=== PATIENT | female | born 1955 | race Caucasian/White ===

== ENCOUNTER 2020-06-08 19:24 | Observation (INO) | payer SELFPAY ==
--- OUTSIDE RECORDS SUMMARY | 2020-06-08 19:26 | XMS REPORT | Continuity of Care Document ---
:1955 Author Organization [facility] t Address [address] [place] [address] Care Team Providers Name Role Phone Doctor Unassigned, Name Attending Clinician Unavailable Filippo Attending Clinician Clifford Mike MD Attending Clinician Meghan Ochoa MD Attending Clinician [phone] Emily Hong DO Attending Clinician Artie Echeverria Admitting Clinician Problems This patient has no known problems. Allergies, Adverse Reactions, Alerts This patient has no known allergies or adverse reactions. Medications This patient has no known medications. Procedures This patient has no known procedures. Encounters Start End Encounter Admission Attending Care Care Encounter Source Date/Time Date/Time Type Type Clinicians Facility Department ID 2020-01-17 2020-01-17 Orders Doctor NICHOLE [id number] 00:00:00 00:00:00 Only Unassigned, ASHLEY [id number] [place] [facility] [id number] 2020-01-01 2020-01-01 Transition Ree Barkley [id number] 00:00:00 00:00:00 of Care Sarah Carvalho [id number] [place] [id number] 2019-12-27 2019-12-30 [facility] Tangela Mike [id number] 18:54:00 14:13:00 Encounter Lexy Ochoa [id number] [facility] [id number] 2019-07-27 2019-07-27 Emergency [facility] [id number] 16:26:45 18:20:00 Soila Espinosa [id number] [place] [id number] [place] [id number] Results This patient has no known results.
[2020-06-08] MEDS ORDERED: ALBUTEROL 2.5 MG/3 ML NEB SOL ONE (20:13)
[2020-06-08] MEDS ORDERED: IPRATROPIUM BROM 0.5MG/2.5ML ONE (20:13)
[2020-06-08] MEDS ORDERED: METHYLPREDNISOLONE 125 MG INJ ONE (20:14)
[2020-06-08 20:17] LABS: Arterial Blood Carboxyhemoglob 6.1 % (0-1.5); Blood Gas Oxyhemoglobin 84.1 % (94-97); Blood O2 Saturation 90.5 % (92-98.5)
--- NOTE | 2020-06-08 20:18 | RAD REPORT ---
EXAM DESCRIPTION: RAD - Chest Single View - 06/08/2020 8:05 pm CLINICAL HISTORY: SOB COMPARISON: Portable January 2017 TECHNIQUE: AP portable chest image was obtained 06/08/2020 8:05 pm . FINDINGS: Fibrotic lung changes are present similar to comparison. No dense mass or consolidations s een. Severity chronic disease could mask a mild edema or infiltrate. No failure or volume overload. Heart and vasculature are normal. No pneumothorax present. Costophrenic angle blunting is present si milar to comparison. Minimal pleural effusion could be masked by the chronic pleural disease. No acut e bony abnormality seen. No acute aortic findings suspected. IMPRESSION: COPD changes are present not substantially different from 2017. Severity of chronic disease could mask early interstitial edema or infiltrate. Minimal pleural effusi ons could also be masked.
[2020-06-08 20:28] LABS: Basophils % 0.4 % (0-1.3); Hematocrit 44.2 % (36.0-45.0); Lymphocytes % 26.3 % (15.3-44.8); MPV 8.1 fL (7.6-11.3); RBC Red Blood Cell Count 4.77 M/uL (3.86-4.86)
[2020-06-08 20:43] LABS: ALT/SGPT 44 U/L (12-78); AST/SGOT 35 U/L (15-37); Albumin 3.6 g/dL (3.4-5.0); Alkaline Phosphatase 74 U/L (45-117); BUN Blood Urea Nitrogen 16 mg/dL (7-18); Bicarbonate 31 mmol/L (21-32); Bilirubin Direct < 0.1 mg/dL (0-0.2); Bilirubin Total 0.3 mg/dL (0.2-1.0); Glucose Level 102 mg/dL (74-106); Magnesium 2.2 mg/dL (1.8-2.4); NT PRO-BNP 750 pg/mL (<125); Potassium 4.1 mmol/L (3.5-5.1); Protein, Total 7.1 g/dL (6.4-8.2); Sodium Level 143 mmol/L (136-145); Troponin (Emerg Dept Use Only) < 0.02 ng/mL (0.0-0.045)
[2020-06-08 21:00] LABS: Protime INR 0.99
--- NOTE | 2020-06-08 21:04 | ER ---
Nurse's Notes [facility] Name: Dalia Reyes Age: 64 yrs Sex: Female : 1955 Arrival Date: 06/08/2020 Time: 19:28 Bed 6 Private MD: Diagnosis: COPD Exacerbation;Hypoxemia Presentation: 06/08 19:28 Chief complaint: EMS states: Called for shortness of breath for the past few days, no lp1 relief with breathing treatments at home, per family pulse ox of 66% prior to EMS arrival; EMS administered albuterol/atrovent tx x3, Solu-Medrol 125mg IV with relief. Coronavirus screen: Client denies travel out of the [place] in the last 14 days. At this time, the client does not indicate any symptoms associated with coronavirus-19. Ebola Screen: No symptoms or risks identified at this time. Initial Sepsis Screen: Does the patient meet any 2 criteria? No. Patient's initial sepsis screen is negative. Does the patient have a suspected source of infection? No. Patient's initial sepsis screen is negative. Risk Assessment: Do you want to hurt yourself or someone else? Patient reports no desire to harm self or others. Note Patient is O2 dependent. Onset of symptoms was June 08, 2020. Care prior to arrival: IV initiated. 22 GA, in the right wrist, Med neb given. Oxygen administered. via a nebulizer mask. 19:28 Method Of Arrival: EMS: [facility] 19:28 Acuity: CONSTANTINO 3 lp1 Triage Assessment: 19:52 General: Appears uncomfortable. Respiratory: Reports shortness of breath the patient ea has mild shortness of breath. 21:18 Respiratory: Onset: The symptoms/episode began/occurred. ca1 Historical: - Allergies: 19:32 No Known Allergies; lp1 - Home Meds: 19:32 Albuterol Inhl [Active]; lp1 - PMHx: 19:32 COPD; Hypertension; lp1 - PSHx: 19:32 Heart stents; lp1 - Immunization history:: Adult Immunizations up to date. - Social history:: Smoking status: Patient reports the use of cigarette tobacco products, smokes two packs cigarettes per day. Screenin:50 Abuse screen: Denies threats or abuse. Nutritional screening: No deficits noted. ea Tuberculosis screening: No symptoms or risk factors identified. Fall Risk IV access (20 points). Assessment: 19:51 General: Appears in no apparent distress. Behavior is calm, cooperative, appropriate ea for age. Pain: Denies pain. Neuro: Level of Consciousness is awake, alert, obeys commands, Oriented to person, place, time. Cardiovascular: Patient's skin is warm and dry. Respiratory: Airway is patent Respiratory effort is even, labored, Respiratory pattern is regular, symmetrical. Derm: Skin is pink, warm \T\ dry. 21:14 Reassessment: Patient appears in no apparent distress at this time. Patient and/or ca1 family updated on plan of care and expected duration. Pain level reassessed. Patient is alert, oriented x 3, equal unlabored respirations, skin warm/dry/pink. Cardiovascular: Rhythm is sinus rhythm. Respiratory: Breath sounds with wheezes bilaterally. 22:44 Reassessment: Patient and/or family updated on plan of care and expected duration. Pain ea level reassessed. Patient is alert, oriented x 3, equal unlabored respirations, skin warm/dry/pink. Pt admitted to fourth floor, pt left ED via stretcher per tech with O2 per nasal cannula , pt tolerating well. Vital Signs: 19:28 BP 141 / 77; Pulse 95; Resp 20; Temp 97.7(O); Pulse Ox 95% on 2 lpm NC; Weight 63.5 kg lp1 (R); 21:00 BP 134 / 88; Pulse 73; Resp 15 S; Pulse Ox 96% on 2 lpm NC; ca1 22:30 BP 107 / 61; Pulse 68; Resp 20; Temp 97.8; Pulse Ox 92% on 2 lpm NC; ea ED Course: 19:28 Patient arrived in ED. lp1 19:30 Wilfred Navarrete MD is Attending Physician. mh7 19:31 Triage completed. lp1 19:32 Arm band placed on. lp1 19:35 Maintain EMS IV. Dressing intact. Good blood return noted. Site clean \T\ dry. Gauge \T\ ca 1 site: 22G RFA. 19:50 Caitlyn Long RN is Primary Nurse. ea 19:51 Patient has correct armband on for positive identification. Placed in gown. Bed in low ea position. Call light in reach. Side rails up X2. 20:00 Initial lab(s) drawn, by me, sent to lab. ca1 20:03 XRAY Chest (1 view) In Process Unspecified. EDMS 21:03 Nate Sterling DO is Hospitalizing Provider. [facility] 21:59 No provider procedures requiring assistance completed. Patient admitted, IV remains in ea place. Administered Medications: 20:01 Drug: SOLU-Medrol (methylPrednisoLONE) 125 mg Route: IVP; Site: right forearm; ea 21:52 Follow up: Response: No adverse reaction; Marked relief of symptoms ca1 20:09 Drug: Albuterol - atroVENT (ipratropium) (3:1) (2.5 mg - 0.5 mg) 3 ml Route: Nebulizer; ea 21:52 Follow up: Response: No adverse reaction; Marked relief of symptoms ca1 20:58 Drug: Nicoderm CQ 21 mg/24 hr 1 patches Route: Transdermal; Site: affected area; ea 21:52 Follow up: Response: No adverse reaction ca1 21:06 Drug: Magnesium Sulfate 1 grams Route: IVPB; Infused Over: 1 hrs; Site: right forearm; rr5 Outcome: 21:04 Decision to Hospitalize by Provider. [facility] 21:59 Instructed on the need for admit. ea 22:43 Admitted to Med/surg accompanied by tech, room 423, with oxygen, with chart, Report rr5 called to Receiving nurse on fourth floor 22:43 Condition: stable 22:45 Patient left the ED. ea Signatures: Dispatcher [employer] EDMS Alma Delia Birch RN RN lp1 Caitlyn Long RN RN ea Roque, Raymond, RN RN rr5 Dinah Portillo RN RN ca1 Holmes, Maurice, MD MD 7
--- NOTE | 2020-06-08 21:04 | EDPHYS ---
Physician Documentation [facility] Name: Dalia Reyes Age: 64 yrs Sex: Female : 1955 Arrival Date: 06/08/2020 Time: 19:28 Bed 6 Private MD: ED Physician Wilfred Navarrete HPI: 06/08 19:52 This 64 yrs old Female presents to ER via EMS with complaints of Shortness Of mh7 Breath. 19:52 The patient has shortness of breath at rest, with light activity. Onset: The mh7 symptoms/episode began/occurred 3 day(s) ago. Duration: The symptoms are continuous, and are steadily getting worse. The patient's shortness of breath is aggravated by coughing, light activity, is alleviated by nebulizer treatment, application of supplemental oxygen. Associated signs and symptoms: Pertinent positives: chest pain, productive cough, Pertinent negatives: non-productive cough, diaphoresis, dizziness, fever, hemoptysis, loss of consciousness, nausea, numbness in extremities, visual changes, vomiting. Severity of symptoms: At their worst the symptoms were moderate last night, in the emergency department the symptoms are unchanged. Historical: - Allergies: 19:32 No Known Allergies; lp1 - Home Meds: 19:32 Albuterol Inhl [Active]; lp1 - PMHx: 19:32 COPD; Hypertension; lp1 - PSHx: 19:32 Heart stents; lp1 - Immunization history:: Adult Immunizations up to date. - Social history:: Smoking status: Patient reports the use of cigarette tobacco products, smokes two packs cigarettes per day. ROS: 19:52 Constitutional: Negative for fever, chills, and weight loss, Eyes: Negative for injury, mh7 pain, redness, and discharge, ENT: Negative for injury, pain, and discharge, Neck: Negative for injury, pain, and swelling, Abdomen/GI: Negative for abdominal pain, nausea, vomiting, diarrhea, and constipation, Back: Negative for injury and pain, : Negative for injury, bleeding, discharge, and swelling, MS/Extremity: Negative for injury and deformity, Skin: Negative for injury, rash, and discoloration, Neuro: Negative for headache, weakness, numbness, tingling, and seizure, Psych: Negative for depression, anxiety, suicide ideation, homicidal ideation, and hallucinations, Allergy/Immunology: Negative for hives, rash, and allergies, Endocrine: Negative for neck swelling, polydipsia, polyuria, polyphagia, and marked weight changes, Hematologic/Lymphatic: Negative for swollen nodes, abnormal bleeding, and unusual bruising. Exam: 19:52 Constitutional: This is a well developed, well nourished patient who is awake, alert, mh7 and in no acute distress. Head/Face: Normocephalic, atraumatic. Eyes: Pupils equal round and reactive to light, extra-ocular motions intact. Lids and lashes normal. Conjunctiva and sclera are non-icteric and not injected. Cornea within normal limits. Periorbital areas with no swelling, redness, or edema. Neck: Trachea midline, no thyromegaly or masses palpated, and no cervical lymphadenopathy. Supple, full range of motion without nuchal rigidity, or vertebral point tenderness. No Meningismus. Chest/axilla: Normal chest wall appearance and motion. Nontender with no deformity. No lesions are appreciated. Cardiovascular: Regular rate and rhythm with a normal S1 and S2. No gallops, murmurs, or rubs. Normal PMI, no JVD. No pulse deficits. 19:52 Abdomen/GI: Soft, non-tender, with normal bowel sounds. No distension or tympany. No guarding or rebound. No evidence of tenderness throughout. Back: No spinal tenderness. No costovertebral tenderness. Full range of motion. Skin: Warm, dry with normal turgor. Normal color with no rashes, no lesions, and no evidence of cellulitis. MS/ Extremity: Pulses equal, no cyanosis. Neurovascular intact. Full, normal range of motion. Neuro: Awake and alert, GCS 15, oriented to person, place, time, and situation. Cranial nerves II-XII grossly intact. Motor strength 5/5 in all extremities. Sensory grossly intact. Cerebellar exam normal. Normal gait. Psych: Awake, alert, with orientation to person, place and time. Behavior, mood, and affect are within normal limits. 19:52 Respiratory: the patient does not display signs of respiratory distress, Respirations: prolonged exhalation, that is mild, Breath sounds: rhonchi, that are mild, are scattered, wheezing: expiratory that is moderate, is heard diffusely, Respiratory rate: 20 Vital Signs: 19:28 BP 141 / 77; Pulse 95; Resp 20; Temp 97.7(O); Pulse Ox 95% on 2 lpm NC; Weight 63.5 kg lp1 (R); 21:00 BP 134 / 88; Pulse 73; Resp 15 S; Pulse Ox 96% on 2 lpm NC; ca1 22:30 BP 107 / 61; Pulse 68; Resp 20; Temp 97.8; Pulse Ox 92% on 2 lpm NC; ea MDM: 21:02 Differential diagnosis: Anemia Anxiety Reaction asthma, Bronchitis CHF exacerbation, 7 Chronic Obstructive Pulmonary Disease Myocardial Infarction pneumonia, Pneumothorax Psychogenic pulmonary edema. Data reviewed: vital signs, nurses notes, old medical records, lab test result(s), cardiac enzymes, CBC, electrolytes, EKG, radiologic studies, plain films. Data interpreted: Pulse oximetry: on 3L(s) per nasal canula, is 95 %. Interpretation: acceptable. Counseling: I had a detailed discussion with the patient and/or guardian regarding: the historical points, exam findings, and any diagnostic results supporting the discharge/admit diagnosis, the presence of at least one elevated blood pressure reading (>120/80) during this emergency department visit, lab results, radiology results, the need for further work-up and treatment in the hospital. 21:04 Patient medically screened. [facility] 21:04 Response to treatment: the patient's symptoms have mildly improved after treatment. [facility] 06/08 19:41 Order name: Basic Metabolic Panel; Complete Time: 21:02 [facility] 06/08 19:41 Order name: CBC with Diff; Complete Time: 20:33 [facility] 06/08 19:41 Order name: LFT's; Complete Time: 21:02 [facility] 06/08 19:41 Order name: Magnesium; Complete Time: 21:02 [facility] 06/08 19:41 Order name: NT PRO-BNP; Complete Time: 21:02 [facility] 06/08 19:41 Order name: PT-INR; Complete Time: 21:02 [facility] 06/08 19:41 Order name: Troponin (emerg Dept Use Only); Complete Time: 21:02 [facility] 06/08 19:41 Order name: XRAY Chest (1 view); Complete Time: 20:27 [facility] 06/08 19:55 Order name: Arterial Blood Gas [facility] 06/08 19:55 Order name: ABG Arterial Blood Gas; Complete Time: 20:27 [facility] 06/08 21:28 Order name: COVID-19/FLU A+B EDND 06/08 19:41 Order name: EKG; Complete Time: 19:42 7 06/08 19:41 Order name: Cardiac monitoring; Complete Time: 19:54 7 06/08 19:41 Order name: EKG - Nurse/Tech; Complete Time: 19:54 7 06/08 19:41 Order name: IV Saline Lock; Complete Time: 19:54 7 06/08 19:41 Order name: Labs collected and sent; Complete Time: 19:54 7 06/08 19:41 Order name: O2 Per Protocol; Complete Time: 19:54 7 06/08 19:41 Order name: O2 Sat Monitoring; Complete Time: 19:54 mh7 Administered Medications: 20:01 Drug: SOLU-Medrol (methylPrednisoLONE) 125 mg Route: IVP; Site: right forearm; ea 21:52 Follow up: Response: No adverse reaction; Marked relief of symptoms ca1 20:09 Drug: Albuterol - atroVENT (ipratropium) (3:1) (2.5 mg - 0.5 mg) 3 ml Route: Nebulizer; ea 21:52 Follow up: Response: No adverse reaction; Marked relief of symptoms ca1 20:58 Drug: Nicoderm CQ 21 mg/24 hr 1 patches Route: Transdermal; Site: affected area; ea 21:52 Follow up: Response: No adverse reaction ca1 21:06 Drug: Magnesium Sulfate 1 grams Route: IVPB; Infused Over: 1 hrs; Site: right forearm; rr5 Disposition: 06/08/20 21:04 Hospitalization ordered by Nate Sterling for Inpatient Admission. Preliminary diagnosis are COPD Exacerbation, Hypoxemia. - Bed requested for Telemetry/MedSurg (Inpatient). - Status is Inpatient Admission. ea - Condition is Stable. - Problem is an acute exacerbation. - Symptoms have improved. Signatures: Dispatcher [employer] EDMS Alma Delia Birch, RN RN lp1 Dev Salcido, INSTRUMENT MAN-C INSTRUMENT MAN-Cla1 Louise Hinojosa RN SIDDHARTH Caitlyn Long RN RN ea Roque, Raymond RN RN rr5 Wilfred Navarrete MD MD 7 Dinah Portillo RN ca1 Corrections: (The following items were deleted from the chart) 20:37 19:42 Influenza Screen (A \T\ B)+BA.LAB.BRZ ordered. EDND EDMS 20:38 19:42 CORONAVIRUS+MR.LAB.BRZ ordered. EDND EDMS 21:42 21:04 Hospitalization Ordered by Nate Sterling DO for Inpatient Admission. Preliminary cg diagnosis is COPD Exacerbation; Hypoxemia. Bed requested for Telemetry/MedSurg (Inpatient). Status is Inpatient Admission. Condition is Stable. Problem is an acute exacerbation. Symptoms have improved. [facility] 22:45 21:42 06/08/2020 21:04 Hospitalization Ordered by Nate Sterling DO for Inpatient ea Admission. Preliminary diagnosis is COPD Exacerbation; Hypoxemia. Bed requested for Telemetry/MedSurg (Inpatient). Status is Inpatient Admission. Condition is Stable. Problem is an acute exacerbation. Symptoms have improved. cg
[2020-06-08] MEDS ORDERED: NICOTINE 21 MG/PAT TD ONE (21:13)
[2020-06-08] MEDS ORDERED: MAGNESIUM SULFATE 1 gm IVPB 1 GM/100 ML BAG IV ONE (21:19)
[2020-06-08 21:28] LABS: SARS-COV-2 RT PCR NEGATIVE (NEGATIVE)
--- NOTE | 2020-06-08 21:34 | P.HP ---
Certification for Inpatient Patient admitted to: Observation With expected LOS: <2 Midnights Patient will require the following post-hospital care: None Practitioner: I am a practitioner with admitting privileges, knowledge of patient current condition, hospital course, and medical plan of care. Services: Services provided to patient in accordance with Admission requirements found in Title 42 Section 412.3 of the Code of Federal Regulations Patient History Date of Service: 06/08/20 Reason for admission: COPD exacerbation History of Present Illness: 64-year-old female history of COPD on home oxygen, hypertension, hyperlipidemia, diabetes mellitus type 2, depression who presents emergency department for shortness of breath. Patient reports that she has had increasing shortness of breath over the course of last few days, noted to have expiratory wheezing on exam, given albuterol plus Atrovent nebs by EMS in the ER as well as IV steroids, patient still dyspneic with expiratory wheezing, ED provider wishes to admit for further evaluation and management of COPD exacerbation. Allergies No Known Allergies Allergy (Unverified 01/20/17 20:18) Home Medications: Albuterol Sulfate 2.5 mg IH BID PRN 01/21/17 Albuterol Sulfate [Proair Hfa] 8.5 gm IH TID PRN #1 hfa.aer.ad 01/22/17 Fluticasone/Salmeterol [Airduo Respiclick 113-14 Mcg] 1 each IH BID #1 aer.pow.ba 01/22/17 Metoprolol Succinate [Toprol Xl*] 25 mg PO BID 6AM 6PM #60 tab 01/22/17 Nicotine [Nicoderm*] 21 mg TD DAILY PRN #30 patch.td24 01/22/17 Tiotropium [Spiriva Handihaler*] 1 sprays IH DAILY #1 inh 01/22/17 buPROPion HCL [Bupropion HCl] 75 mg PO DAILY #30 tablet 01/22/17 predniSONE [Deltasone*] 10 mg PO SEECOM #15 tab 01/22/17 - Past Medical/Surgical History Diabetic: No -: COPD -: HTN -: Diabetes mellitus type 2 -: CAD -: Depression -: Psychosocial/ Personal History: Patient is retired, lives with her daughter - Family History Father History Unknown: Yes Notes: Patient is adopted - Social History Smoking Status: Heavy Tobacco smoker (>10 cigarettes/day) Counseled patient to stop smoking for: less than 10 minutes Alcohol use: Yes CD- Drugs: No Caffeine use: Yes Place of Residence: Home Review of Systems 10-point ROS is otherwise unremarkable Respiratory: Cough, Shortness of Breath, SOB with Excertion, Wheezing, As per HPI Physical Examination - Physical Exam General: Alert, In no apparent distress, Oriented x3 HEENT: Atraumatic, PERRLA, Mucous membr. moist/pink Neck: Supple, 2+ carotid pulse no bruit, No LAD Respiratory: Clear to auscultation bilaterally, Normal air movement, Expiratory wheezes (Bilaterally) Cardiovascular: Regular rate/rhythm, Normal S1 S2 Gastrointestinal: Normal bowel sounds, No tenderness Musculoskeletal: No tenderness Integumentary: No rashes Neurological: Normal speech, Normal strength at 5/5 x4 extr, Normal tone, Normal affect - Studies Laboratory Data (last 24 hrs) 06/08/20 19:55: PT 11.4, INR 0.99 06/08/20 19:55: WBC 7.50, Hgb 15.2 H, Hct 44.2, Plt Count 242 06/08/20 19:55: Sodium 143, Potassium 4.1, BUN 16, Creatinine 0.65, Glucose 102, Magnesium 2.2, Total Bilirubin 0.3, AST 35, ALT 44, Alkaline Phosphatase 74 Assessment and Plan - Plan Assessment Acute on chronic hypoxic respiratory failure secondary to COPD with exacerbation-on home oxygen Diabetes mellitus type 2 Hypertension Hyperlipidemia History of CAD Plan Acute on chronic hypoxic respiratory failure secondary to COPD with exacerbation-on home oxygen: Continue scheduled nebs, IV steroids, inhalers, given IV magnesium. Patient is stable at this time, requiring 2-3 L per nasal cannula which she does have the whole although she is still significantly short of breath. History clinical improvement in the next 24 hr. DVT prophylaxis is Lovenox 40 mg subcutaneous once daily. Diabetes mellitus type 2: A.c. hs Accu-Chek, sliding scale insulin. A1c with morning lab Hypertension: Continue home meds Hyperlipidemia: Continue home meds History of CAD: Stable continue home meds Discharge Plan: Home Plan to discharge in: 24 Hours - Advance Directives Does patient have a Living Will: No Does patient have a Durable POA for Healthcare: No - Code Status/Comfort Care Code Status Assessed: Yes (Full code) Critical Care: No Time Spent Managing Pts Care (In Minutes): 55
[2020-06-08] MEDS ORDERED: ONDANSETRON 4 MG/2 ML VIAL IV PRN (23:09)
[2020-06-08 23:37] VITALS: BMI 22.6
[2020-06-09] MEDS: METHYLPREDNISOLONE 125 MG INJ IV SCH ×2 (01:07→09:00)
[2020-06-09] MEDS: IPRATROPIUM BROM 0.5MG/2.5ML NEB SCH ×2 (01:57→07:35)
[2020-06-09] MEDS: ALBUTEROL 2.5 MG/3 ML NEB SOL NEB PRN ×2 (01:57→07:35)
[2020-06-09 02:29] VITALS: O2SAT 94
[2020-06-09] MEDS ORDERED: ALBUTEROL INHALER 60 PUFF/8 GM IH PRN (04:46)
[2020-06-09] MEDS ORDERED: NICOTINE 21 MG/PAT TD PRN (04:46)
[2020-06-09 05:03] LABS: Urine Appearance CLEAR (Clear); Urine Bilirubin NEGATIVE (Negataive); Urine Blood NEGATIVE (Negative); Urine Color YELLOW (Yellow); Urine Glucose TRACE (Negative); Urine Protein 1+ (Negative); Urine Specific Gravity 1.015 (1.005-1.030); Urine Urobilinogen 0.2 mg/dL (0.2-1.0)
[2020-06-09 05:04] LABS: Urine Microscopic Reflex ORDER UMIC
[2020-06-09 06:19] LABS: Urine Bacteria <20 /HPF (<20); Urine Mucus 1+ /HPF (NONE SEEN); Urine RBC <5 /HPF (NONE SEEN)
--- NOTE | 2020-06-09 07:13 | P.DS ---
Admission Date: 06/08/20 Discharge Date: 06/09/20 Primary Care Provider: SU Parker([place], [place]) Disposition: ROUTINE DISCHARGE Discharge Condition: GOOD Reason for Admission: COPD exacerbation Consultations: none Procedures: COVID: Negative CXR: Medical Problem List: Acute on chronic hypoxic respiratory failure secondary to COPD with exacerbation-on home oxygen Diabetes mellitus type 2 Hypertension Hyperlipidemia History of CAD Brief History of Present Illness: 64-year-old female history of COPD on home oxygen, hypertension, hyperlipidemia, diabetes mellitus type 2, depression who presents emergency department for shortness of breath. Patient reports that she has had increasing shortness of breath over the course of last few days, noted to have expiratory wheezing on exam, given albuterol plus Atrovent nebs by EMS in the ER as well as IV steroids, patient still dyspneic with expiratory wheezing. Patient admitted for further evaluation and treatment. Hospital Course: Patient presented with dyspnea secondary to acute on chronic hypoxic respiratory failure related to COPD exacerbation. Patient uses home oxygen. Patient was admitted for IV steroids. Patient improved. Patient reports previously taking Advair and Spiriva. This was switched to Anoro. She has to use prednisone from time to time for flareups. She was not able to get a Dosepak prior to this admission. She does not have a pipe threader at this time. At discharge patient without significant shortness of breath. Patient appropriate for discharge. At discharge patient will continue with home oxygen to maintain sats above 93%. Currently on 2 L per nasal cannula. At discharge she will continue with Anoro 1 puff daily and albuterol 2 puffs 4 times a day as needed. Patient will also continue with prednisone 20 mg 1 pill twice daily for 7 days then 1 pill once daily for 7 days. Recommend to establish care with pulmonology to further monitor and adjust her medication. COPD education provided. Tobacco cessation also provided. Recommend follow-up with PCP within 1 week to follow- up his hospitalization. Patient may require prednisone for additional flareups in the future. This can be further addressed by her PCP or pulmonology. Patient with diabetes mellitus type 2. Overall stable. At discharge she will continue with her medication of Metformin 500 mg 1 pill twice daily. Recommend to monitor blood sugars at least once daily. Recommend to maintain blood sugar less than 140 fasting and less than 200 and after meals. Further adjustment can be done by her PCP. Recommend recheck hemoglobin A1c every 3 months to monitor her progress. Follow-up with PCP to monitor her progress. Patient with history of hypertension. At discharge she will continue with her medication metoprolol 25 mg 1 pill twice daily. Recommend to monitor blood pressure daily. Recommend to maintain blood pressure less than 130/80. Hold medication if blood pressure systolic less than 110 or heart rate less than 60. Follow-up with PCP to further monitor and adjust medication. Patient with hyperlipidemia. At discharge patient will continue with Lipitor 80 mg daily Patient with history of CAD. At discharge she will continue with Plavix 75 mg daily. Patient with history of depression with anxiety. At discharge she will continue with her medications including buspirone 7.5 mg 1 pill twice daily, Lamictal 100 mg 1 pill twice daily, trazodone 100 mg at bedtime and fluoxetine 20 mg daily. Recommend follow-up with psychiatry or her PCP to further monitor and adjust medication. Patient with seasonal allergies. At discharge she will continue with Claritin 10 mg daily. Patient may also benefit with Flonase 1 spray per nostril twice daily. Patient with tobacco abuse. Tobacco cessation addressed in detail. Recommend to continue nicotine patch daily. This can be further monitored and adjusted by her PCP. Vital Signs/Physical Exam: Temp Pulse Resp BP Pulse Ox 97.6 F 89 16 99/53 L 95 06/09/20 04:00 06/09/20 04:00 06/09/20 04:00 06/09/20 04:00 06/09/20 04:00 General: Alert, In no apparent distress, Oriented x3, Cooperative HEENT: Atraumatic Neck: Supple Respiratory: Clear to auscultation bilaterally, Normal air movement Cardiovascular: Normal pulses, Regular rate/rhythm Gastrointestinal: Normal bowel sounds, No ascites Integumentary: No tenderness/swelling Neurological: Normal speech, Normal strength at 5/5 x4 extr, Normal tone Laboratory Data at Discharge: WBC 7.50 K/uL (4.3-10.9) 06/08/20 19:55 Hgb 15.2 g/dL (12.0-15.0) H 06/08/20 19:55 Hct 44.2 % (36.0-45.0) 06/08/20 19:55 Plt Count 242 K/uL (152-406) 06/08/20 19:55 PT 11.4 SECONDS (9.5-12.5) 06/08/20 19:55 INR 0.99 06/08/20 19:55 Sodium 143 mmol/L (136-145) 06/08/20 19:55 Potassium 4.1 mmol/L (3.5-5.1) 06/08/20 19:55 BUN 16 mg/dL (7-18) 06/08/20 19:55 Creatinine 0.65 mg/dL (0.55-1.3) 06/08/20 19:55 Glucose 102 mg/dL (74-106) 06/08/20 19:55 Magnesium 2.2 mg/dL (1.8-2.4) 06/08/20 19:55 Total Bilirubin 0.3 mg/dL (0.2-1.0) 06/08/20 19:55 AST 35 U/L (15-37) 06/08/20 19:55 ALT 44 U/L (12-78) 06/08/20 19:55 Alkaline Phosphatase 74 U/L (45-117) 06/08/20 19:55 Home Medications: Albuterol Sulfate 2.5 mg IH BID PRN 01/21/17 Albuterol Sulfate [Proair Hfa] 2 puff IH TID PRN #1 hfa.aer.ad 06/09/20 Atorvastatin Calcium [Lipitor] 80 mg PO BEDTIME 06/09/20 Buspirone HCl 7.5 mg PO BID 06/09/20 Clopidogrel Bisulfate [Plavix*] 75 mg PO DAILY 06/09/20 Fluoxetine HCl 20 mg PO 06/09/20 Lamotrigine [Lamictal] 100 mg PO BID 06/09/20 Loratadine 10 mg PO PRN 06/09/20 Metformin HCl 500 mg PO BID 06/09/20 Metoprolol Tartrate 25 mg PO Q12HR 06/09/20 Nicotine [Nicoderm*] 21 mg TD DAILY #30 patch.td24 06/09/20 Trazodone HCl 100 mg PO BEDTIME 06/09/20 Umeclidinium Brm/Vilanterol Tr [Anoro Ellipta 62.5-25 Mcg INH] 1 each IH DAILY #1 blst.w.dev 06/09/20 predniSONE [Prednisone] 20 mg PO SEECOM #21 tablet 06/09/20 New Medications: Umeclidinium Brm/Vilanterol Tr [Anoro Ellipta 62.5-25 Mcg INH] 1 each IH DAILY #1 blst.w.dev Nicotine [Nicoderm*] 21 mg TD DAILY #30 patch.td24 predniSONE [Prednisone] 20 mg PO SEECOM #21 tablet Albuterol Sulfate [Proair Hfa] 2 puff IH TID PRN #1 hfa.aer.ad PRN Reason: Shortness Of Breath Physician Discharge Instructions: Patient presented with dyspnea secondary to acute on chronic hypoxic respiratory failure related to COPD exacerbation. Patient uses home oxygen. Patient was admitted for IV steroids. Patient improved. Patient reports previously taking Advair and Spiriva. This was switched to Anoro. She has to use prednisone from time to time for flareups. She was not able to get a Dosepak prior to this admission. She does not have a pipe threader at this time. At discharge patient without significant shortness of breath. Patient appropriate for discharge. At discharge patient will continue with home oxygen to maintain sats above 93%. Currently on 2 L per nasal cannula. At discharge she will continue with Anoro 1 puff daily and albuterol 2 puffs 4 times a day as needed. Patient will also continue with prednisone 20 mg 1 pill twice daily for 7 days then 1 pill once daily for 7 days. Recommend to establish care with pulmonology to further monitor and adjust her medication. COPD education provided. Tobacco cessation also provided. Recommend follow-up with PCP within 1 week to follow- up his hospitalization. Patient may require prednisone for additional flareups in the future. This can be further addressed by her PCP or pulmonology. Patient with diabetes mellitus type 2. Overall stable. At discharge she will continue with her medication of Metformin 500 mg 1 pill twice daily. Recommend to monitor blood sugars at least once daily. Recommend to maintain blood sugar less than 140 fasting and less than 200 and after meals. Further adjustment can be done by her PCP. Recommend recheck hemoglobin A1c every 3 months to monitor her progress. Follow-up with PCP to monitor her progress. Patient with history of hypertension. At discharge she will continue with her medication metoprolol 25 mg 1 pill twice daily. Recommend to monitor blood pressure daily. Recommend to maintain blood pressure less than 130/80. Hold medication if blood pressure systolic less than 110 or heart rate less than 60. Follow-up with PCP to further monitor and adjust medication. Patient with hyperlipidemia. At discharge patient will continue with Lipitor 80 mg daily Patient with history of CAD. At discharge she will continue with Plavix 75 mg daily. Patient with history of depression with anxiety. At discharge she will continue with her medications including buspirone 7.5 mg 1 pill twice daily, Lamictal 100 mg 1 pill twice daily, trazodone 100 mg at bedtime and fluoxetine 20 mg daily. Recommend follow-up with psychiatry or her PCP to further monitor and adjust medication. Patient with seasonal allergies. At discharge she will continue with Claritin 10 mg daily. Patient may also benefit with Flonase 1 spray per nostril twice daily. Patient with tobacco abuse. Tobacco cessation addressed in detail. Recommend to continue nicotine patch daily. This can be further monitored and adjusted by her PCP. Diet: ADA Activity: Ad darby Followup: Unknown,U [Primary Care Provider] - Time spent managing pt's care (in minutes): 55
[2020-06-09 07:28] LABS: Absolute Lymphocytes (CBC) 0.7 K/uL (0.7-4.9); Basophils % 0.2 % (0-1.3); Hematocrit 41.5 % (36.0-45.0); Lymphocytes % 7.9 % (15.3-44.8); MPV 8.4 fL (7.6-11.3); RBC Red Blood Cell Count 4.46 M/uL (3.86-4.86)
[2020-06-09] MEDS ORDERED: INSULIN -REGULAR HUMAN 50 UNIT/0.5 ML ML SQ SCH (07:30)
[2020-06-09 07:47] LABS: Albumin 3.3 g/dL (3.4-5.0); Bilirubin Total 0.4 mg/dL (0.2-1.0); Magnesium 2.2 mg/dL (1.8-2.4); Potassium 4.3 mmol/L (3.5-5.1); Protein, Total 6.7 g/dL (6.4-8.2); Thyroid Stimulating Hormone 0.317 uIU/mL (0.360-3.740)
[2020-06-09] MEDS ORDERED: METFORMIN HCL 500 MG TAB PO SCH (08:00)
[2020-06-09 08:48] LABS: Blood Morphology Comment NOT SEEN (NOT SEEN); Platelet Estimate ADEQ; White Blood Cell Scan OK (OK)
[2020-06-09] MEDS ORDERED: ENOXAPARIN 40 MG/0.4 ML SQ SCH (09:00)
[2020-06-09] MEDS ORDERED: TIOTROPIUM 5 SPRAYS/INHALER IH SCH (09:00)
[2020-06-09] MEDS ORDERED: lamoTRIgine 100 MG TAB PO SCH (09:00)
[2020-06-09] MEDS ORDERED: ALBUTEROL 2.5 MG/3 ML NEB SOL NEB PRN (09:00)
[2020-06-09] MEDS ORDERED: CLOPIDOGREL 75 MG TABLET PO SCH (09:00)
[2020-06-09] MEDS ORDERED: BUSPIRONE HCL 15 MG TABLET PO SCH (09:00)
[2020-06-09] MEDS ORDERED: FLUTICASONE IH SCH (09:00)
[2020-06-09] MEDS ORDERED: SALMETEROL IH SCH (09:00)
[2020-06-09] MEDS ORDERED: METOPROLOL TAR 25 MG TAB PO SCH (09:00)
[2020-06-09] MEDS ORDERED: LORATADINE 10 MG TAB PO SCH (09:00)
[2020-06-09 09:08] VITALS: BP 112/57; TEMP 98
[2020-06-09] MEDS ORDERED: TRAZODONE 50 MG TABLET PO SCH (21:00)
[2020-06-09] MEDS ORDERED: ATORVASTATIN 80 MG TAB PO SCH (21:00)
--- NOTE | 2020-06-10 09:21 | EKG ---
Test Date: 2020-06-08 Test Time: 19:33:26 [employer] Novelty: KERRY MEASUREMENT RESULTS: Intervals: Rate: 87 MI: 146 QRSD: 76 QT: 376 QTc: 452 [place]: P: 84 MI: 146 QRS: 76 T: 83 INTERPRETIVE STATEMENTS: Normal sinus rhythm Normal ECG Compared to ECG 01/20/2017 18:47:07 No significant changes Electronically Signed On 06-10-20 09:17:31 CDT by Ramses Palmer
== END 2020-06-09 09:25 | disposition home or self-care (01) ==
LOC: ER 19:24 → ERHOLD 21:41 → 4TH 21:54
PROVIDERS: ADMIT Family Medicine; ATTEND Family Medicine
DX: J44.1 Chronic obstructive pulmonary disease with (acute) exacerbation (principal); J96.21 Acute and chronic respiratory failure with hypoxia; Z99.81 Dependence on supplemental oxygen; E11.9 Type 2 diabetes mellitus without complications; I10 Essential (primary) hypertension; E78.5 Hyperlipidemia, unspecified; Z20.822 Contact with and (suspected) exposure to COVID-19; I25.10 Atherosclerotic heart disease of native coronary artery without angina pectoris; F41.8 Other specified anxiety disorders; J30.2 Other seasonal allergic rhinitis; Z79.02 Long term (current) use of antithrombotics/antiplatelets; Z79.84 Long term (current) use of oral hypoglycemic drugs; F17.210 Nicotine dependence, cigarettes, uncomplicated
CPT/HCPCS: 0240U; 36415; 71045; 80048; 80053; 80076; 81003; 81015; 82805; 82947; 83036; 83735; 83880; 84439; 84443; 84484; 85025; 85610; 93005; 94640; 96374; 96375; 99285; G0378; J1650; J2930; J3475

== ENCOUNTER 2020-08-30 20:45 | Emergency (ER) | payer SELFPAY ==
--- OUTSIDE RECORDS SUMMARY | 2020-08-30 20:48 | XMS REPORT | Continuity of Care Document ---
:1955 Author Organization [facility] t Address [address] [place] [address] Care Team Providers Name Role Phone Doctor Unassigned, Name Attending Clinician Unavailable Filippo Attending Clinician Clifford Mike MD Attending Clinician Meghan Ochoa MD Attending Clinician [phone] Emily Hong DO Attending Clinician Artie Echeverria [...] ID 2020-01-17 2020-01-17 Orders Doctor NICHOLE [id number] 00:00:00 00:00:00 Only Unassigned, ASHLEY [id number] [place] [facility] [id number] 2020-01-01 2020-01-01 Transition Ree Barkley [id number] 00:00:00 00:00:00 of Care Sarah Carvalho [id number] [place] [id number] 2019-12-27 2019-12-30 [facility] Tangela Mike [id number]. [id number] 18:54:00 14:13:00 Encounter Lexy Ochoa [id number] [facility] [id number] 2019-07-27 2019-07-27 Emergency [facility] [id number] 16:26:45 18:20:00 Soila Espinosa [id number] [place] [id number] [place] [id number] Results This patient has no known results.
[2020-08-30 21:41] LABS: Absolute Lymphocytes (CBC) 1.3 K/uL (0.7-4.9); Basophils % 0.6 % (0-1.3); Hematocrit 41.1 % (36.0-45.0); Lymphocytes % 18.1 % (15.3-44.8); MPV 8.6 fL (7.6-11.3); RBC Red Blood Cell Count 4.44 M/uL (3.86-4.86)
[2020-08-30 21:50] LABS: Protime INR 0.99
--- NOTE | 2020-08-30 21:58 | RAD REPORT ---
EXAM DESCRIPTION: RAD - Chest Single View - 08/30/2020 9:45 pm CLINICAL HISTORY: DYSPNEA COMPARISON: Chest Single View dated 06/08/2020; Chest Single View dated 01/20/2017 FINDINGS: No evidence of edema or pneumonia. The heart size is within normal limits.No acute osseous abnormality. No significant pleural effusions or pneumothorax. Emphysematous changes with flattened hemidiaphragms. IMPRESSION: Emphysema without superimposed acute process.
[2020-08-30 22:04] LABS: ALT/SGPT 49 U/L (12-78); AST/SGOT 24 U/L (15-37); Albumin 3.6 g/dL (3.4-5.0); Alkaline Phosphatase 72 U/L (45-117); BUN Blood Urea Nitrogen 14 mg/dL (7-18); Bicarbonate 30 mmol/L (21-32); Bilirubin Direct 0.1 mg/dL (0-0.2); Bilirubin Total 0.4 mg/dL (0.2-1.0); Glucose Level 206 mg/dL (74-106); NT PRO-BNP 894 pg/mL (<125); Potassium 3.7 mmol/L (3.5-5.1); Protein, Total 6.8 g/dL (6.4-8.2); Sodium Level 138 mmol/L (136-145); Troponin (Emerg Dept Use Only) < 0.02 ng/mL (0.0-0.045)
--- NOTE | 2020-08-30 22:31 | ER ---
Nurse's Notes [facility] Name: Dalia Reyes Age: 64 yrs Sex: Female : 1955 Arrival Date: 08/30/2020 Time: 21:12 Bed 5 Private MD: Diagnosis: COPD/ Chronic obstructive pulmonary disease with (acute) exacerbation Presentation: 08/30 21:14 Chief complaint: EMS states: they were toned out for report of pt in respiratory bb distress pt O2 was 85% on 3 Lpm, tripoding. Coronavirus screen: difficulty breathing, Client presents with at least one sign or symptom that may indicate coronavirus-19. Standard/surgical mask placed on the client. Ebola Screen: No symptoms or risks identified at this time. Initial Sepsis Screen: Does the patient meet any 2 criteria? RR > 20 per min. No. Patient's initial sepsis screen is negative. Does the patient have a suspected source of infection? No. Patient's initial sepsis screen is negative. Risk Assessment: Do you want to hurt yourself or someone else? Patient reports no desire to harm self or others. Onset of symptoms was August 30, 2020. 21:14 Method Of Arrival: EMS: [facility] bb 21:14 Acuity: CONSTANTINO 3 bb 21:14 Care prior to arrival: Medication(s) given: Albuterol Neb x 1, Atrovent Neb x 1, Normal bb saline infusion, 250 mg solu-medrol 125 mg IV initiated. 20 GA, in the left wrist. Historical: - Allergies: 21:18 Benadryl; bb - Home Meds: 21:18 Albuterol Inhl [Active]; O2 [Active]; bb - PMHx: 21:18 COPD; Hypertension; bb - Immunization history:: Adult Immunizations Adult Immunizations up to date, Client reports having NOT received the Covid vaccine. - Social history:: Smoking status: Patient reports the use of cigarette tobacco products, smokes one-half pack cigarettes per day. Screenin:14 Abuse screen: Denies threats or abuse. Nutritional screening: No deficits noted. em Tuberculosis screening: No symptoms or risk factors identified. Fall Risk None identified. Assessment: 21:15 General: Appears in no apparent distress. comfortable, Behavior is calm, cooperative, em appropriate for age, Denies fever. Pain: Denies pain. Neuro: Level of Consciousness is awake, alert, obeys commands, Oriented to person, place, time, situation, Appropriate for age. Cardiovascular: Capillary refill < 3 seconds Patient's skin is warm and dry. Rhythm is sinus rhythm Chest pain is denied. Respiratory: Reports shortness of breath on exertion Airway is patent Respiratory effort is even, unlabored, Respiratory pattern is regular, symmetrical. GI: Abdomen is flat. Derm: Skin is intact, is healthy with good turgor, Skin is pink, warm \T\ dry. Musculoskeletal: Capillary refill < 3 seconds, Range of motion: intact in all extremities. 22:40 Reassessment: Patient appears in no apparent distress at this time. Patient and/or em family updated on plan of care and expected duration. Pain level reassessed. Patient is alert, oriented x 3, equal unlabored respirations, skin warm/dry/pink. 22:45 Reassessment: pt states she would not like to be admitted, pt is adamant on leaving. em 23:00 Reassessment: waiting for daughter to return with pt own O2 supply before being em discharged. Vital Signs: 21:14 BP 142 / 87; Pulse 90; Resp 22 S; Temp 98.1(TE); Pulse Ox 89% on R/A; Weight 63.5 kg bb (R); Height 5 ft. 6 in. (167.64 cm) (R); Pain 0/10; 22:45 BP 130 / 72; Pulse 74; Resp 22; Pulse Ox 96% 2 lpm ; em 21:14 Body Mass Index 22.60 (63.50 kg, 167.64 cm) bb ED Course: 21:12 Patient arrived in ED. em 21:14 Patient has correct armband on for positive identification. Placed in gown. Bed in low em position. Call light in reach. Side rails up X2. Adult w/ patient. monitoring engineer on. Pulse ox on. NIBP on. 21:14 Maintain EMS IV. Dressing intact. Good blood return noted. Site clean \T\ dry. Gauge \T\ em site: 20 L FA. 21:16 Triage completed. bb 21:18 Arm band placed on Patient placed in an exam room, on a stretcher, on oxygen. bb 21:36 Radu Sanz RN is Primary Nurse. em 21:42 Haily Esquivel FNP-C is [facility]. kb 21:42 Wilfred Navarrete MD is Attending Physician. kb 21:45 XRAY Chest (1 view) In Process Unspecified. EDMS 23:27 No provider procedures requiring assistance completed. IV discontinued, intact, em bleeding controlled, No redness/swelling at site. Pressure dressing applied. Administered Medications: 22:47 Discontinued: Magnesium Sulfate 1 grams IVPB once over 30 mins em 22:22 Drug: Magnesium Sulfate 1 grams Route: IVPB; Infused Over: 30 mins; Site: left forearm; em 23:08 Follow up: IV Status: Order to discontinue infusion; IV Intake: 10ml em Intake: 23:08 IV: 10ml; Total: 10ml. em Outcome: 22:30 Discharge ordered by . kb 23:27 Discharged to home via wheelchair, with family. em 23:27 Condition: improved 23:27 Discharge instructions given to patient, family, Instructed on discharge instructions, follow up and referral plans. medication usage, Demonstrated understanding of instructions, follow-up care, medications, Prescriptions given X 1. 23:29 Patient left the ED. em Signatures: Dispatcher [employer] EDMS Haily Esquivel FNP-C FNP-Ckb Munoz, Edgar, RN RN em Nikkie More, RN RN bb
--- NOTE | 2020-08-30 22:31 | EDPHYS ---
Physician Documentation [facility] Name: Dalia Reyes Age: 64 yrs Sex: Female : 1955 Arrival Date: 08/30/2020 Time: 21:12 Bed 5 Private MD: ED Physician Wilfred Navarrete HPI: 08/30 22:23 This 64 yrs old Female presents to ER via EMS with complaints of shortness of kb breath. 22:23 The patient has shortness of breath at rest, with light activity. Onset: The kb symptoms/episode began/occurred and became worse 3 day(s) ago. Duration: The symptoms are continuous. The patient's shortness of breath is aggravated by exertion, is alleviated by rest. Associated signs and symptoms: The patient has no apparent associated signs or symptoms. Severity of symptoms: At their worst the symptoms were moderate in the emergency department the symptoms are unchanged. The patient has not experienced similar symptoms in the past. The patient has not recently seen a physician. Patient reports increased shortness of breath over the last few days. Called EMS yesterday for symptoms but refused transport. States she decided to come today but is feeling better after EMS treatment.. Historical: - Allergies: 21:18 Benadryl; bb - Home Meds: 21:18 Albuterol Inhl [Active]; O2 [Active]; bb - PMHx: 21:18 COPD; Hypertension; bb - Immunization history:: Adult Immunizations Adult Immunizations up to date, Client reports having NOT received the Covid vaccine. - Social history:: Smoking status: Patient reports the use of cigarette tobacco products, smokes one-half pack cigarettes per day. ROS: 22:22 Constitutional: Negative for fever, chills, and weight loss. kb 22:22 Respiratory: Positive for dyspnea on exertion, shortness of breath, Negative for cough, hemoptysis, orthopnea, pleurisy, sputum production, wheezing. 22:22 All other systems are negative. Exam: 22:22 Constitutional: This is a well developed, well nourished patient who is awake, alert, kb and in no acute distress. Head/Face: Normocephalic, atraumatic. ENT: Moist Mucous membranes Cardiovascular: Regular rate and rhythm with a normal S1 and S2. No gallops, murmurs, or rubs. No pulse deficits. Abdomen/GI: Soft, non-tender. No distention Skin: Warm, dry with normal turgor. Normal color. MS/ Extremity: Pulses equal, no cyanosis. Neurovascular intact. Full, normal range of motion. Neuro: Awake and alert, GCS 15, oriented to person, place, time, and situation. Moves all extremities. Normal gait. Psych: Awake, alert, with orientation to person, place and time. Behavior, mood, and affect are within normal limits. 22:22 Respiratory: mild respiratory distress is noted, Respirations: labored breathing, that is mild, Breath sounds: wheezing: expiratory that is moderate, is heard in the left lower lobe and right lower lobe. Vital Signs: 21:14 BP 142 / 87; Pulse 90; Resp 22 S; Temp 98.1(TE); Pulse Ox 89% on R/A; Weight 63.5 kg bb (R); Height 5 ft. 6 in. (167.64 cm) (R); Pain 0/10; 22:45 BP 130 / 72; Pulse 74; Resp 22; Pulse Ox 96% 2 lpm ; em 21:14 Body Mass Index 22.60 (63.50 kg, 167.64 cm) bb MDM: 21:42 Patient medically screened. kb 22:20 Data reviewed: vital signs, nurses notes. Data interpreted: Pulse oximetry: on 4L(s) kb per nasal canula, is 96 %. Interpretation: normal. ED course: Discussed admission with patient. Patient does not want to be admitted at this time. States she feels comfortable now and is ready to get some rest. Patient has home oxygen and neb treatments at home to use. Patient has follow-up appointment with PCP on Wednesday. Patient states as long as her labs and x-ray are fine she does not want to stay in the hospital. Patient asked what the indication for admission would be. I informed patient that her O2 sats at home were 85% when EMS arrived. Patient daughter stated that is normal for patient intermittently. Daughter in agreement with patient to go home.. 22:30 Counseling: I had a detailed discussion with the patient and/or guardian regarding: the kb historical points, exam findings, and any diagnostic results supporting the discharge/admit diagnosis, lab results, radiology results, the need for outpatient follow up, a family practitioner, to return to the emergency department if symptoms worsen or persist or if there are any questions or concerns that arise at home. 08/30 21:15 Order name: Basic Metabolic Panel; Complete Time: 22:06 em 08/30 21:15 Order name: CBC with Diff; Complete Time: 22:01 em 08/30 21:15 Order name: LFT's; Complete Time: 22:06 em 08/30 21:15 Order name: Magnesium; Complete Time: 22:06 em 08/30 21:15 Order name: NT PRO-BNP; Complete Time: 22:06 em 08/30 21:15 Order name: PT-INR; Complete Time: 22:01 em 08/30 21:15 Order name: Troponin (emerg Dept Use Only); Complete Time: 22:06 em 08/30 21:15 Order name: XRAY Chest (1 view); Complete Time: 22:01 em 08/30 21:15 Order name: EKG; Complete Time: 21:16 em 08/30 21:15 Order name: Cardiac monitoring; Complete Time: 21:15 em 08/30 21:15 Order name: EKG - Nurse/Tech; Complete Time: 21:38 em 08/30 23:27 Order name: SARS-COV-2 RT PCR; Complete Time: 23:34 EDMS 08/30 21:15 Order name: IV Saline Lock; Complete Time: 21:15 em 08/30 21:15 Order name: Labs collected and sent; Complete Time: 21:38 em 08/30 21:15 Order name: O2 Per Protocol; Complete Time: 21:15 em 08/30 21:15 Order name: O2 Sat Monitoring; Complete Time: 21:15 em Administered Medications: 22:47 Discontinued: Magnesium Sulfate 1 grams IVPB once over 30 mins em 22:22 Drug: Magnesium Sulfate 1 grams Route: IVPB; Infused Over: 30 mins; Site: left forearm; em 23:08 Follow up: IV Status: Order to discontinue infusion; IV Intake: 10ml em Disposition Summary: 08/30/20 22:30 Discharge Ordered Location: Home kb Condition: Stable kb Diagnosis - COPD/ Chronic obstructive pulmonary disease with (acute) exacerbation kb Followup: kb - With: Emergency Department - When: As needed - Reason: Worsening of condition Followup: kb - With: Private Physician - When: 2 - 3 days - Reason: Recheck today's complaints, Continuance of care, Re-evaluation by your physician Discharge Instructions: - Discharge Summary Sheet kb - Chronic Obstructive Pulmonary Disease Exacerbation kb Forms: - Medication Reconciliation Form kb - Thank You Letter kb - Antibiotic Education kb - Prescription Opioid Use kb Prescriptions: - Prednisone 20 mg Oral Tablet - take 1 tablet by ORAL route once daily for 5 days; 5 tablet; Refills: 0, kb Product Selection Permitted Addendum: 09/01/2020 05:55 Co-signature as Attending Physician, Wilfred Navarrete MD. [facility] Signatures: Dispatcher [employer] Haily Chavez, COMMERCIAL MANAGEMENT ACCOUNTANT-C COMMERCIAL MANAGEMENT ACCOUNTANT-Radu Flores, RN RN Nikkie Balderas RN RN Wilfred Brooks MD MD [email or web address] Corrections: (The following items were deleted from the chart) 08/30 22:23 22:20 ED course: Discussed admission with patient. Patient does not want to be admitted kb at this time. States she feels comfortable now and is ready to get some rest. Patient has home oxygen and neb treatments at home to use. Patient has follow-up appointment with PCP on Wednesday. Patient states as long as her labs and x-ray are fine she does not want to stay in the hospital.. kb 22:25 22:21 CORONAVIRUS+MR.LAB.BRZ ordered. [facility]
[2020-08-30] MEDS ORDERED: Magnesium Sulfate 2gm IVPB 2 G/50 ML BAG IV ONE (22:34)
[2020-08-30 23:42] VITALS: TEMP 98.1
[2020-08-30 23:44] VITALS: BP 130/72; O2SAT 96
== END 2020-08-30 23:29 | disposition home or self-care (01) ==
LOC: ER 20:45
DX: J44.1 Chronic obstructive pulmonary disease with (acute) exacerbation (principal); I10 Essential (primary) hypertension; F17.210 Nicotine dependence, cigarettes, uncomplicated; Z91.048 Other nonmedicinal substance allergy status; Z20.822 Contact with and (suspected) exposure to COVID-19
CPT/HCPCS: 36415; 71045; 80048; 80076; 83735; 83880; 84484; 85025; 85610; 93005; 96365; 99285; J3475; U0003

== ENCOUNTER 2020-10-22 08:01 | Emergency (ER) | payer SELFPAY ==
--- OUTSIDE RECORDS SUMMARY | 2020-10-22 08:03 | XMS REPORT | Continuity of Care Document ---
:1955 Author Organization [facility] t Address [address] [place] [address] Care Team Providers Name Role Phone Doctor Unassigned, Name Attending Clinician Unavailable Filippo Attending Clinician Clifford Mike MD Attending Clinician Meghan Ochoa MD Attending Clinician [phone] Emily Hong DO Attending Clinician Artie Echeverria [...] ID 2020-01-17 2020-01-17 Orders Doctor NICHOLE [id number] 00:00:00 00:00:00 Only Unassigned, ASHLEY [id number] [place] [facility] [id number] 2020-01-01 2020-01-01 Transition Ree Barkley [id number] 00:00:00 00:00:00 of Care Sarah Carvalho [id number] [place] [id number] 2019-12-27 2019-12-30 [facility] Tangela Mike [id number] 18:54:00 14:13:00 Encounter Lexy Ochoa [id number] [facility] [id number] 2019-07-27 2019-07-27 Emergency [facility] [id number] 16:26:45 18:20:00 Soila Espinosa [id number] [place] [id number] [place] [id number] Results This patient has no known results.
[2020-10-22 09:11] LABS: Absolute Lymphocytes (CBC) 1.9 K/uL (0.7-4.9); Basophils % 0.6 % (0-1.3); Hematocrit 42.7 % (36.0-45.0); Lymphocytes % 26.1 % (15.3-44.8); MPV 8.1 fL (7.6-11.3); RBC Red Blood Cell Count 4.57 M/uL (3.86-4.86)
[2020-10-22 09:14] LABS: Protime INR 0.97
[2020-10-22 09:34] LABS: ALT/SGPT 29 U/L (12-78); AST/SGOT 16 U/L (15-37); Albumin 3.9 g/dL (3.4-5.0); Alkaline Phosphatase 67 U/L (45-117); BUN Blood Urea Nitrogen 14 mg/dL (7-18); Bicarbonate 32 mmol/L (21-32); Bilirubin Direct 0.1 mg/dL (0-0.2); Bilirubin Total 0.5 mg/dL (0.2-1.0); Glucose Level 311 mg/dL (74-106); Magnesium 1.9 mg/dL (1.8-2.4); NT PRO-BNP 598 pg/mL (<125); Potassium 3.5 mmol/L (3.5-5.1); Sodium Level 136 mmol/L (136-145); Troponin (Emerg Dept Use Only) < 0.02 ng/mL (0.0-0.045)
--- NOTE | 2020-10-22 10:04 | RAD REPORT ---
EXAM DESCRIPTION: RAD - Chest Single View - 10/22/2020 9:43 am CLINICAL HISTORY: COUGH Chest pain. COMPARISON: Chest Single View dated 08/30/2020; Chest Single View dated 06/08/2020; Chest Single View d ated 01/20/2017 FINDINGS: Portable technique limits examination quality. Mild interstitial lung opacities are present bilaterally likely representing viral infection. The hea rt is normal in size. No displaced fractures.
--- NOTE | 2020-10-22 10:52 | ER ---
Nurse's Notes [facility] Name: Dalia Reyes Age: 64 yrs Sex: Female : 1955 Arrival Date: 10/22/2020 Time: 08:02 Bed 8 Private MD: Diagnosis: COPD/ Chronic obstructive pulmonary disease, unspecified;Type 2 diabetes mellitus with hyperglycemia Presentation: 10/22 08:11 Chief complaint: Patient states: no electricity at her house for her oxygen aa5 concentrator, oxygen dependant at 3L NC. Pt also states "my blood sugar was 500 yesterday but I ran out of test strips to check it today". Pt reports she takes metformin. 08:11 Coronavirus screen: At this time, the client does not indicate any symptoms associated aa5 with coronavirus-19. Ebola Screen: Patient negative for fever greater than or equal to 101.5 degrees Fahrenheit, and additional compatible Ebola Virus Disease symptoms. Initial Sepsis Screen: Does the patient meet any 2 criteria? No. Patient's initial sepsis screen is negative. Does the patient have a suspected source of infection? No. Patient's initial sepsis screen is negative. Risk Assessment: Do you want to hurt yourself or someone else? Patient reports no desire to harm self or others. Onset of symptoms was October 2020. 08:11 Method Of Arrival: Wheelchair aa5 08:11 Acuity: CONSTANTINO 3 aa5 Historical: - Allergies: 08:11 NKDA; aa5 - PMHx: 08:11 COPD; Hypertension; Diabetes (non-insulin dependant); aa5 - PSHx: 08:11 heart stent; aa5 - Immunization history:: Adult Immunizations unknown. - Social history:: Smoking status: Patient reports the use of cigarette tobacco products, denies chronic smoking, but will smoke occasionally. Screenin:54 Abuse screen: Denies threats or abuse. Nutritional screening: No deficits noted. jd3 Tuberculosis screening: No symptoms or risk factors identified. Fall Risk Ambulatory Aid- None/Bed Rest/Nurse Assist (0 pts). Gait- Normal/Bed Rest/Wheelchair (0 pts) Mental Status- Oriented to own ability (0 pts). Total Coronel Fall Scale indicates No Risk (0-24 pts). Assessment: 08:52 General: Appears in no apparent distress. comfortable, Behavior is calm, cooperative, jd3 appropriate for age. Pain: Denies pain. Neuro: Level of Consciousness is awake, alert, obeys commands, Oriented to person, place, time, situation. Cardiovascular: Denies chest pain, Capillary refill < 3 seconds Patient's skin is warm and dry. Respiratory: Reports shortness of breath at rest shortness of breath related to no oxygen at home due to power outages Airway is patent Respiratory effort is even, unlabored, Respiratory pattern is regular, symmetrical. GI: No signs and/or symptoms were reported involving the gastrointestinal system. : No signs and/or symptoms were reported regarding the genitourinary system. EENT: No signs and/or symptoms were reported regarding the EENT system. Derm: Skin is intact, Skin is dry, Skin is normal, Skin temperature is warm. Musculoskeletal: No signs and/or symptoms reported regarding the musculoskeletal system. 09:55 Reassessment: Patient appears in no apparent distress at this time. No changes from jd3 previously documented assessment. Patient and/or family updated on plan of care and expected duration. Pain level reassessed. Patient is alert, oriented x 3, equal unlabored respirations, skin warm/dry/pink. 11:05 Reassessment: Patient appears in no apparent distress at this time. Patient and/or jd3 family updated on plan of care and expected duration. Pain level reassessed. Patient is alert, oriented x 3, equal unlabored respirations, skin warm/dry/pink. report understanding of discharge instructions, even and steady gait to old ER waiting area to charge oxygen regulator and wait for ride. denies pain or discomfort at this time. Vital Signs: 08:11 BP 149 / 80; Pulse 88; Resp 16 S; Temp 98.7(O); Pulse Ox 97% on 3 lpm NC; Weight 63.5 aa5 kg (R); Height 5 ft. 6 in. (167.64 cm) (R); 09:55 BP 141 / 78; Pulse 76; Resp 18 S; Pulse Ox 100% on R/A; jd3 11:07 BP 158 / 83; Pulse 75; Resp 19 S; Pulse Ox 97% on 2 lpm NC; jd3 08:11 Body Mass Index 22.60 (63.50 kg, 167.64 cm) aa5 ED Course: 08:02 Patient arrived in ED. am2 08:11 Arm band placed on Patient placed in an exam room, on a stretcher. aa5 08:13 David Harrell, RN is Primary Nurse. jd3 08:15 Iván Mendez MD is Attending Physician. [facility] 08:23 Triage completed. aa5 08:53 Inserted saline lock: 20 gauge in right antecubital area, using aseptic technique. jd3 Blood collected. 08:54 Patient has correct armband on for positive identification. Bed in low position. Call jd3 light in reach. Side rails up X 1. Pulse ox on. NIBP on. 09:43 XRAY Chest (1 view) In Process Unspecified. EDMS 10:51 Alonso Licona MD is Referral Physician. [facility] 11:06 No provider procedures requiring assistance completed. IV discontinued, intact, jd3 bleeding controlled, No redness/swelling at site. Pressure dressing applied. Administered Medications: 09:52 Drug: Xopenex (levalbuterol) 2.5 mg Route: Inhalation; ch5 10:50 Follow up: Response: No adverse reaction jd3 09:52 Drug: AtroVENT (ipratropium) Aerosol 0.5 mg Route: Inhalation; ch5 10:50 Follow up: Response: No adverse reaction jd3 09:55 Drug: LanTUS (insulin glargine) 30 units Route: Sub-Q; Site: abdomen; jd3 10:50 Follow up: Response: No adverse reaction jd3 Point of Care Testing: Blood Glucose: 08:20 Blood Glucose: 311 mg/dL; aa5 Ranges: Outcome: 10:51 Discharge ordered by . [facility] 11:07 Discharged to home ambulatory, with family. jd3 11:07 Condition: stable 11:07 Discharge instructions given to patient, Instructed on discharge instructions, follow up and referral plans. medication usage, Demonstrated understanding of instructions, follow-up care, medications, Prescriptions given X 1. 11:08 Patient left the ED. jd3 Signatures: Dispatcher [employer] EDMO Iván Mendez MD MD cha Calderon, Audri, RN RN aa5 Gracy Garcia am2 David Harrell RN SIDDHARTH jd3 Bear Vega RN RN ch5
--- NOTE | 2020-10-22 10:52 | EDPHYS ---
Physician Documentation [facility] Name: Dalia Reyes Age: 64 yrs Sex: Female : 1955 Arrival Date: 10/22/2020 Time: 08:02 Bed 8 Private MD: ED Physician Iván Mendez HPI: 10/22 09:24 This 64 yrs old Female presents to ER via Wheelchair with complaints of High italo Blood Sugar, oxygen dependant. 09:24 The patient or guardian reports hyperglycemia. Onset: The symptoms/episode italo began/occurred just prior to arrival, today, yesterday. Associated signs and symptoms: Pertinent positives: None. Pertinent negatives: None. Current symptoms: In the emergency department the patient's symptoms are unchanged from the initial presentation, despite home interventions. Historical: - Allergies: 08:11 NKDA; aa5 - PMHx: 08:11 COPD; Hypertension; Diabetes (non-insulin dependant); aa5 - PSHx: 08:11 heart stent; aa5 - Immunization history:: Adult Immunizations unknown. - Social history:: Smoking status: Patient reports the use of cigarette tobacco products, denies chronic smoking, but will smoke occasionally. ROS: 09:25 Constitutional: Negative for fever, chills, and weight loss, Eyes: Negative for injury, italo pain, redness, and discharge, ENT: Negative for injury, pain, and discharge, Neck: Negative for injury, pain, and swelling, Cardiovascular: Negative for chest pain, palpitations, and edema, Abdomen/GI: Negative for abdominal pain, nausea, vomiting, diarrhea, and constipation, Back: Negative for injury and pain, : Negative for injury, bleeding, discharge, and swelling, MS/Extremity: Negative for injury and deformity, Skin: Negative for injury, rash, and discoloration, Neuro: Negative for headache, weakness, numbness, tingling, and seizure, Psych: Negative for depression, anxiety, suicide ideation, homicidal ideation, and hallucinations, Allergy/Immunology: Negative for hives, rash, and allergies, Hematologic/Lymphatic: Negative for swollen nodes, abnormal bleeding, and unusual bruising. 09:25 Respiratory: Positive for cough, shortness of breath, at rest. 09:25 Endocrine: Positive for polydipsia, polyuria. Exam: 09:25 Constitutional: This is a well developed, well nourished patient who is awake, alert, italo and in no acute distress. Head/Face: Normocephalic, atraumatic. Eyes: Pupils equal round and reactive to light, extra-ocular motions intact. Lids and lashes normal. Conjunctiva and sclera are non-icteric and not injected. Cornea within normal limits. Periorbital areas with no swelling, redness, or edema. ENT: Nares patent. No nasal discharge, no septal abnormalities noted. Tympanic membranes are normal and external auditory canals are clear. Oropharynx with no redness, swelling, or masses, exudates, or evidence of obstruction, uvula midline. Mucous membranes moist. Neck: Trachea midline, no thyromegaly or masses palpated, and no cervical lymphadenopathy. Supple, full range of motion without nuchal rigidity, or vertebral point tenderness. No Meningismus. Chest/axilla: Normal chest wall appearance and motion. Nontender with no deformity. No lesions are appreciated. Cardiovascular: Regular rate and rhythm with a normal S1 and S2. No gallops, murmurs, or rubs. Normal PMI, no JVD. No pulse deficits. Respiratory: Lungs have equal breath sounds bilaterally, clear to auscultation and percussion. No rales, rhonchi or wheezes noted. No increased work of breathing, no retractions or nasal flaring. Abdomen/GI: Soft, non-tender, with normal bowel sounds. No distension or tympany. No guarding or rebound. No evidence of tenderness throughout. Back: No spinal tenderness. No costovertebral tenderness. Full range of motion. Skin: Warm, dry with normal turgor. Normal color with no rashes, no lesions, and no evidence of cellulitis. MS/ Extremity: Pulses equal, no cyanosis. Neurovascular intact. Full, normal range of motion. Neuro: Awake and alert, GCS 15, oriented to person, place, time, and situation. Cranial nerves II-XII grossly intact. Motor strength 5/5 in all extremities. Sensory grossly intact. Cerebellar exam normal. Normal gait. Psych: Awake, alert, with orientation to person, place and time. Behavior, mood, and affect are within normal limits. 09:25 Musculoskeletal/extremity: DVT Exam: No signs of deep vein thrombosis. no pain, no swelling, no tenderness, negative Homans' sign noted on exam, no appreciated bluish discoloration, no erythema, no increased warmth. 09:35 ECG was reviewed by the Attending Physician. [facility] Vital Signs: 08:11 BP 149 / 80; Pulse 88; Resp 16 S; Temp 98.7(O); Pulse Ox 97% on 3 lpm NC; Weight 63.5 aa5 kg (R); Height 5 ft. 6 in. (167.64 cm) (R); 09:55 BP 141 / 78; Pulse 76; Resp 18 S; Pulse Ox 100% on R/A; jd3 11:07 BP 158 / 83; Pulse 75; Resp 19 S; Pulse Ox 97% on 2 lpm NC; jd3 08:11 Body Mass Index 22.60 (63.50 kg, 167.64 cm) aa5 MDM: 08:16 Patient medically screened. [facility] 09:26 Data reviewed: vital signs, nurses notes, lab test result(s), EKG, radiologic studies, [facility] CT scan, plain films. Counseling: I had a detailed discussion with the patient and/or guardian regarding: the historical points, exam findings, and any diagnostic results supporting the discharge/admit diagnosis, the presence of at least one elevated blood pressure reading (>120/80) during this emergency department visit, lab results, radiology results, the need for outpatient follow up, for definitive care, an anesthesiologist attending. 10/22 08:24 Order name: Glucose, Ancillary Testing; Complete Time: 10:33 EDDE 10/22 08:35 Order name: Basic Metabolic Panel; Complete Time: 10:33 [facility] 10/22 08:35 Order name: CBC with Diff; Complete Time: 10:33 [facility] 10/22 08:35 Order name: LFT's; Complete Time: 10:33 [facility] 10/22 08:35 Order name: Magnesium; Complete Time: 10:33 [facility] 10/22 08:35 Order name: NT PRO-BNP; Complete Time: 10:33 [facility] 10/22 08:35 Order name: PT-INR; Complete Time: 10:33 [facility] 10/22 08:35 Order name: Troponin (emerg Dept Use Only); Complete Time: 10:33 [facility] 10/22 08:35 Order name: XRAY Chest (1 view); Complete Time: 10:33 [facility] 10/22 08:35 Order name: EKG; Complete Time: 08:36 [facility] 10/22 08:35 Order name: Cardiac monitoring; Complete Time: [facility] 10/22 08:35 Order name: EKG - Nurse/Tech; Complete Time: [facility] 10/22 08:35 Order name: IV Saline Lock; Complete Time: [facility] 10/22 08:35 Order name: Labs collected and sent; Complete Time: [facility] 10/22 08:35 Order name: O2 Per Protocol; Complete Time: [facility] 10/22 08:35 Order name: O2 Sat Monitoring; Complete Time: :52 [facility] EC:35 Rate is 72 beats/min. QRS Minetto is Normal. DC interval is normal. QRS interval is italo normal. QT interval is normal. No Q waves. T waves are Normal. No ST changes noted. Clinical impression: NSR w/ Non-specific ST/T Changes and No evidence of ischemia. Interpreted by me. Reviewed by me. Administered Medications: Drug: Xopenex (levalbuterol) 2.5 mg Route: Inhalation; ch5 10:50 Follow up: Response: No adverse reaction jd3 09:52 Drug: AtroVENT (ipratropium) Aerosol 0.5 mg Route: Inhalation; ch5 10:50 Follow up: Response: No adverse reaction jd3 09:55 Drug: LanTUS (insulin glargine) 30 units Route: Sub-Q; Site: abdomen; jd3 10:50 Follow up: Response: No adverse reaction jd3 Point of Care Testing: Blood Glucose: 08:20 Blood Glucose: 311 mg/dL; aa5 Ranges: Critical Glucose Levels:Adult <50 mg/dl or >400 mg/dl <40 mg/dl or >180 mg/dl Disposition Summary: 10/22/20 10:51 Discharge Ordered Location: Home italo Problem: new italo Symptoms: have improved italo Condition: Stable italo Diagnosis - COPD/ Chronic obstructive pulmonary disease, unspecified italo - Type 2 diabetes mellitus with hyperglycemia italo Followup: italo - With: Private Physician - When: 2 - 3 days - Reason: Recheck today's complaints, Continuance of care, Re-evaluation by your physician Followup: italo - With: - When: 2 - 3 days - Reason: Recheck today's complaints, Continuance of care, Re-evaluation by your physician Discharge Instructions: - Discharge Summary Sheet italo - Chronic Obstructive Pulmonary Disease italo - Type 2 Diabetes Mellitus, Diagnosis, Adult italo - Hyperglycemia italo Forms: - Medication Reconciliation Form italo - Thank You Letter italo - Antibiotic Education italo - Prescription Opioid Use italo Prescriptions: - Lantus Solostar U-100 Insulin 100 unit/mL (3 mL) Subcutaneous insulin pen - inject 24 unit by SUBCUTANEOUS route once daily; 1 Applicator; Refills: 0, italo Product Selection Permitted Signatures: Dispatcher [employer] Iván Morales MD MD cha Calderon, Audri RN RN aa5 David Harrell RN RN jd3 Bear Vega RN RN ch5
[2020-10-22 11:15] VITALS: TEMP 98.7
[2020-10-22 11:18] VITALS: BP 158/83; O2SAT 97
--- NOTE | 2020-10-23 08:17 | EKG ---
Test Date: 2020-10-22 Test Time: 08:47:30 Food Expeditor: KIMBERLEY MEASUREMENT RESULTS: Intervals: Rate: 72 [place]: 142 QRSD: 76 QT: 388 QTc: 424 [place]: P: 85 [place]: 142 QRS: 73 T: 77 INTERPRETIVE STATEMENTS: Normal sinus rhythm Possible Left atrial enlargement Borderline ECG Compared to ECG 08/30/2020 21:26:16 Right-axis deviation no longer present Electronically Signed On 10-23-20 08:14:25 CDT by Ramses Palmer
== END 2020-10-22 11:08 | disposition home or self-care (01) ==
LOC: ER 08:01
DX: E11.65 Type 2 diabetes mellitus with hyperglycemia (principal); I10 Essential (primary) hypertension; F17.210 Nicotine dependence, cigarettes, uncomplicated; Z95.818 Presence of other cardiac implants and grafts
CPT/HCPCS: 36415; 71045; 80048; 80076; 82947; 83735; 83880; 84484; 85025; 85610; 93005; 96372; 99284

== ENCOUNTER 2020-12-06 19:47 | Emergency (ER) | payer SELFPAY ==
[2020-12-06 20:41] LABS: Absolute Lymphocytes (CBC) 1.6 K/uL (0.7-4.9); Basophils % 0.7 % (0-1.3); Hematocrit 42.4 % (36.0-45.0); Lymphocytes % 16.6 % (15.3-44.8); MPV 7.9 fL (7.6-11.3); RBC Red Blood Cell Count 4.57 M/uL (3.86-4.86)
[2020-12-06 20:44] LABS: Protime INR 0.95
--- NOTE | 2020-12-06 20:47 | RAD REPORT ---
EXAM DESCRIPTION: RAD - Chest Single View - 12/06/2020 8:20 pm CLINICAL HISTORY: SOB COMPARISON: Portable October 22 TECHNIQUE: AP portable chest image was obtained 12/06/2020 8:20 pm . FINDINGS: Extensive fibrotic lung changes are present without peripheral mass or consolidation. Amisha r regions are similar to comparison. Heart and vasculature are normal. No measurable pleural effusion and no pneumothorax. No acute bony abnormality seen. No acute aortic findings suspected. IMPRESSION: Chronic interstitial lung pattern with no acute cardiopulmonary finding. No significant change from comparison study.
--- NOTE | 2020-12-06 20:48 | RAD REPORT ---
EXAM DESCRIPTION: RAD - Ankle Right 3 View - 12/06/2020 8:20 pm CLINICAL HISTORY: Right ankle pain, twisting injury COMPARISON: None. FINDINGS: No gross fracture, dislocation or periosteal reaction. Punctate bone densities along the m argins of the medial malleolus are doubtful as being acute. No joint effusion seen. No joint space na rrowing. Small plantar spur. Significant anterior and lateral soft tissue swelling is present. IMPRESSION: Soft tissue swelling with no right ankle fracture confirmed.
[2020-12-06 20:58] LABS: ALT/SGPT 32 U/L (12-78); AST/SGOT 19 U/L (15-37); Albumin 3.6 g/dL (3.4-5.0); Alkaline Phosphatase 61 U/L (45-117); BUN Blood Urea Nitrogen 15 mg/dL (7-18); Bicarbonate 28 mmol/L (21-32); Bilirubin Direct < 0.1 mg/dL (0-0.2); Bilirubin Total 0.4 mg/dL (0.2-1.0); CKMB Creatine Kinase MB 2.6 ng/mL (1.0-3.6); Creatine Phosphokinase 130 U/L (26-192); Glucose Level 170 mg/dL (74-106); Lipase 135 U/L (73-393); Magnesium 1.9 mg/dL (1.8-2.4); NT PRO-BNP 876 pg/mL (<125); Potassium 4.4 mmol/L (3.5-5.1); Protein, Total 7.1 g/dL (6.4-8.2); Sodium Level 136 mmol/L (136-145); Troponin (Emerg Dept Use Only) < 0.02 ng/mL (0.0-0.045)
[2020-12-06] MEDS ORDERED: METHYLPREDNISOLONE 125 MG INJ ONE (21:02)
--- NOTE | 2020-12-06 22:05 | RAD REPORT ---
EXAM DESCRIPTION: CT - Chest For Pe Angio - 12/06/2020 9:55 pm CLINICAL HISTORY: SOB COMPARISON: No comparisons TECHNIQUE: Dynamically enhanced 2 mm thick images of the chest were obtained during administration o f approximately 150mL Isovue 370 IV contrast. Coronal and oblique MIP reconstruction images were gene rated and reviewed. Exam utilizes a protocol to evaluate the pulmonary arterial tree. All CT scans are performed using dose optimization technique as appropriate and may include automated exposure control or mA/KV adjustment according to patient size. FINDINGS: No pulmonary emboli are identified. The aorta as imaged shows no acute or suspicious finding. No pericardial thickening or effusion. No infiltrate or mass in the lung parenchyma. Minimal stranding in the posterior gutter on the right is more likely scarring. No pleural effusion or pleural thickening. No mediastinal or hilar suspicious masses. No chest wall masses or abnormal axillary lymphadenopathy. Left vertebral artery arises from the aortic arch is a normal anatomic variant. Aortic atherosclero tic calcifications are present along with coronary artery calcifications. IMPRESSION: No pulmonary emboli identified. No other significant or suspicious findings.
--- NOTE | 2020-12-07 00:02 | EDPHYS ---
Physician Documentation [facility] Name: Dalia Reyes Age: 64 yrs Sex: Female : 1955 Arrival Date: 12/06/2020 Time: 19:48 Bed 5 Private MD: ED Physician Wilfred Navarrete HPI: 12/06 19:45 This 64 yrs old Female presents to ER via EMS with complaints of Shortness of mh7 breath. 19:45 The patient has shortness of breath at rest, with light activity. Onset: The mh7 symptoms/episode began/occurred today. Duration: The symptoms are continuous, but are steadily getting better. The patient's shortness of breath is aggravated by coughing, light activity, is alleviated by nebulizer treatment. Associated signs and symptoms: Pertinent positives: productive cough, Pertinent negatives: chest pain, non-productive cough, diaphoresis, dizziness, fever, hemoptysis, loss of consciousness, nausea, numbness in extremities, visual changes, vomiting. Severity of symptoms: At their worst the symptoms were moderate today, in the emergency department the symptoms have improved moderately. The patient has experienced similar episodes in the past, multiple times. Patient reports having shortness of breath and wheezing today. She has a history of COPD with some frequent exacerbations. She is on home O2 at 3 L/min nasal cannula and uses nebulizers. She has had a productive cough which is no different than usual. She denies any fever, chest pain, abdominal pain, nausea, vomiting, dizziness, numbness/tingling, or weakness. She also reports that she tripped and fell today on an uneven surface and injured her right ankle. She denies any head trauma or LOC or other complaints.. Historical: - Allergies: 19:50 Benadryl; dc2 - Home Meds: 19:50 Albuterol Inhl [Active]; O2 [Active]; dc2 21:50 prednisone 10 mg Oral tab once daily [Active]; lamotrigine 100 mg oral tab 1 tab 2 dc2 times per day [Active]; fluoxetine 20 mg Oral tab 1 tab once daily [Active]; buspirone 15 mg Oral tab 1 tab 2 times per day [Active]; 21:53 trazodone 100 mg Oral tab 1 tab once daily [Active]; clopidogrel 75 mg oral tab 1 tab dc2 once daily [Active]; metoprolol tartrate 25 mg Oral tab 1 tab 2 times per day [Active]; metformin 1,000 mg Oral tr24 1 tab 2 times per day [Active]; atorvastatin 80 mg oral tab 1 tab once daily [Active]; 21:55 Flovent 110 mcg/actuation Inhl aero 1 puff 2 times per day [Active]; dc2 21:58 aspirin 81 mg Oral chew 1 tab once daily [Active]; dc2 21:59 Proventil 90 mcg as needed 90 mcg as needed [Active]; Trelegy 100 mcg/ 62.5mcg/25mcg 1 dc2 tablet PO daily [Active]; Ipratopium 0.5mg/ albuterol / 3 mg Nebulizer PRN Sob [Active]; - PMHx: 19:50 COPD; Diabetes (non-insulin dependant); Hypertension; dc2 - PSHx: 19:50 heart stent; dc2 - Immunization history:: Adult Immunizations up to date, Client reports having NOT received the Covid vaccine. Last tetanus immunization: unknown, Flu vaccine is not up to date. - Social history:: Smoking status: Patient reports the use of cigarette tobacco products, smokes one-half pack cigarettes per day. ROS: 19:45 Constitutional: Negative for fever, chills, and weight loss, Eyes: Negative for injury, mh7 pain, redness, and discharge, ENT: Negative for injury, pain, and discharge, Neck: Negative for injury, pain, and swelling, Cardiovascular: Negative for chest pain, palpitations, and edema, Abdomen/GI: Negative for abdominal pain, nausea, vomiting, diarrhea, and constipation, Back: Negative for injury and pain, : Negative for injury, bleeding, discharge, and swelling. 19:45 Skin: Negative for injury, rash, and discoloration, Neuro: Negative for headache, weakness, numbness, tingling, and seizure, Psych: Negative for depression, anxiety, suicide ideation, homicidal ideation, and hallucinations, Allergy/Immunology: Negative for hives, rash, and allergies, Endocrine: Negative for neck swelling, polydipsia, polyuria, polyphagia, and marked weight changes, Hematologic/Lymphatic: Negative for swollen nodes, abnormal bleeding, and unusual bruising. 19:45 MS/extremity: Positive for injury or acute deformity, ecchymosis, swelling, of the Right ankle , Negative for laceration, paresthesias. Exam: 19:45 Constitutional: This is a well developed, well nourished patient who is awake, alert, mh7 and in no acute distress. Head/Face: Normocephalic, atraumatic. Eyes: Pupils equal round and reactive to light, extra-ocular motions intact. Lids and lashes normal. Conjunctiva and sclera are non-icteric and not injected. Cornea within normal limits. Periorbital areas with no swelling, redness, or edema. Neck: Trachea midline, no thyromegaly or masses palpated, and no cervical lymphadenopathy. Supple, full range of motion without nuchal rigidity, or vertebral point tenderness. No Meningismus. Chest/axilla: Normal chest wall appearance and motion. Nontender with no deformity. No lesions are appreciated. Cardiovascular: Regular rate and rhythm with a normal S1 and S2. No gallops, murmurs, or rubs. Normal PMI, no JVD. No pulse deficits. 19:45 Abdomen/GI: Soft, non-tender, with normal bowel sounds. No distension or tympany. No guarding or rebound. No evidence of tenderness throughout. Back: No spinal tenderness. No costovertebral tenderness. Full range of motion. Skin: Warm, dry with normal turgor. Normal color with no rashes, no lesions, and no evidence of cellulitis. 19:45 Neuro: Awake and alert, GCS 15, oriented to person, place, time, and situation. Cranial nerves II-XII grossly intact. Motor strength 5/5 in all extremities. Sensory grossly intact. Cerebellar exam normal. Normal gait. Psych: Awake, alert, with orientation to person, place and time. Behavior, mood, and affect are within normal limits. 19:45 Respiratory: mild respiratory distress is noted, Respirations: prolonged exhalation, that is mild, Breath sounds: wheezing: expiratory that is mild, is heard diffusely, Respiratory rate: 22 19:45 Musculoskeletal/extremity: Extremities: noted in the Right ankle: ecchymosis, swelling, ROM: limited active range of motion due to pain, in the Right ankle, limited passive range of motion due to pain, in the Right ankle, Circulation is intact in all extremities. Sensation intact. Compartment Syndrome exam of affected extremity: is normal. no numbness, no tingling, no sensation deficit, no palor, no weak pulses, Joints: the right ankle displays painful range of motion, swelling, Tendon exam: specific tendon testing normal through active and passive range of motion Vital Signs: 19:50 BP 134 / 76; Pulse 83; Resp 22; Temp 97.8; Pulse Ox 99% on Nebulizer Mask; Weight 62.14 dc2 kg; Height 5 ft. 6 in. (167.64 cm); Pain 6/10; 19:50 BP 134 / 76; Pulse 83; Resp 22; Temp 97.8; Pulse Ox 99% on Nebulizer Mask; Pain 5/10; dc2 21:23 BP 134 / 78; Pulse 85; Resp 18; Pulse Ox 94% on 2 lpm NC; df1 22:30 BP 146 / 83; Pulse 92; Resp 20; Temp 98.0; Pulse Ox 93% ; Pain 0/10; dc2 23:30 BP 128 / 73; Pulse 93; Resp 20; Pulse Ox 93% on 2 lpm NC; Pain 2/10; dc2 19:50 Body Mass Index 22.11 (62.14 kg, 167.64 cm) dc2 MDM: 23:57 Differential diagnosis: Anemia Anxiety Reaction asthma, Bronchitis CHF exacerbation, mh7 Chronic Obstructive Pulmonary Disease Myocardial Infarction pneumonia, Pneumothorax Psychogenic pulmonary edema, Pulmonary Embolism reactive airway disease. Data reviewed: vital signs, nurses notes, EMS record, old medical records, lab test result(s), cardiac enzymes, CBC, electrolytes, EKG, radiologic studies, CT scan, plain films. Data interpreted: Pulse oximetry: on 2L(s) per nasal canula, is 94 %. Interpretation: acceptable. Counseling: I had a detailed discussion with the patient and/or guardian regarding: the historical points, exam findings, and any diagnostic results supporting the discharge/admit diagnosis, lab results, radiology results. Response to treatment: the patient's symptoms have resolved after treatment, the patient's blood pressure is in an acceptable range, mental status has returned to baseline, the patient no longer shows bradycardia, the patient is not short of breath, the patient is not tachycardic, the patient's pain is gone, the patient's temperature has normalized. Refusal of service: The patient/guardian displays adequate decision making capability and despite a detailed discussion of alternatives, benefits, risks, and consequences refuses: Admission to the hospital for further work-up and treatment. ED course: Feels better, no acute distress, vital signs stable, no focal neurological deficits. No shortness of breath, chest pain, nausea, vomiting, or other complaints. No wheezing, rhonchi, retractions. Good air movement bilateral lungs. Discussed all test results findings with the patient. She adamantly requests to be discharged in the ED at this time.. 12/07 00:01 Patient medically screened. health system 00:05 Refusal of service: The patient/guardian displays adequate decision making capability health system and despite a detailed discussion of alternatives, benefits, risks, and consequences refuses: Splint. 12/06 19:56 Order name: BMP health system 12/06 19:56 Order name: Blood Culture Adult (2) health system 12/06 19:56 Order name: CBC with Diff health system 12/06 19:56 Order name: CPK health system 12/06 19:56 Order name: Ckmb health system 12/06 19:56 Order name: D-Dimer; Complete Time: 20:56 health system 12/06 19:56 Order name: Hepatic Function; Complete Time: 21:36 health system 12/06 19:56 Order name: Lipase; Complete Time: 21:36 health system 12/06 19:56 Order name: Magnesium; Complete Time: 21:36 health system 12/06 19:56 Order name: NT PRO-BNP; Complete Time: 21:36 health system 12/06 19:56 Order name: PT-INR; Complete Time: 20:56 health system 12/06 19:56 Order name: Ptt, Activated; Complete Time: 20:56 health system 12/06 19:56 Order name: Troponin (emerg Dept Use Only); Complete Time: 21:36 health system 12/06 19:57 Order name: Basic Metabolic Panel; Complete Time: 21:36 [facility] 12/06 19:56 Order name: XRAY CXR (1 view); Complete Time: 20:56 health system 12/06 19:56 Order name: EKG; Complete Time: 19:57 health system 12/06 19:56 Order name: Cardiac monitoring; Complete Time: 20:30 health system 12/06 19:56 Order name: EKG - Nurse/Tech; Complete Time: 20:30 health system 12/06 19:56 Order name: IV Saline Lock; Complete Time: 20:30 health system 12/06 19:56 Order name: Labs collected and sent; Complete Time: 20:30 health system 12/06 19:56 Order name: O2 Per Protocol; Complete Time: 20:30 health system 12/06 19:56 Order name: O2 Sat Monitoring; Complete Time: 20:30 health system 12/06 19:56 Order name: Ankle Right 3 View XRAY; Complete Time: 20:56 health system 12/06 19:57 Order name: Blood Culture [facility] 12/06 19:57 Order name: CBC with Automated Diff; Complete Time: 20:56 [facility] 12/06 19:57 Order name: Creatine Phosphokinase; Complete Time: 21:36 [facility] 12/06 19:57 Order name: CKMB Creatine Kinase MB; Complete Time: 21:36 [facility] 12/06 21:36 Order name: CT Chest For PE Angio; Complete Time: 22:34 health system 12/06 22:56 Order name: Troponin (emerg Dept Use Only); Complete Time: 23:46 health system 12/06 23:52 Order name: Walking boot; Complete Time: 00:38 health system 12/06 23:55 Order name: Chu Wrap; Complete Time: 00:38 health system Administered Medications: 12/06 20:40 Drug: SOLU-Medrol (methylPrednisoLONE) 125 mg Route: IVP; Site: right antecubital; df1 22:30 Follow up: Response: No adverse reaction dc2 Disposition Summary: 12/07/20 00:01 Discharge Ordered Location: Home health system Problem: an acute exacerbation health system Symptoms: have improved health system Condition: Stable health system Diagnosis - COPD/ Chronic obstructive pulmonary disease with (acute) exacerbation 7 - Sprain, right ankle 7 - Fall, mechanical 7 Followup: health system - With: Private Physician - When: 1 - 2 days - Reason: Worsening of condition, Recheck today's complaints, Continuance of care, Re-evaluation by your physician Followup: health system - With: Alonso Licona MD - When: 1 - 2 days - Reason: Worsening of condition, Recheck today's complaints, Continuance of care, Re-evaluation by your physician Discharge Instructions: - Discharge Summary Sheet 7 - Ankle Sprain, [id number] 7 - Chronic Obstructive Pulmonary Disease, [id number] health system - Fall Prevention in the Home, Adult, [id number] health system Forms: - Medication Reconciliation Form health system - Thank You Letter health system - Antibiotic Education health system - Prescription Opioid Use health system Prescriptions: - ipratropium-albuterol 0.5 mg-3 mg(2.5 mg base)/3 mL Inhalation solution for nebulization - inhale 3 milliliter by NEBULIZATION route 4 times per day As needed; 20 mh7 milliliter; Refills: 0, Product Selection Permitted - Prednisone 20 mg Oral Tablet - take 2 tablets by ORAL route once daily for 5 days; 10 tablet; Refills: 0, mh7 Product Selection Permitted Signatures: Dispatcher [employer] Wilfred Cox MD MD health system Iva Villarreal df1 Maria D Bansal RN RN dc2
--- NOTE | 2020-12-07 00:02 | ER ---
Nurse's Notes [facility] Name: Dalia Reyes Age: 64 yrs Sex: Female : 1955 Arrival Date: 12/06/2020 Time: 19:48 Bed 5 Private MD: Diagnosis: COPD/ Chronic obstructive pulmonary disease with (acute) exacerbation;Sprain, right ankle;Fall, mechanical Presentation: 12/06 19:50 Chief complaint: Patient states: " Got short of breath when I got back inside after my dc2 fall" Pt arrive to ed with neb treatment in progress. Coronavirus screen: Vaccine status: Patient reports being unvaccinated. Client denies travel out of the [place] in the last 14 days. At this time, the client does not indicate any symptoms associated with coronavirus-19. Ebola Screen: Patient negative for fever greater than or equal to 101.5 degrees Fahrenheit, and additional compatible Ebola Virus Disease symptoms Patient denies exposure to infectious person. Patient denies travel to an Ebola-affected area in the 21 days before illness onset. No symptoms or risks identified at this time. 19:50 Method Of Arrival: EMS: [facility] dc2 19:50 Initial Sepsis Screen: Does the patient meet any 2 criteria? No. Patient's initial dc2 sepsis screen is negative. Does the patient have a suspected source of infection? No. Patient's initial sepsis screen is negative. Risk Assessment: Do you want to hurt yourself or someone else? Patient reports no desire to harm self or others. Note Pt reports getting short of breath after getting up from fall but reports has been doing respiratory treatments all day with no relief of SOB. Onset of symptoms was December 06, 2020 at 18:15. Care prior to arrival: Respiratory treatments at home throughout day. Activity prior to arrival: had just slipped off porch leonarda 1 foot, hurting right ankle. Mechanism of Injury: Fall. Transition of care: patient was not received from another setting of care. 19:50 Acuity: CONSTANTINO 3 dc2 Triage Assessment: 20:00 General: Appears uncomfortable, slender, unkempt, Behavior is cooperative. Pain: dc2 Complains of pain in right outer ankle. 20:00 Neuro: No deficits noted. Level of Consciousness is awake, alert, obeys commands, dc2 confused, Oriented to person, place, time, situation. Respiratory: Breath sounds with wheezes bilaterally. GI: No deficits noted. No signs and/or symptoms were reported involving the gastrointestinal system. : No signs and/or symptoms were reported regarding the genitourinary system. Derm: No deficits noted. No signs and/or symptoms reported regarding the dermatologic system. Musculoskeletal: Swelling present in right outer ankle with large amount of swelling and Bruising. Injury Description: Fell of [place] leonarda 1 foot twisting right ankle. Historical: - Allergies: 19:50 Benadryl; dc2 - Home Meds: 19:50 Albuterol Inhl [Active]; O2 [Active]; dc2 21:50 prednisone 10 mg Oral tab once daily [Active]; lamotrigine 100 mg oral tab 1 tab 2 dc2 times per day [Active]; fluoxetine 20 mg Oral tab 1 tab once daily [Active]; buspirone 15 mg Oral tab 1 tab 2 times per day [Active]; 21:53 trazodone 100 mg Oral tab 1 tab once daily [Active]; clopidogrel 75 mg oral tab 1 tab dc2 once daily [Active]; metoprolol tartrate 25 mg Oral tab 1 tab 2 times per day [Active]; metformin 1,000 mg Oral tr24 1 tab 2 times per day [Active]; atorvastatin 80 mg oral tab 1 tab once daily [Active]; 21:55 Flovent 110 mcg/actuation Inhl aero 1 puff 2 times per day [Active]; dc2 21:58 aspirin 81 mg Oral chew 1 tab once daily [Active]; dc2 21:59 Proventil 90 mcg as needed 90 mcg as needed [Active]; Trelegy 100 mcg/ 62.5mcg/25mcg 1 dc2 tablet PO daily [Active]; Ipratopium 0.5mg/ albuterol / 3 mg Nebulizer PRN Sob [Active]; - PMHx: 19:50 COPD; Diabetes (non-insulin dependant); Hypertension; dc2 - PSHx: 19:50 heart stent; dc2 - Immunization history:: Adult Immunizations up to date, Client reports having NOT received the Covid vaccine. Last tetanus immunization: unknown, Flu vaccine is not up to date. - Social history:: Smoking status: Patient reports the use of cigarette tobacco products, smokes one-half pack cigarettes per day. Screenin:00 Abuse screen: Denies threats or abuse. Denies injuries from another. dc2 20:00 Nutritional screening: No deficits noted. Tuberculosis screening: No symptoms or risk dc2 factors identified. Never had TB. Fall Risk None identified. No fall in past 12 months (0 pts). Secondary diagnosis (15 points) No IV (0 pts). Ambulatory Aid- None/Bed Rest/Nurse Assist (0 pts). Gait- Normal/Bed Rest/Wheelchair (0 pts) Mental Status- Oriented to own ability (0 pts). Total Coronel Fall Scale indicates No Risk (0-24 pts). Assessment: 20:00 General: Appears uncomfortable, unkempt, Behavior is cooperative. dc2 20:00 Neuro: No deficits noted. Respiratory: Breath sounds with wheezes bilaterally. Derm: dc2 Bruising that is dark purple, to right swollen ankle. Musculoskeletal: Swelling present in Right ankle. 21:24 Respiratory: Breath sounds with wheezes bilaterally. df1 22:39 Reassessment: Assist pt to BSC, Oxygen desat to 87-88 % on 4L. dc2 12/07 00:18 Reassessment: Pt rolled out in wheelchair with own oxygen to wait for daughter. Pt dc2 insist on waiting outside. Vital Signs: 12/06 19:50 BP 134 / 76; Pulse 83; Resp 22; Temp 97.8; Pulse Ox 99% on Nebulizer Mask; Weight 62.14 dc2 kg; Height 5 ft. 6 in. (167.64 cm); Pain 6/10; 19:50 BP 134 / 76; Pulse 83; Resp 22; Temp 97.8; Pulse Ox 99% on Nebulizer Mask; Pain 5/10; dc2 21:23 BP 134 / 78; Pulse 85; Resp 18; Pulse Ox 94% on 2 lpm NC; df1 22:30 BP 146 / 83; Pulse 92; Resp 20; Temp 98.0; Pulse Ox 93% ; Pain 0/10; dc2 23:30 BP 128 / 73; Pulse 93; Resp 20; Pulse Ox 93% on 2 lpm NC; Pain 2/10; dc2 19:50 Body Mass Index 22.11 (62.14 kg, 167.64 cm) dc2 ED Course: 19:48 Patient arrived in ED. bp1 19:50 Arm band placed on left wrist. dc2 19:50 Patient has correct armband on for positive identification. Bed in low position. Call dc2 light in reach. Side rails up X 1. site monitor on. Pulse ox on. NIBP on. 19:50 Door closed. Lights dimmed. Warm blanket given. dc2 19:54 Wilfred Navarrete MD is Attending Physician. 7 19:58 Maria D Bansal RN is Primary Nurse. dc2 20:02 X-ray(s) taken. dc2 20:03 Triage completed. dc2 20:20 XRAY CXR (1 view) In Process Unspecified. EDMS 20:20 Ankle Right 3 View XRAY In Process Unspecified. EDMS 20:30 Inserted saline lock: 20 gauge in right antecubital area, using aseptic technique. dh4 Blood collected. 20:32 BMP Sent. la1 20:32 Blood Culture Adult (2) Sent. la1 20:32 CBC with Diff Sent. la1 20:32 CPK Sent. la1 20:32 Ckmb Sent. la1 21:45 Side rails up X 1. Door closed. Lights dimmed. dc2 21:[address] via stretcher. dc2 21:54 CT Chest For PE Angio In Process Unspecified. EDMS 22:11 Assist provider with bone marrow aspiration. dc2 23:45 ED physician to see patient. dc2 23:50 IV discontinued, intact, bleeding controlled, No redness/swelling at site. Pressure dc2 dressing applied. 12/07 00:00 Alonso Licona MD is Referral Physician. 7 Administered Medications: 12/06 20:40 Drug: SOLU-Medrol (methylPrednisoLONE) 125 mg Route: IVP; Site: right antecubital; df1 22:30 Follow up: Response: No adverse reaction dc2 Outcome: 12/07 00:01 Discharge ordered by . 7 00:05 Discharged to home via wheelchair. dc2 00:05 Condition: stable 00:05 Discharge instructions given to patient, Instructed on discharge instructions, Demonstrated understanding of instructions, follow-up care, medications, Prescriptions given X 2. 00:43 Patient left the ED. dc2 Signatures: Dispatcher [employer] EDMS Dev Salcido, RHEOSTAT ASSEMBLER-C RHEOSTAT ASSEMBLER-Mónica1 Kleber Donnelly 4 Palak Torres Maurice, MD MD 7 Iva Villarreal df1 Maria D Bansal RN RN dc2 Corrections: (The following items were deleted from the chart) 12/06 20:08 19:50 Chief complaint: Patient states: " Got short of breath when I got back inside dc2 after my fall" dc2
[2020-12-07 01:09] VITALS: TEMP 98; O2SAT 93
[2020-12-07 01:11] VITALS: BP 128/73
--- NOTE | 2020-12-07 14:22 | EKG ---
Test Date: 2020-12-06 Test Time: 20:07:56 Diamond Grader: COMPA MEASUREMENT RESULTS: Intervals: Rate: 85 WA: 142 QRSD: 72 QT: 366 QTc: 435 Conway: P: 78 WA: 142 QRS: 75 T: 80 INTERPRETIVE STATEMENTS: Normal sinus rhythm Right atrial enlargement Borderline ECG Compared to ECG 10/22/2020 08:47:30 No significant changes Electronically Signed On 12-07-20 14:21:28 CDT by Ramses Palmer
== END 2020-12-07 00:43 | disposition home or self-care (01) ==
LOC: ER 19:47
DX: J44.1 Chronic obstructive pulmonary disease with (acute) exacerbation (principal); S93.401A Sprain of unspecified ligament of right ankle, initial encounter; W01.0XXA Fall on same level from slipping, tripping and stumbling without subsequent striking against object, initial encounter; I10 Essential (primary) hypertension; E11.9 Type 2 diabetes mellitus without complications; F17.210 Nicotine dependence, cigarettes, uncomplicated; Z79.82 Long term (current) use of aspirin; Z88.8 Allergy status to other drugs, medicaments and biological substances; Z95.818 Presence of other cardiac implants and grafts
CPT/HCPCS: 36415; 71045; 71275; 80048; 80076; 82550; 82553; 83690; 83735; 83880; 84484; 85025; 85379; 85610; 85730; 87040; 93005; 96374; 99285; J2930; Q9967

== ENCOUNTER 2020-12-09 20:06 | Inpatient (IN) | payer OTHER, SELFPAY ==
[2020-12-09 20:42] LABS: Arterial Blood Carboxyhemoglob 8.7 % (0-1.5); Blood Gas Oxyhemoglobin 86.2 % (94-97); Blood O2 Saturation 95.7 % (92-98.5)
--- NOTE | 2020-12-09 20:45 | RAD REPORT ---
EXAM DESCRIPTION: RAD - Chest Single View - 12/09/2020 8:39 pm CLINICAL HISTORY: SOB COMPARISON: Chest Single View dated 12/06/2020; Chest Single View dated 10/22/2020; Chest Single View dated 08/30/2020; Chest Single View dated 06/08/2020; Chest For Pe Angio dated 12/06/2020 FINDINGS: Lines: None. Lungs: No evidence of edema or pneumonia. Emphysematous changes. Pleural: Blunting of the hemidiaphragms bilaterally. Cardiac: The heart size is within normal limits. Bones: No acute fractures. Other: IMPRESSION: No acute cardiopulmonary disease. Emphysema. The patient may be a candidate for annual l ow dose lung cancer screening CT.
[2020-12-09 20:56] LABS: Absolute Lymphocytes (CBC) 2.4 K/uL (0.7-4.9); Basophils % 0.6 % (0-1.3); Hematocrit 42.6 % (36.0-45.0); Lymphocytes % 25.3 % (15.3-44.8); MPV 7.9 fL (7.6-11.3); RBC Red Blood Cell Count 4.57 M/uL (3.86-4.86)
[2020-12-09 20:57] LABS: Protime INR 0.98
[2020-12-09 21:30] LABS: ALT/SGPT 36 U/L (12-78); Albumin 3.6 g/dL (3.4-5.0); Alkaline Phosphatase 65 U/L (45-117); BUN Blood Urea Nitrogen 13 mg/dL (7-18); Bicarbonate 30 mmol/L (21-32); Bilirubin Direct < 0.1 mg/dL (0-0.2); Bilirubin Total 0.2 mg/dL (0.2-1.0); Glucose Level 256 mg/dL (74-106); NT PRO-BNP 433 pg/mL (<125); Sodium Level 139 mmol/L (136-145); Troponin (Emerg Dept Use Only) < 0.02 ng/mL (0.0-0.045)
[2020-12-09] MEDS ORDERED: ALBUTEROL 2.5 MG/3 ML NEB SOL ONE (21:44)
[2020-12-09] MEDS ORDERED: IPRATROPIUM BROM 0.5MG/2.5ML ONE (21:44)
[2020-12-09 21:47] LABS: AST/SGOT 26 U/L (15-37); Magnesium 2.4 mg/dL (1.8-2.4); Potassium 4.1 mmol/L (3.5-5.1)
[2020-12-09] MEDS ORDERED: IBUPROFEN 400 MG TAB ONE (22:47)
--- NOTE | 2020-12-09 23:22 | ER ---
Nurse's Notes [facility] Name: Dalia Reyes Age: 64 yrs Sex: Female : 1955 Arrival Date: 12/09/2020 Time: 20:08 Bed 15 Private MD: Diagnosis: COPD/ Chronic obstructive pulmonary disease with (acute) exacerbation Presentation: 12/09 20:08 Chief complaint: EMS states: called out for difficulty breathing for the past few days, em was given A\T\A treatment and 125 mg solu-medrol [employer], reports improvement. Coronavirus screen: Vaccine status: Patient reports being unvaccinated. Ebola Screen: Patient negative for fever greater than or equal to 101.5 degrees Fahrenheit, and additional compatible Ebola Virus Disease symptoms Patient denies exposure to infectious person. Patient denies travel to an Ebola-affected area in the 21 days before illness onset. No symptoms or risks identified at this time. Initial Sepsis Screen: Does the patient meet any 2 criteria? HR > 90 bpm. No. Patient's initial sepsis screen is negative. Does the patient have a suspected source of infection? No. Patient's initial sepsis screen is negative. Risk Assessment: Do you want to hurt yourself or someone else? Patient reports no desire to harm self or others. Onset of symptoms was December 09, 2020. 20:08 Method Of Arrival: EMS: [facility] em 20:08 Acuity: CONSTANTINO 3 em Triage Assessment: 20:15 Respiratory: the patient has moderate shortness of breath. dc2 20:15 General: Appears in no apparent distress. uncomfortable. Respiratory: Breath sounds dc2 with wheezes bilaterally. Historical: - Allergies: 20:10 Benadryl; em - Home Meds: 21:00 Albuterol Inhl [Active]; aspirin 81 mg Oral chew 1 tab once daily [Active]; dc2 atorvastatin 80 mg Oral tab 1 tab once daily [Active]; buspirone 15 mg Oral tab 1 tab 2 times per day [Active]; clopidogrel 75 mg Oral tab 1 tab once daily [Active]; Flovent 110 mcg/actuation Inhl aero 1 puff 2 times per day [Active]; fluoxetine 20 mg Oral tab 1 tab once daily [Active]; metformin 1,000 mg Oral tr24 1 tab 2 times per day [Active]; Ipratopium 0.5mg/ albuterol / 3 mg Nebulizer PRN Sob [Active]; metoprolol tartrate 25 mg Oral tab 1 tab 2 times per day [Active]; lamotrigine 100 mg Oral tab 1 tab 2 times per day [Active]; prednisone 10 mg Oral tab once daily [Active]; Proventil 90 mcg as needed 90 mcg as needed [Active]; trazodone 100 mg Oral tab 1 tab once daily [Active]; Trelegy 100 mcg/ 62.5mcg/25mcg 1 tablet PO daily [Active]; O2 [Active]; - PMHx: 20:15 COPD; Hypertension; Diabetes (non-insulin dependant); dc2 - PSHx: 20:10 heart stent; em - Immunization history:: Client reports having NOT received the Covid vaccine. - Social history:: Smoking status: Patient reports the use of cigarette tobacco products, denies chronic smoking, but will smoke occasionally. Screenin:15 Abuse screen: Denies threats or abuse. Denies injuries from another. Nutritional dc2 screening: No deficits noted. Tuberculosis screening: No symptoms or risk factors identified. Never had TB. Fall Risk None identified. Fall in past 12 months (25 points). Secondary diagnosis (15 points) No IV (0 pts). Ambulatory Aid- Crutches/Cane/Walker (15 pts). Gait- Weak (10 pts.). Mental Status- Oriented to own ability (0 pts). Total Coronel Fall Scale indicates High Risk Score (45 or more points). Assessment: 20:15 General: Appears in no apparent distress. uncomfortable, slender, unkempt, Behavior is dc2 calm, cooperative. Pain: Complains of pain in NECK AND HEAD. 20:15 Neuro: No deficits noted. Cardiovascular: No deficits noted. Reports shortness of dc2 breath, since always, Reports that she has had this neck/ head pain ongoing for a long time with shortness of breath. States this morning had difficulty thinking and headache worsened after taking neb treatments. Respiratory: Reports shortness of breath air hunger Airway is patent Breath sounds with wheezes bilaterally. Onset: The symptoms/episode began/occurred always, reports always wheezes and reports continue to smoke.. GI: No deficits noted. No signs and/or symptoms were reported involving the gastrointestinal system. Bowel sounds present X 4 quads. : No signs and/or symptoms were reported regarding the genitourinary system. Derm: Skin is fragile, is thin, with poor turgor. Musculoskeletal: Swelling present in Right ankle. 20:15 Respiratory: Respiratory effort is even, shallow. dc2 21:00 Cardiovascular: Rhythm is sinus rhythm. dc2 12/10 00:30 Reassessment: Pt up to use bsc, states trouble breathing and needs treatment. dc2 Vital Signs: 11 20:08 BP 137 / 84; Pulse 92; Resp 28; Temp 98.0; Pulse Ox 98% on 5 lpm NC; Weight 58.97 kg; em Height 5 ft. 6 in. (167.64 cm); Pain 0/10; 20:30 BP 142 / 72; Pulse 93; Resp 17; Pulse Ox 97% 4 lpm ; Pain 6/10; dc2 21:30 BP 153 / 70; Pulse 101; Resp 20; Pulse Ox 90% on 3 lpm NC; Pain 5/10; dc2 22:15 BP 137 / 60; Pulse 65; Resp 17; Temp 97; Pulse Ox 97% on 4 lpm NC; Pain 4/10; dc2 23:00 BP 145 / 68; Pulse 104; Resp 21; Pulse Ox 93% on 4 lpm NC; Pain 3/10; dc2 11 00:00 BP 152 / 60; Pulse 108; Resp 24; Pulse Ox 92% on 4 lpm NC; Pain 3/10; dc2 12/09 20:08 Body Mass Index 20.98 (58.97 kg, 167.64 cm) em ED Course: 12/09 20:08 Patient arrived in ED. em 20:08 Brian Kirk MD is Attending Physician. ma2 20:10 Triage completed. em 20:10 vIán Stuart PA is PHCP. cp 20:10 Arm band placed on. em 20:15 Placed in gown. Bed in low position. Call light in reach. Side rails up X 1. dc2 20:28 Maria D Bansal, SIDDHARTH is Primary Nurse. dc2 20:32 X-ray(s) taken. dc2 20:37 XRAY Chest (1 view) Sent. dc2 20:38 XRAY Chest (1 view) In Process Unspecified. EDMS 22:16 Influenza Screen (a \T\ B) Sent. dc2 22:18 No provider procedures requiring assistance completed. dc2 23:20 Ananda Tijerina PA is Hospitalizing Provider. cp 23:31 Nurse Practitioner and/or Physician Laundry Route Driver to see patient. dc2 12/10 00:00 Report given to SIDDHARTH Galloway .Pt will be a hold in the ER. dc2 Administered Medications: 12/09 20:46 Drug: Albuterol - atroVENT (ipratropium) (3:1) (2.5 mg - 0.5 mg) 3 ml Route: Nebulizer; dc2 22:00 Drug: Motrin (ibuprofen) 400 mg Route: PO; dc2 23:00 Follow up: Response: Pain is decreased dc2 12/10 00:36 Drug: DuoNeb (albuterol 2.5 mg, ipratropium 0.5 mg) (3:1) (2.5 mg - 0.5 mg) 3 ml Route: dc2 Nebulizer; Outcome: 12/09 23:21 Decision to Hospitalize by Provider. cp 12/10 15:09 Patient left the ED. iw Signatures: Dispatcher [employer] EDMS Radu Sanz RN RN Phoebe Dave RN RN iw Iván Stuart PA PA cp Brian Kirk MD MD dc2 RolfMaria D RN RN dc2 Corrections: (The following items were deleted from the chart) 12/09 20:52 20:10 PMHx: COPD; dc2 20:52 20:10 PMHx: Hypertension; dc2 20:52 20:10 PMHx: Diabetes (non-insulin dependant); dc2 22:16 22:16 CORONAVIRUS+MR.LAB.BRZ drawn and sent. ga2 EDNE
--- NOTE | 2020-12-09 23:23 | EDPHYS ---
Physician Documentation [facility] Name: Dalia Reyes Age: 64 yrs Sex: Female : 1955 Arrival Date: 12/09/2020 Time: 20:08 Bed 15 Private MD: ED Physician Brian Kirk HPI: 12/09 20:15 This 64 yrs old Female presents to ER via EMS with complaints of Breathing cp Difficulty. 20:15 The patient has shortness of breath at rest. cp 20:15 Onset: The symptoms/episode began/occurred gradually, and became worse today. cp 20:15 Duration: The symptoms are continuous, and are steadily getting worse. Associated signs cp and symptoms: Pertinent negatives: chest pain, productive cough, diaphoresis, fever. Severity of symptoms: in the emergency department the symptoms have improved mildly. The patient has experienced similar episodes in the past, chronically. Historical: - Allergies: 20:10 Benadryl; em - Home Meds: 21:00 Albuterol Inhl [Active]; aspirin 81 mg Oral chew 1 tab once daily [Active]; dc2 atorvastatin 80 mg Oral tab 1 tab once daily [Active]; buspirone 15 mg Oral tab 1 tab 2 times per day [Active]; clopidogrel 75 mg Oral tab 1 tab once daily [Active]; Flovent 110 mcg/actuation Inhl aero 1 puff 2 times per day [Active]; fluoxetine 20 mg Oral tab 1 tab once daily [Active]; metformin 1,000 mg Oral tr24 1 tab 2 times per day [Active]; Ipratopium 0.5mg/ albuterol / 3 mg Nebulizer PRN Sob [Active]; metoprolol tartrate 25 mg Oral tab 1 tab 2 times per day [Active]; lamotrigine 100 mg Oral tab 1 tab 2 times per day [Active]; prednisone 10 mg Oral tab once daily [Active]; Proventil 90 mcg as needed 90 mcg as needed [Active]; trazodone 100 mg Oral tab 1 tab once daily [Active]; Trelegy 100 mcg/ 62.5mcg/25mcg 1 tablet PO daily [Active]; O2 [Active]; - PMHx: 20:15 COPD; Hypertension; Diabetes (non-insulin dependant); dc2 - PSHx: 20:10 heart stent; em - Immunization history:: Client reports having NOT received the Covid vaccine. - Social history:: Smoking status: Patient reports the use of cigarette tobacco products, denies chronic smoking, but will smoke occasionally. ROS: 20:20 Constitutional: Negative for body aches, chills, fever, poor PO intake. cp 20:20 Eyes: Negative for injury, pain, redness, and discharge. cp 20:20 ENT: Negative for ear pain, sore throat, difficulty swallowing, difficulty handling secretions. 20:20 Cardiovascular: Negative for chest pain, edema, palpitations. 20:20 Respiratory: Positive for shortness of breath, at rest. 20:20 Abdomen/GI: Negative for abdominal pain, nausea, vomiting, and diarrhea. 20:20 Back: Negative for pain at rest, pain with movement. 20:20 Skin: Negative for cellulitis, rash. 20:20 Neuro: Negative for altered mental status, dizziness, headache, syncope, weakness. 20:20 All other systems are negative. Exam: 20:25 Constitutional: The patient appears in no acute distress, alert, awake, cp non-diaphoretic, non-toxic, well developed, well nourished. 20:25 Head/Face: Normocephalic, atraumatic. cp 20:25 Eyes: Periorbital structures: appear normal, Conjunctiva: normal, no exudate, no injection, Sclera: no appreciated abnormality, Lids and lashes: appear normal, bilaterally. 20:25 ENT: External ear(s): are unremarkable, Nose: is normal, Mouth: Lips: moist, Oral mucosa: moist, Posterior pharynx: Airway: no evidence of obstruction, patent. 20:25 Neck: ROM/movement: is normal, is supple, without pain, no range of motions limitations, no meningismus. 20:25 Chest/axilla: Inspection: normal, Palpation: is normal, no crepitus, no tenderness. 20:25 Cardiovascular: Rate: normal, Rhythm: regular, Edema: is not appreciated, JVD: is not appreciated. 20:25 Respiratory: the patient does not display signs of respiratory distress, Respirations: labored breathing, that is mild, intercostal retractions, are absent, Breath sounds: decreased breath sounds, that are moderate, throughout, wheezing: that is mild, is heard diffusely. 20:25 Abdomen/GI: Inspection: abdomen appears normal, Palpation: abdomen is soft and non-tender, in all quadrants. 20:25 Back: pain, is absent, ROM is normal. 20:25 Neuro: Orientation: to person, place \T\ time. Mentation: is normal, Motor: moves all fours, strength is normal, Sensation: is normal. 21:33 ECG was reviewed by the Attending Physician. cp Vital Signs: 20:08 BP 137 / 84; Pulse 92; Resp 28; Temp 98.0; Pulse Ox 98% on 5 lpm NC; Weight 58.97 kg; em Height 5 ft. 6 in. (167.64 cm); Pain 0/10; 20:30 BP 142 / 72; Pulse 93; Resp 17; Pulse Ox 97% 4 lpm ; Pain 6/10; dc2 21:30 BP 153 / 70; Pulse 101; Resp 20; Pulse Ox 90% on 3 lpm NC; Pain 5/10; dc2 22:15 BP 137 / 60; Pulse 65; Resp 17; Temp 97; Pulse Ox 97% on 4 lpm NC; Pain 4/10; dc2 23:00 BP 145 / 68; Pulse 104; Resp 21; Pulse Ox 93% on 4 lpm NC; Pain 3/10; dc2 12/10 00:00 BP 152 / 60; Pulse 108; Resp 24; Pulse Ox 92% on 4 lpm NC; Pain 3/10; dc2 12/09 20:08 Body Mass Index 20.98 (58.97 kg, 167.64 cm) em MDM: 12/09 20:08 Patient medically screened. ma2 21:00 Differential diagnosis: CHF exacerbation, Chronic Obstructive Pulmonary Disease cp Myocardial Infarction Pneumothorax pulmonary edema, Pulmonary Embolism Sepsis Unstable Angina. 23:15 Data reviewed: vital signs, nurses notes, lab test result(s), EKG, radiologic studies. cp 23:15 Antibiotic administration: Not indicated, the patient does not have an appreciated cp infiltrate. Test interpretation: by ED physician or midlevel provider: ECG, plain radiologic studies. Physician consultation: Ananda NERI was contacted at 23:15, regarding admission, to the telemetry unit. patient's condition, and will see patient in ED, shortly. 12/09 20:11 Order name: Basic Metabolic Panel; Complete Time: 21:58 cp 12/09 21:59 Interpretation: Normal except: GLUC 256. cp 12/09 20:11 Order name: CBC with Diff; Complete Time: 21:40 cp 12/09 21:40 Interpretation: Reviewed. cp 12/09 20:11 Order name: LFT's; Complete Time: 21:58 cp 12/09 20:11 Order name: Magnesium; Complete Time: 21:58 cp 12/09 21:59 Interpretation: MG 2.4; Reviewed. cp 12/09 20:11 Order name: NT PRO-BNP; Complete Time: 21:58 cp 12/09 21:59 Interpretation: Abnormal: NT PRO-BNP 433. cp 12/09 20:11 Order name: PT-INR; Complete Time: 21:40 cp 12/09 20:11 Order name: Troponin (emerg Dept Use Only); Complete Time: 21:58 12/09 20:11 Order name: ABG; Complete Time: 21:40 12/09 20:48 Order name: Influenza Screen (a \T\ B) 12/09 22:16 Order name: SARS-COV-2 RT PCR EDCT 12/10 04:28 Order name: CBC with Automated Diff EDMS 12/10 05:11 Order name: Manual Differential EDMS 12/10 05:13 Order name: Comprehensive Metabolic Panel EDMS 12/09 20:11 Order name: XRAY Chest (1 view); Complete Time: 21:40 cp 12/09 20:11 Order name: EKG; Complete Time: 20:11 cp 12/09 20:11 Order name: Cardiac monitoring; Complete Time: 20:37 12/09 20:11 Order name: EKG - Nurse/Tech; Complete Time: 22:16 cp 12/09 20:11 Order name: IV Saline Lock; Complete Time: 20:37 cp 12/10 05:13 Order name: Phosphorus EDMS 12/10 05:13 Order name: Lipid Profile EDMS 12/10 05:13 Order name: T4 Free EDMS 12/10 05:13 Order name: Magnesium EDMS 12/10 05:13 Order name: Thyroid Stimulating Hormone EDMS 12/10 05:25 Order name: Hemoglobin A1c EDMS 12/10 08:03 Order name: Glucose, Ancillary Testing EDMS 12/10 11:44 Order name: Glucose, Ancillary Testing EDMS 12/09 20:11 Order name: Labs collected and sent; Complete Time: 20:49 cp 12/09 20:11 Order name: O2 Per Protocol; Complete Time: 20:37 cp 12/09 20:11 Order name: O2 Sat Monitoring; Complete Time: 20:37 cp EC:33 Rate is 98 beats/min. Rhythm is regular. AK interval is normal. QRS interval is normal. cp QT interval is normal. T waves are Inverted in leads aVL, aVR. Interpreted by me. Reviewed by me. Administered Medications: 20:46 Drug: Albuterol - atroVENT (ipratropium) (3:1) (2.5 mg - 0.5 mg) 3 ml Route: Nebulizer; dc2 22:00 Drug: Motrin (ibuprofen) 400 mg Route: PO; dc2 23:00 Follow up: Response: Pain is decreased dc2 12/10 00:36 Drug: DuoNeb (albuterol 2.5 mg, ipratropium 0.5 mg) (3:1) (2.5 mg - 0.5 mg) 3 ml Route: dc2 Nebulizer; Disposition Summary: 12/09/20 23:21 Hospitalization Ordered Hospitalization Status: Inpatient Admission cp Provider: Ananda Tijerina cp Condition: Stable cp Problem: an acute exacerbation cp Symptoms: have improved cp Bed/Room Type: Standard cp Location: Telemetry/MedSurg (Inpatient)(12/10/20 13:08) ja1 Room Assignment: 220(12/10/20 13:08) ja1 Diagnosis - COPD/ Chronic obstructive pulmonary disease with (acute) exacerbation cp Forms: - Medication Reconciliation Form cp - SBAR form cp Signatures: Dispatcher [employer] Radu Edmond RN RN em Iván Stuart PA PA cp Louise Hinojosa RN RN Selvin Chavez RN RN ja1 Brian Kirk MD MD la2 Rolf, SIDDHARTH Killian RN minnie2 Corrections: (The following items were deleted from the chart) 12/09 20:52 20:10 PMHx: COPD; em dc2 20:52 20:10 PMHx: Hypertension; em dc2 20:52 20:10 PMHx: Diabetes (non-insulin dependant); em dc2 22:16 20:48 CORONAVIRUS+MR.LAB.BRZ ordered. EDCT EDMS 23:41 23:21 Telemetry/MedSurg (Inpatient) cp cg : 23:21 cp cg 12/10 13:08 12/09 23:41 [facility] [place] [facility] cg ja1 12/10 13:08 12[facility]09 [facility]
--- NOTE | 2020-12-10 00:49 | P.HP ---
Certification for Inpatient Patient admitted to: Inpatient With expected LOS: <2 Midnights Patient will require the following post-hospital care: None Practitioner: I am a practitioner with admitting privileges, knowledge of patient current condition, hospital course, and medical plan of care. Services: Services provided to patient in accordance with Admission requirements found in Title 42 Section 412.3 of the Code of Federal Regulations Patient History Date of Service: 12/10/20 Reason for admission: copd exacerbation History of Present Illness: Ms. Reyes is a 64 yo F with COPD on home oxygen, CAD s/p 2 cardiac stents, HTN, HLD, T2DM who presents with two weeks of increased SOB, TORO, and productive cough. She has had to increase her home oxygen from 3L up to 6L. She is no longer having relief of symptoms with albuterol. She has also had to increase her breathing treatments at home. She feels like she is having palpitations and dry mouth with her steroid and inhaler use. She reports feeling 'foggy' and confused over the past few weeks. She also reports increasing weakness with ambulation. She has had increased hospitalizations for her COPD exacerbations over the past few months. She is scheduled to see her disability hearing officer tomorrow. Patient has had two MIs over the past year and a half. She has been unable to consistently follow with cardiology and other specialists due to lack of insurance, but she turns 65 tomorrow and will have access to Medicare. Allergies No Known Allergies Allergy (Unverified 01/20/17 20:18) Home Medications: Albuterol Sulfate 2.5 mg IH BID PRN 01/21/17 Albuterol Sulfate [Proair Hfa] 2 puff IH TID PRN #1 [email or web address] 06/09/20 Atorvastatin Calcium [Lipitor] 80 mg PO BEDTIME 06/09/20 Clopidogrel Bisulfate [Plavix*] 75 mg PO DAILY 06/09/20 Fluoxetine HCl 20 mg PO 06/09/20 Lamotrigine [Lamictal] 100 mg PO BID 06/09/20 Metformin HCl 500 mg PO BID 06/09/20 Metoprolol Tartrate 25 mg PO Q12HR 06/09/20 Nicotine [Nicoderm*] 21 mg TD DAILY #30 patch.td24 06/09/20 Trazodone HCl 100 mg PO BEDTIME 06/09/20 predniSONE [Prednisone] 20 mg PO SEECOM #21 tablet 06/09/20 Aspirin [Aspirin EC 81 MG] 81 mg PO DAILY 12/10/20 Buspirone HCl 15 mg PO BID 12/10/20 Fluticasone/Umeclidin/Vilanter [Trelegy Ellipta 100-62.5-25] 1 puff PO DAILY 12/10/20 Guaifenesin/Dextromethorphan [Mucus Dm Max ER 1,200-60 mg Tb] 1 tab PO BID 12/10/20 Linagliptin [Tradjenta] 5 mg PO DAILY 12/10/20 - Past Medical/Surgical History Diabetic: No -: COPD -: HTN -: Diabetes mellitus type 2 -: CAD -: Depression -: Psychosocial/ Personal History: Patient is retired, lives with her daughter - Family History Father Notes: Patient is adopted - Social History Smoking Status: Current every day smoker Alcohol use: No CD- Drugs: No Caffeine use: Yes Place of Residence: Home Review of Systems 10-point ROS is otherwise unremarkable General: Weakness, Malaise Eyes: Unremarkable ENT: Unremarkable Respiratory: Cough, Shortness of Breath, SOB with Excertion, Sputum, Wheezing Cardiovascular: Unremarkable Gastrointestinal: Unremarkable Genitourinary: Unremarkable Musculoskeletal: Unremarkable Integumentary: Unremarkable Neurological: Weakness Lymphatics: Unremarkable Physical Examination - Physical Exam General: Alert, In no apparent distress, Cooperative, Cachectic HEENT: Atraumatic, PERRLA, Mucous membr. moist/pink, EOMI, Sclerae nonicteric Neck: Supple, 2+ carotid pulse no bruit, No LAD, Without JVD or thyroid abnormality Respiratory: Diminished, Expiratory wheezes Cardiovascular: No edema, Regular rate/rhythm, Normal S1 S2 Gastrointestinal: Normal bowel sounds, No tenderness Musculoskeletal: No tenderness Integumentary: No rashes Neurological: Normal speech, Normal strength at 5/5 x4 extr, Normal tone, Normal affect Lymphatics: No axilla or inguinal lymphadenopathy - Studies Laboratory Data (last 24 hrs) 12/09/20 20:15: PT 11.3, INR 0.98 12/09/20 20:15: WBC 9.30, Hgb 14.1, Hct 42.6, Plt Count 273 12/09/20 20:15: Sodium 139, Potassium 4.1, BUN 13, Creatinine 0.66, Glucose 256 H, Magnesium 2.4 D, Total Bilirubin 0.2, AST 26, ALT 36, Alkaline Phosphatase 65 Microbiology Data (last 24 hrs): 12/09/20 20:48 Nasopharnyx Influenza Type A Antigen Screen - Final 12/09/20 20:48 Nasopharnyx Influenza Type B Antigen Screen - Final Assessment and Plan - Problems (Diagnosis) (1) T2DM (type 2 diabetes mellitus) Current Visit: Yes Status: Chronic 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: without longshore equipment operator use Diabetes mellitus complication status: without complication Qualified Code(s): E11.9 - Type 2 diabetes mellitus without complications (2) COPD exacerbation Onset Date: 01/21/17 Current Visit: No Status: Acute (3) HTN (hypertension) Onset Date: 01/21/17 Current Visit: No Status: Chronic Qualifiers: Hypertension type: primary hypertension Qualified Code(s): I10 - Essential (primary) hypertension (4) Anxiety Current Visit: No Status: Chronic (5) Tobacco abuse Onset Date: 01/21/17 Current Visit: No Status: Chronic - Plan pulm consulted continue breathing treatments, IV steroids, O2 antitussives PRN ECHO pending, will consider carotid US sliding scale insulin and Accuchecks, A1c pending nicotine patch daily IV hydralazine PRN for BP spikes reconcile and continue home medications PT consulted for increased weakness social work consulted, daughter and patient have been discussing palliative care options DVT ppx Discharge Plan: Home Plan to discharge in: 48 Hours - Advance Directives Does patient have a Living Will: No Does patient have a Durable POA for Healthcare: No - Code Status/Comfort Care Code Status Assessed: Yes (full code ) Critical Care: No Time Spent Managing Pts Care (In Minutes): 70
[2020-12-10 01:13] VITALS: BMI 22.1
[2020-12-10] MEDS ORDERED: ACETAMINOPHEN 500 MG TAB PO PRN (01:13)
[2020-12-10] MEDS ORDERED: HYDRALAZINE HCL 20 MG/ML VIAL IV PRN (01:13)
[2020-12-10] MEDS ORDERED: TRAZODONE 50 MG TABLET PO PRN (01:13)
[2020-12-10] MEDS ORDERED: ONDANSETRON 4 MG/2 ML VIAL IV PRN (01:13)
[2020-12-10] MEDS ORDERED: BENZONATATE 100 MG CAP PO PRN (01:13)
[2020-12-10] MEDS ORDERED: ALBUTEROL 2.5 MG/3 ML NEB SOL ONE (01:32)
[2020-12-10] MEDS ORDERED: IPRATROPIUM BROM 0.5MG/2.5ML ONE ×4 (01:32→14:24)
[2020-12-10] MEDS: LEVALBUTEROL 1.25 MG/3 ML NEB NEB SCH ×4 (02:00→18:55)
[2020-12-10] MEDS: IPRATROPIUM BROM 0.5MG/2.5ML NEB SCH ×4 (02:00→18:55)
[2020-12-10] MEDS: METHYLPREDNISOLONE 40 MG INJ IV SCH ×2 (02:15→08:27)
[2020-12-10] MEDS ORDERED: METHYLPREDNISOLONE 40 MG INJ ONE ×2 (02:59→09:15)
[2020-12-10 04:12] LABS: Absolute Lymphocytes (CBC) 0.4 K/uL (0.7-4.9); Basophils % 0.1 % (0-1.3); Hematocrit 44.6 % (36.0-45.0); MPV 7.9 fL (7.6-11.3); RBC Red Blood Cell Count 4.66 M/uL (3.86-4.86)
[2020-12-10 05:07] LABS: Albumin 3.8 g/dL (3.4-5.0); Bilirubin Total 0.3 mg/dL (0.2-1.0); Magnesium 2.3 mg/dL (1.8-2.4); Phosphorus 4.1 mg/dL (2.5-4.9); Potassium 4.5 mmol/L (3.5-5.1); Protein, Total 7.4 g/dL (6.4-8.2); Thyroid Stimulating Hormone 0.582 uIU/mL (0.360-3.740)
[2020-12-10 05:10] LABS: Blood Morphology Comment NOT SEEN (NOT SEEN); Platelet Estimate ADEQ
[2020-12-10] MEDS: METOPROLOL TAR 25 MG TAB PO SCH ×2 (05:28→17:57)
[2020-12-10] MEDS: INSULIN -REGULAR HUMAN 50 UNIT/0.5 ML ML SQ SCH ×5 (05:28→19:52)
[2020-12-10] MEDS ORDERED: INSULIN -REGULAR HUMAN 50 UNIT/0.5 ML ML ONE ×3 (06:21→12:36)
[2020-12-10] MEDS ORDERED: METOPROLOL TAR 25 MG TAB ONE (06:22)
[2020-12-10] MEDS ORDERED: INSULIN -REGULAR HUMAN 50 UNIT/0.5 ML ML SQ SCH (07:30)
[2020-12-10] MEDS: ENOXAPARIN 40 MG/0.4 ML SQ SCH (08:26)
[2020-12-10] MEDS: ASPIRIN 81 MG CHEWABLE TABLET PO SCH (08:26)
[2020-12-10] MEDS: NICOTINE 14 MG/PAT TD SCH (08:27)
[2020-12-10] MEDS: CLOPIDOGREL 75 MG TABLET PO SCH (08:27)
--- NOTE | 2020-12-10 08:33 | P.CNS ---
Date of Consult: 12/10/20 Chief Complaint: copd exacerbation History of Present Illness: Age 64 metabolic synd and CAD AW inc SOB/ has home O2, recureent exacerbations of COPD/ complaint with meds HAs Treelgy at home/ Doign better Still smoking Allergies No Known Allergies Allergy (Unverified 01/20/17 20:18) Home Medications: Albuterol Sulfate 2.5 mg IH BID PRN 01/21/17 Albuterol Sulfate [Proair Hfa] 2 puff IH TID PRN #1 hfa.aer.ad 06/09/20 Atorvastatin Calcium [Lipitor] 80 mg PO BEDTIME 06/09/20 Clopidogrel Bisulfate [Plavix*] 75 mg PO DAILY 06/09/20 Fluoxetine HCl 20 mg PO DAILY 06/09/20 Lamotrigine [Lamictal] 100 mg PO BID 06/09/20 Metformin HCl 1,000 mg PO BID 06/09/20 Metoprolol Tartrate 25 mg PO BID 06/09/20 Nicotine [Nicoderm*] 21 mg TD DAILY #30 patch.td24 06/09/20 Trazodone HCl 100 mg PO BEDTIME 06/09/20 predniSONE [Prednisone] 20 mg PO SEECOM #21 tablet 06/09/20 Aspirin [Aspirin EC 81 MG] 81 mg PO DAILY 12/10/20 Buspirone HCl 15 mg PO BID 12/10/20 Fluticasone/Umeclidin/Vilanter [Trelegy Ellipta 100-62.5-25] 1 puff PO DAILY 12/10/20 Guaifenesin/Dextromethorphan [Mucus Dm Max ER 1,200-60 mg Tb] 1 tab PO BID 12/10/20 Linagliptin [Tradjenta] 5 mg PO DAILY 12/10/20 - Past Medical/Surgical History Diabetic: No -: COPD -: HTN -: Diabetes mellitus type 2 -: CAD -: Depression -: Psychosocial/ Personal History: Patient is retired, lives with her daughter - Family History Father Notes: Patient is adopted - Social History Smoking Status: Current every day smoker Alcohol use: No CD- Drugs: No Caffeine use: Yes Place of Residence: Home Review of Systems General: Weakness Respiratory: Cough, Shortness of Breath Physical Examination Temp Pulse Resp BP Pulse Ox 111 H 20 139/98 H 91 12/10/20 05:28 12/10/20 04:00 12/10/20 05:28 12/10/20 04:00 General: Alert, In no apparent distress, Oriented x3 Respiratory: Expiratory wheezes Cardiovascular: No edema, Regular rate/rhythm, Normal S1 S2 Gastrointestinal: Normal bowel sounds, Soft and benign Musculoskeletal: No clubbing, No swelling, No warmth Integumentary: No breakdown Laboratory Data (last 24 hrs) 12/09/20 20:15: PT 11.3, INR 0.98 12/09/20 20:15: WBC 9.30, Hgb 14.1, Hct 42.6, Plt Count 273 12/09/20 20:15: Sodium 139, Potassium 4.1, BUN 13, Creatinine 0.66, Glucose 256 H, Magnesium 2.4 D, Total Bilirubin 0.2, AST 26, ALT 36, Alkaline Phosphatase 65 - Problems (1) COPD exacerbation Onset Date: 01/21/17 Current Visit: No Status: Acute Plan: AW COPD exacerbation complaint/ CW Trelegy resume pred a t home . labs reviewed sat's normal onRA/ Resume Metformin was DC due to Ct scan had an ankle injury
[2020-12-10] MEDS ORDERED: LEVALBUTEROL 1.25 MG/3 ML NEB ONE ×2 (08:49→14:24)
[2020-12-10] MEDS: predniSONE 20 MG TAB PO SCH ×2 (09:00→19:52)
[2020-12-10] MEDS ORDERED: NICOTINE 21 MG/PAT TD ONE (09:14)
[2020-12-10] MEDS ORDERED: CLOPIDOGREL 75 MG TABLET ONE (09:14)
[2020-12-10] MEDS ORDERED: ASPIRIN 81 MG CHEWABLE TABLET ONE (09:14)
[2020-12-10] MEDS ORDERED: ENOXAPARIN 40 MG/0.4 ML SQ ONE (09:15)
[2020-12-10] MEDS ORDERED: ASPIRIN EC 81 MG TAB PO SCH (09:16)
[2020-12-10] MEDS: lamoTRIgine 100 MG TAB PO SCH ×2 (09:17→19:53)
[2020-12-10] MEDS ORDERED: [UNRECOGNIZED DRUG - OTHER] PO SCH (09:17)
[2020-12-10] MEDS: Fluticasone/Umeclidin/Vilanter [Trelegy Ellipta 100-62.5-25] Blst.W.Dev PO SCH (09:17)
[2020-12-10] MEDS ORDERED: DEXTROMETHORPHAN PO SCH (09:17)
[2020-12-10] MEDS: FLUOXETINE 20 MG CAP PO SCH (09:17)
[2020-12-10] MEDS ORDERED: GUAIFENESIN PO SCH (09:17)
[2020-12-10] MEDS ORDERED: CLOPIDOGREL 75 MG TABLET PO SCH (09:17)
[2020-12-10] MEDS: BUSPIRONE HCL 15 MG TABLET PO SCH ×2 (09:17→19:55)
[2020-12-10] MEDS ORDERED: METOPROLOL TAR 25 MG TAB PO SCH (09:18)
[2020-12-10] MEDS ORDERED: NICOTINE 21 MG/PAT TD SCH (09:18)
--- NOTE | 2020-12-10 11:47 | EKG ---
Test Date: 2020-12-09 Test Time: 21:25:10 Street Photographer: LOW MEASUREMENT RESULTS: Intervals: Rate: 98 RI: 122 QRSD: 92 QT: 368 QTc: 469 [place]: P: 82 RI: 122 QRS: 71 T: 70 INTERPRETIVE STATEMENTS: Normal sinus rhythm Right atrial enlargement Borderline ECG Compared to ECG 12/06/2020 20:07:56 No significant changes Electronically Signed On 12-10-20 11:46:03 CDT by Ramses Palmer
--- NOTE | 2020-12-10 12:23 | ECHO ---
HEIGHT: 5 ft 6 in WEIGHT: 137 lb 0 oz DATE OF STUDY: 12/10/[address]: Ananda Tijerina 2-DIMENSIONAL: YES M.MODE: YES DOPPLER: YES COLOR FLOW: YES TDS: YES PORTABLE: DEFINITY: BUBBLE STUDY: DIAGNOSIS: DYSPNEA CARDIAC HISTORY: CATHERIZATION: NO SURGERY: NO PROSTHETIC VALVE: NO PACEMAKER: NO MEASUREMENTS (cm) DIASTOLIC (NORMALS) SYSTOLIC (NORMALS) IVSd 1.0 (0.6-1.2) LA Diam 2.1 (1.9-4.0) LVEF 58% LVIDd 2.7 (3.5-5.7) LVIDs 1.9 (2.0-3.5) %FS 29% LVPWd 1.0 (0.6-1.2) Ao Diam 1.7 (2.0-3.7) 2 DIMENSIONAL ASSESSMENT: RIGHT ATRIUM: NORMAL LEFT ATRIUM: NORMAL RIGHT VENTRICLE: NORMAL LEFT VENTRICLE: NORMAL TRICUSPID VALVE: NORMAL MITRAL VALVE: NORMAL PULMONIC VALVE: NORMAL AORTIC VALVE: NORMAL PERICARDIAL EFFUSION: NONE AORTIC ROOT: NORMAL LEFT VENTRICULAR WALL MOTION: DECREASED LEFT VENTRICULAR COMPLIANCE DOPPLER/COLOR FLOW: DECREASED LEFT VENTRICULAR COMPLIANCE. COMMENTS: DECREASED LEFT VENTRICULAR COMPLIANCE. GRADE I DIASTOLIC DYSFUNCTION. NORMAL LEFT VENTRICULAR SIZE. NORMAL EJECTION FRACTION. TECHNOLOGIST: JAYDA LAL
--- NOTE | 2020-12-10 17:14 | P.PN ---
Subjective Date of Service: 12/10/20 Chief Complaint: copd exacerbation Patient reports improvement in her shortness of breath. She was to coughing and wheezing when I saw her in the ED. Her oxygen saturation dropped to 89% on room air. Physical Examination - Vital Signs Temperature: 96.6 F Blood Pressure: 189/79 Pulse: 86 Respirations: 18 Pulse Ox (%): 94 - Physical Exam General: Alert, Oriented x3, Mild distress HEENT: Mucous membr. moist/pink Neck: Supple, JVD not distended Respiratory: Diminished, Other (Mild expiratory wheezes.) Cardiovascular: No edema, Regular rate/rhythm, Normal S1 S2 Gastrointestinal: Soft and benign, Non-distended, No tenderness Musculoskeletal: No swelling Integumentary: No cyanosis Neurological: Normal strength at 5/5 x4 extr - Studies Laboratory Data (last 24 hrs) 12/09/20 20:15: PT 11.3, INR 0.98 12/09/20 20:15: WBC 9.30, Hgb 14.1, Hct 42.6, Plt Count 273 12/09/20 20:15: Sodium 139, Potassium 4.1, BUN 13, Creatinine 0.66, Glucose 256 H, Magnesium 2.4 D, Total Bilirubin 0.2, AST 26, ALT 36, Alkaline Phosphatase 65 Microbiology Data (last 24 hrs): 12/09/20 20:48 Nasopharnyx Influenza Type A Antigen Screen - Final 12/09/20 20:48 Nasopharnyx Influenza Type B Antigen Screen - Final Assessment And Plan - Current Problems (Diagnosis) (1) T2DM (type 2 diabetes mellitus) Current Visit: Yes Status: Chronic Qualifiers: Diabetes mellitus fdc insulin use: without fdc use Diabetes mellitus complication status: without complication Qualified Code(s): E11.9 - Type 2 diabetes mellitus without complications (2) COPD exacerbation Onset Date: 01/21/17 Current Visit: No Status: Acute (3) Anxiety Current Visit: No Status: Chronic (4) HTN (hypertension) Onset Date: 01/21/17 Current Visit: No Status: Chronic Qualifiers: Hypertension type: primary hypertension Qualified Code(s): I10 - Essential (primary) hypertension (5) Diabetes mellitus type 2 in nonobese Current Visit: Yes Status: Acute - Plan Patient slowly improving with nebs and steroids. Patient with a history of chronic respiratory failure on 2-3 L of oxygen by nasal cannula at baseline. Continue steroid. Scheduled bronchodilators. Pulmonary input appreciated. Smoking cessation advised. Hemoglobin A1c noted to be 9.0. Patient diagnoses DM type 2. Echocardiogram shows mild diastolic dysfunction, normal EF. Metformin is on hold. Steroid contributing to hyperglycemia. Manage blood sugar with insulin sliding scale and Lantus insulin.
[2020-12-10] MEDS ORDERED: GLUCAGON 1 MG/VIAL IM PRN (17:17)
[2020-12-10] MEDS ORDERED: D50W 25 GM/50 ML SYRINGE IV PRN (17:17)
[2020-12-10] MEDS: MUCINEX DM 12HR.SR TAB PO SCH (19:54)
[2020-12-10] MEDS ORDERED: HOME MED 1 EA UNK (Trazodone Hcl [Trazodone Hcl] 100 MG Tablet) PO SCH (21:00)
[2020-12-10] MEDS ORDERED: INSULIN GLARGINE 100 UNITS/ML SQ SCH (21:00)
[2020-12-10] MEDS ORDERED: ATORVASTATIN 80 MG TAB PO SCH ×2 (21:00)
[2020-12-11] MEDS: IPRATROPIUM BROM 0.5MG/2.5ML NEB SCH ×2 (01:25→07:36)
[2020-12-11] MEDS: LEVALBUTEROL 1.25 MG/3 ML NEB NEB SCH ×2 (01:25→07:36)
[2020-12-11 04:57] LABS: Absolute Lymphocytes (CBC) 0.8 K/uL (0.7-4.9); Basophils % 0.2 % (0-1.3); Hematocrit 40.8 % (36.0-45.0); Lymphocytes % 6.6 % (15.3-44.8); MPV 7.9 fL (7.6-11.3); RBC Red Blood Cell Count 4.35 M/uL (3.86-4.86)
[2020-12-11 05:08] LABS: Potassium 4.8 mmol/L (3.5-5.1)
[2020-12-11] MEDS: METOPROLOL TAR 25 MG TAB PO SCH (06:27)
[2020-12-11] MEDS: INSULIN -REGULAR HUMAN 50 UNIT/0.5 ML ML SQ SCH (08:11)
[2020-12-11] MEDS: BUSPIRONE HCL 15 MG TABLET PO SCH (08:13)
[2020-12-11] MEDS: predniSONE 20 MG TAB PO SCH (08:13)
[2020-12-11] MEDS: lamoTRIgine 100 MG TAB PO SCH (08:13)
[2020-12-11] MEDS: FLUOXETINE 20 MG CAP PO SCH (08:13)
[2020-12-11] MEDS: ASPIRIN 81 MG CHEWABLE TABLET PO SCH (08:13)
[2020-12-11] MEDS: CLOPIDOGREL 75 MG TABLET PO SCH (08:13)
[2020-12-11] MEDS: ENOXAPARIN 40 MG/0.4 ML SQ SCH (08:14)
[2020-12-11] MEDS: NICOTINE 14 MG/PAT TD SCH (08:14)
[2020-12-11] MEDS: MUCINEX DM 12HR.SR TAB PO SCH (08:15)
[2020-12-11] MEDS: Fluticasone/Umeclidin/Vilanter [Trelegy Ellipta 100-62.5-25] Blst.W.Dev PO SCH (08:16)
[2020-12-11 08:27] VITALS: BP 153/79; TEMP 97.3
[2020-12-11 09:00] VITALS: O2SAT 95
[2020-12-11] MEDS ORDERED: Linagliptin [Tradjenta] 5 MG Tablet PO SCH (09:00)
--- NOTE | 2020-12-11 09:59 | P.DS ---
Admission Date: 12/09/20 Discharge Date: 12/11/20 Disposition: DC HOME/HOME HEALTH CARE Discharge Condition: FAIR Reason for Admission: copd exacerbation - Problems (1) T2DM (type 2 diabetes mellitus) Status: Chronic Qualifiers: Diabetes mellitus buttermaker continuous churn insulin use: without assisted use Diabetes mellitus complication status: without complication Qualified Code(s): E11.9 - Type 2 diabetes mellitus without complications (2) COPD exacerbation Onset Date: 01/21/17 Status: Acute (3) Anxiety Status: Chronic (4) HTN (hypertension) Onset Date: 01/21/17 Status: Chronic Qualifiers: Hypertension type: primary hypertension Qualified Code(s): I10 - Essential (primary) hypertension (5) Diabetes mellitus type 2 in nonobese Status: Acute Brief History of Present Illness: 64 y/o wpman with COPD on home oxygen, CAD s/p 2 cardiac stents, HTN, HLD, T2DM presented with two weeks of increased SOB, TORO, and productive cough. She has had to increase her home oxygen from 3L up to 6L. She stated her shortness of breath and wheezing did not respond to her home nebulizers. She has had frequent hospitalizations for her COPD exacerbations over the past few months. She has been unable to consistently follow with her specialists due to lack of insurance. Chest x-ray emphysema. Blood work significant for severe hyperglycemia. Patient hospitalized for further management. Hospital Course: Patient admitted to the medical floor and treated for COPD exacerbation with IV steroids, scheduled bronchodilators, and nebs. Patient was maintained on 3 L of oxygen by nasal cannula which is her baseline. Her respiratory status improved with treatment. Patient seen in consultation by pulmonary and deemed stable for discharge. She is discharged with oral prednisone therapy to continue treatment for COPD exacerbation. Vital Signs/Physical Exam: Temp Pulse Resp BP Pulse Ox 97.3 F 86 18 153/79 H 91 12/11/20 08:00 12/11/20 08:00 12/11/20 08:00 12/11/20 08:00 12/11/20 08:00 General: Alert, In no apparent distress, Oriented x3 HEENT: Mucous membr. moist/pink, Sclerae nonicteric Neck: Supple, JVD not distended Respiratory: Diminished, Other (Mild scattered expiratory wheezes.) Gastrointestinal: Normal bowel sounds, Soft and benign, Non-distended, No tenderness Musculoskeletal: No swelling Integumentary: No rashes, No tenderness/swelling Neurological: Normal speech, Normal strength at 5/5 x4 extr Laboratory Data at Discharge: WBC 12.90 K/uL (4.3-10.9) H D 12/11/20 04:46 Hgb 13.4 g/dL (12.0-15.0) 12/11/20 04:46 Hct 40.8 % (36.0-45.0) 12/11/20 04:46 Plt Count 271 K/uL (152-406) 12/11/20 04:46 PT 11.3 SECONDS (9.5-12.5) 12/09/20 20:15 INR 0.98 12/09/20 20:15 Sodium 138 mmol/L (136-145) 12/11/20 04:46 Potassium 4.8 mmol/L (3.5-5.1) 12/11/20 04:46 BUN 15 mg/dL (7-18) 12/11/20 04:46 Creatinine 0.70 mg/dL (0.55-1.3) 12/11/20 04:46 Glucose 311 mg/dL (74-106) H 12/11/20 04:46 Phosphorus 4.1 mg/dL (2.5-4.9) 12/10/20 04:02 Magnesium 2.3 mg/dL (1.8-2.4) 12/10/20 04:02 Total Bilirubin 0.3 mg/dL (0.2-1.0) 12/10/20 04:02 AST 22 U/L (15-37) 12/10/20 04:02 ALT 40 U/L (12-78) 12/10/20 04:02 Alkaline Phosphatase 85 U/L (45-117) 12/10/20 04:02 Triglycerides 87 mg/dL (<150) 12/10/20 04:02 Cholesterol 148 mg/dL (<200) 12/10/20 04:02 HDL Cholesterol 63 mg/dL (40-60) H 12/10/20 04:02 Cholesterol/HDL Ratio 2.35 12/10/20 04:02 Home Medications: Albuterol Sulfate 2.5 mg IH BID PRN 01/21/17 Albuterol Sulfate [Proair Hfa] 2 puff IH TID PRN #1 hfa.aer.ad 06/09/20 Atorvastatin Calcium [Lipitor] 80 mg PO BEDTIME 06/09/20 Clopidogrel Bisulfate [Plavix*] 75 mg PO DAILY 06/09/20 Fluoxetine HCl 20 mg PO DAILY 06/09/20 Lamotrigine [Lamictal] 100 mg PO BID 06/09/20 Metformin HCl 1,000 mg PO BID 06/09/20 Metoprolol Tartrate 25 mg PO BID 06/09/20 Nicotine [Nicoderm*] 21 mg TD DAILY #30 patch.td24 06/09/20 Trazodone HCl 100 mg PO BEDTIME 06/09/20 Aspirin [Aspirin EC 81 MG] 81 mg PO DAILY 12/10/20 Buspirone HCl 15 mg PO BID 12/10/20 Fluticasone/Umeclidin/Vilanter [Trelegy Ellipta 100-62.5-25] 1 puff PO DAILY 12/10/20 Linagliptin [Tradjenta] 5 mg PO DAILY 12/10/20 Benzonatate [Tessalon Perle*] 100 mg PO TID PRN #30 cap 12/11/20 Guaifenesin/Dextromethorphan [Mucus Dm Max ER 1,200-60 mg Tb] 1 tab PO BID #30 12/11/20 Ipratropium Neb [Atrovent*] 0.5 mg NEB [id number] #120 amp 12/11/20 levoFLOXacin [Levaquin] 750 mg PO DAILY #5 tab 12/11/20 predniSONE [Prednisone*] 20 mg PO BID #14 tab 12/11/20 New Medications: Ipratropium Neb [Atrovent*] 0.5 mg NEB [id number] #120 amp levoFLOXacin [Levaquin] 750 mg PO DAILY #5 tab Guaifenesin/Dextromethorphan [Mucus Dm Max ER 1,200-60 mg Tb] 1 tab PO BID #30 predniSONE [Prednisone*] 20 mg PO BID #14 tab Benzonatate [Tessalon Perle*] 100 mg PO TID PRN #30 cap PRN Reason: Cough Diet: ADA Activity: Ad darby Followup: Alonso Licona MD [ACTIVE - CAN ADMIT] - 1-2 Weeks (Call to schedule appointment.) NONE,NONE [Primary Care Provider] - 1-2 Weeks (Call to schedule appointment.) Time spent managing pt's care (in minutes): 36
== END 2020-12-11 10:39 | disposition home or self-care (01) | DRG 191 ==
LOC: ER 20:06 → ERHOLD 23:18 → 2ND 12-10 14:48
PROVIDERS: ADMIT Internal Medicine; ATTEND Internal Medicine
DX: J44.1 Chronic obstructive pulmonary disease with (acute) exacerbation (principal); R64 Cachexia; J96.10 Chronic respiratory failure, unspecified whether with hypoxia or hypercapnia; F17.210 Nicotine dependence, cigarettes, uncomplicated; I25.10 Atherosclerotic heart disease of native coronary artery without angina pectoris; F41.9 Anxiety disorder, unspecified; E88.81 Metabolic syndrome and other insulin resistance; E09.65 Drug or chemical induced diabetes mellitus with hyperglycemia; E78.5 Hyperlipidemia, unspecified; I10 Essential (primary) hypertension; T38.0X5A Adverse effect of glucocorticoids and synthetic analogues, initial encounter; Z79.82 Long term (current) use of aspirin; Z79.02 Long term (current) use of antithrombotics/antiplatelets; Z79.84 Long term (current) use of oral hypoglycemic drugs; Z99.81 Dependence on supplemental oxygen; Z68.22 Body mass index [BMI] 22.0-22.9, adult; Z95.5 Presence of coronary angioplasty implant and graft; Z79.52 Long term (current) use of systemic steroids; Z79.899 Other long term (current) drug therapy; Z20.822 Contact with and (suspected) exposure to COVID-19
CPT/HCPCS: 36415; 71045; 80048; 80053; 80061; 80076; 82805; 82947; 83036; 83735; 83880; 84100; 84439; 84443; 84484; 85025; 85610; 87804; 93005; 93306; 94640; 94760; 97161; 99285; J1650; J1815; J2920; J7512; U0003

== ENCOUNTER 2021-02-18 22:41 | Emergency (ER) | payer OTHER ==
--- OUTSIDE RECORDS SUMMARY | 2021-02-18 22:45 | XMS REPORT | Continuity of Care Document ---
:1955 Author Organization [facility] t Address [address] [place] [address] Care Team Providers Name Role Phone ROSITA Lyon [facility] Primary Care Physic porsha Unavailable Doctor Unassigned, Name Attending Clinician Unavailable Filippo Attending Clinician Luiz FUNEZ JR Attending Clinician Unavailable Clifford Mike MD Attending Clinician Meghan Monae MD Attending Clinician [phone] Artie Echeverria Attending Clinician Clifford MIKE Attending Clinician Unavailable Emily Villar DO Attending Clinician Emily VILLAR Attending Clinician Unavailable Artie Echeverria Admitting Clinician Emily VILLAR Admitting Clinician Unavailable Problems Condition Condition Condition Status Onset Resolution Last Treating Co mments Source Name Details Category Date Date Treatment Clinician Date ACS (acute ACS (acute Disease Active 2019-02 U nivers coronary coronary 1-20 [place] of syndrome) [place] [address] [place] [address] SOB SOB Disease Active 2019-02 Univers (shortness (shortness 1-19 it y of of breath) [place] breath[place] [address] [place] [address] No known No known Disease Unive rs active active ity of problems problems [facility] Allergies, Adverse Reactions, Alerts Allergy Allergy Status Severity Reaction(s) Onset Inactive Treating Comm ents Source Name Type Date Date Clinician DIPHENHY DRUG Active Anxiety 2019-0 Univers DRAMINE INGREDI 6-18 ity of 00:00: [address] Diphenhy Propensi Active Anxiety 2020-0 Unive rs dramine ty to 618 ity of adverse 00:00: [place] reaction 00 Medical s Branch NO KNOWN Drug Active Univers ALLERGIE Class ity of S [place] [facility] [place] Social History Social Habit Start Date Stop Date Quantity Comments Source History of tobacco Cigarette Smoker University of use [facility] Exposure to Not sure [facility] SARS-CoV-2 (event) [facility] Cigarettes smoked 2019-12-28 2019-12-28 Univers ity of current (pack per 00:00:00 00:00:00 [facility] edical day) - Reported Branch Cigarette 2019-12-28 2019-12-28 University of pack-years 00:00:00 00:00:00 [facility] Tobacco use and 2019-12-28 2019-12-28 Never used Universit y of exposure 00:00:00 00:00:00 [facility] [place] [facility] Branch Alcohol intake 2019-12-28 2019-12-28 Lifetime University of 00:00:00 00:00:00 non-drinker [place] [facility] (finding) Branch History SDOH 2019-12-28 2019-12-28 1 University o f Alcohol Frequency 00:00:00 00:00:00 [facility] Branch History SDOH 2019-12-28 2019-12-28 99 University o f Alcohol Std Drinks 00:00:00 00:00:00 [facility] [place] [facility] Branch History SDOH 2019-12-28 2019-12-28 1 University o f Alcohol Binge 00:00:00 00:00:00 [facility] al Branch Smoking Status Start Date Stop Date Source Current every day smoker 2019-12-28 00:00:[address] [facility] Unknown if ever smoked [facility] Medications Ordered Filled Start Stop Current Ordering Indication Dosage Frequency Signature Comments Components Source Medication Medication Date Date Medication? Clinician (SIG) Name Name metFORMIN 2019-02 Yes 500mg Take 500 Uni vers 500 mg 1-21 mg by ity of tablet 20:14: mouth 2 [place] (two) Medical times Branch daily with meals. traZODone 2019-02 Yes 150mg Take 150 Uni vers 100 mg 1-21 mg by ity of tablet 20:14: mouth at [place] bedtime. Medical Branch busPIRone 2019-02 Yes 7.5mg Take 7.5 Uni vers 7.5 mg 1-21 mg by ity of tablet 20:14: mouth 2 (two) Medical times Branch daily. FLUoxetine 2019-02 Yes 20mg Take 20 mg U nivers 20 mg 1-21 by mouth ity of capsule 20:14: daily. Medical Branch lamoTRIgine 2019-02 Yes 100mg Take 100 U nivers 100 mg 1-21 mg by ity of tablet 20:14: mouth 2 (two) Medical times Branch daily. fluticasone 2019-02 Yes 1{puff} Inhale 1 Univers propionate 1-21 Puff 2 ity of 44 20:14: (two) [facility]/actuati 09 times Medical on inhaler daily. Branch albuterol 2019-02 Yes 2{puff} Inhale 2 U nivers (PROVENTIL 1-21 Puffs ity of HFA) 90 20:14: every 6 [place] mcg/actuati (six) Medical on inhaler hours as Branc h needed for Wheezing or Shortness of Breath. atorvastati 2019-02 Yes 80mg Take 80 mg Univers n (LIPITOR) 1-21 by mouth ity of 80 mg 20:14: at [place] [address] bedtime. Medical Branch mupirocin 2 2019-02 Yes Apply to U nivers % ointment 1-21 area(s) 2 ity of 20:14: (two) [place] [address] times Medical daily. Branch metoprolol 2019-02 Yes 12.5mg Take 12.5 Univers tartrate 25 1-21 mg by ity of mg tablet 20:14: mouth 2 (two) Medical times Branch daily. metFORMIN 2019-02 Yes 500mg Take 500 Uni vers 500 mg 1-21 mg by ity of tablet 20:14: mouth 2 (two) Medical times Branch daily with meals. traZODone 2019-02 Yes 150mg Take 150 Uni vers 100 mg 1-21 mg by ity of tablet 20:14: mouth at [place] [address] bedtime. Medical Branch busPIRone 2019-02 Yes 7.5mg Take 7.5 Uni vers 7.5 mg 1-21 mg by ity of tablet 20:14: mouth 2 [place] (two) Medical times Branch daily. FLUoxetine 2019-02 Yes 20mg Take 20 mg U nivers 20 mg 1-21 by mouth ity of capsule 20:14: daily. Medical Branch lamoTRIgine 2019-02 Yes 100mg Take 100 U nivers 100 mg 1-21 mg by ity of tablet 20:14: mouth 2 (two) Medical times Branch daily. fluticasone 2019-02 Yes 1{puff} Inhale 1 Univers propionate 1-21 Puff 2 ity of 44 20:14: (two) [place] mcg/actuati 09 times Medical on inhaler daily. Branch albuterol 2019-02 Yes 2{puff} Inhale 2 U nivers (PROVENTIL 1-21 Puffs ity of HFA) 90 20:14: every 6 [place] mcg/actuati (six) Medical on inhaler hours as Branc h needed for Wheezing or Shortness of Breath. atorvastati 2019-02 Yes 80mg Take 80 mg Univers n (LIPITOR) 1-21 by mouth ity of 80 mg 20:14: at [place] [address] bedtime. Medical Branch mupirocin 2 2019-02 Yes Apply to U nivers % ointment 1-21 area(s) 2 ity of 20:14: (two) [place] [address] times Medical daily. Branch metoprolol 2019-02 Yes 12.5mg Take 12.5 Univers tartrate 25 1-21 mg by ity of mg tablet 20:14: mouth 2 (two) Medical times Branch daily. metFORMIN 2019-02 Yes 500mg Take 500 Uni vers 500 mg 1-21 mg by ity of tablet 20:14: mouth 2 (two) Medical times Branch daily with meals. traZODone 2019-02 Yes 150mg Take 150 Uni vers 100 mg 1-21 mg by ity of tablet 20:14: mouth at [place] [address] bedtime. Medical Branch busPIRone 2019-02 Yes 7.5mg Take 7.5 Uni vers 7.5 mg 1-21 mg by ity of tablet 20:14: mouth 2 (two) Medical times Branch daily. FLUoxetine 2019-02 Yes 20mg Take 20 mg U nivers 20 mg 1-21 by mouth ity of capsule 20:14: daily. Medical Branch lamoTRIgine 2019-02 Yes 100mg Take 100 U nivers 100 mg 1-21 mg by ity of tablet 20:14: mouth 2 (two) Medical times Branch daily. fluticasone 2019-02 Yes 1{puff} Inhale 1 Univers propionate 1-21 Puff 2 ity of 44 20:14: (two) [place] mcg/actuati 09 times Medical on inhaler daily. Branch albuterol 2019-02 Yes 2{puff} Inhale 2 U nivers (PROVENTIL 1-21 Puffs ity of HFA) 90 20:14: every 6 [place] mcg/actuati 09 (six) Medical on inhaler hours as Branc h needed for Wheezing or Shortness of Breath. atorvastati 2019-02 Yes 80mg Take 80 mg Univers n (LIPITOR) 1-21 by mouth ity of 80 mg 20:14: at [place] tablet 09 bedtime. Medical Branch mupirocin 2 2019-02 Yes Apply to U nivers % ointment 1-21 area(s) 2 ity of 20:14: (two) [place] 09 times Medical daily. Branch metoprolol 2019-02 Yes 12.5mg Take 12.5 Univers tartrate 25 1-21 mg by ity of mg tablet 20:14: mouth 2 [place] 09 (two) Medical times Branch daily. atorvastati 2019-02 Yes 80mg 80 mg, Univ ers n (LIPITOR) 1-21 Oral, QHS, it y of tablet 80 03:00: First dose [place] mg 00 (after Medical last Branch modificati on) on Wed12/29/19 at 2100, Until Discontinu ed, Routine clopidogreL 2019-02 Yes [id number] 75mg Take 1 Univers 75 mg 1-21 tablet by ity of tablet 00:00: mouth [place] 00 daily. Medical Branch aspirin 81 2019-02 Yes [id number] 81mg Take 1 Univers mg chewable 1-21 tablet by ity of tablet 00:00: mouth [place] 00 daily. Medical Branch predniSONE 2019-02 Yes [id number] 40mg Take 2 U nivers 20 mg 1-21 tablets by ity of tablet 00:00: mouth [place] 00 daily. Medical Branch clopidogreL 2019-02 Yes [id number] 75mg Take 1 Univers 75 mg 1-21 tablet by ity of tablet 00:00: mouth [place] 00 daily. Medical Branch aspirin 81 2019-02 Yes [id number] 81mg Take 1 Univers mg chewable 1-21 tablet by ity of tablet 00:00: mouth [place] 00 daily. Medical Branch predniSONE 2019-02 Yes [id number] 40mg Take 2 U nivers 20 mg 1-21 tablets by ity of tablet 00:00: mouth 00 daily. Medical Branch aspirin 81 2019- Yes [id number] 81mg Take 1 Univers mg chewable 1-21 tablet by ity of tablet 00:00: mouth 00 daily. Medical Branch clopidogreL 2019-02- No 75mg Take 75 mg Univers 75 mg 02-27 by mouth ity of tablet 22:51: 00:00 daily. [place] 35 :00 Medical Branch clopidogreL 2019-02- No Oral, Univ ers (PLAVIX) 02-27 TITRATE - ity o f tablet 21:25: 21:25 FOR [place] 13 :13 PROCEDURE Medical USE, 1 Branch dose, Starting Wed12/29/19 at 1525, Until Wed12/29/19 at 1525, Routine ticagrelor 2019-02- No Oral, Unive rs (BRILINTA) 02-27 TITRATE - ity of tablet 20:57: 20:57 FOR [place] 39 :39 PROCEDURE Medical USE, 1 Branch dose, Starting Wed12/29/19 at 1457, Until Wed12/29/19 at 1457, Routine heparin 2019-02- No Slow IV Univer s 1,000 02-27 Push, ity of unit/mL 20:57: 20:57 TITRATE - [place] injection 02 :02 FOR Medical PROCEDURE Branch USE, 1 dose, Starting Wed12/29/19 at 1457, Until Wed12/29/19 at 1457, Routine nitroglycer 2019-02- No Intravenou Univers in (TRIDIL) 02-27 s, TITRATE i ty of 2 mg in 10 20:49: 20:49 - FOR [place] mL D5W for 28 :28 PROCEDURE Medi piedad Cardiac USE, 1 Branch Cath dose, Starting Wed12/29/19 at 1449, Until Wed12/29/19 at 1449, Routine lidocaine 2019-02- No Infiltrati U nivers 1% (PF) 02-27 on, ity of (XYLOCAINE) 20:37: 20:37 TITRATE - [place] injection 00 :00 FOR Medical PROCEDURE Branch USE, 1 dose, Starting Wed12/29/19 at 1437, Until Wed12/29/19 at 1437, Routine FENTanyl PF 2020-1 2020- No Slow IV Un destiny (SUBLIMAZE -20 -20 Push, ity of (PF)) 20:33: 20:33 TITRATE - [place] injection 00 :00 FOR Medical PROCEDURE Branch USE, 1 dose, Starting Wed12/29/19 at 1433, Until Wed12/29/19 at 1433, Routine midazolam 2019-02 2020- No IV Push, Uni vers (VERSED) -20 12-28 TITRATE - ity o f injection 20:33: 20:33 FOR [place] 00 :00 PROCEDURE Medical USE, 1 Branch dose, Starting Wed12/29/19 at 1433, Until Wed12/29/19 at 1433, Routine FLUoxetine 2019-02 Yes 20mg 20 mg, Unive rs (PROZAC) 1-20 Oral, ity of capsule 20 15:00: DAILY, [place] mg 00 First dose Medical on Wed Branch 12/29/19 at 0900, Until Discontinu ed, Routine mupirocin 2019-02 Yes Univers (BACTROBAN 1-20 ity of OINT) 2 % 14:30: [place] skin 00 Medical ointment Branch Sliding 2019-02 Yes Subcutaneo Univ ers Scale 1-20 us, TID ity of Insulin - 03:00: MEALS+HS, Nabil as Aspart 00 First dose Medical (NOVOLOG) + on [place] Branch Fsbg 12/28/19 Testing at 2100, Until Discontinu ed, Routine lamoTRIgine 2019-02 Yes 100mg 100 mg, Un destiny (LAMICTAL) 1-20 Oral, BID, ity of tablet 100 02:00: First dose [place] mg 00 on [facility] Medical 12/28/19 Branch at 2000, Until Discontinu ed, Routine predniSONE 2019-02 Yes [id number] 40mg Take 2 U nivers 20 mg 1-20 tablets by ity of tablet 00:00: mouth [place] 00 daily. Medical Branch clopidogreL 2019-02 Yes [id number] 75mg Take 1 Univers 75 mg 1-20 tablet by ity of tablet 00:00: mouth [place] 00 daily. Medical Branch predniSONE 2019-02 2020- No [id number] 40mg Take 2 Univers 20 mg 1-20 11-20 tablets by ity of tablet 00:00: 00:00 mouth [place] 00 :00 daily. Medical Branch predniSONE 2019-02 2020- No [id number] 40mg Take 2 Univers 20 mg 02-27 tablets by ity of tablet 00:00: 00:00 mouth [place] 00 :00 daily for Medical 4 days. Branch atorvastati 2019-02- No 40mg 40 mg, Uni vers n (LIPITOR) 02-26 Oral, QPM, i ty of tablet 40 23:00: 02:01 First dose [place] mg 00 :46 on [facility] Medical 12/28/19 Branch at 1700, Until Discontinu ed, Routine metoprolol 2019-02- No 25mg Take 25 mg Univers tartrate 25 02-26 by mouth 2 i ty of mg tablet 21:56: 00:00 (two) [place] 56 :00 times Medical daily. Branch sulfur 2019-02- No 5mL 5 mL, Univers hexafluorid 02-26 Intravenou i ty of e microsphr 18:45: 17:20 s, ONCE, 1 [place] (LUMASON) 00 :00 dose, [place] Medic al injection 5 12/28/19 Bran ch mL at 1245, Routine
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 medication : DEJAN GONSALEZ Saline 2019-02- No 6mL 6 mL, Univers Bubble 02-26 Injection, ity of Study 17:33: 22:27 SEE-INSTRU [place] 16 :16 CTIONS, 2 Medical doses, Branch Starting [facility] 12/28/19 at 1133, Until Wed12/29/19 at 1627, Routine Saline 2019-02 Yes 6mL 6 mL, Univers Bubble 02-26 Injection, ity of Study 17:33: SEE-INSTRU [place] 14 CTIONS, 2 Medical doses, Branch Starting [facility] 12/28/19 at 1133, Until Discontinu ed, Routine clopidogreL 2019-02 Yes 75mg 75 mg, Univ ers (PLAVIX) 02-26 Oral, ity of tablet 75 15:00: DAILY, [place] mg 00 First dose Medical on [facility] Branch 12/28/19 at 0900, Until Discontinu ed, Routine
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 medication : LEXY MONAE aspirin 2019-02 Yes 81mg 81 mg, Univers chewable 02-26 Oral, ity of tablet 81 15:00: DAILY, [place] mg 00 First dose Medical on [place] Branch 12/28/19 at 0900, Until Discontinu ed, Routine predniSONE 2019-02 No 40mg 40 mg, Univ ers (DELTASONE) 02-26 Oral, ity of tablet 40 15:00: 14:59 DAILY, 5 [place] as mg 00 :00 doses, Medical First dose Branch on [place] 12/28/19 at 0900, Last dose on 01/01/20 at 0900, Routine aspirin 2019-02 No 324mg 324 mg, Unive rs chewable 02-26 Oral, ity of tablet 324 15:00: 08:41 DAILY, [place] mg 00 :12 First dose Medical on [place] Branch 12/28/19 at 0900, Until Discontinu ed, Routine metoprolol 2019-02 Yes 12.5mg 12.5 mg, U nivers tartrate 02-26 Oral, BID, ity o f (LOPRESSOR) 14:00: First dose [place] half tablet 00 on [facility] Medica l 12.5 mg 12/28/19 Branch at 0800, Until Discontinu ed, Routine heparin 2019-02 No 12U/kg/ 12 Univer s 25,000 02-26 h Units/kg/h ity of Units/250 12:55: 22:27 r ?58.9 kg [place] mL 58 :16 (7.068 Medical (Premixed mL/hr, Branch Bag) in rounded to 0.45 % NS 7.07 mL/hr), IV Infusion, TITRATE, Parameters in Admin. Instr., Starting [facility] 12/28/19 at 0655
CA UTION - If LMWH given in ER, AVOID bolus and start next dose/drip 12 hrs after ER dosage.&nb sp; M ust program rate using programmab le infusion pump.&nbsp ; Maryana ck with the ordering provider first prior to any administra tion should the patient be on existing/a dditional anticoagul ant therapy. Rang e, Dosing and Testing: &nbs p;FOR [facility], AND [facility] ONLY &nbs p; - aPTT < 35: & nbsp;Bolus 5000 units, increase rate 300 units/hr&n bsp; - aPTT 35-44:&nbs p; Efren nam 3000 units, increase rate 200 units/hr&n bsp; - aPTT 45-54:&nbs p; In crease rate 100 units/hr&n bsp; - aPTT 55-85:&nbs p; NO CHANGE&nbs p; - aPTT 86-95:&nbs p; De crease rate 100 units/hr&n bsp; - aPTT 96-120:&nb sp; H old 30 minutes, decrease rate 150 units/hr&n bsp; - aPTT > 120: Hold 60 minutes, decrease rate 200 units/hr&a mp;nbsp;&n bsp;Check aPTT 6 hours after initiation , then Q6H after every change, aPTT Q12H once therapeuti c levels are reached.&n bsp; &nbs p; __ &n bsp;FOR [facility] ONLY - aPTT < 40: & nbsp;Bolus 5000 units, increase rate 300 units/hr&n bsp; - aPTT 40-49:&nbs p; Efren nam 3000 units, increase rate 200 units/hr&n bsp; - aPTT 50-59:&nbs p; In crease rate 100 units/hr&n bsp; - aPTT 60-85:&nbs p; NO CHANGE&nbs p; - aPTT 86-95:&nbs p; De crease rate 100 units/hr&n bsp; - aPTT 96-120:&nb sp; H old 30 minutes, decrease rate 150 units/hr&n bsp; - aPTT > 120: Hold 60 minutes, decrease rate 200 units/hr&n bsp; Check aPTT 6 hours after initiation , then Q6H after every change, aPTT Q12H once therapeuti c levels are reached.&n bsp; DO NOT ADJUST INITIAL BOLUS OR INITIAL INFUSION RATE.
heparin 2019-02 2020- No 60U/kg 3,534 Univer s 1000 02-26 Units (60 ity of unit/mL 12:00: 12:33 Units/kg [place] injection 00 :00 ?58.9 kg), Medi piedad Soln 3,534 IV Push, Branc h Units ONCE, 1 dose, [facility] 12/28/19 at 0600, Routine albuterol 2019-02 Yes 2.5mg 2.5 mg, Univ ers (PROVENTIL) 02-26 Inhalation it y of 2.5 mg /3 10:00: , Q4H, [place] mL (0.083 00 First dose Medi piedad %) on [facility] Branch nebulizer 12/28/19 solution at 0400, 2.5 mg Until Discontinu ed, Routine ipratropium 2019-02 Yes .5mg 0.5 mg, Uni vers (ATROVENT) 02-26 Inhalation ity of 0.02 % 10:00: , Q4H, [place] nebulizer 00 First dose Medi piedad solution on [facility] Branch 0.5 mg 12/28/19 at 0400, Until Discontinu ed, Routine nitroglycer 2019-02 Yes .4mg 0.4 mg, Uni vers in 02-26 Sublingual ity of (NITROSTAT) 08:37: , Q5MIN [place] as sublingual 56 PRN, Medical tablet 0.4 Starting Branc h mg [place] 12/28/19 at 0237, Until Discontinu ed, Routine, Chest pain glucagon 2019-02 Yes 1mg 1 mg, Univers (GLUCAGEN 02-26 Intramuscu ity of DIAGNOSTIC 08:37: [place], PRN, [place] KIT) 06 Starting Medical injection 1 [place] Branch mg 12/28/19 at 0237, Until Discontinu ed, ELOY, Blood Glucose < or = 70 mg/dL and patient is unable to swallow or has mental changes. dextrose 50 2019-02 Yes 25mL 25 mL, Univ ers % in water 02-26 Slow IV ity of (D50W) 08:37: Push, PRN, [place] injection 06 Starting Medica l 25 mL [place] Branch 12/28/19 at 0237, Until Discontinu ed, ELOY, Blood Glucose < or = 70 mg/dL and patient is unable to swallow or has mental status changes. acetaminoph 2019-02 Yes 650mg 650 mg, Un destiny en 02-26 Oral, ity of (TYLENOL) 08:36: Q6HPRN, [place] tablet 650 38 Starting Medic al mg [facility] Branch 12/28/19 at 0236, Until Discontinu ed, Routine, Pain (scale 1-3) nicotine 2019-02 Yes 1{patch 1 Patch, Un destiny (NICODERM) 02-26 } Topical, ity o f 21 mg/24 hr 06:15: Administer [place] patch 1 00 over 24 Medical Patch Hours, Branch Q24H, First dose on [place] 12/28/19 at 0015, Until Discontinu ed, Routine iohexol 2019-02 2020- No 100mL 100 mL, Unive rs (OMNIPAQUE 02-26 Intravenou it y of 350 05:00: 05:00 s, ONCE, 1 [place] BULK-100 00 :00 dose, Wed Medica l mL) 12/27/19 Branch injection at 2300, 100 mL Routine methylPREDN 2019-02 2020- No 40mg 40 mg, IV Univers ISolone sod 02-26 Piggyback, i ty of succ 02:45: 01:47 ONCE, 1 [place] (SOLU-MEDRO 00 :00 dose, Wed Med ical L (PF)) 12/27/19 Branch injection at 2045, 40 mg STAT metoprolol 2019-02 2020- No [id number] 12.5mg Take 0.5 Univers tartrate 25 02-26 tablets by i ty of mg tablet 00:00: 00:00 mouth 2 [place] 00 :00 (two) Medical times Branch daily. albuterol-i 2019-02 2020- No [id number] 1{puff} Inhale 1 Univers pratropium 02-26-19 Puff 4 ity of 20-100 00:00: 00:00 (four) [place] mcg/actuati 00 :00 times Medical on inhaler daily. [place] metoprolol 2019-02- No [id number] 12.5mg Take 0.5 Univers tartrate 25 02-26-19 tablets by i ty of mg tablet 00:00: 00:00 mouth 2 [place] 00 :00 (two) Medical times [place] daily. metoprolol 2019-02- No [id number] 12.5mg Take 0.5 Univers tartrate 25 02-26- tablets by i ty of mg tablet 00:00: 00:00 mouth 2 [place] 00 :00 (two) Medical times [place] daily. aspirin 2019- No 324mg 324 mg, Unive rs chewable 07-26 Oral, ity of tablet 324 22:30: 21:42 ONCE, 1 [place] as mg 00 :00 dose, [facility] 07/27/19 at [place] 1730, Routine No known No Univers medications ity of [facility] Vital Signs Vital Name Observation Time Observation Value Comments Source Systolic blood 2019-12-30 135 mm[Hg] University of pressure 17:24:00 [facility] Diastolic blood 2019-12-30 72 mm[Hg] University o f pressure 17:24:00 [facility] Heart rate 2019-12-30 78 /min [facility] 17:24:00 [facility] Body temperature 2019-12-30 35.61 Annemarie University 17:24:00 [facility] Respiratory rate 2019-12-30 18 /min University of 17:24:00 [facility] Oxygen saturation 2019-12-30 91 /min [facility] in Arterial blood 17:24:00 [facility] by Pulse oximetry [place] Body weight 2019-12-30 57.924 kg pt's actual wt University of 10:03:00 on regular [facility] [place] [facility] scale [place] BMI 2019-12-30 20.61 kg/m2 University 10:03:00 [facility] Body height 2019-12-29 167.6 cm [facility] 20:18:00 [facility] Systolic blood 2019-12-30 135 mm[Hg] University of pressure 17:24:00 [facility] Diastolic blood 2019-12-30 72 mm[Hg] University o f pressure 17:24:00 [place] [facility] Heart rate 2019-12-30 78 /min University of 17:24:00 [place] [facility] Body temperature 2019-12-30 35.61 Annemarie University of 17:24:00 [place] [facility] Respiratory rate 2019-12-30 18 /min University of 17:24:00 [facility] [place] [facility] Oxygen saturation 2019-12-30 91 /min University of in Arterial blood 17:24:00 [place] Medi piedad by Pulse oximetry Branch Body weight 2019-12-30 57.924 kg pt's actual wt University of 10:03:00 on regular [place] Medical scale Branch BMI 2019-12-30 20.61 kg/m2 University of 10:03:00 [facility] [place] [facility] Body height 2019-12-29 167.6 cm University of 20:18:00 [place] [facility] Systolic blood 2019-07-27 120 mm[Hg] University of pressure 21:35:00 [facility] [place] [facility] Diastolic blood 2019-07-27 79 mm[Hg] University o f pressure 21:35:00 [place] [facility] Heart rate 2019-07-27 93 /min University of :35:00 [place] [facility] Respiratory rate 2019-07-27 12 /min University of :35:00 [facility] [place] [facility] Oxygen saturation 2019-07-27 95 /min University of in Arterial blood 21:35:00 [place] Medi piedad by Pulse oximetry Branch Body temperature 2019-07-27 37.5 Annemarie University of 21:15:00 [place] [facility] Body height 2019-07-27 167.6 cm University of 21:15:00 [facility] [place] [facility] Body weight 2019-07-27 55.792 kg University of 21:15:00 [facility] [place] [facility] Branch BMI 2019-07-27 19.85 kg/m2 University of 21:15:00 [facility] [place] [facility] Systolic blood 2019-07-27 120 mm[Hg] University of pressure 21:35:00 [place] [facility] Diastolic blood 2019-07-27 79 mm[Hg] University o f pressure 21:35:00 [facility] [place] [facility] Heart rate 2019-07-27 93 /min University of 21:35:00 [place] [facility] Respiratory rate 2019-07-27 12 /min University of 21:35:00 [facility] [place] [facility] Oxygen saturation 2019-07-27 95 /min University of in Arterial blood 21:35:00 [place] Medi piedad by Pulse oximetry Branch Body temperature 2019-07-27 37.5 Annemarie University of 21:15:00 [facility] Body height 2019-07-27 167.6 cm [facility] :15:00 [facility] Body weight 2019-07-27 55.792 kg [facility] :15:00 [facility] BMI 2019-07-27 19.85 kg/m2 [facility] 21:15:00 [facility] Procedures Procedure Date / Time Performing Clinician Source Performed EXTERNAL PROVIDER 2020-01-17 06:01:00 Doctor Unassigned, No [facility] RECORDS Name Medical Branch POCT GLUCOSE 2019-12-30 15:25:00 [facility] (AUTOMATED) Meghan Epperson [facility] MAGNESIUM 2019-12-30 10:10:00 [facility] BASIC METABOLIC PANEL 2019-12-30 10:10:00 [facility] (NA, K, CL, CO2, Medical Branch GLUCOSE, BUN, CREATININE, CA) CBC WITH DIFF 2019-12-30 10:10:00 [facility] POCT GLUCOSE 2019-12-30 01:50:00 [facility] (AUTOMATED) Meghan taniya [facility] POCT GLUCOSE 2019-12-29 23:32:00 [facility] (AUTOMATED) Meghan Epperson [facility] HB ECG ROUTINE & RHYTHM 2019-12-29 14:11:36 [facility] STRIP [facility] POCT GLUCOSE 2019-12-29 14:00:00 [facility] (AUTOMATED) Meghan Epperson [facility] MAGNESIUM 2019-12-29 10:58:00 [facility] BASIC METABOLIC PANEL 2019-12-29 10:58:00 [facility] (NA, K, CL, CO2, Medical Branch GLUCOSE, BUN, CREATININE, CA) ACTIVATED PARTIAL 2019-12-29 10:58:00 [facility] THRMPL[facility] CATHY [facility] EXTERNAL PROVIDER 2019-12-29 06:01:00 Doctor Unassigned, No [facility] RECORDS Name Medical Branch POCT GLUCOSE 2019-12-29 04:16:00 Lexy Monae [facility] (AUTOMATED) Meghan Thibodeaux [facility] ch ACTIVATED PARTIAL 2019-12-29 00:06:00 Mariya [facility] TROPONIN I 2019-12-28 19:46:00 [facility] LIPID PANEL 2019-12-28 19:46:00 Mariya [facility] ([id number])(TOTAL Medical Branch CHOLESTEROL, TRIGLYCERIDES, HDL) ECHO ROUTINE W/DOPPLER 2019-12-28 16:44:30 Mariya [facility] COLOR [facility] HB ECG ROUTINE & RHYTHM 2019-12-28 13:42:07 Mariya [facility] PROTHROMBIN TIME / INR 2019-12-28 12:24:00 Mariya [facility] ACTIVATED PARTIAL 2019-12-28 12:24:00 Mariya [facility] TROPONIN I 2019-12-28 10:08:00 Mariya [facility] CT CHEST PULMONARY 2019-12-28 04:44:55 Minna [facility] ANGIOGRAM Medical Branch XR CHEST 1 VW 2019-12-28 02:07:34 Minna Mike [facility] COVID-19 (ID NOW RAPID 2019-12-28 01:50:00 Minna Mike [facility] TESTING) Medical Branch HB ECG ROUTINE & RHYTHM 2019-12-28 01:49:31 [facility] 2019-12-28 01:49:00 Minna Mike [facility] THYROID STIMULATING 2019-12-28 01:49:00 Mariya [facility] HORMONE Medical Branch BASIC METABOLIC PANEL 2019-12-28 01:49:00 Minna Mike [facility] (NA, K, CL, CO2, Medical Branch GLUCOSE, BUN, CREATININE, CA) COMP. METABOLIC PANEL 2019-12-28 01:49:00 Minna Mike [facility] ([id number]) Medical Branch CBC WITH DIFF 2019-12-28 01:49:00 Minna Mike [facility] GLYCOSYLATED HEMOGLOBIN 2019-12-28 01:49:00 Willian Meraz [facility] (A1C) [facility] N-TERMINAL PRO-BNP 2019-12-28 01:49:00 Willian Meraz [facility] XR CHEST 1 VW 2019-07-27 22:14:30 Soila Villar [facility] COVID-19 (ID NOW RAPID 2019-07-27 21:43:00 Soila Villar [facility] TESTING) [facility] TROPONIN I 2019-07-27 21:38:00 Soila Villar [facility] HEPATIC FUNCTION PANEL 2019-07-27 21:38:00 Soila Villar [facility] ([id number]) (ALB,T.PRO,BILI [facility] T,BU/BC,ALT,AST,ALK PHOS) BASIC METABOLIC PANEL 2019-07-27 21:38:00 Soila Villar [facility] (NA, K, CL, CO2, Medical Branch GLUCOSE, BUN, CREATININE, CA) CBC WITH DIFFERENTIAL 2019-07-27 21:38:00 Soila Villar [facility] PROTHROMBIN TIME / INR 2019-07-27 21:38:00 Soila Villar [facility] N-TERMINAL PRO-BNP 2019-07-27 21:38:00 Soila [facility] E[facility]-12 LEAD 2019-07-27 21:21:22 Soila Villar [facility] NOTICE OF PRIVACY 2019-07-27 20:58:21 Doctor Unassigned, No [facility] PRACTICES Name [facility] Encounters Start End Encounter Admission Attending Care Care Encounter Source Date/Time Date/Time Type Type Clinicians Facility Department ID 2020-01-17 2020-01-17 Orders Doctor NICHOLE [id number] 00:00:00 00:00:00 Only UnassASHLEY baker [id number] [facility] 4.2.7.2.686 [id number] 009 2020-01-17 2020-01-17 Orders Doctor NICHOLE [id number] Univers 00:00:00 00:00:00 Only Unassigned, ASHLEY [id number] ity of [facility] 4.2.7.2.686 Nabil as [id number] [facility] 009 Branch 2020-01-01 2020-01-01 Transition Earnest Barkleyoscar 1.2.840.114 [id number] 00:00:00 00:00:00 of Care Sarah Rossy [id number] [facility] 4.2.7.2.686 [id number] [facility] 2020-01-01 2020-01-01 Transition Filippo Ree 1.2.840.114 [id number] Univers 00:00:00 00:00:00 of Care Sarah Rossy [id number] ity of [facility] 4[place]7.2.[place] [id number] [facility] 403 Branch 2019-12-31 2019-12-31 Outpatient Piedad FUNEZ JR, [facility] [id number] 5Q-[id number] Univers 16:00:00 16:00:00 WILLIAN [id number] ity of [facility] 2019-12-27 2019-12-30 [place] Clifford Olivas 1.2.840. 114 [id number] 18:54:00 14:13:00 Encounter Lexy Monae [id number] [facility] 4.2.7.2.686 [id number] [facility] 2019-12-27 2019-12-30 [facility] Pathomeroracquel Clifford Olivas 1.2.840. 114 [id number] Univers 18:54:00 14:13:00 Encounter Lexy Monae [id number] ity of David Florian Artie [facility] 4.2.7.2.68 6 [place] [id number] [facility] 090 Branch 2019-12-27 2019-12-27 Emergency X [facility] ERT [id number] Univers 18:54:00 18:54:00 MINNA ity [facility] 2019-07-27 2019-07-27 Emergency [facility] 1.2.840.114 [id number] [facility] 16:26:45 18:20:00 Soila Espinosa 350.1.13.10 [facility] 4.2.7.2.686 [facility] [id number] [facility] 084 [place] 2019-07-27 2019-07-27 Emergency [facility] [id number] Univers 16:26:45 18:20:00 [facility] 2019-07-27 2019-07-27 Emergency [facility] 1.2.840.114 [id number] 16:26:45 18:20:00 Soila Espinosa [id number] [place] 4.2.7.2.686 [place] [id number] Results Test Description Test Time Test Comments Results Result Comments Source POCT GLUCOSE (AUTOMATED) 2019-12-30 15:33:00 Test Item Value Reference Range Interpretation Comme nts POCT GLU (test code = 3474086750) 204 mg/dL 70-110 H Notified Provider Lab Interpretation (test code = 97256-4) Abnormal [facility] METABOLIC PANEL (NA, K, CL, CO2, GLUCOSE, BUN, CREATININE, CA)2019-12-30 10:50:00 Test Item Value Reference Range Interpretation Comments NA (test code = 137 mmol/L 135-145 4188900906) K (test code = 4.1 mmol/L 3.5-5 6439652413) CL (test code = 103 mmol/L 98-108 1364819826) CO2 TOTAL (test code = 29 mmol/L 23-31 0145084729) AGAP (test code = 2-16 2585702469) BUN (test code = 21 mg/dL 7-23 7614699510) GLUCOSE (test code = 97 mg/dL 70-110 6077449353) CREATININE (test code 0.67 mg/dL 0.5-1.04 = 0254918804) CALCIUM (test code = 9.0 mg/dL 8.6-10.6 1902061391) eGFR Calculation mL/min/1.73m2 (Non-) (test code = 6969650687) eGFR Calculation mL/min/1.73m2 () (test code = 3556488534) JOSHUA (test code = JOSHUA) Association of Glomerular Filtration Rate (GFR) and Staging of Kidney Disease* + -+ + ---+| GFR (mL/min/1.73 m2) ?| With Kidney Damage ?| ?Without Kidney Damage+ -------+ ------+ ---------+| ?>90 ?| ?Stage one ?| ? Normal ?+ --+ -+ ----+| ?60-89 ?| ?Stage two ?| ? Decreased GFR ? + -+ + ---+| ?30-59 ?| ?Stage three ?| ? Stage three ? + -+ + ---+| ?15-29 ?| ?Stage four ? | ? Stage four ?+ --+ -+ ----+| ?<15 (or dialysis) ? ?| ?Stage five ? | ? Stage five ?+ --+ -+ ----+ *Each stage assumes the associated GFR level has been in effect for at least three months. ?Stages 1 to 5, with or without kidney disease, indicate chronic kidney disease. Notes: Determination of stages one and two (with eGFR >59mL/min/1.73 m2) requires estimation of kidney damage for at least three months as defined by structural or functional abnormalities of the kidney, manifested by either:Pathological abnormalities or Markers of kidney damage (including abnormalities in the composition of the blood or urine or abnormalities in imaging tests). [facility]2020-11-21 10:50:00 Test Item Value Reference Range Interpretation Comments MAGNESIUM (test code = 4131807622) 2.2 mg/dL 1.7-2.4 Lab Interpretation (test code = Normal 81303-8) [facility] WITH [id number] 10:26:00 Test Item Value Reference Range Interpretation Comments WBC (test code = See_Comment [Automated 1990-2) message] The sy stem which generated this result transmitted reference range : 4.30 - 11.10 10*3/?L. The reference range was not used to interpret this result as normal/abnormal . RBC (test code = See_Comment [Automated 489-8) message] The sy stem which generated this result transmitted reference range : 3.93 - 5.25 10*6/?L. The reference range was not used to interpret this result as normal/abnormal . HGB (test code = 15.1 g/dL 11.6-15 H 718-7) HCT (test code = 44.2 % 35.7-45.2 4544-3) MCV (test code = 94.0 fL 80.6-95.5 787-2) MCH (test code = 32.1 pg 25.9-32.8 785-6) MCHC (test code = 34.2 g/dL 31.6-35.1 786-4) RDW-SD (test code = 44.0 fL 39-49.9 24723-2) RDW-CV (test code = 12.6 % 12-15.5 788-0) PLT (test code = See_Comment [Automated 777-3) message] The sy stem which generated this result transmitted reference range : 166 - 358 10*3/ ?L. The reference r ramona was not used to interpret this result as normal/abnormal . MPV (test code = 9.7 fL 9.5-12.9 17356-4) NRBC/100 WBC (test See_Comment [Automat ed code = 5889514766) message] The system which generated this result transmitted reference range : 0.0 - 10.0 /100 WBCs. The refer ence range was not u sed to interpret th is result as normal/abnormal . NRBC x10^3 (test code <0.01 See_Comment [Auto mated = 5776535639) message] The s ystem which generated this result transmitted reference range : 10*3/?L. The reference range was not used to interpret this result as normal/abnormal . GRAN MAT (NEUT) % 57.7 % (test code = 770-8) IMM GRAN % (test code 0.20 % = 6112686751) LYMPH % (test code = 31.8 % 736-9) MONO % (test code = 8.1 % 5905-5) EOS % (test code = 1.9 % 713-8) BASO % (test code = 0.3 % 706-2) GRAN MAT x10^3(ANC) 5.12 10*3/uL 1.88-7.09 (test code = 6568505229) IMM GRAN x10^3 (test <0.03 0-0.06 code = 1177228250) LYMPH x10^3 (test code 2.82 10*3/uL 1.32-3.29 = 731-0) MONO x10^3 (test code 0.72 10*3/uL 0.33-0.92 = 742-7) EOS x10^3 (test code = 0.17 10*3/uL 0.03-0.39 711-2) BASO x10^3 (test code 0.03 10*3/uL 0.01-0.07 = 704-7) Lab Interpretation Abnormal (test code = 65674-3) [facility] GLUCOSE (AUTOMATED)2019-12-30 01:52:00 Test Item Value Reference Range Interpretation Comments POCT GLU (test code = 1027838352) 199 mg/dL 70-110 H Lab Interpretation (test code = Abnormal 65592-5) [facility] GLUCOSE (AUTOMATED)2019-12-29 23:34:00 Test Item Value Reference Range Interpretation Comments POCT GLU (test code = 9163564706) 120 mg/dL 70-110 H Lab Interpretation (test code = Abnormal 30317-7) [facility] GLUCOSE (AUTOMATED)2019-12-29 14:02:00 Test Item Value Reference Range Interpretation Comments POCT GLU (test code = 9796849097) 99 mg/dL 70-110 Lab Interpretation (test code = Normal 53670-8) [facility] Metabolic Panel (NA, K, CL, CO2, GLUCOSE, BUN, CREATININE, CA)2019-12-29 11:40:00 Test Item Value Reference Range Interpretation Comments NA (test code = 139 mmol/L 135-145 8420222307) K (test code = 4.2 mmol/L 3.5-5 Slight 1991150943) hemolysis CL (test code = 104 mmol/L 98-108 0747917261) CO2 TOTAL (test code 30 mmol/L 23-31 = 4026812047) AGAP (test code = 2-16 7570994825) BUN (test code = 18 mg/dL 7-23 Slight 4493261242) hemolysis GLUCOSE (test code = 116 mg/dL 70-110 H 7588271604) CREATININE (test code 0.61 mg/dL 0.5-1.04 = 7667798801) CALCIUM (test code = 8.9 mg/dL 8.6-10.6 8951019456) eGFR Calculation mL/min/1.73m2 (Non-) (test code = 3863093653) eGFR Calculation mL/min/1.73m2 () (test code = 5244776183) JOSHUA (test code = JOSHUA) Association of Glomerular Filtration Rate (GFR) and Staging of Kidney Disease* + -----+ --------+ +| GFR (mL/min/1.73 m2) ?| With Kidney Damage ?| ?Without Kidney Damage+ +------- +---- --+| ?>90 ?| ?Stage one ?| ? Normal ?+ ------+ ---------+--------- +| ?60-89 ?| ?Stage two ?| ? Decreased GFR ? + -----+ --------+ +| ?30-59 ?| ?Stage three ?| ? Stage three ? + -----+ --------+ +| ?15-29 ?| ?Stage four ? | ? Stage four ?+ ------+ ---------+--------- +| ?<15 (or dialysis) ? ?| ?Stage five ? | ? Stage five ?+ ------+ ---------+--------- + *Each stage assumes the associated GFR level has been in effect for at least three months. ?Stages 1 to 5, with or without kidney disease, indicate chronic kidney disease. Notes: Determination of stages one and two (with eGFR >59mL/min/1.73 m2) requires estimation of kidney damage for at least three months as defined by structural or functional abnormalities of the kidney, manifested by either:Pathological abnormalities or Markers of kidney damage (including abnormalities in the composition of the blood or urine or abnormalities in imaging tests). Lab Interpretation Abnormal (test code = 75348-3) [facility] CampusMagnesium [id number] 11:40:00 Test Item Value Reference Range Interpretation Comments MAGNESIUM (test code = 5196277232) 2.2 mg/dL 1.7-2.4 Lab Interpretation (test code = Normal 10324-6) [facility] CampusaPTT (for use with Heparin Drip)2019-12-29 11:21:00 Test Item Value Reference Range Interpretation Comments APTT Patient (test code See_Comment HH [Au tomated message] = 3173-2) The system [employer] generated this result transmitted ref erence range: 26 - 36 Seconds. The reference range was not used to int erpret this result as normal/abnormal . Lab Interpretation (test Abnormal code = 52822-1) [facility] CampusPO[facility] GLUCOSE (AUTOMATED)2019-12-29 04:19:00 Test Item Value Reference Range Interpretation Comments POCT GLU (test code = 8432870319) 115 mg/dL 70-110 H Lab Interpretation (test code = Abnormal 05627-5) [facility] CampusLipid Panel (Total Cholesterol, Triglycerides, HDL) - [id number] 03:03:00 Test Item Value Reference Range Interpretation Comments CHOL (test code = 164 mg/dL 120-200 4343448544) HDL (test code = 61 mg/dL >50 4409604384) HDLC RATIO (test code = See_Comment [Au tomated message] 4739504493) The system [employer] generated this result transmit shikha reference range : <=4.5. The refe rence range was not u sed to interpret th is result as normal/abnormal . TRIG (test code = 63 mg/dL 30-170 6491472358) LDL CHOL (test code = 90 mg/dL See_Comment [Auto mated message] 64835-3) The system [employer] generated this result transmit shikha reference range : <=160. The refe rence range was not u sed to interpret th is result as normal/abnormal . VLDL (test code = 13 mg/dL 5-60 8704033807) Lab Interpretation (test Normal code = 96426-9) [facility] CampusaPTT (for use with Heparin Drip)2019-12-29 00:36:00 Test Item Value Reference Range Interpretation Comments APTT Patient (test code See_Comment H [Au tomated message] = 3173-2) The system [employer] generated this result transmitted ref erence range: 26 - 36 Seconds. The reference range was not used to int erpret this result as normal/abnormal . Lab Interpretation (test Abnormal code = 23251-4) [facility] CampusTROPONIN [id number] 21:42:00 Test Item Value Reference Range Interpretation Comments TROPONIN I (test 0.081 ng/mL See_Comment H [Automated code = 0643810257) message] The system which generated this result transmitted reference range : <=0.034. The reference range was not used to interpret this result as normal/abnormal . JOSHUA (test code = Equal or Less than JOSHUA) 0.034 ng/ml---Normal ?Note: Cardiac troponin begins to rise 3-4 hours after the onset of ischemia. Repeat in 4-6 hours if the sample was drawn within 3-4 hours of the onset of the symptom and found normal. Between 0.035 and 0.120 ng/mL--- Borderline. Questionable myocardial injury or necrosis ? ?Note: Serial measurement may be necessary to confirm or exclude the diagnosis of myocardial injury or necrosis; Clinical correlation (symptoms, EKGs, imaging studies, and others) required; Repeat in 4-6 hours if clinically indicated. ? Equal or Higher than 0.121 ng/mL---Abnormal. Myocardial Injury or Necrosis Likely ? Biotin has been reported to cause a negative bias, interpret results relative to patient's use of biotin. ? Lab Interpretation Abnormal (test code = 93857-4) [facility] CampusProthrombin Time (PT) / [id number] 12:39:00 Test Item Value Reference Range Interpretation Comments PROTIME PATIENT (test See_Comment [Auto mated message] code = 5964-2) The system Asterisk ich generated this result transmitted ref erence range: 10.1 - 1 2.6 Seconds. The re ference range was not u sed to interpret this result as normal/abnor mal. INR (test code = 6301-6) Nor mal INR <1.1; Warfarin Therap eutic range 2.0 to 3. 0 or 2.5 to 3.5, dep ending upon the indica tions. Lab Interpretation (test Normal code = 42495-7) [facility] CampusaPTT2020-11-19 12:39:00 Test Item Value Reference Range Interpretation Comments APTT Patient (test code = See_Comment [ Automated message] 3173-2) The system [employer] generated this result transmitted ref erence range: 26 - 36 Seconds. The re ference range was not u sed to interpret this result as normal/abnor mal. Lab Interpretation (test Normal code = 67884-9) [facility] CampusTroponin [id number] 11:11:00 Test Item Value Reference Range Interpretation Comments TROPONIN I (test 0.148 ng/mL See_Comment H [Automated code = 1573250817) message] The system which generated this result transmitted reference range : <=0.034. The reference range was not used to interpret this result as normal/abnormal . JOSHUA (test code = Equal or Less than JOSHUA) 0.034 ng/ml---Normal ?Note: Cardiac troponin begins to rise 3-4 hours after the onset of ischemia. Repeat in 4-6 hours if the sample was drawn within 3-4 hours of the onset of the symptom and found normal. Between 0.035 and 0.120 ng/mL--- Borderline. Questionable myocardial injury or necrosis ? ?Note: Serial measurement may be necessary to confirm or exclude the diagnosis of myocardial injury or necrosis; Clinical correlation (symptoms, EKGs, imaging studies, and others) required; Repeat in 4-6 hours if clinically indicated. ? Equal or Higher than 0.121 ng/mL---Abnormal. Myocardial Injury or Necrosis Likely ? Biotin has been reported to cause a negative bias, interpret results relative to patient's use of biotin. ? Lab Interpretation Abnormal (test code = 80789-0) [facility] CampusGlycosylated Hemoglobin (A1C)2019-12-28 10:57:00 Test Item Value Reference Range Interpretation Comments HGB A1C (test code = 5.8 % - 4548-4) JOSHUA (test code = JOSHUA) %A1C (NGSP) Interpretation (ADA)4.8-5.6 ? ? Normal or (Non-Diabetic Range)5.7-6.4 ? ? Increased Risk (Pre-Diabetic)>6.5 ?Diabetes Indicated Lab Interpretation Normal (test code = 17425-4) [facility] CampusThyroid Stimulating Hormone (TSH)2019-12-28 10:22:00 Test Item Value Reference Range Interpretation Comments TSH (test code = See_Comment Biotin has been 2056162742) reported to cau se a negative bias, interpret resul ts relative to pat ient's use of biotin. [Automated mess age] The system [employer] generated this result transmitted ref erence range: 0.45 - 4 .70 mIU/L. The refe rence range was not u sed to interpret this result as normal/abnor mal. Lab Interpretation (test Normal code = 60162-0) [facility] CampusN-Terminal [id number] 10:22:00 Test Item Value Reference Range Interpretation Comments NT-proBNP (test code 636 pg/mL See_Comment H [Autom ated = 5754414965) message] The system which generated this result transmitted reference range : <=125. The reference range was not used to interpret this result as normal/abnormal . JOSHUA (test code = JOSHUA) Biotin has been reported to cause a negative bias, interpret results relative to patient's use of biotin. Lab Interpretation Abnormal (test code = 82849-4) [facility] CampusCT CHEST PULMONARY [id number] 05:35:31 No acute pulmonary embolism through the segmental level. Moderate emphysematous changes. Technically indeterminate 1.5 cm left adrenal nodule. Recommend multiphasicCT or MRI adrenal protocol to further characterize. Preliminary Report Dictated by Resident: Dillon Saunders MD., have reviewed this study and agree with theabove report.CT CHEST PULMONARY ANGIOGRAM HISTORY: 64 years-old; Female; PE suspected, intermediate prob, neg D- dimer COMPARISON: None. TECHNIQUE: ?Helical CT was performed ?after the administration of 100 mLOmnipaque-350 intravenous contrast and reconstructed at 1.0 mm slicethickness from lung base to apices, without complication. ?Display field ofview: 33 cm. FINDINGS: PULMONARY ARTERIES: Contrast bolus timing is excellent for evaluation of pulmonary arterialvasculature. No filling defects are seen to the subsegmental level. Normal caliber of the main pulmonary artery. CHEST: Lower neck/thyroid: Unremarkable. Lungs: Moderate bilateral upper lobe predominant centrilobularemphysematous changes. There are no solid nodules. Mild bibasilaratelectasis. Central airway: Central airways are patent. Pleura: No pleural effusion, thickening or pneumothorax. Thoracic aorta and great vessels: As a normal variant, the left vertebralartery originates directly from the aortic arch. The aorta is normal indiameter. Mild atherosclerotic calcifications at the aortic arch andproximal left subclavian artery. Heart and pericardium: Mild to moderate coronary arterial calcificationsare most prominent in LAD and circumflex distribution. Unremarkable cardiacmorphology and pericardium. Mediastinum and lymph nodes: No enlarged thoracic lymph nodes. Thoracic spine and chest wall: Unremarkable, with normal thoracic vertebralbody heights. Visualized upper abdomen: Right upper renal pole 2.6 cm hypoattenuatinglesion with attenuation slightly higher than expected for simple fluid (22Hounsfield units). Accessory right renal artery. Somewhat diminutive appearance of the SMA without significantatherosclerotic calcifications. Mild poststenotic dilatation of the moredistal SMA. [facility], Radiant Results Inft User - 12/27/2019 11:36 PM CSTCT CHEST PULMONARY ANGIOGRAMHISTORY: 64 years-old; Female; PE suspected, intermediate prob, neg D-dimerCOMPARISON: None.TECHNIQUE: Helical CT was p erformed after the administration of 100 mLOmnipaque-350 intravenous contrast and reconstructed at 1.0 mm slicethickness from lung base to apices, without complication. Display field ofview: 33 cm.FINDINGS:PULMONARY ARTERIES:Contrast bolus timing is excellent for evaluation of pulmonary arterialvasculature. No filling defects are seen to the subsegmental level.Normal caliber of the main pulmonary artery.CHEST:Lower neck/thyroid: Unremarkable.Lungs: Moderate bilateral upper lobe predominant centrilobularemphysematous changes. There are no solid nodules. Mild bibasilaratelectasis. Central airway: Central airways are patent.Pleura: No pleural effusion, thickening or pneumothorax.Thoracic aorta and great vessels: As a normal variant, the left vertebralartery originates directly from the aortic arch. The aorta is normal indiameter. Mild atherosclerotic calcifications at the aortic arch andproximal left subclavian artery.Heart and pericardium: Mild to moderate coronary arterial calcificationsare most prominent in LAD and circumflex distribution. Unremarkable cardiacmorphology and pericardium.Mediastinum and lymph nodes: No enlarged thoracic lymph nodes.Thoracic spine and chest wall: Unremarkable,with normal thoracic vertebralbody heights.Visualized upper abdomen: Right upper renal pole 2.6 cm hypoattenuatinglesion with attenuation slightly higher than expected for simple fluid (22Hounsfield units). Accessory right renal artery.Somewhat diminutive appearance of the SMA without significantathero sclerotic calcifications. Mild poststenotic dilatation of the moredistal SMA.IMPRESSIONNo acute pulmonary embolism through the segmental level.Moderate emphysematous changes.Technically indeterminate 1.5 cm left adrenal nodule. Recommend multiphasicCT or MRI adrenal protocol to further characterize.Pre liminary Report Dictated by Resident: Dillon Rosales MD., have reviewed this study and agree with theabove report.[facility] [id number] 03:07:42 No acute cardiopulmonary abnormality. Preliminary Report Dictated by Resident: Dillon Saunders MD., have reviewed this study and agree with theabove report.XR CHEST 1 VW HISTORY: 64 years-old; Female; SOB, Wheezing COMPARISON: 07/27/2019 TECHNIQUE: Single AP view of the chest. FINDINGS: The lungs are well-expanded and clear with no focal consolidation.Suspected emphysematous changes. There is no pleural effusion orpneumothorax. The cardiac silhouette is within normal limits. Aortic arch calcificationis seen. There is no acute osseous abnormality. [facility], Radiant Results Inft User - 12/27/2019 9:08 PM CSTXR CHEST 1 VWHISTORY: 64 years-old; Female; SOB, Wheezing COMPARISON: 07/27/2019TECHNIQUE: Single AP view of the chest.FINDINGS:The lungs are well-expanded and clear with no focal consolidation.Suspected emphysematous changes. There is no pleural effusion orpneumothorax.The cardiac silhouette is within normal limits. Aortic arch calcificationis seen.There is no acute osseous abnormality.IMPRESSIONNo acute cardiopulmonary abnormality.Preliminary Report Dictated by Resident: Dillon Rosales MD., have reviewed this study and agree with theabove report.[facility] CampusTROPONIN [id number] 02:26:00 Test Item Value Reference Range Interpretation Comments TROPONIN I (test 0.048 ng/mL See_Comment H [Automated code = 1538738950) message] The system which generated this result transmitted reference range : <=0.034. The reference range was not used to interpret this result as normal/abnormal . JOSHUA (test code = Equal or Less than JOSHUA) 0.034 ng/ml---Normal ?Note: Cardiac troponin begins to rise 3-4 hours after the onset of ischemia. Repeat in 4-6 hours if the sample was drawn within 3-4 hours of the onset of the symptom and found normal. Between 0.035 and 0.120 ng/mL--- Borderline. Questionable myocardial injury or necrosis ? ?Note: Serial measurement may be necessary to confirm or exclude the diagnosis of myocardial injury or necrosis; Clinical correlation (symptoms, EKGs, imaging studies, and others) required; Repeat in 4-6 hours if clinically indicated. ? Equal or Higher than 0.121 ng/mL---Abnormal. Myocardial Injury or Necrosis Likely ? Biotin has been reported to cause a negative bias, interpret results relative to patient's use of biotin. ? Lab Interpretation Abnormal (test code = 82103-2) [facility] CampusCOVID-[facility] (ID NOW RAPID TESTING)2019-12-28 02:22:00 Test Item Value Reference Range Interpretation Comments SARS-CoV-2 Rapid ID NOW Not Detected Not Detected (test code = 53213-8) JOSHUA (test code = JOSHUA) ID NOW COVID-19 Assay is an isothermal nucleic acid amplification test intended for the qualitative detection of nucleic acid from SARS-CoV-2 viral RNA in nasopharyngeal (COVER OPERATOR) specimens. It is used under Emergency Use Authorization (EUA) by FDA. The limit of detection (LOD) of the assay is 125 Genome Equivalents/mL. A positive result is indicative of the presence of SARS-CoV-2 RNA. ?Clinical correlation with patient history and other diagnostic information is necessary to determine patient infection status. A negative (Not Detected) result does not preclude SARS-CoV-2 infection. In patients with clinical symptoms and other tests that are consistent with SARS-CoV-2 infection, negative results should be treated as presumptive negative and a new specimen should be tested with alternative PCR molecular test. Invalid: Please collect a new specimen for repeat patient testing if clinically indicated. Lab Interpretation Normal (test code = 93261-8) [facility]. METABOLIC PANEL (68436)2019-12-28 02:16:00 Test Item Value Reference Range Interpretation Comments NA (test code = 137 mmol/L 135-145 7891461731) K (test code = 3.8 mmol/L 3.5-5 5190360724) CL (test code = 101 mmol/L 98-108 3500561931) CO2 TOTAL (test code = 31 mmol/L 23-31 0667752372) AGAP (test code = 2-16 3696368709) BUN (test code = 18 mg/dL 7-23 5911819878) GLUCOSE (test code = 145 mg/dL 70-110 H 0829484172) CREATININE (test code = 0.55 mg/dL 0.5-1.04 8482898107) TOTAL BILI (test code = 0.4 mg/dL 0.1-1.2 8533153002) CALCIUM (test code = 8.8 mg/dL 8.6-10.6 2932032354) T PROTEIN (test code = 6.7 g/dL 6.3-8.2 4204187300) ALBUMIN (test code = 4.1 g/dL 3.5-5 2922554027) ALK PHOS (test code = 72 U/L 34-122 7233780209) ALTv (test code = 40 U/L 5-35 H 1742-6) AST(SGOT) (test code = 46 U/L 13-40 H 7822870058) eGFR Calculation mL/min/1.73m2 (Non-) (test code = 0419339163) eGFR Calculation mL/min/1.73m2 () (test code = 6484884823) JOSHUA (test code = JOSHUA) Association of Glomerular Filtration Rate (GFR) and Staging of Kidney Disease* + --+ --+ ------+| GFR (mL/min/1.73 m2) ?| With Kidney Damage ?| ?Without Kidney Damage+ --------+ --------+ +| ?>90 ?| ?Stage one ?| ? Normal ?+ ---+ ---+ -------+| ?60-89 ?| ?Stage two ?| ? Decreased GFR ? + --+ --+ ------+| ?30-59 ?| ?Stage three ?| ? Stage three ? + --+ --+ ------+| ?15-29 ?| ?Stage four ? | ? Stage four ?+ ---+ ---+ -------+| ?<15 (or dialysis) ? ?| ?Stage five ? | ? Stage five ?+ ---+ ---+ -------+ *Each stage assumes the associated GFR level has been in effect for at least three months. ?Stages 1 to 5, with or without kidney disease, indicate chronic kidney disease. Notes: Determination of stages one and two (with eGFR >59mL/min/1.73 m2) requires estimation of kidney damage for at least three months as defined by structural or functional abnormalities of the kidney, manifested by either:Pathological abnormalities or Markers of kidney damage (including abnormalities in the composition of the blood or urine or abnormalities in imaging tests). Lab Interpretation Abnormal (test code = 57310-8) [facility] (NA, K, CL, CO2, GLUCOSE, BUN, CREATININE, CA)2019-12-28 02:16:00 Test Item Value Reference Range Interpretation Comments NA (test code = 137 mmol/L 135-145 8088690251) K (test code = 3.8 mmol/L 3.5-5 7457197704) CL (test code = 101 mmol/L 98-108 5595794865) CO2 TOTAL (test code = 31 mmol/L 23-31 0474522793) AGAP (test code = 2-16 6397414138) BUN (test code = 18 mg/dL 7-23 3435711115) GLUCOSE (test code = 145 mg/dL 70-110 H 4144908729) CREATININE (test code = 0.55 mg/dL 0.5-1.04 2969885626) CALCIUM (test code = 8.8 mg/dL 8.6-10.6 3776143261) eGFR Calculation mL/min/1.73m2 (Non-) (test code = 6354485121) eGFR Calculation mL/min/1.73m2 () (test code = 7444341370) JOSHUA (test code = JOSHUA) Association of Glomerular Filtration Rate (GFR) and Staging of Kidney Disease* + --+ --+ ------+| GFR (mL/min/1.73 m2) ?| With Kidney Damage ?| ?Without Kidney Damage+ --------+ --------+ +| ?>90 ?| ?Stage one ?| ? Normal ?+ ---+ ---+ -------+| ?60-89 ?| ?Stage two ?| ? Decreased GFR ? + --+ --+ ------+| ?30-59 ?| ?Stage three ?| ? Stage three ? + --+ --+ ------+| ?15-29 ?| ?Stage four ? | ? Stage four ?+ ---+ ---+ -------+| ?<15 (or dialysis) ? ?| ?Stage five ? | ? Stage five ?+ ---+ ---+ -------+ *Each stage assumes the associated GFR level has been in effect for at least three months. ?Stages 1 to 5, with or without kidney disease, indicate chronic kidney disease. Notes: Determination of stages one and two (with eGFR >59mL/min/1.73 m2) requires estimation of kidney damage for at least three months as defined by structural or functional abnormalities of the kidney, manifested by either:Pathological abnormalities or Markers of kidney damage (including abnormalities in the composition of the blood or urine or abnormalities in imaging tests). Lab Interpretation Abnormal (test code = 96104-7) [facility] WITH [id number] 02:01:00 Test Item Value Reference Range Interpretation Comments WBC (test code = See_Comment [Automated 5421-2) message] The sy stem which generated this result transmitted reference range : 4.30 - 11.10 10*3/?L. The reference range was not used to interpret this result as normal/abnormal . RBC (test code = See_Comment [Automated 118-9) message] The sy stem which generated this result transmitted reference range : 3.93 - 5.25 10*6/?L. The reference range was not used to interpret this result as normal/abnormal . HGB (test code = 15.1 g/dL 11.6-15 H 718-7) HCT (test code = 45.9 % 35.7-45.2 H 4544-3) MCV (test code = 95.2 fL 80.6-95.5 787-2) MCH (test code = 31.3 pg 25.9-32.8 785-6) MCHC (test code = 32.9 g/dL 31.6-35.1 786-4) RDW-SD (test code = 42.5 fL 39-49.9 22599-4) RDW-CV (test code = 12.2 % 12-15.5 788-0) PLT (test code = See_Comment [Automated 777-3) message] The sy stem which generated this result transmitted reference range : 166 - 358 10*3/ ?L. The reference r ramona was not used to interpret this result as normal/abnormal . MPV (test code = 9.7 fL 9.5-12.9 45292-0) NRBC/100 WBC (test See_Comment [Automat ed code = 9381954494) message] The system which generated this result transmitted reference range : 0.0 - 10.0 /100 WBCs. The refer ence range was not u sed to interpret th is result as normal/abnormal . NRBC x10^3 (test code <0.01 See_Comment [Auto mated = 4213366979) message] The s ystem which generated this result transmitted reference range : 10*3/?L. The reference range was not used to interpret this result as normal/abnormal . GRAN MAT (NEUT) % 52.2 % (test code = 770-8) IMM GRAN % (test code 0.30 % = 4025203476) LYMPH % (test code = 36.0 % 736-9) MONO % (test code = 7.3 % 5905-5) EOS % (test code = 3.7 % 713-8) BASO % (test code = 0.5 % 706-2) GRAN MAT x10^3(ANC) 3.36 10*3/uL 1.88-7.09 (test code = 5534623081) IMM GRAN x10^3 (test <0.03 0-0.06 code = 7038230171) LYMPH x10^3 (test code 2.32 10*3/uL 1.32-3.29 = 731-0) MONO x10^3 (test code 0.47 10*3/uL 0.33-0.92 = 742-7) EOS x10^3 (test code = 0.24 10*3/uL 0.03-0.39 711-2) BASO x10^3 (test code 0.03 10*3/uL 0.01-0.07 = 704-7) Lab Interpretation Abnormal (test code = 24201-0) [facility] 1 [id number] 22:39:59 No acute cardiopulmonary abnormality. Emphysematous changes. Preliminary Report Dictated by Resident: Chaitanya Reyes MD., have reviewed this study and agree with the abovereport.EXAM: XR CHEST 1 VW CLINICAL INDICATION: chest pain COMPARISON: None FINDINGS: The lungs are hyperexpandedand clear without focal consolidation, pleuraleffusion, or pneumothorax. The cardiac silhouette is n ormal in size. No acute osseous abnormality. [facility], Radiant Results Inft User - 07/27/2019 5:41 PMCDTEXAM: XR CHEST 1 VWCLINICAL INDICATION: chest pain COMPARISON: NoneFINDINGS:The lungs are hyperexpanded and clear without focal consolidation, pleuraleffusion, or pneumothorax. The cardiac silhouette is normal in size. No acute osseous abnormality. IMPRESSIONNo acute cardiopulmonary abnormality.Emphysematous changes.Preliminary Report Dictated by Resident: Chaitanya Lainez MD., have reviewed this study and agree with the abovereport.[facility] [id number] 22:28:00 Test Item Value Reference Range Interpretation Comments TROPONIN I (test <0.012 See_Comment [Automated code = 7594159514) message] The system which generated this result transmitted reference range : <=0.034 ng/mL. The reference range was not used to interpr et this result as normal/abnormal . JOSHUA (test code = Equal or Less than JOSHUA) 0.034 ng/ml---Normal ?Note: Cardiac troponin begins to rise 3-4 hours after the onset of ischemia. Repeat in 4-6 hours if the sample was drawn within 3-4 hours of the onset of the symptom and found normal. Between 0.035 and 0.120 ng/mL--- Borderline. Questionable myocardial injury or necrosis ? ?Note: Serial measurement may be necessary to confirm or exclude the diagnosis of myocardial injury or necrosis; Clinical correlation (symptoms, EKGs, imaging studies, and others) required; Repeat in 4-6 hours if clinically indicated. ? Equal or Higher than 0.121 ng/mL---Abnormal. Myocardial Injury or Necrosis Likely ? Biotin has been reported to cause a negative bias, interpret results relative to patient's use of biotin. ? Lab Interpretation Normal (test code = 60906-7) [facility] [id number] 22:24:00 Test Item Value Reference Range Interpretation Comments NT-proBNP (test code 675 pg/mL See_Comment H [Autom ated = 1803153171) message] The system which generated this result transmitted reference range : <=125. The reference range was not used to interpret this result as normal/abnormal . JOSHUA (test code = JOSHUA) Biotin has been reported to cause a negative bias, interpret results relative to patient's use of biotin. Lab Interpretation Abnormal (test code = 32373-2) [facility] CampusProthrombin Time (PT) / [id number] 22:20:00 Test Item Value Reference Range Interpretation Comments PROTIME PATIENT (test See_Comment [Auto mated message] code = 5964-2) The system wh ich generated this result transmitted ref erence range: 12.0 - 1 4.7 Seconds. The re ference range was not u sed to interpret this result as normal/abnor mal. INR (test code = 6301-6) Nor mal INR <1.1; Warfarin Therap eutic range 2.0 to 3. 0 or 2.5 to 3.5, dep ending upon the indica tions. Lab Interpretation (test Normal code = 49116-0) [facility] CampusBasi Metabolic Panel (NA, K, CL, CO2, GLUCOSE, BUN, CREATININE, CA)2019-07-27 22:17:00 Test Item Value Reference Range Interpretation Comments NA (test code = 138 mmol/L 135-145 1894289889) K (test code = 4.4 mmol/L 3.5-5 7967435685) CL (test code = 101 mmol/L 98-108 6031753353) CO2 TOTAL (test code = 28 mmol/L 23-31 7353770108) AGAP (test code = 2-16 5956468788) BUN (test code = 16 mg/dL 7-23 1119014147) GLUCOSE (test code = 88 mg/dL 70-110 5412344259) CREATININE (test code 0.55 mg/dL 0.5-1.04 = 7049622514) CALCIUM (test code = 10.1 mg/dL 8.6-10.6 0580810422) eGFR Calculation mL/min/1.73m2 (Non-) (test code = 1028030168) eGFR Calculation mL/min/1.73m2 () (test code = 2464834340) JOSHUA (test code = JOSHUA) Association of Glomerular Filtration Rate (GFR) and Staging of Kidney Disease* + -+ + ---+| GFR (mL/min/1.73 m2) ?| With Kidney Damage ?| ?Without Kidney Damage+ -------+ ------+ ---------+| ?>90 ?| ?Stage one ?| ? Normal ?+ --+ -+ ----+| ?60-89 ?| ?Stage two ?| ? Decreased GFR ? + -+ + ---+| ?30-59 ?| ?Stage three ?| ? Stage three ? + -+ + ---+| ?15-29 ?| ?Stage four ? | ? Stage four ?+ --+ -+ ----+| ?<15 (or dialysis) ? ?| ?Stage five ? | ? Stage five ?+ --+ -+ ----+ *Each stage assumes the associated GFR level has been in effect for at least three months. ?Stages 1 to 5, with or without kidney disease, indicate chronic kidney disease. Notes: Determination of stages one and two (with eGFR >59mL/min/1.73 m2) requires estimation of kidney damage for at least three months as defined by structural or functional abnormalities of the kidney, manifested by either:Pathological abnormalities or Markers of kidney damage (including abnormalities in the composition of the blood or urine or abnormalities in imaging tests). [facility] CampusHepatic Function Panel (ALB, T.PRO, BILI T, BU/BC, ALT, AST, ALK PHOS)2019-07-27 22:17:00 Test Item Value Reference Range Interpretation Comments TOTAL BILI (test code = 0450858189) 0.7 mg/dL 0.1-1.1 BILI UNCON (test code = 0708176764) 0.8 mg/dL 0.1-1.1 BILI CONJ (test code = 1835175232) 0.0 mg/dL 0-0.3 T PROTEIN (test code = 8088654176) 7.7 g/dL 6.3-8.2 ALBUMIN (test code = 2189923517) 4.8 g/dL 3.5-5 ALK PHOS (test code = 1694097650) 49 U/L 34-122 ALTv (test code = 1742-6) 35 U/L 5-35 AST(SGOT) (test code = 9010788561) 42 U/L 13-40 H Lab Interpretation (test code = Abnormal 84845-4) [facility] CampusCOVID-[facility] (ID NOW RAPID TESTING)2019-07-27 22:16:00 Test Item Value Reference Range Interpretation Comments SARS-CoV-2 Rapid ID NOW Not Detected Not Detected (test code = 33254-5) JOSHUA (test code = JOSHUA) ID NOW COVID-19 Assay is an isothermal nucleic acid amplification test intended for the qualitative detection of nucleic acid from SARS-CoV-2 viral RNA in nasopharyngeal (COVER OPERATOR) specimens. It is used under Emergency Use Authorization (EUA) by FDA. The limit of detection (LOD) of the assay is 125 Genome Equivalents/mL. A positive result is indicative of the presence of SARS-CoV-2 RNA. ?Clinical correlation with patient history and other diagnostic information is necessary to determine patient infection status. A negative (Not Detected) result does not preclude SARS-CoV-2 infection. In patients with clinical symptoms and other tests that are consistent with SARS-CoV-2 infection, negative results should be treated as presumptive negative and a new specimen should be tested with alternative PCR molecular test. Invalid: Please collect a new specimen for repeat patient testing if clinically indicated. Lab Interpretation Normal (test code = 34881-9) [facility] WITH [id number] 21:58:00 Test Item Value Reference Range Interpretation Comments WBC (test code = See_Comment [Automated 6690-2) message] The sy stem which generated this result transmitted reference range : 4.30 - 11.10 10*3/?L. The reference range was not used to interpret this result as normal/abnormal . RBC (test code = See_Comment [Automated 789-8) message] The sy stem which generated this result transmitted reference range : 3.93 - 5.25 10*6/?L. The reference range was not used to interpret this result as normal/abnormal . HGB (test code = 16.7 g/dL 11.6-15 H 718-7) HCT (test code = 47.2 % 35.7-45.2 H 4544-3) MCV (test code = 92.0 fL 80.6-95.5 787-2) MCH (test code = 32.6 pg 25.9-32.8 785-6) MCHC (test code = 35.4 g/dL 31.6-35.1 H 786-4) RDW-SD (test code = 41.4 fL 39-49.9 04682-3) RDW-CV (test code = 12.2 % 12-15.5 788-0) PLT (test code = See_Comment [Automated 777-3) message] The sy stem which generated this result transmitted reference range : 166 - 358 10*3/ ?L. The reference r ramona was not used to interpret this result as normal/abnormal . MPV (test code = 9.7 fL 9.5-12.9 79463-9) NRBC/100 WBC (test See_Comment [Automat ed code = 0807764327) message] The system which generated this result transmitted reference range : 0.0 - 10.0 /100 WBCs. The refer ence range was not u sed to interpret th is result as normal/abnormal . NRBC x10^3 (test code <0.01 See_Comment [Auto mated = 9336112867) message] The s ystem which generated this result transmitted reference range : 10*3/?L. The reference range was not used to interpret this result as normal/abnormal . GRAN MAT (NEUT) % 72.2 % (test code = 770-8) IMM GRAN % (test code 0.40 % = 6610860116) LYMPH % (test code = 19.5 % 736-9) MONO % (test code = 5.2 % 5905-5) EOS % (test code = 2.1 % 713-8) BASO % (test code = 0.6 % 706-2) GRAN MAT x10^3(ANC) 7.15 10*3/uL 1.88-7.09 H (test code = 2604902308) IMM GRAN x10^3 (test 0.04 10*3/uL 0-0.06 code = 7304655084) LYMPH x10^3 (test code 1.93 10*3/uL 1.32-3.29 = 731-0) MONO x10^3 (test code 0.52 10*3/uL 0.33-0.92 = 742-7) EOS x10^3 (test code = 0.21 10*3/uL 0.03-0.39 711-2) BASO x10^3 (test code 0.06 10*3/uL 0.01-0.07 = 704-7) Lab Interpretation Abnormal (test code = 03633-0) [facility]"
[2021-02-19 00:02] LABS: Hematocrit 37.1 % (36.0-45.0); Lymphocytes % 9.5 % (15.3-44.8); MPV 7.4 fL (7.6-11.3); RBC Red Blood Cell Count 4.08 M/uL (3.86-4.86)
[2021-02-19 00:03] LABS: Protime INR 1.13
[2021-02-19 00:17] LABS: ALT/SGPT 25 U/L (12-78); AST/SGOT 12 U/L (15-37); Albumin 2.9 g/dL (3.4-5.0); Alkaline Phosphatase 65 U/L (45-117); BUN Blood Urea Nitrogen 11 mg/dL (7-18); Bicarbonate 32 mmol/L (21-32); Bilirubin Direct 0.1 mg/dL (0-0.2); Bilirubin Total 0.4 mg/dL (0.2-1.0); Glucose Level 224 mg/dL (74-106); Magnesium 1.7 mg/dL (1.8-2.4); NT PRO-BNP 451 pg/mL (<125); Potassium 3.8 mmol/L (3.5-5.1); Sodium Level 131 mmol/L (136-145)
--- NOTE | 2021-02-19 01:13 | ER ---
Nurse's Notes [facility] Name: Dalia Reyes Age: 65 yrs Sex: Female : 1955 Arrival Date: 02/18/2021 Time: 22:45 Bed 5 Private MD: Diagnosis: COPD/ Chronic obstructive pulmonary disease with (acute) exacerbation;Headache Presentation: 02/18 22:47 Chief complaint: EMS states: Headache x 3 days and confusion. Risk Assessment: Do you st1 want to hurt yourself or someone else? Patient reports no desire to harm self or others. 22:47 Method Of Arrival: EMS: [facility] st1 22:48 Acuity: CONSTANTINO 3 st1 23:54 Coronavirus screen: Vaccine status: Patient reports being unvaccinated. Patient refuses st1 vaccination. Ebola Screen: Patient negative for fever greater than or equal to 101.5 degrees Fahrenheit, and additional compatible Ebola Virus Disease symptoms. Initial Sepsis Screen: Does the patient meet any 2 criteria? No. Patient's initial sepsis screen is negative. 23:55 Initial Sepsis Screen: Does the patient have a suspected source of infection? No. st1 Patient's initial sepsis screen is negative. Onset of symptoms. Triage Assessment: 22:48 General: Appears distressed, uncomfortable, slender, well groomed, well nourished. st1 General: Behavior is calm, cooperative, quiet. Pain: Complains of pain in face Pain does not radiate. Pain currently is 9 out of 10 on a pain scale. Quality of pain is described as aching, Pain began 3 days ago Is continuous. Historical: - Allergies: 02/19 00:23 Benadryl; st1 - Home Meds: 02/18 23:18 Albuterol Inhl [Active]; aspirin 81 mg Oral chew 1 tab once daily [Active]; st1 atorvastatin 80 mg Oral tab 1 tab once daily [Active]; - PMHx: 02/19 00:23 Chronic obstructive lung disease; st1 00:24 Hypertensive disorder; Hypercholesterolemia; st1 - Immunization history:: Adult Immunizations not immunized. - Social history:: Smoking status: Patient reports the use of cigarette tobacco products, smokes one pack cigarettes per day. Screenin/11 23:22 Abuse screen: Denies threats or abuse. Nutritional screening: No deficits noted. st1 Tuberculosis screening: No symptoms or risk factors identified. Fall Risk None identified. No fall in past 12 months (0 pts). No secondary diagnosis (0 pts). IV access (20 points). Ambulatory Aid- None/Bed Rest/Nurse Assist (0 pts). Gait- Normal/Bed Rest/Wheelchair (0 pts) Mental Status- Overestimates/Forgets Limitations (15 pts.). Total Coronel Fall Scale indicates Low Risk Score (25-44 pts). Fall prevention measures have been instituted. Side Rails Up X 2 Frequent Obs/Assesments occuring As available Patient and Family Educated on Fall Prevention Program and strategies. Assessment: 22:50 General: Appears distressed, uncomfortable, slender, well groomed, well developed, st1 Behavior is calm, cooperative, appropriate for age, Smells of. Pain: Complains of pain in face Pain does not radiate. Pain currently is 9 out of 10 on a pain scale. Quality of pain is described as aching, Pain began 3 days ago Is continuous, Alleviated by nothing. Neuro: Reports confusion started today . Cardiovascular: No deficits noted. Respiratory: Reports shortness of breath air hunger labored breathing Ventilator assessment: Breath sounds are coarse bilaterally. Musculoskeletal: No deficits noted. Vital Signs: 22:52 BP 147 / 80; Pulse 111; Resp 22; Temp 98.3; Pulse Ox 97% ; st1 23:42 BP 126 / 74; Pulse 109; Resp 20; Pulse Ox 94% 3 lpm ; st1 12 00:55 BP 83 / 55; Pulse 110; Resp 22; Pulse Ox 97% 3 lpm ; st1 01:55 BP 140 / 65; Pulse 60; Resp 20; Pulse Ox 100% ; st1 Vitals: 02/18 22:52 Cardiac Rhythm Assessment Sinus tach. st1 ED Course: 22:45 Patient arrived in ED. iw 22:45 Isaac Herman MD is Attending Physician. sp3 22:47 Marija Miller, SIDDHARTH is Primary Nurse. st1 22:47 Arm band placed on right wrist. Patient placed in an exam room, on a stretcher, on st1 oxygen, on afloat cryptologic manager, on pulse oximetry. EKG completed in triage. Results shown to MD. EKG completed in triage. Results shown to MD. 22:48 Triage completed. st1 23:07 CBC with Diff Sent. st1 23:07 NT PRO-BNP Sent. st1 23:07 PT-INR Sent. st1 23:07 Troponin HS Sent. st1 23:07 Basic Metabolic Panel Sent. st1 23:07 Magnesium Sent. st1 23:07 Liver (Hepatic) Function Sent. st1 23:17 Basic Metabolic Panel Sent. st1 23:17 LFT's Sent. st1 23:17 Magnesium Sent. st1 23:23 XRAY Chest (1 view) In Process Unspecified. EDMS 23:23 Patient has correct armband on for positive identification. Fall risk band placed. Bed st1 in low position. Call light in reach. Side rails up X2. 23:40 Magnesium Sent. st1 23:40 Liver (Hepatic) Function Sent. st1 23:40 Basic Metabolic Panel Sent. st1 23:40 CBC with Diff Sent. st1 23:40 NT PRO-BNP Sent. st1 23:40 PT-INR Sent. st1 23:40 Troponin HS Sent. st1 23:54 CT Head Brain wo Cont In Process Unspecified. EDMS 02/19 00:22 Magnesium Sent. st1 00:22 Liver (Hepatic) Function Sent. st1 00:22 Basic Metabolic Panel Sent. st1 00:22 NT PRO-BNP Sent. st1 00:22 Troponin HS Sent. st1 01:56 No provider procedures requiring assistance completed. st1 Administered Medications: No medications were administered Outcome: 01:12 Discharge ordered by . sp3 02:44 Patient left the ED. mw2 Signatures: Dispatcher [employer] EDNM Phoebe Hong RN RN iw [place], MyKena mw2 Isaac Herman MD MD sp3 Marija Miller RN RN st1 Corrections: (The following items were deleted from the chart) 02/18 23:21 23:18 PMHx: COPD; st1 st1 23:21 23:18 PMHx: Hypertension; st1 st1 23:21 23:18 PMHx: Diabetes (non-insulin dependant); st1 st1 23:21 23:18 PSHx: heart stent; st1 st1 02/19 00:25 02/18 23:18 Allergies: Benadryl; st1 st1 02/19 00:25 01/11 23:18 Allergies: NKDA; st1 st1
--- NOTE | 2021-02-19 01:13 | EDPHYS ---
Physician Documentation [facility] Name: Dalia Reyes Age: 65 yrs Sex: Female : 1955 Arrival Date: 02/18/2021 Time: 22:45 Bed 5 Private MD: ED Physician Isaac Herman HPI: 02/18 22:49 This 65 yrs old Female presents to ER via EMS with complaints of shortness of breath. sp3 22:49 85-year-old female with a history of poorly controlled COPD, hypertension, diabetes, sp3 prior cardiac stent presents via EMS again today for dyspnea and COPD exacerbation. Patient was found at home with a pulse ox of 87% on 3 L nasal cannula the patient was attempting to start another neb treatment. EMS states that they noticed patient well and today she was slightly confused which is different than her baseline. Patient denies any headache, trauma, neck pain, chest pain, back pain, abdominal pain, nausea, vomiting, diarrhea, rash, any other symptoms. EMS gave Solu-Medrol and a nebulizer treatment in route.. Historical: - Allergies: 02/19 00:23 Benadryl; st1 - Home Meds: 02/18 23:18 Albuterol Inhl [Active]; aspirin 81 mg Oral chew 1 tab once daily [Active]; st1 atorvastatin 80 mg Oral tab 1 tab once daily [Active]; - PMHx: 02/19 00:23 Chronic obstructive lung disease; st1 00:24 Hypertensive disorder; Hypercholesterolemia; st1 - Immunization history:: Adult Immunizations not immunized. - Social history:: Smoking status: Patient reports the use of cigarette tobacco products, smokes one pack cigarettes per day. ROS: 02/18 22:51 Constitutional: Negative for fever, chills, and weight loss. sp3 Eyes: Negative for injury, pain, redness, and discharge, ENT: Negative for injury, pain, and discharge, Neck: Negative for injury, pain, and swelling, Abdomen/GI: Negative for abdominal pain, nausea, vomiting, diarrhea, and constipation, Back: Negative for injury and pain, MS/Extremity: Negative for injury and deformity, Skin: Negative for injury, rash, and discoloration, Psych: Negative for depression, anxiety, suicide ideation, homicidal ideation, and hallucinations, Allergy/Immunology: Negative for hives, rash, and allergies, Endocrine: Negative for neck swelling, polydipsia, polyuria, polyphagia, and marked weight changes. All other systems are negative. Exam: 22:52 Constitutional: This is a well developed, well nourished patient who is awake, alert, sp3 and in no acute distress. Head/Face: Normocephalic, atraumatic. Eyes: Pupils equal round and reactive to light, extra-ocular motions intact. Lids and lashes normal. Conjunctiva and sclera are non-icteric and not injected. Cornea within normal limits. Periorbital areas with no swelling, redness, or edema. ENT: Nares patent. No nasal discharge, no septal abnormalities noted. External auditory canals are clear. Oropharynx with no redness, swelling, or masses, exudates, or evidence of obstruction, uvula midline. Mucous membranes moist. Neck: Trachea midline, no thyromegaly or masses palpated, and no cervical lymphadenopathy. Supple, full range of motion without nuchal rigidity, or vertebral point tenderness. No Meningismus. Chest/axilla: Normal chest wall appearance and motion. Nontender with no deformity. No lesions are appreciated. Abdomen/GI: Soft, non-tender, with normal bowel sounds. No distension or tympany. No guarding or rebound. No evidence of tenderness throughout. Back: No spinal tenderness. No costovertebral tenderness. Full range of motion. MS/ Extremity: Pulses equal, no cyanosis. Neurovascular intact. Full, normal range of motion. Neuro: Awake and alert, GCS 15, oriented to person, place, time, and situation. Cranial nerves II-XII grossly intact. Motor strength 5/5 in all extremities. Sensory grossly intact. Cerebellar exam normal. Normal gait. Psych: Awake, alert, with orientation to person, place and time. Behavior, mood, and affect are within normal limits. 22:52 Cardiovascular: Patient has mild tachycardia in the 106 range and a sinus tach rhythm. Respiratory exam reveals scattered wheezes without severe rhonchi with moderate air exchange noted.. 22:52 Neuro: Patient has normal mental status and neurological exam at this time. There are no focal deficits.. 23:37 ECG was reviewed by the Attending Physician. With sinus tachycardia at 104 bpm with sp3 normal intervals, normal QRS, normal axis, nonspecific ST/T changes without evidence of ischemia. Vital Signs: 22:52 BP 147 / 80; Pulse 111; Resp 22; Temp 98.3; Pulse Ox 97% ; st1 23:42 BP 126 / 74; Pulse 109; Resp 20; Pulse Ox 94% 3 lpm ; st1 02/19 00:55 BP 83 / 55; Pulse 110; Resp 22; Pulse Ox 97% 3 lpm ; st1 01:55 BP 140 / 65; Pulse 60; Resp 20; Pulse Ox 100% ; st1 MDM: 02/18 22:47 Patient medically screened. sp3 22:53 Data reviewed: vital signs, nurses notes. ED course: Standard cardiac work-up for COPD sp3 will be obtained along with a CT scan of the head given the history of confusion. Continue nebulizers as needed although patient does not have bad wheezing at this time. Solu-Medrol IV has already been given. Disposition will be made at the end of data acquisition in conjunction with patient reassessment. At this time I am not highly suspicious for respiratory failure, CVA, acute coronary syndrome, vascular compromise, sepsis, shock, any other critical findings. Patient seems to have an acute exacerbation of her chronic COPD which she has had many times in the past. Majority of her past visits have ended and discharged with a few admissions.. 02/19 01:05 ED course: Laboratory results are normal and chest x-ray demonstrates fibrosis pattern sp3 consistent with COPD without evidence of any acute infiltrate. CT scan of the head is normal. Patient vital signs are improved as is her work of breathing. Will discharge patient home on oral antibiotic with continued use of her home medications.. 01:11 ED course: Patient states she still has a mild headache and heart rate is between 95 sp3 and 100. Offered ketorolac but patient states that she would rather just take her ibuprofen at home. I also offered her 23-hour observation for her COPD if she felt like she needed it, but she states that she would rather just go home at this time.. 02/18 22:45 Order name: Basic Metabolic Panel sp3 02/18 22:45 Order name: CBC with Diff; Complete Time: 01:02 sp3 02/18 22:45 Order name: LFT's sp3 02/18 22:45 Order name: Magnesium sp3 02/18 22:45 Order name: NT PRO-BNP; Complete Time: : sp3 02/18 22:45 Order name: PT-INR; Complete Time: 01:02 sp3 02/18 22:45 Order name: Troponin HS; Complete Time: 01:02 sp3 02/18 22:45 Order name: XRAY Chest (1 view) sp3 02/18 22:45 Order name: EKG; Complete Time: 22:46 sp3 02/18 22:45 Order name: Cardiac monitoring; Complete Time: 22:55 sp3 02/18 22:45 Order name: CT Head Brain wo Cont sp3 02/18 22:46 Order name: Basic Metabolic Panel; Complete Time: 01:02 EDMS 02/18 22:46 Order name: Liver (Hepatic) Function; Complete Time: 01:02 EDMS 02/18 22:46 Order name: Magnesium; Complete Time: 01:02 EDMS 02/18 22:45 Order name: EKG - Nurse/Tech; Complete Time: 23:07 sp3 02/18 22:45 Order name: IV Saline Lock; Complete Time: 22:55 sp3 02/18 22:45 Order name: Labs collected and sent; Complete Time: 23:07 sp3 02/18 22:45 Order name: O2 Per Protocol; Complete Time: 22:53 sp3 02/18 22:45 Order name: O2 Sat Monitoring; Complete Time: 22:53 sp3 02/18 23:20 Order name: Labs - recollect needed: all labs; Complete Time: 23:40 mw2 Administered Medications: No medications were administered Disposition Summary: 02/19/21 01:12 Discharge Ordered Location: Home sp3 Condition: Stable sp3 Diagnosis - COPD/ Chronic obstructive pulmonary disease with (acute) exacerbation sp3 - Headache sp3 Followup: sp3 - With: Private Physician - When: Upon discharge from the Emergency Department - Reason: Continuance of care Discharge Instructions: - Discharge Summary Sheet sp3 - Chronic Obstructive Pulmonary Disease sp3 - General Headache Without Cause sp3 Forms: - Medication Reconciliation Form sp3 - Thank You Letter sp3 - Antibiotic Education sp3 - Prescription Opioid Use sp3 Prescriptions: - Zithromax Z-Jhoan 250 mg Oral Tablet - take 1 tablet by ORAL route as directed for 5 days Day 1 - take two (2) tablets sp3 one time. Day 2, 3, 4 , 5 take one (1) tablet once daily.; 6 tablet; Refills: 0, Product Selection Permitted Signatures: Dispatcher [employer] Sylvain Kim mw2 Isaac Herman MD MD sp3 Marija Miller RN RN st1 Corrections: (The following items were deleted from the chart) 02/18 22: 23:18 PMHx: COPD; st1 st1 23:18 PMHx: Hypertension; st1 st1 23:18 PMHx: Diabetes (non-insulin dependant); st1 st1 23:18 PSHx: heart stent; st1 st1 02/19 00:25 02/18 23:18 Allergies: Benadryl; st1 st1 02/19 00:02/18 23:18 Allergies: NKDA; st1 st1
[2021-02-19 02:49] VITALS: TEMP 98.3
[2021-02-19 02:55] VITALS: BP 140/65; O2SAT 100
--- NOTE | 2021-02-19 07:01 | RAD REPORT ---
EXAM DESCRIPTION: RAD - Chest Single View - 02/18/2021 11:22 pm CLINICAL HISTORY: COPD, shortness of breath COMPARISON: Portable 12/09/2020 TECHNIQUE: AP portable chest image was obtained 02/18/2021 11:22 pm . FINDINGS: Lungs are fibrotic. No focal consolidation or mass. Interstitial pattern is slightly more pronounced than seen previously suspicious for superimposed interstitial edema or infiltrate. Pulmona ry arteries are prominent but not clearly different. Heart size and upper lobe vasculature similar to comparison. No pneumothorax present. Costophrenic angle blunting could be pleural scarring, small pl eural effusions or a combination. No acute bony abnormality seen. No acute aortic findings suspected. IMPRESSION: Mild interstitial edema or interstitial infiltrate superimposed on chronic fibrosis.
--- NOTE | 2021-02-19 07:46 | EKG ---
Test Date: 2021-02-18 Test Time: 23:01:02 Accounts Payables Clerk: MEASUREMENT RESULTS: Intervals: Rate: 104 AK: 124 QRSD: 74 QT: 330 QTc: 433 [place]: P: 81 AK: 124 QRS: 71 T: 72 INTERPRETIVE STATEMENTS: Sinus tachycardia Right atrial enlargement Borderline ECG Compared to ECG 12/09/2020 21:25:10 Sinus rhythm no longer present Electronically Signed On 02-19-21 07:45:34 CANCER RESEARCHER by Ramses Palmer
--- NOTE | 2021-02-19 11:48 | RAD REPORT ---
EXAM DESCRIPTION: CT - Head Brain Wo Cont - 02/19/2021 6:02 am CLINICAL HISTORY: The patient is 65 years old and is Female; CONFUSED TECHNIQUE: Axial computed tomography images of the head/brain without intravenous contrast. Sagitt al and coronal reformatted images were created and reviewed. This CT exam was performed using one o r more of the following dose reduction techniques: automated exposure control, adjustment of the mA and/or kV according to patient size, and/or use of iterative reconstruction technique. COMPARISON: No relevant prior studies available. FINDINGS: BRAIN: Unremarkable. The navarro-white matter differentiation is preserved . No hemorrhag e. No significant white matter disease. No edema. No extra-axial fluid collections. VENTRICLES: Unremarkable. No ventriculomegaly. BONES/JOINTS: No acute fracture. SOFT TISSUES: Unremarkable. SINUSES: Unremarkable as visualized. No acute sinusitis. MASTOID AIR CELLS: Unremarkable as visualized. No mastoid effusion. ORBITS: Unremarkable as visualized. IMPRESSION: No acute intracranial findings. Electronically signed by: Radha Watts MD 02/19/2021 12:07 AM EDITOR SOUND Due to temporary technical issues with the PACS/Fluency reporting system, reports are being signed by the in house radiologist without review as a courtesy to ensure prompt reporting. The interpreting r adiologist is fully responsible for the content of the report.
== END 2021-02-19 02:44 | disposition home or self-care (01) ==
LOC: ER 22:41
DX: J44.1 Chronic obstructive pulmonary disease with (acute) exacerbation (principal); R51.9 Headache, unspecified; I10 Essential (primary) hypertension; F17.210 Nicotine dependence, cigarettes, uncomplicated; Z79.82 Long term (current) use of aspirin; Z88.8 Allergy status to other drugs, medicaments and biological substances
CPT/HCPCS: 36415; 70450; 71045; 80048; 80076; 83735; 83880; 84484; 85025; 85610; 93005; 99284

== ENCOUNTER 2021-04-16 22:29 | Emergency (ER) | payer OTHER ==
--- OUTSIDE RECORDS SUMMARY | 2021-04-16 22:33 | XMS REPORT | Continuity of Care Document ---
:1955 Author Organization [facility] t Address [address] [id number] Care Team Providers Name Role Phone ROSITA Lyon [facility] Primary Care Physic porsha Unavailable Doctor Unassigned, Name Attending Clinician Unavailable Filippo Attending Clinician Luiz FUNEZ JR Attending Clinician Unavailable Clifford Mike MD Attending Clinician Meghan Monae MD Attending Clinician [phone] Artie Echeverria Attending Clinician Clifford MIKE Attending [...] ity of syndrome) syndrome[place] [address] [place] [address] SOB SOB Disease Active 2019-02 Univers (shortness (shortness 1-19 it y of of breath) [place] breath[place] [address] [place] [address] No known No known Disease Unive rs active active ity of problems problems [facility] Allergies, Adverse Reactions, Alerts Allergy Allergy Status Severity Reaction(s) Onset Inactive Treating Comm ents Source Name Type Date Date Clinician DIPHENHY DRUG Active Anxiety 2019-0 Univers DRAMINE INGREDI 6-18 ity of 00:00: [address] Diphenhy Propensi Active Anxiety 2020-0 Unive rs dramine ty to 618 ity of adverse 00:00: [place] reaction 00 Medical s Branch NO KNOWN Drug Active Univers ALLERGIE Class ity of S [place] [facility] [place] Social History Social Habit Start Date Stop Date Quantity Comments Source History of tobacco Cigarette Smoker University of use [facility] Exposure to Not sure [facility] SARS-CoV-2 (event) [facility] Cigarettes smoked 2019-12-28 2019-12-28 Univers ity of current (pack per 00:00:00 00:00:00 [facility] edical day) - Reported Branch Cigarette 2019-12-28 2019-12-28 University of pack-years 00:00:00 00:00:[address] [facility] Tobacco use and 2019-12-28 2019-12-28 Never used Universit y of exposure 00:00:00 00:00:00 [facility] Branch Alcohol intake 2019-12-28 2019-12-28 Lifetime University of 00:00:00 00:00:00 non-drinker [place] [facility] (finding) Branch History SDOH 2019-12-28 2019-12-28 1 University o f Alcohol Frequency 00:00:00 00:00:00 [facility] Branch History SDOH 2019-12-28 2019-12-28 99 University o f Alcohol Std Drinks 00:00:00 00:00:00 [facility] Branch History SDOH 2019-12-28 2019-12-28 1 University o f Alcohol Binge 00:00:00 00:00:00 [facility] al Branch Smoking Status Start Date Stop Date Source Current every day smoker 2019-12-28 00:00:00 Uni vers[address] of [facility] Unknown if ever smoked [facility] Medications Ordered Filled Start Stop Current Ordering Indication Dosage Frequency Signature Comments Components Source Medication Medication Date Date Medication? Clinician (SIG) Name Name metFORMIN 2019-02 Yes 500mg Take 500 Uni vers 500 mg 1-21 mg by ity of tablet 20:14: mouth 2 [place] (two) Medical times Branch daily with meals. traZODone 2019-02 Yes 150mg Take 150 Uni vers 100 mg 1-21 mg by ity of tablet 20:14: mouth at [place] bedtime. Medical Branch busPIRone 2019-02 Yes 7.5mg [...] Puff 2 ity of 44 20:14: (two) [facility]/actuati 09 times Medical on inhaler daily. Branch albuterol 2019-02 Yes 2{puff} Inhale 2 U nivers (PROVENTIL 1-21 Puffs ity of HFA) 90 20:14: every 6 [place] mcg/actuati (six) Medical on inhaler hours as Branc h needed for Wheezing or Shortness of Breath. atorvastati 2019-02 Yes 80mg Take 80 mg Univers n (LIPITOR) 1-21 by mouth ity of 80 mg 20:14: at [place] [address] bedtime. Medical Branch mupirocin 2 2019-02 Yes Apply to U nivers % ointment 1-21 area(s) 2 ity of 20:14: (two) [place] [address] times Medical daily. Branch metoprolol 2019-02 Yes [...] by ity of tablet 20:14: mouth at [place] [address] bedtime. Medical Branch busPIRone 2019-02 Yes 7.5mg Take 7.5 Uni vers 7.5 mg 1-21 mg by ity of tablet 20:14: mouth 2 [place] (two) Medical times Branch daily. FLUoxetine 2019-02 [...] Puff 2 ity of 44 20:14: (two) [place] mcg/actuati 09 times Medical on inhaler daily. Branch albuterol 2019-02 Yes 2{puff} Inhale 2 U nivers (PROVENTIL 1-21 Puffs ity of HFA) 90 20:14: every 6 [place] mcg/actuati (six) Medical on inhaler hours as Branc h needed for Wheezing or Shortness of Breath. atorvastati 2019-02 Yes 80mg Take 80 mg Univers n (LIPITOR) 1-21 by mouth ity of 80 mg 20:14: at [place] [address] bedtime. Medical Branch mupirocin 2 2019-02 Yes Apply to U nivers % ointment 1-21 area(s) 2 ity of 20:14: (two) [place] [address] times Medical daily. Branch metoprolol 2019-02 Yes [...] by ity of tablet 20:14: mouth at [place] [address] bedtime. Medical Branch busPIRone 2019-02 Yes 7.5mg [...] Until Discontinu ed, Routine clopidogreL 2019-02 Yes [id number] 75mg Take 1 Univers 75 mg 1-21 tablet by ity of tablet 00:00: mouth [place] 00 daily. Medical Branch aspirin 81 2019-02 Yes [id number] 81mg Take 1 Univers mg chewable 1-21 tablet by ity of tablet 00:00: mouth [place] 00 daily. Medical Branch predniSONE 2019-02 Yes [id number] 40mg Take 2 U nivers 20 mg 1-21 tablets by ity of tablet 00:00: mouth [place] 00 daily. Medical Branch clopidogreL 2019-02 Yes [id number] 75mg Take 1 Univers 75 mg 1-21 tablet by ity of tablet 00:00: mouth [place] 00 daily. Medical Branch aspirin 81 2019-02 Yes [id number] 81mg Take 1 Univers mg chewable 1-21 tablet by ity of tablet 00:00: mouth [place] 00 daily. Medical Branch predniSONE 2019-02 Yes [id number] 40mg Take 2 U nivers 20 mg 1-21 tablets by ity of tablet 00:00: mouth 00 daily. Medical Branch aspirin 81 2019- Yes [id number] 81mg Take 1 Univers mg chewable 1-21 tablet by ity of tablet 00:00: mouth 00 daily. Medical Branch clopidogreL 2019-02- No 75mg Take 75 mg Univers 75 mg 02-27 by mouth ity of tablet 22:51: 00:00 daily. [place] 35 :00 Medical Branch clopidogreL 2019-02- No Oral, Univ ers (PLAVIX) 02-27 TITRATE - ity o f tablet 21:25: 21:25 FOR [place] 13 :13 PROCEDURE Medical USE, 1 Branch dose, Starting Wed12/29/19 at 1525, Until Wed12/29/19 at 1525, Routine ticagrelor 2019-02- No Oral, Unive rs (BRILINTA) 02-27 TITRATE - ity of tablet 20:57: 20:57 FOR [place] 39 :39 PROCEDURE Medical USE, 1 Branch [...] First dose [place] mg 00 on [facility] Medical 12/28/19 Branch at 2000, Until Discontinu ed, Routine predniSONE 2019-02 Yes [id number] 40mg Take 2 U nivers 20 mg 1-20 tablets by ity of tablet 00:00: mouth [place] 00 daily. Medical Branch clopidogreL 2019-02 Yes [id number] 75mg Take 1 Univers 75 mg 1-20 tablet by ity of tablet 00:00: mouth [place] 00 daily. Medical Branch predniSONE 2019-02 2020- No [id number] 40mg Take 2 Univers 20 mg 1-20 11-20 tablets by ity of tablet 00:00: 00:00 mouth [place] 00 :00 daily. Medical Branch predniSONE 2019-02 2020- No [id number] 40mg Take 2 Univers 20 mg 02-27 tablets by ity of tablet 00:00: 00:00 mouth [place] 00 :00 daily for Medical 4 days. Branch atorvastati 2019-02- No 40mg 40 mg, Uni vers n (LIPITOR) 02-26 Oral, QPM, i ty of tablet 40 23:00: 02:01 First dose [place] mg 00 :46 on [facility] Medical 12/28/19 Branch at 1700, Until Discontinu [...] 12/28/19 Bran ch mL at 1245, Routine
manager membership approving Restricted medication : DEJAN GONSALEZ Saline 2019-02- No 6mL 6 mL, Univers Bubble 02-26 Injection, ity of Study 17:33: 22:27 SEE-INSTRU [place] 16 :16 CTIONS, 2 Medical doses, Branch Starting [facility] 12/28/19 at 1133, Until Wed12/29/19 at 1627, Routine Saline 2019-02 Yes 6mL 6 mL, Univers Bubble 02-26 Injection, ity of Study 17:33: SEE-INSTRU [place] 14 CTIONS, 2 Medical doses, Branch Starting [facility] 12/28/19 at 1133, Until Discontinu ed, Routine clopidogreL 2019-02 Yes 75mg 75 mg, Univ ers (PLAVIX) 02-26 Oral, ity of tablet 75 15:00: DAILY, [place] mg 00 First dose Medical on [facility] Branch 12/28/19 at 0900, Until Discontinu ed, Routine
manager membership approving Restricted medication : LEXY MONAE aspirin [...] First dose [place] half tablet 00 on [facility] Medica l 12.5 mg 12/28/19 Branch at 0800, Until Discontinu ed, Routine heparin 2019-02 No 12U/kg/ 12 Univer s 25,000 02-26 h Units/kg/h ity of Units/250 12:55: 22:27 r ?58.9 kg [place] mL 58 :16 (7.068 Medical (Premixed mL/hr, Branch Bag) in rounded to 0.45 % NS 7.07 mL/hr), IV Infusion, TITRATE, Parameters in Admin. Instr., Starting [facility] 12/28/19 at 0655
CA UTION - If LMWH given in ER, AVOID bolus and start next dose/drip 12 hrs after ER dosage.&nb sp; M ust program rate using programmab le infusion pump.&nbsp ; Marayna ck with the ordering provider first prior to any administra tion should the patient be on existing/a dditional anticoagul ant therapy. Rang e, Dosing and Testing: &nbs p;FOR [facility] AND [facility] ONLY &nbs p; - [...] Push, Branc h Units ONCE, 1 dose, [facility] 12/28/19 at 0600, Routine albuterol 2019-02 Yes 2.5mg 2.5 mg, Univ ers (PROVENTIL) 02-26 Inhalation it y of 2.5 mg /3 10:00: , Q4H, [place] mL (0.083 00 First dose Medi piedad %) on [facility] Branch nebulizer 12/28/19 solution at 0400, 2.5 mg Until Discontinu ed, Routine ipratropium 2019-02 Yes .5mg 0.5 mg, Uni vers (ATROVENT) 02-26 Inhalation ity of 0.02 % 10:00: , Q4H, [place] nebulizer 00 First dose Medi piedad solution on [facility] Branch 0.5 mg 12/28/19 at 0400, Until [...] 02-26 Oral, ity of (TYLENOL) 08:36: Q6HPRN, [place] tablet 650 38 Starting Medic al mg [facility] Branch 12/28/19 at 0236, Until Discontinu ed, Routine, Pain (scale 1-3) nicotine 2019-02 Yes 1{patch 1 Patch, Un destiny (NICODERM) 02-26 } Topical, ity o f 21 mg/24 hr 06:15: Administer [place] patch 1 00 over 24 Medical Patch [...] ty of succ 02:45: 01:47 ONCE, 1 [place] (SOLU-MEDRO 00 :00 dose, Wed Med ical L (PF)) 12/27/19 Branch injection at 2045, 40 mg STAT metoprolol 2019-02 2020- No [id number] 12.5mg Take 0.5 Univers tartrate 25 02-26 tablets by i ty of mg tablet 00:00: 00:00 mouth 2 [place] 00 :[place] (two) Medical times Branch daily. albuterol-i 2019-02 2020- No [id number] 1{puff} Inhale 1 Univers pratropium 02-26-19 Puff 4 ity of 20-100 00:00: 00:00 (four) [place] mcg/actuati 00 :00 times Medical on inhaler daily. [place] metoprolol 2019-02- No [id number] 12.5mg Take 0.5 Univers tartrate 25 02-26-19 tablets by i ty of mg tablet 00:00: 00:00 mouth 2 [place] 00 :[place] (two) Medical times [place] daily. metoprolol 2019-02- No [id number] 12.5mg Take 0.5 Univers tartrate 25 02-26- tablets by i ty of mg tablet 00:00: 00:00 mouth 2 [place] 00 :00 (two) Medical times [place] daily. aspirin 2019- No 324mg 324 mg, Unive rs chewable 07-26 Oral, ity of tablet 324 22:30: 21:42 ONCE, 1 [place] as mg 00 :00 dose, [facility] 07/27/19 at [place] 1730, Routine No known No Univers medications ity of [facility] Vital Signs Vital Name Observation Time Observation Value Comments Source Systolic blood 2019-12-30 135 mm[Hg] University of pressure 17:24:[address] [facility] Diastolic blood 2019-12-30 72 mm[Hg] University o f pressure 17:24:[address] [facility] Heart rate 2019-12-30 78 /min [facility] 17:24:[address] [facility] Body temperature 2019-12-30 35.61 Annemarie University 17:24:[address] [facility] Respiratory rate 2019-12-30 18 /min University of 17:24:[address] [facility] Oxygen saturation 2019-12-30 91 /min [facility] in Arterial blood 17:24:00 [facility] by Pulse oximetry [place] Body weight 2019-12-30 57.924 kg pt's actual wt University of 10:03:00 on regular [facility] [place] [facility] scale [place] BMI 2019-12-30 20.61 kg/m2 University 10:03:[address] [facility] Body height 2019-12-29 167.6 cm [facility] 20:18:[address] [facility] Systolic blood 2019-12-30 135 mm[Hg] University of pressure 17:24:[address] [facility] Diastolic blood 2019-12-30 72 mm[Hg] University o f pressure 17:24:00 [place] [facility] Heart rate 2019-12-30 78 /min University of 17:24:00 [place] [facility] Body temperature 2019-12-30 35.61 Annemarie University of 17:24:00 [place] [facility] Respiratory rate 2019-12-30 18 /min University of 17:24:00 [facility] Branch Oxygen saturation 2019-12-30 91 /min University of in Arterial blood 17:24:00 [place] Medi piedad by Pulse oximetry Branch Body weight 2019-12-30 57.924 kg pt's actual wt University of 10:03:00 on regular [place] Medical scale Branch BMI 2019-12-30 20.61 kg/m2 University of 10:03:00 [facility] Branch Body height 2019-12-29 167.6 cm University of 20:18:00 [place] [facility] Systolic blood 2019-07-27 120 mm[Hg] University of pressure 21:35:00 [facility] Branch Diastolic blood 2019-07-27 79 mm[Hg] University o f pressure 21:35:00 [place] [facility] Heart rate 2019-07-27 93 /min University of :35:00 [place] [facility] Respiratory rate 2019-07-27 12 /min University of :35:00 [facility] Branch Oxygen saturation 2019-07-27 95 /min University of in Arterial blood 21:35:00 [place] Medi piedad by Pulse oximetry Branch Body temperature 2019-07-27 37.5 Annemarie University of 21:15:00 [place] [facility] Body height 2019-07-27 167.6 cm University of 21:15:00 [facility] Branch Body weight 2019-07-27 55.792 kg University of 21:15:00 [facility] Branch BMI 2019-07-27 19.85 kg/m2 University of 21:15:00 [facility] Branch Systolic blood 2019-07-27 120 mm[Hg] University of pressure 21:35:00 [place] [facility] Diastolic blood 2019-07-27 79 mm[Hg] University o f pressure 21:35:00 [facility] Branch Heart rate 2019-07-27 93 /min University of 21:35:00 [place] [facility] Respiratory rate 2019-07-27 12 /min University of 21:35:00 [facility] Branch Oxygen saturation 2019-07-27 95 /min University of in Arterial blood 21:35:00 [place] Medi piedad by Pulse oximetry Branch Body temperature 2019-07-27 37.5 Annemarie University of 21:15:[address] [facility] Body height 2019-07-27 167.6 cm [facility] :15:[address] [facility] Body weight 2019-07-27 55.792 kg [facility] :15:[address] [facility] BMI 2019-07-27 19.85 kg/m2 [facility] 21:15:[address] [facility] Procedures Procedure Date / Time Performing Clinician Source Performed EXTERNAL PROVIDER 2020-01-17 06:01:00 Doctor Unassigned, No [facility] RECORDS Name Medical Branch POCT GLUCOSE 2019-12-30 15:25:00 [facility] (AUTOMATED) Meghan Epperson [facility] MAGNESIUM 2019-12-30 10:10:00 [facility] BASIC METABOLIC PANEL 2019-12-30 10:10:00 [facility] (NA, K, CL, CO2, Medical Branch GLUCOSE, BUN, CREATININE, CA) CBC WITH DIFF 2019-12-30 10:10:00 [facility] [place] [facility] POCT GLUCOSE 2019-12-30 01:50:00 [facility] (AUTOMATED) Meghan taniya [facility] POCT GLUCOSE 2019-12-29 23:32:00 [facility] (AUTOMATED) Meghan Epperson [facility] HB ECG ROUTINE & RHYTHM 2019-12-29 14:11:36 [facility] STRIP [facility] POCT GLUCOSE 2019-12-29 14:00:00 [facility] (AUTOMATED) Meghan Epperson [facility] MAGNESIUM 2019-12-29 10:58:00 [facility] BASIC METABOLIC PANEL 2019-12-29 10:58:00 [facility] (NA, K, CL, CO2, Medical Branch GLUCOSE, BUN, CREATININE, CA) ACTIVATED PARTIAL 2019-12-29 10:58:00 [facility] CATHY [facility] EXTERNAL PROVIDER 2019-12-29 06:01:00 Doctor Unassigned, No [facility] RECORDS Name Medical Branch POCT GLUCOSE 2019-12-29 04:16:00 Lexy Monae [facility] (AUTOMATED) Meghan Thibodeaux [facility] Bran ch ACTIVATED PARTIAL 2019-12-29 00:06:00 Mariya [facility] TROPONIN I 2019-12-28 19:46:00 Jesus Paz [facility] LIPID PANEL 2019-12-28 19:46:00 Mariya [facility] ([id number])(TOTAL Medical Branch CHOLESTEROL, TRIGLYCERIDES, HDL) ECHO ROUTINE W/DOPPLER 2019-12-28 16:44:30 Mariya [facility] COLOR [facility] HB ECG ROUTINE & RHYTHM 2019-12-28 13:42:07 Mariya [facility] PROTHROMBIN TIME / INR 2019-12-28 12:24:00 Mariya [facility] ACTIVATED PARTIAL 2019-12-28 12:24:00 Mariya [facility] TROPONIN I 2019-12-28 10:08:00 Mariya [facility] CT CHEST PULMONARY 2019-12-28 04:44:55 Minna Mike [facility] ANGIOGRAM Medical Branch XR CHEST 1 VW 2019-12-28 02:07:34 Minna Mike [facility] COVID-19 (ID NOW RAPID 2019-12-28 01:50:00 Minna Mike [facility] TESTING) Medical Branch HB ECG ROUTINE & RHYTHM 2019-12-28 01:49:31 [facility] 2019-12-28 01:49:00 Minna Mike [facility] THYROID STIMULATING 2019-12-28 01:49:00 Mariya [facility] HORMONE Medical Branch BASIC METABOLIC PANEL 2019-12-28 01:49:00 Minna Mike [facility] (NA, K, CL, CO2, Medical Branch GLUCOSE, BUN, CREATININE, CA) COMP. METABOLIC PANEL 2019-12-28 01:49:00 Minna Mike [facility] ([id number]) Medical Branch CBC WITH DIFF 2019-12-28 01:49:00 Minna Mike [facility] GLYCOSYLATED HEMOGLOBIN 2019-12-28 01:49:00 Willian Meraz [facility] (A1C) [facility] N-TERMINAL PRO-BNP 2019-12-28 01:49:00 Willian Meraz [facility] XR CHEST 1 VW 2019-07-27 22:14:30 Soila Villar [facility] COVID-19 (ID NOW RAPID 2019-07-27 21:43:00 Soila Villar [facility] TESTING) [facility] TROPONIN I 2019-07-27 21:38:00 Soila Villar [facility] HEPATIC FUNCTION PANEL 2019-07-27 21:38:00 Soila Villar [facility] ([id number]) (ALB,T.PRO,BILI [facility] T,BU/BC,ALT,AST,ALK PHOS) BASIC METABOLIC PANEL 2019-07-27 21:38:00 Soila Villar [facility] (NA, K, CL, CO2, Medical Branch GLUCOSE, BUN, CREATININE, CA) CBC WITH DIFFERENTIAL 2019-07-27 21:38:00 Soila Villar [facility] PROTHROMBIN TIME / INR 2019-07-27 21:38:[address] [facility] N-TERMINAL PRO-BNP 2019-07-27 21:38:00 Soila Villar [facility] EKG-12 LEAD 2019-07-27 21:21:22 Soila Villar [facility] NOTICE OF PRIVACY 2019-07-27 20:58:21 Doctor Unassigned, No [facility] PRACTICES Name [facility] Encounters Start End Encounter Admission Attending Care Care Encounter Source Date/Time Date/Time Type Type Clinicians Facility Department ID 2020-01-17 2020-01-17 Orders Doctor NICHOLE [id number] 00:00:00 00:00:00 Only UnassASHLEY baker [id number] [facility] [id number] [id number] 2020-01-17 2020-01-17 Orders Doctor NICHOLE [id number] Univers 00:00:00 00:00:00 Only Unassigned, ASHLEY [id number] ity of [facility] [id number] [place] [id number] [facility] 009 Branch 2020-01-01 2020-01-01 Transition Earnest Barkleyoscar [id number] 00:00:00 00:00:00 of Care Sarah Rossy [id number] [place] [id number] [id number] [facility] 2020-01-01 2020-01-01 Transition Filippo Ree [id number] Univers 00:00:00 00:00:00 of Care Sarah Rossy [id number] ity of [place] 4.2.7.2.686 [place] [id number] [facility] 403 Branch 2019-12-31 2019-12-31 Outpatient Piedad FUNEZ JR, [facility] [id number] Univers 16:00:00 16:00:00 WILLIAN [id number] ity of [facility] 2019-12-27 2019-12-30 [place], [place] Clifford Olivas 1.2.840. [id number] 18:54:00 14:13:00 Encounter Lexy Monae [id number] [facility] [id number] [id number] [facility] 2019-12-27 2019-12-30 [facility] Pathomeroracquel Clifford Olivas 1.2.840. [id number] Univers 18:54:00 14:13:00 Encounter Lexy Monae [id number] ity of David Florian Artie [facility] 4.2.7.2.68 6 [place] [id number] [facility] 090 Branch 2019-12-27 2019-12-27 Emergency [facility] [id number] Univers 18:54:00 18:54:00 MINNA ity [facility] 2019-07-27 2019-07-27 Emergency [facility] [id number] [facility] 16:26:45 18:20:00 Soila Espinosa [id number] [facility] [id number] [facility] [id number] [facility] 084 [place] 2019-07-27 2019-07-27 Emergency X [facility] ERT [id number] Univers 16:26:45 18:20:00 [facility] 2019-07-27 2019-07-27 Emergency [facility] [id number] 16:26:45 18:20:00 Soila Espinosa [id number] [place] 4.2.7.2.686 [place] [id number] Results Test Description Test Time Test Comments Results Result Comments Source POCT GLUCOSE (AUTOMATED) 2019-12-30 15:33:00 Test Item Value Reference Range Interpretation Comme nts POCT GLU (test code = 7292784460) 204 mg/dL 70-110 H Notified Provider Lab Interpretation (test code = 94740-8) Abnormal [facility] METABOLIC PANEL (NA, K, CL, CO2, GLUCOSE, BUN, CREATININE, CA)2019-12-30 10:50:00 Test Item Value Reference Range Interpretation Comments NA (test code = 137 mmol/L 135-145 7938174467) K (test code = 4.1 mmol/L 3.5-5 4597369024) CL (test code = 103 mmol/L 98-108 6764203273) CO2 TOTAL (test code = 29 mmol/L 23-31 1573905117) AGAP (test code = 2-16 3346992506) BUN (test code = 21 mg/dL 7-23 8620054589) GLUCOSE (test code = 97 mg/dL 70-110 2561262527) CREATININE (test code 0.67 mg/dL 0.5-1.04 = 2176440852) CALCIUM (test code = 9.0 mg/dL 8.6-10.6 7587335456) eGFR Calculation mL/min/1.73m2 (Non-) (test code = 1064550255) eGFR Calculation mL/min/1.73m2 () (test code = 3428225888) JOSHUA (test code = JOSHUA) Association of [...] or urine or abnormalities in imaging tests). [facility]:50[facility]00 Test Item Value Reference Range Interpretation Comments MAGNESIUM (test code = 0247602211) 2.2 mg/dL 1.7-2.4 Lab Interpretation (test code = Normal 15161-1) [facility] WITH [id number] 10:26:00 Test Item Value Reference Range Interpretation Comments WBC (test code = See_Comment [Automated 5590-2) message] The sy stem which generated this result transmitted reference range : 4.30 - 11.10 10*3/?L. The reference range was not used to interpret this result as normal/abnormal . RBC (test code = See_Comment [Automated 709-8) message] The sy stem which generated this [...] RDW-SD (test code = 44.0 fL 39-49.9 16789-3) RDW-CV (test code = 12.6 % 12-15.5 788-0) PLT (test code = See_Comment [Automated 777-3) message] The sy stem which generated this result transmitted reference range : 166 - 358 10*3/ ?L. The reference r ramona was not used to interpret this result as normal/abnormal . MPV (test code = 9.7 fL 9.5-12.9 22396-3) NRBC/100 WBC (test See_Comment [Automat ed code = 9189634234) message] The system which generated this result transmitted reference range : 0.0 - 10.0 /100 WBCs. The refer ence range was not u sed to interpret th is result as normal/abnormal . NRBC x10^3 (test code <0.01 See_Comment [Auto mated = 0945090018) message] The s ystem which generated this result transmitted reference range : 10*3/?L. The reference range was not used to interpret this result as normal/abnormal . GRAN MAT (NEUT) % 57.7 % (test code = 770-8) IMM GRAN % (test code 0.20 % = 6290260472) LYMPH % (test code = 31.8 % 736-9) MONO % (test code = 8.1 % 5905-5) EOS % (test code = 1.9 % 713-8) BASO % (test code = 0.3 % 706-2) GRAN MAT x10^3(ANC) 5.12 10*3/uL 1.88-7.09 (test code = 2813841585) IMM GRAN x10^3 (test <0.03 0-0.06 code = 5436895475) LYMPH x10^3 (test code 2.82 10*3/uL 1.32-3.29 = 731-0) MONO x10^3 (test code 0.72 10*3/uL 0.33-0.92 = 742-7) EOS x10^3 (test code = 0.17 10*3/uL 0.03-0.39 711-2) BASO x10^3 (test code 0.03 10*3/uL 0.01-0.07 = 704-7) Lab Interpretation Abnormal (test code = 55742-1) [facility] GLUCOSE (AUTOMATED)2019-12-30 01:52:00 Test Item Value Reference Range Interpretation Comments POCT GLU (test code = 6397981284) 199 mg/dL 70-110 H Lab Interpretation (test code = Abnormal 54557-3) [facility] GLUCOSE (AUTOMATED)2019-12-29 23:34:00 Test Item Value Reference Range Interpretation Comments POCT GLU (test code = 9306144728) 120 mg/dL 70-110 H Lab Interpretation (test code = Abnormal 85834-9) [facility] GLUCOSE (AUTOMATED)2019-12-29 14:02:00 Test Item Value Reference Range Interpretation Comments POCT GLU (test code = 4441305340) 99 mg/dL 70-110 Lab Interpretation (test code = Normal 69686-8) [facility] Metabolic Panel (NA, K, CL, CO2, GLUCOSE, BUN, CREATININE, CA)2019-12-29 11:40:00 Test Item Value Reference Range Interpretation Comments NA (test code = 139 mmol/L 135-145 6181008206) K (test code = 4.2 mmol/L 3.5-5 Slight 8258762161) hemolysis CL (test code = 104 mmol/L 98-108 2085205586) CO2 TOTAL (test code 30 mmol/L 23-31 = 9488273695) AGAP (test code = 2-16 6814994332) BUN (test code = 18 mg/dL 7-23 Slight 2217906558) hemolysis GLUCOSE (test code = 116 mg/dL 70-110 H 1752477016) CREATININE (test code 0.61 mg/dL 0.5-1.04 = 0464417891) CALCIUM (test code = 8.9 mg/dL 8.6-10.6 0872304749) eGFR Calculation mL/min/1.73m2 (Non-) (test code = 0879021009) eGFR Calculation mL/min/1.73m2 () (test code = 2081484716) JOSHUA (test code = JOSHUA) Association of [...] tests). Lab Interpretation Abnormal (test code = 98391-9) [facility] [id number] 11:40:00 Test Item Value Reference Range Interpretation Comments MAGNESIUM (test code = 8412161009) 2.2 mg/dL 1.7-2.4 Lab Interpretation (test code = Normal 01699-0) [facility] with Hep[facility] Drip[facility]2019-12-29 11:21:00 Test Item Value Reference Range Interpretation Comments APTT Patient (test code See_Comment HH [Au tomated message] = 3173-2) The system [employer] generated this result transmitted ref erence range: 26 - 36 Seconds. The reference range was not used to int erpret this result as normal/abnormal . Lab Interpretation (test Abnormal code = 57164-7) [facility]2019-12-29 04:19:00 Test Item Value Reference Range Interpretation Comments POCT GLU (test code = 9779793613) 115 mg/dL 70-110 H Lab Interpretation (test code = Abnormal 79269-1) [facility] Hospital[facility]id [facility] (Total Cholesterol, Triglycerides, HDL) - [id number] 03:03:00 Test Item Value Reference Range Interpretation Comments CHOL (test code = 164 mg/dL 120-200 3707104976) HDL (test code = 61 mg/dL >50 6431265723) HDLC RATIO (test code = See_Comment [Au tomated message] 4937588886) The system [employer] generated this result transmit shikha reference range : <=4.5. The refe rence range was not u sed to interpret th is result as normal/abnormal . TRIG (test code = 63 mg/dL 30-170 3778110877) LDL CHOL (test code = 90 mg/dL See_Comment [Auto mated message] 28556-2) The system [employer] generated this result transmit shikha reference range : <=160. The refe rence range was not u sed to interpret th is result as normal/abnormal . VLDL (test code = 13 mg/dL 5-60 3366164251) Lab Interpretation (test Normal code = 02343-4) [facility] Heparin Drip[facility]2019-12-29 00:36:00 Test Item Value Reference Range Interpretation Comments APTT Patient (test code See_Comment H [Au tomated message] = 3173-2) The system [employer] generated this result transmitted ref erence range: 26 - 36 Seconds. The reference range was not used to int erpret this result as normal/abnormal . Lab Interpretation (test Abnormal code = 32916-7) [facility]TR[facility] [id number] 21:42:00 Test Item Value Reference Range Interpretation Comments TROPONIN I (test 0.081 ng/mL See_Comment H [Automated code = 3326560367) message] The system which generated this result [...] ? Lab Interpretation Abnormal (test code = 34456-1) [facility] HospitalProthrombin Time (PT) / [id number] 12:39:00 Test Item Value Reference Range Interpretation Comments PROTIME PATIENT (test See_Comment [Auto mated message] code = 5964-2) The system [employer] generated this result transmitted ref erence range: 10.1 - 1 2.6 Seconds. The re ference range was not u sed to interpret this result as normal/abnor mal. INR (test code = 6301-6) Nor mal INR <1.1; Warfarin Therap eutic range 2.0 to 3. 0 or 2.5 to 3.5, dep ending upon the indica tions. Lab Interpretation (test Normal code = 15940-5) [facility]TT2020-[facility] 12:39:00 Test Item Value Reference Range Interpretation Comments APTT Patient (test code = See_Comment [ Automated message] 3173-2) The system [employer] generated this result transmitted ref erence range: 26 - 36 Seconds. The re ference range was not u sed to interpret this result as normal/abnor mal. Lab Interpretation (test Normal code = 48556-0) [facility] HospitalTroponin [id number] 11:11:00 Test Item Value Reference Range Interpretation Comments TROPONIN I (test 0.148 ng/mL See_Comment H [Automated code = 6352083978) message] The system which generated this result [...] ? Lab Interpretation Abnormal (test code = 79742-2) [facility] HospitalGlycosylated Hemoglobin (A1C)2019-12-28 10:57:00 Test Item Value Reference Range Interpretation Comments HGB A1C (test code = 5.8 % - 4548-4) JOSHUA (test code = JOSHUA) %A1C (NGSP) Interpretation (ADA)4.8-5.6 ? ? Normal or (Non-Diabetic Range)5.7-6.4 ? ? Increased Risk (Pre-Diabetic)>6.5 ?Diabetes Indicated Lab Interpretation Normal (test code = 98705-0) [facility] HospitalThyroid Stimulating Hormone (TSH)2019-12-28 10:22:00 Test Item Value Reference Range Interpretation Comments TSH (test code = See_Comment Biotin has been 8320236137) reported to cau se a negative bias, interpret resul ts relative to pat ient's use of biotin. [Automated mess age] The system [employer] generated this result transmitted ref erence range: 0.45 - 4 .70 mIU/L. The refe rence range was not u sed to interpret this result as normal/abnor mal. Lab Interpretation (test Normal code = 96037-0) [facility] HospitalN-Terminal [id number] 10:22:00 Test Item Value Reference Range Interpretation Comments NT-proBNP (test code 636 pg/mL See_Comment H [Autom ated = 1554332753) message] The system which generated this result transmitted reference range : <=125. The reference range was not used to interpret this result as normal/abnormal . JOSHUA (test code = JOSHUA) Biotin has been reported to cause a negative bias, interpret results relative to patient's use of biotin. Lab Interpretation Abnormal (test code = 04722-8) [facility] HospitalCT [facility]ST PULMONARY [id number] 05:35:31 No acute pulmonary embolism through the [...] reviewed this study and agree with theabove report.[facility] 1 [id number] 03:07:42 No acute cardiopulmonary abnormality. Preliminary Report [...] reviewed this study and agree with theabove report.[facility] HospitalTROP[facility]IN [id number] 02:26:00 Test Item Value Reference Range Interpretation Comments TROPONIN I (test 0.048 ng/mL See_Comment H [Automated code = 6221722668) message] The system which generated this result [...] ? Lab Interpretation Abnormal (test code = 56612-6) [facility] HospitalCOVID[facility] (ID NOW RAPID TESTING)2019-12-28 02:22:00 Test Item Value Reference Range Interpretation Comments SARS-CoV-2 Rapid ID NOW Not Detected Not Detected (test code = 52156-9) JOSHUA (test code = JOSHUA) ID NOW COVID-19 Assay is an isothermal nucleic acid amplification test intended for the qualitative detection of nucleic acid from SARS-CoV-2 viral RNA in nasopharyngeal (WE[employer]) specimens. It is used under Emergency Use [...] indicated. Lab Interpretation Normal (test code = 67296-4) [facility]. METABOLIC PANEL (36643)2019-12-28 02:16:00 Test Item Value Reference Range Interpretation Comments NA (test code = 137 mmol/L 135-145 0903881553) K (test code = 3.8 mmol/L 3.5-5 4280236061) CL (test code = 101 mmol/L 98-108 2342854516) CO2 TOTAL (test code = 31 mmol/L 23-31 7196384052) AGAP (test code = 2-16 5198944103) BUN (test code = 18 mg/dL 7-23 4122902816) GLUCOSE (test code = 145 mg/dL 70-110 H 1390388800) CREATININE (test code = 0.55 mg/dL 0.5-1.04 3755462922) TOTAL BILI (test code = 0.4 mg/dL 0.1-1.4 8623746083) CALCIUM (test code = 8.8 mg/dL 8.6-10.6 8235483450) T PROTEIN (test code = 6.7 g/dL 6.3-8.2 8326526891) ALBUMIN (test code = 4.1 g/dL 3.5-5 6700050568) ALK PHOS (test code = 72 U/L 34-122 9678326328) ALTv (test code = 40 U/L 5-35 H 1742-6) AST(SGOT) (test code = 46 U/L 13-40 H 4919815824) eGFR Calculation mL/min/1.73m2 (Non-) (test code = 4437127557) eGFR Calculation mL/min/1.73m2 () (test code = 9699618844) JOSHUA (test code = JOSHUA) Association of [...] tests). Lab Interpretation Abnormal (test code = 69244-2) [facility] (NA, K, CL, CO2, GLUCOSE, BUN, CREATININE, CA)2019-12-28 02:16:00 Test Item Value Reference Range Interpretation Comments NA (test code = 137 mmol/L 135-145 0894253541) K (test code = 3.8 mmol/L 3.5-5 9510381400) CL (test code = 101 mmol/L 98-108 2503838009) CO2 TOTAL (test code = 31 mmol/L 23-31 7658398427) AGAP (test code = 2-16 9230326361) BUN (test code = 18 mg/dL 7-23 7533775446) GLUCOSE (test code = 145 mg/dL 70-110 H 1663906344) CREATININE (test code = 0.55 mg/dL 0.5-1.04 4586969485) CALCIUM (test code = 8.8 mg/dL 8.6-10.6 3197093120) eGFR Calculation mL/min/1.73m2 (Non-) (test code = 5371127272) eGFR Calculation mL/min/1.73m2 () (test code = 2806712663) JOSHUA (test code = JOSHUA) Association of [...] tests). Lab Interpretation Abnormal (test code = 77413-4) [facility] WITH [id number] 02:01:00 Test Item Value Reference Range Interpretation Comments WBC (test code = See_Comment [Automated 0810-2) message] The sy stem which generated this result transmitted reference range : 4.30 - 11.10 10*3/?L. The reference range was not used to interpret this result as normal/abnormal . RBC (test code = See_Comment [Automated 559-9) message] The sy stem which generated this [...] RDW-SD (test code = 42.5 fL 39-49.9 35772-1) RDW-CV (test code = 12.2 % 12-15.5 788-0) PLT (test code = See_Comment [Automated 777-3) message] The sy stem which generated this result transmitted reference range : 166 - 358 10*3/ ?L. The reference r ramona was not used to interpret this result as normal/abnormal . MPV (test code = 9.7 fL 9.5-12.9 99411-6) NRBC/100 WBC (test See_Comment [Automat ed code = 6722346778) message] The system which generated this result transmitted reference range : 0.0 - 10.0 /100 WBCs. The refer ence range was not u sed to interpret th is result as normal/abnormal . NRBC x10^3 (test code <0.01 See_Comment [Auto mated = 9067297291) message] The s ystem which generated this result transmitted reference range : 10*3/?L. The reference range was not used to interpret this result as normal/abnormal . GRAN MAT (NEUT) % 52.2 % (test code = 770-8) IMM GRAN % (test code 0.30 % = 3323199004) LYMPH % (test code = 36.0 % 736-9) MONO % (test code = 7.3 % 5905-5) EOS % (test code = 3.7 % 713-8) BASO % (test code = 0.5 % 706-2) GRAN MAT x10^3(ANC) 3.36 10*3/uL 1.88-7.09 (test code = 0691669627) IMM GRAN x10^3 (test <0.03 0-0.06 code = 6311401675) LYMPH x10^3 (test code 2.32 10*3/uL 1.32-3.29 = 731-0) MONO x10^3 (test code 0.47 10*3/uL 0.33-0.92 = 742-7) EOS x10^3 (test code = 0.24 10*3/uL 0.03-0.39 711-2) BASO x10^3 (test code 0.03 10*3/uL 0.01-0.07 = 704-7) Lab Interpretation Abnormal (test code = 64516-8) [facility] 1 [id number] 22:39:59 No acute cardiopulmonary abnormality. Emphysematous changes. [...] reviewed this study and agree with the abovereport.[facility] [id number] 22:28:00 Test Item Value Reference Range Interpretation Comments TROPONIN I (test <0.012 See_Comment [Automated code = 2189833833) message] The system which generated this result [...] ? Lab Interpretation Normal (test code = 80703-0) [facility]N-[facility]MINAL [id number] 22:24:00 Test Item Value Reference Range Interpretation Comments NT-proBNP (test code 675 pg/mL See_Comment H [Autom ated = 5070733071) message] The system which generated this result transmitted reference range : <=125. The reference range was not used to interpret this result as normal/abnormal . JOSHUA (test code = JOSHUA) Biotin has been reported to cause a negative bias, interpret results relative to patient's use of biotin. Lab Interpretation Abnormal (test code = 71505-0) [facility] HospitalProthrombin Time (PT) / [id number] 22:20:00 Test Item Value Reference Range Interpretation [...] tions. Lab Interpretation (test Normal code = 20840-8) [facility] HospitalB[facility] Met[facility] (NA, K, CL, CO2, GLUCOSE, BUN, CREATININE, CA)2019-07-27 22:17:00 Test Item Value Reference Range Interpretation Comments NA (test code = 138 mmol/L 135-145 7672025289) K (test code = 4.4 mmol/L 3.5-5 9647553186) CL (test code = 101 mmol/L 98-108 3589071141) CO2 TOTAL (test code = 28 mmol/L 23-31 1209926169) AGAP (test code = 2-16 2281522682) BUN (test code = 16 mg/dL 7-23 0964256842) GLUCOSE (test code = 88 mg/dL 70-110 0119617697) CREATININE (test code 0.55 mg/dL 0.5-1.04 = 4669821741) CALCIUM (test code = 10.1 mg/dL 8.6-10.6 1247761785) eGFR Calculation mL/min/1.73m2 (Non-) (test code = 0525539349) eGFR Calculation mL/min/1.73m2 () (test code = 7048534614) JOSHUA (test code = JOSHUA) Association of [...] or urine or abnormalities in imaging tests). [facility] HospitalHep[facility] (ALB, T.PRO, BILI T, BU/BC, ALT, AST, ALK PHOS)2019-07-27 22:17:00 Test Item Value Reference Range Interpretation Comments TOTAL BILI (test code = 1532049706) 0.7 mg/dL 0.1-1.1 BILI UNCON (test code = 7134446098) 0.8 mg/dL 0.1-1.1 BILI CONJ (test code = 1362279219) 0.0 mg/dL 0-0.3 T PROTEIN (test code = 6529075780) 7.7 g/dL 6.3-8.2 ALBUMIN (test code = 9864525881) 4.8 g/dL 3.5-5 ALK PHOS (test code = 9022352479) 49 U/L 34-122 ALTv (test code = 1742-6) 35 U/L 5-35 AST(SGOT) (test code = 0883894415) 42 U/L 13-40 H Lab Interpretation (test code = Abnormal 29002-9) [facility] (ID NOW RAPID TESTING)2019-07-27 22:16:00 Test Item Value Reference Range Interpretation Comments SARS-CoV-2 Rapid ID NOW Not Detected Not Detected (test code = 36734-2) JOSHUA (test code = JOSHUA) ID NOW COVID-19 Assay is an isothermal nucleic acid amplification test intended for the qualitative detection of nucleic acid from SARS-CoV-2 viral RNA in nasopharyngeal ([employer]) specimens. It is used under Emergency Use [...] indicated. Lab Interpretation Normal (test code = 21990-2) [facility] WITH [id number] 21:58:00 Test Item Value Reference Range Interpretation [...] RDW-SD (test code = 41.4 fL 39-49.9 04228-0) RDW-CV (test code = 12.2 % 12-15.5 788-0) PLT (test code = See_Comment [Automated 777-3) message] The sy stem which generated this result transmitted reference range : 166 - 358 10*3/ ?L. The reference r ramona was not used to interpret this result as normal/abnormal . MPV (test code = 9.7 fL 9.5-12.9 63255-3) NRBC/100 WBC (test See_Comment [Automat ed code = 0179440192) message] The system which generated this result transmitted reference range : 0.0 - 10.0 /100 WBCs. The refer ence range was not u sed to interpret th is result as normal/abnormal . NRBC x10^3 (test code <0.01 See_Comment [Auto mated = 6632626783) message] The s ystem which generated this result transmitted reference range : 10*3/?L. The reference range was not used to interpret this result as normal/abnormal . GRAN MAT (NEUT) % 72.2 % (test code = 770-8) IMM GRAN % (test code 0.40 % = 0048631046) LYMPH % (test code = 19.5 % 736-9) MONO % (test code = 5.2 % 5905-5) EOS % (test code = 2.1 % 713-8) BASO % (test code = 0.6 % 706-2) GRAN MAT x10^3(ANC) 7.15 10*3/uL 1.88-7.09 H (test code = 6592153993) IMM GRAN x10^3 (test 0.04 10*3/uL 0-0.06 code = 1932554571) LYMPH x10^3 (test code 1.93 10*3/uL 1.32-3.29 = 731-0) MONO x10^3 (test code 0.52 10*3/uL 0.33-0.92 = 742-7) EOS x10^3 (test code = 0.21 10*3/uL 0.03-0.39 711-2) BASO x10^3 (test code 0.06 10*3/uL 0.01-0.07 = 704-7) Lab Interpretation Abnormal (test code = 59723-2) [facility]"
[2021-04-16] MEDS ORDERED: levoFLOXacin 750 MG TAB ONE (22:59)
[2021-04-16] MEDS ORDERED: MAGNESIUM SULFATE 1 gm IVPB 1 GM/100 ML BAG IV ONE (22:59)
[2021-04-16 23:10] LABS: Absolute Lymphocytes (CBC) 2.6 K/uL (0.7-4.9); Hematocrit 41.2 % (36.0-45.0); MPV 7.8 fL (7.6-11.3); Protime INR 1.03; RBC Red Blood Cell Count 4.57 M/uL (3.86-4.86)
[2021-04-16 23:26] LABS: ALT/SGPT 49 U/L (12-78); AST/SGOT 53 U/L (15-37); Albumin 3.9 g/dL (3.4-5.0); Alkaline Phosphatase 77 U/L (45-117); BUN Blood Urea Nitrogen 18 mg/dL (7-18); Bicarbonate 28 mmol/L (21-32); Bilirubin Total 0.3 mg/dL (0.2-1.0); Glucose Level 170 mg/dL (74-106); Magnesium 2.2 mg/dL (1.8-2.4); NT PRO-BNP 844 pg/mL (<125); Potassium 3.2 mmol/L (3.5-5.1); Protein, Total 7.4 g/dL (6.4-8.2); Sodium Level 138 mmol/L (136-145)
[2021-04-16 23:41] LABS: Bilirubin Direct < 0.1 mg/dL (0-0.2)
[2021-04-16 23:43] LABS: SARS-COV-2 RT PCR NEGATIVE (NEGATIVE)
[2021-04-16] MEDS ORDERED: NA CHLORIDE 0.9% 2,000 ML ONE (23:59)
[2021-04-17] MEDS ORDERED: POTASSIUM 25 MEQ EFFERV TAB ONE (00:22)
--- NOTE | 2021-04-17 00:33 | EDPHYS ---
Physician Documentation [facility] Name: Dalia Reyes Age: 65 yrs Sex: Female : 1955 Arrival Date: 04/16/2021 Time: 22:31 Bed 3 Private MD: ED Physician Wilfred Navarrete HPI: 04/16 22:45 This 65 yrs old Female presents to ER via EMS with complaints of Shortness Of Breath. cp 22:45 The patient has shortness of breath at rest. cp 22:45 Onset: The symptoms/episode began/occurred suddenly, today. cp 22:45 Duration: The symptoms are continuous, and are steadily getting worse. Associated signs cp and symptoms: Pertinent negatives: chest pain, productive cough, diaphoresis, dizziness, fever. Severity of symptoms: in the emergency department the symptoms have improved mildly. Historical: - Allergies: 22:45 Benadryl; ll3 22:45 Valium; ll3 22:45 Lorazepam; ll3 - PMHx: 22:45 Chronic obstructive lung disease; Hypercholesterolemia; Hypertensive disorder; ll3 Emphysema; Diabetes mellitus; - PSHx: 22:45 section; Heart stents; ll3 - Immunization history:: Client reports having NOT received the Covid vaccine. - Social history:: Smoking status: Patient reports the use of cigarette tobacco products, smokes one pack cigarettes per day. ROS: 22:50 Constitutional: Negative for body aches, chills, fever, poor PO intake. cp 22:50 Eyes: Negative for injury, pain, redness, and discharge. cp 22:50 ENT: Negative for drainage from ear(s), ear pain, sore throat, difficulty swallowing, difficulty handling secretions. 22:50 Cardiovascular: Negative for chest pain, edema, palpitations. 22:50 Respiratory: Positive for shortness of breath, at rest. 22:50 Abdomen/GI: Negative for abdominal pain, nausea, vomiting, and diarrhea. 22:50 Neuro: Negative for altered mental status, headache, syncope, weakness. 22:50 All other systems are negative. Exam: 22:55 Constitutional: The patient appears in no acute distress, alert, awake, cp non-diaphoretic, non-toxic, well developed, well nourished, in obvious distress, moderately distressed. 22:55 Head/Face: Normocephalic, atraumatic. cp 22:55 Eyes: Periorbital structures: appear normal, Pupils: equal, round, and reactive to light and accomodation, Extraocular movements: intact throughout, Conjunctiva: normal, no exudate, no injection, Sclera: no appreciated abnormality, Lids and lashes: appear normal, bilaterally. 22:55 ENT: External ear(s): are unremarkable, Nose: is normal, Mouth: Lips: moist, Oral mucosa: pink and intact, moist, Posterior pharynx: Airway: no evidence of obstruction, patent, Tonsils: are normal in appearance, swelling, is not appreciated, erythema, is not appreciated, exudate, is not appreciated. 22:55 Neck: ROM/movement: is normal, is supple, without pain, no range of motions limitations, no meningismus. 22:55 Chest/axilla: Inspection: normal. 22:55 Cardiovascular: Rate: normal, Rhythm: regular, Edema: is not appreciated, JVD: is not appreciated. 22:55 Respiratory: moderate respiratory distress is noted, Respirations: labored breathing, that is moderate, shallow respirations, that is moderate, Breath sounds: bronchial sounds, that are mild, are heard diffusely, decreased breath sounds, that are moderate, stridor, is not appreciated. 22:55 Abdomen/GI: Inspection: abdomen appears normal, Palpation: abdomen is soft and non-tender, in all quadrants. 22:55 Neuro: Orientation: to person, place \\T\\ time. Mentation: is normal, Cerebellar function: is grossly normal, Motor: moves all fours, strength is normal, Sensation: is normal. 04/17 00:05 ECG was reviewed by the Attending Physician. cp Vital Signs: 04/16 22:37 BP 109 / 72; Pulse 98; Resp 19; Temp 97.2(TE); Pulse Ox 95% on Nebulizer Mask; Weight ll3 57.61 kg (R); Height 5 ft. 6 in. (167.64 cm) (R); Pain 0/10; 04/17 00:00 BP 99 / 59; Pulse 107; Resp 20; Pulse Ox 94% on 3 lpm NC; vc1 01:15 BP 107 / 67; Pulse 96; Resp 20; Pulse Ox 98% ; vc1 04/16 22:37 Body Mass Index 20.50 (57.61 kg, 167.64 cm) ll3 MDM: 04/16 22:58 Patient medically screened. cp 23:00 Differential diagnosis: Bronchitis CHF exacerbation, Chronic Obstructive Pulmonary cp Disease Myocardial Infarction pneumonia, pulmonary edema, Pulmonary Embolism Sepsis Unstable Angina. 04/17 00:31 Data reviewed: vital signs, nurses notes, lab test result(s), EKG, radiologic studies, cp plain films. 00:31 Test interpretation: by ED physician or midlevel provider: ECG, plain radiologic cp studies. Counseling: I had a detailed discussion with the patient and/or guardian regarding: the historical points, exam findings, and any diagnostic results supporting the discharge/admit diagnosis, to return to the emergency department if symptoms worsen or persist or if there are any questions or concerns that arise at home. Response to treatment: the patient's symptoms have markedly improved after treatment, VSS. Patient reports she is currently on hospice for COPD and refuses admission at this time. Patient requests discharge home into care of hospice. 04/16 22:36 Order name: Basic Metabolic Panel cp 04/16 22:36 Order name: CBC with Diff; Complete Time: 23:54 cp 04/17 00:19 Interpretation: Reviewed. 04/16 22:36 Order name: LFT's; Complete Time: 23:54 cp 04/17 00:18 Interpretation: Normal except: AST 53. cp 04/16 22:36 Order name: Magnesium; Complete Time: 23:54 cp 04/16 22:36 Order name: NT PRO-BNP; Complete Time: 23:54 cp 04/17 00:18 Interpretation: Abnormal: NT PRO-BNP 844. cp 04/16 22:36 Order name: PT-INR; Complete Time: 23:54 cp 04/16 22:36 Order name: Troponin HS; Complete Time: 23:54 cp 04/16 22:36 Order name: Lactate; Complete Time: 23:54 cp 04/17 00:18 Interpretation: Abnormal: LAC 4.9. cp 04/16 22:36 Order name: Procalcitonin cp 04/16 22:36 Order name: Blood Culture Adult (2) cp 04/16 22:37 Order name: Basic Metabolic Panel; Complete Time: 23:54 EDMS 04/17 00:18 Interpretation: Normal except: K 3.2; GLUC 170; GFR 62. cp 04/16 22:39 Order name: COVID-19/FLU A+B (Document "Date of Onset" if Symptomatic); Complete Time: cp 23:54 04/16 22:39 Order name: Urine Microscopic Only cp 04/17 01:04 Order name: Urine Culture EDMS 04/16 22:36 Order name: XRAY Chest (1 view) 04/16 22:36 Order name: EKG; Complete Time: 22:37 cp 04/16 22:36 Order name: Cardiac monitoring; Complete Time: 22:44 cp 04/16 22:36 Order name: EKG - Nurse/Tech; Complete Time: 22:40 cp 04/16 22:36 Order name: IV Saline Lock; Complete Time: 22:44 cp 04/16 22:36 Order name: Labs collected and sent; Complete Time: 22:44 cp 04/16 22:36 Order name: O2 Per Protocol; Complete Time: 22:44 cp 04/16 22:36 Order name: O2 Sat Monitoring; Complete Time: 22:44 cp 04/16 22:39 Order name: Urine Dipstick-Ancillary (obtain specimen); Complete Time: 00:50 cp EC:05 Rate is 104 beats/min. Rhythm is regular. [place] interval is normal. QRS interval is cp normal. QT interval is normal. T waves are Inverted in leads aVL, aVR. Interpreted by me. Reviewed by me. Administered Medications: 04/16 23:06 Not Given (Patient Refused): Xopenex (levalbuterol) (3) 1.25 mg Inhalation once ll3 23:06 Not Given (Patient Refused): AtroVENT (ipratropium) Aerosol 0.5 mg Inhalation once ll3 23:20 Drug: Magnesium Sulfate 1 grams Route: IVPB; Infused Over: 1 hrs; Site: right forearm; ss7 03 00:20 Follow up: IV Status: Completed infusion; IV Intake: 100ml vc1 04/16 23:20 Drug: LevaQUIN (levofloxacin) 750 mg Route: PO; vc1 03 00:00 Follow up: Response: No adverse reaction vc1 00:04 Drug: NS 0.9% (30 ml/kg) 30 ml/kg Route: IV; Rate: bolus; Site: right hand; ll3 01:31 Follow up: IV Status: Completed infusion; IV Intake: 700ml vc1 00:42 Drug: Potassium Effervescent Tablet 50 mEq Route: PO; vc1 00:49 Follow up: Response: No adverse reaction vc1 Disposition: 02:39 Co-signature as Attending Physician, Wiflred Navarrete MD. [email or web address] Disposition Summary: 04/17/21 00:32 Discharge Ordered Location: Home w/ Home Health cp Problem: new cp Symptoms: have improved cp Condition: Stable cp Diagnosis - COPD/ Chronic obstructive pulmonary disease with (acute) exacerbation cp - Acute and chronic respiratory failure cp Followup: cp - With: Private Physician - When: Today - Reason: Recheck today's complaints Discharge Instructions: - Discharge Summary Sheet cp - Chronic Obstructive Pulmonary Disease Exacerbation cp Forms: - Medication Reconciliation Form cp - Thank You Letter cp - Antibiotic Education cp - Prescription Opioid Use cp Prescriptions: - levofloxacin 750 mg Oral Tablet - take 1 tablet by ORAL route once daily for 6 days; 6 tablet; Refills: 0, cp Product Selection Permitted Signatures: Dispatcher [employer] EDMS Iván Stuart PA PA cp Wilfred Navarrete MD MD 7 Minesh Sanchez RN RN ll3 Rama Tesfaye RN RN vc1 Lorraine Arciniega RN RN ss7 Corrections: (The following items were deleted from the chart) 04/16 22:49 22:45 PSHx: Stented artery; ll3 ll3
--- NOTE | 2021-04-17 00:33 | ER ---
Nurse's Notes [facility] Name: Dalia Reyes Age: 65 yrs Sex: Female : 1955 Arrival Date: 04/16/2021 Time: 22:31 Bed 3 Private MD: Diagnosis: COPD/ Chronic obstructive pulmonary disease with (acute) exacerbation;Acute and chronic respiratory failure Presentation: 04/16 22:37 Chief complaint: EMS states: Toned out for severe respiratory distress, PT states she ll3 was watching T.V. and all of a sudden she couldn't breath, states tried home nebulizer treatment and it didn't work, c/o cough and sore throat, denies any pain at this time. Coronavirus screen: Vaccine status: Patient reports being unvaccinated. cough unrelated to allergies, shortness of breath, sore throat. Ebola Screen: No symptoms or risks identified at this time. Initial Sepsis Screen: Does the patient meet any 2 criteria? Systolic BP < 90 mmHg. HR > 90 bpm. Yes Does the patient have a suspected source of infection? No. Patient's initial sepsis screen is negative. Risk Assessment: Do you want to hurt yourself or someone else? Patient reports no desire to harm self or others. Onset of symptoms was April 16, 2021. Care prior to arrival: Medication(s) given: Albuterol Neb x 3, Atrovent Neb x 1, Solu-medrol 125 mg. 22:37 Method Of Arrival: EMS: [facility] 22:37 Acuity: CONSTANTINO 3 ll3 Triage Assessment: 22:45 General: Appears in no apparent distress. uncomfortable, Behavior is calm, cooperative. ll3 Pain: Denies pain. EENT: Reports Sore throat. Neuro: Level of Consciousness is awake, alert, obeys commands, Oriented to person, place, time, situation. Cardiovascular: Patient's skin is warm and dry. Respiratory: Reports shortness of breath cough that is air hunger Respiratory effort is labored, Respiratory pattern is tachypnea Onset: The symptoms/episode began/occurred Suddenly tonight. Respiratory: the patient has moderate shortness of breath. Derm: Skin is pink, warm \\T\\ dry. Historical: - Allergies: 22:45 Benadryl; ll3 22:45 Valium; ll3 22:45 Lorazepam; ll3 - PMHx: 22:45 Chronic obstructive lung disease; Hypercholesterolemia; Hypertensive disorder; ll3 Emphysema; Diabetes mellitus; - PSHx: 22:45 section; Heart stents; ll3 - Immunization history:: Client reports having NOT received the Covid vaccine. - Social history:: Smoking status: Patient reports the use of cigarette tobacco products, smokes one pack cigarettes per day. Screenin:00 Abuse screen: Denies threats or abuse. Nutritional screening: No deficits noted. vc1 Tuberculosis screening: No symptoms or risk factors identified. Fall Risk None identified. Assessment: 22:51 General: See triage assessment.. Cardiovascular: Rhythm is sinus tachycardia. ll3 Respiratory: Airway is patent Respiratory effort is labored, Respiratory pattern is tachypnea Breath sounds with crackles bilaterally. Breath sounds with wheezes bilaterally. 23:51 General: Alfa in lab called with a lactate value of 4.9. ll3 04/17 01:30 Reassessment: Patient and/or family updated on plan of care and expected duration. Pain vc1 level reassessed. Patient is alert, oriented x 3, equal unlabored respirations, skin warm/dry/pink. Patient denies pain at this time. Patient states feeling better. Patient states symptoms have improved. Respiratory: Airway is patent Respiratory effort is even, unlabored, Respiratory pattern is regular, symmetrical. Vital Signs: 04/16 22:37 BP 109 / 72; Pulse 98; Resp 19; Temp 97.2(TE); Pulse Ox 95% on Nebulizer Mask; Weight ll3 57.61 kg (R); Height 5 ft. 6 in. (167.64 cm) (R); Pain 0/10; 04/17 00:00 BP 99 / 59; Pulse 107; Resp 20; Pulse Ox 94% on 3 lpm NC; vc1 01:15 BP 107 / 67; Pulse 96; Resp 20; Pulse Ox 98% ; vc1 04/16 22:37 Body Mass Index 20.50 (57.61 kg, 167.64 cm) ll3 ED Course: 04/16 22:31 Patient arrived in ED. [id number] 22:35 Iván Stuart PA is PHCP. cp 22:35 Wilfred Navarrete MD is Attending Physician. cp 22:45 Triage completed. ll3 22:45 Arm band placed on right wrist. EKG completed in triage. Results shown to MD. ll3 22:50 Inserted saline lock: 20 gauge in right forearm, using aseptic technique. ss7 23:00 Patient has correct armband on for positive identification. Placed in gown. Bed in low vc1 position. Call light in reach. desk monitor on. Pulse ox on. NIBP on. 23:10 Accessed Blood collected. BUTTERFLY TO RIGHT AC FOR 2ND SET OF BLOOD CULTURES; PT ss7 TOLERATED WELL. 23:13 Blood Culture Adult (2) Sent. ss7 23:13 Procalcitonin Sent. ss7 23:13 Lactate Sent. ss7 23:13 Basic Metabolic Panel Sent. ss7 23:14 COVID-19/FLU A+B (Document "Date of Onset" if Symptomatic) Sent. ss7 23:14 Basic Metabolic Panel Sent. ss7 23:14 LFT's Sent. ss7 23:14 Magnesium Sent. ss7 23:14 NT PRO-BNP Sent. ss7 23:14 Troponin HS Sent. ss7 23:21 XRAY Chest (1 view) In Process Unspecified. EDMS 23:26 Noise minimized. Lights dimmed. request for ice chips approved and given to patient;. ss7 23:32 Rama Tesfaye, RN is Primary Nurse. vc1 04/17 01:30 No provider procedures requiring assistance completed. IV discontinued, intact, vc1 bleeding controlled, No redness/swelling at site. Pressure dressing applied. Administered Medications: 04/16 23:06 Not Given (Patient Refused): Xopenex (levalbuterol) (3) 1.25 mg Inhalation once ll3 23:06 Not Given (Patient Refused): AtroVENT (ipratropium) Aerosol 0.5 mg Inhalation once ll3 23:20 Drug: Magnesium Sulfate 1 grams Route: IVPB; Infused Over: 1 hrs; Site: right forearm; 7 04/17 00:20 Follow up: IV Status: Completed infusion; IV Intake: 100ml vc1 04/16 23:20 Drug: LevaQUIN (levofloxacin) 750 mg Route: PO; vc1 04/17 00:00 Follow up: Response: No adverse reaction vc1 00:04 Drug: NS 0.9% (30 ml/kg) 30 ml/kg Route: IV; Rate: bolus; Site: right hand; ll3 01:31 Follow up: IV Status: Completed infusion; IV Intake: 700ml vc1 00:42 Drug: Potassium Effervescent Tablet 50 mEq Route: PO; vc1 00:49 Follow up: Response: No adverse reaction vc1 Intake: 00:20 IV: 100ml; Total: 100ml. vc1 01:31 IV: 700ml; Total: 800ml. vc1 Outcome: 00:32 Discharge ordered by MD. cp 01:32 Discharged to home via wheelchair, with family. vc1 01:32 Condition: good 01:32 Discharge instructions given to patient, family, Instructed on discharge instructions, follow up and referral plans. medication usage, Demonstrated understanding of instructions, follow-up care, medications, Prescriptions given X 1. 01:35 Patient left the ED. vc1 Signatures: Dispatcher [employer] EDMS Iván Stuart PA PA cp Jeffries, Jennifer jj6 Minesh Sanchez RN RN ll3 Rama Tesfaye RN RN vc1 Lorraine Arciniega RN RN ss7 Corrections: (The following items were deleted from the chart) 04/16 22:49 22:45 PSHx: Stented artery; ll3 ll3 22:56 22:51 Cardiovascular: Rhythm is sinus rhythm ll3 ll3
[2021-04-17 01:03] LABS: Urine Bacteria 20-50 /HPF (<20)
[2021-04-17 01:42] VITALS: TEMP 97.2
[2021-04-17 01:44] VITALS: BP 107/67; O2SAT 98
--- NOTE | 2021-04-17 08:41 | RAD REPORT ---
EXAM DESCRIPTION: RAD - Chest Single View - 04/16/2021 11:21 pm CLINICAL HISTORY: SOB Chest pain. COMPARISON: Chest Single View dated 02/18/2021; Chest Single View dated 12/09/2020; Chest Single View dated 12/06/2020; Chest Single View dated 10/22/2020 FINDINGS: Portable technique limits examination quality. The lungs are moderately emphysematous but clear. The heart is normal in size. No displaced fractures . IMPRESSION: Moderate COPD.
== END 2021-04-17 01:35 | disposition home health service (06) ==
LOC: ER 22:29
DX: J44.1 Chronic obstructive pulmonary disease with (acute) exacerbation (principal); J96.20 Acute and chronic respiratory failure, unspecified whether with hypoxia or hypercapnia; F17.210 Nicotine dependence, cigarettes, uncomplicated; I10 Essential (primary) hypertension; Z95.818 Presence of other cardiac implants and grafts; Z88.5 Allergy status to narcotic agent; Z88.8 Allergy status to other drugs, medicaments and biological substances
CPT/HCPCS: 0240U; 36415; 71045; 80048; 80076; 81015; 83605; 83735; 83880; 84145; 84484; 85025; 85610; 87040; 87077; 87086; 87088; 87186; 87205; 93005; 99285; J3475; J7030

== ENCOUNTER 2021-04-19 14:22 | Inpatient (IN) | payer OTHER ==
--- OUTSIDE RECORDS SUMMARY | 2021-04-19 14:28 | XMS REPORT | Continuity of Care Document ---
:1955 Author Organization [facility] t Address [address] [place] [address] Care Team Providers Name Role Phone ROSITA Lyon [facility] Primary Care Physic porsha Unavailable Doctor Unassigned, Name Attending Clinician Unavailable Filippo Attending Clinician Luiz FUNEZ JR Attending Clinician Unavailable Clifford Mike MD Attending Clinician Meghan Monae MD Attending Clinician [phone] Artie Echeverria Attending Clinician Clifford MIKE Attending [...] ity of syndrome) syndrome[place] [address] [place] [address] SOB SOB Disease Active 2019-02 Univers (shortness (shortness 1-19 it y of of breath) [place] breath[place] [address] [place] [address] No known No known Disease Unive rs active active ity of problems problems [facility] Allergies, Adverse Reactions, Alerts Allergy Allergy Status Severity Reaction(s) Onset Inactive Treating Comm ents Source Name Type Date Date Clinician DIPHENHY DRUG Active Anxiety 2019-0 Univers DRAMINE INGREDI 6-18 ity of 00:00: [address] Diphenhy Propensi Active Anxiety 2020-0 Unive rs dramine ty to 618 ity of adverse 00:00: [place] reaction 00 Medical s Branch NO KNOWN Drug Active Univers ALLERGIE Class ity of S [place] Medical [place] Social History Social Habit Start Date Stop Date Quantity Comments Source History of tobacco Cigarette Smoker University of use [facility] [place] [facility] Exposure to Not sure [facility] SARS-CoV-2 (event) [facility] Cigarettes smoked 2019-12-28 2019-12-28 Univers ity of current (pack per 00:00:00 00:00:00 [facility] [place] edical day) - Reported Branch Cigarette 2019-12-28 2019-12-28 University of pack-years 00:00:00 00:00:00 [facility] Tobacco use and 2019-12-28 2019-12-28 Never used Universit y of exposure 00:00:00 00:00:00 [facility] Branch Alcohol intake 2019-12-28 2019-12-28 Lifetime University of 00:00:00 00:00:00 non-drinker [place] [facility] (finding) Branch History SDOH 2019-12-28 2019-12-28 1 University o f Alcohol Frequency 00:00:00 00:00:00 [facility] Branch History SDOH 2019-12-28 2019-12-28 99 University o f Alcohol Std Drinks 00:00:00 00:00:00 [facility] Branch History SDOH 2019-12-28 2019-12-28 1 University o f Alcohol Binge 00:00:00 00:00:00 [facility] al Branch Smoking Status Start Date Stop Date Source Current every day smoker 2019-12-28 00:00:00 Uni versity of [facility] Unknown if ever smoked [facility] y [facility] Medications Ordered Filled Start Stop Current Ordering Indication Dosage Frequency Signature Comments Components Source Medication Medication Date Date Medication? Clinician (SIG) Name Name metFORMIN 2019-02 Yes 500mg Take 500 Uni vers 500 mg 1-21 mg by ity of tablet 20:14: mouth 2 [place] (two) Medical times Branch daily with meals. traZODone 2019-02 Yes 150mg Take 150 Uni vers 100 mg 1-21 mg by ity of tablet 20:14: mouth at [place] bedtime. Medical Branch busPIRone 2019-02 Yes 7.5mg [...] Puff 2 ity of 44 20:14: (two) [facility]/actuati 09 times Medical on inhaler daily. Branch albuterol 2019-02 Yes 2{puff} Inhale 2 U nivers (PROVENTIL 1-21 Puffs ity of HFA) 90 20:14: every 6 [place] mcg/actuati (six) Medical on inhaler hours as Branc h needed for Wheezing or Shortness of Breath. atorvastati 2019-02 Yes 80mg Take 80 mg Univers n (LIPITOR) 1-21 by mouth ity of 80 mg 20:14: at [place] [address] bedtime. Medical Branch mupirocin 2 2019-02 Yes Apply to U nivers % ointment 1-21 area(s) 2 ity of 20:14: (two) [place] [address] times Medical daily. Branch metoprolol 2019-02 Yes [...] by ity of tablet 20:14: mouth at [place] [address] bedtime. Medical Branch busPIRone 2019-02 Yes 7.5mg Take 7.5 Uni vers 7.5 mg 1-21 mg by ity of tablet 20:14: mouth 2 [place] (two) Medical times Branch daily. FLUoxetine 2019-02 [...] Puff 2 ity of 44 20:14: (two) [place] mcg/actuati 09 times Medical on inhaler daily. Branch albuterol 2019-02 Yes 2{puff} Inhale 2 U nivers (PROVENTIL 1-21 Puffs ity of HFA) 90 20:14: every 6 [place] mcg/actuati (six) Medical on inhaler hours as Branc h needed for Wheezing or Shortness of Breath. atorvastati 2019-02 Yes 80mg Take 80 mg Univers n (LIPITOR) 1-21 by mouth ity of 80 mg 20:14: at [place] [address] bedtime. Medical Branch mupirocin 2 2019-02 Yes Apply to U nivers % ointment 1-21 area(s) 2 ity of 20:14: (two) [place] [address] times Medical daily. Branch metoprolol 2019-02 Yes [...] by ity of tablet 20:14: mouth at [place] [address] bedtime. Medical Branch busPIRone 2019-02 Yes 7.5mg [...] Until Discontinu ed, Routine clopidogreL 2019-02 Yes [id number] 75mg Take 1 Univers 75 mg 1-21 tablet by ity of tablet 00:00: mouth [place] 00 daily. Medical Branch aspirin 81 2019-02 Yes [id number] 81mg Take 1 Univers mg chewable 1-21 tablet by ity of tablet 00:00: mouth [place] 00 daily. Medical Branch predniSONE 2019-02 Yes [id number] 40mg Take 2 U nivers 20 mg 1-21 tablets by ity of tablet 00:00: mouth [place] 00 daily. Medical Branch clopidogreL 2019-02 Yes [id number] 75mg Take 1 Univers 75 mg 1-21 tablet by ity of tablet 00:00: mouth [place] 00 daily. Medical Branch aspirin 81 2019-02 Yes [id number] 81mg Take 1 Univers mg chewable 1-21 tablet by ity of tablet 00:00: mouth [place] 00 daily. Medical Branch predniSONE 2019-02 Yes [id number] 40mg Take 2 U nivers 20 mg 1-21 tablets by ity of tablet 00:00: mouth 00 daily. Medical Branch aspirin 81 2019- Yes [id number] 81mg Take 1 Univers mg chewable 1-21 tablet by ity of tablet 00:00: mouth 00 daily. Medical Branch clopidogreL 2019-02- No 75mg Take 75 mg Univers 75 mg 02-27 by mouth ity of tablet 22:51: 00:00 daily. [place] 35 :00 Medical Branch clopidogreL 2019-02- No Oral, Univ ers (PLAVIX) 02-27 TITRATE - ity o f tablet 21:25: 21:25 FOR [place] 13 :13 PROCEDURE Medical USE, 1 Branch dose, Starting Wed12/29/19 at 1525, Until Wed12/29/19 at 1525, Routine ticagrelor 2019-02- No Oral, Unive rs (BRILINTA) 02-27 TITRATE - ity of tablet 20:57: 20:57 FOR [place] 39 :39 PROCEDURE Medical USE, 1 Branch [...] First dose [place] mg 00 on [facility] Medical 12/28/19 Branch at 2000, Until Discontinu ed, Routine predniSONE 2019-02 Yes [id number] 40mg Take 2 U nivers 20 mg 1-20 tablets by ity of tablet 00:00: mouth [place] 00 daily. Medical Branch clopidogreL 2019-02 Yes [id number] 75mg Take 1 Univers 75 mg 1-20 tablet by ity of tablet 00:00: mouth [place] 00 daily. Medical Branch predniSONE 2019-02 2020- No [id number] 40mg Take 2 Univers 20 mg 1-20 11-20 tablets by ity of tablet 00:00: 00:00 mouth [place] 00 :00 daily. Medical Branch predniSONE 2019-02 2020- No [id number] 40mg Take 2 Univers 20 mg 02-27 tablets by ity of tablet 00:00: 00:00 mouth [place] 00 :00 daily for Medical 4 days. Branch atorvastati 2019-02- No 40mg 40 mg, Uni vers n (LIPITOR) 02-26 Oral, QPM, i ty of tablet 40 23:00: 02:01 First dose [place] mg 00 :46 on [facility] Medical 12/28/19 Branch at 1700, Until Discontinu [...] 12/28/19 Bran ch mL at 1245, Routine
member of congress approving Restricted medication : DEJAN GONSALEZ Saline 2019-02- No 6mL 6 mL, Univers Bubble 02-26 Injection, ity of Study 17:33: 22:27 SEE-INSTRU [place] 16 :16 CTIONS, 2 Medical doses, Branch Starting [facility] 12/28/19 at 1133, Until Wed12/29/19 at 1627, Routine Saline 2019-02 Yes 6mL 6 mL, Univers Bubble 02-26 Injection, ity of Study 17:33: SEE-INSTRU [place] 14 CTIONS, 2 Medical doses, Branch Starting [facility] 12/28/19 at 1133, Until Discontinu ed, Routine clopidogreL 2019-02 Yes 75mg 75 mg, Univ ers (PLAVIX) 02-26 Oral, ity of tablet 75 15:00: DAILY, [place] mg 00 First dose Medical on [facility] Branch 12/28/19 at 0900, Until Discontinu ed, Routine
member of congress approving Restricted medication : LEXY MONAE aspirin [...] First dose [place] half tablet 00 on [facility] Medica l 12.5 mg 12/28/19 Branch at 0800, Until Discontinu ed, Routine heparin 2019-02 No 12U/kg/ 12 Univer s 25,000 02-26 h Units/kg/h ity of Units/250 12:55: 22:27 r ?58.9 kg [place] mL 58 :16 (7.068 Medical (Premixed mL/hr, Branch Bag) in rounded to 0.45 % NS 7.07 mL/hr), IV Infusion, TITRATE, Parameters in Admin. Instr., Starting [facility] 12/28/19 at 0655
CA UTION - If LMWH given in ER, AVOID bolus and start next dose/drip 12 hrs after ER dosage.&nb sp; M ust program rate using programmab le infusion pump.&nbsp ; Maryana ck with the ordering provider first prior to any administra tion should the patient be on existing/a dditional anticoagul ant therapy. Rang e, Dosing and Testing: &nbs p;FOR [place], [facility], AND [facility] ONLY &nbs p; - [...] Push, Branc h Units ONCE, 1 dose, [facility] 12/28/19 at 0600, Routine albuterol 2019-02 Yes 2.5mg 2.5 mg, Univ ers (PROVENTIL) 02-26 Inhalation it y of 2.5 mg /3 10:00: , Q4H, [place] mL (0.083 00 First dose Medi piedad %) on [facility] Branch nebulizer 12/28/19 solution at 0400, 2.5 mg Until Discontinu ed, Routine ipratropium 2019-02 Yes .5mg 0.5 mg, Uni vers (ATROVENT) 02-26 Inhalation ity of 0.02 % 10:00: , Q4H, [place] nebulizer 00 First dose Medi piedad solution on [facility] Branch 0.5 mg 12/28/19 at 0400, Until [...] 02-26 Oral, ity of (TYLENOL) 08:36: Q6HPRN, [place] tablet 650 38 Starting Medic al mg [facility] Branch 12/28/19 at 0236, Until Discontinu ed, Routine, Pain (scale 1-3) nicotine 2019-02 Yes 1{patch 1 Patch, Un destiny (NICODERM) 02-26 } Topical, ity o f 21 mg/24 hr 06:15: Administer [place] patch 1 00 over 24 Medical Patch [...] ty of succ 02:45: 01:47 ONCE, 1 [place] (SOLU-MEDRO 00 :00 dose, Wed Med ical L (PF)) 12/27/19 Branch injection at 2045, 40 mg STAT metoprolol 2019-02 2020- No [id number] 12.5mg Take 0.5 Univers tartrate 25 02-26 tablets by i ty of mg tablet 00:00: 00:00 [place] 2 [place] :[place] (two) Medical times Branch daily. albuterol-i 2019-02 2020- No [id number] 1{puff} Inhale 1 Univers pratropium 02-26-19 Puff 4 ity of 20-100 00:00: 00:00 (four) [place] mcg/actuati 00 :00 times Medical on inhaler daily. [place] metoprolol 2019-02- No [id number] 12.5mg Take 0.5 Univers tartrate 25 02-26-19 tablets by i ty of mg tablet 00:00: 00:00 mouth 2 [place] :[place] (two) Medical times [place] daily. metoprolol 2019-02- No [id number] 12.5mg Take 0.5 Univers tartrate 25 02-26- tablets by i ty of mg tablet 00:00: 00:00 mouth [place] :[place] (two) Medical times [place] daily. aspirin 2019- No 324mg 324 mg, Unive rs chewable 07-26 Oral, ity of tablet 324 22:30: 21:42 ONCE, 1 [place] mg 00 :00 dose, [facility] 07/27/19 at [place] 1730, Routine No known No Univers medications ity of [facility] Vital Signs Vital Name Observation Time Observation Value Comments Source Systolic blood 2019-12-30 135 mm[Hg] University of pressure 17:24:00 [facility] Diastolic blood 2019-12-30 72 mm[Hg] University o f pressure 17:24:00 [facility] Heart rate 2019-12-30 78 /min [facility] 17:24:00 [facility] Body temperature 2019-12-30 35.61 Annemarie University 17:24:00 [facility] Respiratory rate 2019-12-30 18 /min University of 17:24:00 [facility] Oxygen saturation 2019-12-30 91 /min [facility] in Arterial blood 17:24:00 [facility] by Pulse oximetry [place] Body weight 2019-12-30 57.924 kg pt's actual wt University of 10:03:00 on regular [facility] scale [place] BMI 2019-12-30 20.61 kg/m2 University 10:03:00 [facility] Body height 2019-12-29 167.6 cm [facility] 20:18:00 [facility] Systolic blood 2019-12-30 135 mm[Hg] University of pressure 17:24:00 [facility] Diastolic blood 2019-12-30 72 mm[Hg] University o f pressure 17:24:00 [place] [facility] Heart rate 2019-12-30 78 /min University of 17:24:00 [place] [facility] Body temperature 2019-12-30 35.61 Annemarie University of 17:24:00 [place] [facility] Respiratory rate 2019-12-30 18 /min University of 17:24:00 [facility] Branch Oxygen saturation 2019-12-30 91 /min University of in Arterial blood 17:24:00 [place] Medi piedad by Pulse oximetry Branch Body weight 2019-12-30 57.924 kg pt's actual wt University of 10:03:00 on regular [place] Medical scale Branch BMI 2019-12-30 20.61 kg/m2 University of 10:03:00 [facility] Branch Body height 2019-12-29 167.6 cm University of 20:18:00 [place] [facility] Systolic blood 2019-07-27 120 mm[Hg] University of pressure 21:35:00 [facility] Branch Diastolic blood 2019-07-27 79 mm[Hg] University o f pressure 21:35:00 [place] [facility] Heart rate 2019-07-27 93 /min University of :35:00 [place] [facility] Respiratory rate 2019-07-27 12 /min University of :35:00 [facility] Branch Oxygen saturation 2019-07-27 95 /min University of in Arterial blood 21:35:00 [place] Medi piedad by Pulse oximetry Branch Body temperature 2019-07-27 37.5 Annemarie University of 21:15:00 [place] [facility] Body height 2019-07-27 167.6 cm University of 21:15:00 [facility] Branch Body weight 2019-07-27 55.792 kg University of 21:15:00 [facility] Branch BMI 2019-07-27 19.85 kg/m2 University of 21:15:00 [facility] Branch Systolic blood 2019-07-27 120 mm[Hg] University of pressure 21:35:00 [place] [facility] Diastolic blood 2019-07-27 79 mm[Hg] University o f pressure 21:35:00 [facility] Branch Heart rate 2019-07-27 93 /min University of 21:35:00 [place] [facility] Respiratory rate 2019-07-27 12 /min University of 21:35:00 [facility] Branch Oxygen saturation 2019-07-27 95 /min University of in Arterial blood 21:35:00 [place] Medi piedad by Pulse oximetry Branch Body temperature 2019-07-27 37.5 Annemarie University of 21:15:00 [facility] Body height 2019-07-27 167.6 cm [facility] :15:00 [facility] Body weight 2019-07-27 55.792 kg [facility] :15:00 [facility] BMI 2019-07-27 19.85 kg/m2 [facility] 21:15:00 [facility] Procedures Procedure Date / Time Performing Clinician Source Performed EXTERNAL PROVIDER 2020-01-17 06:01:00 Doctor Unassigned, No [facility] RECORDS Name Medical Branch POCT GLUCOSE 2019-12-30 15:25:00 [facility] (AUTOMATED) Meghan Epperson [facility] [place] [facility] MAGNESIUM 2019-12-30 10:10:00 [facility] BASIC METABOLIC PANEL 2019-12-30 10:10:00 [facility] (NA, K, CL, CO2, Medical Branch GLUCOSE, BUN, CREATININE, CA) CBC WITH DIFF 2019-12-30 10:10:00 [facility] POCT GLUCOSE 2019-12-30 01:50:00 [facility] (AUTOMATED) Meghan taniya [facility] [place] [facility] POCT GLUCOSE 2019-12-29 23:32:00 [facility] (AUTOMATED) Meghan Epperson [facility] [place] [facility] HB ECG ROUTINE & RHYTHM 2019-12-29 14:11:36 [facility] STRIP [facility] Branch POCT GLUCOSE 2019-12-29 14:00:00 [facility] (AUTOMATED) Meghan Epperson [facility] [place] [facility] MAGNESIUM 2019-12-29 10:58:00 [facility] BASIC METABOLIC PANEL 2019-12-29 10:58:00 [facility] (NA, K, CL, CO2, Medical Branch GLUCOSE, BUN, CREATININE, CA) ACTIVATED PARTIAL 2019-12-29 10:58:00 [facility] CATHY [facility] EXTERNAL PROVIDER 2019-12-29 06:01:00 Doctor Unassigned, No [facility] RECORDS Name Medical Branch POCT GLUCOSE 2019-12-29 04:16:00 Lexy Monae [facility] (AUTOMATED) Meghan Thibodeaux [facility] Bran ch ACTIVATED PARTIAL 2019-12-29 00:06:00 Mariya [facility] TROPONIN I 2019-12-28 19:46:00 Jesus Paz [facility] LIPID PANEL 2019-12-28 19:46:00 Mariya [facility] ([id number])(TOTAL Medical Branch CHOLESTEROL, TRIGLYCERIDES, HDL) ECHO ROUTINE W/DOPPLER 2019-12-28 16:44:30 Mariya [facility] COLOR [facility] HB ECG ROUTINE & RHYTHM 2019-12-28 13:42:07 Mariya [facility] PROTHROMBIN TIME / INR 2019-12-28 12:24:00 Mariya [facility] ACTIVATED PARTIAL 2019-12-28 12:24:00 Mariya [facility] TROPONIN I 2019-12-28 10:08:00 Mariya [facility] CT CHEST PULMONARY 2019-12-28 04:44:55 Minna Mike [facility] ANGIOGRAM Medical Branch XR CHEST 1 VW 2019-12-28 02:07:34 Minna Mike [facility] COVID-19 (ID NOW RAPID 2019-12-28 01:50:00 Minna Mike [facility] TESTING) Medical Branch HB ECG ROUTINE & RHYTHM 2019-12-28 01:49:31 [facility] 2019-12-28 01:49:00 Minna Mike [facility] THYROID STIMULATING 2019-12-28 01:49:00 Mariya [facility] HORMONE Medical Branch BASIC METABOLIC PANEL 2019-12-28 01:49:00 Minna Mike [facility] (NA, K, CL, CO2, Medical Branch GLUCOSE, BUN, CREATININE, CA) COMP. METABOLIC PANEL 2019-12-28 01:49:00 Minna Mike [facility] ([id number]) Medical Branch CBC WITH DIFF 2019-12-28 01:49:00 Minna Mike [facility] GLYCOSYLATED HEMOGLOBIN 2019-12-28 01:49:00 Willian Meraz [facility] (A1C) [facility] N-TERMINAL PRO-BNP 2019-12-28 01:49:00 Willian Meraz [facility] XR CHEST 1 VW 2019-07-27 22:14:30 Soila Villar [facility] COVID-19 (ID NOW RAPID 2019-07-27 21:43:00 Soila Villar [facility] TESTING) [facility] Branch TROPONIN I 2019-07-27 21:38:00 Soila Villar [facility] HEPATIC FUNCTION PANEL 2019-07-27 21:38:00 Soila Villar [facility] ([id number]) (ALB,T.PRO,BILI [facility] Branch T,BU/BC,ALT,AST,ALK PHOS) BASIC METABOLIC PANEL 2019-07-27 21:38:00 Soila Villar [facility] (NA, K, CL, CO2, Medical Branch GLUCOSE, BUN, CREATININE, CA) CBC WITH DIFFERENTIAL 2019-07-27 21:38:00 Soila Villar [facility] PROTHROMBIN TIME / INR 2019-07-27 21:38:00 Soila Villar [facility] N-TERMINAL PRO-BNP 2019-07-27 21:38:00 Soila Villar [facility] EKG-12 LEAD 2019-07-27 21:21:22 Soila Villar [facility] NOTICE OF PRIVACY 2019-07-27 20:58:21 Doctor Unassigned, No [facility] PRACTICES Name [facility] Encounters Start End Encounter Admission Attending Care Care Encounter Source Date/Time Date/Time Type Type Clinicians Facility Department ID 2020-01-17 2020-01-17 Orders Doctor NICHOLE [id number] 00:00:00 00:00:00 Only UnassASHLEY baker [id number] [place] [facility] [id number] [id number] 2020-01-17 2020-01-17 Orders Doctor NICHOLE [id number] Univers 00:00:00 00:00:00 Only Unassigned, ASHLEY [id number] ity of [place] [facility] 4.2.7.2.686 Nabil as [id number] [facility] 009 Branch 2020-01-01 2020-01-01 Transition Earnest Barkleyoscar 1.2.840.114 [id number] 00:00:00 00:00:00 of Care Sarah Rossy [id number] [place] 4.2.7.2.686 [id number] [facility] 2020-01-01 2020-01-01 Transition Filippo Ree [id number] Univers 00:00:00 00:00:00 of Care Sarah Rossy [id number] ity of [place] 4.2.7.2.686 [place] [id number] [facility] 403 Branch 2019-12-31 2019-12-31 Outpatient Piedad FUNEZ JR, [facility] [id number] Univers 16:00:00 16:00:00 WILLIAN [id number] ity of [facility] 2019-12-27 2019-12-30 [place], [place] Clifford Olivas 1.2.840. 114 [id number] 18:54:00 14:13:00 Encounter Lexy Monae [id number] [facility] [id number] [facility] 2019-12-27 2019-12-30 [facility] Pathomeroracquel Clifford Olivas 1.2.840. 114 [id number] Univers 18:54:00 14:13:00 Encounter Lexy Monae [id number] ity of David Florian Artie [facility] 4.2.7.2.68 6 [place] [id number] [facility] 090 Branch 2019-12-27 2019-12-27 Emergency [facility] [id number] Univers 18:54:00 18:54:00 MINNA ity [facility] 2019-07-27 2019-07-27 Emergency [facility] [id number] [facility] 16:26:45 18:20:00 Soila Espinosa [id number] [facility] 4.2.7.2.686 [facility] [id number] [facility] 084 [place] 2019-07-27 2019-07-27 Emergency [facility] [id number] Univers 16:26:45 18:20:00 [facility] 2019-07-27 2019-07-27 Emergency [facility] [id number] 16:26:45 18:20:00 Soila Espinosa [id number] [place] 4.2.7.2.686 [place] [id number] [id number] Results Test Description Test Time Test Comments Results Result Comments Source POCT GLUCOSE (AUTOMATED) 2019-12-30 15:33:00 Test Item Value Reference Range Interpretation Comme nts POCT GLU (test code = 1760411802) 204 mg/dL 70-110 H Notified Provider Lab Interpretation (test code = 82335-3) Abnormal [facility] METABOLIC PANEL (NA, K, CL, CO2, GLUCOSE, BUN, CREATININE, CA)2019-12-30 10:50:00 Test Item Value Reference Range Interpretation Comments NA (test code = 137 mmol/L 135-145 2927088875) K (test code = 4.1 mmol/L 3.5-5 8757821368) CL (test code = 103 mmol/L 98-108 7330686054) CO2 TOTAL (test code = 29 mmol/L 23-31 4958331885) AGAP (test code = 2-16 3490169669) BUN (test code = 21 mg/dL 7-23 5607313443) GLUCOSE (test code = 97 mg/dL 70-110 3038557985) CREATININE (test code 0.67 mg/dL 0.5-1.04 = 9278010745) CALCIUM (test code = 9.0 mg/dL 8.6-10.6 1005639274) eGFR Calculation mL/min/1.73m2 (Non-) (test code = 2379606766) eGFR Calculation mL/min/1.73m2 () (test code = 8488889843) JOSHUA (test code = JOSHUA) Association of [...] or urine or abnormalities in imaging tests). [facility] 10:50:00 Test Item Value Reference Range Interpretation Comments MAGNESIUM (test code = 1659412251) 2.2 mg/dL 1.7-2.4 Lab Interpretation (test code = Normal 10126-0) [facility] WITH [id number] 10:26:00 Test Item Value Reference Range Interpretation Comments WBC (test code = See_Comment [Automated 1290-2) message] The sy stem which generated this result transmitted reference range : 4.30 - 11.10 10*3/?L. The reference range was not used to interpret this result as normal/abnormal . RBC (test code = See_Comment [Automated 169-8) message] The sy stem which generated this [...] RDW-SD (test code = 44.0 fL 39-49.9 05725-2) RDW-CV (test code = 12.6 % 12-15.5 788-0) PLT (test code = See_Comment [Automated 777-3) message] The sy stem which generated this result transmitted reference range : 166 - 358 10*3/ ?L. The reference r ramona was not used to interpret this result as normal/abnormal . MPV (test code = 9.7 fL 9.5-12.9 16687-7) NRBC/100 WBC (test See_Comment [Automat ed code = 3804526218) message] The system which generated this result transmitted reference range : 0.0 - 10.0 /100 WBCs. The refer ence range was not u sed to interpret th is result as normal/abnormal . NRBC x10^3 (test code <0.01 See_Comment [Auto mated = 2410647571) message] The s ystem which generated this result transmitted reference range : 10*3/?L. The reference range was not used to interpret this result as normal/abnormal . GRAN MAT (NEUT) % 57.7 % (test code = 770-8) IMM GRAN % (test code 0.20 % = 9515563231) LYMPH % (test code = 31.8 % 736-9) MONO % (test code = 8.1 % 5905-5) EOS % (test code = 1.9 % 713-8) BASO % (test code = 0.3 % 706-2) GRAN MAT x10^3(ANC) 5.12 10*3/uL 1.88-7.09 (test code = 1280268816) IMM GRAN x10^3 (test <0.03 0-0.06 code = 1330546640) LYMPH x10^3 (test code 2.82 10*3/uL 1.32-3.29 = 731-0) MONO x10^3 (test code 0.72 10*3/uL 0.33-0.92 = 742-7) EOS x10^3 (test code = 0.17 10*3/uL 0.03-0.39 711-2) BASO x10^3 (test code 0.03 10*3/uL 0.01-0.07 = 704-7) Lab Interpretation Abnormal (test code = 90023-7) [facility] GLUCOSE (AUTOMATED)2019-12-30 01:52:00 Test Item Value Reference Range Interpretation Comments POCT GLU (test code = 9758577928) 199 mg/dL 70-110 H Lab Interpretation (test code = Abnormal 72074-4) [facility] GLUCOSE (AUTOMATED)2019-12-29 23:34:00 Test Item Value Reference Range Interpretation Comments POCT GLU (test code = 9001756262) 120 mg/dL 70-110 H Lab Interpretation (test code = Abnormal 74214-6) [facility] GLUCOSE (AUTOMATED)2019-12-29 14:02:00 Test Item Value Reference Range Interpretation Comments POCT GLU (test code = 8038129040) 99 mg/dL 70-110 Lab Interpretation (test code = Normal 57623-9) [facility] Metabolic Panel (NA, K, CL, CO2, GLUCOSE, BUN, CREATININE, CA)2019-12-29 11:40:00 Test Item Value Reference Range Interpretation Comments NA (test code = 139 mmol/L 135-145 1601228326) K (test code = 4.2 mmol/L 3.5-5 Slight 0300514390) hemolysis CL (test code = 104 mmol/L 98-108 0003316136) CO2 TOTAL (test code 30 mmol/L 23-31 = 3327110402) AGAP (test code = 2-16 6073003279) BUN (test code = 18 mg/dL 7-23 Slight 7678591719) hemolysis GLUCOSE (test code = 116 mg/dL 70-110 H 3695935879) CREATININE (test code 0.61 mg/dL 0.5-1.04 = 3170733064) CALCIUM (test code = 8.9 mg/dL 8.6-10.6 1993499076) eGFR Calculation mL/min/1.73m2 (Non-) (test code = 8962408109) eGFR Calculation mL/min/1.73m2 () (test code = 4756556982) JOSHUA (test code = JOSHUA) Association of [...] tests). Lab Interpretation Abnormal (test code = 68525-7) [facility] Center[facility] [id number] 11:40:00 Test Item Value Reference Range Interpretation Comments MAGNESIUM (test code = 8612134025) 2.2 mg/dL 1.7-2.4 Lab Interpretation (test code = Normal 60912-8) [facility]era[facility] (for use with Heparin Drip)2019-12-29 11:21:00 Test Item Value Reference Range Interpretation Comments APTT Patient (test code See_Comment HH [Au tomated message] = 3173-2) The system Andela generated this result transmitted ref erence range: 26 - 36 Seconds. The reference range was not used to int erpret this result as normal/abnormal . Lab Interpretation (test Abnormal code = 30773-0) [facility]2019-12-29 04:19:00 Test Item Value Reference Range Interpretation Comments POCT GLU (test code = 7571204947) 115 mg/dL 70-110 H Lab Interpretation (test code = Abnormal 62749-5) [facility] CenterLipid Panel (Total Cholesterol, Triglycerides, HDL) - [id number] 03:03:00 Test Item Value Reference Range Interpretation Comments CHOL (test code = 164 mg/dL 120-200 5981407308) HDL (test code = 61 mg/dL >50 1025534221) HDLC RATIO (test code = See_Comment [Au tomated message] 4288015190) The system Andela generated this result transmit shikha reference range : <=4.5. The refe rence range was not u sed to interpret th is result as normal/abnormal . TRIG (test code = 63 mg/dL 30-170 0319329344) LDL CHOL (test code = 90 mg/dL See_Comment [Auto mated message] 31498-0) The system Andela generated this result transmit shikha reference range : <=160. The refe rence range was not u sed to interpret th is result as normal/abnormal . VLDL (test code = 13 mg/dL 5-60 1992911707) Lab Interpretation (test Normal code = 09353-6) [facility] use with Heparin Drip)2019-12-29 00:36:00 Test Item Value Reference Range Interpretation Comments APTT Patient (test code See_Comment H [Au tomated message] = 3173-2) The system Andela generated this result transmitted ref erence range: 26 - 36 Seconds. The reference range was not used to int erpret this result as normal/abnormal . Lab Interpretation (test Abnormal code = 42584-3) [facility] CenterTROPONIN [id number] 21:42:00 Test Item Value Reference Range Interpretation Comments TROPONIN I (test 0.081 ng/mL See_Comment H [Automated code = 1837506470) message] The system which generated this result [...] ? Lab Interpretation Abnormal (test code = 25892-8) [facility] CenterProthrombin Time (PT) / [id number] 12:39:00 Test Item Value Reference Range Interpretation Comments PROTIME PATIENT (test See_Comment [Auto mated message] code = 5964-2) The system [employer] generated this result transmitted ref erence range: 10.1 - 1 2.6 Seconds. The re ference range was not u sed to interpret this result as normal/abnor mal. INR (test code = 6301-6) Nor mal INR <1.1; Warfarin Therap eutic range 2.0 to 3. 0 or 2.5 to 3.5, dep ending upon the indica tions. Lab Interpretation (test Normal code = 55575-9) [facility] CenteraPTT2020-11-19 12:39:00 Test Item Value Reference Range Interpretation Comments APTT Patient (test code = See_Comment [ Automated message] 3173-2) The system Andela generated this result transmitted ref erence range: 26 - 36 Seconds. The re ference range was not u sed to interpret this result as normal/abnor mal. Lab Interpretation (test Normal code = 54673-9) [facility] CenterTroponin [id number] 11:11:00 Test Item Value Reference Range Interpretation Comments TROPONIN I (test 0.148 ng/mL See_Comment H [Automated code = 5705499815) message] The system which generated this result [...] ? Lab Interpretation Abnormal (test code = 92318-7) [facility] CenterGlycosylated Hemoglobin (A1C)2019-12-28 10:57:00 Test Item Value Reference Range Interpretation Comments HGB A1C (test code = 5.8 % - 4548-4) JOSHUA (test code = JOSHUA) %A1C (NGSP) Interpretation (ADA)4.8-5.6 ? ? Normal or (Non-Diabetic Range)5.7-6.4 ? ? Increased Risk (Pre-Diabetic)>6.5 ?Diabetes Indicated Lab Interpretation Normal (test code = 70868-2) [facility] CenterThyroid Stimulating Hormone (TSH)2019-12-28 10:22:00 Test Item Value Reference Range Interpretation Comments TSH (test code = See_Comment Biotin has been 0456011612) reported to cau se a negative bias, interpret resul ts relative to pat ient's use of biotin. [Automated mess age] The system Andela generated this result transmitted ref erence range: 0.45 - 4 .70 mIU/L. The refe rence range was not u sed to interpret this result as normal/abnor mal. Lab Interpretation (test Normal code = 03965-4) [facility] CenterN-Terminal [id number] 10:22:00 Test Item Value Reference Range Interpretation Comments NT-proBNP (test code 636 pg/mL See_Comment H [Autom ated = 4781127555) message] The system which generated this result transmitted reference range : <=125. The reference range was not used to interpret this result as normal/abnormal . JOSHUA (test code = JOSHUA) Biotin has been reported to cause a negative bias, interpret results relative to patient's use of biotin. Lab Interpretation Abnormal (test code = 79347-8) [facility] CenterCT CHEST PULMONARY [id number] 05:35:31 No acute pulmonary embolism through the [...] reviewed this study and agree with theabove report.[facility] CenterXR CHEST 1 [id number] 03:07:42 No acute cardiopulmonary abnormality. Preliminary Report [...] reviewed this study and agree with theabove report.[facility] CenterTROPONIN [id number] 02:26:00 Test Item Value Reference Range Interpretation Comments TROPONIN I (test 0.048 ng/mL See_Comment H [Automated code = 5124361862) message] The system which generated this result [...] ? Lab Interpretation Abnormal (test code = 12253-3) [facility] CenterCOVID-19 (ID NOW RAPID TESTING)2019-12-28 02:22:00 Test Item Value Reference Range Interpretation Comments SARS-CoV-2 Rapid ID NOW Not Detected Not Detected (test code = 49219-2) JOSHUA (test code = JOSHUA) ID NOW COVID-19 Assay is an isothermal nucleic acid amplification test intended for the qualitative detection of nucleic acid from SARS-CoV-2 viral RNA in nasopharyngeal (WOOL PRESSER) specimens. It is used under Emergency Use [...] indicated. Lab Interpretation Normal (test code = 72192-1) [facility]. METABOLIC PANEL (15428)2019-12-28 02:16:00 Test Item Value Reference Range Interpretation Comments NA (test code = 137 mmol/L 135-145 0026593762) K (test code = 3.8 mmol/L 3.5-5 8292335786) CL (test code = 101 mmol/L 98-108 4768916557) CO2 TOTAL (test code = 31 mmol/L 23-31 3263914960) AGAP (test code = 2-16 6479518371) BUN (test code = 18 mg/dL 7-23 8746950589) GLUCOSE (test code = 145 mg/dL 70-110 H 9760109416) CREATININE (test code = 0.55 mg/dL 0.5-1.04 4587699951) TOTAL BILI (test code = 0.4 mg/dL 0.1-1.8 2628859430) CALCIUM (test code = 8.8 mg/dL 8.6-10.6 0008130532) T PROTEIN (test code = 6.7 g/dL 6.3-8.2 1411447895) ALBUMIN (test code = 4.1 g/dL 3.5-5 1697547171) ALK PHOS (test code = 72 U/L 34-122 1015824679) ALTv (test code = 40 U/L 5-35 H 1742-6) AST(SGOT) (test code = 46 U/L 13-40 H 3147906957) eGFR Calculation mL/min/1.73m2 (Non-) (test code = 1253880150) eGFR Calculation mL/min/1.73m2 () (test code = 8830376283) JOSHUA (test code = JOSHUA) Association of [...] tests). Lab Interpretation Abnormal (test code = 21701-8) [facility] CenterBAT[facility] (NA, K, CL, CO2, GLUCOSE, BUN, CREATININE, CA)2019-12-28 02:16:00 Test Item Value Reference Range Interpretation Comments NA (test code = 137 mmol/L 135-145 6540075394) K (test code = 3.8 mmol/L 3.5-5 5212211677) CL (test code = 101 mmol/L 98-108 9867930198) CO2 TOTAL (test code = 31 mmol/L 23-31 8287770480) AGAP (test code = 2-16 2577913548) BUN (test code = 18 mg/dL 7-23 1051673769) GLUCOSE (test code = 145 mg/dL 70-110 H 3906272797) CREATININE (test code = 0.55 mg/dL 0.5-1.04 3698753022) CALCIUM (test code = 8.8 mg/dL 8.6-10.6 5174798716) eGFR Calculation mL/min/1.73m2 (Non-) (test code = 1448873246) eGFR Calculation mL/min/1.73m2 () (test code = 5786747008) JOSHUA (test code = JOSHUA) Association of [...] tests). Lab Interpretation Abnormal (test code = 81786-0) [facility] WITH [id number] 02:01:00 Test Item Value Reference Range Interpretation Comments WBC (test code = See_Comment [Automated 9034-2) message] The sy stem which generated this result transmitted reference range : 4.30 - 11.10 10*3/?L. The reference range was not used to interpret this result as normal/abnormal . RBC (test code = See_Comment [Automated 904-7) message] The sy stem which generated this [...] RDW-SD (test code = 42.5 fL 39-49.9 94474-5) RDW-CV (test code = 12.2 % 12-15.5 788-0) PLT (test code = See_Comment [Automated 777-3) message] The sy stem which generated this result transmitted reference range : 166 - 358 10*3/ ?L. The reference r ramona was not used to interpret this result as normal/abnormal . MPV (test code = 9.7 fL 9.5-12.9 99267-2) NRBC/100 WBC (test See_Comment [Automat ed code = 6301068506) message] The system which generated this result transmitted reference range : 0.0 - 10.0 /100 WBCs. The refer ence range was not u sed to interpret th is result as normal/abnormal . NRBC x10^3 (test code <0.01 See_Comment [Auto mated = 7107337549) message] The s ystem which generated this result transmitted reference range : 10*3/?L. The reference range was not used to interpret this result as normal/abnormal . GRAN MAT (NEUT) % 52.2 % (test code = 770-8) IMM GRAN % (test code 0.30 % = 4988082977) LYMPH % (test code = 36.0 % 736-9) MONO % (test code = 7.3 % 5905-5) EOS % (test code = 3.7 % 713-8) BASO % (test code = 0.5 % 706-2) GRAN MAT x10^3(ANC) 3.36 10*3/uL 1.88-7.09 (test code = 1251521594) IMM GRAN x10^3 (test <0.03 0-0.06 code = 7314405895) LYMPH x10^3 (test code 2.32 10*3/uL 1.32-3.29 = 731-0) MONO x10^3 (test code 0.47 10*3/uL 0.33-0.92 = 742-7) EOS x10^3 (test code = 0.24 10*3/uL 0.03-0.39 711-2) BASO x10^3 (test code 0.03 10*3/uL 0.01-0.07 = 704-7) Lab Interpretation Abnormal (test code = 75566-7) [facility] 1 [id number] 22:39:59 No acute cardiopulmonary abnormality. Emphysematous changes. [...] reviewed this study and agree with the abovereport.[facility] [id number] 22:28:00 Test Item Value Reference Range Interpretation Comments TROPONIN I (test <0.012 See_Comment [Automated code = 6760103619) message] The system which generated this result [...] ? Lab Interpretation Normal (test code = 46770-0) [facility] CenterN-TERMINAL [id number] 22:24:00 Test Item Value Reference Range Interpretation Comments NT-proBNP (test code 675 pg/mL See_Comment H [Autom ated = 1833405729) message] The system which generated this result transmitted reference range : <=125. The reference range was not used to interpret this result as normal/abnormal . JOSHUA (test code = JOSHUA) Biotin has been reported to cause a negative bias, interpret results relative to patient's use of biotin. Lab Interpretation Abnormal (test code = 11960-6) [facility] CenterProthrombin Time (PT) / [id number] 22:20:00 Test Item Value Reference Range Interpretation [...] tions. Lab Interpretation (test Normal code = 69893-9) [facility] CenterBasi Metabolic Panel (NA, K, CL, CO2, GLUCOSE, BUN, CREATININE, CA)2019-07-27 22:17:00 Test Item Value Reference Range Interpretation Comments NA (test code = 138 mmol/L 135-145 5735411461) K (test code = 4.4 mmol/L 3.5-5 6852764778) CL (test code = 101 mmol/L 98-108 4617773570) CO2 TOTAL (test code = 28 mmol/L 23-31 0466305669) AGAP (test code = 2-16 7218980892) BUN (test code = 16 mg/dL 7-23 7840872582) GLUCOSE (test code = 88 mg/dL 70-110 5377040106) CREATININE (test code 0.55 mg/dL 0.5-1.04 = 6408879188) CALCIUM (test code = 10.1 mg/dL 8.6-10.6 6392354081) eGFR Calculation mL/min/1.73m2 (Non-) (test code = 9625702740) eGFR Calculation mL/min/1.73m2 () (test code = 2534956750) JOSHUA (test code = JOSHUA) Association of [...] or urine or abnormalities in imaging tests). [facility] CenterHepatic Function Panel (ALB, T.PRO, BILI T, BU/BC, ALT, AST, ALK PHOS)2019-07-27 22:17:00 Test Item Value Reference Range Interpretation Comments TOTAL BILI (test code = 4564339326) 0.7 mg/dL 0.1-1.1 BILI UNCON (test code = 0890966755) 0.8 mg/dL 0.1-1.1 BILI CONJ (test code = 3114278865) 0.0 mg/dL 0-0.3 T PROTEIN (test code = 1339624871) 7.7 g/dL 6.3-8.2 ALBUMIN (test code = 3463132066) 4.8 g/dL 3.5-5 ALK PHOS (test code = 4752541515) 49 U/L 34-122 ALTv (test code = 1742-6) 35 U/L 5-35 AST(SGOT) (test code = 8783612294) 42 U/L 13-40 H Lab Interpretation (test code = Abnormal 12214-8) [facility] CenterCOVID-19 (ID NOW RAPID TESTING)2019-07-27 22:16:00 Test Item Value Reference Range Interpretation Comments SARS-CoV-2 Rapid ID NOW Not Detected Not Detected (test code = 56589-8) JOSHUA (test code = JOSHUA) ID NOW COVID-19 Assay is an isothermal nucleic acid amplification test intended for the qualitative detection of nucleic acid from SARS-CoV-2 viral RNA in nasopharyngeal (WOOL PRESSER) specimens. It is used under Emergency Use [...] indicated. Lab Interpretation Normal (test code = 95541-1) [facility] WITH [id number] 21:58:00 Test Item Value Reference Range Interpretation [...] RDW-SD (test code = 41.4 fL 39-49.9 01689-3) RDW-CV (test code = 12.2 % 12-15.5 788-0) PLT (test code = See_Comment [Automated 777-3) message] The sy stem which generated this result transmitted reference range : 166 - 358 10*3/ ?L. The reference r ramona was not used to interpret this result as normal/abnormal . MPV (test code = 9.7 fL 9.5-12.9 39368-3) NRBC/100 WBC (test See_Comment [Automat ed code = 3440023178) message] The system which generated this result transmitted reference range : 0.0 - 10.0 /100 WBCs. The refer ence range was not u sed to interpret th is result as normal/abnormal . NRBC x10^3 (test code <0.01 See_Comment [Auto mated = 4748490492) message] The s ystem which generated this result transmitted reference range : 10*3/?L. The reference range was not used to interpret this result as normal/abnormal . GRAN MAT (NEUT) % 72.2 % (test code = 770-8) IMM GRAN % (test code 0.40 % = 6003103246) LYMPH % (test code = 19.5 % 736-9) MONO % (test code = 5.2 % 5905-5) EOS % (test code = 2.1 % 713-8) BASO % (test code = 0.6 % 706-2) GRAN MAT x10^3(ANC) 7.15 10*3/uL 1.88-7.09 H (test code = 3806562252) IMM GRAN x10^3 (test 0.04 10*3/uL 0-0.06 code = 7280463013) LYMPH x10^3 (test code 1.93 10*3/uL 1.32-3.29 = 731-0) MONO x10^3 (test code 0.52 10*3/uL 0.33-0.92 = 742-7) EOS x10^3 (test code = 0.21 10*3/uL 0.03-0.39 711-2) BASO x10^3 (test code 0.06 10*3/uL 0.01-0.07 = 704-7) Lab Interpretation Abnormal (test code = 28276-8) [facility]"
[2021-04-19 15:48] LABS: Absolute Lymphocytes (CBC) 0.5 K/uL (0.7-4.9); Hematocrit 37.2 % (36.0-45.0); Lymphocytes % 5.9 % (15.3-44.8); MPV 8.1 fL (7.6-11.3); RBC Red Blood Cell Count 4.22 M/uL (3.86-4.86)
[2021-04-19 15:51] LABS: Protime INR 1.11
[2021-04-19] MEDS ORDERED: NA CHLORIDE 0.9% 100 ML IV ONE (15:55)
[2021-04-19] MEDS ORDERED: IPRATROPIUM BROM 0.5MG/2.5ML ONE ×2 (15:55→19:41)
[2021-04-19] MEDS ORDERED: LEVALBUTEROL 1.25 MG/3 ML NEB ONE (15:55)
[2021-04-19] MEDS ORDERED: METHYLPREDNISOLONE 125 MG INJ ONE (15:55)
[2021-04-19] MEDS ORDERED: PIPERACIL/TAZO 3.375 GM VIAL IV ONE (15:56)
[2021-04-19] MEDS ORDERED: NA CHLORIDE 0.9% 1,000 ML ONE (15:56)
--- NOTE | 2021-04-19 16:02 | RAD REPORT ---
EXAM DESCRIPTION: RAD - Chest Single View - 04/19/2021 3:37 pm CLINICAL HISTORY: COUGH Chest pain. COMPARISON: Chest Single View dated 04/16/2021; Chest Single View dated 02/18/2021; Chest Single View d ated 12/09/2020; Chest Single View dated 12/06/2020 FINDINGS: Portable technique limits examination quality. The lungs are mildly emphysematous but grossly clear. The heart is normal in size. No displaced fract ures. IMPRESSION: Mild COPD.
[2021-04-19 16:11] LABS: ALT/SGPT 43 U/L (12-78); Albumin 3.4 g/dL (3.4-5.0); Alkaline Phosphatase 61 U/L (45-117); BUN Blood Urea Nitrogen 12 mg/dL (7-18); Bicarbonate 31 mmol/L (21-32); Bilirubin Total 0.3 mg/dL (0.2-1.0); Glucose Level 206 mg/dL (74-106); NT PRO-BNP 786 pg/mL (<125); Protein, Total 6.9 g/dL (6.4-8.2); Sodium Level 135 mmol/L (136-145)
[2021-04-19 16:13] LABS: AST/SGOT 29 U/L (15-37); Bilirubin Direct < 0.1 mg/dL (0-0.2); Potassium 4.3 mmol/L (3.5-5.1)
[2021-04-19] MEDS ORDERED: NICOTINE 21 MG/PAT TD ONE (16:20)
--- NOTE | 2021-04-19 16:42 | EDPHYS ---
Physician Documentation [facility] Name: Dalia Reyes Age: 65 yrs Sex: Female : 1955 Arrival Date: 04/19/2021 Time: 14:24 Bed 5 Private MD: Selam Platt ED Physician Iván Mendez HPI: 04/19 15:47 This 65 yrs old Female presents to ER via Wheelchair with complaints of sepsis, italo Shortness Of Breath, Irregular Pulse. 15:47 The patient has shortness of breath at rest, with light activity. Onset: The italo symptoms/episode began/occurred 3 day(s) ago. Duration: The symptoms are continuous, and are steadily getting worse. The patient's shortness of breath is aggravated by light activity, supine position, talking, walking, is alleviated by nebulizer treatment, pursed lip breathing, rest, sitting up, application of supplemental oxygen. Associated signs and symptoms: Pertinent positives: non-productive cough. Severity of symptoms: At their worst the symptoms were moderate in the emergency department the symptoms are unchanged. The patient has experienced similar episodes in the past, multiple times, chronically. Historical: - Allergies: 14:43 Benadryl; ph 14:43 Lorazepam; ph 14:43 Valium; ph - Home Meds: 14:43 Albuterol Inhl [Active]; aspirin 81 mg Oral chew 1 tab once daily [Active]; ph atorvastatin 80 mg Oral tab 1 tab once daily [Active]; - PMHx: 14:43 Chronic obstructive lung disease; diabetes mellitus; Emphysema; Hypercholesterolemia; ph Hypertensive disorder; - PSHx: 14:43 section; Heart Stents; ph - Immunization history:: Adult Immunizations not up to date. - Social history:: Smoking status: Patient reports the use of cigarette tobacco products, smokes one pack cigarettes per day. - Family history:: not pertinent. ROS: 15:47 Constitutional: Negative for fever, chills, and weight loss, Eyes: Negative for injury, italo pain, redness, and discharge, ENT: Negative for injury, pain, and discharge, Neck: Negative for injury, pain, and swelling, Cardiovascular: Negative for chest pain, palpitations, and edema, Abdomen/GI: Negative for abdominal pain, nausea, vomiting, diarrhea, and constipation, Back: Negative for injury and pain, : Negative for injury, bleeding, discharge, and swelling, MS/Extremity: Negative for injury and deformity, Skin: Negative for injury, rash, and discoloration, Neuro: Negative for headache, weakness, numbness, tingling, and seizure, Psych: Negative for depression, anxiety, suicide ideation, homicidal ideation, and hallucinations, Allergy/Immunology: Negative for hives, rash, and allergies, Endocrine: Negative for neck swelling, polydipsia, polyuria, polyphagia, and marked weight changes, Hematologic/Lymphatic: Negative for swollen nodes, abnormal bleeding, and unusual bruising. 15:47 Respiratory: Positive for cough, shortness of breath, at rest. Exam: 15:47 Constitutional: This is a well developed, well nourished patient who is awake, alert, italo and in no acute distress. Head/Face: Normocephalic, atraumatic. Eyes: Pupils equal round and reactive to light, extra-ocular motions intact. Lids and lashes normal. Conjunctiva and sclera are non-icteric and not injected. Cornea within normal limits. Periorbital areas with no swelling, redness, or edema. ENT: Nares patent. No nasal discharge, no septal abnormalities noted. Tympanic membranes are normal and external auditory canals are clear. Oropharynx with no redness, swelling, or masses, exudates, or evidence of obstruction, uvula midline. Mucous membranes moist. Neck: Trachea midline, no thyromegaly or masses palpated, and no cervical lymphadenopathy. Supple, full range of motion without nuchal rigidity, or vertebral point tenderness. No Meningismus. Chest/axilla: Normal chest wall appearance and motion. Nontender with no deformity. No lesions are appreciated. Cardiovascular: Regular rate and rhythm with a normal S1 and S2. No gallops, murmurs, or rubs. Normal PMI, no JVD. No pulse deficits. Abdomen/GI: Soft, non-tender, with normal bowel sounds. No distension or tympany. No guarding or rebound. No evidence of tenderness throughout. Back: No spinal tenderness. No costovertebral tenderness. Full range of motion. Female : Normal external genitalia. Skin: Warm, dry with normal turgor. Normal color with no rashes, no lesions, and no evidence of cellulitis. MS/ Extremity: Pulses equal, no cyanosis. Neurovascular intact. Full, normal range of motion. Neuro: Awake and alert, GCS 15, oriented to person, place, time, and situation. Cranial nerves II-XII grossly intact. Motor strength 5/5 in all extremities. Sensory grossly intact. Cerebellar exam normal. Normal gait. Psych: Awake, alert, with orientation to person, place and time. Behavior, mood, and affect are within normal limits. 15:47 Respiratory: mild respiratory distress is noted, Respirations: labored breathing, that is mild, Breath sounds: bronchial sounds, that are moderate, decreased breath sounds, that are mild, rhonchi, that are moderate, are scattered, stridor, is not appreciated, + upper airway congestion. wheezing: inspiratory expiratory is heard diffusely. 16:41 ECG was reviewed by the Attending Physician. [facility] Vital Signs: 14:44 BP 135 / 68; Pulse 87; Resp 18; Pulse Ox 94% on R/A; ph 14:51 Temp 97.6; Weight 61.23 kg; Height 5 ft. 6 in. (167.64 cm); ww 15:45 BP 120 / 88; Pulse 85; Resp 20; Pulse Ox 98% on 3 lpm NC; ph 16:42 BP 117 / 79; Pulse 76; Resp 18; Pulse Ox 100% on Nebulizer Mask; ph 17:34 BP 115 / 64; Pulse 84; Resp 20; Pulse Ox 94% on 3 lpm NC; ph 19:09 BP 105 / 52; Pulse 83; Resp 20; Pulse Ox 94% on 3 lpm NC; ph 14:51 Body Mass Index 21.79 (61.23 kg, 167.64 cm) ww MDM: 14:57 Patient medically screened. italo 15:50 Differential diagnosis: Anemia Anxiety Reaction asthma, Bronchitis CHF exacerbation, italo Chronic Obstructive Pulmonary Disease pulmonary edema, reactive airway disease, Sepsis Unstable Angina. Antibiotic administration: Zithromax is given. The patient's Wells Deep Vein Thrombosis Score was calculated as follows: Heart Rate >100 BPM (1.5 Pts) Total Score: 0-2 Pts- Low Risk. The patient's pulmonary embolism risk score was calculated as follows: the patients heart rate is greater than 100 beats per minute (1.5 Pts) Total Score: 0-2 points. This patient was found to be at low risk for a pulmonary embolism by using the Well's assessment criteria. Immunization status: Pneumococcal vaccine: Influenza vaccine: Data reviewed: vital signs, nurses notes, lab test result(s), EKG, radiologic studies, plain films. Data interpreted: traffic monitor specialist: rate is 85 beats/min, rhythm is regular, Pulse oximetry: on room air is 98 %. Test interpretation: by ED physician or midlevel provider: ECG, plain radiologic studies. Counseling: I had a detailed discussion with the patient and/or guardian regarding: the historical points, exam findings, and any diagnostic results supporting the discharge/admit diagnosis, lab results, radiology results, the need for further work-up and treatment in the hospital. 04/19 15:05 Order name: Basic Metabolic Panel; Complete Time: 16:19 [facility] 04/19 15:05 Order name: CBC with Diff; Complete Time: 20:38 [facility] 04/19 15:05 Order name: LFT's; Complete Time: 16:19 [facility] 04/19 15:05 Order name: Magnesium; Complete Time: 16:19 [facility] 04/19 15:05 Order name: NT PRO-BNP; Complete Time: 16:19 [facility] 04/19 15:05 Order name: PT-INR; Complete Time: 15:58 [facility] 04/19 15:05 Order name: Troponin HS; Complete Time: 16:19 [facility] 04/19 15:05 Order name: COVID-19/FLU A+B (Document "Date of Onset" if Symptomatic); Complete Time: italo 20:38 04/19 15:05 Order name: Blood Culture Adult (2) [facility] 04/19 15:05 Order name: Lactate; Complete Time: 16:19 [facility] 04/19 15:05 Order name: Procalcitonin; Complete Time: 20:38 [facility] 04/19 15:05 Order name: Urine Culture [facility] 04/19 15:49 Order name: CBC Smear Scan; Complete Time: 20:38 [facility] 04/19 15:58 Order name: TSH; Complete Time: 20:38 [facility] 04/19 17:09 Order name: Comprehensive Metabolic Panel [facility] 04/19 17:09 Order name: Comprehensive Metabolic Panel [facility] 04/19 17:09 Order name: Lactate [facility] 04/19 17:09 Order name: CBC with Automated Diff [facility] 04/19 17:09 Order name: CBC with Automated Diff [facility] 04/19 17:09 Order name: Lactate [facility] 04/19 17:09 Order name: Lipid Profile [facility] 04/19 17:09 Order name: Lipid Profile [facility] 04/19 17:09 Order name: Magnesium [facility] 04/19 17:09 Order name: Magnesium [facility] 04/19 17:09 Order name: NT PRO-BNP [facility] 04/19 17:09 Order name: NT PRO-BNP [facility] 04/19 17:09 Order name: Phosphorus [facility] 04/19 17:09 Order name: Phosphorus [facility] 04/19 17:20 Order name: Urine Dipstick-Ancillary; Complete Time: 20:38 [facility] 04/19 19:37 Order name: Lactate Sepsis 2 HR Follow-up; Complete Time: 20:38 [facility] 04/19 15:05 Order name: XRAY Chest (1 view); Complete Time: 16:19 [facility] 04/19 15:05 Order name: EKG; Complete Time: 15:06 [facility] 04/19 15:05 Order name: Cardiac monitoring; Complete Time: 15:41 [facility] 04/19 15:05 Order name: EKG - Nurse/Tech; Complete Time: 16:29 [facility] 04/19 15:05 Order name: IV Saline Lock; Complete Time: 15:41 [facility] 04/19 15:05 Order name: Labs collected and sent; Complete Time: 15:41 [facility] 04/19 15:05 Order name: O2 Per Protocol; Complete Time: 15:41 [facility] 04/19 15:05 Order name: O2 Sat Monitoring; Complete Time: 15:41 [facility] 04/19 15:05 Order name: Urine Dipstick-Ancillary (obtain specimen); Complete Time: 17:34 [facility] 04/19 17:09 Order name: CONS Physician Consult [facility] 04/19 17:09 Order name: Heart Healthy [facility] EC:41 Rate is 72 beats/min. Rhythm is regular. QRS [place] is Normal. IN interval is normal. QRS italo interval is normal. QT interval is normal. No Q waves. T waves are Normal. No ST changes noted. Clinical impression: Normal ECG and No evidence of ischemia. Interpreted by me. Reviewed by me. Administered Medications: 16:15 Drug: NS 0.9% 1000 ml Route: IV; Rate: 1 bolus; Site: right forearm; ph 17:30 Follow up: Response: No adverse reaction; IV Status: Completed infusion; IV Intake: ph 1000ml 16:15 Drug: SOLU-Medrol (methylPrednisoLONE) 125 mg Route: IVP; Site: right forearm; ph 19:21 Follow up: Response: No adverse reaction ph 16:26 Drug: Xopenex (levalbuterol) 3.75 mg Route: Inhalation; ph 19:22 Follow up: Response: No adverse reaction ph 16:26 Drug: AtroVENT (ipratropium) Aerosol 0.5 mg Route: Inhalation; ph 19:22 Follow up: Response: No adverse reaction ph 16:27 Drug: Nicotine Patch 21 mg/24 hr 1 patches {Note: applied to R upper arm.} Route: ph Transdermal; Site: affected area; 19:23 Follow up: Response: No adverse reaction ph 16:42 Drug: Zosyn (piperacillin-tazobactam) 3.375 grams Route: IVPB; Infused Over: 60 mins; ph Site: right forearm; 17:45 Follow up: Response: No adverse reaction; IV Status: Completed infusion ph Disposition Summary: 04/19/21 16:41 Hospitalization Ordered Hospitalization Status: Inpatient Admission italo Provider: Brian Riley cha Location: Telemetry/MedSurg (Inpatient) italo Condition: Fair italo Problem: new italo Symptoms: have improved italo Bed/Room Type: Standard italo Room Assignment: 407(04/19/21 19:11) mw Diagnosis - COPD/ Chronic obstructive pulmonary disease with (acute) exacerbation italo - Weakness italo Forms: - Medication Reconciliation Form italo - SBAR form italo Signatures: Dispatcher [employer] EDMS Ratna Obando RN RN mw Anderson, Corey, MD MD cha Nieto, Roman, MD MD rn Hall, Patricia, RN RN Nia Patel RN RN ww Corrections: (The following items were deleted from the chart) 19:11 16:41 italo mw
--- NOTE | 2021-04-19 16:42 | ER ---
Nurse's Notes [facility] Name: Dalia Reyes Age: 65 yrs Sex: Female : 1955 Arrival Date: 04/19/2021 Time: 14:24 Bed 5 Private MD: Selam Platt Diagnosis: COPD/ Chronic obstructive pulmonary disease with (acute) exacerbation;Weakness Presentation: 04/19 14:51 Chief complaint: Patient states: Shortness of breath that has been going on for awhile. ww Wears home O2. Was in ER a few days ago and was unable to be admitted. Patient states it isn't due to her lungs its due to her heart. Coronavirus screen: Vaccine status: Patient reports being unvaccinated. Client denies travel out of the [place] in the last 14 days. Ebola Screen: Patient denies travel to an Ebola-affected area in the 21 days before illness onset. Initial Sepsis Screen: Does the patient meet any 2 criteria? No. Patient's initial sepsis screen is negative. Does the patient have a suspected source of infection? No. Patient's initial sepsis screen is negative. Risk Assessment: Do you want to hurt yourself or someone else? Patient reports no desire to harm self or others. Onset of symptoms is unknown. 14:51 Method Of Arrival: Wheelchair ww 14:51 Acuity: CONSTANTINO 3 ww Triage Assessment: 14:51 General: Appears in no apparent distress. Behavior is calm, cooperative. Neuro: Level ww of Consciousness is awake, alert, obeys commands, Oriented to person, place, time, situation, Speech is normal. Cardiovascular: Patient's skin is warm and dry. Rhythm is regular. Respiratory: Reports shortness of breath Airway is patent Respiratory effort is even, unlabored, Respiratory pattern is regular, symmetrical. GI: No signs and/or symptoms were reported involving the gastrointestinal system. : No signs and/or symptoms were reported regarding the genitourinary system. 19:23 Respiratory: Onset: The symptoms/episode began/occurred gradually, the patient has mild ph shortness of breath. Historical: - Allergies: 14:43 Benadryl; ph 14:43 Lorazepam; ph 14:43 Valium; ph - Home Meds: 14:43 Albuterol Inhl [Active]; aspirin 81 mg Oral chew 1 tab once daily [Active]; ph atorvastatin 80 mg Oral tab 1 tab once daily [Active]; - PMHx: 14:43 Chronic obstructive lung disease; diabetes mellitus; Emphysema; Hypercholesterolemia; ph Hypertensive disorder; - PSHx: 14:43 section; Heart Stents; ph - Immunization history:: Adult Immunizations not up to date. - Social history:: Smoking status: Patient reports the use of cigarette tobacco products, smokes one pack cigarettes per day. - Family history:: not pertinent. Screenin:53 Abuse screen: Denies threats or abuse. Denies injuries from another. Nutritional ww screening: No deficits noted. Tuberculosis screening: No symptoms or risk factors identified. 15:45 Fall Risk None identified. ph Assessment: 15:42 General: Appears in no apparent distress. comfortable, Behavior is calm, cooperative, ph appropriate for age, Denies fever, chills. Pain: Complains of pain in chest Pain does not radiate. Quality of pain is described as heavy. Neuro: Level of Consciousness is awake, alert, obeys commands, Oriented to person, place, time, situation. Cardiovascular: Reports chest pain, shortness of breath, Capillary refill < 3 seconds in bilateral fingers Patient's skin is warm and dry. Rhythm is atrial fibrillation Chest pain quality is heaviness. Respiratory: Reports shortness of breath at rest Airway is patent Respiratory effort is even, unlabored, Respiratory pattern is regular, symmetrical. GI: No signs and/or symptoms were reported involving the gastrointestinal system. Derm: Skin is intact, is healthy with good turgor, Skin is pink, warm \T\ dry. Musculoskeletal: Circulation, motion, and sensation intact. Range of motion: intact in all extremities. 16:43 Reassessment: Patient appears in no apparent distress at this time. Patient and/or ph family updated on plan of care and expected duration. Pain level reassessed. Patient is alert, oriented x 3, equal unlabored respirations, skin warm/dry/pink. 18:00 Reassessment: Patient appears in no apparent distress at this time. Patient and/or ph family updated on plan of care and expected duration. Pain level reassessed. Patient is alert, oriented x 3, equal unlabored respirations, skin warm/dry/pink. 21:13 Respiratory: Breath sounds are diminished bilaterally. kd3 Vital Signs: 14:44 BP 135 / 68; Pulse 87; Resp 18; Pulse Ox 94% on R/A; ph 14:51 Temp 97.6; Weight 61.23 kg; Height 5 ft. 6 in. (167.64 cm); ww 15:45 BP 120 / 88; Pulse 85; Resp 20; Pulse Ox 98% on 3 lpm NC; ph 16:42 BP 117 / 79; Pulse 76; Resp 18; Pulse Ox 100% on Nebulizer Mask; ph 17:34 BP 115 / 64; Pulse 84; Resp 20; Pulse Ox 94% on 3 lpm NC; ph 19:09 BP 105 / 52; Pulse 83; Resp 20; Pulse Ox 94% on 3 lpm NC; ph 14:51 Body Mass Index 21.79 (61.23 kg, 167.64 cm) ww Vitals: 15:45 Cardiac Rhythm Assessment Irregular. ph 19:09 Cardiac Rhythm Assessment Regular. ph ED Course: 14:24 Patient arrived in ED. as 14:28 Selam Platt is Private Physician. as 14:51 Arm band placed on right wrist. ww 14:52 Triage completed. ww 14:53 Patient has correct armband on for positive identification. Placed in gown. Bed in low ww position. Call light in reach. Side rails up X 1. Adult w/ patient. bus monitor on. Pulse ox on. NIBP on. 14:57 Iván Mendez MD is Attending Physician. italo 15:30 Initial lab(s) drawn, by wi, sent to lab. First set of blood cultures drawn. Oxygen ph administration via nasal cannula \T\ 3L/min Response to oxygen therapy: uses at home. 15:37 XRAY Chest (1 view) In Process Unspecified. EDMS 15:39 Inserted saline lock: 22 gauge in right forearm, using aseptic technique. Blood ph collected. 15:47 Lea Choi, SIDDHARTH is Primary Nurse. ph 16:40 Brian Riley MD is Hospitalizing Provider. italo 19:23 No provider procedures requiring assistance completed. Patient admitted, IV remains in ph place. Administered Medications: 16:15 Drug: NS 0.9% 1000 ml Route: IV; Rate: 1 bolus; Site: right forearm; ph 17:30 Follow up: Response: No adverse reaction; IV Status: Completed infusion; IV Intake: ph 1000ml 16:15 Drug: SOLU-Medrol (methylPrednisoLONE) 125 mg Route: IVP; Site: right forearm; ph 19:21 Follow up: Response: No adverse reaction ph 16:26 Drug: Xopenex (levalbuterol) 3.75 mg Route: Inhalation; ph 19:22 Follow up: Response: No adverse reaction ph 16:26 Drug: AtroVENT (ipratropium) Aerosol 0.5 mg Route: Inhalation; ph 19:22 Follow up: Response: No adverse reaction ph 16:27 Drug: Nicotine Patch 21 mg/24 hr 1 patches {Note: applied to R upper arm.} Route: ph Transdermal; Site: affected area; 19:23 Follow up: Response: No adverse reaction ph 16:42 Drug: Zosyn (piperacillin-tazobactam) 3.375 grams Route: IVPB; Infused Over: 60 mins; ph Site: right forearm; 17:45 Follow up: Response: No adverse reaction; IV Status: Completed infusion ph Intake: 17:30 IV: 1000ml; Total: 1000ml. ph Outcome: 16:41 Decision to Hospitalize by Provider. italo 19:29 Admitted to Med/surg room 407, Report called to 4th floor rn kd3 21:13 Patient left the ED. kd3 21:13 Condition: stable kd3 Signatures: Dispatcher [employer] EDMS Iván Mendez ph D, MD MD cha Martinez, Amelia as Hall, Patricia, RN RNoucette, Kyli, RN RN kdNia Brown RN RN ww
[2021-04-19 16:45] LABS: SARS-COV-2 RT PCR NEGATIVE (NEGATIVE)
[2021-04-19] MEDS ORDERED: ACETAMINOPHEN 500 MG TAB PO PRN (17:05)
[2021-04-19] MEDS ORDERED: ONDANSETRON 4 MG/2 ML VIAL IV PRN (17:05)
[2021-04-19 17:07] LABS: Platelet Estimate ADEQ; White Blood Cell Scan OK (OK)
[2021-04-19 17:08] LABS: Blood Morphology Comment NOT SEEN (NOT SEEN)
[2021-04-19 17:20] LABS: Urine Blood Negative (Negative); Urine Glucose 1+ (Negative); Urine Protein Negative (Negative); Urine Specific Gravity 1.025 (1.005-1.030); Urine pH 6.5 (5.0-7.0)
[2021-04-19] MEDS: IPRATROPIUM BROM 0.5MG/2.5ML NEB SCH (19:30)
[2021-04-19] MEDS: ALBUTEROL 2.5 MG/3 ML NEB SOL NEB SCH (19:30)
[2021-04-19] MEDS ORDERED: ALBUTEROL 2.5 MG/3 ML NEB SOL ONE (19:41)
[2021-04-19] MEDS: CEFTRIAXONE 1,000 MG in NA CHLORIDE 0.9% 50 ML IVPB SCH (21:15)
[2021-04-19] MEDS: NA CHLORIDE 0.9% 1,000 ML IV SCH (23:56)
[2021-04-20] MEDS: ALBUTEROL 2.5 MG/3 ML NEB SOL NEB SCH ×4 (00:40→19:25)
[2021-04-20] MEDS: IPRATROPIUM BROM 0.5MG/2.5ML NEB SCH ×4 (00:40→19:25)
[2021-04-20] MEDS ORDERED: ALBUTEROL 2.5 MG/3 ML NEB SOL NEB ONE (03:29)
[2021-04-20] MEDS ORDERED: METHYLPREDNISOLONE 125 MG INJ IV ONE (03:29)
[2021-04-20] MEDS ORDERED: IPRATROPIUM BROM 0.5MG/2.5ML NEB ONE (03:29)
[2021-04-20 04:09] LABS: Absolute Lymphocytes (CBC) 0.4 K/uL (0.7-4.9); Hematocrit 35.6 % (36.0-45.0); Lymphocytes % 4.7 % (15.3-44.8); MPV 7.9 fL (7.6-11.3); RBC Red Blood Cell Count 3.97 M/uL (3.86-4.86)
[2021-04-20 04:28] LABS: Albumin 3.4 g/dL (3.4-5.0); Bilirubin Total 0.2 mg/dL (0.2-1.0); Magnesium 1.9 mg/dL (1.8-2.4); Phosphorus 2.9 mg/dL (2.5-4.9); Protein, Total 6.7 g/dL (6.4-8.2)
[2021-04-20] MEDS ORDERED: NA CHLORIDE 0.9% 500 ML IV ONE (05:01)
[2021-04-20 06:36] VITALS: BMI 21.7
[2021-04-20] MEDS: AZITHROMYCIN IV 500 MG in NA CHLORIDE 0.9% 250 ML IVPB SCH (07:55)
[2021-04-20] MEDS: ENOXAPARIN 40 MG/0.4 ML SQ SCH (07:56)
[2021-04-20] MEDS: CEFTRIAXONE 1,000 MG in NA CHLORIDE 0.9% 50 ML IVPB SCH ×2 (07:56→21:13)
--- NOTE | 2021-04-20 10:03 | P.HP ---
Certification for Inpatient Patient admitted to: Inpatient With expected LOS: >2 Midnights Patient will require the following post-hospital care: None Practitioner: I am a practitioner with admitting privileges, knowledge of patient current condition, hospital course, and medical plan of care. Services: Services provided to patient in accordance with Admission requirements found in Title 42 Section 412.3 of the Code of Federal Regulations Patient History Date of Service: 04/19/21 Reason for admission: Acute COPD exacerbation History of Present Illness: Pt is a 65yo who presented to the hospital with shortness of breath. Patient has a history of tobacco abuse. Patient with a history of COPD exacerbation. Patient is on 2 to 3 L of oxygen. She follows up routinely but she has also has some issues with some chest pain and she stated that they thought she had a stroke in December. She was not able to follow-up because she did not have insurance. She came to the emergency room at this point because of her respiratory status. She is feeling better. She will be admitted to the hospital for COPD exacerbation. Her lactic acid was also severely elevated most likely related to hypoxemia. We will monitor her closely. Allergies No Known Allergies Allergy (Verified 04/20/21 07:15) Home Medications: Albuterol Sulfate [Proventil Hfa] 1 puff IH BID PRN 04/20/21 Aspirin [Aspirin EC] 81 mg PO DAILY 04/20/21 Atorvastatin Calcium [Lipitor] 80 mg PO DAILY 04/20/21 Buspirone HCl 15 mg PO BID 04/20/21 Clopidogrel Bisulfate [Plavix] 75 mg PO DAILY 04/20/21 Fluticasone [Flovent Hfa 110] 1 spray IH BID 04/20/21 Fluticasone/Umeclidin/Vilanter [Trelegy Ellipta 100-62.5-25] 1 each IH DAILY 04/20/21 Guaifenesin/Dextromethorphan [Mucus Relief Dm Cough Tablet] 1 each PO BID 04/20/21 Ipratropium/Albuterol Sulfate [Iprat-Albut 0.5-3(2.5) mg/3 ml] 3 ml IH Q6HP PRN 04/20/21 Lamotrigine [Lamictal] 100 mg PO BID 04/20/21 Linagliptin [Tradjenta] 5 mg PO DAILY 04/20/21 Metformin HCl 1,000 mg PO BID 04/20/21 Metoprolol Tartrate 25 mg PO BID 04/20/21 Prednisone [Sterapred Ds] 10 mg PO DAILY 04/20/21 Roflumilast [Daliresp] 500 mcg PO DAILY 04/20/21 Tiotropium [Spiriva Handihaler] 1 puff IH DAILY 04/20/21 Trazodone HCl 100 mg PO DAILY 04/20/21 - Past Medical/Surgical History Has patient received pneumonia vaccine in the past: No Diabetic: No -: COPD -: HTN -: Diabetes mellitus type 2 -: CAD -: Depression -: Psychosocial/ Personal History: Patient is retired, lives with her daughter - Family History Father Notes: Patient is adopted - Social History Smoking Status: Current every day smoker Alcohol use: No CD- Drugs: No Caffeine use: Yes Place of Residence: Home Review of Systems 10-point ROS is otherwise unremarkable Physical Examination - Vital Signs Temperature: 96.9 F Blood Pressure: 111/52 Pulse: 103 Respirations: 19 Pulse Ox (%): 97 - Physical Exam General: Alert, In no apparent distress, Oriented x3 HEENT: Atraumatic, PERRLA, Mucous membr. moist/pink, EOMI, Sclerae nonicteric Neck: Supple, 2+ carotid pulse no bruit, No LAD, Without JVD or thyroid abnormality Respiratory: Clear to auscultation bilaterally, Normal air movement Cardiovascular: Regular rate/rhythm, Normal S1 S2 Gastrointestinal: Normal bowel sounds, No tenderness Musculoskeletal: No tenderness Integumentary: No rashes Neurological: Normal gait, Normal speech, Normal strength at 5/5 x4 extr, Normal tone, Normal affect Lymphatics: No axilla or inguinal lymphadenopathy - Studies Laboratory Data (last 24 hrs) 04/19/21 15:30: PT 12.2, INR 1.11 04/19/21 15:30: WBC 9.30, Hgb 12.3, Hct 37.2, Plt Count 270 04/19/21 15:30: Sodium 135 L, Potassium 4.3, BUN 12, Creatinine 0.78, Glucose 206 H, Magnesium 2.0, Total Bilirubin 0.3, AST 29, ALT 43, Alkaline Phosphatase 61 Assessment & Plan - Problems (Diagnosis) (1) Lactic acidosis Current Visit: Yes Status: Acute (2) COPD exacerbation Onset Date: 01/21/17 Current Visit: No Status: Acute (3) Diabetes mellitus type 2 in nonobese Current Visit: No Status: Acute (4) HTN (hypertension) Onset Date: 01/21/17 Current Visit: No Status: Chronic Qualifiers: Hypertension type: primary hypertension Qualified Code(s): I10 - Essential (primary) hypertension (5) T2DM (type 2 diabetes mellitus) Current Visit: No Status: Chronic Qualifiers: Diabetes mellitus halfway insulin use: without halfway use Diabetes mellitus complication status: without complication Qualified Code(s): E11.9 - Type 2 diabetes mellitus without complications - Plan Plan: 1. Continue with albuterol and Atrovent nebs 2. Continue with IV steroids 3. Outpatient pulmonary function testing 4. Pulmonary consultation if they are available 5. Continue oxygenation to keep sats greater than 90% 6. Repeat chest x-ray in the morning 7. Monitor cardiac status closely on telemetry 8. GI and DVT prophylaxis Discharge Plan: Home Plan to discharge in: Greater than 2 days - Advance Directives Does patient have a Living Will: Yes Does patient have a Durable POA for Healthcare: Yes - Code Status/Comfort Care Code Status Assessed: Yes Code Status: Full Code Critical Care: No Time Spent Managing PTS Care (In Minutes): 45
--- NOTE | 2021-04-20 10:08 | P.PN ---
Subjective Date of Service: 04/20/21 Patient states she is having some chest discomfort. Pain mainly in the sternal region. She says she was supposed to have a cardiac work-up in the past but she was not able to follow-up. Review of Systems 10-point ROS is otherwise unremarkable Physical Examination - Vital Signs Temperature: 96.9 F Blood Pressure: 111/52 Pulse: 103 Respirations: 19 Pulse Ox (%): 97 - Physical Exam General: Alert, In no apparent distress, Oriented x3 HEENT: Atraumatic, PERRLA, EOMI Neck: Supple, JVD not distended Respiratory: Diminished, Expiratory wheezes Cardiovascular: Regular rate/rhythm, Normal S1 S2, Systolic murmur Gastrointestinal: Normal bowel sounds, Soft and benign, Non-distended, No tenderness Musculoskeletal: No clubbing, No swelling, No tenderness Neurological: Sensation intact, Cranial nerves 3-12 intact - Studies Laboratory Data (last 24 hrs) 04/19/21 15:30: PT 12.2, INR 1.11 04/19/21 15:30: WBC 9.30, Hgb 12.3, Hct 37.2, Plt Count 270 04/19/21 15:30: Sodium 135 L, Potassium 4.3, BUN 12, Creatinine 0.78, Glucose 206 H, Magnesium 2.0, Total Bilirubin 0.3, AST 29, ALT 43, Alkaline Phosphatase 61 Medications List Reviewed: Yes Assessment & Plan - Problems (Diagnosis) (1) Lactic acidosis Current Visit: Yes Status: Acute (2) COPD exacerbation Onset Date: 01/21/17 Current Visit: No Status: Acute (3) Diabetes mellitus type 2 in nonobese Current Visit: No Status: Acute (4) HTN (hypertension) Onset Date: 01/21/17 Current Visit: No Status: Chronic Qualifiers: Hypertension type: primary hypertension Qualified Code(s): I10 - Essential (primary) hypertension (5) T2DM (type 2 diabetes mellitus) Current Visit: No Status: Chronic Qualifiers: Diabetes mellitus alf insulin use: without terminal clerk use Diabetes mellitus complication status: without complication Qualified Code(s): E11.9 - Type 2 diabetes mellitus without complications (6) Chest pain, rule out acute myocardial infarction Current Visit: Yes Status: Acute - Plan Plan: 1. Continue with albuterol and Atrovent nebs 2. Continue with IV steroids 3. Outpatient pulmonary function testing 4. Pulmonary consultation if they are available 5. Continue oxygenation to keep sats greater than 90% 6. Repeat chest x-ray in the morning 7. Monitor cardiac status closely on telemetry 8. GI and DVT prophylaxis Discharge Plan: Home Plan to discharge in: Greater than 2 days - Advance Directives Does patient have a Living Will: Yes Does patient have a Durable POA for Healthcare: Yes - Code Status/Comfort Care Code Status: Full Code Critical Care: No Time Spent Managing PTS Care (In Minutes): 45
--- NOTE | 2021-04-20 10:11 | EKG ---
Test Date: 2021-04-19 Test Time: 16:12:19 Manager Revenue: PH MEASUREMENT RESULTS: Intervals: Rate: 72 SD: 122 QRSD: 90 QT: 424 QTc: 464 Gobles: P: 88 SD: 122 QRS: 80 T: 85 INTERPRETIVE STATEMENTS: Normal sinus rhythm Possible Left atrial enlargement Borderline ECG Compared to ECG 04/16/2021 23:57:41 Sinus tachycardia no longer present Electronically Signed On 04-20-21 10:10:49 CDT by Ramses Palmer
[2021-04-20] MEDS ORDERED: INFLUENZA VACCINE (for 6+ mo) 0.5 ML DOSE IMVAC ONE (11:00)
[2021-04-20] MEDS ORDERED: PNEUMOCOCCAL VACCINE 0.5 ML IMVAC ONE (11:00)
--- NOTE | 2021-04-20 11:20 | P.CNS ---
Date of Consult: 04/20/21 Reason for Consult: COPD exacerbation Chief Complaint: Acute COPD exacerbation History of Present Illness: Patient is 65 years of age admitted with shortness of breath history of COPD is on home oxygen apparently she is on hospice care is currently stable compliant on medication Patient's lactic acid was elevated oxygenation satisfactory Allergies No Known Allergies Allergy (Verified 04/20/21 07:15) Home Medications: Albuterol Sulfate [Proventil Hfa] 1 puff IH BID PRN 04/20/21 Aspirin [Aspirin EC] 81 mg PO DAILY 04/20/21 Atorvastatin Calcium [Lipitor] 80 mg PO DAILY 04/20/21 Buspirone HCl 15 mg PO BID 04/20/21 Clopidogrel Bisulfate [Plavix] 75 mg PO DAILY 04/20/21 Fluticasone [Flovent Hfa 110] 1 spray IH BID 04/20/21 Fluticasone/Umeclidin/Vilanter [Trelegy Ellipta 100-62.5-25] 1 each IH DAILY 04/20/21 Guaifenesin/Dextromethorphan [Mucus Relief Dm Cough Tablet] 1 each PO BID 04/20/21 Ipratropium/Albuterol Sulfate [Iprat-Albut 0.5-3(2.5) mg/3 ml] 3 ml IH Q6HP PRN 04/20/21 Lamotrigine [Lamictal] 100 mg PO BID 04/20/21 Linagliptin [Tradjenta] 5 mg PO DAILY 04/20/21 Metformin HCl 1,000 mg PO BID 04/20/21 Metoprolol Tartrate 25 mg PO BID 04/20/21 Prednisone [Sterapred Ds] 10 mg PO DAILY 04/20/21 Roflumilast [Daliresp] 500 mcg PO DAILY 04/20/21 Tiotropium [Spiriva Handihaler] 1 puff IH DAILY 04/20/21 Trazodone HCl 100 mg PO DAILY 04/20/21 - Past Medical/Surgical History Diabetic: No -: COPD -: HTN -: Diabetes mellitus type 2 -: CAD -: Depression -: Psychosocial/ Personal History: Patient is retired, lives with her daughter - Family History Father Notes: Patient is adopted - Social History Smoking Status: Current every day smoker Alcohol use: No CD- Drugs: No Caffeine use: Yes Place of Residence: Home Review of Systems General: Weakness Respiratory: Shortness of Breath Physical Examination Temp Pulse Resp BP Pulse Ox 96.9 F 103 H 19 111/52 L 97 04/20/21 10:08 04/20/21 10:08 04/20/21 10:08 04/20/21 10:08 04/20/21 10:08 General: Alert, Oriented x3 Respiratory: Clear to auscultation bilaterally, Diminished Cardiovascular: No edema, Normal S1 S2 Laboratory Data (last 24 hrs) 04/19/21 15:30: PT 12.2, INR 1.11 04/19/21 15:30: WBC 9.30, Hgb 12.3, Hct 37.2, Plt Count 270 04/19/21 15:30: Sodium 135 L, Potassium 4.3, BUN 12, Creatinine 0.78, Glucose 206 H, Magnesium 2.0, Total Bilirubin 0.3, AST 29, ALT 43, Alkaline Phosphatase 61 - Problems (1) COPD exacerbation Onset Date: 01/21/17 Current Visit: No Status: Acute Plan: Patient is 65 years of age admitted with COPD exacerbation was under hospice care currently stable lactic acid is mildly elevated doubt sepsis probably more likely from the high doses of Metformin that the patient is on hold for now patient is to stop hospice care and follow-up with me not sure what inhaler she is on stable for discharge oxygenation satisfactory plan to follow-up as an outpatient
--- NOTE | 2021-04-20 13:51 | RAD REPORT ---
EXAM DESCRIPTION: - CP - 04/20/2021 1:45 pm CLINICAL HISTORY: Bruit/TIA history COMPARISON: No comparisons TECHNIQUE: Real-time sonographic evaluation of both carotid systems was performed. Doppler interroga tion was performed with waveform tracing bilaterally. FINDINGS: Normal high resistance waveforms are noted in both external carotid arteries. The common c arotid arteries and internal carotid arteries show normal low resistance waveforms. Hard plaque present in the right mid CCA and double. Peak systolic and end diastolic velocity values and the ICA/CCA ratios are in the non-hemodynamically significant range. Antegrade flow seen in both vertebral arteries. IMPRESSION: Mild hard plaque in the right common carotid artery and ICA. No evidence of a hemodynamically significant stenosis.
[2021-04-20] MEDS: NA CHLORIDE 0.9% 1,000 ML IV SCH ×2 (18:00→21:13)
[2021-04-21] MEDS: IPRATROPIUM BROM 0.5MG/2.5ML NEB SCH (01:46)
[2021-04-21] MEDS: ALBUTEROL 2.5 MG/3 ML NEB SOL NEB SCH (01:46)
[2021-04-21 02:24] VITALS: O2SAT 100
[2021-04-21 05:52] LABS: Absolute Lymphocytes (CBC) 2.6 K/uL (0.7-4.9); Hematocrit 35.7 % (36.0-45.0); Lymphocytes % 30.1 % (15.3-44.8); MPV 8.2 fL (7.6-11.3)
[2021-04-21 06:16] LABS: ALT/SGPT 139 U/L (12-78); AST/SGOT 110 U/L (15-37); Albumin 3.3 g/dL (3.4-5.0); Alkaline Phosphatase 72 U/L (45-117); BUN Blood Urea Nitrogen 9 mg/dL (7-18); Bicarbonate 28 mmol/L (21-32); Bilirubin Total 0.3 mg/dL (0.2-1.0); Glucose Level 126 mg/dL (74-106); Magnesium 2.1 mg/dL (1.8-2.4); Potassium 3.4 mmol/L (3.5-5.1); Protein, Total 6.4 g/dL (6.4-8.2); Sodium Level 140 mmol/L (136-145)
--- NOTE | 2021-04-21 08:23 | RAD REPORT ---
EXAM DESCRIPTION: RAD - Chest Single View - 04/21/2021 6:18 am CLINICAL HISTORY: pneumonia Chest pain. COMPARISON: Chest Single View dated 04/19/2021; Chest Single View dated 04/16/2021; Chest Single View d ated 02/18/2021; Chest Single View dated 12/09/2020 FINDINGS: Portable technique limits examination quality. Emphysematous changes are present throughout the lungs. Chronic prominence of the pulmonary interstit ial markings are seen. The heart is normal in size. No displaced fractures.
[2021-04-21] MEDS: ENOXAPARIN 40 MG/0.4 ML SQ SCH (08:42)
[2021-04-21] MEDS: CEFTRIAXONE 1,000 MG in NA CHLORIDE 0.9% 50 ML IVPB SCH (08:43)
[2021-04-21] MEDS ORDERED: POTASSIUM CL SA 10 MEQ TAB PO ONE (09:00)
[2021-04-21] MEDS: AZITHROMYCIN IV 500 MG in NA CHLORIDE 0.9% 250 ML IVPB SCH (09:53)
[2021-04-21 12:05] VITALS: BP 150/80; TEMP 96.9
--- NOTE | 2021-04-21 13:53 | P.DS ---
Admission Date: 04/19/21 Discharge Date: 04/21/21 Disposition: ROUTINE DISCHARGE Discharge Condition: GOOD Reason for Admission: Acute COPD exacerbation Consultations: Pulmonology - Dr. Licona Procedures: Problem List acute on chronic COPD exacerbation DM2, non-insulin dependent chest pain, anxiety lactic acidosis Brief History of Present Illness: 65yo who presented to the hospital with shortness of breath. Patient has a history of tobacco abuse. Patient with a history of COPD exacerbation. Patient is on 2 to 3 L of oxygen. She follows up routinely but she has also has some issues with some chest pain and she stated that they thought she had a stroke in December. She was not able to follow-up because she did not have insurance. She came to the emergency room at this point because of her respiratory status. She is feeling better. She will be admitted to the hospital for COPD exacerbation. Her lactic acid was also severely elevated most likely related to hypoxemia. We will monitor her closely. Hospital Course: Patient was found to have an acute on chronic COPD exacerbation. She was empirically treated with IV antibiotics for possible mild pneumonia as well. Pulmonology, Dr. Licona was consulted. Patient improved and was deemed stable for discharge home. To continue 4 more days of prednisone 10mg twice daily, then back down to 10mg daily 7 more days of antibiotics. Follow up with Dr. Licona in ~1 week. Vital Signs/Physical Exam: Temp Pulse Resp BP Pulse Ox 96.9 F 75 20 150/80 H 96 04/21/21 12:00 04/21/21 12:00 04/21/21 12:00 04/21/21 12:00 04/21/21 12:00 General: Alert, In no apparent distress, Oriented x3 HEENT: Sclerae nonicteric Respiratory: Expiratory wheezes (mild, bilaterally), Other (nonlabored respirations on 3L NC) Cardiovascular: No edema, Regular rate/rhythm Gastrointestinal: Soft and benign, Non-distended, No tenderness Musculoskeletal: No erythema, No tenderness Integumentary: No rashes Neurological: Normal speech, Normal strength at 5/5 x4 extr, Normal affect Laboratory Data at Discharge: WBC 8.60 K/uL (4.3-10.9) 04/21/21 05:39 Hgb 11.6 g/dL (12.0-15.0) L 04/21/21 05:39 Hct 35.7 % (36.0-45.0) L 04/21/21 05:39 Plt Count 281 K/uL (152-406) 04/21/21 05:39 PT 12.2 SECONDS (9.5-12.5) 04/19/21 15:30 INR 1.11 04/19/21 15:30 Sodium 140 mmol/L (136-145) 04/21/21 05:39 Potassium 3.4 mmol/L (3.5-5.1) L 04/21/21 05:39 BUN 9 mg/dL (7-18) 04/21/21 05:39 Creatinine 0.62 mg/dL (0.55-1.3) 04/21/21 05:39 Glucose 126 mg/dL (74-106) H 04/21/21 05:39 Phosphorus 2.9 mg/dL (2.5-4.9) 04/20/21 03:59 Magnesium 2.1 mg/dL (1.8-2.4) 04/21/21 05:39 Total Bilirubin 0.3 mg/dL (0.2-1.0) 04/21/21 05:39 AST 110 U/L (15-37) H 04/21/21 05:39 ALT 139 U/L (12-78) H D 04/21/21 05:39 Alkaline Phosphatase 72 U/L (45-117) 04/21/21 05:39 Triglycerides 70 mg/dL (<150) 04/20/21 03:59 Cholesterol 122 mg/dL (<200) 04/20/21 03:59 HDL Cholesterol 59 mg/dL (40-60) 04/20/21 03:59 Cholesterol/HDL Ratio 2.07 04/20/21 03:59 Home Medications: Albuterol Sulfate [Proventil Hfa] 1 puff IH BID PRN 04/20/21 Aspirin [Aspirin EC] 81 mg PO DAILY 04/20/21 Atorvastatin Calcium [Lipitor] 80 mg PO DAILY 04/20/21 Buspirone HCl 15 mg PO BID 04/20/21 Clopidogrel Bisulfate [Plavix*] 75 mg PO DAILY 04/20/21 Fluticasone [Flovent Hfa 110*] 1 spray IH BID 04/20/21 Fluticasone/Umeclidin/Vilanter [Trelegy Ellipta 100-62.5-25] 1 each IH DAILY 04/20/21 Guaifenesin/Dextromethorphan [Mucus Relief Dm Cough Tablet] 1 each PO BID 04/20/21 Ipratropium/Albuterol Sulfate [Iprat-Albut 0.5-3(2.5) mg/3 ml] 3 ml IH Q6HP PRN 04/20/21 Lamotrigine [Lamictal] 100 mg PO BID 04/20/21 Linagliptin [Tradjenta] 5 mg PO DAILY 04/20/21 Metformin HCl 1,000 mg PO BID 04/20/21 Metoprolol Tartrate 25 mg PO BID 04/20/21 Prednisone [Sterapred Ds] 10 mg PO DAILY 04/20/21 Roflumilast [Daliresp] 500 mcg PO DAILY 04/20/21 Tiotropium [Spiriva Handihaler*] 1 puff IH DAILY 04/20/21 Trazodone HCl 100 mg PO DAILY 04/20/21 Cefdinir [Omnicef] 300 mg PO BID 7 Days #14 capsule 04/21/21 predniSONE [Deltasone*] 10 mg PO BID 4 Days #8 tab 04/21/21 New Medications: predniSONE [Deltasone*] 10 mg PO BID 4 Days #8 tab Cefdinir [Omnicef] 300 mg PO BID 7 Days #14 capsule Physician Discharge Instructions: Patient was found to have COPD exacerbation. She was empirically treated with IV antibiotics for possible mild pneumonia as well. Pulmonology, Dr. Licona was consulted. Patient improved and was deemed stable for discharge home. To continue 4 more days of prednisone 10mg twice daily, then back down to 10mg daily 7 more days of antibiotics. Follow up with Dr. Licona in ~1 week. Diet: ADA Activity: Ad darby Followup: Alonso Licona MD [ACTIVE - CAN ADMIT] - Selam Platt RN [Primary Care Provider] - Time spent managing pt's care (in minutes): 45
[2021-04-21] MEDS: NA CHLORIDE 0.9% 1,000 ML IV SCH (14:00)
--- NOTE | 2021-04-21 14:48 | CON ---
Date of Consultation: 04/21/2021 Reason For Consultation: Atypical chest pain. History Of Present Illness: Ms. Reyes is 65, used to be on hospice, although recently had severe CO PD and emphysema, diabetes, hypertension, dyslipidemia, depression, and coronary artery disease. She is status post PCI in the past. She is here for COPD exacerbation. Sepsis was ruled out. She does have some chest pain that is mid epigastric, nonradiating and nonexertional. Usually gets worse whe n she takes a deep breath. Denied PND, orthopnea, pedal edema, palpitations, syncope, fever or chill s. Her MT has been ruled out. Her BNP is 1509. She had an echocardiogram in December 2020. She alston s diastolic congestive heart failure grade 1 with an ejection fraction of 58%. Past Medical History: Negative. Allergies: NONE. Review of Systems: Negative. Social History: Unremarkable. Family History: Negative. Medications: At home include aspirin, Lipitor, inhalers, Plavix, Tradjenta, metformin, metoprolol, a nd prednisone. Physical Examination: General: She is much older than stated age. As far as her appearance, she was in no acute distress. Alert and oriented x3. Vital Signs: Stable, afebrile, sinus rhythm. Blood pressure 164/83. HEENT: Negative. Neck: Supple with no bruit. Chest: Revealed expiratory wheezing. Cardiac: Revealed a regular rhythm and rate. No murmurs, gallops, or rubs. Abdomen: Benign. Extremities: Revealed no clubbing, cyanosis, or edema. Diagnostic Data: As stated earlier. Impression And Plan: 1.[id number] COPD exacerbation. 2.Palpitations. We have not seen any significant arrhythmias here. We will just observe. Continue metoprolol. 3.Diabetes. 4.Hypertension. 5.Dyslipidemia. 6.Depression. 7.Coronary artery disease, status post intervention at one point, had an atypical chest pain. Ms. Reyes' COPD makes it very difficult for us to do any chemical stress test because of risk of res piratory arrest from Lexiscan or adenosine or dobutamine. The only workup she will need is a heart c atheterization only if her symptoms become worse. At this point, I would prefer medical therapy. No further cardiac workup. She just had a normal echo in December 2020. I will discuss the case with Dr. Riley. She can go home whenever it is okay with Dr. Riley and Dr. Licona. ERNIE/ALEKS Voice ID: [id number] Report ID: [id number]
== END 2021-04-21 14:30 | disposition home or self-care (01) | DRG 190 ==
LOC: ER 14:22 → ERHOLD 17:49 → 4TH 19:36
PROVIDERS: ADMIT Hospitalist; ATTEND Hospitalist
DX: J43.9 Emphysema, unspecified (principal); J18.9 Pneumonia, unspecified organism; E87.2 Acidosis; I50.32 Chronic diastolic (congestive) heart failure; I11.0 Hypertensive heart disease with heart failure; E11.9 Type 2 diabetes mellitus without complications; E78.5 Hyperlipidemia, unspecified; I25.10 Atherosclerotic heart disease of native coronary artery without angina pectoris; F32.A Depression, unspecified; F41.9 Anxiety disorder, unspecified; F17.210 Nicotine dependence, cigarettes, uncomplicated; R00.2 Palpitations; R09.02 Hypoxemia; Z95.5 Presence of coronary angioplasty implant and graft; Z88.8 Allergy status to other drugs, medicaments and biological substances; Z99.81 Dependence on supplemental oxygen; Z79.82 Long term (current) use of aspirin; Z79.84 Long term (current) use of oral hypoglycemic drugs; Z79.899 Other long term (current) drug therapy; Z79.02 Long term (current) use of antithrombotics/antiplatelets; Z79.52 Long term (current) use of systemic steroids; Z86.73 Personal history of transient ischemic attack (TIA), and cerebral infarction without residual deficits; Z20.822 Contact with and (suspected) exposure to COVID-19
CPT/HCPCS: 0240U; 36415; 71045; 80048; 80053; 80061; 80076; 81003; 81015; 83605; 83735; 83880; 84100; 84145; 84443; 84484; 85025; 85610; 87040; 87077; 87086; 87088; 87186; 87205; 93005; 93880; 94760; 96365; 96375; 99285; J0456; J1650; J2543; J2930; J3475; J7030; J7040; J7050

== ENCOUNTER 2021-07-14 19:40 | Emergency (ER) | payer OTHER ==
--- OUTSIDE RECORDS SUMMARY | 2021-07-14 19:44 | XMS REPORT | Continuity of Care Document ---
:1955 Author Organization [facility] t Address [address] [place] [address] Care Team Providers Name Role Phone ROSITA Sonali [facility] Primary Care Physic porsha Unavailable Doctor Unassigned, Name Attending Clinician Unavailable Filippo Attending Clinician Luiz FUNEZ JR Attending Clinician Unavailable Clifford Mike MD Attending Clinician Meghan Monae MD Attending Clinician Artie Echeverria Attending Clinician Clifford MIKE Attending [...] ity of syndrome) syndrome[place] [address] [place] [address] SOB SOB Disease Active 2019-02 Univers (shortness (shortness 1-19 it y of of breath) [place] breath[place] [address] [place] [address] No known No known Disease Unive rs active active ity of problems problems [facility] Allergies, Adverse Reactions, Alerts Allergy Allergy Status Severity Reaction(s) Onset Inactive Treating Comm ents Source Name Type Date Date Clinician DIPHENHY DRUG Active Anxiety Univers DRAMINE INGREDI 6-18 ity of 00:00: [place] 00 Medical Branch Diphenhy Propensi Active Anxiety Unive rs dramine ty to 618 ity of adverse 00:00: [place] reaction 00 Medical s Branch NO KNOWN Drug Active Univers ALLERGIE Class ity of S [place] [facility] [place] Social History Social Habit Start Date Stop Date Quantity Comments Source History of tobacco Cigarette Smoker University of use [facility] Sex Assigned At Universit y of [facility] Branch Exposure to Not sure [facility] SARS-CoV-2 (event) [facility] Branch Cigarettes smoked 2019-12-28 2019-12-28 Univers ity of current (pack per 00:00:00 00:00:00 [facility] edical ) - Reported Branch Cigarette 2019-12-28 2019-12-28 University of pack-years 00:00:00 00:00:00 [facility] Tobacco use and 2019-12-28 2019-12-28 Never used Universit y of exposure 00:00:00 00:00:00 [facility] Branch Alcohol intake 2019-12-28 2019-12-28 Lifetime University of 00:00:00 00:00:00 non-drinker [place] [facility] (finding) Branch History SDOH 2019-12-28 2019-12-28 1 University o f Alcohol Frequency 00:00:00 [facility]00:[facility] SDOH 2019-12-28 2019-12-28 99 University o f Alcohol Std Drinks 00:00:00 00:00:00 [facility] Branch History SDOH 2019-12-28 2019-12-28 1 University o f Alcohol Binge 00:00:00 00:00:00 [place] [facility] Smoking Status Start Date Stop Date Source Current every day smoker 2019-12-28 00:00:00 Uni versity of [facility] Medications Ordered Filled Start Stop Current Ordering Indication Dosage Frequency Signature Comments Components Source Medication Medication Date Date Medication? Clinician (SIG) Name Name metFORMIN 2019-02 Yes 500mg Take 500 Uni vers 500 mg 1-21 mg by ity of tablet 20:14: mouth 2 [place] (two) Medical times Branch daily with meals. traZODone 2019-02 Yes 150mg Take 150 Uni vers 100 mg 1-21 mg by ity of tablet 20:14: mouth at [place] 09 bedtime. Medical Branch busPIRone 2019-02 Yes 7.5mg [...] Puff 2 ity of 44 20:14: (two) [place] mcg/actuati 09 times Medical on inhaler daily. Branch albuterol 2019-02 Yes 2{puff} Inhale 2 U nivers (PROVENTIL 1-21 Puffs ity of HFA) 90 20:14: every 6 [place] mcg/actuati (six) Medical on inhaler hours as Branc h needed for Wheezing or Shortness of Breath. atorvastati 2019-02 Yes 80mg Take 80 mg Univers n (LIPITOR) 1-21 by mouth ity of 80 mg 20:14: at [place] [address] bedtime. Medical Branch mupirocin 2 2019-02 Yes Apply to U nivers % ointment 1-21 area(s) 2 ity of 20:14: (two) [place] times Medical daily. Branch metoprolol 2019-02 Yes [...] by ity of tablet 20:14: mouth at [place] [address] bedtime. Medical Branch busPIRone 2019-02 Yes 7.5mg [...] Puff 2 ity of 44 20:14: (two) [place] mcg/actuati 09 times Medical on inhaler daily. Branch albuterol 2019-02 Yes 2{puff} Inhale 2 U nivers (PROVENTIL 1-21 Puffs ity of HFA) 90 20:14: every 6 [place] mcg/actuati (six) Medical on inhaler hours as Branc h needed for Wheezing or Shortness of Breath. atorvastati 2019-02 Yes 80mg Take 80 mg Univers n (LIPITOR) 1-21 by mouth ity of 80 mg 20:14: at [facility] 09 bedtime. Medical Branch mupirocin 2 2019-02 Yes Apply to U nivers % ointment 1-21 area(s) 2 ity of 20:14: (two) [place] [address] times Medical daily. Branch metoprolol 2019-02 Yes [...] by ity of tablet 20:14: mouth at [place] bedtime. Medical Branch busPIRone 2019-02 Yes 7.5mg [...] Until Discontinu ed, Routine clopidogreL 2019-02 Yes [id number] 75mg Take 1 Univers 75 mg 1-21 tablet by ity of tablet 00:00: mouth [place] 00 daily. Medical Branch aspirin 81 2019-02 Yes [id number] 81mg Take 1 Univers mg chewable 1-21 tablet by ity of tablet 00:00: mouth [place] 00 daily. Medical Branch predniSONE 2019-02 Yes [id number] 40mg Take 2 U nivers 20 mg 1-21 tablets by ity of tablet 00:00: mouth [place] 00 daily. Medical Branch clopidogreL 2019-02 Yes [id number] 75mg Take 1 Univers 75 mg 1-21 tablet by ity of tablet 00:00: mouth [place] 00 daily. Medical Branch aspirin 81 2019-02 Yes [id number] 81mg Take 1 Univers mg chewable 1-21 tablet by ity of tablet 00:00: mouth [place] 00 daily. Medical Branch predniSONE 2019-02 Yes [id number] 40mg Take 2 U nivers 20 mg 1-21 tablets by ity of tablet 00:00: mouth 00 daily. Medical Branch aspirin 81 2019-02 Yes [id number] 81mg Take 1 Univers mg chewable 1-21 tablet by ity of tablet 00:00: mouth 00 daily. Medical Branch clopidogreL 2019-02- No 75mg Take 75 mg Univers 75 mg 02-27 by mouth ity of tablet 22:51: 00:00 daily. [place] 35 :00 Medical Branch clopidogreL 2019-02- No Oral, Univ ers (PLAVIX) 02-27 TITRATE - ity o f tablet 21:25: 21:25 FOR [place] 13 :13 PROCEDURE Medical USE, 1 Branch dose, Starting Wed12/29/19 at 1525, Until Wed12/29/19 at 1525, Routine ticagrelor 2019-02- No Oral, Unive rs (BRILINTA) 02-27 TITRATE - ity of tablet 20:57: 20:57 FOR [place] 39 :39 PROCEDURE Medical USE, 1 Branch [...] Until Wed12/29/19 at 1437, Routine FENTanyl PF 2019-02 2020- No Slow IV Un destiny (SUBLIMAZE -20 - Push, ity of (PF)) 20:33: 20:33 TITRATE - [place] injection 00 :00 FOR Medical PROCEDURE Branch USE, 1 dose, Starting Wed12/29/19 at 1433, Until Wed12/29/19 at 1433, Routine midazolam 2019-02 2020- No IV Push, Uni vers (VERSED) -28 12- TITRATE - ity o f injection 20:33: [...] First dose [place] mg 00 on [facility] 12/28/19 Branch at 2000, Until Discontinu ed, Routine predniSONE 2019-02 Yes [id number] 40mg Take 2 U nivers 20 mg 1-20 tablets by ity of tablet 00:00: mouth [place] 00 daily. Medical Branch clopidogreL 2019- Yes [id number] 75mg Take 1 Univers 75 mg 1-20 tablet by ity of tablet 00:00: mouth [place] 00 daily. Medical Branch predniSONE 2019-02 2020- No [id number] 40mg Take 2 Univers 20 mg 1-20 11-20 tablets by ity of tablet 00:00: 00:00 mouth [place] 00 :00 daily. Medical Branch predniSONE 2019-02 2020- No [id number] 40mg Take 2 Univers 20 mg 02-27 tablets by ity of tablet 00:00: 00:00 mouth [place] 00 :00 daily for Medical 4 days. Branch atorvastati 2019-02- No 40mg 40 mg, Uni vers n (LIPITOR) 02-26 Oral, QPM, i ty of tablet 40 23:00: 02:01 First dose [place] mg 00 :46 on [facility] Medical 12/28/19 Branch at 1700, Until [...] 12/28/19 Bran ch mL at 1245, Routine
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 Restricted medication : DEJAN GONSALEZ Saline 2019-02- No 6mL 6 mL, Univers Bubble 02-26 Injection, ity of Study 17:33: 22:27 SEE-INSTRU [place] 16 :16 CTIONS, 2 Medical doses, Branch Starting [facility] 12/28/19 at 1133, Until Wed12/29/19 at 1627, Routine Saline 2019-02 Yes 6mL 6 mL, Univers Bubble 02-26 Injection, ity of Study 17:33: SEE-INSTRU [place] 14 CTIONS, 2 Medical doses, Branch Starting [facility] 12/28/19 at 1133, Until Discontinu ed, Routine clopidogreL 2019-02 Yes 75mg 75 mg, Univ ers (PLAVIX) 02-26 Oral, ity of tablet 75 15:00: DAILY, [place] mg 00 First dose Medical on [facility] Branch 12/28/19 at 0900, Until Discontinu ed, Routine
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 Restricted medication : LEXY MONAE aspirin 2019-02 Yes 81mg 81 mg, Univers chewable 02-26 Oral, ity of tablet 81 15:00: DAILY, [place] mg 00 First dose Medical on [place] Branch 12/28/19 at 0900, Until Discontinu ed, Routine predniSONE 2019-02- No 40mg 40 mg, Univ ers (DELTASONE) 02-26 Oral, ity of tablet 40 15:00: 14:59 DAILY, 5 [place] as mg 00 :00 doses, Medical First dose Branch on [facility] 12/28/19 at 0900, Last dose on 01/01/20 at 0900, Routine aspirin 2019-02- No 324mg 324 mg, Unive rs chewable 02-26 Oral, ity of tablet 324 15:00: 08:41 DAILY, [place] mg 00 :12 First dose Medical on [place] Branch 12/28/19 at 0900, Until Discontinu ed, Routine metoprolol 2019-02 Yes 12.5mg 12.5 mg, U nivers tartrate 02-26 Oral, BID, ity o f (LOPRESSOR) 14:00: First dose [place] half tablet 00 on [facility] Medica l 12.5 mg 12/28/19 Branch at 0800, Until Discontinu ed, Routine heparin 2019-02 No 12U/kg/ 12 Univer s 25,000 02-26 h Units/kg/h ity of Units/250 12:55: 22:27 r ?58.9 kg [place] mL 58 :16 (7.068 Medical (Premixed mL/hr, Branch Bag) in rounded to 0.45 % NS 7.07 mL/hr), IV Infusion, TITRATE, Parameters in Admin. Instr., Starting [facility] 12/28/19 at 0655
CA UTION - [...] e, Dosing and Testing: &nbs p;FOR [facility], [facility], AND [facility] C[facility]USES ONLY &nbs p; - [...] Push, Branc h Units ONCE, 1 dose, [place] 12/28/19 at 0600, Routine albuterol 2019-02 Yes 2.5mg 2.5 mg, Univ ers (PROVENTIL) 02-26 Inhalation it y of 2.5 mg /3 10:00: , Q4H, [place] mL (0.083 00 First dose Medi piedad %) on [facility] Branch nebulizer 12/28/19 solution at 0400, 2.5 mg Until Discontinu ed, Routine ipratropium 2019-02 Yes .5mg 0.5 mg, Uni vers (ATROVENT) 02-26 Inhalation ity of 0.02 % 10:00: , Q4H, [place] nebulizer 00 First dose Medi piedad solution on [facility] Branch 0.5 mg 12/28/19 at 0400, [...] 02-26 Oral, ity of (TYLENOL) 08:36: Q6HPRN, [place] tablet 650 38 Starting Medic al mg [facility] Branch 12/28/19 at 0236, Until Discontinu ed, Routine, Pain (scale 1-3) nicotine 2019-02 Yes 1{patch 1 Patch, Un destiny (NICODERM) 02-26 } Topical, ity o f 21 mg/24 hr 06:15: Administer [place] patch 1 00 over 24 Medical Patch Hours, Branch Q24H, First dose on [place] 12/28/19 at 0015, Until Discontinu ed, Routine iohexol 2019-02 2020- No 100mL 100 mL, Unive rs (OMNIPAQUE 02-26 Intravenou it y of 350 05:00: 05:00 s, ONCE, 1 [place] BULK-100 00 :00 dose, Wed Medica l mL) 12/27/19 Branch injection at 2300, 100 mL Routine methylPREDN 2019-02- No 40mg 40 mg, IV Univers ISolone sod 02-26 Piggyback, i ty of succ 02:45: 01:47 ONCE, 1 [place] (SOLU-MEDRO 00 :00 dose, Wed Med ical L (PF)) 12/27/19 Branch injection at 2045, 40 mg STAT metoprolol 2019-02 2020- No [id number] 12.5mg Take 0.5 Univers tartrate 25 02-26 tablets by i ty of mg tablet 00:00: 00:00 mouth 2 [place] 00 :[place] (two) Medical times Branch daily. albuterol-i 2019-02 2020- No [id number] 1{puff} Inhale 1 Univers pratropium -19 11-19 Puff 4 ity of 20-100 00:00: 00:00 (four) [place] mcg/actuati 00 :00 times Medical on inhaler daily. [place] metoprolol 2019-02- No [id number] 12.5mg Take 0.5 Univers tartrate 25 02-26-19 tablets by i ty of mg tablet 00:00: 00:00 mouth 2 [place] 00 :[place] (two) Medical times [place] daily. metoprolol 2019-02- No [id number] 12.5mg Take 0.5 Univers tartrate 25 02-26-19 tablets by i ty of mg tablet 00:00: 00:00 mouth 2 [place] 00 :00 (two) Medical times [place] daily. aspirin 2019- No 324mg 324 mg, Unive rs chewable 07-2618 Oral, ity of tablet 324 22:30: 21:42 ONCE, 1 [place] mg 00 :00 dose, [facility] 07/27/19 at Branch 1730, Routine No known No Univers medications ity of [facility] Vital Signs Vital Name Observation Time Observation Value Comments Source Systolic blood 2019-12-30 135 mm[Hg] University of pressure 17:24:00 [facility] Diastolic blood 2019-12-30 72 mm[Hg] University o f pressure 17:24:00 [facility] Heart rate 2019-12-30 78 /min University 17:24:00 [facility] Body temperature 2019-12-30 35.61 [place] University 17:24:00 [facility] Respiratory rate 2019-12-30 18 /min University of 17:24:00 [facility] Oxygen saturation 2019-12-30 91 /min [facility] in Arterial blood 17:24:00 [facility] by Pulse oximetry [place] Body weight 2019-12-30 57.924 kg pt's actual wt Street of 10:03:00 on regular [facility] scale [place] BMI 2019-12-30 20.61 kg/m2 [facility] 10:03:00 [facility] Body height 2019-12-29 167.6 cm [facility] 20:18:00 [facility] Systolic blood 2019-12-30 135 mm[Hg] University of pressure 17:24:00 [place] [facility] Diastolic blood 2019-12-30 72 mm[Hg] University o f pressure 17:24:00 [place] [facility] Heart rate 2019-12-30 78 /min University of 17:24:00 [facility] Branch Body temperature 2019-12-30 35.61 [place] University of 17:24:00 [place] [facility] Respiratory rate 2019-12-30 18 /min University of 17:24:00 [facility] Oxygen saturation 2019-12-30 91 /min University of in Arterial blood 17:24:00 [place] Medi piedad by Pulse oximetry Branch Body weight 2019-12-30 57.924 kg pt's actual wt University of 10:03:00 on regular [place] Medical scale Branch BMI 2019-12-30 20.61 kg/m2 University of 10:03:00 [facility] Branch Body height 2019-12-29 167.6 cm University of 20:18:00 [facility] Branch Systolic blood 2019-07-27 120 mm[Hg] University of pressure 21:35:00 [facility] Branch Diastolic blood 2019-07-27 79 mm[Hg] University o f pressure 21:35:00 [place] [facility] Heart rate 2019-07-27 93 /min University of 21:35:00 [facility] Respiratory rate 2019-07-27 12 /min University of 21:35:00 [facility] Oxygen saturation 2019-07-27 95 /min University of in Arterial blood 21:35:00 [place] Medi piedad by Pulse oximetry Branch Body temperature 2019-07-27 37.5 [place] University of 21:15:00 [place] [facility] Body height 2019-07-27 167.6 cm University of 21:15:00 [place] [facility] Body weight 2019-07-27 55.792 kg University of 21:15:00 [facility] Branch BMI 2019-07-27 19.85 kg/m2 University of 21:15:00 [facility] Systolic blood 2019-07-27 120 mm[Hg] University of pressure 21:35:00 [facility] Diastolic blood 2019-07-27 79 mm[Hg] University o f pressure 21:35:00 [place] [facility] Heart rate 2019-07-27 93 /min University of 21:35:00 [facility] Respiratory rate 2019-07-27 12 /min University of 21:35:00 [facility] Oxygen saturation 2019-07-27 95 /min University of in Arterial blood 21:35:00 [place] Medi piedad by Pulse oximetry Branch Body temperature 2019-07-27 37.5 [place] :15:00 [facility] Body height 2019-07-27 167.6 cm [facility] :15:00 [facility] Body weight 2019-07-27 55.792 kg [facility] :15:00 [facility] BMI 2019-07-27 19.85 kg/m2 [facility] 21:15:00 [facility] Procedures Procedure Date / Time Performing Clinician Source Performed EXTERNAL PROVIDER 2020-01-17 06:01:00 Doctor Unassigned, [facility] RECORDS Name Medical [place] POCT GLUCOSE 2019-12-30 15:25:00 [facility] (AUTOMATED) Meghan Epperson [facility] MAGNESIUM 2019-12-30 10:10:00 [facility] BASIC METABOLIC PANEL 2019-12-30 10:10:00 [facility] (NA, K, CL, CO2, Medical Branch GLUCOSE, BUN, CREATININE, CA) CBC WITH DIFF 2019-12-30 10:10:00 [facility] POCT GLUCOSE 2019-12-30 01:50:00 [facility] (AUTOMATED) Meghan taniya [facility] POCT GLUCOSE 2019-12-29 23:32:00 [facility] (AUTOMATED) Meghan Epperson [facility] HB ECG ROUTINE & RHYTHM 2019-12-29 14:11:36 Mariya [facility] POCT GLUCOSE 2019-12-29 14:00:00 [facility] (AUTOMATED) Meghan Epperson [facility] MAGNESIUM 2019-12-29 10:58:00 [facility] BASIC METABOLIC PANEL 2019-12-29 10:58:00 [facility] (NA, K, CL, CO2, Medical Branch GLUCOSE, BUN, CREATININE, CA) ACTIVATED PARTIAL 2019-12-29 10:58:00 Mariya [facility] THRMPLAS CATHY [facility] EXTERNAL PROVIDER 2019-12-29 06:01:00 Doctor Unassigned, No [facility] RECORDS Name Medical [place] POCT GLUCOSE 2019-12-29 04:16:00 Lexy Monae [facility] (AUTOMATED) Meghan Mora Bran ch ACTIVATED PARTIAL 2019-12-29 00:06:00 Mariya [facility] TROPONIN I 2019-12-28 19:46:00 Jesus Paz [facility] LIPID PANEL 2019-12-28 19:46:00 Mariya [facility] ([id number])(TOTAL Medical Branch CHOLESTEROL, TRIGLYCERIDES, HDL) ECHO ROUTINE W/DOPPLER 2019-12-28 16:44:30 Willian Meraz [facility] COLOR [facility] HB ECG ROUTINE & RHYTHM 2019-12-28 13:42:07 Mariya [facility] PROTHROMBIN TIME / INR 2019-12-28 12:24:00 Mariya [facility] ACTIVATED PARTIAL 2019-12-28 12:24:00 Mariya [facility] TROPONIN I 2019-12-28 10:08:00 Mariya [facility] f [facility] CT CHEST PULMONARY 2019-12-28 04:44:55 Minna Mike [facility] ANGIOGRAM Medical Branch XR CHEST 1 VW 2019-12-28 02:07:34 Minna Mike [facility] [place] COVID-19 (ID NOW RAPID 2019-12-28 01:50:00 Minna Mike [facility] TESTING) Medical Branch HB ECG ROUTINE & RHYTHM 2019-12-28 01:49:31 [facility]na [facility]OP[facility] 2019-12-28 01:49:00 Minna Mike [facility] [place] THYROID STIMULATING 2019-12-28 01:49:00 Willian Meraz [facility] HORMONE [facility] Branch BASIC METABOLIC PANEL 2019-12-28 01:49:00 Minna Mike [facility] (NA, K, CL, CO2, Medical Branch GLUCOSE, BUN, CREATININE, CA) COMP. METABOLIC PANEL 2019-12-28 01:49:00 Minna Mike [facility] ([id number]) Medical Branch CBC WITH DIFF 2019-12-28 01:49:00 Minna Mike [facility] [place] GLYCOSYLATED HEMOGLOBIN 2019-12-28 01:49:00 Willian Meraz [facility] (A1C) Medical Branch N-TERMINAL PRO-BNP 2019-12-28 01:49:00 Willian Meraz [facility] XR CHEST 1 VW 2019-07-27 22:14:30 Soila Villar [facility] COVID-19 (ID NOW RAPID 2019-07-27 21:43:00 [facility] Branch TROPONIN I 2019-07-27 21:38:00 Soila Villar [facility] HEPATIC FUNCTION PANEL 2019-07-27 21:38:00 Soila Villar [facility] ([id number]) (ALB,T.PRO,BILI Medical Branch T,BU/BC,ALT,AST,ALK PHOS) BASIC METABOLIC PANEL 2019-07-27 21:38:00 Soila Villar [facility] (NA, K, CL, CO2, Medical Branch GLUCOSE, BUN, CREATININE, CA) CBC WITH DIFFERENTIAL 2019-07-27 21:38:[address] [facility] PROTHROMBIN TIME / INR 2019-07-27 21:38:00 Soila Villar [facility] N-TERMINAL PRO-BNP 2019-07-27 21:38:00 Soila Villar [facility] EKG-12 LEAD 2019-07-27 21:21:22 Soila Villar [facility] NOTICE OF PRIVACY 2019-07-27 20:58:21 Doctor Unassigned, No [facility] PRACTICES Name Medical Branch Encounters Start End Encounter Admission Attending Care Care Encounter Source Date/Time Date/Time Type Type Clinicians Facility Department ID 2020-01-17 2020-01-17 Orders Doctor NICHOLE [id number] 00:00:00 00:00:00 Only UnassignedASHLEY [id number] [place] [facility] [id number] 2020-01-17 2020-01-17 Orders Doctor NICHOLE [id number] Univers 00:00:00 00:00:00 Only Unassigned, ASHLEY [id number] ity of [place] [facility] [id number] Nabil as [id number] [facility] 009 Branch 2020-01-01 2020-01-01 Transition BarkleyEarnestoscar [id number] 00:00:00 00:00:00 of Care Sarah Rossy [id number] [place] 4.2.7.2.686 [id number] [facility] 2020-01-01 2020-01-01 Transition Barkley Ree [id number] Univers 00:00:00 00:00:00 of Care Sarah Carvalho [id number] ity of [place] 4[place]2.7.2.686 [place] [id number] [facility] 403 Branch 2019-12-31 2019-12-31 Outpatient Piedad FUNEZ [facility] [id number] Univers 16:00:00 16:00:00 WILLIAN [id number] ity of [facility] 2019-12-27 2019-12-30 [place], [place] Ol[place] 1.2.840. [id number] 18:54:00 14:13:00 Encounter Lexy Monae [id number] [facility] [id number] [facility] 2019-12-27 2019-12-30 [facility] 1.2.840. [id number] Univers 18:54:00 14:13:00 Encounter Lexy Monae [id number] ity of David Florian Artie [facility] 4.2.7.2.68 6 [place] [id number] [facility] 090 Branch 2019-12-27 2019-12-27 Emergency X [facility] ERT [id number] Univers 18:54:00 18:54:00 MINNA ity [facility] 2019-07-27 2019-07-27 Emergency [facility] [id number] 16:26:45 18:20:00 Soila Espinosa [id number] [place] 4.2.7.2.686 [place] [id number] [facility] 2019-07-27 2019-07-27 Emergency [facility] [id number] [facility] 16:26:45 18:20:00 Soila Espinosa [id number] ity [facility] 4.2.7.2.686 [facility] [id number] [place] [address] Branch 2019-07-27 2019-07-27 Emergency X [facility] [id number] Univers 16:26:45 18:20:00 [facility] Results Test Description Test Time Test Comments Results Result Comments Source LACTIC ACID, PLASMA 2021-07-09 10:45:50 Test Item Value Reference Range Interpretation Comme nts LACTIC ACID, PLASMA (test 27.1 MG/DL 4.5-19.8 H UNLESS OTHERWISE INDICATED, code = 2056) ALL TESTING PER FORMED ATCLINICAL PATHOLOGY LABOR [employer]. [address] [place] [id number] LABORATORY DIRE CTOR: TITA PARIKH M.D. CLIA NUMBER [id number] [facility] [place]. [id number] HEMOGLOBIN [id number] 05:02:08 Test Item Value Reference Range Interpretation Comments HEMOGLOBIN A1c (test 8.3 % 4.2-5.6 H [place] DIABETES code = 24218) ASSOCIATION [employer] FOR HGB A1C: PREDIABETES/INC REASED RISK . . . . . . . 5.7 -6.4% DIAGNOSIS OF D IABETES . . . . . . . . . > =6.5% WITH CONFIRM ATION OR APPROPRIATE SYM PTOMS NOTE: ASSAY MAY BE AFFECTED BY HEMOGLOBINOP ATHIES (SICKLE BARRERA L ANEMIA, S-C DISEASE, OTHERS ) OR ARTIFICIALLY LO WERED BY DECREASED RED C ELL SURVIVAL (HEMOLYTIC ANEM IAS, BLOOD LOSS, ETC.) . CONSIDER ALTERNATE TESTI NG OR LABORATORY CONS ULTATION. COMPREHENSIVE METABOLIC [id number] 03:45:06 Test Item Value Reference Range Interpretation Comments GLUCOSE (test code = 397 MG/DL 70-99 H 2216) BUN (test code = 21 MG/DL 8-2207) CREATININE (test 0.75 MG/DL 0.60-1.30 code = 221) eGFR (2020 CKD-EPI) 88 ML/MIN/1.73 >60 (test code = 95820) CALC BUN/CREAT (test 28 RATIO 6-28 code = 2235) SODIUM (test code = 140 MEQ/L [phone]) POTASSIUM (test code 4.2 MEQ/L 3.5-5.4 = 2227) CHLORIDE (test code 95 MEQ/L 95-107 = 2214) CARBON DIOXIDE (test 32 MEQ/L 19-31 H code = 220) CALCIUM (test code = 10.0 MG/DL 8.5-10.5 2208) PROTEIN, TOTAL (test 6.7 G/DL 6.1-8.3 code = 2228) ALBUMIN (test code = 4.4 G/DL 3.5-5.2 2200) CALC GLOBULIN (test 2.3 G/DL 1.9-3.7 code = 2239) CALC A/G RATIO (test 1.9 RATIO 1.0-2.6 code = 2233) BILIRUBIN, TOTAL 0.3 MG/DL See_Comment [Automated message] (test code = 2206) The syste m which generated this result transmit shikha reference range : <=1.2. The refe rence range was not u sed to interpret th is result as normal/abnormal . ALKALINE PHOSPHATASE 73 U/L 40-140 (test code = 2203) AST (test code = 19 U/L 9-40 2217) ALT (test code = 25 U/L 5-40 2218) LIPID [id number] 03:45:06 Test Item Value Reference Range Interpretation Comments CHOLESTEROL (test 134 MG/DL <200 code = 2210) TRIGLYCERIDES (test 81 MG/DL <150 code = 2232) HDL CHOLESTEROL (test 61 MG/DL >39 code = 2220) CALC LDL CHOL (test 57 MG/DL <100 NOTE: C ALCULATED LDL code = 2237) IS BASED ON LAZARO-CHARLTON METHOD WHICHINCLUDES ADJUSTABLE TRIGLYCERIDE:VL DL CHOLESTEROL RAT IO.THIS FACTOR VARIES B Y MEASURED TRIGLY CERIDE AND NON-HDLCHOL ESTEROL CONCENTRATIONS WITH INCREASED CALCU LATED LDL SEENIN HIGH ER TRIGLYCERIDE OR LOWER NON-HDL SPECIME NS. FOR MOREINFORMATION , SEE CLIENT ANNOUNCE MENT AT [email or web address] [email or web address] LDL/HDL 0.93 RATIO <3.22 (test code = 223) LACTIC ACID, [id number] 15:11:52 Test Item Value Reference Range Interpretation Comments LACTIC ACID, 11.7 MG/DL 4.5-19.8 UNLESS O THERWISE PLASMA (test code INDICATED, ALL TESTING = 2056) [facility] [employer]. [address] [place] [address] 78 4 LABORATORY DIRE CTOR: TITA YOST M.D. CLIA NUMBER [id number] [place]. [id number] HEMOGLOBIN [id number] 03:44:50 Test Item Value Reference Range Interpretation Comments HEMOGLOBIN A1c (test 7.5 % 4.2-5.6 H [facility] code = 91328) ASSOCIATION IDELINES FOR HGB A1C: PREDIABETES/INC REASED RISK . . . . . . . 5.7 -6.4% DIAGNOSIS OF D IABETES . . . . . . . . . > =6.5% WITH CONFIRM ATION OR APPROPRIATE SYM PTOMS NOTE: ASSAY MAY BE AFFECTED BY HEMOGLOBINOP ATHIES (SICKLE BARRERA L ANEMIA, S-C DISEASE, OTHERS ) OR ARTIFICIALLY LO WERED BY DECREASED RED C ELL SURVIVAL (HEMOLYTIC ANEM IAS, BLOOD LOSS, ETC.) . CONSIDER ALTERNATE TESTI NG OR LABORATORY CONS ULTATION. COMPREHENSIVE METABOLIC [id number] 03:25:55 Test Item Value Reference Range Interpretation Comments GLUCOSE (test code = 159 MG/DL 70-99 H 2216) BUN (test code = 17 MG/DL 8-2207) CREATININE (test 0.56 MG/DL 0.60-1.30 L code = 2214) eGFR (2020 CKD-EPI) 101 >60 (test code = 31888) ML/MIN/1.73 CALC BUN/CREAT (test 30 RATIO 6-28 H code = 2235) SODIUM (test code = 141 MEQ/L 063-056 7198) POTASSIUM (test code 4.4 MEQ/L 3.5-5.4 = 2227) CHLORIDE (test code 101 MEQ/L 95-107 = 2214) CARBON DIOXIDE (test 25 MEQ/L 19-31 code = 2206) CALCIUM (test code = 9.7 MG/DL 8.5-10.5 2208) PROTEIN, TOTAL (test 6.7 G/DL 6.1-8.3 code = 2229) ALBUMIN (test code = 4.6 G/DL 3.5-5.2 2200) CALC GLOBULIN (test 2.1 G/DL 1.9-3.7 code = 2240) CALC A/G RATIO (test 2.2 RATIO 1.0-2.6 code = 2234) BILIRUBIN, TOTAL <0.2 MG/DL See_Comment [Automated message] (test code = 2207) The syste m which generated this result transmit shikha reference range : <=1.2. The refe rence range was not u sed to interpret th is result as normal/abnormal . ALKALINE PHOSPHATASE 60 U/L 40-140 (test code = 2203) AST (test code = 20 U/L 9-40 2217) ALT (test code = 21 U/L 5-40 2218) LACTIC ACID, [id number] 15:10:19 Test Item Value Reference Range Interpretation Comments LACTIC ACID, 34.5 MG/DL 4.5-19.8 H UNLESS O THERWISE PLASMA (test code INDICATED, ALL TESTING = 2056) PERFORMED [facility] [employer]. [address] [place] [address] 4 LABORATORY DIRE CTOR: TITA YOST M.D. CLIA NUMBER [id number] [place]. [id number] LACTIC ACID, [id number] 13:30:20 Test Item Value Reference Range Interpretation Comments LACTIC ACID, 18.5 MG/DL 4.5-19.8 UNLESS O THERWISE PLASMA (test code INDICATED, ALL TESTING = 2056) PERFORMED [facility] [employer]. [address] [place] [address] 4 LABORATORY DIRE CTOR: TITA YOST M.D. CLIA NUMBER [id number] [place]. [id number] TSH, THIRD [id number] 06:41:17 Test Item Value Reference Range Interpretation Comments TSH, THIRD GENERATION (test code 1.300 UIU/ML 0.400-4.100 = 2821) LIPID [id number] 04:18:20 Test Item Value Reference Range Interpretation Comments CHOLESTEROL (test 125 MG/DL <200 code = 2210) TRIGLYCERIDES (test 167 MG/DL <150 H code = 2232) HDL CHOLESTEROL (test 54 MG/DL >39 code = 2220) CALC LDL CHOL (test 46 MG/DL <100 NOTE: C ALCULATED LDL code = 2237) IS BASED ON LAZARO-CHARLTON METHOD WHICHINCLUDES ADJUSTABLE TRIGLYCERIDE:VL DL CHOLESTEROL RAT IO.THIS FACTOR VARIES B Y MEASURED TRIGLY CERIDE AND NON-HDLCHOL ESTEROL CONCENTRATIONS WITH INCREASED CALCU LATED LDL SEENIN HIGH ER TRIGLYCERIDE OR LOWER NON-HDL SPECIME NS. FOR MOREINFORMATION , SEE CLIENT ANNOUNCE MENT AT [email or web address] [email or web address] RATIO LDL/HDL 0.85 RATIO <3.22 (test code = 2238) COMPREHENSIVE METABOLIC [id number] 04:18:20 Test Item Value Reference Range Interpretation Comments GLUCOSE (test code = 93 MG/DL 70-99 2216) BUN (test code = 15 MG/DL 8-23 2207) CREATININE (test 0.72 MG/DL 0.60-1.30 code = 2214) eGFR (2020 CKD-EPI) 93 ML/MIN/1.73 >60 (test code = 27517) CALC BUN/CREAT (test 21 RATIO 6-28 code = 2235) SODIUM (test code = 143 MEQ/L 844-915 6053) POTASSIUM (test code 3.8 MEQ/L 3.5-5.4 = 2227) CHLORIDE (test code 98 MEQ/L 95-107 = 221) CARBON DIOXIDE (test 29 MEQ/L 19-31 code = 2206) CALCIUM (test code = 9.8 MG/DL 8.5-10.5 2208) PROTEIN, TOTAL (test 6.6 G/DL 6.1-8.3 code = 2229) ALBUMIN (test code = 4.2 G/DL 3.5-5.2 2200) CALC GLOBULIN (test 2.4 G/DL 1.9-3.7 code = 2240) CALC A/G RATIO (test 1.8 RATIO 1.0-2.6 code = 2234) BILIRUBIN, TOTAL 0.3 MG/DL See_Comment [Automated message] (test code = 2207) The syste m which generated this result transmit shikha reference range : <=1.2. The refe rence range was not u sed to interpret th is result as normal/abnormal . ALKALINE PHOSPHATASE 61 U/L 40-140 (test code = 4) AST (test code = 20 U/L 9-40 2217) ALT (test code = 36 U/L 5-40 2218) HEMOGLOBIN [id number] 03:31:34 Test Item Value Reference Range Interpretation Comments HEMOGLOBIN A1c (test 7.8 % 4.2-5.6 H [facility] code = 97442) ASSOCIATION IDELINES FOR HGB A1C: PREDIABETES/INC REASED RISK . . . . . . . 5.7 -6.4% DIAGNOSIS OF D IABETES . . . . . . . . . > =6.5% WITH CONFIRM ATION OR APPROPRIATE SYM PTOMS NOTE: ASSAY MAY BE AFFECTED BY HEMOGLOBINOP ATHIES (SICKLE BARRERA L ANEMIA, S-C DISEASE, OTHERS ) OR ARTIFICIALLY LO WERED BY DECREASED RED C ELL SURVIVAL (HEMOLYTIC ANEM IAS, BLOOD LOSS, ETC.) . CONSIDER ALTERNATE TESTI NG OR LABORATORY CONS ULTATION. POCT GLUCOSE (AUTOMATED)2019-12-30 15:33:00 Test Item Value Reference Range Interpretation Comments POCT GLU (test code = 204 mg/dL 70-110 H Notifi ed Provider [id number]) Lab Interpretation (test Abnormal code = 12684-6) [facility] (NA, K, CL, CO2, GLUCOSE, BUN, CREATININE, CA)2019-12-30 10:50:00 Test Item Value Reference Range Interpretation Comments NA (test code = 137 mmol/L 135-145 7138868047) K (test code = 4.1 mmol/L 3.5-5 7469236951) CL (test code = 103 mmol/L 98-108 6465253550) CO2 TOTAL (test code = 29 mmol/L 23-31 1863591874) AGAP (test code = 2-16 3871260398) BUN (test code = 21 mg/dL 7-23 7534865464) GLUCOSE (test code = 97 mg/dL 70-110 9464355276) CREATININE (test code 0.67 mg/dL 0.5-1.04 = 3589963521) CALCIUM (test code = 9.0 mg/dL 8.6-10.6 8989009276) eGFR Calculation mL/min/1.73m2 (Non-) (test code = 8096506388) eGFR Calculation mL/min/1.73m2 () (test code = 4625125018) JOSHUA (test code = JOSHUA) Association of [...] or urine or abnormalities in imaging tests). [facility] 10:50:00 Test Item Value Reference Range Interpretation Comments MAGNESIUM (test code = 6187416187) 2.2 mg/dL 1.7-2.4 Lab Interpretation (test code = Normal 64332-1) [facility] WITH [id number] 10:26:00 Test Item Value Reference Range Interpretation Comments WBC (test code = See_Comment [Automated 8190-2) message] The sy stem which generated this [...] RDW-SD (test code = 44.0 fL 39-49.9 83773-9) RDW-CV (test code = 12.6 % 12-15.5 788-0) PLT (test code = See_Comment [Automated 777-3) message] The sy stem which generated this result transmitted reference range : 166 - 358 10*3/ ?L. The reference r ramona was not used to interpret this result as normal/abnormal . MPV (test code = 9.7 fL 9.5-12.9 33756-6) NRBC/100 WBC (test See_Comment [Automat ed code = 4396230254) message] The system which generated this result transmitted reference range : 0.0 - 10.0 /100 WBCs. The refer ence range was not u sed to interpret th is result as normal/abnormal . NRBC x10^3 (test code <0.01 See_Comment [Auto mated = 7726162773) message] The s ystem which generated this result transmitted reference range : 10*3/?L. The reference range was not used to interpret this result as normal/abnormal . GRAN MAT (NEUT) % 57.7 % (test code = 770-8) IMM GRAN % (test code 0.20 % = 2042239211) LYMPH % (test code = 31.8 % 736-9) MONO % (test code = 8.1 % 5905-5) EOS % (test code = 1.9 % 713-8) BASO % (test code = 0.3 % 706-2) GRAN MAT x10^3(ANC) 5.12 10*3/uL 1.88-7.09 (test code = 0891289096) IMM GRAN x10^3 (test <0.03 0-0.06 code = 5702409931) LYMPH x10^3 (test code 2.82 10*3/uL 1.32-3.29 = 731-0) MONO x10^3 (test code 0.72 10*3/uL 0.33-0.92 = 742-7) EOS x10^3 (test code = 0.17 10*3/uL 0.03-0.39 711-2) BASO x10^3 (test code 0.03 10*3/uL 0.01-0.07 = 704-7) Lab Interpretation Abnormal (test code = 14461-5) [facility] GLUCOSE (AUTOMATED)2019-12-30 01:52:00 Test Item Value Reference Range Interpretation Comments POCT GLU (test code = 1431251111) 199 mg/dL 70-110 H Lab Interpretation (test code = Abnormal 48155-0) [facility] GLUCOSE (AUTOMATED)2019-12-29 23:34:00 Test Item Value Reference Range Interpretation Comments POCT GLU (test code = 5644019368) 120 mg/dL 70-110 H Lab Interpretation (test code = Abnormal 45164-3) [facility] GLUCOSE (AUTOMATED)2019-12-29 14:02:00 Test Item Value Reference Range Interpretation Comments POCT GLU (test code = 9124225784) 99 mg/dL 70-110 Lab Interpretation (test code = Normal 66312-1) [facility] Metabolic Panel (NA, K, CL, CO2, GLUCOSE, BUN, CREATININE, CA)2019-12-29 11:40:00 Test Item Value Reference Range Interpretation Comments NA (test code = 139 mmol/L 135-145 1682511226) K (test code = 4.2 mmol/L 3.5-5 Slight 4441901401) hemolysis CL (test code = 104 mmol/L 98-108 3911398732) CO2 TOTAL (test code 30 mmol/L 23-31 = 1390862899) AGAP (test code = 2-16 1912931859) BUN (test code = 18 mg/dL 7-23 Slight 5152191458) hemolysis GLUCOSE (test code = 116 mg/dL 70-110 H 0896342096) CREATININE (test code 0.61 mg/dL 0.5-1.04 = 9615701502) CALCIUM (test code = 8.9 mg/dL 8.6-10.6 7358059842) eGFR Calculation mL/min/1.73m2 (Non-) (test code = 4017205663) eGFR Calculation mL/min/1.73m2 () (test code = 7020079101) JOSHUA (test code = JOSHUA) Association of [...] tests). Lab Interpretation Abnormal (test code = 06076-9) [facility] [id number] 11:40:00 Test Item Value Reference Range Interpretation Comments MAGNESIUM (test code = 5884806506) 2.2 mg/dL 1.7-2.4 Lab Interpretation (test code = Normal 16837-7) [facility] (for use with Heparin Drip)2019-12-29 11:21:00 Test Item Value Reference Range Interpretation Comments APTT Patient (test code See_Comment HH [Au tomated message] = 3173-2) The system [employer] generated this result transmitted ref erence range: 26 - 36 Seconds. The reference range was not used to int erpret this result as normal/abnormal . Lab Interpretation (test Abnormal code = 51218-0) [facility] GLUCOSE (AUTOMATED)2019-12-29 04:19:00 Test Item Value Reference Range Interpretation Comments POCT GLU (test code = 8121306412) 115 mg/dL 70-110 H Lab Interpretation (test code = Abnormal 51846-3) [facility] (Total Cholesterol, Triglycerides, HDL) - [id number] 03:03:00 Test Item Value Reference Range Interpretation Comments CHOL (test code = 164 mg/dL 120-200 3111263504) HDL (test code = 61 mg/dL >50 3120879442) HDLC RATIO (test code = See_Comment [Au tomated message] 9766288854) The system [employer] generated this result transmit shikha reference range : <=4.5. The refe rence range was not u sed to interpret th is result as normal/abnormal . TRIG (test code = 63 mg/dL 30-170 8438693511) LDL CHOL (test code = 90 mg/dL See_Comment [Auto mated message] 06627-3) The system [employer] generated this result transmit shikha reference range : <=160. The refe rence range was not u sed to interpret th is result as normal/abnormal . VLDL (test code = 13 mg/dL 5-60 6819523970) Lab Interpretation (test Normal code = 12602-0) [facility] (for use with Heparin Drip)2019-12-29 00:36:00 Test Item Value Reference Range Interpretation Comments APTT Patient (test code See_Comment H [Au tomated message] = 3173-2) The system [employer] generated this result transmitted ref erence range: 26 - 36 Seconds. The reference range was not used to int erpret this result as normal/abnormal . Lab Interpretation (test Abnormal code = 41894-4) [facility] [id number] 21:42:00 Test Item Value Reference Range Interpretation Comments TROPONIN I (test 0.081 ng/mL See_Comment H [Automated code = 9329907974) message] The system which generated this result [...] ? Lab Interpretation Abnormal (test code = 32415-3) [facility]thrombin Time (PT) / [id number] 12:39:00 Test Item Value Reference Range Interpretation Comments PROTIME PATIENT (test See_Comment [Auto mated message] code = 5964-2) The system [employer] [facility] generated this result transmitted ref erence range: 10.1 - 1 2.6 Seconds. The re ference range was not u sed to interpret this result as normal/abnor mal. INR (test code = 6301-6) Nor mal INR <1.1; Warfarin Therap eutic range 2.0 to 3. 0 or 2.5 to 3.5, dep ending upon the indica tions. Lab Interpretation (test Normal code = 63048-7) [facility] TexasaPTT2020-11-19 12:39:00 Test Item Value Reference Range Interpretation Comments APTT Patient (test code = See_Comment [ Automated message] 3173-2) The system [employer] generated this result transmitted ref erence range: 26 - 36 Seconds. The re ference range was not u sed to interpret this result as normal/abnor mal. Lab Interpretation (test Normal code = 54632-0) [facility] TexasTroponin [id number] 11:11:00 Test Item Value Reference Range Interpretation Comments TROPONIN I (test 0.148 ng/mL See_Comment H [Automated code = 4835677624) message] The system which generated this result [...] ? Lab Interpretation Abnormal (test code = 13694-1) [facility] TexasGlycosylated Hemoglobin (A1C)2019-12-28 10:57:00 Test Item Value Reference Range Interpretation Comments HGB A1C (test code = 5.8 % - 4548-4) JOSHUA (test code = JOSHUA) %A1C (NGSP) Interpretation (ADA)4.8-5.6 ? ? Normal or (Non-Diabetic Range)5.7-6.4 ? ? Increased Risk (Pre-Diabetic)>6.5 ?Diabetes Indicated Lab Interpretation Normal (test code = 06089-0) [facility] TexasThyroid Stimulating Hormone (TSH)2019-12-28 10:22:00 Test Item Value Reference Range Interpretation Comments TSH (test code = See_Comment Biotin has been 4880304964) reported to cau se a negative bias, interpret resul ts relative to pat ient's use of biotin. [Automated mess age] The system [employer] generated this result transmitted ref erence range: 0.45 - 4 .70 mIU/L. The refe rence range was not u sed to interpret this result as normal/abnor mal. Lab Interpretation (test Normal code = 16441-5) [facility] TexasN-Terminal [id number] 10:22:00 Test Item Value Reference Range Interpretation Comments NT-proBNP (test code 636 pg/mL See_Comment H [Autom ated = 4078549089) message] The system which generated this result transmitted reference range : <=125. The reference range was not used to interpret this result as normal/abnormal . JOSHUA (test code = JOSHUA) Biotin has been reported to cause a negative bias, interpret results relative to patient's use of biotin. Lab Interpretation Abnormal (test code = 75557-1) [facility] TexasCT CHEST PULMONARY [id number] 05:35:31 No acute pulmonary embolism through the [...] reviewed this study and agree with theabove report.[facility] TexasXR CHEST 1 [id number] 03:07:42 No acute cardiopulmonary abnormality. Preliminary Report [...] reviewed this study and agree with theabove report.[facility] TexasTRPACOOscar [id number] 02:26:00 Test Item Value Reference Range Interpretation Comments TROPONIN I (test 0.048 ng/mL See_Comment H [Automated code = 0269147506) message] The system which generated this result [...] ? Lab Interpretation Abnormal (test code = 89538-2) [facility] TexasCOVID-19 (ID NOW RAPID TESTING)2019-12-28 02:22:00 Test Item Value Reference Range Interpretation Comments SARS-CoV-2 Rapid ID NOW Not Detected Not Detected (test code = 20932-1) JOSHUA (test code = JOSHUA) ID NOW COVID-19 Assay is an isothermal nucleic acid amplification test intended for the qualitative detection of nucleic acid from SARS-CoV-2 viral RNA in nasopharyngeal (SOUND TESTER) specimens. It is used under Emergency Use [...] indicated. Lab Interpretation Normal (test code = 77115-9) [facility]. METABOLIC PANEL (59298)2019-12-28 02:16:00 Test Item Value Reference Range Interpretation Comments NA (test code = 137 mmol/L 135-145 8318882696) K (test code = 3.8 mmol/L 3.5-5 4182064049) CL (test code = 101 mmol/L 98-108 2959625915) CO2 TOTAL (test code = 31 mmol/L 23-31 8090601871) AGAP (test code = 2-16 8943316467) BUN (test code = 18 mg/dL 7-23 0296751398) GLUCOSE (test code = 145 mg/dL 70-110 H 1443249639) CREATININE (test code = 0.55 mg/dL 0.5-1.04 8765044369) TOTAL BILI (test code = 0.4 mg/dL 0.1-1.3 4220497020) CALCIUM (test code = 8.8 mg/dL 8.6-10.6 6835896703) T PROTEIN (test code = 6.7 g/dL 6.3-8.2 8738224648) ALBUMIN (test code = 4.1 g/dL 3.5-5 9379933978) ALK PHOS (test code = 72 U/L 34-122 7505313982) ALTv (test code = 40 U/L 5-35 H 1742-6) AST(SGOT) (test code = 46 U/L 13-40 H 9176681312) eGFR Calculation mL/min/1.73m2 (Non-) (test code = 0026066960) eGFR Calculation mL/min/1.73m2 () (test code = 1855045649) JOSHUA (test code = JOSHUA) Association of [...] tests). Lab Interpretation Abnormal (test code = 97569-6) [facility] METABOLIC PANEL (NA, K, CL, CO2, GLUCOSE, BUN, CREATININE, CA)2019-12-28 02:16:00 Test Item Value Reference Range Interpretation Comments NA (test code = 137 mmol/L 135-145 1848799308) K (test code = 3.8 mmol/L 3.5-5 0640227037) CL (test code = 101 mmol/L 98-108 9538744256) CO2 TOTAL (test code = 31 mmol/L 23-31 6024242078) AGAP (test code = 2-16 3543748285) BUN (test code = 18 mg/dL 7-23 9709067020) GLUCOSE (test code = 145 mg/dL 70-110 H 3575358423) CREATININE (test code = 0.55 mg/dL 0.5-1.04 3668635033) CALCIUM (test code = 8.8 mg/dL 8.6-10.6 0909801693) eGFR Calculation mL/min/1.73m2 (Non-) (test code = 6279528117) eGFR Calculation mL/min/1.73m2 () (test code = 7968201642) JOSHUA (test code = JOSHUA) Association of [...] tests). Lab Interpretation Abnormal (test code = 63946-0) [facility] WITH [id number] 02:01:00 Test Item Value Reference Range Interpretation Comments WBC (test code = See_Comment [Automated 4687-2) message] The sy stem which generated this [...] RDW-SD (test code = 42.5 fL 39-49.9 47841-7) RDW-CV (test code = 12.2 % 12-15.5 788-0) PLT (test code = See_Comment [Automated 777-3) message] The sy stem which generated this result transmitted reference range : 166 - 358 10*3/ ?L. The reference r ramona was not used to interpret this result as normal/abnormal . MPV (test code = 9.7 fL 9.5-12.9 21976-7) NRBC/100 WBC (test See_Comment [Automat ed code = 7448904976) message] The system which generated this result transmitted reference range : 0.0 - 10.0 /100 WBCs. The refer ence range was not u sed to interpret th is result as normal/abnormal . NRBC x10^3 (test code <0.01 See_Comment [Auto mated = 5549477792) message] The s ystem which generated this result transmitted reference range : 10*3/?L. The reference range was not used to interpret this result as normal/abnormal . GRAN MAT (NEUT) % 52.2 % (test code = 770-8) IMM GRAN % (test code 0.30 % = 6464058515) LYMPH % (test code = 36.0 % 736-9) MONO % (test code = 7.3 % 5905-5) EOS % (test code = 3.7 % 713-8) BASO % (test code = 0.5 % 706-2) GRAN MAT x10^3(ANC) 3.36 10*3/uL 1.88-7.09 (test code = 6344002669) IMM GRAN x10^3 (test <0.03 0-0.06 code = 7598000837) LYMPH x10^3 (test code 2.32 10*3/uL 1.32-3.29 = 731-0) MONO x10^3 (test code 0.47 10*3/uL 0.33-0.92 = 742-7) EOS x10^3 (test code = 0.24 10*3/uL 0.03-0.39 711-2) BASO x10^3 (test code 0.03 10*3/uL 0.01-0.07 = 704-7) Lab Interpretation Abnormal (test code = 06245-9) [facility] [id number] 22:39:59 No acute cardiopulmonary abnormality. Emphysematous changes. [...] reviewed this study and agree with the abovereport.[facility] [id number] 22:28:00 Test Item Value Reference Range Interpretation Comments TROPONIN I (test <0.012 See_Comment [Automated code = 5104563319) message] The system which generated this result [...] ? Lab Interpretation Normal (test code = 29763-2) [facility] TexasN-TERMINAL [id number] 22:24:00 Test Item Value Reference Range Interpretation Comments NT-proBNP (test code 675 pg/mL See_Comment H [Autom ated = 4986816732) message] The system which generated this result transmitted reference range : <=125. The reference range was not used to interpret this result as normal/abnormal . JOSHUA (test code = JOSHUA) Biotin has been reported to cause a negative bias, interpret results relative to patient's use of biotin. Lab Interpretation Abnormal (test code = 71676-3) [facility] TexasProthrombin Time (PT) / [id number] 22:20:00 Test Item Value Reference Range Interpretation [...] tions. Lab Interpretation (test Normal code = 19157-1) [facility] Metabolic Panel (NA, K, CL, CO2, GLUCOSE, BUN, CREATININE, CA)2019-07-27 22:17:00 Test Item Value Reference Range Interpretation Comments NA (test code = 138 mmol/L 135-145 5328706159) K (test code = 4.4 mmol/L 3.5-5 5515611842) CL (test code = 101 mmol/L 98-108 9568978325) CO2 TOTAL (test code = 28 mmol/L 23-31 1494726212) AGAP (test code = 2-16 7667364709) BUN (test code = 16 mg/dL 7-23 0946829163) GLUCOSE (test code = 88 mg/dL 70-110 5275493527) CREATININE (test code 0.55 mg/dL 0.5-1.04 = 9206538666) CALCIUM (test code = 10.1 mg/dL 8.6-10.6 7573452422) eGFR Calculation mL/min/1.73m2 (Non-) (test code = 8828312644) eGFR Calculation mL/min/1.73m2 () (test code = 0146765919) JOSHUA (test code = JOSHUA) Association of [...] or urine or abnormalities in imaging tests). [facility]ALB, T.PRO, BILI T, BU/BC, ALT, AST, ALK PHOS)2019-07-27 22:17:00 Test Item Value Reference Range Interpretation Comments TOTAL BILI (test code = 7834423351) 0.7 mg/dL 0.1-1.1 BILI UNCON (test code = 6678994999) 0.8 mg/dL 0.1-1.1 BILI CONJ (test code = 0851541473) 0.0 mg/dL 0-0.3 T PROTEIN (test code = 8034589736) 7.7 g/dL 6.3-8.2 ALBUMIN (test code = 7756599122) 4.8 g/dL 3.5-5 ALK PHOS (test code = 2709167791) 49 U/L 34-122 ALTv (test code = 1742-6) 35 U/L 5-35 AST(SGOT) (test code = 3254990316) 42 U/L 13-40 H Lab Interpretation (test code = Abnormal 75246-5) [facility]2019-07-27 22:16:00 Test Item Value Reference Range Interpretation Comments SARS-CoV-2 Rapid ID NOW Not Detected Not Detected (test code = 77616-5) JOSHUA (test code = JOSHUA) ID NOW COVID-19 Assay is an isothermal nucleic acid amplification test intended for the qualitative detection of nucleic acid from SARS-CoV-2 viral RNA in nasopharyngeal (SOUND TESTER) specimens. It is used under Emergency Use [...] indicated. Lab Interpretation Normal (test code = 47134-2) [facility] WITH [id number] 21:58:00 Test Item Value Reference Range Interpretation Comments WBC (test code = See_Comment [Automated 9290-2) message] The sy stem which generated this [...] RDW-SD (test code = 41.4 fL 39-49.9 45907-7) RDW-CV (test code = 12.2 % 12-15.5 788-0) PLT (test code = See_Comment [Automated 777-3) message] The sy stem which generated this result transmitted reference range : 166 - 358 10*3/ ?L. The reference r ramona was not used to interpret this result as normal/abnormal . MPV (test code = 9.7 fL 9.5-12.9 60910-3) NRBC/100 WBC (test See_Comment [Automat ed code = 1768801576) message] The system which generated this result transmitted reference range : 0.0 - 10.0 /100 WBCs. The refer ence range was not u sed to interpret th is result as normal/abnormal . NRBC x10^3 (test code <0.01 See_Comment [Auto mated = [id number]) message] The s ystem which generated this result transmitted reference range : 10*3/?L. The reference range was not used to interpret this result as normal/abnormal . GRAN MAT (NEUT) % 72.2 % (test code = 770-8) IMM GRAN % (test code 0.40 % = 1513650762) LYMPH % (test code = 19.5 % 736-9) MONO % (test code = 5.2 % 5905-5) EOS % (test code = 2.1 % 713-8) BASO % (test code = 0.6 % 706-2) GRAN MAT x10^3(ANC) 7.15 10*3/uL 1.88-7.09 H (test code = 1683408846) IMM GRAN x10^3 (test 0.04 10*3/uL 0-0.06 code = 3009420085) LYMPH x10^3 (test code 1.93 10*3/uL 1.32-3.29 = 731-0) MONO x10^3 (test code 0.52 10*3/uL 0.33-0.92 = 742-7) EOS x10^3 (test code = 0.21 10*3/uL 0.03-0.39 711-2) BASO x10^3 (test code 0.06 10*3/uL 0.01-0.07 = 704-7) Lab Interpretation Abnormal (test code = 21484-8) [facility]"
--- NOTE | 2021-07-14 20:19 | ER ---
Nurse's Notes [facility] Name: Dalia Reyes Age: 65 yrs Sex: Female : 1955 Arrival Date: 07/14/2021 Time: 19:40 Bed Waiting Private MD: Diagnosis: ED Course: 07/14 19:40 Patient arrived in ED. ag3 Administered Medications: No medications were administered Outcome: 20:18 Patient left the ED. ld1 Signatures: Gladys Aguilar ag3 Elizabeth Montez, RN RN ld1
== END 2021-07-14 20:18 | disposition left against medical advice (07) ==
LOC: ER 19:40
DX: Z02.9 Encounter for administrative examinations, unspecified (principal)

== ENCOUNTER 2021-09-03 20:23 | Emergency (ER) | payer OTHER ==
--- NOTE | 2021-09-03 22:01 | RAD REPORT ---
EXAM DESCRIPTION: RAD - Chest Single View - 09/03/2021 9:55 pm CLINICAL HISTORY: SOB Chest pain. COMPARISON: Chest Single View dated 04/21/2021; Chest Single View dated 04/19/2021; Chest Single View dated 04/16/2021; Chest Single View dated 02/18/2021 FINDINGS: Portable technique limits examination quality. The lungs are emphysematous but grossly clear. The heart is normal in size. No displaced fractures. IMPRESSION: COPD.
[2021-09-03 22:04] LABS: Absolute Lymphocytes (CBC) 1.2 K/uL (0.7-4.9); Hematocrit 35.6 % (36.0-45.0); Lymphocytes % 12.7 % (15.3-44.8); MCV 82.8 fL (80-100); MPV 7.8 fL (7.6-11.3)
[2021-09-03 22:15] LABS: ALT/SGPT 41 U/L (12-78); AST/SGOT 33 U/L (15-37); Albumin 3.5 g/dL (3.4-5.0); Alkaline Phosphatase 61 U/L (45-117); BUN Blood Urea Nitrogen 16 mg/dL (7-18); Bicarbonate 29 mmol/L (21-32); Bilirubin Direct < 0.1 mg/dL (0-0.2); Bilirubin Total 0.2 mg/dL (0.2-1.0); Glomerular Filtration Rate 88 ml/min (=/>90); Glucose Level 134 mg/dL (74-106); Magnesium 2.1 mg/dL (1.8-2.4); NT PRO-BNP 680 pg/mL (<125); Potassium 3.5 mmol/L (3.5-5.1); Protein, Total 6.7 g/dL (6.4-8.2); Sodium Level 140 mmol/L (136-145); Troponin High Sensitivity 16.7 pg/mL (<58.9)
[2021-09-03 22:41] LABS: Protime INR 1.04
--- NOTE | 2021-09-03 23:25 | EDPHYS ---
Physician Documentation [facility] Name: Dalia Reyes Age: 65 yrs Sex: Female : 1955 Arrival Date: 09/03/2021 Time: 20:31 Bed 7 Private MD: ED Physician Vaughn Ndiaye HPI: 09/03 20:40 This 65 yrs old Female presents to ER via EMS with complaints of Shortness Of Breath. cp 20:40 The patient has shortness of breath at rest. Onset: The symptoms/episode began/occurred cp suddenly, today. Duration: The symptoms are continuous, but are steadily getting better. 20:40 Associated signs and symptoms: Pertinent positives: non-productive cough, Pertinent cp negatives: chest pain, diaphoresis, fever, hemoptysis, vomiting. Severity of symptoms: in the emergency department the symptoms have improved patient given 125 mg Solu-medrol and Neb treatments times 2 while being transported to ED. Historical: - Allergies: 20:34 Benadryl; kd3 20:34 Lorazepam; kd3 20:34 Valium; kd3 - Home Meds: 20:34 Albuterol Inhl [Active]; aspirin 81 mg Oral chew 1 tab once daily [Active]; kd3 atorvastatin 80 mg Oral tab 1 tab once daily [Active]; - PMHx: 20:34 Chronic obstructive lung disease; Emphysema; Hypercholesterolemia; Hypertensive kd3 disorder; diabetes mellitus; - PSHx: 20:34 Heart Stents; section; kd3 - Immunization history:: Adult Immunizations up to date. - Social history:: Smoking status: Patient denies any tobacco usage or history of. ROS: 20:45 Constitutional: Negative for body aches, chills, fever, poor PO intake. cp 20:45 Eyes: Negative for injury, pain, redness, and discharge. cp 20:45 ENT: Negative for drainage from ear(s), ear pain, sore throat, difficulty swallowing, difficulty handling secretions, hoarseness. 20:45 Cardiovascular: Negative for chest pain, edema, palpitations. 20:45 Respiratory: Positive for cough, with no reported sputum, shortness of breath, at rest. wheezing. 20:45 Abdomen/GI: Negative for abdominal pain, nausea, vomiting, and diarrhea, constipation. 20:45 Back: Negative for pain at rest, pain with movement. 20:45 : Negative for urinary symptoms. 20:45 Neuro: Negative for altered mental status, dizziness, headache, numbness, weakness. 20:45 All other systems are negative. Exam: 20:50 ECG was reviewed by the Attending Physician. cp 20:52 Constitutional: The patient appears in no acute distress, alert, awake, cp non-diaphoretic, non-toxic, well developed, well nourished. 20:52 Head/Face: Normocephalic, atraumatic. cp 20:52 Eyes: Periorbital structures: appear normal, Conjunctiva: normal, no exudate, no injection, Sclera: no appreciated abnormality, Lids and lashes: appear normal, bilaterally. 20:52 ENT: External ear(s): are unremarkable, Nose: is normal, Mouth: Lips: moist, Oral mucosa: pink and intact, moist, Posterior pharynx: Airway: no evidence of obstruction, patent, Tonsils: are normal in appearance, Uvula: normal, erythema, is not appreciated, exudate, is not appreciated. 20:52 Neck: ROM/movement: is normal, is supple, without pain, no range of motions limitations, no meningismus. 20:52 Chest/axilla: Inspection: normal. 20:52 Cardiovascular: Rate: tachycardic, Rhythm: regular, Edema: is not appreciated, JVD: is not appreciated. 20:52 Respiratory: the patient does not display signs of respiratory distress, Respirations: labored breathing, that is mild, shallow respirations, that is mild, Breath sounds: decreased breath sounds, that are moderate, diffuse, stridor, is not appreciated, wheezing: that is mild, is heard diffusely. 20:52 Abdomen/GI: Inspection: abdomen appears normal, Bowel sounds: active, all quadrants, Palpation: abdomen is soft and non-tender, in all quadrants. Vital Signs: 20:49 BP 114 / 69; Pulse 101; Resp 19; Temp 97.9; Pulse Ox 97% on 3 lpm NC; Weight 56.7 kg; kd3 Height 5 ft. 6 in. (167.64 cm); Pain 0/10; 23:36 BP 118 / 62; Pulse 99; Resp 19; Pulse Ox 95% on 3 lpm NC; kd3 20:49 Body Mass Index 20.18 (56.70 kg, 167.64 cm) kd3 MDM: 20:44 Patient medically screened. cp 23:24 Data reviewed: vital signs, nurses notes, lab test result(s), EKG, radiologic studies, cp plain films. 23:24 Differential diagnosis: CHF exacerbation, Chronic Obstructive Pulmonary Disease cp Myocardial Infarction pneumonia, Pneumothorax pulmonary edema, Pulmonary Embolism Sepsis Unstable Angina. Test interpretation: by ED physician or midlevel provider: ECG, plain radiologic studies. Counseling: I had a detailed discussion with the patient and/or guardian regarding: the historical points, exam findings, and any diagnostic results supporting the discharge/admit diagnosis, lab results, radiology results, to return to the emergency department if symptoms worsen or persist or if there are any questions or concerns that arise at home. 09/03 20:44 Order name: Basic Metabolic Panel; Complete Time: 23:20 cp 09/03 20:44 Order name: CBC with Diff; Complete Time: 23:20 cp 09/03 20:44 Order name: LFT's; Complete Time: 23:20 cp 09/03 20:44 Order name: Magnesium; Complete Time: 23:20 cp 09/03 20:44 Order name: NT PRO-BNP; Complete Time: 23:20 cp 09/03 20:44 Order name: PT-INR; Complete Time: 23:20 cp 09/03 20:44 Order name: Troponin HS; Complete Time: 23:20 cp 09/03 20:44 Order name: XRAY Chest (1 view); Complete Time: 23:20 cp 09/03 20:44 Order name: EKG; Complete Time: 20:49 cp 09/03 20:44 Order name: Cardiac monitoring; Complete Time: 20:50 cp 09/03 20:44 Order name: EKG - Nurse/Tech; Complete Time: 20:50 cp 09/03 20:44 Order name: IV Saline Lock; Complete Time: 20:50 cp 09/03 20:44 Order name: Labs collected and sent; Complete Time: 21:15 cp 09/03 20:44 Order name: O2 Per Protocol; Complete Time: 20:50 cp 09/03 20:44 Order name: O2 Sat Monitoring; Complete Time: 20:50 cp EC:50 Rate is 97 beats/min. Rhythm is regular. ME interval is normal. QRS interval is normal. cp QT interval is normal. T waves are Inverted in leads aVL, aVR. Interpreted by me. Reviewed by me. Administered Medications: No medications were administered Disposition Summary: 09/03/21 23:24 Discharge Ordered Location: Home cp Problem: an acute exacerbation cp Symptoms: have improved cp Condition: Stable cp Diagnosis - COPD/ Chronic obstructive pulmonary disease with (acute) exacerbation cp Followup: cp - With: Private Physician - When: 1 - 2 days - Reason: Recheck today's complaints Discharge Instructions: - Discharge Summary Sheet cp - Chronic Obstructive Pulmonary Disease Exacerbation cp Forms: - Medication Reconciliation Form cp - Thank You Letter cp - Antibiotic Education cp - Prescription Opioid Use cp Prescriptions: - ipratropium-albuterol 0.5 mg-3 mg(2.5 mg base)/3 mL Inhalation solution for nebulization - inhale 3 milliliter by NEBULIZATION route 4 times per day; 1 box; Refills: 0, cp Product Selection Permitted - Prednisone 20 mg Oral Tablet - take 2 tablets by ORAL route once daily for 5 days; 10 tablet; Refills: 0, cp Product Selection Permitted Signatures: Dispatcher [employer] EDMS Iván Stuart PA PA cp Doucette, Kyli RN RN kd3 Corrections: (The following items were deleted from the chart) 09/04 14:08 14:05 Associated signs and symptoms: Pertinent positives: non-productive cough, cp Pertinent negatives: chest pain, diaphoresis, fever, hemoptysis, vomiting, cp 14:08 14:05 Severity of symptoms: in the emergency department the symptoms have improved cp cp
--- NOTE | 2021-09-03 23:25 | ER ---
Nurse's Notes [facility] Name: Dalia Reyes Age: 65 yrs Sex: Female : 1955 Arrival Date: 09/03/2021 Time: 20:31 Bed 7 Private MD: Diagnosis: COPD/ Chronic obstructive pulmonary disease with (acute) exacerbation Presentation: 09/03 20:31 Chief complaint: EMS states: She called us out for difficulty breathing. she took two kd3 albuterol treatments at home before we arrived. She had significant wheezing and was in the tripod position. We got a 20 G in the right forearm and gave 125 of Solu Medrol and we gave two albuterol treatments and an Atrovent treatment en route. She has significantly improved and is 98 on 3 L N/C. Pt is usually on 3 L N/C at home. Coronavirus screen: Vaccine status: Patient reports being unvaccinated. Ebola Screen: No symptoms or risks identified at this time. Initial Sepsis Screen: Does the patient meet any 2 criteria? No. Patient's initial sepsis screen is negative. Does the patient have a suspected source of infection? No. Patient's initial sepsis screen is negative. Risk Assessment: Do you want to hurt yourself or someone else? Patient reports no desire to harm self or others. Onset of symptoms was September 03, 2021. 20:31 Method Of Arrival: EMS: [facility] kd3 20:31 Acuity: CONSTANTINO 3 kd3 Triage Assessment: 20:34 General: Appears in no apparent distress. Behavior is calm, cooperative. Pain: Denies kd3 pain. Respiratory: Reports shortness of breath at rest Onset: The symptoms/episode began/occurred today, the patient reports symptoms have resolved. Historical: - Allergies: 20:34 Benadryl; kd3 20:34 Lorazepam; kd3 20:34 Valium; kd3 - Home Meds: 20:34 Albuterol Inhl [Active]; aspirin 81 mg Oral chew 1 tab once daily [Active]; kd3 atorvastatin 80 mg Oral tab 1 tab once daily [Active]; - PMHx: 20:34 Chronic obstructive lung disease; Emphysema; Hypercholesterolemia; Hypertensive kd3 disorder; diabetes mellitus; - PSHx: 20:34 Heart Stents; section; kd3 - Immunization history:: Adult Immunizations up to date. - Social history:: Smoking status: Patient denies any tobacco usage or history of. Screenin:35 Abuse screen: Denies threats or abuse. Denies injuries from another. Nutritional kd3 screening: No deficits noted. Tuberculosis screening: No symptoms or risk factors identified. Fall Risk IV access (20 points). Assessment: 20:35 Cardiovascular: Rhythm is regular. Respiratory: Airway is patent Respiratory effort is kd3 even, unlabored, Breath sounds with wheezes bilaterally. Vital Signs: 20:49 BP 114 / 69; Pulse 101; Resp 19; Temp 97.9; Pulse Ox 97% on 3 lpm NC; Weight 56.7 kg; kd3 Height 5 ft. 6 in. (167.64 cm); Pain 0/10; 23:36 BP 118 / 62; Pulse 99; Resp 19; Pulse Ox 95% on 3 lpm NC; kd3 20:49 Body Mass Index 20.18 (56.70 kg, 167.64 cm) kd3 ED Course: 20:31 Patient arrived in ED. kd3 20:34 Triage completed. kd3 20:34 Arm band placed on right wrist. kd3 20:35 Patient has correct armband on for positive identification. kd3 20:36 Elva Ferrer RN is Primary Nurse. kd3 20:38 Iván Stuart PA is PHCP. cp 20:38 Vaughn Nidaye MD is Attending Physician. cp 21:56 XRAY Chest (1 view) In Process Unspecified. EDMS 23:36 No provider procedures requiring assistance completed. IV discontinued, intact, kd3 bleeding controlled, No redness/swelling at site. Pressure dressing applied. Oxygen administration via nasal cannula \T\ 3L/min. Administered Medications: No medications were administered Medication: 20:35 VIS not applicable for this client. kd3 Outcome: 23:24 Discharge ordered by . cp 23:36 Discharged to home ambulatory. kd3 23:36 Condition: stable 23:36 Discharge instructions given to patient, Instructed on discharge instructions, follow up and referral plans. medication usage, Demonstrated understanding of instructions, follow-up care, medications, Prescriptions given X 2. 23:44 Patient left the ED. kd3 Signatures: Dispatcher [employer] EDMS Iván Stuart PA PA cp Doucette, Kyli, RN RN kd3
[2021-09-04 01:43] VITALS: TEMP 97.9
[2021-09-04 01:50] VITALS: BP 118/62; O2SAT 95
--- NOTE | 2021-09-04 13:04 | EKG ---
Test Date: 2021-09-03 Test Time: 20:46:29 Tape Duplicator: KRANTHI MEASUREMENT RESULTS: Intervals: Rate: 97 NV: 144 QRSD: 80 QT: 362 QTc: 459 [place]: P: 83 NV: 144 QRS: 79 T: 83 INTERPRETIVE STATEMENTS: Normal sinus rhythm Right atrial enlargement Borderline ECG Compared to ECG 04/19/2021 16:12:19 No significant changes Electronically Signed On 09-04-21 13:03:39 CDT by Ghanshyam Knox
== END 2021-09-03 23:44 | disposition home or self-care (01) ==
LOC: ER 20:23
DX: J44.9 Chronic obstructive pulmonary disease, unspecified (principal); R06.02 Shortness of breath; Z88.8 Allergy status to other drugs, medicaments and biological substances
CPT/HCPCS: 36415; 71045; 80048; 80076; 83735; 83880; 84484; 85025; 85610; 93005; 99284

== ENCOUNTER 2021-09-18 15:19 | Emergency (ER) | payer OTHER ==
--- OUTSIDE RECORDS SUMMARY | 2021-09-18 15:24 | XMS REPORT | Continuity of Care Document ---
:[address] [facility] t Address [facility] [place] [address] Care Team Providers Name Role Phone ROSITA Lyon [facility] Primary Care P hysician Unavailable HYUN FLYNN Attending Clinician Unavailable Doctor Unassigned, [place] Attending Clinician Unavailable Sarah Barkley Attending Clinician WILLIAN FUNEZ JR Attending Clinician Unavailable Minna Mike MD Attending Clinician Lexy Ochoa MD Attending Clinician David Echeverria Attending Clinician [phone] MINNA MIKE Attending Clinician Unavailable Soila Villar DO Attending Clinician SOILA VILLAR Attending Clinician Unavailable HYUN FLYNN Admitting Clinician Unavailable David Echeverria Admitting Clinician [phone] SOILA VILLAR Admitting Clinician Unavailable Problems Condition Condition Condition Status Onset Resolution Last Treating Co mments Source Name Details Category Date Date Treatment Clinician Date ACS (acute ACS (acute Disease Active 2019-02 U nivers coronary coronary 1-20 ity of syndrome) syndrome[place] [facility] [place] SOB SOB Disease Active 2019-02 Univers (shortness (shortness 1-19 it y of of breath) [place] breath[place] [facility] [place] No known No known Disease Unive rs active active ity of problems problems [facility] Allergies, Adverse Reactions, Alerts Allergy Allergy Status Severity Reaction(s) Onset Inactive Treating Comm ents Source Name Type Date Date Clinician DIPHENHY DRUG Active Anxiety 2019-0 Univers DRAMINE INGREDI 6-18 ity of 00:00: [place] 00 Medical Branch Diphenhy Propensi Active Anxiety 2019-0 Unive rs dramine ty to 618 ity of adverse 00:00: [place] reaction 00 Medical s Branch NO KNOWN Drug Active Univers ALLERGIE Class ity of S [facility] Social History Social Habit Start Date Stop Date Quantity Comments Source History of tobacco Cigarette Smoker University of use [facility] Sex Assigned At Universit y of [facility] Exposure to Not sure [facility] SARS-CoV-2 (event) [facility] Cigarettes smoked 2019-12-28 2019-12-28 Univers ity of current (pack per 00:00:00 00:00:00 [facility] ) - Reported Branch Cigarette 2019-12-28 2019-12-28 University of pack-years 00:00:00 00:00:00 [facility] Tobacco use and 2019-12-28 2019-12-28 Never used Universit y of exposure 00:00:00 00:00:00 [facility] Branch Alcohol intake 2019-12-28 2019-12-28 Lifetime University of 00:00:00 00:00:00 non-drinker [place] [facility] (finding) Branch History SDOH 2019-12-28 2019-12-28 1 University o f Alcohol Frequency 00:00:00 00:00:00 [facility] Branch History SDAZ 2019-12-28 2019-12-28 99 University o f Alcohol Std Drinks 00:00:00 00:00:00 [facility] Branch History SDOH 2019-12-28 2019-12-28 1 University o f Alcohol Binge 00:00:00 00:00:00 [place] [facility] Smoking Status Start Date Stop Date Source Current every day smoker 2019-12-28 00:00:00 Uni versity of [facility] Unknown if ever smoked [facility] Medications Ordered Filled Start Stop Current Ordering Indication Dosage Frequency Signature Comments Components Source Medication Medication Date Date Medication? Clinician (SIG) Name Name metFORMIN 2019- Yes 500mg Take 500 Uni vers 500 mg 1-21 mg by ity of tablet 20:14: mouth 2 [place] (two) Medical times Branch daily with meals. traZODone 2019-02 Yes 150mg Take 150 Uni vers 100 mg 1-21 mg by ity of tablet 20:14: mouth at [place] [address] bedtime. Medical Branch busPIRone 2019-02 Yes 7.5mg Take 7.5 Uni vers 7.5 mg 1-21 mg by ity of tablet 20:14: mouth 2 [place] (two) Medical times Branch daily. FLUoxetine 2019-02 Yes 20mg Take 20 mg U nivers 20 mg 1-21 by mouth ity of capsule 20:14: daily. Medical Branch lamoTRIgine 2019-02 Yes 100mg Take 100 U nivers 100 mg 1-21 mg by ity of tablet 20:14: mouth 2 [place] (two) Medical times Branch daily. fluticasone 2019-02 Yes 1{puff} Inhale 1 Univers propionate 1-21 Puff 2 ity of 44 20:14: (two) [place] mcg/actuati 09 times Medical on inhaler daily. Branch albuterol 2019-02 Yes 2{puff} Inhale 2 U nivers (PROVENTIL 1-21 Puffs ity of HFA) 90 20:14: every 6 [place] mcg/actuati (six) Medical on inhaler hours as Branc h needed for Wheezing or Shortness of Breath. atorvastati 2019-02 Yes 80mg Take 80 mg Univers n (LIPITOR) 1-21 by mouth ity of 80 mg 20:14: at [place] [address] bedtime. Medical Branch mupirocin 2 2019-02 Yes Apply to Un destiny % ointment 1-21 area(s) 2 ity of 20:14: (two) [place] [address] times Medical daily. Branch metoprolol 2019-02 Yes 12.5mg Take 12.5 Univers tartrate 25 1-21 mg by ity of mg tablet 20:14: mouth 2 [place] (two) Medical times Branch daily. metFORMIN 2019-02 Yes 500mg Take 500 Uni vers 500 mg 1-21 mg by ity of tablet 20:14: mouth 2 [place] (two) Medical times Branch daily with meals. traZODone 2019-02 Yes 150mg Take 150 Uni vers 100 mg 1-21 mg by ity of tablet 20:14: mouth at [place] [address] bedtime. Medical Branch busPIRone 2019-02 Yes 7.5mg [...] mouth ity of 80 mg 20:14: at [facility] 09 bedtime. Medical Branch mupirocin 2 2019-02 Yes Apply to Un destiny % ointment 1-21 area(s) 2 ity of 20:14: (two) [place] [address] times Medical daily. Branch metoprolol 2019-02 Yes [...] by ity of tablet 20:14: mouth at [place] 09 bedtime. Medical Branch busPIRone 2019-02 Yes [...] Puff 2 ity of 44 20:14: (two) [place] mcg/actuati times Medical on inhaler daily. Branch albuterol 2019-02 Yes 2{puff} Inhale 2 U nivers (PROVENTIL 1-21 Puffs ity of HFA) 90 20:14: every 6 [place] mcg/actuati (six) Medical on inhaler hours as Branc h needed for Wheezing or Shortness of Breath. atorvastati 2019-02 Yes 80mg Take 80 mg Univers n (LIPITOR) 1-21 by mouth ity of 80 mg 20:14: at [facility] bedtime. Medical Branch mupirocin 2 2019-02 Yes Apply to Un destiny % ointment 1-21 area(s) 2 ity of 20:14: (two) [place] times Medical daily. Branch metoprolol 2019-02 Yes 12.5mg Take 12.5 Univers tartrate 25 1-21 mg by ity of mg tablet 20:14: mouth 2 (two) Medical times Branch daily. atorvastati 2019-02 Yes 80mg 80 mg, Univ ers n (LIPITOR) 1-21 Oral, QHS, it y of tablet 80 03:00: [place] mg 00 (after Medical last Branch modificati on) on Wed12/29/19 at 2100, Until Discontinu ed, Routine clopidogreL 2019-02 Yes [id number] 75mg Take 1 Univers 75 mg 1-21 tablet by ity of tablet 00:00: mouth [place] 00 daily. Medical Branch aspirin 81 2019-02 Yes [id number] 81mg Take 1 Univers mg chewable 1-21 tablet by ity of tablet 00:00: mouth [place] 00 daily. Medical Branch predniSONE 2019-02 Yes [id number] 40mg Take 2 U nivers 20 mg 1-21 tablets by ity of tablet 00:00: mouth [place] 00 daily. Medical Branch clopidogreL 2019-02 Yes [id number] 75mg Take 1 Univers 75 mg 1-21 tablet by ity of tablet 00:00: mouth [place] 00 daily. Medical Branch aspirin 81 2019-02 Yes [id number] 81mg Take 1 Univers mg chewable 1-21 tablet by ity of tablet 00:00: mouth [place] 00 daily. Medical Branch predniSONE 2019-02 Yes [id number] 40mg Take 2 U nivers 20 mg 1-21 tablets by ity of tablet 00:00: mouth [place] 00 daily. Medical Branch aspirin 81 2019-02 Yes [id number] 81mg Take 1 Univers mg chewable 1-21 tablet by ity of tablet 00:00: mouth [place] 00 daily. Medical Branch clopidogreL 2019-02- No 75mg Take 75 mg Univers 75 mg -12-28 by mouth ity of tablet 22:51: 00:00 daily. [place] 35 :00 Medical Branch clopidogreL 2019-02- No Oral, Univ ers (PLAVIX) 02-27 TITRATE - ity o f tablet 21:25: 21:25 FOR [place] 13 :13 PROCEDURE Medical USE, 1 Branch dose, Starting Wed12/29/19 at 1525, Until Wed12/29/19 at 1525, Routine ticagrelor 2019-02- No Oral, Unive rs (BRILINTA) 02-27 TITRATE - ity of tablet 20:57: 20:57 FOR [place] 39 :39 PROCEDURE Medical USE, 1 Branch dose, Starting Wed12/29/19 at 1457, Until Wed12/29/19 at 1457, Routine heparin 2019-02- No Slow IV Univer s 1,000 02-27 Push, ity of unit/mL 20:57: 20:57 TITRATE - [place] injection 02 :02 FOR Medical PROCEDURE Branch USE, 1 dose, Starting Wed12/29/19 at 1457, Until 12/29/19 at 1457, Routine nitroglycer 2019-02- No Intravenou Univers in (TRIDIL) 02-27 s, TITRATE i ty of 2 mg in 10 20:49: 20:49 - FOR [place] mL D5W for 28 :28 PROCEDURE Medi piedad Cardiac USE, 1 Branch Cath dose, Starting Wed12/29/19 at 1449, Until Wed12/29/19 at 1449, Routine lidocaine 2019-02- No Infiltrati U nivers 1% (PF) 02-27- on, ity of (XYLOCAINE) 20:37: 20:37 TITRATE - [place] injection 00 :00 FOR Medical PROCEDURE Branch USE, 1 dose, Starting Wed12/29/19 at 1437, Until Wed12/29/19 at 1437, Routine FENTanyl PF 2019-02- No Slow IV Un destiny (SUBLIMAZE 02-27 Push, ity of (PF)) 20:33: 20:33 TITRATE - [place] injection 00 :00 FOR Medical PROCEDURE Branch USE, 1 dose, Starting Wed12/29/19 at 1433, Until Wed12/29/19 at 1433, Routine midazolam 2019-02- No IV Push, Uni vers (VERSED) 02-27 TITRATE - ity o f injection 20:33: [...] at 2000, Until Discontinu ed, Routine predniSONE 2019- Yes [id number] 40mg Take 2 U nivers 20 mg 1-20 tablets by ity of tablet 00:00: mouth [place] 00 daily. Medical Branch clopidogreL 2019-02 Yes [id number] 75mg Take 1 Univers 75 mg 1-20 tablet by ity of tablet 00:00: mouth [place] 00 daily. Medical Branch predniSONE 2019-02 2020- No [id number] 40mg Take 2 Univers 20 mg -28 12- tablets by ity of tablet 00:00: 00:00 mouth [place] 00 :00 daily. Medical Branch predniSONE 2019-02- No [id number] 40mg Take 2 Univers 20 mg -28 12- tablets by ity of tablet 00:00: 00:00 mouth [place] 00 :00 daily for Medical 4 days. Branch atorvastati 2019-02- No 40mg 40 mg, Uni vers n (LIPITOR) 02-26 Oral, QPM, i ty of tablet 40 23:00: 02:01 [place] mg 00 :46 on [facility] Medical 12/28/19 Branch at 1700, Until [...] 12/28/19 Bran ch mL at 1245, Routine
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 design faculty member approving Restricted medication : DEJAN GONSALEZ Saline 2019-02- No 6mL 6 mL, Univers Bubble 02-26 Injection, ity of Study 17:33: 22:27 SEE-INSTRU [place] 16 :16 CTIONS, 2 Medical doses, Branch Starting [facility] 12/28/19 at 1133, Until Wed12/29/19 at 1627, Routine Saline 2019-02 Yes 6mL 6 mL, Univers Bubble 02-26 Injection, ity of Study 17:33: SEE-INSTRU [place] 14 CTIONS, 2 Medical doses, Branch Starting [facility] 12/28/19 at 1133, Until Discontinu ed, Routine clopidogreL 2019-02 Yes 75mg 75 mg, Univ ers (PLAVIX) 02-26 Oral, ity of tablet 75 15:00: DAILY, [place] mg 00 First dose Medical on [facility] Branch 12/28/19 at 0900, Until Discontinu ed, Routine
interior design faculty member approving Restricted medication : DOV LEXY THIBODEAUX aspirin 2019-02 Yes 81mg 81 mg, Univers [...] at 0800, Until Discontinu ed, Routine heparin 2019-02- No 12U/kg/ 12 Univer s 25,000 02-26 h Units/kg/h ity of Units/250 12:55: 22:27 r ?58.9 kg [place] mL 58 :16 (7.068 Medical (Premixed mL/hr, Branch Bag) in rounded to 0.45 % NS 7.07 mL/hr), IV Infusion, TITRATE, Parameters in Admin. Instr., Starting [place] 12/28/19 at 0655
CA UTION - If LMWH given in ER, AVOID bolus and start next dose/drip 12 hrs after ER dosage.&nb sp; M ust program rate using programmab le infusion pump.&nbsp ; Maryana ck with the ordering provider first prior to any administra tion should the patient be on existing/a dditional anticoagul ant therapy. Rang e, Dosing and Testing: &nbs p;[facility] ONLY &nbs p; [...] increase rate 300 units/hr&n bsp; - aPTT 40-49:&amp ;nbsp;&nbs p;Bolus 3000 units, increase rate 200 units/hr&n bsp; [...] Push, Branc h Units ONCE, 1 dose, [facility] 12/28/19 at 0600, Routine albuterol 2019-02 Yes 2.5mg 2.5 mg, Univ ers (PROVENTIL) 02-26 Inhalation it y of 2.5 mg /3 10:00: , Q4H, [place] mL (0.083 00 First dose Medi piedad %) on [facility] Branch nebulizer 12/28/19 solution at 0400, 2.5 mg Until Discontinu ed, Routine ipratropium 2019-02 Yes .5mg 0.5 mg, Uni vers (ATROVENT) 02-26 Inhalation ity of 0.02 % 10:00: , Q4H, [place] nebulizer 00 First dose Medi piedad solution on [facility] Branch 0.5 mg 12/28/19 at 0400, [...] 02-26 Oral, ity of (TYLENOL) 08:36: Q6HPRN, [place] tablet 650 38 Starting Medic al mg [place] Branch 12/28/19 at 0236, Until Discontinu ed, Routine, Pain (scale 1-3) nicotine 2019-02 Yes 1{patch 1 Patch, Un destiny (NICODERM) 02-26 } Topical, ity o f 21 mg/24 hr 06:15: Administer [place] patch 1 00 over 24 Medical Patch Hours, Branch Q24H, First dose on [place] 12/28/19 at 0015, Until Discontinu ed, Routine iohexol 2019-02- No 100mL 100 mL, Unive rs (OMNIPAQUE 02-26 Intravenou it y of 350 05:00: 05:00 s, ONCE, 1 [place] BULK-100 00 :00 dose, Wed Medica l mL) 12/27/19 Branch injection at 2300, 100 mL Routine methylPREDN 2019-02- No 40mg 40 mg, IV Univers ISolone sod 02-26 Piggyback, i ty of succ 02:45: 01:47 ONCE, 1 [place] (SOLU-MEDRO 00 :00 dose, Wed Med ical L (PF)) 12/27/19 Branch injection at 2045, 40 mg STAT metoprolol 2019-02- No [id number] 12.5mg Take 0.5 Univers tartrate 25 02-26-19 tablets by i ty of mg tablet 00:00: 00:00 mouth 2 [place] 00 :[place] (two) Medical times [place] daily. albuterol-i 2019-02- No [id number] 1{puff} Inhale 1 Univers pratropium -27 12-19 Puff 4 ity of 20-100 00:00: 00:00 (four) [place] mcg/actuati 00 :00 times Medical on inhaler daily. [place] metoprolol 2019-02- No [id number] 12.5mg Take 0.5 Univers tartrate 25 02-26-19 tablets by i ty of mg tablet 00:00: 00:00 mouth 2 [place] 00 :[place] (two) Medical times [place] daily. metoprolol 2019-02- No [id number] 12.5mg Take 0.5 Univers tartrate 25 02-26- tablets by i ty of mg tablet 00:00: 00:00 mouth 2 [place] 00 :[place] (two) Medical times [place] daily. aspirin 2019- No 324mg 324 mg, Unive rs chewable 07-26 Oral, ity of tablet 324 22:30: 21:42 ONCE, 1 [place] as mg 00 :00 dose, [facility] 07/27/19 at Branch 1730, Routine No known No Univers medications ity of [facility] Vital Signs Vital Name Observation Time Observation Value Comments Source Systolic blood 2019-12-30 135 mm[Hg] [facility] pressure 17:24:00 [facility] Diastolic blood 2019-12-30 72 mm[Hg] [place] o f pressure 17:24:00 [facility] Heart rate 2019-12-30 78 /min [facility] :24:00 [facility] Body temperature 2019-12-30 35.61 Annemarie [facility] 17:24:00 [facility] Respiratory rate 2019-12-30 18 /min [facility] :24:00 [facility] Oxygen saturation 2019-12-30 91 /min [facility] in Arterial blood 17:24:00 [facility] by Pulse oximetry [place] Body weight 2019-12-30 57.924 kg pt's actual wt [facility] 10:03:00 on regular [facility] scale [place] BMI 2019-12-30 20.61 kg/m2 University of 10:03:00 [place] [facility] [place] Body height 2019-12-29 167.6 cm University of 20:18:00 [facility] Branch Systolic blood 2019-12-30 135 mm[Hg] University of pressure 17:24:00 [facility] Branch Diastolic blood 2019-12-30 72 mm[Hg] University o f pressure 17:24:00 [facility] Branch Heart rate 2019-12-30 78 /min University of 17:24:00 [facility] Body temperature 2019-12-30 35.61 Annemarie University of 17:24:00 [facility] Branch Respiratory rate 2019-12-30 18 /min University of 17:24:00 [facility] Branch Oxygen saturation 2019-12-30 91 /min University of in Arterial blood 17:24:00 [facility] piedad by Pulse oximetry Branch Body weight 2019-12-30 57.924 kg pt's actual wt University of 10:03:00 on regular [place] Medical scale Branch BMI 2019-12-30 20.61 kg/m2 University of 10:03:00 [facility] Body height 2019-12-29 167.6 cm University of 20:18:00 [facility] Systolic blood 2019-07-27 120 mm[Hg] University of pressure 21:35:00 [facility] Branch Diastolic blood 2019-07-27 79 mm[Hg] University o f pressure 21:35:00 [facility] Heart rate 2019-07-27 93 /min University of 21:35:00 [facility] Respiratory rate 2019-07-27 12 /min University of 21:35:00 [facility] Oxygen saturation 2019-07-27 95 /min University of in Arterial blood 21:35:00 [facility] piedad by Pulse oximetry Branch Body temperature 2019-07-27 37.5 Annemarie University of 21:15:00 [facility] Branch Body height 2019-07-27 167.6 cm University of 21:15:00 [facility] Body weight 2019-07-27 55.792 kg University of 21:15:00 [facility] BMI 2019-07-27 19.85 kg/m2 University of 21:15:00 [facility] Systolic blood 2019-07-27 120 mm[Hg] University of pressure 21:35:00 [facility] Branch Diastolic blood 2019-07-27 79 mm[Hg] University o f pressure 21:35:00 [facility] Heart rate 2019-07-27 93 /min University of 21:35:00 [facility] Respiratory rate 2019-07-27 12 /min [facility] 21:35:00 [facility] Oxygen saturation 2019-07-27 95 /min [facility] Arterial blood 21:35:00 [facility] by Pulse oximetry [place] Body temperature 2019-07-27 37.5 Annemarie :15:00 [facility] Body height 2019-07-27 167.6 cm [facility] :15:00 [facility] Body weight 2019-07-27 55.792 kg [facility] 21:15:00 [facility] BMI 2019-07-27 19.85 kg/m2 [facility] 21:15:00 [facility] Procedures Procedure Date / Time Performing Clinician Source Performed EXTERNAL PROVIDER 2020-01-17 06:01:00 Doctor Unassigned, [facility] RECORDS Name [facility] Branch POCT GLUCOSE 2019-12-30 15:25:00 [facility] (AUTOMATED) Meghan taniya [facility] MAGNESIUM 2019-12-30 10:10:00 [facility] BASIC METABOLIC PANEL 2019-12-30 10:10:00 [facility] (NA, K, CL, CO2, Medical Branch GLUCOSE, BUN, CREATININE, CA) CBC WITH DIFF 2019-12-30 10:10:00 [facility] POCT GLUCOSE 2019-12-30 01:50:00 [facility] (AUTOMATED) [facility] POCT GLUCOSE 2019-12-29 23:32:00 [facility] (AUTOMATED) [facility] HB ECG ROUTINE & RHYTHM 2019-12-29 14:11:36 [facility] POCT GLUCOSE 2019-12-29 14:00:00 [facility] (AUTOMATED) Meghan taniya [facility] MAGNESIUM 2019-12-29 10:58:00 [facility] BASIC METABOLIC PANEL 2019-12-29 10:58:00 [facility] [place] [facility] (NA, K, CL, CO2, Medical Branch GLUCOSE, BUN, CREATININE, CA) ACTIVATED PARTIAL 2019-12-29 10:58:00 Mariya [facility] [place] [facility] EXTERNAL PROVIDER 2019-12-29 06:01:00 Doctor Unassigned, No [facility] RECORDS Name Medical Branch POCT GLUCOSE 2019-12-29 04:16:00 Lexy Ochoa [facility] (AUTOMATED) Meghan Thibodeaux Medical Bran ch ACTIVATED PARTIAL 2019-12-29 00:06:00 Mariya [facility] [place] [facility] TROPONIN I 2019-12-28 19:46:00 Jesus Paz [facility] LIPID PANEL 2019-12-28 19:46:00 Mariya [facility] ([id number])(TOTAL Medical Branch CHOLESTEROL, TRIGLYCERIDES, HDL) ECHO ROUTINE W/DOPPLER 2019-12-28 16:44:[address] [facility] HB ECG ROUTINE & RHYTHM 2019-12-28 13:42:07 Mariya [facility] PROTHROMBIN TIME / INR 2019-12-28 12:24:00 Mariya [facility] ACTIVATED PARTIAL 2019-12-28 12:24:00 Mariya [facility] [place] [facility] TROPONIN I 2019-12-28 10:08:[address] [facility] CT CHEST PULMONARY 2019-12-28 04:44:55 Minna Mike [facility] ANGIOGRAM Medical Branch XR CHEST 1 VW 2019-12-28 02:07:34 Minna Mike [facility] COVID-19 (ID NOW RAPID 2019-12-28 01:50:00 Minna Mike [facility] TESTING) Medical Branch HB ECG ROUTINE & RHYTHM 2019-12-28 01:49:31 Minna Mike [facility] TROPONIN I 2019-12-28 01:49:00 Minna Mike [facility] THYROID STIMULATING 2019-12-28 01:49:00 Mariya [facility] HORMONE [facility] Branch BASIC METABOLIC PANEL 2019-12-28 01:49:00 Minna Mike [facility] (NA, K, CL, CO2, Medical Branch GLUCOSE, BUN, CREATININE, CA) COMP. METABOLIC PANEL 2019-12-28 01:49:00 Minna Mike [facility] ([id number]) Medical Branch CBC WITH DIFF 2019-12-28 01:49:00 Minna Mike [facility] GLYCOSYLATED HEMOGLOBIN 2019-12-28 01:49:00 [facility] (A1C) Medical Branch N-TERMINAL PRO-BNP 2019-12-28 01:49:00 Mariya [facility] XR CHEST 1 VW 2019-07-27 22:14:30 Soila Villar [facility] COVID-19 (ID NOW RAPID 2019-07-27 21:43:00 [facility] Medical Branch TROPONIN I 2019-07-27 21:38:00 Soila Villar [facility] HEPATIC FUNCTION PANEL 2019-07-27 21:38:00 Soila Villar [facility] ([id number]) (ALB,T.PRO,BILI Medical Branch T,BU/BC,ALT,AST,ALK PHOS) BASIC METABOLIC PANEL 2019-07-27 21:38:00 oSila Villar [facility] (NA, K, CL, CO2, Medical Branch GLUCOSE, BUN, CREATININE, CA) CBC WITH DIFFERENTIAL 2019-07-27 21:38:00 Soila Villar [facility] PROTHROMBIN TIME / INR 2019-07-27 21:38:00 [facility]MINAL PRO-BNP 2019-07-27 21:38:00 Soila Villar [facility] 2019-07-27 21:21:22 Soila Villar [facility] NOTICE OF PRIVACY 2019-07-27 20:58:21 Doctor Unassigned, No [facility] PRACTICES Name Medical Branch Encounters Start End Encounter Admission Attending Care Care Encounter Source Date/Time Date/Time Type Type Clinicians Facility Department ID 2021-07-15 2021-07-16 [facility] [id number] [address] [place] [address] 00:00:00 00:00:00 HYUN Justin [facility] 2020-01-17 2020-01-17 Orders Doctor DIONISIO [id number] 00:00:00 00:00:00 Only Unassigned, ASHLEY [id number] [facility] [id number] 2020-01-17 2020-01-17 Orders Doctor DIONISIO [id number] [facility] 00:00:00 00:00:00 Only Unassigned, ASHLEY [id number] ity of [facility] [id number] Nabil as [id number] [facility] 009 Branch 2020-01-01 2020-01-01 Transition Ree Barkley [id number] 00:00:00 00:00:00 of Care Sarah Carvalho [id number] [place] [id number] 2020-01-01 2020-01-01 Transition Ree Barkley [id number] Univers 00:00:00 00:00:00 of Care Sarah Carvalho [id number] ity of [place] [id number] [place] [id number] [facility] 403 Branch 2019-12-31 2019-12-31 Outpatient R DEE DEE URIBE, [facility] [id number] Univers 16:00:00 16:00:00 WILLIAN [id number] ity of [facility] 2019-12-27 2019-12-30 [facility] [id number]. [id number] Univers 18:54:00 14:13:00 Encounter Lexy [place] [id number] [facility]y [facility] [id number] 6 [place] [id number] [facility] 090 Branch 2019-12-27 2019-12-30 [facility] 1.2.840. [id number] 18:54:00 14:13:00 Encounter Dov Kassieramona Meghan Torres 350.1.13.10 [facility] 4.2.7.2.686 [id number] 2019-12-27 2019-12-27 Emergency X [facility] ERT [id number] Univers 18:54:00 18:54:00 MINNA cole [facility] 2019-07-27 2019-07-27 Emergency [facility] [id number] [facility] 16:26:45 18:20:00 Soila Espinosa 350.1.13.10 [facility] 4.2.7.2.686 [facility] [id number] [address] 2019-07-27 2019-07-27 Emergency [facility] E[facility] [id number] Univers 16:26:45 18:20:00 SOILA galvan [facility] 2019-07-27 2019-07-27 [facility] 1.2.840.114 [id number] 16:26:45 18:20:00 Soila Espinosa 350.1.13.10 [place] 4.2.7.2.686 [place] [id number] 084 Results Test Description Test Time Test Comments Results Result Comments Source LACTIC ACID, PLASMA 2021-09-16 11:30:59 Test Item Value Reference Range Interpretation Comme nts LACTIC ACID, PLASMA (test code = 2056) 12.0 MG/DL 4.5-19.8 [id number] 03:42:38 Test Item Value Reference Range Interpretation Comments MAGNESIUM (test code = 2226) 1.9 MG/DL 1.6-2.6 COMPREHENSIVE METABOLIC [id number] 03:42:00 Test Item Value Reference Range Interpretation Comments GLUCOSE (test code = 193 MG/DL 70-99 H 2216) BUN (test code = 14 MG/DL 09-30) CREATININE (test 0.68 MG/DL 0.60-1.30 code = 2214) eGFR (2020 CKD-EPI) 97 ML/MIN/1.73 >60 (test code = 03849) CALC BUN/CREAT (test 21 RATIO 6-28 code = 2235) SODIUM (test code = 140 MEQ/L 164-067 1349) POTASSIUM (test code 4.4 MEQ/L 3.5-5.4 = 2227) CHLORIDE (test code 102 MEQ/L 95-107 = 2215) CARBON DIOXIDE (test 27 MEQ/L 19-31 code = 2206) CALCIUM (test code = 9.0 MG/DL 8.5-10.5 2208) PROTEIN, TOTAL (test 5.9 G/DL 6.1-8.3 L code = 222) ALBUMIN (test code = 3.8 G/DL 3.5-5.2 2200) CALC GLOBULIN (test 2.1 G/DL 1.9-3.7 code = 2240) CALC A/G RATIO (test 1.8 RATIO 1.0-2.6 code = 223) BILIRUBIN, TOTAL <0.2 MG/DL See_Comment [Automated message] (test code = 220) The syste m which generated this result transmit shikha reference range : <=1.2. The refe rence range was not u sed to interpret th is result as normal/abnormal . ALKALINE PHOSPHATASE 61 U/L 40-140 (test code = 220) AST (test code = 24 U/L 9-40 2217) ALT (test code = 25 U/L 5-40 2218) IRON, [id number] 03:42:00 Test Item Value Reference Range Interpretation Comments IRON, SERUM (test 21 UG/DL 37-145 L UNLESS OT HERWISE code = 2222) INDICATED, ALL TESTING PERFORMED [facility] [address] [place] [id number] [place] [address] DIRECTOR: TITA PARIKH M.D. CLIA NUMBER [id number] CAP ACCREDITATION N O. [id number] HEMOGLOBIN [id number] 03:08:42 Test Item Value Reference Range Interpretation Comments HEMOGLOBIN A1c (test 8.0 % 4.2-5.6 H AMERIC AN DIABETES code = 59905) ASSOCIATION IDELINES FOR HGB A1C: PREDIABETES/INC REASED RISK . . . . . . . 5.7 -6.4% DIAGNOSIS OF DI ABETES . . . . . . . . . >=6 .5% WITH CONFIRMATION OR APPROPRIATE SYMPTOMS NOTE: ASSAY MAY BE AFFECTED BY HEMOGLOBINOPATH IES (SICKLE CELL ANEMIA, S- C DISEASE, OTHERS) OR BAKARI FICIALLY LOWERED BY DECR EASED RED CELL SURVIVAL ( HEMOLYTIC ANEMIAS, BLOOD LOSS, ETC.). CONSIDER ALTERN ATE TESTING OR LABORATORY C ONSULTATION. CBC W/AUTO DIFF WITH [id number] 01:59:57 Test Item Value Reference Range Interpretation Comments WBC (test code = 9.7 K/UL 3.5-11.0 1001) RBC (test code = 4.33 M/UL 3.80-5.40 1002) HEMOGLOBIN (test code 11.4 G/DL 11.5-15.5 L = 1003) HEMATOCRIT (test code 35.4 % 34.0-45.0 = 1004) MCV (test code = 81.8 fL 80.0-99.0 1005) MCH (test code = 26.3 PG 25.0-33.0 1006) MCHC (test code = 32.2 G/DL 31.0-36.0 1007) RDW (test code = 13.8 % 11.5-15.0 1038) NEUTROPHILS (test 84.5 % code = 1008) LYMPHOCYTES (test 10.1 % code = 1010) MONOCYTES (test code 3.5 % = 1011) EOSINOPHILS (test 1.1 % code = 1012) BASOPHILS (test code 0.4 % = 1013) IMMATURE GRANULOCYTES 0.4 % (test code = 1036) NUCLEATED RBCS (test 0.0 /100 WBC'S See_Comment [Aut omated code = 1065) message] The sy stem which generated this result transmitted reference range : 0.0. The refere nce range was not u sed to interpret th is result as normal/abnormal . PLATELET COUNT (test 274 K/UL 130-400 code = 1015) ABSOLUTE NEUTROPHILS 8.22 K/UL 1.50-7.50 H (test code = 1066) ABSOLUTE LYMPHOCYTES 0.98 K/UL 1.00-4.00 L (test code = 1067) ABSOLUTE MONOCYTES 0.34 K/UL 0.20-1.00 (test code = 1068) ABSOLUTE EOSINOPHILS 0.11 K/UL 0.00-0.50 (test code = 1040) ABSOLUTE BASOPHILS 0.04 K/UL 0.00-0.20 (test code = 1069) ABS IMMATURE 0.04 K/UL 0.00-0.10 GRANULOCYTES (test code = 1020) ABS NUCLEATED RBCS 0.00 K/UL 0.00-0.11 (test code = 56203) LACTIC ACID, [id number] 14:02:14 Test Item Value Reference Range Interpretation Comments LACTIC ACID, PLASMA (test code = 15.2 MG/DL 4.5-19.8 2056) COMPREHENSIVE METABOLIC [id number] 04:08:01 Test Item Value Reference Range Interpretation Comments GLUCOSE (test code = 104 MG/DL 70-99 H 2216) BUN (test code = 17 MG/DL 8-23 2207) CREATININE (test 0.73 MG/DL 0.60-1.30 code = 2213) eGFR (2020 CKD-EPI) 91 >60 (test code = 19655) ML/MIN/1.73 CALC BUN/CREAT (test 23 RATIO 6-28 code = 2235) SODIUM (test code = 141 MEQ/L 550-394 8815) POTASSIUM (test code 4.7 MEQ/L 3.5-5.4 = 2227) CHLORIDE (test code 100 MEQ/L 95-107 = 2214) CARBON DIOXIDE (test 29 MEQ/L 19-31 code = 220) CALCIUM (test code = 9.9 MG/DL 8.5-10.5 2208) PROTEIN, TOTAL (test 6.5 G/DL 6.1-8.3 code = 222) ALBUMIN (test code = 4.4 G/DL 3.5-5.2 2200) CALC GLOBULIN (test 2.1 G/DL 1.9-3.7 code = 2240) CALC A/G RATIO (test 2.1 RATIO 1.0-2.6 code = 2234) BILIRUBIN, TOTAL 0.2 MG/DL See_Comment [Automated message] (test code = 220) The syste m which generated this result transmitted ref erence range: <=1.2. T he reference range was not used to int erpret this result as normal/abnormal . ALKALINE PHOSPHATASE 65 U/L 40-140 (test code = 2204) AST (test code = 26 U/L 9-40 2217) ALT (test code = 25 U/L 5-40 UNLESS OTH ERWISE 2218) INDICATED, ALL TESTING PERFORM ED ATCLINICAL PATH OLOGY LABORATORIES, [facility]. [address] [place] [address] [employer] DIRECTOR: TITA PARIKH M.D. CLIA NUMBER [id number] CAP ACCREDITATION N O. [id number] LACTIC ACID, [id number] 14:02:59 Test Item Value Reference Range Interpretation Comments LACTIC ACID, 26.7 MG/DL 4.5-19.8 H UNLESS OTHERWI SE PLASMA (test code INDICATED, ALL TESTING = 2056) PERFORMED [facility]. [address] [place] [address] [employer] DIRECTOR: TITA PARIKH M.D. CLIA NUMBER [id number] CAP ACCREDITATION N O. [id number] LACTIC ACID, [id number] 10:45:50 Test Item Value Reference Range Interpretation Comments LACTIC ACID, 27.1 MG/DL 4.5-19.8 H UNLESS OTHERWI SE PLASMA (test code INDICATED, ALL TESTING = 2056) PERFORMED [facility]. [address] [place] [address] [employer] DIRECTOR: TITA PARIKH M.D. CLIA NUMBER [id number] CAP ACCREDITATION N O. [id number] HEMOGLOBIN [id number] 05:02:08 Test Item Value Reference Range Interpretation Comments HEMOGLOBIN A1c (test 8.3 % 4.2-5.6 H AMERIC AN DIABETES code = 52351) ASSOCIATION IDELINES FOR HGB A1C: PREDIABETES/INC REASED RISK . . . . . . . 5.7 -6.4% DIAGNOSIS OF DI ABETES . . . . . . . . . >=6 .5% WITH CONFIRMATION OR APPROPRIATE SYMPTOMS NOTE: ASSAY MAY BE AFFECTED BY HEMOGLOBINOPATH IES (SICKLE CELL ANEMIA, S- C DISEASE, OTHERS) OR BAKARI FICIALLY LOWERED BY DECR EASED RED CELL SURVIVAL ( HEMOLYTIC ANEMIAS, BLOOD LOSS, ETC.). CONSIDER ALTERN ATE TESTING OR LABORATORY C ONSULTATION. COMPREHENSIVE METABOLIC [id number] 03:45:06 Test Item Value Reference Range Interpretation Comments GLUCOSE (test code = 397 MG/DL 70-99 H 2216) BUN (test code = 21 MG/DL -2207) CREATININE (test 0.75 MG/DL 0.60-1.30 code = 221) eGFR (2020 CKD-EPI) 88 ML/MIN/1.73 >60 (test code = 58409) CALC BUN/CREAT (test 28 RATIO 6-28 code = 2235) SODIUM (test code = 140 MEQ/L 651-125 9832) POTASSIUM (test code 4.2 MEQ/L 3.5-5.4 = 2227) CHLORIDE (test code 95 MEQ/L 95-107 = 2214) CARBON DIOXIDE (test 32 MEQ/L 19-31 H code = 220) CALCIUM (test code = 10.0 MG/DL 8.5-10.5 2208) PROTEIN, TOTAL (test 6.7 G/DL 6.1-8.3 code = 2228) ALBUMIN (test code = 4.4 G/DL 3.5-5.2 2200) CALC GLOBULIN (test 2.3 G/DL 1.9-3.7 code = 224) CALC A/G RATIO (test 1.9 RATIO 1.0-2.6 code = 2233) BILIRUBIN, TOTAL 0.3 MG/DL See_Comment [Automated message] (test code = 220) The syste m which generated this result transmit shikha reference range : <=1.2. The refe rence range was not u sed to interpret th is result as normal/abnormal . ALKALINE PHOSPHATASE 73 U/L 40-140 (test code = 220) AST (test code = 19 U/L 9-40 2217) ALT (test code = 25 U/L 5-40 2218) LIPID [id number] 03:45:06 Test Item Value Reference Range Interpretation [...] MOREINFORMATION , SEE CLIENT ANNOUNCE MENT AT [email or web address] [email or web address] RATIO LDL/HDL 0.93 RATIO <3.22 (test code = 2238) LACTIC ACID, [id number] 15:11:52 Test Item Value Reference Range Interpretation Comments LACTIC ACID, 11.7 MG/DL 4.5-19.8 UNLESS OTHERWI SE PLASMA (test code INDICATED, ALL TESTING = 2056) PERFORMED [facility]. [address] [place] [phone] [place] [address] DIRECTOR: TITA PARIKH M.D. CLIA NUMBER [id number] CAP ACCREDITATION N O. [id number] HEMOGLOBIN [id number] 03:44:50 Test Item Value Reference Range Interpretation Comments HEMOGLOBIN A1c (test 7.5 % 4.2-5.6 H AMERIC AN DIABETES code = 35855) ASSOCIATION IDELINES FOR HGB A1C: PREDIABETES/INC REASED RISK . . . . . . . 5.7 -6.4% DIAGNOSIS OF DI ABETES . . . . . . . . . >=6 .5% WITH CONFIRMATION OR APPROPRIATE SYMPTOMS NOTE: ASSAY MAY BE AFFECTED BY HEMOGLOBINOPATH IES (SICKLE CELL ANEMIA, S- C DISEASE, OTHERS) OR BAKARI FICIALLY LOWERED BY DECR EASED RED CELL SURVIVAL ( HEMOLYTIC ANEMIAS, BLOOD LOSS, ETC.). CONSIDER ALTERN ATE TESTING OR LABORATORY C ONSULTATION. COMPREHENSIVE METABOLIC [id number] 03:25:55 Test Item Value Reference Range Interpretation Comments GLUCOSE (test code = 159 MG/DL 70-99 H 2216) BUN (test code = 17 MG/DL 8-23 2207) CREATININE (test 0.56 MG/DL 0.60-1.30 L code = 2214) eGFR (2020 CKD-EPI) 101 >60 (test code = 42246) ML/MIN/1.73 CALC BUN/CREAT (test 30 RATIO 6-28 H code = 2235) SODIUM (test code = 141 MEQ/L 802-911 4382) POTASSIUM (test code 4.4 MEQ/L 3.5-5.4 = 8) CHLORIDE (test code 101 MEQ/L 95-107 = [...] MG/DL See_Comment [Automated message] (test code = 220) The syste m which generated this result transmit shikha reference range : <=1.2. The refe rence range was not u sed to interpret th is result as normal/abnormal . ALKALINE PHOSPHATASE 60 U/L 40-140 (test code = 2203) AST (test code = 20 U/L 9-40 2217) ALT (test code = 21 U/L 5-40 2218) LACTIC ACID, [id number] 15:10:19 Test Item Value Reference Range Interpretation Comments LACTIC ACID, 34.5 MG/DL 4.5-19.8 H UNLESS OTHERWI SE PLASMA (test code INDICATED, ALL TESTING = 2056) PERFORMED [facility] [employer]. [address] [place] [address] [employer] DIRECTOR: TITA PARIKH M.D. CLIA NUMBER [id number] CAP ACCREDITATION N O. [id number] LACTIC ACID, [id number] 13:30:20 Test Item Value Reference Range Interpretation Comments LACTIC ACID, 18.5 MG/DL 4.5-19.8 UNLESS OTHERWI SE PLASMA (test code INDICATED, ALL TESTING = 2056) PERFORMED [facility] [employer]. [address] [place] [address] [employer] DIRECTOR: TITA PARIKH M.D. CLIA NUMBER [id number] CAP ACCREDITATION N O. [id number] TSH, THIRD [id number] 06:41:17 Test Item Value Reference Range Interpretation Comments TSH, THIRD GENERATION (test code 1.300 UIU/ML 0.400-4.100 = 2821) LIPID [id number] 04:18:20 Test Item Value Reference Range Interpretation [...] MOREINFORMATION , SEE CLIENT ANNOUNCE MENT AT [email or web address] [email or web address] RATIO LDL/HDL 0.85 RATIO <3.22 (test code = 2238) COMPREHENSIVE METABOLIC [id number] 04:18:20 Test Item Value Reference Range Interpretation Comments GLUCOSE (test code = 93 MG/DL 70-99 2216) BUN (test code = 15 MG/DL 8-23 2207) CREATININE (test 0.72 MG/DL 0.60-1.30 code = 2214) eGFR (2020 CKD-EPI) 93 ML/MIN/1.73 >60 (test code = 73112) CALC BUN/CREAT (test 21 RATIO 6-28 code = 2235) SODIUM (test code = 143 MEQ/L 050-876 3508) POTASSIUM (test code 3.8 MEQ/L 3.5-5.4 = 2227) CHLORIDE (test code 98 MEQ/L 95-107 = 2214) CARBON DIOXIDE (test 29 MEQ/L 19-31 code [...] [Automated message] (test code = 2207) [employer] which generated this result transmit shikha reference range : <=1.2. The refe rence range was not u sed to interpret th is result as normal/abnormal . ALKALINE PHOSPHATASE 61 U/L 40-140 (test code = 2204) AST (test code = 20 U/L 9-40 2217) ALT (test code = 36 U/L 5-40 2218) HEMOGLOBIN [id number] 03:31:34 Test Item Value Reference Range Interpretation Comments HEMOGLOBIN A1c (test 7.8 % 4.2-5.6 H AMERIC AN DIABETES code = 80433) ASSOCIATION IDELINES FOR HGB A1C: PREDIABETES/INC REASED RISK . . . . . . . 5.7 -6.4% DIAGNOSIS OF DI ABETES . . . . . . . . . >=6 .5% WITH CONFIRMATION OR APPROPRIATE SYMPTOMS NOTE: ASSAY MAY BE AFFECTED BY HEMOGLOBINOPATH IES (SICKLE CELL ANEMIA, S- C DISEASE, OTHERS) OR BAKARI FICIALLY LOWERED BY DECR EASED RED CELL SURVIVAL ( HEMOLYTIC ANEMIAS, BLOOD LOSS, ETC.). CONSIDER ALTERN ATE TESTING OR LABORATORY C ONSULTATION. POCT GLUCOSE (AUTOMATED)2019-12-30 15:33:00 Test Item Value Reference Range Interpretation Comments POCT GLU (test code = 204 mg/dL 70-110 H Notifi ed Provider [id number]) Lab Interpretation (test Abnormal code = 23373-6) [facility] (NA, K, CL, CO2, GLUCOSE, BUN, CREATININE, CA)2019-12-30 10:50:00 Test Item Value Reference Range Interpretation Comments NA (test code = 137 mmol/L 135-145 4235831894) K (test code = 4.1 mmol/L 3.5-5 9211215865) CL (test code = 103 mmol/L 98-108 3717852951) CO2 TOTAL (test code = 29 mmol/L 23-31 3980196151) AGAP (test code = 2-16 9246730594) BUN (test code = 21 mg/dL 7-23 1135060350) GLUCOSE (test code = 97 mg/dL 70-110 8475549112) CREATININE (test code 0.67 mg/dL 0.5-1.04 = 2242351725) CALCIUM (test code = 9.0 mg/dL 8.6-10.6 2518721965) eGFR Calculation mL/min/1.73m2 (Non-) (test code = 5171585209) eGFR Calculation mL/min/1.73m2 () (test code = 1160946035) JOSHUA (test code = JOSHUA) Association of [...] or urine or abnormalities in imaging tests). [facility]2020-[facility]-21 10:50:00 Test Item Value Reference Range Interpretation Comments MAGNESIUM (test code = 5328212204) 2.2 mg/dL 1.7-2.4 Lab Interpretation (test code = Normal 61677-7) [facility] WITH [id number] 10:26:00 Test Item Value Reference Range Interpretation Comments WBC (test code = See_Comment [Automated 1790-2) message] The sy stem which generated this [...] RDW-SD (test code = 44.0 fL 39-49.9 92276-5) RDW-CV (test code = 12.6 % 12-15.5 788-0) PLT (test code = See_Comment [Automated 777-3) message] The sy stem which generated this result transmitted reference range : 166 - 358 10*3/ ?L. The reference r ramona was not used to interpret this result as normal/abnormal . MPV (test code = 9.7 fL 9.5-12.9 81358-5) NRBC/100 WBC (test See_Comment [Automat ed code = 2284958923) message] The system which generated this result transmitted reference range : 0.0 - 10.0 /100 WBCs. The refer ence range was not u sed to interpret th is result as normal/abnormal . NRBC x10^3 (test code <0.01 See_Comment [Auto mated = 9161846201) message] The s ystem which generated this result transmitted reference range : 10*3/?L. The reference range was not used to interpret this result as normal/abnormal . GRAN MAT (NEUT) % 57.7 % (test code = 770-8) IMM GRAN % (test code 0.20 % = 8382765496) LYMPH % (test code = 31.8 % 736-9) MONO % (test code = 8.1 % 5905-5) EOS % (test code = 1.9 % 713-8) BASO % (test code = 0.3 % 706-2) GRAN MAT x10^3(ANC) 5.12 10*3/uL 1.88-7.09 (test code = 2669772165) IMM GRAN x10^3 (test <0.03 0-0.06 code = 2886569683) LYMPH x10^3 (test code 2.82 10*3/uL 1.32-3.29 = 731-0) MONO x10^3 (test code 0.72 10*3/uL 0.33-0.92 = 742-7) EOS x10^3 (test code = 0.17 10*3/uL 0.03-0.39 711-2) BASO x10^3 (test code 0.03 10*3/uL 0.01-0.07 = 704-7) Lab Interpretation Abnormal (test code = 17869-0) [facility] GLUCOSE (AUTOMATED)2019-12-30 01:52:00 Test Item Value Reference Range Interpretation Comments POCT GLU (test code = 1044893753) 199 mg/dL 70-110 H Lab Interpretation (test code = Abnormal 23492-6) [facility] GLUCOSE (AUTOMATED)2019-12-29 23:34:00 Test Item Value Reference Range Interpretation Comments POCT GLU (test code = 4642451640) 120 mg/dL 70-110 H Lab Interpretation (test code = Abnormal 28209-6) [facility] GLUCOSE (AUTOMATED)2019-12-29 14:02:00 Test Item Value Reference Range Interpretation Comments POCT GLU (test code = 3189391344) 99 mg/dL 70-110 Lab Interpretation (test code = Normal 42498-2) [facility] Metabolic Panel (NA, K, CL, CO2, GLUCOSE, BUN, CREATININE, CA)2019-12-29 11:40:00 Test Item Value Reference Range Interpretation Comments NA (test code = 139 mmol/L 135-145 7223824597) K (test code = 4.2 mmol/L 3.5-5 Slight 1015174610) hemolysis CL (test code = 104 mmol/L 98-108 8812766164) CO2 TOTAL (test code 30 mmol/L 23-31 = 9363587785) AGAP (test code = 2-16 6299986405) BUN (test code = 18 mg/dL 7-23 Slight 4283320141) hemolysis GLUCOSE (test code = 116 mg/dL 70-110 H 9644113649) CREATININE (test code 0.61 mg/dL 0.5-1.04 = 7165564179) CALCIUM (test code = 8.9 mg/dL 8.6-10.6 5684276141) eGFR Calculation mL/min/1.73m2 (Non-) (test code = 9634131254) eGFR Calculation mL/min/1.73m2 () (test code = 2580229589) JOSHUA (test code = JOSHUA) Association of [...] tests). Lab Interpretation Abnormal (test code = 29567-9) [facility] Center[facility] [id number] 11:40:00 Test Item Value Reference Range Interpretation Comments MAGNESIUM (test code = 0949021919) 2.2 mg/dL 1.7-2.4 Lab Interpretation (test code = Normal 31000-5) [facility] CenteraP[facility] (for use with Heparin Drip)2019-12-29 11:21:00 Test Item Value Reference Range Interpretation Comments APTT Patient (test code See_Comment HH [Au tomated message] = 3173-2) The system [employer] generated this result transmitted ref erence range: 26 - 36 Seconds. The reference range was not used to int erpret this result as normal/abnormal . Lab Interpretation (test Abnormal code = 91064-2) [facility] GLUCOSE (AUTOMATED)2019-12-29 04:19:00 Test Item Value Reference Range Interpretation Comments POCT GLU (test code = 0310774855) 115 mg/dL 70-110 H Lab Interpretation (test code = Abnormal 31809-5) [facility] CenterLipid Panel (Total Cholesterol, Triglycerides, HDL) - [id number] 03:03:00 Test Item Value Reference Range Interpretation Comments CHOL (test code = 164 mg/dL 120-200 0515762827) HDL (test code = 61 mg/dL >50 0650741510) HDLC RATIO (test code = See_Comment [Au tomated message] 5153775036) The system [employer] generated this result transmit shikha reference range : <=4.5. The refe rence range was not u sed to interpret th is result as normal/abnormal . TRIG (test code = 63 mg/dL 30-170 8399087035) LDL CHOL (test code = 90 mg/dL See_Comment [Auto mated message] 29793-1) The system [employer] generated this result transmit shikha reference range : <=160. The refe rence range was not u sed to interpret th is result as normal/abnormal . VLDL (test code = 13 mg/dL 5-60 3703276184) Lab Interpretation (test Normal code = 09109-1) [facility] (for use with Heparin Drip)2019-12-29 00:36:00 Test Item Value Reference Range Interpretation Comments APTT Patient (test code See_Comment H [Au tomated message] = 3173-2) The system [employer] generated this result transmitted ref erence range: 26 - 36 Seconds. The reference range was not used to int erpret this result as normal/abnormal . Lab Interpretation (test Abnormal code = 45601-9) [facility] CenterTROPONIN [id number] 21:42:00 Test Item Value Reference Range Interpretation Comments TROPONIN I (test 0.081 ng/mL See_Comment H [Automated code = 8997241377) message] The system which generated this result [...] ? Lab Interpretation Abnormal (test code = 53318-1) [facility] CenterProthrombin Time (PT) / [id number] 12:39:00 Test Item Value Reference Range Interpretation Comments PROTIME PATIENT (test See_Comment [Auto mated message] code = 5964-2) The system [employer] generated this result transmitted ref erence range: 10.1 - 1 2.6 Seconds. The re ference range was not u sed to interpret this result as normal/abnor mal. INR (test code = 6301-6) Nor mal INR <1.1; Warfarin Therap eutic range 2.0 to 3. 0 or 2.5 to 3.5, dep ending upon the indica tions. Lab Interpretation (test Normal code = 03450-4) [facility] CenteraPTT2020-11-19 12:39:00 Test Item Value Reference Range Interpretation Comments APTT Patient (test code = See_Comment [ Automated message] 3173-2) The system [employer] generated this result transmitted ref erence range: 26 - 36 Seconds. The re ference range was not u sed to interpret this result as normal/abnor mal. Lab Interpretation (test Normal code = 17502-3) [facility] CenterTroponin [id number] 11:11:00 Test Item Value Reference Range Interpretation Comments TROPONIN I (test 0.148 ng/mL See_Comment H [Automated code = 6372840328) message] The system which generated this result [...] ? Lab Interpretation Abnormal (test code = 61360-5) [facility] CenterGlycosylated Hemoglobin (A1C)2019-12-28 10:57:00 Test Item Value Reference Range Interpretation Comments HGB A1C (test code = 5.8 % 4-6 4548-4) JOSHUA (test code = JOSHUA) %A1C (NGSP) Interpretation (ADA)4.8-5.6 ? ? Normal or (Non-Diabetic Range)5.7-6.4 ? ? Increased Risk (Pre-Diabetic)>6.5 ?Diabetes Indicated Lab Interpretation Normal (test code = 68164-4) [facility] CenterThyroid Stimulating Hormone (TSH)2019-12-28 10:22:00 Test Item Value Reference Range Interpretation Comments TSH (test code = See_Comment Biotin has been [id number]) reported to cau se a negative bias, interpret resul ts relative to pat ient's use of biotin. [Automated mess age] The system [employer] generated this result transmitted ref erence range: 0.45 - 4 .70 mIU/L. The refe rence range was not u sed to interpret this result as normal/abnor mal. Lab Interpretation (test Normal code = 20394-9) [facility] CenterN-Terminal Bxw-[id number] 10:22:00 Test Item Value Reference Range Interpretation Comments NT-proBNP (test code 636 pg/mL See_Comment H [Autom ated = [id number]) message] The system which generated this result transmitted reference range : <=125. The reference range was not used to interpret this result as normal/abnormal . JOSHUA (test code = JOSHUA) Biotin has been reported to cause a negative bias, interpret results relative to patient's use of biotin. Lab Interpretation Abnormal (test code = 53352-2) [facility] CenterCT CHEST PULMONARY [id number] 05:35:31 No acute pulmonary embolism through the [...] apices, without complication. ?Display field ofview: 33 cm.FINDINGS: PULMONARY ARTERIES: Contrast bolus timing is excellent for evaluation of pulmonary arterialvasculature. No filling defects are seen to the subsegmental level. Normal caliber of the main pulmonary artery. CHEST: Lower neck/thyroid: Unremarkable. Lungs: Moderate bilateral upper lobe predominant centrilobularemphysematous changes. There are no solid nodules. Mild bibasilaratelectasis. Central airway: Central airways are patent. Pleura: No pleural effusion, thickening or pneumothorax. Thoracicaorta and great vessels: As a normal variant, the left vertebralartery originates directly from the a ortic arch. The aorta is normal indiameter. Mild atherosclerotic calcifications at the aortic arch andproximal left subclavian artery. Heart and pericardium: Mild to moderate coronary arterial calcificationsare most prominent in LAD and circumflex distribution. Unremarkable cardiacmorphology and pericardium. Mediastinum and lymph nodes: No enlarged thoracic lymph nodes. Thoracic spine and chest wall:Unremarkable, with normal thoracic vertebralbody heights. Visualized upper abdomen: Right upper renal pole 2.6 cm hypoattenuatinglesion with attenuation slightly higher than expected for simple fluid (22Hounsfield units). Accessory right renal artery. Somewhat diminutive appearance of the SMA without significantatherosclerotic calcifications. Mild poststenotic dilatation of the moredistal SMA. [facility], Radiant Results Inft User - 12/27/2019 11:36 PM CSTCT CHEST PULMONARY ANGIOGRAMHISTORY: 64 years-old;Female; PE suspected, intermediate prob, neg D-dimerCOMPARISON: None.TECHNIQUE: Helical CT was perfor med after the administration of 100 mLOmnipaque-350 intravenous contrast and reconstructed at 1.0 mmslicethickness from lung base to apices, without complication. [...] thoracic lymph nodes.Thoracic spine and chest wall: Unremarkable, with normal thoracic vertebralbody heights.Visualized upper abdomen: Right upper renal pole 2.6 cm hypoattenuatinglesion with attenuation slightly higher than expected for simple fluid (22Hounsfield units). Accessory right renal artery.Somewhat diminutive appearance of the SMA without significantatherosclerotic calcifications. Mild poststenotic dilatation of the moredistal SMA.IMPRESSIONNo acute pulmonary embolism through the segmental level.Moderate emphysematous changes.Technically indeterminate 1.5 cm left adrenal nodule. Recommend multiphasicCT or MRI adrenal protocol to further characterize.Preliminary Report Dictated by Resident: Dillon Rosales MD., have reviewed this study and agree with theabove report. [facility] 1 [id number] 03:07:42 No acute cardiopulmonary abnormality. Preliminary Report [...] acute osseous abnormality. [facility], Radiant Results Inft User- 12/27/2019 9:08 PM CSTXR CHEST 1 VWHISTORY: 64 years-old; Female; SOB, Wheezing COMPARISON: 07/27/2019TECHNIQUE: Single AP view of the chest.FINDINGS:The lungs are well- expanded and clear with no focal consolidation.Suspected emphysematous changes. There is no pleural effusion orpneumothorax.The cardiac silhouette is within normal limits. Aortic arch calcificationis seen.There is no acute osseous abn ormality.IMPRESSIONNo acute cardiopulmonary abnormality.Preliminary Report Dictated by Resident: Dillon Rosaleski, MD., have reviewed this study and agree with theabove report.[facility] CenterTONIE [id number] 02:26:00 Test Item Value Reference Range Interpretation Comments TROPONIN I (test 0.048 ng/mL See_Comment H [Automated code = 0260319622) message] The system which generated this result [...] ? Lab Interpretation Abnormal (test code = 31209-4) [facility] CenterCOVID-19 (ID NOW RAPID TESTING)2019-12-28 02:22:00 Test Item Value Reference Range Interpretation Comments SARS-CoV-2 Rapid ID NOW Not Detected Not Detected (test code = 80745-8) JOSHUA (test code = JOSHUA) ID NOW COVID-19 Assay is an isothermal nucleic acid amplification test intended for the qualitative detection of nucleic acid from SARS-CoV-2 viral RNA in nasopharyngeal ([employer]ISE [employer]ADER) specimens. It is used under Emergency Use [...] indicated. Lab Interpretation Normal (test code = 37998-4) [facility] METABOLIC PANEL ([id number])2019-12-28 02:16:00 Test Item Value Reference Range Interpretation Comments NA (test code = 137 mmol/L 135-145 8260074376) K (test code = 3.8 mmol/L 3.5-5 0538282972) CL (test code = 101 mmol/L 98-108 4610134949) CO2 TOTAL (test code = 31 mmol/L 23-31 5776733480) AGAP (test code = 2-16 3024564345) BUN (test code = 18 mg/dL 7-23 9256183783) GLUCOSE (test code = 145 mg/dL 70-110 H 3369241718) CREATININE (test code = 0.55 mg/dL 0.5-1.04 8876121048) TOTAL BILI (test code = 0.4 mg/dL 0.1-1.4 1635949184) CALCIUM (test code = 8.8 mg/dL 8.6-10.6 9302586084) T PROTEIN (test code = 6.7 g/dL 6.3-8.2 7089249857) ALBUMIN (test code = 4.1 g/dL 3.5-5 7740381280) ALK PHOS (test code = 72 U/L 34-122 3053493850) ALTv (test code = 40 U/L 5-35 H 1742-6) AST(SGOT) (test code = 46 U/L 13-40 H 8235342838) eGFR Calculation mL/min/1.73m2 (Non-) (test code = 3836553583) eGFR Calculation mL/min/1.73m2 () (test code = 5924671658) JOSHUA (test code = JOSHUA) Association of [...] tests). Lab Interpretation Abnormal (test code = 65400-2) [facility] (NA, K, CL, CO2, GLUCOSE, BUN, CREATININE, CA)2019-12-28 02:16:00 Test Item Value Reference Range Interpretation Comments NA (test code = 137 mmol/L 135-145 8086372092) K (test code = 3.8 mmol/L 3.5-5 8427550661) CL (test code = 101 mmol/L 98-108 3898441287) CO2 TOTAL (test code = 31 mmol/L 23-31 1979463407) AGAP (test code = 2-16 9059971843) BUN (test code = 18 mg/dL 7-23 4705731344) GLUCOSE (test code = 145 mg/dL 70-110 H 5949665622) CREATININE (test code = 0.55 mg/dL 0.5-1.04 6202013021) CALCIUM (test code = 8.8 mg/dL 8.6-10.6 2101059880) eGFR Calculation mL/min/1.73m2 (Non-) (test code = 2317666435) eGFR Calculation mL/min/1.73m2 () (test code = 4153499605) JOSHUA (test code = JOSHUA) Association of [...] tests). Lab Interpretation Abnormal (test code = 76482-9) [facility] WITH [id number] 02:01:00 Test Item Value Reference Range Interpretation Comments WBC (test code = See_Comment [Automated 3347-2) message] The sy stem which generated this result transmitted reference range : 4.30 - 11.10 10*3/?L. The reference range was not used to interpret this result as normal/abnormal . RBC (test code = See_Comment [Automated 500-8) message] The sy stem which generated this [...] RDW-SD (test code = 42.5 fL 39-49.9 93738-3) RDW-CV (test code = 12.2 % 12-15.5 788-0) PLT (test code = See_Comment [Automated 777-3) message] The sy stem which generated this result transmitted reference range : 166 - 358 10*3/ ?L. The reference r ramona was not used to interpret this result as normal/abnormal . MPV (test code = 9.7 fL 9.5-12.9 50083-8) NRBC/100 WBC (test See_Comment [Automat ed code = 1115791620) message] The system which generated this result transmitted reference range : 0.0 - 10.0 /100 WBCs. The refer ence range was not u sed to interpret th is result as normal/abnormal . NRBC x10^3 (test code <0.01 See_Comment [Auto mated = 0830276734) message] The s ystem which generated this result transmitted reference range : 10*3/?L. The reference range was not used to interpret this result as normal/abnormal . GRAN MAT (NEUT) % 52.2 % (test code = 770-8) IMM GRAN % (test code 0.30 % = 7491701543) LYMPH % (test code = 36.0 % 736-9) MONO % (test code = 7.3 % 5905-5) EOS % (test code = 3.7 % 713-8) BASO % (test code = 0.5 % 706-2) GRAN MAT x10^3(ANC) 3.36 10*3/uL 1.88-7.09 (test code = 1754405357) IMM GRAN x10^3 (test <0.03 0-0.06 code = 3332424520) LYMPH x10^3 (test code 2.32 10*3/uL 1.32-3.29 = 731-0) MONO x10^3 (test code 0.47 10*3/uL 0.33-0.92 = 742-7) EOS x10^3 (test code = 0.24 10*3/uL 0.03-0.39 711-2) BASO x10^3 (test code 0.03 10*3/uL 0.01-0.07 = 704-7) Lab Interpretation Abnormal (test code = 01520-7) [facility] 1 [id number] 22:39:59 No acute cardiopulmonary abnormality. Emphysematous changes. Preliminary Report Dictated by Resident: Chaitanya Reyes MD., have reviewed this study and agree with the abovereport.EXAM: XR CHEST 1 VW CLINICAL INDICATION: chest pain COMPARISON: None FINDINGS: The lungs are hyperexpanded and clear without focal consolidation, pleuraleffusion, or pneumothorax. The cardiac silhouette is norm al in size. No acute osseous abnormality. [facility], Radiant Results Inft User - 07/27/2019 5:41 PM CDTEXAM: XR CHEST 1 VWCLINICAL INDICATION: chest pain COMPARISON: NoneFINDINGS:The lungs are hyperexpandedand clear without focal consolidation, pleuraleffusion, or pneumothorax. The cardiac silhouette is no rmal in size. No acute osseous abnormality. IMPRESSIONNo acute cardiopulmonary abnormality.Emphysematous changes.Preliminary Report Dictated by Resident: Chaitanya Lainez MD., have reviewed this study and agree with the abovereport.[facility] CenterTrcumberland medical centernin [id number] 22:28:00 Test Item Value Reference Range Interpretation Comments TROPONIN I (test <0.012 See_Comment [Automated code = 6292015424) message] The system which generated this result [...] ? Lab Interpretation Normal (test code = 80141-6) [facility] CenterN-TERMINAL [id number] 22:24:00 Test Item Value Reference Range Interpretation Comments NT-proBNP (test code 675 pg/mL See_Comment H [Autom ated = 4396911082) message] The system which generated this result transmitted reference range : <=125. The reference range was not used to interpret this result as normal/abnormal . JOSHUA (test code = JOSHUA) Biotin has been reported to cause a negative bias, interpret results relative to patient's use of biotin. Lab Interpretation Abnormal (test code = 11635-2) [facility] CenterProthrombin Time (PT) / [id number] 22:20:00 Test Item Value Reference Range Interpretation [...] tions. Lab Interpretation (test Normal code = 50468-2) [facility] Metabolic Panel (NA, K, CL, CO2, GLUCOSE, BUN, CREATININE, CA)2019-07-27 22:17:00 Test Item Value Reference Range Interpretation Comments NA (test code = 138 mmol/L 135-145 3632468961) K (test code = 4.4 mmol/L 3.5-5 6787541952) CL (test code = 101 mmol/L 98-108 7194820117) CO2 TOTAL (test code = 28 mmol/L 23-31 7120085348) AGAP (test code = 2-16 3956159320) BUN (test code = 16 mg/dL 7-23 8908539958) GLUCOSE (test code = 88 mg/dL 70-110 4014017589) CREATININE (test code 0.55 mg/dL 0.5-1.04 = 2129717735) CALCIUM (test code = 10.1 mg/dL 8.6-10.6 8752601416) eGFR Calculation mL/min/1.73m2 (Non-) (test code = 9144768507) eGFR Calculation mL/min/1.73m2 () (test code = 1794572115) JOSHUA (test code = JOSHUA) Association of [...] or urine or abnormalities in imaging tests). [facility] CenterHepatic Function Panel (ALB, T.PRO, BILI T, BU/BC, ALT, AST, ALK PHOS)2019-07-27 22:17:00 Test Item Value Reference Range Interpretation Comments TOTAL BILI (test code = 4145773074) 0.7 mg/dL 0.1-1.1 BILI UNCON (test code = 0425468379) 0.8 mg/dL 0.1-1.1 BILI CONJ (test code = 8434014599) 0.0 mg/dL 0-0.3 T PROTEIN (test code = 2399045520) 7.7 g/dL 6.3-8.2 ALBUMIN (test code = 3216358284) 4.8 g/dL 3.5-5 ALK PHOS (test code = 2817888124) 49 U/L 34-122 ALTv (test code = 1742-6) 35 U/L 5-35 AST(SGOT) (test code = 6241085657) 42 U/L 13-40 H Lab Interpretation (test code = Abnormal 07252-3) [facility] CenterCOVID-19 (ID NOW RAPID TESTING)2019-07-27 22:16:00 Test Item Value Reference Range Interpretation Comments SARS-CoV-2 Rapid ID NOW Not Detected Not Detected (test code = 21149-7) JOSHUA (test code = JOSHUA) ID NOW COVID-19 Assay is an isothermal nucleic acid amplification test intended for the qualitative detection of nucleic acid from SARS-CoV-2 viral RNA in nasopharyngeal ([employer]ISE [employer]ADER) specimens. It is used under Emergency Use [...] indicated. Lab Interpretation Normal (test code = 59018-6) [facility] WITH [id number] 21:58:00 Test Item Value Reference Range Interpretation Comments WBC (test code = See_Comment [Automated 1592-2) message] The sy stem which generated this result transmitted reference range : 4.30 - 11.10 10*3/?L. The reference range was not used to interpret this result as normal/abnormal . RBC (test code = See_Comment [Automated 439-8) message] The sy stem which generated this [...] RDW-SD (test code = 41.4 fL 39-49.9 28420-4) RDW-CV (test code = 12.2 % 12-15.5 788-0) PLT (test code = See_Comment [Automated 777-3) message] The sy stem which generated this result transmitted reference range : 166 - 358 10*3/ ?L. The reference r ramona was not used to interpret this result as normal/abnormal . MPV (test code = 9.7 fL 9.5-12.9 47232-7) NRBC/100 WBC (test See_Comment [Automat ed code = 6753377960) message] The system which generated this result transmitted reference range : 0.0 - 10.0 /100 WBCs. The refer ence range was not u sed to interpret th is result as normal/abnormal . NRBC x10^3 (test code <0.01 See_Comment [Auto mated = 6228747195) message] The s ystem which generated this result transmitted reference range : 10*3/?L. The reference range was not used to interpret this result as normal/abnormal . GRAN MAT (NEUT) % 72.2 % (test code = 770-8) IMM GRAN % (test code 0.40 % = 7915014684) LYMPH % (test code = 19.5 % 736-9) MONO % (test code = 5.2 % 5905-5) EOS % (test code = 2.1 % 713-8) BASO % (test code = 0.6 % 706-2) GRAN MAT x10^3(ANC) 7.15 10*3/uL 1.88-7.09 H (test code = 3570934363) IMM GRAN x10^3 (test 0.04 10*3/uL 0-0.06 code = 2133676408) LYMPH x10^3 (test code 1.93 10*3/uL 1.32-3.29 = 731-0) MONO x10^3 (test code 0.52 10*3/uL 0.33-0.92 = 742-7) EOS x10^3 (test code = 0.21 10*3/uL 0.03-0.39 711-2) BASO x10^3 (test code 0.06 10*3/uL 0.01-0.07 = 704-7) Lab Interpretation Abnormal (test code = 82939-3) [facility]"
--- NOTE | 2021-09-18 16:20 | RAD REPORT ---
EXAM DESCRIPTION: RAD - Elbow Right 3 View - 09/18/2021 4:10 pm CLINICAL HISTORY: PAIN COMPARISON: No comparisons FINDINGS: No fracture or dislocation seen. Tiny olecranon spur.
--- NOTE | 2021-09-18 16:20 | RAD REPORT ---
EXAM DESCRIPTION: RAD - Wrist Right 3 View - 09/18/2021 4:10 pm CLINICAL HISTORY: PAIN Pain COMPARISON: No comparisons FINDINGS: No fracture or dislocation seen. No foreign body or other soft tissue abnormality. IMPRESSION: Negative examination.
[2021-09-18] MEDS ORDERED: HYDROCODONE/APAP 5/325 MG TAB ONE ×2 (16:32→17:56)
--- NOTE | 2021-09-18 17:27 | ER ---
Nurse's Notes [facility] Name: Dalia Reyes Age: 65 yrs Sex: Female : 1955 Arrival Date: 09/18/2021 Time: 15:22 Bed 11 Private MD: Diagnosis: Pain in right wrist-possible carpal tunnel syndrome Presentation: 09/18 15:33 Chief complaint: Patient states: right wrist pain X one month. Coronavirus screen: At iw this time, the client does not indicate any symptoms associated with coronavirus-19. Ebola Screen: Patient negative for fever greater than or equal to 101.5 degrees Fahrenheit, and additional compatible Ebola Virus Disease symptoms Patient denies exposure to infectious person. Patient denies travel to an Ebola-affected area in the 21 days before illness onset. No symptoms or risks identified at this time. Initial Sepsis Screen: Does the patient meet any 2 criteria? No. Patient's initial sepsis screen is negative. Does the patient have a suspected source of infection? No. Patient's initial sepsis screen is negative. Risk Assessment: Do you want to hurt yourself or someone else? Patient reports no desire to harm self or others. Onset of symptoms was August 2021. 15:33 Method Of Arrival: Wheelchair iw 15:33 Acuity: CONSTANTINO 4 iw Triage Assessment: 16:29 General: Appears in no apparent distress. uncomfortable, well groomed, unkempt, bm7 Behavior is calm, cooperative, appropriate for age. Pain: Complains of pain in right wrist Pain does not radiate. Pain currently is 8 out of 10 on a pain scale. Historical: - Allergies: 15:33 Benadryl; iw 15:33 Lorazepam; iw 15:33 Valium; iw - PMHx: 15:33 Chronic obstructive lung disease; diabetes mellitus; Emphysema; Hypercholesterolemia; iw Hypertensive disorder; - PSHx: 15:33 section; Heart Stents; iw - Immunization history:: Adult Immunizations up to date. - Social history:: Smoking status: Patient/guardian denies using tobacco products. Vital Signs: 16:27 BP 128 / 69; Pulse 70; Resp 18; Temp 97.0(TE); Pulse Ox 97% on 2 lpm NC; Weight 57.15 bm7 kg; Height 5 ft. 6 in. (167.64 cm); Pain 8/10; 16:27 Body Mass Index 20.34 (57.15 kg, 167.64 cm) bm7 ED Course: 15:22 Patient arrived in ED. mr 15:23 Tyron Quach NP is PHCP. pm1 15:23 Jeronimo Jacobs DO is Attending Physician. pm1 15:33 Triage completed. iw 15:34 Arm band placed on. iw 16:12 Elbow Right 3 View XRAY In Process Unspecified. EDMS 16:12 Wrist Right 3 View XRAY In Process Unspecified. EDMS 17:36 Sunil Sanchez MD is Referral Physician. pm1 17:37 Phoebe Hong, RN is Primary Nurse. iw Administered Medications: 16:31 Drug: HYDROcodone-acetaminophen 5 mg-325 mg 1 tabs Route: PO; iw 17:45 Drug: HYDROcodone-acetaminophen (5 mg-500 mg) 1 tabs Route: PO; iw Outcome: 17:27 Discharge ordered by MD. pm1 18:02 Patient left the ED. iw Signatures: Dispatcher [employer] EDNJ Fiordaliza Edgar mr Phoebe Hong, RN RN iw Tyron Quach NP APPOINTMENT CLERK pm1 Palak Vences RN RN bm7
--- NOTE | 2021-09-18 17:27 | EDPHYS ---
Physician Documentation [facility] Name: Dalia Reyes Age: 65 yrs Sex: Female : 1955 Arrival Date: 09/18/2021 Time: 15:22 Bed 11 Private MD: ED Physician Jeronimo Jacobs HPI: 09/18 15:54 This 65 yrs old Female presents to ER via Wheelchair with complaints of Wrist Pain. pm1 15:54 The patient or guardian reports pain. The complaints affect the right wrist diffusely. pm1 Context: The problem was sustained at home, resulted from after bumping her right elbow on the screen door knob. Onset: The symptoms/episode began/occurred 1 month(s) ago. Modifying factors: The symptoms are alleviated by nothing, the symptoms are aggravated by nothing. Associated signs and symptoms: Pertinent positives: Pain with movement of all right fingers, Pertinent negatives: cyanosis distally, decreased sensation distally, numbness distally, tingling distally. The patient has not experienced similar symptoms in the past. The patient has not recently seen a physician. Historical: - Allergies: 15:33 Benadryl; iw 15:33 Lorazepam; iw 15:33 Valium; iw - PMHx: 15:33 Chronic obstructive lung disease; diabetes mellitus; Emphysema; Hypercholesterolemia; iw Hypertensive disorder; - PSHx: 15:33 section; Heart Stents; iw - Immunization history:: Adult Immunizations up to date. - Social history:: Smoking status: Patient/guardian denies using tobacco products. ROS: 15:54 Constitutional: Negative for fever, chills, and weight loss, Cardiovascular: Negative pm1 for chest pain, palpitations, and edema, Respiratory: Negative for shortness of breath, cough, wheezing, and pleuritic chest pain. 15:54 Skin: Negative for injury, rash, and discoloration, Neuro: Negative for headache, weakness, numbness, tingling, and seizure. 15:54 MS/extremity: Positive for pain, of the right wrist and right elbow. Right wrist greater than right elbow, Negative for deformity, swelling. 15:54 All other systems are negative. Exam: 15:54 Constitutional: This is a well developed, well nourished patient who is awake, alert, pm1 and in no acute distress. Head/Face: Normocephalic, atraumatic. 15:54 Cardiovascular: Exam negative for acute changes, Rate: normal, Rhythm: regular, Pulses: no pulse deficits are appreciated. 15:54 Respiratory: Exam negative for acute changes, respiratory distress, shortness of breath. 15:54 Musculoskeletal/extremity: Extremities: grossly normal except: noted in the : Positive for Phalen and Tinel's sign to right wrist, There is no evidence of decreased ROM, deformity, tenderness, noted in the Right elbow: no evidence of decreased ROM, pain, swelling. 15:54 Neuro: Exam negative for acute changes, Orientation: is normal, Mentation: is normal, Motor: is normal, moves all fours. Vital Signs: 16:27 BP 128 / 69; Pulse 70; Resp 18; Temp 97.0(TE); Pulse Ox 97% on 2 lpm NC; Weight 57.15 bm7 kg; Height 5 ft. 6 in. (167.64 cm); Pain 8/10; 16:27 Body Mass Index 20.34 (57.15 kg, 167.64 cm) bm7 MDM: 15:54 Patient medically screened. pm1 17:12 Data reviewed: vital signs. Data interpreted: Pulse oximetry: on room air is 97 %. pm1 Interpretation: normal. 17:13 Counseling: I had a detailed discussion with the patient and/or guardian regarding: pm1 radiology results, the need for outpatient follow up, to return to the emergency department if symptoms worsen or persist or if there are any questions or concerns that arise at home. 17:34 ED course: Patient with spur present on right elbow. No tenderness or decrease in range pm1 of motion to right elbow. Patient with tenderness to right wrist. Positive for Tinel's and Phalen. Suspect carpal tunnel syndrome to right wrist. Differential diagnosis is arthritis to right wrist. Will send patient home with splint to right wrist and follow-up with hand surgeon. 09/18 15:34 Order name: Wrist Right 3 View XRAY; Complete Time: 16:27 pm1 09/18 15:38 Order name: Elbow Right 3 View XRAY; Complete Time: 16:27 pm1 09/18 17:24 Order name: Wrist Splint; Complete Time: 18:02 pm1 Administered Medications: 16:31 Drug: HYDROcodone-acetaminophen 5 mg-325 mg 1 tabs Route: PO; iw 17:45 Drug: HYDROcodone-acetaminophen (5 mg-500 mg) 1 tabs Route: PO; iw Disposition: 21:15 Co-signature as Attending Physician, Jeronimo Jacobs DO I was immediately available on-site ms3 in the Emergency Department for consultation in the care of the patient. . Chart complete. Chart complete. Disposition Summary: 09/18/21 17:27 Discharge Ordered Location: Home pm1 Problem: new pm1 Symptoms: have improved pm1 Condition: Stable pm1 Diagnosis - Pain in right wrist - possible carpal tunnel syndrome pm1 Followup: pm1 - With: Emergency Department - When: As needed - Reason: Worsening of condition Followup: pm1 - With: Private Physician - When: 2 - 3 days - Reason: Recheck today's complaints, Continuance of care, Re-evaluation by your physician Followup: pm1 - With: Sunil Sanchez MD - When: 2 - 3 days - Reason: Recheck today's complaints, Continuance of care, Re-evaluation by your physician Discharge Instructions: - Discharge Summary Sheet pm1 - Carpal Tunnel Syndrome pm1 - Wrist Splint, Adult pm1 Forms: - Medication Reconciliation Form pm1 - Thank You Letter pm1 - Antibiotic Education pm1 - Prescription Opioid Use pm1 Signatures: Dispatcher [employer] Phoebe Ivory, SIDDHARTH MESSINA iw Tyron Quach NP VIDEO MACH[employer]ES MECHANIC pm1 Jeronimo Jacobs DO DO ms3 Palak Vences, RN RN bm7
[2021-09-18 19:38] VITALS: BP 128/69; TEMP 97; O2SAT 97
== END 2021-09-18 18:02 | disposition home or self-care (01) ==
LOC: ER 15:19
DX: M25.531 Pain in right wrist (principal); I10 Essential (primary) hypertension; E11.9 Type 2 diabetes mellitus without complications; Z88.5 Allergy status to narcotic agent; Z88.8 Allergy status to other drugs, medicaments and biological substances
CPT/HCPCS: 99283

== ENCOUNTER 2021-10-24 19:25 | Emergency (ER) | payer OTHER ==
--- OUTSIDE RECORDS SUMMARY | 2021-10-24 19:32 | XMS REPORT | Continuity of Care Document ---
:1955 Author Organization [facility] t Address [address] [place] [address] Care Team Providers Name Role Phone ROSITA [facility] Primary Care P hysician Unavailable Zina DALY, Colette De León Attending Clinician Hyun Flynn MD Attending Clinician Doctor Unassigned, [place] Attending Clinician Unavailable Sarah Barkley Attending Clinician WILLIAN FUNEZ JR Attending Clinician Unavailable Minna Mike MD Attending Clinician Lexy Monae MD Attending Clinician David Echeverria Attending Clinician [phone] MINNA MIKE Attending Clinician Unavailable Soila Villar DO Attending Clinician SOILA VILLAR Attending Clinician Unavailable HYUN FLYNN Admitting Clinician Unavailable David Echeverria Admitting Clinician [phone] SOILA VILLAR Admitting Clinician Unavailable Payers Payer Name Policy Type Policy Number Effective Date Expiration Date S ource Problems Condition Condition Condition Status Onset Resolution Last Treating Co mments Source Name Details Category Date Date Treatment Clinician Date COPD COPD Disease Active Methodi exacerbati exacerbati 07-15 on on 00:00: Hospita 00 l Diabetes Diabetes Disease Active Metho di 07-15 00:00: Hospita 00 l Hypertensi Hypertensi Disease Active M ethodi on on 07-15 00:00: Hospita 00 l Shortness Shortness Disease Active Met hodi of breath of breath 07-15 00:00: Hospita 00 l ACS (acute ACS (acute Disease Active 2019-02 U nivers coronary coronary 1-20 it[place] of syndrome[place] syndrome[place] SOB SOB Disease Active 2019-02 Univers (shortness (shortness 1-19 it y of of breath) [place] breath[place] [facility] [place] No known No known Disease Unive rs active active ity of problems problems [facility] [place] [facility] Allergies, Adverse Reactions, Alerts Allergy Allergy Status Severity Reaction(s) Onset Inactive Treating Comm ents Source Name Type Date Date Clinician Diphenhy Propensi Active Other (See As Me thodi dramine ty to Comments) 07-[address] Hcl adverse 00:00: stated Hospita reaction 00 "its l s to making my drug nerves go Crazy" And painful./ confusion . DIPHENHY DRUG Active Anxiety Univers DRAMINE INGREDI 6-18 ity of 00:00: [place] 00 Medical Branch Diphenhy Propensi Active Anxiety Unive rs dramine ty to 6-18 ity of adverse 00:00: [place] reaction 00 Medical s Branch NO KNOWN Drug Active Univers ALLERGIE Class ity of S [facility] Social History Social Habit Start Date Stop Date Quantity Comments Source Exposure to Not sure University of SARS-CoV-2 (event) [facility] History of tobacco Smokes tobacco Me thodist use daily Hospital Alcohol intake 2021-07-15 2021-07-15 Ex-drinker [facility] 00:00:00 00:00:00 (finding) Hospital Cigarettes smoked 2021-07-15 2021-07-[address] current (pack per 00:00:00 00:00:00 Hospita l day) - Reported Tobacco use and 2021-07-15 2021-07-15 Smokeless [facility] exposure 00:00:00 00:00:00 tobacco non-user Hospital Cigarette 2019-12-28 2019-12-28 University of pack-years 00:00:00 00:00:00 [place] [facility] [place] History SDOH 2019-12-28 2019-12-28 1 University o f Alcohol Frequency 00:00:00 00:00:00 [place] [facility] History SDOH 2019-12-28 2019-12-28 99 University o f Alcohol Std Drinks 00:00:00 00:00:00 [facility] [place] History SDNV 2019-12-28 2019-12-28 1 University o f Alcohol Binge 00:00:00 00:00:00 [facility] [place] Sex Assigned At [birth year] [facility] 00:00:00 00:00:00 Hospital Smoking Status Start Date Stop Date Source Smokes tobacco daily 2021-07-15 00:00:00 [facility] Unknown if ever smoked [facility] Medications Ordered Filled Start Stop Current Ordering Indication Dosage Frequency Signature Comments Components Source Medication Medication Date Date Medication? Clinician (SIG) Name Name predniSONE Yes 10mg QD Take 10 mg M ethodi (DELTASONE) 6-[address] 10 mg 13:57: daily. Hospita tablet 05 l lamoTRIgine 0 Yes 100mg Q.5D Take 100 M ethodi (LaMICtal) 6-[address] 100 MG 13:57: mouth 2 Hospita tablet 05 (two) l times a day. busPIRone 0 Yes 15mg Q.5D Take 15 mg Me thodi (BUSPAR) 10 6-[address] MG tablet 13:57: (two) Hospita 05 times a l day. traZODone 0 Yes 100mg Take 100 Met hodi (DESYREL) 6-[address] 100 MG 13:57: mouth. Hospita tablet 05 l clopidogreL 2021-0 Yes 75mg Take 75 mg Methodi (PLAVIX) 75 6-[address] mg tablet 13:57: Hospita 05 l metoprolol 0 Yes 25mg Q.5D Take 25 mg M ethodi succinate 6-[address] XL 13:57: (two) Hospita (TOPROL-XL) 05 times a l 25 mg 24 hr day. tablet linaGLIPtin Yes 5mg QD Take 5 mg M ethodi (TRADJENTA) [address] 5 mg tablet 13:57: daily with Hospita 05 breakfast. l atorvastati Yes 80mg QD Take 80 mg Methodi n (LIPITOR) 6-[address] 80 MG 13:57: nightly. Hospita tablet 05 l fluticasone 0 Yes Inhale 1 Me thodi -umeclidin- 6-[address] vilanter 13:57: s. Hospita (Trelegy 05 l Ellipta) 100-62.5-25 mcg blister with device powder for inhalation albuterol Yes 2{puff} Q6H Inhale 2 M ethodi (PROAIR 6-[address] HFA) 90 13:57: every 6 Hospita mcg/actuati 05 (six) l on inhaler hours as needed for wheezing. ipratropium Yes 3mL Q.25D Take 3 mL Methodi -albuteroL 6-[address] (DUO-NEB) 13:57: nebulizati Ho spita 0.5-2.5 05 on 4 l mg/3 mL (four) nebulizer times a day as needed for wheezing. fluticasone Yes 1{puff} Q.5D Inhale 1 Methodi propionate 6-[address] (FLOVENT 13:57: (two) Hospita HFA) 110 05 times a l mcg/actuati day. on inhaler aspirin Yes 81mg QD Take 81 mg Meth daniel (ECOTRIN) 6-[address] 81 MG 13:57: daily. Hospita enteric 05 l coated tablet roflumilast Yes 500ug QD Take 500 M ethodi (Daliresp) 6-[address] 500 mcg 13:57: mouth Hospita tablet 05 daily. l sertraline 0 Yes 50mg QD Take 50 mg M ethodi (ZOLOFT) 50 6-[address] MG tablet 13:57: daily. Hospit a 05 l metFORMIN 2019-02 Yes 500mg Take 500 Uni vers 500 mg 1-21 mg by ity of tablet 20:14: mouth 2 (two) Medical times Branch daily with meals. traZODone 2019-02 Yes 150mg Take 150 Uni vers 100 mg 1-21 mg by ity of tablet 20:14: mouth at [place] bedtime. Medical Branch busPIRone 2019-02 Yes 7.5mg [...] Puff 2 ity of 44 20:14: (two) [place] mcg/actuati times Medical on inhaler daily. Branch albuterol 2019-02 Yes 2{puff} Inhale 2 U nivers (PROVENTIL 1-21 Puffs ity of HFA) 90 20:14: every 6 [place] mcg/actuati (six) Medical on inhaler hours as Branc h needed for Wheezing or Shortness of Breath. atorvastati 2019-02 Yes 80mg Take 80 mg Univers n (LIPITOR) 1-21 by mouth ity of 80 mg 20:14: at [facility] bedtime. Medical Branch mupirocin 2 2019-02 Yes Apply to Un destiny % ointment 1-21 area(s) 2 ity of 20:14: (two) [place] times Medical daily. Branch metoprolol 2019-02 Yes [...] by ity of tablet 20:14: mouth at bedtime. Medical Branch busPIRone 2019-02 Yes 7.5mg [...] Puff 2 ity of 44 20:14: (two) [place] mcg/actuati 09 times Medical on inhaler daily. Branch albuterol 2019-02 Yes 2{puff} Inhale 2 U nivers (PROVENTIL 1-21 Puffs ity of HFA) 90 20:14: every 6 [place] mcg/actuati (six) Medical on inhaler hours as Branc h needed for Wheezing or Shortness of Breath. atorvastati 2019-02 Yes 80mg Take 80 mg Univers n (LIPITOR) 1-21 by mouth ity of 80 mg 20:14: at [facility] bedtime. Medical Branch mupirocin 2 2019-02 Yes Apply to Un destiny % ointment 1-21 area(s) 2 ity of 20:14: (two) [place] times Medical daily. Branch metoprolol 2019-02 Yes [...] by ity of tablet 20:14: mouth at [place] bedtime. Medical Branch busPIRone 2019-02 Yes 7.5mg [...] ity of HFA) 90 20:14: every 6 [place] mcg/actuati (six) Medical on inhaler hours as Branc h needed for Wheezing or Shortness of Breath. atorvastati 2019-02 Yes 80mg Take 80 mg Univers n (LIPITOR) 1-21 by mouth ity of 80 mg 20:14: at [facility] 09 bedtime. Medical Branch mupirocin 2 2019-02 Yes Apply to Un destiny % ointment 1-21 area(s) 2 ity of 20:14: (two) [place] times Medical daily. Branch metoprolol 2019-02 Yes [...] Until Discontinu ed, Routine clopidogreL 2019-02 Yes [id number] 75mg Take 1 Univers 75 mg 1-21 tablet by ity of tablet 00:00: mouth [place] 00 daily. Medical Branch aspirin 81 2019-02 Yes [id number] 81mg Take 1 Univers mg chewable 1-21 tablet by ity of tablet 00:00: mouth [place] 00 daily. Medical Branch predniSONE 2019- Yes [id number] 40mg Take 2 U nivers 20 mg 1-21 tablets by ity of tablet 00:00: mouth [place] 00 daily. Medical Branch clopidogreL 2019-02 Yes [id number] 75mg Take 1 Univers 75 mg 1-21 tablet by ity of tablet 00:00: mouth [place] 00 daily. Medical Branch aspirin 81 2019-02 Yes [id number] 81mg Take 1 Univers mg chewable 1-21 tablet by ity of tablet 00:00: mouth [place] 00 daily. Medical Branch predniSONE 2019-02 Yes [id number] 40mg Take 2 U nivers 20 mg 1-21 tablets by ity of tablet 00:00: mouth [place] 00 daily. Medical Branch aspirin 81 2019-02 Yes [id number] 81mg Take 1 Univers mg chewable 1-21 tablet by ity of tablet 00:00: mouth [place] 00 daily. Medical Branch clopidogreL 2019-02- No 75mg Take 75 mg Univers 75 mg -20 -20 by mouth ity of tablet 22:51: 00:00 daily. [place] 35 :00 Medical Branch clopidogreL 2019-02- No Oral, Univ ers (PLAVIX) 02-27 TITRATE - ity o f tablet 21:25: 21:25 FOR [place] 13 :13 PROCEDURE Medical USE, 1 Branch dose, Starting 12/29/19 at 1525, Until 12/29/19 at 1525, Routine ticagrelor 2019-02- No Oral, Unive rs (BRILINTA) 02-27 TITRATE - ity of tablet 20:57: 20:57 FOR [place] 39 :39 PROCEDURE Medical USE, 1 Branch dose, Starting 12/29/19 at 1457, Until Wed12/29/19 at 1457, Routine heparin 2019-02- No Slow IV Univer s 1,000 02-27 Push, ity of unit/mL 20:57: 20:57 TITRATE - [place] injection 02 :02 FOR Medical PROCEDURE Branch USE, 1 dose, Starting 12/29/19 at 1457, Until 12/29/19 at 1457, Routine nitroglycer 2019-02- No Intravenou Univers in (TRIDIL) 02-27 s, TITRATE i ty of 2 mg in 10 20:49: 20:49 - FOR [place] mL D5W for 28 :28 PROCEDURE Medi piedad Cardiac USE, 1 Branch Cath dose, Starting 12/29/19 at 1449, Until 12/29/19 at 1449, Routine lidocaine 2019-02- No Infiltrati [...] 00 First dose Medical (NOVOLOG) + on Wed Branch Fsbg 12/28/19 Testing at 2100, Until Discontinu ed, Routine lamoTRIgine 2019-02 Yes 100mg 100 mg, Un destiny (LAMICTAL) 1-20 Oral, BID, ity of tablet 100 02:00: First dose [place] mg 00 on [place] [facility] 12/28/19 Branch at 2000, Until Discontinu ed, Routine predniSONE 2019-02 Yes [id number] 40mg Take 2 U nivers 20 mg 1-20 tablets by ity of tablet 00:00: mouth [place] 00 daily. Medical Branch clopidogreL 2019-02 Yes [id number] 75mg Take 1 Univers 75 mg 1-20 tablet by ity of tablet 00:00: mouth [place] 00 daily. Medical Branch predniSONE 2019-02- No [id number] 40mg Take 2 Univers 20 mg 1-20 11-20 tablets by ity of tablet 00:00: 00:00 mouth [place] 00 :00 daily. Medical Branch predniSONE 2019-02- No [id number] 40mg Take 2 Univers 20 mg 1-20 -19 tablets by ity of tablet 00:00: 00:00 mouth [place] 00 :00 daily for Medical 4 days. Branch atorvastati 2019-02- No 40mg 40 mg, Uni vers n (LIPITOR) 02-26 Oral, QPM, i ty of tablet 40 23:00: 02:01 First dose [place] mg 00 :46 on [facility] Medical 12/28/19 Branch at 1700, Until [...] ONCE, 1 [place] (LUMASON) 00 :00 dose, [facility] Medic al injection 5 12/28/19 Bran ch mL at 1245, Routine
geology faculty member approving Restricted medication : DEJAN GONSALEZ Saline 2019-02- No 6mL 6 mL, Univers Bubble 02-26 Injection, ity of Study 17:33: 22:27 SEE-INSTRU [place] 16 :16 CTIONS, 2 Medical doses, Branch Starting [facility] 12/28/19 at 1133, Until 12/29/19 at 1627, Routine Saline 2019-02 Yes 6mL 6 mL, Univers Bubble 02-26 Injection, ity of Study 17:33: SEE-INSTRU [place] 14 CTIONS, 2 Medical doses, Branch Starting [facility] 12/28/19 at 1133, Until Discontinu ed, Routine clopidogreL 2019-02 Yes 75mg 75 mg, Univ ers (PLAVIX) 02-26 Oral, ity of tablet 75 15:00: DAILY, [place] mg 00 First dose Medical on [place] Branch 12/28/19 at 0900, Until Discontinu ed, Routine
geology faculty member approving Restricted medication : LEXY MONAEJULIAN aspirin 2019-02 Yes 81mg 81 mg, Univers [...] Rang e, Dosing and Testing: &nbs p;FOR [facility], [facility], AND [facility] ONLY &nbs p; - aPTT < [...] Push, Branc h Units ONCE, 1 dose, [facility] 12/28/19 at 0600, Routine albuterol 2019-02 Yes 2.5mg 2.5 mg, Univ ers (PROVENTIL) 02-26 Inhalation it y of 2.5 mg /3 10:00: , Q4H, [place] mL (0.083 00 First dose Medi piedad %) on [facility] Branch nebulizer 12/28/19 solution at 0400, 2.5 mg Until Discontinu ed, Routine ipratropium 2019-02 Yes .5mg 0.5 mg, Uni vers (ATROVENT) 02-26 Inhalation ity of 0.02 % 10:00: , Q4H, [place] nebulizer 00 First dose Medi piedad solution on [facility] Branch 0.5 mg 12/28/19 at 0400, [...] 02-26 Oral, ity of (TYLENOL) 08:36: Q6HPRN, [place] tablet 650 38 Starting Medic al mg [place] Branch 12/28/19 at 0236, Until Discontinu ed, Routine, Pain (scale 1-3) nicotine 2019-02 Yes 1{patch 1 Patch, Un destiny (NICODERM) 02-26 } Topical, ity o f 21 mg/24 hr 06:15: Administer [place] patch 1 00 over 24 Medical Patch [...] 40 mg STAT metoprolol 2019-02 2020- No [id number] 12.5mg Take 0.5 Univers tartrate 25 02-26- tablets by i ty of mg tablet 00:00: 00:00 mouth 2 [place] 00 :00 (two) Medical times [place] daily. albuterol-i 2019-02 2020- No [id number] 1{puff} Inhale 1 Univers pratropium 02-26 Puff 4 ity of 20-100 00:00: 00:00 (four) [place] mcg/actuati 00 :00 times Medical on inhaler daily. [place] metoprolol 2019-02- No [id number] 12.5mg Take 0.5 Univers tartrate 25 02-26 tablets by i ty of mg tablet 00:00: 00:00 mouth 2 [place] 00 :00 (two) Medical times [place] daily. metoprolol 2019-02- No [id number] 12.5mg Take 0.5 Univers tartrate 25 02-26 tablets by i ty of mg tablet 00:00: 00:00 mouth 2 [place] 00 :00 (two) Medical times [place] daily. aspirin 2019- No 324mg 324 mg, Unive rs chewable 07-26 Oral, ity of tablet 324 22:30: 21:42 ONCE, 1 [place] as mg 00 :00 dose, [facility] 07/27/19 at Branch 1730, Routine No known No Univers medications ity of [facility] Vital Signs Vital Name Observation Time Observation Value Comments Source Systolic blood 2019-12-30 135 mm[Hg] [facility] pressure 17:24:00 [facility] Diastolic blood 2019-12-30 72 mm[Hg] [place] o f pressure 17:24:00 [facility] Heart rate 2019-12-30 78 /min [facility] 17:24:00 [facility] Body temperature 2019-12-30 35.61 Annemarie [facility] 17:24:00 [facility] Respiratory rate 2019-12-30 18 /min [facility] 17:24:00 [facility] [place] [facility] Oxygen saturation 2019-12-30 91 /min [facility] in Arterial blood 17:24:00 [facility] by Pulse oximetry [place] Body weight 2019-12-30 57.924 kg pt's actual wt University of 10:03:00 on regular [place] [facility] scale Branch BMI 2019-12-30 20.61 kg/m2 University of 10:03:00 [place] [facility] Body height 2019-12-29 167.6 cm University of 20:18:00 [facility] Branch Systolic blood 2019-12-30 135 mm[Hg] University of pressure 17:24:00 [facility] [place] [facility] Diastolic blood 2019-12-30 72 mm[Hg] University o f pressure 17:24:00 [facility] Branch Heart rate 2019-12-30 78 /min University of 17:24:00 [facility] Body temperature 2019-12-30 35.61 Annemarie University of 17:24:00 [facility] Branch Respiratory rate 2019-12-30 18 /min University of 17:24:00 [facility] [place] [facility] Oxygen saturation 2019-12-30 91 /min University of in Arterial blood 17:24:00 [facility] piedad by Pulse oximetry Branch Body weight 2019-12-30 57.924 kg pt's actual wt University of 10:03:00 on regular [place] Medical scale Branch BMI 2019-12-30 20.61 kg/m2 University of 10:03:00 [facility] Body height 2019-12-29 167.6 cm University of 20:18:00 [facility] [place] [facility] Systolic blood 2019-07-27 120 mm[Hg] University of pressure 21:35:00 [facility] Branch Diastolic blood 2019-07-27 79 mm[Hg] University o f pressure 21:35:00 [facility] Heart rate 2019-07-27 93 /min University of 21:35:00 [facility] Respiratory rate 2019-07-27 12 /min University of 21:35:00 [facility] [place] [facility] Oxygen saturation 2019-07-27 95 /min University of in Arterial blood 21:35:00 [facility] piedad by Pulse oximetry Branch Body temperature 2019-07-27 37.5 Annemarie University of 21:15:00 [place] [facility] Body height 2019-07-27 167.6 cm University of 21:15:00 [facility] Body weight 2019-07-27 55.792 kg University of 21:15:00 [facility] BMI 2019-07-27 19.85 kg/m2 University of 21:15:00 [facility] [place] [facility] Systolic blood 2019-07-27 120 mm[Hg] University of pressure 21:35:00 [facility] Branch Diastolic blood 2019-07-27 79 mm[Hg] University o f pressure 21:35:00 [facility] Heart rate 2019-07-27 93 /min University 21:35:00 [facility] Respiratory rate 2019-07-27 12 /min University 21:35:00 [facility] Oxygen saturation 2019-07-27 95 /min [facility] in Arterial blood 21:35:00 [facility] by Pulse oximetry [place] Body temperature 2019-07-27 37.5 Annemarie University 21:15:00 [facility] Body height 2019-07-27 167.6 cm [facility] 21:15:00 [facility] Body weight 2019-07-27 55.792 kg University 21:15:00 [facility] BMI 2019-07-27 19.85 kg/m2 [facility] 21:15:00 [facility] Heart rate 2021-07-16 93 /min [facility] 17:12:00 [facility] Systolic blood 2021-07-16 156 mm[Hg] [facility] pressure 16:50:46 Hospital Diastolic blood 2021-07-16 83 mm[Hg] [facility] pressure 16:50:46 [facility] Body temperature 2021-07-16 36.72 Annemarie [facility] 16:50:46 Hospital Respiratory rate 2021-07-16 20 /min [facility] 16:50:46 Hospital Oxygen saturation 2021-07-16 100 /min [facility] in Arterial blood 16:50:46 Hospital by Pulse oximetry Procedures Procedure Date / Time Performing Clinician Source Performed POC GLUCOSE 2021-07-16 16:04:00 Hyun Flynn Ho spital POC GLUCOSE 2021-07-16 13:06:00 Hyun Flynn Ho spital HEMOGLOBIN A1C 2021-07-16 10:38:00 Hyun Flynn Ho spital POC GLUCOSE 2021-07-16 02:40:00 Hyun Flynn Ho spital POC GLUCOSE 2021-07-15 21:28:00 Hyun Fylnn Ho spital POC GLUCOSE 2021-07-15 18:04:00 Hyun Flynn Ho spital LACTIC ACID LEVEL, 2021-07-15 14:19:00 Colette Izaguirre [facility] SEPSIS - NOW AND REPEAT 2X EVERY 3 HOURS POC GLUCOSE 2021-07-15 14:05:00 Hyun Flynn spital LACTIC ACID LEVEL, 2021-07-15 11:47:00 Zina, [facility] SEPSIS - NOW AND REPEAT 2X EVERY 3 HOURS ECG 12-LEAD 2021-07-15 09:34:19 Zina, [facility] XR CHEST 1 VW PORTABLE 2021-07-15 08:37:27 Soabran, [facility] COVID-19 ANTI-SPIKE IGG 2021-07-15 08:35:00 So, [facility] ANTIBODY TITER COVID-19 SEROLOGY 2021-07-15 08:35:00 [facility], [facility] PATIENT SURVEILLANCE LACTIC ACID LEVEL, 2021-07-15 08:35:00 [facility], [facility] SEPSIS - NOW AND REPEAT 2X EVERY 3 HOURS HC COMPLETE BLD COUNT 2021-07-15 08:35:00 Zina [facility] W/AUTO DIFF COMPREHENSIVE METABOLIC 2021-07-15 08:35:00 [facility] PANEL TROPONIN T 2021-07-15 08:35:00 [facility] ESTIMATED GFR 2021-07-15 08:35:00 [facility] EXTERNAL PROVIDER 2020-01-17 06:01:00 Doctor Unassigned, No [facility] RECORDS Name Medical Branch POCT GLUCOSE (AUTOMATED) 2019-12-30 15:25:00 Lexy Monae [facility] MAGNESIUM 2019-12-30 10:10:00 [facility] [place] BASIC METABOLIC PANEL 2019-12-30 10:10:00 [facility] (NA, K, CL, CO2, Medical Branch GLUCOSE, BUN, CREATININE, CA) CBC WITH DIFF 2019-12-30 10:10:00 [facility] o f [place] [facility] [place] POCT GLUCOSE (AUTOMATED) 2019-12-30 01:50:00 [facility] ([facility]OMATED) 2019-12-29 23:32:[address] [facility]OUT[facility] & RHYTHM 2019-12-29 14:11:36 Mariya [facility] POCT GLUCOSE (AUTOMATED) 2019-12-29 14:00:00 Lexy Monae [facility] MAGNESIUM 2019-12-29 10:58:00 Mariya [facility] BASIC METABOLIC PANEL 2019-12-29 10:58:00 Mariya [facility] (NA, K, CL, CO2, Medical Branch GLUCOSE, BUN, CREATININE, CA) ACTIVATED PARTIAL 2019-12-29 10:58:[address] [facility] EXTERNAL PROVIDER 2019-12-29 06:01:00 Doctor Unassigned, [facility] RECORDS Name [facility] POCT GLUCOSE (AUTOMATED) 2019-12-29 04:16:00 [facility] ACTIVATED PARTIAL 2019-12-29 00:06:[address] [facility] TROPONIN I 2019-12-28 19:46:00 Jesus Paz [facility] LIPID PANEL 2019-12-28 19:46:00 Mariya [facility] ([id number])(TOTAL [facility] Branch CHOLESTEROL, TRIGLYCERIDES, HDL) ECHO ROUTINE W/DOPPLER 2019-12-28 16:44:30 Willian Meraz [facility] HB ECG ROUTINE & RHYTHM 2019-12-28 13:42:07 Mariya [facility] PROTHROMBIN TIME / INR 2019-12-28 12:24:00 Mariya [facility] ACTIVATED PARTIAL 2019-12-28 12:24:[address] [facility] TROPONIN I 2019-12-28 10:08:00 Mariya [facility] CT CHEST PULMONARY 2019-12-28 04:44:55 Minna Mike [facility] ANGIOGRAM Medical Branch XR CHEST 1 VW 2019-12-28 02:07:[address] [facility] COVID-19 (ID NOW RAPID 2019-12-28 01:50:00 Minna Mike [facility] TESTING) Medical Branch HB ECG ROUTINE & RHYTHM 2019-12-28 01:49:[address] [facility] STRIP [facility] TROPONIN I 2019-12-28 01:49:[address] [facility] THYROID STIMULATING 2019-12-28 01:49:00 Mariya [facility] HORMONE Medical Branch BASIC METABOLIC PANEL 2019-12-28 01:49:[address] [facility] (NA, K, CL, CO2, Medical Branch GLUCOSE, BUN, CREATININE, CA) COMP. METABOLIC PANEL 2019-12-28 01:49:[address] [facility] ([id number]) Medical Branch CBC WITH DIFF 2019-12-28 01:49:[address] [facility] GLYCOSYLATED HEMOGLOBIN 2019-12-28 01:49:00 Mariya [facility] (A1C) Medical Branch N-TERMINAL PRO-BNP 2019-12-28 01:49:00 Mariya [facility] XR CHEST 1 VW 2019-07-27 22:14:30 Soila Vill[facility] COVID-19 (ID NOW RAPID 2019-07-27 21:43:00 Soila Villar [facility] TESTING) Medical Branch TROPONIN I 2019-07-27 21:38:00 Soila Vill[facility] HEPATIC FUNCTION PANEL 2019-07-27 21:38:00 Soila Villar [facility] ([id number]) (ALB,T.PRO,BILI Medical Branch T,BU/BC,ALT,AST,ALK PHOS) BASIC METABOLIC PANEL 2019-07-27 21:38:[address] [facility] (NA, K, CL, CO2, Medical Branch GLUCOSE, BUN, CREATININE, CA) CBC WITH DIFFERENTIAL 2019-07-27 21:38:00 Soila Villar [facility] PROTHROMBIN TIME / INR 2019-07-27 21:38:00 [facility]ila [facility] N-TERMINAL PRO-BNP 2019-07-27 21:38:00 Soila Villar [facility] sity [facility] Hospital EKG-12 LEAD 2019-07-27 21:21:22 [facility] NOTICE OF PRIVACY 2019-07-27 20:58:21 Doctor Unassigned, No [facility] PRACTICES Name [facility] Plan of Care Planned Activity Planned Date Details Comments Source Future Scheduled 2021-10-11 HEPATITIS B VACCINES [facility] Test 10:23:54 (1 of 3 - 3-dose series) [code = HEPATITIS B VACCINES (1 of 3 - 3-dose series)] Future Scheduled 2021-10-11 COVID-19 VACCINE (#1) [facility] Test 10:23:54 [code = COVID-19 VACCINE (#1)] Future Scheduled 2021-10-11 65+ [facility] Test 10:23:54 VACCINE (1 - PCV) [code = 65+ PNEUMOCOCCAL VACCINE (1 - PCV)] Future Scheduled 2021-10-11 Hepatitis C screening [facility] Test 10:23:54 (procedure) [code = 449466766] Future Scheduled 2021-10-11 Screening for [facility] Test 10:23:54 malignant neoplasm of cervix (procedure) [code = 660718034] Future Scheduled 2021-10-11 BREAST CANCER [facility] Test 10:23:54 SCREENING [code = BREAST CANCER SCREENING] Future Scheduled 2021-10-11 COLONOSCOPY SCREENING [facility] Test 10:23:54 [code = COLONOSCOPY SCREENING] Future Scheduled 2021-10-11 SHINGLES VACCINES (1 [facility] Test 10:23:54 of 2) [code = SHINGLES VACCINES (1 of 2)] Future Scheduled 2021-10-11 INFLUENZA VACCINE [facility] Test 10:23:54 [code = INFLUENZA VACCINE] Encounters Start End Encounter Admission Attending Care Care Encounter Source Date/Time Date/Time Type Type Clinicians Facility Department ID 2021-12-02 2021-12-02 Outpatient [facility] [id number] [address] 08:15:00 08:15:00 00 natasha Day 2021-07-15 2021-07-16 [facility] Colette Izaguirre 1.2.840.1 [id number] Methodi 01:59:00 13:57:00 Encounter Hyun Flynn 24296.1.[address] 3.430.2.7 Hospit a .3.037427 l .8 2021-07-15 2021-07-16 [facility] [id number] [address] [place] [address] 00:00:00 00:00:[address] HY[address] 2021-07-15 2021-07-15 Travel 1.2.840.1 1.2.199.647 [id number] Methodi 00:00:00 00:00:[address] 3.430.2.7 0.2.7.3.698 Ho spita .3.851718 084.8 l .8 2020-01-17 2020-01-17 Orders Doctor NICHOLE 1.2.840.114 [id number] 00:00:00 00:00:00 Only Unassigned, ASHLEY 350.1.13.10 [facility] 4.2.7.2.686 [id number] 009 2020-01-17 2020-01-17 Orders Doctor NICHOLE 1.2.840.114 [id number] [facility] 00:00:00 00:00:00 Only Unassigned, ASHLEY 350.1.13.10 ity of [facility] 4.2.7.2.686 Nabil as [id number] [place] [address] [place] 2020-01-01 2020-01-01 Transition Ree Barkley 1.2.840.114 [id number] [id number] 00:00:00 00:00:00 of Care Sarah Carvalho 350.1.13.10 [place] 4.2.7.2.686 [id number] 403 2020-01-01 2020-01-01 Transition Ree Barkley 1.2.840.114 [id number] [id number] Univers 00:00:00 00:00:00 of Care Sarah Carvalho 350.1.13.10 [place] [id number] [facility] [address] [place] 2019-12-31 2019-12-31 Outpatient R DEE DEE URIBE, [facility] [address] 5Q-20 Univers 16:00:00 16:00:00 WILLIAN [id number] [facility] 2019-12-27 2019-12-30 [facility] Minna Mike 1.2.840. 114 [id number] Univers 18:54:00 14:13:00 Encounter Lexy Monae 350.1.13.10 ity [facility] 4.2.7.2.68 6 [place] [id number] [facility] [address] [place] 2019-12-27 2019-12-30 [facility] GinnawyMinna cruz 1.2.840. 114 [id number] 18:54:00 14:13:00 Encounter Lexy Monae 350.1.13.10 [place] [address].2.7.2.68 [id number] [facility] 2019-12-27 2019-12-27 Emergency [facility] E[facility] [id number] Univers 18:54:00 18:54:00 MINNA [facility] 2019-07-27 2019-07-27 Emergency [facility] 1.2.840.114 [id number] Univers 16:26:45 18:20:00 Soila Espinosa 350.1.13.10 ity of [place] 4.2.7.2.686 [facility] [id number] [facility] [address] [place] 2019-07-27 2019-07-27 Emergency X [facility] ERT [id number] Univers 16:26:45 18:20:00 SOILA galvan [facility] 2019-07-27 2019-07-27 Emergency [facility] 1.2.840.114 [id number] 16:26:45 18:20:00 Soila Espinosa 350.1.13.10 [place] 4.2.7.2.686 [place] [id number] 084 Results Test Description Test Time Test Comments Results Result Comments Source LACTIC ACID, PLASMA 2021-09-16 11:30:59 Test Item Value Reference Range Interpretation Comme nts LACTIC ACID, PLASMA (test code = 2056) 12.0 MG/DL 4.5-19.8 [id number] 03:42:38 Test Item Value Reference Range Interpretation Comments MAGNESIUM (test code = 222) 1.9 MG/DL 1.6-2.6 COMPREHENSIVE METABOLIC [id number] 03:42:00 Test Item Value Reference Range Interpretation Comments GLUCOSE (test code = 193 MG/DL 70-99 H 2216) BUN (test code = 14 MG/DL 8-23 2207) CREATININE (test 0.68 MG/DL 0.60-1.30 code = 221) eGFR (2020 CKD-EPI) 97 ML/MIN/1.73 >60 (test code = 41174) CALC BUN/CREAT (test 21 RATIO 6-28 code = 2235) SODIUM (test code = 140 MEQ/L 768-621 3261) POTASSIUM (test code 4.4 MEQ/L 3.5-5.4 = 2227) CHLORIDE (test code 102 MEQ/L 95-107 = 2214) CARBON DIOXIDE (test 27 MEQ/L 19-31 code = 220) CALCIUM (test code = 9.0 MG/DL 8.5-10.5 [...] code = 2204) AST (test code = 24 U/L 9-40 2217) ALT (test code = 25 U/L 5-40 2218) IRON, [id number] 03:42:00 Test Item Value Reference Range Interpretation Comments IRON, SERUM (test 21 UG/DL 37-145 L UNLESS OT HERWISE code = 2222) INDICATED, ALL TESTING PERFORMED ATCLI NICAL PATHOLOGY [facility] [address] [place] [address] CHRISTAL GONSALVES DIRECTOR: TITA PARIKH M.D. CLIA NUMBER [id number] CAP ACCREDITATION N O. [id number] HEMOGLOBIN [id number] 03:08:42 Test Item Value Reference Range Interpretation Comments HEMOGLOBIN A1c (test 8.0 % 4.2-5.6 H AMERIC AN DIABETES code = 54474) ASSOCIATION IDELINES FOR HGB A1C: PREDIABETES/INC REASED [...] LABORATORY C ONSULTATION. CBC W/AUTO DIFF WITH [id number] 01:59:57 Test Item Value Reference Range Interpretation [...] RBCS 0.00 K/UL 0.00-0.11 (test code = 80481) LACTIC ACID, [id number] 14:02:14 Test Item Value Reference Range Interpretation Comments LACTIC ACID, PLASMA (test code = 15.2 MG/DL 4.5-19.8 2056) COMPREHENSIVE METABOLIC [id number] 04:08:01 Test Item Value Reference Range Interpretation Comments GLUCOSE (test code = 104 MG/DL 70-99 H 2216) BUN (test code = 17 MG/DL 8-23 2207) CREATININE (test 0.73 MG/DL 0.60-1.30 code = 2214) eGFR (2020 CKD-EPI) 91 >60 (test code = 12410) ML/MIN/1.73 CALC BUN/CREAT (test 23 RATIO 6-28 code = 2235) SODIUM (test code = 141 MEQ/L 949-649 7951) POTASSIUM (test code 4.7 MEQ/L 3.5-5.4 = 2227) CHLORIDE (test code 100 MEQ/L 95-107 = 2214) CARBON DIOXIDE (test 29 MEQ/L 19-31 code = 2206) CALCIUM (test code = 9.9 MG/DL 8.5-10.5 2208) PROTEIN, TOTAL (test 6.5 G/DL 6.1-8.3 code = 2229) ALBUMIN (test code = 4.4 G/DL 3.5-5.2 [...] PHOSPHATASE 65 U/L 40-140 (test code = 220) AST (test code = 26 U/L 9-40 2217) ALT (test code = 25 U/L 5-40 UNLESS OTH ERWISE 2218) INDICATED, ALL TESTING PERFORM ED ATCLINICAL PATH OLOGY LABORATORIES, [facility]. [address] [place], [place] [address] [place], [place] [address]Corwin SOLOMON DIRECTOR: TITA PARIKH M.D. CLIA NUMBER [id number] CAP ACCREDITATION N O. [id number] POC [id number] 16:05:00 Test Item Value Reference Range Interpretation Comments POC glucose (test code 354 mg/dL 65-99 [facility]: Celeste = 20608-0) NwachukwuDevice ID: [id number] Lab Interpretation Abnormal (test code = 47196-4) [facility] [id number] 01:04:59 Test Item Value Reference Range Interpretation Comments Ventricular rate (test code = 253) Atrial rate (test code = 255) NC interval (test code = 266) QRSD interval (test code = 260) QT interval (test code = 264) QTC interval (test code = 265) P axis 1 (test code = 267) QRS axis 1 (test code = 268) T wave axis (test code = 270) EKG impression (test Normal sinus code = 273) rhythm-Normal ECG-No previous ECGs available-Electronica lly Signed By Andrey Sosa MD ([id number]) on 07/15/2021 8:04:56 PM [facility], [id number] 14:02:59 Test Item Value Reference Range Interpretation Comments LACTIC ACID, 26.7 MG/DL 4.5-19.8 H UNLESS OTHERWI SE PLASMA (test code INDICATED, ALL TESTING = 2056) PERFORMED [facility] PATHOLOGY [employer]. [address] [place] [address] CHRISTAL GONSALVES DIRECTOR: TITA PARIKH M.D. CLIA NUMBER [id number] CAP ACCREDITATION N O. [id number] LACTIC ACID, [id number] 10:45:50 Test Item Value Reference Range Interpretation Comments LACTIC ACID, 27.1 MG/DL 4.5-19.8 H UNLESS OTHERWI SE PLASMA (test code INDICATED, ALL TESTING = 2056) PERFORMED [facility] PATHOLOGY [employer]. [address] [place] [address] CHRISTAL GONSALVES DIRECTOR: TITA PARIKH M.D. CLIA NUMBER [id number] CAP ACCREDITATION N O. [id number] HEMOGLOBIN [id number] 05:02:08 Test Item Value Reference Range Interpretation Comments HEMOGLOBIN A1c (test 8.3 % 4.2-5.6 H AMERIC AN DIABETES code = 79910) ASSOCIATION IDELINES FOR HGB A1C: PREDIABETES/INC REASED [...] TESTING OR LABORATORY C ONSULTATION. COMPREHENSIVE METABOLIC [id number] 03:45:06 Test Item Value Reference Range Interpretation Comments GLUCOSE (test code = 397 MG/DL 70-99 H 2216) BUN (test code = 21 MG/DL 8-2207) CREATININE (test 0.75 MG/DL 0.60-1.30 code = 2214) eGFR (2020 CKD-EPI) 88 ML/MIN/1.73 >60 (test code = 92152) CALC BUN/CREAT (test 28 RATIO 6-28 code = 2235) SODIUM (test code = 140 MEQ/L 563-273 0561) POTASSIUM (test code 4.2 MEQ/L 3.5-5.4 = 222) CHLORIDE (test code 95 MEQ/L 95-107 = 2215) CARBON DIOXIDE (test 32 MEQ/L 19-31 H code = 2206) CALCIUM (test code = 10.0 MG/DL 8.5-10.5 2208) PROTEIN, TOTAL (test 6.7 G/DL 6.1-8.3 code = 2229) ALBUMIN (test code = 4.4 G/DL 3.5-5.2 2200) CALC GLOBULIN (test 2.3 G/DL 1.9-3.7 code = 2240) CALC A/G RATIO (test 1.9 RATIO 1.0-2.6 code = 2234) BILIRUBIN, TOTAL [...] code = 25 U/L 5-40 2218) LIPID [id number] 03:45:06 Test Item Value Reference Range Interpretation [...] , SEE CLIENT ANNOUNCE MENT AT [email or web address] LDL/HDL 0.93 RATIO <3.22 (test code = 2238) LACTIC ACID, [id number] 15:11:52 Test Item Value Reference Range Interpretation Comments LACTIC ACID, 11.7 MG/DL 4.5-19.8 UNLESS OTHERWI SE PLASMA (test code INDICATED, ALL TESTING = 2056) PERFORMED ATCLI NICAL PATHOLOGY [facility] [employer] [address] [place] [address] CHRISTAL GONSALVES DIRECTOR: TITA PARIKH M.D. DAKOTAIA NUMBER [id number] CAP ACCREDITATION N O. [id number] HEMOGLOBIN [id number] 03:44:50 Test Item Value Reference Range Interpretation Comments HEMOGLOBIN A1c (test 7.5 % 4.2-5.6 H AMERIC AN DIABETES code = 46533) ASSOCIATION IDELINES FOR HGB A1C: PREDIABETES/INC REASED [...] TESTING OR LABORATORY C ONSULTATION. COMPREHENSIVE METABOLIC [id number] 03:25:55 Test Item Value Reference Range Interpretation Comments GLUCOSE (test code = 159 MG/DL 70-99 H 2216) BUN (test code = 17 MG/DL 8-23 2207) CREATININE (test 0.56 MG/DL 0.60-1.30 L code = 2214) eGFR (2020 CKD-EPI) 101 >60 (test code = 08087) ML/MIN/1.73 CALC BUN/CREAT (test 30 RATIO 6-28 H code = 2235) SODIUM (test code = 141 MEQ/L 397-900 9629) POTASSIUM (test code 4.4 MEQ/L 3.5-5.4 = 2228) CHLORIDE (test code 101 MEQ/L 95-107 = 2215) CARBON DIOXIDE (test 25 MEQ/L 19-31 code [...] = 21 U/L 5-40 2218) LACTIC ACID, [id number] 15:10:19 Test Item Value Reference Range Interpretation Comments LACTIC ACID, 34.5 MG/DL 4.5-19.8 H UNLESS OTHERWI SE PLASMA (test code INDICATED, ALL TESTING = 2056) PERFORMED [facility] PATHOLOGY [email or web address]. [address] [place] [address] CHRISTAL GONSALVES DIRECTOR: TITA PARIKH M.D. CLIA NUMBER [id number] CAP ACCREDITATION N O. [id number] LACTIC ACID, [id number] 13:30:20 Test Item Value Reference Range Interpretation Comments LACTIC ACID, 18.5 MG/DL 4.5-19.8 UNLESS OTHERWI SE PLASMA (test code INDICATED, ALL TESTING = 2056) PERFORMED [facility] [employer] [address] [place] [address] [facility]ENTER[facility] GONSALVES DIRECTOR: TITA PARIKH M.D. CLIA NUMBER [id number] CAP ACCREDITATION N O. [id number] TSH, THIRD [id number] 06:41:17 Test Item Value Reference Range Interpretation Comments TSH, THIRD GENERATION (test code 1.300 UIU/ML 0.400-4.100 = 2821) LIPID [id number] 04:18:20 Test Item Value Reference Range Interpretation [...] MOREINFORMATION , SEE CLIENT ANNOUNCE MENT AT [email or web address] [email or web address] RATIO LDL/HDL 0.85 RATIO <3.22 (test code = 2238) COMPREHENSIVE METABOLIC [id number] 04:18:20 Test Item Value Reference Range Interpretation Comments GLUCOSE (test code = 93 MG/DL 70-99 2216) BUN (test code = 15 MG/DL 8-23 2207) CREATININE (test 0.72 MG/DL 0.60-1.30 code = 221) eGFR (2020 CKD-EPI) 93 ML/MIN/1.73 >60 (test code = 88251) CALC BUN/CREAT (test 21 RATIO 6-28 code = 2235) SODIUM (test code = 143 MEQ/L 843-947 0638) POTASSIUM (test code 3.8 MEQ/L 3.5-5.4 = [...] code = 220) AST (test code = 20 U/L 9-40 2217) ALT (test code = 36 U/L 5-40 2218) HEMOGLOBIN [id number] 03:31:34 Test Item Value Reference Range Interpretation Comments HEMOGLOBIN A1c (test 7.8 % 4.2-5.6 H AMERIC AN DIABETES code = 29089) ASSOCIATION IDELINES FOR HGB A1C: PREDIABETES/INC REASED [...] 204 mg/dL 70-110 H Notifi ed Provider [id number]) Lab Interpretation (test Abnormal code = 60733-4) [facility] METABOLIC PANEL (NA, K, CL, CO2, GLUCOSE, BUN, CREATININE, CA)2019-12-30 10:50:00 Test Item Value Reference Range Interpretation Comments NA (test code = 137 mmol/L 135-145 3788764015) K (test code = 4.1 mmol/L 3.5-5 8430494502) CL (test code = 103 mmol/L 98-108 5138626720) CO2 TOTAL (test code = 29 mmol/L 23-31 6003682296) AGAP (test code = 2-16 6747302412) BUN (test code = 21 mg/dL 7-23 6844510110) GLUCOSE (test code = 97 mg/dL 70-110 3927836591) CREATININE (test code 0.67 mg/dL 0.5-1.04 = 0861113695) CALCIUM (test code = 9.0 mg/dL 8.6-10.6 0937274667) eGFR Calculation mL/min/1.73m2 (Non-) (test code = 5821214418) eGFR Calculation mL/min/1.73m2 () (test code = 9038099721) JOSHUA (test code = JOSHUA) Association of [...] or urine or abnormalities in imaging tests). [facility] 10:50:00 Test Item Value Reference Range Interpretation Comments MAGNESIUM (test code = 9698232189) 2.2 mg/dL 1.7-2.4 Lab Interpretation (test code = Normal 85657-1) [facility] WITH [id number] 10:26:00 Test Item Value Reference Range Interpretation Comments WBC (test code = See_Comment [Automated 1847-2) message] The sy stem which generated this result transmitted reference range : 4.30 - 11.10 10*3/?L. The reference range was not used to interpret this result as normal/abnormal . RBC (test code = See_Comment [Automated 385-7) message] The sy stem which generated this [...] RDW-SD (test code = 44.0 fL 39-49.9 83975-5) RDW-CV (test code = 12.6 % 12-15.5 788-0) PLT (test code = See_Comment [Automated 777-3) message] The sy stem which generated this result transmitted reference range : 166 - 358 10*3/ ?L. The reference r ramona was not used to interpret this result as normal/abnormal . MPV (test code = 9.7 fL 9.5-12.9 54099-9) NRBC/100 WBC (test See_Comment [Automat ed code = 0916969684) message] The system which generated this result transmitted reference range : 0.0 - 10.0 /100 WBCs. The refer ence range was not u sed to interpret th is result as normal/abnormal . NRBC x10^3 (test code <0.01 See_Comment [Auto mated = 1884257361) message] The s ystem which generated this result transmitted reference range : 10*3/?L. The reference range was not used to interpret this result as normal/abnormal . GRAN MAT (NEUT) % 57.7 % (test code = 770-8) IMM GRAN % (test code 0.20 % = 8796054364) LYMPH % (test code = 31.8 % 736-9) MONO % (test code = 8.1 % 5905-5) EOS % (test code = 1.9 % 713-8) BASO % (test code = 0.3 % 706-2) GRAN MAT x10^3(ANC) 5.12 10*3/uL 1.88-7.09 (test code = 2352764168) IMM GRAN x10^3 (test <0.03 0-0.06 code = 8312757648) LYMPH x10^3 (test code 2.82 10*3/uL 1.32-3.29 = 731-0) MONO x10^3 (test code 0.72 10*3/uL 0.33-0.92 = 742-7) EOS x10^3 (test code = 0.17 10*3/uL 0.03-0.39 711-2) BASO x10^3 (test code 0.03 10*3/uL 0.01-0.07 = 704-7) Lab Interpretation Abnormal (test code = 77854-4) [facility] GLUCOSE (AUTOMATED)2019-12-30 01:52:00 Test Item Value Reference Range Interpretation Comments POCT GLU (test code = 5254204175) 199 mg/dL 70-110 H Lab Interpretation (test code = Abnormal 27708-6) [facility] GLUCOSE (AUTOMATED)2019-12-29 23:34:00 Test Item Value Reference Range Interpretation Comments POCT GLU (test code = 4750145794) 120 mg/dL 70-110 H Lab Interpretation (test code = Abnormal 17073-8) [facility] GLUCOSE (AUTOMATED)2019-12-29 14:02:00 Test Item Value Reference Range Interpretation Comments POCT GLU (test code = 5068648265) 99 mg/dL 70-110 Lab Interpretation (test code = Normal 09555-8) [facility] Metabolic Panel (NA, K, CL, CO2, GLUCOSE, BUN, CREATININE, CA)2019-12-29 11:40:00 Test Item Value Reference Range Interpretation Comments NA (test code = 139 mmol/L 135-145 9502054037) K (test code = 4.2 mmol/L 3.5-5 Slight 5322141525) hemolysis CL (test code = 104 mmol/L 98-108 1879952110) CO2 TOTAL (test code 30 mmol/L 23-31 = 9186057859) AGAP (test code = 2-16 5278236793) BUN (test code = 18 mg/dL 7-23 Slight 0468082686) hemolysis GLUCOSE (test code = 116 mg/dL 70-110 H 2273364257) CREATININE (test code 0.61 mg/dL 0.5-1.04 = 1792570260) CALCIUM (test code = 8.9 mg/dL 8.6-10.6 9149891086) eGFR Calculation mL/min/1.73m2 (Non-) (test code = 6841892774) eGFR Calculation mL/min/1.73m2 () (test code = 8741744070) JOSHUA (test code = JOSHUA) Association of [...] tests). Lab Interpretation Abnormal (test code = 51053-0) [facility] [id number] 11:40:00 Test Item Value Reference Range Interpretation Comments MAGNESIUM (test code = 2676997019) 2.2 mg/dL 1.7-2.4 Lab Interpretation (test code = Normal 43652-1) [facility] (for use with Heparin Drip)2019-12-29 11:21:00 Test Item Value Reference Range Interpretation Comments APTT Patient (test code See_Comment HH [Au tomated message] = 0943-2) The system [employer] generated this result transmitted ref erence range: 26 - 36 Seconds. The reference range was not used to int erpret this result as normal/abnormal . Lab Interpretation (test Abnormal code = 35006-8) [facility])2019-12-29 04:19:00 Test Item Value Reference Range Interpretation Comments POCT GLU (test code = 2043750835) 115 mg/dL 70-110 H Lab Interpretation (test code = Abnormal 52658-5) [facility] Hospital[facility] Panel (Total Cholesterol, Triglycerides, HDL) - [id number] 03:03:00 Test Item Value Reference Range Interpretation Comments CHOL (test code = 164 mg/dL 120-200 3023828422) HDL (test code = 61 mg/dL >50 7650469767) HDLC RATIO (test code = See_Comment [Au tomated message] 8975911795) The system [employer] generated this result transmit shikha reference range : <=4.5. The refe rence range was not u sed to interpret th is result as normal/abnormal . TRIG (test code = 63 mg/dL 30-170 3408355202) LDL CHOL (test code = 90 mg/dL See_Comment [Auto mated message] 00900-4) The system [employer] generated this result transmit shikha reference range : <=160. The refe rence range was not u sed to interpret th is result as normal/abnormal . VLDL (test code = 13 mg/dL 5-60 9383511970) Lab Interpretation (test Normal code = 13090-6) [facility]for use with Heparin Drip)2019-12-29 00:36:00 Test Item Value Reference Range Interpretation Comments APTT Patient (test code See_Comment H [Au tomated message] = 3173-2) The system [employer] generated this result transmitted ref erence range: 26 - 36 Seconds. The reference range was not used to int erpret this result as normal/abnormal . Lab Interpretation (test Abnormal code = 25785-3) [facility]TROP[facility] [id number] 21:42:00 Test Item Value Reference Range Interpretation Comments TROPONIN I (test 0.081 ng/mL See_Comment H [Automated code = 2679979987) message] The system which generated this result [...] ? Lab Interpretation Abnormal (test code = 58026-5) [facility] HospitalProthrombin Time (PT) / [id number] 12:39:00 Test Item Value Reference Range Interpretation Comments PROTIME PATIENT (test See_Comment [Auto mated message] code = 5964-2) The system [facility] generated this result transmitted ref erence range: 10.1 - 1 2.6 Seconds. The re ference range was not u sed to interpret this result as normal/abnor mal. INR (test code = 6301-6) Nor mal INR <1.1; Warfarin Therap eutic range 2.0 to 3. 0 or 2.5 to 3.5, dep ending upon the indica tions. Lab Interpretation (test Normal code = 50855-7) [facility]2020-11-19 12:39:00 Test Item Value Reference Range Interpretation Comments APTT Patient (test code = See_Comment [ Automated message] 3173-2) The system [employer] generated this result transmitted ref erence range: 26 - 36 Seconds. The re ference range was not u sed to interpret this result as normal/abnor mal. Lab Interpretation (test Normal code = 82441-6) [facility] HospitalTroponin [id number] 11:11:00 Test Item Value Reference Range Interpretation Comments TROPONIN I (test 0.148 ng/mL See_Comment H [Automated code = 2600993078) message] The system which generated this result [...] ? Lab Interpretation Abnormal (test code = 87903-0) [facility] HospitalGlycosylated Hemoglobin (A1C)2019-12-28 10:57:00 Test Item Value Reference Range Interpretation Comments HGB A1C (test code = 5.8 % 4-6 4548-4) JOSHUA (test code = JOSHUA) %A1C (NGSP) Interpretation (ADA)4.8-5.6 ? ? Normal or (Non-Diabetic Range)5.7-6.4 ? ? Increased Risk (Pre-Diabetic)>6.5 ?Diabetes Indicated Lab Interpretation Normal (test code = 31875-2) [facility] HospitalThyroid Stimulating Hormone (TSH)2019-12-28 10:22:00 Test Item Value Reference Range Interpretation Comments TSH (test code = See_Comment Biotin has been 2419931282) reported to cau se a negative bias, interpret resul ts relative to pat ient's use of biotin. [Automated mess age] The system [employer] generated this result transmitted ref erence range: 0.45 - 4 .70 mIU/L. The refe rence range was not u sed to interpret this result as normal/abnor mal. Lab Interpretation (test Normal code = 94602-2) [facility] [id number] 10:22:00 Test Item Value Reference Range Interpretation Comments NT-proBNP (test code 636 pg/mL See_Comment H [Autom ated = [id number]) message] The system which generated this result transmitted reference range : <=125. The reference range was not used to interpret this result as normal/abnormal . JOSHUA (test code = JOSHUA) Biotin has been reported to cause a negative bias, interpret results relative to patient's use of biotin. Lab Interpretation Abnormal (test code = 87642-0) [facility] [id number] 05:35:31 No acute pulmonary embolism through the [...] this study and agree with theabove report. [facility] 1 [id number] 03:07:42 No acute cardiopulmonary abnormality. Preliminary Report [...] reviewed this study and agree with theabove report.[facility]TR[facility] [id number] 02:26:00 Test Item Value Reference Range Interpretation Comments TROPONIN I (test 0.048 ng/mL See_Comment H [Automated code = 8074314331) message] The system which generated this result [...] ? Lab Interpretation Abnormal (test code = 44303-3) [facility]ID [facility])2019-12-28 02:22:00 Test Item Value Reference Range Interpretation Comments SARS-CoV-2 Rapid ID NOW Not Detected Not Detected (test code = 33127-3) JOSHUA (test code = JOSHUA) ID NOW COVID-19 Assay is an isothermal nucleic acid amplification test intended for the qualitative detection of nucleic acid from SARS-CoV-2 viral RNA in nasopharyngeal (DOOR REPAIRMAN) specimens. It is used under Emergency Use [...] indicated. Lab Interpretation Normal (test code = 48609-2) [facility]. METABOLIC PANEL (70262)2019-12-28 02:16:00 Test Item Value Reference Range Interpretation Comments NA (test code = 137 mmol/L 135-145 4336016670) K (test code = 3.8 mmol/L 3.5-5 1247431325) CL (test code = 101 mmol/L 98-108 3946575824) CO2 TOTAL (test code = 31 mmol/L 23-31 6112743184) AGAP (test code = 2-16 0012999369) BUN (test code = 18 mg/dL 7-23 8617895259) GLUCOSE (test code = 145 mg/dL 70-110 H 7173928952) CREATININE (test code = 0.55 mg/dL 0.5-1.04 2023568851) TOTAL BILI (test code = 0.4 mg/dL 0.1-1.8 1438701614) CALCIUM (test code = 8.8 mg/dL 8.6-10.6 1779060242) T PROTEIN (test code = 6.7 g/dL 6.3-8.2 2046553941) ALBUMIN (test code = 4.1 g/dL 3.5-5 6449944507) ALK PHOS (test code = 72 U/L 34-122 7799413016) ALTv (test code = 40 U/L 5-35 H 1742-6) AST(SGOT) (test code = 46 U/L 13-40 H 8017026412) eGFR Calculation mL/min/1.73m2 (Non-) (test code = 0809099267) eGFR Calculation mL/min/1.73m2 () (test code = 0169883702) JOSHUA (test code = JOSHUA) Association of [...] tests). Lab Interpretation Abnormal (test code = 93189-4) [facility] (NA, K, CL, CO2, GLUCOSE, BUN, CREATININE, CA)2019-12-28 02:16:00 Test Item Value Reference Range Interpretation Comments NA (test code = 137 mmol/L 135-145 6471517822) K (test code = 3.8 mmol/L 3.5-5 5148343484) CL (test code = 101 mmol/L 98-108 3126374587) CO2 TOTAL (test code = 31 mmol/L 23-31 8048589954) AGAP (test code = 2-16 0865565082) BUN (test code = 18 mg/dL 7-23 6902802290) GLUCOSE (test code = 145 mg/dL 70-110 H 4057580765) CREATININE (test code = 0.55 mg/dL 0.5-1.04 9455561503) CALCIUM (test code = 8.8 mg/dL 8.6-10.6 6387048784) eGFR Calculation mL/min/1.73m2 (Non-) (test code = 0741367539) eGFR Calculation mL/min/1.73m2 () (test code = 4550266273) JOSHUA (test code = JOSHUA) Association of [...] tests). Lab Interpretation Abnormal (test code = 61378-4) [facility] [id number] 02:01:00 Test Item Value Reference Range Interpretation Comments WBC (test code = See_Comment [Automated 6079-2) message] The sy stem which generated this result transmitted reference range : 4.30 - 11.10 10*3/?L. The reference range was not used to interpret this result as normal/abnormal . RBC (test code = See_Comment [Automated 422-8) message] The sy stem which generated this [...] RDW-SD (test code = 42.5 fL 39-49.9 00943-1) RDW-CV (test code = 12.2 % 12-15.5 788-0) PLT (test code = See_Comment [Automated 777-3) message] The sy stem which generated this result transmitted reference range : 166 - 358 10*3/ ?L. The reference r ramona was not used to interpret this result as normal/abnormal . MPV (test code = 9.7 fL 9.5-12.9 48756-7) NRBC/100 WBC (test See_Comment [Automat ed code = 8219938364) message] The system which generated this result transmitted reference range : 0.0 - 10.0 /100 WBCs. The refer ence range was not u sed to interpret th is result as normal/abnormal . NRBC x10^3 (test code <0.01 See_Comment [Auto mated = 6737032649) message] The s ystem which generated this result transmitted reference range : 10*3/?L. The reference range was not used to interpret this result as normal/abnormal . GRAN MAT (NEUT) % 52.2 % (test code = 770-8) IMM GRAN % (test code 0.30 % = 0616842428) LYMPH % (test code = 36.0 % 736-9) MONO % (test code = 7.3 % 5905-5) EOS % (test code = 3.7 % 713-8) BASO % (test code = 0.5 % 706-2) GRAN MAT x10^3(ANC) 3.36 10*3/uL 1.88-7.09 (test code = 3187833966) IMM GRAN x10^3 (test <0.03 0-0.06 code = 7722273540) LYMPH x10^3 (test code 2.32 10*3/uL 1.32-3.29 = 731-0) MONO x10^3 (test code 0.47 10*3/uL 0.33-0.92 = 742-7) EOS x10^3 (test code = 0.24 10*3/uL 0.03-0.39 711-2) BASO x10^3 (test code 0.03 10*3/uL 0.01-0.07 = 704-7) Lab Interpretation Abnormal (test code = 97228-6) [facility] 1 [id number] 22:39:59 No acute cardiopulmonary abnormality. Emphysematous changes. Preliminary Report Dictated by Resident: Chaitanya Reyes MD., have reviewed this study and agree with the abovereport.EXAM: XR CHEST 1 VW CLINICAL INDICATION: chest pain COMPARISON: None FINDINGS: The lungs are hyperexpanded and clear without focal consolidation, pleuraleffusion, or pneumothorax. The cardiac silhouette is norm al in size. No acute osseous abnormality. [facility], [...] reviewed this study and agree with the abovereport.[facility] [id number] 22:28:00 Test Item Value Reference Range Interpretation Comments TROPONIN I (test <0.012 See_Comment [Automated code = 4093027280) message] The system which generated this result [...] ? Lab Interpretation Normal (test code = 79163-4) [facility] [id number] 22:24:00 Test Item Value Reference Range Interpretation Comments NT-proBNP (test code 675 pg/mL See_Comment H [Autom ated = 7664821254) message] The system which generated this result transmitted reference range : <=125. The reference range was not used to interpret this result as normal/abnormal . JOSHUA (test code = JOSHUA) Biotin has been reported to cause a negative bias, interpret results relative to patient's use of biotin. Lab Interpretation Abnormal (test code = 89164-8) [facility] (PT[facility] / [id number] 22:20:00 Test Item Value Reference Range Interpretation [...] tions. Lab Interpretation (test Normal code = 09584-3) [facility] (NA, K, CL, CO2, GLUCOSE, BUN, CREATININE, CA)2019-07-27 22:17:00 Test Item Value Reference Range Interpretation Comments NA (test code = 138 mmol/L 135-145 5988552528) K (test code = 4.4 mmol/L 3.5-5 4224199804) CL (test code = 101 mmol/L 98-108 7128151506) CO2 TOTAL (test code = 28 mmol/L 23-31 2364302012) AGAP (test code = 2-16 1825684637) BUN (test code = 16 mg/dL 7-23 8708139453) GLUCOSE (test code = 88 mg/dL 70-110 0845046819) CREATININE (test code 0.55 mg/dL 0.5-1.04 = 3895805574) CALCIUM (test code = 10.1 mg/dL 8.6-10.6 0074357071) eGFR Calculation mL/min/1.73m2 (Non-) (test code = 0413183639) eGFR Calculation mL/min/1.73m2 () (test code = 9082912577) JOSHUA (test code = JOSHUA) Association of [...] or urine or abnormalities in imaging tests). [facility] (ALB, T.PRO, BILI T, BU/BC, ALT, AST, ALK PHOS)2019-07-27 22:17:00 Test Item Value Reference Range Interpretation Comments TOTAL BILI (test code = 2243615639) 0.7 mg/dL 0.1-1.1 BILI UNCON (test code = 8582854438) 0.8 mg/dL 0.1-1.1 BILI CONJ (test code = 4247065910) 0.0 mg/dL 0-0.3 T PROTEIN (test code = 3841806536) 7.7 g/dL 6.3-8.2 ALBUMIN (test code = 7324010527) 4.8 g/dL 3.5-5 ALK PHOS (test code = 6275669268) 49 U/L 34-122 ALTv (test code = 1742-6) 35 U/L 5-35 AST(SGOT) (test code = 5384422557) 42 U/L 13-40 H Lab Interpretation (test code = Abnormal 83415-7) [facility] ([facility] NOW RAPID TESTING)2019-07-27 22:16:00 Test Item Value Reference Range Interpretation Comments SARS-CoV-2 Rapid ID NOW Not Detected Not Detected (test code = 11046-1) JOSHUA (test code = JOSHUA) ID NOW COVID-19 Assay is an isothermal nucleic acid amplification test intended for the qualitative detection of nucleic acid from SARS-CoV-2 viral RNA in nasopharyngeal (DOOR REPAIRMAN) specimens. It is used under Emergency Use [...] indicated. Lab Interpretation Normal (test code = 76467-2) [facility] WITH [id number] 21:58:00 Test Item Value Reference Range Interpretation [...] RDW-SD (test code = 41.4 fL 39-49.9 39811-4) RDW-CV (test code = 12.2 % 12-15.5 788-0) PLT (test code = See_Comment [Automated 777-3) message] The sy stem which generated this result transmitted reference range : 166 - 358 10*3/ ?L. The reference r ramona was not used to interpret this result as normal/abnormal . MPV (test code = 9.7 fL 9.5-12.9 69742-8) NRBC/100 WBC (test See_Comment [Automat ed code = 5619285660) message] The system which generated this result transmitted reference range : 0.0 - 10.0 /100 WBCs. The refer ence range was not u sed to interpret th is result as normal/abnormal . NRBC x10^3 (test code <0.01 See_Comment [Auto mated = 3037441054) message] The s ystem which generated this result transmitted reference range : 10*3/?L. The reference range was not used to interpret this result as normal/abnormal . GRAN MAT (NEUT) % 72.2 % (test code = 770-8) IMM GRAN % (test code 0.40 % = 1257533785) LYMPH % (test code = 19.5 % 736-9) MONO % (test code = 5.2 % 5905-5) EOS % (test code = 2.1 % 713-8) BASO % (test code = 0.6 % 706-2) GRAN MAT x10^3(ANC) 7.15 10*3/uL 1.88-7.09 H (test code = 4077363536) IMM GRAN x10^3 (test 0.04 10*3/uL 0-0.06 code = 7136199180) LYMPH x10^3 (test code 1.93 10*3/uL 1.32-3.29 = 731-0) MONO x10^3 (test code 0.52 10*3/uL 0.33-0.92 = 742-7) EOS x10^3 (test code = 0.21 10*3/uL 0.03-0.39 711-2) BASO x10^3 (test code 0.06 10*3/uL 0.01-0.07 = 704-7) Lab Interpretation Abnormal (test code = 05174-9) [facility]
[2021-10-24] MEDS ORDERED: CEFTRIAXONE 1000 MG/VIAL ONE (20:57)
[2021-10-24] MEDS ORDERED: METHYLPREDNISOLONE 125 MG INJ ONE (20:57)
[2021-10-24] MEDS ORDERED: predniSONE 20 MG TAB ONE ×2 (20:57→21:49)
[2021-10-24] MEDS ORDERED: ALBUTEROL 2.5 MG/3 ML NEB SOL ONE (20:57)
[2021-10-24] MEDS ORDERED: NA CHLORIDE 0.9% 1,000 ML ONE (20:58)
[2021-10-24] MEDS ORDERED: IPRATROPIUM BROM 0.5MG/2.5ML ONE (20:58)
--- NOTE | 2021-10-24 21:20 | RAD REPORT ---
EXAM DESCRIPTION: RAD - Chest Single View - 10/24/2021 8:58 pm CLINICAL HISTORY: Cough COMPARISON: Chest Single View dated 09/03/2021; Chest Single View dated 04/21/2021; Chest Single View dated 04/19/2021; Chest Single View dated 04/16/2021 FINDINGS: Lines: None. Lungs: No evidence of edema or pneumonia. Emphysema. Pleural: No significant pleural effusions or pneumothorax. Cardiac: The heart size is within normal limits. Mediastinum: Within normal limits. Bones: No acute fractures. Other: None IMPRESSION: Emphysema without superimposed acute process identified. The USPTF recommends annual scr eening for lung cancer with low-dose CT (LDCT) in adults aged 50 to 80 years who have a 20 pack-year smoking history and currently smoke or have quit within the past 15 years.
[2021-10-24 21:33] LABS: Protime INR 0.96
[2021-10-24 21:34] LABS: Absolute Lymphocytes (CBC) 1.6 K/uL (0.7-4.9); Hematocrit 39.3 % (36.0-45.0); Lymphocytes % 16.7 % (15.3-44.8); MCV 83.3 fL (80-100); MPV 7.5 fL (7.6-11.3); RBC Red Blood Cell Count 4.72 M/uL (3.86-4.86)
[2021-10-24] MEDS ORDERED: NA CHLORIDE 0.9% 50 ML ONE (21:49)
[2021-10-24 21:51] LABS: ALT/SGPT 158 U/L (12-78); AST/SGOT 152 U/L (15-37); Alkaline Phosphatase 87 U/L (45-117); BUN Blood Urea Nitrogen 14 mg/dL (7-18); Bicarbonate 30 mmol/L (21-32); Bilirubin Direct < 0.1 mg/dL (0-0.2); Bilirubin Total 0.1 mg/dL (0.2-1.0); Glomerular Filtration Rate 81 ml/min (=/>90); Glucose Level 173 mg/dL (74-106); NT PRO-BNP 926 pg/mL (<125); Potassium 3.8 mmol/L (3.5-5.1); Protein, Total 7.9 g/dL (6.4-8.2); Sodium Level 139 mmol/L (136-145); Troponin High Sensitivity 17.1 pg/mL (<58.9)
[2021-10-24] MEDS ORDERED: LEVALBUTEROL 1.25 MG/3 ML NEB ONE (22:05)
[2021-10-24 22:14] LABS: SARS-CoV-2 Antigen Rapid Res Negative (Negative)
--- NOTE | 2021-10-24 22:24 | EDPHYS ---
Physician Documentation [facility] Name: Dalia Reyes Age: 65 yrs Sex: Female : 1955 Arrival Date: 10/24/2021 Time: 19:34 Bed 3 Private MD: FERNANDEZ Physician Iván Mendez HPI: 10/24 20:50 This 65 yrs old Female presents to ER via EMS with complaints of sob, copd italo tipped off by perfume. 20:50 The patient has shortness of breath at rest, with light activity. Onset: The italo symptoms/episode began/occurred 1 day(s) ago. Duration: The symptoms are continuous, but are steadily getting better. The patient's shortness of breath is aggravated by coughing, prone position, is alleviated by nebulizer treatment, sitting up, application of supplemental oxygen. The patient or guardian reports cough, difficulty breathing. Modifying factors: The symptoms are alleviated by remaining still, the symptoms are aggravated by lying flat. Associated signs and symptoms: Pertinent positives: non-productive cough. Severity of symptoms: At their worst the symptoms were mild today, in the emergency department the symptoms are worse. Historical: - Allergies: 19:37 Benadryl; ke1 19:37 Lorazepam; ke1 19:37 Valium; ke1 - PMHx: 19:37 Chronic obstructive lung disease; diabetes mellitus; Emphysema; Hypercholesterolemia; ke1 Hypertensive disorder; - PSHx: 19:37 section; Heart Stents; ke1 - Immunization history:: Adult Immunizations Client reports having NOT received the Covid vaccine. - Social history:: Smoking status: Patient reports the use of cigarette tobacco products, smokes one pack cigarettes per day. - Family history:: not pertinent. ROS: 20:50 Constitutional: Negative for fever, chills, and weight loss, Eyes: Negative for injury, italo pain, redness, and discharge, ENT: Negative for injury, pain, and discharge, Neck: Negative for injury, pain, and swelling, Cardiovascular: Negative for chest pain, palpitations, and edema, Abdomen/GI: Negative for abdominal pain, nausea, vomiting, diarrhea, and constipation, Back: Negative for injury and pain, : Negative for injury, bleeding, discharge, and swelling, MS/Extremity: Negative for injury and deformity, Skin: Negative for injury, rash, and discoloration, Neuro: Negative for headache, weakness, numbness, tingling, and seizure, Psych: Negative for depression, anxiety, suicide ideation, homicidal ideation, and hallucinations, Allergy/Immunology: Negative for hives, rash, and allergies, Endocrine: Negative for neck swelling, polydipsia, polyuria, polyphagia, and marked weight changes, Hematologic/Lymphatic: Negative for swollen nodes, abnormal bleeding, and unusual bruising. 20:50 Respiratory: Positive for cough, "sounds productive", shortness of breath, on exertion. wheezing, expiratory. Exam: 20:50 Constitutional: This is a well developed, well nourished patient who is awake, alert, italo and in no acute distress. Head/Face: Normocephalic, atraumatic. Eyes: Pupils equal round and reactive to light, extra-ocular motions intact. Lids and lashes normal. Conjunctiva and sclera are non-icteric and not injected. Cornea within normal limits. Periorbital areas with no swelling, redness, or edema. ENT: Nares patent. No nasal discharge, no septal abnormalities noted. Tympanic membranes are normal and external auditory canals are clear. Oropharynx with no redness, swelling, or masses, exudates, or evidence of obstruction, uvula midline. Mucous membranes moist. Neck: Trachea midline, no thyromegaly or masses palpated, and no cervical lymphadenopathy. Supple, full range of motion without nuchal rigidity, or vertebral point tenderness. No Meningismus. Chest/axilla: Normal chest wall appearance and motion. Nontender with no deformity. No lesions are appreciated. Cardiovascular: Regular rate and rhythm with a normal S1 and S2. No gallops, murmurs, or rubs. Normal PMI, no JVD. No pulse deficits. Abdomen/GI: Soft, non-tender, with normal bowel sounds. No distension or tympany. No guarding or rebound. No evidence of tenderness throughout. Back: No spinal tenderness. No costovertebral tenderness. Full range of motion. Female : Normal external genitalia. Skin: Warm, dry with normal turgor. Normal color with no rashes, no lesions, and no evidence of cellulitis. MS/ Extremity: Pulses equal, no cyanosis. Neurovascular intact. Full, normal range of motion. Neuro: Awake and alert, GCS 15, oriented to person, place, time, and situation. Cranial nerves II-XII grossly intact. Motor strength 5/5 in all extremities. Sensory grossly intact. Cerebellar exam normal. Normal gait. Psych: Awake, alert, with orientation to person, place and time. Behavior, mood, and affect are within normal limits. 20:50 Respiratory: the patient does not display signs of respiratory distress, Respirations: normal, no acute changes, Breath sounds: bronchial sounds, that are mild, are scattered, rhonchi, that are mild, are scattered, + upper airway congestion. wheezing: expiratory is scattered. Vital Signs: 19:34 BP 137 / 97; Pulse 93; Resp 18; Temp 98.4(O); Pulse Ox 100% ; Weight 57.15 kg; Height 5 ke1 ft. 6 in. (167.64 cm); Pain 0/10; 21:00 BP 144 / 69; Pulse 76; Resp 19; Pulse Ox 98% on 3 lpm NC; Pain 0/10; ke1 22:57 BP 159 / 79; Pulse 86; Resp 17; Temp 98.2; Pulse Ox 94% on 3 lpm NC; Pain 0/10; ke1 19:34 Body Mass Index 20.34 (57.15 kg, 167.64 cm) ke1 MDM: 19:52 Patient medically screened. italo 20:50 Differential diagnosis: asthma, CHF exacerbation, Chronic Obstructive Pulmonary Disease italo bronchitis, flu, URI, pneumonia, Pneumothorax pulmonary edema. Antibiotic administration: The patient is discharged and will get outpatient antibiotics, Zithromax. The patient's Wells Deep Vein Thrombosis Score was calculated as follows: Total Score: 0-2 Pts- Low Risk. The patient's pulmonary embolism risk score was calculated as follows: Total Score: 0-2 points. This patient was found to be at low risk for a pulmonary embolism by using the Well's assessment criteria. Immunization status: Pneumococcal vaccine: Influenza vaccine: Data reviewed: vital signs, nurses notes, EMS record, lab test result(s), CBC, electrolytes, Flu: negative hepatic panel, radiologic studies, plain films. 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 Test interpretation: by ED physician or midlevel provider: ECG, plain radiologic studies. 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 10/24 19:51 Order name: Basic Metabolic Panel; Complete Time: 22:22 [facility] 10/24 19:51 Order name: CBC with Diff; Complete Time: 22:22 [facility] 10/24 19:51 Order name: LFT's; Complete Time: 22:22 [facility] 10/24 19:51 Order name: Magnesium; Complete Time: 22:22 [facility] 10/24 19:51 Order name: NT PRO-BNP; Complete Time: 22:22 [facility] 10/24 19:51 Order name: PT-INR; Complete Time: 22:22 [facility] 10/24 19:51 Order name: Troponin HS; Complete Time: 22:22 [facility] 10/24 19:51 Order name: XRAY Chest (1 view); Complete Time: 22:22 [facility] 10/24 19:51 Order name: SARS RAPID; Complete Time: 22:22 [facility] 10/24 19:51 Order name: Blood Culture Adult (2) 10/24 19:51 Order name: Lactate; Complete Time: 22:22 [facility] 10/24 19:51 Order name: EKG; Complete Time: 19:52 [facility] 10/24 19:51 Order name: Cardiac monitoring; Complete Time: 20:35 [facility] 10/24 19:51 Order name: EKG - Nurse/Tech; Complete Time: 21:30 [facility] 10/24 19:51 Order name: IV Saline Lock; Complete Time: 21:30 [facility] 10/24 19:51 Order name: Labs collected and sent; Complete Time: 21:30 [facility] 10/24 19:51 Order name: O2 Per Protocol; Complete Time: 20:35 [facility] 10/24 19:51 Order name: O2 Sat Monitoring; Complete Time: 20:35 [facility] Administered Medications: 21:30 Drug: NS 0.9% 1000 ml Route: IV; Rate: 125 ml/hr; Site: right antecubital; jb4 22:45 Follow up: IV Status: Completed infusion ke1 21:30 Drug: SOLU-Medrol (methylPrednisoLONE) 125 mg Route: IVP; Site: right antecubital; jb4 22:00 Follow up: Response: No adverse reaction; Wheezing diminished ke1 21:30 Drug: Albuterol - atroVENT (ipratropium) (3:1) (2.5 mg - 0.5 mg) 3 ml Route: Nebulizer; jb4 21:45 Follow up: Response: No adverse reaction ke1 21:30 Drug: predniSONE 40 mg Route: PO; jb4 22:44 Follow up: Response: No adverse reaction ke1 21:47 Drug: Rocephin (cefTRIAXone) 1 grams Route: IV; Rate: per protocol; Site: left wrist; ke1 22:00 Follow up: Response: No adverse reaction; IV Status: Completed infusion ke1 21:47 Drug: predniSONE 20 mg Route: PO; ke1 22:44 Follow up: Response: No adverse reaction ke1 22:33 Drug: Xopenex (levalbuterol) 2.5 mg Route: Inhalation; ke1 22:41 Drug: Zithromax (azithromycin) 500 mg Route: PO; ke1 22:43 Follow up: Response: Medication administered at discharge. ke1 Disposition Summary: 10/24/21 22:23 Discharge Ordered Location: Home italo Problem: new italo Symptoms: have improved italo Condition: Stable italo Diagnosis - COPD/ Chronic obstructive pulmonary disease with (acute) exacerbation italo - COPD/ Chronic obstructive pulmonary disease, unspecified italo Followup: italo - With: Private Physician - When: 2 - 3 days - Reason: Recheck today's complaints, Continuance of care, Re-evaluation by your physician Followup: italo - With: - When: 2 - 3 days - Reason: Recheck today's complaints, Continuance of care, Re-evaluation by your physician Discharge Instructions: - Discharge Summary Sheet italo - Chronic Bronchitis, Adult italo - Chronic Obstructive Pulmonary Disease italo - Chronic Obstructive Pulmonary Disease Exacerbation italo - Cough, Adult, [id number] italo - Cough, Adult italo Forms: - Medication Reconciliation Form italo - Thank You Letter italo - Antibiotic Education italo - Prescription Opioid Use [facility] Prescriptions: - Albuterol Sulfate 2.5 mg /3 mL (0.083 %) Inhalation Solution for Nebulization - inhale 1 unit by NEBULIZATION route every 8 hours As needed; 1 box; Refills: 0, italo Product Selection Permitted - Zithromax Z-Jhoan 250 mg Oral Tablet - take 1 tablet by ORAL route as directed for 5 days Day 1 - take two (2) tablets italo one time. Day 2, 3, 4 , 5 take one (1) tablet once daily.; 6 tablet; Refills: 0, Product Selection Permitted - Prednisone 20 mg Oral Tablet - take 2 tablets by ORAL route once daily for 5 days; 10 tablet; Refills: 0, italo Product Selection Permitted Signatures: Dispatcher [employer] Iván Morales MD MD cha Bryson, James RN RN jb4 Sierra Leong RN RN ke1
--- NOTE | 2021-10-24 22:24 | ER ---
Nurse's Notes [facility] Name: Dalia Reyes Age: 65 yrs Sex: Female : 1955 Arrival Date: 10/24/2021 Time: 19:34 Bed 3 Private MD: Diagnosis: COPD/ Chronic obstructive pulmonary disease with (acute) exacerbation;COPD/ Chronic obstructive pulmonary disease, unspecified Presentation: 10/24 19:34 Chief complaint: EMS states: SOB of breath probably triggered by daughter perfume. ke1 Coronavirus screen: Vaccine status: Patient reports being unvaccinated. Ebola Screen: No symptoms or risks identified at this time. Initial Sepsis Screen: Does the patient meet any 2 criteria? No. Patient's initial sepsis screen is negative. Does the patient have a suspected source of infection? No. Patient's initial sepsis screen is negative. Risk Assessment: Do you want to hurt yourself or someone else? Patient reports no desire to harm self or others. Onset of symptoms was October 24, 2021 at 18:45. Care prior to arrival: Medication(s) given: Albuterol Neb x 1, Atrovent Neb x 1. 19:34 Method Of Arrival: EMS: [facility] 19:34 Acuity: CONSTANTINO 3 ke1 19:36 Care prior to arrival: Medication(s) given: Normal saline infusion, 100 ml. ke1 Triage Assessment: 19:38 General: Appears in no apparent distress. Behavior is appropriate for age. Pain: Denies ke1 pain. Respiratory: Breath sounds with wheezes in mediastinum, right upper lobe and left upper lobe. Historical: - Allergies: 19:37 Benadryl; ke1 19:37 Lorazepam; ke1 19:37 Valium; ke1 - PMHx: 19:37 Chronic obstructive lung disease; diabetes mellitus; Emphysema; Hypercholesterolemia; ke1 Hypertensive disorder; - PSHx: 19:37 section; Heart Stents; ke1 - Immunization history:: Adult Immunizations Client reports having NOT received the Covid vaccine. - Social history:: Smoking status: Patient reports the use of cigarette tobacco products, smokes one pack cigarettes per day. - Family history:: not pertinent. Screenin:40 Abuse screen: Denies threats or abuse. Nutritional screening: No deficits noted. ke1 Tuberculosis screening: No symptoms or risk factors identified. Fall Risk No fall in past 12 months (0 pts). No secondary diagnosis (0 pts). IV access (20 points). Ambulatory Aid- None/Bed Rest/Nurse Assist (0 pts). Gait- Normal/Bed Rest/Wheelchair (0 pts) Mental Status- Oriented to own ability (0 pts). Total Coronel Fall Scale indicates No Risk (0-24 pts). Vital Signs: 19:34 BP 137 / 97; Pulse 93; Resp 18; Temp 98.4(O); Pulse Ox 100% ; Weight 57.15 kg; Height 5 ke1 ft. 6 in. (167.64 cm); Pain 0/10; 21:00 BP 144 / 69; Pulse 76; Resp 19; Pulse Ox 98% on 3 lpm NC; Pain 0/10; ke1 22:57 BP 159 / 79; Pulse 86; Resp 17; Temp 98.2; Pulse Ox 94% on 3 lpm NC; Pain 0/10; ke1 19:34 Body Mass Index 20.34 (57.15 kg, 167.64 cm) ke1 ED Course: 19:34 Patient arrived in ED. ke1 19:34 Sierra Leong, RN is Primary Nurse. ke1 19:36 Triage completed. ke1 19:39 Maintain EMS IV. Gauge \T\ site: L wrist 20 G. ke1 19:40 Arm band placed on right wrist. ke1 19:40 Bed in low position. Call light in reach. Side rails up X 1. Side rails up X2. ke1 19:52 Iván Mendez MD is Attending Physician. italo 20:59 XRAY Chest (1 view) In Process Unspecified. EDMS 21:26 Patient has correct armband on for positive identification. Warm blanket given. Cardiac mh5 monitor on. Pulse ox on. NIBP on. 22:23 Alonso Licona MD is Referral Physician. itlao 22:43 No provider procedures requiring assistance completed. ke1 23:00 IV discontinued. ke1 Administered Medications: 21:30 Drug: NS 0.9% 1000 ml Route: IV; Rate: 125 ml/hr; Site: right antecubital; jb4 22:45 Follow up: IV Status: Completed infusion ke1 21:30 Drug: SOLU-Medrol (methylPrednisoLONE) 125 mg Route: IVP; Site: right antecubital; jb4 22:00 Follow up: Response: No adverse reaction; Wheezing diminished ke1 21:30 Drug: Albuterol - atroVENT (ipratropium) (3:1) (2.5 mg - 0.5 mg) 3 ml Route: Nebulizer; jb4 21:45 Follow up: Response: No adverse reaction ke1 21:30 Drug: predniSONE 40 mg Route: PO; jb4 22:44 Follow up: Response: No adverse reaction ke1 21:47 Drug: Rocephin (cefTRIAXone) 1 grams Route: IV; Rate: per protocol; Site: left wrist; ke1 22:00 Follow up: Response: No adverse reaction; IV Status: Completed infusion ke1 21:47 Drug: predniSONE 20 mg Route: PO; ke1 22:44 Follow up: Response: No adverse reaction ke1 22:33 Drug: Xopenex (levalbuterol) 2.5 mg Route: Inhalation; ke1 22:41 Drug: Zithromax (azithromycin) 500 mg Route: PO; ke1 22:43 Follow up: Response: Medication administered at discharge. ke1 Medication: 22:43 VIS not applicable for this client. ke1 Outcome: 22:23 Discharge ordered by MD. puckett 22:43 Discharged to home ke1 22:43 Condition: good 22:43 Discharge instructions given to 23:01 Patient left the ED. ke1 Signatures: Dispatcher [employer] Iván Morales MD MD cha Bryson, James, RN RN Amara Gao [facility] Sierra Leong RN RN ke1
[2021-10-24] MEDS ORDERED: AZITHROMYCIN 250 MG TAB ONE (22:45)
[2021-10-26 06:50] VITALS: BP 159/79; TEMP 98.2; O2SAT 94
--- NOTE | 2021-10-26 15:58 | EKG ---
Test Date: 2021-10-24 Test Time: 21:03:09 Utility Operator Yarn: JAMIL MEASUREMENT RESULTS: Intervals: Rate: 74 MO: 142 QRSD: 80 QT: 398 QTc: 441 [place]: P: 86 MO: 142 QRS: 78 T: 82 INTERPRETIVE STATEMENTS: Normal sinus rhythm Possible Left atrial enlargement Borderline ECG Compared to ECG 09/03/2021 20:46:29 No significant changes Electronically Signed On 10-26-21 15:54:43 CDT by Ramses Palmer
== END 2021-10-24 23:01 | disposition home or self-care (01) ==
LOC: ER 19:25
DX: J44.1 Chronic obstructive pulmonary disease with (acute) exacerbation (principal); I10 Essential (primary) hypertension; F17.210 Nicotine dependence, cigarettes, uncomplicated; Z20.822 Contact with and (suspected) exposure to COVID-19
CPT/HCPCS: 93005; 87040 ×2; 85025; 80048; 36415; 83735; 85610; 80076; 83605; 84484; 83880; 71045; 94640; 99285; 87811; J7614; J7512 ×2; J7030; J2930

== ENCOUNTER 2021-11-09 04:04 | Observation (INO) | payer OTHER ==
--- OUTSIDE RECORDS SUMMARY | 2021-11-09 04:11 | XMS REPORT | Continuity of Care Document ---
:1955 Author Organization [facility] t Address [address] [place] [address] Care Team Providers Name Role Phone Asked, No Pcp Primary Care Physician Unavailable Zina DALY, Colette De León Attending Clinician Hyun Flynn MD Attending Clinician Doctor Unassigned, [place] Attending Clinician Unavailable Sarah Barkley Attending Clinician WILLIAN FUNEZ JR Attending Clinician Unavailable Minna Mike MD Attending Clinician Don DALY, Lexy Thibodeaux Attending Clinician David Echeverria Attending Clinician [phone] MINNA MIKE Attending Clinician Unavailable Soila Villar DO Attending Clinician SOILA VILLAR Attending Clinician Unavailable HYUN FLYNN Admitting Clinician Unavailable Chiqui BOB, David Alva Admitting Clinician [phone] SOILA VILLAR Admitting Clinician Unavailable Payers Payer Name Policy Type Policy Number Effective Date Expiration Date S ource Problems Condition Condition Condition Status Onset Resolution Last Treating Co mments Source Name Details Category Date Date Treatment Clinician Date COPD COPD Disease Active [facility] exacerbati exacerbati 07-15 [facility] on on 00:00: Hospita 00 l Diabetes [...] [place] [facility] No known No known Disease Unive rs active active ity of problems problems [facility] Allergies, Adverse Reactions, Alerts Allergy Allergy Status [...] Active Univers ALLERGIE Class ity of S [facility] Social History Social Habit Start Date Stop Date Quantity Comments Source History of tobacco Cigarette Smoker [facility] use Hospital Exposure to Not sure University of SARS-CoV-2 (event) [facility] Tobacco use and 2021-07-15 2021-07-15 Smokeless [facility] exposure 00:00:00 00:00:00 tobacco non-user Hospital Alcohol intake 2021-07-15 2021-07-15 Ex-drinker [facility] 00:00:00 00:00:00 (finding) Hospital Cigarettes smoked 2021-07-15 2021-07-[address] current (pack per 00:00:00 00:00:00 Hospita l day) - Reported Cigarette 2019-12-28 2019-12-28 University of pack-years 00:00:00 00:00:00 [place] [facility] History SDOH 2019-12-28 2019-12-28 1 University o f Alcohol Frequency 00:00:00 00:00:00 [place] [facility] History SDOH 2019-12-28 2019-12-28 99 University o f Alcohol Std Drinks 00:00:00 00:00:00 [place] [facility] History SDOH 2019-12-28 2019-12-28 1 University o f Alcohol Binge 00:00:00 00:00:00 [place] [facility] Sex Ass[birth year] At [birth year] [facility] 00:00:00 00:00:00 Hospital Smoking Status Start Date Stop Date Source Smokes tobacco daily 2021-07-15 00:00:00 [facility] Unknown if ever smoked [facility] Medications Ordered Filled Start Stop Current Ordering Indication Dosage Frequency Signature Comments Components Source Medication Medication Date Date Medication? Clinician (SIG) Name Name predniSONE Yes 10mg QD Take 10 mg M ethodi (DELTASONE) 6-[address] 10 mg 13:57: daily. Hospita tablet 05 l lamoTRIgine 2021-0 Yes 100mg Q.5D Take 100 M ethodi (LaMICtal) 6-[address] 100 MG 13:57: mouth 2 Hospita tablet 05 (two) l times a day. busPIRone 2021-0 Yes 15mg Q.5D Take 15 mg Me [facility]odi (BUSPAR) 10 6-[address] MG tablet 13:57: (two) Hospita 05 times a l day. traZODone 2021-0 Yes 100mg Take 100 Met hodi (DESYREL) 6-[address] 100 MG 13:57: mouth. Hospita tablet 05 l clopidogreL 2021-0 Yes 75mg Take 75 mg Methodi (PLAVIX) 75 6-[address] mg tablet 13:57: Hospita 05 l metoprolol 2021-0 Yes 25mg Q.5D Take 25 mg M ethodi succinate 6-[address] XL 13:57: (two) Hospita (TOPROL-XL) 05 times a l 25 mg 24 hr day. tablet linaGLIPtin 2022-0 Yes 5mg QD Take 5 mg M ethodi (TRADJENTA) 6-[address] 5 mg tablet 13:57: daily with Hospita 05 breakfast. l atorvastati 0 Yes 80mg QD Take 80 mg Methodi [...] inhaler hours as needed for wheezing. ipratropium 0 Yes 3mL Q.25D Take 3 mL Methodi -albuteroL 6- by st (DUO-NEB) 13:57: nebulizati Ho spita 0.5-2.5 05 on 4 l mg/3 mL (four) nebulizer times a day as needed for wheezing. fluticasone Yes 1{puff} Q.5D Inhale 1 Methodi propionate 6-[address] (FLOVENT 13:57: (two) Hospita HFA) 110 05 times a l mcg/actuati day. on inhaler aspirin 0 Yes 81mg QD Take 81 mg Meth daniel (ECOTRIN) 6-[address] 81 MG 13:57: daily. Hospita enteric 05 l coated tablet roflumilast 0 Yes 500ug QD Take 500 M ethodi (Daliresp) 6-[address] 500 mcg 13:57: mouth Hospita tablet 05 daily. l sertraline 0 Yes 50mg QD Take 50 mg M ethodi (ZOLOFT) 50 6-[address] MG tablet 13:57: daily. Hospit a 05 l predniSONE 0 Yes 10mg QD Take 10 mg M ethodi (DELTASONE) 6-[address] 10 mg 13:57: daily. Hospita tablet 05 l lamoTRIgine 2022-0 Yes 100mg Q.5D Take 100 M ethodi (LaMICtal) 6-[address] 100 MG 13:57: mouth 2 Hospita tablet 05 (two) l times a day. busPIRone 2022-0 Yes 15mg Q.5D Take 15 mg Me thodi (BUSPAR) 10 6-[address] MG tablet 13:57: (two) Hospita 05 times a l day. traZODone 2022-0 Yes 100mg Take 100 Met hodi (DESYREL) 6-[address] 100 MG 13:57: mouth. Hospita tablet 05 l clopidogreL 2-0 Yes 75mg Take 75 mg Methodi (PLAVIX) 75 6-[address] mg tablet 13:57: Hospita 05 l metoprolol 2-0 Yes 25mg Q.5D Take 25 mg M ethodi succinate 6-[address] XL 13:57: (two) Hospita (TOPROL-XL) 05 times a l 25 mg 24 hr day. tablet linaGLIPtin 2021-0 Yes 5mg QD Take 5 mg M ethodi (TRADJENTA) 6-[address] 5 mg tablet 13:57: daily with Hospita 05 breakfast. l atorvastati 2021-0 Yes 80mg QD Take 80 mg Methodi n (LIPITOR) 6-[address] 80 MG 13:57: nightly. Hospita tablet 05 l fluticasone 2021-0 Yes Inhale 1 Me thodi -umeclidin- 6-[address] vilanter 13:57: s. Hospita (Trelegy 05 l Ellipta) 100-62.5-25 mcg blister with device powder for inhalation albuterol 2021-0 Yes 2{puff} Q6H Inhale 2 M ethodi (PROAIR 6-[address] HFA) 90 13:57: every 6 Hospita mcg/actuati 05 (six) l on inhaler hours as needed for wheezing. ipratropium 2021-0 Yes 3mL Q.25D Take 3 mL Methodi [...] mouth Hospita tablet 05 daily. l sertraline Yes 50mg QD Take 50 mg M [...] of 80 mg 20:14: at [place] tablet bedtime. Medical Branch mupirocin 2 2019-02 Yes Apply to Un destiny % ointment 1-21 area(s) 2 ity of 20:14: (two) times Medical daily. Branch metoprolol 2019-02 Yes [...] by ity of tablet 20:14: mouth at [place] bedtime. Medical Branch busPIRone 2019-02 Yes 7.5mg [...] ity of 44 20:14: (two) [place] mcg/actuati times Medical on inhaler daily. Branch [...] 1-21 area(s) 2 ity of 20:14: (two) [place] times Medical daily. Branch metoprolol 2019-02 Yes [...] by ity of tablet 20:14: mouth at [place] bedtime. Medical Branch busPIRone 2019-02 Yes 7.5mg [...] tablet 20:14: mouth 2 (two) Medical times [place] daily. fluticasone 2019-02 Yes 1{puff} Inhale 1 Univers propionate 1-21 Puff 2 ity of 44 20:14: (two) [place] mcg/actuati times Medical on inhaler daily. Branch albuterol 2019-02 Yes 2{puff} Inhale 2 U nivers (PROVENTIL 1-21 Puffs ity of HFA) 90 20:14: every 6 [place] mcg/actuati (six) Medical on inhaler hours as Branc h needed for Wheezing or Shortness of Breath. atorvastati 2019-02 Yes 80mg Take 80 mg Univers n (LIPITOR) 1-21 by mouth ity of 80 mg 20:14: at [facility] 09 bedtime. Medical Branch mupirocin 2 2019-02 Yes Apply to Un destiny % ointment 1-21 area(s) 2 ity of 20:14: (two) [place] times Medical daily. Branch metoprolol 2019-02 Yes [...] Until Discontinu ed, Routine clopidogreL 2019-02 Yes [id number] 75mg Take 1 Univers 75 mg 1-21 tablet by ity of tablet 00:00: mouth [place] 00 daily. Medical Branch aspirin 81 2019-02 Yes [id number] 81mg Take 1 Univers mg chewable 1-21 tablet by ity of tablet 00:00: mouth [place] 00 daily. Medical Branch predniSONE 2019-02 Yes [id number] 40mg Take 2 U nivers 20 mg 1-21 tablets by ity of tablet 00:00: mouth [place] 00 daily. Medical Branch clopidogreL 2019-02 Yes [id number] 75mg Take 1 Univers 75 mg 1-21 tablet by ity of tablet 00:00: mouth [place] 00 daily. Medical Branch aspirin 81 2019-02 Yes [id number] 81mg Take 1 Univers mg chewable 1-21 tablet by ity of tablet 00:00: mouth [place] 00 daily. Medical Branch predniSONE 2019-02 Yes [id number] 40mg Take 2 U nivers 20 mg 1-21 tablets by ity of tablet 00:00: mouth [place] 00 daily. Medical Branch aspirin 81 2019-02 Yes [id number] 81mg Take 1 Univers mg chewable 1-21 tablet by ity of tablet 00:00: mouth [place] 00 daily. Medical Branch clopidogreL 2019-02 2020- No 75mg Take 75 mg Univers 75 mg 1-20 11-20 by mouth ity of tablet 22:51: 00:00 daily. [place] 35 :00 Medical Branch clopidogreL 2019-02- No Oral, Univ ers (PLAVIX) -28 12- TITRATE - ity o f tablet 21:25: 21:25 FOR [place] 13 :13 PROCEDURE Medical USE, 1 Branch dose, Starting Wed12/29/19 at 1525, Until Wed12/29/19 at 1525, Routine ticagrelor 2019-02- No Oral, Unive rs (BRILINTA) 02-27 TITRATE - ity of tablet 20:57: 20:57 FOR [place] 39 :39 PROCEDURE Medical USE, 1 Branch [...] Yes 20mg 20 mg, Unive rs (PROZAC) 02-27 Oral, ity of capsule 20 15:00: DAILY, [place] mg 00 First dose Medical on Wed Branch 11/20/20 at 0900, Until Discontinu ed, Routine mupirocin 2019-02 Yes Univers (BACTROBAN 1-20 ity of OINT) 2 % 14:30: [place] skin 00 Medical ointment Branch Sliding 2019-02 Yes Subcutaneo Univ ers Scale 1-20 us, TID ity of Insulin - 03:00: MEALS+HS, Nabil as Aspart 00 First dose Medical (NOVOLOG) + on [facility] Branch Fsbg 12/28/19 Testing at 2100, Until Discontinu ed, Routine lamoTRIgine 2019-02 Yes 100mg 100 mg, Un destiny (LAMICTAL) 1-20 Oral, BID, ity of tablet 100 02:00: First dose [place] mg 00 on [facility] 12/28/19 Branch at 2000, Until Discontinu ed, Routine predniSONE 2019-02 Yes [id number] 40mg Take 2 U nivers 20 mg 1-20 tablets by ity of tablet 00:00: mouth [place] 00 daily. Medical Branch clopidogreL 2019-02 Yes [id number] 75mg Take 1 Univers 75 mg 1-20 tablet by ity of tablet 00:00: mouth [place] 00 daily. Medical Branch predniSONE 2019-02 2020- No [id number] 40mg Take 2 Univers 20 mg 1-20 -20 tablets by ity of tablet 00:00: 00:00 mouth [place] 00 :00 daily. Medical Branch predniSONE 2019-02 2020- No [id number] 40mg Take 2 Univers 20 mg 1-20 -19 tablets by ity of tablet 00:00: 00:00 mouth [place] 00 :00 daily for Medical 4 days. Branch atorvastati 2019-02- No 40mg 40 mg, Uni vers n (LIPITOR) 02-26 Oral, QPM, i ty of tablet 40 23:00: 02:01 First dose [place] mg 00 :46 on [facility] 12/28/19 Branch at 1700, Until Discontinu ed, Routine metoprolol 2019-02 2020- No 25mg Take 25 mg Univers tartrate 25 02-26 by mouth 2 i ty of mg tablet 21:56: 00:00 (two) [place] 56 :00 times Medical daily. Branch sulfur 2019-02 2020- No 5mL 5 mL, Univers hexafluorid 02-26 Intravenou i ty of e microsphr 18:45: 17:20 s, ONCE, 1 [place] (LUMASON) 00 :00 dose, [place] Medic al injection 5 12/28/19 Bran ch mL at 1245, Routine
tribunal member approving Restricted medication : DEJAN GONSALEZ Saline 2019-02 2020- No 6mL 6 mL, Univers Bubble 02-26 Injection, ity of Study 17:33: 22:27 SEE-INSTRU [place] 16 :16 CTIONS, 2 Medical doses, Branch Starting [facility] 12/28/19 at 1133, Until Wed12/29/19 at 1627, Routine Saline 2019-02 Yes 6mL 6 mL, Univers Bubble 02-26 Injection, ity of Study 17:33: SEE-INSTRU [place] 14 CTIONS, 2 Medical doses, Branch Starting [facility] 12/28/19 at 1133, Until Discontinu ed, Routine clopidogreL 2019-02 Yes 75mg 75 mg, Univ ers (PLAVIX) 02-26 Oral, ity of tablet 75 15:00: DAILY, [place] mg 00 First dose Medical on [facility] Branch 12/28/19 at 0900, Until Discontinu ed, Routine
tribunal member approving Restricted medication : LEXY MONAE aspirin 2019-02 Yes 81mg 81 mg, Univers chewable 02-26 Oral, ity of tablet 81 15:00: DAILY, [place] mg 00 First dose Medical on [facility] Branch 12/28/19 at 0900, Until Discontinu ed, Routine predniSONE 2019-02- No 40mg 40 mg, Univ ers (DELTASONE) 02-26 Oral, ity of tablet 40 15:00: 14:59 DAILY, 5 [place] mg 00 :00 doses, Medical First dose Branch on [facility] 12/28/19 at 0900, Last dose on 01/01/20 at 0900, Routine aspirin 2019-02 2020- No 324mg 324 mg, Unive rs chewable 02-26 Oral, ity of tablet 324 15:00: 08:41 DAILY, [place] mg 00 :12 First dose Medical on [facility] Branch 12/28/19 at 0900, Until Discontinu ed, Routine metoprolol 2019-02 Yes 12.5mg 12.5 mg, U nivers tartrate 02-26 Oral, BID, ity o f (LOPRESSOR) 14:00: First dose [place] half tablet 00 on [facility] Medica l 12.5 mg 12/28/19 Branch at 0800, Until Discontinu ed, Routine heparin 2019-02- No 12U/kg/ 12 Univer s 25,000 02-26 11-20 h Units/kg/h ity of Units/250 12:55: 22:27 [...] Rang e, Dosing and Testing: &nbs p;FOR [place], [facility], AND [facility] ONLY &nbs p; - aPTT < 35: [...] INITIAL BOLUS OR INITIAL INFUSION RATE.
heparin 2019-02- No 60U/kg 3,534 Univer s 1000 -19 11-19 Units (60 ity of unit/mL 12:00: 12:33 Units/kg [place] injection 00 :00 ?58.9 kg), Medi piedad Soln 3,534 IV Push, Branc h Units ONCE, 1 dose, [place] 12/28/19 at 0600, Routine albuterol 2019-02 Yes 2.5mg 2.5 mg, Univ ers (PROVENTIL) 02-26 Inhalation it y of 2.5 mg /3 10:00: , Q4H, [place] mL (0.083 00 First dose Medi piedad %) on [place] Branch nebulizer 12/28/19 solution at 0400, 2.5 mg Until Discontinu ed, Routine ipratropium 2019-02 Yes .5mg 0.5 mg, Uni vers (ATROVENT) 02-26 Inhalation ity of 0.02 % 10:00: , Q4H, [place] nebulizer 00 First dose Medi piedad solution on [place] Branch 0.5 mg 12/28/19 at 0400, Until [...] IV ity of (D50W) 08:37: Push, PRN, [place] injection 06 Starting Medica l 25 mL [place] Branch 12/28/19 at 0237, Until Discontinu ed, ELOY, Blood Glucose < or = 70 mg/dL and patient is unable to swallow or has mental status changes. acetaminoph 2019-02 Yes 650mg 650 mg, Un destiny en 02-26 Oral, ity of (TYLENOL) 08:36: Q6HPRN, [place] tablet 650 38 Starting Medic al mg [...] of 350 05:00: 05:00 s, ONCE, 1 [place] BULK-100 00 :00 dose, Wed Medica l mL) 12/27/19 Branch injection at 2300, 100 mL Routine methylPREDN 2019-02- No 40mg 40 mg, IV Univers ISolone sod 02-26 Piggyback, i ty of succ 02:45: 01:47 ONCE, 1 [place] (SOLU-MEDRO 00 :00 dose, Wed Med ical L (PF)) 12/27/19 Branch injection at 2045, 40 mg STAT metoprolol 2019-02- No [id number] 12.5mg Take 0.5 Univers tartrate 25 02-26 tablets by i ty of mg tablet 00:00: 00:00 mouth 2 [place] 00 :00 (two) Medical times Branch daily. albuterol-i 2019-02 2020- No [id number] 1{puff} Inhale 1 Univers pratropium 02-26 Puff 4 ity of 20-100 00:00: 00:00 (four) [place] mcg/actuati 00 :00 times Medical on inhaler daily. Branch metoprolol 2019-02 2020- No [id number] 12.5mg Take 0.5 Univers tartrate 25 02-26 tablets by i ty of mg tablet 00:00: 00:00 mouth 2 [place] 00 :00 (two) Medical times Branch daily. metoprolol 2019-02 2020- No [id number] 12.5mg Take 0.5 Univers tartrate 25 02-26 tablets by i ty of mg tablet 00:00: 00:00 mouth 2 [place] 00 :00 (two) Medical times Branch daily. aspirin 2019- No 324mg 324 mg, Unive rs chewable 07-26 Oral, ity of tablet 324 22:30: 21:42 ONCE, 1 [place] as mg 00 :00 dose, [facility] Medical 07/27/19 at Branch 1730, Routine No known No Univers medications ity of [facility] Vital Signs Vital Name Observation Time Observation Value Comments Source Systolic blood 2019-12-30 135 mm[Hg] University of pressure 17:24:00 [facility] Diastolic blood 2019-12-30 72 mm[Hg] University o f pressure 17:24:00 [facility] Heart rate 2019-12-30 78 /min University of 17:24:00 [facility] Body temperature 2019-12-30 35.61 Annemarie University of 17:24:00 [facility] Respiratory rate 2019-12-30 18 /min University of 17:24:00 [facility] Oxygen saturation 2019-12-30 91 /min University of in Arterial blood 17:24:00 [facility] by Pulse oximetry [place] Body weight 2019-12-30 57.924 kg pt's actual wt University of 10:03:00 on regular [facility] scale [place] BMI 2019-12-30 20.61 kg/m2 University of 10:03:00 [facility] Body height 2019-12-29 167.6 cm University of 20:18:00 [facility] Systolic blood 2019-12-30 135 mm[Hg] University of pressure 17:24:00 [facility] Diastolic blood 2019-12-30 72 mm[Hg] University o f pressure 17:24:00 [facility] Heart rate 2019-12-30 78 /min University of 17:24:00 [facility] Body temperature 2019-12-30 35.61 Annemarie University of 17:24:00 [facility] Respiratory rate 2019-12-30 18 /min University of 17:24:00 [facility] Oxygen saturation 2019-12-30 91 /min University of in Arterial blood 17:24:00 [place] Medi piedad by Pulse oximetry [place] Body weight 2019-12-30 57.924 kg pt's actual wt University of 10:03:00 on regular [facility] scale [place] BMI 2019-12-30 20.61 kg/m2 University of 10:03:00 [facility] Body height 2019-12-29 167.6 cm University of 20:18:00 [facility] Systolic blood 2019-07-27 120 mm[Hg] University of pressure 21:35:00 [facility] Diastolic blood 2019-07-27 79 mm[Hg] University o f pressure 21:35:00 [facility] Heart rate 2019-07-27 93 /min University of 21:35:00 [facility] Respiratory rate 2019-07-27 12 /min University of 21:35:00 [facility] Oxygen saturation 2019-07-27 95 /min University of in Arterial blood 21:35:00 [place] Medi piedad by Pulse oximetry Branch Body temperature 2019-07-27 37.5 Annemarie University of 21:15:00 [facility] Body height 2019-07-27 167.6 cm University of 21:15:00 [facility] Body weight 2019-07-27 55.792 kg University of 21:15:00 [facility] BMI 2019-07-27 19.85 kg/m2 University of 21:15:00 [facility] Systolic blood 2019-07-27 120 mm[Hg] University of pressure 21:35:00 [facility] Diastolic blood 2019-07-27 79 mm[Hg] University o f pressure 21:35:00 [facility] Heart rate 2019-07-27 93 /min University of 21:35:00 [facility] Respiratory rate 2019-07-27 12 /min University of 21:35:00 [facility] Oxygen saturation 2019-07-27 95 /min University of in Arterial blood 21:35:00 [facility] by Pulse oximetry [place] Body temperature 2019-07-27 37.5 Annemarie University of 21:15:00 [facility] Body height 2019-07-27 167.6 cm University of 21:15:00 [facility] Body weight 2019-07-27 55.792 kg University of 21:15:00 [facility] BMI 2019-07-27 19.85 kg/m2 University of 21:15:00 [facility] Heart rate 2021-07-16 93 /min [facility] 17:12:00 Hospital Systolic blood 2021-07-16 156 mm[Hg] [facility] pressure 16:50:46 Hospital Diastolic blood 2021-07-16 83 mm[Hg] [facility] pressure 16:50:46 Hospital Body temperature 2021-07-16 36.72 Annemarie [facility] 16:50:46 Hospital Respiratory rate 2021-07-16 20 /min [facility] 16:50:46 Hospital Oxygen saturation 2021-07-16 100 /min [facility] in Arterial blood 16:50:46 Hospital by Pulse oximetry Procedures Procedure Date / Time Performing Clinician Source Performed POC GLUCOSE 2021-07-16 16:04:00 Hyun Flynn Ho spital POC GLUCOSE 2021-07-16 13:06:00 Hyun Flynn [facility]ital HEMOGLOBIN A1C 2021-07-16 10:38:00 Hyun Flynn Ho spital POC GLUCOSE 2021-07-16 02:40:00 Hyun Flynn Ho spital POC GLUCOSE 2021-07-15 21:28:00 Hyun Flynn Ho spital POC GLUCOSE 2021-07-15 18:04:00 Hyun Flynn spital LACTIC ACID LEVEL, 2021-07-15 14:19:00 Zina [facility] SEPSIS - NOW AND REPEAT 2X EVERY 3 HOURS POC GLUCOSE 2021-07-15 14:05:00 Hyun Flynn spital LACTIC ACID LEVEL, 2021-07-15 11:47:00 Zina [facility] SEPSIS - NOW AND REPEAT 2X EVERY 3 HOURS ECG 12-LEAD 2021-07-15 09:34:19 Zina [facility] XR CHEST 1 VW PORTABLE 2021-07-15 08:37:27 Zina [facility] COVID-19 ANTI-SPIKE IGG 2021-07-15 08:35:00 Zina [facility] ANTIBODY TITER COVID-19 SEROLOGY 2021-07-15 08:35:00 Zina [facility] PATIENT SURVEILLANCE LACTIC ACID LEVEL, 2021-07-15 08:35:00 Zina [facility] SEPSIS - NOW AND REPEAT 2X EVERY 3 HOURS HC COMPLETE BLD COUNT 2021-07-15 08:35:00 Zina [facility] W/AUTO DIFF COMPREHENSIVE METABOLIC 2021-07-15 08:35:00 Zina [facility] PANEL TROPONIN T 2021-07-15 08:35:00 Zina [facility] ESTIMATED GFR 2021-07-15 08:35:[address] [facility] EXTERNAL PROVIDER 2020-01-17 06:01:00 Doctor Unassigned, No [facility] RECORDS Name Medical Branch POCT GLUCOSE (AUTOMATED) 2019-12-30 15:25:00 Lexy Monae [facility] MAGNESIUM 2019-12-30 10:10:00 Harriet [facility] BASIC METABOLIC PANEL 2019-12-30 10:10:00 Harriet [facility] (NA, K, CL, CO2, Medical Branch GLUCOSE, BUN, CREATININE, CA) CBC WITH DIFF 2019-12-30 10:10[facility]00 [facility] POCT GLUCOSE (AUTOMATED) 2019-12-30 01:50:00 Lexy Monae [facility] POCT GLUCOSE (AUTOMATED) 2019-12-29 23:32:00 Lexy Monae [facility] HB ECG ROUTINE & RHYTHM 2019-12-29 14:11:36 Mariya [facility] POCT GLUCOSE (AUTOMATED) 2019-12-29 14:00:00 Lexy Monae [facility] MAGNESIUM 2019-12-29 10:58:00 Mariya [facility] BASIC METABOLIC PANEL 2019-12-29 10:58:00 Willian Meraz [facility] (NA, K, CL, CO2, Medical Branch GLUCOSE, BUN, CREATININE, CA) ACTIVATED PARTIAL 2019-12-29 10:58:00 Mariya [facility] EXTERNAL PROVIDER 2019-12-29 06:01:00 Doctor Unassigned, No [facility] RECORDS Name Medical Branch POCT GLUCOSE (AUTOMATED) 2019-12-29 04:16:00 Lexy Monae [facility] ACTIVATED PARTIAL 2019-12-29 00:06:00 Mariya [facility] TROPONIN I 2019-12-28 19:46:00 Jesus Paz [facility] LIPID PANEL 2019-12-28 19:46:00 Mariya [facility] ([id number])(TOTAL Medical Branch CHOLESTEROL, TRIGLYCERIDES, HDL) ECHO ROUTINE W/DOPPLER 2019-12-28 16:44:30 Willian Meraz [facility] COLOR [facility] HB ECG ROUTINE & RHYTHM 2019-12-28 13:42:07 Mariya [facility] [place] [facility] PROTHROMBIN TIME / INR 2019-12-28 12:24:00 Mariya [facility] ACTIVATED PARTIAL 2019-12-28 12:24:00 Mariya [facility] THRMPLAS CATHY [facility] TROPONIN I 2019-12-28 10:08:00 Mariya [facility] CT CHEST PULMONARY 2019-12-28 04:44:55 Minna Mike [facility] ANGIOGRAM Medical Branch XR CHEST 1 VW 2019-12-28 02:07:34 Minna Mike [facility] COVID-19 (ID NOW RAPID 2019-12-28 01:50:00 Minna Mike [facility] TESTING) Medical Branch HB ECG ROUTINE & RHYTHM 2019-12-28 01:49:31 Minna Mike [facility] TROPONIN I 2019-12-28 01:49:00 Minna Mike [facility] THYROID STIMULATING 2019-12-28 01:49:00 Willian Meraz [facility] HORMONE [facility] Branch BASIC METABOLIC PANEL 2019-12-28 01:49:00 Minna Mike [facility] (NA, K, CL, CO2, Medical Branch GLUCOSE, BUN, CREATININE, CA) COMP. METABOLIC PANEL 2019-12-28 01:49:00 [facility] ([id number]) [facility] CBC WITH DIFF 2019-12-28 01:49:00 Minna [facility] GLYCOSYLATED HEMOGLOBIN 2019-12-28 01:49:00 [facility] N-TERMINAL PRO-BNP 2019-12-28 01:49:00 Willian Meraz [facility] XR CHEST 1 VW 2019-07-27 22:14:30 Soila Villar [facility] COVID-19 (ID NOW RAPID 2019-07-27 21:43:00 Soila Villar [facility] TESTING) [facility] TROPONIN I 2019-07-27 21:38:00 Soila Villar [facility] HEPATIC FUNCTION PANEL 2019-07-27 21:38:00 Soila Villar [facility] ([id number]) (ALB,T.PRO,BILI [facility] T,BU/BC,ALT,AST,ALK PHOS) BASIC METABOLIC PANEL 2019-07-27 21:38:00 [facility] (NA, K, CL, CO2, Medical Branch GLUCOSE, BUN, CREATININE, CA) CBC WITH DIFFERENTIAL 2019-07-27 21:38:00 Soila Villar [facility] PROTHROMBIN TIME / INR 2019-07-27 21:38:00 Soila Villar [facility] N-TERMINAL PRO-BNP 2019-07-27 21:38:00 Soila Villar [facility] EKG-12 LEAD 2019-07-27 21:21:22 Soila Villar [facility] NOTICE OF PRIVACY 2019-07-27 20:58:21 Doctor Unassigned, No [facility] PRACTICES Name [facility] [place] Plan of Care Planned Activity Planned Date Details Comments Source Future Scheduled 2021-10-11 HEPATITIS B VACCINES [facility] Test 10:23:54 (1 of 3 - 3-dose series) [code = HEPATITIS B VACCINES (1 of 3 - 3-dose series)] Future Scheduled 2021-10-11 COVID-19 VACCINE (#1) [facility] Test 10:23:54 [code = COVID-19 VACCINE (#1)] Future Scheduled 2021-10-11 65+ [facility]OCOCCAL [facility] 10:23:54 VACCINE (1 - PCV) [code = 65+ PNEUMOCOCCAL VACCINE (1 - PCV)] Future Scheduled 2021-10-11 Hepatitis C screening [facility] Test 10:23:54 (procedure) [code = 952999237] Future Scheduled 2021-10-11 Screening for [facility] Test 10:23:54 malignant neoplasm of cervix (procedure) [code = 454737629] Future Scheduled 2021-10-11 BREAST CANCER [facility] Test 10:23:54 SCREENING [code = BREAST CANCER SCREENING] Future Scheduled 2021-10-11 COLONOSCOPY SCREENING [facility] Test 10:23:54 [code = COLONOSCOPY SCREENING] Future Scheduled 2021-10-11 SHINGLES VACCINES (1 [facility] Test 10:23:54 of 2) [code = SHINGLES VACCINES (1 of 2)] Future Scheduled 2021-10-11 INFLUENZA VACCINE [facility] Test 10:23:54 [code = INFLUENZA VACCINE] Future Scheduled 2021-10-11 HEPATITIS B VACCINES [facility] Test 10:23:54 (1 of 3 - 3-dose series) [code = HEPATITIS B VACCINES (1 of 3 - 3-dose series)] Future Scheduled 2021-10-11 COVID-19 VACCINE (#1) [facility] Test 10:23:54 [code = COVID-19 VACCINE (#1)] Future Scheduled 2021-10-11 65+ [facility]OCOCCAL [facility] Test 10:23:54 VACCINE (1 - PCV) [code = 65+ PNEUMOCOCCAL VACCINE (1 - PCV)] Future Scheduled 2021-10-11 Hepatitis C screening [facility] Test 10:23:54 (procedure) [code = 292314973] Future Scheduled 2021-10-11 Screening for [facility] Test 10:23:54 malignant neoplasm of cervix (procedure) [code = 350982900] Future Scheduled 2021-10-11 BREAST CANCER [facility] Test 10:23:54 SCREENING [code = BREAST CANCER SCREENING] Future Scheduled 2021-10-11 COLONOSCOPY SCREENING [facility] Test 10:23:54 [code = COLONOSCOPY SCREENING] Future Scheduled 2021-10-11 SHINGLES VACCINES (1 [facility] Test 10:23:54 of 2) [code = SHINGLES VACCINES (1 of 2)] Future Scheduled 2021-10-11 INFLUENZA VACCINE Method [facility] Test 10:23:54 [code = INFLUENZA VACCINE] Encounters Start End Encounter Admission Attending Care Care Encounter Source Date/Time Date/Time Type Type Clinicians Facility Department ID 2021-12-02 2021-12-02 Outpatient MHIE MHIE [id number] [facility] 08:15:00 08:15:00 00 natasha Day 2021-12-02 2021-12-02 Outpatient [facility] [id number] Memoria 08:15:00 08:15:00 00 natasha [place] 2021-07-15 2021-07-16 [facility] Colette Izaguirre 1.2.840.1 [id number] Methodi 01:59:00 13:57:00 Encounter Hyun Flynn 65623.1.[address] 3.430.2.7 Hospit a .3.065110 l .8 2021-07-15 2021-07-16 [facility] AnastasiiaColette 1.2.840.1 [id number] Methodi 01:59:00 13:57:00 Encounter Hyun Flynn 07451.1.[address] 3.430.2.7 Hospit a .3.680584 l .8 2021-07-15 2021-07-15 Travel 1.2.840.1 1.2.049.687 [id number] Methodi 00:00:00 00:00:[address] 3.430.2.7 0.2.7.3.698 Ho spita .3.750489 084.8 l .8 2021-07-15 2021-07-15 Travel 1.2.840.1 1.2.174.866 [id number] Methodi 00:00:00 00:00:[address] 3.430.2.7 0.2.7.3.698 Ho spita .3.871949 084.8 l .8 2020-01-17 2020-01-17 Orders Doctor DIONISIO 1.2.840.114 [id number] Univers 00:00:00 00:00:00 Only Unassigned, ASHLEY 350.1.13.10 ity of [place] [facility] 4.2.7.2.686 Nabil as [id number] [place] [address] [place] 2020-01-17 2020-01-17 Orders Doctor DIONISIO 1.2.840.114 [id number] 00:00:00 00:00:00 Only Unassigned, ASHLEY 350.1.13.10 [place] [facility] 4.2.7.2.686 [id number] [facility] 2020-01-01 2020-01-01 Transition Ree Barkley 1.2.840.114 [id number] Univers 00:00:00 00:00:00 of Care Sarah Carvalho 350.1.13.10 ity of [place] 4.2.7.2.686 Hira s [id number] [facility] 403 [place] 2020-01-01 2020-01-01 Transition Ree Barkley 1.2.840.114 [id number] 00:00:00 00:00:00 of Care Sarah Carvalho 350.1.13.10 [place] 4.2.7.2.686 [id number] 403 2019-12-31 2019-12-31 [facility] [address] 5Q-20 Univers 16:00:00 16:00:[id number] [facility] 2019-12-27 2019-12-30 [facility] Minna Olivas 1.2.840. 114 [id number] Univers 18:54:00 14:13:00 Encounter Lexy Monae 350.1.13.10 ity of [facility] 4.2.7.2.[address] [place] [address] [id number] [facility] 090 [place] 2019-12-27 2019-12-30 [facility] 1.2.840. 114 [id number] 18:54:00 14:13:00 Encounter Lexy Monae 350.1.13.10 [facility] 4.2.7.2.686 [id number] [facility] 2019-12-27 2019-12-27 Emergency X [facility] ERT [id number] Univers 18:54:00 18:54:[address] [facility] 2019-07-27 2019-07-27 Emergency Aurea, [facility] 1.2.840.114 [id number] [facility] 16:26:45 18:20:00 Soila Espin[facility].13.10 [facility] 4.2.7.2.686 [facility] [id number] [address] 2019-07-27 2019-07-27 Emergency X [facility] ERT [id number] Univers 16:26:45 18:20:00 SOILA [facility] 2019-07-27 2019-07-27 Emergency [facility] 1.2.840.114 [id number] 16:26:45 18:20:00 Soila Espinosa 350.1.13.10 [place] 4.2.7.2.686 [place] [id number] 084 Results Test Description Test Time Test Comments Results Result Comments Source LACTIC ACID, PLASMA 2021-09-16 11:30:59 Test Item Value Reference Range Interpretation Comme nts LACTIC ACID, PLASMA (test code = 2056) 12.0 MG/DL 4.5-19.8 [id number] 03:42:38 Test Item Value Reference Range Interpretation Comments MAGNESIUM (test code = 2226) 1.9 MG/DL 1.6-2.6 IRON, [id number] 03:42:00 Test Item Value Reference Range Interpretation Comments IRON, SERUM (test 21 UG/DL 37-145 L UNLESS OT HERWISE code = 2222) INDICATED, ALL TESTING PER[facility]MED [facility]. [address] [place] [address] DIRECTOR: TITA PARIKH M.D. CLIA NUMBER [id number] CAP ACCREDITATION N O. [id number] COMPREHENSIVE METABOLIC [id number] 03:42:00 Test Item Value Reference Range Interpretation Comments GLUCOSE (test code = 193 MG/DL 70-99 H 2216) BUN (test code = 14 MG/DL -2207) CREATININE (test 0.68 MG/DL 0.60-1.30 code = 2214) eGFR (2020 CKD-EPI) 97 ML/MIN/1.73 >60 (test code = 11017) CALC BUN/CREAT (test 21 RATIO 6-28 code = 2235) SODIUM (test code = 140 MEQ/L 382-640 4457) POTASSIUM (test code 4.4 MEQ/L 3.5-5.4 = 2227) CHLORIDE (test code 102 MEQ/L 95-107 = 2214) CARBON DIOXIDE (test 27 MEQ/L 19-31 code = 2205) CALCIUM (test code = 9.0 MG/DL 8.5-10.5 2208) PROTEIN, TOTAL (test 5.9 G/DL 6.1-8.3 L code = 2228) ALBUMIN (test code = 3.8 G/DL 3.5-5.2 2200) CALC GLOBULIN (test 2.1 G/DL 1.9-3.7 code = 2239) CALC A/G RATIO (test 1.8 RATIO 1.0-2.6 code = 2233) BILIRUBIN, TOTAL <0.2 MG/DL See_Comment [Automated message] (test code = 2206) The [employer] which generated this result transmit shikha reference range : <=1.2. The refe rence range was not u sed to interpret th is result as normal/abnormal . ALKALINE PHOSPHATASE 61 U/L 40-140 (test code = 2203) AST (test code = 24 U/L 9-40 2217) ALT (test code = 25 U/L 5-40 2218) HEMOGLOBIN [id number] 03:08:42 Test Item Value Reference Range Interpretation Comments HEMOGLOBIN A1c (test 8.0 % 4.2-5.6 H AMERIC AN DIABETES code = 42209) ASSOCIATION IDELINES FOR HGB A1C: PREDIABETES/INC REASED [...] LABORATORY C ONSULTATION. CBC W/AUTO DIFF WITH [id number] 01:59:57 Test Item Value Reference Range Interpretation [...] RBCS 0.00 K/UL 0.00-0.11 (test code = 73059) LACTIC ACID, [id number] 14:02:14 Test Item Value Reference Range Interpretation Comments LACTIC ACID, PLASMA (test code = 15.2 MG/DL 4.5-19.8 2056) COMPREHENSIVE METABOLIC [id number] 04:08:01 Test Item Value Reference Range Interpretation Comments GLUCOSE (test code = 104 MG/DL 70-99 H 2216) BUN (test code = 17 MG/DL 8-23 2207) CREATININE (test 0.73 MG/DL 0.60-1.30 code = 221) eGFR (2020 CKD-EPI) 91 >60 (test code = 73333) ML/MIN/1.73 CALC BUN/CREAT (test 23 RATIO 6-28 code = 223) SODIUM (test code = 141 MEQ/L 161-554 9574) POTASSIUM (test code 4.7 MEQ/L 3.5-5.4 = 2227) CHLORIDE (test code 100 MEQ/L 95-107 = 2214) CARBON DIOXIDE (test 29 MEQ/L 19-31 code = 2205) CALCIUM (test code = 9.9 MG/DL 8.5-10.5 2208) PROTEIN, TOTAL (test 6.5 G/DL 6.1-8.3 code = 2228) ALBUMIN (test code = 4.4 G/DL 3.5-5.2 2200) CALC GLOBULIN (test 2.1 G/DL 1.9-3.7 code = 2240) CALC A/G RATIO (test 2.1 RATIO 1.0-2.6 code = 223) BILIRUBIN, TOTAL 0.2 MG/DL See_Comment [Automated message] (test code = 220) The syste m which generated this result transmitted ref erence range: <=1.2. T he reference range was not used to int erpret this result as normal/abnormal . ALKALINE PHOSPHATASE 65 U/L 40-140 (test code = 2203) AST (test code = 26 U/L 9-40 2217) ALT (test code = 25 U/L 5-40 UNLESS OTH ERWISE 2218) INDICATED, ALL TESTING PERFORM ED ATCLINICAL PATH OLOGY LABORATOR[facility]. [address] [facility] [place] [address] CHRISTAL GONSALVES DIRECTOR: Noelle VALLADARESIA NUMBER [id number] CAP ACCREDITATION N O. [id number] POC [id number] 16:05:00 Test Item Value Reference Range Interpretation Comments POC glucose (test code 354 mg/dL 65-99 HH Opera tor Name: Celeste = [id number]) NwachukwuDevice ID: [id number] Lab Interpretation Abnormal (test code = 42650-8) [facility] [id number] 16:05:00 Test Item Value Reference Range Interpretation Comments POC glucose (test code 354 mg/dL 65-99 HH Operramona mojica Name: Celeste = 87567-3) NwachukwuDevice ID: [id number] Lab Interpretation Abnormal (test code = 23190-6) [place] [address] [id number] 01:04:59 Test Item Value Reference Range Interpretation Comments Ventricular rate (test code = 253) Atrial rate (test code = 255) NM interval (test code = 266) QRSD interval (test code = 260) QT interval (test code = 264) QTC interval (test code = 265) P axis 1 (test code = 267) QRS axis 1 (test code = 268) T wave axis (test code = 270) EKG impression (test Normal sinus code = 273) rhythm-Normal ECG-No previous ECGs available-Electronica lly Signed By Andrey Sosa MD ([id number]) on 07/15/2021 8:04:56 PM [place] [address] [id number] 01:04:59 Test Item Value Reference Range Interpretation Comments Ventricular rate (test code = 253) Atrial rate (test code = 255) NM interval (test code = 266) QRSD interval (test code = 260) QT interval (test code = 264) QTC interval (test code = 265) P axis 1 (test code = 267) QRS axis 1 (test code = 268) T wave axis (test code = 270) EKG impression (test Normal sinus code = 273) rhythm-Normal ECG-No previous ECGs available-Electronica lly Signed By Andrey Sosa MD ([id number]) on 07/15/2021 8:04:56 PM [facility], [id number] 14:02:59 Test Item Value Reference Range Interpretation Comments LACTIC ACID, 26.7 MG/DL 4.5-19.8 H UNLESS OTHERWI SE PLASMA (test code INDICATED, ALL TESTING = 2056) PERFORMED ATCLI NICAL PATHOLOGY [facility] [address] [place] [address] CH[employer]STAL GONSAL[employer] DIRECTOR: TITA PARIKH M.D. CLIA NUMBER [id number] CAP ACCREDITATION N O. [id number] LACTIC ACID, [id number] 10:45:50 Test Item Value Reference Range Interpretation Comments LACTIC ACID, 27.1 MG/DL 4.5-19.8 H UNLESS OTHERWI SE PLASMA (test code INDICATED, ALL TESTING = 2056) PERFORMED ATCLI NICAL PATHOLOGY [facility] [employer], [facility]. [address] [place] [address] CHRISTAL GONSALVES DIRECTOR: TITA PARIKH M.D. CLIA NUMBER [id number] CAP ACCREDITATION N O. [id number] HEMOGLOBIN [id number] 05:02:08 Test Item Value Reference Range Interpretation Comments HEMOGLOBIN A1c (test 8.3 % 4.2-5.6 H AMERIC AN DIABETES code = 97495) ASSOCIATION IDELINES FOR HGB A1C: PREDIABETES/INC REASED [...] TESTING OR LABORATORY C ONSULTATION. COMPREHENSIVE METABOLIC [id number] 03:45:06 Test Item Value Reference Range Interpretation Comments GLUCOSE (test code = 397 MG/DL 70-99 H 2216) BUN (test code = 21 MG/DL 8-23 2207) CREATININE (test 0.75 MG/DL 0.60-1.30 code = 2214) eGFR (2020 CKD-EPI) 88 ML/MIN/1.73 >60 (test code = 57972) CALC BUN/CREAT (test 28 RATIO 6-28 code = 2235) SODIUM (test code = 140 MEQ/L 487-040 6592) POTASSIUM (test code 4.2 MEQ/L 3.5-5.4 = 8) CHLORIDE (test code 95 MEQ/L 95-107 = 5) CARBON DIOXIDE (test 32 MEQ/L 19-31 H code = 2206) CALCIUM (test code = 10.0 MG/DL 8.5-10.5 2208) PROTEIN, TOTAL (test 6.7 G/DL 6.1-8.3 code = 222) ALBUMIN (test [...] code = 25 U/L 5-40 2218) LIPID [id number] 03:45:06 Test Item Value Reference Range Interpretation [...] LDL/HDL 0.93 RATIO <3.22 (test code = 2237) LACTIC ACID, [id number] 15:11:52 Test Item Value Reference Range Interpretation Comments LACTIC ACID, 11.7 MG/DL 4.5-19.8 UNLESS OTHERWI SE PLASMA (test code INDICATED, ALL TESTING = 2056) PERFORMED ATCLI NICAL PATHOLOGY [facility] [facility] [address] [facility] [place] [address] [facility] DIRECTOR: TITA PARIKH M.D. CLIA NUMBER [id number] CAP ACCREDITATION N O. [id number] HEMOGLOBIN [id number] 03:44:50 Test Item Value Reference Range Interpretation Comments HEMOGLOBIN A1c (test 7.5 % 4.2-5.6 H AMERIC AN DIABETES code = 26907) ASSOCIATION IDELINES FOR HGB A1C: PREDIABETES/INC REASED [...] TESTING OR LABORATORY C ONSULTATION. COMPREHENSIVE METABOLIC [id number] 03:25:55 Test Item Value Reference Range Interpretation Comments GLUCOSE (test code = 159 MG/DL 70-99 H 2216) BUN (test code = 17 MG/DL 8-23 2207) CREATININE (test 0.56 MG/DL 0.60-1.30 L code = 2214) eGFR (2020 CKD-EPI) 101 >60 (test code = 37696) ML/MIN/1.73 CALC BUN/CREAT (test 30 RATIO 6-28 H code = 2235) SODIUM (test code = 141 MEQ/L 364-037 1439) POTASSIUM (test code 4.4 MEQ/L 3.5-5.4 = [...] [Automated message] (test code = 2207) The [employer] which generated this result transmit shikha reference range : <=1.2. The refe rence range was not u sed to interpret th is result as normal/abnormal . ALKALINE PHOSPHATASE 60 U/L 40-140 (test code = 2203) AST (test code = 20 U/L 9-40 2217) ALT (test code = 21 U/L 5-40 2218) LACTIC ACID, [id number] 15:10:19 Test Item Value Reference Range Interpretation Comments LACTIC ACID, 34.5 MG/DL 4.5-19.8 H UNLESS OTHERWI SE PLASMA (test code INDICATED, ALL TESTING = 2056) PERFORMED [facility] [employer]. [address] [place] [address] CHRISTAL GONSALVES DIRECTOR: TITA PARIKH M.D. CLIA NUMBER [id number] [place]EDITATION [place] O. [id number] LACTIC ACID, [id number] 13:30:20 Test Item Value Reference Range Interpretation Comments LACTIC ACID, 18.5 MG/DL 4.5-19.8 UNLESS OTHERWI SE PLASMA (test code INDICATED, ALL TESTING = 2056) PERFORMED [facility] [employer]. [address] [place] [address] CHRISTAL GONSALVES DIRECTOR: TITA PARIKH M.D. CLIA NUMBER [id number] CAP ACCREDITATION N O. [id number] TSH, THIRD [id number] 06:41:17 Test Item Value Reference Range Interpretation Comments TSH, THIRD GENERATION (test code 1.300 UIU/ML 0.400-4.100 = 2821) LIPID [id number] 04:18:20 Test Item Value Reference Range Interpretation [...] MOREINFORMATION , SEE CLIENT ANNOUNCE MENT AT [email or web address] LDL/HDL 0.85 RATIO <3.22 (test code = 2238) COMPREHENSIVE METABOLIC [id number] 04:18:20 Test Item Value Reference Range Interpretation Comments GLUCOSE (test code = 93 MG/DL 70-99 2216) BUN (test code = 15 MG/DL 8-23 2207) CREATININE (test 0.72 MG/DL 0.60-1.30 code = 221) eGFR (2020 CKD-EPI) 93 ML/MIN/1.73 >60 (test code = 99301) CALC BUN/CREAT (test 21 RATIO 6-28 code = 2235) SODIUM (test code = 143 MEQ/L 718-362 7403) POTASSIUM (test code 3.8 MEQ/L 3.5-5.4 = 2227) CHLORIDE (test code 98 MEQ/L 95-107 = 2214) CARBON DIOXIDE (test 29 MEQ/L 19-31 code = 220) CALCIUM (test code = 9.8 MG/DL 8.5-10.5 2208) PROTEIN, TOTAL (test 6.6 G/DL 6.1-8.3 code = 222) ALBUMIN (test code = 4.2 G/DL 3.5-5.2 [...] PHOSPHATASE 61 U/L 40-140 (test code = 2203) AST (test code = 20 U/L 9-40 2217) ALT (test code = 36 U/L 5-40 2218) HEMOGLOBIN [id number] 03:31:34 Test Item Value Reference Range Interpretation Comments HEMOGLOBIN A1c (test 7.8 % 4.2-5.6 H AMERIC AN DIABETES code = 83018) ASSOCIATION IDELINES FOR HGB A1C: PREDIABETES/INC REASED [...] 204 mg/dL 70-110 H Notifi ed Provider [id number]) Lab Interpretation (test Abnormal code = 89007-0) [facility] METABOLIC PANEL (NA, K, CL, CO2, GLUCOSE, BUN, CREATININE, CA)2019-12-30 10:50:00 Test Item Value Reference Range Interpretation Comments NA (test code = 137 mmol/L 135-145 1726134860) K (test code = 4.1 mmol/L 3.5-5 2161959999) CL (test code = 103 mmol/L 98-108 8864738429) CO2 TOTAL (test code = 29 mmol/L 23-31 1564536123) AGAP (test code = 2-16 5785685597) BUN (test code = 21 mg/dL 7-23 4929600581) GLUCOSE (test code = 97 mg/dL 70-110 1820057616) CREATININE (test code 0.67 mg/dL 0.5-1.04 = 7666653762) CALCIUM (test code = 9.0 mg/dL 8.6-10.6 5426221800) eGFR Calculation mL/min/1.73m2 (Non-) (test code = 6451473472) eGFR Calculation mL/min/1.73m2 () (test code = 4689546736) JOSHUA (test code = JOSHUA) Association of [...] or urine or abnormalities in imaging tests). [id number] Test Item Value Reference Range Interpretation Comments MAGNESIUM (test code = 5439689378) 2.2 mg/dL 1.7-2.4 Lab Interpretation (test code = Normal 11865-9) [facility] WITH [id number] 10:26:00 Test Item Value Reference Range Interpretation Comments WBC (test code = See_Comment [Automated 1303-2) message] The sy stem which generated this result transmitted reference range : 4.30 - 11.10 10*3/?L. The reference range was not used to interpret this result as normal/abnormal . RBC (test code = See_Comment [Automated 383-4) message] The sy stem which generated this [...] RDW-SD (test code = 44.0 fL 39-49.9 75491-8) RDW-CV (test code = 12.6 % 12-15.5 788-0) PLT (test code = See_Comment [Automated 777-3) message] The sy stem which generated this result transmitted reference range : 166 - 358 10*3/ ?L. The reference r ramona was not used to interpret this result as normal/abnormal . MPV (test code = 9.7 fL 9.5-12.9 43502-7) NRBC/100 WBC (test See_Comment [Automat ed code = 1960377114) message] The system which generated this result transmitted reference range : 0.0 - 10.0 /100 WBCs. The refer ence range was not u sed to interpret th is result as normal/abnormal . NRBC x10^3 (test code <0.01 See_Comment [Auto mated = 7522317038) message] The s ystem which generated this result transmitted reference range : 10*3/?L. The reference range was not used to interpret this result as normal/abnormal . GRAN MAT (NEUT) % 57.7 % (test code = 770-8) IMM GRAN % (test code 0.20 % = 0921136852) LYMPH % (test code = 31.8 % 736-9) MONO % (test code = 8.1 % 5905-5) EOS % (test code = 1.9 % 713-8) BASO % (test code = 0.3 % 706-2) GRAN MAT x10^3(ANC) 5.12 10*3/uL 1.88-7.09 (test code = 5516121650) IMM GRAN x10^3 (test <0.03 0-0.06 code = 5867066499) LYMPH x10^3 (test code 2.82 10*3/uL 1.32-3.29 = 731-0) MONO x10^3 (test code 0.72 10*3/uL 0.33-0.92 = 742-7) EOS x10^3 (test code = 0.17 10*3/uL 0.03-0.39 711-2) BASO x10^3 (test code 0.03 10*3/uL 0.01-0.07 = 704-7) Lab Interpretation Abnormal (test code = 91114-4) [facility] GLUCOSE (AUTOMATED)2019-12-30 01:52:00 Test Item Value Reference Range Interpretation Comments POCT GLU (test code = 7941149914) 199 mg/dL 70-110 H Lab Interpretation (test code = Abnormal 06074-7) [facility] GLUCOSE (AUTOMATED)2019-12-29 23:34:00 Test Item Value Reference Range Interpretation Comments POCT GLU (test code = 9612999083) 120 mg/dL 70-110 H Lab Interpretation (test code = Abnormal 18960-9) [facility] GLUCOSE (AUTOMATED)2019-12-29 14:02:00 Test Item Value Reference Range Interpretation Comments POCT GLU (test code = 1444491738) 99 mg/dL 70-110 Lab Interpretation (test code = Normal 37850-5) [facility] Metabolic Panel (NA, K, CL, CO2, GLUCOSE, BUN, CREATININE, CA)2019-12-29 11:40:00 Test Item Value Reference Range Interpretation Comments NA (test code = 139 mmol/L 135-145 0324375677) K (test code = 4.2 mmol/L 3.5-5 Slight [id number]) hemolysis CL (test code = 104 mmol/L 98-108 5314542519) CO2 TOTAL (test code 30 mmol/L 23-31 = 6726611184) AGAP (test code = 2-16 3025296292) BUN (test code = 18 mg/dL 7-23 Slight 7042575555) hemolysis GLUCOSE (test code = 116 mg/dL 70-110 H 3853042423) CREATININE (test code 0.61 mg/dL 0.5-1.04 = 8052105516) CALCIUM (test code = 8.9 mg/dL 8.6-10.6 3291957692) eGFR Calculation mL/min/1.73m2 (Non-) (test code = 3596432218) eGFR Calculation mL/min/1.73m2 () (test code = 1149993310) JOSHUA (test code = JOSHUA) Association of [...] tests). Lab Interpretation Abnormal (test code = 41139-2) [id number] Test Item Value Reference Range Interpretation Comments MAGNESIUM (test code = 7136455384) 2.2 mg/dL 1.7-2.4 Lab Interpretation (test code = Normal 18207-1) [facility]2019-12-29 11:21:00 Test Item Value Reference Range Interpretation Comments APTT Patient (test code See_Comment HH [Au tomated message] = 3173-2) The system [employer] generated this result transmitted ref erence range: 26 - 36 Seconds. The reference range was not used to int erpret this result as normal/abnormal . Lab Interpretation (test Abnormal code = 87090-3) [facility] 04:19:00 Test Item Value Reference Range Interpretation Comments POCT GLU (test code = 5813681555) 115 mg/dL 70-110 H Lab Interpretation (test code = Abnormal 95289-9) [facility] (Total Cholesterol, Triglycerides, HDL) - [id number] 03:03:00 Test Item Value Reference Range Interpretation Comments CHOL (test code = 164 mg/dL 120-200 1344458756) HDL (test code = 61 mg/dL >50 5181929104) HDLC RATIO (test code = See_Comment [Au tomated message] 8363268537) The system [employer] generated this result transmit shikha reference range : <=4.5. The refe rence range was not u sed to interpret th is result as normal/abnormal . TRIG (test code = 63 mg/dL 30-170 1519005938) LDL CHOL (test code = 90 mg/dL See_Comment [Auto mated message] 23950-9) The system [employer] generated this result transmit shikha reference range : <=160. The refe rence range was not u sed to interpret th is result as normal/abnormal . VLDL (test code = 13 mg/dL 5-60 2362739151) Lab Interpretation (test Normal code = 80497-2) [facility]2019[facility]12[facility]29 00:36:00 Test Item Value Reference Range Interpretation Comments APTT Patient (test code See_Comment H [Au tomated message] = 3173-2) The system [employer] generated this result transmitted ref erence range: 26 - 36 Seconds. The reference range was not used to int erpret this result as normal/abnormal . Lab Interpretation (test Abnormal code = 06633-7) [facility] [id number] 21:42:00 Test Item Value Reference Range Interpretation Comments TROPONIN I (test 0.081 ng/mL See_Comment H [Automated code = 0746259039) message] The system which generated this result [...] ? Lab Interpretation Abnormal (test code = 79955-4) [facility]PT[facility] / [id number] 12:39:00 Test Item Value Reference Range Interpretation Comments PROTIME PATIENT (test See_Comment [Auto mated message] code = 5964-2) The system [employer] generated this result transmitted ref erence range: 10.1 - 1 2.6 Seconds. The re ference range was not u sed to interpret this result as normal/abnor mal. INR (test code = 6301-6) Nor mal INR <1.1; Warfarin Therap eutic range 2.0 to 3. 0 or 2.5 to 3.5, dep ending upon the indica tions. Lab Interpretation (test Normal code = 38221-6) [facility] 12:39:00 Test Item Value Reference Range Interpretation Comments APTT Patient (test code = See_Comment [ Automated message] 3173-2) The system [employer] generated this result transmitted ref erence range: 26 - 36 Seconds. The re ference range was not u sed to interpret this result as normal/abnor mal. Lab Interpretation (test Normal code = 02865-7) [facility] [id number] 11:11:00 Test Item Value Reference Range Interpretation Comments TROPONIN I (test 0.148 ng/mL See_Comment H [Automated code = 8912689869) message] The system which generated this result [...] ? Lab Interpretation Abnormal (test code = 60158-5) [facility]1C)2019-12-28 10:57:00 Test Item Value Reference Range Interpretation Comments HGB A1C (test code = 5.8 % 4-6 4548-4) JOSHUA (test code = JOSHUA) %A1C (NGSP) Interpretation (ADA)4.8-5.6 ? ? Normal or (Non-Diabetic Range)5.7-6.4 ? ? Increased Risk (Pre-Diabetic)>6.5 ?Diabetes Indicated Lab Interpretation Normal (test code = 28270-6) [facility]ormone (TSH)2019-12-28 10:22:00 Test Item Value Reference Range Interpretation Comments TSH (test code = See_Comment Biotin has been 6257219156) reported to cau se a negative bias, interpret resul ts relative to pat ient's use of biotin. [Automated mess age] The system [employer] generated this result transmitted ref erence range: 0.45 - 4 .70 mIU/L. The refe rence range was not u sed to interpret this result as normal/abnor mal. Lab Interpretation (test Normal code = 77609-9) [facility] [id number] 10:22:00 Test Item Value Reference Range Interpretation Comments NT-proBNP (test code 636 pg/mL See_Comment H [Autom ated = 7167254792) message] The system which generated this result transmitted reference range : <=125. The reference range was not used to interpret this result as normal/abnormal . JOSHUA (test code = JOSHUA) Biotin has been reported to cause a negative bias, interpret results relative to patient's use of biotin. Lab Interpretation Abnormal (test code = 45688-3) [facility] [id number] 05:35:31 No acute pulmonary embolism through the [...] this study and agree with theabove report. [facility] 1 [id number] 03:07:42 No acute cardiopulmonary abnormality. Preliminary Report [...] reviewed this study and agree with theabove report.[facility] [id number] 02:26:00 Test Item Value Reference Range Interpretation Comments TROPONIN I (test 0.048 ng/mL See_Comment H [Automated code = 2491474969) message] The system which generated this result [...] ? Lab Interpretation Abnormal (test code = 08255-1) [facility] (ID NOW RAPID TESTING)2019-12-28 02:22:00 Test Item Value Reference Range Interpretation Comments SARS-CoV-2 Rapid ID NOW Not Detected Not Detected (test code = 63250-8) JOSHUA (test code = JOSHUA) ID NOW COVID-19 Assay is an isothermal nucleic acid amplification test intended for the qualitative detection of nucleic acid from SARS-CoV-2 viral RNA in nasopharyngeal (MINE SURVEYOR) specimens. It is used under Emergency Use [...] indicated. Lab Interpretation Normal (test code = 12494-9) [facility]. METABOLIC PANEL (86335)2019-12-28 02:16:00 Test Item Value Reference Range Interpretation Comments NA (test code = 137 mmol/L 135-145 7136059160) K (test code = 3.8 mmol/L 3.5-5 0849458868) CL (test code = 101 mmol/L 98-108 0752819211) CO2 TOTAL (test code = 31 mmol/L 23-31 8924110669) AGAP (test code = 2-16 3339023261) BUN (test code = 18 mg/dL 7-23 4508678500) GLUCOSE (test code = 145 mg/dL 70-110 H 7548080448) CREATININE (test code = 0.55 mg/dL 0.5-1.04 3262865745) TOTAL BILI (test code = 0.4 mg/dL 0.1-1.4 8351042430) CALCIUM (test code = 8.8 mg/dL 8.6-10.6 7517372217) T PROTEIN (test code = 6.7 g/dL 6.3-8.2 2886784237) ALBUMIN (test code = 4.1 g/dL 3.5-5 4079357383) ALK PHOS (test code = 72 U/L 34-122 7606061951) ALTv (test code = 40 U/L 5-35 H 1742-6) AST(SGOT) (test code = 46 U/L 13-40 H 5320148126) eGFR Calculation mL/min/1.73m2 (Non-) (test code = 3176978092) eGFR Calculation mL/min/1.73m2 () (test code = 3241952691) JOSHUA (test code = JOSHUA) Association of [...] tests). Lab Interpretation Abnormal (test code = 74076-9) [facility] METABOLIC PANEL (NA, K, CL, CO2, GLUCOSE, BUN, CREATININE, CA)2019-12-28 02:16:00 Test Item Value Reference Range Interpretation Comments NA (test code = 137 mmol/L 135-145 2820455430) K (test code = 3.8 mmol/L 3.5-5 2377787805) CL (test code = 101 mmol/L 98-108 5004450958) CO2 TOTAL (test code = 31 mmol/L 23-31 5459615793) AGAP (test code = 2-16 1353408362) BUN (test code = 18 mg/dL 7-23 1770653019) GLUCOSE (test code = 145 mg/dL 70-110 H 5420497173) CREATININE (test code = 0.55 mg/dL 0.5-1.04 6933296668) CALCIUM (test code = 8.8 mg/dL 8.6-10.6 7151832209) eGFR Calculation mL/min/1.73m2 (Non-) (test code = 8222511214) eGFR Calculation mL/min/1.73m2 () (test code = 3016399481) JOSHUA (test code = JOSHUA) Association of [...] tests). Lab Interpretation Abnormal (test code = 09051-5) [facility] WITH [id number] 02:01:00 Test Item Value Reference Range Interpretation Comments WBC (test code = See_Comment [Automated 7226-2) message] The sy stem which generated this result transmitted reference range : 4.30 - 11.10 10*3/?L. The reference range was not used to interpret this result as normal/abnormal . RBC (test code = See_Comment [Automated 279-8) message] The sy stem which generated this [...] RDW-SD (test code = 42.5 fL 39-49.9 04532-9) RDW-CV (test code = 12.2 % 12-15.5 788-0) PLT (test code = See_Comment [Automated 777-3) message] The sy stem which generated this result transmitted reference range : 166 - 358 10*3/ ?L. The reference r ramona was not used to interpret this result as normal/abnormal . MPV (test code = 9.7 fL 9.5-12.9 91616-5) NRBC/100 WBC (test See_Comment [Automat ed code = 2173262143) message] The system which generated this result transmitted reference range : 0.0 - 10.0 /100 WBCs. The refer ence range was not u sed to interpret th is result as normal/abnormal . NRBC x10^3 (test code <0.01 See_Comment [Auto mated = 0945830073) message] The s ystem which generated this result transmitted reference range : 10*3/?L. The reference range was not used to interpret this result as normal/abnormal . GRAN MAT (NEUT) % 52.2 % (test code = 770-8) IMM GRAN % (test code 0.30 % = 2247072948) LYMPH % (test code = 36.0 % 736-9) MONO % (test code = 7.3 % 5905-5) EOS % (test code = 3.7 % 713-8) BASO % (test code = 0.5 % 706-2) GRAN MAT x10^3(ANC) 3.36 10*3/uL 1.88-7.09 (test code = 5875578321) IMM GRAN x10^3 (test <0.03 0-0.06 code = 0107367312) LYMPH x10^3 (test code 2.32 10*3/uL 1.32-3.29 = 731-0) MONO x10^3 (test code 0.47 10*3/uL 0.33-0.92 = 742-7) EOS x10^3 (test code = 0.24 10*3/uL 0.03-0.39 711-2) BASO x10^3 (test code 0.03 10*3/uL 0.01-0.07 = 704-7) Lab Interpretation Abnormal (test code = 35623-4) [facility] 1 [id number] 22:39:59 No acute cardiopulmonary abnormality. Emphysematous changes. [...] reviewed this study and agree with the abovereport.[facility] HospitalTroponin [id number] 22:28:00 Test Item Value Reference Range Interpretation Comments TROPONIN I (test <0.012 See_Comment [Automated code = 7864318871) message] The system which generated this result [...] ? Lab Interpretation Normal (test code = 34824-5) [facility]N-TERMINAL [id number] 22:24:00 Test Item Value Reference Range Interpretation Comments NT-proBNP (test code 675 pg/mL See_Comment H [Autom ated = 7743596804) message] The system which generated this result transmitted reference range : <=125. The reference range was not used to interpret this result as normal/abnormal . JOSHUA (test code = JOSHUA) Biotin has been reported to cause a negative bias, interpret results relative to patient's use of biotin. Lab Interpretation Abnormal (test code = 56015-1) [facility] (PT) / [id number] 22:20:00 Test Item Value Reference Range Interpretation [...] tions. Lab Interpretation (test Normal code = 79157-5) [facility] HospitalBasi Metabolic Panel (NA, K, CL, CO2, GLUCOSE, BUN, CREATININE, CA)2019-07-27 22:17:00 Test Item Value Reference Range Interpretation Comments NA (test code = 138 mmol/L 135-145 1754516861) K (test code = 4.4 mmol/L 3.5-5 3274972977) CL (test code = 101 mmol/L 98-108 0914124329) CO2 TOTAL (test code = 28 mmol/L 23-31 0986690759) AGAP (test code = 2-16 3770368025) BUN (test code = 16 mg/dL 7-23 1703503104) GLUCOSE (test code = 88 mg/dL 70-110 1442771999) CREATININE (test code 0.55 mg/dL 0.5-1.04 = 0662014488) CALCIUM (test code = 10.1 mg/dL 8.6-10.6 6585240248) eGFR Calculation mL/min/1.73m2 (Non-) (test code = 0851613031) eGFR Calculation mL/min/1.73m2 () (test code = 0408931886) JOSHUA (test code = JOSHUA) Association of [...] or urine or abnormalities in imaging tests). [facility] Function [facility] (ALB, T.PRO, BILI T, BU/BC, ALT, AST, ALK PHOS)2019-07-27 22:17:00 Test Item Value Reference Range Interpretation Comments TOTAL BILI (test code = 4983588934) 0.7 mg/dL 0.1-1.1 BILI UNCON (test code = 7550108789) 0.8 mg/dL 0.1-1.1 BILI CONJ (test code = 5813650143) 0.0 mg/dL 0-0.3 T PROTEIN (test code = 5506425595) 7.7 g/dL 6.3-8.2 ALBUMIN (test code = 0248293048) 4.8 g/dL 3.5-5 ALK PHOS (test code = 3190543485) 49 U/L 34-122 ALTv (test code = 1742-6) 35 U/L 5-35 AST(SGOT) (test code = 3558258340) 42 U/L 13-40 H Lab Interpretation (test code = Abnormal 21113-1) [facility] (ID NOW RAPID TESTING)2019-07-27 22:16:00 Test Item Value Reference Range Interpretation Comments SARS-CoV-2 Rapid ID NOW Not Detected Not Detected (test code = 68111-5) JOSHUA (test code = JOSHUA) ID NOW COVID-19 Assay is an isothermal nucleic acid amplification test intended for the qualitative detection of nucleic acid from SARS-CoV-2 viral RNA in nasopharyngeal (MINE SURVEYOR) specimens. It is used under Emergency Use [...] indicated. Lab Interpretation Normal (test code = 46503-1) [facility] WITH [id number] 21:58:00 Test Item Value Reference Range Interpretation [...] RDW-SD (test code = 41.4 fL 39-49.9 05897-4) RDW-CV (test code = 12.2 % 12-15.5 788-0) PLT (test code = See_Comment [Automated 777-3) message] The sy stem which generated this result transmitted reference range : 166 - 358 10*3/ ?L. The reference r ramona was not used to interpret this result as normal/abnormal . MPV (test code = 9.7 fL 9.5-12.9 37355-5) NRBC/100 WBC (test See_Comment [Automat ed code = 6185759628) message] The system which generated this result transmitted reference range : 0.0 - 10.0 /100 WBCs. The refer ence range was not u sed to interpret th is result as normal/abnormal . NRBC x10^3 (test code <0.01 See_Comment [Auto mated = 3026584791) message] The s ystem which generated this result transmitted reference range : 10*3/?L. The reference range was not used to interpret this result as normal/abnormal . GRAN MAT (NEUT) % 72.2 % (test code = 770-8) IMM GRAN % (test code 0.40 % = 5607373637) LYMPH % (test code = 19.5 % 736-9) MONO % (test code = 5.2 % 5905-5) EOS % (test code = 2.1 % 713-8) BASO % (test code = 0.6 % 706-2) GRAN MAT x10^3(ANC) 7.15 10*3/uL 1.88-7.09 H (test code = 7632949420) IMM GRAN x10^3 (test 0.04 10*3/uL 0-0.06 code = 6764518490) LYMPH x10^3 (test code 1.93 10*3/uL 1.32-3.29 = 731-0) MONO x10^3 (test code 0.52 10*3/uL 0.33-0.92 = 742-7) EOS x10^3 (test code = 0.21 10*3/uL 0.03-0.39 711-2) BASO x10^3 (test code 0.06 10*3/uL 0.01-0.07 = 704-7) Lab Interpretation Abnormal (test code = 57208-5) [facility]
[2021-11-09 04:29] LABS: Arterial Blood Carboxyhemoglob 3.4 % (0-1.5); Blood Gas Oxyhemoglobin 92.3 % (94-97); Blood O2 Saturation 96.8 % (92-98.5)
[2021-11-09] MEDS ORDERED: Magnesium Sulfate 2gm IVPB 2 G/50 ML BAG IV ONE (05:24)
[2021-11-09] MEDS ORDERED: METHYLPREDNISOLONE 125 MG INJ ONE (05:24)
[2021-11-09 05:27] LABS: Absolute Lymphocytes (CBC) 1.7 K/uL (0.7-4.9); Hematocrit 41.8 % (36.0-45.0); Lymphocytes % 17.4 % (15.3-44.8); MCV 85.7 fL (80-100); MPV 7.8 fL (7.6-11.3); RBC Red Blood Cell Count 4.88 M/uL (3.86-4.86)
[2021-11-09 06:31] LABS: Albumin 3.2 g/dL (3.4-5.0); Bilirubin Total 0.4 mg/dL (0.2-1.0); Magnesium 2.6 mg/dL (1.8-2.4); Potassium 3.6 mmol/L (3.5-5.1); Protein, Total 6.5 g/dL (6.4-8.2); Troponin High Sensitivity 12.7 pg/mL (<58.9)
--- NOTE | 2021-11-09 07:44 | EKG ---
Test Date: 2021-11-09 Test Time: 04:23:21 [employer] Supervisor: JOSÉ MEASUREMENT RESULTS: Intervals: Rate: 76 NH: 140 QRSD: 84 QT: 396 QTc: 445 [place]: P: 83 NH: 140 QRS: 82 T: 84 INTERPRETIVE STATEMENTS: Normal sinus rhythm Right atrial enlargement Borderline ECG Compared to ECG 10/24/2021 21:03:09 No significant changes Electronically Signed On 11-09-21 07:43:20 CDT by Ramses Palmer
[2021-11-09] MEDS ORDERED: LEVALBUTEROL 1.25 MG/3 ML NEB ONE (08:39)
--- NOTE | 2021-11-09 08:41 | EDPHYS ---
Physician Documentation [facility] [place], [place] Name: Dalia Reyes Age: 65 yrs Sex: Female : 1955 Arrival Date: 11/09/2021 Time: 04:05 Bed 18 Private MD: ED Physician Vaughn Ndiaye Historical: - Allergies: 11/09 04:26 Benadryl; jb4 04:26 Lorazepam; jb4 04:26 Valium; jb4 - Home Meds: 04:26 Albuterol Inhl [Active]; aspirin 81 mg Oral chew 1 tab once daily [Active]; jb4 atorvastatin 80 mg Oral tab 1 tab once daily [Active]; Prednisone Oral [Active]; Atrovent Inhl [Active]; lamotrigine oral [Active]; Morphine Oral [Active]; setraline [Active]; Trazodone Oral [Active]; - PMHx: 04:26 Chronic obstructive lung disease; diabetes mellitus; Emphysema; Hypercholesterolemia; jb4 Hypertensive disorder; - PSHx: 04:26 section; Heart Stents; jb4 - Immunization history:: Adult Immunizations up to date. - Social history:: Smoking status: unknown. Vital Signs: 04:16 BP 164 / 72; Pulse 81; Resp 23; Temp 97.3(O); Pulse Ox 100% on 2.5 lpm NC; Weight 57.15 jb4 kg (R); Height 5 ft. 6 in. (167.64 cm) (R); Pain 0/10; 05:00 BP 145 / 69; Pulse 77; Resp 21; Pulse Ox 97% on 2.5 lpm NC; jb4 05:45 BP 130 / 69; Pulse 79; Resp 25; Pulse Ox 94% on 2.5 lpm NC; jb4 07:00 BP 126 / 59; Pulse 83; Resp 21; Pulse Ox 94% on 2.5 lpm NC; tp1 08:00 BP 138 / 64; Pulse 79; Resp 20; Pulse Ox 98% on 2.5 lpm NC; tp1 09:00 BP 134 / 61; Pulse 94; Resp 20; Pulse Ox 94% on 2.5 lpm NC; tp1 10:00 BP 130 / 61; Pulse 94; Resp 20; Pulse Ox 94% on 2.5 lpm NC; tp1 11:16 BP 122 / 56; Pulse 95; Resp 22; Pulse Ox 95% on 2.5 lpm NC; tp1 04:16 Body Mass Index 20.34 (57.15 kg, 167.64 cm) jb4 MDM: 08:40 Patient medically screened. kdr 11/09 04:09 Order name: Blood Culture Adult (2) la11/09 04:09 Order name: CBC with Diff 11/09 04:09 Order name: Magnesium 11/09 04:09 Order name: NT PRO-BNP 11/09 04:09 Order name: Troponin HS 11/09 04:09 Order name: ABG 11/09 04:09 Order name: CMP 11/09 04:09 Order name: Lactate 11/09 04:32 Order name: ABG Arterial Blood Gas; Complete Time: 07:30 EDMS 11/09 05:28 Order name: CBC with Automated Diff; Complete Time: 07:30 EDMS 11/09 05:52 Order name: Lactate; Complete Time: 07:30 EDMS 11/09 06:31 Order name: Comprehensive Metabolic Panel; Complete Time: 07:30 EDMS 11/09 06:31 Order name: Troponin High Sensitivity; Complete Time: 07:30 EDMS 11/09 06:31 Order name: NT PRO-BNP; Complete Time: 07:30 EDMS 11/09 04:09 Order name: XRAY CXR (1 view) 11/09 04:09 Order name: EKG; Complete Time: 04:11 11/09 04:09 Order name: Cardiac monitoring; Complete Time: 05:22 11/09 04:09 Order name: EKG - Nurse/Tech; Complete Time: 05:22 11/09 04:09 Order name: IV Saline Lock; Complete Time: 05:22 11/09 04:09 Order name: Labs collected and sent; Complete Time: 05:22 11/09 04:09 Order name: O2 Per Protocol; Complete Time: 05:22 11/09 04:09 Order name: O2 Sat Monitoring; Complete Time: 05:22 11/09 06:31 Order name: Magnesium; Complete Time: 07:30 EDMS 11/09 09:21 Order name: SARS RAPID dh3 11/09 10:32 Order name: SARS-COV-2 Antigen Rapid EDMS Administered Medications: 05:32 Drug: SOLU-Medrol (methylPrednisoLONE) 125 mg Route: IVP; Site: right antecubital; jb4 05:32 Drug: Magnesium Sulfate 2 grams Route: IVPB; Infused Over: 2 hrs; Site: right jb4 antecubital; 07:22 Follow up: IV Status: Completed infusion; IV Intake: 50ml tp1 08:43 Drug: Xopenex (levalbuterol) (3) 1.25 mg Route: Inhalation; tp1 09:13 Follow up: Response: Wheezing diminished tp1 Disposition Summary: 11/09/21 08:40 Hospitalization Ordered Hospitalization Status: Observation kdr Provider: Ger Diehl kdr Location: Telemetry/MedSurg (observation) kdr Condition: Fair kdr Problem: an acute exacerbation kdr Symptoms: have improved kdr Bed/Room Type: Standard kdr Room Assignment: 425(11/09/21 11:21) eb Diagnosis - COPD/ Chronic obstructive pulmonary disease with (acute) exacerbation kdr Forms: - Medication Reconciliation Form kdr - SBAR form kdr Signatures: Dispatcher [employer] EDMS Vaughn Ndiaye MD MD kdr Dev Salcido, REIMBURSEMENT COUNSELOR-C REIMBURSEMENT COUNSELOR-Cla1 Nasir Peres, RN RN jb4 Maribell Winters Tiffany, SIDDHARTH RN tp1 Corrections: (The following items were deleted from the chart) 11:08 08:40 kdr eb 11:20 11:08 409 eb eb 11:21 11:20 416 eb eb
--- NOTE | 2021-11-09 08:41 | ER ---
Nurse's Notes [facility] Name: Dalia Reyes Age: 65 yrs Sex: Female : 1955 Arrival Date: 11/09/2021 Time: 04:05 Bed 18 Private MD: Diagnosis: COPD/ Chronic obstructive pulmonary disease with (acute) exacerbation Presentation: 11/09 04:16 Chief complaint: EMS states: Pt awoke with SOB, upon EMS arrival pt was in the tripod jb4 position and unable to speak more than one word at a time. Was satting 60% on RA, placed on Cpap, unable to tolerate, give duo neb 3 albuterol and 1 of atrovent. Given 350ml of NS via 20g to left AC. Coronavirus screen: Client presents with at least one sign or symptom that may indicate coronavirus-19. Standard/surgical mask placed on the client. Provider contacted for isolation considerations. Ebola Screen: No symptoms or risks identified at this time. Initial Sepsis Screen: Does the patient meet any 2 criteria? RR > 20 per min. Yes Does the patient have a suspected source of infection? No. Patient's initial sepsis screen is negative. Risk Assessment: Do you want to hurt yourself or someone else? Patient reports no desire to harm self or others. Onset of symptoms was November 09, 2021. Transition of care: patient was not received from another setting of care. 04:16 Method Of Arrival: EMS: [facility] jb4 04:16 Acuity: CONSTANTINO 3 jb4 Historical: - Allergies: 04:26 Benadryl; jb4 04:26 Lorazepam; jb4 04:26 Valium; jb4 - Home Meds: 04:26 Albuterol Inhl [Active]; aspirin 81 mg Oral chew 1 tab once daily [Active]; jb4 atorvastatin 80 mg Oral tab 1 tab once daily [Active]; Prednisone Oral [Active]; Atrovent Inhl [Active]; lamotrigine oral [Active]; Morphine Oral [Active]; setraline [Active]; Trazodone Oral [Active]; - PMHx: 04:26 Chronic obstructive lung disease; diabetes mellitus; Emphysema; Hypercholesterolemia; jb4 Hypertensive disorder; - PSHx: 04:26 section; Heart Stents; jb4 - Immunization history:: Adult Immunizations up to date. - Social history:: Smoking status: unknown. Screenin:12 Abuse screen: Denies threats or abuse. Denies injuries from another. Nutritional tp1 screening: No deficits noted. Tuberculosis screening: No symptoms or risk factors identified. Fall Risk No fall in past 12 months (0 pts). No secondary diagnosis (0 pts). IV access (20 points). Ambulatory Aid- None/Bed Rest/Nurse Assist (0 pts). Gait- Normal/Bed Rest/Wheelchair (0 pts) Mental Status- Oriented to own ability (0 pts). Assessment: 04:00 General: Appears in no apparent distress. comfortable, Behavior is calm, cooperative, jb4 appropriate for age. Pain: Denies pain. Neuro: Level of Consciousness is awake, alert, obeys commands, Oriented to person, place, time, situation. Cardiovascular: Patient's skin is warm and dry. Respiratory: Airway is patent Respiratory effort is even, unlabored, Respiratory pattern is regular, symmetrical. GI: No signs and/or symptoms were reported involving the gastrointestinal system. : No signs and/or symptoms were reported regarding the genitourinary system. EENT: No signs and/or symptoms were reported regarding the EENT system. Derm: Skin is intact, Skin is pink, warm \\T\\ dry. Musculoskeletal: Circulation, motion, and sensation intact. Range of motion: intact in all extremities. 05:00 Reassessment: Patient appears in no apparent distress at this time. Patient and/or jb4 family updated on plan of care and expected duration. Pain level reassessed. Patient is alert, oriented x 3, equal unlabored respirations, skin warm/dry/pink. 05:50 General: paged lab for second set of blood cultures. tw5 06:00 Reassessment: Patient appears in no apparent distress at this time. Patient and/or jb4 family updated on plan of care and expected duration. Pain level reassessed. Patient is alert, oriented x 3, equal unlabored respirations, skin warm/dry/pink. 07:02 Reassessment: daughter- Janice reyes [phone]. tp1 07:25 General: Appears in no apparent distress. comfortable, Behavior is calm, sleeping . tp1 General: daughter is at bedside . Cardiovascular: Patient's skin is warm and dry. Respiratory: Airway is compromised Respiratory effort is even, unlabored, Respiratory pattern is regular. 08:30 Reassessment: pt at foot of bed CO SOB, stated she ambulated to bedside commode without tp1 assistance. PT has audible wheezing and 2-3 word dyspnea, and a productive wet cough. PT stated " I just need my inhaler". Provider notified and at bedside. Received VO from Dr. Ndiaye to administer PT home medication of Mucinex DM 1 Tab and Trulicity 100 mcg/62.5 mcg, 25 mcg 1 puff. Home medications administered at this time. 08:35 Reassessment: received VO from Dr. Ndiaye for Xopenex X3. tp1 09:30 Reassessment: Patient appears in no apparent distress at this time. Patient and/or tp1 family updated on plan of care and expected duration. Pain level reassessed. Patient is alert, oriented x 3, equal unlabored respirations, skin warm/dry/pink. resting in bed with eyes closed Patient denies pain at this time. 10:30 Reassessment: Dr. Diehl at bedside. tp1 11:00 Reassessment: Patient appears in no apparent distress at this time. Patient is alert, tp1 oriented x 3, equal unlabored respirations, skin warm/dry/pink. resting in bed with eyes closed Patient denies pain at this time. 11:12 Reassessment: attempted to give report, was told room is dirty and to call back. tp1 11:26 Reassessment: attempted to give report, placed on hold. tp1 11:51 Reassessment: report given to Lidia Hernandez. tp1 Vital Signs: 04:16 BP 164 / 72; Pulse 81; Resp 23; Temp 97.3(O); Pulse Ox 100% on 2.5 lpm NC; Weight 57.15 jb4 kg (R); Height 5 ft. 6 in. (167.64 cm) (R); Pain 0/10; 05:00 BP 145 / 69; Pulse 77; Resp 21; Pulse Ox 97% on 2.5 lpm NC; jb4 05:45 BP 130 / 69; Pulse 79; Resp 25; Pulse Ox 94% on 2.5 lpm NC; jb4 07:00 BP 126 / 59; Pulse 83; Resp 21; Pulse Ox 94% on 2.5 lpm NC; tp1 08:00 BP 138 / 64; Pulse 79; Resp 20; Pulse Ox 98% on 2.5 lpm NC; tp1 09:00 BP 134 / 61; Pulse 94; Resp 20; Pulse Ox 94% on 2.5 lpm NC; tp1 10:00 BP 130 / 61; Pulse 94; Resp 20; Pulse Ox 94% on 2.5 lpm NC; tp1 11:16 BP 122 / 56; Pulse 95; Resp 22; Pulse Ox 95% on 2.5 lpm NC; tp1 04:16 Body Mass Index 20.34 (57.15 kg, 167.64 cm) jb4 ED Course: 04:05 Patient arrived in ED. tw5 04:05 Vaughn Ndiaye MD is Attending Physician. kdr 04:15 Nasir Peres, RN is Primary Nurse. jb4 04:26 Triage completed. jb4 04:26 Arm band placed on right wrist. jb4 05:22 ABG Sent. jb4 05:22 CMP Sent. jb4 05:22 Lactate Sent. jb4 05:22 CBC with Diff Sent. jb4 05:22 Magnesium Sent. jb4 05:22 NT PRO-BNP Sent. jb4 05:22 Troponin HS Sent. jb4 07:00 Patient has correct armband on for positive identification. Placed in gown. Bed in low tp1 position. Call light in reach. Side rails up X2. Adult w/ patient. 07:22 Primary Nurse role handed off by Nasir Peres, RN tp1 07:22 Ondina Holley, RN is Primary Nurse. tp1 08:19 Second set of blood cultures drawn. tp1 08:38 Ger Diehl MD is Hospitalizing Provider. kdr 08:50 intact, bleeding controlled, No redness/swelling at site. Pressure dressing applied, 20 tp1 G IV to the left AC. Administered Medications: 05:32 Drug: SOLU-Medrol (methylPrednisoLONE) 125 mg Route: IVP; Site: right antecubital; jb4 05:32 Drug: Magnesium Sulfate 2 grams Route: IVPB; Infused Over: 2 hrs; Site: right jb4 antecubital; 07:22 Follow up: IV Status: Completed infusion; IV Intake: 50ml tp1 08:43 Drug: Xopenex (levalbuterol) (3) 1.25 mg Route: Inhalation; tp1 09:13 Follow up: Response: Wheezing diminished tp1 Intake: 07:22 IV: 50ml; Total: 50ml. tp1 Outcome: 08:40 Decision to Hospitalize by Provider. kdr 12:25 Patient left the ED. eb Signatures: Vaughn Ndiaye MD MD kdr Nasir Peres, RN RN jb4 Maribell Winters Tiffany tw5 Ondina Holley, SIDDHARTH RN tp1 Corrections: (The following items were deleted from the chart) 09:11 08:30 Reassessment: pt at foot of bed CO SOB, stated she ambulated to bedside commode tp1 without assistance. PT has audible wheezing and 2-3 word dyspnea, and a productive wet cough. PT stated " I just need my inhaler". Provider notified and at bedside. Received VO from Dr. Ndiaye to administer PT home medication of Mucinex DM 1 Tab and Trulicity 100 mcg/62.5 mcg, 25 mcg 1 puff. tp1
[2021-11-09 10:32] LABS: SARS-CoV-2 Antigen Rapid Res Negative (Negative)
[2021-11-09] MEDS ORDERED: ONDANSETRON 4 MG/2 ML VIAL IV PRN (10:50)
[2021-11-09] MEDS ORDERED: ACETAMINOPHEN 500 MG TAB PO PRN (10:50)
[2021-11-09] MEDS ORDERED: ALBUTEROL 2.5 MG/3 ML NEB SOL NEB PRN ×2 (10:50→12:30)
--- NOTE | 2021-11-09 11:01 | P.HP ---
Certification for Inpatient Patient admitted to: Observation With expected LOS: <2 Midnights Practitioner: I am a practitioner with admitting privileges, knowledge of patient current condition, hospital course, and medical plan of care. Services: Services provided to patient in accordance with Admission requirements found in Title 42 Section 412.3 of the Code of Federal Regulations Patient History Date of Service: 11/09/21 Reason for admission: COPD exacerbation History of Present Illness: 65yo F, PMH: COPD on home O2 (3LNC), IDDM2, HTN, HLD Presents to the ED via EMS due to significant shortness of breath and hypoxia. Patient states she woke up this morning and felt short of breath just after walking to her bathroom. She also reports some increase in wheezing. She denies any fever/chills, no nausea/vomiting, no diarrhea. She has been taking her medications as prescribed. She does feel like she has been having slight increase in sputum production in the last 2 days. Upon EMS arrival, patient's oxygen saturation was reportedly in the 60s. Patient's daughter says her pulse ox at home was reading in the low 80s prior to EMS arrival and patient has poor circulation. In the ED, patient was noted to be tachypneic and wheezing, consistent with a COPD exacerbation. Chest x-ray was clear of any acute infiltrates. She had moderate improvement with breathing treatments, but still remained tachypneic and short of breath. Allergies No Known Allergies Allergy (Verified 04/20/21 07:15) Home Medications: Albuterol Sulfate [Proventil Hfa] 1 puff IH BID PRN 04/20/21 Aspirin [Aspirin EC] 81 mg PO DAILY 04/20/21 Atorvastatin Calcium [Lipitor] 80 mg PO DAILY 04/20/21 Buspirone HCl 15 mg PO DAILY 04/20/21 Clopidogrel Bisulfate [Plavix*] 75 mg PO DAILY 04/20/21 Fluticasone [Flovent Hfa 110*] 1 spray IH BID 04/20/21 Fluticasone/Umeclidin/Vilanter [Trelegy Ellipta 100-62.5-25] 1 each IH DAILY Guaifenesin/Dextromethorphan [Mucus Relief Dm Cough Tablet] 1 each PO BID 04/20/21 Ipratropium/Albuterol Sulfate [Iprat-Albut 0.5-3(2.5) mg/3 ml] 3 ml IH Q6HP PRN 04/20/21 Lamotrigine [Lamictal] 100 mg PO BID 04/20/21 Linagliptin [Tradjenta] 5 mg PO DAILY 04/20/21 Metoprolol Tartrate 25 mg PO BID 04/20/21 Prednisone [Sterapred Ds] 10 mg PO DAILY 04/20/21 Roflumilast [Daliresp] 500 mcg PO DAILY 04/20/21 Trazodone HCl 100 mg PO DAILY 04/20/21 Budesonide [Pulmicort Flexhaler] 90 mcg IH DAILYPRN PRN 11/09/21 Buspirone HCl [Buspar] 30 mg PO BEDTIME 11/09/21 Fluoxetine HCl [Prozac] 20 mg PO DAILY 11/09/21 - Past Medical/Surgical History Diabetic: No -: COPD -: HTN -: Diabetes mellitus type 2 -: CAD -: Depression -: Psychosocial/ Personal History: Patient is retired, lives with her daughter - Family History Father Notes: Patient is adopted - Social History Smoking Status: Current every day smoker Alcohol use: No CD- Drugs: No Caffeine use: Yes Place of Residence: Home Review of Systems 10-point ROS is otherwise unremarkable Physical Examination - Physical Exam General: Alert, Oriented x3, Mild distress HEENT: EOMI, Sclerae nonicteric Neck: No LAD Respiratory: Diminished, Expiratory wheezes Cardiovascular: No edema, Regular rate/rhythm Gastrointestinal: Soft and benign, Non-distended, No tenderness Musculoskeletal: No contractures, No tenderness Integumentary: No significant lesion, No tenderness/swelling Neurological: Normal speech, Normal strength at 5/5 x4 extr, Normal affect - Studies Laboratory Data (last 24 hrs) 11/09/21 05:10: WBC 10.00, Hgb 13.4, Hct 41.8, Plt Count 248 11/09/21 04:55: Sodium 141, Potassium 3.6, BUN 10, Creatinine 0.73, Glucose 187 H, Magnesium 2.6 H, Total Bilirubin 0.4, AST 45 H, ALT 64, Alkaline Phosphatase 74 Assessment and Plan - Advance Directives Does patient have a Living Will: Yes Does patient have a Durable POA for Healthcare: Yes Physician Review Additional Text: Problem list Acute on chronic hypoxemic respiratory failure secondary to acute on chronic COPD exacerbation IDDM 2 Hypertension Hyperlipidemia Depression Nicotine dependence Acute COPD exacerbation Prednisone, nebs ordered Wean oxygen as tolerated Patient is on chronic 3 L nasal cannula at home Gets short of breath easily at baseline with ambulation Continue home Trelegy, patient brought it with her Pulmonology consult Patient reportedly had a short run of tachyarrhythmia in the ED, no evidence of pneumonia, QTC: 445; will hold off on azithromycin at this time IDDM 2 Sliding scale insulin, aggressive Reports she takes 10 units twice daily of insulin, will start with 15 units Semglee twice daily, adjust accordingly Confirm home medications and continue antihypertensives and antidepressants Nicotine patch ordered, patient counseled on smoking cessation VTE: Lovenox Code: Full Dispo: Anticipate DC home tomorrow Time Spent Managing Pts Care (In Minutes): 70
[2021-11-09] MEDS ORDERED: INSULIN -REGULAR HUMAN 50 UNIT/0.5 ML ML SQ SCH (12:15)
[2021-11-09] MEDS: Fluticasone/Umeclidin/Vilanter [Trelegy Ellipta 100-62.5-25] Blst.W.Dev IH SCH (12:45)
[2021-11-09] MEDS ORDERED: NICOTINE 21 MG/PAT TD SCH (13:01)
[2021-11-09 13:09] VITALS: BMI 20.3
[2021-11-09] MEDS: IPRATROPIUM BROM 0.5MG/2.5ML NEB SCH ×2 (15:50→20:15)
[2021-11-09] MEDS: INSULIN -REGULAR HUMAN 50 UNIT/0.5 ML ML SQ SCH ×2 (16:09→21:10)
[2021-11-09] MEDS: predniSONE 20 MG TAB PO SCH (16:09)
[2021-11-09] MEDS ORDERED: BUDESONIDE IH PRN (16:30)
[2021-11-09] MEDS ORDERED: TRAZODONE 50 MG TABLET PO PRN (16:32)
[2021-11-09] MEDS ORDERED: BUSPIRONE HCL 15 MG TABLET PO SCH ×2 (21:00)
[2021-11-09] MEDS ORDERED: ATORVASTATIN 80 MG TAB PO SCH (21:00)
[2021-11-09] MEDS: FLUTICASONE 110 MCG/PUFF 12 GM INH IH SCH (21:00)
[2021-11-09] MEDS: lamoTRIgine 100 MG TAB PO SCH (21:09)
[2021-11-09] MEDS: METOPROLOL TAR 25 MG TAB PO SCH (21:09)
[2021-11-09] MEDS: INSULIN GLARGINE 100 UNIT/ML SQ SCH (21:10)
[2021-11-10] MEDS: IPRATROPIUM BROM 0.5MG/2.5ML NEB SCH (01:22)
[2021-11-10 04:41] VITALS: O2SAT 93
[2021-11-10 06:12] LABS: Absolute Lymphocytes (CBC) 1.9 K/uL (0.7-4.9); Hematocrit 38.2 % (36.0-45.0); Lymphocytes % 15.3 % (15.3-44.8); MCV 84.9 fL (80-100); MPV 7.7 fL (7.6-11.3); RBC Red Blood Cell Count 4.49 M/uL (3.86-4.86)
[2021-11-10 06:33] LABS: Magnesium 2.4; Potassium 3.5 mmol/L (3.5-5.1)
[2021-11-10] MEDS: INSULIN -REGULAR HUMAN 50 UNIT/0.5 ML ML SQ SCH (07:30)
[2021-11-10] MEDS: lamoTRIgine 100 MG TAB PO SCH (08:16)
[2021-11-10] MEDS: METOPROLOL TAR 25 MG TAB PO SCH (08:17)
[2021-11-10] MEDS: predniSONE 20 MG TAB PO SCH (08:20)
[2021-11-10] MEDS: FLUTICASONE 110 MCG/PUFF 12 GM INH IH SCH (08:21)
[2021-11-10] MEDS: Fluticasone/Umeclidin/Vilanter [Trelegy Ellipta 100-62.5-25] Blst.W.Dev IH SCH (08:21)
[2021-11-10] MEDS: INSULIN GLARGINE 100 UNIT/ML SQ SCH (08:23)
[2021-11-10] MEDS ORDERED: POTASSIUM 25 MEQ EFFERV TAB PO ONE (09:00)
[2021-11-10] MEDS ORDERED: BUSPIRONE HCL 15 MG TABLET PO SCH (09:00)
[2021-11-10] MEDS ORDERED: ATORVASTATIN 80 MG TAB PO SCH (09:00)
[2021-11-10] MEDS ORDERED: ENOXAPARIN 40 MG/0.4 ML SQ SCH (09:00)
[2021-11-10] MEDS ORDERED: ROFLUMILAST 500 MCG TABLET PO SCH (09:00)
[2021-11-10] MEDS ORDERED: CLOPIDOGREL 75 MG TABLET PO SCH (09:00)
[2021-11-10] MEDS ORDERED: ASPIRIN EC 81 MG TAB PO SCH (09:00)
[2021-11-10] MEDS ORDERED: FLUOXETINE 20 MG CAP PO SCH (09:00)
[2021-11-10 09:25] VITALS: BP 171/86; TEMP 97.7
--- NOTE | 2021-11-10 12:14 | RAD REPORT ---
EXAM DESCRIPTION: X-ray single view chest. CLINICAL HISTORY: 65 years Female, COPD COMPARISON: Chest x-ray report from 10/24/2021. The image was unavailable for review TECHNIQUE: Single portable x-ray view of the chest performed on 11/09/2021 at 4:29 AM FINDINGS: Lungs are hyperinflated and are grossly clear. There is very mild nonspecific coarsening o f the interstitial lung markings. No airspace consolidation is identified. There is no evidence of a pneumothorax. The cardiac silhouette is normal in size and configuration. The mediastinal contours are normal. No acute osseous abnormality is identified. No acute soft tissue abnormalities are seen. Lines and tubes: None. Free air: None IMPRESSION: 1. Hyperinflation of the lungs. 2. Mild nonspecific coarsening of the interstitial lung markings. Electronically signed by: Janice Rviero DO 11/09/2021 5:23 AM CDT Due to temporary technical issues with the PACS/Fluency reporting system, reports are being signed by the in house radiologists without review as a courtesy to insure prompt reporting. The interpreting radiologist is fully responsible for the content of the report.
== END 2021-11-10 10:50 | disposition home or self-care (01) ==
LOC: ER 04:04 → ERHOLD 10:50 → 4TH 11:54
PROVIDERS: ADMIT Hospitalist; ATTEND Hospitalist
DX: J96.21 Acute and chronic respiratory failure with hypoxia (principal); J44.1 Chronic obstructive pulmonary disease with (acute) exacerbation; E11.9 Type 2 diabetes mellitus without complications; I25.10 Atherosclerotic heart disease of native coronary artery without angina pectoris; I10 Essential (primary) hypertension; E78.5 Hyperlipidemia, unspecified; F17.210 Nicotine dependence, cigarettes, uncomplicated; F32.A Depression, unspecified; Z71.6 Tobacco abuse counseling; Z79.4 Long term (current) use of insulin; Z20.822 Contact with and (suspected) exposure to COVID-19; Z99.81 Dependence on supplemental oxygen
CPT/HCPCS: 96365; 93005; 87040 ×2; 85025 ×2; 80048; 36415 ×2; 83735 ×2; 82947 ×4; 83605; 84484; 80053; 83880; 71045; 94640; 82805; 94760 ×3; 96375; 99284; 96366; 87811; J7614; J1815 ×3; J7512 ×2; J1650; J3475; J2930; G0378 ×3

== ENCOUNTER 2022-04-18 01:49 | Emergency (ER) | payer OTHER ==
--- OUTSIDE RECORDS SUMMARY | 2022-04-18 02:08 | XMS REPORT | Continuity of Care Document ---
:1955 Author Organization [facility] t Address [address] [facility]. [address] [place] [address] Care Team Providers Name Role Phone Asked, No Pcp Primary Care Physician Unavailable Rogelio Oconnor Attending Clinician Zina DALY, Colette De León Attending Clinician Hyun Flynn MD Attending Clinician Doctor Unassigned, [place] Attending Clinician Unavailable Sarah Barkley Attending Clinician Minna Mike MD Attending Clinician Don DALY, Lexy Thibodeaux Attending Clinician David Echeverria Attending Clinician [phone] MINNA MIKE Attending Clinician Unavailable Soila Villar DO Attending Clinician SOILA VILLAR Attending Clinician Unavailable HYUN FLYNN Admitting Clinician Unavailable Chiqui BOB, David Alva Admitting Clinician [phone] SOILA VILLAR Admitting Clinician Unavailable Payers [...] rs active active ity of problems problems [facility] Peripheral Periphera Problem Active 2021-12-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 n Propensi Active ty to 5-19 adverse 00:00: reaction 00 to drug LORazepa Propensi Active m - Oral ty to 3-16 adverse 00:00: reaction 00 to drug Benadryl Propensi Active ty to 3-12 adverse 00:00: reaction 00 to drug DIPHENHY DRUG Active Anxiety [facility] DRAMINE INGREDI 6-18 ity of 00:00: [place] [id number] [facility] Diphenhy Propensi Active Anxiety 2020-0 Unive rs dramine ty to 6-18 ity of adverse 00:00: [place] reaction 00 Medical s Branch NO KNOWN Drug Active Univers ALLERGIE Class [facility] of [facility] [place] Social History Social Habit Start Date Stop Date Quantity Comments Source History of tobacco Cigarette Smoker [facility] use Hospital Exposure to Not sure University of SARS-CoV-2 (event) [facility] Cigarettes smoked 2021-07-15 2021-07-15 [facility] current (pack per 00:00:00 00:00:00 Hospita l day) - Reported Tobacco use and 2021-07-15 2021-07-15 Smokeless [facility] exposure 00:00:00 00:00:00 tobacco non-user Hospital Alcohol intake 2021-07-15 2021-07-15 Ex-drinker [facility] 00:00:00 00:00:00 (finding) Hospital Cigarette 2019-12-28 2019-12-28 University of pack-years 00:00:00 00:00:00 [facility] History SDOH 2019-12-28 2019-12-28 1 University o f Alcohol Frequency 00:00:00 00:00:00 [facility] History SDOH 2019-12-28 2019-12-28 99 University o f Alcohol Std Drinks 00:00:00 00:00:00 [facility] History SDOH 2019-12-28 2019-12-28 1 University o f Alcohol Binge 00:00:00 00:00:00 [facility] Sex Ass[birth year] [facility] 00:00:00 00:00:00 Hospital Smoking Status Start Date Stop Date Source Smokes tobacco daily 2021-07-15 00:00:00 [facility] Unknown if ever smoked [facility] Medications Ordered Filled Start Stop Current Ordering Indication Dosage Frequency Signature Comments Components Source Medication Medication Date Date Medication? Clinician (SIG) Name Name TAKE 2021-02 No 100 TABLET 0-30 TWICE 00:00: DAILY. 00 prednisone 2021-02 No 10 mg 0-29 tablet 00:00: 00 TAKE 2021-02 No 10 TABLET BY 0-29 MOUTH TWICE 00:00: DAILY 00 Dose 2021-02 No Unknown 0-11 00:00: 00 Dose 2021-02 No Unknown 0-11 00:00: 00 Dose 2021-02 No Unknown 0-11 00:00: 00 ipratropium 2022-0 No 0.5 9-29 mg-albutero 00:00: l 3 mg (2.5 00 mg base)/3 mL nebulizatio n soln ipratropium 2-0 No 0.5 9-29 mg-albutero 00:00: l 3 mg (2.5 00 mg base)/3 mL nebulizatio n soln ipratropium 2-0 No 0.5 9-29 mg-albutero 00:00: l 3 mg (2.5 00 mg base)/3 mL nebulizatio n soln ipratropium 2-0 No 0.5 9-29 mg-albutero 00:00: l 3 mg (2.5 00 mg base)/3 mL nebulizatio n soln fluoxetine 2-0 No 20 mg 9-28 capsule 00:00: 00 fluoxetine 2022-0 No 20 mg 9-28 capsule 00:00: 00 fluoxetine 2022-0 No 20 mg 9-28 capsule 00:00: 00 fluoxetine 2022-0 No 20 mg 9-28 capsule 00:00: 00 TAKE 1 2022-0 No TABLET AT 9-26 BEDTIME. 00:00: 00 TAKE 1 2022-0 No TABLET AT 9-26 BEDTIME. 00:00: 00 TAKE 1 2-0 No 100 TABLET AT 9-26 BEDTIME. 00:00: 00 TAKE 1 2022-0 No TABLET AT 9-26 BEDTIME. 00:00: 00 Dose 2022-0 No Unknown 9-14 00:00: 00 Dose 2022-0 No Unknown 9-14 00:00: 00 Dose 2022-0 No Unknown 9-14 00:00: 00 Dose 2022-0 No Unknown 9-14 00:00: 00 Dose 2022-0 No Unknown 9-13 00:00: 00 quetiapine 2022-0 No 25 mg 9-13 tablet 00:00: 00 prednisone 2022-0 No 20 mg 9-13 tablet 00:00: 00 Dose 2022-0 No Unknown 9-13 00:00: 00 Dose 2022-0 No Unknown 9-13 00:00: 00 quetiapine 2022-0 No 25 mg 9-13 tablet 00:00: 00 prednisone 2022-0 No 20 mg 9-13 tablet 00:00: 00 Dose 2022-0 No Unknown 9-13 00:00: 00 Dose 2022-0 No Unknown 9-13 00:00: 00 quetiapine 2022-0 No 25 mg 9-13 tablet 00:00: 00 prednisone 2022-0 No 20 mg 9-13 tablet 00:00: 00 Dose 2022-0 No Unknown 9-13 00:00: 00 Dose 2022-0 No Unknown 9-13 00:00: 00 quetiapine 2022-0 No 25 mg 9-13 tablet 00:00: 00 prednisone 2022-0 No 20 mg 9-13 tablet 00:00: 00 Dose 2022-0 No Unknown 9-13 00:00: 00 azithromyci 2022-0 No n 250 mg 9-09 tablet 00:00: 00 azithromyci 2022-0 No n 250 mg 9-09 tablet 00:00: 00 azithromyci 2022-0 No n 250 mg 9-09 tablet 00:00: 00 azithromyci 2022-0 No n 250 mg 9-09 tablet 00:00: 00 TAKE 1 2022-0 No 5 TABLET BY 8-18 MOUTH AT 00:00: BEDTIME 00 TAKE 1 TO 2 2022-0 No TABLETS BY 8-18 MOUTH EVERY 00:00: 2 HOURS 00 NEEDED TAKE 1 2022-0 No 5 TABLET BY 8-18 MOUTH AT 00:00: BEDTIME 00 TAKE 1 TO 2 2022-0 No TABLETS BY 8-18 MOUTH EVERY 00:00: 2 HOURS 00 NEEDED TAKE 1 2022-0 No 5 TABLET BY 8-18 MOUTH AT 00:00: BEDTIME 00 TAKE 1 TO 2 2022-0 No TABLETS BY 8-18 MOUTH EVERY 00:00: 2 HOURS 00 NEEDED TAKE 1 2022-0 No 5 TABLET BY 8-18 MOUTH AT 00:00: BEDTIME 00 TAKE 1 TO 2 2022-0 No TABLETS BY 8-18 MOUTH EVERY 00:00: 2 HOURS 00 NEEDED Dose 2022-0 No Unknown 09-23 00:00: 00 Lantus 2022-0 No Solostar - U-100 00:00: Insulin 100 00 unit/mL (3 mL) subcutaneou s pen Dose 2-0 No Unknown 09-23 00:00: 00 Lantus 2022-0 No Solostar 8-16 U-100 00:00: Insulin 100 00 unit/mL (3 mL) subcutaneou s pen Dose 2022-0 No Unknown 8-16 00:00: 00 Lantus 2022-0 No Solostar 8-16 U-100 00:00: Insulin 100 00 unit/mL (3 mL) subcutaneou s pen Dose 2022-0 No Unknown 8-16 00:00: 00 Lantus 2022-0 No Solostar 8-16 U-100 00:00: Insulin 100 00 unit/mL (3 mL) subcutaneou s pen &lt 2022-0 No 8-12 00:00: 00 &lt 2022-0 No 8-12 00:00: 00 &lt 2022-0 No 8-12 00:00: 00 &lt 2022-0 No 8-12 00:00: 00 &lt 2022-0 No 8-12 00:00: 00 &lt 2022-0 No 8-12 00:00: 00 &lt 2022-0 No 8-12 00:00: 00 &lt 2022-0 No 8-12 00:00: 00 Dose 2022-0 No Unknown 8-08 00:00: 00 Dose 2022-0 No Unknown 8-08 00:00: 00 Dose 2022-0 No Unknown 8-08 00:00: 00 Dose 2022-0 No Unknown 8-08 00:00: 00 Dose 2022-0 No Unknown 8-05 00:00: 00 Dose 2022-0 No Unknown 8-05 00:00: 00 Dose 2022-0 No Unknown 8-05 00:00: 00 Dose 2022-0 No Unknown 8-05 00:00: 00 Dose 2022-0 No Unknown 8-05 00:00: 00 Dose 2022-0 No Unknown 8-05 00:00: 00 Dose 2022-0 No Unknown 8-05 00:00: 00 Dose 2022-0 No Unknown 8-05 00:00: 00 Dose 2022-0 No Unknown 8-03 00:00: 00 Dose 2022-0 No Unknown 8-03 00:00: 00 Dose 2022-0 No Unknown 8-03 00:00: 00 Dose 2022-0 No Unknown 8-03 00:00: 00 Dose 2022-0 No Unknown 8- 00:00: 00 &lt 2022-0 No 8-02 00:00: 00 &lt 2022-0 No 8-02 00:00: 00 &lt 2022-0 No 8-02 00:00: 00 &lt 2022-0 No 8- 00:00: 00 Dose 2022-0 No Unknown 8- 00:00: 00 Dose 2022-0 No Unknown 8- 00:00: 00 &lt 2022-0 No 8- 00:00: 00 &lt 2022-0 No 8- 00:00: 00 &lt 2022-0 No 8- 00:00: 00 &lt 2022-0 No 8- 00:00: 00 Dose 2022-0 No Unknown 8- 00:00: 00 Dose 2022-0 No Unknown 8- 00:00: 00 &lt 2022-0 No 8- 00:00: 00 &lt 2022-0 No 8- 00:00: 00 &lt 2022-0 No 8- 00:00: 00 &lt 2022-0 No 8- 00:00: 00 Dose 2022-0 No Unknown 8- 00:00: 00 Dose 2022-0 No Unknown 8- 00:00: 00 &lt 2022-0 No 8- 00:00: 00 &lt 2022-0 No 8- 00:00: 00 &lt 2022-0 No 8- 00:00: 00 &lt 2022-0 No 8- 00:00: 00 Dose 2022-0 No Unknown 8- 00:00: 00 Dose 2022-0 No Unknown 8- 00:00: 00 Dose 2022-0 No Unknown 8- 00:00: 00 Dose 2022-0 No Unknown 8- 00:00: 00 Dose 2022-0 No Unknown 8- 00:00: 00 &lt 2022-0 No 7- 00:00: 00 &lt 2022-0 No 7- 00:00: 00 &lt 2022-0 No 7- 00:00: 00 &lt 2022-0 No 7- 00:00: 00 Dose 2022-0 No Unknown 7- 00:00: 00 Dose 2022-0 No Unknown 7-20 00:00: 00 Dose 2022-0 No Unknown 7-20 00:00: 00 Dose 2022-0 No Unknown 7-20 00:00: 00 Dose 2022-0 No Unknown 7- 00:00: 00 buspirone 2022-0 No mg 15 mg 7-19 tablet 00:00: 00 Dose 2022-0 No Unknown 7- 00:00: 00 trazodone 2022-0 No 1mg 100 mg 7-19 tablet 00:00: 00 Dose 2022-0 No Unknown 7-19 00:00: 00 Dose 2022-0 No Unknown 7- 00:00: 00 &lt 2022-0 No 7-19 00:00: 00 &lt 2022-0 No 7-19 00:00: 00 &lt 2022-0 No 7-19 00:00: 00 &lt 2022-0 No 7-19 00:00: 00 Dose 2022-0 No Unknown 7- 00:00: 00 &lt 2022-0 No 7-19 00:00: 00 Dose 2022-0 No Unknown 7- 00:00: 00 buspirone 2022-0 No mg 15 mg 7-19 tablet 00:00: 00 Dose 2022-0 No Unknown 7- 00:00: 00 trazodone 2022-0 No 1mg 100 mg 7-19 tablet 00:00: 00 Dose 2022-0 No Unknown 7-19 00:00: 00 Dose 2022-0 No Unknown 7-19 00:00: 00 &lt 2022-0 No 7-19 00:00: 00 &lt 2022-0 No 7-19 00:00: 00 &lt 2022-0 No 7-19 00:00: 00 &lt 2022-0 No 7-19 00:00: 00 Dose 2022-0 No Unknown 7-19 00:00: 00 &lt 2022-0 No 7-19 00:00: 00 Zoloft 50 2022-0 No 1mg mg tablet 7- 00:00: 00 buspirone 2022-0 No mg 15 mg 7-19 tablet 00:00: 00 Lamictal 2022-0 No 1mg 100 mg 7-19 tablet 00:00: 00 trazodone 2022-0 No 1mg 100 mg 7-19 tablet 00:00: 00 Dose 2022-0 No Unknown 7-19 00:00: 00 Dose 2022-0 No Unknown 7-19 00:00: 00 &lt 2022-0 No 7-19 00:00: 00 &lt 2022-0 No 7-19 00:00: 00 &lt 2022-0 No 7-19 00:00: 00 &lt 2022-0 No 7-19 00:00: 00 Dose 2022-0 No Unknown 7-19 00:00: 00 &lt 2022-0 No 7-19 00:00: 00 Dose 2022-0 No Unknown 7-19 00:00: 00 buspirone 2022-0 No mg 15 mg 7-19 tablet 00:00: 00 Dose 2022-0 No Unknown 7-19 00:00: 00 trazodone 2022-0 No 1mg 100 mg 7-19 tablet 00:00: 00 Dose 2022-0 No Unknown 7-19 00:00: 00 Dose 2022-0 No Unknown 7-19 00:00: 00 &lt 2022-0 No 7-19 00:00: 00 &lt 2022-0 No 7-19 00:00: 00 &lt 2022-0 No 7-19 00:00: 00 &lt 2022-0 No 7-19 00:00: 00 Dose 2022-0 No Unknown 7-19 00:00: 00 &lt 2022-0 No 7-19 00:00: 00 &lt 2022-0 No 7-15 00:00: 00 &lt 2022-0 No 7-15 00:00: 00 &lt 2022-0 No 7-15 00:00: 00 &lt 2022-0 No 7-15 00:00: 00 &lt 2022-0 No 7-15 00:00: 00 &lt 2022-0 No 7-15 00:00: 00 &lt 2022-0 No 7-15 00:00: 00 &lt 2022-0 No 7-15 00:00: 00 &lt 2022-0 No 7-15 00:00: 00 &lt 2022-0 No 7-15 00:00: 00 &lt 2022-0 No 7-15 00:00: 00 &lt 2022-0 No 7-15 00:00: 00 &lt 2022-0 No 7-15 00:00: 00 &lt 2022-0 No 7-15 00:00: 00 &lt 2022-0 No 7-15 00:00: 00 &lt 2022-0 No 7-15 00:00: 00 Dose 2022-0 No Unknown 7-14 00:00: 00 Dose 2022-0 No Unknown 7-14 00:00: 00 Dose 2022-0 No Unknown 7-14 00:00: 00 Dose 2022-0 No Unknown 7-14 00:00: 00 Dose 2022-0 No Unknown 7-11 00:00: 00 &lt 2022-0 No 7-11 00:00: 00 &lt 2022-0 No 7-11 00:00: 00 Dose 2022-0 No Unknown 7-11 00:00: 00 &lt 2022-0 No 7-11 00:00: 00 &lt 2022-0 No 7-11 00:00: 00 Dose 2022-0 No Unknown 7-11 00:00: 00 &lt 2022-0 No 7-11 00:00: 00 &lt 2022-0 No 7-11 00:00: 00 Dose 2022-0 No Unknown 7-11 00:00: 00 &lt 2022-0 No 7-11 00:00: 00 &lt 2022-0 No 7-11 00:00: 00 &lt 2022-0 No 7-08 00:00: 00 Dose 2022-0 No Unknown 7-08 00:00: 00 Dose 2022-0 No Unknown 7-08 00:00: 00 &lt 2022-0 No 7-08 00:00: 00 &lt 2022-0 No 7-08 00:00: 00 &lt 2022-0 No 7-08 00:00: 00 Dose 2022-0 No Unknown 7-08 00:00: 00 &lt 2022-0 No 7-08 00:00: 00 &lt 2022-0 No 7-08 00:00: 00 Dose 2022-0 No Unknown 7-08 00:00: 00 Dose 2022-0 No Unknown 7-08 00:00: 00 &lt 2022-0 No 7-08 00:00: 00 &lt 2022-0 No 7-08 00:00: 00 &lt 2022-0 No 7-08 00:00: 00 Dose 2022-0 No Unknown 7-08 00:00: 00 &lt 2022-0 No 7-08 00:00: 00 &lt 2022-0 No 7-08 00:00: 00 Dose 2022-0 No Unknown 7-08 00:00: 00 Dose 2022-0 No Unknown 7-08 00:00: 00 &lt 2022-0 No 7-08 00:00: 00 &lt 2022-0 No 7-08 00:00: 00 &lt 2022-0 No 7-08 00:00: 00 Dose 2022-0 No Unknown 7-08 00:00: 00 &lt 2022-0 No 7-08 00:00: 00 &lt 2022-0 No 7-08 00:00: 00 Dose 2022-0 No Unknown 7-08 00:00: 00 Dose 2022-0 No Unknown 7-08 00:00: 00 &lt 2022-0 No 7-08 00:00: 00 &lt 2022-0 No 7-08 00:00: 00 &lt 2022-0 No 7-08 00:00: 00 Dose 2022-0 No Unknown 7-08 00:00: 00 &lt 2022-0 No 7-08 00:00: 00 &lt 2022-0 No 7-06 00:00: 00 &lt 2022-0 No 7-06 00:00: 00 Dose 2022-0 No Unknown 7-06 00:00: 00 &lt 2022-0 No 7-06 00:00: 00 &lt 2022-0 No 7-06 00:00: 00 Dose 2022-0 No Unknown 7-06 00:00: 00 &lt 2022-0 No 7-06 00:00: 00 &lt 2022-0 No 7-06 00:00: 00 Dose 2022-0 No Unknown 7-06 00:00: 00 &lt 2022-0 No 7-06 00:00: 00 &lt 2022-0 No 7-06 00:00: 00 Dose 2022-0 No Unknown 7- 00:00: 00 &lt 2022-0 No 6-29 00:00: 00 Dose 2022-0 No Unknown 6- 00:00: 00 &lt 2022-0 No 6-29 00:00: 00 Dose 2022-0 No Unknown 08-06 00:00: 00 &lt 2022-0 No 08-06 00:00: 00 Dose 2022-0 No Unknown 08-06 00:00: 00 &lt 2022-0 No 08-06 00:00: 00 Dose 2022-0 No Unknown 08-06 00:00: 00 &lt 2022-0 No 6 00:00: 00 &lt 2022-0 No 6 00:00: 00 &lt 2022-0 No 6 00:00: 00 &lt 2022-0 No 6 00:00: 00 Zoloft 50 2022-0 No 1mg mg tablet 07-29 00:00: 00 buspirone 2022-0 No mg 15 mg 6-21 tablet 00:00: 00 Lamictal 2022-0 No 1mg 100 mg 6-21 tablet 00:00: 00 quetiapine 2022-0 No 51mg 25 mg 6-21 tablet 00:00: 00 &lt 2022-0 No 6- 00:00: 00 &lt 2022-0 No 6- 00:00: 00 &lt 2022-0 No 6- 00:00: 00 &lt 2022-0 No 6- 00:00: 00 Zoloft 50 2022-0 No 1mg mg tablet 07-29 00:00: 00 buspirone 2022-0 No mg 15 mg 6-21 tablet 00:00: 00 Lamictal 2022-0 No 1mg 100 mg 6-21 tablet 00:00: 00 quetiapine 2022-0 No 51mg 25 mg 6-21 tablet 00:00: 00 &lt 2022-0 No 6-21 00:00: 00 &lt 2022-0 No 6-21 00:00: 00 &lt 2022-0 No 6-21 00:00: 00 &lt 2022-0 No 6-21 00:00: 00 Zoloft 50 2022-0 No 1mg mg tablet 6 00:00: 00 buspirone 2022-0 No mg 15 mg 6-21 tablet 00:00: 00 Lamictal 2022-0 No 1mg 100 mg 6-21 tablet 00:00: 00 quetiapine 2022-0 No 51mg 25 mg 6-21 tablet 00:00: 00 &lt 2022-0 No 6-21 00:00: 00 &lt 2022-0 No 6-21 00:00: 00 &lt 2022-0 No 6-21 00:00: 00 &lt 2022-0 No 6-21 00:00: 00 Zoloft 50 2-0 No 1mg mg tablet 6-21 00:00: 00 buspirone 2022-0 No mg 15 mg 6-21 tablet 00:00: 00 Lamictal 2022-0 No 1mg 100 mg 6-21 tablet 00:00: 00 quetiapine 2022-0 No 51mg 25 mg 6-21 tablet 00:00: 00 &lt 2022-0 No 6-21 00:00: 00 &lt 2022-0 No 6-21 00:00: 00 &lt 2022-0 No 6-21 00:00: 00 &lt 2022-0 No 6-21 00:00: 00 &lt 2022-0 No 6-18 00:00: 00 &lt 2022-0 No 6-18 00:00: 00 &lt 2022-0 No 6-18 00:00: 00 &lt 2022-0 No 6-18 00:00: 00 &lt 2022-0 No 6-18 00:00: 00 &lt 2022-0 No 6-18 00:00: 00 &lt 2022-0 No 6-18 00:00: 00 &lt 2022-0 No 6-18 00:00: 00 metoprolol 2022-0 No 1mg tartrate 25 6-14 mg tablet 00:00: 00 &lt 2022-0 No 6-14 00:00: 00 metoprolol 2022-0 No 1mg tartrate 25 6-14 mg tablet 00:00: 00 &lt 2022-0 No 6-14 00:00: 00 metoprolol 2022-0 No 1mg tartrate 25 6-14 mg tablet 00:00: 00 &lt 2022-0 No 6-14 00:00: 00 metoprolol 2022-0 No 1mg tartrate 25 6-14 mg tablet 00:00: 00 &lt 2022-0 No 6-14 00:00: 00 predniSONE 2022-0 Yes 10mg QD Take 10 mg M [facility] (DELTASONE) 6-[address] 10 mg 13:57: daily. [facility]ospita tablet 05 l lamoTRIgine 2-0 Yes 100mg Q.5D Take 100 M [facility]i (LaMICtal) 6-[address] 100 MG 13:57: mouth 2 Hospita tablet 05 (two) l times a day. busPIRone 2022-0 Yes 15mg Q.5D Take 15 mg Me [facility]odi (BUSPAR) 10 6-[address] MG tablet 13:57: (two) Hospita 05 times a l day. traZODone 2-0 Yes 100mg Take 100 [facility] (DESYREL) [...] a day as needed for wheezing. fluticasone 2021-0 Yes 1{puff} Q.5D Inhale 1 [facility] propionate 6-[address] (FLOVENT 13:57: (two) Hospita HFA) 110 05 times a l mcg/actuati day. on inhaler aspirin 2021-0 Yes 81mg QD Take 81 mg Meth daniel (ECOTRIN) 6-[address] 81 MG 13:57: daily. Hospita enteric 05 l coated tablet roflumilast 2021-0 Yes 500ug QD Take 500 M [facility]i (Daliresp) 6-[address] 500 mcg 13:57: mouth Hospita tablet 05 daily. l sertraline 2021-0 Yes 50mg QD Take 50 mg M [facility]i (ZOLOFT) 50 6-[address] MG tablet 13:57: daily. Hospit a 05 l predniSONE 2021-0 Yes 10mg QD Take 10 mg M ethodi (DELTASONE) 6-[address] 10 mg 13:57: daily. Hospita tablet 05 l lamoTRIgine 2-0 Yes 100mg Q.5D Take 100 M [facility]i (LaMICtal) 6-[address] 100 MG 13:57: mouth 2 Hospita tablet 05 (two) l times a day. busPIRone 2-0 Yes 15mg Q.5D Take 15 mg Me thodi (BUSPAR) 10 6-[address] MG tablet 13:57: (two) Hospita 05 times a l day. traZODone 2-0 Yes 100mg Take 100 [facility] (DESYREL) [...] 25 mg 24 hr day. tablet linaGLIPtin 2-0 Yes 5mg QD Take 5 mg M [...] 25 mg 24 hr day. tablet linaGLIPtin 0 Yes 5mg QD Take 5 mg M [...] Yes 1{puff} Q.5D Inhale 1 [facility] propionate -[address] (FLOVENT 13:57: (two) Hospita HFA) 110 05 times a l mcg/actuati day. on inhaler aspirin 0 Yes 81mg QD Take 81 mg Meth daniel (ECOTRIN) 6-[address] 81 MG 13:57: daily. Hospita enteric 05 l coated tablet roflumilast Yes 500ug QD Take 500 M [facility] (Daliresp) 07-[address] 500 mcg 13:57: mouth Hospita tablet 05 daily. l sertraline Yes 50mg QD Take 50 mg M ethodi (ZOLOFT) 50 07-[address] MG tablet 13:57: daily. Hospit a 05 l Lantus 0 No 10(3 Solostar 6-09 mL) U-100 00:00: Insulin 100 00 unit/mL (3 mL) subcutaneou s pen &lt 2021-0 No 6- 00:00: 00 &lt 2-0 No 6- 00:00: 00 Lantus 2021-0 No 10(3 Solostar 6-09 mL) U-100 00:00: Insulin 100 00 unit/mL (3 mL) subcutaneou s pen &lt 2021-0 No 6- 00:00: 00 &lt 2-0 No 6- 00:00: 00 Lantus 2021-0 No 10(3 Solostar 6-09 mL) U-100 00:00: Insulin 100 00 unit/mL (3 mL) subcutaneou s pen &lt 2021-0 No - 00:00: 00 &lt 2-0 No 6- 00:00: 00 Lantus 2021-0 No 10(3 Solostar 6-09 mL) U-100 00:00: Insulin 100 00 unit/mL (3 mL) subcutaneou s pen &lt 2021-0 No 6- 00:00: 00 &lt 2-0 No 6- 00:00: 00 &lt 2-0 No 6- 00:00: 00 &lt 2-0 No 6- 00:00: 00 &lt 2022-0 No 6-06 00:00: 00 &lt 2022-0 No 6-06 00:00: 00 &lt 2022-0 No 6-06 00:00: 00 &lt 2022-0 No 6-06 00:00: 00 &lt 2022-0 No 6-06 00:00: 00 &lt 2022-0 No 6-06 00:00: 00 &lt 2022-0 No 6-03 00:00: 00 &lt 2022-0 No 6-03 00:00: 00 Dose 2022-0 No Unknown 6-03 00:00: 00 &lt 2022-0 No 6-03 00:00: 00 &lt 2022-0 No 6-03 00:00: 00 &lt 2022-0 No 6-03 00:00: 00 &lt 2022-0 No 6-03 00:00: 00 &lt 2022-0 No 6-03 00:00: 00 &lt 2022-0 No 6-03 00:00: 00 Dose 2022-0 No Unknown 6-03 00:00: 00 &lt 2022-0 No 6-03 00:00: 00 &lt 2022-0 No 6-03 00:00: 00 &lt 2022-0 No 6-03 00:00: 00 &lt 2022-0 No 6-03 00:00: 00 &lt 2022-0 No 6-03 00:00: 00 &lt 2022-0 No 6-03 00:00: 00 Dose 2022-0 No Unknown 6-03 00:00: 00 &lt 2022-0 No 6-03 00:00: 00 &lt 2022-0 No 6-03 00:00: 00 &lt 2022-0 No 6-03 00:00: 00 &lt 2022-0 No 6-03 00:00: 00 &lt 2022-0 No 6-03 00:00: 00 &lt 2022-0 No 6-03 00:00: 00 Dose 2022-0 No Unknown 6-03 00:00: 00 &lt 2022-0 No 6-03 00:00: 00 &lt 2022-0 No 6-03 00:00: 00 &lt 2022-0 No 6-03 00:00: 00 &lt 2022-0 No 6-03 00:00: 00 ProAir HFA 2021-0 No 2mcg/ac 90 5-31 tuation mcg/actuati 00:00: on aerosol 00 inhaler Trelegy 2021-0 No 1mcg Ellipta 100 5-31 mcg-62.5 00:00: mcg-25 mcg 00 powder for inhalation clopidogrel 2021-0 No 1mg 75 mg 5-31 tablet 00:00: 00 Dose 2021-0 No Unknown 5-31 00:00: 00 albuterol 2-0 No 3/3 mL sulfate 2.5 5-31 (0.083 mg/3 mL 00:00: %) (0.083 %) 00 solution for nebulizatio n ipratropium 2021-0 No 3mg 0.5 5-31 base)/3 mg-albutero 00:00: mL l 3 mg (2.5 00 mg base)/3 mL nebulizatio n soln ProAir HFA 2021-0 No 2mcg/ac 90 5-31 tuation mcg/actuati 00:00: on aerosol 00 inhaler Trelegy 2021-0 No 1mcg Ellipta 100 5-31 mcg-62.5 00:00: mcg-25 mcg 00 powder for inhalation clopidogrel 2021-0 No 1mg 75 mg 5-31 tablet 00:00: 00 Dose 2021-0 No Unknown 5-31 00:00: 00 albuterol 2021-0 No 3/3 mL sulfate 2.5 5-31 (0.083 mg/3 mL 00:00: %) (0.083 %) 00 solution for nebulizatio n ipratropium 2021-0 No 3mg 0.5 5-31 base)/3 mg-albutero 00:00: mL l 3 mg (2.5 00 mg base)/3 mL nebulizatio n soln ProAir HFA 2021-0 No 2mcg/ac 90 5-31 tuation mcg/actuati 00:00: on aerosol 00 inhaler Trelegy 2021-0 No 1mcg Ellipta 100 5-31 mcg-62.5 00:00: mcg-25 mcg 00 powder for inhalation clopidogrel 2021-0 No 1mg 75 mg 5-31 tablet 00:00: 00 Mucinex DM 2021-0 No 1mg 60 mg-1,200 5-31 mg 00:00: tablet,exte 00 nded release 12 hr albuterol 2-0 No 3/3 mL sulfate 2.5 5-31 (0.083 mg/3 mL 00:00: %) (0.083 %) 00 solution for nebulizatio n ipratropium 2-0 No 3mg 0.5 5-31 base)/3 mg-albutero 00:00: mL l 3 mg (2.5 00 mg base)/3 mL nebulizatio n soln ProAir HFA 2021-0 No 2mcg/ac 90 5-31 tuation mcg/actuati 00:00: on aerosol 00 inhaler Trelegy 2021-0 No 1mcg Ellipta 100 5-31 mcg-62.5 00:00: mcg-25 mcg 00 powder for inhalation clopidogrel 2021-0 No 1mg 75 mg 5-31 tablet 00:00: 00 Dose 2021-0 No Unknown 5-31 00:00: 00 albuterol 2-0 No 3/3 mL sulfate 2.5 5-31 (0.083 mg/3 mL 00:00: %) (0.083 %) 00 solution for nebulizatio n ipratropium 2021-0 No 3mg 0.5 5-31 base)/3 mg-albutero 00:00: mL l 3 mg (2.5 00 mg base)/3 mL nebulizatio n soln buspirone 2-0 No mg 15 mg 5-26 tablet 00:00: 00 buspirone 2-0 No mg 15 mg 5-26 tablet 00:00: 00 buspirone 2-0 No mg 15 mg 5-26 tablet 00:00: 00 buspirone 2022-0 No mg 15 mg 5-26 tablet 00:00: 00 Zoloft 50 2-0 No 1mg mg tablet 5-24 00:00: 00 Lamictal 2022-0 No 1mg 100 mg 5-24 tablet 00:00: 00 buspirone 2022-0 No 1mg 15 mg 5-24 tablet 00:00: 00 Zoloft 50 2-0 No 1mg mg tablet 5-24 00:00: 00 Lamictal 2022-0 No 1mg 100 mg 5-24 tablet 00:00: 00 buspirone 2022-0 No 1mg 15 mg 5-24 tablet 00:00: 00 Zoloft 50 2022-0 No 1mg mg tablet 5-24 00:00: 00 Lamictal 2022-0 No 1mg 100 mg 5-24 tablet 00:00: 00 buspirone 2022-0 No 1mg 15 mg 5-24 tablet 00:00: 00 Zoloft 50 2022-0 No 1mg mg tablet 5-24 00:00: 00 Lamictal 2022-0 No 1mg 100 mg 5-24 tablet 00:00: 00 buspirone 2022-0 No 1mg 15 mg 5-24 tablet 00:00: 00 metoprolol 2022-0 No 1mg tartrate 25 5-07 mg tablet 00:00: 00 metoprolol 2022-0 No 1mg tartrate 25 5-07 mg tablet 00:00: 00 metoprolol 2022-0 No 1mg tartrate 25 5-07 mg tablet 00:00: 00 metoprolol 2022-0 No 1mg tartrate 25 5-07 mg tablet 00:00: 00 ProAir HFA 2-0 No 2mcg/ac 90 5-02 tuation mcg/actuati 00:00: on aerosol 00 inhaler Trelegy 2-0 No 1mcg Ellipta 100 5-02 mcg-62.5 00:00: mcg-25 mcg 00 powder for inhalation Dose 2-0 No Unknown 5-02 00:00: 00 Dose 2022-0 No Unknown 5-02 00:00: 00 Dose 2022-0 No Unknown 5-02 00:00: 00 Dose 2022-0 No Unknown 5-02 00:00: 00 Dose 2022-0 No Unknown 5-02 00:00: 00 ProAir HFA 2022-0 No 2mcg/ac 90 5-02 tuation mcg/actuati 00:00: on aerosol 00 inhaler Trelegy 2-0 No 1mcg Ellipta 100 5-02 mcg-62.5 00:00: mcg-25 mcg 00 powder for inhalation Dose 2-0 No Unknown 5-02 00:00: 00 Dose 2022-0 No Unknown 5-02 00:00: 00 Dose 2022-0 No Unknown 5-02 00:00: 00 Dose 2022-0 No Unknown 5-02 00:00: 00 Dose 2022-0 No Unknown 5-02 00:00: 00 ProAir HFA 2022-0 No 2mcg/ac 90 5-02 tuation mcg/actuati 00:00: on aerosol 00 inhaler Trelegy 2-0 No 1mcg Ellipta 100 5-02 mcg-62.5 00:00: mcg-25 mcg 00 powder for inhalation Dose 2022-0 No Unknown 5-02 00:00: 00 Dose 2022-0 No Unknown 5-02 00:00: 00 Dose 2022-0 No Unknown 5-02 00:00: 00 Dose 2022-0 No Unknown 5-02 00:00: 00 Dose 2022-0 No Unknown 5-02 00:00: 00 ProAir HFA 2-0 No 2mcg/ac 90 5-02 tuation mcg/actuati 00:00: on aerosol 00 inhaler Trelegy 2-0 No 1mcg Ellipta 100 5-02 mcg-62.5 00:00: mcg-25 mcg 00 powder for inhalation Dose 2-0 No Unknown 5-02 00:00: 00 Dose 2022-0 No Unknown 5-02 00:00: 00 Dose 2022-0 No Unknown 5-02 00:00: 00 Dose 2022-0 No Unknown 5-02 00:00: 00 Dose 2022-0 No Unknown 5-02 00:00: 00 Zoloft 50 2-0 No 1mg mg tablet 4-28 00:00: 00 Lamictal 2022-0 No 1mg 100 mg 4-28 tablet 00:00: 00 buspirone 2022-0 No 1mg 15 mg 4-28 tablet 00:00: 00 Zoloft 50 2022-0 No 1mg mg tablet 4-28 00:00: 00 Lamictal 2022-0 No 1mg 100 mg 4-28 tablet 00:00: 00 buspirone 2022-0 No 1mg 15 mg 4-28 tablet 00:00: 00 Zoloft 50 2022-0 No 1mg mg tablet 4-28 00:00: 00 Lamictal 2022-0 No 1mg 100 mg 4-28 tablet 00:00: 00 buspirone 2022-0 No 1mg 15 mg 4-28 tablet 00:00: 00 Zoloft 50 2022-0 No 1mg mg tablet 4-28 00:00: 00 Lamictal 2022-0 No 1mg 100 mg 4-28 tablet 00:00: 00 buspirone 2022-0 No 1mg 15 mg 4-28 tablet 00:00: 00 Dose 2022-0 No Unknown 4-19 00:00: 00 Dose 2022-0 No Unknown 4-19 00:00: 00 Dose 2022-0 No Unknown 4-19 00:00: 00 Dose 2022-0 No Unknown 4-19 00:00: 00 Zoloft 50 2022-0 No 1mg mg tablet 3-29 00:00: 00 Lamictal 2022-0 No 1mg 100 mg 3-29 tablet 00:00: 00 buspirone 2022-0 No 1mg 15 mg 3-29 tablet 00:00: 00 Zoloft 50 2022-0 No 1mg mg tablet 3-29 00:00: 00 Lamictal 2022-0 No 1mg 100 mg 3-29 tablet 00:00: 00 buspirone 2022-0 No 1mg 15 mg 3-29 tablet 00:00: 00 Zoloft 50 2-0 No 1mg mg tablet 3-29 00:00: 00 Lamictal 2022-0 No 1mg 100 mg 3-29 tablet 00:00: 00 buspirone 2022-0 No 1mg 15 mg 3-29 tablet 00:00: 00 Zoloft 50 2-0 No 1mg mg tablet 3-29 00:00: 00 Lamictal 2022-0 No 1mg 100 mg 3-29 tablet 00:00: 00 buspirone 2022-0 No 1mg 15 mg 3-29 tablet 00:00: 00 Daliresp 2022-0 No mcg 500 mcg 3-27 tablet 00:00: 00 Daliresp 2022-0 No mcg 500 mcg 3-27 tablet 00:00: 00 Daliresp 2022-0 No mcg 500 mcg 3-27 tablet 00:00: 00 Daliresp 2022-0 No mcg 500 mcg 3-27 tablet 00:00: 00 Dose 2022-0 No Unknown 3-24 00:00: 00 Dose 2022-0 No Unknown 3-24 00:00: 00 Dose 2022-0 No Unknown 3-24 00:00: 00 Dose 2022-0 No Unknown 3-24 00:00: 00 Dose 2022-0 No Unknown 3-24 00:00: 00 Dose 2022-0 No Unknown 3-24 00:00: 00 Dose 2022-0 No Unknown 3-24 00:00: 00 Dose 2022-0 No Unknown 3-24 00:00: 00 Dose 2022-0 No Unknown 3-24 00:00: 00 Dose 2022-0 No Unknown 3-24 00:00: 00 Dose 2022-0 No Unknown 3-24 00:00: 00 Dose 2022-0 No Unknown 3-24 00:00: 00 Dose 2022-0 No Unknown 3-24 00:00: 00 Dose 2022-0 No Unknown 3-24 00:00: 00 Dose 2022-0 No Unknown 3-24 00:00: 00 Dose 2022-0 No Unknown 3-24 00:00: 00 Dose 2022-0 No Unknown 3-24 00:00: 00 Dose 2022-0 No Unknown 3-24 00:00: 00 Dose 2022-0 No Unknown 3-24 00:00: 00 Dose 2022-0 No Unknown 3-24 00:00: 00 Dose 2022-0 No Unknown 3-24 00:00: 00 Dose 2022-0 No Unknown 3-24 00:00: 00 Dose 2022-0 No Unknown 3-24 00:00: 00 Dose 2022-0 No Unknown 3-24 00:00: 00 Dose 2022-0 No Unknown 3-24 00:00: 00 Dose 2022-0 No Unknown 3-24 00:00: 00 Dose 2022-0 No Unknown 3-24 00:00: 00 Dose 2022-0 No Unknown 3-24 00:00: 00 Dose 2022-0 No Unknown 3-24 00:00: 00 Dose 2022-0 No Unknown 3-24 00:00: 00 Dose 2022-0 No Unknown 3-24 00:00: 00 Dose 2022-0 No Unknown 3-24 00:00: 00 Dose 2022-0 No Unknown 3-24 00:00: 00 Dose 2022-0 No Unknown 3-24 00:00: 00 Dose 2022-0 No Unknown 3-24 00:00: 00 Dose 2022-0 No Unknown 3-24 00:00: 00 Dose 2022-0 No Unknown 3-24 00:00: 00 Dose 2022-0 No Unknown 3-24 00:00: 00 Dose 2022-0 No Unknown 3-24 00:00: 00 Dose 2022-0 No Unknown 3-24 00:00: 00 Dose 2022-0 No Unknown 3-24 00:00: 00 Dose 2022-0 No Unknown 3-24 00:00: 00 Dose 2022-0 No Unknown 3-24 00:00: 00 Dose 2022-0 No Unknown 3-24 00:00: 00 Dose 2022-0 No Unknown 3-24 00:00: 00 Dose 2022-0 No Unknown 3-24 00:00: 00 Dose 2022-0 No Unknown 3-24 00:00: 00 Dose 2022-0 No Unknown 3-24 00:00: 00 Dose 2022-0 No Unknown 3-24 00:00: 00 Dose 2022-0 No Unknown 3-24 00:00: 00 Dose 2022-0 No Unknown 3-24 00:00: 00 Dose 2022-0 No Unknown 3-24 00:00: 00 Dose 2022-0 No Unknown 3-24 00:00: 00 Dose 2022-0 No Unknown 3-24 00:00: 00 Dose 2022-0 No Unknown 3-24 00:00: 00 Dose 2022-0 No Unknown 3-24 00:00: 00 Dose 2022-0 No Unknown 3-24 00:00: 00 Dose 2022-0 No Unknown 3-24 00:00: 00 Dose 2022-0 No Unknown 3-24 00:00: 00 Dose 2022-0 No Unknown 3-24 00:00: 00 Dose 2022-0 No Unknown 3-24 00:00: 00 Dose 2022-0 No Unknown 3-24 00:00: 00 Dose 2022-0 No Unknown 3-24 00:00: 00 Dose 2022-0 No Unknown 3-24 00:00: 00 Dose 2022-0 No Unknown 3-24 00:00: 00 Dose 2022-0 No Unknown 3-24 00:00: 00 Dose 2022-0 No Unknown 3-24 00:00: 00 Dose 2022-0 No Unknown 3-24 00:00: 00 Dose 2022-0 No Unknown 3-24 00:00: 00 Dose 2022-0 No Unknown 3-24 00:00: 00 Dose 2022-0 No Unknown 3-24 00:00: 00 Dose 2022-0 No Unknown 3-24 00:00: 00 Dose 2022-0 No Unknown 3-24 00:00: 00 Dose 2022-0 No Unknown 3-24 00:00: 00 Dose 2022-0 No Unknown 3-24 00:00: 00 Dose 2022-0 No Unknown 3-24 00:00: 00 Dose 2022-0 No Unknown 3-24 00:00: 00 Dose 2022-0 No Unknown 3-24 00:00: 00 Dose 2022-0 No Unknown 3-24 00:00: 00 Dose 2022-0 No Unknown 3-24 00:00: 00 Dose 2022-0 No Unknown 3-23 00:00: 00 Dose 2022-0 No Unknown 3-23 00:00: 00 Dose 2022-0 No Unknown 3-23 00:00: 00 Dose 2022-0 No Unknown 3-23 00:00: 00 Dose 2022-0 No Unknown 3-23 00:00: 00 Dose 2022-0 No Unknown 3-23 00:00: 00 Dose 2022-0 No Unknown 3-23 00:00: 00 Dose 2022-0 No Unknown 3-23 00:00: 00 Dose 2022-0 No Unknown 3-23 00:00: 00 Dose 2022-0 No Unknown 3-23 00:00: 00 Dose 2022-0 No Unknown 3-23 00:00: 00 Dose 2022-0 No Unknown 3-23 00:00: 00 Dose 2022-0 No Unknown 3-23 00:00: 00 Dose 2022-0 No Unknown 3-23 00:00: 00 Dose 2022-0 No Unknown 3-23 00:00: 00 Dose 2022-0 No Unknown 3-23 00:00: 00 Dose 2022-0 No Unknown 3-23 00:00: 00 Dose 2022-0 No Unknown 3-23 00:00: 00 Dose 2022-0 No Unknown 3-23 00:00: 00 Dose 2022-0 No Unknown 3-23 00:00: 00 Dose 2022-0 No Unknown 3-23 00:00: 00 Dose 2022-0 No Unknown 3-23 00:00: 00 Dose 2022-0 No Unknown 3-23 00:00: 00 Dose 2022-0 No Unknown 3-23 00:00: 00 Dose 2022-0 No Unknown 3-23 00:00: 00 Dose 2022-0 No Unknown 3-23 00:00: 00 Dose 2022-0 No Unknown 3-23 00:00: 00 Dose 2022-0 No Unknown 3-23 00:00: 00 Dose 2022-0 No Unknown 3-23 00:00: 00 Dose 2022-0 No Unknown 3-23 00:00: 00 Dose 2022-0 No Unknown 3-23 00:00: 00 Dose 2022-0 No Unknown 3-23 00:00: 00 Dose 2022-0 No Unknown 3-23 00:00: 00 Dose 2022-0 No Unknown 3-23 00:00: 00 Dose 2022-0 No Unknown 3-23 00:00: 00 Dose 2022-0 No Unknown 3-23 00:00: 00 Dose 2022-0 No Unknown 3-23 00:00: 00 Dose 2022-0 No Unknown 3-23 00:00: 00 Dose 2022-0 No Unknown 3-23 00:00: 00 Dose 2022-0 No Unknown 3-23 00:00: 00 Dose 2022-0 No Unknown 3-23 00:00: 00 Dose 2022-0 No Unknown 3-23 00:00: 00 Dose 2022-0 No Unknown 3-23 00:00: 00 Dose 2022-0 No Unknown 3-23 00:00: 00 Dose 2022-0 No Unknown 3-23 00:00: 00 Dose 2022-0 No Unknown 3-23 00:00: 00 Dose 2022-0 No Unknown 3-23 00:00: 00 Dose 2022-0 No Unknown 3-23 00:00: 00 Dose 2022-0 No Unknown 3-23 00:00: 00 Dose 2022-0 No Unknown 3-23 00:00: 00 Dose 2022-0 No Unknown 3-23 00:00: 00 Dose 2022-0 No Unknown 3-23 00:00: 00 Dose 2022-0 No Unknown 3-23 00:00: 00 Dose 2022-0 No Unknown 3-23 00:00: 00 Dose 2022-0 No Unknown 3-23 00:00: 00 Dose 2022-0 No Unknown 3-23 00:00: 00 Dose 2022-0 No Unknown 3-23 00:00: 00 Dose 2022-0 No Unknown 3-23 00:00: 00 Dose 2022-0 No Unknown 3-23 00:00: 00 Dose 2022-0 No Unknown 3-23 00:00: 00 Dose 2022-0 No Unknown 3-23 00:00: 00 Dose 2022-0 No Unknown 3-23 00:00: 00 Dose 2022-0 No Unknown 3-23 00:00: 00 Dose 2022-0 No Unknown 3-23 00:00: 00 Dose 2022-0 No Unknown 3-23 00:00: 00 Dose 2022-0 No Unknown 3-23 00:00: 00 Dose 2022-0 No Unknown 3-23 00:00: 00 Dose 2022-0 No Unknown 3-23 00:00: 00 Dose 2022-0 No Unknown 3-23 00:00: 00 Dose 2022-0 No Unknown 3-23 00:00: 00 Dose 2022-0 No Unknown 3-23 00:00: 00 Dose 2022-0 No Unknown 3-23 00:00: 00 Dose 2022-0 No Unknown 3-23 00:00: 00 Dose 2022-0 No Unknown 3-23 00:00: 00 Dose 2022-0 No Unknown 3-23 00:00: 00 Dose 2022-0 No Unknown 3-23 00:00: 00 Dose 2022-0 No Unknown 3-23 00:00: 00 Dose 2022-0 No Unknown 3-23 00:00: 00 Dose 2022-0 No Unknown 3-23 00:00: 00 Dose 2022-0 No Unknown 3-23 00:00: 00 Dose 2022-0 No Unknown 3-23 00:00: 00 Dose 2022-0 No Unknown 3-23 00:00: 00 Dose 2022-0 No Unknown 3-23 00:00: 00 Dose 2022-0 No Unknown 3-23 00:00: 00 Dose 2022-0 No Unknown 3-23 00:00: 00 Dose 2022-0 No Unknown 3-23 00:00: 00 Dose 2022-0 No Unknown 3-23 00:00: 00 Dose 2022-0 No Unknown 3-23 00:00: 00 Dose 2022-0 No Unknown 3-23 00:00: 00 Dose 2022-0 No Unknown 3-23 00:00: 00 Dose 2022-0 No Unknown 3-23 00:00: 00 Dose 2-0 No Unknown 3-23 00:00: 00 Dose 2022-0 No Unknown 3-23 00:00: 00 Dose 2022-0 No Unknown 3-23 00:00: 00 Dose 2022-0 No Unknown 3-23 00:00: 00 Dose 2-0 No Unknown 3-23 00:00: 00 Dose 2-0 No Unknown 3-23 00:00: 00 Dose 2-0 No Unknown 3-23 00:00: 00 Dose 2-0 No Unknown 3-23 00:00: 00 Dose 2-0 No Unknown 3-23 00:00: 00 Dose 2-0 No Unknown 3-23 00:00: 00 Dose 2-0 No Unknown 3-23 00:00: 00 Dose 2-0 No Unknown 3-23 00:00: 00 Dose 2-0 No Unknown 3-23 00:00: 00 Dose 2-0 No Unknown 3-21 00:00: 00 Dose 2-0 No Unknown 3-21 00:00: 00 Dose 2-0 No Unknown 3-21 00:00: 00 Dose 2-0 No Unknown 3-21 00:00: 00 Dose 2-0 No Unknown 3-19 00:00: 00 Dose 2022-0 No Unknown 3-19 00:00: 00 Dose 2-0 No Unknown 3-19 00:00: 00 Dose 2-0 No Unknown 3-19 00:00: 00 clopidogrel 2-0 No 1mg 75 mg 3-17 tablet 00:00: 00 Dose 2-0 No Unknown 3-17 00:00: 00 metoprolol 2-0 No 1mg tartrate 25 3-17 mg tablet 00:00: 00 atorvastati 2-0 No 1mg n 80 mg 3-17 tablet 00:00: 00 esomeprazol 2-0 No 1mg e magnesium 3-17 40 mg 00:00: capsule,del 00 ayed release ipratropium 2-0 No 3mg 0.5 3-17 base)/3 mg-albutero 00:00: mL l 3 mg (2.5 00 mg base)/3 mL nebulizatio n soln clopidogrel 2-0 No 1mg 75 mg 3-17 tablet 00:00: 00 Dose 2022-0 No Unknown 3-17 00:00: 00 metoprolol 2022-0 No 1mg tartrate 25 3-17 mg tablet 00:00: 00 atorvastati 2022-0 No 1mg n 80 mg 3-17 tablet 00:00: 00 esomeprazol 2022-0 No 1mg e magnesium 3-17 40 mg 00:00: capsule,del 00 ayed release ipratropium 2-0 No 3mg 0.5 3-17 base)/3 mg-albutero 00:00: mL l 3 mg (2.5 00 mg base)/3 mL nebulizatio n soln clopidogrel 2-0 No 1mg 75 mg 3-17 tablet 00:00: 00 Dose 2-0 No Unknown 3-17 00:00: 00 metoprolol 2022-0 No 1mg tartrate 25 3-17 mg tablet 00:00: 00 atorvastati 2-0 No 1mg n 80 mg 3-17 tablet 00:00: 00 esomeprazol 2-0 No 1mg e magnesium 3-17 40 mg 00:00: capsule,del 00 ayed release ipratropium 2-0 No 3mg 0.5 3-17 base)/3 mg-albutero 00:00: mL l 3 mg (2.5 00 mg base)/3 mL nebulizatio n soln clopidogrel 2-0 No 1mg 75 mg 3-17 tablet 00:00: 00 Dose 2022-0 No Unknown 3-17 00:00: 00 metoprolol 2022-0 No 1mg tartrate 25 3-17 mg tablet 00:00: 00 atorvastati 2022-0 No 1mg n 80 mg 3-17 tablet 00:00: 00 esomeprazol 2022-0 No 1mg e magnesium 3-17 40 mg 00:00: capsule,del 00 ayed release ipratropium 2022-0 No 3mg 0.5 3-17 base)/3 mg-albutero 00:00: mL l 3 mg (2.5 00 mg base)/3 mL nebulizatio n soln Dose 2-0 No Unknown 3-14 00:00: 00 cefdinir 2022-0 No mg 300 mg 3-14 capsule 00:00: 00 Dose 2-0 No Unknown 3-14 00:00: 00 cefdinir 2022-0 No mg 300 mg 3-14 capsule 00:00: 00 Dose 2-0 No Unknown 3-14 00:00: 00 cefdinir 2022-0 No mg 300 mg 3-14 capsule 00:00: 00 Dose 2022-0 No Unknown 3-14 00:00: 00 cefdinir 2022-0 No mg 300 mg 3-14 capsule 00:00: 00 metformin 2-0 No 1mg 1,000 mg 3-12 tablet 00:00: 00 metformin 2022-0 No 1mg 1,000 mg 3-12 tablet 00:00: 00 metformin 2022-0 No 1mg 1,000 mg 3-12 tablet 00:00: 00 metformin 2022-0 No 1mg 1,000 mg 3-12 tablet 00:00: 00 metformin 2022-0 No 1mg 1,000 mg 3-11 tablet 00:00: 00 Dose 2022-0 No Unknown 3-11 00:00: 00 Dose 2-0 No Unknown 3-11 00:00: 00 Dose 2-0 No Unknown 3-11 00:00: 00 Dose 2-0 No Unknown 3-11 00:00: 00 Dose 2022-0 No Unknown 3-11 00:00: 00 Dose 2-0 No Unknown 3-11 00:00: 00 Dose 2022-0 No Unknown 3-11 00:00: 00 Dose 2022-0 No Unknown 3-11 00:00: 00 Dose 2-0 No Unknown 3-11 00:00: 00 Dose 2-0 No Unknown 3-11 00:00: 00 Dose 2-0 No Unknown 3-11 00:00: 00 Dose 2-0 No Unknown 3-11 00:00: 00 Dose 2-0 No Unknown 3-11 00:00: 00 metformin 2022-0 No 1mg 1,000 mg 3-11 tablet 00:00: 00 Dose 2022-0 No Unknown 3-11 00:00: 00 Dose 2022-0 No Unknown 3-11 00:00: 00 Dose 2022-0 No Unknown 3-11 00:00: 00 Dose 2022-0 No Unknown 3-11 00:00: 00 Dose 2022-0 No Unknown 3-11 00:00: 00 Dose 2022-0 No Unknown 3-11 00:00: 00 Dose 2022-0 No Unknown 3-11 00:00: 00 Dose 2022-0 No Unknown 3-11 00:00: 00 Dose 2022-0 No Unknown 3-11 00:00: 00 Dose 2-0 No Unknown 3-11 00:00: 00 Dose 2022-0 No Unknown 3-11 00:00: 00 Dose 2-0 No Unknown 3-11 00:00: 00 Dose 2-0 No Unknown 3-11 00:00: 00 metformin 2-0 No 1mg 1,000 mg 3-11 tablet 00:00: 00 Dose 2-0 No Unknown 3-11 00:00: 00 Dose 2022-0 No Unknown 3-11 00:00: 00 Dose 2022-0 No Unknown 3-11 00:00: 00 Dose 2022-0 No Unknown 3-11 00:00: 00 Dose 2-0 No Unknown 3-11 00:00: 00 Dose 2022-0 No Unknown 3-11 00:00: 00 Dose 2-0 No Unknown 3-11 00:00: 00 Dose 2-0 No Unknown 3-11 00:00: 00 Dose 2022-0 No Unknown 3-11 00:00: 00 Dose 2022-0 No Unknown 3-11 00:00: 00 Dose 2022-0 No Unknown 3-11 00:00: 00 Dose 2-0 No Unknown 3-11 00:00: 00 Dose 2022-0 No Unknown 3-11 00:00: 00 metformin 2022-0 No 1mg 1,000 mg 3-11 tablet 00:00: 00 Dose 2-0 No Unknown 3-11 00:00: 00 Dose 2-0 No Unknown 3-11 00:00: 00 Dose 2022-0 No Unknown 3-11 00:00: 00 Dose 2022-0 No Unknown 3-11 00:00: 00 Dose 2022-0 No Unknown 3-11 00:00: 00 Dose 2022-0 No Unknown 3-11 00:00: 00 Dose 2022-0 No Unknown 3-11 00:00: 00 Dose 2022-0 No Unknown 3-11 00:00: 00 Dose 2022-0 No Unknown 3-11 00:00: 00 Dose 2022-0 No Unknown 3-11 00:00: 00 Dose 2022-0 No Unknown 3-11 00:00: 00 Dose 2022-0 No Unknown 3-11 00:00: 00 Dose 2022-0 No Unknown 3-11 00:00: 00 levofloxaci 2022-0 No mg n 750 mg 3-10 tablet 00:00: 00 levofloxaci 2022-0 No mg n 750 mg 3-10 tablet 00:00: 00 levofloxaci 2022-0 No mg n 750 mg 3-10 tablet 00:00: 00 levofloxaci 2022-0 No mg n 750 mg 3-10 tablet 00:00: 00 levalbutero 2022-0 No 3mg/3 l 1.25 mg/3 2-07 mL mL solution 00:00: for 00 nebulizatio n levalbutero 2022-0 No 3mg/3 l 1.25 mg/3 2-07 mL mL solution 00:00: for 00 nebulizatio n levalbutero 2022-0 No 3mg/3 l 1.25 mg/3 2-07 mL mL solution 00:00: for 00 nebulizatio n levalbutero 2022-0 No 3mg/3 l 1.25 mg/3 2-07 mL mL solution 00:00: for 00 nebulizatio n Xopenex 2022-0 No 3mg/3 1.25 mg/3 2-04 mL mL solution 00:00: for 00 nebulizatio n Dose 2022-0 No Unknown 2-04 00:00: 00 Dose 2022-0 No Unknown 2-04 00:00: 00 Dose 2022-0 No Unknown 2-04 00:00: 00 Xopenex 2022-0 No 3mg/3 1.25 mg/3 2-04 mL mL solution 00:00: for 00 nebulizatio n Dose 2022-0 No Unknown 2-04 00:00: 00 Dose 2022-0 No Unknown 2-04 00:00: 00 Dose 2022-0 No Unknown 2-04 00:00: 00 Xopenex 2022-0 No 3mg/3 1.25 mg/3 2-04 mL mL solution 00:00: for 00 nebulizatio n Dose 2022-0 No Unknown 2-04 00:00: 00 Dose 2022-0 No Unknown 2-04 00:00: 00 Dose 2022-0 No Unknown 2-04 00:00: 00 Xopenex 2022-0 No 3mg/3 1.25 mg/3 2-04 mL mL solution 00:00: for 00 nebulizatio n Dose 2022-0 No Unknown 2-04 00:00: 00 Dose 2022-0 No Unknown 2-04 00:00: 00 Dose 2022-0 No Unknown 2-04 00:00: 00 Dose 2022-0 No Unknown 1-13 00:00: 00 Lamictal 2022-0 No 1mg 100 mg 1-13 tablet 00:00: 00 buspirone 2022-0 No 1mg 15 mg 1-13 tablet 00:00: 00 Dose 2022-0 No Unknown 1-13 00:00: 00 Lamictal 2022-0 No 1mg 100 mg 1-13 tablet 00:00: 00 buspirone 2022-0 No 1mg 15 mg 1-13 tablet 00:00: 00 Dose 2022-0 No Unknown 1-13 00:00: 00 Lamictal 2022-0 No 1mg 100 mg 1-13 tablet 00:00: 00 buspirone 2022-0 No 1mg 15 mg 1-13 tablet 00:00: 00 Dose 2022-0 No Unknown 1-13 00:00: 00 Lamictal 2022-0 No 1mg 100 mg 1-13 tablet 00:00: 00 buspirone 2022-0 No 1mg 15 mg 1-13 tablet 00:00: 00 Daliresp 2022-0 No 1mcg 500 mcg 1-07 tablet 00:00: 00 Daliresp 2022-0 No 1mcg 500 mcg 1-07 tablet 00:00: 00 Daliresp 2022-0 No 1mcg 500 mcg 1-07 tablet 00:00: 00 Daliresp 2022-0 No 1mcg 500 mcg 1-07 tablet 00:00: 00 clopidogrel 2022-0 No 1mg 75 mg 1-05 tablet 00:00: 00 clopidogrel 2022-0 No 1mg 75 mg 1-05 tablet 00:00: 00 clopidogrel 2-0 No 1mg 75 mg 1-05 tablet 00:00: 00 clopidogrel 2-0 No 1mg 75 mg 1-05 tablet 00:00: 00 Dose 2020-1 No Unknown 1-24 00:00: 00 Dose 2020-1 No Unknown 1-24 00:00: 00 Dose 2020-1 No Unknown 1-24 00:00: 00 Dose 2020-1 No Unknown 1-24 00:00: 00 Dose 2020-1 No Unknown 1-17 00:00: 00 Dose 2020-1 No Unknown 1-17 00:00: 00 Dose 2020-1 No Unknown 1-17 00:00: 00 Dose 2020-1 No Unknown 1-17 00:00: 00 Lamictal 2020-1 No 1mg 100 mg 1-11 tablet 00:00: 00 Dose 2020-1 No Unknown 1-11 00:00: 00 trazodone 2020-1 No 15mg 100 mg 1-11 tablet 00:00: 00 buspirone 2020-1 No 1mg 15 mg 1-11 tablet 00:00: 00 Dose 2020-1 No Unknown 1-11 00:00: 00 Lamictal 2020-1 No 1mg 100 mg 1-11 tablet 00:00: 00 Dose 2020-1 No Unknown 1-11 00:00: 00 trazodone 2020-1 No 15mg 100 mg 1-11 tablet 00:00: 00 buspirone 2020-1 No 1mg 15 mg 1-11 tablet 00:00: 00 Dose 2020-1 No Unknown 1-11 00:00: 00 Lamictal 2020-1 No 1mg 100 mg 1-11 tablet 00:00: 00 Dose 2020-1 No Unknown 1-11 00:00: 00 trazodone 2020-1 No 15mg 100 mg 1-11 tablet 00:00: 00 buspirone 2020-1 No 1mg 15 mg 1-11 tablet 00:00: 00 Dose 2020-1 No Unknown 1-11 00:00: 00 Lamictal 2020-1 No 1mg 100 mg 1-11 tablet 00:00: 00 Dose 2020-1 No Unknown 1-11 00:00: 00 trazodone 2021-1 No 15mg 100 mg 1-11 tablet 00:00: 00 buspirone 2020-02 No 1mg 15 mg 1-11 tablet 00:00: 00 Dose 2020- No Unknown 1-11 00:00: 00 Tradjenta 5 2020-02 No 1mg mg tablet 0-21 00:00: 00 metoprolol 2020-02 No 1mg tartrate 25 0-21 mg tablet 00:00: 00 atorvastati 2020-02 No 1mg n 80 mg 0-21 tablet 00:00: 00 Tradjenta 5 2020-02 No 1mg mg tablet 0-21 00:00: 00 Tradjenta 5 2020-02 No 1mg mg tablet 0-21 00:00: 00 metoprolol 2020-02 No 1mg tartrate 25 0-21 mg tablet 00:00: 00 atorvastati 2020-02 No 1mg n 80 mg 0-21 tablet 00:00: 00 metoprolol 2020-02 No 1mg tartrate 25 0-21 mg tablet 00:00: 00 atorvastati 2020-02 No 1mg n 80 mg 0-21 tablet 00:00: 00 Tradjenta 5 2020-02 No 1mg mg tablet 0-21 00:00: 00 metoprolol 2020-02 No 1mg tartrate 25 0-21 mg tablet 00:00: 00 atorvastati 2020-02 No 1mg n 80 mg 0-21 tablet 00:00: 00 ipratropium 2020-02 No 3mg 0.5 0-12 base)/3 mg-albutero 00:00: mL l 3 mg (2.5 00 mg base)/3 mL nebulizatio n soln ipratropium 2020-02 No 3mg 0.5 0-12 base)/3 mg-albutero 00:00: mL l 3 mg (2.5 00 mg base)/3 mL nebulizatio n soln ipratropium 2020-02 No 3mg 0.5 0-12 base)/3 mg-albutero 00:00: mL l 3 mg (2.5 00 mg base)/3 mL nebulizatio n soln ipratropium 2020-02 No 3mg 0.5 0-12 base)/3 mg-albutero 00:00: mL l 3 mg (2.5 00 mg base)/3 mL nebulizatio n soln Lamictal 2020-02 No 1mg 100 mg 0-08 tablet 00:00: 00 trazodone 1 No 15mg 100 mg 0-08 tablet 00:00: 00 buspirone 2020-02 No 1mg 15 mg 0-08 tablet 00:00: 00 Prozac 20 2020-02 No 1mg mg capsule 0-08 00:00: 00 Lamictal 2020-02 No 1mg 100 mg 0-08 tablet 00:00: 00 trazodone 1 No 15mg 100 mg 0-08 tablet 00:00: 00 buspirone 1 No 1mg 15 mg 0-08 tablet 00:00: 00 Prozac 20 2020-02 No 1mg mg capsule 0-08 00:00: 00 Lamictal 2020-02 No 1mg 100 mg 0-08 tablet 00:00: 00 trazodone 2020-02 No 15mg 100 mg 0-08 tablet 00:00: 00 buspirone 1 No 1mg 15 mg 0-08 tablet 00:00: 00 Prozac 20 1 No 1mg mg capsule 0-08 00:00: 00 Lamictal 1 No 1mg 100 mg 0-08 tablet 00:00: 00 trazodone 1 No 15mg 100 mg 0-08 tablet 00:00: 00 buspirone 2020-1 No 1mg 15 mg 0-08 tablet 00:00: 00 Prozac 20 1 No 1mg mg capsule 0-08 00:00: 00 Dose 2020-0 No Unknown 9- 00:00: 00 Dose 2020-0 No Unknown - 00:00: 00 Dose 2020-0 No Unknown - 00:00: 00 Dose 2020-0 No Unknown - 00:00: 00 Dose 2020-0 No Unknown - 00:00: 00 Dose 2020-0 No Unknown - 00:00: 00 Dose 2020-0 No Unknown - 00:00: 00 Dose 2020-0 No Unknown - 00:00: 00 Lamictal 2021-0 No 1mg 100 mg 9-13 tablet 00:00: 00 trazodone 2021-0 No 15mg 100 mg 9-13 tablet 00:00: 00 buspirone 2021-0 No 1mg 15 mg 9-13 tablet 00:00: 00 Prozac 20 1-0 No 1mg mg capsule 9-13 00:00: 00 Lamictal 2021-0 No 1mg 100 mg 9-13 tablet 00:00: 00 trazodone 2021-0 No 15mg 100 mg 9-13 tablet 00:00: 00 buspirone 2021-0 No 1mg 15 mg 9-13 tablet 00:00: 00 Prozac 20 1-0 No 1mg mg capsule 9-13 00:00: 00 Lamictal 2021-0 No 1mg 100 mg 9-13 tablet 00:00: 00 trazodone 2021-0 No 15mg 100 mg 9-13 tablet 00:00: 00 buspirone 2021-0 No 1mg 15 mg 9-13 tablet 00:00: 00 Prozac 20 1-0 No 1mg mg capsule 9-13 00:00: 00 Lamictal 1-0 No 1mg 100 mg 9-13 tablet 00:00: 00 trazodone 1-0 No 15mg 100 mg 9-13 tablet 00:00: 00 buspirone 2021-0 No 1mg 15 mg 9-13 tablet 00:00: 00 Prozac 20 1-0 No 1mg mg capsule 9-13 00:00: 00 Lamictal 1-0 No 1mg 100 mg 8-30 tablet 00:00: 00 trazodone 2021-0 No 15mg 100 mg 8-30 tablet 00:00: 00 buspirone 2021-0 No 1mg 15 mg 8-30 tablet 00:00: 00 Prozac 20 1-0 No 1mg mg capsule 8-30 00:00: 00 Lamictal 2021-0 No 1mg 100 mg 8-30 tablet 00:00: 00 trazodone 2021-0 No 15mg 100 mg 8-30 tablet 00:00: 00 buspirone 2021-0 No 1mg 15 mg 8-30 tablet 00:00: 00 Prozac 20 2021-0 No 1mg mg capsule 10-07 00:00: 00 Lamictal 2021-0 No 1mg 100 mg 8-30 tablet 00:00: 00 trazodone 2021-0 No 15mg 100 mg 8-30 tablet 00:00: 00 buspirone 2021-0 No 1mg 15 mg 8-30 tablet 00:00: 00 Prozac 20 1-0 No 1mg mg capsule 10-07 00:00: 00 Lamictal 1-0 No 1mg 100 mg 8-30 tablet 00:00: 00 trazodone 2021-0 No 15mg 100 mg 8-30 tablet 00:00: 00 buspirone 2021-0 No 1mg 15 mg 8-30 tablet 00:00: 00 Prozac 20 1-0 No 1mg mg capsule 10-07 00:00: 00 Lamictal 1-0 No 1mg 100 mg 8-02 tablet 00:00: 00 trazodone 1-0 No 15mg 100 mg 8-02 tablet 00:00: 00 buspirone 1-0 No 1mg 15 mg 8-02 tablet 00:00: 00 Prozac 20 1-0 No 1mg mg capsule 09-09 00:00: 00 Lamictal 1-0 No 1mg 100 mg 8-02 tablet 00:00: 00 trazodone 1-0 No 15mg 100 mg 8-02 tablet 00:00: 00 buspirone 2021-0 No 1mg 15 mg 8-02 tablet 00:00: 00 Prozac 20 1-0 No 1mg mg capsule 09-09 00:00: 00 Lamictal 1-0 No 1mg 100 mg 8-02 tablet 00:00: 00 trazodone 2021-0 No 15mg 100 mg 8-02 tablet 00:00: 00 buspirone 2021-0 No 1mg 15 mg 8-02 tablet 00:00: 00 Prozac 20 1-0 No 1mg mg capsule 09-09 00:00: 00 Lamictal 2021-0 No 1mg 100 mg 8-02 tablet 00:00: 00 trazodone 2021-0 No 15mg 100 mg 8-02 tablet 00:00: 00 buspirone 2021-0 No 1mg 15 mg 8-02 tablet 00:00: 00 Prozac 20 1-0 No 1mg mg capsule 09-09 00:00: 00 Dose 1-0 No Unknown 7 00:00: 00 Dose 1-0 No Unknown 09-03 00:00: 00 Dose 1-0 No Unknown 09-03 00:00: 00 Dose 1-0 No Unknown 7 00:00: 00 Flovent HFA 2020-0 No 1mcg/ac 110 7-08 tuation mcg/actuati 00:00: on aerosol 00 inhaler Dose 1-0 No Unknown 7- 00:00: 00 Dose 1-0 No Unknown 7- 00:00: 00 metoprolol 1-0 No 1mg tartrate 25 7-08 mg tablet 00:00: 00 atorvastati 1-0 No 1mg n 80 mg 7-08 tablet 00:00: 00 Dose 1-0 No Unknown 7- 00:00: 00 Flovent HFA 2020-0 No 1mcg/ac 110 7-08 tuation mcg/actuati 00:00: on aerosol 00 inhaler Dose 1-0 No Unknown 7- 00:00: 00 Dose 1-0 No Unknown 7- 00:00: 00 metoprolol 1-0 No 1mg tartrate 25 7-08 mg tablet 00:00: 00 atorvastati 1-0 No 1mg n 80 mg 7-08 tablet 00:00: 00 Dose 1-0 No Unknown 7- 00:00: 00 Flovent HFA 1-0 No 1mcg/ac 110 7-08 tuation mcg/actuati 00:00: on aerosol 00 inhaler Dose 1-0 No Unknown 7- 00:00: 00 Dose 1-0 No Unknown 7- 00:00: 00 metoprolol 1-0 No 1mg tartrate 25 7-08 mg tablet 00:00: 00 atorvastati 1-0 No 1mg n 80 mg 7-08 tablet 00:00: 00 Dose 1-0 No Unknown 7-08 00:00: 00 Flovent HFA 1-0 No 1mcg/ac 110 7-08 tuation mcg/actuati 00:00: on aerosol 00 inhaler Dose 1-0 No Unknown 7-08 00:00: 00 Dose 2021-0 No Unknown 7-08 00:00: 00 metoprolol 2021-0 No 1mg tartrate 25 7-08 mg tablet 00:00: 00 atorvastati 1-0 No 1mg n 80 mg 7-08 tablet 00:00: 00 Dose 2021-0 No Unknown 7-08 00:00: 00 Lamictal 2021-0 No 1mg 100 mg 7-05 tablet 00:00: 00 trazodone 2021-0 No 15mg 100 mg 7-05 tablet 00:00: 00 buspirone 2021-0 No 1mg 15 mg 7-05 tablet 00:00: 00 Prozac 20 1-0 No 1mg mg capsule 7-05 00:00: 00 Lamictal 2021-0 No 1mg 100 mg 7-05 tablet 00:00: 00 trazodone 2021-0 No 15mg 100 mg 7-05 tablet 00:00: 00 buspirone 2021-0 No 1mg 15 mg 7-05 tablet 00:00: 00 Prozac 20 1-0 No 1mg mg capsule 7-05 00:00: 00 Lamictal 2021-0 No 1mg 100 mg 7-05 tablet 00:00: 00 trazodone 2021-0 No 15mg 100 mg 7-05 tablet 00:00: 00 buspirone 2021-0 No 1mg 15 mg 7-05 tablet 00:00: 00 Prozac 20 1-0 No 1mg mg capsule 7-05 00:00: 00 Lamictal 1-0 No 1mg 100 mg 7-05 tablet 00:00: 00 trazodone 2021-0 No 15mg 100 mg 7-05 tablet 00:00: 00 buspirone 2021-0 No 1mg 15 mg 7-05 tablet 00:00: 00 Prozac 20 1-0 No 1mg mg capsule 7-05 00:00: 00 Trelegy 1-0 No 1mcg Ellipta 100 7-02 mcg-62.5 00:00: mcg-25 mcg 00 powder for inhalation Trelegy 1-0 No 1mcg Ellipta 100 7-02 mcg-62.5 00:00: mcg-25 mcg 00 powder for inhalation Trelegy 1-0 No 1mcg Ellipta 100 7-02 mcg-62.5 00:00: mcg-25 mcg 00 powder for inhalation Trelegy 1-0 No 1mcg Ellipta 100 7-02 mcg-62.5 00:00: mcg-25 mcg 00 powder for inhalation Lamictal 2021-0 No 1mg 100 mg 5-25 tablet 00:00: 00 trazodone 2021-0 No 15mg 100 mg 5-25 tablet 00:00: 00 buspirone 2021-0 No 1mg 15 mg 5-25 tablet 00:00: 00 Prozac 20 1-0 No 1mg mg capsule 5-25 00:00: 00 Lamictal 2021-0 No 1mg 100 mg 5-25 tablet 00:00: 00 trazodone 2021-0 No 15mg 100 mg 5-25 tablet 00:00: 00 buspirone 2021-0 No 1mg 15 mg 5-25 tablet 00:00: 00 Prozac 20 1-0 No 1mg mg capsule 5-25 00:00: 00 Lamictal 2021-0 No 1mg 100 mg 5-25 tablet 00:00: 00 trazodone 2021-0 No 15mg 100 mg 5-25 tablet 00:00: 00 buspirone 2021-0 No 1mg 15 mg 5-25 tablet 00:00: 00 Prozac 20 1-0 No 1mg mg capsule 5-25 00:00: 00 Lamictal 2021-0 No 1mg 100 mg 5-25 tablet 00:00: 00 trazodone 2021-0 No 15mg 100 mg 5-25 tablet 00:00: 00 buspirone 2021-0 No 1mg 15 mg 5-25 tablet 00:00: 00 Prozac 20 1-0 No 1mg mg capsule 5-25 00:00: 00 Lamictal 2021-0 No 1mg 100 mg 4-23 tablet 00:00: 00 Dose 2021-0 No Unknown 4-23 00:00: 00 trazodone 2021-0 No 15mg 100 mg 4-23 tablet 00:00: 00 Prozac 20 2021-0 No 1mg mg capsule 4-23 00:00: 00 Lamictal 2021-0 No 1mg 100 mg 4-23 tablet 00:00: 00 Dose 1-0 No Unknown 4-23 00:00: 00 trazodone 1-0 No 15mg 100 mg 4-23 tablet 00:00: 00 Prozac 20 1-0 No 1mg mg capsule 4-23 00:00: 00 Lamictal 2021-0 No 1mg 100 mg 4-23 tablet 00:00: 00 Dose 1-0 No Unknown 4-23 00:00: 00 trazodone 1-0 No 15mg 100 mg 4-23 tablet 00:00: 00 Prozac 20 1-0 No 1mg mg capsule 4-23 00:00: 00 Lamictal 1-0 No 1mg 100 mg 4-23 tablet 00:00: 00 Dose 1-0 No Unknown 4-23 00:00: 00 trazodone 1-0 No 15mg 100 mg 4-23 tablet 00:00: 00 Prozac 20 1-0 No 1mg mg capsule 4-23 00:00: 00 Dose 1-0 No Unknown 4-07 00:00: 00 Dose 1-0 No Unknown 4-07 00:00: 00 Anoro 1-0 No 1mcg/ac Ellipta 4-07 tuation 62.5 mcg-25 00:00: mcg/actuati 00 on powder for inhalation Dose 2020-0 No Unknown 4-07 00:00: 00 Dose 1-0 No Unknown 4-07 00:00: 00 Dose 1-0 No Unknown 4-07 00:00: 00 Dose 1-0 No Unknown 4-07 00:00: 00 Dose 1-0 No Unknown 4-07 00:00: 00 Dose 1-0 No Unknown 4-07 00:00: 00 Dose 1-0 No Unknown 4-07 00:00: 00 Anoro 1-0 No 1mcg/ac Ellipta 4-07 tuation 62.5 mcg-25 00:00: mcg/actuati 00 on powder for inhalation Dose 1-0 No Unknown 4-07 00:00: 00 Dose 1-0 No Unknown 4-07 00:00: 00 Dose 1-0 No Unknown 4-07 00:00: 00 Dose 1-0 No Unknown 4-07 00:00: 00 Dose 2021-0 No Unknown 4-07 00:00: 00 Dose 2021-0 No Unknown 4-07 00:00: 00 Dose 2021-0 No Unknown 4-07 00:00: 00 Anoro 2021-0 No 1mcg/ac Ellipta 4-07 tuation 62.5 mcg-25 00:00: mcg/actuati 00 on powder for inhalation Dose 2021-0 No Unknown 4-07 00:00: 00 Dose 2021-0 No Unknown 4-07 00:00: 00 Dose 2021-0 No Unknown 4-07 00:00: 00 Dose 2021-0 No Unknown 4-07 00:00: 00 Dose 2021-0 No Unknown 4-07 00:00: 00 Dose 2021-0 No Unknown 4-07 00:00: 00 Dose 2021-0 No Unknown 4-07 00:00: 00 Anoro 2021-0 No 1mcg/ac Ellipta 4-07 tuation 62.5 mcg-25 00:00: mcg/actuati 00 on powder for inhalation Dose 2021-0 No Unknown 4-07 00:00: 00 Dose 2021-0 No Unknown 4-07 00:00: 00 Dose 2021-0 No Unknown 4-07 00:00: 00 Dose 2021-0 No Unknown 4-07 00:00: 00 Dose 2021-0 No Unknown 4-07 00:00: 00 buspirone 2021-0 No 1mg 15 mg 3-30 tablet 00:00: 00 buspirone 2021-0 No 1mg 15 mg 3-30 tablet 00:00: 00 buspirone 2021-0 No 1mg 15 mg 3-30 tablet 00:00: 00 buspirone 2021-0 No 1mg 15 mg 3-30 tablet 00:00: 00 Lamictal 2021-0 No 1mg 100 mg 2-11 tablet 00:00: 00 buspirone 2021-0 No 1mg 7.5 mg 2-11 tablet 00:00: 00 trazodone 2021-0 No 15mg 100 mg 2-11 tablet 00:00: 00 Abilify 2 1-0 No 1mg mg tablet 2-11 00:00: 00 Prozac 20 1-0 No 1mg mg capsule 2-11 00:00: 00 Lamictal 2021-0 No 1mg 100 mg 2-11 tablet 00:00: 00 buspirone 2021-0 No 1mg 7.5 mg 2-11 tablet 00:00: 00 trazodone 2021-0 No 15mg 100 mg 2-11 tablet 00:00: 00 Abilify 2 2021-0 No 1mg mg tablet 2-11 00:00: 00 Prozac 20 2021-0 No 1mg mg capsule 2-11 00:00: 00 Lamictal 2021-0 No 1mg 100 mg 2-11 tablet 00:00: 00 buspirone 2021-0 No 1mg 7.5 mg 2-11 tablet 00:00: 00 trazodone 2021-0 No 15mg 100 mg 2-11 tablet 00:00: 00 Abilify 2 2021-0 No 1mg mg tablet 2-11 00:00: 00 Prozac 20 2021-0 No 1mg mg capsule 2-11 00:00: 00 Lamictal 2021-0 No 1mg 100 mg 2-11 tablet 00:00: 00 buspirone 2021-0 No 1mg 7.5 mg 2-11 tablet 00:00: 00 trazodone 2021-0 No 15mg 100 mg 2-11 tablet 00:00: 00 Abilify 2 2021-0 No 1mg mg tablet 2-11 00:00: 00 Prozac 20 2021-0 No 1mg mg capsule 2-11 00:00: 00 clopidogrel 2021-0 No 1mg 75 mg 1-20 tablet 00:00: 00 loratadine 2021-0 No 1mg 10 mg 1-20 tablet 00:00: 00 metformin 2021-0 No 1mg 500 mg 1-20 tablet 00:00: 00 atorvastati 2021-0 No 1mg n 80 mg 1-20 tablet 00:00: 00 clopidogrel 2021-0 No 1mg 75 mg 1-20 tablet 00:00: 00 loratadine 2021-0 No 1mg 10 mg 1-20 tablet 00:00: 00 metformin 2021-0 No 1mg 500 mg 1-20 tablet 00:00: 00 atorvastati 2021-0 No 1mg n 80 mg 1-20 tablet 00:00: 00 clopidogrel 2021-0 No 1mg 75 mg 1-20 tablet 00:00: 00 loratadine 2021-0 No 1mg 10 mg 1-20 tablet 00:00: 00 metformin 2021-0 No 1mg 500 mg 1-20 tablet 00:00: 00 atorvastati 2021-0 No 1mg n 80 mg 1-20 tablet 00:00: 00 clopidogrel 2021-0 No 1mg 75 mg 1-20 tablet 00:00: 00 loratadine 2021-0 No 1mg 10 mg 1-20 tablet 00:00: 00 metformin 2021-0 No 1mg 500 mg 1-20 tablet 00:00: 00 atorvastati 2021-0 No 1mg n 80 mg 1-20 tablet 00:00: 00 metoprolol 2021-0 No 1mg tartrate 25 1-06 mg tablet 00:00: 00 metoprolol 2021-0 No 1mg tartrate 25 1-06 mg tablet 00:00: 00 metoprolol 2021-0 No 1mg tartrate 25 1-06 mg tablet 00:00: 00 metoprolol 1-0 No 1mg tartrate 25 1-06 mg tablet 00:00: 00 Anoro 2020-1 No 1mcg/ac Ellipta 1-24 tuation 62.5 mcg-25 00:00: mcg/actuati 00 on powder for inhalation prednisone 2020-1 No mg 5 mg tablet 1-24 00:00: 00 Anoro 2020-1 No 1mcg/ac Ellipta 1-24 tuation 62.5 mcg-25 00:00: mcg/actuati 00 on powder for inhalation prednisone 2020-1 No mg 5 mg tablet 1-24 00:00: 00 prednisone 2020-1 No 1mg 20 mg 1-24 tablet 00:00: 00 prednisone 2020-1 No 1mg 20 mg 1-24 tablet 00:00: 00 Anoro 2020-1 No 1mcg/ac Ellipta 1-24 tuation 62.5 mcg-25 00:00: mcg/actuati 00 on powder for inhalation prednisone 2020-1 No mg 5 mg tablet 1-24 00:00: 00 prednisone 2020-1 No 1mg 20 mg 1-24 tablet 00:00: 00 Anoro 2020-1 No 1mcg/ac Ellipta 1-24 tuation 62.5 mcg-25 00:00: mcg/actuati 00 on powder for inhalation prednisone 2020-1 No mg 5 mg tablet 24 00:00: 00 prednisone 2019-02 No 1mg 20 mg 1-24 tablet 00:00: 00 metFORMIN 2019-02 Yes 500mg Take 500 Uni vers 500 mg 1-21 mg by ity of tablet 20:14: mouth 2 (two) Medical times Branch daily with meals. traZODone 2019-02 Yes 150mg Take 150 Uni vers 100 mg 1-21 mg by ity of tablet 20:14: mouth at [place] bedtime. Medical Branch busPIRone 2019-02 Yes 7.5mg [...] mouth ity of 80 mg 20:14: at [facility] 09 bedtime. Medical Branch mupirocin 2 2019-02 Yes Apply to Un destiny % ointment 1-21 area(s) 2 ity of 20:14: (two) [place] times Medical daily. Branch metoprolol 2019-02 Yes [...] by ity of tablet 20:14: mouth at [place] bedtime. Medical Branch busPIRone 2019-02 Yes 7.5mg [...] Puff 2 ity of 44 20:14: (two) [place] mcg/actuati times Medical on inhaler daily. Branch albuterol 2019-02 Yes 2{puff} Inhale 2 U nivers (PROVENTIL 1-21 Puffs ity of HFA) 90 20:14: every 6 [place] mcg/actuati (six) Medical on inhaler hours as Branc h needed for Wheezing or Shortness of Breath. atorvastati 2019-02 Yes 80mg Take 80 mg Univers n (LIPITOR) 1-21 by mouth ity of 80 mg 20:14: at [facility] bedtime. Medical Branch mupirocin 2 2019-02 Yes Apply to Un destiny % ointment 1-21 area(s) 2 ity of 20:14: (two) [place] times Medical daily. Branch metoprolol 2019-02 Yes [...] by ity of tablet 20:14: mouth at [place] 09 bedtime. Medical Branch busPIRone 2019-02 Yes 7.5mg Take 7.5 Uni vers 7.5 mg 1-21 mg by ity of tablet 20:14: mouth 2 [place] (two) Medical times Branch daily. FLUoxetine 2019-02 Yes 20mg Take 20 mg U nivers 20 mg 1-21 by mouth ity of capsule 20:14: daily. Medical Branch lamoTRIgine 2019-02 Yes 100mg Take 100 U nivers 100 mg 1-21 mg by ity of tablet 20:14: mouth 2 [place] (two) Medical times Branch daily. fluticasone 2019-02 Yes 1{puff} Inhale 1 Univers propionate 1-21 Puff 2 ity of 44 20:14: (two) [place] mcg/actuati 09 times Medical on inhaler daily. Branch albuterol 2019-02 Yes 2{puff} Inhale 2 U nivers (PROVENTIL 1-21 Puffs ity of HFA) 90 20:14: every 6 [place] mcg/actuati (six) Medical on inhaler hours as Branc h needed for Wheezing or Shortness of Breath. atorvastati 2019-02 Yes 80mg Take 80 mg Univers n (LIPITOR) 1-21 by mouth ity of 80 mg 20:14: at [facility] 09 bedtime. Medical Branch mupirocin 2 2019-02 Yes Apply to Un destiny % ointment 1-21 area(s) 2 ity of 20:14: (two) [place] [id number] times Medical daily. Branch metoprolol 2019-02 Yes 12.5mg Take 12.5 Univers tartrate 25 1-21 mg by ity of mg tablet 20:14: mouth 2 [place] (two) Medical times [place] daily. atorvastati 2019-02 Yes 80mg 80 mg, Univ ers n (LIPITOR) 1-21 Oral, QHS, it y of tablet 80 03:00: First dose [place] mg 00 (after Medical last Branch modificati on) on Wed12/29/19 at 2100, Until Discontinu ed, Routine clopidogreL 2019-02 Yes [id number] 75mg Take 1 Univers 75 mg 1-21 tablet by ity of tablet 00:00: mouth [place] 00 daily. Medical Branch aspirin 81 2019-02 Yes [id number] 81mg Take 1 Univers mg chewable 1-21 tablet by ity of tablet 00:00: mouth [place] 00 daily. Medical Branch predniSONE 2019- Yes [id number] 40mg Take 2 U nivers 20 mg 1-21 tablets by ity of tablet 00:00: mouth [place] 00 daily. Medical Branch clopidogreL 2019-02 Yes [id number] 75mg Take 1 Univers 75 mg 1-21 tablet by ity of tablet 00:00: mouth [place] 00 daily. Medical Branch aspirin 81 2019-02 Yes [id number] 81mg Take 1 Univers mg chewable 1-21 tablet by ity of tablet 00:00: mouth [place] 00 daily. Medical Branch predniSONE 2019-02 Yes [id number] 40mg Take 2 U nivers 20 mg 1-21 tablets by ity of tablet 00:00: mouth [place] 00 daily. Medical Branch aspirin 81 2019-02 Yes [id number] 81mg Take 1 Univers mg chewable 1-21 tablet by ity of tablet 00:00: mouth [place] 00 daily. Medical Branch clopidogreL 2019-02- No 75mg Take 75 mg Univers 75 mg -20 12-28 by mouth ity of tablet 22:51: 00:00 daily. [place] 35 :00 Medical Branch clopidogreL 2019-02- No Oral, Univ ers (PLAVIX) 02-27 TITRATE - ity o f tablet 21:25: 21:25 FOR [place] 13 :13 PROCEDURE Medical USE, 1 Branch dose, Starting 12/29/19 at 1525, Until 12/29/19 at 1525, Routine ticagrelor 2019-02- No Oral, Unive rs (BRILINTA) 02-27 TITRATE - ity of tablet 20:57: 20:57 FOR [place] 39 :39 PROCEDURE Medical USE, 1 Branch dose, Starting Wed12/29/19 at 1457, Until 12/29/19 at 1457, Routine heparin 2019-02- No Slow IV Univer s 1,000 02-27 Push, ity of unit/mL 20:57: 20:57 TITRATE - [place] injection 02 :02 FOR Medical PROCEDURE Branch USE, 1 dose, Starting 12/29/19 at 1457, Until 12/29/19 at 1457, Routine nitroglycer 2019-02- No Intravenou Univers in (TRIDIL) 02-27 s, TITRATE i ty of 2 mg in 10 20:49: 20:49 - FOR [place] mL D5W for 28 :28 PROCEDURE Medi [...] ity of (PF)) 20:33: 20:33 TITRATE - [place] injection 00 :00 FOR Medical PROCEDURE Branch [...] Until Discontinu ed, Routine predniSONE 2019-02 Yes [id number] 40mg Take 2 U nivers 20 mg 1-20 tablets by ity of tablet 00:00: mouth [place] 00 daily. Medical Branch clopidogreL 2019-02 Yes [id number] 75mg Take 1 Univers 75 mg 1-20 tablet by ity of tablet 00:00: mouth [place] 00 daily. Medical Branch predniSONE 2019-02 2020- No [id number] 40mg Take 2 Univers 20 mg 1-20 11-20 tablets by ity of tablet 00:00: 00:00 mouth [place] 00 :00 daily. Medical Branch predniSONE 2019-02 2020- No [id number] 40mg Take 2 Univers 20 mg 1-20 -19 tablets by ity of tablet 00:00: 00:00 mouth [place] 00 :00 daily for Medical 4 days. Branch atorvastati 2019-02- No 40mg 40 mg, Uni vers n (LIPITOR) 02-26 Oral, QPM, i ty of tablet 40 23:00: 02:01 First dose [place] mg 00 :46 on [facility] Medical 12/28/19 Branch at 1700, Until [...] ONCE, 1 [place] (LUMASON) 00 :00 dose, [facility] Medic al injection 5 12/28/19 Bran ch mL at 1245, Routine
bakery team member approving Restricted medication : DEJAN GONSALEZ Saline 2019-02 2020- No 6mL 6 mL, Univers Bubble 02-26 Injection, ity of Study 17:33: 22:27 SEE-INSTRU [place] 16 :16 CTIONS, 2 Medical doses, Branch Starting [facility] 12/28/19 at 1133, Until Wed12/29/19 at 1627, Routine Saline 2019-02 Yes 6mL 6 mL, Univers Bubble 02-26 Injection, ity of Study 17:33: SEE-INSTRU [place] 14 CTIONS, 2 Medical doses, Branch Starting [facility] 12/28/19 at 1133, Until Discontinu ed, Routine clopidogreL 2019-02 Yes 75mg 75 mg, Univ ers (PLAVIX) 02-26 Oral, ity of tablet 75 15:00: DAILY, [place] mg 00 First dose Medical on [facility] Branch 12/28/19 at 0900, Until Discontinu ed, Routine
bakery team member approving Restricted medication : LEXY MONAE [...] :00 doses, Medical First dose Branch on [facility] 12/28/19 at 0900, Last dose on 01/01/20 at 0900, Routine aspirin 2019-02- No 324mg 324 mg, Unive rs chewable 02-26 Oral, ity of tablet 324 15:00: 08:41 DAILY, [place] mg 00 :12 First dose Medical on [facility] Branch 12/28/19 at 0900, Until Discontinu ed, Routine metoprolol 2019-02 Yes 12.5mg 12.5 mg, U nivers tartrate 02-26 Oral, BID, ity o f (LOPRESSOR) 14:00: First dose [place] half tablet 00 on [facility] Medica l 12.5 mg 12/28/19 Branch at 0800, Until Discontinu ed, Routine heparin 2019-02- No 12U/kg/ 12 Univer s 25,000 02-26 h Units/kg/h ity of Units/250 12:55: 22:27 r ?58.9 kg [place] mL 58 :16 (7.068 Medical (Premixed mL/hr, Branch Bag) in rounded to 0.45 % NS 7.07 mL/hr), IV Infusion, TITRATE, Parameters in Admin. Instr., Starting [facility] 12/28/19 at 0655
CA UTION - If LMWH given in ER, AVOID bolus and start next dose/drip 12 hrs after ER dosage.&nb sp; M ust program rate using programmab le infusion pump.&nbsp ; Maryana ck with the ordering provider first prior to any administra tion should the patient be on existing/a dditional anticoagul ant therapy. Rang e, Dosing and Testing: &nbs p;FOR [facility], AND [facility] ONLY &nbs p; - [...] reached.&n bsp; &nbs p; __ &n bsp;FOR [facility] ONLY - aPTT < 40: & [...] of 2.5 mg /3 10:00: , Q4H, [place] mL (0.083 00 First dose Medi piedad %) on [facility] Branch nebulizer 12/28/19 solution at 0400, 2.5 mg Until Discontinu ed, Routine ipratropium 2019-02 Yes .5mg 0.5 mg, Uni vers (ATROVENT) 02-26 Inhalation ity of 0.02 % 10:00: , Q4H, [place] nebulizer 00 First dose Medi piedad solution on [facility] Branch 0.5 mg 12/28/19 at 0400, [...] 02-26 Oral, ity of (TYLENOL) 08:36: Q6HPRN, [place] tablet 650 38 Starting Medic al mg [...] 2045, 40 mg STAT metoprolol 2019-02- No [id number] 12.5mg Take 0.5 Univers tartrate 25 02-26 tablets by i ty of mg tablet 00:00: 00:00 mouth 2 [place] 00 :00 (two) Medical times Branch daily. albuterol-i 2019-02- No [id number] 1{puff} Inhale 1 Univers pratropium 02-26 Puff 4 ity of 20-100 00:00: 00:00 (four) [place] mcg/actuati 00 :00 times Medical on inhaler daily. Branch metoprolol 2019-02- No [id number] 12.5mg Take 0.5 Univers tartrate 25 02-26 tablets by i ty of mg tablet 00:00: 00:00 mouth 2 [place] 00 :00 (two) Medical times Branch daily. metoprolol 2019-02- No [id number] 12.5mg Take 0.5 Univers tartrate 25 02-26 tablets by i ty of mg tablet 00:00: 00:00 mouth 2 [place] 00 :00 (two) Medical times Branch daily. Flovent HFA 2019-02 No 2mcg/ac 44 1-18 tuation mcg/actuati 00:00: on aerosol 00 inhaler mupirocin 2 2019-02 No 1% % topical 1-18 ointment 00:00: 00 clopidogrel 2019- No 1mg 75 mg 1-18 tablet 00:00: 00 metformin 2019- No 1mg 500 mg 1-18 tablet 00:00: 00 metoprolol 2019-02 No 1mg tartrate 25 1-18 mg tablet 00:00: 00 metoprolol 2019-02 No 1mg tartrate 25 1-18 mg tablet 00:00: 00 atorvastati 2019-02 No 1mg n 80 mg 1-18 tablet 00:00: 00 Flovent HFA 2019-02 No 2mcg/ac 44 1-18 tuation mcg/actuati 00:00: on aerosol 00 inhaler mupirocin 2 2019-1 No 1% % topical 1-18 ointment 00:00: 00 clopidogrel 2020-1 No 1mg 75 mg 1-18 tablet 00:00: 00 metformin 2020-1 No 1mg 500 mg 1-18 tablet 00:00: 00 metoprolol 2019-1 No 1mg tartrate 25 1-18 mg tablet 00:00: 00 metoprolol 2020-1 No 1mg tartrate 25 1-18 mg tablet 00:00: 00 atorvastati 2019-1 No 1mg n 80 mg 1-18 tablet 00:00: 00 Flovent HFA 2019-1 No 2mcg/ac 44 1-18 tuation mcg/actuati 00:00: on aerosol 00 inhaler mupirocin 2 2019-1 No 1% % topical 1-18 ointment 00:00: 00 clopidogrel 2019-1 No 1mg 75 mg 1-18 tablet 00:00: 00 metformin 2019-1 No 1mg 500 mg 1-18 tablet 00:00: 00 metoprolol 2019-1 No 1mg tartrate 25 1-18 mg tablet 00:00: 00 metoprolol 2019-1 No 1mg tartrate 25 1-18 mg tablet 00:00: 00 atorvastati 2019-1 No 1mg n 80 mg 1-18 tablet 00:00: 00 Flovent HFA 2019-1 No 2mcg/ac 44 1-18 tuation mcg/actuati 00:00: on aerosol 00 inhaler mupirocin 2 2019-1 No 1% % topical 1-18 ointment 00:00: 00 clopidogrel 2020-1 No 1mg 75 mg 1-18 tablet 00:00: 00 metformin 2020-1 No 1mg 500 mg 1-18 tablet 00:00: 00 metoprolol 2019-1 No 1mg tartrate 25 1-18 mg tablet 00:00: 00 metoprolol 2020-1 No 1mg tartrate 25 1-18 mg tablet 00:00: 00 atorvastati 2019-1 No 1mg n 80 mg 1-18 tablet 00:00: 00 Lamictal 2019-1 No 1mg 100 mg 1-16 tablet 00:00: 00 buspirone 2020-1 No 1mg 7.5 mg 1-16 tablet 00:00: 00 trazodone 2019-1 No 15mg 100 mg 1-16 tablet 00:00: 00 Prozac 20 2019- No 1mg mg capsule 1-16 00:00: 00 Lamictal 2019- No 1mg 100 mg 1-16 tablet 00:00: 00 buspirone 2019- No 1mg 7.5 mg 1-16 tablet 00:00: 00 trazodone 2019- No 15mg 100 mg 1-16 tablet 00:00: 00 Prozac 20 2019- No 1mg mg capsule 1-16 00:00: 00 Lamictal 2019- No 1mg 100 mg 1-16 tablet 00:00: 00 buspirone 2019- No 1mg 7.5 mg 1-16 tablet 00:00: 00 trazodone 2019- No 15mg 100 mg 1-16 tablet 00:00: 00 Prozac 2019-02 No 1mg mg capsule 1-16 00:00: 00 Lamictal 2019- No 1mg 100 mg 1-16 tablet 00:00: 00 buspirone 2019- No 1mg 7.5 mg 1-16 tablet 00:00: 00 trazodone 2019- No 15mg 100 mg 1-16 tablet 00:00: 00 Prozac 20 2019-02 No 1mg mg capsule 1-16 00:00: 00 metoprolol 2019- No 1mg tartrate 25 0-28 mg tablet 00:00: 00 metoprolol 2019- No 1mg tartrate 25 0-28 mg tablet 00:00: 00 metoprolol 2019- No 1mg tartrate 25 0-28 mg tablet 00:00: 00 metoprolol 2019- No 1mg tartrate 25 0-28 mg tablet 00:00: 00 azithromyci 2019- No mg n 250 mg 0-20 tablet 00:00: 00 prednisone 2019- No mg 20 mg 0-20 tablet 00:00: 00 prednisone 2019- No mg 5 mg tablet 0-20 00:00: 00 azithromyci 2019- No mg n 250 mg 0-20 tablet 00:00: 00 prednisone 2019- No mg 20 mg 0-20 tablet 00:00: 00 prednisone 2019- No mg 5 mg tablet 0-20 00:00: 00 azithromyci 2019- No mg n 250 mg 0-20 tablet 00:00: 00 prednisone 2020-1 No mg 20 mg 0-20 tablet 00:00: 00 prednisone 2019-1 No mg 5 mg tablet 0-20 00:00: 00 azithromyci 2020-1 No mg n 250 mg 0-20 tablet 00:00: 00 prednisone 2020-1 No mg 20 mg 0-20 tablet 00:00: 00 prednisone 2019-1 No mg 5 mg tablet 0-20 00:00: 00 ipratropium 2020-0 No 3mg 0.5 8-19 base)/3 mg-albutero 00:00: mL l 3 mg (2.5 00 mg base)/3 mL nebulizatio n soln ipratropium 2020-0 No 3mg 0.5 8-19 base)/3 mg-albutero 00:00: mL l 3 mg (2.5 00 mg base)/3 mL nebulizatio n soln ipratropium 2020-0 No 3mg 0.5 8-19 base)/3 mg-albutero 00:00: mL l 3 mg (2.5 00 mg base)/3 mL nebulizatio n soln ipratropium 2020-0 No 3mg 0.5 8-19 base)/3 mg-albutero 00:00: mL l 3 mg (2.5 00 mg base)/3 mL nebulizatio n soln buspirone 2020-0 No 1mg 7.5 mg 8-17 tablet 00:00: 00 Lamictal 2020-0 No 1mg 100 mg 8-17 tablet 00:00: 00 trazodone 2020-0 No 15mg 100 mg 8-17 tablet 00:00: 00 Prozac 20 2020-0 No 1mg mg capsule 8-17 00:00: 00 buspirone 2020-0 No 1mg 7.5 mg 8-17 tablet 00:00: 00 Lamictal 2020-0 No 1mg 100 mg 8-17 tablet 00:00: 00 trazodone 2020-0 No 15mg 100 mg 8-17 tablet 00:00: 00 Prozac 20 2020-0 No 1mg mg capsule 8-17 00:00: 00 buspirone 2020-0 No 1mg 7.5 mg 8-17 tablet 00:00: 00 Lamictal 2020-0 No 1mg 100 mg 8-17 tablet 00:00: 00 trazodone 2020-0 No 15mg 100 mg 8-17 tablet 00:00: 00 Prozac 20 2020-0 No 1mg mg capsule 8-17 00:00: 00 buspirone 2020-0 No 1mg 7.5 mg 8-17 tablet 00:00: 00 Lamictal 2020-0 No 1mg 100 mg 8-17 tablet 00:00: 00 trazodone 2020-0 No 15mg 100 mg 8-17 tablet 00:00: 00 Prozac 20 2020-0 No 1mg mg capsule 8-17 00:00: 00 atorvastati 2020-0 No 1mg n 80 mg 8-13 tablet 00:00: 00 atorvastati 2020-0 No 1mg n 80 mg 8-13 tablet 00:00: 00 atorvastati 2020-0 No 1mg n 80 mg 8-13 tablet 00:00: 00 atorvastati 2020-0 No 1mg n 80 mg 8-13 tablet 00:00: 00 metformin 2020-0 No 1mg ER 500 mg 7-24 tablet,exte 00:00: nded 00 release 24 hr metoprolol 2020-0 No 1mg tartrate 25 7-24 mg tablet 00:00: 00 atorvastati 2020-0 No 1mg n 80 mg 7-24 tablet 00:00: 00 clopidogrel 2020-0 No 1mg 75 mg 7-24 tablet 00:00: 00 metformin 2020-0 No 1mg ER 500 mg 7-24 tablet,exte 00:00: nded 00 release 24 hr metoprolol 2020-0 No 1mg tartrate 25 7-24 mg tablet 00:00: 00 atorvastati 2020-0 No 1mg n 80 mg 7-24 tablet 00:00: 00 clopidogrel 2020-0 No 1mg 75 mg 7-24 tablet 00:00: 00 metformin 2020-0 No 1mg ER 500 mg 7-24 tablet,exte 00:00: nded 00 release 24 hr metoprolol 2020-0 No 1mg tartrate 25 7-24 mg tablet 00:00: 00 atorvastati 2020-0 No 1mg n 80 mg 7-24 tablet 00:00: 00 clopidogrel 2020-0 No 1mg 75 mg 7-24 tablet 00:00: 00 metformin 2020-0 No 1mg ER 500 mg 7-24 tablet,exte 00:00: nded 00 release 24 hr metoprolol 2020-0 No 1mg tartrate 25 7-24 mg tablet 00:00: 00 atorvastati 2020-0 No 1mg n 80 mg 7-24 tablet 00:00: 00 clopidogrel 2020-0 No 1mg 75 mg 7-24 tablet 00:00: 00 aspirin 2020-0 2020- No 324mg 324 mg, Unive rs chewable 07-26 06-18 Oral, ity of tablet 324 22:30: 21:42 ONCE, 1 [place] mg 00 :00 dose, [facility] 07/27/19 at Branch 1730, Routine buspirone 2020-0 No 1mg 7.5 mg 5-19 tablet 00:00: 00 Lamictal 2020-0 No 1mg 100 mg 5-19 tablet 00:00: 00 buspirone 2020-0 No 1mg 7.5 mg 5-19 tablet 00:00: 00 Lamictal 2020-0 No 1mg 100 mg 5-19 tablet 00:00: 00 trazodone 2020-0 No 15mg 100 mg 5-19 tablet 00:00: 00 trazodone 2020-0 No 15mg 100 mg 5-19 tablet 00:00: 00 Prozac 10 2020-0 No 1mg mg capsule 5-19 00:00: 00 Prozac 20 2020-0 No 1mg mg capsule 5-19 00:00: 00 buspirone 2020-0 No 1mg 7.5 mg 5-19 tablet 00:00: 00 Lamictal 2020-0 No 1mg 100 mg 5-19 tablet 00:00: 00 buspirone 2020-0 No 1mg 7.5 mg 5-19 tablet 00:00: 00 Lamictal 2020-0 No 1mg 100 mg 5-19 tablet 00:00: 00 trazodone 2020-0 No 15mg 100 mg 5-19 tablet 00:00: 00 trazodone 2020-0 No 15mg 100 mg 5-19 tablet 00:00: 00 Prozac 10 2020-0 No 1mg mg capsule 5-19 00:00: 00 Prozac 20 2020-0 No 1mg mg capsule 5-19 00:00: 00 buspirone 2020-0 No 1mg 7.5 mg 5-19 tablet 00:00: 00 Lamictal 2020-0 No 1mg 100 mg 5-19 tablet 00:00: 00 buspirone 2020-0 No 1mg 7.5 mg 5-19 tablet 00:00: 00 Lamictal 2020-0 No 1mg 100 mg 5-19 tablet 00:00: 00 trazodone 2020-0 No 15mg 100 mg 5-19 tablet 00:00: 00 trazodone 2020-0 No 15mg 100 mg 5-19 tablet 00:00: 00 Prozac 10 2020-0 No 1mg mg capsule 5-19 00:00: 00 Prozac 20 2020-0 No 1mg mg capsule 5-19 00:00: 00 buspirone 2020-0 No 1mg 7.5 mg 5-19 tablet 00:00: 00 Lamictal 2020-0 No 1mg 100 mg 5-19 tablet 00:00: 00 buspirone 2020-0 No 1mg 7.5 mg 5-19 tablet 00:00: 00 Lamictal 2020-0 No 1mg 100 mg 5-19 tablet 00:00: 00 trazodone 2020-0 No 15mg 100 mg 5-19 tablet 00:00: 00 trazodone 2020-0 No 15mg 100 mg 5-19 tablet 00:00: 00 Prozac 10 2020-0 No 1mg mg capsule 5-19 00:00: 00 Prozac 20 2020-0 No 1mg mg capsule 5-19 00:00: 00 prednisone 2020-0 No 1mg 20 mg 4-30 tablet 00:00: 00 prednisone 2020-0 No 1mg 20 mg 4-30 tablet 00:00: 00 prednisone 2020-0 No 1mg 20 mg 4-30 tablet 00:00: 00 prednisone 2020-0 No 1mg 20 mg 4-30 tablet 00:00: 00 buspirone 2020-0 No 1mg 7.5 mg 3-24 tablet 00:00: 00 Lamictal 2020-0 No 1mg 100 mg 3-24 tablet 00:00: 00 trazodone 2020-0 No 15mg 100 mg 3-24 tablet 00:00: 00 Prozac 10 2020-0 No 1mg mg capsule 3-24 00:00: 00 buspirone 2020-0 No 1mg 7.5 mg 3-24 tablet 00:00: 00 Lamictal 2020-0 No 1mg 100 mg 3-24 tablet 00:00: 00 trazodone 2020-0 No 15mg 100 mg 3-24 tablet 00:00: 00 Prozac 10 2020-0 No 1mg mg capsule 3-24 00:00: 00 buspirone 2020-0 No 1mg 7.5 mg 3-24 tablet 00:00: 00 Lamictal 2020-0 No 1mg 100 mg 3-24 tablet 00:00: 00 trazodone 2020-0 No 15mg 100 mg 3-24 tablet 00:00: 00 Prozac 10 2020-0 No 1mg mg capsule 3-24 00:00: 00 buspirone 2020-0 No 1mg 7.5 mg 3-24 tablet 00:00: 00 Lamictal 2020-0 No 1mg 100 mg 3-24 tablet 00:00: 00 trazodone 2020-0 No 15mg 100 mg 3-24 tablet 00:00: 00 Prozac 10 2020-0 No 1mg mg capsule 3-24 00:00: 00 albuterol 2020-0 No 3/3 mL sulfate 2.5 3-19 (0.083 mg/3 mL 00:00: %) (0.083 %) 00 solution for nebulizatio n albuterol 2020-0 No 3/3 mL sulfate 2.5 3-19 (0.083 mg/3 mL 00:00: %) (0.083 %) 00 solution for nebulizatio n albuterol 2020-0 No 3/3 mL sulfate 2.5 3-19 (0.083 mg/3 mL 00:00: %) (0.083 %) 00 solution for nebulizatio n albuterol 2020-0 No 3/3 mL sulfate 2.5 3-19 (0.083 mg/3 mL 00:00: %) (0.083 %) 00 solution for nebulizatio n ipratropium 2020-0 No 3mg 0.5 2-06 base)/3 mg-albutero 00:00: mL l 3 mg (2.5 00 mg base)/3 mL nebulizatio n soln ipratropium 2020-0 No 3mg 0.5 2-06 base)/3 mg-albutero 00:00: mL l 3 mg (2.5 00 mg base)/3 mL nebulizatio n soln ipratropium 2020-0 No 3mg 0.5 2-06 base)/3 mg-albutero 00:00: mL l 3 mg (2.5 00 mg base)/3 mL nebulizatio n soln ipratropium 2020-0 No 3mg 0.5 2-06 base)/3 mg-albutero 00:00: mL l 3 mg (2.5 00 mg base)/3 mL nebulizatio n soln prednisone 2020-0 No 1mg 5 mg tablet 16 00:00: 00 ipratropium 2020-0 No 3mg 0.5 1-16 base)/3 mg-albutero 00:00: mL l 3 mg (2.5 00 mg base)/3 mL nebulizatio n soln prednisone 2020-0 No 1mg 5 mg tablet 16 00:00: 00 ipratropium 2020-0 No 3mg 0.5 1-16 base)/3 mg-albutero 00:00: mL l 3 mg (2.5 00 mg base)/3 mL nebulizatio n soln prednisone 2020-0 No 1mg 5 mg tablet 16 00:00: 00 ipratropium 2020-0 No 3mg 0.5 1-16 base)/3 mg-albutero 00:00: mL l 3 mg (2.5 00 mg base)/3 mL nebulizatio n soln prednisone 2020-0 No 1mg 5 mg tablet 16 00:00: 00 ipratropium 2020-0 No 3mg 0.5 1-16 base)/3 mg-albutero 00:00: mL l 3 mg (2.5 00 mg base)/3 mL nebulizatio n soln buspirone 2020-0 No 1mg 7.5 mg 1-06 tablet 00:00: 00 Lamictal 2020-0 No 1mg 100 mg 1-06 tablet 00:00: 00 trazodone 2020-0 No 15mg 100 mg 1-06 tablet 00:00: 00 Prozac 10 2020-0 No 1mg mg capsule 1-06 00:00: 00 buspirone 2020-0 No 1mg 7.5 mg 1-06 tablet 00:00: 00 Lamictal 2020-0 No 1mg 100 mg 1-06 tablet 00:00: 00 trazodone 2020-0 No 15mg 100 mg 1-06 tablet 00:00: 00 Prozac 10 2020-0 No 1mg mg capsule 1-06 00:00: 00 buspirone 2020-0 No 1mg 7.5 mg 1-06 tablet 00:00: 00 Lamictal 2020-0 No 1mg 100 mg 1-06 tablet 00:00: 00 trazodone 2020-0 No 15mg 100 mg 1-06 tablet 00:00: 00 Prozac 10 2019-0 No 1mg mg capsule 1-06 00:00: 00 buspirone 2020-0 No 1mg 7.5 mg 1-06 tablet 00:00: 00 Lamictal 2020-0 No 1mg 100 mg 1-06 tablet 00:00: 00 trazodone 2020-0 No 15mg 100 mg 1-06 tablet 00:00: 00 Prozac 10 2019-0 No 1mg mg capsule 1-06 00:00: 00 clopidogrel 2019-1 No 1mg 75 mg 2-19 tablet 00:00: 00 metoprolol 2019-1 No 1mg tartrate 25 2-19 mg tablet 00:00: 00 clopidogrel 2019-1 No 1mg 75 mg 2-19 tablet 00:00: 00 metoprolol 2019-1 No 1mg tartrate 25 2-19 mg tablet 00:00: 00 clopidogrel 2019-1 No 1mg 75 mg 2-19 tablet 00:00: 00 metoprolol 2019-1 No 1mg tartrate 25 2-19 mg tablet 00:00: 00 clopidogrel 2019-1 No 1mg 75 mg 2-19 tablet 00:00: 00 metoprolol 2019-1 No 1mg tartrate 25 2-19 mg tablet 00:00: 00 buspirone 2019-1 No 1mg 7.5 mg 2-17 tablet 00:00: 00 Lamictal 2019-1 No 1mg 100 mg 2-17 tablet 00:00: 00 trazodone 2019-1 No 15mg 100 mg 2-17 tablet 00:00: 00 Prozac 10 2018-1 No 1mg mg capsule 2-17 00:00: 00 buspirone 2019-1 No 1mg 7.5 mg 2-17 tablet 00:00: 00 Lamictal 2019-1 No 1mg 100 mg 2-17 tablet 00:00: 00 trazodone 2019- No 15mg 100 mg 2-17 tablet 00:00: 00 Prozac 10 2018-02 No 1mg mg capsule 2-17 00:00: 00 buspirone 2018- No 1mg 7.5 mg 2-17 tablet 00:00: 00 Lamictal 2018- No 1mg 100 mg 2-17 tablet 00:00: 00 trazodone 2018- No 15mg 100 mg 2-17 tablet 00:00: 00 Prozac 2018-02 No 1mg mg capsule 2-17 00:00: 00 buspirone 2018- No 1mg 7.5 mg 2-17 tablet 00:00: 00 Lamictal 2018- No 1mg 100 mg 2-17 tablet 00:00: 00 trazodone 2018-02 No 15mg 100 mg 2-17 tablet 00:00: 00 Prozac 2018-02 No 1mg mg capsule 2-17 00:00: 00 azithromyci 2018- No mg n 250 mg 2-05 tablet 00:00: 00 azithromyci 2018- No mg n 250 mg 2-05 tablet 00:00: 00 azithromyci 2018- No mg n 250 mg 2-05 tablet 00:00: 00 azithromyci 2018- No mg n 250 mg 2-05 tablet 00:00: 00 Lamictal 2018- No 1mg 100 mg 0-01 tablet 00:00: 00 buspirone 2018- No 1mg 7.5 mg 0-01 tablet 00:00: 00 trazodone 2018- No 1mg 100 mg 0-01 tablet 00:00: 00 trazodone 2018- No 15mg 100 mg 0-01 tablet 00:00: 00 Prozac 10 2018-02 No 1mg mg capsule 0-01 00:00: 00 Lamictal 2018- No 1mg 100 mg 0-01 tablet 00:00: 00 buspirone 2018- No 1mg 7.5 mg 0-01 tablet 00:00: 00 trazodone 2018- No 1mg 100 mg 0-01 tablet 00:00: 00 trazodone 2018- No 15mg 100 mg 0-01 tablet 00:00: 00 Prozac 10 2019-1 No 1mg mg capsule 0-01 00:00: 00 Lamictal 2019-1 No 1mg 100 mg 0-01 tablet 00:00: 00 Lamictal 2019-1 No 1mg 100 mg 0-01 tablet 00:00: 00 buspirone 2019-1 No 1mg 7.5 mg 0-01 tablet 00:00: 00 trazodone 2019-1 No 1mg 100 mg 0-01 tablet 00:00: 00 buspirone 2019-1 No 1mg 7.5 mg 0-01 tablet 00:00: 00 trazodone 2019-1 No 15mg 100 mg 0-01 tablet 00:00: 00 Prozac 10 2019-1 No 1mg mg capsule 0-01 00:00: 00 trazodone 2019-1 No 1mg 100 mg 0-01 tablet 00:00: 00 trazodone 2019-1 No 15mg 100 mg 0-01 tablet 00:00: 00 Prozac 10 2018-1 No 1mg mg capsule 0-01 00:00: 00 aspirin 81 2019-0 No 1mg mg 8-13 tablet,gena 00:00: yed release 00 metformin 2019-0 No 1mg ER 500 mg 8-13 tablet,exte 00:00: nded 00 release 24 hr metoprolol 2019-0 No 1mg tartrate 25 8-13 mg tablet 00:00: 00 atorvastati 2019-0 No 1mg n 80 mg 8-13 tablet 00:00: 00 aspirin 81 2019-0 No 1mg mg 8-13 tablet,gena 00:00: yed release 00 metformin 2019-0 No 1mg ER 500 mg 8-13 tablet,exte 00:00: nded 00 release 24 hr metoprolol 2019-0 No 1mg tartrate 25 8-13 mg tablet 00:00: 00 atorvastati 2019-0 No 1mg n 80 mg 8-13 tablet 00:00: 00 aspirin 81 2019-0 No 1mg mg 8-13 tablet,gena 00:00: yed release 00 metformin 2019-0 No 1mg ER 500 mg 8-13 tablet,exte 00:00: nded 00 release 24 hr metoprolol 2019-0 No 1mg tartrate 25 8-13 mg tablet 00:00: 00 atorvastati 2019-0 No 1mg n 80 mg 8-13 tablet 00:00: 00 aspirin 81 2019-0 No 1mg mg 8-13 tablet,gnea 00:00: yed release 00 metformin 2019-0 No 1mg ER 500 mg 8-13 tablet,exte 00:00: nded 00 release 24 hr metoprolol 2019-0 No 1mg tartrate 25 8-13 mg tablet 00:00: 00 atorvastati 2019-0 No 1mg n 80 mg 8-13 tablet 00:00: 00 buspirone 2019-0 No 1mg 7.5 mg 8-06 tablet 00:00: 00 Lamictal 2019-0 No 1mg 100 mg 8-06 tablet 00:00: 00 trazodone 2019-0 No 1mg 100 mg 8-06 tablet 00:00: 00 Prozac 10 2019-0 No 1mg mg capsule 8-06 00:00: 00 buspirone 2019-0 No 1mg 7.5 mg 8-06 tablet 00:00: 00 Lamictal 2019-0 No 1mg 100 mg 8-06 tablet 00:00: 00 trazodone 2019-0 No 1mg 100 mg 8-06 tablet 00:00: 00 Prozac 10 2019-0 No 1mg mg capsule 8-06 00:00: 00 buspirone 2019-0 No 1mg 7.5 mg 8-06 tablet 00:00: 00 Lamictal 2019-0 No 1mg 100 mg 8-06 tablet 00:00: 00 trazodone 2019-0 No 1mg 100 mg 8-06 tablet 00:00: 00 Prozac 10 2019-0 No 1mg mg capsule 8-06 00:00: 00 buspirone 2019-0 No 1mg 7.5 mg 8-06 tablet 00:00: 00 Lamictal 2019-0 No 1mg 100 mg 8-06 tablet 00:00: 00 trazodone 2019-0 No 1mg 100 mg 8-06 tablet 00:00: 00 Prozac 10 2019-0 No 1mg mg capsule 8-06 00:00: 00 Lamictal 2019-0 No 1mg 100 mg 7-09 tablet 00:00: 00 buspirone 2019-0 No 1mg 7.5 mg 7-09 tablet 00:00: 00 trazodone 2019-0 No 1mg 100 mg 7-09 tablet 00:00: 00 Prozac 10 2019-0 No 1mg mg capsule 7-09 00:00: 00 Lamictal 2019-0 No 1mg 100 mg 7-09 tablet 00:00: 00 buspirone 2019-0 No 1mg 7.5 mg 7-09 tablet 00:00: 00 trazodone 2019-0 No 1mg 100 mg 7-09 tablet 00:00: 00 Prozac 10 2019-0 No 1mg mg capsule 7-09 00:00: 00 Lamictal 2019-0 No 1mg 100 mg 7-09 tablet 00:00: 00 buspirone 2019-0 No 1mg 7.5 mg 7-09 tablet 00:00: 00 trazodone 2019-0 No 1mg 100 mg 7-09 tablet 00:00: 00 Prozac 10 2019-0 No 1mg mg capsule 7-09 00:00: 00 Lamictal 2019-0 No 1mg 100 mg 7-09 tablet 00:00: 00 buspirone 2019-0 No 1mg 7.5 mg 7-09 tablet 00:00: 00 trazodone 2019-0 No 1mg 100 mg 7-09 tablet 00:00: 00 Prozac 10 2019-0 No 1mg mg capsule 7-09 00:00: 00 buspirone 5 2019-0 No 1mg mg tablet 6-11 00:00: 00 Lamictal 2019-0 No 1mg 100 mg 6-11 tablet 00:00: 00 trazodone 2019-0 No 1mg 100 mg 6-11 tablet 00:00: 00 Prozac 10 2019-0 No 1mg mg capsule 6-11 00:00: 00 buspirone 5 2019-0 No 1mg mg tablet 6-11 00:00: 00 Lamictal 2019-0 No 1mg 100 mg 6-11 tablet 00:00: 00 trazodone 2019-0 No 1mg 100 mg 6-11 tablet 00:00: 00 Prozac 10 2019-0 No 1mg mg capsule 6-11 00:00: 00 buspirone 5 2019-0 No 1mg mg tablet 6-11 00:00: 00 Lamictal 2019-0 No 1mg 100 mg 6-11 tablet 00:00: 00 trazodone 2019-0 No 1mg 100 mg 6-11 tablet 00:00: 00 Prozac 10 2019-0 No 1mg mg capsule 6-11 00:00: 00 buspirone 5 2019-0 No 1mg mg tablet 6- 00:00: 00 Lamictal 2019-0 No 1mg 100 mg 6-11 tablet 00:00: 00 trazodone 2019-0 No 1mg 100 mg 6-11 tablet 00:00: 00 Prozac 10 2019-0 No 1mg mg capsule 6 00:00: 00 triamcinolo 2019-0 No 1% ne 5-17 acetonide 00:00: 0.1 % 00 topical cream albuterol 2019-0 No 3/3 mL sulfate 2.5 5-17 (0.083 mg/3 mL 00:00: %) (0.083 %) 00 solution for nebulizatio n triamcinolo 2019-0 No 1% ne 5-17 acetonide 00:00: 0.1 % 00 topical cream albuterol 2019-0 No 3/3 mL sulfate 2.5 5-17 (0.083 mg/3 mL 00:00: %) (0.083 %) 00 solution for nebulizatio n triamcinolo 2019-0 No 1% ne 5-17 acetonide 00:00: 0.1 % 00 topical cream albuterol 2019-0 No 3/3 mL sulfate 2.5 5-17 (0.083 mg/3 mL 00:00: %) (0.083 %) 00 solution for nebulizatio n triamcinolo 2019-0 No 1% ne 5-17 acetonide 00:00: 0.1 % 00 topical cream albuterol 2019-0 No 3/3 mL sulfate 2.5 5-17 (0.083 mg/3 mL 00:00: %) (0.083 %) 00 solution for nebulizatio n aspirin 81 2019-0 No 1mg mg 5-16 tablet,gena 00:00: yed release 00 metformin 2019-0 No 1mg ER 500 mg 5-16 tablet,exte 00:00: nded 00 release 24 hr Lamictal 2019-0 No 1mg 100 mg 5-16 tablet 00:00: 00 buspirone 5 2019-0 No 1mg mg tablet 5-16 00:00: 00 metoprolol 2019-0 No 1mg tartrate 25 5-16 mg tablet 00:00: 00 trazodone 2019-0 No 1mg 100 mg 5-16 tablet 00:00: 00 Prozac 10 2019-0 No 1mg mg capsule 5-16 00:00: 00 aspirin 81 2019-0 No 1mg mg 5-16 tablet,gena 00:00: yed release 00 metformin 2019-0 No 1mg ER 500 mg 5-16 tablet,exte 00:00: nded 00 release 24 hr Lamictal 2019-0 No 1mg 100 mg 5-16 tablet 00:00: 00 buspirone 5 2019-0 No 1mg mg tablet 5-16 00:00: 00 metoprolol 2019-0 No 1mg tartrate 25 5-16 mg tablet 00:00: 00 trazodone 2019-0 No 1mg 100 mg 5-16 tablet 00:00: 00 Prozac 10 2019-0 No 1mg mg capsule 5-16 00:00: 00 aspirin 81 2019-0 No 1mg mg 5-16 tablet,gena 00:00: yed release 00 metformin 2019-0 No 1mg ER 500 mg 5-16 tablet,exte 00:00: nded 00 release 24 hr Lamictal 2019-0 No 1mg 100 mg 5-16 tablet 00:00: 00 buspirone 5 2019-0 No 1mg mg tablet 5-16 00:00: 00 metoprolol 2019-0 No 1mg tartrate 25 5-16 mg tablet 00:00: 00 trazodone 2019-0 No 1mg 100 mg 5-16 tablet 00:00: 00 Prozac 10 2019-0 No 1mg mg capsule 5-16 00:00: 00 aspirin 81 2019-0 No 1mg mg 5-16 tablet,gena 00:00: yed release 00 metformin 2019-0 No 1mg ER 500 mg 5-16 tablet,exte 00:00: nded 00 release 24 hr Lamictal 2019-0 No 1mg 100 mg 5-16 tablet 00:00: 00 buspirone 5 2019-0 No 1mg mg tablet 5-16 00:00: 00 metoprolol 2019-0 No 1mg tartrate 25 5-16 mg tablet 00:00: 00 trazodone 2019-0 No 1mg 100 mg 5-16 tablet 00:00: 00 Prozac 10 2019-0 No 1mg mg capsule 5-16 00:00: 00 Lamictal 2019-0 No 1mg 100 mg 4-09 tablet 00:00: 00 buspirone 5 2019-0 No 1mg mg tablet 4-09 00:00: 00 trazodone 2019-0 No 1mg 100 mg 4-09 tablet 00:00: 00 Prozac 10 2019-0 No 1mg mg capsule 4-09 00:00: 00 Lamictal 2019-0 No 1mg 100 mg 4-09 tablet 00:00: 00 buspirone 5 2019-0 No 1mg mg tablet 4-09 00:00: 00 trazodone 2019-0 No 1mg 100 mg 4-09 tablet 00:00: 00 Prozac 10 2019-0 No 1mg mg capsule 4-09 00:00: 00 Lamictal 2019-0 No 1mg 100 mg 4-09 tablet 00:00: 00 buspirone 5 2019-0 No 1mg mg tablet 4-09 00:00: 00 trazodone 2019-0 No 1mg 100 mg 4-09 tablet 00:00: 00 Prozac 10 2019-0 No 1mg mg capsule 4-09 00:00: 00 Lamictal 2019-0 No 1mg 100 mg 4-09 tablet 00:00: 00 buspirone 5 2019-0 No 1mg mg tablet 4-09 00:00: 00 trazodone 2019-0 No 1mg 100 mg 4-09 tablet 00:00: 00 Prozac 10 2019-0 No 1mg mg capsule 4-09 00:00: 00 Lamictal 2019-0 No 1mg 100 mg 3-12 tablet 00:00: 00 Prozac 10 2019-0 No 1mg mg capsule 3-12 00:00: 00 Lamictal 2019-0 No 1mg 100 mg 3-12 tablet 00:00: 00 Prozac 10 2019-0 No 1mg mg capsule 3-12 00:00: 00 Lamictal 2019-0 No 1mg 100 mg 3-12 tablet 00:00: 00 Prozac 10 2019-0 No 1mg mg capsule 3-12 00:00: 00 Lamictal 2019-0 No 1mg 100 mg 3-12 tablet 00:00: 00 Prozac 10 2019-0 No 1mg mg capsule 3-12 00:00: 00 Celexa 20 2019-0 No 1mg mg tablet 2-26 00:00: 00 aspirin 81 2019-0 No 1mg mg 2-26 tablet,gena 00:00: yed release 00 Lamictal 2019-0 No 5mg 100 mg 2-26 tablet 00:00: 00 Lamictal 2019-0 No 1mg 100 mg 2-26 tablet 00:00: 00 metformin 2019-0 No 1mg ER 500 mg 2-26 tablet,exte 00:00: nded 00 release 24 hr metoprolol 2019-0 No 1mg tartrate 25 2-26 mg tablet 00:00: 00 trazodone 2019-0 No 1mg 100 mg 2-26 tablet 00:00: 00 Celexa 20 2019-0 No 1mg mg tablet 2-26 00:00: 00 aspirin 81 2019-0 No 1mg mg 2-26 tablet,gena 00:00: yed release 00 Lamictal 2019-0 No 5mg 100 mg 2-26 tablet 00:00: 00 Lamictal 2019-0 No 1mg 100 mg 2-26 tablet 00:00: 00 metformin 2019-0 No 1mg ER 500 mg 2-26 tablet,exte 00:00: nded 00 release 24 hr metoprolol 2019-0 No 1mg tartrate 25 2-26 mg tablet 00:00: 00 trazodone 2019-0 No 1mg 100 mg 2-26 tablet 00:00: 00 Celexa 20 2019-0 No 1mg mg tablet 2-26 00:00: 00 aspirin 81 2019-0 No 1mg mg 2-26 tablet,gena 00:00: yed release 00 Lamictal 2019-0 No 5mg 100 mg 2-26 tablet 00:00: 00 Lamictal 2019-0 No 1mg 100 mg 2-26 tablet 00:00: 00 metformin 2019-0 No 1mg ER 500 mg 2-26 tablet,exte 00:00: nded 00 release 24 hr metoprolol 2019-0 No 1mg tartrate 25 2-26 mg tablet 00:00: 00 trazodone 2019-0 No 1mg 100 mg 2-26 tablet 00:00: 00 Celexa 20 2019-0 No 1mg mg tablet 2-26 00:00: 00 aspirin 81 2019-0 No 1mg mg 2-26 tablet,gena 00:00: yed release 00 Lamictal 2019-0 No 5mg 100 mg 2-26 tablet 00:00: 00 Lamictal 2019-0 No 1mg 100 mg 2-26 tablet 00:00: 00 metformin 2019-0 No 1mg ER 500 mg 2-26 tablet,exte 00:00: nded 00 release 24 hr metoprolol 2019-0 No 1mg tartrate 25 2-26 mg tablet 00:00: 00 trazodone 2019-0 No 1mg 100 mg 2-26 tablet 00:00: 00 Celexa 20 2019-0 No 1mg mg tablet 2-05 00:00: 00 Lamictal 25 2019-0 No 2mg mg tablet 2-05 00:00: 00 Celexa 20 2019-0 No 1mg mg tablet 2-05 00:00: 00 Lamictal 25 2019-0 No 2mg mg tablet 2-05 00:00: 00 Celexa 20 2019-0 No 1mg mg tablet 2-05 00:00: 00 Lamictal 25 2019-0 No 2mg mg tablet 2-05 00:00: 00 Celexa 20 2019-0 No 1mg mg tablet 2-05 00:00: 00 Lamictal 25 2019-0 No 2mg mg tablet 2-05 00:00: 00 Lamictal 25 2019-0 No 1mg mg tablet 1-22 00:00: 00 trazodone 2019-0 No 1mg 100 mg 1-22 tablet 00:00: 00 Lamictal 25 2019-0 No 1mg mg tablet 1-22 00:00: 00 trazodone 2019-0 No 1mg 100 mg 1-22 tablet 00:00: 00 Lamictal 25 2019-0 No 1mg mg tablet 1-22 00:00: 00 trazodone 2019-0 No 1mg 100 mg 1-22 tablet 00:00: 00 Lamictal 25 2019-0 No 1mg mg tablet 1-22 00:00: 00 trazodone 2019-0 No 1mg 100 mg 1-22 tablet 00:00: 00 metformin 2018-1 No 1mg ER 500 mg 1-30 tablet,exte 00:00: nded 00 release 24 hr metformin 2018-1 No 1mg ER 500 mg 1-30 tablet,exte 00:00: nded 00 release 24 hr metformin 2018- No 1mg ER 500 mg 1-30 tablet,exte 00:00: nded 00 release 24 hr metformin 2018-1 No 1mg ER 500 mg 1-30 tablet,exte 00:00: nded 00 release 24 hr fluticasone 2017- No 2mcg/ac 50 1-27 tuation mcg/actuati 00:00: on nasal 00 spray,suspe nsion loratadine 2017- No 1mg 10 mg 1-27 tablet 00:00: 00 aspirin 81 2017- No 1mg mg 1-27 tablet,gena 00:00: yed release 00 metoprolol 2017- No 1mg tartrate 25 1-27 mg tablet 00:00: 00 fluticasone 2017- No 2mcg/ac 50 1-27 tuation mcg/actuati 00:00: on nasal 00 spray,suspe nsion loratadine 2017- No 1mg 10 mg 1-27 tablet 00:00: 00 aspirin 81 2017- No 1mg mg 1-27 tablet,gena 00:00: yed release 00 metoprolol 2017- No 1mg tartrate 25 1-27 mg tablet 00:00: 00 fluticasone 2017- No 2mcg/ac 50 1-27 tuation mcg/actuati 00:00: on nasal 00 spray,suspe nsion loratadine 2017- No 1mg 10 mg 1-27 tablet 00:00: 00 aspirin 81 2017- No 1mg mg 1-27 tablet,gena 00:00: yed release 00 metoprolol 2017- No 1mg tartrate 25 1-27 mg tablet 00:00: 00 fluticasone 2017- No 2mcg/ac 50 1-27 tuation mcg/actuati 00:00: on nasal 00 spray,suspe nsion loratadine 2017- No 1mg 10 mg 1-27 tablet 00:00: 00 aspirin 81 2017- No 1mg mg 1-27 tablet,gena 00:00: yed release 00 metoprolol 2017- No 1mg tartrate 25 1-27 mg tablet 00:00: 00 Spiriva 2018-1 No 1mcg/ac Respimat 1-05 tuation 2.5 00:00: mcg/actuati 00 on solution for inhalation Advair 2017- No 1mcg/do Diskus 250 1-05 se mcg-50 00:00: mcg/dose 00 powder for inhalation Spiriva 2017- No 1mcg/ac Respimat 1-05 tuation 2.5 00:00: mcg/actuati 00 on solution for inhalation Advair 2017-02 No 1mcg/do Diskus 250 1-05 se mcg-50 00:00: mcg/dose 00 powder for inhalation Spiriva 2017-02 No 1mcg/ac Respimat 1-05 tuation 2.5 00:00: mcg/actuati 00 on solution for inhalation Advair 2017-02 No 1mcg/do Diskus 250 1-05 se mcg-50 00:00: mcg/dose 00 powder for inhalation Spiriva 2017-02 No 1mcg/ac Respimat 1-05 tuation 2.5 00:00: mcg/actuati 00 on solution for inhalation Advair 2017-02 No 1mcg/do Diskus 250 1-05 se mcg-50 00:00: mcg/dose 00 powder for inhalation Proventil 2018-0 No 1mcg/ac HFA 90 8-21 tuation mcg/actuati 00:00: on aerosol 00 inhaler Proventil 2018-0 No 1mcg/ac HFA 90 8-21 tuation mcg/actuati 00:00: on aerosol 00 inhaler trazodone 2018-0 No 1mg 100 mg 8-21 tablet 00:00: 00 aspirin 81 2018-0 No 1mg mg 8-21 tablet,gena 00:00: yed release 00 metoprolol 2018-0 No 1mg tartrate 25 8-21 mg tablet 00:00: 00 albuterol 2018-0 No 23/3 mL sulfate 2.5 8-21 (0.083 mg/3 mL 00:00: %) (0.083 %) 00 solution for nebulizatio n albuterol 2018-0 No 23/3 mL sulfate 2.5 8-21 (0.083 mg/3 mL 00:00: %) (0.083 %) 00 solution for nebulizatio n trazodone 2018-0 No 1mg 100 mg 8-21 tablet 00:00: 00 aspirin 81 2018-0 No 1mg mg 8-21 tablet,gena 00:00: yed release 00 metoprolol 2018-0 No 1mg tartrate 25 8-21 mg tablet 00:00: 00 albuterol 2018-0 No 23/3 mL sulfate 2.5 8-21 (0.083 mg/3 mL 00:00: %) (0.083 %) 00 solution for nebulizatio n albuterol 2018-0 No 23/3 mL sulfate 2.5 8-21 (0.083 mg/3 mL 00:00: %) (0.083 %) 00 solution for nebulizatio n Proventil 2018-0 No 1mcg/ac HFA 90 8-21 tuation mcg/actuati 00:00: on aerosol 00 inhaler trazodone 2018-0 No 1mg 100 mg 8-21 tablet 00:00: 00 aspirin 81 2018-0 No 1mg mg 8-21 tablet,gena 00:00: yed release 00 metoprolol 2018-0 No 1mg tartrate 25 8-21 mg tablet 00:00: 00 albuterol 2018-0 No 23/3 mL sulfate 2.5 8-21 (0.083 mg/3 mL 00:00: %) (0.083 %) 00 solution for nebulizatio n albuterol 2018-0 No 23/3 mL sulfate 2.5 8-21 (0.083 mg/3 mL 00:00: %) (0.083 %) 00 solution for nebulizatio n Proventil 2018-0 No 1mcg/ac HFA 90 8-21 tuation mcg/actuati 00:00: on aerosol 00 inhaler trazodone 2018-0 No 1mg 100 mg 8-21 tablet 00:00: 00 aspirin 81 2018-0 No 1mg mg 8-21 tablet,gena 00:00: yed release 00 metoprolol 2018-0 No 1mg tartrate 25 8-21 mg tablet 00:00: 00 albuterol 2018-0 No 23/3 mL sulfate 2.5 8-21 (0.083 mg/3 mL 00:00: %) (0.083 %) 00 solution for nebulizatio n albuterol 2018-0 No 23/3 mL sulfate 2.5 8-21 (0.083 mg/3 mL 00:00: %) (0.083 %) 00 solution for nebulizatio n Nitrostat 2018-0 No 1mg 0.4 mg 8-15 sublingual 00:00: tablet 00 aspirin 81 2018-0 No 1mg mg 8-15 tablet,gena 00:00: yed release 00 aspirin 81 2018-0 No 1mg mg 8-15 tablet,gena 00:00: yed release 00 isosorbide 2018-0 No 1mg mononitrate 8-15 ER 30 mg 00:00: tablet,exte 00 nded release 24 hr metoprolol 2018-0 No 1mg tartrate 25 8-15 mg tablet 00:00: 00 Nitrostat 2018-0 No 1mg 0.4 mg 8-15 sublingual 00:00: tablet 00 aspirin 81 2018-0 No 1mg mg 8-15 tablet,gena 00:00: yed release 00 aspirin 81 2018-0 No 1mg mg 8-15 tablet,gena 00:00: yed release 00 isosorbide 2018-0 No 1mg mononitrate 8-15 ER 30 mg 00:00: tablet,exte 00 nded release 24 hr metoprolol 2018-0 No 1mg tartrate 25 8-15 mg tablet 00:00: 00 Nitrostat 2018-0 No 1mg 0.4 mg 8-15 sublingual 00:00: tablet 00 aspirin 81 2018-0 No 1mg mg 8-15 tablet,gena 00:00: yed release 00 aspirin 81 2018-0 No 1mg mg 8-15 tablet,gena 00:00: yed release 00 aspirin 81 2018-0 No 1mg mg 8-15 tablet,gena 00:00: yed release 00 isosorbide 2018-0 No 1mg mononitrate 8-15 ER 30 mg 00:00: tablet,exte 00 nded release 24 hr metoprolol 2018-0 No 1mg tartrate 25 8-15 mg tablet 00:00: 00 Nitrostat 2018-0 No 1mg 0.4 mg 8-15 sublingual 00:00: tablet 00 aspirin 81 2018-0 No 1mg mg 8-15 tablet,gena 00:00: yed release 00 isosorbide 2018-0 No 1mg mononitrate 8-15 ER 30 mg 00:00: tablet,exte 00 nded release 24 hr metoprolol 2018-0 No 1mg tartrate 25 8-15 mg tablet 00:00: 00 No known No [facility] Vital Signs Vital Name Observation Time Observation Value Comments Source Systolic blood 2019-12-30 135 mm[Hg] [facility] of pressure 17:24:00 [facility] Diastolic blood 2019-12-30 72 mm[Hg] [facility] o f pressure 17:24:00 [facility] Heart rate 2019-12-30 78 /min [facility] of 17:24:00 [facility] Body temperature 2019-12-30 35.61 Annemarie [facility] of 17:24:00 [facility] Respiratory rate 2019-12-30 18 /min [facility] of 17:24:00 [facility] Oxygen saturation 2019-12-30 91 /min University of in Arterial blood 17:24:00 [facility] by Pulse oximetry [place] Body weight 2019-12-30 57.924 kg pt's actual wt University of 10:03:00 on regular [facility] scale [place] BMI 2019-12-30 20.61 kg/m2 University of 10:03:00 [facility] Body height 2019-12-29 167.6 cm [facility] of 20:18:00 [facility] Systolic blood 2019-12-30 135 mm[Hg] [facility] of pressure 17:24:00 [facility] Diastolic blood 2019-12-30 72 mm[Hg] University o f pressure 17:24:00 [facility] Heart rate 2019-12-30 78 /min [facility] of 17:24: [facility] Body temperature 2019-12-30 35.61 Annemarie [facility] 17:24:00 [facility] Respiratory rate 2019-12-30 18 /min [facility] of 17:24:00 [facility] Oxygen saturation 2019-12-30 91 /min [facility] of in Arterial blood 17:24:00 [facility] by Pulse oximetry [place] Body weight 2019-12-30 57.924 kg pt's actual wt [facility] of 10:03:00 on regular [facility] scale [place] BMI 2019-12-30 20.61 kg/m2 University of 10:03:00 [facility] Body height 2019-12-29 167.6 cm [facility] of 20:18:00 [facility] Systolic blood 2019-07-27 120 mm[Hg] [facility] pressure 21:35:00 [facility] Diastolic blood 2019-07-27 79 mm[Hg] [facility] f pressure 21:35:00 [facility] Heart rate 2019-07-27 93 /min [facility] 21:35:00 [facility] Respiratory rate 2019-07-27 12 /min [facility] 21:35:00 [facility] Oxygen saturation 2019-07-27 95 /min [facility] in Arterial blood 21:35:00 [facility] Pulse oxim[facility] Body temperature 2019-07-27 37.5 [place] [facility] 21:15:00 [facility] Body height 2019-07-27 167.6 cm [facility] 21:15:00 [facility] Body weight 2019-07-27 55.792 kg [facility] 21:15:00 [facility] BMI 2019-07-27 19.85 kg/m2 [facility] 21:15:00 [facility] Systolic blood 2019-07-27 120 mm[Hg] [facility] pressure 21:35:00 [facility] Diastolic blood 2019-07-27 79 mm[Hg] [facility] f pressure 21:35:00 [facility] Heart rate 2019-07-27 93 /min [facility] 21:35:00 [facility] Respiratory rate 2019-07-27 12 /min [facility] 21:35:00 [facility] Oxygen saturation 2019-07-27 95 /min [facility] in Arterial blood 21:35:00 [facility] piedad by Pulse oximetry Branch Body temperature 2019-07-27 37.5 [place] [facility] 21:15:00 [facility] Body height 2019-07-27 167.6 cm [facility] 21:15:00 [facility] Body weight 2019-07-27 55.792 kg [facility] 21:15:00 [facility] BMI 2019-07-27 19.85 kg/m2 [facility] 21:15:00 [facility] BP Systolic 2021-12-05 137 mm[Hg] 13:31:00 BP Diastolic 2021-12-05 79 mm[Hg] 13:31:00 Weight Measured 2021-12-05 128.80 pounds 13:31:00 Height Measured 2021-12-05 65.80 inches 13:31:00 Body Temperature 2021-12-05 97.70 degrees 13:31:00 Heart Rate 2021-12-05 76.00 /min 13:31:00 Respiratory Rate 2021-12-05 13:31:00 BP Systolic 2021-11-06 130 mm[Hg] 09:09:00 BP Diastolic 2021-11-06 78 mm[Hg] 09:09:00 Weight Measured 2021-11-06 128.60 pounds 09:09:00 Height Measured 2021-11-06 65.88 inches 09:09:00 Body Temperature 2021-11-06 97.20 degrees 09:09:00 Heart Rate 2021-11-06 72.00 /min 09:09:00 Respiratory Rate 2021-11-06 09:09:00 BP Systolic 2021-09-09 124 mm[Hg] 08:32:00 BP Diastolic 2021-09-09 73 mm[Hg] 08:32:00 Weight Measured 2021-09-09 126.40 pounds 08:32:00 Height Measured 2021-09-09 65.88 inches 08:32:00 Body Temperature 2021-09-09 97.50 degrees 08:32:00 Heart Rate 2021-09-09 73.00 /min 08:32:00 Respiratory Rate 2021-09-09 08:32:00 BP Systolic 2021-08-15 123 mm[Hg] 09:21:00 BP Diastolic 2021-08-15 79 mm[Hg] 09:21:00 Weight Measured 2021-08-15 125.30 pounds 09:21:00 Height Measured 2021-08-15 65.88 inches 09:21:00 Body Temperature 2021-08-15 97.30 degrees 09:21:00 Heart Rate 2021-08-15 67.00 /min 09:21:00 Respiratory Rate 2021-08-15 09:21:00 BP Systolic 2021-07-17 149 mm[Hg] 15:08:00 BP Diastolic 2021-07-17 75 mm[Hg] 15:08:00 Weight Measured 2021-07-17 126.00 pounds 15:08:00 Height Measured 2021-07-17 65.88 inches 15:08:00 Body Temperature 2021-07-17 98.00 degrees 15:08:00 Heart Rate 2021-07-17 96.00 /min 15:08:00 Respiratory Rate 2021-07-17 15:08:00 Heart rate 2021-07-16 93 /min [facility] 17:12:00 [facility] Systolic blood 2021-07-16 156 mm[Hg] [facility] pressure 16:50:46 Hospital Diastolic blood 2021-07-16 83 mm[Hg] [facility] pressure 16:50:46 Hospital Body temperature 2021-07-16 36.72 Annemarie [facility] 16:50:46 [facility] Respiratory rate 2021-07-16 20 /min [facility] 16:50:46 [facility] Oxygen saturation 2021-07-16 100 /min [facility] in Arterial blood 16:50:46 Hospital by Pulse oximetry BP Systolic 2021-07-08 117 mm[Hg] 10:20:00 BP Diastolic 2021-07-08 63 mm[Hg] 10:20:00 Weight Measured 2021-07-08 122.40 pounds 10:20:00 Height Measured 2021-07-08 65.88 inches 10:20:00 Body Temperature 2021-07-08 97.30 degrees 10:20:00 Heart Rate 2021-07-08 71.00 /min 10:20:00 Respiratory Rate 2021-07-08 10:20:00 BP Systolic 2021-05-14 100 mm[Hg] 08:40:00 BP Diastolic 2021-05-14 70 mm[Hg] 08:40:00 Weight Measured 2021-05-14 123.10 pounds 08:40:00 Height Measured 2021-05-14 65.88 inches 08:40:00 Body Temperature 2021-05-14 08:40:00 Heart Rate 2021-05-14 90.00 /min 08:40:00 Respiratory Rate 2021-05-14 08:40:00 BP Systolic 2021-04-23 115 mm[Hg] 11:54:00 BP Diastolic 2021-04-23 71 mm[Hg] 11:54:00 Weight Measured 2021-04-23 128.80 pounds 11:54:00 Height Measured 2021-04-23 65.88 inches 11:54:00 Body Temperature 2021-04-23 97.30 degrees 11:54:00 Heart Rate 2021-04-23 81.00 /min 11:54:00 Respiratory Rate 2021-04-23 11:54:00 BP Systolic 2021-01-01 135 mm[Hg] 09:56:00 BP Diastolic 2021-01-01 64 mm[Hg] 09:56:00 Weight Measured 2021-01-01 135.80 pounds 09:56:00 Height Measured 2021-01-01 65.88 inches 09:56:00 Body Temperature 2021-01-01 97.30 degrees 09:56:00 Heart Rate 2021-01-01 87.00 /min 09:56:00 Respiratory Rate 2021-01-01 09:56:00 BP Systolic 2020-12-25 141 mm[Hg] 09:25:00 BP Diastolic 2020-12-25 79 mm[Hg] 09:25:00 Weight Measured 2020-12-25 136.80 pounds 09:25:00 Height Measured 2020-12-25 65.88 inches 09:25:00 Body Temperature 2020-12-25 97.40 degrees 09:25:00 Heart Rate 2020-12-25 98.00 /min 09:25:00 Respiratory Rate 2020-12-25 09:25:00 BP Systolic 2020-11-28 152 mm[Hg] 11:02:00 BP Diastolic 2020-11-28 74 mm[Hg] 11:02:00 Weight Measured 2020-11-28 139.40 pounds 11:02:00 Height Measured 2020-11-28 65.88 inches 11:02:00 Body Temperature 2020-11-28 97.70 degrees 11:02:00 Heart Rate 2020-11-28 109.00 /min 11:02:00 Respiratory Rate 2020-11-28 17.00 /min 11:02:00 Procedures Procedure Date / Time Performing Clinician Source Performed POC GLUCOSE 2021-07-16 16:04:00 Hyun Flynn [facility] POC GLUCOSE 2021-07-16 13:06:00 Hyun Flynn spital HEMOGLOBIN A1C 2021-07-16 10:38:00 Hyun Flynn spital POC GLUCOSE 2021-07-16 02:40:00 Hyun Flynn spital POC GLUCOSE 2021-07-15 21:28:00 Hyun Flynn spital POC GLUCOSE 2021-07-15 18:04:00 Hyun Flynn spital LACTIC ACID LEVEL, 2021-07-15 14:19:00 Zina [facility] SEPSIS - NOW AND REPEAT 2X EVERY 3 HOURS POC GLUCOSE 2021-07-15 14:05:00 Hyun Flynn LACTIC ACID LEVEL, 2021-07-15 11:47:00 Zina [facility] SEPSIS - NOW AND REPEAT 2X EVERY 3 HOURS ECG 12-LEAD 2021-07-15 09:34:19 Zina [facility] XR CHEST 1 VW PORTABLE 2021-07-15 08:37:27 Zina [facility] COVID-19 ANTI-SPIKE IGG 2021-07-15 08:35:00 Soabran [facility] ANTIBODY TITER COVID-19 SEROLOGY 2021-07-15 08:35:00 Zina [facility] PATIENT SURVEILLANCE LACTIC ACID LEVEL, 2021-07-15 08:35:00 Zina [facility] SEPSIS - NOW AND REPEAT 2X EVERY 3 HOURS HC COMPLETE BLD COUNT 2021-07-15 08:35:00 Zina [facility] W/AUTO DIFF COMPREHENSIVE METABOLIC 2021-07-15 08:35:00 [facility] PANEL TROPONIN T 2021-07-15 08:35:00 [facility] ESTIMATED GFR 2021-07-15 08:35:00 [facility] EXTERNAL PROVIDER 2020-01-17 06:01:00 Doctor Unassigned, No [facility] RECORDS Name Medical Branch POCT GLUCOSE (AUTOMATED) 2019-12-30 15:25:00 [facility] Thibode[facility] Medical [facility] ch MAGNESIUM 2019-12-30 10:10:00 [facility] BASIC METABOLIC PANEL 2019-12-30 10:10:00 Octavio Larios [facility] (NA, K, CL, CO2, Medical Branch GLUCOSE, BUN, CREATININE, CA) CBC WITH DIFF 2019-12-30 10:10:00 Harriet [facility] POCT GLUCOSE (AUTOMATED) 2019-12-30 01:50:00 [facility] [place] [facility] POCT GLUCOSE (AUTOMATED) 2019-12-29 23:32:00 Lexy [facility] [place] [facility] HB ECG ROUTINE & RHYTHM 2019-12-29 14:11:36 Mariya [facility] POCT GLUCOSE (AUTOMATED) 2019-12-29 14:00:00 Lexy [facility] [place] [facility] MAGNESIUM 2019-12-29 10:58:00 Mariya [facility] BASIC METABOLIC PANEL 2019-12-29 10:58:00 Efrain Meraz [facility] (NA, K, CL, CO2, Medical Branch GLUCOSE, BUN, CREATININE, CA) ACTIVATED PARTIAL 2019-12-29 10:58:00 Mariya [facility] EXTERNAL PROVIDER 2019-12-29 06:01:00 Doctor Unassigned, Isela [facility] POCT GLUCOSE (AUTOMATED) 2019-12-29 04:16:00 Lexy [facility] [place] [facility] ACTIVATED PARTIAL 2019-12-29 00:06:00 Mariya [facility] TROPONIN I 2019-12-28 19:46:00 Jesus Paz [facility] LIPID PANEL 2019-12-28 19:46:00 Mariya [facility] ([id number])(TOTAL [facility] CHOLESTEROL, TRIGLYCERIDES, HDL) ECHO ROUTINE W/DOPPLER 2019-12-28 16:44:30 Mariya [facility] HB ECG ROUTINE & RHYTHM 2019-12-28 13:42:07 Mariya [facility] PROTHROMBIN TIME / INR 2019-12-28 12:24:00 Mariya [facility] ACTIVATED PARTIAL 2019-12-28 12:24:00 Mariya [facility] TROPONIN I 2019-12-28 10:08:00 Sydor, [facility] CHEST PULMONARY 2019-12-28 04:44:55 Minna Mike [facility] ANGIOGRAM Medical Branch XR CHEST 1 VW 2019-12-28 02:07:34 Minna Mike [facility] COVID-19 (ID NOW RAPID 2019-12-28 01:50:00 Minna Mike [facility] TESTING) Medical Branch HB ECG ROUTINE & RHYTHM 2019-12-28 01:49:31 [facility] STRIP [facility] TROPONIN I 2019-12-28 01:49:00 Minna Mike [facility] THYROID STIMULATING 2019-12-28 01:49:00 Mariya [facility] HORMONE [facility] Branch BASIC METABOLIC PANEL 2019-12-28 01:49:00 Minna Mike [facility] (NA, K, CL, CO2, Medical Branch GLUCOSE, BUN, CREATININE, CA) COMP. METABOLIC PANEL 2019-12-28 01:49:00 Minna Mike [facility] ([id number]) Medical Branch CBC WITH DIFF 2019-12-28 01:49:00 Minna Mike [facility] GLYCOSYLATED HEMOGLOBIN 2019-12-28 01:49:00 Mariya [facility] (A1C) Medical Branch N-TERMINAL PRO-BNP 2019-12-28 01:49:00 Mariya [facility] XR CHEST 1 VW 2019-07-27 22:14:30 Soila Villar [facility] COVID-19 (ID NOW RAPID 2019-07-27 21:43:00 Soila Villar [facility] TESTING) Medical Branch TROPONIN I 2019-07-27 21:38:00 Soila Villar [facility] HEPATIC FUNCTION PANEL 2019-07-27 21:38:00 Soila Villar [facility] ([id number]) (ALB,T.PRO,BILI Medical Branch T,BU/BC,ALT,AST,ALK PHOS) BASIC METABOLIC PANEL 2019-07-27 21:38:00 Soila [facility] (NA, K, CL, CO2, Medical Branch GLUCOSE, BUN, CREATININE, CA) CBC WITH DIFFERENTIAL 2019-07-27 21:38:00 Soila Villar Uni versity [facility] PROTHROMBIN TIME / INR 2019-07-27 21:38:00 [facility]MIN[facility] PRO-BNP 2019-07-27 21:38:00 Soila Villar Univer sity [facility] EKG-12 LEAD 2019-07-27 21:21:22 Soila Villar Universit [facility] [place] [facility] NOTICE OF PRIVACY 2019-07-27 20:58:21 Doctor Unassigned, No [facility] PRACTICES Name [facility] Plan of Care Planned Activity Planned Date Details Comments Source Future Scheduled 2021-12-09 HEPATITIS B VACCINES Met [facility] Test 11:50:42 (1 of 3 - 3-dose series) [code = HEPATITIS B VACCINES (1 of 3 - 3-dose series)] Future Scheduled 2021-12-09 COVID-19 VACCINE (#1) Me [facility] Test 11:50:42 [code = COVID-19 VACCINE (#1)] Future Scheduled 2021-12-09 65+ [facility] [facility] Test 11:50:42 VACCINE (1 - PCV) [code = 65+ PNEUMOCOCCAL VACCINE (1 - PCV)] Future Scheduled 2021-12-09 Hepatitis C screening [facility] Test 11:50:42 (procedure) [code = 157099167] Future Scheduled 2021-12-09 Screening for [facility] Test 11:50:42 malignant neoplasm of cervix (procedure) [code = 024234459] Future Scheduled 2021-12-09 BRE[facility] Test 11:50:42 SCREENING [code = BREAST CANCER SCREENING] Future Scheduled 2021-12-09 COLONOSCOPY SCREENING [facility] Test 11:50:42 [code = COLONOSCOPY SCREENING] Future Scheduled 2021-12-09 SHINGLES VACCINES (1 Met [facility] Test 11:50:42 of 2) [code = SHINGLES VACCINES (1 of 2)] Future Scheduled 2021-12-09 INFLUENZA VACCINE Method [facility] Test 11:50:42 [code = INFLUENZA VACCINE] Future Scheduled 2021-10-11 HEPATITIS B VACCINES [facility] Test 10:23:54 (1 of 3 - 3-dose series) [code = HEPATITIS B VACCINES (1 of 3 - 3-dose series)] Future Scheduled 2021-10-11 COVID-19 VACCINE (#1) [facility] Hospital Test 10:23:54 [code = COVID-19 VACCINE (#1)] Future Scheduled 2021-10-11 65+ PNEUMOCOCCAL [facility] Test 10:23:54 VACCINE (1 - PCV) [code = 65+ PNEUMOCOCCAL VACCINE (1 - PCV)] Future Scheduled 2021-10-11 Hepatitis C screening [facility] Test 10:23:54 (procedure) [code = 503258780] Future Scheduled 2021-10-11 Screening for [facility] Test 10:23:54 malignant neoplasm of cervix (procedure) [code = 871767356] Future Scheduled 2021-10-11 BREAST CANCER [facility] Test 10:23:54 SCREENING [code = BREAST CANCER SCREENING] Future Scheduled 2021-10-11 COLONOSCOPY SCREENING [facility] Test 10:23:54 [code = COLONOSCOPY SCREENING] Future Scheduled 2021-10-11 SHINGLES VACCINES (1 Met [facility] Test 10:23:54 of 2) [code = SHINGLES VACCINES (1 of 2)] Future Scheduled 2021-10-11 INFLUENZA VACCINE Method [facility] Test 10:23:54 [code = INFLUENZA VACCINE] Future Scheduled 2021-10-11 HEPATITIS B VACCINES [facility] Test 10:23:54 (1 of 3 - 3-dose series) [code = HEPATITIS B VACCINES (1 of 3 - 3-dose series)] Future Scheduled 2021-10-11 COVID-19 VACCINE (#1) [facility] Test 10:23:54 [code = COVID-19 VACCINE (#1)] Future Scheduled 2021-10-11 65+ PNEUMOCOCCAL [facility] Test 10:23:54 VACCINE (1 - PCV) [code = 65+ PNEUMOCOCCAL VACCINE (1 - PCV)] Future Scheduled 2021-10-11 Hepatitis C screening [facility] Test 10:23:54 (procedure) [code = 280749561] Future Scheduled 2021-10-11 Screening for [facility] Test 10:23:54 malignant neoplasm of cervix (procedure) [code = 128326610] Future Scheduled 2021-10-11 BREAST CANCER [facility] Test 10:23:54 SCREENING [code = BREAST CANCER SCREENING] Future Scheduled 2021-10-11 COLONOSCOPY SCREENING [facility] Test 10:23:54 [code = COLONOSCOPY SCREENING] Future Scheduled 2021-10-11 SHINGLES VACCINES (1 Met [facility] Test 10:23:54 of 2) [code = SHINGLES VACCINES (1 of 2)] Future Scheduled 2021-10-11 INFLUENZA VACCINE Method [facility] Test 10:23:54 [code = INFLUENZA VACCINE] Goal Plan of Care Note [code = 68745-1] Goal Plan of Care Note [code = 05041-1] Goal Plan of Care Note [code = 16158-7] Goal Plan of Care Note [code = 56289-9] Goal Plan of Care Note [code = 14467-3] Goal Plan of Care Note [code = 13040-7] Goal Plan of Care Note [code = 07534-0] Goal Plan of Care Note [code = 45467-7] Goal Plan of Care Note [code = 42270-9] Goal Plan of Care Note [code = 56729-4] Goal Plan of Care Note [code = 32823-4] Goal Plan of Care Note [code = 92296-4] Goal Plan of Care Note [code = 66102-0] Goal Plan of Care Note [code = 75199-2] Goal Plan of Care Note [code = 61456-9] Goal Plan of Care Note [code = 78894-8] Goal Plan of Care Note [code = 46737-9] Goal Plan of Care Note [code = 94921-5] Goal Plan of Care Note [code = 84026-6] Goal Plan of Care Note [code = 98080-7] Goal Plan of Care Note [code = 49547-7] Goal Plan of Care Note [code = 95745-5] Goal Plan of Care Note [code = 16692-5] Goal Plan of Care Note [code = 86410-9] Goal Plan of Care Note [code = 85290-7] Goal Plan of Care Note [code = 00318-0] Goal Plan of Care Note [code = 34955-8] Goal Plan of Care Note [code = 66324-8] Goal Plan of Care Note [code = 72215-4] Goal Plan of Care Note [code = 89674-4] Goal Plan of Care Note [code = 97943-9] Goal Plan of Care Note [code = 11524-2] Goal Plan of Care Note [code = 53398-3] Goal Plan of Care Note [code = 33206-5] Goal Plan of Care Note [code = 56270-8] Goal Plan of Care Note [code = 75681-7] Goal Plan of Care Note [code = 12042-2] Goal Plan of Care Note [code = 89083-9] Goal Plan of Care Note [code = 91605-5] Goal Plan of Care Note [code = 46255-9] Goal Plan of Care Note [code = 68133-3] Goal Plan of Care Note [code = 44461-9] Goal Plan of Care Note [code = 46011-3] Goal Plan of Care Note [code = 79119-5] Goal Plan of Care Note [code = 51692-4] Goal Plan of Care Note [code = 96909-2] Goal Plan of Care Note [code = 60543-6] Goal Plan of Care Note [code = 65325-0] Goal Plan of Care Note [code = 27077-4] Goal Plan of Care Note [code = 60569-8] Goal Plan of Care Note [code = 98063-3] Goal Plan of Care Note [code = 20637-9] Goal Plan of Care Note [code = 05193-4] Goal Plan of Care Note [code = 80792-4] Goal Plan of Care Note [code = 43491-7] Goal Plan of Care Note [code = 14431-0] Goal Plan of Care Note [code = 33336-8] Goal Plan of Care Note [code = 51320-3] Goal Plan of Care Note [code = 47205-0] Goal Plan of Care Note [code = 48627-3] Goal Plan of Care Note [code = 87408-7] Goal Plan of Care Note [code = 00127-1] Goal Plan of Care Note [code = 24321-1] Goal Plan of Care Note [code = 47877-3] Goal Plan of Care Note [code = 38293-5] Goal Plan of Care Note [code = 01743-3] Goal Plan of Care Note [code = 00940-1] Goal Plan of Care Note [code = 24981-0] Goal Plan of Care Note [code = 30082-1] Goal Plan of Care Note [code = 12053-6] Goal Plan of Care Note [code = 76416-4] Goal Plan of Care Note [code = 31663-1] Goal Plan of Care Note [code = 48993-5] Goal Plan of Care Note [code = 35903-4] Goal Plan of Care Note [code = 66157-2] Goal Plan of Care Note [code = 42932-2] Goal Plan of Care Note [code = 83848-2] Goal Plan of Care Note [code = 45998-1] Goal Plan of Care Note [code = 50847-2] Goal Plan of Care Note [code = 22896-5] Goal Plan of Care Note [code = 56883-7] Goal Plan of Care Note [code = 84891-9] Goal Plan of Care Note [code = 90696-1] Goal Plan of Care Note [code = 12248-8] Goal Plan of Care Note [code = 68208-9] Goal Plan of Care Note [code = 05109-9] Goal Plan of Care Note [code = 37682-4] Goal Plan of Care Note [code = 19180-7] Goal Plan of Care Note [code = 29393-2] Goal Plan of Care Note [code = 95956-4] Goal Plan of Care Note [code = 85456-4] Goal Plan of Care Note [code = 01118-4] Goal Plan of Care Note [code = 95048-9] Goal Plan of Care Note [code = 04323-4] Goal Plan of Care Note [code = 51040-4] Goal Plan of Care Note [code = 72966-6] Goal Plan of Care Note [code = 79808-9] Goal Plan of Care Note [code = 75077-5] Goal Plan of Care Note [code = 02636-8] Goal Plan of Care Note [code = 91405-7] Goal Plan of Care Note [code = 65868-3] Goal Plan of Care Note [code = 42489-8] Goal Plan of Care Note [code = 90024-4] Goal Plan of Care Note [code = 83559-1] Goal Plan of Care Note [code = 92752-8] Goal Plan of Care Note [code = 94012-3] Goal Plan of Care Note [code = 09828-6] Goal Plan of Care Note [code = 62529-2] Goal Plan of Care Note [code = 08008-8] Goal Plan of Care Note [code = 43180-4] Goal Plan of Care Note [code = 68268-2] Goal Plan of Care Note [code = 41132-1] Goal Plan of Care Note [code = 30577-9] Goal Plan of Care Note [code = 31305-3] Goal Plan of Care Note [code = 22327-0] Goal Plan of Care Note [code = 39722-9] Goal Plan of Care Note [code = 31597-5] Goal Plan of Care Note [code = 32952-4] Goal Plan of Care Note [code = 14158-7] Goal Plan of Care Note [code = 94713-2] Goal Plan of Care Note [code = 17762-7] Goal Plan of Care Note [code = 05049-2] Goal Plan of Care Note [code = 34765-9] Goal Plan of Care Note [code = 82158-1] Goal Plan of Care Note [code = 56000-2] Goal Plan of Care Note [code = 40122-1] Goal Plan of Care Note [code = 15319-9] Goal Plan of Care Note [code = 09905-0] Goal Plan of Care Note [code = 96198-1] Goal Plan of Care Note [code = 18533-3] Goal Plan of Care Note [code = 12933-9] Goal Plan of Care Note [code = 39648-2] Goal Plan of Care Note [code = 01557-1] Goal Plan of Care Note [code = 20053-1] Goal Plan of Care Note [code = 85722-0] Goal Plan of Care Note [code = 75642-9] Goal Plan of Care Note [code = 97082-6] Goal Plan of Care Note [code = 41100-2] Goal Plan of Care Note [code = 86404-7] Goal Plan of Care Note [code = 53988-4] Goal Plan of Care Note [code = 89741-2] Goal Plan of Care Note [code = 88764-7] Goal Plan of Care Note [code = 40764-4] Goal Plan of Care Note [code = 94426-4] Goal Plan of Care Note [code = 28963-2] Goal Plan of Care Note [code = 74909-2] Goal Plan of Care Note [code = 85966-6] Goal Plan of Care Note [code = 37471-1] Goal Plan of Care Note [code = 98918-2] Goal Plan of Care Note [code = 07583-2] Goal Plan of Care Note [code = 92160-9] Goal Plan of Care Note [code = 78701-3] Goal Plan of Care Note [code = 05937-8] Goal Plan of Care Note [code = 12445-5] Goal Plan of Care Note [code = 39068-5] Goal Plan of Care Note [code = 87704-3] Encounters Start End Encounter Admission Attending Care Care Encounter Source Date/Time Date/Time Type Type Clinicians Facility Department ID 2021-12-11 2021-12-[address] [facility] [id number] Yasir 09:25:26 09:25:26 1103 F Yusef 2021-12-05 2021-12-06 Outpatient nullFlavo MNA [id number] Memoria 13:15:00 04:59:59 r Neurology 01 natasha LondonLarimer Shay 2021-12-05 2021-12-06 Outpatient nullFlavo MNA [id number] Memoria 13:15:00 04:59:59 r Neurology 01 naatsha Day 2021-12-05 2021-12-05 Outpatient SAMSON OconnorMISCHMARIA ESTHER MHMISCHER [id number] 08:15:00 23:59:59 Rogelio Varghese Rodríguez 2021-12-05 2021-12-05 Outpatient MHIE MHIE [id number] Memoria 08:15:00 08:15:00 01 natasha Day 2021-12-05 2021-12-05 Outpatient [id number]- [id number] ed 5qpq04-8 00:00:00 00:00:00 Visit 0767-4399 059-4058-8 -5b50-5o7 i59-3w97h3 [id number] 0229-10-25 2021-12-02 Ambulatory nullFlavo MNA 76207 [id number] Memoria 13:15:00 13:15:00 Pre-Reg r Neurology 00 l Larimerrussel Quachann 2021-12-02 2021-12-02 Ambulatory nullFlavo MNA 75129 [id number] Memoria 13:15:00 13:15:00 Pre-Reg r Neurology 00 l Larimerrussel Day 2021-12-02 2021-12-02 Outpatient SAMSONIE ASHER [id number] Memoria 08:15:00 08:15:00 00 l Shay 2021-12-02 2021-12-02 [id number] 08:15:00 08:15:00 Rogelio Dayan Arreguin 2021-11-06 2021-11-06 Outpatient [id number] 96afbf-7 00:00:00 00:00:00 Visit 78ef-41c6 8ef-41c6-8 -8750-b17 750-b175d4 9a66q82c1 9c05e3 2021-09-09 2021-09-09 Outpatient 5c3z2xuf- [id number] 2c 8o0hag-n 00:00:00 00:00:00 Visit vl64-63t7 f39-88h7-2 -8625-285 [id number] 1515g9n9b 2e6a5e 2021-08-15 2021-08-15 Outpatient [id number]- [id number] l7w604-0 00:00:00 00:00:00 Visit 1578-4e21 578-4e21-b -l47f-5i7 11c-2w4547 7174dedcc 4dedcc 2021-07-15 2021-07-16 [facility] Colette Izaguirre 1.2.840.1 [id number] Methodi 01:59:00 13:57:00 Encounter Hyun Flynn 31647.1.[address] 3.430.2.7 Hospit a .3.398043 l .8 2021-07-15 2021-07-15 Travel 1.2.840.1 1.2.792.244 [id number] Methodi 00:00:00 00:00:[address] 3.430.2.7 0.2.7.3.698 Ho spita .3.131039 084.8 l .8 2020-01-17 2020-01-17 Orders Doctor DIONISIO 1.2.840.114 [id number] Univers 00:00:00 00:00:00 Only Unassigned, ASHLEY 350.1.13.10 ity of [facility] 4.2.7.2.686 Nabil as [id number] [facility] 009 Branch 2020-01-17 2020-01-17 Orders Doctor DIONISIO 1.2.840.114 [id number] 00:00:00 00:00:00 Only Unassigned, ASHLEY 350.1.13.10 [facility] 4.2.7.2.686 [id number] 009 2020-01-01 2020-01-01 Transition Ree Barkley 1.2.840.114 [id number] Univers 00:00:00 00:00:00 of Care Sarah Carvalho 350.1.13.10 ity of [place] [id number] [facility] 403 Branch 2020-01-01 2020-01-01 Transition Ree Barkley 1.2.840.114 [id number] 00:00:00 00:00:00 of Care Sarah Carvalho 350.1.13.10 [place] 4.2.7.2.686 [id number] 403 2019-12-27 2019-12-30 [facility] 1.2.840. 114 [id number] [facility] 18:54:00 14:13:00 Encounter Lexy Monaey 350.1.13.10 ity of [facility] 4.2.7.2.68 6 [place] [id number] [facility] 090 Branch 2019-12-27 2019-12-30 [facility] 1.2.840. 114 [id number] 18:54:00 14:13:00 Encounter Lexy Monaey 350.1.13.10 Hospital 4.2.7.2.686 [id number] 090 2019-12-27 2019-12-27 Emergency X [facility] [id number] Univers 18:54:00 18:54:00 MINNA galvan [facility] 2019-07-27 2019-07-27 [facility] [id number] Univers 16:26:45 18:20:00 Soila Espinosa [id number] [facility] [id number] [facility] [id number] [facility] [address] [place] 2019-07-27 2019-07-27 [facility] [id number] Univers 16:26:45 18:20:00 SOILA galvan [facility] 2019-07-27 2019-07-27 [facility] 1.2.840.114 [id number] 16:26:45 18:20:00 Soila Espinosa [id number] [place] 4.2.7.2.686 [place] [id number] [id number] Results Test Description Test Time Test Comments Results Result Comments Source LACTIC ACID, PLASMA 2021-09-16 11:30:59 Test Item Value Reference Range Interpretation Comme nts LACTIC ACID, PLASMA (test code = 2057) 12.0 MG/DL 4.5-19.8 [id number] 03:42:38 Test Item Value Reference Range Interpretation Comments MAGNESIUM (test code = 2226) 1.9 MG/DL 1.6-2.6 IRON, [id number] 03:42:00 Test Item Value Reference Range Interpretation Comments IRON, SERUM (test 21 UG/DL 37-145 L UNLESS O THERWISE code = 2222) INDICATED, ALL TESTING PERFORMED [facility] [address] [place] [id number] [place] [address] DIRECTOR: TITA PARIKH M.D. CLIA NUMBER [id number] CAP ACCREDITATION N O. [id number] COMPREHENSIVE METABOLIC [id number] 03:42:00 Test Item Value Reference Range Interpretation Comments GLUCOSE (test code = 193 MG/DL 70-99 H 2216) BUN (test code = 14 MG/DL 8-2207) CREATININE (test 0.68 MG/DL 0.60-1.30 code = 2214) eGFR (2020 CKD-EPI) 97 ML/MIN/1.73 >60 (test code = 03983) CALC BUN/CREAT (test 21 RATIO 6-28 code = 223) SODIUM (test code = 140 MEQ/L 018-685 2749) POTASSIUM (test code 4.4 MEQ/L 3.5-5.4 = [...] [Automated message] (test code = 2206) The leemail which generated this result transmit shikha reference range : <=1.2. The refe rence range was not u sed to interpret th is result as normal/abnormal . ALKALINE PHOSPHATASE 61 U/L 40-140 (test code = 2203) AST (test code = 24 U/L 9-40 2217) ALT (test code = 25 U/L 5-40 2218) HEMOGLOBIN [id number] 03:08:42 Test Item Value Reference Range Interpretation Comments HEMOGLOBIN A1c (test 8.0 % 4.2-5.6 H [employer]IC AN DIABETES code = 36799) ASSOCIATION [employer] FOR HGB A1C: PREDIABETES/INC REASED [...] LABORATORY C ONSULTATION. CBC W/AUTO DIFF WITH [id number] 01:59:57 Test Item Value Reference Range Interpretation [...] RBCS 0.00 K/UL 0.00-0.11 (test code = 37031) MAGNESIUM [ADDED]2021-09-16 00:00:00 Test Item Value Reference Range Interpretation Comments MAGNESIUM (test code = 2226) 1.9 MG/DL MAGNESIUM [ADDED]2021-09-16 00:00:00 Test Item Value Reference Range Interpretation Comments MAGNESIUM (test code = 2226) 1.9 MG/DL HEMOGLOBIN A1c [ADDED]2021-09-16 00:00:00 Test Item Value Reference Range Interpretation Comments HEMOGLOBIN A1c (test code = 56429) 8.0 % HEMOGLOBIN A1c [ADDED]2021-09-16 00:00:00 Test Item Value Reference Range Interpretation Comments HEMOGLOBIN A1c (test code = 64436) 8.0 % HEMOGLOBIN A1c [ADDED]2021-09-16 00:00:00 Test Item Value Reference Range Interpretation Comments HEMOGLOBIN A1c (test code = 62459) 8.0 % CBC W/AUTO DIFF WITH PLATELETS [ADDED]2021-09-16 00:00:00 Test Item Value Reference Range Interpretation Comments WBC (test code = 1001) 9.7 K/UL RBC (test code = 1002) 4.33 M/UL HEMOGLOBIN (test code = 1003) 11.4 G/DL HEMATOCRIT (test code = 1004) 35.4 % MCV (test code = 1005) 81.8 fL MCH (test code = 1006) 26.3 PG MCHC (test code = 1007) 32.2 G/DL RDW (test code = 1038) 13.8 % NEUTROPHILS (test code = 1008) 84.5 % LYMPHOCYTES (test code = 1010) 10.1 % MONOCYTES (test code = 1011) 3.5 % EOSINOPHILS (test code = 1012) 1.1 % BASOPHILS (test code = 1013) 0.4 % IMMATURE GRANULOCYTES (test 0.4 % code = 1036) NUCLEATED RBCS (test code = 0.0 /100WBC'S 1065) PLATELET COUNT (test code = 274 K/UL 1015) ABSOLUTE NEUTROPHILS (test code 8.22 K/UL = 1066) ABSOLUTE LYMPHOCYTES (test code 0.98 K/UL = 1067) ABSOLUTE MONOCYTES (test code = 0.34 K/UL 1068) ABSOLUTE EOSINOPHILS (test code 0.11 K/UL = 1040) ABSOLUTE BASOPHILS (test code = 0.04 K/UL 1069) ABS IMMATURE GRANULOCYTES (test 0.04 K/UL code = 1020) ABS NUCLEATED RBCS (test code = 0.00 K/UL 87619) CBC W/AUTO DIFF WITH PLATELETS [ADDED]2021-09-16 00:00:00 Test Item Value Reference Range Interpretation Comments WBC (test code = 1001) 9.7 K/UL RBC (test code = 1002) 4.33 M/UL HEMOGLOBIN (test code = 1003) 11.4 G/DL HEMATOCRIT (test code = 1004) 35.4 % MCV (test code = 1005) 81.8 fL MCH (test code = 1006) 26.3 PG MCHC (test code = 1007) 32.2 G/DL RDW (test code = 1038) 13.8 % NEUTROPHILS (test code = 1008) 84.5 % LYMPHOCYTES (test code = 1010) 10.1 % MONOCYTES (test code = 1011) 3.5 % EOSINOPHILS (test code = 1012) 1.1 % BASOPHILS (test code = 1013) 0.4 % IMMATURE GRANULOCYTES (test 0.4 % code = 1036) NUCLEATED RBCS (test code = 0.0 /100WBC'S 1065) PLATELET COUNT (test code = 274 K/UL 1015) ABSOLUTE NEUTROPHILS (test code 8.22 K/UL = 1066) ABSOLUTE LYMPHOCYTES (test code 0.98 K/UL = 1067) ABSOLUTE MONOCYTES (test code = 0.34 K/UL 1068) ABSOLUTE EOSINOPHILS (test code 0.11 K/UL = 1040) ABSOLUTE BASOPHILS (test code = 0.04 K/UL 1069) ABS IMMATURE GRANULOCYTES (test 0.04 K/UL code = 1020) ABS NUCLEATED RBCS (test code = 0.00 K/UL 27802) CBC W/AUTO DIFF WITH PLATELETS [ADDED]2021-09-16 00:00:00 Test Item Value Reference Range Interpretation Comments WBC (test code = 1001) 9.7 K/UL RBC (test code = 1002) 4.33 M/UL HEMOGLOBIN (test code = 1003) 11.4 G/DL HEMATOCRIT (test code = 1004) 35.4 % MCV (test code = 1005) 81.8 fL MCH (test code = 1006) 26.3 PG MCHC (test code = 1007) 32.2 G/DL RDW (test code = 1038) 13.8 % NEUTROPHILS (test code = 1008) 84.5 % LYMPHOCYTES (test code = 1010) 10.1 % MONOCYTES (test code = 1011) 3.5 % EOSINOPHILS (test code = 1012) 1.1 % BASOPHILS (test code = 1013) 0.4 % IMMATURE GRANULOCYTES (test 0.4 % code = 1036) NUCLEATED RBCS (test code = 0.0 /100WBC'S 1065) PLATELET COUNT (test code = 274 K/UL 1015) ABSOLUTE NEUTROPHILS (test code 8.22 K/UL = 1066) ABSOLUTE LYMPHOCYTES (test code 0.98 K/UL = 1067) ABSOLUTE MONOCYTES (test code = 0.34 K/UL 1068) ABSOLUTE EOSINOPHILS (test code 0.11 K/UL = 1040) ABSOLUTE BASOPHILS (test code = 0.04 K/UL 1069) ABS IMMATURE GRANULOCYTES (test 0.04 K/UL code = 1020) ABS NUCLEATED RBCS (test code = 0.00 K/UL 44087) IRON, SERUM [ADDED]2021-09-16 00:00:00 Test Item Value Reference Range Interpretation Comments IRON, SERUM (test code = 2222) 21 UG/DL IRON, SERUM [ADDED]2021-09-16 00:00:00 Test Item Value Reference Range Interpretation Comments IRON, SERUM (test code = 2222) 21 UG/DL LACTIC ACID, PLASMA [ADDED]2021-09-16 00:00:00 Test Item Value Reference Range Interpretation Comments LACTIC ACID, PLASMA (test code = 12.0 MG/DL 2056) LACTIC ACID, PLASMA [ADDED]2021-09-16 00:00:00 Test Item Value Reference Range Interpretation Comments LACTIC ACID, PLASMA (test code = 12.0 MG/DL 2056) COMPREHENSIVE METABOLIC PANEL [ADDED]2021-09-16 00:00:00 Test Item Value Reference Range Interpretation Comments GLUCOSE (test code = 2217) 193 MG/DL BUN (test code = 2208) 14 MG/DL CREATININE (test code = 2214) 0.68 MG/DL eGFR (2020 CKD-EPI) (test code 97 ML/MIN/1.73 = 07271) CALC BUN/CREAT (test code = 21 RATIO 2235) SODIUM (test code = 2231) 140 MEQ/L POTASSIUM (test code = 2228) 4.4 MEQ/L CHLORIDE (test code = 2215) 102 MEQ/L CARBON DIOXIDE (test code = 27 MEQ/L 2205) CALCIUM (test code = 2209) 9.0 MG/DL PROTEIN, TOTAL (test code = 5.9 G/DL 2228) ALBUMIN (test code = 2201) 3.8 G/DL CALC GLOBULIN (test code = 2.1 G/DL 2240) CALC A/G RATIO (test code = 1.8 RATIO 2234) BILIRUBIN, TOTAL (test code = <0.2 MG/DL 2206) ALKALINE PHOSPHATASE (test 61 U/L code = 2204) AST (test code = 2218) 24 U/L ALT (test code = 2219) 25 U/L COMPREHENSIVE METABOLIC PANEL [ADDED]2021-09-16 00:00:00 Test Item Value Reference Range Interpretation Comments GLUCOSE (test code = 2217) 193 MG/DL BUN (test code = 2208) 14 MG/DL CREATININE (test code = 2214) 0.68 MG/DL eGFR (2020 CKD-EPI) (test code 97 ML/MIN/1.73 = 33315) CALC BUN/CREAT (test code = 21 RATIO 2235) SODIUM (test code = 2231) 140 MEQ/L POTASSIUM (test code = 2228) 4.4 MEQ/L CHLORIDE (test code = 2215) 102 MEQ/L CARBON DIOXIDE (test code = 27 MEQ/L 2205) CALCIUM (test code = 2209) 9.0 MG/DL PROTEIN, TOTAL (test code = 5.9 G/DL 2228) ALBUMIN (test code = 2201) 3.8 G/DL CALC GLOBULIN (test code = 2.1 G/DL 2240) CALC A/G RATIO (test code = 1.8 RATIO 2234) BILIRUBIN, TOTAL (test code = <0.2 MG/DL 2206) ALKALINE PHOSPHATASE (test 61 U/L code = 2204) AST (test code = 2218) 24 U/L ALT (test code = 2219) 25 U/L MAGNESIUM [ADDED]2021-09-16 00:00:00 Test Item Value Reference Range Interpretation Comments MAGNESIUM (test code = 2226) 1.9 MG/DL MAGNESIUM [ADDED]2021-09-16 00:00:00 Test Item Value Reference Range Interpretation Comments MAGNESIUM (test code = 2226) 1.9 MG/DL MAGNESIUM [ADDED]2021-09-16 00:00:00 Test Item Value Reference Range Interpretation Comments MAGNESIUM (test code = 2226) 1.9 MG/DL HEMOGLOBIN A1c [ADDED]2021-09-16 00:00:00 Test Item Value Reference Range Interpretation Comments HEMOGLOBIN A1c (test code = 25428) 8.0 % HEMOGLOBIN A1c [ADDED]2021-09-16 00:00:00 Test Item Value Reference Range Interpretation Comments HEMOGLOBIN A1c (test code = 85134) 8.0 % HEMOGLOBIN A1c [ADDED]2021-09-16 00:00:00 Test Item Value Reference Range Interpretation Comments HEMOGLOBIN A1c (test code = 78262) 8.0 % CBC W/AUTO DIFF WITH PLATELETS [ADDED]2021-09-16 00:00:00 Test Item Value Reference Range Interpretation Comments WBC (test code = 1001) 9.7 K/UL RBC (test code = 1002) 4.33 M/UL HEMOGLOBIN (test code = 1003) 11.4 G/DL HEMATOCRIT (test code = 1004) 35.4 % MCV (test code = 1005) 81.8 fL MCH (test code = 1006) 26.3 PG MCHC (test code = 1007) 32.2 G/DL RDW (test code = 1038) 13.8 % NEUTROPHILS (test code = 1008) 84.5 % LYMPHOCYTES (test code = 1010) 10.1 % MONOCYTES (test code = 1011) 3.5 % EOSINOPHILS (test code = 1012) 1.1 % BASOPHILS (test code = 1013) 0.4 % IMMATURE GRANULOCYTES (test 0.4 % code = 1036) NUCLEATED RBCS (test code = 0.0 /100WBC'S 1065) PLATELET COUNT (test code = 274 K/UL 1015) ABSOLUTE NEUTROPHILS (test code 8.22 K/UL = 1066) ABSOLUTE LYMPHOCYTES (test code 0.98 K/UL = 1067) ABSOLUTE MONOCYTES (test code = 0.34 K/UL 1068) ABSOLUTE EOSINOPHILS (test code 0.11 K/UL = 1040) ABSOLUTE BASOPHILS (test code = 0.04 K/UL 1069) ABS IMMATURE GRANULOCYTES (test 0.04 K/UL code = 1020) ABS NUCLEATED RBCS (test code = 0.00 K/UL 33396) CBC W/AUTO DIFF WITH PLATELETS [ADDED]2021-09-16 00:00:00 Test Item Value Reference Range Interpretation Comments WBC (test code = 1001) 9.7 K/UL RBC (test code = 1002) 4.33 M/UL HEMOGLOBIN (test code = 1003) 11.4 G/DL HEMATOCRIT (test code = 1004) 35.4 % MCV (test code = 1005) 81.8 fL MCH (test code = 1006) 26.3 PG MCHC (test code = 1007) 32.2 G/DL RDW (test code = 1038) 13.8 % NEUTROPHILS (test code = 1008) 84.5 % LYMPHOCYTES (test code = 1010) 10.1 % MONOCYTES (test code = 1011) 3.5 % EOSINOPHILS (test code = 1012) 1.1 % BASOPHILS (test code = 1013) 0.4 % IMMATURE GRANULOCYTES (test 0.4 % code = 1036) NUCLEATED RBCS (test code = 0.0 /100WBC'S 1065) PLATELET COUNT (test code = 274 K/UL 1015) ABSOLUTE NEUTROPHILS (test code 8.22 K/UL = 1066) ABSOLUTE LYMPHOCYTES (test code 0.98 K/UL = 1067) ABSOLUTE MONOCYTES (test code = 0.34 K/UL 1068) ABSOLUTE EOSINOPHILS (test code 0.11 K/UL = 1040) ABSOLUTE BASOPHILS (test code = 0.04 K/UL 1069) ABS IMMATURE GRANULOCYTES (test 0.04 K/UL code = 1020) ABS NUCLEATED RBCS (test code = 0.00 K/UL 02676) CBC W/AUTO DIFF WITH PLATELETS [ADDED]2021-09-16 00:00:00 Test Item Value Reference Range Interpretation Comments WBC (test code = 1001) 9.7 K/UL RBC (test code = 1002) 4.33 M/UL HEMOGLOBIN (test code = 1003) 11.4 G/DL HEMATOCRIT (test code = 1004) 35.4 % MCV (test code = 1005) 81.8 fL MCH (test code = 1006) 26.3 PG MCHC (test code = 1007) 32.2 G/DL RDW (test code = 1038) 13.8 % NEUTROPHILS (test code = 1008) 84.5 % LYMPHOCYTES (test code = 1010) 10.1 % MONOCYTES (test code = 1011) 3.5 % EOSINOPHILS (test code = 1012) 1.1 % BASOPHILS (test code = 1013) 0.4 % IMMATURE GRANULOCYTES (test 0.4 % code = 1036) NUCLEATED RBCS (test code = 0.0 /100WBC'S 1065) PLATELET COUNT (test code = 274 K/UL 1015) ABSOLUTE NEUTROPHILS (test code 8.22 K/UL = 1066) ABSOLUTE LYMPHOCYTES (test code 0.98 K/UL = 1067) ABSOLUTE MONOCYTES (test code = 0.34 K/UL 1068) ABSOLUTE EOSINOPHILS (test code 0.11 K/UL = 1040) ABSOLUTE BASOPHILS (test code = 0.04 K/UL 1069) ABS IMMATURE GRANULOCYTES (test 0.04 K/UL code = 1020) ABS NUCLEATED RBCS (test code = 0.00 K/UL 77142) IRON, SERUM [ADDED]2021-09-16 00:00:00 Test Item Value Reference Range Interpretation Comments IRON, SERUM (test code = 2222) 21 UG/DL IRON, SERUM [ADDED]2021-09-16 00:00:00 Test Item Value Reference Range Interpretation Comments IRON, SERUM (test code = 2222) 21 UG/DL LACTIC ACID, PLASMA [ADDED]2021-09-16 00:00:00 Test Item Value Reference Range Interpretation Comments LACTIC ACID, PLASMA (test code = 12.0 MG/DL 2056) LACTIC ACID, PLASMA [ADDED]2021-09-16 00:00:00 Test Item Value Reference Range Interpretation Comments LACTIC ACID, PLASMA (test code = 12.0 MG/DL 2056) COMPREHENSIVE METABOLIC PANEL [ADDED]2021-09-16 00:00:00 Test Item Value Reference Range Interpretation Comments GLUCOSE (test code = 2217) 193 MG/DL BUN (test code = 2208) 14 MG/DL CREATININE (test code = 2214) 0.68 MG/DL eGFR (2020 CKD-EPI) (test code 97 ML/MIN/1.73 = 54586) CALC BUN/CREAT (test code = 21 RATIO 2235) SODIUM (test code = 2231) 140 MEQ/L POTASSIUM (test code = 2228) 4.4 MEQ/L CHLORIDE (test code = 2215) 102 MEQ/L CARBON DIOXIDE (test code = 27 MEQ/L 2205) CALCIUM (test code = 2209) 9.0 MG/DL PROTEIN, TOTAL (test code = 5.9 G/DL 2228) ALBUMIN (test code = 2201) 3.8 G/DL CALC GLOBULIN (test code = 2.1 G/DL 2240) CALC A/G RATIO (test code = 1.8 RATIO 2234) BILIRUBIN, TOTAL (test code = <0.2 MG/DL 2206) ALKALINE PHOSPHATASE (test 61 U/L code = 2204) AST (test code = 2218) 24 U/L ALT (test code = 2219) 25 U/L COMPREHENSIVE METABOLIC PANEL [ADDED]2021-09-16 00:00:00 Test Item Value Reference Range Interpretation Comments GLUCOSE (test code = 2217) 193 MG/DL BUN (test code = 2208) 14 MG/DL CREATININE (test code = 2214) 0.68 MG/DL eGFR (2020 CKD-EPI) (test code 97 ML/MIN/1.73 = 21935) CALC BUN/CREAT (test code = 21 RATIO 2235) SODIUM (test code = 2231) 140 MEQ/L POTASSIUM (test code = 2228) 4.4 MEQ/L CHLORIDE (test code = 2215) 102 MEQ/L CARBON DIOXIDE (test code = 27 MEQ/L 2205) CALCIUM (test code = 2209) 9.0 MG/DL PROTEIN, TOTAL (test code = 5.9 G/DL 2228) ALBUMIN (test code = 2201) 3.8 G/DL CALC GLOBULIN (test code = 2.1 G/DL 2240) CALC A/G RATIO (test code = 1.8 RATIO 2234) BILIRUBIN, TOTAL (test code = <0.2 MG/DL 2206) ALKALINE PHOSPHATASE (test 61 U/L code = 2204) AST (test code = 2218) 24 U/L ALT (test code = 2219) 25 U/L MAGNESIUM [ADDED]2021-09-16 00:00:00 Test Item Value Reference Range Interpretation Comments MAGNESIUM (test code = 2226) 1.9 MG/DL MAGNESIUM [ADDED]2021-09-16 00:00:00 Test Item Value Reference Range Interpretation Comments MAGNESIUM (test code = 2226) 1.9 MG/DL MAGNESIUM [ADDED]2021-09-16 00:00:00 Test Item Value Reference Range Interpretation Comments MAGNESIUM (test code = 2226) 1.9 MG/DL HEMOGLOBIN A1c [ADDED]2021-09-16 00:00:00 Test Item Value Reference Range Interpretation Comments HEMOGLOBIN A1c (test code = 26232) 8.0 % HEMOGLOBIN A1c [ADDED]2021-09-16 00:00:00 Test Item Value Reference Range Interpretation Comments HEMOGLOBIN A1c (test code = 42385) 8.0 % HEMOGLOBIN A1c [ADDED]2021-09-16 00:00:00 Test Item Value Reference Range Interpretation Comments HEMOGLOBIN A1c (test code = 26198) 8.0 % CBC W/AUTO DIFF WITH PLATELETS [ADDED]2021-09-16 00:00:00 Test Item Value Reference Range Interpretation Comments WBC (test code = 1001) 9.7 K/UL RBC (test code = 1002) 4.33 M/UL HEMOGLOBIN (test code = 1003) 11.4 G/DL HEMATOCRIT (test code = 1004) 35.4 % MCV (test code = 1005) 81.8 fL MCH (test code = 1006) 26.3 PG MCHC (test code = 1007) 32.2 G/DL RDW (test code = 1038) 13.8 % NEUTROPHILS (test code = 1008) 84.5 % LYMPHOCYTES (test code = 1010) 10.1 % MONOCYTES (test code = 1011) 3.5 % EOSINOPHILS (test code = 1012) 1.1 % BASOPHILS (test code = 1013) 0.4 % IMMATURE GRANULOCYTES (test 0.4 % code = 1036) NUCLEATED RBCS (test code = 0.0 /100WBC'S 1065) PLATELET COUNT (test code = 274 K/UL 1015) ABSOLUTE NEUTROPHILS (test code 8.22 K/UL = 1066) ABSOLUTE LYMPHOCYTES (test code 0.98 K/UL = 1067) ABSOLUTE MONOCYTES (test code = 0.34 K/UL 1068) ABSOLUTE EOSINOPHILS (test code 0.11 K/UL = 1040) ABSOLUTE BASOPHILS (test code = 0.04 K/UL 1069) ABS IMMATURE GRANULOCYTES (test 0.04 K/UL code = 1020) ABS NUCLEATED RBCS (test code = 0.00 K/UL 85333) CBC W/AUTO DIFF WITH PLATELETS [ADDED]2021-09-16 00:00:00 Test Item Value Reference Range Interpretation Comments WBC (test code = 1001) 9.7 K/UL RBC (test code = 1002) 4.33 M/UL HEMOGLOBIN (test code = 1003) 11.4 G/DL HEMATOCRIT (test code = 1004) 35.4 % MCV (test code = 1005) 81.8 fL MCH (test code = 1006) 26.3 PG MCHC (test code = 1007) 32.2 G/DL RDW (test code = 1038) 13.8 % NEUTROPHILS (test code = 1008) 84.5 % LYMPHOCYTES (test code = 1010) 10.1 % MONOCYTES (test code = 1011) 3.5 % EOSINOPHILS (test code = 1012) 1.1 % BASOPHILS (test code = 1013) 0.4 % IMMATURE GRANULOCYTES (test 0.4 % code = 1036) NUCLEATED RBCS (test code = 0.0 /100WBC'S 1065) PLATELET COUNT (test code = 274 K/UL 1015) ABSOLUTE NEUTROPHILS (test code 8.22 K/UL = 1066) ABSOLUTE LYMPHOCYTES (test code 0.98 K/UL = 1067) ABSOLUTE MONOCYTES (test code = 0.34 K/UL 1068) ABSOLUTE EOSINOPHILS (test code 0.11 K/UL = 1040) ABSOLUTE BASOPHILS (test code = 0.04 K/UL 1069) ABS IMMATURE GRANULOCYTES (test 0.04 K/UL code = 1020) ABS NUCLEATED RBCS (test code = 0.00 K/UL 05016) CBC W/AUTO DIFF WITH PLATELETS [ADDED]2021-09-16 00:00:00 Test Item Value Reference Range Interpretation Comments WBC (test code = 1001) 9.7 K/UL RBC (test code = 1002) 4.33 M/UL HEMOGLOBIN (test code = 1003) 11.4 G/DL HEMATOCRIT (test code = 1004) 35.4 % MCV (test code = 1005) 81.8 fL MCH (test code = 1006) 26.3 PG MCHC (test code = 1007) 32.2 G/DL RDW (test code = 1038) 13.8 % NEUTROPHILS (test code = 1008) 84.5 % LYMPHOCYTES (test code = 1010) 10.1 % MONOCYTES (test code = 1011) 3.5 % EOSINOPHILS (test code = 1012) 1.1 % BASOPHILS (test code = 1013) 0.4 % IMMATURE GRANULOCYTES (test 0.4 % code = 1036) NUCLEATED RBCS (test code = 0.0 /100WBC'S 1065) PLATELET COUNT (test code = 274 K/UL 1015) ABSOLUTE NEUTROPHILS (test code 8.22 K/UL = 1066) ABSOLUTE LYMPHOCYTES (test code 0.98 K/UL = 1067) ABSOLUTE MONOCYTES (test code = 0.34 K/UL 1068) ABSOLUTE EOSINOPHILS (test code 0.11 K/UL = 1040) ABSOLUTE BASOPHILS (test code = 0.04 K/UL 1069) ABS IMMATURE GRANULOCYTES (test 0.04 K/UL code = 1020) ABS NUCLEATED RBCS (test code = 0.00 K/UL 63936) IRON, SERUM [ADDED]2021-09-16 00:00:00 Test Item Value Reference Range Interpretation Comments IRON, SERUM (test code = 2222) 21 UG/DL IRON, SERUM [ADDED]2021-09-16 00:00:00 Test Item Value Reference Range Interpretation Comments IRON, SERUM (test code = 2222) 21 UG/DL LACTIC ACID, PLASMA [ADDED]2021-09-16 00:00:00 Test Item Value Reference Range Interpretation Comments LACTIC ACID, PLASMA (test code = 12.0 MG/DL 2056) LACTIC ACID, PLASMA [ADDED]2021-09-16 00:00:00 Test Item Value Reference Range Interpretation Comments LACTIC ACID, PLASMA (test code = 12.0 MG/DL 2056) COMPREHENSIVE METABOLIC PANEL [ADDED]2021-09-16 00:00:00 Test Item Value Reference Range Interpretation Comments GLUCOSE (test code = 2217) 193 MG/DL BUN (test code = 2208) 14 MG/DL CREATININE (test code = 2214) 0.68 MG/DL eGFR (2020 CKD-EPI) (test code 97 ML/MIN/1.73 = 19953) CALC BUN/CREAT (test code = 21 RATIO 2235) SODIUM (test code = 2231) 140 MEQ/L POTASSIUM (test code = 2228) 4.4 MEQ/L CHLORIDE (test code = 2215) 102 MEQ/L CARBON DIOXIDE (test code = 27 MEQ/L 2205) CALCIUM (test code = 2209) 9.0 MG/DL PROTEIN, TOTAL (test code = 5.9 G/DL 2228) ALBUMIN (test code = 2201) 3.8 G/DL CALC GLOBULIN (test code = 2.1 G/DL 2239) CALC A/G RATIO (test code = 1.8 RATIO 2233) BILIRUBIN, TOTAL (test code = <0.2 MG/DL 2206) ALKALINE PHOSPHATASE (test 61 U/L code = 2204) AST (test code = 2218) 24 U/L ALT (test code = 2219) 25 U/L COMPREHENSIVE METABOLIC PANEL [ADDED]2021-09-16 00:00:00 Test Item Value Reference Range Interpretation Comments GLUCOSE (test code = 2217) 193 MG/DL BUN (test code = 2208) 14 MG/DL CREATININE (test code = 2214) 0.68 MG/DL eGFR (2020 CKD-EPI) (test code 97 ML/MIN/1.73 = 27418) CALC BUN/CREAT (test code = 21 RATIO 2235) SODIUM (test code = 2231) 140 MEQ/L POTASSIUM (test code = 2228) 4.4 MEQ/L CHLORIDE (test code = 2215) 102 MEQ/L CARBON DIOXIDE (test code = 27 MEQ/L 2205) CALCIUM (test code = 2209) 9.0 MG/DL PROTEIN, TOTAL (test code = 5.9 G/DL 2228) ALBUMIN (test code = 2201) 3.8 G/DL CALC GLOBULIN (test code = 2.1 G/DL 2239) CALC A/G RATIO (test code = 1.8 RATIO 4) BILIRUBIN, TOTAL (test code = <0.2 MG/DL 2206) ALKALINE PHOSPHATASE (test 61 U/L code = 2204) AST (test code = 2218) 24 U/L ALT (test code = 2219) 25 U/L MAGNESIUM [ADDED]2021-09-16 00:00:00 Test Item Value Reference Range Interpretation Comments MAGNESIUM (test code = 2226) 1.9 MG/DL MAGNESIUM [ADDED]2021-09-16 00:00:00 Test Item Value Reference Range Interpretation Comments MAGNESIUM (test code = 2226) 1.9 MG/DL MAGNESIUM [ADDED]2021-09-16 00:00:00 Test Item Value Reference Range Interpretation Comments MAGNESIUM (test code = 2226) 1.9 MG/DL HEMOGLOBIN A1c [ADDED]2021-09-16 00:00:00 Test Item Value Reference Range Interpretation Comments HEMOGLOBIN A1c (test code = 70650) 8.0 % HEMOGLOBIN A1c [ADDED]2021-09-16 00:00:00 Test Item Value Reference Range Interpretation Comments HEMOGLOBIN A1c (test code = 20264) 8.0 % HEMOGLOBIN A1c [ADDED]2021-09-16 00:00:00 Test Item Value Reference Range Interpretation Comments HEMOGLOBIN A1c (test code = 73373) 8.0 % CBC W/AUTO DIFF WITH PLATELETS [ADDED]2021-09-16 00:00:00 Test Item Value Reference Range Interpretation Comments WBC (test code = 1001) 9.7 K/UL RBC (test code = 1002) 4.33 M/UL HEMOGLOBIN (test code = 1003) 11.4 G/DL HEMATOCRIT (test code = 1004) 35.4 % MCV (test code = 1005) 81.8 fL MCH (test code = 1006) 26.3 PG MCHC (test code = 1007) 32.2 G/DL RDW (test code = 1038) 13.8 % NEUTROPHILS (test code = 1008) 84.5 % LYMPHOCYTES (test code = 1010) 10.1 % MONOCYTES (test code = 1011) 3.5 % EOSINOPHILS (test code = 1012) 1.1 % BASOPHILS (test code = 1013) 0.4 % IMMATURE GRANULOCYTES (test 0.4 % code = 1036) NUCLEATED RBCS (test code = 0.0 /100WBC'S 1065) PLATELET COUNT (test code = 274 K/UL 1015) ABSOLUTE NEUTROPHILS (test code 8.22 K/UL = 1066) ABSOLUTE LYMPHOCYTES (test code 0.98 K/UL = 1067) ABSOLUTE MONOCYTES (test code = 0.34 K/UL 1068) ABSOLUTE EOSINOPHILS (test code 0.11 K/UL = 1040) ABSOLUTE BASOPHILS (test code = 0.04 K/UL 1069) ABS IMMATURE GRANULOCYTES (test 0.04 K/UL code = 1020) ABS NUCLEATED RBCS (test code = 0.00 K/UL 47356) CBC W/AUTO DIFF WITH PLATELETS [ADDED]2021-09-16 00:00:00 Test Item Value Reference Range Interpretation Comments WBC (test code = 1001) 9.7 K/UL RBC (test code = 1002) 4.33 M/UL HEMOGLOBIN (test code = 1003) 11.4 G/DL HEMATOCRIT (test code = 1004) 35.4 % MCV (test code = 1005) 81.8 fL MCH (test code = 1006) 26.3 PG MCHC (test code = 1007) 32.2 G/DL RDW (test code = 1038) 13.8 % NEUTROPHILS (test code = 1008) 84.5 % LYMPHOCYTES (test code = 1010) 10.1 % MONOCYTES (test code = 1011) 3.5 % EOSINOPHILS (test code = 1012) 1.1 % BASOPHILS (test code = 1013) 0.4 % IMMATURE GRANULOCYTES (test 0.4 % code = 1036) NUCLEATED RBCS (test code = 0.0 /100WBC'S 1065) PLATELET COUNT (test code = 274 K/UL 1015) ABSOLUTE NEUTROPHILS (test code 8.22 K/UL = 1066) ABSOLUTE LYMPHOCYTES (test code 0.98 K/UL = 1067) ABSOLUTE MONOCYTES (test code = 0.34 K/UL 1068) ABSOLUTE EOSINOPHILS (test code 0.11 K/UL = 1040) ABSOLUTE BASOPHILS (test code = 0.04 K/UL 1069) ABS IMMATURE GRANULOCYTES (test 0.04 K/UL code = 1020) ABS NUCLEATED RBCS (test code = 0.00 K/UL 69803) CBC W/AUTO DIFF WITH PLATELETS [ADDED]2021-09-16 00:00:00 Test Item Value Reference Range Interpretation Comments WBC (test code = 1001) 9.7 K/UL RBC (test code = 1002) 4.33 M/UL HEMOGLOBIN (test code = 1003) 11.4 G/DL HEMATOCRIT (test code = 1004) 35.4 % MCV (test code = 1005) 81.8 fL MCH (test code = 1006) 26.3 PG MCHC (test code = 1007) 32.2 G/DL RDW (test code = 1038) 13.8 % NEUTROPHILS (test code = 1008) 84.5 % LYMPHOCYTES (test code = 1010) 10.1 % MONOCYTES (test code = 1011) 3.5 % EOSINOPHILS (test code = 1012) 1.1 % BASOPHILS (test code = 1013) 0.4 % IMMATURE GRANULOCYTES (test 0.4 % code = 1036) NUCLEATED RBCS (test code = 0.0 /100WBC'S 1065) PLATELET COUNT (test code = 274 K/UL 1015) ABSOLUTE NEUTROPHILS (test code 8.22 K/UL = 1066) ABSOLUTE LYMPHOCYTES (test code 0.98 K/UL = 1067) ABSOLUTE MONOCYTES (test code = 0.34 K/UL 1068) ABSOLUTE EOSINOPHILS (test code 0.11 K/UL = 1040) ABSOLUTE BASOPHILS (test code = 0.04 K/UL 1069) ABS IMMATURE GRANULOCYTES (test 0.04 K/UL code = 1020) ABS NUCLEATED RBCS (test code = 0.00 K/UL 28704) IRON, SERUM [ADDED]2021-09-16 00:00:00 Test Item Value Reference Range Interpretation Comments IRON, SERUM (test code = 2222) 21 UG/DL IRON, SERUM [ADDED]2021-09-16 00:00:00 Test Item Value Reference Range Interpretation Comments IRON, SERUM (test code = 2222) 21 UG/DL LACTIC ACID, PLASMA [ADDED]2021-09-16 00:00:00 Test Item Value Reference Range Interpretation Comments LACTIC ACID, PLASMA (test code = 12.0 MG/DL 2056) LACTIC ACID, PLASMA [ADDED]2021-09-16 00:00:00 Test Item Value Reference Range Interpretation Comments LACTIC ACID, PLASMA (test code = 12.0 MG/DL 2056) COMPREHENSIVE METABOLIC PANEL [ADDED]2021-09-16 00:00:00 Test Item Value Reference Range Interpretation Comments GLUCOSE (test code = 2217) 193 MG/DL BUN (test code = 2208) 14 MG/DL CREATININE (test code = 2214) 0.68 MG/DL eGFR (2020 CKD-EPI) (test code 97 ML/MIN/1.73 = 70534) CALC BUN/CREAT (test code = 21 RATIO 2235) SODIUM (test code = 2231) 140 MEQ/L POTASSIUM (test code = 2228) 4.4 MEQ/L CHLORIDE (test code = 2215) 102 MEQ/L CARBON DIOXIDE (test code = 27 MEQ/L 2205) CALCIUM (test code = 2209) 9.0 MG/DL PROTEIN, TOTAL (test code = 5.9 G/DL 2228) ALBUMIN (test code = 2201) 3.8 G/DL CALC GLOBULIN (test code = 2.1 G/DL 2239) CALC A/G RATIO (test code = 1.8 RATIO 223) BILIRUBIN, TOTAL (test code = <0.2 MG/DL 2206) ALKALINE PHOSPHATASE (test 61 U/L code = 2204) AST (test code = 2218) 24 U/L ALT (test code = 2219) 25 U/L COMPREHENSIVE METABOLIC PANEL [ADDED]2021-09-16 00:00:00 Test Item Value Reference Range Interpretation Comments GLUCOSE (test code = 2217) 193 MG/DL BUN (test code = 2208) 14 MG/DL CREATININE (test code = 2214) 0.68 MG/DL eGFR (2020 CKD-EPI) (test code 97 ML/MIN/1.73 = 07411) CALC BUN/CREAT (test code = 21 RATIO 2235) SODIUM (test code = 2231) 140 MEQ/L POTASSIUM (test code = 2228) 4.4 MEQ/L CHLORIDE (test code = 2215) 102 MEQ/L CARBON DIOXIDE (test code = 27 MEQ/L 2205) CALCIUM (test code = 2209) 9.0 MG/DL PROTEIN, TOTAL (test code = 5.9 G/DL 2228) ALBUMIN (test code = 2201) 3.8 G/DL CALC GLOBULIN (test code = 2.1 G/DL 2239) CALC A/G RATIO (test code = 1.8 RATIO 2233) BILIRUBIN, TOTAL (test code = <0.2 MG/DL 2206) ALKALINE PHOSPHATASE (test 61 U/L code = 2204) AST (test code = 2218) 24 U/L ALT (test code = 2219) 25 U/L MAGNESIUM [ADDED]2021-09-16 00:00:00 Test Item Value Reference Range Interpretation Comments MAGNESIUM (test code = 2226) 1.9 MG/DL LACTIC ACID, [id number] 14:02:14 Test Item Value Reference Range Interpretation Comments LACTIC ACID, PLASMA (test code = 15.2 MG/DL 4.5-19.8 2056) LACTIC ACID, PLASMA [ADDED]2021-08-20 00:00:00 Test Item Value Reference Range Interpretation Comments LACTIC ACID, PLASMA (test code = 15.2 MG/DL 2056) LACTIC ACID, PLASMA [ADDED]2021-08-20 00:00:00 Test Item Value Reference Range Interpretation Comments LACTIC ACID, PLASMA (test code = 15.2 MG/DL 2056) LACTIC ACID, PLASMA [ADDED]2021-08-20 00:00:00 Test Item Value Reference Range Interpretation Comments LACTIC ACID, PLASMA (test code = 15.2 MG/DL 2056) LACTIC ACID, PLASMA [ADDED]2021-08-20 00:00:00 Test Item Value Reference Range Interpretation Comments LACTIC ACID, PLASMA (test code = 15.2 MG/DL 2056) LACTIC ACID, PLASMA [ADDED]2021-08-20 00:00:00 Test Item Value Reference Range Interpretation Comments LACTIC ACID, PLASMA (test code = 15.2 MG/DL 2056) LACTIC ACID, PLASMA [ADDED]2021-08-20 00:00:00 Test Item Value Reference Range Interpretation Comments LACTIC ACID, PLASMA (test code = 15.2 MG/DL 2056) LACTIC ACID, PLASMA [ADDED]2021-08-20 00:00:00 Test Item Value Reference Range Interpretation Comments LACTIC ACID, PLASMA (test code = 15.2 MG/DL 2056) LACTIC ACID, PLASMA [ADDED]2021-08-20 00:00:00 Test Item Value Reference Range Interpretation Comments LACTIC ACID, PLASMA (test code = 15.2 MG/DL 2056) COMPREHENSIVE METABOLIC [id number] 04:08:01 Test Item Value Reference Range Interpretation Comments GLUCOSE (test code = 104 MG/DL 70-99 H 2216) BUN (test code = 17 MG/DL 8-2207) CREATININE (test 0.73 MG/DL 0.60-1.30 code = 2214) eGFR (2020 CKD-EPI) 91 >60 (test code = 09522) ML/MIN/1.73 CALC BUN/CREAT (test 23 RATIO 6-28 code = 2235) SODIUM (test code = 141 MEQ/L 492-942 3805) POTASSIUM (test code 4.7 MEQ/L 3.5-5.4 = 2227) CHLORIDE (test code 100 MEQ/L 95-107 = 2215) CARBON DIOXIDE (test 29 MEQ/L 19-31 code [...] [facility] [address] [place] [address] [facility] DIRECTOR: TITA PARIKH M.D. CLIA NUMBER [id number] CAP ACCREDITATION N O. [id number] COMPREHENSIVE METABOLIC PANEL [ADDED]2021-08-19 00:00:00 Test Item Value Reference Range Interpretation Comments GLUCOSE (test code = 2217) 104 MG/DL BUN (test code = 2208) 17 MG/DL CREATININE (test code = 2214) 0.73 MG/DL eGFR (2020 CKD-EPI) (test code 91 ML/MIN/1.73 = 10444) CALC BUN/CREAT (test code = 23 RATIO 2235) SODIUM (test code = 2231) 141 MEQ/L POTASSIUM (test code = 2228) 4.7 MEQ/L CHLORIDE (test code = 2215) 100 MEQ/L CARBON DIOXIDE (test code = 29 MEQ/L 2205) CALCIUM (test code = 2209) 9.9 MG/DL PROTEIN, TOTAL (test code = 6.5 G/DL 2228) ALBUMIN (test code = 2201) 4.4 G/DL CALC GLOBULIN (test code = 2.1 G/DL 2239) CALC A/G RATIO (test code = 2.1 RATIO 2234) BILIRUBIN, TOTAL (test code = 0.2 MG/DL 2206) ALKALINE PHOSPHATASE (test 65 U/L code = 2204) AST (test code = 2218) 26 U/L ALT (test code = 2219) 25 U/L COMPREHENSIVE METABOLIC PANEL [ADDED]2021-08-19 00:00:00 Test Item Value Reference Range Interpretation Comments GLUCOSE (test code = 2217) 104 MG/DL BUN (test code = 2208) 17 MG/DL CREATININE (test code = 2214) 0.73 MG/DL eGFR (2020 CKD-EPI) (test code 91 ML/MIN/1.73 = 00977) CALC BUN/CREAT (test code = 23 RATIO 2235) SODIUM (test code = 2231) 141 MEQ/L POTASSIUM (test code = 2228) 4.7 MEQ/L CHLORIDE (test code = 2215) 100 MEQ/L CARBON DIOXIDE (test code = 29 MEQ/L 220) CALCIUM (test code = 2209) 9.9 MG/DL PROTEIN, TOTAL (test code = 6.5 G/DL 2228) ALBUMIN (test code = 2201) 4.4 G/DL CALC GLOBULIN (test code = 2.1 G/DL 2240) CALC A/G RATIO (test code = 2.1 RATIO 2234) BILIRUBIN, TOTAL (test code = 0.2 MG/DL 2206) ALKALINE PHOSPHATASE (test 65 U/L code = 2204) AST (test code = 2218) 26 U/L ALT (test code = 2219) 25 U/L COMPREHENSIVE METABOLIC PANEL [ADDED]2021-08-19 00:00:00 Test Item Value Reference Range Interpretation Comments GLUCOSE (test code = 2217) 104 MG/DL BUN (test code = 2208) 17 MG/DL CREATININE (test code = 2214) 0.73 MG/DL eGFR (2020 CKD-EPI) (test code 91 ML/MIN/1.73 = 69845) CALC BUN/CREAT (test code = 23 RATIO 2235) SODIUM (test code = 2231) 141 MEQ/L POTASSIUM (test code = 2228) 4.7 MEQ/L CHLORIDE (test code = 2215) 100 MEQ/L CARBON DIOXIDE (test code = 29 MEQ/L 2205) CALCIUM (test code = 2209) 9.9 MG/DL PROTEIN, TOTAL (test code = 6.5 G/DL 2228) ALBUMIN (test code = 2201) 4.4 G/DL CALC GLOBULIN (test code = 2.1 G/DL 2240) CALC A/G RATIO (test code = 2.1 RATIO 2234) BILIRUBIN, TOTAL (test code = 0.2 MG/DL 2206) ALKALINE PHOSPHATASE (test 65 U/L code = 2204) AST (test code = 2218) 26 U/L ALT (test code = 2219) 25 U/L COMPREHENSIVE METABOLIC PANEL [ADDED]2021-08-19 00:00:00 Test Item Value Reference Range Interpretation Comments GLUCOSE (test code = 2217) 104 MG/DL BUN (test code = 2208) 17 MG/DL CREATININE (test code = 2214) 0.73 MG/DL eGFR (2020 CKD-EPI) (test code 91 ML/MIN/1.73 = 78629) CALC BUN/CREAT (test code = 23 RATIO 2235) SODIUM (test code = 2231) 141 MEQ/L POTASSIUM (test code = 2228) 4.7 MEQ/L CHLORIDE (test code = 2215) 100 MEQ/L CARBON DIOXIDE (test code = 29 MEQ/L 220) CALCIUM (test code = 2209) 9.9 MG/DL PROTEIN, TOTAL (test code = 6.5 G/DL 2228) ALBUMIN (test code = 2201) 4.4 G/DL CALC GLOBULIN (test code = 2.1 G/DL 2240) CALC A/G RATIO (test code = 2.1 RATIO 2234) BILIRUBIN, TOTAL (test code = 0.2 MG/DL 2206) ALKALINE PHOSPHATASE (test 65 U/L code = 2204) AST (test code = 2218) 26 U/L ALT (test code = 2219) 25 U/L COMPREHENSIVE METABOLIC PANEL [ADDED]2021-08-19 00:00:00 Test Item Value Reference Range Interpretation Comments GLUCOSE (test code = 2217) 104 MG/DL BUN (test code = 2208) 17 MG/DL CREATININE (test code = 2214) 0.73 MG/DL eGFR (2020 CKD-EPI) (test code 91 ML/MIN/1.73 = 07434) CALC BUN/CREAT (test code = 23 RATIO 2235) SODIUM (test code = 2231) 141 MEQ/L POTASSIUM (test code = 2228) 4.7 MEQ/L CHLORIDE (test code = 2215) 100 MEQ/L CARBON DIOXIDE (test code = 29 MEQ/L 2206) CALCIUM (test code = 2209) 9.9 MG/DL PROTEIN, TOTAL (test code = 6.5 G/DL 2228) ALBUMIN (test code = 2201) 4.4 G/DL CALC GLOBULIN (test code = 2.1 G/DL 2240) CALC A/G RATIO (test code = 2.1 RATIO 2234) BILIRUBIN, TOTAL (test code = 0.2 MG/DL 2206) ALKALINE PHOSPHATASE (test 65 U/L code = 2204) AST (test code = 2218) 26 U/L ALT (test code = 2219) 25 U/L COMPREHENSIVE METABOLIC PANEL [ADDED]2021-08-19 00:00:00 Test Item Value Reference Range Interpretation Comments GLUCOSE (test code = 2217) 104 MG/DL BUN (test code = 2208) 17 MG/DL CREATININE (test code = 2214) 0.73 MG/DL eGFR (2020 CKD-EPI) (test code 91 ML/MIN/1.73 = 56236) CALC BUN/CREAT (test code = 23 RATIO 2235) SODIUM (test code = 2231) 141 MEQ/L POTASSIUM (test code = 2228) 4.7 MEQ/L CHLORIDE (test code = 2215) 100 MEQ/L CARBON DIOXIDE (test code = 29 MEQ/L 2205) CALCIUM (test code = 2209) 9.9 MG/DL PROTEIN, TOTAL (test code = 6.5 G/DL 2228) ALBUMIN (test code = 2201) 4.4 G/DL CALC GLOBULIN (test code = 2.1 G/DL 2240) CALC A/G RATIO (test code = 2.1 RATIO 2234) BILIRUBIN, TOTAL (test code = 0.2 MG/DL 2206) ALKALINE PHOSPHATASE (test 65 U/L code = 2204) AST (test code = 2218) 26 U/L ALT (test code = 2219) 25 U/L COMPREHENSIVE METABOLIC PANEL [ADDED]2021-08-19 00:00:00 Test Item Value Reference Range Interpretation Comments GLUCOSE (test code = 2217) 104 MG/DL BUN (test code = 2208) 17 MG/DL CREATININE (test code = 2214) 0.73 MG/DL eGFR (2020 CKD-EPI) (test code 91 ML/MIN/1.73 = 03603) CALC BUN/CREAT (test code = 23 RATIO 2235) SODIUM (test code = 2231) 141 MEQ/L POTASSIUM (test code = 2228) 4.7 MEQ/L CHLORIDE (test code = 2215) 100 MEQ/L CARBON DIOXIDE (test code = 29 MEQ/L 220) CALCIUM (test code = 2209) 9.9 MG/DL PROTEIN, TOTAL (test code = 6.5 G/DL 222) ALBUMIN (test code = 2201) 4.4 G/DL CALC GLOBULIN (test code = 2.1 G/DL 2240) CALC A/G RATIO (test code = 2.1 RATIO 2234) BILIRUBIN, TOTAL (test code = 0.2 MG/DL 220) ALKALINE PHOSPHATASE (test 65 U/L code = 2204) AST (test code = 2218) 26 U/L ALT (test code = 2219) 25 U/L COMPREHENSIVE METABOLIC PANEL [ADDED]2021-08-19 00:00:00 Test Item Value Reference Range Interpretation Comments GLUCOSE (test code = 2217) 104 MG/DL BUN (test code = 2208) 17 MG/DL CREATININE (test code = 2214) 0.73 MG/DL eGFR (2020 CKD-EPI) (test code 91 ML/MIN/1.73 = 30008) CALC BUN/CREAT (test code = 23 RATIO 2235) SODIUM (test code = 2231) 141 MEQ/L POTASSIUM (test code = 2228) 4.7 MEQ/L CHLORIDE (test code = 2215) 100 MEQ/L CARBON DIOXIDE (test code = 29 MEQ/L 2205) CALCIUM (test code = 2209) 9.9 MG/DL PROTEIN, TOTAL (test code = 6.5 G/DL 2228) ALBUMIN (test code = 2201) 4.4 G/DL CALC GLOBULIN (test code = 2.1 G/DL 2240) CALC A/G RATIO (test code = 2.1 RATIO 2234) BILIRUBIN, TOTAL (test code = 0.2 MG/DL 2206) ALKALINE PHOSPHATASE (test 65 U/L code = 2204) AST (test code = 2218) 26 U/L ALT (test code = 2219) 25 U/L POC [id number] 16:05:00 Test Item Value Reference Range Interpretation Comments POC glucose (test code 354 mg/dL 65-99 Opera tor Name: Celeste = [id number]) BillyukhemaluDe ID: [id number] Lab Interpretation Abnormal (test code = 54038-1) [facility] [id number] 16:05:00 Test Item Value Reference Range Interpretation Comments POC glucose (test code 354 mg/dL 65-99 HH tor Name: Celeste = [id number]) NwachukwuDevice ID: [id number] Lab Interpretation Abnormal (test code = 31537-9) [facility] [id number] 16:05:00 Test Item Value Reference Range Interpretation Comments POC glucose (test code 354 mg/dL 65-99 HH tor Name: Celeste = [id number]) NwachukwuDevice ID: [id number] Lab Interpretation Abnormal (test code = 36449-7) [place] [address] [id number] 01:04:59 Test Item Value Reference Range Interpretation Comments Ventricular rate (test code = 253) Atrial rate (test code = 255) MI interval (test code = 266) QRSD interval [...] Sosa MD ([id number]) on 07/15/2021 8:04:56 PM [address]2022-06-08 01:04:59 Test Item Value Reference Range Interpretation Comments Ventricular rate (test code = 253) Atrial rate (test code = 255) MI interval (test code = 266) QRSD interval [...] Sosa MD ([id number]) on 07/15/2021 8:04:56 PM [place] [address] [id number] 01:04:59 Test Item Value Reference Range Interpretation Comments Ventricular rate (test code = 253) Atrial rate (test code = 255) MI interval (test code = 266) QRSD interval (test code = 260) QT interval (test code = 264) QTC interval (test code = 265) P axis 1 (test code = 267) QRS axis 1 (test code = 268) T wave axis (test code = 270) EKG impression (test Normal sinus code = 273) rhythm-Normal ECG-No previous ECGs available-Electronica lly Signed By Andrey Sosa MD ([id number]) on 07/15/2021 8:04:56 PM [facility], [id number] 14:02:59 Test Item Value Reference Range Interpretation Comments LACTIC ACID, 26.7 MG/DL 4.5-19.8 H UNLESS OTHERWI SE PLASMA (test code INDICATED, ALL TESTING = 2056) PERFORMED [facility] NICMN PATHOLOGY [employer] [address] [place], [place] [id number] [place] [address] DIRECTOR: TITA PARIKH M.D. CLIA NUMBER [id number] CAP ACCREDITATION N O. [id number] LACTIC ACID, [id number] 00:00:00 Test Item Value Reference Range Interpretation Comments LACTIC ACID, PLASMA (test code = 26.7 MG/DL 2056) LACTIC ACID, [id number] 00:00:00 Test Item Value Reference Range Interpretation Comments LACTIC ACID, PLASMA (test code = 26.7 MG/DL 2056) LACTIC ACID, [id number] 00:00:00 Test Item Value Reference Range Interpretation Comments LACTIC ACID, PLASMA (test code = 26.7 MG/DL 2056) LACTIC ACID, [id number] 00:00:00 Test Item Value Reference Range Interpretation Comments LACTIC ACID, PLASMA (test code = 26.7 MG/DL 2056) LACTIC ACID, [id number] 00:00:00 Test Item Value Reference Range Interpretation Comments LACTIC ACID, PLASMA (test code = 26.7 MG/DL 2056) LACTIC ACID, [id number] 00:00:00 Test Item Value Reference Range Interpretation Comments LACTIC ACID, PLASMA (test code = 26.7 MG/DL 2056) LACTIC ACID, [id number] 00:00:00 Test Item Value Reference Range Interpretation Comments LACTIC ACID, PLASMA (test code = 26.7 MG/DL 2056) LACTIC ACID, [id number] 00:00:00 Test Item Value Reference Range Interpretation Comments LACTIC ACID, PLASMA (test code = 26.7 MG/DL 2056) LACTIC ACID, [id number] 10:45:50 Test Item Value Reference Range Interpretation Comments LACTIC ACID, 27.1 MG/DL 4.5-19.8 H UNLESS OTHERWI SE PLASMA (test code INDICATED, ALL TESTING = 2056) PERFORMED [facility] [employer] [address] [place], [place] [address] [place] [address] DIRECTOR: TITA PARIKH M.D. IA NUMBER [id number] CAP ACCREDITATION N O. [id number] HEMOGLOBIN [id number] 05:02:08 Test Item Value Reference Range Interpretation Comments HEMOGLOBIN A1c (test 8.3 % 4.2-5.6 H [employer]IC AN DIABETES code = 10858) ASSOCIATION IDELINES FOR HGB A1C: PREDIABETES/INC REASED RISK . . . . . . . 5.7 -6.4% DIAGNOSIS OF DI ABETES . . . . . . . . . >=6 .5% WITH CONFIRMATION OR APPROPRIATE SYMPTOMS NOTE: ASSAY MAY BE AFFECTED BY HEMOGLOBINOPATH IES (SICKLE CELL ANEMIA, S- C DISEASE, OTHERS) OR BAKARI FICIALLY LOWERED BY DEC REASED RED CELL SURVIVAL ( HEMOLYTIC ANEMIAS, BLOOD LOSS, ETC.). CONSIDER ALTERN ATE TESTING OR LABORATORY C ONSULTATION. COMPREHENSIVE METABOLIC [id number] 03:45:06 Test Item Value Reference Range Interpretation Comments GLUCOSE (test code = 397 MG/DL 70-99 H 2216) BUN (test code = 21 MG/DL 8-23 2207) CREATININE (test 0.75 MG/DL 0.60-1.30 code = 2214) eGFR (2020 CKD-EPI) 88 ML/MIN/1.73 >60 (test code = 53010) CALC BUN/CREAT (test 28 RATIO 6-28 code = 2235) SODIUM (test code = 140 MEQ/L 442-277 5127) POTASSIUM (test code 4.2 MEQ/L 3.5-5.4 = [...] PHOSPHATASE 73 U/L 40-140 (test code = 2204) AST (test code = 19 U/L 9-40 2217) ALT (test code = 25 U/L 5-40 2218) LIPID [id number] 03:45:06 Test Item Value Reference Range Interpretation [...] MOREINFORMATION , SEE CLIENT ANNOUNCE MENT AT [email or web address] RISK RATIO LDL/HDL 0.93 RATIO <3.22 (test code = 2238) HEMOGLOBIN [id number] 00:00:00 Test Item Value Reference Range Interpretation Comments HEMOGLOBIN A1c (test code = 74013) 8.3 % HEMOGLOBIN [id number] 00:00:00 Test Item Value Reference Range Interpretation Comments HEMOGLOBIN A1c (test code = 82924) 8.3 % LACTIC ACID, PLASMA [ADDED]2021-07-09 00:00:00 Test Item Value Reference Range Interpretation Comments LACTIC ACID, PLASMA (test code = 27.1 MG/DL 2056) LACTIC ACID, PLASMA [ADDED]2021-07-09 00:00:00 Test Item Value Reference Range Interpretation Comments LACTIC ACID, PLASMA (test code = 27.1 MG/DL 2056) COMPREHENSIVE METABOLIC [id number] 00:00:00 Test Item Value Reference Range Interpretation Comments GLUCOSE (test code = 2217) 397 MG/DL BUN (test code = 2208) 21 MG/DL CREATININE (test code = 2214) 0.75 MG/DL eGFR (2020 CKD-EPI) (test code 88 ML/MIN/1.73 = 22047) CALC BUN/CREAT (test code = 28 RATIO 2235) SODIUM (test code = 2231) 140 MEQ/L POTASSIUM (test code = 2228) 4.2 MEQ/L CHLORIDE (test code = 2215) 95 MEQ/L CARBON DIOXIDE (test code = 32 MEQ/L 2205) CALCIUM (test code = 2209) 10.0 MG/DL PROTEIN, TOTAL (test code = 6.7 G/DL 2228) ALBUMIN (test code = 2201) 4.4 G/DL CALC GLOBULIN (test code = 2.3 G/DL 2239) CALC A/G RATIO (test code = 1.9 RATIO 2233) BILIRUBIN, TOTAL (test code = 0.3 MG/DL 2206) ALKALINE PHOSPHATASE (test 73 U/L code = 2204) AST (test code = 2218) 19 U/L ALT (test code = 2219) 25 U/L COMPREHENSIVE METABOLIC [id number] 00:00:00 Test Item Value Reference Range Interpretation Comments GLUCOSE (test code = 2217) 397 MG/DL BUN (test code = 2208) 21 MG/DL CREATININE (test code = 2214) 0.75 MG/DL eGFR (2020 CKD-EPI) (test code 88 ML/MIN/1.73 = 48868) CALC BUN/CREAT (test code = 28 RATIO 2235) SODIUM (test code = 2231) 140 MEQ/L POTASSIUM (test code = 2228) 4.2 MEQ/L CHLORIDE (test code = 2215) 95 MEQ/L CARBON DIOXIDE (test code = 32 MEQ/L 220) CALCIUM (test code = 2209) 10.0 MG/DL PROTEIN, TOTAL (test code = 6.7 G/DL 222) ALBUMIN (test code = 2201) 4.4 G/DL CALC GLOBULIN (test code = 2.3 G/DL 2240) CALC A/G RATIO (test code = 1.9 RATIO 2234) BILIRUBIN, TOTAL (test code = 0.3 MG/DL 2206) ALKALINE PHOSPHATASE (test 73 U/L code = 2204) AST (test code = 2218) 19 U/L ALT (test code = 2219) 25 U/L LIPID [id number] 00:00:00 Test Item Value Reference Range Interpretation Comments CHOLESTEROL (test code = 2210) 134 MG/DL TRIGLYCERIDES (test code = 2232) 81 MG/DL HDL CHOLESTEROL (test code = 2220) 61 MG/DL CALC LDL CHOL (test code = 2237) 57 MG/DL RISK RATIO LDL/HDL (test code = 0.93 RATIO 2238) LIPID [id number] 00:00:00 Test Item Value Reference Range Interpretation Comments CHOLESTEROL (test code = 2210) 134 MG/DL TRIGLYCERIDES (test code = 2232) 81 MG/DL HDL CHOLESTEROL (test code = 2220) 61 MG/DL CALC LDL CHOL (test code = 2237) 57 MG/DL RISK RATIO LDL/HDL (test code = 0.93 RATIO 2238) HEMOGLOBIN [id number] 00:00:00 Test Item Value Reference Range Interpretation Comments HEMOGLOBIN A1c (test code = 28186) 8.3 % HEMOGLOBIN [id number] 00:00:00 Test Item Value Reference Range Interpretation Comments HEMOGLOBIN A1c (test code = 25777) 8.3 % HEMOGLOBIN [id number] 00:00:00 Test Item Value Reference Range Interpretation Comments HEMOGLOBIN A1c (test code = 34499) 8.3 % LACTIC ACID, PLASMA [ADDED]2021-07-09 00:00:00 Test Item Value Reference Range Interpretation Comments LACTIC ACID, PLASMA (test code = 27.1 MG/DL 2056) LACTIC ACID, PLASMA [ADDED]2021-07-09 00:00:00 Test Item Value Reference Range Interpretation Comments LACTIC ACID, PLASMA (test code = 27.1 MG/DL 2056) COMPREHENSIVE METABOLIC [id number] 00:00:00 Test Item Value Reference Range Interpretation Comments GLUCOSE (test code = 2217) 397 MG/DL BUN (test code = 2208) 21 MG/DL CREATININE (test code = 2214) 0.75 MG/DL eGFR (2020 CKD-EPI) (test code 88 ML/MIN/1.73 = 93671) CALC BUN/CREAT (test code = 28 RATIO 2235) SODIUM (test code = 2231) 140 MEQ/L POTASSIUM (test code = 2228) 4.2 MEQ/L CHLORIDE (test code = 2215) 95 MEQ/L CARBON DIOXIDE (test code = 32 MEQ/L 2206) CALCIUM (test code = 2209) 10.0 MG/DL PROTEIN, TOTAL (test code = 6.7 G/DL 2229) ALBUMIN (test code = 2201) 4.4 G/DL CALC GLOBULIN (test code = 2.3 G/DL 2240) CALC A/G RATIO (test code = 1.9 RATIO 2234) BILIRUBIN, TOTAL (test code = 0.3 MG/DL 2206) ALKALINE PHOSPHATASE (test 73 U/L code = 2204) AST (test code = 2218) 19 U/L ALT (test code = 2219) 25 U/L COMPREHENSIVE METABOLIC [id number] 00:00:00 Test Item Value Reference Range Interpretation Comments GLUCOSE (test code = 2217) 397 MG/DL BUN (test code = 2208) 21 MG/DL CREATININE (test code = 2214) 0.75 MG/DL eGFR (2020 CKD-EPI) (test code 88 ML/MIN/1.73 = 98231) CALC BUN/CREAT (test code = 28 RATIO 2235) SODIUM (test code = 2231) 140 MEQ/L POTASSIUM (test code = 2228) 4.2 MEQ/L CHLORIDE (test code = 2215) 95 MEQ/L CARBON DIOXIDE (test code = 32 MEQ/L 2206) CALCIUM (test code = 2209) 10.0 MG/DL PROTEIN, TOTAL (test code = 6.7 G/DL 2229) ALBUMIN (test code = 2201) 4.4 G/DL CALC GLOBULIN (test code = 2.3 G/DL 2240) CALC A/G RATIO (test code = 1.9 RATIO 2234) BILIRUBIN, TOTAL (test code = 0.3 MG/DL 7) ALKALINE PHOSPHATASE (test 73 U/L code = 2204) AST (test code = 2218) 19 U/L ALT (test code = 2219) 25 U/L LIPID [id number] 00:00:00 Test Item Value Reference Range Interpretation Comments CHOLESTEROL (test code = 2210) 134 MG/DL TRIGLYCERIDES (test code = 2232) 81 MG/DL HDL CHOLESTEROL (test code = 2220) 61 MG/DL CALC LDL CHOL (test code = 2237) 57 MG/DL RISK RATIO LDL/HDL (test code = 0.93 RATIO 2238) LIPID [id number] 00:00:00 Test Item Value Reference Range Interpretation Comments CHOLESTEROL (test code = 2210) 134 MG/DL TRIGLYCERIDES (test code = 2232) 81 MG/DL HDL CHOLESTEROL (test code = 2220) 61 MG/DL CALC LDL CHOL (test code = 2237) 57 MG/DL RISK RATIO LDL/HDL (test code = 0.93 RATIO 2238) HEMOGLOBIN [id number] 00:00:00 Test Item Value Reference Range Interpretation Comments HEMOGLOBIN A1c (test code = 29543) 8.3 % HEMOGLOBIN [id number] 00:00:00 Test Item Value Reference Range Interpretation Comments HEMOGLOBIN A1c (test code = 17017) 8.3 % HEMOGLOBIN [id number] 00:00:00 Test Item Value Reference Range Interpretation Comments HEMOGLOBIN A1c (test code = 88900) 8.3 % LACTIC ACID, PLASMA [ADDED]2021-07-09 00:00:00 Test Item Value Reference Range Interpretation Comments LACTIC ACID, PLASMA (test code = 27.1 MG/DL 2056) LACTIC ACID, PLASMA [ADDED]2021-07-09 00:00:00 Test Item Value Reference Range Interpretation Comments LACTIC ACID, PLASMA (test code = 27.1 MG/DL 2056) COMPREHENSIVE METABOLIC [id number] 00:00:00 Test Item Value Reference Range Interpretation Comments GLUCOSE (test code = 2217) 397 MG/DL BUN (test code = 2208) 21 MG/DL CREATININE (test code = 2214) 0.75 MG/DL eGFR (2020 CKD-EPI) (test code 88 ML/MIN/1.73 = 73138) CALC BUN/CREAT (test code = 28 RATIO 2235) SODIUM (test code = 2231) 140 MEQ/L POTASSIUM (test code = 2228) 4.2 MEQ/L CHLORIDE (test code = 2215) 95 MEQ/L CARBON DIOXIDE (test code = 32 MEQ/L 2205) CALCIUM (test code = 2209) 10.0 MG/DL PROTEIN, TOTAL (test code = 6.7 G/DL 2229) ALBUMIN (test code = 2201) 4.4 G/DL CALC GLOBULIN (test code = 2.3 G/DL 2240) CALC A/G RATIO (test code = 1.9 RATIO 2234) BILIRUBIN, TOTAL (test code = 0.3 MG/DL 2207) ALKALINE PHOSPHATASE (test 73 U/L code = 2204) AST (test code = 2218) 19 U/L ALT (test code = 2219) 25 U/L COMPREHENSIVE METABOLIC [id number] 00:00:00 Test Item Value Reference Range Interpretation Comments GLUCOSE (test code = 2217) 397 MG/DL BUN (test code = 2208) 21 MG/DL CREATININE (test code = 2214) 0.75 MG/DL eGFR (2020 CKD-EPI) (test code 88 ML/MIN/1.73 = 60594) CALC BUN/CREAT (test code = 28 RATIO 2235) SODIUM (test code = 2231) 140 MEQ/L POTASSIUM (test code = 2228) 4.2 MEQ/L CHLORIDE (test code = 2215) 95 MEQ/L CARBON DIOXIDE (test code = 32 MEQ/L 2206) CALCIUM (test code = 2209) 10.0 MG/DL PROTEIN, TOTAL (test code = 6.7 G/DL 2228) ALBUMIN (test code = 2201) 4.4 G/DL CALC GLOBULIN (test code = 2.3 G/DL 2240) CALC A/G RATIO (test code = 1.9 RATIO 2234) BILIRUBIN, TOTAL (test code = 0.3 MG/DL 7) ALKALINE PHOSPHATASE (test 73 U/L code = 2204) AST (test code = 2218) 19 U/L ALT (test code = 2219) 25 U/L LIPID [id number] 00:00:00 Test Item Value Reference Range Interpretation Comments CHOLESTEROL (test code = 2210) 134 MG/DL TRIGLYCERIDES (test code = 2232) 81 MG/DL HDL CHOLESTEROL (test code = 2220) 61 MG/DL CALC LDL CHOL (test code = 2237) 57 MG/DL RISK RATIO LDL/HDL (test code = 0.93 RATIO 2238) LIPID [id number] 00:00:00 Test Item Value Reference Range Interpretation Comments CHOLESTEROL (test code = 2210) 134 MG/DL TRIGLYCERIDES (test code = 2232) 81 MG/DL HDL CHOLESTEROL (test code = 2220) 61 MG/DL CALC LDL CHOL (test code = 2237) 57 MG/DL RISK RATIO LDL/HDL (test code = 0.93 RATIO 2237) HEMOGLOBIN [id number] 00:00:00 Test Item Value Reference Range Interpretation Comments HEMOGLOBIN A1c (test code = 50096) 8.3 % HEMOGLOBIN [id number] 00:00:00 Test Item Value Reference Range Interpretation Comments HEMOGLOBIN A1c (test code = 83525) 8.3 % HEMOGLOBIN [id number] 00:00:00 Test Item Value Reference Range Interpretation Comments HEMOGLOBIN A1c (test code = 23196) 8.3 % LACTIC ACID, PLASMA [ADDED]2021-07-09 00:00:00 Test Item Value Reference Range Interpretation Comments LACTIC ACID, PLASMA (test code = 27.1 MG/DL 2056) LACTIC ACID, PLASMA [ADDED]2021-07-09 00:00:00 Test Item Value Reference Range Interpretation Comments LACTIC ACID, PLASMA (test code = 27.1 MG/DL 2056) COMPREHENSIVE METABOLIC [id number] 00:00:00 Test Item Value Reference Range Interpretation Comments GLUCOSE (test code = 2217) 397 MG/DL BUN (test code = 2208) 21 MG/DL CREATININE (test code = 2214) 0.75 MG/DL eGFR (2020 CKD-EPI) (test code 88 ML/MIN/1.73 = 31582) CALC BUN/CREAT (test code = 28 RATIO 2234) SODIUM (test code = 223) 140 MEQ/L POTASSIUM (test code = 2228) 4.2 MEQ/L CHLORIDE (test code = 2215) 95 MEQ/L CARBON DIOXIDE (test code = 32 MEQ/L 2205) CALCIUM (test code = 2209) 10.0 MG/DL PROTEIN, TOTAL (test code = 6.7 G/DL 2228) ALBUMIN (test code = 2200) 4.4 G/DL CALC GLOBULIN (test code = 2.3 G/DL 2239) CALC A/G RATIO (test code = 1.9 RATIO 2233) BILIRUBIN, TOTAL (test code = 0.3 MG/DL 2206) ALKALINE PHOSPHATASE (test 73 U/L code = 2204) AST (test code = 2218) 19 U/L ALT (test code = 2219) 25 U/L COMPREHENSIVE METABOLIC [id number] 00:00:00 Test Item Value Reference Range Interpretation Comments GLUCOSE (test code = 2217) 397 MG/DL BUN (test code = 2208) 21 MG/DL CREATININE (test code = 2214) 0.75 MG/DL eGFR (2020 CKD-EPI) (test code 88 ML/MIN/1.73 = 58407) CALC BUN/CREAT (test code = 28 RATIO 2235) SODIUM (test code = 2231) 140 MEQ/L POTASSIUM (test code = 2228) 4.2 MEQ/L CHLORIDE (test code = 2215) 95 MEQ/L CARBON DIOXIDE (test code = 32 MEQ/L 2205) CALCIUM (test code = 2209) 10.0 MG/DL PROTEIN, TOTAL (test code = 6.7 G/DL 2228) ALBUMIN (test code = 2201) 4.4 G/DL CALC GLOBULIN (test code = 2.3 G/DL 2239) CALC A/G RATIO (test code = 1.9 RATIO 4) BILIRUBIN, TOTAL (test code = 0.3 MG/DL 2206) ALKALINE PHOSPHATASE (test 73 U/L code = 2204) AST (test code = 2218) 19 U/L ALT (test code = 2219) 25 U/L LIPID [id number] 00:00:00 Test Item Value Reference Range Interpretation Comments CHOLESTEROL (test code = 2210) 134 MG/DL TRIGLYCERIDES (test code = 2232) 81 MG/DL HDL CHOLESTEROL (test code = 2220) 61 MG/DL CALC LDL CHOL (test code = 2237) 57 MG/DL RISK RATIO LDL/HDL (test code = 0.93 RATIO 2238) LIPID [id number] 00:00:00 Test Item Value Reference Range Interpretation Comments CHOLESTEROL (test code = 2210) 134 MG/DL TRIGLYCERIDES (test code = 2232) 81 MG/DL HDL CHOLESTEROL (test code = 2220) 61 MG/DL CALC LDL CHOL (test code = 2237) 57 MG/DL RISK RATIO LDL/HDL (test code = 0.93 RATIO 2238) HEMOGLOBIN [id number] 00:00:00 Test Item Value Reference Range Interpretation Comments HEMOGLOBIN A1c (test code = 88020) 8.3 % LACTIC ACID, [id number] 15:11:52 Test Item Value Reference Range Interpretation Comments LACTIC ACID, 11.7 MG/DL 4.5-19.8 UNLESS OTHERW ISE PLASMA (test code INDICATED, ALL TESTING = 2056) PERFORMED ATCLI NICAL PATHOLOGY LABOR [employer]. [address] [place] [address] [facility] DIRECTOR: TITA PARIKH M.D. CLIA NUMBER [id number] CAP ACCREDITATION N O. [id number] LACTIC ACID, PLASMA [ADDED]2021-05-29 00:00:00 Test Item Value Reference Range Interpretation Comments LACTIC ACID, PLASMA (test code = 11.7 MG/DL 2056) LACTIC ACID, PLASMA [ADDED]2021-05-29 00:00:00 Test Item Value Reference Range Interpretation Comments LACTIC ACID, PLASMA (test code = 11.7 MG/DL 2056) LACTIC ACID, PLASMA [ADDED]2021-05-29 00:00:00 Test Item Value Reference Range Interpretation Comments LACTIC ACID, PLASMA (test code = 11.7 MG/DL 2056) LACTIC ACID, PLASMA [ADDED]2021-05-29 00:00:00 Test Item Value Reference Range Interpretation Comments LACTIC ACID, PLASMA (test code = 11.7 MG/DL 2056) LACTIC ACID, PLASMA [ADDED]2021-05-29 00:00:00 Test Item Value Reference Range Interpretation Comments LACTIC ACID, PLASMA (test code = 11.7 MG/DL 2056) LACTIC ACID, PLASMA [ADDED]2021-05-29 00:00:00 Test Item Value Reference Range Interpretation Comments LACTIC ACID, PLASMA (test code = 11.7 MG/DL 2056) LACTIC ACID, PLASMA [ADDED]2021-05-29 00:00:00 Test Item Value Reference Range Interpretation Comments LACTIC ACID, PLASMA (test code = 11.7 MG/DL 2056) LACTIC ACID, PLASMA [ADDED]2021-05-29 00:00:00 Test Item Value Reference Range Interpretation Comments LACTIC ACID, PLASMA (test code = 11.7 MG/DL 2056) HEMOGLOBIN [id number] 03:44:50 Test Item Value Reference Range Interpretation Comments HEMOGLOBIN A1c (test 7.5 % 4.2-5.6 H [employer] AN DIABETES code = 97244) ASSOCIATION IDELINES FOR HGB A1C: PREDIABETES/INC REASED [...] TESTING OR LABORATORY C ONSULTATION. COMPREHENSIVE METABOLIC [id number] 03:25:55 Test Item Value Reference Range Interpretation Comments GLUCOSE (test code = 159 MG/DL 70-99 H 2216) BUN (test code = 17 MG/DL 8-23 2207) CREATININE (test 0.56 MG/DL 0.60-1.30 L code = 2213) eGFR (2020 CKD-EPI) 101 >60 (test code = 80606) ML/MIN/1.73 CALC BUN/CREAT (test 30 RATIO 6-28 H code = 2235) SODIUM (test code = 141 MEQ/L 150-986 6590) POTASSIUM (test code 4.4 MEQ/L 3.5-5.4 = [...] PHOSPHATASE 60 U/L 40-140 (test code = 220) AST (test code = 20 U/L 9-40 2217) ALT (test code = 21 U/L 40 2218) COMPREHENSIVE METABOLIC PANEL [ADDED]2021-05-28 00:00:00 Test Item Value Reference Range Interpretation Comments GLUCOSE (test code = 2217) 159 MG/DL BUN (test code = 2208) 17 MG/DL CREATININE (test code = 2214) 0.56 MG/DL eGFR (2020 CKD-EPI) (test 101 ML/MIN/1.73 code = 42323) CALC BUN/CREAT (test code = 30 RATIO 2235) SODIUM (test code = 2231) 141 MEQ/L POTASSIUM (test code = 2228) 4.4 MEQ/L CHLORIDE (test code = 2215) 101 MEQ/L CARBON DIOXIDE (test code = 25 MEQ/L 2205) CALCIUM (test code = 2209) 9.7 MG/DL PROTEIN, TOTAL (test code = 6.7 G/DL 2228) ALBUMIN (test code = 2201) 4.6 G/DL CALC GLOBULIN (test code = 2.1 G/DL 224) CALC A/G RATIO (test code = 2.2 RATIO 2234) BILIRUBIN, TOTAL (test code = <0.2 MG/DL 2206) ALKALINE PHOSPHATASE (test 60 U/L code = 2204) AST (test code = 2218) 20 U/L ALT (test code = 2219) 21 U/L COMPREHENSIVE METABOLIC PANEL [ADDED]2021-05-28 00:00:00 Test Item Value Reference Range Interpretation Comments GLUCOSE (test code = 2217) 159 MG/DL BUN (test code = 2208) 17 MG/DL CREATININE (test code = 2214) 0.56 MG/DL eGFR (2020 CKD-EPI) (test 101 ML/MIN/1.73 code = 87796) CALC BUN/CREAT (test code = 30 RATIO 2235) SODIUM (test code = 2231) 141 MEQ/L POTASSIUM (test code = 2228) 4.4 MEQ/L CHLORIDE (test code = 2215) 101 MEQ/L CARBON DIOXIDE (test code = 25 MEQ/L 220) CALCIUM (test code = 2209) 9.7 MG/DL PROTEIN, TOTAL (test code = 6.7 G/DL 2228) ALBUMIN (test code = 2201) 4.6 G/DL CALC GLOBULIN (test code = 2.1 G/DL 2240) CALC A/G RATIO (test code = 2.2 RATIO 2234) BILIRUBIN, TOTAL (test code = <0.2 MG/DL 2206) ALKALINE PHOSPHATASE (test 60 U/L code = 2204) AST (test code = 2218) 20 U/L ALT (test code = 2219) 21 U/L HEMOGLOBIN A1c [ADDED]2021-05-28 00:00:00 Test Item Value Reference Range Interpretation Comments HEMOGLOBIN A1c (test code = 15963) 7.5 % HEMOGLOBIN A1c [ADDED]2021-05-28 00:00:00 Test Item Value Reference Range Interpretation Comments HEMOGLOBIN A1c (test code = 47107) 7.5 % HEMOGLOBIN A1c [ADDED]2021-05-28 00:00:00 Test Item Value Reference Range Interpretation Comments HEMOGLOBIN A1c (test code = 63753) 7.5 % COMPREHENSIVE METABOLIC PANEL [ADDED]2021-05-28 00:00:00 Test Item Value Reference Range Interpretation Comments GLUCOSE (test code = 2217) 159 MG/DL BUN (test code = 2208) 17 MG/DL CREATININE (test code = 2214) 0.56 MG/DL eGFR (2020 CKD-EPI) (test 101 ML/MIN/1.73 code = 46384) CALC BUN/CREAT (test code = 30 RATIO 2235) SODIUM (test code = 2231) 141 MEQ/L POTASSIUM (test code = 2228) 4.4 MEQ/L CHLORIDE (test code = 2215) 101 MEQ/L CARBON DIOXIDE (test code = 25 MEQ/L 2205) CALCIUM (test code = 2209) 9.7 MG/DL PROTEIN, TOTAL (test code = 6.7 G/DL 2228) ALBUMIN (test code = 2201) 4.6 G/DL CALC GLOBULIN (test code = 2.1 G/DL 2240) CALC A/G RATIO (test code = 2.2 RATIO 2234) BILIRUBIN, TOTAL (test code = <0.2 MG/DL 2206) ALKALINE PHOSPHATASE (test 60 U/L code = 2204) AST (test code = 2218) 20 U/L ALT (test code = 2219) 21 U/L COMPREHENSIVE METABOLIC PANEL [ADDED]2021-05-28 00:00:00 Test Item Value Reference Range Interpretation Comments GLUCOSE (test code = 2217) 159 MG/DL BUN (test code = 2208) 17 MG/DL CREATININE (test code = 2214) 0.56 MG/DL eGFR (2020 CKD-EPI) (test 101 ML/MIN/1.73 code = 87274) CALC BUN/CREAT (test code = 30 RATIO 223) SODIUM (test code = 2231) 141 MEQ/L POTASSIUM (test code = 2228) 4.4 MEQ/L CHLORIDE (test code = 2215) 101 MEQ/L CARBON DIOXIDE (test code = 25 MEQ/L 2205) CALCIUM (test code = 2209) 9.7 MG/DL PROTEIN, TOTAL (test code = 6.7 G/DL 2228) ALBUMIN (test code = 220) 4.6 G/DL CALC GLOBULIN (test code = 2.1 G/DL 2239) CALC A/G RATIO (test code = 2.2 RATIO 2233) BILIRUBIN, TOTAL (test code = <0.2 MG/DL 2206) ALKALINE PHOSPHATASE (test 60 U/L code = 220) AST (test code = 2218) 20 U/L ALT (test code = 2219) 21 U/L HEMOGLOBIN A1c [ADDED]2021-05-28 00:00:00 Test Item Value Reference Range Interpretation Comments HEMOGLOBIN A1c (test code = 93445) 7.5 % HEMOGLOBIN A1c [ADDED]2021-05-28 00:00:00 Test Item Value Reference Range Interpretation Comments HEMOGLOBIN A1c (test code = 28911) 7.5 % HEMOGLOBIN A1c [ADDED]2021-05-28 00:00:00 Test Item Value Reference Range Interpretation Comments HEMOGLOBIN A1c (test code = 83095) 7.5 % COMPREHENSIVE METABOLIC PANEL [ADDED]2021-05-28 00:00:00 Test Item Value Reference Range Interpretation Comments GLUCOSE (test code = 2217) 159 MG/DL BUN (test code = 2208) 17 MG/DL CREATININE (test code = 2214) 0.56 MG/DL eGFR (2020 CKD-EPI) (test 101 ML/MIN/1.73 code = 60447) CALC BUN/CREAT (test code = 30 RATIO 2234) SODIUM (test code = 2231) 141 MEQ/L POTASSIUM (test code = 2228) 4.4 MEQ/L CHLORIDE (test code = 2215) 101 MEQ/L CARBON DIOXIDE (test code = 25 MEQ/L 2206) CALCIUM (test code = 2209) 9.7 MG/DL PROTEIN, TOTAL (test code = 6.7 G/DL 222) ALBUMIN (test code = 2201) 4.6 G/DL CALC GLOBULIN (test code = 2.1 G/DL 2240) CALC A/G RATIO (test code = 2.2 RATIO 2234) BILIRUBIN, TOTAL (test code = <0.2 MG/DL 2206) ALKALINE PHOSPHATASE (test 60 U/L code = 2204) AST (test code = 2218) 20 U/L ALT (test code = 2219) 21 U/L COMPREHENSIVE METABOLIC PANEL [ADDED]2021-05-28 00:00:00 Test Item Value Reference Range Interpretation Comments GLUCOSE (test code = 2217) 159 MG/DL BUN (test code = 2208) 17 MG/DL CREATININE (test code = 2214) 0.56 MG/DL eGFR (2020 CKD-EPI) (test 101 ML/MIN/1.73 code = 50000) CALC BUN/CREAT (test code = 30 RATIO 2235) SODIUM (test code = 2231) 141 MEQ/L POTASSIUM (test code = 2228) 4.4 MEQ/L CHLORIDE (test code = 2215) 101 MEQ/L CARBON DIOXIDE (test code = 25 MEQ/L 2205) CALCIUM (test code = 2209) 9.7 MG/DL PROTEIN, TOTAL (test code = 6.7 G/DL 2228) ALBUMIN (test code = 2201) 4.6 G/DL CALC GLOBULIN (test code = 2.1 G/DL 2240) CALC A/G RATIO (test code = 2.2 RATIO 2234) BILIRUBIN, TOTAL (test code = <0.2 MG/DL 2206) ALKALINE PHOSPHATASE (test 60 U/L code = 2204) AST (test code = 2218) 20 U/L ALT (test code = 2219) 21 U/L HEMOGLOBIN A1c [ADDED]2021-05-28 00:00:00 Test Item Value Reference Range Interpretation Comments HEMOGLOBIN A1c (test code = 60205) 7.5 % HEMOGLOBIN A1c [ADDED]2021-05-28 00:00:00 Test Item Value Reference Range Interpretation Comments HEMOGLOBIN A1c (test code = 26913) 7.5 % HEMOGLOBIN A1c [ADDED]2021-05-28 00:00:00 Test Item Value Reference Range Interpretation Comments HEMOGLOBIN A1c (test code = 35282) 7.5 % COMPREHENSIVE METABOLIC PANEL [ADDED]2021-05-28 00:00:00 Test Item Value Reference Range Interpretation Comments GLUCOSE (test code = 2217) 159 MG/DL BUN (test code = 2208) 17 MG/DL CREATININE (test code = 2214) 0.56 MG/DL eGFR (2020 CKD-EPI) (test 101 ML/MIN/1.73 code = 00382) CALC BUN/CREAT (test code = 30 RATIO 2235) SODIUM (test code = 2231) 141 MEQ/L POTASSIUM (test code = 2228) 4.4 MEQ/L CHLORIDE (test code = 2215) 101 MEQ/L CARBON DIOXIDE (test code = 25 MEQ/L 2205) CALCIUM (test code = 2209) 9.7 MG/DL PROTEIN, TOTAL (test code = 6.7 G/DL 2228) ALBUMIN (test code = 2201) 4.6 G/DL CALC GLOBULIN (test code = 2.1 G/DL 2239) CALC A/G RATIO (test code = 2.2 RATIO 223) BILIRUBIN, TOTAL (test code = <0.2 MG/DL 2206) ALKALINE PHOSPHATASE (test 60 U/L code = 2204) AST (test code = 2218) 20 U/L ALT (test code = 2219) 21 U/L COMPREHENSIVE METABOLIC PANEL [ADDED]2021-05-28 00:00:00 Test Item Value Reference Range Interpretation Comments GLUCOSE (test code = 2217) 159 MG/DL BUN (test code = 2208) 17 MG/DL CREATININE (test code = 2214) 0.56 MG/DL eGFR (2020 CKD-EPI) (test 101 ML/MIN/1.73 code = 22883) CALC BUN/CREAT (test code = 30 RATIO 2235) SODIUM (test code = 2231) 141 MEQ/L POTASSIUM (test code = 2228) 4.4 MEQ/L CHLORIDE (test code = 2215) 101 MEQ/L CARBON DIOXIDE (test code = 25 MEQ/L 220) CALCIUM (test code = 2209) 9.7 MG/DL PROTEIN, TOTAL (test code = 6.7 G/DL 2228) ALBUMIN (test code = 2201) 4.6 G/DL CALC GLOBULIN (test code = 2.1 G/DL 2240) CALC A/G RATIO (test code = 2.2 RATIO 2234) BILIRUBIN, TOTAL (test code = <0.2 MG/DL 2206) ALKALINE PHOSPHATASE (test 60 U/L code = 2204) AST (test code = 2218) 20 U/L ALT (test code = 2219) 21 U/L HEMOGLOBIN A1c [ADDED]2021-05-28 00:00:00 Test Item Value Reference Range Interpretation Comments HEMOGLOBIN A1c (test code = 59731) 7.5 % HEMOGLOBIN A1c [ADDED]2021-05-28 00:00:00 Test Item Value Reference Range Interpretation Comments HEMOGLOBIN A1c (test code = 21684) 7.5 % HEMOGLOBIN A1c [ADDED]2021-05-28 00:00:00 Test Item Value Reference Range Interpretation Comments HEMOGLOBIN A1c (test code = 62882) 7.5 % LACTIC ACID, [id number] 15:10:19 Test Item Value Reference Range Interpretation Comments LACTIC ACID, 34.5 MG/DL 4.5-19.8 H UNLESS OTHERWI SE PLASMA (test code INDICATED, ALL TESTING = 2056) PERFORMED [facility] [address] [place] [address] DIRECTOR: TITA PARIKH M.D. CLIA NUMBER [id number] [facility] ACCREDITATION N O. [id number] LACTIC ACID, PLASMA [ADDED]2021-05-16 00:00:00 Test Item Value Reference Range Interpretation Comments LACTIC ACID, PLASMA (test code = 34.5 MG/DL 2056) LACTIC ACID, PLASMA [ADDED]2021-05-16 00:00:00 Test Item Value Reference Range Interpretation Comments LACTIC ACID, PLASMA (test code = 34.5 MG/DL 2056) LACTIC ACID, PLASMA [ADDED]2021-05-16 00:00:00 Test Item Value Reference Range Interpretation Comments LACTIC ACID, PLASMA (test code = 34.5 MG/DL 2056) LACTIC ACID, PLASMA [ADDED]2021-05-16 00:00:00 Test Item Value Reference Range Interpretation Comments LACTIC ACID, PLASMA (test code = 34.5 MG/DL 2056) LACTIC ACID, PLASMA [ADDED]2021-05-16 00:00:00 Test Item Value Reference Range Interpretation Comments LACTIC ACID, PLASMA (test code = 34.5 MG/DL 2056) LACTIC ACID, PLASMA [ADDED]2021-05-16 00:00:00 Test Item Value Reference Range Interpretation Comments LACTIC ACID, PLASMA (test code = 34.5 MG/DL 2056) LACTIC ACID, PLASMA [ADDED]2021-05-16 00:00:00 Test Item Value Reference Range Interpretation Comments LACTIC ACID, PLASMA (test code = 34.5 MG/DL 2056) LACTIC ACID, PLASMA [ADDED]2021-05-16 00:00:00 Test Item Value Reference Range Interpretation Comments LACTIC ACID, PLASMA (test code = 34.5 MG/DL 2056) LACTIC ACID, [id number] 13:30:20 Test Item Value Reference Range Interpretation Comments LACTIC ACID, 18.5 MG/DL 4.5-19.8 UNLESS OTHERWI SE PLASMA (test code INDICATED, ALL TESTING = 2056) PERFORMED [facility] [employer] [address] [place] [id number] [place] [address] DIRECTOR: TITA PARIKH M.D. IA NUMBER [id number] [facility] ACCREDITATION N O. [id number] LACTIC ACID, [id number] 00:00:00 Test Item Value Reference Range Interpretation Comments LACTIC ACID, PLASMA (test code = 18.5 MG/DL 2056) LACTIC ACID, [id number] 00:00:00 Test Item Value Reference Range Interpretation Comments LACTIC ACID, PLASMA (test code = 18.5 MG/DL 2056) LACTIC ACID, [id number] 00:00:00 Test Item Value Reference Range Interpretation Comments LACTIC ACID, PLASMA (test code = 18.5 MG/DL 2056) LACTIC ACID, [id number] 00:00:00 Test Item Value Reference Range Interpretation Comments LACTIC ACID, PLASMA (test code = 18.5 MG/DL 2056) LACTIC ACID, [id number] 00:00:00 Test Item Value Reference Range Interpretation Comments LACTIC ACID, PLASMA (test code = 18.5 MG/DL 2056) LACTIC ACID, [id number] 00:00:00 Test Item Value Reference Range Interpretation Comments LACTIC ACID, PLASMA (test code = 18.5 MG/DL 2056) LACTIC ACID, [id number] 00:00:00 Test Item Value Reference Range Interpretation Comments LACTIC ACID, PLASMA (test code = 18.5 MG/DL 2056) LACTIC ACID, [id number] 00:00:00 Test Item Value Reference Range Interpretation Comments LACTIC ACID, PLASMA (test code = 18.5 MG/DL 2056) TSH, THIRD [id number] 06:41:17 Test Item Value Reference Range Interpretation Comments TSH, THIRD GENERATION (test code 1.300 UIU/ML 0.400-4.100 = 282) LIPID [id number] 04:18:20 Test Item Value Reference Range Interpretation [...] MOREINFORMATION , SEE CLIENT ANNOUNCE MENT AT [email or web address] RISK RATIO LDL/HDL 0.85 RATIO <3.22 (test code = 2238) COMPREHENSIVE METABOLIC [id number] 04:18:20 Test Item Value Reference Range Interpretation Comments GLUCOSE (test code = 93 MG/DL 70-99 2216) BUN (test code = 15 MG/DL 8-23 2207) CREATININE (test 0.72 MG/DL 0.60-1.30 code = 2214) eGFR (2020 CKD-EPI) 93 ML/MIN/1.73 >60 (test code = 14378) CALC BUN/CREAT (test 21 RATIO 6-28 code = 2235) SODIUM (test code = 143 MEQ/L 058-147 5869) POTASSIUM (test code 3.8 MEQ/L 3.5-5.4 = [...] code = 36 U/L 5-40 2218) HEMOGLOBIN [id number] 03:31:34 Test Item Value Reference Range Interpretation Comments HEMOGLOBIN A1c (test 7.8 % 4.2-5.6 H AMERI CAN DIABETES code = 93137) ASSOCIATION IDELINES FOR HGB A1C: PREDIABETES/INC REASED [...] TESTING OR LABORATORY C ONSULTATION. COMPREHENSIVE METABOLIC [id number] 00:00:00 Test Item Value Reference Range Interpretation Comments GLUCOSE (test code = 2217) 93 MG/DL BUN (test code = 2208) 15 MG/DL CREATININE (test code = 2214) 0.72 MG/DL eGFR (2020 CKD-EPI) (test code 93 ML/MIN/1.73 = 69120) CALC BUN/CREAT (test code = 21 RATIO 2235) SODIUM (test code = 2231) 143 MEQ/L POTASSIUM (test code = 2228) 3.8 MEQ/L CHLORIDE (test code = 2215) 98 MEQ/L CARBON DIOXIDE (test code = 29 MEQ/L 2206) CALCIUM (test code = 2209) 9.8 MG/DL PROTEIN, TOTAL (test code = 6.6 G/DL 2228) ALBUMIN (test code = 2201) 4.2 G/DL CALC GLOBULIN (test code = 2.4 G/DL 2240) CALC A/G RATIO (test code = 1.8 RATIO 2234) BILIRUBIN, TOTAL (test code = 0.3 MG/DL 2206) ALKALINE PHOSPHATASE (test 61 U/L code = 2204) AST (test code = 2218) 20 U/L ALT (test code = 2219) 36 U/L [id number] 00:00:00 Test Item Value Reference Range Interpretation Comments TSH, THIRD GENERATION (test code 1.300 UIU/ML = 2821) [id number] 00:00:00 Test Item Value Reference Range Interpretation Comments TSH, THIRD GENERATION (test code 1.300 UIU/ML = 2821) [id number] 00:00:00 Test Item Value Reference Range Interpretation Comments TSH, THIRD GENERATION (test code 1.300 UIU/ML = 2821) LIPID [id number] 00:00:00 Test Item Value Reference Range Interpretation Comments CHOLESTEROL (test code = 2210) 125 MG/DL TRIGLYCERIDES (test code = 2232) 167 MG/DL HDL CHOLESTEROL (test code = 2220) 54 MG/DL CALC LDL CHOL (test code = 2237) 46 MG/DL RISK RATIO LDL/HDL (test code = 0.85 RATIO 2238) LIPID [id number] 00:00:00 Test Item Value Reference Range Interpretation Comments CHOLESTEROL (test code = 2210) 125 MG/DL TRIGLYCERIDES (test code = 2232) 167 MG/DL HDL CHOLESTEROL (test code = 2220) 54 MG/DL CALC LDL CHOL (test code = 2237) 46 MG/DL RISK RATIO LDL/HDL (test code = 0.85 RATIO 2238) HEMOGLOBIN [id number] 00:00:00 Test Item Value Reference Range Interpretation Comments HEMOGLOBIN A1c (test code = 97036) 7.8 % HEMOGLOBIN [id number] 00:00:00 Test Item Value Reference Range Interpretation Comments HEMOGLOBIN A1c (test code = 55430) 7.8 % HEMOGLOBIN [id number] 00:00:00 Test Item Value Reference Range Interpretation Comments HEMOGLOBIN A1c (test code = 52554) 7.8 % COMPREHENSIVE METABOLIC [id number] 00:00:00 Test Item Value Reference Range Interpretation Comments GLUCOSE (test code = 2217) 93 MG/DL BUN (test code = 2208) 15 MG/DL CREATININE (test code = 2214) 0.72 MG/DL eGFR (2020 CKD-EPI) (test code 93 ML/MIN/1.73 = 43495) CALC BUN/CREAT (test code = 21 RATIO 2235) SODIUM (test code = 2231) 143 MEQ/L POTASSIUM (test code = 2228) 3.8 MEQ/L CHLORIDE (test code = 2215) 98 MEQ/L CARBON DIOXIDE (test code = 29 MEQ/L 220) CALCIUM (test code = 2209) 9.8 MG/DL PROTEIN, TOTAL (test code = 6.6 G/DL 2228) ALBUMIN (test code = 2201) 4.2 G/DL CALC GLOBULIN (test code = 2.4 G/DL 2240) CALC A/G RATIO (test code = 1.8 RATIO 223) BILIRUBIN, TOTAL (test code = 0.3 MG/DL 2206) ALKALINE PHOSPHATASE (test 61 U/L code = 2204) AST (test code = 2218) 20 U/L ALT (test code = 2219) 36 U/L COMPREHENSIVE METABOLIC [id number] 00:00:00 Test Item Value Reference Range Interpretation Comments GLUCOSE (test code = 2217) 93 MG/DL BUN (test code = 2208) 15 MG/DL CREATININE (test code = 2214) 0.72 MG/DL eGFR (2020 CKD-EPI) (test code 93 ML/MIN/1.73 = 90044) CALC BUN/CREAT (test code = 21 RATIO 2235) SODIUM (test code = 2231) 143 MEQ/L POTASSIUM (test code = 2228) 3.8 MEQ/L CHLORIDE (test code = 2215) 98 MEQ/L CARBON DIOXIDE (test code = 29 MEQ/L 2206) CALCIUM (test code = 2209) 9.8 MG/DL PROTEIN, TOTAL (test code = 6.6 G/DL 2228) ALBUMIN (test code = 2201) 4.2 G/DL CALC GLOBULIN (test code = 2.4 G/DL 2240) CALC A/G RATIO (test code = 1.8 RATIO 2234) BILIRUBIN, TOTAL (test code = 0.3 MG/DL 2206) ALKALINE PHOSPHATASE (test 61 U/L code = 2204) AST (test code = 2218) 20 U/L ALT (test code = 2219) 36 U/L [id number] 00:00:00 Test Item Value Reference Range Interpretation Comments TSH, THIRD GENERATION (test code 1.300 UIU/ML = 2821) [id number] 00:00:00 Test Item Value Reference Range Interpretation Comments TSH, THIRD GENERATION (test code 1.300 UIU/ML = 2821) [id number] 00:00:00 Test Item Value Reference Range Interpretation Comments TSH, THIRD GENERATION (test code 1.300 UIU/ML = 2821) LIPID [id number] 00:00:00 Test Item Value Reference Range Interpretation Comments CHOLESTEROL (test code = 2210) 125 MG/DL TRIGLYCERIDES (test code = 2232) 167 MG/DL HDL CHOLESTEROL (test code = 2220) 54 MG/DL CALC LDL CHOL (test code = 2237) 46 MG/DL RISK RATIO LDL/HDL (test code = 0.85 RATIO 2238) LIPID [id number] 00:00:00 Test Item Value Reference Range Interpretation Comments CHOLESTEROL (test code = 2210) 125 MG/DL TRIGLYCERIDES (test code = 2232) 167 MG/DL HDL CHOLESTEROL (test code = 2220) 54 MG/DL CALC LDL CHOL (test code = 2237) 46 MG/DL RISK RATIO LDL/HDL (test code = 0.85 RATIO 2238) HEMOGLOBIN [id number] 00:00:00 Test Item Value Reference Range Interpretation Comments HEMOGLOBIN A1c (test code = 57661) 7.8 % HEMOGLOBIN [id number] 00:00:00 Test Item Value Reference Range Interpretation Comments HEMOGLOBIN A1c (test code = 10399) 7.8 % HEMOGLOBIN [id number] 00:00:00 Test Item Value Reference Range Interpretation Comments HEMOGLOBIN A1c (test code = 26584) 7.8 % COMPREHENSIVE METABOLIC [id number] 00:00:00 Test Item Value Reference Range Interpretation Comments GLUCOSE (test code = 2217) 93 MG/DL BUN (test code = 2208) 15 MG/DL CREATININE (test code = 2214) 0.72 MG/DL eGFR (2020 CKD-EPI) (test code 93 ML/MIN/1.73 = 44408) CALC BUN/CREAT (test code = 21 RATIO 2235) SODIUM (test code = 2231) 143 MEQ/L POTASSIUM (test code = 2228) 3.8 MEQ/L CHLORIDE (test code = 2215) 98 MEQ/L CARBON DIOXIDE (test code = 29 MEQ/L 2206) CALCIUM (test code = 2209) 9.8 MG/DL PROTEIN, TOTAL (test code = 6.6 G/DL 222) ALBUMIN (test code = 2201) 4.2 G/DL CALC GLOBULIN (test code = 2.4 G/DL 2240) CALC A/G RATIO (test code = 1.8 RATIO 2234) BILIRUBIN, TOTAL (test code = 0.3 MG/DL 2206) ALKALINE PHOSPHATASE (test 61 U/L code = 2204) AST (test code = 2218) 20 U/L ALT (test code = 2219) 36 U/L COMPREHENSIVE METABOLIC [id number] 00:00:00 Test Item Value Reference Range Interpretation Comments GLUCOSE (test code = 2217) 93 MG/DL BUN (test code = 2208) 15 MG/DL CREATININE (test code = 2214) 0.72 MG/DL eGFR (2020 CKD-EPI) (test code 93 ML/MIN/1.73 = 30599) CALC BUN/CREAT (test code = 21 RATIO 2235) SODIUM (test code = 2231) 143 MEQ/L POTASSIUM (test code = 2228) 3.8 MEQ/L CHLORIDE (test code = 2215) 98 MEQ/L CARBON DIOXIDE (test code = 29 MEQ/L 2206) CALCIUM (test code = 2209) 9.8 MG/DL PROTEIN, TOTAL (test code = 6.6 G/DL 2229) ALBUMIN (test code = 2201) 4.2 G/DL CALC GLOBULIN (test code = 2.4 G/DL 2240) CALC A/G RATIO (test code = 1.8 RATIO 2234) BILIRUBIN, TOTAL (test code = 0.3 MG/DL 2206) ALKALINE PHOSPHATASE (test 61 U/L code = 2204) AST (test code = 2218) 20 U/L ALT (test code = 2219) 36 U/L [id number] 00:00:00 Test Item Value Reference Range Interpretation Comments TSH, THIRD GENERATION (test code 1.300 UIU/ML = 2821) [id number] 00:00:00 Test Item Value Reference Range Interpretation Comments TSH, THIRD GENERATION (test code 1.300 UIU/ML = 2821) [id number] 00:00:00 Test Item Value Reference Range Interpretation Comments TSH, THIRD GENERATION (test code 1.300 UIU/ML = 2821) LIPID [id number] 00:00:00 Test Item Value Reference Range Interpretation Comments CHOLESTEROL (test code = 2210) 125 MG/DL TRIGLYCERIDES (test code = 2232) 167 MG/DL HDL CHOLESTEROL (test code = 2220) 54 MG/DL CALC LDL CHOL (test code = 2237) 46 MG/DL RISK RATIO LDL/HDL (test code = 0.85 RATIO 2238) LIPID [id number] 00:00:00 Test Item Value Reference Range Interpretation Comments CHOLESTEROL (test code = 2210) 125 MG/DL TRIGLYCERIDES (test code = 2232) 167 MG/DL HDL CHOLESTEROL (test code = 2220) 54 MG/DL CALC LDL CHOL (test code = 2237) 46 MG/DL RISK RATIO LDL/HDL (test code = 0.85 RATIO 2238) HEMOGLOBIN [id number] 00:00:00 Test Item Value Reference Range Interpretation Comments HEMOGLOBIN A1c (test code = 11194) 7.8 % HEMOGLOBIN [id number] 00:00:00 Test Item Value Reference Range Interpretation Comments HEMOGLOBIN A1c (test code = 42376) 7.8 % HEMOGLOBIN [id number] 00:00:00 Test Item Value Reference Range Interpretation Comments HEMOGLOBIN A1c (test code = 84804) 7.8 % COMPREHENSIVE METABOLIC [id number] 00:00:00 Test Item Value Reference Range Interpretation Comments GLUCOSE (test code = 2217) 93 MG/DL BUN (test code = 2208) 15 MG/DL CREATININE (test code = 2214) 0.72 MG/DL eGFR (2020 CKD-EPI) (test code 93 ML/MIN/1.73 = 55036) CALC BUN/CREAT (test code = 21 RATIO 2235) SODIUM (test code = 2231) 143 MEQ/L POTASSIUM (test code = 2228) 3.8 MEQ/L CHLORIDE (test code = 2215) 98 MEQ/L CARBON DIOXIDE (test code = 29 MEQ/L 2206) CALCIUM (test code = 2209) 9.8 MG/DL PROTEIN, TOTAL (test code = 6.6 G/DL 222) ALBUMIN (test code = 2201) 4.2 G/DL CALC GLOBULIN (test code = 2.4 G/DL 2240) CALC A/G RATIO (test code = 1.8 RATIO 2234) BILIRUBIN, TOTAL (test code = 0.3 MG/DL 2206) ALKALINE PHOSPHATASE (test 61 U/L code = 2204) AST (test code = 2218) 20 U/L ALT (test code = 2219) 36 U/L COMPREHENSIVE METABOLIC [id number] 00:00:00 Test Item Value Reference Range Interpretation Comments GLUCOSE (test code = 2217) 93 MG/DL BUN (test code = 2208) 15 MG/DL CREATININE (test code = 2214) 0.72 MG/DL eGFR (2020 CKD-EPI) (test code 93 ML/MIN/1.73 = 18827) CALC BUN/CREAT (test code = 21 RATIO 2235) SODIUM (test code = 2231) 143 MEQ/L POTASSIUM (test code = 2228) 3.8 MEQ/L CHLORIDE (test code = 2215) 98 MEQ/L CARBON DIOXIDE (test code = 29 MEQ/L 2205) CALCIUM (test code = 2209) 9.8 MG/DL PROTEIN, TOTAL (test code = 6.6 G/DL 2228) ALBUMIN (test code = 2201) 4.2 G/DL CALC GLOBULIN (test code = 2.4 G/DL 2240) CALC A/G RATIO (test code = 1.8 RATIO 2234) BILIRUBIN, TOTAL (test code = 0.3 MG/DL 2206) ALKALINE PHOSPHATASE (test 61 U/L code = 2204) AST (test code = 2218) 20 U/L ALT (test code = 2219) 36 U/L [id number] 00:00:00 Test Item Value Reference Range Interpretation Comments TSH, THIRD GENERATION (test code 1.300 UIU/ML = 2821) [id number] 00:00:00 Test Item Value Reference Range Interpretation Comments TSH, THIRD GENERATION (test code 1.300 UIU/ML = 2821) [id number] 00:00:00 Test Item Value Reference Range Interpretation Comments TSH, THIRD GENERATION (test code 1.300 UIU/ML = 2821) LIPID [id number] 00:00:00 Test Item Value Reference Range Interpretation Comments CHOLESTEROL (test code = 2210) 125 MG/DL TRIGLYCERIDES (test code = 2232) 167 MG/DL HDL CHOLESTEROL (test code = 2220) 54 MG/DL CALC LDL CHOL (test code = 2237) 46 MG/DL RISK RATIO LDL/HDL (test code = 0.85 RATIO 2238) LIPID [id number] 00:00:00 Test Item Value Reference Range Interpretation Comments CHOLESTEROL (test code = 2210) 125 MG/DL TRIGLYCERIDES (test code = 2232) 167 MG/DL HDL CHOLESTEROL (test code = 2220) 54 MG/DL CALC LDL CHOL (test code = 2237) 46 MG/DL RISK RATIO LDL/HDL (test code = 0.85 RATIO 2238) HEMOGLOBIN [id number] 00:00:00 Test Item Value Reference Range Interpretation Comments HEMOGLOBIN A1c (test code = 48077) 7.8 % HEMOGLOBIN [id number] 00:00:00 Test Item Value Reference Range Interpretation Comments HEMOGLOBIN A1c (test code = 71998) 7.8 % HEMOGLOBIN [id number] 00:00:00 Test Item Value Reference Range Interpretation Comments HEMOGLOBIN A1c (test code = 32934) 7.8 % COMPREHENSIVE METABOLIC [id number] 00:00:00 Test Item Value Reference Range Interpretation Comments GLUCOSE (test code = 2217) 93 MG/DL BUN (test code = 2208) 15 MG/DL CREATININE (test code = 2214) 0.72 MG/DL eGFR (2020 CKD-EPI) (test code 93 ML/MIN/1.73 = 48353) CALC BUN/CREAT (test code = 21 RATIO 2235) SODIUM (test code = 2231) 143 MEQ/L POTASSIUM (test code = 2228) 3.8 MEQ/L CHLORIDE (test code = 2215) 98 MEQ/L CARBON DIOXIDE (test code = 29 MEQ/L 2205) CALCIUM (test code = 2209) 9.8 MG/DL PROTEIN, TOTAL (test code = 6.6 G/DL 2228) ALBUMIN (test code = 2201) 4.2 G/DL CALC GLOBULIN (test code = 2.4 G/DL 2240) CALC A/G RATIO (test code = 1.8 RATIO 2234) BILIRUBIN, TOTAL (test code = 0.3 MG/DL 2206) ALKALINE PHOSPHATASE (test 61 U/L code = 2204) AST (test code = 2218) 20 U/L ALT (test code = 2219) 36 U/L MICROALBUMIN/CREATININE, RANDOM AND [id number] 00:00:00 Test Item Value Reference Range Interpretation Comments CREATININE, URINE, CONC. (test 128.0 MG/DL code = 2072) ALBUMIN, URINE, RANDOM (test code 2.2 MG/DL = 28423) CALC ALBUMIN/CREAT, RND (test 17 MG/G code = 73272) MICROALBUMIN/CREATININE, RANDOM AND [id number] 00:00:00 Test Item Value Reference Range Interpretation Comments CREATININE, URINE, CONC. (test 128.0 MG/DL code = 2072) ALBUMIN, URINE, RANDOM (test code 2.2 MG/DL = 57462) CALC ALBUMIN/CREAT, RND (test 17 MG/G code = 83808) HEMOGLOBIN [id number] 00:00:00 Test Item Value Reference Range Interpretation Comments HEMOGLOBIN A1c (test code = 25564) 10.9 % HEMOGLOBIN [id number] 00:00:00 Test Item Value Reference Range Interpretation Comments HEMOGLOBIN A1c (test code = 67591) 10.9 % HEMOGLOBIN [id number] 00:00:00 Test Item Value Reference Range Interpretation Comments HEMOGLOBIN A1c (test code = 87757) 10.9 % MICROALBUMIN/CREATININE, RANDOM AND [id number] 00:00:00 Test Item Value Reference Range Interpretation Comments CREATININE, URINE, CONC. (test 128.0 MG/DL code = 2072) ALBUMIN, URINE, RANDOM (test code 2.2 MG/DL = 73604) CALC ALBUMIN/CREAT, RND (test 17 MG/G code = 27279) MICROALBUMIN/CREATININE, RANDOM AND [id number] 00:00:00 Test Item Value Reference Range Interpretation Comments CREATININE, URINE, CONC. (test 128.0 MG/DL code = 2072) ALBUMIN, URINE, RANDOM (test code 2.2 MG/DL = 52458) CALC ALBUMIN/CREAT, RND (test 17 MG/G code = 85281) HEMOGLOBIN [id number] 00:00:00 Test Item Value Reference Range Interpretation Comments HEMOGLOBIN A1c (test code = 35442) 10.9 % HEMOGLOBIN [id number] 00:00:00 Test Item Value Reference Range Interpretation Comments HEMOGLOBIN A1c (test code = 85009) 10.9 % HEMOGLOBIN [id number] 00:00:00 Test Item Value Reference Range Interpretation Comments HEMOGLOBIN A1c (test code = 83307) 10.9 % MICROALBUMIN/CREATININE, RANDOM AND [id number] 00:00:00 Test Item Value Reference Range Interpretation Comments CREATININE, URINE, CONC. (test 128.0 MG/DL code = 2072) ALBUMIN, URINE, RANDOM (test code 2.2 MG/DL = 46444) CALC ALBUMIN/CREAT, RND (test 17 MG/G code = 35886) MICROALBUMIN/CREATININE, RANDOM AND [id number] 00:00:00 Test Item Value Reference Range Interpretation Comments CREATININE, URINE, CONC. (test 128.0 MG/DL code = 2072) ALBUMIN, URINE, RANDOM (test code 2.2 MG/DL = 40906) CALC ALBUMIN/CREAT, RND (test 17 MG/G code = 96248) HEMOGLOBIN [id number] 00:00:00 Test Item Value Reference Range Interpretation Comments HEMOGLOBIN A1c (test code = 48945) 10.9 % HEMOGLOBIN [id number] 00:00:00 Test Item Value Reference Range Interpretation Comments HEMOGLOBIN A1c (test code = 56974) 10.9 % HEMOGLOBIN [id number] 00:00:00 Test Item Value Reference Range Interpretation Comments HEMOGLOBIN A1c (test code = 14789) 10.9 % MICROALBUMIN/CREATININE, RANDOM AND [id number] 00:00:00 Test Item Value Reference Range Interpretation Comments CREATININE, URINE, CONC. (test 128.0 MG/DL code = 2072) ALBUMIN, URINE, RANDOM (test code 2.2 MG/DL = 83627) CALC ALBUMIN/CREAT, RND (test 17 MG/G code = 94199) MICROALBUMIN/CREATININE, RANDOM AND [id number] 00:00:00 Test Item Value Reference Range Interpretation Comments CREATININE, URINE, CONC. (test 128.0 MG/DL code = 2072) ALBUMIN, URINE, RANDOM (test code 2.2 MG/DL = 35895) CALC ALBUMIN/CREAT, RND (test 17 MG/G code = 33640) HEMOGLOBIN [id number] 00:00:00 Test Item Value Reference Range Interpretation Comments HEMOGLOBIN A1c (test code = 13762) 10.9 % HEMOGLOBIN [id number] 00:00:00 Test Item Value Reference Range Interpretation Comments HEMOGLOBIN A1c (test code = 61370) 10.9 % HEMOGLOBIN [id number] 00:00:00 Test Item Value Reference Range Interpretation Comments HEMOGLOBIN A1c (test code = 71473) 10.9 % HEMOGLOBIN [id number] 00:00:00 Test Item Value Reference Range Interpretation Comments HEMOGLOBIN A1c (test code = 19432) 10.9 % HEMOGLOBIN [id number] 00:00:00 Test Item Value Reference Range Interpretation Comments HEMOGLOBIN A1c (test code = 37329) 10.9 % HEMOGLOBIN [id number] 00:00:00 Test Item Value Reference Range Interpretation Comments HEMOGLOBIN A1c (test code = 37702) 10.9 % HEMOGLOBIN [id number] 00:00:00 Test Item Value Reference Range Interpretation Comments HEMOGLOBIN A1c (test code = 40897) 10.9 % HEMOGLOBIN [id number] 00:00:00 Test Item Value Reference Range Interpretation Comments HEMOGLOBIN A1c (test code = 24667) 10.9 % HEMOGLOBIN [id number] 00:00:00 Test Item Value Reference Range Interpretation Comments HEMOGLOBIN A1c (test code = 58940) 10.9 % HEMOGLOBIN [id number] 00:00:00 Test Item Value Reference Range Interpretation Comments HEMOGLOBIN A1c (test code = 28083) 10.9 % HEMOGLOBIN [id number] 00:00:00 Test Item Value Reference Range Interpretation Comments HEMOGLOBIN A1c (test code = 20516) 10.9 % HEMOGLOBIN [id number] 00:00:00 Test Item Value Reference Range Interpretation Comments HEMOGLOBIN A1c (test code = 69383) 10.9 % HEMOGLOBIN [id number] 00:00:00 Test Item Value Reference Range Interpretation Comments HEMOGLOBIN A1c (test code = 29006) 10.9 % HEMOGLOBIN [id number] 00:00:00 Test Item Value Reference Range Interpretation Comments HEMOGLOBIN A1c (test code = 16604) 10.9 % HEMOGLOBIN [id number] 00:00:00 Test Item Value Reference Range Interpretation Comments HEMOGLOBIN A1c (test code = 01199) 10.9 % LIPID [id number] 00:00:00 Test Item Value Reference Range Interpretation Comments CHOLESTEROL (test code = 2210) 131 MG/DL TRIGLYCERIDES (test code = 2232) 190 MG/DL HDL CHOLESTEROL (test code = 2220) 42 MG/DL CALC LDL CHOL (test code = 2237) 63 MG/DL RISK RATIO LDL/HDL (test code = 1.50 RATIO 2238) LIPID [id number] 00:00:00 Test Item Value Reference Range Interpretation Comments CHOLESTEROL (test code = 2210) 131 MG/DL TRIGLYCERIDES (test code = 2232) 190 MG/DL HDL CHOLESTEROL (test code = 2220) 42 MG/DL CALC LDL CHOL (test code = 2237) 63 MG/DL RISK RATIO LDL/HDL (test code = 1.50 RATIO 2238) COMPREHENSIVE METABOLIC [id number] 00:00:00 Test Item Value Reference Range Interpretation Comments GLUCOSE (test code = 2217) 105 MG/DL BUN (test code = 2208) 17 MG/DL CREATININE (test code = 2214) 0.68 MG/DL eGFR AMER. (test code 107 ML/MIN/1.73 = 95482) eGFR NON- AMER. (test 92 ML/MIN/1.73 code = 68891) CALC BUN/CREAT (test code = 25 RATIO 2235) SODIUM (test code = 2231) 140 MEQ/L POTASSIUM (test code = 2228) 4.5 MEQ/L CHLORIDE (test code = 2215) 103 MEQ/L CARBON DIOXIDE (test code = 28 MEQ/L 2205) CALCIUM (test code = 2209) 9.3 MG/DL PROTEIN, TOTAL (test code = 6.6 G/DL 2228) ALBUMIN (test code = 2201) 4.6 G/DL CALC GLOBULIN (test code = 2.0 G/DL 2239) CALC A/G RATIO (test code = 2.3 RATIO 2234) BILIRUBIN, TOTAL (test code = 0.3 MG/DL 2206) ALKALINE PHOSPHATASE (test 62 U/L code = 2204) AST (test code = 2218) 23 U/L ALT (test code = 2219) 20 U/L COMPREHENSIVE METABOLIC [id number] 00:00:00 Test Item Value Reference Range Interpretation Comments GLUCOSE (test code = 2217) 105 MG/DL BUN (test code = 2208) 17 MG/DL CREATININE (test code = 2214) 0.68 MG/DL eGFR AMER. (test code 107 ML/MIN/1.73 = 44315) eGFR NON- AMER. (test 92 ML/MIN/1.73 code = 98053) CALC BUN/CREAT (test code = 25 RATIO 2235) SODIUM (test code = 2231) 140 MEQ/L POTASSIUM (test code = 2228) 4.5 MEQ/L CHLORIDE (test code = 2215) 103 MEQ/L CARBON DIOXIDE (test code = 28 MEQ/L 220) CALCIUM (test code = 2209) 9.3 MG/DL PROTEIN, TOTAL (test code = 6.6 G/DL 222) ALBUMIN (test code = 2201) 4.6 G/DL CALC GLOBULIN (test code = 2.0 G/DL 2240) CALC A/G RATIO (test code = 2.3 RATIO 2234) BILIRUBIN, TOTAL (test code = 0.3 MG/DL 220) ALKALINE PHOSPHATASE (test 62 U/L code = 2204) AST (test code = 2218) 23 U/L ALT (test code = 2219) 20 U/L [id number] 00:00:00 Test Item Value Reference Range Interpretation Comments TSH, THIRD GENERATION (test code 2.260 UIU/ML = 2821) [id number] 00:00:00 Test Item Value Reference Range Interpretation Comments TSH, THIRD GENERATION (test code 2.260 UIU/ML = 2821) [id number] 00:00:00 Test Item Value Reference Range Interpretation Comments TSH, THIRD GENERATION (test code 2.260 UIU/ML = 2821) CBC W/AUTO [id number] 00:00:00 Test Item Value Reference Range Interpretation Comments WBC (test code = 1001) 6.3 K/UL RBC (test code = 1002) 4.68 M/UL HEMOGLOBIN (test code = 1003) 14.8 G/DL HEMATOCRIT (test code = 1004) 43.1 % MCV (test code = 1005) 92.1 fL MCH (test code = 1006) 31.6 PG MCHC (test code = 1007) 34.3 G/DL RDW (test code = 1038) 12.5 % NEUTROPHILS (test code = 1008) 59.6 % LYMPHOCYTES (test code = 1010) 27.9 % MONOCYTES (test code = 1011) 7.0 % EOSINOPHILS (test code = 1012) 4.9 % BASOPHILS (test code = 1013) 0.6 % PLATELET COUNT (test code = 1015) 218 K/UL CBC W/AUTO [id number] 00:00:00 Test Item Value Reference Range Interpretation Comments WBC (test code = 1001) 6.3 K/UL RBC (test code = 1002) 4.68 M/UL HEMOGLOBIN (test code = 1003) 14.8 G/DL HEMATOCRIT (test code = 1004) 43.1 % MCV (test code = 1005) 92.1 fL MCH (test code = 1006) 31.6 PG MCHC (test code = 1007) 34.3 G/DL RDW (test code = 1038) 12.5 % NEUTROPHILS (test code = 1008) 59.6 % LYMPHOCYTES (test code = 1010) 27.9 % MONOCYTES (test code = 1011) 7.0 % EOSINOPHILS (test code = 1012) 4.9 % BASOPHILS (test code = 1013) 0.6 % PLATELET COUNT (test code = 1015) 218 K/UL CBC W/AUTO [id number] 00:00:00 Test Item Value Reference Range Interpretation Comments WBC (test code = 1001) 6.3 K/UL RBC (test code = 1002) 4.68 M/UL HEMOGLOBIN (test code = 1003) 14.8 G/DL HEMATOCRIT (test code = 1004) 43.1 % MCV (test code = 1005) 92.1 fL MCH (test code = 1006) 31.6 PG MCHC (test code = 1007) 34.3 G/DL RDW (test code = 1038) 12.5 % NEUTROPHILS (test code = 1008) 59.6 % LYMPHOCYTES (test code = 1010) 27.9 % MONOCYTES (test code = 1011) 7.0 % EOSINOPHILS (test code = 1012) 4.9 % BASOPHILS (test code = 1013) 0.6 % PLATELET COUNT (test code = 1015) 218 K/UL HEMOGLOBIN [id number] 00:00:00 Test Item Value Reference Range Interpretation Comments HEMOGLOBIN A1c (test code = 06775) 5.9 % HEMOGLOBIN [id number] 00:00:00 Test Item Value Reference Range Interpretation Comments HEMOGLOBIN A1c (test code = 46805) 5.9 % HEMOGLOBIN [id number] 00:00:00 Test Item Value Reference Range Interpretation Comments HEMOGLOBIN A1c (test code = 33472) 5.9 % LIPID [id number] 00:00:00 Test Item Value Reference Range Interpretation Comments CHOLESTEROL (test code = 2210) 131 MG/DL TRIGLYCERIDES (test code = 2232) 190 MG/DL HDL CHOLESTEROL (test code = 2220) 42 MG/DL CALC LDL CHOL (test code = 2237) 63 MG/DL RISK RATIO LDL/HDL (test code = 1.50 RATIO 2238) LIPID [id number] 00:00:00 Test Item Value Reference Range Interpretation Comments CHOLESTEROL (test code = 2210) 131 MG/DL TRIGLYCERIDES (test code = 2232) 190 MG/DL HDL CHOLESTEROL (test code = 2220) 42 MG/DL CALC LDL CHOL (test code = 2237) 63 MG/DL RISK RATIO LDL/HDL (test code = 1.50 RATIO 2238) COMPREHENSIVE METABOLIC [id number] 00:00:00 Test Item Value Reference Range Interpretation Comments GLUCOSE (test code = 2217) 105 MG/DL BUN (test code = 2208) 17 MG/DL CREATININE (test code = 2214) 0.68 MG/DL eGFR AMER. (test code 107 ML/MIN/1.73 = 38031) eGFR NON- AMER. (test 92 ML/MIN/1.73 code = 48793) CALC BUN/CREAT (test code = 25 RATIO 2235) SODIUM (test code = 2231) 140 MEQ/L POTASSIUM (test code = 2228) 4.5 MEQ/L CHLORIDE (test code = 2215) 103 MEQ/L CARBON DIOXIDE (test code = 28 MEQ/L 2205) CALCIUM (test code = 2209) 9.3 MG/DL PROTEIN, TOTAL (test code = 6.6 G/DL 2228) ALBUMIN (test code = 2201) 4.6 G/DL CALC GLOBULIN (test code = 2.0 G/DL 2240) CALC A/G RATIO (test code = 2.3 RATIO 2234) BILIRUBIN, TOTAL (test code = 0.3 MG/DL 2206) ALKALINE PHOSPHATASE (test 62 U/L code = 2204) AST (test code = 2218) 23 U/L ALT (test code = 2219) 20 U/L COMPREHENSIVE METABOLIC [id number] 00:00:00 Test Item Value Reference Range Interpretation Comments GLUCOSE (test code = 2217) 105 MG/DL BUN (test code = 2208) 17 MG/DL CREATININE (test code = 2214) 0.68 MG/DL eGFR AMER. (test code 107 ML/MIN/1.73 = 64500) eGFR NON- AMER. (test 92 ML/MIN/1.73 code = 78521) CALC BUN/CREAT (test code = 25 RATIO 2235) SODIUM (test code = 2231) 140 MEQ/L POTASSIUM (test code = 2228) 4.5 MEQ/L CHLORIDE (test code = 2215) 103 MEQ/L CARBON DIOXIDE (test code = 28 MEQ/L 2206) CALCIUM (test code = 2209) 9.3 MG/DL PROTEIN, TOTAL (test code = 6.6 G/DL 2228) ALBUMIN (test code = 2201) 4.6 G/DL CALC GLOBULIN (test code = 2.0 G/DL 2240) CALC A/G RATIO (test code = 2.3 RATIO 2234) BILIRUBIN, TOTAL (test code = 0.3 MG/DL 2206) ALKALINE PHOSPHATASE (test 62 U/L code = 2204) AST (test code = 2218) 23 U/L ALT (test code = 2219) 20 U/L [id number] 00:00:00 Test Item Value Reference Range Interpretation Comments TSH, THIRD GENERATION (test code 2.260 UIU/ML = 2821) [id number] 00:00:00 Test Item Value Reference Range Interpretation Comments TSH, THIRD GENERATION (test code 2.260 UIU/ML = 2821) [id number] 00:00:00 Test Item Value Reference Range Interpretation Comments TSH, THIRD GENERATION (test code 2.260 UIU/ML = 2821) CBC W/AUTO [id number] 00:00:00 Test Item Value Reference Range Interpretation Comments WBC (test code = 1001) 6.3 K/UL RBC (test code = 1002) 4.68 M/UL HEMOGLOBIN (test code = 1003) 14.8 G/DL HEMATOCRIT (test code = 1004) 43.1 % MCV (test code = 1005) 92.1 fL MCH (test code = 1006) 31.6 PG MCHC (test code = 1007) 34.3 G/DL RDW (test code = 1038) 12.5 % NEUTROPHILS (test code = 1008) 59.6 % LYMPHOCYTES (test code = 1010) 27.9 % MONOCYTES (test code = 1011) 7.0 % EOSINOPHILS (test code = 1012) 4.9 % BASOPHILS (test code = 1013) 0.6 % PLATELET COUNT (test code = 1015) 218 K/UL CBC W/AUTO [id number] 00:00:00 Test Item Value Reference Range Interpretation Comments WBC (test code = 1001) 6.3 K/UL RBC (test code = 1002) 4.68 M/UL HEMOGLOBIN (test code = 1003) 14.8 G/DL HEMATOCRIT (test code = 1004) 43.1 % MCV (test code = 1005) 92.1 fL MCH (test code = 1006) 31.6 PG MCHC (test code = 1007) 34.3 G/DL RDW (test code = 1038) 12.5 % NEUTROPHILS (test code = 1008) 59.6 % LYMPHOCYTES (test code = 1010) 27.9 % MONOCYTES (test code = 1011) 7.0 % EOSINOPHILS (test code = 1012) 4.9 % BASOPHILS (test code = 1013) 0.6 % PLATELET COUNT (test code = 1015) 218 K/UL CBC W/AUTO [id number] 00:00:00 Test Item Value Reference Range Interpretation Comments WBC (test code = 1001) 6.3 K/UL RBC (test code = 1002) 4.68 M/UL HEMOGLOBIN (test code = 1003) 14.8 G/DL HEMATOCRIT (test code = 1004) 43.1 % MCV (test code = 1005) 92.1 fL MCH (test code = 1006) 31.6 PG MCHC (test code = 1007) 34.3 G/DL RDW (test code = 1038) 12.5 % NEUTROPHILS (test code = 1008) 59.6 % LYMPHOCYTES (test code = 1010) 27.9 % MONOCYTES (test code = 1011) 7.0 % EOSINOPHILS (test code = 1012) 4.9 % BASOPHILS (test code = 1013) 0.6 % PLATELET COUNT (test code = 1015) 218 K/UL HEMOGLOBIN [id number] 00:00:00 Test Item Value Reference Range Interpretation Comments HEMOGLOBIN A1c (test code = 06403) 5.9 % HEMOGLOBIN [id number] 00:00:00 Test Item Value Reference Range Interpretation Comments HEMOGLOBIN A1c (test code = 75160) 5.9 % HEMOGLOBIN [id number] 00:00:00 Test Item Value Reference Range Interpretation Comments HEMOGLOBIN A1c (test code = 20847) 5.9 % LIPID [id number] 00:00:00 Test Item Value Reference Range Interpretation Comments CHOLESTEROL (test code = 2210) 131 MG/DL TRIGLYCERIDES (test code = 2232) 190 MG/DL HDL CHOLESTEROL (test code = 2220) 42 MG/DL CALC LDL CHOL (test code = 2237) 63 MG/DL RISK RATIO LDL/HDL (test code = 1.50 RATIO 2238) LIPID [id number] 00:00:00 Test Item Value Reference Range Interpretation Comments CHOLESTEROL (test code = 2210) 131 MG/DL TRIGLYCERIDES (test code = 2232) 190 MG/DL HDL CHOLESTEROL (test code = 2220) 42 MG/DL CALC LDL CHOL (test code = 2237) 63 MG/DL RISK RATIO LDL/HDL (test code = 1.50 RATIO 2238) COMPREHENSIVE METABOLIC [id number] 00:00:00 Test Item Value Reference Range Interpretation Comments GLUCOSE (test code = 2217) 105 MG/DL BUN (test code = 2208) 17 MG/DL CREATININE (test code = 2214) 0.68 MG/DL eGFR AMER. (test code 107 ML/MIN/1.73 = 82591) eGFR NON- AMER. (test 92 ML/MIN/1.73 code = 24557) CALC BUN/CREAT (test code = 25 RATIO 2235) SODIUM (test code = 2231) 140 MEQ/L POTASSIUM (test code = 2228) 4.5 MEQ/L CHLORIDE (test code = 2215) 103 MEQ/L CARBON DIOXIDE (test code = 28 MEQ/L 2206) CALCIUM (test code = 2209) 9.3 MG/DL PROTEIN, TOTAL (test code = 6.6 G/DL 222) ALBUMIN (test code = 2201) 4.6 G/DL CALC GLOBULIN (test code = 2.0 G/DL 2240) CALC A/G RATIO (test code = 2.3 RATIO 2234) BILIRUBIN, TOTAL (test code = 0.3 MG/DL 2206) ALKALINE PHOSPHATASE (test 62 U/L code = 2204) AST (test code = 2218) 23 U/L ALT (test code = 2219) 20 U/L COMPREHENSIVE METABOLIC [id number] 00:00:00 Test Item Value Reference Range Interpretation Comments GLUCOSE (test code = 2217) 105 MG/DL BUN (test code = 2208) 17 MG/DL CREATININE (test code = 2214) 0.68 MG/DL eGFR AMER. (test code 107 ML/MIN/1.73 = 36510) eGFR NON- AMER. (test 92 ML/MIN/1.73 code = 96016) CALC BUN/CREAT (test code = 25 RATIO 2235) SODIUM (test code = 2231) 140 MEQ/L POTASSIUM (test code = 2228) 4.5 MEQ/L CHLORIDE (test code = 2215) 103 MEQ/L CARBON DIOXIDE (test code = 28 MEQ/L 2206) CALCIUM (test code = 2209) 9.3 MG/DL PROTEIN, TOTAL (test code = 6.6 G/DL 2228) ALBUMIN (test code = 2201) 4.6 G/DL CALC GLOBULIN (test code = 2.0 G/DL 2240) CALC A/G RATIO (test code = 2.3 RATIO 2234) BILIRUBIN, TOTAL (test code = 0.3 MG/DL 7) ALKALINE PHOSPHATASE (test 62 U/L code = 2204) AST (test code = 2218) 23 U/L ALT (test code = 2219) 20 U/L [id number] 00:00:00 Test Item Value Reference Range Interpretation Comments TSH, THIRD GENERATION (test code 2.260 UIU/ML = 2821) [id number] 00:00:00 Test Item Value Reference Range Interpretation Comments TSH, THIRD GENERATION (test code 2.260 UIU/ML = 2821) [id number] 00:00:00 Test Item Value Reference Range Interpretation Comments TSH, THIRD GENERATION (test code 2.260 UIU/ML = 2821) CBC W/AUTO [id number] 00:00:00 Test Item Value Reference Range Interpretation Comments WBC (test code = 1001) 6.3 K/UL RBC (test code = 1002) 4.68 M/UL HEMOGLOBIN (test code = 1003) 14.8 G/DL HEMATOCRIT (test code = 1004) 43.1 % MCV (test code = 1005) 92.1 fL MCH (test code = 1006) 31.6 PG MCHC (test code = 1007) 34.3 G/DL RDW (test code = 1038) 12.5 % NEUTROPHILS (test code = 1008) 59.6 % LYMPHOCYTES (test code = 1010) 27.9 % MONOCYTES (test code = 1011) 7.0 % EOSINOPHILS (test code = 1012) 4.9 % BASOPHILS (test code = 1013) 0.6 % PLATELET COUNT (test code = 1015) 218 K/UL CBC W/AUTO [id number] 00:00:00 Test Item Value Reference Range Interpretation Comments WBC (test code = 1001) 6.3 K/UL RBC (test code = 1002) 4.68 M/UL HEMOGLOBIN (test code = 1003) 14.8 G/DL HEMATOCRIT (test code = 1004) 43.1 % MCV (test code = 1005) 92.1 fL MCH (test code = 1006) 31.6 PG MCHC (test code = 1007) 34.3 G/DL RDW (test code = 1038) 12.5 % NEUTROPHILS (test code = 1008) 59.6 % LYMPHOCYTES (test code = 1010) 27.9 % MONOCYTES (test code = 1011) 7.0 % EOSINOPHILS (test code = 1012) 4.9 % BASOPHILS (test code = 1013) 0.6 % PLATELET COUNT (test code = 1015) 218 K/UL CBC W/AUTO [id number] 00:00:00 Test Item Value Reference Range Interpretation Comments WBC (test code = 1001) 6.3 K/UL RBC (test code = 1002) 4.68 M/UL HEMOGLOBIN (test code = 1003) 14.8 G/DL HEMATOCRIT (test code = 1004) 43.1 % MCV (test code = 1005) 92.1 fL MCH (test code = 1006) 31.6 PG MCHC (test code = 1007) 34.3 G/DL RDW (test code = 1038) 12.5 % NEUTROPHILS (test code = 1008) 59.6 % LYMPHOCYTES (test code = 1010) 27.9 % MONOCYTES (test code = 1011) 7.0 % EOSINOPHILS (test code = 1012) 4.9 % BASOPHILS (test code = 1013) 0.6 % PLATELET COUNT (test code = 1015) 218 K/UL HEMOGLOBIN [id number] 00:00:00 Test Item Value Reference Range Interpretation Comments HEMOGLOBIN A1c (test code = 40497) 5.9 % HEMOGLOBIN [id number] 00:00:00 Test Item Value Reference Range Interpretation Comments HEMOGLOBIN A1c (test code = 45903) 5.9 % HEMOGLOBIN [id number] 00:00:00 Test Item Value Reference Range Interpretation Comments HEMOGLOBIN A1c (test code = 98896) 5.9 % LIPID [id number] 00:00:00 Test Item Value Reference Range Interpretation Comments CHOLESTEROL (test code = 2210) 131 MG/DL TRIGLYCERIDES (test code = 2232) 190 MG/DL HDL CHOLESTEROL (test code = 2220) 42 MG/DL CALC LDL CHOL (test code = 2237) 63 MG/DL RISK RATIO LDL/HDL (test code = 1.50 RATIO 2238) LIPID [id number] 00:00:00 Test Item Value Reference Range Interpretation Comments CHOLESTEROL (test code = 2210) 131 MG/DL TRIGLYCERIDES (test code = 2232) 190 MG/DL HDL CHOLESTEROL (test code = 2220) 42 MG/DL CALC LDL CHOL (test code = 2237) 63 MG/DL RISK RATIO LDL/HDL (test code = 1.50 RATIO 2238) COMPREHENSIVE METABOLIC [id number] 00:00:00 Test Item Value Reference Range Interpretation Comments GLUCOSE (test code = 2217) 105 MG/DL BUN (test code = 2208) 17 MG/DL CREATININE (test code = 2214) 0.68 MG/DL eGFR AMER. (test code 107 ML/MIN/1.73 = 77208) eGFR NON- AMER. (test 92 ML/MIN/1.73 code = 37217) CALC BUN/CREAT (test code = 25 RATIO 2235) SODIUM (test code = 2231) 140 MEQ/L POTASSIUM (test code = 2228) 4.5 MEQ/L CHLORIDE (test code = 2215) 103 MEQ/L CARBON DIOXIDE (test code = 28 MEQ/L 2206) CALCIUM (test code = 2209) 9.3 MG/DL PROTEIN, TOTAL (test code = 6.6 G/DL 2228) ALBUMIN (test code = 2201) 4.6 G/DL CALC GLOBULIN (test code = 2.0 G/DL 2240) CALC A/G RATIO (test code = 2.3 RATIO 2234) BILIRUBIN, TOTAL (test code = 0.3 MG/DL 2206) ALKALINE PHOSPHATASE (test 62 U/L code = 2204) AST (test code = 2218) 23 U/L ALT (test code = 2219) 20 U/L COMPREHENSIVE METABOLIC [id number] 00:00:00 Test Item Value Reference Range Interpretation Comments GLUCOSE (test code = 2217) 105 MG/DL BUN (test code = 2208) 17 MG/DL CREATININE (test code = 2214) 0.68 MG/DL eGFR AMER. (test code 107 ML/MIN/1.73 = 58505) eGFR NON- AMER. (test 92 ML/MIN/1.73 code = 76280) CALC BUN/CREAT (test code = 25 RATIO 2235) SODIUM (test code = 2231) 140 MEQ/L POTASSIUM (test code = 2228) 4.5 MEQ/L CHLORIDE (test code = 2215) 103 MEQ/L CARBON DIOXIDE (test code = 28 MEQ/L 2206) CALCIUM (test code = 2209) 9.3 MG/DL PROTEIN, TOTAL (test code = 6.6 G/DL 2228) ALBUMIN (test code = 2201) 4.6 G/DL CALC GLOBULIN (test code = 2.0 G/DL 2240) CALC A/G RATIO (test code = 2.3 RATIO 2234) BILIRUBIN, TOTAL (test code = 0.3 MG/DL 2206) ALKALINE PHOSPHATASE (test 62 U/L code = 2204) AST (test code = 2218) 23 U/L ALT (test code = 2219) 20 U/L [id number] 00:00:00 Test Item Value Reference Range Interpretation Comments TSH, THIRD GENERATION (test code 2.260 UIU/ML = 2821) [id number] 00:00:00 Test Item Value Reference Range Interpretation Comments TSH, THIRD GENERATION (test code 2.260 UIU/ML = 2821) [id number] 00:00:00 Test Item Value Reference Range Interpretation Comments TSH, THIRD GENERATION (test code 2.260 UIU/ML = 2821) CBC W/AUTO [id number] 00:00:00 Test Item Value Reference Range Interpretation Comments WBC (test code = 1001) 6.3 K/UL RBC (test code = 1002) 4.68 M/UL HEMOGLOBIN (test code = 1003) 14.8 G/DL HEMATOCRIT (test code = 1004) 43.1 % MCV (test code = 1005) 92.1 fL MCH (test code = 1006) 31.6 PG MCHC (test code = 1007) 34.3 G/DL RDW (test code = 1038) 12.5 % NEUTROPHILS (test code = 1008) 59.6 % LYMPHOCYTES (test code = 1010) 27.9 % MONOCYTES (test code = 1011) 7.0 % EOSINOPHILS (test code = 1012) 4.9 % BASOPHILS (test code = 1013) 0.6 % PLATELET COUNT (test code = 1015) 218 K/UL CBC W/AUTO [id number] 00:00:00 Test Item Value Reference Range Interpretation Comments WBC (test code = 1001) 6.3 K/UL RBC (test code = 1002) 4.68 M/UL HEMOGLOBIN (test code = 1003) 14.8 G/DL HEMATOCRIT (test code = 1004) 43.1 % MCV (test code = 1005) 92.1 fL MCH (test code = 1006) 31.6 PG MCHC (test code = 1007) 34.3 G/DL RDW (test code = 1038) 12.5 % NEUTROPHILS (test code = 1008) 59.6 % LYMPHOCYTES (test code = 1010) 27.9 % MONOCYTES (test code = 1011) 7.0 % EOSINOPHILS (test code = 1012) 4.9 % BASOPHILS (test code = 1013) 0.6 % PLATELET COUNT (test code = 1015) 218 K/UL CBC W/AUTO [id number] 00:00:00 Test Item Value Reference Range Interpretation Comments WBC (test code = 1001) 6.3 K/UL RBC (test code = 1002) 4.68 M/UL HEMOGLOBIN (test code = 1003) 14.8 G/DL HEMATOCRIT (test code = 1004) 43.1 % MCV (test code = 1005) 92.1 fL MCH (test code = 1006) 31.6 PG MCHC (test code = 1007) 34.3 G/DL RDW (test code = 1038) 12.5 % NEUTROPHILS (test code = 1008) 59.6 % LYMPHOCYTES (test code = 1010) 27.9 % MONOCYTES (test code = 1011) 7.0 % EOSINOPHILS (test code = 1012) 4.9 % BASOPHILS (test code = 1013) 0.6 % PLATELET COUNT (test code = 1015) 218 K/UL HEMOGLOBIN [id number] 00:00:00 Test Item Value Reference Range Interpretation Comments HEMOGLOBIN A1c (test code = 13304) 5.9 % HEMOGLOBIN [id number] 00:00:00 Test Item Value Reference Range Interpretation Comments HEMOGLOBIN A1c (test code = 85525) 5.9 % HEMOGLOBIN [id number] 00:00:00 Test Item Value Reference Range Interpretation Comments HEMOGLOBIN A1c (test code = 20489) 5.9 % POCT GLUCOSE (AUTOMATED)2019-12-30 15:33:00 Test Item Value Reference Range Interpretation Comments POCT GLU (test code = 204 mg/dL 70-110 H Notifi ed Provider [id number]) Lab Interpretation (test Abnormal code = 84368-9) [facility] (NA, K, CL, CO2, GLUCOSE, BUN, CREATININE, CA)2019-12-30 10:50:00 Test Item Value Reference Range Interpretation Comments NA (test code = 137 mmol/L 135-145 3212476738) K (test code = 4.1 mmol/L 3.5-5 9061704716) CL (test code = 103 mmol/L 98-108 5368982246) CO2 TOTAL (test code = 29 mmol/L 23-31 2665688540) AGAP (test code = 2-16 1425733700) BUN (test code = 21 mg/dL 7-23 7898908492) GLUCOSE (test code = 97 mg/dL 70-110 8080266227) CREATININE (test code 0.67 mg/dL 0.5-1.04 = 1106536143) CALCIUM (test code = 9.0 mg/dL 8.6-10.6 2273427329) eGFR Calculation mL/min/1.73m2 (Non-) (test code = 3230388802) eGFR Calculation mL/min/1.73m2 () (test code = 1864273183) JOSHUA (test code = JOSHUA) Association of [...] or urine or abnormalities in imaging tests). [facility] 10:50:00 Test Item Value Reference Range Interpretation Comments MAGNESIUM (test code = 1837908784) 2.2 mg/dL 1.7-2.4 Lab Interpretation (test code = Normal 55289-5) [facility] WITH [id number] 10:26:00 Test Item Value Reference Range Interpretation [...] RDW-SD (test code = 44.0 fL 39-49.9 52542-7) RDW-CV (test code = 12.6 % 12-15.5 788-0) PLT (test code = See_Comment [Automated 777-3) message] The sy stem which generated this result transmitted reference range : 166 - 358 10*3/ ?L. The reference r ramona was not used to interpret this result as normal/abnormal . MPV (test code = 9.7 fL 9.5-12.9 19326-6) NRBC/100 WBC (test See_Comment [Automat ed code = 4138054645) message] The system which generated this result transmitted reference range : 0.0 - 10.0 /100 WBCs. The refer ence range was not u sed to interpret th is result as normal/abnormal . NRBC x10^3 (test code <0.01 See_Comment [Auto mated = 1738272401) message] The s ystem which generated this result transmitted reference range : 10*3/?L. The reference range was not used to interpret this result as normal/abnormal . GRAN MAT (NEUT) % 57.7 % (test code = 770-8) IMM GRAN % (test code 0.20 % = 3585122293) LYMPH % (test code = 31.8 % 736-9) MONO % (test code = 8.1 % 5905-5) EOS % (test code = 1.9 % 713-8) BASO % (test code = 0.3 % 706-2) GRAN MAT x10^3(ANC) 5.12 10*3/uL 1.88-7.09 (test code = 2627567234) IMM GRAN x10^3 (test <0.03 0-0.06 code = 8628425674) LYMPH x10^3 (test code 2.82 10*3/uL 1.32-3.29 = 731-0) MONO x10^3 (test code 0.72 10*3/uL 0.33-0.92 = 742-7) EOS x10^3 (test code = 0.17 10*3/uL 0.03-0.39 711-2) BASO x10^3 (test code 0.03 10*3/uL 0.01-0.07 = 704-7) Lab Interpretation Abnormal (test code = 23532-2) [facility] GLUCOSE (AUTOMATED)2019-12-30 01:52:00 Test Item Value Reference Range Interpretation Comments POCT GLU (test code = 6202795720) 199 mg/dL 70-110 H Lab Interpretation (test code = Abnormal 97405-0) [facility] GLUCOSE (AUTOMATED)2019-12-29 23:34:00 Test Item Value Reference Range Interpretation Comments POCT GLU (test code = 2592208412) 120 mg/dL 70-110 H Lab Interpretation (test code = Abnormal 18208-0) [facility] GLUCOSE (AUTOMATED)2019-12-29 14:02:00 Test Item Value Reference Range Interpretation Comments POCT GLU (test code = 4338032245) 99 mg/dL 70-110 Lab Interpretation (test code = Normal 41256-2) [facility] Metabolic Panel (NA, K, CL, CO2, GLUCOSE, BUN, CREATININE, CA)2019-12-29 11:40:00 Test Item Value Reference Range Interpretation Comments NA (test code = 139 mmol/L 135-145 1314383758) K (test code = 4.2 mmol/L 3.5-5 Slight 0618023152) hemolysis CL (test code = 104 mmol/L 98-108 6506445785) CO2 TOTAL (test code 30 mmol/L 23-31 = 5698314446) AGAP (test code = 2-16 2134689355) BUN (test code = 18 mg/dL 7-23 Slight 6579988703) hemolysis GLUCOSE (test code = 116 mg/dL 70-110 H 4918888106) CREATININE (test code 0.61 mg/dL 0.5-1.04 = 0912845182) CALCIUM (test code = 8.9 mg/dL 8.6-10.6 4356169543) eGFR Calculation mL/min/1.73m2 (Non-) (test code = 5874970291) eGFR Calculation mL/min/1.73m2 () (test code = 1602639013) JOSHUA (test code = JOSHUA) Association of [...] tests). Lab Interpretation Abnormal (test code = 46604-8) [facility] [id number] 11:40:00 Test Item Value Reference Range Interpretation Comments MAGNESIUM (test code = 4943650277) 2.2 mg/dL 1.7-2.4 Lab Interpretation (test code = Normal 23196-7) [facility] (for use with Heparin Drip)2019-12-29 11:21:00 Test Item Value Reference Range Interpretation Comments APTT Patient (test code See_Comment HH [Au tomated message] = 3173-2) The system [employer] generated this result transmitted ref erence range: 26 - 36 Seconds. The reference range was not used to int erpret this result as normal/abnormal . Lab Interpretation (test Abnormal code = 48557-3) [facility] GLU[facility]SE (AUT[facility]ATED)2019-12-29 04:19:00 Test Item Value Reference Range Interpretation Comments POCT GLU (test code = 8131438150) 115 mg/dL 70-110 H Lab Interpretation (test code = Abnormal 64203-1) [facility] (Total Cholesterol, Triglycerides, HDL) - [id number] 03:03:00 Test Item Value Reference Range Interpretation Comments CHOL (test code = 164 mg/dL 120-200 4918782592) HDL (test code = 61 mg/dL >50 1484879503) HDLC RATIO (test code = See_Comment [Au tomated message] 4142297432) The system [employer] generated this result transmit shikha reference range : <=4.5. The refe rence range was not u sed to interpret th is result as normal/abnormal . TRIG (test code = 63 mg/dL 30-170 9279860000) LDL CHOL (test code = 90 mg/dL See_Comment [Auto mated message] 15403-6) The system [employer] generated this result transmit shikha reference range : <=160. The refe rence range was not u sed to interpret th is result as normal/abnormal . VLDL (test code = 13 mg/dL 5-60 8204802801) Lab Interpretation (test Normal code = 88544-1) [facility] use with Heparin Drip)2019-12-29 00:36:00 Test Item Value Reference Range Interpretation Comments APTT Patient (test code See_Comment H [Au tomated message] = 3173-2) The system [employer] generated this result transmitted ref erence range: 26 - 36 Seconds. The reference range was not used to int erpret this result as normal/abnormal . Lab Interpretation (test Abnormal code = 70027-2) [facility] HospitalTROPONIN [id number] 21:42:00 Test Item Value Reference Range Interpretation Comments TROPONIN I (test 0.081 ng/mL See_Comment H [Automated code = 0690444898) message] The system which generated this result [...] ? Lab Interpretation Abnormal (test code = 29622-0) [facility] HospitalProthrombin Time (PT) / [id number] 12:39:00 Test Item Value Reference Range Interpretation [...] tions. Lab Interpretation (test Normal code = 61769-7) [facility]PTT2020-11-19 12:39:00 Test Item Value Reference Range Interpretation Comments APTT Patient (test code = See_Comment [ Automated message] 3173-2) The system [employer] h generated this result transmitted ref erence range: 26 - 36 Seconds. The re ference range was not u sed to interpret this result as normal/abnor mal. Lab Interpretation (test Normal code = 71992-5) [facility] HospitalTroponin [id number] 11:11:00 Test Item Value Reference Range Interpretation Comments TROPONIN I (test 0.148 ng/mL See_Comment H [Automated code = 3415295021) message] The system which generated this result [...] ? Lab Interpretation Abnormal (test code = 64430-8) [facility] HospitalGlycosylated Hemoglobin (A1C)2019-12-28 10:57:00 Test Item Value Reference Range Interpretation Comments HGB A1C (test code = 5.8 % 4-6 4548-4) JOSHUA (test code = JOSHUA) %A1C (NGSP) Interpretation (ADA)4.8-5.6 ? ? Normal or (Non-Diabetic Range)5.7-6.4 ? ? Increased Risk (Pre-Diabetic)>6.5 ?Diabetes Indicated Lab Interpretation Normal (test code = 89010-4) [facility] HospitalThyroid Stimulating Hormone (TSH)2019-12-28 10:22:00 Test Item Value Reference Range Interpretation Comments TSH (test code = See_Comment Biotin has been 3649808587) reported to cau se a negative bias, interpret resul ts relative to pat ient's use of biotin. [Automated mess age] The system [employer] generated this result transmitted ref erence range: 0.45 - 4 .70 mIU/L. The refe rence range was not u sed to interpret this result as normal/abnor mal. Lab Interpretation (test Normal code = 29301-7) [facility] HospitalN-Terminal [id number] 10:22:00 Test Item Value Reference Range Interpretation Comments NT-proBNP (test code 636 pg/mL See_Comment H [Autom ated = 0050310973) message] The system which generated this result transmitted reference range : <=125. The reference range was not used to interpret this result as normal/abnormal . JOSHUA (test code = JOSHUA) Biotin has been reported to cause a negative bias, interpret results relative to patient's use of biotin. Lab Interpretation Abnormal (test code = 01470-6) [facility] HospitalCT CHEST PULMONARY [id number] 05:35:31 No acute pulmonary embolism through the [...] this study and agree with theabove report. [facility] HospitalXR CHEST 1 [id number] 03:07:42 No acute cardiopulmonary abnormality. Preliminary Report [...] reviewed this study and agree with theabove report.[facility] [place], [place] [id number] 02:26:00 Test Item Value Reference Range Interpretation Comments TROPONIN I (test 0.048 ng/mL See_Comment H [Automated code = 1518775200) message] The system which generated this result [...] ? Lab Interpretation Abnormal (test code = 89501-7) [facility] HospitalCOVID-[facility] (ID NOW RAPID TESTING)2019-12-28 02:22:00 Test Item Value Reference Range Interpretation Comments SARS-CoV-2 Rapid ID NOW Not Detected Not Detected (test code = 22792-4) JOSHUA (test code = JOSHUA) ID NOW COVID-19 Assay is an isothermal nucleic acid amplification test intended for the qualitative detection of nucleic acid from SARS-CoV-2 viral RNA in nasopharyngeal ([employer]) specimens. It is used under Emergency Use [...] indicated. Lab Interpretation Normal (test code = 51288-8) [facility]. METABOLIC PANEL (42821)2019-12-28 02:16:00 Test Item Value Reference Range Interpretation Comments NA (test code = 137 mmol/L 135-145 7727067015) K (test code = 3.8 mmol/L 3.5-5 4515913942) CL (test code = 101 mmol/L 98-108 5652531437) CO2 TOTAL (test code = 31 mmol/L 23-31 9947530039) AGAP (test code = 2-16 8382865198) BUN (test code = 18 mg/dL 7-23 8216469770) GLUCOSE (test code = 145 mg/dL 70-110 H 3893352629) CREATININE (test code = 0.55 mg/dL 0.5-1.04 7882437784) TOTAL BILI (test code = 0.4 mg/dL 0.1-1.4 8953116143) CALCIUM (test code = 8.8 mg/dL 8.6-10.6 9105580835) T PROTEIN (test code = 6.7 g/dL 6.3-8.2 9279651802) ALBUMIN (test code = 4.1 g/dL 3.5-5 0064687981) ALK PHOS (test code = 72 U/L 34-122 3979929561) ALTv (test code = 40 U/L 5-35 H 1742-6) AST(SGOT) (test code = 46 U/L 13-40 H 4490702270) eGFR Calculation mL/min/1.73m2 (Non-) (test code = 4317802999) eGFR Calculation mL/min/1.73m2 () (test code = 9886442355) JOSHUA (test code = JOSHUA) Association of [...] tests). Lab Interpretation Abnormal (test code = 60671-1) [facility] METABOLIC PANEL (NA, K, CL, CO2, GLUCOSE, BUN, CREATININE, CA)2019-12-28 02:16:00 Test Item Value Reference Range Interpretation Comments NA (test code = 137 mmol/L 135-145 4313205465) K (test code = 3.8 mmol/L 3.5-5 5182332910) CL (test code = 101 mmol/L 98-108 1992476598) CO2 TOTAL (test code = 31 mmol/L 23-31 6749169402) AGAP (test code = 2-16 1037635706) BUN (test code = 18 mg/dL 7-23 9165331979) GLUCOSE (test code = 145 mg/dL 70-110 H 1452403290) CREATININE (test code = 0.55 mg/dL 0.5-1.04 6089519820) CALCIUM (test code = 8.8 mg/dL 8.6-10.6 9537545178) eGFR Calculation mL/min/1.73m2 (Non-) (test code = 6308270105) eGFR Calculation mL/min/1.73m2 () (test code = 8069924282) JOSHUA (test code = JOSHUA) Association of [...] tests). Lab Interpretation Abnormal (test code = 16383-9) [facility] WITH [id number] 02:01:00 Test Item Value Reference Range Interpretation [...] RDW-SD (test code = 42.5 fL 39-49.9 12928-4) RDW-CV (test code = 12.2 % 12-15.5 788-0) PLT (test code = See_Comment [Automated 777-3) message] The sy stem which generated this result transmitted reference range : 166 - 358 10*3/ ?L. The reference r ramona was not used to interpret this result as normal/abnormal . MPV (test code = 9.7 fL 9.5-12.9 64489-9) NRBC/100 WBC (test See_Comment [Automat ed code = 9788980301) message] The system which generated this result transmitted reference range : 0.0 - 10.0 /100 WBCs. The refer ence range was not u sed to interpret th is result as normal/abnormal . NRBC x10^3 (test code <0.01 See_Comment [Auto mated = 7094340829) message] The s ystem which generated this result transmitted reference range : 10*3/?L. The reference range was not used to interpret this result as normal/abnormal . GRAN MAT (NEUT) % 52.2 % (test code = 770-8) IMM GRAN % (test code 0.30 % = 4984314184) LYMPH % (test code = 36.0 % 736-9) MONO % (test code = 7.3 % 5905-5) EOS % (test code = 3.7 % 713-8) BASO % (test code = 0.5 % 706-2) GRAN MAT x10^3(ANC) 3.36 10*3/uL 1.88-7.09 (test code = 9049040796) IMM GRAN x10^3 (test <0.03 0-0.06 code = 4368704010) LYMPH x10^3 (test code 2.32 10*3/uL 1.32-3.29 = 731-0) MONO x10^3 (test code 0.47 10*3/uL 0.33-0.92 = 742-7) EOS x10^3 (test code = 0.24 10*3/uL 0.03-0.39 711-2) BASO x10^3 (test code 0.03 10*3/uL 0.01-0.07 = 704-7) Lab Interpretation Abnormal (test code = 88698-5) [id number] 00:00:00 Test Item Value Reference Range Interpretation Comments GLUCOSE (test code = 2217) 110 MG/DL BUN (test code = 2208) 17 MG/DL CREATININE (test code = 2214) 0.63 MG/DL eGFR AMER. (test code 111 ML/MIN/1.73 = 94888) eGFR NON- AMER. (test 95 ML/MIN/1.73 code = 58053) CALC BUN/CREAT (test code = 27 RATIO 2235) SODIUM (test code = 2231) 137 MEQ/L POTASSIUM (test code = 2228) 4.6 MEQ/L CHLORIDE (test code = 2215) 101 MEQ/L CARBON DIOXIDE (test code = 24 MEQ/L 2205) CALCIUM (test code = 2209) 9.5 MG/DL PROTEIN, TOTAL (test code = 6.7 G/DL 2228) ALBUMIN (test code = 2201) 4.6 G/DL CALC GLOBULIN (test code = 2.1 G/DL 2240) CALC A/G RATIO (test code = 2.2 RATIO 2234) BILIRUBIN, TOTAL (test code = 0.3 MG/DL 2206) ALKALINE PHOSPHATASE (test 49 U/L code = 2204) AST (test code = 2218) 27 U/L ALT (test code = 2219) 26 U/L COMPREHENSIVE METABOLIC [id number] 00:00:00 Test Item Value Reference Range Interpretation Comments GLUCOSE (test code = 2217) 110 MG/DL BUN (test code = 2208) 17 MG/DL CREATININE (test code = 2214) 0.63 MG/DL eGFR AMER. (test code 111 ML/MIN/1.73 = 78109) eGFR NON- AMER. (test 95 ML/MIN/1.73 code = 16147) CALC BUN/CREAT (test code = 27 RATIO 2235) SODIUM (test code = 2231) 137 MEQ/L POTASSIUM (test code = 2228) 4.6 MEQ/L CHLORIDE (test code = 2215) 101 MEQ/L CARBON DIOXIDE (test code = 24 MEQ/L 2205) CALCIUM (test code = 2209) 9.5 MG/DL PROTEIN, TOTAL (test code = 6.7 G/DL 2228) ALBUMIN (test code = 2201) 4.6 G/DL CALC GLOBULIN (test code = 2.1 G/DL 2240) CALC A/G RATIO (test code = 2.2 RATIO 2234) BILIRUBIN, TOTAL (test code = 0.3 MG/DL 2206) ALKALINE PHOSPHATASE (test 49 U/L code = 2204) AST (test code = 2218) 27 U/L ALT (test code = 2219) 26 U/L COMPREHENSIVE METABOLIC [id number] 00:00:00 Test Item Value Reference Range Interpretation Comments GLUCOSE (test code = 2217) 110 MG/DL BUN (test code = 2208) 17 MG/DL CREATININE (test code = 2214) 0.63 MG/DL eGFR AMER. (test code 111 ML/MIN/1.73 = 00844) eGFR NON- AMER. (test 95 ML/MIN/1.73 code = 21124) CALC BUN/CREAT (test code = 27 RATIO 2235) SODIUM (test code = 2231) 137 MEQ/L POTASSIUM (test code = 2228) 4.6 MEQ/L CHLORIDE (test code = 2215) 101 MEQ/L CARBON DIOXIDE (test code = 24 MEQ/L 2205) CALCIUM (test code = 2209) 9.5 MG/DL PROTEIN, TOTAL (test code = 6.7 G/DL 2228) ALBUMIN (test code = 2201) 4.6 G/DL CALC GLOBULIN (test code = 2.1 G/DL 2240) CALC A/G RATIO (test code = 2.2 RATIO 2234) BILIRUBIN, TOTAL (test code = 0.3 MG/DL 2206) ALKALINE PHOSPHATASE (test 49 U/L code = 2204) AST (test code = 2218) 27 U/L ALT (test code = 2219) 26 U/L COMPREHENSIVE METABOLIC [id number] 00:00:00 Test Item Value Reference Range Interpretation Comments GLUCOSE (test code = 2217) 110 MG/DL BUN (test code = 2208) 17 MG/DL CREATININE (test code = 2214) 0.63 MG/DL eGFR AMER. (test code 111 ML/MIN/1.73 = 83032) eGFR NON- AMER. (test 95 ML/MIN/1.73 code = 75160) CALC BUN/CREAT (test code = 27 RATIO 2235) SODIUM (test code = 2231) 137 MEQ/L POTASSIUM (test code = 2228) 4.6 MEQ/L CHLORIDE (test code = 2215) 101 MEQ/L CARBON DIOXIDE (test code = 24 MEQ/L 2205) CALCIUM (test code = 2209) 9.5 MG/DL PROTEIN, TOTAL (test code = 6.7 G/DL 2228) ALBUMIN (test code = 2201) 4.6 G/DL CALC GLOBULIN (test code = 2.1 G/DL 2240) CALC A/G RATIO (test code = 2.2 RATIO 2234) BILIRUBIN, TOTAL (test code = 0.3 MG/DL 2206) ALKALINE PHOSPHATASE (test 49 U/L code = 2204) AST (test code = 2218) 27 U/L ALT (test code = 2219) 26 U/L COMPREHENSIVE METABOLIC [id number] 00:00:00 Test Item Value Reference Range Interpretation Comments GLUCOSE (test code = 2217) 110 MG/DL BUN (test code = 2208) 17 MG/DL CREATININE (test code = 2214) 0.63 MG/DL eGFR AMER. (test code 111 ML/MIN/1.73 = 74802) eGFR NON- AMER. (test 95 ML/MIN/1.73 code = 99133) CALC BUN/CREAT (test code = 27 RATIO 2235) SODIUM (test code = 2231) 137 MEQ/L POTASSIUM (test code = 2228) 4.6 MEQ/L CHLORIDE (test code = 2215) 101 MEQ/L CARBON DIOXIDE (test code = 24 MEQ/L 2205) CALCIUM (test code = 2209) 9.5 MG/DL PROTEIN, TOTAL (test code = 6.7 G/DL 2228) ALBUMIN (test code = 2201) 4.6 G/DL CALC GLOBULIN (test code = 2.1 G/DL 2240) CALC A/G RATIO (test code = 2.2 RATIO 2234) BILIRUBIN, TOTAL (test code = 0.3 MG/DL 2206) ALKALINE PHOSPHATASE (test 49 U/L code = 2204) AST (test code = 2218) 27 U/L ALT (test code = 2219) 26 U/L COMPREHENSIVE METABOLIC [id number] 00:00:00 Test Item Value Reference Range Interpretation Comments GLUCOSE (test code = 2217) 110 MG/DL BUN (test code = 2208) 17 MG/DL CREATININE (test code = 2214) 0.63 MG/DL eGFR AMER. (test code 111 ML/MIN/1.73 = 74410) eGFR NON- AMER. (test 95 ML/MIN/1.73 code = 94756) CALC BUN/CREAT (test code = 27 RATIO 2235) SODIUM (test code = 2231) 137 MEQ/L POTASSIUM (test code = 2228) 4.6 MEQ/L CHLORIDE (test code = 2215) 101 MEQ/L CARBON DIOXIDE (test code = 24 MEQ/L 220) CALCIUM (test code = 2209) 9.5 MG/DL PROTEIN, TOTAL (test code = 6.7 G/DL 2228) ALBUMIN (test code = 2201) 4.6 G/DL CALC GLOBULIN (test code = 2.1 G/DL 2240) CALC A/G RATIO (test code = 2.2 RATIO 2234) BILIRUBIN, TOTAL (test code = 0.3 MG/DL 2206) ALKALINE PHOSPHATASE (test 49 U/L code = 2204) AST (test code = 2218) 27 U/L ALT (test code = 2219) 26 U/L COMPREHENSIVE METABOLIC [id number] 00:00:00 Test Item Value Reference Range Interpretation Comments GLUCOSE (test code = 2217) 110 MG/DL BUN (test code = 2208) 17 MG/DL CREATININE (test code = 2214) 0.63 MG/DL eGFR AMER. (test code 111 ML/MIN/1.73 = 62854) eGFR NON- AMER. (test 95 ML/MIN/1.73 code = 19418) CALC BUN/CREAT (test code = 27 RATIO 2235) SODIUM (test code = 2231) 137 MEQ/L POTASSIUM (test code = 2228) 4.6 MEQ/L CHLORIDE (test code = 2215) 101 MEQ/L CARBON DIOXIDE (test code = 24 MEQ/L 2205) CALCIUM (test code = 2209) 9.5 MG/DL PROTEIN, TOTAL (test code = 6.7 G/DL 2228) ALBUMIN (test code = 2201) 4.6 G/DL CALC GLOBULIN (test code = 2.1 G/DL 0) CALC A/G RATIO (test code = 2.2 RATIO 4) BILIRUBIN, TOTAL (test code = 0.3 MG/DL 2206) ALKALINE PHOSPHATASE (test 49 U/L code = 2204) AST (test code = 2218) 27 U/L ALT (test code = 2219) 26 U/L COMPREHENSIVE METABOLIC [id number] 00:00:00 Test Item Value Reference Range Interpretation Comments GLUCOSE (test code = 2217) 110 MG/DL BUN (test code = 2208) 17 MG/DL CREATININE (test code = 2214) 0.63 MG/DL eGFR AMER. (test code 111 ML/MIN/1.73 = 62093) eGFR NON- AMER. (test 95 ML/MIN/1.73 code = 62268) CALC BUN/CREAT (test code = 27 RATIO 2235) SODIUM (test code = 2231) 137 MEQ/L POTASSIUM (test code = 2228) 4.6 MEQ/L CHLORIDE (test code = 2215) 101 MEQ/L CARBON DIOXIDE (test code = 24 MEQ/L 2205) CALCIUM (test code = 2209) 9.5 MG/DL PROTEIN, TOTAL (test code = 6.7 G/DL 2228) ALBUMIN (test code = 2201) 4.6 G/DL CALC GLOBULIN (test code = 2.1 G/DL 2240) CALC A/G RATIO (test code = 2.2 RATIO 2234) BILIRUBIN, TOTAL (test code = 0.3 MG/DL 2206) ALKALINE PHOSPHATASE (test 49 U/L code = 2204) AST (test code = 2218) 27 U/L ALT (test code = 2219) 26 U/L COMPREHENSIVE METABOLIC [id number] 00:00:00 Test Item Value Reference Range Interpretation Comments GLUCOSE (test code = 2217) 78 MG/DL BUN (test code = 2208) 13 MG/DL CREATININE (test code = 2214) 0.57 MG/DL eGFR AMER. (test code 114 ML/MIN/1.73 = 13616) eGFR NON- AMER. (test 99 ML/MIN/1.73 code = 86256) CALC BUN/CREAT (test code = 23 RATIO 2235) SODIUM (test code = 2231) 139 MEQ/L POTASSIUM (test code = 2228) 4.2 MEQ/L CHLORIDE (test code = 2215) 100 MEQ/L CARBON DIOXIDE (test code = 24 MEQ/L 2205) CALCIUM (test code = 2209) 9.7 MG/DL PROTEIN, TOTAL (test code = 7.1 G/DL 2228) ALBUMIN (test code = 2201) 4.7 G/DL CALC GLOBULIN (test code = 2.4 G/DL 2240) CALC A/G RATIO (test code = 2.0 RATIO 2234) BILIRUBIN, TOTAL (test code = 0.4 MG/DL 2206) ALKALINE PHOSPHATASE (test 51 U/L code = 2204) AST (test code = 2218) 30 U/L ALT (test code = 2219) 27 U/L COMPREHENSIVE METABOLIC [id number] 00:00:00 Test Item Value Reference Range Interpretation Comments GLUCOSE (test code = 2217) 78 MG/DL BUN (test code = 2208) 13 MG/DL CREATININE (test code = 2214) 0.57 MG/DL eGFR AMER. (test code 114 ML/MIN/1.73 = 32142) eGFR NON- AMER. (test 99 ML/MIN/1.73 code = 86791) CALC BUN/CREAT (test code = 23 RATIO 5) SODIUM (test code = 2231) 139 MEQ/L POTASSIUM (test code = 2228) 4.2 MEQ/L CHLORIDE (test code = 2215) 100 MEQ/L CARBON DIOXIDE (test code = 24 MEQ/L 2205) CALCIUM (test code = 2209) 9.7 MG/DL PROTEIN, TOTAL (test code = 7.1 G/DL 2228) ALBUMIN (test code = 2201) 4.7 G/DL CALC GLOBULIN (test code = 2.4 G/DL 2239) CALC A/G RATIO (test code = 2.0 RATIO 2233) BILIRUBIN, TOTAL (test code = 0.4 MG/DL 2206) ALKALINE PHOSPHATASE (test 51 U/L code = 220) AST (test code = 2218) 30 U/L ALT (test code = 2219) 27 U/L CBC W/AUTO [id number] 00:00:00 Test Item Value Reference Range Interpretation Comments WBC (test code = 1001) 7.2 K/UL RBC (test code = 1002) 5.04 M/UL HEMOGLOBIN (test code = 1003) 16.3 G/DL HEMATOCRIT (test code = 1004) 45.2 % MCV (test code = 1005) 89.7 fL MCH (test code = 1006) 32.3 PG MCHC (test code = 1007) 36.1 G/DL RDW (test code = 1038) 12.8 % NEUTROPHILS (test code = 1008) 63.3 % LYMPHOCYTES (test code = 1010) 27.7 % MONOCYTES (test code = 1011) 5.9 % EOSINOPHILS (test code = 1012) 2.5 % BASOPHILS (test code = 1013) 0.6 % PLATELET COUNT (test code = 1015) 268 K/UL CBC W/AUTO [id number] 00:00:00 Test Item Value Reference Range Interpretation Comments WBC (test code = 1001) 7.2 K/UL RBC (test code = 1002) 5.04 M/UL HEMOGLOBIN (test code = 1003) 16.3 G/DL HEMATOCRIT (test code = 1004) 45.2 % MCV (test code = 1005) 89.7 fL MCH (test code = 1006) 32.3 PG MCHC (test code = 1007) 36.1 G/DL RDW (test code = 1038) 12.8 % NEUTROPHILS (test code = 1008) 63.3 % LYMPHOCYTES (test code = 1010) 27.7 % MONOCYTES (test code = 1011) 5.9 % EOSINOPHILS (test code = 1012) 2.5 % BASOPHILS (test code = 1013) 0.6 % PLATELET COUNT (test code = 1015) 268 K/UL CBC W/AUTO [id number] 00:00:00 Test Item Value Reference Range Interpretation Comments WBC (test code = 1001) 7.2 K/UL RBC (test code = 1002) 5.04 M/UL HEMOGLOBIN (test code = 1003) 16.3 G/DL HEMATOCRIT (test code = 1004) 45.2 % MCV (test code = 1005) 89.7 fL MCH (test code = 1006) 32.3 PG MCHC (test code = 1007) 36.1 G/DL RDW (test code = 1038) 12.8 % NEUTROPHILS (test code = 1008) 63.3 % LYMPHOCYTES (test code = 1010) 27.7 % MONOCYTES (test code = 1011) 5.9 % EOSINOPHILS (test code = 1012) 2.5 % BASOPHILS (test code = 1013) 0.6 % PLATELET COUNT (test code = 1015) 268 K/UL COMPREHENSIVE METABOLIC [id number] 00:00:00 Test Item Value Reference Range Interpretation Comments GLUCOSE (test code = 2217) 78 MG/DL BUN (test code = 2208) 13 MG/DL CREATININE (test code = 2214) 0.57 MG/DL eGFR AMER. (test code 114 ML/MIN/1.73 = 35596) eGFR NON- AMER. (test 99 ML/MIN/1.73 code = 27144) CALC BUN/CREAT (test code = 23 RATIO 2235) SODIUM (test code = 2231) 139 MEQ/L POTASSIUM (test code = 2228) 4.2 MEQ/L CHLORIDE (test code = 2215) 100 MEQ/L CARBON DIOXIDE (test code = 24 MEQ/L 2205) CALCIUM (test code = 2209) 9.7 MG/DL PROTEIN, TOTAL (test code = 7.1 G/DL 2229) ALBUMIN (test code = 2201) 4.7 G/DL CALC GLOBULIN (test code = 2.4 G/DL 2240) CALC A/G RATIO (test code = 2.0 RATIO 2234) BILIRUBIN, TOTAL (test code = 0.4 MG/DL 2206) ALKALINE PHOSPHATASE (test 51 U/L code = 2204) AST (test code = 2218) 30 U/L ALT (test code = 2219) 27 U/L COMPREHENSIVE METABOLIC [id number] 00:00:00 Test Item Value Reference Range Interpretation Comments GLUCOSE (test code = 2217) 78 MG/DL BUN (test code = 2208) 13 MG/DL CREATININE (test code = 2214) 0.57 MG/DL eGFR AMER. (test code 114 ML/MIN/1.73 = 36243) eGFR NON- AMER. (test 99 ML/MIN/1.73 code = 16408) CALC BUN/CREAT (test code = 23 RATIO 2235) SODIUM (test code = 2231) 139 MEQ/L POTASSIUM (test code = 2228) 4.2 MEQ/L CHLORIDE (test code = 2215) 100 MEQ/L CARBON DIOXIDE (test code = 24 MEQ/L 220) CALCIUM (test code = 2209) 9.7 MG/DL PROTEIN, TOTAL (test code = 7.1 G/DL 2228) ALBUMIN (test code = 2201) 4.7 G/DL CALC GLOBULIN (test code = 2.4 G/DL 2240) CALC A/G RATIO (test code = 2.0 RATIO 2234) BILIRUBIN, TOTAL (test code = 0.4 MG/DL 2206) ALKALINE PHOSPHATASE (test 51 U/L code = 2204) AST (test code = 2218) 30 U/L ALT (test code = 2219) 27 U/L CBC W/AUTO [id number] 00:00:00 Test Item Value Reference Range Interpretation Comments WBC (test code = 1001) 7.2 K/UL RBC (test code = 1002) 5.04 M/UL HEMOGLOBIN (test code = 1003) 16.3 G/DL HEMATOCRIT (test code = 1004) 45.2 % MCV (test code = 1005) 89.7 fL MCH (test code = 1006) 32.3 PG MCHC (test code = 1007) 36.1 G/DL RDW (test code = 1038) 12.8 % NEUTROPHILS (test code = 1008) 63.3 % LYMPHOCYTES (test code = 1010) 27.7 % MONOCYTES (test code = 1011) 5.9 % EOSINOPHILS (test code = 1012) 2.5 % BASOPHILS (test code = 1013) 0.6 % PLATELET COUNT (test code = 1015) 268 K/UL CBC W/AUTO [id number] 00:00:00 Test Item Value Reference Range Interpretation Comments WBC (test code = 1001) 7.2 K/UL RBC (test code = 1002) 5.04 M/UL HEMOGLOBIN (test code = 1003) 16.3 G/DL HEMATOCRIT (test code = 1004) 45.2 % MCV (test code = 1005) 89.7 fL MCH (test code = 1006) 32.3 PG MCHC (test code = 1007) 36.1 G/DL RDW (test code = 1038) 12.8 % NEUTROPHILS (test code = 1008) 63.3 % LYMPHOCYTES (test code = 1010) 27.7 % MONOCYTES (test code = 1011) 5.9 % EOSINOPHILS (test code = 1012) 2.5 % BASOPHILS (test code = 1013) 0.6 % PLATELET COUNT (test code = 1015) 268 K/UL CBC W/AUTO [id number] 00:00:00 Test Item Value Reference Range Interpretation Comments WBC (test code = 1001) 7.2 K/UL RBC (test code = 1002) 5.04 M/UL HEMOGLOBIN (test code = 1003) 16.3 G/DL HEMATOCRIT (test code = 1004) 45.2 % MCV (test code = 1005) 89.7 fL MCH (test code = 1006) 32.3 PG MCHC (test code = 1007) 36.1 G/DL RDW (test code = 1038) 12.8 % NEUTROPHILS (test code = 1008) 63.3 % LYMPHOCYTES (test code = 1010) 27.7 % MONOCYTES (test code = 1011) 5.9 % EOSINOPHILS (test code = 1012) 2.5 % BASOPHILS (test code = 1013) 0.6 % PLATELET COUNT (test code = 1015) 268 K/UL COMPREHENSIVE METABOLIC [id number] 00:00:00 Test Item Value Reference Range Interpretation Comments GLUCOSE (test code = 2217) 78 MG/DL BUN (test code = 2208) 13 MG/DL CREATININE (test code = 2214) 0.57 MG/DL eGFR AMER. (test code 114 ML/MIN/1.73 = 97915) eGFR NON- AMER. (test 99 ML/MIN/1.73 code = 31313) CALC BUN/CREAT (test code = 23 RATIO 2235) SODIUM (test code = 2231) 139 MEQ/L POTASSIUM (test code = 2228) 4.2 MEQ/L CHLORIDE (test code = 2215) 100 MEQ/L CARBON DIOXIDE (test code = 24 MEQ/L 220) CALCIUM (test code = 2209) 9.7 MG/DL PROTEIN, TOTAL (test code = 7.1 G/DL 2228) ALBUMIN (test code = 2201) 4.7 G/DL CALC GLOBULIN (test code = 2.4 G/DL 2240) CALC A/G RATIO (test code = 2.0 RATIO 2233) BILIRUBIN, TOTAL (test code = 0.4 MG/DL 2206) ALKALINE PHOSPHATASE (test 51 U/L code = 2204) AST (test code = 2218) 30 U/L ALT (test code = 2219) 27 U/L COMPREHENSIVE METABOLIC [id number] 00:00:00 Test Item Value Reference Range Interpretation Comments GLUCOSE (test code = 2217) 78 MG/DL BUN (test code = 2208) 13 MG/DL CREATININE (test code = 2214) 0.57 MG/DL eGFR AMER. (test code 114 ML/MIN/1.73 = 03225) eGFR NON- AMER. (test 99 ML/MIN/1.73 code = 89066) CALC BUN/CREAT (test code = 23 RATIO 2235) SODIUM (test code = 2231) 139 MEQ/L POTASSIUM (test code = 2228) 4.2 MEQ/L CHLORIDE (test code = 2215) 100 MEQ/L CARBON DIOXIDE (test code = 24 MEQ/L 2206) CALCIUM (test code = 2209) 9.7 MG/DL PROTEIN, TOTAL (test code = 7.1 G/DL 2228) ALBUMIN (test code = 2201) 4.7 G/DL CALC GLOBULIN (test code = 2.4 G/DL 2240) CALC A/G RATIO (test code = 2.0 RATIO 2234) BILIRUBIN, TOTAL (test code = 0.4 MG/DL 2207) ALKALINE PHOSPHATASE (test 51 U/L code = 2204) AST (test code = 2218) 30 U/L ALT (test code = 2219) 27 U/L CBC W/AUTO [id number] 00:00:00 Test Item Value Reference Range Interpretation Comments WBC (test code = 1001) 7.2 K/UL RBC (test code = 1002) 5.04 M/UL HEMOGLOBIN (test code = 1003) 16.3 G/DL HEMATOCRIT (test code = 1004) 45.2 % MCV (test code = 1005) 89.7 fL MCH (test code = 1006) 32.3 PG MCHC (test code = 1007) 36.1 G/DL RDW (test code = 1038) 12.8 % NEUTROPHILS (test code = 1008) 63.3 % LYMPHOCYTES (test code = 1010) 27.7 % MONOCYTES (test code = 1011) 5.9 % EOSINOPHILS (test code = 1012) 2.5 % BASOPHILS (test code = 1013) 0.6 % PLATELET COUNT (test code = 1015) 268 K/UL CBC W/AUTO [id number] 00:00:00 Test Item Value Reference Range Interpretation Comments WBC (test code = 1001) 7.2 K/UL RBC (test code = 1002) 5.04 M/UL HEMOGLOBIN (test code = 1003) 16.3 G/DL HEMATOCRIT (test code = 1004) 45.2 % MCV (test code = 1005) 89.7 fL MCH (test code = 1006) 32.3 PG MCHC (test code = 1007) 36.1 G/DL RDW (test code = 1038) 12.8 % NEUTROPHILS (test code = 1008) 63.3 % LYMPHOCYTES (test code = 1010) 27.7 % MONOCYTES (test code = 1011) 5.9 % EOSINOPHILS (test code = 1012) 2.5 % BASOPHILS (test code = 1013) 0.6 % PLATELET COUNT (test code = 1015) 268 K/UL CBC W/AUTO [id number] 00:00:00 Test Item Value Reference Range Interpretation Comments WBC (test code = 1001) 7.2 K/UL RBC (test code = 1002) 5.04 M/UL HEMOGLOBIN (test code = 1003) 16.3 G/DL HEMATOCRIT (test code = 1004) 45.2 % MCV (test code = 1005) 89.7 fL MCH (test code = 1006) 32.3 PG MCHC (test code = 1007) 36.1 G/DL RDW (test code = 1038) 12.8 % NEUTROPHILS (test code = 1008) 63.3 % LYMPHOCYTES (test code = 1010) 27.7 % MONOCYTES (test code = 1011) 5.9 % EOSINOPHILS (test code = 1012) 2.5 % BASOPHILS (test code = 1013) 0.6 % PLATELET COUNT (test code = 1015) 268 K/UL COMPREHENSIVE METABOLIC [id number] 00:00:00 Test Item Value Reference Range Interpretation Comments GLUCOSE (test code = 2217) 78 MG/DL BUN (test code = 2208) 13 MG/DL CREATININE (test code = 2214) 0.57 MG/DL eGFR AMER. (test code 114 ML/MIN/1.73 = 20805) eGFR NON- AMER. (test 99 ML/MIN/1.73 code = 86420) CALC BUN/CREAT (test code = 23 RATIO 2235) SODIUM (test code = 2231) 139 MEQ/L POTASSIUM (test code = 2228) 4.2 MEQ/L CHLORIDE (test code = 2215) 100 MEQ/L CARBON DIOXIDE (test code = 24 MEQ/L 220) CALCIUM (test code = 2209) 9.7 MG/DL PROTEIN, TOTAL (test code = 7.1 G/DL 2228) ALBUMIN (test code = 2201) 4.7 G/DL CALC GLOBULIN (test code = 2.4 G/DL 2240) CALC A/G RATIO (test code = 2.0 RATIO 2234) BILIRUBIN, TOTAL (test code = 0.4 MG/DL 2206) ALKALINE PHOSPHATASE (test 51 U/L code = 2204) AST (test code = 2218) 30 U/L ALT (test code = 2219) 27 U/L COMPREHENSIVE METABOLIC [id number] 00:00:00 Test Item Value Reference Range Interpretation Comments GLUCOSE (test code = 2217) 78 MG/DL BUN (test code = 2208) 13 MG/DL CREATININE (test code = 2214) 0.57 MG/DL eGFR AMER. (test code 114 ML/MIN/1.73 = 65766) eGFR NON- AMER. (test 99 ML/MIN/1.73 code = 34743) CALC BUN/CREAT (test code = 23 RATIO 2235) SODIUM (test code = 2231) 139 MEQ/L POTASSIUM (test code = 2228) 4.2 MEQ/L CHLORIDE (test code = 2215) 100 MEQ/L CARBON DIOXIDE (test code = 24 MEQ/L 220) CALCIUM (test code = 2209) 9.7 MG/DL PROTEIN, TOTAL (test code = 7.1 G/DL 2228) ALBUMIN (test code = 2201) 4.7 G/DL CALC GLOBULIN (test code = 2.4 G/DL 2239) CALC A/G RATIO (test code = 2.0 RATIO 2234) BILIRUBIN, TOTAL (test code = 0.4 MG/DL 2206) ALKALINE PHOSPHATASE (test 51 U/L code = 2204) AST (test code = 2218) 30 U/L ALT (test code = 2219) 27 U/L CBC W/AUTO [id number] 00:00:00 Test Item Value Reference Range Interpretation Comments WBC (test code = 1001) 7.2 K/UL RBC (test code = 1002) 5.04 M/UL HEMOGLOBIN (test code = 1003) 16.3 G/DL HEMATOCRIT (test code = 1004) 45.2 % MCV (test code = 1005) 89.7 fL MCH (test code = 1006) 32.3 PG MCHC (test code = 1007) 36.1 G/DL RDW (test code = 1038) 12.8 % NEUTROPHILS (test code = 1008) 63.3 % LYMPHOCYTES (test code = 1010) 27.7 % MONOCYTES (test code = 1011) 5.9 % EOSINOPHILS (test code = 1012) 2.5 % BASOPHILS (test code = 1013) 0.6 % PLATELET COUNT (test code = 1015) 268 K/UL CBC W/AUTO [id number] 00:00:00 Test Item Value Reference Range Interpretation Comments WBC (test code = 1001) 7.2 K/UL RBC (test code = 1002) 5.04 M/UL HEMOGLOBIN (test code = 1003) 16.3 G/DL HEMATOCRIT (test code = 1004) 45.2 % MCV (test code = 1005) 89.7 fL MCH (test code = 1006) 32.3 PG MCHC (test code = 1007) 36.1 G/DL RDW (test code = 1038) 12.8 % NEUTROPHILS (test code = 1008) 63.3 % LYMPHOCYTES (test code = 1010) 27.7 % MONOCYTES (test code = 1011) 5.9 % EOSINOPHILS (test code = 1012) 2.5 % BASOPHILS (test code = 1013) 0.6 % PLATELET COUNT (test code = 1015) 268 K/UL CBC W/AUTO [id number] 00:00:00 Test Item Value Reference Range Interpretation Comments WBC (test code = 1001) 7.2 K/UL RBC (test code = 1002) 5.04 M/UL HEMOGLOBIN (test code = 1003) 16.3 G/DL HEMATOCRIT (test code = 1004) 45.2 % MCV (test code = 1005) 89.7 fL MCH (test code = 1006) 32.3 PG MCHC (test code = 1007) 36.1 G/DL RDW (test code = 1038) 12.8 % NEUTROPHILS (test code = 1008) 63.3 % LYMPHOCYTES (test code = 1010) 27.7 % MONOCYTES (test code = 1011) 5.9 % EOSINOPHILS (test code = 1012) 2.5 % BASOPHILS (test code = 1013) 0.6 % PLATELET COUNT (test code = 1015) 268 K/UL Chest 1 [id number] 22:39:59 No acute cardiopulmonary abnormality. Emphysematous changes. Preliminary Report Dictated by Resident: Chaitanya Reyes MD., have reviewed this study and agree with the abovereport.EXAM: XR CHEST 1 VW CLINICAL INDICATION: chest pain COMPARISON: None FINDINGS: The lungs are hyperexpanded and clear without focal consolidation, pleuraleffusion, or pneumothorax. The cardiac silhouette is normal in size. No acute osseous abnormality. [facility], Radiant Results Inft User - 07/27/2019 5:41 PM CDTEXAM: XR CHEST 1 VWCLINICAL INDICATION: chest pain COMPARISON: NoneFINDINGS:The lungs are hyperexpandedand clear without focal consolidation, pleuraleffusion, or pneumothorax. The cardiac silhouette is normal in size. No acute osseous abnormality. IMPRESSIONNo acute cardiopulmonary abnormality.Emphysematous changes.Preliminary Report Dictated by Resident: Madi Brantley, Chaitanya Schulz MD., have reviewed this study and agree with the abovereport.[facility] [id number] 22:28:00 Test Item Value Reference Range Interpretation Comments TROPONIN I (test <0.012 See_Comment [Automated code = 3789966206) message] The system which generated this result [...] ? Lab Interpretation Normal (test code = 55769-8) [facility] [id number] 22:24:00 Test Item Value Reference Range Interpretation Comments NT-proBNP (test code 675 pg/mL See_Comment H [Autom ated = [id number]) message] The system which generated this result transmitted reference range : <=125. The reference range was not used to interpret this result as normal/abnormal . JOSHUA (test code = JOSHUA) Biotin has been reported to cause a negative bias, interpret results relative to patient's use of biotin. Lab Interpretation Abnormal (test code = 09071-3) [facility]Proth[facility]bin Time (PT) / [id number] 22:20:00 Test Item Value Reference Range Interpretation Comments PROTIME PATIENT (test See_Comment [Auto mated message] code = 5964-2) The system [employer] generated this result transmitted ref erence range: 12.0 - 1 4.7 Seconds. The re ference range was not u sed to interpret this result as normal/abnor mal. INR (test code = 6301-6) Nor mal INR <1.1; Warfarin Therap eutic range 2.0 to 3. 0 or 2.5 to 3.5, dep ending upon the indica tions. Lab Interpretation (test Normal code = 28352-5) [facility] (NA, K, CL, CO2, GLUCOSE, BUN, CREATININE, CA)2019-07-27 22:17:00 Test Item Value Reference Range Interpretation Comments NA (test code = 138 mmol/L 135-145 3594480025) K (test code = 4.4 mmol/L 3.5-5 8989436562) CL (test code = 101 mmol/L 98-108 0134968942) CO2 TOTAL (test code = 28 mmol/L 23-31 6953911582) AGAP (test code = 2-16 6545923981) BUN (test code = 16 mg/dL 7-23 1969640847) GLUCOSE (test code = 88 mg/dL 70-110 3712158854) CREATININE (test code 0.55 mg/dL 0.5-1.04 = 1176764137) CALCIUM (test code = 10.1 mg/dL 8.6-10.6 5983701922) eGFR Calculation mL/min/1.73m2 (Non-) (test code = 6947480822) eGFR Calculation mL/min/1.73m2 () (test code = 3183732385) JOSHUA (test code = JOSHUA) Association of [...] or urine or abnormalities in imaging tests). [facility]Hep[facility] (ALB, T.PRO, BILI T, BU/BC, ALT, AST, ALK PHOS)2019-07-27 22:17:00 Test Item Value Reference Range Interpretation Comments TOTAL BILI (test code = 6917647481) 0.7 mg/dL 0.1-1.1 BILI UNCON (test code = 9190516121) 0.8 mg/dL 0.1-1.1 BILI CONJ (test code = 0561197199) 0.0 mg/dL 0-0.3 T PROTEIN (test code = 0339525538) 7.7 g/dL 6.3-8.2 ALBUMIN (test code = 0583263010) 4.8 g/dL 3.5-5 ALK PHOS (test code = 7373546618) 49 U/L 34-122 ALTv (test code = 1742-6) 35 U/L 5-35 AST(SGOT) (test code = 5133975708) 42 U/L 13-40 H Lab Interpretation (test code = Abnormal 22174-9) [facility]COVID[facility] (ID NOW RAPID TESTING)2019-07-27 22:16:00 Test Item Value Reference Range Interpretation Comments SARS-CoV-2 Rapid ID NOW Not Detected Not Detected (test code = 10421-1) JOSHUA (test code = JOSHUA) ID NOW COVID-19 Assay is an isothermal nucleic acid amplification test intended for the qualitative detection of nucleic acid from SARS-CoV-2 viral RNA in nasopharyngeal ([employer]) specimens. It is used under Emergency Use [...] indicated. Lab Interpretation Normal (test code = 61240-7) [facility] WITH [id number] 21:58:00 Test Item Value Reference Range Interpretation Comments WBC (test code = See_Comment [Automated 5790-2) message] The sy stem which generated this result transmitted reference range : 4.30 - 11.10 10*3/?L. The reference range was not used to interpret this result as normal/abnormal . RBC (test code = See_Comment [Automated 959-8) message] The sy stem which generated this [...] RDW-SD (test code = 41.4 fL 39-49.9 37290-4) RDW-CV (test code = 12.2 % 12-15.5 788-0) PLT (test code = See_Comment [Automated 777-3) message] The sy stem which generated this result transmitted reference range : 166 - 358 10*3/ ?L. The reference r ramona was not used to interpret this result as normal/abnormal . MPV (test code = 9.7 fL 9.5-12.9 52325-0) NRBC/100 WBC (test See_Comment [Automat ed code = [id number]) message] The system which generated this result transmitted reference range : 0.0 - 10.0 /100 WBCs. The refer ence range was not u sed to interpret th is result as normal/abnormal . NRBC x10^3 (test code <0.01 See_Comment [Auto mated = [id number]) message] The s ystem which generated this result transmitted reference range : 10*3/?L. The reference range was not used to interpret this result as normal/abnormal . GRAN MAT (NEUT) % 72.2 % (test code = 770-8) IMM GRAN % (test code 0.40 % = [id number]) LYMPH % (test code = 19.5 % 736-9) MONO % (test code = 5.2 % 5905-5) EOS % (test code = 2.1 % 713-8) BASO % (test code = 0.6 % 706-2) GRAN MAT x10^3(ANC) 7.15 10*3/uL 1.88-7.09 H (test code = [id number]) IMM GRAN x10^3 (test 0.04 10*3/uL 0-0.06 code = [id number]) LYMPH x10^3 (test code 1.93 10*3/uL 1.32-3.29 = 731-0) MONO x10^3 (test code 0.52 10*3/uL 0.33-0.92 = 742-7) EOS x10^3 (test code = 0.21 10*3/uL 0.03-0.39 711-2) BASO x10^3 (test code 0.06 10*3/uL 0.01-0.07 = 704-7) Lab Interpretation Abnormal (test code = 86126-4) [facility] [id number] 00:00:00 Test Item Value Reference Range Interpretation Comments GLUCOSE (test code = 2217) 113 MG/DL BUN (test code = 2208) 8 MG/DL CREATININE (test code = 2214) 0.64 MG/DL eGFR AMER. (test code 110 ML/MIN/1.73 = 33667) eGFR NON- AMER. (test 95 ML/MIN/1.73 code = 10140) CALC BUN/CREAT (test code = 13 RATIO 2235) SODIUM (test code = 2231) 139 MEQ/L POTASSIUM (test code = 2228) 4.3 MEQ/L CHLORIDE (test code = 2215) 97 MEQ/L CARBON DIOXIDE (test code = 26 MEQ/L 2206) CALCIUM (test code = 2209) 9.8 MG/DL PROTEIN, TOTAL (test code = 7.2 G/DL 2228) ALBUMIN (test code = 2201) 5.1 G/DL CALC GLOBULIN (test code = 2.1 G/DL 2240) CALC A/G RATIO (test code = 2.4 RATIO 4) BILIRUBIN, TOTAL (test code = 0.4 MG/DL 2206) ALKALINE PHOSPHATASE (test 56 U/L code = 2204) AST (test code = 2218) 27 U/L ALT (test code = 2219) 28 U/L COMPREHENSIVE METABOLIC [id number] 00:00:00 Test Item Value Reference Range Interpretation Comments GLUCOSE (test code = 2217) 113 MG/DL BUN (test code = 2208) 8 MG/DL CREATININE (test code = 2214) 0.64 MG/DL eGFR AMER. (test code 110 ML/MIN/1.73 = 12554) eGFR NON- AMER. (test 95 ML/MIN/1.73 code = 03329) CALC BUN/CREAT (test code = 13 RATIO 2235) SODIUM (test code = 2231) 139 MEQ/L POTASSIUM (test code = 2228) 4.3 MEQ/L CHLORIDE (test code = 2215) 97 MEQ/L CARBON DIOXIDE (test code = 26 MEQ/L 2206) CALCIUM (test code = 2209) 9.8 MG/DL PROTEIN, TOTAL (test code = 7.2 G/DL 222) ALBUMIN (test code = 2201) 5.1 G/DL CALC GLOBULIN (test code = 2.1 G/DL 2240) CALC A/G RATIO (test code = 2.4 RATIO 2234) BILIRUBIN, TOTAL (test code = 0.4 MG/DL 2206) ALKALINE PHOSPHATASE (test 56 U/L code = 2204) AST (test code = 2218) 27 U/L ALT (test code = 2219) 28 U/L COMPREHENSIVE METABOLIC [id number] 00:00:00 Test Item Value Reference Range Interpretation Comments GLUCOSE (test code = 2217) 113 MG/DL BUN (test code = 2208) 8 MG/DL CREATININE (test code = 2214) 0.64 MG/DL eGFR AMER. (test code 110 ML/MIN/1.73 = 61973) eGFR NON- AMER. (test 95 ML/MIN/1.73 code = 34224) CALC BUN/CREAT (test code = 13 RATIO 2235) SODIUM (test code = 2231) 139 MEQ/L POTASSIUM (test code = 2228) 4.3 MEQ/L CHLORIDE (test code = 2215) 97 MEQ/L CARBON DIOXIDE (test code = 26 MEQ/L 2205) CALCIUM (test code = 2209) 9.8 MG/DL PROTEIN, TOTAL (test code = 7.2 G/DL 2228) ALBUMIN (test code = 2201) 5.1 G/DL CALC GLOBULIN (test code = 2.1 G/DL 2240) CALC A/G RATIO (test code = 2.4 RATIO 2234) BILIRUBIN, TOTAL (test code = 0.4 MG/DL 2206) ALKALINE PHOSPHATASE (test 56 U/L code = 2204) AST (test code = 2218) 27 U/L ALT (test code = 2219) 28 U/L COMPREHENSIVE METABOLIC [id number] 00:00:00 Test Item Value Reference Range Interpretation Comments GLUCOSE (test code = 2217) 113 MG/DL BUN (test code = 2208) 8 MG/DL CREATININE (test code = 2214) 0.64 MG/DL eGFR AMER. (test code 110 ML/MIN/1.73 = 33473) eGFR NON- AMER. (test 95 ML/MIN/1.73 code = 95377) CALC BUN/CREAT (test code = 13 RATIO 2235) SODIUM (test code = 2231) 139 MEQ/L POTASSIUM (test code = 2228) 4.3 MEQ/L CHLORIDE (test code = 2215) 97 MEQ/L CARBON DIOXIDE (test code = 26 MEQ/L 2206) CALCIUM (test code = 2209) 9.8 MG/DL PROTEIN, TOTAL (test code = 7.2 G/DL 2228) ALBUMIN (test code = 2201) 5.1 G/DL CALC GLOBULIN (test code = 2.1 G/DL 2240) CALC A/G RATIO (test code = 2.4 RATIO 2234) BILIRUBIN, TOTAL (test code = 0.4 MG/DL 2206) ALKALINE PHOSPHATASE (test 56 U/L code = 220) AST (test code = 2218) 27 U/L ALT (test code = 2219) 28 U/L COMPREHENSIVE METABOLIC [id number] 00:00:00 Test Item Value Reference Range Interpretation Comments GLUCOSE (test code = 2217) 113 MG/DL BUN (test code = 2208) 8 MG/DL CREATININE (test code = 2214) 0.64 MG/DL eGFR AMER. (test code 110 ML/MIN/1.73 = 78463) eGFR NON- AMER. (test 95 ML/MIN/1.73 code = 62731) CALC BUN/CREAT (test code = 13 RATIO 2235) SODIUM (test code = 2231) 139 MEQ/L POTASSIUM (test code = 2228) 4.3 MEQ/L CHLORIDE (test code = 2215) 97 MEQ/L CARBON DIOXIDE (test code = 26 MEQ/L 2206) CALCIUM (test code = 2209) 9.8 MG/DL PROTEIN, TOTAL (test code = 7.2 G/DL 2228) ALBUMIN (test code = 2201) 5.1 G/DL CALC GLOBULIN (test code = 2.1 G/DL 2240) CALC A/G RATIO (test code = 2.4 RATIO 2234) BILIRUBIN, TOTAL (test code = 0.4 MG/DL 2206) ALKALINE PHOSPHATASE (test 56 U/L code = 2204) AST (test code = 2218) 27 U/L ALT (test code = 2219) 28 U/L COMPREHENSIVE METABOLIC [id number] 00:00:00 Test Item Value Reference Range Interpretation Comments GLUCOSE (test code = 2217) 113 MG/DL BUN (test code = 2208) 8 MG/DL CREATININE (test code = 2214) 0.64 MG/DL eGFR AMER. (test code 110 ML/MIN/1.73 = 29219) eGFR NON- AMER. (test 95 ML/MIN/1.73 code = 13126) CALC BUN/CREAT (test code = 13 RATIO 2235) SODIUM (test code = 2231) 139 MEQ/L POTASSIUM (test code = 2228) 4.3 MEQ/L CHLORIDE (test code = 2215) 97 MEQ/L CARBON DIOXIDE (test code = 26 MEQ/L 2205) CALCIUM (test code = 2209) 9.8 MG/DL PROTEIN, TOTAL (test code = 7.2 G/DL 2228) ALBUMIN (test code = 2201) 5.1 G/DL CALC GLOBULIN (test code = 2.1 G/DL 2239) CALC A/G RATIO (test code = 2.4 RATIO 2234) BILIRUBIN, TOTAL (test code = 0.4 MG/DL 2206) ALKALINE PHOSPHATASE (test 56 U/L code = 2204) AST (test code = 2218) 27 U/L ALT (test code = 2219) 28 U/L COMPREHENSIVE METABOLIC [id number] 00:00:00 Test Item Value Reference Range Interpretation Comments GLUCOSE (test code = 2217) 113 MG/DL BUN (test code = 2208) 8 MG/DL CREATININE (test code = 2214) 0.64 MG/DL eGFR AMER. (test code 110 ML/MIN/1.73 = 58756) eGFR NON- AMER. (test 95 ML/MIN/1.73 code = 10916) CALC BUN/CREAT (test code = 13 RATIO 2235) SODIUM (test code = 2231) 139 MEQ/L POTASSIUM (test code = 2228) 4.3 MEQ/L CHLORIDE (test code = 2215) 97 MEQ/L CARBON DIOXIDE (test code = 26 MEQ/L 220) CALCIUM (test code = 2209) 9.8 MG/DL PROTEIN, TOTAL (test code = 7.2 G/DL 2228) ALBUMIN (test code = 2201) 5.1 G/DL CALC GLOBULIN (test code = 2.1 G/DL 2240) CALC A/G RATIO (test code = 2.4 RATIO 2234) BILIRUBIN, TOTAL (test code = 0.4 MG/DL 2206) ALKALINE PHOSPHATASE (test 56 U/L code = 2204) AST (test code = 2218) 27 U/L ALT (test code = 2219) 28 U/L COMPREHENSIVE METABOLIC [id number] 00:00:00 Test Item Value Reference Range Interpretation Comments GLUCOSE (test code = 2217) 113 MG/DL BUN (test code = 2208) 8 MG/DL CREATININE (test code = 2214) 0.64 MG/DL eGFR AMER. (test code 110 ML/MIN/1.73 = 25678) eGFR NON- AMER. (test 95 ML/MIN/1.73 code = 19316) CALC BUN/CREAT (test code = 13 RATIO 2235) SODIUM (test code = 2231) 139 MEQ/L POTASSIUM (test code = 2228) 4.3 MEQ/L CHLORIDE (test code = 2215) 97 MEQ/L CARBON DIOXIDE (test code = 26 MEQ/L 2205) CALCIUM (test code = 2209) 9.8 MG/DL PROTEIN, TOTAL (test code = 7.2 G/DL 2228) ALBUMIN (test code = 2201) 5.1 G/DL CALC GLOBULIN (test code = 2.1 G/DL 2240) CALC A/G RATIO (test code = 2.4 RATIO 2234) BILIRUBIN, TOTAL (test code = 0.4 MG/DL 2206) ALKALINE PHOSPHATASE (test 56 U/L code = 2204) AST (test code = 2218) 27 U/L ALT (test code = 2219) 28 U/L COMPREHENSIVE METABOLIC [id number] 00:00:00 Test Item Value Reference Range Interpretation Comments GLUCOSE (test code = 2217) 103 MG/DL BUN (test code = 2208) 13 MG/DL CREATININE (test code = 2214) 0.83 MG/DL eGFR AMER. (test code 88 ML/MIN/1.73 = 54310) eGFR NON- AMER. (test 76 ML/MIN/1.73 code = 12716) CALC BUN/CREAT (test code = 16 RATIO 2235) SODIUM (test code = 2231) 141 MEQ/L POTASSIUM (test code = 2228) 4.7 MEQ/L CHLORIDE (test code = 2215) 98 MEQ/L CARBON DIOXIDE (test code = 26 MEQ/L 220) CALCIUM (test code = 2209) 9.9 MG/DL PROTEIN, TOTAL (test code = 7.1 G/DL 2228) ALBUMIN (test code = 2201) 4.8 G/DL CALC GLOBULIN (test code = 2.3 G/DL 2240) CALC A/G RATIO (test code = 2.1 RATIO 2234) BILIRUBIN, TOTAL (test code = 0.4 MG/DL 2206) ALKALINE PHOSPHATASE (test 59 U/L code = 2204) AST (test code = 2218) 26 U/L ALT (test code = 2219) 20 U/L COMPREHENSIVE METABOLIC [id number] 00:00:00 Test Item Value Reference Range Interpretation Comments GLUCOSE (test code = 2217) 103 MG/DL BUN (test code = 2208) 13 MG/DL CREATININE (test code = 2214) 0.83 MG/DL eGFR AMER. (test code 88 ML/MIN/1.73 = 91359) eGFR NON- AMER. (test 76 ML/MIN/1.73 code = 40024) CALC BUN/CREAT (test code = 16 RATIO 2235) SODIUM (test code = 2231) 141 MEQ/L POTASSIUM (test code = 2228) 4.7 MEQ/L CHLORIDE (test code = 2215) 98 MEQ/L CARBON DIOXIDE (test code = 26 MEQ/L 2205) CALCIUM (test code = 2209) 9.9 MG/DL PROTEIN, TOTAL (test code = 7.1 G/DL 2228) ALBUMIN (test code = 2201) 4.8 G/DL CALC GLOBULIN (test code = 2.3 G/DL 2240) CALC A/G RATIO (test code = 2.1 RATIO 2234) BILIRUBIN, TOTAL (test code = 0.4 MG/DL 2206) ALKALINE PHOSPHATASE (test 59 U/L code = 2204) AST (test code = 2218) 26 U/L ALT (test code = 2219) 20 U/L HEMOGLOBIN [id number] 00:00:00 Test Item Value Reference Range Interpretation Comments HEMOGLOBIN A1c (test code = 93941) 5.9 % HEMOGLOBIN [id number] 00:00:00 Test Item Value Reference Range Interpretation Comments HEMOGLOBIN A1c (test code = 28933) 5.9 % HEMOGLOBIN [id number] 00:00:00 Test Item Value Reference Range Interpretation Comments HEMOGLOBIN A1c (test code = 80598) 5.9 % LIPID [id number] 00:00:00 Test Item Value Reference Range Interpretation Comments CHOLESTEROL (test code = 2210) 138 MG/DL TRIGLYCERIDES (test code = 2232) 158 MG/DL HDL CHOLESTEROL (test code = 2220) 43 MG/DL CALC LDL CHOL (test code = 2237) 63 MG/DL RISK RATIO LDL/HDL (test code = 1.47 RATIO 2238) LIPID [id number] 00:00:00 Test Item Value Reference Range Interpretation Comments CHOLESTEROL (test code = 2210) 138 MG/DL TRIGLYCERIDES (test code = 2232) 158 MG/DL HDL CHOLESTEROL (test code = 2220) 43 MG/DL CALC LDL CHOL (test code = 2237) 63 MG/DL RISK RATIO LDL/HDL (test code = 1.47 RATIO 2238) COMPREHENSIVE METABOLIC [id number] 00:00:00 Test Item Value Reference Range Interpretation Comments GLUCOSE (test code = 2217) 103 MG/DL BUN (test code = 2208) 13 MG/DL CREATININE (test code = 2214) 0.83 MG/DL eGFR AMER. (test code 88 ML/MIN/1.73 = 51760) eGFR NON- AMER. (test 76 ML/MIN/1.73 code = 73845) CALC BUN/CREAT (test code = 16 RATIO 2235) SODIUM (test code = 2231) 141 MEQ/L POTASSIUM (test code = 2228) 4.7 MEQ/L CHLORIDE (test code = 2215) 98 MEQ/L CARBON DIOXIDE (test code = 26 MEQ/L 2205) CALCIUM (test code = 2209) 9.9 MG/DL PROTEIN, TOTAL (test code = 7.1 G/DL 2228) ALBUMIN (test code = 2201) 4.8 G/DL CALC GLOBULIN (test code = 2.3 G/DL 2239) CALC A/G RATIO (test code = 2.1 RATIO 2234) BILIRUBIN, TOTAL (test code = 0.4 MG/DL 2206) ALKALINE PHOSPHATASE (test 59 U/L code = 2204) AST (test code = 2218) 26 U/L ALT (test code = 2219) 20 U/L COMPREHENSIVE METABOLIC [id number] 00:00:00 Test Item Value Reference Range Interpretation Comments GLUCOSE (test code = 2217) 103 MG/DL BUN (test code = 2208) 13 MG/DL CREATININE (test code = 2214) 0.83 MG/DL eGFR AMER. (test code 88 ML/MIN/1.73 = 25558) eGFR NON- AMER. (test 76 ML/MIN/1.73 code = 55962) CALC BUN/CREAT (test code = 16 RATIO 2235) SODIUM (test code = 2231) 141 MEQ/L POTASSIUM (test code = 2228) 4.7 MEQ/L CHLORIDE (test code = 2215) 98 MEQ/L CARBON DIOXIDE (test code = 26 MEQ/L 2205) CALCIUM (test code = 2209) 9.9 MG/DL PROTEIN, TOTAL (test code = 7.1 G/DL 2228) ALBUMIN (test code = 2201) 4.8 G/DL CALC GLOBULIN (test code = 2.3 G/DL 0) CALC A/G RATIO (test code = 2.1 RATIO 4) BILIRUBIN, TOTAL (test code = 0.4 MG/DL 2206) ALKALINE PHOSPHATASE (test 59 U/L code = 2204) AST (test code = 2218) 26 U/L ALT (test code = 2219) 20 U/L HEMOGLOBIN [id number] 00:00:00 Test Item Value Reference Range Interpretation Comments HEMOGLOBIN A1c (test code = 31576) 5.9 % HEMOGLOBIN [id number] 00:00:00 Test Item Value Reference Range Interpretation Comments HEMOGLOBIN A1c (test code = 04209) 5.9 % HEMOGLOBIN [id number] 00:00:00 Test Item Value Reference Range Interpretation Comments HEMOGLOBIN A1c (test code = 77504) 5.9 % LIPID [id number] 00:00:00 Test Item Value Reference Range Interpretation Comments CHOLESTEROL (test code = 2210) 138 MG/DL TRIGLYCERIDES (test code = 2232) 158 MG/DL HDL CHOLESTEROL (test code = 2220) 43 MG/DL CALC LDL CHOL (test code = 2237) 63 MG/DL RISK RATIO LDL/HDL (test code = 1.47 RATIO 2238) LIPID [id number] 00:00:00 Test Item Value Reference Range Interpretation Comments CHOLESTEROL (test code = 2210) 138 MG/DL TRIGLYCERIDES (test code = 2232) 158 MG/DL HDL CHOLESTEROL (test code = 2220) 43 MG/DL CALC LDL CHOL (test code = 2237) 63 MG/DL RISK RATIO LDL/HDL (test code = 1.47 RATIO 2238) COMPREHENSIVE METABOLIC [id number] 00:00:00 Test Item Value Reference Range Interpretation Comments GLUCOSE (test code = 2217) 103 MG/DL BUN (test code = 2208) 13 MG/DL CREATININE (test code = 2214) 0.83 MG/DL eGFR AMER. (test code 88 ML/MIN/1.73 = 22457) eGFR NON- AMER. (test 76 ML/MIN/1.73 code = 33308) CALC BUN/CREAT (test code = 16 RATIO 2235) SODIUM (test code = 2231) 141 MEQ/L POTASSIUM (test code = 2228) 4.7 MEQ/L CHLORIDE (test code = 2215) 98 MEQ/L CARBON DIOXIDE (test code = 26 MEQ/L 2205) CALCIUM (test code = 2209) 9.9 MG/DL PROTEIN, TOTAL (test code = 7.1 G/DL 2228) ALBUMIN (test code = 2201) 4.8 G/DL CALC GLOBULIN (test code = 2.3 G/DL 2240) CALC A/G RATIO (test code = 2.1 RATIO 2234) BILIRUBIN, TOTAL (test code = 0.4 MG/DL 2206) ALKALINE PHOSPHATASE (test 59 U/L code = 2204) AST (test code = 2218) 26 U/L ALT (test code = 2219) 20 U/L COMPREHENSIVE METABOLIC [id number] 00:00:00 Test Item Value Reference Range Interpretation Comments GLUCOSE (test code = 2217) 103 MG/DL BUN (test code = 2208) 13 MG/DL CREATININE (test code = 2214) 0.83 MG/DL eGFR AMER. (test code 88 ML/MIN/1.73 = 04932) eGFR NON- AMER. (test 76 ML/MIN/1.73 code = 14623) CALC BUN/CREAT (test code = 16 RATIO 2235) SODIUM (test code = 2231) 141 MEQ/L POTASSIUM (test code = 2228) 4.7 MEQ/L CHLORIDE (test code = 2215) 98 MEQ/L CARBON DIOXIDE (test code = 26 MEQ/L 2205) CALCIUM (test code = 2209) 9.9 MG/DL PROTEIN, TOTAL (test code = 7.1 G/DL 2228) ALBUMIN (test code = 2201) 4.8 G/DL CALC GLOBULIN (test code = 2.3 G/DL 2239) CALC A/G RATIO (test code = 2.1 RATIO 2233) BILIRUBIN, TOTAL (test code = 0.4 MG/DL 2206) ALKALINE PHOSPHATASE (test 59 U/L code = 2204) AST (test code = 2218) 26 U/L ALT (test code = 2219) 20 U/L HEMOGLOBIN [id number] 00:00:00 Test Item Value Reference Range Interpretation Comments HEMOGLOBIN A1c (test code = 64214) 5.9 % HEMOGLOBIN [id number] 00:00:00 Test Item Value Reference Range Interpretation Comments HEMOGLOBIN A1c (test code = 28112) 5.9 % HEMOGLOBIN [id number] 00:00:00 Test Item Value Reference Range Interpretation Comments HEMOGLOBIN A1c (test code = 37854) 5.9 % LIPID [id number] 00:00:00 Test Item Value Reference Range Interpretation Comments CHOLESTEROL (test code = 2210) 138 MG/DL TRIGLYCERIDES (test code = 2232) 158 MG/DL HDL CHOLESTEROL (test code = 2220) 43 MG/DL CALC LDL CHOL (test code = 2237) 63 MG/DL RISK RATIO LDL/HDL (test code = 1.47 RATIO 2238) LIPID [id number] 00:00:00 Test Item Value Reference Range Interpretation Comments CHOLESTEROL (test code = 2210) 138 MG/DL TRIGLYCERIDES (test code = 2232) 158 MG/DL HDL CHOLESTEROL (test code = 2220) 43 MG/DL CALC LDL CHOL (test code = 2237) 63 MG/DL RISK RATIO LDL/HDL (test code = 1.47 RATIO 2238) COMPREHENSIVE METABOLIC [id number] 00:00:00 Test Item Value Reference Range Interpretation Comments GLUCOSE (test code = 2217) 103 MG/DL BUN (test code = 2208) 13 MG/DL CREATININE (test code = 2214) 0.83 MG/DL eGFR AMER. (test code 88 ML/MIN/1.73 = 49262) eGFR NON- AMER. (test 76 ML/MIN/1.73 code = 16843) CALC BUN/CREAT (test code = 16 RATIO 2235) SODIUM (test code = 2231) 141 MEQ/L POTASSIUM (test code = 2228) 4.7 MEQ/L CHLORIDE (test code = 2215) 98 MEQ/L CARBON DIOXIDE (test code = 26 MEQ/L 2205) CALCIUM (test code = 2209) 9.9 MG/DL PROTEIN, TOTAL (test code = 7.1 G/DL 2228) ALBUMIN (test code = 2201) 4.8 G/DL CALC GLOBULIN (test code = 2.3 G/DL 2240) CALC A/G RATIO (test code = 2.1 RATIO 2234) BILIRUBIN, TOTAL (test code = 0.4 MG/DL 2206) ALKALINE PHOSPHATASE (test 59 U/L code = 2204) AST (test code = 2218) 26 U/L ALT (test code = 2219) 20 U/L COMPREHENSIVE METABOLIC [id number] 00:00:00 Test Item Value Reference Range Interpretation Comments GLUCOSE (test code = 2217) 103 MG/DL BUN (test code = 2208) 13 MG/DL CREATININE (test code = 2214) 0.83 MG/DL eGFR AMER. (test code 88 ML/MIN/1.73 = 18525) eGFR NON- AMER. (test 76 ML/MIN/1.73 code = 58618) CALC BUN/CREAT (test code = 16 RATIO 2235) SODIUM (test code = 2231) 141 MEQ/L POTASSIUM (test code = 2228) 4.7 MEQ/L CHLORIDE (test code = 2215) 98 MEQ/L CARBON DIOXIDE (test code = 26 MEQ/L 2206) CALCIUM (test code = 2209) 9.9 MG/DL PROTEIN, TOTAL (test code = 7.1 G/DL 2228) ALBUMIN (test code = 2201) 4.8 G/DL CALC GLOBULIN (test code = 2.3 G/DL 2240) CALC A/G RATIO (test code = 2.1 RATIO 2234) BILIRUBIN, TOTAL (test code = 0.4 MG/DL 2206) ALKALINE PHOSPHATASE (test 59 U/L code = 2204) AST (test code = 2218) 26 U/L ALT (test code = 2219) 20 U/L HEMOGLOBIN [id number] 00:00:00 Test Item Value Reference Range Interpretation Comments HEMOGLOBIN A1c (test code = 75931) 5.9 % HEMOGLOBIN [id number] 00:00:00 Test Item Value Reference Range Interpretation Comments HEMOGLOBIN A1c (test code = 43802) 5.9 % HEMOGLOBIN [id number] 00:00:00 Test Item Value Reference Range Interpretation Comments HEMOGLOBIN A1c (test code = 40687) 5.9 % LIPID [id number] 00:00:00 Test Item Value Reference Range Interpretation Comments CHOLESTEROL (test code = 2210) 138 MG/DL TRIGLYCERIDES (test code = 2232) 158 MG/DL HDL CHOLESTEROL (test code = 2220) 43 MG/DL CALC LDL CHOL (test code = 2237) 63 MG/DL RISK RATIO LDL/HDL (test code = 1.47 RATIO 2238) LIPID [id number] 00:00:00 Test Item Value Reference Range Interpretation Comments CHOLESTEROL (test code = 2210) 138 MG/DL TRIGLYCERIDES (test code = 2232) 158 MG/DL HDL CHOLESTEROL (test code = 2220) 43 MG/DL CALC LDL CHOL (test code = 2237) 63 MG/DL RISK RATIO LDL/HDL (test code = 1.47 RATIO 2238) HEMOGLOBIN [id number] 00:00:00 Test Item Value Reference Range Interpretation Comments HEMOGLOBIN A1c (test code = 69848) 6.2 % HEMOGLOBIN [id number] 00:00:00 Test Item Value Reference Range Interpretation Comments HEMOGLOBIN A1c (test code = 12543) 6.2 % HEMOGLOBIN [id number] 00:00:00 Test Item Value Reference Range Interpretation Comments HEMOGLOBIN A1c (test code = 94279) 6.2 % HEMOGLOBIN [id number] 00:00:00 Test Item Value Reference Range Interpretation Comments HEMOGLOBIN A1c (test code = 49501) 6.2 % HEMOGLOBIN [id number] 00:00:00 Test Item Value Reference Range Interpretation Comments HEMOGLOBIN A1c (test code = 96617) 6.2 % HEMOGLOBIN [id number] 00:00:00 Test Item Value Reference Range Interpretation Comments HEMOGLOBIN A1c (test code = 49654) 6.2 % HEMOGLOBIN [id number] 00:00:00 Test Item Value Reference Range Interpretation Comments HEMOGLOBIN A1c (test code = 49292) 6.2 % HEMOGLOBIN [id number] 00:00:00 Test Item Value Reference Range Interpretation Comments HEMOGLOBIN A1c (test code = 66403) 6.2 % HEMOGLOBIN [id number] 00:00:00 Test Item Value Reference Range Interpretation Comments HEMOGLOBIN A1c (test code = 43847) 6.2 % HEMOGLOBIN [id number] 00:00:00 Test Item Value Reference Range Interpretation Comments HEMOGLOBIN A1c (test code = 24493) 6.2 % HEMOGLOBIN [id number] 00:00:00 Test Item Value Reference Range Interpretation Comments HEMOGLOBIN A1c (test code = 15325) 6.2 % HEMOGLOBIN [id number] 00:00:00 Test Item Value Reference Range Interpretation Comments HEMOGLOBIN A1c (test code = 34702) 6.2 % [id number] 00:00:00 Test Item Value Reference Range Interpretation Comments POTASSIUM (test code = 2228) 4.9 MEQ/L [id number] 00:00:00 Test Item Value Reference Range Interpretation Comments POTASSIUM (test code = 2228) 4.9 MEQ/L [id number] 00:00:00 Test Item Value Reference Range Interpretation Comments POTASSIUM (test code = 2228) 4.9 MEQ/L [id number] 00:00:00 Test Item Value Reference Range Interpretation Comments POTASSIUM (test code = 2228) 4.9 MEQ/L [id number] 00:00:00 Test Item Value Reference Range Interpretation Comments POTASSIUM (test code = 2228) 4.9 MEQ/L [id number] 00:00:00 Test Item Value Reference Range Interpretation Comments POTASSIUM (test code = 2228) 4.9 MEQ/L [id number] 00:00:00 Test Item Value Reference Range Interpretation Comments POTASSIUM (test code = 2228) 4.9 MEQ/L [id number] 00:00:00 Test Item Value Reference Range Interpretation Comments POTASSIUM (test code = 2228) 4.9 MEQ/L HEMOGLOBIN [id number] 00:00:00 Test Item Value Reference Range Interpretation Comments HEMOGLOBIN A1c (test code = 82107) 6.8 % HEMOGLOBIN [id number] 00:00:00 Test Item Value Reference Range Interpretation Comments HEMOGLOBIN A1c (test code = 13287) 6.8 % HEMOGLOBIN [id number] 00:00:00 Test Item Value Reference Range Interpretation Comments HEMOGLOBIN A1c (test code = 79527) 6.8 % COMPREHENSIVE METABOLIC [id number] 00:00:00 Test Item Value Reference Range Interpretation Comments GLUCOSE (test code = 2217) 108 MG/DL BUN (test code = 2208) 13 MG/DL CREATININE (test code = 2214) 0.75 MG/DL eGFR AMER. (test code 99 ML/MIN/1.73 = 03727) eGFR NON- AMER. (test 85 ML/MIN/1.73 code = 49313) CALC BUN/CREAT (test code = 17 RATIO 2235) SODIUM (test code = 2231) 140 MEQ/L POTASSIUM (test code = 2228) 6.0 MEQ/L CHLORIDE (test code = 2215) 103 MEQ/L CARBON DIOXIDE (test code = 26 MEQ/L 2205) CALCIUM (test code = 2209) 9.7 MG/DL PROTEIN, TOTAL (test code = 7.1 G/DL 2228) ALBUMIN (test code = 2201) 4.6 G/DL CALC GLOBULIN (test code = 2.5 G/DL 2240) CALC A/G RATIO (test code = 1.8 RATIO 2234) BILIRUBIN, TOTAL (test code = 0.5 MG/DL 2206) ALKALINE PHOSPHATASE (test 74 U/L code = 2204) AST (test code = 2218) 33 U/L ALT (test code = 2219) 22 U/L COMPREHENSIVE METABOLIC [id number] 00:00:00 Test Item Value Reference Range Interpretation Comments GLUCOSE (test code = 2217) 108 MG/DL BUN (test code = 2208) 13 MG/DL CREATININE (test code = 2214) 0.75 MG/DL eGFR AMER. (test code 99 ML/MIN/1.73 = 70846) eGFR NON- AMER. (test 85 ML/MIN/1.73 code = 51525) CALC BUN/CREAT (test code = 17 RATIO 2235) SODIUM (test code = 2231) 140 MEQ/L POTASSIUM (test code = 2228) 6.0 MEQ/L CHLORIDE (test code = 2215) 103 MEQ/L CARBON DIOXIDE (test code = 26 MEQ/L 2205) CALCIUM (test code = 2209) 9.7 MG/DL PROTEIN, TOTAL (test code = 7.1 G/DL 2228) ALBUMIN (test code = 2201) 4.6 G/DL CALC GLOBULIN (test code = 2.5 G/DL 2239) CALC A/G RATIO (test code = 1.8 RATIO 2233) BILIRUBIN, TOTAL (test code = 0.5 MG/DL 2206) ALKALINE PHOSPHATASE (test 74 U/L code = 2204) AST (test code = 2218) 33 U/L ALT (test code = 2219) 22 U/L HEMOGLOBIN [id number] 00:00:00 Test Item Value Reference Range Interpretation Comments HEMOGLOBIN A1c (test code = 21775) 6.8 % HEMOGLOBIN [id number] 00:00:00 Test Item Value Reference Range Interpretation Comments HEMOGLOBIN A1c (test code = 60694) 6.8 % HEMOGLOBIN [id number] 00:00:00 Test Item Value Reference Range Interpretation Comments HEMOGLOBIN A1c (test code = 99291) 6.8 % COMPREHENSIVE METABOLIC [id number] 00:00:00 Test Item Value Reference Range Interpretation Comments GLUCOSE (test code = 2217) 108 MG/DL BUN (test code = 2208) 13 MG/DL CREATININE (test code = 2214) 0.75 MG/DL eGFR AMER. (test code 99 ML/MIN/1.73 = 82929) eGFR NON- AMER. (test 85 ML/MIN/1.73 code = 52611) CALC BUN/CREAT (test code = 17 RATIO 2235) SODIUM (test code = 2231) 140 MEQ/L POTASSIUM (test code = 2228) 6.0 MEQ/L CHLORIDE (test code = 2215) 103 MEQ/L CARBON DIOXIDE (test code = 26 MEQ/L 2205) CALCIUM (test code = 2209) 9.7 MG/DL PROTEIN, TOTAL (test code = 7.1 G/DL 2228) ALBUMIN (test code = 2201) 4.6 G/DL CALC GLOBULIN (test code = 2.5 G/DL 2240) CALC A/G RATIO (test code = 1.8 RATIO 2234) BILIRUBIN, TOTAL (test code = 0.5 MG/DL 2207) ALKALINE PHOSPHATASE (test 74 U/L code = 2204) AST (test code = 2218) 33 U/L ALT (test code = 2219) 22 U/L COMPREHENSIVE METABOLIC [id number] 00:00:00 Test Item Value Reference Range Interpretation Comments GLUCOSE (test code = 2217) 108 MG/DL BUN (test code = 2208) 13 MG/DL CREATININE (test code = 2214) 0.75 MG/DL eGFR AMER. (test code 99 ML/MIN/1.73 = 63866) eGFR NON- AMER. (test 85 ML/MIN/1.73 code = 01469) CALC BUN/CREAT (test code = 17 RATIO 2235) SODIUM (test code = 2231) 140 MEQ/L POTASSIUM (test code = 2228) 6.0 MEQ/L CHLORIDE (test code = 2215) 103 MEQ/L CARBON DIOXIDE (test code = 26 MEQ/L 6) CALCIUM (test code = 2209) 9.7 MG/DL PROTEIN, TOTAL (test code = 7.1 G/DL 2228) ALBUMIN (test code = 2201) 4.6 G/DL CALC GLOBULIN (test code = 2.5 G/DL 2240) CALC A/G RATIO (test code = 1.8 RATIO 2234) BILIRUBIN, TOTAL (test code = 0.5 MG/DL 220) ALKALINE PHOSPHATASE (test 74 U/L code = 2204) AST (test code = 2218) 33 U/L ALT (test code = 2219) 22 U/L HEMOGLOBIN [id number] 00:00:00 Test Item Value Reference Range Interpretation Comments HEMOGLOBIN A1c (test code = 16388) 6.8 % HEMOGLOBIN [id number] 00:00:00 Test Item Value Reference Range Interpretation Comments HEMOGLOBIN A1c (test code = 91383) 6.8 % HEMOGLOBIN [id number] 00:00:00 Test Item Value Reference Range Interpretation Comments HEMOGLOBIN A1c (test code = 78083) 6.8 % COMPREHENSIVE METABOLIC [id number] 00:00:00 Test Item Value Reference Range Interpretation Comments GLUCOSE (test code = 2217) 108 MG/DL BUN (test code = 2208) 13 MG/DL CREATININE (test code = 2214) 0.75 MG/DL eGFR AMER. (test code 99 ML/MIN/1.73 = 66327) eGFR NON- AMER. (test 85 ML/MIN/1.73 code = 69482) CALC BUN/CREAT (test code = 17 RATIO 2235) SODIUM (test code = 2231) 140 MEQ/L POTASSIUM (test code = 2228) 6.0 MEQ/L CHLORIDE (test code = 2215) 103 MEQ/L CARBON DIOXIDE (test code = 26 MEQ/L 2205) CALCIUM (test code = 2209) 9.7 MG/DL PROTEIN, TOTAL (test code = 7.1 G/DL 2228) ALBUMIN (test code = 2201) 4.6 G/DL CALC GLOBULIN (test code = 2.5 G/DL 2240) CALC A/G RATIO (test code = 1.8 RATIO 2234) BILIRUBIN, TOTAL (test code = 0.5 MG/DL 2206) ALKALINE PHOSPHATASE (test 74 U/L code = 2204) AST (test code = 2218) 33 U/L ALT (test code = 2219) 22 U/L COMPREHENSIVE METABOLIC [id number] 00:00:00 Test Item Value Reference Range Interpretation Comments GLUCOSE (test code = 2217) 108 MG/DL BUN (test code = 2208) 13 MG/DL CREATININE (test code = 2214) 0.75 MG/DL eGFR AMER. (test code 99 ML/MIN/1.73 = 23029) eGFR NON- AMER. (test 85 ML/MIN/1.73 code = 60098) CALC BUN/CREAT (test code = 17 RATIO 2235) SODIUM (test code = 2231) 140 MEQ/L POTASSIUM (test code = 2228) 6.0 MEQ/L CHLORIDE (test code = 2215) 103 MEQ/L CARBON DIOXIDE (test code = 26 MEQ/L 2205) CALCIUM (test code = 2209) 9.7 MG/DL PROTEIN, TOTAL (test code = 7.1 G/DL 2228) ALBUMIN (test code = 2201) 4.6 G/DL CALC GLOBULIN (test code = 2.5 G/DL 2240) CALC A/G RATIO (test code = 1.8 RATIO 2234) BILIRUBIN, TOTAL (test code = 0.5 MG/DL 2206) ALKALINE PHOSPHATASE (test 74 U/L code = 2204) AST (test code = 2218) 33 U/L ALT (test code = 2219) 22 U/L HEMOGLOBIN [id number] 00:00:00 Test Item Value Reference Range Interpretation Comments HEMOGLOBIN A1c (test code = 47959) 6.8 % HEMOGLOBIN [id number] 00:00:00 Test Item Value Reference Range Interpretation Comments HEMOGLOBIN A1c (test code = 43040) 6.8 % HEMOGLOBIN [id number] 00:00:00 Test Item Value Reference Range Interpretation Comments HEMOGLOBIN A1c (test code = 87122) 6.8 % COMPREHENSIVE METABOLIC [id number] 00:00:00 Test Item Value Reference Range Interpretation Comments GLUCOSE (test code = 2217) 108 MG/DL BUN (test code = 2208) 13 MG/DL CREATININE (test code = 2214) 0.75 MG/DL eGFR AMER. (test code 99 ML/MIN/1.73 = 93674) eGFR NON- AMER. (test 85 ML/MIN/1.73 code = 51687) CALC BUN/CREAT (test code = 17 RATIO 2235) SODIUM (test code = 2231) 140 MEQ/L POTASSIUM (test code = 2228) 6.0 MEQ/L CHLORIDE (test code = 2215) 103 MEQ/L CARBON DIOXIDE (test code = 26 MEQ/L 6) CALCIUM (test code = 2209) 9.7 MG/DL PROTEIN, TOTAL (test code = 7.1 G/DL 2228) ALBUMIN (test code = 2201) 4.6 G/DL CALC GLOBULIN (test code = 2.5 G/DL 0) CALC A/G RATIO (test code = 1.8 RATIO 2234) BILIRUBIN, TOTAL (test code = 0.5 MG/DL 2206) ALKALINE PHOSPHATASE (test 74 U/L code = 2204) AST (test code = 2218) 33 U/L ALT (test code = 2219) 22 U/L COMPREHENSIVE METABOLIC [id number] 00:00:00 Test Item Value Reference Range Interpretation Comments GLUCOSE (test code = 2217) 108 MG/DL BUN (test code = 2208) 13 MG/DL CREATININE (test code = 2214) 0.75 MG/DL eGFR AMER. (test code 99 ML/MIN/1.73 = 85051) eGFR NON- AMER. (test 85 ML/MIN/1.73 code = 01024) CALC BUN/CREAT (test code = 17 RATIO 2235) SODIUM (test code = 2231) 140 MEQ/L POTASSIUM (test code = 2228) 6.0 MEQ/L CHLORIDE (test code = 2215) 103 MEQ/L CARBON DIOXIDE (test code = 26 MEQ/L 220) CALCIUM (test code = 2209) 9.7 MG/DL PROTEIN, TOTAL (test code = 7.1 G/DL 2228) ALBUMIN (test code = 2201) 4.6 G/DL CALC GLOBULIN (test code = 2.5 G/DL 2240) CALC A/G RATIO (test code = 1.8 RATIO 2234) BILIRUBIN, TOTAL (test code = 0.5 MG/DL 2206) ALKALINE PHOSPHATASE (test 74 U/L code = 2204) AST (test code = 2218) 33 U/L ALT (test code = 2219) 22 U/L COMPREHENSIVE METABOLIC PANEL [ADDED]2018-01-05 00:00:00 Test Item Value Reference Range Interpretation Comments GLUCOSE (test code = 2217) 133 MG/DL BUN (test code = 2208) 12 MG/DL CREATININE (test code = 2214) 0.79 MG/DL eGFR AMER. (test code 93 ML/MIN/1.73 = 15217) eGFR NON- AMER. (test 80 ML/MIN/1.73 code = 19435) CALC BUN/CREAT (test code = 15 RATIO 2235) SODIUM (test code = 2231) 139 MEQ/L POTASSIUM (test code = 2228) 5.3 MEQ/L CHLORIDE (test code = 2215) 102 MEQ/L CARBON DIOXIDE (test code = 23 MEQ/L 220) CALCIUM (test code = 2209) 9.6 MG/DL PROTEIN, TOTAL (test code = 7.3 G/DL 2228) ALBUMIN (test code = 2201) 4.6 G/DL CALC GLOBULIN (test code = 2.7 G/DL 2240) CALC A/G RATIO (test code = 1.7 RATIO 2234) BILIRUBIN, TOTAL (test code = 0.4 MG/DL 2206) ALKALINE PHOSPHATASE (test 79 U/L code = 2204) AST (test code = 2218) 36 U/L ALT (test code = 2219) 43 U/L COMPREHENSIVE METABOLIC PANEL [ADDED]2018-01-05 00:00:00 Test Item Value Reference Range Interpretation Comments GLUCOSE (test code = 2217) 133 MG/DL BUN (test code = 2208) 12 MG/DL CREATININE (test code = 2214) 0.79 MG/DL eGFR AMER. (test code 93 ML/MIN/1.73 = 66381) eGFR NON- AMER. (test 80 ML/MIN/1.73 code = 07168) CALC BUN/CREAT (test code = 15 RATIO 2235) SODIUM (test code = 2231) 139 MEQ/L POTASSIUM (test code = 2228) 5.3 MEQ/L CHLORIDE (test code = 2215) 102 MEQ/L CARBON DIOXIDE (test code = 23 MEQ/L 2205) CALCIUM (test code = 2209) 9.6 MG/DL PROTEIN, TOTAL (test code = 7.3 G/DL 2228) ALBUMIN (test code = 2201) 4.6 G/DL CALC GLOBULIN (test code = 2.7 G/DL 2240) CALC A/G RATIO (test code = 1.7 RATIO 2234) BILIRUBIN, TOTAL (test code = 0.4 MG/DL 2206) ALKALINE PHOSPHATASE (test 79 U/L code = 2204) AST (test code = 2218) 36 U/L ALT (test code = 2219) 43 U/L HEMOGLOBIN A1c [ADDED]2018-01-05 00:00:00 Test Item Value Reference Range Interpretation Comments HEMOGLOBIN A1c (test code = 37790) 7.3 % HEMOGLOBIN A1c [ADDED]2018-01-05 00:00:00 Test Item Value Reference Range Interpretation Comments HEMOGLOBIN A1c (test code = 99786) 7.3 % HEMOGLOBIN A1c [ADDED]2018-01-05 00:00:00 Test Item Value Reference Range Interpretation Comments HEMOGLOBIN A1c (test code = 99215) 7.3 % LIPID PANEL [ADDED]2018-01-05 00:00:00 Test Item Value Reference Range Interpretation Comments CHOLESTEROL (test code = 2210) 182 MG/DL TRIGLYCERIDES (test code = 2232) 181 MG/DL HDL CHOLESTEROL (test code = 2220) 47 MG/DL CALC LDL CHOL (test code = 2237) 99 MG/DL RISK RATIO LDL/HDL (test code = 2.10 RATIO 2238) LIPID PANEL [ADDED]2018-01-05 00:00:00 Test Item Value Reference Range Interpretation Comments CHOLESTEROL (test code = 2210) 182 MG/DL TRIGLYCERIDES (test code = 2232) 181 MG/DL HDL CHOLESTEROL (test code = 2220) 47 MG/DL CALC LDL CHOL (test code = 2237) 99 MG/DL RISK RATIO LDL/HDL (test code = 2.10 RATIO 2238) COMPREHENSIVE METABOLIC PANEL [ADDED]2018-01-05 00:00:00 Test Item Value Reference Range Interpretation Comments GLUCOSE (test code = 2217) 133 MG/DL BUN (test code = 2208) 12 MG/DL CREATININE (test code = 2214) 0.79 MG/DL eGFR AMER. (test code 93 ML/MIN/1.73 = 11187) eGFR NON- AMER. (test 80 ML/MIN/1.73 code = 86787) CALC BUN/CREAT (test code = 15 RATIO 2235) SODIUM (test code = 2231) 139 MEQ/L POTASSIUM (test code = 2228) 5.3 MEQ/L CHLORIDE (test code = 2215) 102 MEQ/L CARBON DIOXIDE (test code = 23 MEQ/L 220) CALCIUM (test code = 2209) 9.6 MG/DL PROTEIN, TOTAL (test code = 7.3 G/DL 2228) ALBUMIN (test code = 2201) 4.6 G/DL CALC GLOBULIN (test code = 2.7 G/DL 2240) CALC A/G RATIO (test code = 1.7 RATIO 2234) BILIRUBIN, TOTAL (test code = 0.4 MG/DL 2206) ALKALINE PHOSPHATASE (test 79 U/L code = 2204) AST (test code = 2218) 36 U/L ALT (test code = 2219) 43 U/L COMPREHENSIVE METABOLIC PANEL [ADDED]2018-01-05 00:00:00 Test Item Value Reference Range Interpretation Comments GLUCOSE (test code = 2217) 133 MG/DL BUN (test code = 2208) 12 MG/DL CREATININE (test code = 2214) 0.79 MG/DL eGFR AMER. (test code 93 ML/MIN/1.73 = 77847) eGFR NON- AMER. (test 80 ML/MIN/1.73 code = 90567) CALC BUN/CREAT (test code = 15 RATIO 2235) SODIUM (test code = 2231) 139 MEQ/L POTASSIUM (test code = 2228) 5.3 MEQ/L CHLORIDE (test code = 2215) 102 MEQ/L CARBON DIOXIDE (test code = 23 MEQ/L 220) CALCIUM (test code = 2209) 9.6 MG/DL PROTEIN, TOTAL (test code = 7.3 G/DL 2228) ALBUMIN (test code = 2201) 4.6 G/DL CALC GLOBULIN (test code = 2.7 G/DL 224) CALC A/G RATIO (test code = 1.7 RATIO 2234) BILIRUBIN, TOTAL (test code = 0.4 MG/DL 2206) ALKALINE PHOSPHATASE (test 79 U/L code = 2204) AST (test code = 2218) 36 U/L ALT (test code = 2219) 43 U/L HEMOGLOBIN A1c [ADDED]2018-01-05 00:00:00 Test Item Value Reference Range Interpretation Comments HEMOGLOBIN A1c (test code = 99394) 7.3 % HEMOGLOBIN A1c [ADDED]2018-01-05 00:00:00 Test Item Value Reference Range Interpretation Comments HEMOGLOBIN A1c (test code = 14343) 7.3 % HEMOGLOBIN A1c [ADDED]2018-01-05 00:00:00 Test Item Value Reference Range Interpretation Comments HEMOGLOBIN A1c (test code = 65610) 7.3 % LIPID PANEL [ADDED]2018-01-05 00:00:00 Test Item Value Reference Range Interpretation Comments CHOLESTEROL (test code = 2210) 182 MG/DL TRIGLYCERIDES (test code = 2232) 181 MG/DL HDL CHOLESTEROL (test code = 2220) 47 MG/DL CALC LDL CHOL (test code = 2237) 99 MG/DL RISK RATIO LDL/HDL (test code = 2.10 RATIO 2238) LIPID PANEL [ADDED]2018-01-05 00:00:00 Test Item Value Reference Range Interpretation Comments CHOLESTEROL (test code = 2210) 182 MG/DL TRIGLYCERIDES (test code = 2232) 181 MG/DL HDL CHOLESTEROL (test code = 2220) 47 MG/DL CALC LDL CHOL (test code = 2237) 99 MG/DL RISK RATIO LDL/HDL (test code = 2.10 RATIO 2238) COMPREHENSIVE METABOLIC PANEL [ADDED]2018-01-05 00:00:00 Test Item Value Reference Range Interpretation Comments GLUCOSE (test code = 2217) 133 MG/DL BUN (test code = 2208) 12 MG/DL CREATININE (test code = 2214) 0.79 MG/DL eGFR AMER. (test code 93 ML/MIN/1.73 = 09237) eGFR NON- AMER. (test 80 ML/MIN/1.73 code = 92767) CALC BUN/CREAT (test code = 15 RATIO 2235) SODIUM (test code = 2231) 139 MEQ/L POTASSIUM (test code = 2228) 5.3 MEQ/L CHLORIDE (test code = 2215) 102 MEQ/L CARBON DIOXIDE (test code = 23 MEQ/L 220) CALCIUM (test code = 2209) 9.6 MG/DL PROTEIN, TOTAL (test code = 7.3 G/DL 2228) ALBUMIN (test code = 2201) 4.6 G/DL CALC GLOBULIN (test code = 2.7 G/DL 2240) CALC A/G RATIO (test code = 1.7 RATIO 2234) BILIRUBIN, TOTAL (test code = 0.4 MG/DL 2206) ALKALINE PHOSPHATASE (test 79 U/L code = 2204) AST (test code = 2218) 36 U/L ALT (test code = 2219) 43 U/L COMPREHENSIVE METABOLIC PANEL [ADDED]2018-01-05 00:00:00 Test Item Value Reference Range Interpretation Comments GLUCOSE (test code = 2217) 133 MG/DL BUN (test code = 2208) 12 MG/DL CREATININE (test code = 2214) 0.79 MG/DL eGFR AMER. (test code 93 ML/MIN/1.73 = 37773) eGFR NON- AMER. (test 80 ML/MIN/1.73 code = 86272) CALC BUN/CREAT (test code = 15 RATIO 2235) SODIUM (test code = 2231) 139 MEQ/L POTASSIUM (test code = 2228) 5.3 MEQ/L CHLORIDE (test code = 2215) 102 MEQ/L CARBON DIOXIDE (test code = 23 MEQ/L 2206) CALCIUM (test code = 2209) 9.6 MG/DL PROTEIN, TOTAL (test code = 7.3 G/DL 2228) ALBUMIN (test code = 2201) 4.6 G/DL CALC GLOBULIN (test code = 2.7 G/DL 2240) CALC A/G RATIO (test code = 1.7 RATIO 2234) BILIRUBIN, TOTAL (test code = 0.4 MG/DL 2206) ALKALINE PHOSPHATASE (test 79 U/L code = 2204) AST (test code = 2218) 36 U/L ALT (test code = 2219) 43 U/L HEMOGLOBIN A1c [ADDED]2018-01-05 00:00:00 Test Item Value Reference Range Interpretation Comments HEMOGLOBIN A1c (test code = 46083) 7.3 % HEMOGLOBIN A1c [ADDED]2018-01-05 00:00:00 Test Item Value Reference Range Interpretation Comments HEMOGLOBIN A1c (test code = 89980) 7.3 % HEMOGLOBIN A1c [ADDED]2018-01-05 00:00:00 Test Item Value Reference Range Interpretation Comments HEMOGLOBIN A1c (test code = 61732) 7.3 % LIPID PANEL [ADDED]2018-01-05 00:00:00 Test Item Value Reference Range Interpretation Comments CHOLESTEROL (test code = 2210) 182 MG/DL TRIGLYCERIDES (test code = 2232) 181 MG/DL HDL CHOLESTEROL (test code = 2220) 47 MG/DL CALC LDL CHOL (test code = 2237) 99 MG/DL RISK RATIO LDL/HDL (test code = 2.10 RATIO 2238) LIPID PANEL [ADDED]2018-01-05 00:00:00 Test Item Value Reference Range Interpretation Comments CHOLESTEROL (test code = 2210) 182 MG/DL TRIGLYCERIDES (test code = 2232) 181 MG/DL HDL CHOLESTEROL (test code = 2220) 47 MG/DL CALC LDL CHOL (test code = 2237) 99 MG/DL RISK RATIO LDL/HDL (test code = 2.10 RATIO 2238) COMPREHENSIVE METABOLIC PANEL [ADDED]2018-01-05 00:00:00 Test Item Value Reference Range Interpretation Comments GLUCOSE (test code = 2217) 133 MG/DL BUN (test code = 2208) 12 MG/DL CREATININE (test code = 2214) 0.79 MG/DL eGFR AMER. (test code 93 ML/MIN/1.73 = 21236) eGFR NON- AMER. (test 80 ML/MIN/1.73 code = 46965) CALC BUN/CREAT (test code = 15 RATIO 2235) SODIUM (test code = 2231) 139 MEQ/L POTASSIUM (test code = 2228) 5.3 MEQ/L CHLORIDE (test code = 2215) 102 MEQ/L CARBON DIOXIDE (test code = 23 MEQ/L 220) CALCIUM (test code = 2209) 9.6 MG/DL PROTEIN, TOTAL (test code = 7.3 G/DL 2228) ALBUMIN (test code = 2201) 4.6 G/DL CALC GLOBULIN (test code = 2.7 G/DL 2240) CALC A/G RATIO (test code = 1.7 RATIO 2234) BILIRUBIN, TOTAL (test code = 0.4 MG/DL 2206) ALKALINE PHOSPHATASE (test 79 U/L code = 2204) AST (test code = 2218) 36 U/L ALT (test code = 2219) 43 U/L COMPREHENSIVE METABOLIC PANEL [ADDED]2018-01-05 00:00:00 Test Item Value Reference Range Interpretation Comments GLUCOSE (test code = 2217) 133 MG/DL BUN (test code = 2208) 12 MG/DL CREATININE (test code = 2214) 0.79 MG/DL eGFR AMER. (test code 93 ML/MIN/1.73 = 87097) eGFR NON- AMER. (test 80 ML/MIN/1.73 code = 95460) CALC BUN/CREAT (test code = 15 RATIO 2235) SODIUM (test code = 2231) 139 MEQ/L POTASSIUM (test code = 2228) 5.3 MEQ/L CHLORIDE (test code = 2215) 102 MEQ/L CARBON DIOXIDE (test code = 23 MEQ/L 6) CALCIUM (test code = 2209) 9.6 MG/DL PROTEIN, TOTAL (test code = 7.3 G/DL 2228) ALBUMIN (test code = 2201) 4.6 G/DL CALC GLOBULIN (test code = 2.7 G/DL 2240) CALC A/G RATIO (test code = 1.7 RATIO 2234) BILIRUBIN, TOTAL (test code = 0.4 MG/DL 2206) ALKALINE PHOSPHATASE (test 79 U/L code = 2204) AST (test code = 2218) 36 U/L ALT (test code = 2219) 43 U/L HEMOGLOBIN A1c [ADDED]2018-01-05 00:00:00 Test Item Value Reference Range Interpretation Comments HEMOGLOBIN A1c (test code = 09717) 7.3 % HEMOGLOBIN A1c [ADDED]2018-01-05 00:00:00 Test Item Value Reference Range Interpretation Comments HEMOGLOBIN A1c (test code = 28206) 7.3 % HEMOGLOBIN A1c [ADDED]2018-01-05 00:00:00 Test Item Value Reference Range Interpretation Comments HEMOGLOBIN A1c (test code = 29244) 7.3 % LIPID PANEL [ADDED]2018-01-05 00:00:00 Test Item Value Reference Range Interpretation Comments CHOLESTEROL (test code = 2210) 182 MG/DL TRIGLYCERIDES (test code = 2232) 181 MG/DL HDL CHOLESTEROL (test code = 2220) 47 MG/DL CALC LDL CHOL (test code = 2237) 99 MG/DL RISK RATIO LDL/HDL (test code = 2.10 RATIO 2238) LIPID PANEL [ADDED]2018-01-05 00:00:00 Test Item Value Reference Range Interpretation Comments CHOLESTEROL (test code = 2210) 182 MG/DL TRIGLYCERIDES (test code = 2232) 181 MG/DL HDL CHOLESTEROL (test code = 2220) 47 MG/DL CALC LDL CHOL (test code = 2237) 99 MG/DL RISK RATIO LDL/HDL (test code = 2.10 RATIO 2238) COMPREHENSIVE METABOLIC [id number] 00:00:00 Test Item Value Reference Range Interpretation Comments GLUCOSE (test code = 2217) 109 MG/DL BUN (test code = 2208) 13 MG/DL CREATININE (test code = 2214) 0.66 MG/DL eGFR AMER. (test code 110 ML/MIN/1.73 = 94994) eGFR NON- AMER. (test 95 ML/MIN/1.73 code = 90335) CALC BUN/CREAT (test code = 20 RATIO 2235) SODIUM (test code = 2231) 142 MEQ/L POTASSIUM (test code = 2228) 4.7 MEQ/L CHLORIDE (test code = 2215) 102 MEQ/L CARBON DIOXIDE (test code = 24 MEQ/L 2205) CALCIUM (test code = 2209) 9.7 MG/DL PROTEIN, TOTAL (test code = 7.2 G/DL 2228) ALBUMIN (test code = 2201) 4.4 G/DL CALC GLOBULIN (test code = 2.8 G/DL 2239) CALC A/G RATIO (test code = 1.6 RATIO 2234) BILIRUBIN, TOTAL (test code = 0.6 MG/DL 2207) ALKALINE PHOSPHATASE (test 70 U/L code = 2204) AST (test code = 2218) 24 U/L ALT (test code = 2219) 27 U/L COMPREHENSIVE METABOLIC [id number] 00:00:00 Test Item Value Reference Range Interpretation Comments GLUCOSE (test code = 2217) 109 MG/DL BUN (test code = 2208) 13 MG/DL CREATININE (test code = 2214) 0.66 MG/DL eGFR AMER. (test code 110 ML/MIN/1.73 = 10920) eGFR NON- AMER. (test 95 ML/MIN/1.73 code = 99363) CALC BUN/CREAT (test code = 20 RATIO 2235) SODIUM (test code = 2231) 142 MEQ/L POTASSIUM (test code = 2228) 4.7 MEQ/L CHLORIDE (test code = 2215) 102 MEQ/L CARBON DIOXIDE (test code = 24 MEQ/L 220) CALCIUM (test code = 2209) 9.7 MG/DL PROTEIN, TOTAL (test code = 7.2 G/DL 2228) ALBUMIN (test code = 2201) 4.4 G/DL CALC GLOBULIN (test code = 2.8 G/DL 2240) CALC A/G RATIO (test code = 1.6 RATIO 2234) BILIRUBIN, TOTAL (test code = 0.6 MG/DL 2206) ALKALINE PHOSPHATASE (test 70 U/L code = 2204) AST (test code = 2218) 24 U/L ALT (test code = 2219) 27 U/L COMPREHENSIVE METABOLIC [id number] 00:00:00 Test Item Value Reference Range Interpretation Comments GLUCOSE (test code = 2217) 109 MG/DL BUN (test code = 2208) 13 MG/DL CREATININE (test code = 2214) 0.66 MG/DL eGFR AMER. (test code 110 ML/MIN/1.73 = 16428) eGFR NON- AMER. (test 95 ML/MIN/1.73 code = 81185) CALC BUN/CREAT (test code = 20 RATIO 2235) SODIUM (test code = 2231) 142 MEQ/L POTASSIUM (test code = 2228) 4.7 MEQ/L CHLORIDE (test code = 2215) 102 MEQ/L CARBON DIOXIDE (test code = 24 MEQ/L 2206) CALCIUM (test code = 2209) 9.7 MG/DL PROTEIN, TOTAL (test code = 7.2 G/DL 222) ALBUMIN (test code = 2201) 4.4 G/DL CALC GLOBULIN (test code = 2.8 G/DL 2240) CALC A/G RATIO (test code = 1.6 RATIO 2234) BILIRUBIN, TOTAL (test code = 0.6 MG/DL 220) ALKALINE PHOSPHATASE (test 70 U/L code = 2204) AST (test code = 2218) 24 U/L ALT (test code = 2219) 27 U/L COMPREHENSIVE METABOLIC [id number] 00:00:00 Test Item Value Reference Range Interpretation Comments GLUCOSE (test code = 2217) 109 MG/DL BUN (test code = 2208) 13 MG/DL CREATININE (test code = 2214) 0.66 MG/DL eGFR AMER. (test code 110 ML/MIN/1.73 = 69808) eGFR NON- AMER. (test 95 ML/MIN/1.73 code = 85038) CALC BUN/CREAT (test code = 20 RATIO 2235) SODIUM (test code = 2231) 142 MEQ/L POTASSIUM (test code = 2228) 4.7 MEQ/L CHLORIDE (test code = 2215) 102 MEQ/L CARBON DIOXIDE (test code = 24 MEQ/L 2205) CALCIUM (test code = 2209) 9.7 MG/DL PROTEIN, TOTAL (test code = 7.2 G/DL 2228) ALBUMIN (test code = 2201) 4.4 G/DL CALC GLOBULIN (test code = 2.8 G/DL 2240) CALC A/G RATIO (test code = 1.6 RATIO 2234) BILIRUBIN, TOTAL (test code = 0.6 MG/DL 2207) ALKALINE PHOSPHATASE (test 70 U/L code = 2204) AST (test code = 2218) 24 U/L ALT (test code = 2219) 27 U/L COMPREHENSIVE METABOLIC [id number] 00:00:00 Test Item Value Reference Range Interpretation Comments GLUCOSE (test code = 2217) 109 MG/DL BUN (test code = 2208) 13 MG/DL CREATININE (test code = 2214) 0.66 MG/DL eGFR AMER. (test code 110 ML/MIN/1.73 = 87393) eGFR NON- AMER. (test 95 ML/MIN/1.73 code = 46157) CALC BUN/CREAT (test code = 20 RATIO 2235) SODIUM (test code = 2231) 142 MEQ/L POTASSIUM (test code = 2228) 4.7 MEQ/L CHLORIDE (test code = 2215) 102 MEQ/L CARBON DIOXIDE (test code = 24 MEQ/L 2206) CALCIUM (test code = 2209) 9.7 MG/DL PROTEIN, TOTAL (test code = 7.2 G/DL 2228) ALBUMIN (test code = 2201) 4.4 G/DL CALC GLOBULIN (test code = 2.8 G/DL 2240) CALC A/G RATIO (test code = 1.6 RATIO 2234) BILIRUBIN, TOTAL (test code = 0.6 MG/DL 2206) ALKALINE PHOSPHATASE (test 70 U/L code = 220) AST (test code = 2218) 24 U/L ALT (test code = 2219) 27 U/L COMPREHENSIVE METABOLIC [id number] 00:00:00 Test Item Value Reference Range Interpretation Comments GLUCOSE (test code = 2217) 109 MG/DL BUN (test code = 2208) 13 MG/DL CREATININE (test code = 2214) 0.66 MG/DL eGFR AMER. (test code 110 ML/MIN/1.73 = 73981) eGFR NON- AMER. (test 95 ML/MIN/1.73 code = 77416) CALC BUN/CREAT (test code = 20 RATIO 2235) SODIUM (test code = 2231) 142 MEQ/L POTASSIUM (test code = 2228) 4.7 MEQ/L CHLORIDE (test code = 2215) 102 MEQ/L CARBON DIOXIDE (test code = 24 MEQ/L 220) CALCIUM (test code = 2209) 9.7 MG/DL PROTEIN, TOTAL (test code = 7.2 G/DL 2228) ALBUMIN (test code = 2201) 4.4 G/DL CALC GLOBULIN (test code = 2.8 G/DL 2240) CALC A/G RATIO (test code = 1.6 RATIO 2234) BILIRUBIN, TOTAL (test code = 0.6 MG/DL 2206) ALKALINE PHOSPHATASE (test 70 U/L code = 2204) AST (test code = 2218) 24 U/L ALT (test code = 2219) 27 U/L COMPREHENSIVE METABOLIC [id number] 00:00:00 Test Item Value Reference Range Interpretation Comments GLUCOSE (test code = 2217) 109 MG/DL BUN (test code = 2208) 13 MG/DL CREATININE (test code = 2214) 0.66 MG/DL eGFR AMER. (test code 110 ML/MIN/1.73 = 60124) eGFR NON- AMER. (test 95 ML/MIN/1.73 code = 15184) CALC BUN/CREAT (test code = 20 RATIO 2235) SODIUM (test code = 2231) 142 MEQ/L POTASSIUM (test code = 2228) 4.7 MEQ/L CHLORIDE (test code = 2215) 102 MEQ/L CARBON DIOXIDE (test code = 24 MEQ/L 2205) CALCIUM (test code = 2209) 9.7 MG/DL PROTEIN, TOTAL (test code = 7.2 G/DL 2228) ALBUMIN (test code = 2201) 4.4 G/DL CALC GLOBULIN (test code = 2.8 G/DL 2239) CALC A/G RATIO (test code = 1.6 RATIO 2234) BILIRUBIN, TOTAL (test code = 0.6 MG/DL 2206) ALKALINE PHOSPHATASE (test 70 U/L code = 2204) AST (test code = 2218) 24 U/L ALT (test code = 2219) 27 U/L COMPREHENSIVE METABOLIC [id number] 00:00:00 Test Item Value Reference Range Interpretation Comments GLUCOSE (test code = 2217) 109 MG/DL BUN (test code = 2208) 13 MG/DL CREATININE (test code = 2214) 0.66 MG/DL eGFR AMER. (test code 110 ML/MIN/1.73 = 04735) eGFR NON- AMER. (test 95 ML/MIN/1.73 code = 80029) CALC BUN/CREAT (test code = 20 RATIO 2235) SODIUM (test code = 2231) 142 MEQ/L POTASSIUM (test code = 2228) 4.7 MEQ/L CHLORIDE (test code = 2215) 102 MEQ/L CARBON DIOXIDE (test code = 24 MEQ/L 2205) CALCIUM (test code = 2209) 9.7 MG/DL PROTEIN, TOTAL (test code = 7.2 G/DL 2228) ALBUMIN (test code = 2201) 4.4 G/DL CALC GLOBULIN (test code = 2.8 G/DL 2239) CALC A/G RATIO (test code = 1.6 RATIO 2233) BILIRUBIN, TOTAL (test code = 0.6 MG/DL 2206) ALKALINE PHOSPHATASE (test 70 U/L code = 2203) AST (test code = 2218) 24 U/L ALT (test code = 221) 27 U/L
[2022-04-18] MEDS ORDERED: Levofloxacin500mg IV 500 MG/100 ML BAG IV ONE (02:36)
[2022-04-18] MEDS ORDERED: FAMOTIDINE 20 MG/2 ML VIAL IV ONE (02:36)
[2022-04-18] MEDS ORDERED: METHYLPREDNISOLONE 125 MG INJ ONE (02:36)
[2022-04-18] MEDS ORDERED: IPRATROPIUM BROM 0.5MG/2.5ML ONE (02:36)
[2022-04-18] MEDS ORDERED: LEVALBUTEROL 1.25 MG/3 ML NEB ONE ×2 (02:36→04:10)
[2022-04-18] MEDS ORDERED: NA CHLORIDE 0.9% 1,000 ML ONE (02:37)
[2022-04-18 03:54] LABS: Absolute Lymphocytes (CBC) 0.6 K/uL (0.7-4.9); Hematocrit 42.6 % (36.0-45.0); Lymphocytes % 6.3 % (15.3-44.8); MCV 92.6 fL (80-100); MPV 7.5 fL (7.6-11.3)
[2022-04-18 03:54] LABS: SARS-COV-2 RT PCR NEGATIVE (NEGATIVE)
[2022-04-18 03:56] LABS: Protime INR 0.95
[2022-04-18] MEDS ORDERED: predniSONE 20 MG TAB ONE (04:10)
[2022-04-18] MEDS ORDERED: Magnesium Sulfate 2gm IVPB 2 G/50 ML BAG IV ONE (04:10)
[2022-04-18 04:14] LABS: Albumin 3.9 g/dL (3.4-5.0); Bilirubin Direct 0.2 mg/dL (0-0.2); Bilirubin Total 0.6 mg/dL (0.2-1.0); Magnesium 2.2 mg/dL (1.6-2.4); Potassium 4.1 mmol/L (3.5-5.1); Protein, Total 7.1 g/dL (6.4-8.2); Troponin High Sensitivity 13.4 pg/mL (<58.9)
[2022-04-18] MEDS ORDERED: INSULIN -REGULAR HUMAN 50 UNIT/0.5 ML ML ONE (06:05)
[2022-04-18] MEDS ORDERED: INSULIN GLARGINE 100 UNIT/ML SQ ONE (06:33)
[2022-04-18 09:43] VITALS: BP 116/69; O2SAT 90
--- NOTE | 2022-04-20 09:07 | RAD REPORT ---
EXAM DESCRIPTION: RAD - Chest Single View - 04/18/2022 2:24 am CLINICAL HISTORY: The patient is 66 years old and is Female; COPD [facility] MAIN TECHNIQUE: Frontal view of the chest. COMPARISON: 11/09/2021 chest radiograph FINDINGS: LUNGS: Stable appearance of bilateral interstitial lung markings with no new focal cons olidation. PLEURAL SPACE: No pleural effusion. No pneumothorax. HEART: Coronary artery calcifications noted. MEDIASTINUM: Stable cardiomediastinal silhouette. Calcified atherosclerosis of the thoracic aorta. BONES/JOINTS: Unremarkable. UPPER ABDOMEN: Flattening of the bilateral diaphragms. IMPRESSION: Chronic lung findings with no acute findings in the chest. Electronically signed by: Alex Saravia MD 04/18/2022 2:36 AM FLIGHT INSTRUCTOR Due to temporary technical issues with the PACS/Fluency reporting system, reports are being signed by the in house radiologists without review as a courtesy to insure prompt reporting. The interpreting radiologist is fully responsible for the content of the report.
--- NOTE | 2022-04-20 13:09 | EKG ---
Test Date: 2022-04-18 Test Time: 03:25:26 Lookback Coordinator: KORI MEASUREMENT RESULTS: Intervals: Rate: 88 UT: 140 QRSD: 86 QT: 390 QTc: 471 Normal: P: 89 UT: 140 QRS: 82 T: 86 INTERPRETIVE STATEMENTS: Normal sinus rhythm Right atrial enlargement Borderline ECG Compared to ECG 11/09/2021 04:23:21 No significant changes Electronically Signed On 04-20-22 13:05:19 CDT by Ghanshyam Knox
--- NOTE | 2022-05-01 16:21 | EDPHYS ---
Physician Documentation [facility] Name: Dalia Reyes Age: 66 yrs Sex: Female : 1955 Arrival Date: 04/18/2022 Time: 01:57 Bed 19 Private MD: ED Physician Iván Mendez HPI: 04/18 02:33 This 66 yrs old Female presents to ER via EMS with complaints of Shortness Of italo Breath. 02:33 The patient has shortness of breath at rest, with light activity. Onset: The italo symptoms/episode began/occurred 2 day(s) ago. Duration: The symptoms are continuous, and are steadily getting worse. The patient's shortness of breath is aggravated by light activity, supine position. Associated signs and symptoms: Pertinent positives: non-productive cough. Severity of symptoms: At their worst the symptoms were mild moderate in the emergency department the symptoms are unchanged. The patient has not experienced similar symptoms in the past. Historical: - Allergies: 02:22 Benadryl; kl 02:22 Lorazepam; kl 02:22 Valium; kl - Home Meds: 02:22 Albuterol Inhl [Active]; aspirin 81 mg Oral chew 1 tab once daily [Active]; kl atorvastatin 80 mg Oral tab 1 tab once daily [Active]; steroids [Active]; 02:23 Plavix 75 mg Oral tablet daily [Active]; kl - PMHx: 02:22 diabetes mellitus; Chronic obstructive lung disease; Emphysema; Hypercholesterolemia; kl Hypertensive disorder; - PSHx: 02:22 section; Heart Stents; kl - Immunization history:: Adult Immunizations. - Social history:: Smoking status: Patient reports the use of cigarette tobacco products, smokes one pack cigarettes per day. - Family history:: not pertinent. ROS: 02:33 Constitutional: Negative for fever, chills, and weight loss, Eyes: Negative for injury, italo pain, redness, and discharge, ENT: Negative for injury, pain, and discharge, Neck: Negative for injury, pain, and swelling, Cardiovascular: Negative for chest pain, palpitations, and edema, Abdomen/GI: Negative for abdominal pain, nausea, vomiting, diarrhea, and constipation, Back: Negative for injury and pain, : Negative for injury, bleeding, discharge, and swelling, MS/Extremity: Negative for injury and deformity, Skin: Negative for injury, rash, and discoloration, Neuro: Negative for headache, weakness, numbness, tingling, and seizure, Psych: Negative for depression, anxiety, suicide ideation, homicidal ideation, and hallucinations, Allergy/Immunology: Negative for hives, rash, and allergies, Endocrine: Negative for neck swelling, polydipsia, polyuria, polyphagia, and marked weight changes, Hematologic/Lymphatic: Negative for swollen nodes, abnormal bleeding, and unusual bruising. 02:33 Respiratory: Positive for cough, shortness of breath, wheezing, inspiratory, expiratory. Exam: 02:33 Constitutional: This is a well developed, well nourished patient who is awake, alert, italo and in no acute distress. Head/Face: Normocephalic, atraumatic. Eyes: Pupils equal round and reactive to light, extra-ocular motions intact. Lids and lashes normal. Conjunctiva and sclera are non-icteric and not injected. Cornea within normal limits. Periorbital areas with no swelling, redness, or edema. ENT: Nares patent. No nasal discharge, no septal abnormalities noted. Tympanic membranes are normal and external auditory canals are clear. Oropharynx with no redness, swelling, or masses, exudates, or evidence of obstruction, uvula midline. Mucous membranes moist. Neck: Trachea midline, no thyromegaly or masses palpated, and no cervical lymphadenopathy. Supple, full range of motion without nuchal rigidity, or vertebral point tenderness. No Meningismus. Chest/axilla: Normal chest wall appearance and motion. Nontender with no deformity. No lesions are appreciated. Cardiovascular: Regular rate and rhythm with a normal S1 and S2. No gallops, murmurs, or rubs. Normal PMI, no JVD. No pulse deficits. Abdomen/GI: Soft, non-tender, with normal bowel sounds. No distension or tympany. No guarding or rebound. No evidence of tenderness throughout. Back: No spinal tenderness. No costovertebral tenderness. Full range of motion. Female : Normal external genitalia. Skin: Warm, dry with normal turgor. Normal color with no rashes, no lesions, and no evidence of cellulitis. MS/ Extremity: Pulses equal, no cyanosis. Neurovascular intact. Full, normal range of motion. Neuro: Awake and alert, GCS 15, oriented to person, place, time, and situation. Cranial nerves II-XII grossly intact. Motor strength 5/5 in all extremities. Sensory grossly intact. Cerebellar exam normal. Normal gait. Psych: Awake, alert, with orientation to person, place and time. Behavior, mood, and affect are within normal limits. 02:33 Respiratory: the patient does not display signs of respiratory distress, Respirations: normal, Breath sounds: decreased breath sounds, that are mild, rhonchi, are not appreciated, stridor, is not appreciated, Respiratory rate: 22 03:29 ECG was reviewed by the Attending Physician. italo 04:49 Musculoskeletal/extremity: DVT Exam: No signs of deep vein thrombosis. no pain, no italo swelling, no tenderness, negative Homans' sign noted on exam, no appreciated bluish discoloration, no erythema, no increased warmth. Vital Signs: 02:20 BP 137 / 81; Pulse 88; Resp 22; Pulse Ox 96% 3 lpm ; kl 03:05 BP 127 / 65; Pulse 81; Resp 21; Pulse Ox 100% on Nebulizer Mask; jj7 04:14 BP 125 / 59; Pulse 96; Resp 20; Pulse Ox 96% on Nebulizer Mask; Pain 0/10; jj7 05:14 BP 116 / 69; Pulse 100; Resp 17; Pulse Ox 90% ; Pain 0/10; jj7 06:14 BP 125 / 66; Pulse 102; Resp 19; Temp 98.3; Pulse Ox 91% on 2 lpm NC; Pain 0/10; jj7 04:14 Pain Scale: Adult jj7 05:14 Pain Scale: Adult jj7 06:14 Pain Scale: Adult jj7 NIH Stroke Scale Scores: 04:49 NIHSS Score: 0 italo MDM: 01:57 Patient medically screened. italo 02:37 Differential diagnosis: asthma, Bronchitis CHF exacerbation, Chronic Obstructive italo Pulmonary Disease pneumonia, pulmonary edema, reactive airway disease, Sepsis. Antibiotic administration: Levaquin given. Immunization status: Pneumococcal vaccine: within last 5 years. Influenza vaccine: within last 5 years. Data reviewed: vital signs, nurses notes, lab test result(s), EKG, radiologic studies, plain films. Consideration of Admission/Observation Patient was admitted/placed on observation. 04:50 Counseling: I had a detailed discussion with the patient and/or guardian regarding: the [facility] historical points, exam findings, and any diagnostic results supporting the discharge/admit diagnosis, lab results, radiology results, the need for outpatient follow up, for definitive care, an insurance plan specialist. 04:52 ED course: pt explained importance of admission, pt refused, will go home, will not be italo admitted , no matter how severe the consequences. 04/18 02:09 Order name: Basic Metabolic Panel; Complete Time: 04:39 [facility] 04/18 02:09 Order name: CBC with Diff; Complete Time: 04:39 [facility] 04/18 02:09 Order name: LFT's; Complete Time: 04:39 [facility] 04/18 02:09 Order name: Magnesium; Complete Time: 04:39 [facility] 04/18 02:09 Order name: NT PRO-BNP; Complete Time: 04:39 [facility] 04/18 02:09 Order name: PT-INR; Complete Time: 04:39 [facility] 04/18 02:09 Order name: Troponin HS; Complete Time: 04:39 [facility] 04/18 02:09 Order name: Blood Culture Adult (2) [facility] 04/18 02:09 Order name: Lactate w/ 2H reflex if indic.; Complete Time: 04:39 [facility] 04/18 02:09 Order name: COVID-19/FLU A+B; Complete Time: 04:39 [facility] 04/18 02:09 Order name: XRAY Chest (1 view) [facility] 04/18 02:09 Order name: EKG; Complete Time: 02:09 [facility] 04/18 02:09 Order name: Cardiac monitoring [facility] 04/18 02:09 Order name: EKG - Nurse/Tech; Complete Time: 03:33 [facility] 04/18 02:09 Order name: IV Saline Lock; Complete Time: 03:33 [facility] 04/18 02:09 Order name: Labs collected and sent [facility] 04/18 02:09 Order name: O2 Per Protocol; Complete Time: 03:33 [facility] 04/18 02:09 Order name: O2 Sat Monitoring; Complete Time: 03:33 [facility] EC:29 Rate is 88 beats/min. Rhythm is regular. QRS [place] is Normal. [place] interval is normal. QRS italo interval is normal. QT interval is normal. No Q waves. T waves are Normal. No ST changes noted. Clinical impression: NSR w/ Non-specific ST/T Changes and No evidence of ischemia. Interpreted by me. Reviewed by me. Administered Medications: 02:53 Drug: Levalbuterol Inhalation 3.75 mg Route: Inhalation; jj7 02:53 Drug: Ipratropium Inhalation Aerosol 0.5 mg Route: Inhalation; jj7 02:53 Drug: Famotidine IVP 20 mg Route: IVP; Site: left forearm; jj7 03:00 Follow up: Response: No adverse reaction jj7 02:54 Drug: NS 0.9% IV 1000 ml Route: IV; Rate: 125 ml/hr; Site: left forearm; jj7 03:14 Follow up: Response: Marked relief of symptoms jj7 06:40 Follow up: IV Status: Completed infusion; IV Intake: 400ml jj7 02:54 Drug: MethylPrednisoLONE IVP 125 mg Route: IVP; Site: left forearm; jj7 04:13 Drug: Magnesium Sulfate IVPB 2 grams Route: IVPB; Infused Over: 2 hrs; Site: left [facility] forearm; 06:20 Follow up: IV Status: Completed infusion jj7 04:13 Drug: predniSONE PO 40 mg Route: PO; jj7 06:41 Follow up: Response: No adverse reaction jj7 04:14 Drug: Levalbuterol Inhalation 1.25 mg Route: Inhalation; jj7 05:14 Drug: levofloxacin IVPB 500 mg Volume: 100 ml; Route: IVPB; Infused Over: 60 mins; jj7 Site: left forearm; 06:20 Follow up: IV Status: Completed infusion jj7 06:10 Drug: Insulin Regular Human IVP 8 units {Co-Signature: sita (Dex Tijerina RN).} Route: IVP; Site: right forearm; 06:41 Follow up: Response: No adverse reaction jj7 06:34 Drug: Semglee (insulin glargine-yfgn) Pen Injector 100 unit/mL 30 units Route: Sub-Q; Site: abdomen; 06:42 Follow up: Response: No adverse reaction jj7 Disposition Summary: 04/18/22 04:53 Discharge Ordered Location: Home italo Problem: new italo Symptoms: have improved italo Condition: Fair italo Diagnosis - COPD/ Chronic obstructive pulmonary disease with (acute) exacerbation italo - Hypoxemia italo - Type 2 diabetes mellitus with hyperglycemia italo Followup: italo - With: Private Physician - When: 2 - 3 days - Reason: Recheck today's complaints, Continuance of care, Re-evaluation by your physician Followup: italo - With: - When: 2 - 3 days - Reason: Recheck today's complaints, Re-evaluation by your physician Discharge Instructions: - Cough, Adult, [id number] italo - Hypoxemia italo - Diabetes Mellitus and Nutrition, Adult italo - Chronic Obstructive Pulmonary Disease, [id number] italo - Chronic Obstructive Pulmonary Disease Exacerbation italo - Hyperglycemia italo - Type 2 Diabetes Mellitus, Diagnosis, Adult italo - Chronic Obstructive Pulmonary Disease italo - Chronic Bronchitis, Adult italo - Discharge Summary Sheet [facility] Forms: - Prescription Opioid Use italo - Antibiotic Education [facility] - Thank You Letter [facility] - Medication Reconciliation Form [facility] Prescriptions: - levofloxacin 500 mg Oral Tablet - take 1 tablet by ORAL route once daily for 7 days; 7 tablet; Refills: 0, [facility] Product Selection Permitted - Prednisone 20 mg Oral Tablet - take 2 tablets by ORAL route once daily for 5 days; 10 tablet; Refills: 0, [facility] Product Selection Permitted - Albuterol Sulfate 2.5 mg /3 mL (0.083 %) Inhalation Solution for Nebulization - inhale 1 unit by NEBULIZATION route every 8 hours As needed; 25 unit; Refills: italo 0, Product Selection Permitted - albuterol sulfate 90 mcg/actuation Inhalation HFA Aerosol Inhaler - inhale 2 puff by INHALATION route every 4 to 6 hours as needed for italo bronchospasm; administer via ventilator; 1 unit; Refills: 0, Product Selection Permitted NIH Stroke Scale - NIH Stroke Score Date: 04/18/2022 Time: 04:49 Total Score = 0 10. Dysarthria (speech clarity - read or repeat words) - 0(Normal) 11. Extinction and Inattention (visual/tactile/auditory/spatial/personal) - 0(No abnormality) 1a. Level of Consciousness (LOC) - 0(Alert) 1b. Level of Consciousness (LOC) (Month \T\ Age) - 0(Both) 1c. LOC Commands (Open \T\ Closes Eyes/Pigment Making Supervisor) - 0(Both) 2. Best Gaze (Lateral Gaze Paresis) - 0(Normal) 3. Visual Field Loss - 0(No visual loss) 4. Facial Palsy - 0(Normal) 5a. Left Arm: Motor (10-second hold) - 0(No drift) 5b. Right Arm: Motor (10-second hold) - 0(No drift) 6a. Left Leg: Motor (5-second hold - always test supine) - 0(No drift) 6b. Right Leg: Motor (5-second hold - always test supine) - 0(No drift) 7. Limb Ataxia (finger/nose \T\ heel/young - test with eyes open) - 0(Absent) 8. Sensory Loss (pinprick arms/legs/face) - 0(Normal) 9. Best Language: Aphasia (description/naming/reading) - 0(No aphasia) Initials: italo Signatures: Dispatcher [employer] Mitali Shultz RN RN kl Anderson, Corey, MD MD cha Johnson, Juwairiyah, RN RN jj7 Dex Tijerina RN jj7
--- NOTE | 2022-05-01 16:21 | ER ---
Nurse's Notes [facility] Name: Dalia Reyes Age: 66 yrs Sex: Female : 1955 Arrival Date: 04/18/2022 Time: 01:57 Bed 19 Private MD: Diagnosis: COPD/ Chronic obstructive pulmonary disease with (acute) exacerbation;Hypoxemia;Type 2 diabetes mellitus with hyperglycemia Presentation: 04/18 02:08 Care prior to arrival: Medication(s) given: Albuterol Neb Atrovent Neb solu medrol. kl 02:20 Chief complaint: Patient states: Difficulty breathing. Coronavirus screen: Vaccine kl status: Patient reports receiving the 2nd dose of the covid vaccine. Ebola Screen: Patient negative for fever greater than or equal to 101.5 degrees Fahrenheit, and additional compatible Ebola Virus Disease symptoms. Initial Sepsis Screen: Does the patient meet any 2 criteria? No. Patient's initial sepsis screen is negative. Does the patient have a suspected source of infection? No. Patient's initial sepsis screen is negative. Risk Assessment: Do you want to hurt yourself or someone else? Patient reports no desire to harm self or others. 02:20 Method Of Arrival: EMS: [facility] kl 02:20 Acuity: CONSTANTINO 3 kl 07:27 Onset of symptoms is unknown. jj7 Triage Assessment: 02:21 General: Appears in no apparent distress. comfortable, Behavior is calm, cooperative. kl Pain: Denies pain. Respiratory: Reports shortness of breath better after breathing treatment per EMS currently at baseline Onset: The symptoms/episode began/occurred just prior to arrival, the patient has mild shortness of breath. Historical: - Allergies: 02:22 Benadryl; kl 02:22 Lorazepam; kl 02:22 Valium; kl - Home Meds: 02:22 Albuterol Inhl [Active]; aspirin 81 mg Oral chew 1 tab once daily [Active]; kl atorvastatin 80 mg Oral tab 1 tab once daily [Active]; steroids [Active]; 02:23 Plavix 75 mg Oral tablet daily [Active]; kl - PMHx: 02:22 diabetes mellitus; Chronic obstructive lung disease; Emphysema; Hypercholesterolemia; kl Hypertensive disorder; - PSHx: 02:22 section; Heart Stents; kl - Immunization history:: Adult Immunizations. - Social history:: Smoking status: Patient reports the use of cigarette tobacco products, smokes one pack cigarettes per day. - Family history:: not pertinent. Screenin:24 [facility] ED Fall Risk Assessment (Adult) History of falling in the last 3 months, kl including since admission No falls in past 3 months (0 pts) Confusion or Disorientation No (0 pts) Intoxicated or Sedated No (0 pts) Impaired Gait No (0 pts) Mobility Assist Device Used No (0 pt) Altered Elimination No (0 pt) Score/Fall Risk Level 0 - 2 = Low Risk Oriented to surroundings, Maintained a safe environment. Abuse screen: Denies threats or abuse. Nutritional screening: No deficits noted. Tuberculosis screening: No symptoms or risk factors identified. Assessment: 02:28 General: Appears in no apparent distress. comfortable, Behavior is calm, cooperative, jj7 appropriate for age. Cardiovascular: No deficits noted. Respiratory: Airway is patent Respiratory effort is even, unlabored, Respiratory pattern is Breath sounds with wheezes bilaterally. 06:00 Cardiovascular: Rhythm is sinus rhythm. jj7 Vital Signs: 02:20 BP 137 / 81; Pulse 88; Resp 22; Pulse Ox 96% 3 lpm ; kl 03:05 BP 127 / 65; Pulse 81; Resp 21; Pulse Ox 100% on Nebulizer Mask; jj7 04:14 BP 125 / 59; Pulse 96; Resp 20; Pulse Ox 96% on Nebulizer Mask; Pain 0/10; jj7 05:14 BP 116 / 69; Pulse 100; Resp 17; Pulse Ox 90% ; Pain 0/10; jj7 06:14 BP 125 / 66; Pulse 102; Resp 19; Temp 98.3; Pulse Ox 91% on 2 lpm NC; Pain 0/10; jj7 04:14 Pain Scale: Adult jj7 05:14 Pain Scale: Adult jj7 06:14 Pain Scale: Adult jj7 NIH Stroke Scale Scores: 04:49 NIHSS Score: 0 italo ED Course: 01:57 Patient arrived in ED. 01:57 Iván Mendez MD is Attending Physician. italo 02:08 Maintain EMS IV. Dressing intact. Good blood return noted. Gauge \T\ site: 20 \E\left kl forearm. 02:12 Dex Tijerina RN is Primary Nurse. jj7 02:21 Triage completed. kl 02:26 XRAY Chest (1 view) In Process Unspecified. EDMS 02:28 Patient has correct armband on for positive identification. Bed in low position. Call jj7 light in reach. Side rails up X2. 02:28 Arm band placed on right wrist. Patient placed in the treatment room, on a stretcher. jj7 03:33 COVID-19/FLU A+B Sent. jj7 03:49 Inserted saline lock: 22 gauge in right antecubital area, using aseptic technique. oe Blood collected. 04:53 Alonso Licona MD is Referral Physician. [facility] 06:40 No provider procedures requiring assistance completed. IV discontinued, intact, jj7 bleeding controlled, No redness/swelling at site. Pressure dressing applied. Administered Medications: 02:53 Drug: Levalbuterol Inhalation 3.75 mg Route: Inhalation; jj7 02:53 Drug: Ipratropium Inhalation Aerosol 0.5 mg Route: Inhalation; jj7 02:53 Drug: Famotidine IVP 20 mg Route: IVP; Site: left forearm; jj7 03:00 Follow up: Response: No adverse reaction jj7 02:54 Drug: NS 0.9% IV 1000 ml Route: IV; Rate: 125 ml/hr; Site: left forearm; jj7 03:14 Follow up: Response: Marked relief of symptoms jj7 06:40 Follow up: IV Status: Completed infusion; IV Intake: 400ml jj7 02:54 Drug: MethylPrednisoLONE IVP 125 mg Route: IVP; Site: left forearm; jj7 04:13 Drug: Magnesium Sulfate IVPB 2 grams Route: IVPB; Infused Over: 2 hrs; Site: left j forearm; 06:20 Follow up: IV Status: Completed infusion jj7 04:13 Drug: predniSONE PO 40 mg Route: PO; jj7 06:41 Follow up: Response: No adverse reaction jj7 04:14 Drug: Levalbuterol Inhalation 1.25 mg Route: Inhalation; jj7 05:14 Drug: levofloxacin IVPB 500 mg Volume: 100 ml; Route: IVPB; Infused Over: 60 mins; jj7 Site: left forearm; 06:20 Follow up: IV Status: Completed infusion jj7 06:10 Drug: Insulin Regular Human IVP 8 units {Co-Signature: jj7 (Dex Tijerina RN).} Route: IVP; Site: right forearm; 06:41 Follow up: Response: No adverse reaction jj7 06:34 Drug: Semglee (insulin glargine-yfgn) Pen Injector 100 unit/mL 30 units Route: Sub-Q; Site: abdomen; 06:42 Follow up: Response: No adverse reaction jj7 Medication: 02:28 VIS not applicable for this client. jj7 Intake: 06:40 IV: 400ml; Total: 400ml. jj7 Outcome: 04:53 Discharge ordered by . italo 06:40 Discharged to home via wheelchair, with family. jj7 06:40 Condition: improved 06:40 Discharge instructions given to patient, family, Instructed on discharge instructions, follow up and referral plans. medication usage, Demonstrated understanding of instructions, follow-up care, medications, Prescriptions given X 4. 07:14 Patient left the ED. [id number] NIH Stroke Scale - NIH Stroke Score Date: 04/18/2022 Time: 04:49 Total Score = 0 10. Dysarthria (speech clarity - read or repeat words) - 0(Normal) 11. Extinction and Inattention (visual/tactile/auditory/spatial/personal) - 0(No abnormality) 1a. Level of Consciousness (LOC) - 0(Alert) 1b. Level of Consciousness (LOC) (Month \T\ Age) - 0(Both) 1c. LOC Commands (Open \T\ Closes Eyes/Ready Mix Truck Driver) - 0(Both) 2. Best Gaze (Lateral Gaze Paresis) - 0(Normal) 3. Visual Field Loss - 0(No visual loss) 4. Facial Palsy - 0(Normal) 5a. Left Arm: Motor (10-second hold) - 0(No drift) 5b. Right Arm: Motor (10-second hold) - 0(No drift) 6a. Left Leg: Motor (5-second hold - always test supine) - 0(No drift) 6b. Right Leg: Motor (5-second hold - always test supine) - 0(No drift) 7. Limb Ataxia (finger/nose \T\ heel/young - test with eyes open) - 0(Absent) 8. Sensory Loss (pinprick arms/legs/face) - 0(Normal) 9. Best Language: Aphasia (description/naming/reading) - 0(No aphasia) Initials: [facility] Signatures: Dispatcher [employer] Mitali Shultz RN RN Iván Drake MD MD cha Espinosa, Orlando oe Marsh, Wendy wm Campbell, Kaitlyn, RN RN [id number] Dex Tijerina RN RN jj7 Dex Tijerina RN jj7
== END 2022-04-18 07:14 | disposition home or self-care (01) ==
LOC: ER 01:49
DX: J44.1 Chronic obstructive pulmonary disease with (acute) exacerbation (principal); R09.02 Hypoxemia; E11.65 Type 2 diabetes mellitus with hyperglycemia; I10 Essential (primary) hypertension; F17.210 Nicotine dependence, cigarettes, uncomplicated; Z20.822 Contact with and (suspected) exposure to COVID-19; Z95.818 Presence of other cardiac implants and grafts; Z88.5 Allergy status to narcotic agent; Z88.8 Allergy status to other drugs, medicaments and biological substances
CPT/HCPCS: 93005; 87040; 85025; 80048; 36415; 83735; 85610; 80076; 83605; 84484; 83880; 0240U; 71045; 96372; 99285; J1815; J7512; J3475; J7614 ×2; J7644; J2930; J7030

== ENCOUNTER 2022-04-18 15:57 | Observation (INO) | payer OTHER ==
--- OUTSIDE RECORDS SUMMARY | 2022-04-18 16:15 | XMS REPORT | Continuity of Care Document ---
:1955 Author Organization [facility] t Address [address] [place] [address]. [address] [place] [address] Care Team Providers Name Role Phone Asked, No Pcp Primary Care Physician Unavailable Zina DALY, Colette De León Attending Clinician Hyun Flynn MD Attending Clinician Doctor Unassigned, [place] Attending Clinician Unavailable Sarah Barkley Attending Clinician Minna Mike MD Attending Clinician Lexy Monae MD Attending Clinician David Echeverria Attending Clinician [phone] MINNA MIKE Attending Clinician Unavailable Soila Villar DO Attending Clinician SOILA VILLAR Attending Clinician Unavailable HYUN FLYNN Admitting Clinician Unavailable David Echeverria Admitting Clinician [phone] SOILA VILLAR Admitting Clinician Unavailable Payers Payer Name Policy Type Policy Number Effective Date Expiration Date S ource Problems Condition Condition Condition Status Onset Resolution Last Treating Co mments Source Name Details Category Date Date Treatment Clinician Date COPD COPD Disease Active [facility] exacerbati exacerbati [facility]-15 [facility] l Diabetes Diabetes Disease Active Metho di 07-15 [facility] 00[facility]: [facility]osp[facility] 00 l Hypertensi Hypertensi Disease Active M ethodi on on 07-15 00:00: Hospita 00 l Shortness Shortness Disease Active Met h[facility] of breath of breath 07-15 st 00:[facility]: [facility]osp[facility] 00 l ACS (acute ACS (acute Disease Active 2019-02 U nivers coronary coronary 1-20 ity of syndrome[place] syndrome[place] [facility] SOB SOB Disease Active 2019-02 [facility] (shortness (shortness 1-19 it y of of breath[place] [facility] No known No known Disease Unive rs active active ity of problems problems [facility] Allergies, Adverse Reactions, Alerts Allergy Allergy [...] Active Univers ALLERGIE Class ity of S [facility] Social History Social Habit Start Date Stop Date Quantity Comments Source History of tobacco Cigarette Smoker [facility] Exposure to Not sure University of SARS-CoV-2 (event) [facility] Tobacco use and 2021-07-15 2021-07-15 Smokeless [facility] exposure 00:00:00 00:00:00 tobacco non-user Hospital Alcohol intake 2021-07-15 2021-07-15 Ex-drinker [facility] 00:[facility]00:00 (finding) Hospital Cigarettes smoked 2021-07-15 2021-07-15 [facility] current (pack per 00:00:00 00:00:00 Hospita l day) - Reported Cigarette 2019-12-28 2019-12-28 University of pack-years 00:00:00 00:00:00 [place] [facility] History SDOH 2019-12-28 2019-12-28 1 University o f Alcohol Frequency 00:00:00 00:00:00 [place] [facility] History SDOH 2019-12-28 2019-12-28 99 University o f Alcohol Std Drinks 00:00:00 00:00:00 [facility] [place] [facility] History SDLA 2019-12-28 2019-12-28 1 University o f Alcohol Binge 00:00:00 00:00:00 [facility] al Branch Sex Ass[birth year] At [birth year] [facility] 00:[facility]:00 Hospital Smoking Status Start Date Stop Date Source Smokes tobacco daily 2021-07-15 00:00:00 [facility] Unknown if ever smoked [facility] Medications Ordered Filled Start Stop Current Ordering Indication Dosage Frequency Signature Comments Components Source Medication Medication Date Date Medication? Clinician (SIG) Name Name TAKE 2021-02 No 100 TABLET 0-30 TWICE 00:00: DAILY. 00 prednisone 2021-02 No 10 mg 0-29 tablet 00:00: 00 TAKE 2021-02 No 10 TABLET BY 0-29 MOUTH TWICE 00:00: DAILY 00 Dose 2021- No Unknown 0-11 00:00: 00 Dose 2021- No Unknown 0-11 00:00: 00 Dose 2021- No Unknown 0-11 00:00: 00 ipratropium 2021-0 No 0.5 9-29 mg-albutero 00:00: l 3 mg (2.5 00 mg base)/3 mL nebulizatio n soln ipratropium 2021-0 No 0.5 9-29 mg-albutero 00:00: l 3 mg (2.5 00 mg base)/3 mL nebulizatio n soln ipratropium 2022-0 No 0.5 9-29 mg-albutero 00:00: [...] mg 9-28 capsule 00:00: 00 TAKE 1 2-0 No TABLET AT 9-26 BEDTIME. 00:00: 00 TAKE 1 2-0 No TABLET AT 9-26 BEDTIME. 00:00: 00 TAKE 1 2-0 No 100 TABLET AT 9-26 BEDTIME. 00:00: 00 TAKE 1 2-0 No TABLET AT 9-26 BEDTIME. 00:00: 00 [...] EVERY 00:00: 2 HOURS 00 NEEDED Dose 2-0 No Unknown 09-23 00:00: 00 Lantus 2022-0 No Solostar 8-16 U-100 00:00: Insulin 100 00 unit/mL (3 mL) subcutaneou s pen Dose 2-0 No Unknown 09-23 00:00: 00 Lantus 2-0 No Solostar 8-16 U-100 00:00: Insulin 100 [...] No 8-12 00:00: 00 &lt 2022-0 No 8- 00:00: 00 &lt 2022-0 No 8- 00:00: 00 Dose 2022-0 No Unknown 8-08 00:00: 00 Dose 2022-0 No Unknown 8- 00:00: 00 Dose 2022-0 No Unknown 8- 00:00: 00 Dose 2022-0 No Unknown 8-08 [...] 8-03 00:00: 00 Dose 2022-0 No Unknown 8-02 00:00: 00 &lt 2022-0 No 8-02 00:00: 00 &lt 2022-0 No 8-02 00:00: 00 &lt 2022-0 No 8-02 00:00: 00 &lt 2022-0 No 8-02 00:00: 00 Dose 2022-0 No Unknown 8-02 00:00: 00 Dose 2022-0 No Unknown 8-02 00:00: 00 &lt 2022-0 No 8-02 00:00: 00 &lt 2022-0 No 8-02 00:00: 00 &lt 2022-0 No 8-02 00:00: 00 &lt 2022-0 No 8-02 00:00: 00 Dose 2022-0 No Unknown 8- 00:00: 00 Dose 2022-0 No Unknown 8-02 00:00: 00 &lt 2022-0 No 8-02 00:00: 00 &lt 2022-0 No 8-02 00:00: 00 &lt 2022-0 No 8-02 00:00: 00 &lt 2022-0 No 8-02 00:00: 00 Dose 2022-0 No Unknown 8-02 00:00: 00 Dose 2022-0 No Unknown 8-02 00:00: 00 &lt 2022-0 No 8-02 00:00: 00 &lt 2022-0 No 8-02 00:00: 00 &lt 2022-0 No 8-02 00:00: 00 &lt 2022-0 No 8-02 00:00: 00 Dose 2022-0 No Unknown 8- 00:00: 00 Dose 2022-0 No Unknown 8- 00:00: 00 Dose 2022-0 No Unknown 8- 00:00: 00 Dose 2022-0 No Unknown 8- 00:00: 00 Dose 2022-0 No Unknown 8- 00:00: 00 &lt 2022-0 No 7-29 00:00: 00 &lt 2022-0 No 7-29 00:00: 00 &lt 2022-0 No 7-29 00:00: 00 &lt 2022-0 No 7-29 00:00: 00 Dose 2022-0 No Unknown 7-20 00:00: 00 Dose 2022-0 No Unknown 7-20 00:00: 00 Dose 2022-0 No Unknown 7-20 00:00: 00 Dose 2022-0 No Unknown 7-20 00:00: 00 Dose 2022-0 No Unknown 7-19 [...] Unknown 7- 00:00: 00 &lt 2022-0 No 7- 00:00: 00 Zoloft 50 2022-0 No 1mg [...] Unknown 7-06 00:00: 00 &lt 2022-0 No 6-29 00:00: 00 Dose 2022-0 No Unknown 6-29 00:00: 00 &lt 2022-0 No 6-29 00:00: 00 Dose 2022-0 No Unknown 6-29 00:00: 00 &lt 2022-0 No 6-29 00:00: 00 Dose 2022-0 No Unknown 6-29 00:00: 00 &lt 2022-0 No 6-29 00:00: 00 Dose 2022-0 No Unknown 6-29 00:00: 00 &lt 2022-0 No 6-24 00:00: 00 &lt 2022-0 No 6-24 00:00: 00 &lt 2022-0 No 6-24 00:00: 00 &lt 2022-0 No 6-24 00:00: 00 Zoloft 50 2022-0 No 1mg [...] Zoloft 50 2022-0 No 1mg mg tablet 621 00:00: 00 buspirone 2022-0 No mg 15 [...] 1mg mg tablet 6 00:00: 00 buspirone 2-0 No mg 15 mg 6-21 tablet 00:00: 00 Lamictal 2-0 No 1mg 100 mg 6-21 tablet 00:00: 00 quetiapine 2-0 No 51mg 25 mg 6-21 tablet 00:00: 00 &lt 2022-0 No 6-21 00:00: 00 &lt 2022-0 No 6-21 00:00: 00 &lt 2022-0 No 6-21 00:00: 00 &lt 2022-0 No 6-21 00:00: 00 &lt 2022-0 No 6-18 00:00: 00 &lt 2022-0 No 6-18 00:00: 00 &lt 2022-0 No 6-18 00:00: 00 &lt 2-0 No 6-18 00:00: 00 &lt 2022-0 No 6-18 00:00: 00 &lt 2022-0 No 6-18 00:00: 00 &lt 2022-0 No 6-18 00:00: 00 &lt 2022-0 No 6-18 00:00: 00 metoprolol 2-0 No 1mg tartrate 25 6-14 mg tablet 00:00: 00 &lt 2022-0 No 6-14 00:00: 00 metoprolol 2-0 No 1mg tartrate 25 6-14 mg tablet 00:00: 00 &lt 2022-0 No 6-14 00:00: 00 metoprolol 2-0 No 1mg tartrate 25 6-14 mg tablet 00:00: 00 &lt 2022-0 No 6-14 00:00: 00 metoprolol 2-0 No 1mg tartrate 25 6-14 mg tablet 00:00: 00 &lt 2022-0 No 6-14 00:00: 00 aspirin 2-0 Yes 81mg QD Take 81 mg Meth [...] 13:57: daily. Hospit a 05 l predniSONE 2-0 Yes 10mg QD Take 10 mg M [...] inhaler hours as needed for wheezing. ipratropium 2022-0 Yes 3mL Q.25D Take 3 mL Methodi [...] a day as needed for wheezing. fluticasone 0 Yes 1{puff} Q.5D Inhale 1 Methodi propionate [...] 3mL Q.25D Take 3 mL Methodi -albuteroL [address] (DUO-NEB) 13:57: nebulizati Ho spita 0.5-2.5 05 on 4 l mg/3 mL (four) nebulizer times a day as needed for wheezing. fluticasone 0 Yes 1{puff} Q.5D Inhale 1 Methodi propionate 6-[address] (FLOVENT 13:57: (two) Hospita HFA) 110 05 times a l mcg/actuati day. on inhaler Lantus 0 No 10(3 Solostar 6-09 mL) U-100 00:00: Insulin 100 00 unit/mL (3 mL) subcutaneou s pen &lt 2021-0 No 6-09 00:00: 00 &lt 2-0 No 6-09 00:00: 00 Lantus 2021-0 No 10(3 Solostar 6-09 mL) U-100 00:00: Insulin 100 00 unit/mL (3 mL) subcutaneou s pen &lt 2021-0 No 6-09 00:00: 00 &lt 2-0 No 6-09 00:00: 00 Lantus 2021-0 No 10(3 Solostar 6-09 mL) U-100 00:00: Insulin 100 00 unit/mL (3 mL) subcutaneou s pen &lt 2022-0 No 6-09 00:00: 00 &lt 2022-0 No 6-09 00:00: 00 Lantus 2022-0 No 10(3 Solostar 6-09 mL) U-100 00:00: Insulin 100 00 unit/mL (3 mL) subcutaneou s pen &lt 2022-0 No 6-09 00:00: 00 &lt 2022-0 No 6-09 00:00: 00 &lt 2022-0 No 6-06 00:00: [...] mcg/actuati 00:00: on aerosol 00 inhaler Trelegy 0 No 1mcg Ellipta 100 5-31 mcg-62.5 00:00: mcg-25 mcg 00 powder for inhalation clopidogrel 0 No 1mg 75 mg 5-31 tablet 00:00: 00 Dose 2021-0 No Unknown 5-31 00:00: 00 albuterol 2021-0 No 3/3 mL sulfate 2.5 5-31 (0.083 mg/3 mL 00:00: %) (0.083 %) 00 solution for nebulizatio n ipratropium 0 No 3mg 0.5 5-31 base)/3 mg-albutero 00:00: mL l 3 mg (2.5 00 mg base)/3 mL nebulizatio n soln ProAir HFA 0 No 2mcg/ac 90 5-31 tuation mcg/actuati 00:00: on aerosol 00 inhaler Trelegy 0 No 1mcg Ellipta 100 5-31 mcg-62.5 00:00: mcg-25 mcg 00 powder for inhalation clopidogrel 2021-0 No 1mg 75 mg 5-31 tablet 00:00: 00 Dose 2021-0 No Unknown 5-31 00:00: 00 albuterol 2021-0 No 3/3 mL sulfate 2.5 5-31 (0.083 mg/3 mL 00:00: %) (0.083 %) 00 solution for nebulizatio n ipratropium 2022-0 No 3mg 0.5 5-31 base)/3 mg-albutero 00:00: [...] tablet,exte 00 nded release 12 hr albuterol 2021-0 No 3/3 mL sulfate 2.5 [...] 75 mg 5-31 tablet 00:00: 00 Dose 2-0 No Unknown 5-31 00:00: 00 albuterol 2021-0 No 3/3 mL sulfate 2.5 5-31 (0.083 mg/3 mL 00:00: %) (0.083 %) 00 solution for nebulizatio n ipratropium 2021-0 No 3mg 0.5 5-31 base)/3 mg-albutero 00:00: mL l 3 mg (2.5 00 mg base)/3 mL nebulizatio n soln buspirone 2021-0 No mg 15 mg 5-26 tablet 00:00: 00 buspirone 2022-0 No mg 15 mg 5-26 tablet 00:00: 00 buspirone 2022-0 No mg 15 mg 5-26 tablet 00:00: 00 buspirone 2022-0 No mg 15 mg 5-26 tablet 00:00: 00 Zoloft 50 2022-0 No [...] 2-0 No Unknown 5-02 00:00: 00 Dose 2-0 No Unknown 5-02 00:00: 00 Dose 2022-0 No Unknown 5-02 00:00: 00 Dose 2-0 No Unknown 5-02 00:00: 00 Dose 2-0 No Unknown 5-02 00:00: 00 ProAir HFA 2-0 No 2mcg/ac 90 5-02 tuation mcg/actuati 00:00: on aerosol 00 inhaler Trelegy 2-0 No 1mcg Ellipta 100 5-02 mcg-62.5 00:00: mcg-25 mcg 00 powder for inhalation Dose 2-0 No Unknown 5-02 00:00: 00 Dose 2-0 No Unknown 5-02 00:00: 00 Dose 2-0 No Unknown 5-02 00:00: 00 Dose 2-0 No Unknown 5-02 00:00: 00 Dose 2-0 No Unknown 5-02 00:00: 00 ProAir HFA 2-0 No 2mcg/ac 90 5-02 tuation mcg/actuati 00:00: on aerosol 00 inhaler Trelegy 2021-0 No 1mcg Ellipta 100 5-02 mcg-62.5 00:00: mcg-25 mcg 00 powder for inhalation Dose 2-0 No Unknown 5-02 00:00: 00 Dose 2-0 No Unknown 5-02 00:00: 00 Dose 2-0 No Unknown 5-02 00:00: 00 Dose 2-0 No Unknown 5-02 00:00: 00 Dose 2-0 No Unknown 5-02 00:00: 00 ProAir HFA 2-0 No 2mcg/ac 90 5-02 tuation mcg/actuati 00:00: on aerosol 00 inhaler Trelegy 2021-0 No 1mcg Ellipta 100 5-02 mcg-62.5 00:00: mcg-25 mcg 00 powder for inhalation Dose 2-0 No Unknown 5-02 00:00: 00 Dose 2-0 No Unknown 5-02 00:00: 00 Dose 2-0 No Unknown 5-02 00:00: 00 Dose 2-0 No Unknown 5-02 00:00: 00 Dose 2-0 No Unknown 5-02 00:00: 00 Zoloft 50 [...] Zoloft 50 2022-0 No 1mg mg tablet 4- 00:00: 00 Lamictal 2022-0 No 1mg 100 [...] 3-23 00:00: 00 Dose 2022-0 No Unknown 3-21 00:00: 00 Dose 2022-0 No Unknown 3-21 00:00: 00 Dose 2022-0 No Unknown 3-21 00:00: 00 Dose 2022-0 No Unknown 3-21 00:00: 00 Dose 2022-0 No Unknown 3-19 00:00: 00 Dose 2022-0 No Unknown 3-19 00:00: 00 Dose 2022-0 No Unknown 3-19 00:00: 00 Dose 2022-0 No Unknown 3-19 00:00: 00 clopidogrel 2-0 [...] mg base)/3 mL nebulizatio n soln Dose 2021-0 No Unknown 3-14 00:00: 00 cefdinir 2-0 No mg 300 mg 3-14 capsule 00:00: [...] 1,000 mg 3-12 tablet 00:00: 00 metformin 2-0 No 1mg 1,000 mg 3-12 tablet 00:00: 00 metformin 2-0 No 1mg 1,000 [...] 2022-0 No Unknown 3-11 00:00: 00 metformin 2-0 [...] 100 mg 1-13 tablet 00:00: 00 buspirone 2-0 No 1mg 15 mg 1-13 tablet 00:00: 00 Daliresp 2-0 No 1mcg 500 mcg 1-07 tablet 00:00: [...] 75 mg 1-05 tablet 00:00: 00 Dose 1-1 No Unknown 1-24 00:00: 00 Dose 1-1 No Unknown 1-24 00:00: 00 Dose 1-1 No Unknown 1-24 00:00: 00 Dose 1-1 No Unknown 1-24 00:00: 00 Dose 1-1 No Unknown 1-17 00:00: 00 Dose 1-1 No Unknown 1-17 00:00: 00 Dose 1-1 No Unknown 1-17 00:00: 00 Dose 1-1 No Unknown 1-17 00:00: 00 Lamictal 1-1 No 1mg 100 mg 1-11 tablet 00:00: 00 Dose 1-1 No Unknown 1-11 00:00: 00 trazodone 1-1 No 15mg 100 mg 1-11 tablet 00:00: 00 buspirone 1-1 No 1mg 15 mg 1-11 tablet 00:00: 00 Dose 1-1 No Unknown 1-11 00:00: 00 Lamictal 1-1 No 1mg 100 mg 1-11 tablet 00:00: 00 Dose 1-1 No Unknown 1-11 00:00: 00 trazodone 1-1 No 15mg 100 mg 1-11 tablet 00:00: 00 buspirone 1-1 No 1mg 15 mg 1-11 tablet 00:00: 00 Dose 2020-1 No Unknown 1-11 00:00: 00 Lamictal 2020- No 1mg 100 mg 1-11 tablet 00:00: 00 Dose 2020- No Unknown 1-11 00:00: 00 trazodone 2020- No 15mg 100 mg 1-11 tablet 00:00: 00 buspirone 2020- No 1mg 15 mg 1-11 tablet 00:00: 00 Dose 2020- No Unknown 1-11 00:00: 00 Lamictal 2020- No 1mg 100 mg 1-11 tablet 00:00: 00 Dose 2020- No Unknown 1-11 00:00: 00 trazodone 2020- No 15mg 100 mg 1-11 tablet 00:00: 00 buspirone 2020-02 No 1mg 15 mg 1-11 tablet 00:00: 00 Dose 2020- No Unknown 1-11 00:00: 00 Tradjenta 5 2020-02 No 1mg mg tablet 0-21 00:00: 00 metoprolol 2020-02 No 1mg tartrate 25 0-21 mg tablet 00:00: 00 atorvastati 2020-02 No 1mg n 80 mg 0-21 tablet 00:00: 00 Tradjenta 5 2020- No 1mg mg tablet 0-21 00:00: 00 Tradjenta 5 2020-02 No 1mg mg tablet 0-21 00:00: 00 metoprolol 2020- No 1mg tartrate 25 0-21 mg tablet [...] mg 0-08 tablet 00:00: 00 Prozac 20 2021-1 No 1mg mg capsule 0-08 00:00: 00 Dose 1-0 No Unknown 9 00:00: 00 Dose 1-0 No Unknown 9 00:00: 00 Dose 1-0 No Unknown 9 00:00: 00 Dose 1-0 No Unknown 10-28 00:00: 00 Dose 1-0 No Unknown 10-28 00:00: 00 Dose 1-0 No Unknown 10-28 00:00: 00 Dose 1-0 No Unknown 9 00:00: 00 Dose 2021-0 No Unknown 9 00:00: 00 Lamictal 2021-0 No 1mg 100 mg 9-13 tablet 00:00: 00 trazodone 1-0 No 15mg 100 mg 9-13 tablet 00:00: 00 buspirone 2021-0 No 1mg 15 mg 9-13 tablet 00:00: 00 Prozac 20 1-0 No 1mg mg capsule 9- 00:00: 00 Lamictal 2021-0 No 1mg 100 [...] mg 9-13 tablet 00:00: 00 Prozac 20 2021-0 No 1mg mg capsule 9-13 00:00: 00 [...] Prozac 20 1-0 No 1mg mg capsule 830 00:00: 00 Lamictal 2021-0 No 1mg 100 mg 8-30 tablet 00:00: 00 trazodone 2021-0 No 15mg 100 mg 8-30 tablet 00:00: 00 buspirone 2021-0 No 1mg 15 mg 8-30 tablet 00:00: 00 Prozac 20 1-0 No 1mg mg capsule 8 00:00: 00 Lamictal 1-0 No 1mg 100 mg 8-30 tablet 00:00: 00 trazodone 1-0 No 15mg 100 mg 8-30 tablet 00:00: 00 buspirone 1-0 No 1mg 15 mg 8-30 tablet 00:00: 00 Prozac 20 1-0 No 1mg mg capsule 8 00:00: 00 Lamictal 1-0 No 1mg 100 mg 8-30 tablet 00:00: 00 trazodone 1-0 No 15mg 100 mg 8-30 tablet 00:00: 00 buspirone 1-0 No 1mg 15 mg 8-30 tablet 00:00: 00 Prozac 20 1-0 No 1mg mg capsule 8 00:00: 00 Lamictal 2021-0 No 1mg 100 mg 8-02 tablet 00:00: 00 trazodone 1-0 No 15mg 100 mg 8-02 tablet 00:00: 00 buspirone 2021-0 No 1mg 15 mg 8-02 tablet 00:00: 00 Prozac 20 1-0 No 1mg mg capsule 8 00:00: 00 Lamictal 2021-0 No 1mg 100 mg 8-02 tablet 00:00: 00 trazodone 2021-0 No 15mg 100 mg 8-02 tablet 00:00: 00 buspirone 2021-0 No 1mg 15 mg 8-02 tablet 00:00: 00 Prozac 20 1-0 No 1mg mg capsule 8 00:00: 00 Lamictal 2021-0 No 1mg 100 mg 8-02 tablet 00:00: 00 trazodone 2021-0 No 15mg 100 mg 8-02 tablet 00:00: 00 buspirone 2021-0 No 1mg 15 mg 8-02 tablet 00:00: 00 Prozac 20 1-0 No 1mg mg capsule 09-09 00:00: 00 Lamictal 2021-0 No 1mg 100 mg 8-02 tablet 00:00: 00 trazodone 2021-0 No 15mg 100 mg 8- tablet 00:00: 00 buspirone 1-0 No 1mg 15 mg 8- tablet 00:00: 00 Prozac 20 1-0 No 1mg mg capsule 09-09 00:00: 00 Dose 1-0 No Unknown 7 00:00: 00 Dose 1-0 No Unknown 09-03 00:00: 00 Dose 1-0 No Unknown 7 00:00: 00 Dose 1-0 No Unknown 09-03 00:00: 00 Flovent HFA 1-0 No 1mcg/ac [...] 1-0 No Unknown 7-08 00:00: 00 Dose 1-0 No Unknown 7-08 00:00: 00 metoprolol 2021-0 No 1mg tartrate 25 7-08 mg tablet 00:00: 00 atorvastati 1-0 No 1mg n 80 mg 7-08 tablet 00:00: 00 Dose 1-0 No Unknown 7-08 00:00: 00 Flovent HFA 1-0 No 1mcg/ac 110 7-08 tuation mcg/actuati 00:00: on aerosol 00 inhaler Dose 1-0 No Unknown 7-08 00:00: 00 Dose 2021-0 No Unknown 7-08 00:00: 00 metoprolol 1-0 No 1mg tartrate 25 7-08 mg tablet 00:00: 00 atorvastati 1-0 No 1mg n 80 mg 7-08 tablet 00:00: 00 Dose 2021-0 No Unknown 7-08 00:00: 00 Flovent HFA 1-0 No 1mcg/ac 110 7-08 tuation mcg/actuati 00:00: on aerosol 00 inhaler Dose 1-0 No Unknown 7-08 00:00: 00 Dose 1-0 No Unknown 7-08 00:00: 00 metoprolol 1-0 No 1mg tartrate 25 7-08 mg tablet 00:00: 00 atorvastati 1-0 No 1mg n 80 mg 7-08 tablet 00:00: 00 Dose 1-0 No Unknown 7-08 00:00: 00 Lamictal 1-0 No 1mg 100 [...] mg 7-05 tablet 00:00: 00 Prozac 20 2021-0 No 1mg mg capsule 7-05 00:00: 00 Lamictal 2021-0 No 1mg 100 mg 7-05 tablet 00:00: 00 trazodone 2021-0 No 15mg 100 mg 7-05 tablet 00:00: 00 buspirone 2021-0 No 1mg 15 mg 7-05 tablet 00:00: 00 Prozac 20 2021-0 No 1mg mg capsule 7-05 00:00: 00 Lamictal 2021-0 No 1mg 100 mg 7-05 tablet 00:00: 00 trazodone 2021-0 No 15mg 100 mg 7-05 tablet 00:00: 00 buspirone 2021-0 No 1mg 15 mg 7-05 tablet 00:00: 00 Prozac 20 2021-0 No 1mg mg capsule 7-05 00:00: 00 Trelegy 2021-0 No 1mcg Ellipta 100 7-02 mcg-62.5 00:00: mcg-25 mcg 00 powder for inhalation Trelegy 2021-0 No 1mcg Ellipta 100 7-02 mcg-62.5 00:00: mcg-25 mcg 00 powder for inhalation Trelegy 2021-0 No 1mcg Ellipta 100 7-02 mcg-62.5 00:00: mcg-25 mcg 00 powder for inhalation Trelegy 2021-0 No 1mcg Ellipta 100 7-02 mcg-62.5 00:00: mcg-25 mcg 00 powder for inhalation Lamictal 2021-0 No 1mg 100 mg 5-25 tablet 00:00: 00 trazodone 2021-0 No 15mg 100 mg 5-25 tablet 00:00: 00 buspirone 2021-0 No 1mg 15 mg 5-25 tablet 00:00: 00 Prozac 20 2021-0 No 1mg mg capsule 5-25 00:00: 00 Lamictal 2021-0 No 1mg 100 mg 5-25 tablet 00:00: 00 trazodone 2021-0 No 15mg 100 mg 5-25 tablet 00:00: 00 buspirone 2021-0 No 1mg 15 mg 5-25 tablet 00:00: 00 Prozac 20 2021-0 No 1mg mg capsule 5-25 00:00: 00 Lamictal 2021-0 No 1mg 100 mg 5-25 tablet 00:00: 00 trazodone 2021-0 No 15mg 100 mg 5-25 tablet 00:00: 00 buspirone 2021-0 No 1mg 15 mg 5-25 tablet 00:00: 00 Prozac 20 2021-0 No 1mg mg capsule 5-25 00:00: 00 Lamictal 2021-0 No 1mg 100 mg 5-25 tablet 00:00: 00 trazodone 2021-0 No 15mg 100 mg 5-25 tablet 00:00: 00 buspirone 1-0 No 1mg 15 mg 5-25 tablet 00:00: 00 Prozac 20 1-0 No 1mg mg capsule 5-25 00:00: 00 Lamictal 1-0 No 1mg 100 mg 4-23 tablet 00:00: 00 Dose 1-0 No Unknown 4-23 00:00: 00 trazodone 2021-0 [...] 1mg mg capsule 4-23 00:00: 00 Dose 2021-0 No Unknown 4-07 00:00: 00 Dose 2021-0 No Unknown 4-07 00:00: 00 Anoro 1-0 [...] 2021-0 No Unknown 4-07 00:00: 00 Dose 1-0 No Unknown 4-07 00:00: 00 Dose 2021-0 No Unknown 4-07 00:00: 00 Anoro 1-0 No 1mcg/ac Ellipta 4-07 tuation 62.5 mcg-25 00:00: mcg/actuati 00 on powder for inhalation Dose 2020-0 No Unknown 4-07 00:00: 00 Dose 2021-0 No Unknown 4-07 00:00: 00 Dose 2021-0 No Unknown 4-07 00:00: 00 Dose 2021-0 No Unknown 4-07 00:00: 00 Dose 1-0 [...] 2021-0 No Unknown 4-07 00:00: 00 Dose 1-0 No Unknown 4-07 00:00: 00 Dose 1-0 No Unknown 4-07 00:00: 00 buspirone 1-0 No 1mg 15 mg 3-30 tablet 00:00: 00 buspirone 1-0 No 1mg 15 mg 3-30 tablet 00:00: 00 buspirone 1-0 No 1mg 15 mg 3-30 tablet 00:00: [...] prednisone 2020-1 No mg 5 mg tablet 124 00:00: 00 Anoro 2020-1 No 1mcg/ac Ellipta 1-24 tuation 62.5 mcg-25 00:00: mcg/actuati 00 on powder for inhalation prednisone 2020-1 No mg 5 mg tablet 1-24 00:00: 00 prednisone 2020-1 No 1mg 20 mg 1-24 tablet 00:00: 00 prednisone 2019-02 No 1mg 20 mg 1-24 tablet 00:00: 00 Anoro 2019-02 No 1mcg/ac Ellipta 1-24 tuation 62.5 mcg-25 00:00: mcg/actuati 00 on powder for inhalation prednisone 2019-02 No mg 5 mg tablet 1-24 00:00: 00 prednisone 2019-02 No 1mg 20 mg 1-24 tablet 00:00: 00 Anoro 2019-02 No 1mcg/ac Ellipta 1-24 tuation 62.5 mcg-25 00:00: mcg/actuati 00 on powder for inhalation prednisone 2019-02 No mg 5 mg tablet 1-24 00:00: 00 prednisone 2019-02 No 1mg 20 mg 1-24 tablet 00:00: 00 metFORMIN 2019-02 Yes 500mg Take 500 Uni vers 500 mg 1-21 mg by ity of tablet 20:14: mouth 2 [place] [id number] (two) Medical times Branch daily with meals. traZODone 2019-02 Yes 150mg Take 150 Uni vers 100 mg 1-21 mg by ity of tablet 20:14: mouth at [place] [address] bedtime. Medical Branch busPIRone 2019-02 Yes 7.5mg Take 7.5 Uni vers 7.5 mg 1-21 mg by ity of tablet 20:14: mouth 2 [place] [address] (two) Medical times Branch daily. FLUoxetine 2019-02 Yes 20mg Take 20 mg U nivers 20 mg 1-21 by mouth ity of capsule 20:14: daily. [place] [address] Medical Branch lamoTRIgine 2019-02 Yes 100mg Take 100 U nivers 100 mg 1-21 mg by ity of tablet 20:14: mouth 2 [place] [address] (two) Medical times Branch daily. fluticasone 2019-02 Yes 1{puff} Inhale 1 Univers propionate 1-21 Puff 2 ity of 44 20:14: (two) [place] mcg/actuati 09 times Medical on inhaler daily. Branch albuterol 2019-02 Yes 2{puff} Inhale 2 U nivers (PROVENTIL 1-21 Puffs ity of HFA) 90 20:14: every 6 [place] mcg/actuati 09 (six) Medical on inhaler hours as Branc h needed for Wheezing or Shortness of Breath. atorvastati 2019-02 Yes 80mg Take 80 mg Univers n (LIPITOR) 1-21 by mouth ity of 80 mg 20:14: at [place] tablet bedtime. Medical Branch mupirocin 2 2019-02 Yes Apply to [facility] destiny % ointment 1-21 area(s) 2 ity of 20:14: (two) [place] times Medical daily. Branch metoprolol 2019-02 Yes [...] ity of tablet 20:14: mouth at [place] bedtime. Medical Branch busPIRone 2019-02 Yes 7.5mg [...] area(s) 2 ity of 20:14: (two) [place] times Medical daily. Branch metoprolol 2019-02 Yes [...] ity of tablet 20:14: mouth at [place] bedtime. Medical Branch busPIRone 2019-02 Yes 7.5mg [...] mouth ity of 80 mg 20:14: at [facility] bedtime. Medical Branch mupirocin 2 2019-02 Yes Apply to Un destiny % ointment 1-21 area(s) 2 ity of 20:14: (two) [place] [address] times Medical daily. Branch metoprolol 2019-02 Yes [...] Until Discontinu ed, Routine clopidogreL 2019-02 Yes [id number] 75mg Take 1 [facility] 75 mg 1-21 tablet by ity of tablet 00:00: mouth [place] 00 daily. Medical Branch aspirin 81 2019-02 Yes [id number] 81mg Take 1 [facility] mg chewable 1-21 tablet by ity of tablet 00:00: mouth [place] 00 daily. Medical Branch predniSONE 2019-02 Yes [id number] 40mg Take 2 U nivers 20 mg 1-21 tablets by ity of tablet 00:00: mouth [place] 00 daily. Medical Branch clopidogreL 2019-02 Yes [id number] 75mg Take 1 [facility] 75 mg 1-21 tablet by ity of tablet 00:00: mouth [place] 00 daily. Medical Branch aspirin 81 2019-02 Yes [id number] 81mg Take 1 [facility] mg chewable 1-21 tablet by ity of tablet 00:00: mouth [place] 00 daily. Medical Branch predniSONE 2019-02 Yes [id number] 40mg Take 2 U nivers 20 mg 1-21 tablets by ity of tablet 00:00: mouth [place] 00 daily. Medical Branch aspirin 81 2019-02 Yes [id number] 81mg Take 1 [facility] mg chewable 1-21 tablet by ity of tablet 00:00: mouth [place] 00 daily. Medical Branch clopidogreL 2019-02- No 75mg Take 75 mg [facility] 75 mg -12-28 by mouth ity of tablet 22:51: 00:00 daily. [place] 35 :00 Medical Branch clopidogreL 2019-02- No Oral, Univ ers (PLAVIX) 02-27- TITRATE - ity o f tablet 21:25: 21:25 FOR [place] 13 :13 PROCEDURE Medical USE, 1 Branch dose, Starting Wed12/29/19 at 1525, Until Wed12/29/19 at 1525, Routine ticagrelor 2019-02- No Oral, Unive rs (BRILINTA) -28 12- TITRATE - ity of tablet 20:57: 20:57 FOR [place] 39 :39 PROCEDURE Medical USE, 1 Branch dose, Starting 12/29/19 at 1457, Until 12/29/19 at 1457, Routine heparin 2019-02- No Slow IV Univer s 1,000 02-27 Push, ity of unit/mL 20:57: 20:57 TITRATE - [place] injection 02 :02 FOR Medical PROCEDURE Branch USE, 1 dose, Starting 12/29/19 at 1457, Until Wed12/29/19 [...] Yes 20mg 20 mg, Unive rs (PROZAC) 120 Oral, ity of capsule 20 15:00: DAILY, [place] mg 00 First dose Medical on Fri Branch 12/29/19 at 0900, Until Discontinu ed, Routine mupirocin 2019-02 Yes Univers (BACTROBAN 1-20 ity of OINT) 2 % 14:30: [place] skin 00 Medical ointment Branch Sliding 2019-02 Yes Subcutaneo Univ ers Scale 1-20 us, TID ity of Insulin - 03:00: MEALS+HS, Nabil as Aspart 00 First dose Medical (NOVOLOG) + on [facility] Branch Fsbg 12/28/19 Testing at 2100, Until Discontinu ed, Routine lamoTRIgine 2019-02 Yes 100mg 100 mg, Un destiny (LAMICTAL) 1-20 Oral, BID, ity of tablet 100 02:00: First dose [place] mg 00 on [facility] Medical 12/28/19 Branch at 2000, Until Discontinu ed, Routine predniSONE 2019-02 Yes [id number] 40mg Take 2 U nivers 20 mg 1-20 tablets by ity of tablet 00:00: mouth [place] 00 daily. Medical Branch clopidogreL 2019-02 Yes [id number] 75mg Take 1 Univers 75 mg 1-20 tablet by ity of tablet 00:00: mouth [place] 00 daily. Medical Branch predniSONE 2019-02 2020- No [id number] 40mg Take 2 Univers 20 mg 1-20 -20 tablets by ity of tablet 00:00: 00:00 mouth [place] 00 :00 daily. Medical Branch predniSONE 2019-02 2020- No [id number] 40mg Take 2 Univers 20 mg 1-20 -19 tablets by ity of tablet 00:00: 00:00 mouth [place] 00 :00 daily for Medical 4 days. Branch atorvastati 2019-02 2020- No 40mg 40 mg, Uni vers n (LIPITOR) 02-26 Oral, QPM, i ty of tablet 40 23:00: 02:01 First dose [place] mg 00 :46 on [facility] Medical 12/28/19 Branch at 1700, [...] 12/28/19 Bran ch mL at 1245, Routine
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 : DEJAN GONSALEZ Saline 2019-02 2020- No 6mL 6 mL, Univers Bubble 02-26 Injection, ity of Study 17:33: 22:27 SEE-INSTRU [place] 16 :16 CTIONS, 2 Medical doses, Branch Starting [facility] 12/28/19 at 1133, Until Wed12/29/19 at 1627, Routine Saline 2019-02 Yes 6mL 6 mL, Univers Bubble 02-26 Injection, ity of Study 17:33: SEE-INSTRU [place] 14 CTIONS, 2 Medical doses, Branch Starting [facility] 12/28/19 at 1133, Until Discontinu ed, Routine clopidogreL 2019-02 Yes 75mg 75 mg, Univ ers (PLAVIX) 02-26 Oral, ity of tablet 75 15:00: DAILY, [place] mg 00 First dose Medical on [facility] Branch 12/28/19 at 0900, Until Discontinu ed, Routine
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 : LEXY MONAE aspirin 2019-02 Yes 81mg 81 mg, Univers chewable 02-26 Oral, ity of tablet 81 15:00: DAILY, [place] mg 00 First dose Medical on [facility] Branch 12/28/19 at 0900, Until Discontinu ed, Routine predniSONE 2019-02 2020- No 40mg 40 mg, Univ ers (DELTASONE) 02-26 Oral, ity of tablet 40 15:00: 14:59 DAILY, 5 [place] as mg 00 :00 doses, Medical First dose Branch on [facility] 12/28/19 at 0900, Last dose on Wed01/01/20 at 0900, Routine aspirin 2019-02 2020- No 324mg 324 mg, Unive rs chewable 02-26 Oral, ity of tablet 324 15:00: 08:41 DAILY, [place] mg 00 :12 First dose Medical on [facility] Branch 12/28/19 at 0900, Until Discontinu ed, Routine metoprolol 2019-02 Yes 12.5mg 12.5 mg, U nivers tartrate 02-26 Oral, BID, ity o f (LOPRESSOR) 14:00: First dose [place] half tablet 00 on [facility] Medica l 12.5 mg 12/28/19 Branch at 0800, Until Discontinu ed, Routine heparin 2019-02- No 12U/kg/ 12 Univer s 25,000 02-26-20 h Units/kg/h ity of Units/250 12:55: 22:27 [...] Rang e, Dosing and Testing: &nbs p;FOR [place], [facility], AND [facility] ONLY &nbs p; - aPTT < [...] of 0.02 % 10:00: , Q4H, [place] nebulizer 00 First dose Medi piedad solution [...] IV ity of (D50W) 08:37: Push, PRN, [place] injection 06 Starting Medica l 25 mL [place] Branch 12/28/19 at 0237, Until Discontinu ed, ELOY, Blood Glucose < or = 70 mg/dL and patient is unable to swallow or has mental status changes. acetaminoph 2019-02 Yes 650mg 650 mg, Un destiny en 02-26 Oral, ity of (TYLENOL) 08:36: Q6HPRN, [place] tablet 650 38 Starting Medic al mg [...] 350 05:00: 05:00 s, ONCE, 1 [place] BULK-100 00 :00 dose, Wed Medica l mL) 12/27/19 Branch injection at 2300, 100 mL Routine methylPREDN 2019-02- No 40mg 40 mg, IV Univers ISolone sod 02-26 Piggyback, i ty of succ 02:45: 01:47 ONCE, 1 [place] (SOLU-MEDRO 00 :00 dose, Wed Med ical L (PF)) 12/27/19 Branch injection at 2045, 40 mg STAT metoprolol 2019-02 2020- No [id number] 12.5mg Take 0.5 Univers tartrate 25 02-26 tablets by i ty of mg tablet 00:00: 00:00 mouth 2 [place] 00 :00 (two) Medical times Branch daily. albuterol-i 2019-02 2020- No [id number] 1{puff} Inhale 1 Univers pratropium 02-26 Puff 4 ity of 20-100 00:00: 00:00 (four) [place] mcg/actuati 00 :00 times Medical on inhaler daily. Branch metoprolol 2019-02 2020- No [id number] 12.5mg Take 0.5 Univers tartrate 25 02-26 tablets by i ty of mg tablet 00:00: 00:00 mouth 2 [place] 00 :00 (two) Medical times Branch daily. metoprolol 2019-02 2020- No [id number] 12.5mg Take 0.5 Univers tartrate 25 02-26 tablets by i ty of mg tablet 00:00: 00:00 mouth 2 [place] 00 :00 (two) Medical times Branch daily. Flovent HFA 2019-02 No 2mcg/ac 44 02-25 tuation mcg/actuati 00:00: on aerosol 00 inhaler mupirocin 2 2019- No 1% % topical 1-18 ointment 00:00: 00 clopidogrel 2020-1 No 1mg 75 mg 1-18 tablet 00:00: 00 metformin 2020-1 No 1mg 500 mg 1-18 tablet 00:00: 00 metoprolol 2020-1 No 1mg tartrate 25 1-18 mg tablet 00:00: 00 metoprolol 2020-1 No 1mg tartrate 25 1-18 mg tablet 00:00: 00 atorvastati 2020-1 No 1mg n 80 mg 1-18 tablet 00:00: 00 Flovent HFA 2020-1 No 2mcg/ac 44 1-18 tuation mcg/actuati 00:00: on aerosol 00 inhaler mupirocin 2 2019-1 No 1% % topical 1-18 ointment 00:00: 00 clopidogrel 2020-1 No 1mg 75 mg 1-18 tablet 00:00: 00 metformin 2020-1 No 1mg 500 mg 1-18 tablet 00:00: 00 metoprolol 2020-1 No 1mg tartrate 25 1-18 mg tablet 00:00: 00 metoprolol 2020-1 No 1mg tartrate 25 1-18 mg tablet 00:00: 00 atorvastati 2020-1 No 1mg n 80 mg 1-18 tablet 00:00: 00 Flovent HFA 2020-1 No 2mcg/ac 44 1-18 tuation mcg/actuati 00:00: on aerosol 00 inhaler mupirocin 2 2019-1 No 1% % topical 1-18 ointment 00:00: 00 clopidogrel 2020-1 No 1mg 75 mg 1-18 tablet 00:00: 00 metformin 2020-1 No 1mg 500 mg 1-18 tablet 00:00: 00 metoprolol 2020-1 No 1mg tartrate 25 1-18 mg tablet 00:00: 00 metoprolol 2020-1 No 1mg tartrate 25 1-18 mg tablet 00:00: 00 atorvastati 2020-1 No 1mg n 80 mg 1-18 tablet 00:00: 00 Flovent HFA 2020-1 No 2mcg/ac 44 1-18 tuation mcg/actuati 00:00: [...] 100 mg 1-16 tablet 00:00: 00 buspirone 2019-1 No 1mg 7.5 mg 1-16 tablet 00:00: 00 trazodone 2019-1 No 15mg 100 mg 1-16 tablet 00:00: 00 Prozac 20 2019- No 1mg mg capsule 1-16 00:00: 00 Lamictal 2019-1 No 1mg 100 mg 1-16 tablet 00:00: 00 buspirone 2019-1 No 1mg 7.5 mg 1-16 tablet 00:00: 00 trazodone 2019-1 No 15mg 100 mg 1-16 tablet 00:00: 00 Prozac 20 2019-1 No 1mg mg capsule 1-16 00:00: 00 Lamictal 2019-1 No 1mg 100 mg 1-16 tablet 00:00: 00 buspirone 2019-1 No 1mg 7.5 mg 1-16 tablet 00:00: 00 trazodone 2019-1 No 15mg 100 mg 1-16 tablet 00:00: 00 Prozac 20 2019-1 No 1mg mg capsule 1-16 00:00: 00 Lamictal 2019-1 No 1mg 100 mg 1-16 tablet 00:00: 00 buspirone 2019-1 No 1mg 7.5 mg 1-16 tablet 00:00: 00 trazodone 2019-1 No 15mg 100 mg 1-16 tablet 00:00: 00 Prozac 20 2019-1 No 1mg mg capsule 1-16 00:00: 00 metoprolol 2019-1 No 1mg tartrate 25 0-28 mg tablet 00:00: 00 metoprolol 2019-1 No 1mg tartrate 25 0-28 mg tablet 00:00: 00 metoprolol 2019-1 No 1mg tartrate 25 0-28 mg tablet 00:00: 00 metoprolol 2019-1 No 1mg tartrate 25 0-28 mg tablet 00:00: 00 azithromyci 2019-1 No mg n 250 mg 0-20 tablet 00:00: 00 prednisone 2020-1 No mg 20 mg 0-20 tablet 00:00: 00 prednisone 2019-1 No mg 5 mg tablet 0-20 00:00: 00 azithromyci 2019-1 No mg n 250 mg 0-20 tablet 00:00: 00 prednisone 2019-1 No mg 20 mg 0-20 tablet 00:00: 00 prednisone 2019- No mg 5 mg tablet 0-20 00:00: 00 azithromyci 2019-1 No mg n 250 mg 0-20 tablet 00:00: 00 prednisone 2019-1 No mg 20 mg 0-20 tablet 00:00: 00 prednisone 2019- No mg 5 mg tablet 0-20 00:00: 00 azithromyci 2019-1 No mg n 250 mg 0-20 tablet 00:00: 00 prednisone 2019-1 No mg 20 mg 0-20 tablet 00:00: [...] No 324mg 324 mg, Unive rs chewable 07-26-18 Oral, ity of tablet 324 22:30: 21:42 ONCE, 1 [place] as mg 00 :00 dose, [facility] 07/27/19 at Branch 1730, Routine buspirone 2020-0 [...] prednisone 2020-0 No 1mg 5 mg tablet 1-16 00:00: 00 ipratropium 2020-0 No 3mg 0.5 1-16 base)/3 mg-albutero 00:00: mL l 3 mg (2.5 00 mg base)/3 mL nebulizatio n soln prednisone 2020-0 No 1mg 5 mg tablet 1-16 00:00: 00 ipratropium 2020-0 No 3mg 0.5 1-16 base)/3 mg-albutero 00:00: mL l 3 mg (2.5 00 mg base)/3 mL nebulizatio n soln prednisone 2020-0 No 1mg 5 mg tablet 1-16 00:00: 00 ipratropium 2020-0 No 3mg 0.5 1-16 base)/3 mg-albutero 00:00: mL l 3 mg (2.5 00 mg base)/3 mL nebulizatio n soln prednisone 2020-0 No 1mg 5 mg tablet 1-16 00:00: 00 ipratropium 2020-0 No 3mg 0.5 [...] 75 mg 2-19 tablet 00:00: 00 metoprolol 2018- No 1mg tartrate 25 2-19 mg tablet 00:00: 00 buspirone 2018- No 1mg [...] 7.5 mg 0-01 tablet 00:00: 00 trazodone 2018-1 No 1mg 100 mg 0-01 tablet 00:00: 00 trazodone 2019-1 No 15mg 100 mg 0-01 tablet 00:00: 00 Prozac 10 2018-1 No 1mg mg capsule 0-01 00:00: 00 Lamictal 2019-1 No 1mg 100 mg 0-01 tablet 00:00: 00 buspirone 2019-1 No 1mg 7.5 mg 0-01 tablet 00:00: 00 trazodone 2018- No 1mg 100 mg 0-01 tablet 00:00: 00 trazodone 2018-1 No 15mg 100 mg 0-01 tablet 00:00: 00 Prozac 10 2018- No 1mg mg capsule 0-01 00:00: 00 Lamictal 2018-1 No 1mg 100 mg 0-01 tablet 00:00: 00 Lamictal 2018-1 No 1mg 100 mg 0-01 tablet 00:00: 00 buspirone 2018-1 No 1mg 7.5 mg 0-01 tablet 00:00: 00 trazodone 2018- No 1mg 100 mg 0-01 tablet 00:00: 00 buspirone 2018-1 No 1mg 7.5 mg 0-01 tablet 00:00: 00 trazodone 2018-1 No 15mg 100 mg 0-01 tablet 00:00: 00 Prozac 2018- No 1mg mg capsule 0-01 00:00: 00 trazodone 2018-1 No 1mg 100 mg 0-01 tablet 00:00: 00 trazodone 2018- No 15mg 100 mg 0-01 tablet 00:00: 00 Prozac 2018- No 1mg mg capsule 0-01 00:00: 00 [...] Prozac 10 2019-0 No 1mg mg capsule 07-19 00:00: 00 buspirone 5 2019-0 No 1mg mg tablet 07-19 00:00: 00 Lamictal 2019-0 No 1mg 100 mg 6-11 tablet 00:00: 00 trazodone 2019-0 No 1mg 100 mg 6-11 tablet 00:00: 00 Prozac 10 2019-0 No 1mg mg capsule 07-19 00:00: 00 buspirone 5 2019-0 No 1mg mg tablet 07-19 00:00: 00 Lamictal 2019-0 No 1mg 100 mg 6-11 tablet 00:00: 00 trazodone 2019-0 No 1mg 100 mg 6-11 tablet 00:00: 00 Prozac 10 2019-0 No 1mg mg capsule 07-19 00:00: 00 buspirone 5 2019-0 No 1mg mg tablet 07-19 00:00: 00 Lamictal 2019-0 No 1mg 100 mg 6-11 tablet 00:00: 00 trazodone 2019-0 No 1mg 100 mg 6-11 tablet 00:00: 00 Prozac 10 2019-0 No 1mg mg capsule 07-19 00:00: 00 triamcinolo 2019-0 No 1% ne [...] buspirone 5 2019-0 No 1mg mg tablet 4 00:00: 00 trazodone 2019-0 No 1mg 100 mg 4-09 tablet 00:00: 00 Prozac 10 2019-0 No 1mg mg capsule 4 00:00: 00 Lamictal 2019-0 No 1mg 100 mg 4-09 tablet 00:00: 00 buspirone 5 2019-0 No 1mg mg tablet 4 00:00: 00 trazodone 2019-0 No 1mg 100 mg 4-09 tablet 00:00: 00 Prozac 10 2019-0 No 1mg mg capsule 4 00:00: 00 Lamictal 2019-0 No 1mg 100 mg 4-09 tablet 00:00: 00 buspirone 5 2019-0 No 1mg mg tablet 4 00:00: 00 trazodone 2019-0 No 1mg 100 mg 4-09 tablet 00:00: 00 Prozac 10 2019-0 No 1mg mg capsule 4 00:00: 00 Lamictal 2019-0 No 1mg 100 mg 4-09 tablet 00:00: 00 buspirone 5 2019-0 No 1mg mg tablet 05-17 00:00: 00 trazodone 2019-0 No 1mg 100 mg 4-09 tablet 00:00: 00 Prozac 10 2019-0 No 1mg mg capsule 4 00:00: 00 Lamictal 2019-0 No 1mg 100 [...] Lamictal 25 2019-0 No 1mg mg tablet 22 00:00: 00 trazodone 2019-0 No 1mg 100 mg 1-22 tablet 00:00: 00 Lamictal 25 2019-0 No 1mg mg tablet 03-01 00:00: 00 trazodone 2019-0 No 1mg 100 [...] 00:00: nded 00 release 24 hr fluticasone 2017-1 No 2mcg/ac 50 1-27 tuation mcg/actuati 00:00: on nasal 00 spray,suspe nsion loratadine 2017-1 No 1mg 10 mg 1-27 tablet 00:00: 00 aspirin 81 2017- No 1mg mg 1-27 tablet,gena 00:00: yed release 00 metoprolol 2018-1 No 1mg tartrate 25 1-27 mg tablet 00:00: 00 fluticasone 2017-1 No 2mcg/ac 50 1-27 tuation mcg/actuati 00:00: on nasal 00 spray,suspe nsion loratadine 2017- No 1mg 10 mg 1-27 tablet 00:00: 00 aspirin 81 2017-1 No 1mg mg 1-27 tablet,gena 00:00: yed release 00 metoprolol 2018-1 No 1mg tartrate 25 1-27 mg tablet 00:00: 00 fluticasone 2018-1 No 2mcg/ac 50 1-27 tuation mcg/actuati 00:00: on nasal 00 spray,suspe nsion loratadine 2017-1 No 1mg 10 mg 1-27 tablet 00:00: 00 aspirin 81 2017- No 1mg mg 1-27 tablet,gena 00:00: yed release 00 metoprolol 2017-1 No 1mg tartrate 25 1-27 mg tablet 00:00: 00 fluticasone 2017- No 2mcg/ac 50 1-27 tuation mcg/actuati 00:00: on nasal 00 spray,suspe nsion loratadine 2017-02 No 1mg 10 mg 1-27 tablet 00:00: 00 aspirin 81 2017-02 No 1mg mg 1-27 tablet,gena 00:00: yed release 00 metoprolol 2017-02 No 1mg tartrate 25 1-27 mg tablet 00:00: 00 Spiriva 2017-02 No 1mcg/ac Respimat 1-05 tuation [...] mcg/actuati 00:00: on aerosol 00 inhaler trazodone 2017-0 No 1mg 100 mg 8-21 tablet 00:00: 00 aspirin 81 0 No 1mg mg 8-21 tablet,gena 00:00: yed release 00 metoprolol 0 No 1mg tartrate 25 8-21 mg tablet [...] No known No Univers medications ity of [facility] Vital Signs Vital Name Observation Time Observation Value Comments Source Systolic blood 2019-12-30 135 mm[Hg] University of pressure 17:24:00 [facility] Diastolic blood 2019-12-30 72 mm[Hg] University o f pressure 17:24: [facility] Heart rate 2019-12-30 78 /min University 17:24:00 [facility] Body temperature 2019-12-30 35.61 Annemarie University of 17:24:00 [facility] Respiratory rate 2019-12-30 18 /min University of :24:00 [facility] Oxygen saturation 2019-12-30 91 /min [facility] in Arterial blood 17:24:00 [facility] by Pulse oximetry [place] Body weight 2019-12-30 57.924 kg pt's actual wt University of 10:03:00 on regular [facility] scale Branch BMI 2019-12-30 20.61 kg/m2 University of 10:03:00 [facility] Body height 2019-12-29 167.6 cm University of 20:18:00 [facility] Systolic blood 2019-12-30 135 mm[Hg] University of pressure 17:24:00 [facility] Diastolic blood 2019-12-30 72 mm[Hg] University o f pressure 17:24:00 [facility] Heart rate 2019-12-30 78 /min University 17:24:00 [facility] Body temperature 2019-12-30 35.61 Annemarie University of 17:24:00 [facility] Respiratory rate 2019-12-30 18 /min University of 17:24:00 [facility] Oxygen saturation 2019-12-30 91 /min University of in Arterial blood 17:24:00 [place] Medi piedad by Pulse oximetry [place] Body weight 2019-12-30 57.924 kg pt's actual wt University of 10:03:00 on regular [place] Medical scale Branch BMI 2019-12-30 20.61 kg/m2 University of 10:03:00 [facility] Body height 2019-12-29 167.6 cm University of 20:18:00 [facility] Systolic blood 2019-07-27 120 mm[Hg] University of pressure 21:35:00 [facility] Branch Diastolic blood 2019-07-27 79 mm[Hg] University o f pressure 21:35:00 [facility] Heart rate 2019-07-27 93 /min University of 21:35:00 [facility] Respiratory rate 2019-07-27 12 /min University of 21:35:00 [facility] Oxygen saturation 2019-07-27 95 /min University of in Arterial blood 21:35:00 [facility] piedad by Pulse oximetry Branch Body temperature 2019-07-27 37.5 Annemarie University of 21:15:00 [facility] Body height 2019-07-27 167.6 cm University of 21:15:00 [facility] Body weight 2019-07-27 55.792 kg University of :15:00 [facility] BMI 2019-07-27 19.85 kg/m2 University of 21:15:00 [facility] Systolic blood 2019-07-27 120 mm[Hg] University of pressure 21:35:00 [facility] Diastolic blood 2019-07-27 79 mm[Hg] University o f pressure 21:35:00 [facility] Heart rate 2019-07-27 93 /min University of 21:35:00 [facility] Respiratory rate 2019-07-27 12 /min University of 21:35:00 [facility] Oxygen saturation 2019-07-27 95 /min University of in Arterial blood 21:35:00 [facility] piedad by Pulse oximetry Branch Body temperature 2019-07-27 37.5 Annemarie University of 21:15:00 [facility] Body height 2019-07-27 167.6 cm University of :15:00 [facility] Body weight 2019-07-27 55.792 kg University of 21:15:00 [facility] BMI 2019-07-27 19.85 kg/m2 University of 21:15:00 [facility] BP Systolic 2021-12-05 137 mm[Hg] 13:31:00 [...] 2021-07-17 15:08:00 Heart rate 2021-07-16 93 /min [facility] 17:[facility]00 [facility] Systolic blood 2021-07-16 156 mm[Hg] [facility] pressure 16:50:46 Hospital Diastolic blood 2021-07-16 83 mm[Hg] [facility] pressure 16:50:46 Hospital Body temperature 2021-07-16 36.72 Annemarie [facility] 16:50:46 [facility] Respiratory rate 2021-07-16 20 /min [facility] 16:50:46 Hospital Oxygen saturation 2021-07-16 100 /min [facility] in Arterial blood 16:50:46 Hospital by Pulse [...] Performed POC GLUCOSE 2021-07-16 16:04:00 Hyun Flynn POC GLUCOSE 2021-07-16 13:06:00 FakhrHyun fatima [facility] HEMOGLOBIN A1C 2021-07-16 10:38:00 FakHyun del real Ho spital POC GLUCOSE 2021-07-16 02:40:00 FakhrHyun fatima Ho spital POC GLUCOSE 2021-07-15 21:28:00 FarzadhrHyun fatima Ho spital POC GLUCOSE 2021-07-15 18:04:00 FakhrHyun fatima [facility] LACTIC ACID LEVEL, 2021-07-15 14:19:00 Zina [facility] SEPSIS - NOW AND REPEAT 2X EVERY 3 HOURS POC GLUCOSE 2021-07-15 14:05:00 Hyun Flynn spital LACTIC ACID LEVEL, 2021-07-15 11:47:00 Zina [facility] SEPSIS - NOW AND REPEAT 2X EVERY 3 HOURS ECG 12-LEAD 2021-07-15 09:34:19 Zina [facility] XR CHEST 1 VW PORTABLE 2021-07-15 08:37:27 Zina [facility] COVID-19 ANTI-SPIKE IGG 2021-07-15 08:35:00 Soabran [facility] ANTIBODY TITER COVID-19 SEROLOGY 2021-07-15 08:35:00 Zina [facility] PATIENT SURVEILLANCE LACTIC ACID LEVEL, 2021-07-15 08:35:00 Zina [facility] SEPSIS - NOW AND REPEAT 2X EVERY 3 HOURS HC COMPLETE BLD COUNT 2021-07-15 08:35:00 Zina [facility] W/AUTO DIFF COMPREHENSIVE METABOLIC 2021-07-15 08:35:00 Zina [facility] PANEL TROPONIN T 2021-07-15 08:35:00 abran [facility] ESTIMATED GFR 2021-07-15 08:35:00 [facility] EXTERNAL PROVIDER 2020-01-17 06:01:00 Doctor Unassigned, No Univ [facility] RECORDS Name Medical Branch POCT GLUCOSE (AUTOMATED) 2019-12-30 15:25:00 Lexy Monae Un [facility] of [place] Meghan Ahtaniya [facility] MAGNESIUM 2019-12-30 10:10:00 [facility] BASIC METABOLIC PANEL 2019-12-30 10:10:00 Federicanmoscar [facility] (NA, K, CL, CO2, Medical Branch GLUCOSE, BUN, CREATININE, CA) CBC WITH DIFF 2019-12-30 10:10:00 [facility] POCT GLUCOSE (AUTOMATED) 2019-12-30 01:50:00 Lexy Monae Un iversity of [facility] POCT GLUCOSE (AUTOMATED) 2019-12-29 23:32:00 Lexy Monae Un iversity of [facility] HB ECG ROUTINE & RHYTHM 2019-12-29 14:11:36 Mariya [facility] POCT GLUCOSE (AUTOMATED) 2019-12-29 14:00:00 Lexy Monae Un iversity of [facility] MAGNESIUM 2019-12-29 10:58:00 Mariya [facility] BASIC METABOLIC PANEL 2019-12-29 10:58:00 Mariya [facility] (NA, K, CL, CO2, Medical Branch GLUCOSE, BUN, CREATININE, CA) ACTIVATED PARTIAL 2019-12-29 10:58:00 Mariya [facility] EXTERNAL PROVIDER 2019-12-29 06:01:00 Doctor Unassigned, No [facility] RECORDS Name Medical Branch POCT GLUCOSE (AUTOMATED) 2019-12-29 04:16:00 Lexy Monae Un iversity of [facility] ACTIVATED PARTIAL 2019-12-29 00:06:00 Mariya [facility] TROPONIN I 2019-12-28 19:46:00 Jesus Paz [facility] LIPID PANEL 2019-12-28 19:46:00 Sydor, [facility] ([id number])(TOTAL Medical Branch CHOLESTEROL, TRIGLYCERIDES, HDL) ECHO ROUTINE W/DOPPLER 2019-12-28 16:44:30 Mariya [facility] COLOR [facility] HB ECG ROUTINE & RHYTHM 2019-12-28 13:42:07 Mariya [facility] PROTHROMBIN TIME / INR 2019-12-28 12:24:00 Mariya [facility] ACTIVATED PARTIAL 2019-12-28 12:24:00 Mariya [facility] THRMPLAS CATHY [facility] TROPONIN I 2019-12-28 10:08:00 Mariya [facility] CT CHEST PULMONARY 2019-12-28 04:44:55 Minna Mike [facility] ANGIOGRAM Medical Branch XR CHEST 1 VW 2019-12-28 02:07:[address] [facility] COVID-19 (ID NOW RAPID 2019-12-28 01:50:00 Minna Mike [facility] TESTING) Medical Branch HB ECG ROUTINE & RHYTHM 2019-12-28 01:49:31 Minna Mike [facility] TROPONIN I 2019-12-28 01:49:[address] [facility] THYROID STIMULATING 2019-12-28 01:49:00 Mariya [facility] HORMONE [facility] BASIC METABOLIC PANEL 2019-12-28 01:49:00 Minna Mike [facility] (NA, K, CL, CO2, Medical Branch GLUCOSE, BUN, CREATININE, CA) COMP. METABOLIC PANEL 2019-12-28 01:49:00 Minna Mike [facility] ([id number]) Medical Branch CBC WITH DIFF 2019-12-28 01:49:[address] [facility] GLYCOSYLATED HEMOGLOBIN 2019-12-28 01:49:00 Mariya [facility] (A1C) Medical Branch N-TERMINAL PRO-BNP 2019-12-28 01:49:00 Mariya [facility] XR CHEST 1 VW 2019-07-27 22:14:30 Soila Villar [facility] COVID-19 (ID NOW RAPID 2019-07-27 21:43:00 Soila Villar [facility] TESTING) Medical Branch TROPONIN I 2019-07-27 21:38:00 Soila Villar [facility] HEPATIC FUNCTION PANEL 2019-07-27 21:38:00 Soila Villar [facility] ([id number]) (ALB,T.PRO,BILI [facility] T,BU/BC,ALT,AST,ALK PHOS) BASIC METABOLIC PANEL 2019-07-27 21:38:00 Soila Villar [facility] (NA, K, CL, CO2, Medical Branch GLUCOSE, BUN, CREATININE, CA) CBC WITH DIFFERENTIAL 2019-07-27 21:38:00 Soila Villar [facility] PROTHROMBIN TIME / INR 2019-07-27 21:38:00 Soila Villar [facility] N-TERMINAL PRO-BNP 2019-07-27 21:38:00 Soila Villar [facility] EKG-12 LEAD 2019-07-27 21:21:22 Soila Villar [facility] NOTICE OF PRIVACY 2019-07-27 20:58:21 Doctor Unassigned, No [facility] PRACTICES Name [facility] Plan of Care Planned Activity Planned Date Details Comments Source Future Scheduled 2022-01-20 COVID-19 VACCINE (#1) [facility] Test 11:08:40 [code = COVID-19 VACCINE (#1)] Future Scheduled 2022-01-20 65+ PNEUMOCOCCAL [facility] Test 11:08:40 VACCINE (1 - PCV) [code = 65+ PNEUMOCOCCAL VACCINE (1 - PCV)] Future Scheduled 2022-01-20 Hepatitis C screening [facility] Test 11:08:40 (procedure) [code = [id number]] Future Scheduled 2022-01-20 BREAST CANCER [facility] Test 11:08:40 SCREENING [code = BREAST CANCER SCREENING] Future Scheduled 2022-01-20 COLONOSCOPY SCREENING [facility] Test 11:08:40 [code = COLONOSCOPY SCREENING] Future Scheduled 2022-01-20 SHINGLES VACCINES (1 [facility] Test 11:08:40 of 2) [code = SHINGLES VACCINES (1 of 2)] Future Scheduled 2022-01-20 INFLUENZA VACCINE [facility] Test 11:08:40 [code = INFLUENZA VACCINE] Future Scheduled 2021-12-09 HEPATITIS B VACCINES [facility] Test 11:50:42 (1 of 3 - 3-dose series) [code = HEPATITIS B VACCINES (1 of 3 - 3-dose series)] Future Scheduled 2021-12-09 COVID-19 VACCINE (#1) [facility] Test 11:50:42 [code = COVID-19 VACCINE (#1)] Future Scheduled 2021-12-09 65+ PNEUMOCOCCAL [facility] Test 11:50:42 VACCINE (1 - PCV) [code = 65+ PNEUMOCOCCAL VACCINE (1 - PCV)] Future Scheduled 2021-12-09 Hepatitis C screening [facility] Test 11:50:42 (procedure) [code = [id number]] Future Scheduled 2021-12-09 Screening for [facility] Test 11:50:42 malignant neoplasm of cervix (procedure) [code = [id number]] Future Scheduled 2021-12-09 BREAST CANCER [facility] Test 11:50:42 SCREENING [code = BREAST CANCER SCREENING] Future Scheduled 2021-12-09 COLONOSCOPY SCREENING [facility] Test 11:50:42 [code = COLONOSCOPY SCREENING] Future Scheduled 2021-12-09 SHINGLES VACCINES (1 [facility] Test 11:50:42 of 2) [code = SHINGLES VACCINES (1 of 2)] Future Scheduled 2021-12-09 INFLUENZA VACCINE Method [facility] Test 11:50:42 [code = INFLUENZA VACCINE] Future Scheduled 2021-10-11 HEPATITIS B VACCINES [facility] Test 10:23:54 (1 of 3 - 3-dose series) [code = HEPATITIS B VACCINES (1 of 3 - 3-dose series)] Future Scheduled 2021-10-11 COVID-19 VACCINE (#1) [facility] Test 10:23:54 [code = COVID-19 VACCINE (#1)] Future Scheduled 2021-10-11 65+ PNEUMOCOCCAL [facility] Test 10:23:54 VACCINE (1 - PCV) [code = 65+ PNEUMOCOCCAL VACCINE (1 - PCV)] Future Scheduled 2021-10-11 Hepatitis C screening [facility] Test 10:23:54 (procedure) [code = [id number]] Future Scheduled 2021-10-11 Screening for [facility] Test 10:23:54 malignant neoplasm of cervix (procedure) [code = 012177453] Future Scheduled 2021-10-11 BREAST CANCER [facility] Test 10:23:54 SCREENING [code = BREAST CANCER SCREENING] Future Scheduled 2021-10-11 COLONOSCOPY SCREENING [facility] Test 10:23:54 [code = COLONOSCOPY SCREENING] Future Scheduled 2021-10-11 SHINGLES VACCINES (1 [facility] Test 10:23:54 of 2) [code = SHINGLES VACCINES (1 of 2)] Future Scheduled 2021-10-11 INFLUENZA VACCINE Method [facility] Test 10:23:54 [code = INFLUENZA VACCINE] Future Scheduled 2021-10-11 HEPATITIS B VACCINES [facility] Test 10:23:54 (1 of 3 - 3-dose series) [code = HEPATITIS B VACCINES (1 of 3 - 3-dose series)] Future Scheduled 2021-10-11 COVID-19 VACCINE (#1) [facility] Test 10:23:54 [code = COVID-19 VACCINE (#1)] Future Scheduled 2021-10-11 65+ [facility] 10:23:54 VACCINE (1 - PCV) [code = 65+ PNEUMOCOCCAL VACCINE (1 - PCV)] Future Scheduled 2021-10-11 Hepatitis C screening [facility] Test 10:23:54 (procedure) [code = [id number]] Future Scheduled 2021-10-11 Screening for [facility] Test 10:23:54 malignant neoplasm of cervix (procedure) [code = 665866342] Future Scheduled 2021-10-11 BREAST CANCER [facility] Test 10:23:54 SCREENING [code = BREAST CANCER SCREENING] Future Scheduled 2021-10-11 COLONOSCOPY SCREENING [facility] Test 10:23:54 [code = COLONOSCOPY SCREENING] Future Scheduled 2021-10-11 SHINGLES VACCINES (1 [facility] Test 10:23:54 of 2) [code = SHINGLES VACCINES (1 of 2)] Future Scheduled 2021-10-11 INFLUENZA VACCINE [facility] Test 10:23:54 [code = INFLUENZA VACCINE] Goal Plan of Care Note [code = 54645-4] Goal Plan of Care Note [code = 96699-3] Goal Plan of Care Note [code = 11954-8] Goal Plan of Care Note [code = 34239-9] Goal Plan of Care Note [code = 68143-7] Goal Plan of Care Note [code = 11621-0] Goal Plan of Care Note [code = 14051-9] Goal Plan of Care Note [code = 53095-4] Goal Plan of Care Note [code = 91350-8] Goal Plan of Care Note [code = 59833-2] Goal Plan of Care Note [code = 57008-3] Goal Plan of Care Note [code = 73507-2] Goal Plan of Care Note [code = 83266-1] Goal Plan of Care Note [code = 97404-0] Goal Plan of Care Note [code = 29789-3] Goal Plan of Care Note [code = 92177-8] Goal Plan of Care Note [code = 84417-9] Goal Plan of Care Note [code = 07956-0] Goal Plan of Care Note [code = 25969-5] Goal Plan of Care Note [code = 80822-7] Goal Plan of Care Note [code = 87467-8] Goal Plan of Care Note [code = 95539-1] Goal Plan of Care Note [code = 55051-5] Goal Plan of Care Note [code = 28251-0] Goal Plan of Care Note [code = 74155-8] Goal Plan of Care Note [code = 39063-3] Goal Plan of Care Note [code = 07305-1] Goal Plan of Care Note [code = 27322-1] Goal Plan of Care Note [code = 78791-5] Goal Plan of Care Note [code = 16484-9] Goal Plan of Care Note [code = 94962-2] Goal Plan of Care Note [code = 93345-9] Goal Plan of Care Note [code = 15214-8] Goal Plan of Care Note [code = 24034-5] Goal Plan of Care Note [code = 70688-5] Goal Plan of Care Note [code = 82665-4] Goal Plan of Care Note [code = 47374-1] Goal Plan of Care Note [code = 00733-5] Goal Plan of Care Note [code = 14361-9] Goal Plan of Care Note [code = 44929-1] Goal Plan of Care Note [code = 43413-0] Goal Plan of Care Note [code = 33776-6] Goal Plan of Care Note [code = 52885-1] Goal Plan of Care Note [code = 97801-8] Goal Plan of Care Note [code = 02595-4] Goal Plan of Care Note [code = 23800-1] Goal Plan of Care Note [code = 79136-8] Goal Plan of Care Note [code = 10205-2] Goal Plan of Care Note [code = 45405-3] Goal Plan of Care Note [code = 18967-2] Goal Plan of Care Note [code = 09255-0] Goal Plan of Care Note [code = 17763-3] Goal Plan of Care Note [code = 94671-9] Goal Plan of Care Note [code = 75271-1] Goal Plan of Care Note [code = 37544-8] Goal Plan of Care Note [code = 58906-4] Goal Plan of Care Note [code = 65614-7] Goal Plan of Care Note [code = 76001-8] Goal Plan of Care Note [code = 09491-0] Goal Plan of Care Note [code = 95177-2] Goal Plan of Care Note [code = 62744-7] Goal Plan of Care Note [code = 25759-3] Goal Plan of Care Note [code = 54876-4] Goal Plan of Care Note [code = 02801-5] Goal Plan of Care Note [code = 56466-7] Goal Plan of Care Note [code = 26583-3] Goal Plan of Care Note [code = 93728-0] Goal Plan of Care Note [code = 41252-9] Goal Plan of Care Note [code = 42602-2] Goal Plan of Care Note [code = 19247-4] Goal Plan of Care Note [code = 76698-8] Goal Plan of Care Note [code = 39125-9] Goal Plan of Care Note [code = 21923-2] Goal Plan of Care Note [code = 78094-1] Goal Plan of Care Note [code = 79335-5] Goal Plan of Care Note [code = 70858-7] Goal Plan of Care Note [code = 32222-5] Goal Plan of Care Note [code = 06518-9] Goal Plan of Care Note [code = 86500-7] Goal Plan of Care Note [code = 64261-9] Goal Plan of Care Note [code = 75793-9] Goal Plan of Care Note [code = 09367-4] Goal Plan of Care Note [code = 07163-3] Goal Plan of Care Note [code = 28662-2] Goal Plan of Care Note [code = 91794-7] Goal Plan of Care Note [code = 90301-0] Goal Plan of Care Note [code = 62464-4] Goal Plan of Care Note [code = 07499-8] Goal Plan of Care Note [code = 49703-7] Goal Plan of Care Note [code = 22366-5] Goal Plan of Care Note [code = 62522-9] Goal Plan of Care Note [code = 26970-2] Goal Plan of Care Note [code = 74736-1] Goal Plan of Care Note [code = 09035-7] Goal Plan of Care Note [code = 81803-7] Goal Plan of Care Note [code = 35015-4] Goal Plan of Care Note [code = 01146-5] Goal Plan of Care Note [code = 32241-1] Goal Plan of Care Note [code = 07105-3] Goal Plan of Care Note [code = 40704-4] Goal Plan of Care Note [code = 56236-2] Goal Plan of Care Note [code = 22122-0] Goal Plan of Care Note [code = 88751-6] Goal Plan of Care Note [code = 67281-4] Goal Plan of Care Note [code = 29088-6] Goal Plan of Care Note [code = 69033-8] Goal Plan of Care Note [code = 07843-9] Goal Plan of Care Note [code = 50491-0] Goal Plan of Care Note [code = 51009-7] Goal Plan of Care Note [code = 21222-9] Goal Plan of Care Note [code = 15367-0] Goal Plan of Care Note [code = 38430-7] Goal Plan of Care Note [code = 79064-6] Goal Plan of Care Note [code = 99459-0] Goal Plan of Care Note [code = 15334-0] Goal Plan of Care Note [code = 70504-5] Goal Plan of Care Note [code = 88277-2] Goal Plan of Care Note [code = 58556-8] Goal Plan of Care Note [code = 20887-1] Goal Plan of Care Note [code = 85207-2] Goal Plan of Care Note [code = 49229-6] Goal Plan of Care Note [code = 47434-4] Goal Plan of Care Note [code = 01469-2] Goal Plan of Care Note [code = 25015-2] Goal Plan of Care Note [code = 35700-3] Goal Plan of Care Note [code = 64005-1] Goal Plan of Care Note [code = 42755-0] Goal Plan of Care Note [code = 92045-0] Goal Plan of Care Note [code = 62009-5] Goal Plan of Care Note [code = 85600-7] Goal Plan of Care Note [code = 72756-3] Goal Plan of Care Note [code = 85856-4] Goal Plan of Care Note [code = 59980-0] Goal Plan of Care Note [code = 94028-9] Goal Plan of Care Note [code = 89835-7] Goal Plan of Care Note [code = 64803-3] Goal Plan of Care Note [code = 40125-1] Goal Plan of Care Note [code = 57036-2] Goal Plan of Care Note [code = 86952-2] Goal Plan of Care Note [code = 22963-9] Goal Plan of Care Note [code = 47669-0] Goal Plan of Care Note [code = 14696-3] Goal Plan of Care Note [code = 21586-8] Goal Plan of Care Note [code = 98023-8] Goal Plan of Care Note [code = 03303-2] Goal Plan of Care Note [code = 15358-1] Goal Plan of Care Note [code = 19039-3] Goal Plan of Care Note [code = 07293-5] Goal Plan of Care Note [code = 40115-8] Goal Plan of Care Note [code = 21390-3] Goal Plan of Care Note [code = 16682-5] Goal Plan of Care Note [code = 65217-4] Goal Plan of Care Note [code = 00959-7] Goal Plan of Care Note [code = 52759-5] Goal Plan of Care Note [code = 70455-4] Goal Plan of Care Note [code = 34574-6] Encounters Start End Encounter Admission Attending Care Care Encounter Source Date/Time Date/Time Type Type Clinicians Facility Department ID 2021-12-11 2021-12-11 Outpatient REBECCA FERNANDEZ [id number] oRslyn Cooley 09:25:26 09:25:26 1103 F Yusef 2021-12-05 2021-12-05 Outpatient my8prc51- [id number] ed 6cfl71-6 00:00:00 00:00:00 Visit 7043-7583 059-4058-8 -4e29-3v7 d53-7t02y7 [id number] 437426 5829-09-29 2021-11-06 Outpatient 7996afbf- [id number] 79 96afbf-7 00:00:00 00:00:00 Visit 78ef-41c6 8ef-41c6-8 -8750-b17 750-b175d4 8t84y03b5 9c05e3 2021-09-09 2021-09-09 Outpatient 4m6v4ulm- [id number] 2c 6y6qww-o 00:00:00 00:00:00 Visit tz94-37r6 d05-95b1-4 -8625-285 625-205686 6101o6j9g 2e6a5e 2021-08-15 2021-08-15 Outpatient 80a1m165- [id number] 32 t0c404-2 00:00:00 00:00:00 Visit 1578-4e21 578-4e21-b -n56s-5r1 11c-3x6101 7174dedcc 4dedcc 2021-07-15 2021-07-16 [facility] 1.2.840.1 1047 [id number] Methodi 01:59:00 13:57:00 Encounter Musaakua Mavismercedesya [address]158.1.[address] 3.430.2.7 Hospit a .3.956702 l .8 2021-07-15 2021-07-16 [facility] 1.2.840.1 1047 34981 [id number] Methodi 01:59:00 13:57:00 Encounter FarzadMavis fatimanieves 81956.1.[address] 3.430.2.7 Hospit a .3.126109 l .8 2021-07-15 2021-07-15 Travel 1.2.840.1 1.2.502.640 2170 [id number] Methodi 00:00:00 00:00:[address] 3.430.2.7 0.2.7.3.698 Ho spita .3.090167 084.8 l .8 2021-07-15 2021-07-15 Travel 1.2.840.1 1.2.101.093 0932 097467 Methodi 00:00:00 00:00:[address] 3.430.2.7 0.2.7.3.698 Ho spita .3.723068 084.8 l .8 2020-01-17 2020-01-17 Orders Doctor NICHOLE 1.2.840.114 [id number] [facility] 00:00:00 00:00:00 Only Unassigned, ASHLEY 350.1.13.10 ity of [facility] 4.2.7.2.686 Nabil as [id number] [facility] [address] 2020-01-17 2020-01-17 Orders Doctor NICHOLE 1.2.840.114 [id number] 08 00:00:00 00:00:00 Only Unassigned, ASHLEY 350.1.13.10 [facility] 4.2.7.2.686 [id number] 009 2020-01-01 2020-01-01 Transition Ree Barkley 1.2.840.114 [id number] [id number] [facility] 00:00:00 00:00:00 of Care Sarah Carvalho 350.1.13.10 ity [place] [id number] [facility] [address] 2020-01-01 2020-01-01 Transition Ree Barkley 1.2.840.114 797 45507 00:00:00 00:00:00 of Care Sarah Carvalho 350.1.13.10 [place] 4.2.7.2.686 [id number] [facility] 2019-12-27 2019-12-30 [facility] Minna Mike 1.2.840. 114 [id number] [facility] 18:54:00 14:13:00 Encounter Lexy Monae 350.1.13.10 ity of [facility] 4.2.7.2.68 6 [place] [id number] [facility] [address] [place] 2019-12-27 2019-12-30 [facility] Minna Mike 1.2.840. 114 [id number] 18:54:00 14:13:00 Encounter Lexy Monae 350.1.13.[address]2.68 [id number] 090 2019-12-27 2019-12-27 [facility] [id number] Univers 18:54:00 18:54:00 MINNA [facility] 2019-07-27 2019-07-27 Emergency [facility] 1.2.840.114 [id number] Univers 16:26:45 18:20:00 Soila Espinosa 350.1.13.10 ity [facility] 4.2.7.2.686 [facility] [id number] [address] 2019-07-27 2019-07-27 [facility] [id number] Univers 16:26:45 18:20:00 SOILA galvan [facility] 2019-07-27 2019-07-27 Emergency [facility] 1.2.840.114 [id number] 16:26:45 18:20:00 Soila Espinosa 350.1.13.10 [place] 4.2.7.2.686 [place] [id number] 084 Results Test Description Test Time Test Comments Results Result Comments Source LACTIC ACID, PLASMA 2021-09-16 11:30:59 Test Item Value Reference Range Interpretation Comme nts LACTIC ACID, PLASMA (test code = 2057) 12.0 MG/DL 4.5-19.8 [id number] 03:42:38 Test Item Value Reference Range Interpretation Comments MAGNESIUM (test code = 2226) 1.9 MG/DL 1.6-2.6 COMPREHENSIVE METABOLIC [id number] 03:42:00 Test Item Value Reference Range Interpretation Comments GLUCOSE (test code = 193 MG/DL 70-99 H 2216) BUN (test code = 14 MG/DL 8-23 2207) CREATININE (test 0.68 MG/DL 0.60-1.30 code = 2214) eGFR (2020 CKD-EPI) 97 ML/MIN/1.73 >60 (test code = 51634) CALC BUN/CREAT (test 21 RATIO 6-28 code = 2235) SODIUM (test code = 140 MEQ/L 586-823 7835) POTASSIUM (test code 4.4 MEQ/L 3.5-5.4 = [...] code = 25 U/L 5-40 2218) IRON, [id number] 03:42:00 Test Item Value Reference Range Interpretation Comments IRON, SERUM (test 21 UG/DL 37-145 L UNLESS OT HERWISE code = 2222) INDICATED, ALL TESTING PERFORMED ATCLI NICAL PATHOLOGY LABOR [facility] [employer] [address] [place] [address] LABOR ATORY DIRECTOR: TITA PARIKH M.D. GEE NUMBER [id number] CAP ACCREDITATION N O. [id number] HEMOGLOBIN [id number] 03:08:42 Test Item Value Reference Range Interpretation Comments HEMOGLOBIN A1c (test 8.0 % 4.2-5.6 H [employer]IC AN DIABETES code = 19529) ASSOCIATION IDELINES FOR HGB A1C: PREDIABETES/INC REASED [...] LABORATORY C ONSULTATION. CBC W/AUTO DIFF WITH [id number] 01:59:57 Test Item Value Reference Range Interpretation [...] RBCS 0.00 K/UL 0.00-0.11 (test code = 36077) HEMOGLOBIN A1c [ADDED]2021-09-16 00:00:00 Test Item Value Reference Range Interpretation Comments HEMOGLOBIN A1c (test code = 44410) 8.0 % HEMOGLOBIN A1c [ADDED]2021-09-16 00:00:00 Test Item Value Reference Range Interpretation Comments HEMOGLOBIN A1c (test code = 72187) 8.0 % CBC W/AUTO DIFF WITH PLATELETS [...] NUCLEATED RBCS (test code = 0.00 K/UL 84586) CBC W/AUTO DIFF WITH PLATELETS [ADDED]2021-09-16 00:00:00 [...] NUCLEATED RBCS (test code = 0.00 K/UL 61447) CBC W/AUTO DIFF WITH PLATELETS [ADDED]2021-09-16 00:00:00 [...] NUCLEATED RBCS (test code = 0.00 K/UL 55959) IRON, SERUM [ADDED]2021-09-16 00:00:00 Test Item Value [...] (2020 CKD-EPI) (test code 97 ML/MIN/1.73 = 03258) CALC BUN/CREAT (test code = 21 RATIO 2235) SODIUM (test code = 2231) 140 MEQ/L POTASSIUM (test code = 2228) 4.4 MEQ/L CHLORIDE (test code = 2215) 102 MEQ/L CARBON DIOXIDE (test code = 27 MEQ/L 2206) CALCIUM (test code = 2209) 9.0 MG/DL PROTEIN, TOTAL (test code = 5.9 G/DL 2228) ALBUMIN (test code = 2201) 3.8 G/DL CALC GLOBULIN (test code = 2.1 G/DL 224) CALC A/G RATIO (test code = 1.8 RATIO 2234) BILIRUBIN, TOTAL (test code = <0.2 MG/DL 2206) ALKALINE PHOSPHATASE (test 61 U/L code = 220) AST (test code = 2218) 24 U/L ALT (test code = 2219) 25 U/L COMPREHENSIVE METABOLIC PANEL [ADDED]2021-09-16 00:00:00 Test Item Value Reference Range Interpretation Comments GLUCOSE (test code = 2217) 193 MG/DL BUN (test code = 2208) 14 MG/DL CREATININE (test code = 2214) 0.68 MG/DL eGFR (2020 CKD-EPI) (test code 97 ML/MIN/1.73 = 76010) CALC BUN/CREAT (test code = 21 RATIO 2235) SODIUM (test code = 2231) 140 MEQ/L POTASSIUM (test code = 2228) 4.4 MEQ/L CHLORIDE (test code = 2215) 102 MEQ/L CARBON DIOXIDE (test code = 27 MEQ/L 220) CALCIUM (test code = 2209) 9.0 MG/DL [...] Interpretation Comments HEMOGLOBIN A1c (test code = 33487) 8.0 % HEMOGLOBIN A1c [ADDED]2021-09-16 00:00:00 Test Item Value Reference Range Interpretation Comments HEMOGLOBIN A1c (test code = 06680) 8.0 % HEMOGLOBIN A1c [ADDED]2021-09-16 00:00:00 Test Item Value Reference Range Interpretation Comments HEMOGLOBIN A1c (test code = 55123) 8.0 % CBC W/AUTO DIFF WITH PLATELETS [...] NUCLEATED RBCS (test code = 0.00 K/UL 28063) CBC W/AUTO DIFF WITH PLATELETS [ADDED]2021-09-16 00:00:00 [...] NUCLEATED RBCS (test code = 0.00 K/UL 74431) CBC W/AUTO DIFF WITH PLATELETS [ADDED]2021-09-16 00:00:00 [...] NUCLEATED RBCS (test code = 0.00 K/UL 12966) IRON, SERUM [ADDED]2021-09-16 00:00:00 Test Item Value [...] (2020 CKD-EPI) (test code 97 ML/MIN/1.73 = 72964) CALC BUN/CREAT (test code = 21 RATIO 2235) SODIUM (test code = 2231) 140 MEQ/L POTASSIUM (test code = 2228) 4.4 MEQ/L CHLORIDE (test code = 2215) 102 MEQ/L CARBON DIOXIDE (test code = 27 MEQ/L 220) CALCIUM (test code = 2209) 9.0 MG/DL [...] (2020 CKD-EPI) (test code 97 ML/MIN/1.73 = 39424) CALC BUN/CREAT (test code = 21 RATIO [...] Interpretation Comments HEMOGLOBIN A1c (test code = 36012) 8.0 % HEMOGLOBIN A1c [ADDED]2021-09-16 00:00:00 Test Item Value Reference Range Interpretation Comments HEMOGLOBIN A1c (test code = 09022) 8.0 % HEMOGLOBIN A1c [ADDED]2021-09-16 00:00:00 Test Item Value Reference Range Interpretation Comments HEMOGLOBIN A1c (test code = 07837) 8.0 % CBC W/AUTO DIFF WITH PLATELETS [...] NUCLEATED RBCS (test code = 0.00 K/UL 84804) CBC W/AUTO DIFF WITH PLATELETS [ADDED]2021-09-16 00:00:00 [...] NUCLEATED RBCS (test code = 0.00 K/UL 14588) CBC W/AUTO DIFF WITH PLATELETS [ADDED]2021-09-16 00:00:00 [...] NUCLEATED RBCS (test code = 0.00 K/UL 59916) IRON, SERUM [ADDED]2021-09-16 00:00:00 Test Item Value [...] (2020 CKD-EPI) (test code 97 ML/MIN/1.73 = 25450) CALC BUN/CREAT (test code = 21 RATIO [...] (2020 CKD-EPI) (test code 97 ML/MIN/1.73 = 14258) CALC BUN/CREAT (test code = 21 RATIO [...] Interpretation Comments HEMOGLOBIN A1c (test code = 24393) 8.0 % HEMOGLOBIN A1c [ADDED]2021-09-16 00:00:00 Test Item Value Reference Range Interpretation Comments HEMOGLOBIN A1c (test code = 06681) 8.0 % HEMOGLOBIN A1c [ADDED]2021-09-16 00:00:00 Test Item Value Reference Range Interpretation Comments HEMOGLOBIN A1c (test code = 23613) 8.0 % CBC W/AUTO DIFF WITH PLATELETS [...] NUCLEATED RBCS (test code = 0.00 K/UL 30537) CBC W/AUTO DIFF WITH PLATELETS [ADDED]2021-09-16 00:00:00 [...] NUCLEATED RBCS (test code = 0.00 K/UL 13580) CBC W/AUTO DIFF WITH PLATELETS [ADDED]2021-09-16 00:00:00 [...] NUCLEATED RBCS (test code = 0.00 K/UL 29986) IRON, SERUM [ADDED]2021-09-16 00:00:00 Test Item Value [...] (2020 CKD-EPI) (test code 97 ML/MIN/1.73 = 76063) CALC BUN/CREAT (test code = 21 RATIO [...] (2020 CKD-EPI) (test code 97 ML/MIN/1.73 = 35143) CALC BUN/CREAT (test code = 21 RATIO [...] Interpretation Comments HEMOGLOBIN A1c (test code = 43933) 8.0 % LACTIC ACID, [id number] 14:02:14 Test Item Value Reference Range Interpretation [...] code = 15.2 MG/DL 2056) COMPREHENSIVE METABOLIC [id number] 04:08:01 Test Item Value Reference Range Interpretation Comments GLUCOSE (test code = 104 MG/DL 70-99 H 2216) BUN (test code = 17 MG/DL 09-30) CREATININE (test 0.73 MG/DL 0.60-1.30 code = 2214) eGFR (2020 CKD-EPI) 91 >60 (test code = 45673) ML/MIN/1.73 CALC BUN/CREAT (test 23 RATIO 6-28 code = 2235) SODIUM (test code = 141 MEQ/L 288-166 2866) POTASSIUM (test code 4.7 MEQ/L 3.5-5.4 = 2228) CHLORIDE (test code 100 MEQ/L 95-107 = [...] message] (test code = 220) The syste [employer] which generated this result transmitted ref erence range: <=1.2. T he reference range was not used to int erpret this result as normal/abnormal . ALKALINE PHOSPHATASE 65 U/L 40-140 (test code = 220) AST (test code = 26 U/L 9-40 2217) ALT (test code = 25 U/L 5-40 UNLESS OTH ERWISE 2218) INDICATED, ALL TESTING PERFORM ED ATCLINICAL PATH OLOGY LABORATORIES, [facility]. [address] [place] [id number] [place] [address] DIRECTOR: TITA PARIKH M.D. CLIA NUMBER [id number] CAP ACCREDITATION N O. [id number] COMPREHENSIVE METABOLIC PANEL [ADDED]2021-08-19 00:00:00 Test Item Value Reference Range Interpretation Comments GLUCOSE (test code = 2217) 104 MG/DL BUN (test code = 2208) 17 MG/DL CREATININE (test code = 2214) 0.73 MG/DL eGFR (2020 CKD-EPI) (test code 91 ML/MIN/1.73 = 41390) CALC BUN/CREAT (test code = 23 RATIO 2234) SODIUM (test code = 2231) [...] (2020 CKD-EPI) (test code 91 ML/MIN/1.73 = 69896) CALC BUN/CREAT (test code = 23 RATIO [...] BILIRUBIN, TOTAL (test code = 0.2 MG/DL 7) ALKALINE PHOSPHATASE (test 65 U/L code = 2204) AST (test code = 2218) 26 U/L ALT (test code = 2219) 25 U/L COMPREHENSIVE METABOLIC PANEL [ADDED]2021-08-19 00:00:00 Test Item Value Reference Range Interpretation Comments GLUCOSE (test code = 2217) 104 MG/DL BUN (test code = 2208) 17 MG/DL CREATININE (test code = 2214) 0.73 MG/DL eGFR (2020 CKD-EPI) (test code 91 ML/MIN/1.73 = 21186) CALC BUN/CREAT (test code = 23 RATIO [...] (2020 CKD-EPI) (test code 91 ML/MIN/1.73 = 06832) CALC BUN/CREAT (test code = 23 RATIO [...] (2020 CKD-EPI) (test code 91 ML/MIN/1.73 = 88371) CALC BUN/CREAT (test code = 23 RATIO [...] (2020 CKD-EPI) (test code 91 ML/MIN/1.73 = 21413) CALC BUN/CREAT (test code = 23 RATIO [...] (2020 CKD-EPI) (test code 91 ML/MIN/1.73 = 41202) CALC BUN/CREAT (test code = 23 RATIO [...] (2020 CKD-EPI) (test code 91 ML/MIN/1.73 = 42966) CALC BUN/CREAT (test code = 23 RATIO [...] BILIRUBIN, TOTAL (test code = 0.2 MG/DL 2207) ALKALINE PHOSPHATASE (test 65 U/L code = 2204) AST (test code = 2218) 26 U/L ALT (test code = 2219) 25 U/L POC [id number] 16:05:00 Test Item Value Reference Range Interpretation Comments POC glucose (test code 354 mg/dL 65-99 [employer] tor Name: Celeste = [id number]) NwachukwuDevice ID: [id number] Lab Interpretation Abnormal (test code = 63351-6) [facility] [id number] 16:05:00 Test Item Value Reference Range Interpretation Comments POC glucose (test code 354 mg/dL 65-99 [employer] Name: Celeste = [id number]) NwachukwuDevice ID: [id number] Lab Interpretation Abnormal (test code = 55196-3) [facility] [id number] 16:05:00 Test Item Value Reference Range Interpretation Comments POC glucose (test code 354 mg/dL 65-99 [employer] Name: Celeste = [id number]) NwachukwuDevice ID: [id number] Lab Interpretation Abnormal (test code = 63100-5) [facility] [id number] 16:05:00 Test Item Value Reference Range Interpretation Comments POC glucose (test code 354 mg/dL 65-99 [employer] Name: Celeste = [id number]) NwachukwuDevice ID: [id number] Lab Interpretation Abnormal (test code = 45148-6) [facility] 12 [id number] 01:04:59 Test Item Value Reference Range Interpretation Comments Ventricular rate (test 79 code = 253) Atrial rate (test code = 79 255) UT interval (test code = 132 266) QRSD interval (test code 88 = 260) QT interval (test code = 410 264) QTC interval (test code 470 = 265) P axis 1 (test code = 86 267) QRS axis 1 (test code = 78 268) T wave axis (test code = 76 270) EKG impression (test Normal sinus code = 273) rhythm-Normal ECG-No previous ECGs available-Electronica lly Signed By Andrey Sosa MD ([id number]) on 07/15/2021 8:04:[address]2022-06-08 01:04:59 Test Item Value Reference Range Interpretation Comments Ventricular rate (test code = 253) Atrial rate (test code = 255) UT interval (test code = 266) QRSD interval [...] Sosa MD ([id number]) on 07/15/2021 8:04:56 PM [address]2022-06-08 01:04:59 Test Item Value Reference Range Interpretation Comments Ventricular rate (test code = 253) Atrial rate (test code = 255) UT interval (test code = 266) QRSD interval [...] Sosa MD ([id number]) on 07/15/2021 8:04:56 PM [address]2022-06-08 01:04:59 Test Item Value Reference Range Interpretation Comments Ventricular rate (test code = 253) Atrial rate (test code = 255) UT interval (test code = 266) QRSD interval (test code = 260) QT interval (test code = 264) QTC interval (test code = 265) P axis 1 (test code = 267) QRS axis 1 (test code = 268) T wave axis (test code = 270) EKG impression (test Normal sinus code = 273) rhythm-Normal ECG-No previous ECGs available-Electronica lly Signed By Andrey Sosa MD ([id number]) on 07/15/2021 8:04:56 PM [facility] [id number] 14:02:59 Test Item Value Reference Range Interpretation Comments LACTIC ACID, 26.7 MG/DL 4.5-19.8 H UNLESS OTHERWI SE PLASMA (test code INDICATED, ALL TESTING = 2056) PERFORMED [facility] [address] [place] [id number] [place] [address] DIRECTOR: TITA PARIKH M.D. CLIA NUMBER [id number] CAP ACCREDITATION N O. [id number] LACTIC ACID, [id number] 00:00:00 Test Item Value Reference Range Interpretation Comments LACTIC ACID, PLASMA (test code = 26.7 MG/DL 2056) LACTIC ACID, [id number] 00:00:00 Test Item Value Reference Range Interpretation Comments LACTIC ACID, PLASMA (test code = 26.7 MG/DL 2056) LACTIC ACID, [id number] 00:00:00 Test Item Value Reference Range Interpretation Comments LACTIC ACID, PLASMA (test code = 26.7 MG/DL 2056) LACTIC ACID, [id number] 00:00:00 Test Item Value Reference Range Interpretation Comments LACTIC ACID, PLASMA (test code = 26.7 MG/DL 2056) LACTIC ACID, [id number] 00:00:00 Test Item Value Reference Range Interpretation Comments LACTIC ACID, PLASMA (test code = 26.7 MG/DL 2056) LACTIC ACID, [id number] 00:00:00 Test Item Value Reference Range Interpretation Comments LACTIC ACID, PLASMA (test code = 26.7 MG/DL 2056) LACTIC ACID, [id number] 00:00:00 Test Item Value Reference Range Interpretation Comments LACTIC ACID, PLASMA (test code = 26.7 MG/DL 2056) LACTIC ACID, [id number] 00:00:00 Test Item Value Reference Range Interpretation Comments LACTIC ACID, PLASMA (test code = 26.7 MG/DL 2056) LACTIC ACID, [id number] 10:45:50 Test Item Value Reference Range Interpretation Comments LACTIC ACID, 27.1 MG/DL 4.5-19.8 H UNLESS OTHERWI SE PLASMA (test code INDICATED, ALL TESTING = 2056) PERFORMED [facility] PATHOLOG[facility] LABOR [employer] [address] [facility] [place] [address] [facility] DIRECTOR: TITA PARIKH M.D. GEE NUMBER [id number] CAP ACCREDITATION N O. [id number] HEMOGLOBIN [id number] 05:02:08 Test Item Value Reference Range Interpretation Comments HEMOGLOBIN A1c (test 8.3 % 4.2-5.6 H AMERIC AN DIABETES code = 01353) ASSOCIATION IDELINES FOR HGB A1C: PREDIABETES/INC REASED [...] ALTERN ATE TESTING OR LABORATORY C ONSULTATION. LIPID [id number] 03:45:06 Test Item Value Reference Range Interpretation [...] , SEE CLIENT ANNOUNCE MENT AT [email or web address] RISK RATIO LDL/HDL 0.93 RATIO <3.22 (test code = 2238) COMPREHENSIVE METABOLIC [id number] 03:45:06 Test Item Value Reference Range Interpretation Comments GLUCOSE (test code = 397 MG/DL 70-99 H 2216) BUN (test code = 21 MG/DL 8-23 2207) CREATININE (test 0.75 MG/DL 0.60-1.30 code = 2214) eGFR (2020 CKD-EPI) 88 ML/MIN/1.73 >60 (test code = 44394) CALC BUN/CREAT (test 28 RATIO 6-28 code = 2235) SODIUM (test code = 140 MEQ/L 689-166 8421) POTASSIUM (test code 4.2 MEQ/L 3.5-5.4 = 2228) CHLORIDE (test code 95 MEQ/L 95-107 = [...] [Automated message] (test code = 2206) The [employer] which generated this result transmit shikha reference range : <=1.2. The refe rence range was not u sed to interpret th is result as normal/abnormal . ALKALINE PHOSPHATASE 73 U/L 40-140 (test code = 2203) AST (test code = 19 U/L 9-40 2217) ALT (test code = 25 U/L 5-40 2218) LACTIC ACID, PLASMA [ADDED]2021-07-09 00:00:00 Test Item Value Reference Range Interpretation Comments LACTIC ACID, PLASMA (test code = 27.1 MG/DL 2056) LACTIC ACID, PLASMA [ADDED]2021-07-09 00:00:00 Test Item Value Reference Range Interpretation Comments LACTIC ACID, PLASMA (test code = 27.1 MG/DL 2056) COMPREHENSIVE METABOLIC [id number] 00:00:00 Test Item Value Reference Range Interpretation Comments GLUCOSE (test code = 2217) 397 MG/DL BUN (test code = 2208) 21 MG/DL CREATININE (test code = 2214) 0.75 MG/DL eGFR (2020 CKD-EPI) (test code 88 ML/MIN/1.73 = 61957) CALC BUN/CREAT (test code = 28 RATIO [...] code = 2219) 25 U/L COMPREHENSIVE METABOLIC [id number] 00:00:00 Test Item Value Reference Range Interpretation Comments GLUCOSE (test code = 2217) 397 MG/DL BUN (test code = 2208) 21 MG/DL CREATININE (test code = 2214) 0.75 MG/DL eGFR (2020 CKD-EPI) (test code 88 ML/MIN/1.73 = 26227) CALC BUN/CREAT (test code = 28 RATIO 2235) SODIUM (test code = 2231) 140 MEQ/L POTASSIUM (test code = 2228) 4.2 MEQ/L CHLORIDE (test code = 2215) 95 MEQ/L CARBON DIOXIDE (test code = 32 MEQ/L 6) CALCIUM (test code = 2209) 10.0 MG/DL [...] (test code = 2219) 25 U/L LIPID [id number] 00:00:00 Test Item Value Reference Range Interpretation Comments CHOLESTEROL (test code = 2210) 134 MG/DL TRIGLYCERIDES (test code = 2232) 81 MG/DL HDL CHOLESTEROL (test code = 2220) 61 MG/DL CALC LDL CHOL (test code = 2237) 57 MG/DL RISK RATIO LDL/HDL (test code = 0.93 RATIO 2238) LIPID [id number] 00:00:00 Test Item Value Reference Range Interpretation Comments CHOLESTEROL (test code = 2210) 134 MG/DL TRIGLYCERIDES (test code = 2232) 81 MG/DL HDL CHOLESTEROL (test code = 2220) 61 MG/DL CALC LDL CHOL (test code = 2237) 57 MG/DL RISK RATIO LDL/HDL (test code = 0.93 RATIO 2238) HEMOGLOBIN [id number] 00:00:00 Test Item Value Reference Range Interpretation Comments HEMOGLOBIN A1c (test code = 42544) 8.3 % HEMOGLOBIN [id number] 00:00:00 Test Item Value Reference Range Interpretation Comments HEMOGLOBIN A1c (test code = 95356) 8.3 % HEMOGLOBIN [id number] 00:00:00 Test Item Value Reference Range Interpretation Comments HEMOGLOBIN A1c (test code = 04274) 8.3 % LACTIC ACID, PLASMA [ADDED]2021-07-09 00:00:00 Test Item Value Reference Range Interpretation Comments LACTIC ACID, PLASMA (test code = 27.1 MG/DL 2056) LACTIC ACID, PLASMA [ADDED]2021-07-09 00:00:00 Test Item Value Reference Range Interpretation Comments LACTIC ACID, PLASMA (test code = 27.1 MG/DL 2056) COMPREHENSIVE METABOLIC [id number] 00:00:00 Test Item Value Reference Range Interpretation Comments GLUCOSE (test code = 2217) 397 MG/DL BUN (test code = 2208) 21 MG/DL CREATININE (test code = 2214) 0.75 MG/DL eGFR (2020 CKD-EPI) (test code 88 ML/MIN/1.73 = 75898) CALC BUN/CREAT (test code = 28 RATIO [...] code = 2219) 25 U/L COMPREHENSIVE METABOLIC [id number] 00:00:00 Test Item Value Reference Range Interpretation Comments GLUCOSE (test code = 2217) 397 MG/DL BUN (test code = 2208) 21 MG/DL CREATININE (test code = 2214) 0.75 MG/DL eGFR (2020 CKD-EPI) (test code 88 ML/MIN/1.73 = 39873) CALC BUN/CREAT (test code = 28 RATIO [...] (test code = 2219) 25 U/L LIPID [id number] 00:00:00 Test Item Value Reference Range Interpretation Comments CHOLESTEROL (test code = 2210) 134 MG/DL TRIGLYCERIDES (test code = 2232) 81 MG/DL HDL CHOLESTEROL (test code = 2220) 61 MG/DL CALC LDL CHOL (test code = 2237) 57 MG/DL RISK RATIO LDL/HDL (test code = 0.93 RATIO 2238) LIPID [id number] 00:00:00 Test Item Value Reference Range Interpretation Comments CHOLESTEROL (test code = 2210) 134 MG/DL TRIGLYCERIDES (test code = 2232) 81 MG/DL HDL CHOLESTEROL (test code = 2220) 61 MG/DL CALC LDL CHOL (test code = 2237) 57 MG/DL RISK RATIO LDL/HDL (test code = 0.93 RATIO 8) HEMOGLOBIN [id number] 00:00:00 Test Item Value Reference Range Interpretation Comments HEMOGLOBIN A1c (test code = 56525) 8.3 % HEMOGLOBIN [id number] 00:00:00 Test Item Value Reference Range Interpretation Comments HEMOGLOBIN A1c (test code = 24099) 8.3 % HEMOGLOBIN [id number] 00:00:00 Test Item Value Reference Range Interpretation Comments HEMOGLOBIN A1c (test code = 74057) 8.3 % LACTIC ACID, PLASMA [ADDED]2021-07-09 00:00:00 Test Item Value Reference Range Interpretation Comments LACTIC ACID, PLASMA (test code = 27.1 MG/DL 2056) LACTIC ACID, PLASMA [ADDED]2021-07-09 00:00:00 Test Item Value Reference Range Interpretation Comments LACTIC ACID, PLASMA (test code = 27.1 MG/DL 2056) COMPREHENSIVE METABOLIC [id number] 00:00:00 Test Item Value Reference Range Interpretation Comments GLUCOSE (test code = 2217) 397 MG/DL BUN (test code = 2208) 21 MG/DL CREATININE (test code = 2214) 0.75 MG/DL eGFR (2020 CKD-EPI) (test code 88 ML/MIN/1.73 = 24958) CALC BUN/CREAT (test code = 28 RATIO [...] code = 2219) 25 U/L COMPREHENSIVE METABOLIC [id number] 00:00:00 Test Item Value Reference Range Interpretation Comments GLUCOSE (test code = 2217) 397 MG/DL BUN (test code = 2208) 21 MG/DL CREATININE (test code = 2214) 0.75 MG/DL eGFR (2020 CKD-EPI) (test code 88 ML/MIN/1.73 = 73013) CALC BUN/CREAT (test code = 28 RATIO [...] (test code = 2219) 25 U/L LIPID [id number] 00:00:00 Test Item Value Reference Range Interpretation Comments CHOLESTEROL (test code = 2210) 134 MG/DL TRIGLYCERIDES (test code = 2232) 81 MG/DL HDL CHOLESTEROL (test code = 2220) 61 MG/DL CALC LDL CHOL (test code = 2237) 57 MG/DL RISK RATIO LDL/HDL (test code = 0.93 RATIO 2238) LIPID [id number] 00:00:00 Test Item Value Reference Range Interpretation Comments CHOLESTEROL (test code = 2210) 134 MG/DL TRIGLYCERIDES (test code = 2232) 81 MG/DL HDL CHOLESTEROL (test code = 2220) 61 MG/DL CALC LDL CHOL (test code = 2237) 57 MG/DL RISK RATIO LDL/HDL (test code = 0.93 RATIO 2238) HEMOGLOBIN [id number] 00:00:00 Test Item Value Reference Range Interpretation Comments HEMOGLOBIN A1c (test code = 92240) 8.3 % HEMOGLOBIN [id number] 00:00:00 Test Item Value Reference Range Interpretation Comments HEMOGLOBIN A1c (test code = 96944) 8.3 % HEMOGLOBIN [id number] 00:00:00 Test Item Value Reference Range Interpretation Comments HEMOGLOBIN A1c (test code = 25280) 8.3 % LACTIC ACID, PLASMA [ADDED]2021-07-09 00:00:00 Test Item Value Reference Range Interpretation Comments LACTIC ACID, PLASMA (test code = 27.1 MG/DL 2056) LACTIC ACID, PLASMA [ADDED]2021-07-09 00:00:00 Test Item Value Reference Range Interpretation Comments LACTIC ACID, PLASMA (test code = 27.1 MG/DL 2056) COMPREHENSIVE METABOLIC [id number] 00:00:00 Test Item Value Reference Range Interpretation Comments GLUCOSE (test code = 2217) 397 MG/DL BUN (test code = 2208) 21 MG/DL CREATININE (test code = 2214) 0.75 MG/DL eGFR (2020 CKD-EPI) (test code 88 ML/MIN/1.73 = 58196) CALC BUN/CREAT (test code = 28 RATIO [...] code = 2219) 25 U/L COMPREHENSIVE METABOLIC [id number] 00:00:00 Test Item Value Reference Range Interpretation Comments GLUCOSE (test code = 2217) 397 MG/DL BUN (test code = 2208) 21 MG/DL CREATININE (test code = 2214) 0.75 MG/DL eGFR (2020 CKD-EPI) (test code 88 ML/MIN/1.73 = 36410) CALC BUN/CREAT (test code = 28 RATIO [...] (test code = 2219) 25 U/L LIPID [id number] 00:00:00 Test Item Value Reference Range Interpretation Comments CHOLESTEROL (test code = 2210) 134 MG/DL TRIGLYCERIDES (test code = 2232) 81 MG/DL HDL CHOLESTEROL (test code = 2220) 61 MG/DL CALC LDL CHOL (test code = 2237) 57 MG/DL RISK RATIO LDL/HDL (test code = 0.93 RATIO 2238) LIPID [id number] 00:00:00 Test Item Value Reference Range Interpretation Comments CHOLESTEROL (test code = 2210) 134 MG/DL TRIGLYCERIDES (test code = 2232) 81 MG/DL HDL CHOLESTEROL (test code = 2220) 61 MG/DL CALC LDL CHOL (test code = 2237) 57 MG/DL RISK RATIO LDL/HDL (test code = 0.93 RATIO 2238) HEMOGLOBIN [id number] 00:00:00 Test Item Value Reference Range Interpretation Comments HEMOGLOBIN A1c (test code = 85756) 8.3 % HEMOGLOBIN [id number] 00:00:00 Test Item Value Reference Range Interpretation Comments HEMOGLOBIN A1c (test code = 03647) 8.3 % HEMOGLOBIN [id number] 00:00:00 Test Item Value Reference Range Interpretation Comments HEMOGLOBIN A1c (test code = 25637) 8.3 % LACTIC ACID, [id number] 15:11:52 Test Item Value Reference Range Interpretation Comments LACTIC ACID, 11.7 MG/DL 4.5-19.8 UNLESS OTHERWI SE PLASMA (test code INDICATED, ALL TESTING = 2056) PERFORMED ATCL[facility] NICAL PATHOLOGY LABOR ATORProLedge [facility], [facility] [address] [place] [address] [facility] DIRECTOR: Noelle VALLADARESIA NUMBER [id number] [facility] ACCREDITATION N O. [id number] LACTIC ACID, PLASMA [ADDED]2021-05-29 00:00:00 Test Item [...] (test code = 11.7 MG/DL 2056) HEMOGLOBIN [id number] 03:44:50 Test Item Value Reference Range Interpretation Comments HEMOGLOBIN A1c (test 7.5 % 4.2-5.6 H AMERIC AN DIABETES code = 19926) ASSOCIATION IDELINES FOR HGB A1C: PREDIABETES/INC REASED [...] TESTING OR LABORATORY C ONSULTATION. COMPREHENSIVE METABOLIC [id number] 03:25:55 Test Item Value Reference Range Interpretation Comments GLUCOSE (test code = 159 MG/DL 70-99 H 2216) BUN (test code = 17 MG/DL 8-23 2207) CREATININE (test 0.56 MG/DL 0.60-1.30 L code = 2214) eGFR (2020 CKD-EPI) 101 >60 (test code = 01524) ML/MIN/1.73 CALC BUN/CREAT (test 30 RATIO 6-28 H code = 2235) SODIUM (test code = 141 MEQ/L 644-954 8700) POTASSIUM (test code 4.4 MEQ/L 3.5-5.4 = 2227) CHLORIDE (test code 101 MEQ/L 95-107 = 2214) CARBON DIOXIDE (test 25 MEQ/L 19-31 code = 220) CALCIUM (test code = 9.7 MG/DL 8.5-10.5 2208) PROTEIN, TOTAL (test 6.7 G/DL 6.1-8.3 code = 222) ALBUMIN (test code = 4.6 G/DL 3.5-5.2 2200) CALC GLOBULIN (test 2.1 G/DL 1.9-3.7 code = 2240) CALC A/G RATIO (test 2.2 RATIO 1.0-2.6 code = 2234) BILIRUBIN, TOTAL <0.2 MG/DL See_Comment [Automated message] (test code = 2207) The syste [employer] which generated this result transmit shikha reference range : <=1.2. The refe rence range was not u sed to interpret th is result as normal/abnormal . ALKALINE PHOSPHATASE 60 U/L 40-140 (test code = 2204) AST (test code = 20 U/L 9-40 2217) ALT (test code = 21 U/L 5-40 2218) COMPREHENSIVE METABOLIC PANEL [ADDED]2021-05-28 00:00:00 Test Item Value Reference Range Interpretation Comments GLUCOSE (test code = 221) 159 MG/DL BUN (test code = 2208) 17 MG/DL CREATININE (test code = 2214) 0.56 MG/DL eGFR (2020 CKD-EPI) (test 101 ML/MIN/1.73 code = 13353) CALC BUN/CREAT (test code = 30 RATIO [...] ALKALINE PHOSPHATASE (test 60 U/L code = 2203) AST (test code = 2218) 20 U/L ALT (test code = 2219) 21 U/L COMPREHENSIVE METABOLIC PANEL [ADDED]2021-05-28 00:00:00 Test Item Value Reference Range Interpretation Comments GLUCOSE (test code = 2217) 159 MG/DL BUN (test code = 2208) 17 MG/DL CREATININE (test code = 2214) 0.56 MG/DL eGFR (2020 CKD-EPI) (test 101 ML/MIN/1.73 code = 81025) CALC BUN/CREAT (test code = 30 RATIO [...] Interpretation Comments HEMOGLOBIN A1c (test code = 15118) 7.5 % HEMOGLOBIN A1c [ADDED]2021-05-28 00:00:00 Test Item Value Reference Range Interpretation Comments HEMOGLOBIN A1c (test code = 59062) 7.5 % HEMOGLOBIN A1c [ADDED]2021-05-28 00:00:00 Test Item Value Reference Range Interpretation Comments HEMOGLOBIN A1c (test code = 36351) 7.5 % COMPREHENSIVE METABOLIC PANEL [ADDED]2021-05-28 00:00:00 Test Item Value Reference Range Interpretation Comments GLUCOSE (test code = 2217) 159 MG/DL BUN (test code = 2208) 17 MG/DL CREATININE (test code = 2214) 0.56 MG/DL eGFR (2020 CKD-EPI) (test 101 ML/MIN/1.73 code = 58424) CALC BUN/CREAT (test code = 30 RATIO [...] (2020 CKD-EPI) (test 101 ML/MIN/1.73 code = 53218) CALC BUN/CREAT (test code = 30 RATIO [...] Interpretation Comments HEMOGLOBIN A1c (test code = 81691) 7.5 % HEMOGLOBIN A1c [ADDED]2021-05-28 00:00:00 Test Item Value Reference Range Interpretation Comments HEMOGLOBIN A1c (test code = 93301) 7.5 % HEMOGLOBIN A1c [ADDED]2021-05-28 00:00:00 Test Item Value Reference Range Interpretation Comments HEMOGLOBIN A1c (test code = 87055) 7.5 % COMPREHENSIVE METABOLIC PANEL [ADDED]2021-05-28 00:00:00 Test Item Value Reference Range Interpretation Comments GLUCOSE (test code = 2217) 159 MG/DL BUN (test code = 2208) 17 MG/DL CREATININE (test code = 2214) 0.56 MG/DL eGFR (2020 CKD-EPI) (test 101 ML/MIN/1.73 code = 86805) CALC BUN/CREAT (test code = 30 RATIO [...] (2020 CKD-EPI) (test 101 ML/MIN/1.73 code = 92420) CALC BUN/CREAT (test code = 30 RATIO [...] Interpretation Comments HEMOGLOBIN A1c (test code = 02230) 7.5 % HEMOGLOBIN A1c [ADDED]2021-05-28 00:00:00 Test Item Value Reference Range Interpretation Comments HEMOGLOBIN A1c (test code = 97757) 7.5 % HEMOGLOBIN A1c [ADDED]2021-05-28 00:00:00 Test Item Value Reference Range Interpretation Comments HEMOGLOBIN A1c (test code = 59135) 7.5 % COMPREHENSIVE METABOLIC PANEL [ADDED]2021-05-28 00:00:00 Test Item Value Reference Range Interpretation Comments GLUCOSE (test code = 2217) 159 MG/DL BUN (test code = 2208) 17 MG/DL CREATININE (test code = 2214) 0.56 MG/DL eGFR (2020 CKD-EPI) (test 101 ML/MIN/1.73 code = 42473) CALC BUN/CREAT (test code = 30 RATIO [...] (2020 CKD-EPI) (test 101 ML/MIN/1.73 code = 23417) CALC BUN/CREAT (test code = 30 RATIO [...] Interpretation Comments HEMOGLOBIN A1c (test code = 44591) 7.5 % HEMOGLOBIN A1c [ADDED]2021-05-28 00:00:00 Test Item Value Reference Range Interpretation Comments HEMOGLOBIN A1c (test code = 40704) 7.5 % HEMOGLOBIN A1c [ADDED]2021-05-28 00:00:00 Test Item Value Reference Range Interpretation Comments HEMOGLOBIN A1c (test code = 64656) 7.5 % LACTIC ACID, [id number] 15:10:19 Test Item Value Reference Range Interpretation Comments LACTIC ACID, 34.5 MG/DL 4.5-19.8 H UNLESS OTHERWI SE PLASMA (test code INDICATED, ALL TESTING = 2056) PERFORMED [facility]ITALProL[facility] [address] [place] [id number] [place] [address] DIRECTOR: TITA PARIKH M.D. CLIA NUMBER [id number] CAP ACCREDITATION N O. [id number] LACTIC ACID, PLASMA [ADDED]2021-05-16 00:00:00 Test Item [...] code = 34.5 MG/DL 2056) LACTIC ACID, [id number] 13:30:20 Test Item Value Reference Range Interpretation Comments LACTIC ACID, 18.5 MG/DL 4.5-19.8 UNLESS OTHERWI SE PLASMA (test code INDICATED, ALL TESTING = 2056) PERFORMED ATCLI NICAL PATHOLOGY LABOR [facility]Pro[facility] [address] [place] [address] [facility] DIRECTOR: TITA PARIKH M.D. CLIA NUMBER [id number] CAP ACCREDITATION N O. [id number] LACTIC ACID, [id number] 00:00:00 Test Item Value Reference Range Interpretation Comments LACTIC ACID, PLASMA (test code = 18.5 MG/DL 2056) LACTIC ACID, [id number] 00:00:00 Test Item Value Reference Range Interpretation Comments LACTIC ACID, PLASMA (test code = 18.5 MG/DL 2056) LACTIC ACID, [id number] 00:00:00 Test Item Value Reference Range Interpretation Comments LACTIC ACID, PLASMA (test code = 18.5 MG/DL 2056) LACTIC ACID, [id number] 00:00:00 Test Item Value Reference Range Interpretation Comments LACTIC ACID, PLASMA (test code = 18.5 MG/DL 2056) LACTIC ACID, [id number] 00:00:00 Test Item Value Reference Range Interpretation Comments LACTIC ACID, PLASMA (test code = 18.5 MG/DL 2056) LACTIC ACID, [id number] 00:00:00 Test Item Value Reference Range Interpretation Comments LACTIC ACID, PLASMA (test code = 18.5 MG/DL 2056) LACTIC ACID, [id number] 00:00:00 Test Item Value Reference Range Interpretation Comments LACTIC ACID, PLASMA (test code = 18.5 MG/DL 2056) LACTIC ACID, [id number] 00:00:00 Test Item Value Reference Range Interpretation Comments LACTIC ACID, PLASMA (test code = 18.5 MG/DL 2056) TSH, THIRD [id number] 06:41:17 Test Item Value Reference Range Interpretation Comments TSH, THIRD GENERATION (test code 1.300 UIU/ML 0.400-4.100 = 2821) LIPID [id number] 04:18:20 Test Item Value Reference Range Interpretation [...] MOREINFORMATION , SEE CLIENT ANNOUNCE MENT AT [email or web address] RISK RATIO LDL/HDL 0.85 RATIO <3.22 (test code = 2238) COMPREHENSIVE METABOLIC [id number] 04:18:20 Test Item Value Reference Range Interpretation Comments GLUCOSE (test code = 93 MG/DL 70-99 2216) BUN (test code = 15 MG/DL 8-23 2207) CREATININE (test 0.72 MG/DL 0.60-1.30 code = 2214) eGFR (2020 CKD-EPI) 93 ML/MIN/1.73 >60 (test code = 27360) CALC BUN/CREAT (test 21 RATIO 6-28 code = 2235) SODIUM (test code = 143 MEQ/L 968-324 7976) POTASSIUM (test code 3.8 MEQ/L 3.5-5.4 = [...] code = 36 U/L 5-40 2218) HEMOGLOBIN [id number] 03:31:34 Test Item Value Reference Range Interpretation Comments HEMOGLOBIN A1c (test 7.8 % 4.2-5.6 H AMERI CAN DIABETES code = 41273) ASSOCIATION IDELINES FOR HGB A1C: PREDIABETES/INC REASED [...] ALTERN ATE TESTING OR LABORATORY C ONSULTATION. [id number] 00:00:00 Test Item Value Reference Range Interpretation Comments TSH, THIRD GENERATION (test code 1.300 UIU/ML = 2821) [id number] 00:00:00 Test Item Value Reference Range Interpretation Comments TSH, THIRD GENERATION (test code 1.300 UIU/ML = 2821) [id number] 00:00:00 Test Item Value Reference Range Interpretation Comments TSH, THIRD GENERATION (test code 1.300 UIU/ML = 2821) LIPID [id number] 00:00:00 Test Item Value Reference Range Interpretation Comments CHOLESTEROL (test code = 2210) 125 MG/DL TRIGLYCERIDES (test code = 2232) 167 MG/DL HDL CHOLESTEROL (test code = 2220) 54 MG/DL CALC LDL CHOL (test code = 2237) 46 MG/DL RISK RATIO LDL/HDL (test code = 0.85 RATIO 8) LIPID [id number] 00:00:00 Test Item Value Reference Range Interpretation Comments CHOLESTEROL (test code = 2210) 125 MG/DL TRIGLYCERIDES (test code = 2232) 167 MG/DL HDL CHOLESTEROL (test code = 2220) 54 MG/DL CALC LDL CHOL (test code = 2237) 46 MG/DL RISK RATIO LDL/HDL (test code = 0.85 RATIO 2238) HEMOGLOBIN [id number] 00:00:00 Test Item Value Reference Range Interpretation Comments HEMOGLOBIN A1c (test code = 09614) 7.8 % HEMOGLOBIN [id number] 00:00:00 Test Item Value Reference Range Interpretation Comments HEMOGLOBIN A1c (test code = 77368) 7.8 % HEMOGLOBIN [id number] 00:00:00 Test Item Value Reference Range Interpretation Comments HEMOGLOBIN A1c (test code = 43722) 7.8 % COMPREHENSIVE METABOLIC [id number] 00:00:00 Test Item Value Reference Range Interpretation Comments GLUCOSE (test code = 2217) 93 MG/DL BUN (test code = 2208) 15 MG/DL CREATININE (test code = 2214) 0.72 MG/DL eGFR (2020 CKD-EPI) (test code 93 ML/MIN/1.73 = 42259) CALC BUN/CREAT (test code = 21 RATIO [...] code = 2219) 36 U/L COMPREHENSIVE METABOLIC [id number] 00:00:00 Test Item Value Reference Range Interpretation Comments GLUCOSE (test code = 2217) 93 MG/DL BUN (test code = 2208) 15 MG/DL CREATININE (test code = 2214) 0.72 MG/DL eGFR (2020 CKD-EPI) (test code 93 ML/MIN/1.73 = 25910) CALC BUN/CREAT (test code = 21 RATIO 2234) SODIUM (test code = 2231) 143 MEQ/L POTASSIUM (test code = 2228) 3.8 MEQ/L CHLORIDE (test code = 2215) 98 MEQ/L CARBON DIOXIDE (test code = 29 MEQ/L 2205) CALCIUM (test code = 220) 9.8 MG/DL PROTEIN, TOTAL (test code = 6.6 G/DL 2228) ALBUMIN (test code = 220) 4.2 G/DL CALC GLOBULIN (test code = 2.4 G/DL 2239) CALC A/G RATIO (test code = 1.8 RATIO 2233) BILIRUBIN, TOTAL (test code = 0.3 MG/DL 2206) ALKALINE PHOSPHATASE (test 61 U/L code = 220) AST (test code = 2218) 20 U/L ALT (test code = 2219) 36 U/L [id number] 00:00:00 Test Item Value Reference Range Interpretation Comments TSH, THIRD GENERATION (test code 1.300 UIU/ML = 2821) [id number] 00:00:00 Test Item Value Reference Range Interpretation Comments TSH, THIRD GENERATION (test code 1.300 UIU/ML = 2821) [id number] 00:00:00 Test Item Value Reference Range Interpretation Comments TSH, THIRD GENERATION (test code 1.300 UIU/ML = 2821) LIPID [id number] 00:00:00 Test Item Value Reference Range Interpretation Comments CHOLESTEROL (test code = 2210) 125 MG/DL TRIGLYCERIDES (test code = 2232) 167 MG/DL HDL CHOLESTEROL (test code = 2220) 54 MG/DL CALC LDL CHOL (test code = 2237) 46 MG/DL RISK RATIO LDL/HDL (test code = 0.85 RATIO 2238) LIPID [id number] 00:00:00 Test Item Value Reference Range Interpretation Comments CHOLESTEROL (test code = 2210) 125 MG/DL TRIGLYCERIDES (test code = 2232) 167 MG/DL HDL CHOLESTEROL (test code = 2220) 54 MG/DL CALC LDL CHOL (test code = 2237) 46 MG/DL RISK RATIO LDL/HDL (test code = 0.85 RATIO 2238) HEMOGLOBIN [id number] 00:00:00 Test Item Value Reference Range Interpretation Comments HEMOGLOBIN A1c (test code = 08153) 7.8 % HEMOGLOBIN [id number] 00:00:00 Test Item Value Reference Range Interpretation Comments HEMOGLOBIN A1c (test code = 52107) 7.8 % HEMOGLOBIN [id number] 00:00:00 Test Item Value Reference Range Interpretation Comments HEMOGLOBIN A1c (test code = 24813) 7.8 % COMPREHENSIVE METABOLIC [id number] 00:00:00 Test Item Value Reference Range Interpretation Comments GLUCOSE (test code = 2217) 93 MG/DL BUN (test code = 2208) 15 MG/DL CREATININE (test code = 2214) 0.72 MG/DL eGFR (2020 CKD-EPI) (test code 93 ML/MIN/1.73 = 77690) CALC BUN/CREAT (test code = 21 RATIO [...] CALC GLOBULIN (test code = 2.4 G/DL 0) CALC A/G RATIO (test code = 1.8 RATIO 2234) BILIRUBIN, TOTAL (test code = 0.3 MG/DL 2206) ALKALINE PHOSPHATASE (test 61 U/L code = 2204) AST (test code = 2218) 20 U/L ALT (test code = 2219) 36 U/L COMPREHENSIVE METABOLIC [id number] 00:00:00 Test Item Value Reference Range Interpretation Comments GLUCOSE (test code = 2217) 93 MG/DL BUN (test code = 2208) 15 MG/DL CREATININE (test code = 2214) 0.72 MG/DL eGFR (2020 CKD-EPI) (test code 93 ML/MIN/1.73 = 61322) CALC BUN/CREAT (test code = 21 RATIO [...] ALT (test code = 2219) 36 U/L [id number] 00:00:00 Test Item Value Reference Range Interpretation Comments TSH, THIRD GENERATION (test code 1.300 UIU/ML = 2821) [id number] 00:00:00 Test Item Value Reference Range Interpretation Comments TSH, THIRD GENERATION (test code 1.300 UIU/ML = 2821) [id number] 00:00:00 Test Item Value Reference Range Interpretation Comments TSH, THIRD GENERATION (test code 1.300 UIU/ML = 2821) LIPID [id number] 00:00:00 Test Item Value Reference Range Interpretation Comments CHOLESTEROL (test code = 2210) 125 MG/DL TRIGLYCERIDES (test code = 2232) 167 MG/DL HDL CHOLESTEROL (test code = 2220) 54 MG/DL CALC LDL CHOL (test code = 2237) 46 MG/DL RISK RATIO LDL/HDL (test code = 0.85 RATIO 2238) LIPID [id number] 00:00:00 Test Item Value Reference Range Interpretation Comments CHOLESTEROL (test code = 2210) 125 MG/DL TRIGLYCERIDES (test code = 2232) 167 MG/DL HDL CHOLESTEROL (test code = 2220) 54 MG/DL CALC LDL CHOL (test code = 2237) 46 MG/DL RISK RATIO LDL/HDL (test code = 0.85 RATIO 2238) HEMOGLOBIN [id number] 00:00:00 Test Item Value Reference Range Interpretation Comments HEMOGLOBIN A1c (test code = 24404) 7.8 % HEMOGLOBIN [id number] 00:00:00 Test Item Value Reference Range Interpretation Comments HEMOGLOBIN A1c (test code = 32071) 7.8 % HEMOGLOBIN [id number] 00:00:00 Test Item Value Reference Range Interpretation Comments HEMOGLOBIN A1c (test code = 57778) 7.8 % COMPREHENSIVE METABOLIC [id number] 00:00:00 Test Item Value Reference Range Interpretation Comments GLUCOSE (test code = 2217) 93 MG/DL BUN (test code = 2208) 15 MG/DL CREATININE (test code = 2214) 0.72 MG/DL eGFR (2020 CKD-EPI) (test code 93 ML/MIN/1.73 = 13308) CALC BUN/CREAT (test code = 21 RATIO [...] code = 2219) 36 U/L COMPREHENSIVE METABOLIC [id number] 00:00:00 Test Item Value Reference Range Interpretation Comments GLUCOSE (test code = 2217) 93 MG/DL BUN (test code = 2208) 15 MG/DL CREATININE (test code = 2214) 0.72 MG/DL eGFR (2020 CKD-EPI) (test code 93 ML/MIN/1.73 = 94370) CALC BUN/CREAT (test code = 21 RATIO [...] ALT (test code = 2219) 36 U/L [id number] 00:00:00 Test Item Value Reference Range Interpretation Comments TSH, THIRD GENERATION (test code 1.300 UIU/ML = 2821) [id number] 00:00:00 Test Item Value Reference Range Interpretation Comments TSH, THIRD GENERATION (test code 1.300 UIU/ML = 2821) [id number] 00:00:00 Test Item Value Reference Range Interpretation Comments TSH, THIRD GENERATION (test code 1.300 UIU/ML = 2821) LIPID [id number] 00:00:00 Test Item Value Reference Range Interpretation Comments CHOLESTEROL (test code = 2210) 125 MG/DL TRIGLYCERIDES (test code = 2232) 167 MG/DL HDL CHOLESTEROL (test code = 2220) 54 MG/DL CALC LDL CHOL (test code = 2237) 46 MG/DL RISK RATIO LDL/HDL (test code = 0.85 RATIO 2238) LIPID [id number] 00:00:00 Test Item Value Reference Range Interpretation Comments CHOLESTEROL (test code = 2210) 125 MG/DL TRIGLYCERIDES (test code = 2232) 167 MG/DL HDL CHOLESTEROL (test code = 2220) 54 MG/DL CALC LDL CHOL (test code = 2237) 46 MG/DL RISK RATIO LDL/HDL (test code = 0.85 RATIO 2238) HEMOGLOBIN [id number] 00:00:00 Test Item Value Reference Range Interpretation Comments HEMOGLOBIN A1c (test code = 28603) 7.8 % HEMOGLOBIN [id number] 00:00:00 Test Item Value Reference Range Interpretation Comments HEMOGLOBIN A1c (test code = 97911) 7.8 % HEMOGLOBIN [id number] 00:00:00 Test Item Value Reference Range Interpretation Comments HEMOGLOBIN A1c (test code = 77877) 7.8 % COMPREHENSIVE METABOLIC [id number] 00:00:00 Test Item Value Reference Range Interpretation Comments GLUCOSE (test code = 2217) 93 MG/DL BUN (test code = 2208) 15 MG/DL CREATININE (test code = 2214) 0.72 MG/DL eGFR (2020 CKD-EPI) (test code 93 ML/MIN/1.73 = 73766) CALC BUN/CREAT (test code = 21 RATIO [...] CALC GLOBULIN (test code = 2.4 G/DL 224) CALC A/G RATIO (test code = 1.8 RATIO 2234) BILIRUBIN, TOTAL (test code = 0.3 MG/DL 2206) ALKALINE PHOSPHATASE (test 61 U/L code = 2204) AST (test code = 2218) 20 U/L ALT (test code = 2219) 36 U/L COMPREHENSIVE METABOLIC [id number] 00:00:00 Test Item Value Reference Range Interpretation Comments GLUCOSE (test code = 2217) 93 MG/DL BUN (test code = 2208) 15 MG/DL CREATININE (test code = 2214) 0.72 MG/DL eGFR (2020 CKD-EPI) (test code 93 ML/MIN/1.73 = 95142) CALC BUN/CREAT (test code = 21 RATIO [...] = 2219) 36 U/L MICROALBUMIN/CREATININE, RANDOM AND [id number] 00:00:00 Test Item Value Reference Range Interpretation Comments CREATININE, URINE, CONC. (test 128.0 MG/DL code = 2072) ALBUMIN, URINE, RANDOM (test code 2.2 MG/DL = 61676) CALC ALBUMIN/CREAT, RND (test 17 MG/G code = 37853) MICROALBUMIN/CREATININE, RANDOM AND [id number] 00:00:00 Test Item Value Reference Range Interpretation Comments CREATININE, URINE, CONC. (test 128.0 MG/DL code = 2072) ALBUMIN, URINE, RANDOM (test code 2.2 MG/DL = 60811) CALC ALBUMIN/CREAT, RND (test 17 MG/G code = 10209) HEMOGLOBIN [id number] 00:00:00 Test Item Value Reference Range Interpretation Comments HEMOGLOBIN A1c (test code = 02389) 10.9 % HEMOGLOBIN [id number] 00:00:00 Test Item Value Reference Range Interpretation Comments HEMOGLOBIN A1c (test code = 13426) 10.9 % HEMOGLOBIN [id number] 00:00:00 Test Item Value Reference Range Interpretation Comments HEMOGLOBIN A1c (test code = 24430) 10.9 % MICROALBUMIN/CREATININE, RANDOM AND [id number] 00:00:00 Test Item Value Reference Range Interpretation Comments CREATININE, URINE, CONC. (test 128.0 MG/DL code = 2072) ALBUMIN, URINE, RANDOM (test code 2.2 MG/DL = 66149) CALC ALBUMIN/CREAT, RND (test 17 MG/G code = 82291) MICROALBUMIN/CREATININE, RANDOM AND [id number] 00:00:00 Test Item Value Reference Range Interpretation Comments CREATININE, URINE, CONC. (test 128.0 MG/DL code = 2072) ALBUMIN, URINE, RANDOM (test code 2.2 MG/DL = 36426) CALC ALBUMIN/CREAT, RND (test 17 MG/G code = 16675) HEMOGLOBIN [id number] 00:00:00 Test Item Value Reference Range Interpretation Comments HEMOGLOBIN A1c (test code = 76974) 10.9 % HEMOGLOBIN [id number] 00:00:00 Test Item Value Reference Range Interpretation Comments HEMOGLOBIN A1c (test code = 11072) 10.9 % HEMOGLOBIN [id number] 00:00:00 Test Item Value Reference Range Interpretation Comments HEMOGLOBIN A1c (test code = 09235) 10.9 % MICROALBUMIN/CREATININE, RANDOM AND [id number] 00:00:00 Test Item Value Reference Range Interpretation Comments CREATININE, URINE, CONC. (test 128.0 MG/DL code = 2072) ALBUMIN, URINE, RANDOM (test code 2.2 MG/DL = 29529) CALC ALBUMIN/CREAT, RND (test 17 MG/G code = 73637) MICROALBUMIN/CREATININE, RANDOM AND [id number] 00:00:00 Test Item Value Reference Range Interpretation Comments CREATININE, URINE, CONC. (test 128.0 MG/DL code = 2072) ALBUMIN, URINE, RANDOM (test code 2.2 MG/DL = 31552) CALC ALBUMIN/CREAT, RND (test 17 MG/G code = 71619) HEMOGLOBIN [id number] 00:00:00 Test Item Value Reference Range Interpretation Comments HEMOGLOBIN A1c (test code = 43804) 10.9 % HEMOGLOBIN [id number] 00:00:00 Test Item Value Reference Range Interpretation Comments HEMOGLOBIN A1c (test code = 25391) 10.9 % HEMOGLOBIN [id number] 00:00:00 Test Item Value Reference Range Interpretation Comments HEMOGLOBIN A1c (test code = 75815) 10.9 % MICROALBUMIN/CREATININE, RANDOM AND [id number] 00:00:00 Test Item Value Reference Range Interpretation Comments CREATININE, URINE, CONC. (test 128.0 MG/DL code = 2072) ALBUMIN, URINE, RANDOM (test code 2.2 MG/DL = 65716) CALC ALBUMIN/CREAT, RND (test 17 MG/G code = 00165) MICROALBUMIN/CREATININE, RANDOM AND [id number] 00:00:00 Test Item Value Reference Range Interpretation Comments CREATININE, URINE, CONC. (test 128.0 MG/DL code = 2072) ALBUMIN, URINE, RANDOM (test code 2.2 MG/DL = 69227) CALC ALBUMIN/CREAT, RND (test 17 MG/G code = 92644) HEMOGLOBIN [id number] 00:00:00 Test Item Value Reference Range Interpretation Comments HEMOGLOBIN A1c (test code = 32612) 10.9 % HEMOGLOBIN [id number] 00:00:00 Test Item Value Reference Range Interpretation Comments HEMOGLOBIN A1c (test code = 69527) 10.9 % HEMOGLOBIN [id number] 00:00:00 Test Item Value Reference Range Interpretation Comments HEMOGLOBIN A1c (test code = 68059) 10.9 % HEMOGLOBIN [id number] 00:00:00 Test Item Value Reference Range Interpretation Comments HEMOGLOBIN A1c (test code = 21961) 10.9 % HEMOGLOBIN [id number] 00:00:00 Test Item Value Reference Range Interpretation Comments HEMOGLOBIN A1c (test code = 08790) 10.9 % HEMOGLOBIN [id number] 00:00:00 Test Item Value Reference Range Interpretation Comments HEMOGLOBIN A1c (test code = 15928) 10.9 % HEMOGLOBIN [id number] 00:00:00 Test Item Value Reference Range Interpretation Comments HEMOGLOBIN A1c (test code = 11447) 10.9 % HEMOGLOBIN [id number] 00:00:00 Test Item Value Reference Range Interpretation Comments HEMOGLOBIN A1c (test code = 70649) 10.9 % HEMOGLOBIN [id number] 00:00:00 Test Item Value Reference Range Interpretation Comments HEMOGLOBIN A1c (test code = 13051) 10.9 % HEMOGLOBIN [id number] 00:00:00 Test Item Value Reference Range Interpretation Comments HEMOGLOBIN A1c (test code = 36805) 10.9 % HEMOGLOBIN [id number] 00:00:00 Test Item Value Reference Range Interpretation Comments HEMOGLOBIN A1c (test code = 95952) 10.9 % HEMOGLOBIN [id number] 00:00:00 Test Item Value Reference Range Interpretation Comments HEMOGLOBIN A1c (test code = 48471) 10.9 % HEMOGLOBIN [id number] 00:00:00 Test Item Value Reference Range Interpretation Comments HEMOGLOBIN A1c (test code = 61521) 10.9 % HEMOGLOBIN [id number] 00:00:00 Test Item Value Reference Range Interpretation Comments HEMOGLOBIN A1c (test code = 34041) 10.9 % HEMOGLOBIN [id number] 00:00:00 Test Item Value Reference Range Interpretation Comments HEMOGLOBIN A1c (test code = 49860) 10.9 % COMPREHENSIVE METABOLIC [id number] 00:00:00 Test Item Value Reference Range Interpretation Comments GLUCOSE (test code = 2217) 105 MG/DL BUN (test code = 2208) 17 MG/DL CREATININE (test code = 2214) 0.68 MG/DL eGFR AMER. (test code 107 ML/MIN/1.73 = 62928) eGFR NON- AMER. (test 92 ML/MIN/1.73 code = 42733) CALC BUN/CREAT (test code = 25 RATIO [...] A/G RATIO (test code = 2.3 RATIO 2233) BILIRUBIN, TOTAL (test code = 0.3 MG/DL 2206) ALKALINE PHOSPHATASE (test 62 U/L code = 2204) AST (test code = 2218) 23 U/L ALT (test code = 2219) 20 U/L COMPREHENSIVE METABOLIC [id number] 00:00:00 Test Item Value Reference Range Interpretation Comments GLUCOSE (test code = 2217) 105 MG/DL BUN (test code = 2208) 17 MG/DL CREATININE (test code = 2214) 0.68 MG/DL eGFR AMER. (test code 107 ML/MIN/1.73 = 02824) eGFR NON- AMER. (test 92 ML/MIN/1.73 code = 89428) CALC BUN/CREAT (test code = 25 RATIO [...] = 0.3 MG/DL 2207) ALKALINE PHOSPHATASE (test 62 U/L code = 2204) AST (test code = 2218) 23 U/L ALT (test code = 2219) 20 U/L [id number] 00:00:00 Test Item Value Reference Range Interpretation Comments TSH, THIRD GENERATION (test code 2.260 UIU/ML = 2821) [id number] 00:00:00 Test Item Value Reference Range Interpretation Comments TSH, THIRD GENERATION (test code 2.260 UIU/ML = 2821) [id number] 00:00:00 Test Item Value Reference Range Interpretation Comments TSH, THIRD GENERATION (test code 2.260 UIU/ML = 2821) CBC W/AUTO [id number] 00:00:00 Test Item Value Reference Range Interpretation [...] code = 1015) 218 K/UL CBC W/AUTO [id number] 00:00:00 Test Item Value Reference Range Interpretation [...] code = 1015) 218 K/UL CBC W/AUTO [id number] 00:00:00 Test Item Value Reference Range Interpretation [...] (test code = 1015) 218 K/UL HEMOGLOBIN [id number] 00:00:00 Test Item Value Reference Range Interpretation Comments HEMOGLOBIN A1c (test code = 70395) 5.9 % HEMOGLOBIN [id number] 00:00:00 Test Item Value Reference Range Interpretation Comments HEMOGLOBIN A1c (test code = 58730) 5.9 % HEMOGLOBIN [id number] 00:00:00 Test Item Value Reference Range Interpretation Comments HEMOGLOBIN A1c (test code = 69823) 5.9 % LIPID [id number] 00:00:00 Test Item Value Reference Range Interpretation Comments CHOLESTEROL (test code = 2210) 131 MG/DL TRIGLYCERIDES (test code = 2232) 190 MG/DL HDL CHOLESTEROL (test code = 2220) 42 MG/DL CALC LDL CHOL (test code = 2237) 63 MG/DL RISK RATIO LDL/HDL (test code = 1.50 RATIO 2238) LIPID [id number] 00:00:00 Test Item Value Reference Range Interpretation Comments CHOLESTEROL (test code = 2210) 131 MG/DL TRIGLYCERIDES (test code = 2232) 190 MG/DL HDL CHOLESTEROL (test code = 2220) 42 MG/DL CALC LDL CHOL (test code = 2237) 63 MG/DL RISK RATIO LDL/HDL (test code = 1.50 RATIO 2238) COMPREHENSIVE METABOLIC [id number] 00:00:00 Test Item Value Reference Range Interpretation Comments GLUCOSE (test code = 2217) 105 MG/DL BUN (test code = 2208) 17 MG/DL CREATININE (test code = 2214) 0.68 MG/DL eGFR AMER. (test code 107 ML/MIN/1.73 = 65548) eGFR NON- AMER. (test 92 ML/MIN/1.73 code = 85583) CALC BUN/CREAT (test code = 25 RATIO [...] A/G RATIO (test code = 2.3 RATIO 4) BILIRUBIN, TOTAL (test code = 0.3 MG/DL 2206) ALKALINE PHOSPHATASE (test 62 U/L code = 2204) AST (test code = 2218) 23 U/L ALT (test code = 2219) 20 U/L COMPREHENSIVE METABOLIC [id number] 00:00:00 Test Item Value Reference Range Interpretation Comments GLUCOSE (test code = 2217) 105 MG/DL BUN (test code = 2208) 17 MG/DL CREATININE (test code = 2214) 0.68 MG/DL eGFR AMER. (test code 107 ML/MIN/1.73 = 78799) eGFR NON- AMER. (test 92 ML/MIN/1.73 code = 57254) CALC BUN/CREAT (test code = 25 RATIO [...] CALC GLOBULIN (test code = 2.0 G/DL 0) CALC A/G RATIO (test code = 2.3 RATIO 4) BILIRUBIN, TOTAL (test code = 0.3 MG/DL 2206) ALKALINE PHOSPHATASE (test 62 U/L code = 2204) AST (test code = 2218) 23 U/L ALT (test code = 2219) 20 U/L [id number] 00:00:00 Test Item Value Reference Range Interpretation Comments TSH, THIRD GENERATION (test code 2.260 UIU/ML = 2821) [id number] 00:00:00 Test Item Value Reference Range Interpretation Comments TSH, THIRD GENERATION (test code 2.260 UIU/ML = 2821) [id number] 00:00:00 Test Item Value Reference Range Interpretation Comments TSH, THIRD GENERATION (test code 2.260 UIU/ML = 2821) CBC W/AUTO [id number] 00:00:00 Test Item Value Reference Range Interpretation [...] code = 1015) 218 K/UL CBC W/AUTO [id number] 00:00:00 Test Item Value Reference Range Interpretation [...] code = 1015) 218 K/UL CBC W/AUTO [id number] 00:00:00 Test Item Value Reference Range Interpretation [...] (test code = 1015) 218 K/UL HEMOGLOBIN [id number] 00:00:00 Test Item Value Reference Range Interpretation Comments HEMOGLOBIN A1c (test code = 57766) 5.9 % HEMOGLOBIN [id number] 00:00:00 Test Item Value Reference Range Interpretation Comments HEMOGLOBIN A1c (test code = 75337) 5.9 % HEMOGLOBIN [id number] 00:00:00 Test Item Value Reference Range Interpretation Comments HEMOGLOBIN A1c (test code = 58469) 5.9 % LIPID [id number] 00:00:00 Test Item Value Reference Range Interpretation Comments CHOLESTEROL (test code = 2210) 131 MG/DL TRIGLYCERIDES (test code = 2232) 190 MG/DL HDL CHOLESTEROL (test code = 2220) 42 MG/DL CALC LDL CHOL (test code = 2237) 63 MG/DL RISK RATIO LDL/HDL (test code = 1.50 RATIO 2238) LIPID [id number] 00:00:00 Test Item Value Reference Range Interpretation Comments CHOLESTEROL (test code = 2210) 131 MG/DL TRIGLYCERIDES (test code = 2232) 190 MG/DL HDL CHOLESTEROL (test code = 2220) 42 MG/DL CALC LDL CHOL (test code = 2237) 63 MG/DL RISK RATIO LDL/HDL (test code = 1.50 RATIO 2238) COMPREHENSIVE METABOLIC [id number] 00:00:00 Test Item Value Reference Range Interpretation Comments GLUCOSE (test code = 2217) 105 MG/DL BUN (test code = 2208) 17 MG/DL CREATININE (test code = 2214) 0.68 MG/DL eGFR AMER. (test code 107 ML/MIN/1.73 = 73151) eGFR NON- AMER. (test 92 ML/MIN/1.73 code = 12225) CALC BUN/CREAT (test code = 25 RATIO [...] code = 2219) 20 U/L COMPREHENSIVE METABOLIC [id number] 00:00:00 Test Item Value Reference Range Interpretation Comments GLUCOSE (test code = 2217) 105 MG/DL BUN (test code = 2208) 17 MG/DL CREATININE (test code = 2214) 0.68 MG/DL eGFR AMER. (test code 107 ML/MIN/1.73 = 26851) eGFR NON- AMER. (test 92 ML/MIN/1.73 code = 14614) CALC BUN/CREAT (test code = 25 RATIO [...] A/G RATIO (test code = 2.3 RATIO 2233) BILIRUBIN, TOTAL (test code = 0.3 MG/DL 2206) ALKALINE PHOSPHATASE (test 62 U/L code = 2204) AST (test code = 2218) 23 U/L ALT (test code = 2219) 20 U/L [id number] 00:00:00 Test Item Value Reference Range Interpretation Comments TSH, THIRD GENERATION (test code 2.260 UIU/ML = 2821) [id number] 00:00:00 Test Item Value Reference Range Interpretation Comments TSH, THIRD GENERATION (test code 2.260 UIU/ML = 2821) [id number] 00:00:00 Test Item Value Reference Range Interpretation Comments TSH, THIRD GENERATION (test code 2.260 UIU/ML = 2821) CBC W/AUTO [id number] 00:00:00 Test Item Value Reference Range Interpretation [...] code = 1015) 218 K/UL CBC W/AUTO [id number] 00:00:00 Test Item Value Reference Range Interpretation [...] code = 1015) 218 K/UL CBC W/AUTO [id number] 00:00:00 Test Item Value Reference Range Interpretation [...] (test code = 1015) 218 K/UL HEMOGLOBIN [id number] 00:00:00 Test Item Value Reference Range Interpretation Comments HEMOGLOBIN A1c (test code = 42661) 5.9 % HEMOGLOBIN [id number] 00:00:00 Test Item Value Reference Range Interpretation Comments HEMOGLOBIN A1c (test code = 94703) 5.9 % HEMOGLOBIN [id number] 00:00:00 Test Item Value Reference Range Interpretation Comments HEMOGLOBIN A1c (test code = 64674) 5.9 % LIPID [id number] 00:00:00 Test Item Value Reference Range Interpretation Comments CHOLESTEROL (test code = 2210) 131 MG/DL TRIGLYCERIDES (test code = 2232) 190 MG/DL HDL CHOLESTEROL (test code = 2220) 42 MG/DL CALC LDL CHOL (test code = 2237) 63 MG/DL RISK RATIO LDL/HDL (test code = 1.50 RATIO 2238) LIPID [id number] 00:00:00 Test Item Value Reference Range Interpretation Comments CHOLESTEROL (test code = 2210) 131 MG/DL TRIGLYCERIDES (test code = 2232) 190 MG/DL HDL CHOLESTEROL (test code = 2220) 42 MG/DL CALC LDL CHOL (test code = 2237) 63 MG/DL RISK RATIO LDL/HDL (test code = 1.50 RATIO 2238) COMPREHENSIVE METABOLIC [id number] 00:00:00 Test Item Value Reference Range Interpretation Comments GLUCOSE (test code = 2217) 105 MG/DL BUN (test code = 2208) 17 MG/DL CREATININE (test code = 2214) 0.68 MG/DL eGFR AMER. (test code 107 ML/MIN/1.73 = 55155) eGFR NON- AMER. (test 92 ML/MIN/1.73 code = 11895) CALC BUN/CREAT (test code = 25 RATIO [...] code = 2219) 20 U/L COMPREHENSIVE METABOLIC [id number] 00:00:00 Test Item Value Reference Range Interpretation Comments GLUCOSE (test code = 2217) 105 MG/DL BUN (test code = 2208) 17 MG/DL CREATININE (test code = 2214) 0.68 MG/DL eGFR AMER. (test code 107 ML/MIN/1.73 = 09003) eGFR NON- AMER. (test 92 ML/MIN/1.73 code = 58553) CALC BUN/CREAT (test code = 25 RATIO [...] A/G RATIO (test code = 2.3 RATIO 2233) BILIRUBIN, TOTAL (test code = 0.3 MG/DL 2206) ALKALINE PHOSPHATASE (test 62 U/L code = 2204) AST (test code = 2218) 23 U/L ALT (test code = 2219) 20 U/L [id number] 00:00:00 Test Item Value Reference Range Interpretation Comments TSH, THIRD GENERATION (test code 2.260 UIU/ML = 2821) [id number] 00:00:00 Test Item Value Reference Range Interpretation Comments TSH, THIRD GENERATION (test code 2.260 UIU/ML = 2821) [id number] 00:00:00 Test Item Value Reference Range Interpretation Comments TSH, THIRD GENERATION (test code 2.260 UIU/ML = 2821) CBC W/AUTO [id number] 00:00:00 Test Item Value Reference Range Interpretation [...] code = 1015) 218 K/UL CBC W/AUTO [id number] 00:00:00 Test Item Value Reference Range Interpretation [...] code = 1015) 218 K/UL CBC W/AUTO [id number] 00:00:00 Test Item Value Reference Range Interpretation [...] (test code = 1015) 218 K/UL HEMOGLOBIN [id number] 00:00:00 Test Item Value Reference Range Interpretation Comments HEMOGLOBIN A1c (test code = 46823) 5.9 % HEMOGLOBIN [id number] 00:00:00 Test Item Value Reference Range Interpretation Comments HEMOGLOBIN A1c (test code = 99811) 5.9 % HEMOGLOBIN [id number] 00:00:00 Test Item Value Reference Range Interpretation Comments HEMOGLOBIN A1c (test code = 92963) 5.9 % LIPID [id number] 00:00:00 Test Item Value Reference Range Interpretation Comments CHOLESTEROL (test code = 2210) 131 MG/DL TRIGLYCERIDES (test code = 2232) 190 MG/DL HDL CHOLESTEROL (test code = 2220) 42 MG/DL CALC LDL CHOL (test code = 2237) 63 MG/DL RISK RATIO LDL/HDL (test code = 1.50 RATIO 2238) LIPID [id number] 00:00:00 Test Item Value Reference Range Interpretation Comments CHOLESTEROL (test code = 2210) 131 MG/DL TRIGLYCERIDES (test code = 2232) 190 MG/DL HDL CHOLESTEROL (test code = 2220) 42 MG/DL CALC LDL CHOL (test code = 2237) 63 MG/DL RISK RATIO LDL/HDL (test code = 1.50 RATIO 2238) POCT GLUCOSE (AUTOMATED)2019-12-30 15:33:00 Test Item Value Reference Range Interpretation Comments POCT GLU (test code = 204 mg/dL 70-110 H Notifi ed Provider [id number]) Lab Interpretation (test Abnormal code = 69724-6) [facility] METABOLIC PANEL (NA, K, CL, CO2, GLUCOSE, BUN, CREATININE, CA)2019-12-30 10:50:00 Test Item Value Reference Range Interpretation Comments NA (test code = 137 mmol/L 135-145 [id number]) K (test code = 4.1 mmol/L 3.5-5 5465162589) CL (test code = 103 mmol/L 98-108 1729962530) CO2 TOTAL (test code = 29 mmol/L 23-31 1931435779) AGAP (test code = 2-16 0553242865) BUN (test code = 21 mg/dL 7-23 1075407140) GLUCOSE (test code = 97 mg/dL 70-110 9159120226) CREATININE (test code 0.67 mg/dL 0.5-1.04 = 5331433253) CALCIUM (test code = 9.0 mg/dL 8.6-10.6 9641269491) eGFR Calculation mL/min/1.73m2 (Non-) (test code = 5001612230) eGFR Calculation mL/min/1.73m2 () (test code = 6187702361) JOSHUA (test code = JOSHUA) Association of [...] urine or abnormalities in imaging tests). [facility] Test Item Value Reference Range Interpretation Comments MAGNESIUM (test code = 0877323061) 2.2 mg/dL 1.7-2.4 Lab Interpretation (test code = Normal 02086-0) [facility] WITH [id number] 10:26:00 Test Item Value Reference Range Interpretation Comments WBC (test code = See_Comment [Automated 4990-2) message] The sy stem which generated this [...] RDW-SD (test code = 44.0 fL 39-49.9 09637-2) RDW-CV (test code = 12.6 % 12-15.5 788-0) PLT (test code = See_Comment [Automated 777-3) message] The sy stem which generated this result transmitted reference range : 166 - 358 10*3/ ?L. The reference r ramona was not used to interpret this result as normal/abnormal . MPV (test code = 9.7 fL 9.5-12.9 99283-5) NRBC/100 WBC (test See_Comment [Automat ed code = 3523889531) message] The system which generated this result transmitted reference range : 0.0 - 10.0 /100 WBCs. The refer ence range was not u sed to interpret th is result as normal/abnormal . NRBC x10^3 (test code <0.01 See_Comment [Auto mated = 7414276508) message] The s ystem which generated this result transmitted reference range : 10*3/?L. The reference range was not used to interpret this result as normal/abnormal . GRAN MAT (NEUT) % 57.7 % (test code = 770-8) IMM GRAN % (test code 0.20 % = 3550791561) LYMPH % (test code = 31.8 % 736-9) MONO % (test code = 8.1 % 5905-5) EOS % (test code = 1.9 % 713-8) BASO % (test code = 0.3 % 706-2) GRAN MAT x10^3(ANC) 5.12 10*3/uL 1.88-7.09 (test code = 5570143030) IMM GRAN x10^3 (test <0.03 0-0.06 code = 7007012985) LYMPH x10^3 (test code 2.82 10*3/uL 1.32-3.29 = 731-0) MONO x10^3 (test code 0.72 10*3/uL 0.33-0.92 = 742-7) EOS x10^3 (test code = 0.17 10*3/uL 0.03-0.39 711-2) BASO x10^3 (test code 0.03 10*3/uL 0.01-0.07 = 704-7) Lab Interpretation Abnormal (test code = 91765-7) [facility] GLUCOSE (AUTOMATED)2019-12-30 01:52:00 Test Item Value Reference Range Interpretation Comments POCT GLU (test code = 6389704259) 199 mg/dL 70-110 H Lab Interpretation (test code = Abnormal 54227-5) [facility] GLUCOSE (AUTOMATED)2019-12-29 23:34:00 Test Item Value Reference Range Interpretation Comments POCT GLU (test code = 7968922635) 120 mg/dL 70-110 H Lab Interpretation (test code = Abnormal 70602-3) [facility] GLUCOSE (AUTOMATED)2019-12-29 14:02:00 Test Item Value Reference Range Interpretation Comments POCT GLU (test code = 0522470595) 99 mg/dL 70-110 Lab Interpretation (test code = Normal 26447-9) [facility] Metabolic Panel (NA, K, CL, CO2, GLUCOSE, BUN, CREATININE, CA)2019-12-29 11:40:00 Test Item Value Reference Range Interpretation Comments NA (test code = 139 mmol/L 135-145 1604986507) K (test code = 4.2 mmol/L 3.5-5 Slight 8013148982) hemolysis CL (test code = 104 mmol/L 98-108 7339152551) CO2 TOTAL (test code 30 mmol/L 23-31 = 7347643168) AGAP (test code = 2-16 6648345120) BUN (test code = 18 mg/dL 7-23 Slight 1901225829) hemolysis GLUCOSE (test code = 116 mg/dL 70-110 H 5000686033) CREATININE (test code 0.61 mg/dL 0.5-1.04 = 8523630344) CALCIUM (test code = 8.9 mg/dL 8.6-10.6 1886521629) eGFR Calculation mL/min/1.73m2 (Non-) (test code = 2625646955) eGFR Calculation mL/min/1.73m2 () (test code = 7941993926) JOSHUA (test code = JOSHUA) Association of [...] tests). Lab Interpretation Abnormal (test code = 09418-8) [facility] [id number] 11:40:00 Test Item Value Reference Range Interpretation Comments MAGNESIUM (test code = 0205869179) 2.2 mg/dL 1.7-2.4 Lab Interpretation (test code = Normal 95969-3) [facility]2019-12-29 11:21:00 Test Item Value Reference Range Interpretation Comments APTT Patient (test code See_Comment HH [Au tomated message] = 3173-2) The system [employer] generated this result transmitted ref erence range: 26 - 36 Seconds. The reference range was not used to int erpret this result as normal/abnormal . Lab Interpretation (test Abnormal code = 46211-0) [facility] GLUCOSE (AUTOMATED)2019-12-29 04:19:00 Test Item Value Reference Range Interpretation Comments POCT GLU (test code = 5973393438) 115 mg/dL 70-110 H Lab Interpretation (test code = Abnormal 83672-8) [facility] (Total Cholesterol, Triglycerides, HDL) - [id number] 03:03:00 Test Item Value Reference Range Interpretation Comments CHOL (test code = 164 mg/dL 120-200 2404748160) HDL (test code = 61 mg/dL >50 4633153988) HDLC RATIO (test code = See_Comment [Au tomated message] 9688468718) The system [employer] generated this result transmit shikha reference range : <=4.5. The refe rence range was not u sed to interpret th is result as normal/abnormal . TRIG (test code = 63 mg/dL 30-170 1821866773) LDL CHOL (test code = 90 mg/dL See_Comment [Auto mated message] 53175-9) The system [employer] generated this result transmit shikha reference range : <=160. The refe rence range was not u sed to interpret th is result as normal/abnormal . VLDL (test code = 13 mg/dL 5-60 0001351885) Lab Interpretation (test Normal code = 99020-1) [facility]:36:00 Test Item Value Reference Range Interpretation Comments APTT Patient (test code See_Comment H [Au tomated message] = 3173-2) The system [employer] generated this result transmitted ref erence range: 26 - 36 Seconds. The reference range was not used to int erpret this result as normal/abnormal . Lab Interpretation (test Abnormal code = 82270-0) [facility] [id number] 21:42:00 Test Item Value Reference Range Interpretation Comments TROPONIN I (test 0.081 ng/mL See_Comment H [Automated code = 4694229240) message] The system which generated this result [...] ? Lab Interpretation Abnormal (test code = 27159-1) [facility] / [id number] 12:39:00 Test Item Value Reference Range Interpretation Comments PROTIME PATIENT (test See_Comment [Auto mated message] code = 5964-2) The system [employer] generated this result transmitted ref erence range: 10.1 - 1 2.6 Seconds. The re ference range was not u sed to interpret this result as normal/abnor mal. INR (test code = 6301-6) Nor mal INR <1.1; Warfarin Therap eutic range 2.0 to 3. 0 or 2.5 to 3.5, dep ending upon the indica tions. Lab Interpretation (test Normal code = 62677-6) [facility]TT[facility] 12:39:00 Test Item Value Reference Range Interpretation Comments APTT Patient (test code = See_Comment [ Automated message] 3173-2) The system [employer] generated this result transmitted ref erence range: 26 - 36 Seconds. The re ference range was not u sed to interpret this result as normal/abnor mal. Lab Interpretation (test Normal code = 58525-6) [facility]Trop[facility] [id number] 11:11:00 Test Item Value Reference Range Interpretation Comments TROPONIN I (test 0.148 ng/mL See_Comment H [Automated code = 5688040165) message] The system which generated this result [...] ? Lab Interpretation Abnormal (test code = 45575-0) [facility]cosylated Hemoglobin (A1C)2019-12-28 10:57:00 Test Item Value Reference Range Interpretation Comments HGB A1C (test code = 5.8 % 4-6 4548-4) JOSHUA (test code = JOSHUA) %A1C (NGSP) Interpretation (ADA)4.8-5.6 ? ? Normal or (Non-Diabetic Range)5.7-6.4 ? ? Increased Risk (Pre-Diabetic)>6.5 ?Diabetes Indicated Lab Interpretation Normal (test code = 60145-0) [facility] CenterThyroid Stimulating Hormone (TSH)2019-12-28 10:22:00 Test Item Value Reference Range Interpretation Comments TSH (test code = See_Comment Biotin has been 0007206736) reported to cau se a negative bias, interpret resul ts relative to pat ient's use of biotin. [Automated mess age] The system [employer] generated this result transmitted ref erence range: 0.45 - 4 .70 mIU/L. The refe rence range was not u sed to interpret this result as normal/abnor mal. Lab Interpretation (test Normal code = 81113-3) [facility] CenterN-Terminal [id number] 10:22:00 Test Item Value Reference Range Interpretation Comments NT-proBNP (test code 636 pg/mL See_Comment H [Autom ated = 2140312725) message] The system which generated this result transmitted reference range : <=125. The reference range was not used to interpret this result as normal/abnormal . JOSHUA (test code = JOSHUA) Biotin has been reported to cause a negative bias, interpret results relative to patient's use of biotin. Lab Interpretation Abnormal (test code = 12867-4) [facility] CenterCT CHEST PULMONARY [id number] 05:35:31 No acute pulmonary embolism through the segmental level. Moderate emphysematous changes. Technically indeterminate 1.5 cm left adrenal nodule. Recommend multiphasicCT or MRI adrenal protocol to further characterize. Preliminary Report Dictated by Resident: Dillon Saunders MD., have reviewed this study and agree with theove report.CT CHEST PULMONARY ANGIOGRAM HISTORY: 64 years-old; [...] study and agree with theabove report. [facility] CenterXR CHEST 1 [id number] 03:07:42 No acute cardiopulmonary abnormality. Preliminary Report [...] this study and agree with theabove report.[facility] CenterTRPACON [id number] 02:26:00 Test Item Value Reference Range Interpretation Comments TROPONIN I (test 0.048 ng/mL See_Comment H [Automated code = 8880110606) message] The system which generated this result [...] ? Lab Interpretation Abnormal (test code = 91512-7) [facility]COVID[facility] (ID NOW RAPID TESTING)2019-12-28 02:22:00 Test Item Value Reference Range Interpretation Comments SARS-CoV-2 Rapid ID NOW Not Detected Not Detected (test code = 34154-2) JOSHUA (test code = JOSHUA) ID NOW COVID-19 Assay is an isothermal nucleic acid amplification test intended for the qualitative detection of nucleic acid from SARS-CoV-2 viral RNA in nasopharyngeal (SENIOR SOUS CHEF) specimens. It is used under Emergency Use [...] indicated. Lab Interpretation Normal (test code = 94949-2) [facility]. METABOLIC PANEL (81606)2019-12-28 02:16:00 Test Item Value Reference Range Interpretation Comments NA (test code = 137 mmol/L 135-145 6730550807) K (test code = 3.8 mmol/L 3.5-5 8602657909) CL (test code = 101 mmol/L 98-108 8454969500) CO2 TOTAL (test code = 31 mmol/L 23-31 0220949158) AGAP (test code = 2-16 7184400381) BUN (test code = 18 mg/dL 7-23 4457235148) GLUCOSE (test code = 145 mg/dL 70-110 H 4344662783) CREATININE (test code = 0.55 mg/dL 0.5-1.04 8472531024) TOTAL BILI (test code = 0.4 mg/dL 0.1-1.2 6450835006) CALCIUM (test code = 8.8 mg/dL 8.6-10.6 0427132907) T PROTEIN (test code = 6.7 g/dL 6.3-8.2 2026955337) ALBUMIN (test code = 4.1 g/dL 3.5-5 1490418146) ALK PHOS (test code = 72 U/L 34-122 1020714706) ALTv (test code = 40 U/L 5-35 H 1742-6) AST(SGOT) (test code = 46 U/L 13-40 H 3086395466) eGFR Calculation mL/min/1.73m2 (Non-) (test code = 6556391059) eGFR Calculation mL/min/1.73m2 () (test code = 9878176454) JOSHUA (test code = JOSHUA) Association of [...] tests). Lab Interpretation Abnormal (test code = 86221-7) [facility] METABOLIC PANEL (NA, K, CL, CO2, GLUCOSE, BUN, CREATININE, CA)2019-12-28 02:16:00 Test Item Value Reference Range Interpretation Comments NA (test code = 137 mmol/L 135-145 0413423899) K (test code = 3.8 mmol/L 3.5-5 6200737131) CL (test code = 101 mmol/L 98-108 4880776519) CO2 TOTAL (test code = 31 mmol/L 23-31 3612425271) AGAP (test code = 2-16 3635480798) BUN (test code = 18 mg/dL 7-23 0758355374) GLUCOSE (test code = 145 mg/dL 70-110 H 9161163265) CREATININE (test code = 0.55 mg/dL 0.5-1.04 1361214660) CALCIUM (test code = 8.8 mg/dL 8.6-10.6 1960022567) eGFR Calculation mL/min/1.73m2 (Non-) (test code = 2117188857) eGFR Calculation mL/min/1.73m2 () (test code = 0629600564) JOSHUA (test code = JOSHUA) Association of [...] tests). Lab Interpretation Abnormal (test code = 04900-1) [facility] WITH [id number] 02:01:00 Test Item Value Reference Range Interpretation [...] RDW-SD (test code = 42.5 fL 39-49.9 35873-3) RDW-CV (test code = 12.2 % 12-15.5 788-0) PLT (test code = See_Comment [Automated 777-3) message] The sy stem which generated this result transmitted reference range : 166 - 358 10*3/ ?L. The reference r ramona was not used to interpret this result as normal/abnormal . MPV (test code = 9.7 fL 9.5-12.9 45034-1) NRBC/100 WBC (test See_Comment [Automat ed code = 9950332872) message] The system which generated this result transmitted reference range : 0.0 - 10.0 /100 WBCs. The refer ence range was not u sed to interpret th is result as normal/abnormal . NRBC x10^3 (test code <0.01 See_Comment [Auto mated = 7988791044) message] The s ystem which generated this result transmitted reference range : 10*3/?L. The reference range was not used to interpret this result as normal/abnormal . GRAN MAT (NEUT) % 52.2 % (test code = 770-8) IMM GRAN % (test code 0.30 % = 5520824530) LYMPH % (test code = 36.0 % 736-9) MONO % (test code = 7.3 % 5905-5) EOS % (test code = 3.7 % 713-8) BASO % (test code = 0.5 % 706-2) GRAN MAT x10^3(ANC) 3.36 10*3/uL 1.88-7.09 (test code = 3718884348) IMM GRAN x10^3 (test <0.03 0-0.06 code = 1431862691) LYMPH x10^3 (test code 2.32 10*3/uL 1.32-3.29 = 731-0) MONO x10^3 (test code 0.47 10*3/uL 0.33-0.92 = 742-7) EOS x10^3 (test code = 0.24 10*3/uL 0.03-0.39 711-2) BASO x10^3 (test code 0.03 10*3/uL 0.01-0.07 = 704-7) Lab Interpretation Abnormal (test code = 40974-8) [facility] MET[facility] [id number] 00:00:00 Test Item Value Reference Range Interpretation Comments GLUCOSE (test code = 2217) 110 MG/DL BUN (test code = 2208) 17 MG/DL CREATININE (test code = 2214) 0.63 MG/DL eGFR AMER. (test code 111 ML/MIN/1.73 = 05827) eGFR NON- AMER. (test 95 ML/MIN/1.73 code = 45947) CALC BUN/CREAT (test code = 27 RATIO 2235) SODIUM (test code = 2231) 137 MEQ/L POTASSIUM (test code = 2228) 4.6 MEQ/L CHLORIDE (test code = 2215) 101 MEQ/L CARBON DIOXIDE (test code = 24 MEQ/L 6) CALCIUM (test code = 2209) 9.5 MG/DL [...] code = 2219) 26 U/L COMPREHENSIVE METABOLIC [id number] 00:00:00 Test Item Value Reference Range Interpretation Comments GLUCOSE (test code = 2217) 110 MG/DL BUN (test code = 2208) 17 MG/DL CREATININE (test code = 2214) 0.63 MG/DL eGFR AMER. (test code 111 ML/MIN/1.73 = 08372) eGFR NON- AMER. (test 95 ML/MIN/1.73 code = 65691) CALC BUN/CREAT (test code = 27 RATIO [...] code = 2219) 26 U/L COMPREHENSIVE METABOLIC [id number] 00:00:00 Test Item Value Reference Range Interpretation Comments GLUCOSE (test code = 2217) 110 MG/DL BUN (test code = 2208) 17 MG/DL CREATININE (test code = 2214) 0.63 MG/DL eGFR AMER. (test code 111 ML/MIN/1.73 = 69897) eGFR NON- AMER. (test 95 ML/MIN/1.73 code = 85221) CALC BUN/CREAT (test code = 27 RATIO 2235) SODIUM (test code = 2231) 137 MEQ/L POTASSIUM (test code = 2228) 4.6 MEQ/L CHLORIDE (test code = 2215) 101 MEQ/L CARBON DIOXIDE (test code = 24 MEQ/L 2206) CALCIUM (test code = 2209) 9.5 MG/DL [...] code = 2219) 26 U/L COMPREHENSIVE METABOLIC [id number] 00:00:00 Test Item Value Reference Range Interpretation Comments GLUCOSE (test code = 2217) 110 MG/DL BUN (test code = 2208) 17 MG/DL CREATININE (test code = 2214) 0.63 MG/DL eGFR AMER. (test code 111 ML/MIN/1.73 = 90968) eGFR NON- AMER. (test 95 ML/MIN/1.73 code = 00397) CALC BUN/CREAT (test code = 27 RATIO [...] code = 2219) 26 U/L COMPREHENSIVE METABOLIC [id number] 00:00:00 Test Item Value Reference Range Interpretation Comments GLUCOSE (test code = 2217) 110 MG/DL BUN (test code = 2208) 17 MG/DL CREATININE (test code = 2214) 0.63 MG/DL eGFR AMER. (test code 111 ML/MIN/1.73 = 16740) eGFR NON- AMER. (test 95 ML/MIN/1.73 code = 59164) CALC BUN/CREAT (test code = 27 RATIO [...] ALKALINE PHOSPHATASE (test 49 U/L code = 220) AST (test code = 2218) 27 U/L ALT (test code = 2219) 26 U/L COMPREHENSIVE METABOLIC [id number] 00:00:00 Test Item Value Reference Range Interpretation Comments GLUCOSE (test code = 2217) 110 MG/DL BUN (test code = 2208) 17 MG/DL CREATININE (test code = 2214) 0.63 MG/DL eGFR AMER. (test code 111 ML/MIN/1.73 = 11199) eGFR NON- AMER. (test 95 ML/MIN/1.73 code = 96844) CALC BUN/CREAT (test code = 27 RATIO [...] code = 2219) 26 U/L COMPREHENSIVE METABOLIC [id number] 00:00:00 Test Item Value Reference Range Interpretation Comments GLUCOSE (test code = 2217) 110 MG/DL BUN (test code = 2208) 17 MG/DL CREATININE (test code = 2214) 0.63 MG/DL eGFR AMER. (test code 111 ML/MIN/1.73 = 19578) eGFR NON- AMER. (test 95 ML/MIN/1.73 code = 26921) CALC BUN/CREAT (test code = 27 RATIO [...] code = 2219) 26 U/L COMPREHENSIVE METABOLIC [id number] 00:00:00 Test Item Value Reference Range Interpretation Comments GLUCOSE (test code = 2217) 110 MG/DL BUN (test code = 2208) 17 MG/DL CREATININE (test code = 2214) 0.63 MG/DL eGFR AMER. (test code 111 ML/MIN/1.73 = 19313) eGFR NON- AMER. (test 95 ML/MIN/1.73 code = 19566) CALC BUN/CREAT (test code = 27 RATIO [...] code = 2219) 26 U/L COMPREHENSIVE METABOLIC [id number] 00:00:00 Test Item Value Reference Range Interpretation Comments GLUCOSE (test code = 2217) 78 MG/DL BUN (test code = 2208) 13 MG/DL CREATININE (test code = 2214) 0.57 MG/DL eGFR AMER. (test code 114 ML/MIN/1.73 = 70321) eGFR NON- AMER. (test 99 ML/MIN/1.73 code = 03421) CALC BUN/CREAT (test code = 23 RATIO [...] code = 2219) 27 U/L COMPREHENSIVE METABOLIC [id number] 00:00:00 Test Item Value Reference Range Interpretation Comments GLUCOSE (test code = 2217) 78 MG/DL BUN (test code = 2208) 13 MG/DL CREATININE (test code = 2214) 0.57 MG/DL eGFR AMER. (test code 114 ML/MIN/1.73 = 26510) eGFR NON- AMER. (test 99 ML/MIN/1.73 code = 09748) CALC BUN/CREAT (test code = 23 RATIO [...] CALC GLOBULIN (test code = 2.4 G/DL 0) CALC A/G RATIO (test code = 2.0 RATIO 2233) BILIRUBIN, TOTAL (test code = 0.4 MG/DL 2206) ALKALINE PHOSPHATASE (test 51 U/L code = 2204) AST (test code = 2218) 30 U/L ALT (test code = 2219) 27 U/L CBC W/AUTO [id number] 00:00:00 Test Item Value Reference Range Interpretation [...] code = 1015) 268 K/UL CBC W/AUTO [id number] 00:00:00 Test Item Value Reference Range Interpretation [...] code = 1015) 268 K/UL CBC W/AUTO [id number] 00:00:00 Test Item Value Reference Range Interpretation [...] code = 1015) 268 K/UL COMPREHENSIVE METABOLIC [id number] 00:00:00 Test Item Value Reference Range Interpretation Comments GLUCOSE (test code = 2217) 78 MG/DL BUN (test code = 2208) 13 MG/DL CREATININE (test code = 2214) 0.57 MG/DL eGFR AMER. (test code 114 ML/MIN/1.73 = 54652) eGFR NON- AMER. (test 99 ML/MIN/1.73 code = 41484) CALC BUN/CREAT (test code = 23 RATIO [...] code = 2219) 27 U/L COMPREHENSIVE METABOLIC [id number] 00:00:00 Test Item Value Reference Range Interpretation Comments GLUCOSE (test code = 2217) 78 MG/DL BUN (test code = 2208) 13 MG/DL CREATININE (test code = 2214) 0.57 MG/DL eGFR AMER. (test code 114 ML/MIN/1.73 = 52257) eGFR NON- AMER. (test 99 ML/MIN/1.73 code = 12078) CALC BUN/CREAT (test code = 23 RATIO [...] code = 2219) 27 U/L CBC W/AUTO [id number] 00:00:00 Test Item Value Reference Range Interpretation [...] code = 1015) 268 K/UL CBC W/AUTO [id number] 00:00:00 Test Item Value Reference Range Interpretation [...] code = 1015) 268 K/UL CBC W/AUTO [id number] 00:00:00 Test Item Value Reference Range Interpretation [...] code = 1015) 268 K/UL COMPREHENSIVE METABOLIC [id number] 00:00:00 Test Item Value Reference Range Interpretation Comments GLUCOSE (test code = 2217) 78 MG/DL BUN (test code = 2208) 13 MG/DL CREATININE (test code = 2214) 0.57 MG/DL eGFR AMER. (test code 114 ML/MIN/1.73 = 89405) eGFR NON- AMER. (test 99 ML/MIN/1.73 code = 84442) CALC BUN/CREAT (test code = 23 RATIO [...] code = 2219) 27 U/L COMPREHENSIVE METABOLIC [id number] 00:00:00 Test Item Value Reference Range Interpretation Comments GLUCOSE (test code = 2217) 78 MG/DL BUN (test code = 2208) 13 MG/DL CREATININE (test code = 2214) 0.57 MG/DL eGFR AMER. (test code 114 ML/MIN/1.73 = 72047) eGFR NON- AMER. (test 99 ML/MIN/1.73 code = 17237) CALC BUN/CREAT (test code = 23 RATIO 2235) SODIUM (test code = 2231) 139 MEQ/L POTASSIUM (test code = 2228) 4.2 MEQ/L CHLORIDE (test code = 2215) 100 MEQ/L CARBON DIOXIDE (test code = 24 MEQ/L 2206) CALCIUM (test code = 2209) 9.7 MG/DL PROTEIN, TOTAL (test code = 7.1 G/DL 9) ALBUMIN (test code = 2201) 4.7 G/DL CALC GLOBULIN (test code = 2.4 G/DL 2240) CALC A/G RATIO (test code = 2.0 RATIO 2234) BILIRUBIN, TOTAL (test code = 0.4 MG/DL 2206) ALKALINE PHOSPHATASE (test 51 U/L code = 2204) AST (test code = 2218) 30 U/L ALT (test code = 2219) 27 U/L CBC W/AUTO [id number] 00:00:00 Test Item Value Reference Range Interpretation [...] code = 1015) 268 K/UL CBC W/AUTO [id number] 00:00:00 Test Item Value Reference Range Interpretation [...] code = 1015) 268 K/UL CBC W/AUTO [id number] 00:00:00 Test Item Value Reference Range Interpretation [...] code = 1015) 268 K/UL COMPREHENSIVE METABOLIC [id number] 00:00:00 Test Item Value Reference Range Interpretation Comments GLUCOSE (test code = 2217) 78 MG/DL BUN (test code = 2208) 13 MG/DL CREATININE (test code = 2214) 0.57 MG/DL eGFR AMER. (test code 114 ML/MIN/1.73 = 56487) eGFR NON- AMER. (test 99 ML/MIN/1.73 code = 97672) CALC BUN/CREAT (test code = 23 RATIO [...] code = 2219) 27 U/L COMPREHENSIVE METABOLIC [id number] 00:00:00 Test Item Value Reference Range Interpretation Comments GLUCOSE (test code = 2217) 78 MG/DL BUN (test code = 2208) 13 MG/DL CREATININE (test code = 2214) 0.57 MG/DL eGFR AMER. (test code 114 ML/MIN/1.73 = 76999) eGFR NON- AMER. (test 99 ML/MIN/1.73 code = 40299) CALC BUN/CREAT (test code = 23 RATIO [...] code = 2219) 27 U/L CBC W/AUTO [id number] 00:00:00 Test Item Value Reference Range Interpretation [...] code = 1015) 268 K/UL CBC W/AUTO [id number] 00:00:00 Test Item Value Reference Range Interpretation [...] code = 1015) 268 K/UL CBC W/AUTO [id number] 00:00:00 Test Item Value Reference Range Interpretation [...] code = 1015) 268 K/UL Chest 1 [id number] 22:39:59 No acute cardiopulmonary abnormality. Emphysematous changes. [...] reviewed this study and agree with the abovereport.[facility] [id number] 22:28:00 Test Item Value Reference Range Interpretation Comments TROPONIN I (test <0.012 See_Comment [Automated code = 7963755676) message] The system which generated this result [...] ? Lab Interpretation Normal (test code = 08965-1) [facility] [id number] 22:24:00 Test Item Value Reference Range Interpretation Comments NT-proBNP (test code 675 pg/mL See_Comment H [Autom ated = 3037497585) message] The system which generated this result transmitted reference range : <=125. The reference range was not used to interpret this result as normal/abnormal . JOSHUA (test code = JOSHUA) Biotin has been reported to cause a negative bias, interpret results relative to patient's use of biotin. Lab Interpretation Abnormal (test code = 11429-4) [facility] (PT) / [id number] 22:20:00 Test Item Value Reference Range Interpretation Comments PROTIME PATIENT (test See_Comment [Auto mated message] code = 5964-2) The system [employer] generated this result transmitted ref erence range: 12.0 - 1 4.7 Seconds. The re ference range was not u sed to interpret this result as normal/abnor mal. INR (test code = 6301-6) Nor mal INR <1.1; Warfarin Therap eutic range 2.0 to 3. 0 or 2.5 to 3.5, dep ending upon the indica tions. Lab Interpretation (test Normal code = 47807-4) [facility] Metabolic Panel (NA, K, CL, CO2, GLUCOSE, BUN, CREATININE, CA)2019-07-27 22:17:00 Test Item Value Reference Range Interpretation Comments NA (test code = 138 mmol/L 135-145 [id number]) K (test code = 4.4 mmol/L 3.5-5 [id number]) CL (test code = 101 mmol/L 98-108 [id number]) CO2 TOTAL (test code = 28 mmol/L 23-31 0888423612) AGAP (test code = 2-16 [id number]) BUN (test code = 16 mg/dL 7-23 1347804437) GLUCOSE (test code = 88 mg/dL 70-110 [id number]) CREATININE (test code 0.55 mg/dL 0.5-1.04 = [id number]) CALCIUM (test code = 10.1 mg/dL 8.6-10.6 6095090727) eGFR Calculation mL/min/1.73m2 (Non-) (test code = 1789769847) eGFR Calculation mL/min/1.73m2 () (test code = 1987684288) JOSHUA (test code = JOSHUA) Association of [...] urine or abnormalities in imaging tests). [facility]ALB, T.PRO, BILI T, BU/BC, ALT, AST, ALK PHOS)2019-07-27 22:17:00 Test Item Value Reference Range Interpretation Comments TOTAL BILI (test code = 5577300943) 0.7 mg/dL 0.1-1.1 BILI UNCON (test code = 5675497929) 0.8 mg/dL 0.1-1.1 BILI CONJ (test code = 3718100111) 0.0 mg/dL 0-0.3 T PROTEIN (test code = 6336454105) 7.7 g/dL 6.3-8.2 ALBUMIN (test code = 1613242218) 4.8 g/dL 3.5-5 ALK PHOS (test code = 6039823446) 49 U/L 34-122 ALTv (test code = 1742-6) 35 U/L 5-35 AST(SGOT) (test code = 9214536947) 42 U/L 13-40 H Lab Interpretation (test code = Abnormal 82390-0) [facility]ID [facility]2019-07-27 22:16:00 Test Item Value Reference Range Interpretation Comments SARS-CoV-2 Rapid ID NOW Not Detected Not Detected (test code = 86902-6) JOSHUA (test code = JOSHUA) ID NOW COVID-19 Assay is an isothermal nucleic acid amplification test intended for the qualitative detection of nucleic acid from SARS-CoV-2 viral RNA in nasopharyngeal (SENIOR SOUS CHEF) specimens. It is used under Emergency Use [...] indicated. Lab Interpretation Normal (test code = 65564-2) [facility] WITH [id number] 21:58:00 Test Item Value Reference Range Interpretation Comments WBC (test code = See_Comment [Automated 7350-2) message] The sy stem which generated this result transmitted reference range : 4.30 - 11.10 10*3/?L. The reference range was not used to interpret this result as normal/abnormal . RBC (test code = See_Comment [Automated 767-8) message] The sy stem which generated this [...] RDW-SD (test code = 41.4 fL 39-49.9 43281-0) RDW-CV (test code = 12.2 % 12-15.5 788-0) PLT (test code = See_Comment [Automated 887-3) message] The sy stem which generated this result transmitted reference range : 166 - 358 10*3/ ?L. The reference r ramona was not used to interpret this result as normal/abnormal . MPV (test code = 9.7 fL 9.5-12.9 67444-1) NRBC/100 WBC (test See_Comment [Automat ed code = 8937189064) message] The system which generated this result transmitted reference range : 0.0 - 10.0 /100 WBCs. The refer ence range was not u sed to interpret th is result as normal/abnormal . NRBC x10^3 (test code <0.01 See_Comment [Auto mated = 5181329030) message] The s ystem which generated this result transmitted reference range : 10*3/?L. The reference range was not used to interpret this result as normal/abnormal . GRAN MAT (NEUT) % 72.2 % (test code = 770-8) IMM GRAN % (test code 0.40 % = 4576805678) LYMPH % (test code = 19.5 % 736-9) MONO % (test code = 5.2 % 5905-5) EOS % (test code = 2.1 % 713-8) BASO % (test code = 0.6 % 706-2) GRAN MAT x10^3(ANC) 7.15 10*3/uL 1.88-7.09 H (test code = 7163541412) IMM GRAN x10^3 (test 0.04 10*3/uL 0-0.06 code = 5032546878) LYMPH x10^3 (test code 1.93 10*3/uL 1.32-3.29 = 731-0) MONO x10^3 (test code 0.52 10*3/uL 0.33-0.92 = 742-7) EOS x10^3 (test code = 0.21 10*3/uL 0.03-0.39 711-2) BASO x10^3 (test code 0.06 10*3/uL 0.01-0.07 = 704-7) Lab Interpretation Abnormal (test code = 42781-5) [facility] [id number] 00:00:00 Test Item Value Reference Range Interpretation Comments GLUCOSE (test code = 2217) 113 MG/DL BUN (test code = 2208) 8 MG/DL CREATININE (test code = 2214) 0.64 MG/DL eGFR AMER. (test code 110 ML/MIN/1.73 = 59734) eGFR NON- AMER. (test 95 ML/MIN/1.73 code = 07898) CALC BUN/CREAT (test code = 13 RATIO [...] code = 2219) 28 U/L COMPREHENSIVE METABOLIC [id number] 00:00:00 Test Item Value Reference Range Interpretation Comments GLUCOSE (test code = 2217) 113 MG/DL BUN (test code = 2208) 8 MG/DL CREATININE (test code = 2214) 0.64 MG/DL eGFR AMER. (test code 110 ML/MIN/1.73 = 83387) eGFR NON- AMER. (test 95 ML/MIN/1.73 code = 45626) CALC BUN/CREAT (test code = 13 RATIO [...] = 0.4 MG/DL 2207) ALKALINE PHOSPHATASE (test 56 U/L code = 2204) AST (test code = 2218) 27 U/L ALT (test code = 2219) 28 U/L COMPREHENSIVE METABOLIC [id number] 00:00:00 Test Item Value Reference Range Interpretation Comments GLUCOSE (test code = 2217) 113 MG/DL BUN (test code = 2208) 8 MG/DL CREATININE (test code = 2214) 0.64 MG/DL eGFR AMER. (test code 110 ML/MIN/1.73 = 08639) eGFR NON- AMER. (test 95 ML/MIN/1.73 code = 88123) CALC BUN/CREAT (test code = 13 RATIO [...] BILIRUBIN, TOTAL (test code = 0.4 MG/DL 7) ALKALINE PHOSPHATASE (test 56 U/L code = 2204) AST (test code = 2218) 27 U/L ALT (test code = 2219) 28 U/L COMPREHENSIVE METABOLIC [id number] 00:00:00 Test Item Value Reference Range Interpretation Comments GLUCOSE (test code = 2217) 113 MG/DL BUN (test code = 2208) 8 MG/DL CREATININE (test code = 2214) 0.64 MG/DL eGFR AMER. (test code 110 ML/MIN/1.73 = 04149) eGFR NON- AMER. (test 95 ML/MIN/1.73 code = 58926) CALC BUN/CREAT (test code = 13 RATIO [...] code = 2219) 28 U/L COMPREHENSIVE METABOLIC [id number] 00:00:00 Test Item Value Reference Range Interpretation Comments GLUCOSE (test code = 2217) 113 MG/DL BUN (test code = 2208) 8 MG/DL CREATININE (test code = 2214) 0.64 MG/DL eGFR AMER. (test code 110 ML/MIN/1.73 = 78135) eGFR NON- AMER. (test 95 ML/MIN/1.73 code = 52391) CALC BUN/CREAT (test code = 13 RATIO [...] code = 2219) 28 U/L COMPREHENSIVE METABOLIC [id number] 00:00:00 Test Item Value Reference Range Interpretation Comments GLUCOSE (test code = 2217) 113 MG/DL BUN (test code = 2208) 8 MG/DL CREATININE (test code = 2214) 0.64 MG/DL eGFR AMER. (test code 110 ML/MIN/1.73 = 24885) eGFR NON- AMER. (test 95 ML/MIN/1.73 code = 09429) CALC BUN/CREAT (test code = 13 RATIO [...] code = 2219) 28 U/L COMPREHENSIVE METABOLIC [id number] 00:00:00 Test Item Value Reference Range Interpretation Comments GLUCOSE (test code = 2217) 113 MG/DL BUN (test code = 2208) 8 MG/DL CREATININE (test code = 2214) 0.64 MG/DL eGFR AMER. (test code 110 ML/MIN/1.73 = 29959) eGFR NON- AMER. (test 95 ML/MIN/1.73 code = 94504) CALC BUN/CREAT (test code = 13 RATIO [...] code = 2219) 28 U/L COMPREHENSIVE METABOLIC [id number] 00:00:00 Test Item Value Reference Range Interpretation Comments GLUCOSE (test code = 2217) 113 MG/DL BUN (test code = 2208) 8 MG/DL CREATININE (test code = 2214) 0.64 MG/DL eGFR AMER. (test code 110 ML/MIN/1.73 = 70528) eGFR NON- AMER. (test 95 ML/MIN/1.73 code = 69779) CALC BUN/CREAT (test code = 13 RATIO [...] 0) CALC A/G RATIO (test code = 2.4 RATIO 4) BILIRUBIN, TOTAL (test code = 0.4 MG/DL 2206) ALKALINE PHOSPHATASE (test 56 U/L code = 2204) AST (test code = 2218) 27 U/L ALT (test code = 2219) 28 U/L HEMOGLOBIN [id number] 00:00:00 Test Item Value Reference Range Interpretation Comments HEMOGLOBIN A1c (test code = 49409) 5.9 % HEMOGLOBIN [id number] 00:00:00 Test Item Value Reference Range Interpretation Comments HEMOGLOBIN A1c (test code = 85029) 5.9 % HEMOGLOBIN [id number] 00:00:00 Test Item Value Reference Range Interpretation Comments HEMOGLOBIN A1c (test code = 46066) 5.9 % LIPID [id number] 00:00:00 Test Item Value Reference Range Interpretation Comments CHOLESTEROL (test code = 2210) 138 MG/DL TRIGLYCERIDES (test code = 2232) 158 MG/DL HDL CHOLESTEROL (test code = 2220) 43 MG/DL CALC LDL CHOL (test code = 2237) 63 MG/DL RISK RATIO LDL/HDL (test code = 1.47 RATIO 2238) LIPID [id number] 00:00:00 Test Item Value Reference Range Interpretation Comments CHOLESTEROL (test code = 2210) 138 MG/DL TRIGLYCERIDES (test code = 2232) 158 MG/DL HDL CHOLESTEROL (test code = 2220) 43 MG/DL CALC LDL CHOL (test code = 2237) 63 MG/DL RISK RATIO LDL/HDL (test code = 1.47 RATIO 2238) COMPREHENSIVE METABOLIC [id number] 00:00:00 Test Item Value Reference Range Interpretation Comments GLUCOSE (test code = 2217) 103 MG/DL BUN (test code = 2208) 13 MG/DL CREATININE (test code = 2214) 0.83 MG/DL eGFR AMER. (test code 88 ML/MIN/1.73 = 89418) eGFR NON- AMER. (test 76 ML/MIN/1.73 code = 38367) CALC BUN/CREAT (test code = 16 RATIO [...] code = 2219) 20 U/L COMPREHENSIVE METABOLIC [id number] 00:00:00 Test Item Value Reference Range Interpretation Comments GLUCOSE (test code = 2217) 103 MG/DL BUN (test code = 2208) 13 MG/DL CREATININE (test code = 2214) 0.83 MG/DL eGFR AMER. (test code 88 ML/MIN/1.73 = 37674) eGFR NON- AMER. (test 76 ML/MIN/1.73 code = 56502) CALC BUN/CREAT (test code = 16 RATIO 2234) SODIUM (test code = 2231) [...] ALKALINE PHOSPHATASE (test 59 U/L code = 220) AST (test code = 221) 26 U/L ALT (test code = 2219) 20 U/L HEMOGLOBIN [id number] 00:00:00 Test Item Value Reference Range Interpretation Comments HEMOGLOBIN A1c (test code = 01226) 5.9 % HEMOGLOBIN [id number] 00:00:00 Test Item Value Reference Range Interpretation Comments HEMOGLOBIN A1c (test code = 64565) 5.9 % HEMOGLOBIN [id number] 00:00:00 Test Item Value Reference Range Interpretation Comments HEMOGLOBIN A1c (test code = 79946) 5.9 % LIPID [id number] 00:00:00 Test Item Value Reference Range Interpretation Comments CHOLESTEROL (test code = 2210) 138 MG/DL TRIGLYCERIDES (test code = 2232) 158 MG/DL HDL CHOLESTEROL (test code = 2220) 43 MG/DL CALC LDL CHOL (test code = 2237) 63 MG/DL RISK RATIO LDL/HDL (test code = 1.47 RATIO 2238) LIPID [id number] 00:00:00 Test Item Value Reference Range Interpretation Comments CHOLESTEROL (test code = 2210) 138 MG/DL TRIGLYCERIDES (test code = 2232) 158 MG/DL HDL CHOLESTEROL (test code = 2220) 43 MG/DL CALC LDL CHOL (test code = 2237) 63 MG/DL RISK RATIO LDL/HDL (test code = 1.47 RATIO 2238) COMPREHENSIVE METABOLIC [id number] 00:00:00 Test Item Value Reference Range Interpretation Comments GLUCOSE (test code = 2217) 103 MG/DL BUN (test code = 2208) 13 MG/DL CREATININE (test code = 2214) 0.83 MG/DL eGFR AMER. (test code 88 ML/MIN/1.73 = 50961) eGFR NON- AMER. (test 76 ML/MIN/1.73 code = 58708) CALC BUN/CREAT (test code = 16 RATIO [...] code = 2219) 20 U/L COMPREHENSIVE METABOLIC [id number] 00:00:00 Test Item Value Reference Range Interpretation Comments GLUCOSE (test code = 2217) 103 MG/DL BUN (test code = 2208) 13 MG/DL CREATININE (test code = 2214) 0.83 MG/DL eGFR AMER. (test code 88 ML/MIN/1.73 = 46176) eGFR NON- AMER. (test 76 ML/MIN/1.73 code = 44241) CALC BUN/CREAT (test code = 16 RATIO [...] (test code = 2219) 20 U/L HEMOGLOBIN [id number] 00:00:00 Test Item Value Reference Range Interpretation Comments HEMOGLOBIN A1c (test code = 29650) 5.9 % HEMOGLOBIN [id number] 00:00:00 Test Item Value Reference Range Interpretation Comments HEMOGLOBIN A1c (test code = 59967) 5.9 % HEMOGLOBIN [id number] 00:00:00 Test Item Value Reference Range Interpretation Comments HEMOGLOBIN A1c (test code = 99558) 5.9 % LIPID [id number] 00:00:00 Test Item Value Reference Range Interpretation Comments CHOLESTEROL (test code = 2210) 138 MG/DL TRIGLYCERIDES (test code = 2232) 158 MG/DL HDL CHOLESTEROL (test code = 2220) 43 MG/DL CALC LDL CHOL (test code = 2237) 63 MG/DL RISK RATIO LDL/HDL (test code = 1.47 RATIO 2238) LIPID [id number] 00:00:00 Test Item Value Reference Range Interpretation Comments CHOLESTEROL (test code = 2210) 138 MG/DL TRIGLYCERIDES (test code = 2232) 158 MG/DL HDL CHOLESTEROL (test code = 2220) 43 MG/DL CALC LDL CHOL (test code = 2237) 63 MG/DL RISK RATIO LDL/HDL (test code = 1.47 RATIO 2238) COMPREHENSIVE METABOLIC [id number] 00:00:00 Test Item Value Reference Range Interpretation Comments GLUCOSE (test code = 2217) 103 MG/DL BUN (test code = 2208) 13 MG/DL CREATININE (test code = 2214) 0.83 MG/DL eGFR AMER. (test code 88 ML/MIN/1.73 = 34642) eGFR NON- AMER. (test 76 ML/MIN/1.73 code = 42345) CALC BUN/CREAT (test code = 16 RATIO [...] BILIRUBIN, TOTAL (test code = 0.4 MG/DL 220) ALKALINE PHOSPHATASE (test 59 U/L code = 2204) AST (test code = 2218) 26 U/L ALT (test code = 2219) 20 U/L COMPREHENSIVE METABOLIC [id number] 00:00:00 Test Item Value Reference Range Interpretation Comments GLUCOSE (test code = 2217) 103 MG/DL BUN (test code = 2208) 13 MG/DL CREATININE (test code = 2214) 0.83 MG/DL eGFR AMER. (test code 88 ML/MIN/1.73 = 18378) eGFR NON- AMER. (test 76 ML/MIN/1.73 code = 49401) CALC BUN/CREAT (test code = 16 RATIO 2235) SODIUM (test code = 2231) 141 MEQ/L POTASSIUM (test code = 2228) 4.7 MEQ/L CHLORIDE (test code = 2215) 98 MEQ/L CARBON DIOXIDE (test code = 26 MEQ/L 2205) CALCIUM (test code = 2209) 9.9 MG/DL PROTEIN, TOTAL (test code = 7.1 G/DL 9) ALBUMIN (test code = 2201) 4.8 G/DL CALC GLOBULIN (test code = 2.3 G/DL 2240) CALC A/G RATIO (test code = 2.1 RATIO 2234) BILIRUBIN, TOTAL (test code = 0.4 MG/DL 7) ALKALINE PHOSPHATASE (test 59 U/L code = 2204) AST (test code = 2218) 26 U/L ALT (test code = 2219) 20 U/L HEMOGLOBIN [id number] 00:00:00 Test Item Value Reference Range Interpretation Comments HEMOGLOBIN A1c (test code = 86363) 5.9 % HEMOGLOBIN [id number] 00:00:00 Test Item Value Reference Range Interpretation Comments HEMOGLOBIN A1c (test code = 50364) 5.9 % HEMOGLOBIN [id number] 00:00:00 Test Item Value Reference Range Interpretation Comments HEMOGLOBIN A1c (test code = 21195) 5.9 % LIPID [id number] 00:00:00 Test Item Value Reference Range Interpretation Comments CHOLESTEROL (test code = 2210) 138 MG/DL TRIGLYCERIDES (test code = 2232) 158 MG/DL HDL CHOLESTEROL (test code = 2220) 43 MG/DL CALC LDL CHOL (test code = 2237) 63 MG/DL RISK RATIO LDL/HDL (test code = 1.47 RATIO 2238) LIPID [id number] 00:00:00 Test Item Value Reference Range Interpretation Comments CHOLESTEROL (test code = 2210) 138 MG/DL TRIGLYCERIDES (test code = 2232) 158 MG/DL HDL CHOLESTEROL (test code = 2220) 43 MG/DL CALC LDL CHOL (test code = 2237) 63 MG/DL RISK RATIO LDL/HDL (test code = 1.47 RATIO 2238) COMPREHENSIVE METABOLIC [id number] 00:00:00 Test Item Value Reference Range Interpretation Comments GLUCOSE (test code = 2217) 103 MG/DL BUN (test code = 2208) 13 MG/DL CREATININE (test code = 2214) 0.83 MG/DL eGFR AMER. (test code 88 ML/MIN/1.73 = 07486) eGFR NON- AMER. (test 76 ML/MIN/1.73 code = 66357) CALC BUN/CREAT (test code = 16 RATIO [...] A/G RATIO (test code = 2.1 RATIO 223) BILIRUBIN, TOTAL (test code = 0.4 MG/DL 2206) ALKALINE PHOSPHATASE (test 59 U/L code = 2204) AST (test code = 2218) 26 U/L ALT (test code = 2219) 20 U/L COMPREHENSIVE METABOLIC [id number] 00:00:00 Test Item Value Reference Range Interpretation Comments GLUCOSE (test code = 2217) 103 MG/DL BUN (test code = 2208) 13 MG/DL CREATININE (test code = 2214) 0.83 MG/DL eGFR AMER. (test code 88 ML/MIN/1.73 = 76933) eGFR NON- AMER. (test 76 ML/MIN/1.73 code = 32044) CALC BUN/CREAT (test code = 16 RATIO [...] (test code = 2219) 20 U/L HEMOGLOBIN [id number] 00:00:00 Test Item Value Reference Range Interpretation Comments HEMOGLOBIN A1c (test code = 48806) 6.2 % HEMOGLOBIN [id number] 00:00:00 Test Item Value Reference Range Interpretation Comments HEMOGLOBIN A1c (test code = 84042) 6.2 % HEMOGLOBIN [id number] 00:00:00 Test Item Value Reference Range Interpretation Comments HEMOGLOBIN A1c (test code = 78903) 6.2 % HEMOGLOBIN [id number] 00:00:00 Test Item Value Reference Range Interpretation Comments HEMOGLOBIN A1c (test code = 86485) 6.2 % HEMOGLOBIN [id number] 00:00:00 Test Item Value Reference Range Interpretation Comments HEMOGLOBIN A1c (test code = 01403) 6.2 % HEMOGLOBIN [id number] 00:00:00 Test Item Value Reference Range Interpretation Comments HEMOGLOBIN A1c (test code = 15950) 6.2 % HEMOGLOBIN [id number] 00:00:00 Test Item Value Reference Range Interpretation Comments HEMOGLOBIN A1c (test code = 77740) 6.2 % HEMOGLOBIN [id number] 00:00:00 Test Item Value Reference Range Interpretation Comments HEMOGLOBIN A1c (test code = 29157) 6.2 % HEMOGLOBIN [id number] 00:00:00 Test Item Value Reference Range Interpretation Comments HEMOGLOBIN A1c (test code = 16150) 6.2 % HEMOGLOBIN [id number] 00:00:00 Test Item Value Reference Range Interpretation Comments HEMOGLOBIN A1c (test code = 23050) 6.2 % HEMOGLOBIN [id number] 00:00:00 Test Item Value Reference Range Interpretation Comments HEMOGLOBIN A1c (test code = 62528) 6.2 % HEMOGLOBIN [id number] 00:00:00 Test Item Value Reference Range Interpretation Comments HEMOGLOBIN A1c (test code = 70304) 6.2 % [id number] 00:00:00 Test Item Value Reference Range Interpretation Comments POTASSIUM (test code = 2228) 4.9 MEQ/L [id number] 00:00:00 Test Item Value Reference Range Interpretation Comments POTASSIUM (test code = 2228) 4.9 MEQ/L [id number] 00:00:00 Test Item Value Reference Range Interpretation Comments POTASSIUM (test code = 2228) 4.9 MEQ/L [id number] 00:00:00 Test Item Value Reference Range Interpretation Comments POTASSIUM (test code = 2228) 4.9 MEQ/L [id number] 00:00:00 Test Item Value Reference Range Interpretation Comments POTASSIUM (test code = 2228) 4.9 MEQ/L [id number] 00:00:00 Test Item Value Reference Range Interpretation Comments POTASSIUM (test code = 2228) 4.9 MEQ/L [id number] 00:00:00 Test Item Value Reference Range Interpretation Comments POTASSIUM (test code = 2228) 4.9 MEQ/L [id number] 00:00:00 Test Item Value Reference Range Interpretation Comments POTASSIUM (test code = 2228) 4.9 MEQ/L HEMOGLOBIN [id number] 00:00:00 Test Item Value Reference Range Interpretation Comments HEMOGLOBIN A1c (test code = 46795) 6.8 % HEMOGLOBIN [id number] 00:00:00 Test Item Value Reference Range Interpretation Comments HEMOGLOBIN A1c (test code = 26848) 6.8 % HEMOGLOBIN [id number] 00:00:00 Test Item Value Reference Range Interpretation Comments HEMOGLOBIN A1c (test code = 46925) 6.8 % COMPREHENSIVE METABOLIC [id number] 00:00:00 Test Item Value Reference Range Interpretation Comments GLUCOSE (test code = 2217) 108 MG/DL BUN (test code = 2208) 13 MG/DL CREATININE (test code = 2214) 0.75 MG/DL eGFR AMER. (test code 99 ML/MIN/1.73 = 62998) eGFR NON- AMER. (test 85 ML/MIN/1.73 code = 08126) CALC BUN/CREAT (test code = 17 RATIO [...] code = 2219) 22 U/L COMPREHENSIVE METABOLIC [id number] 00:00:00 Test Item Value Reference Range Interpretation Comments GLUCOSE (test code = 2217) 108 MG/DL BUN (test code = 2208) 13 MG/DL CREATININE (test code = 2214) 0.75 MG/DL eGFR AMER. (test code 99 ML/MIN/1.73 = 68262) eGFR NON- AMER. (test 85 ML/MIN/1.73 code = 09321) CALC BUN/CREAT (test code = 17 RATIO [...] (test code = 2219) 22 U/L HEMOGLOBIN [id number] 00:00:00 Test Item Value Reference Range Interpretation Comments HEMOGLOBIN A1c (test code = 98222) 6.8 % HEMOGLOBIN [id number] 00:00:00 Test Item Value Reference Range Interpretation Comments HEMOGLOBIN A1c (test code = 19484) 6.8 % HEMOGLOBIN [id number] 00:00:00 Test Item Value Reference Range Interpretation Comments HEMOGLOBIN A1c (test code = 62915) 6.8 % COMPREHENSIVE METABOLIC [id number] 00:00:00 Test Item Value Reference Range Interpretation Comments GLUCOSE (test code = 2217) 108 MG/DL BUN (test code = 2208) 13 MG/DL CREATININE (test code = 2214) 0.75 MG/DL eGFR AMER. (test code 99 ML/MIN/1.73 = 61164) eGFR NON- AMER. (test 85 ML/MIN/1.73 code = 01380) CALC BUN/CREAT (test code = 17 RATIO [...] code = 2219) 22 U/L COMPREHENSIVE METABOLIC [id number] 00:00:00 Test Item Value Reference Range Interpretation Comments GLUCOSE (test code = 2217) 108 MG/DL BUN (test code = 2208) 13 MG/DL CREATININE (test code = 2214) 0.75 MG/DL eGFR AMER. (test code 99 ML/MIN/1.73 = 42167) eGFR NON- AMER. (test 85 ML/MIN/1.73 code = 47700) CALC BUN/CREAT (test code = 17 RATIO [...] (test code = 2219) 22 U/L HEMOGLOBIN [id number] 00:00:00 Test Item Value Reference Range Interpretation Comments HEMOGLOBIN A1c (test code = 31998) 6.8 % HEMOGLOBIN [id number] 00:00:00 Test Item Value Reference Range Interpretation Comments HEMOGLOBIN A1c (test code = 19945) 6.8 % HEMOGLOBIN [id number] 00:00:00 Test Item Value Reference Range Interpretation Comments HEMOGLOBIN A1c (test code = 17390) 6.8 % COMPREHENSIVE METABOLIC [id number] 00:00:00 Test Item Value Reference Range Interpretation Comments GLUCOSE (test code = 2217) 108 MG/DL BUN (test code = 2208) 13 MG/DL CREATININE (test code = 2214) 0.75 MG/DL eGFR AMER. (test code 99 ML/MIN/1.73 = 49862) eGFR NON- AMER. (test 85 ML/MIN/1.73 code = 36215) CALC BUN/CREAT (test code = 17 RATIO 2235) SODIUM (test code = 2231) 140 MEQ/L POTASSIUM (test code = 2228) 6.0 MEQ/L CHLORIDE (test code = 2215) 103 MEQ/L CARBON DIOXIDE (test code = 26 MEQ/L 220) CALCIUM (test code = 2209) 9.7 MG/DL PROTEIN, TOTAL (test code = 7.1 G/DL 222) ALBUMIN (test code = 2201) 4.6 G/DL CALC GLOBULIN (test code = 2.5 G/DL 2240) CALC A/G RATIO (test code = 1.8 RATIO 2234) BILIRUBIN, TOTAL (test code = 0.5 MG/DL 2206) ALKALINE PHOSPHATASE (test 74 U/L code = 2204) AST (test code = 2218) 33 U/L ALT (test code = 2219) 22 U/L COMPREHENSIVE METABOLIC [id number] 00:00:00 Test Item Value Reference Range Interpretation Comments GLUCOSE (test code = 2217) 108 MG/DL BUN (test code = 2208) 13 MG/DL CREATININE (test code = 2214) 0.75 MG/DL eGFR AMER. (test code 99 ML/MIN/1.73 = 57323) eGFR NON- AMER. (test 85 ML/MIN/1.73 code = 24846) CALC BUN/CREAT (test code = 17 RATIO [...] (test code = 2219) 22 U/L HEMOGLOBIN [id number] 00:00:00 Test Item Value Reference Range Interpretation Comments HEMOGLOBIN A1c (test code = 73338) 6.8 % HEMOGLOBIN [id number] 00:00:00 Test Item Value Reference Range Interpretation Comments HEMOGLOBIN A1c (test code = 09105) 6.8 % HEMOGLOBIN [id number] 00:00:00 Test Item Value Reference Range Interpretation Comments HEMOGLOBIN A1c (test code = 97228) 6.8 % COMPREHENSIVE METABOLIC [id number] 00:00:00 Test Item Value Reference Range Interpretation Comments GLUCOSE (test code = 2217) 108 MG/DL BUN (test code = 2208) 13 MG/DL CREATININE (test code = 2214) 0.75 MG/DL eGFR AMER. (test code 99 ML/MIN/1.73 = 82977) eGFR NON- AMER. (test 85 ML/MIN/1.73 code = 20883) CALC BUN/CREAT (test code = 17 RATIO [...] code = 2219) 22 U/L COMPREHENSIVE METABOLIC [id number] 00:00:00 Test Item Value Reference Range Interpretation Comments GLUCOSE (test code = 2217) 108 MG/DL BUN (test code = 2208) 13 MG/DL CREATININE (test code = 2214) 0.75 MG/DL eGFR AMER. (test code 99 ML/MIN/1.73 = 36782) eGFR NON- AMER. (test 85 ML/MIN/1.73 code = 11182) CALC BUN/CREAT (test code = 17 RATIO [...] (test code = 2219) 22 U/L HEMOGLOBIN A1c [ADDED]2018-01-05 00:00:00 Test Item Value Reference Range Interpretation Comments HEMOGLOBIN A1c (test code = 84230) 7.3 % HEMOGLOBIN A1c [ADDED]2018-01-05 00:00:00 Test Item Value Reference Range Interpretation Comments HEMOGLOBIN A1c (test code = 72566) 7.3 % HEMOGLOBIN A1c [ADDED]2018-01-05 00:00:00 Test Item Value Reference Range Interpretation Comments HEMOGLOBIN A1c (test code = 51513) 7.3 % LIPID PANEL [ADDED]2018-01-05 00:00:00 Test [...] eGFR AMER. (test code 93 ML/MIN/1.73 = 71289) eGFR NON- AMER. (test 80 ML/MIN/1.73 code = 99608) CALC BUN/CREAT (test code = 15 RATIO [...] eGFR AMER. (test code 93 ML/MIN/1.73 = 26601) eGFR NON- AMER. (test 80 ML/MIN/1.73 code = 17096) CALC BUN/CREAT (test code = 15 RATIO [...] Interpretation Comments HEMOGLOBIN A1c (test code = 54801) 7.3 % HEMOGLOBIN A1c [ADDED]2018-01-05 00:00:00 Test Item Value Reference Range Interpretation Comments HEMOGLOBIN A1c (test code = 88794) 7.3 % HEMOGLOBIN A1c [ADDED]2018-01-05 00:00:00 Test Item Value Reference Range Interpretation Comments HEMOGLOBIN A1c (test code = 06683) 7.3 % LIPID PANEL [ADDED]2018-01-05 00:00:00 Test [...] eGFR AMER. (test code 93 ML/MIN/1.73 = 36249) eGFR NON- AMER. (test 80 ML/MIN/1.73 code = 59865) CALC BUN/CREAT (test code = 15 RATIO 2235) SODIUM (test code = 2231) 139 MEQ/L POTASSIUM (test code = 2228) 5.3 MEQ/L CHLORIDE (test code = 2215) 102 MEQ/L CARBON DIOXIDE (test code = 23 MEQ/L 2206) CALCIUM (test code = 2209) 9.6 MG/DL PROTEIN, TOTAL (test code = 7.3 G/DL 222) ALBUMIN (test code = 2201) 4.6 G/DL CALC GLOBULIN (test code = 2.7 G/DL 2240) CALC A/G RATIO (test code = 1.7 RATIO 2234) BILIRUBIN, TOTAL (test code = 0.4 MG/DL 2207) ALKALINE PHOSPHATASE (test 79 U/L code = 2204) AST (test code = 2218) 36 U/L ALT (test code = 2219) 43 U/L COMPREHENSIVE METABOLIC PANEL [ADDED]2018-01-05 00:00:00 Test Item Value Reference Range Interpretation Comments GLUCOSE (test code = 2217) 133 MG/DL BUN (test code = 2208) 12 MG/DL CREATININE (test code = 2214) 0.79 MG/DL eGFR AMER. (test code 93 ML/MIN/1.73 = 58151) eGFR NON- AMER. (test 80 ML/MIN/1.73 code = 15932) CALC BUN/CREAT (test code = 15 RATIO [...] = 0.4 MG/DL 2207) ALKALINE PHOSPHATASE (test 79 U/L code = 2204) AST (test code = 2218) 36 U/L ALT (test code = 2219) 43 U/L HEMOGLOBIN A1c [ADDED]2018-01-05 00:00:00 Test Item Value Reference Range Interpretation Comments HEMOGLOBIN A1c (test code = 44327) 7.3 % HEMOGLOBIN A1c [ADDED]2018-01-05 00:00:00 Test Item Value Reference Range Interpretation Comments HEMOGLOBIN A1c (test code = 63614) 7.3 % HEMOGLOBIN A1c [ADDED]2018-01-05 00:00:00 Test Item Value Reference Range Interpretation Comments HEMOGLOBIN A1c (test code = 31988) 7.3 % LIPID PANEL [ADDED]2018-01-05 00:00:00 Test [...] eGFR AMER. (test code 93 ML/MIN/1.73 = 28595) eGFR NON- AMER. (test 80 ML/MIN/1.73 code = 62186) CALC BUN/CREAT (test code = 15 RATIO [...] CALC GLOBULIN (test code = 2.7 G/DL 2239) CALC A/G RATIO (test code = 1.7 [...] eGFR AMER. (test code 93 ML/MIN/1.73 = 34331) eGFR NON- AMER. (test 80 ML/MIN/1.73 code = 52814) CALC BUN/CREAT (test code = 15 RATIO [...] CALC GLOBULIN (test code = 2.7 G/DL 2239) CALC A/G RATIO (test code = 1.7 RATIO 2234) BILIRUBIN, TOTAL (test code = 0.4 MG/DL 2206) ALKALINE PHOSPHATASE (test 79 U/L code = 2204) AST (test code = 2218) 36 U/L ALT (test code = 2219) 43 U/L HEMOGLOBIN A1c [ADDED]2018-01-05 00:00:00 Test Item Value Reference Range Interpretation Comments HEMOGLOBIN A1c (test code = 39661) 7.3 % HEMOGLOBIN A1c [ADDED]2018-01-05 00:00:00 Test Item Value Reference Range Interpretation Comments HEMOGLOBIN A1c (test code = 50378) 7.3 % HEMOGLOBIN A1c [ADDED]2018-01-05 00:00:00 Test Item Value Reference Range Interpretation Comments HEMOGLOBIN A1c (test code = 78185) 7.3 % LIPID PANEL [ADDED]2018-01-05 00:00:00 Test [...] eGFR AMER. (test code 93 ML/MIN/1.73 = 92598) eGFR NON- AMER. (test 80 ML/MIN/1.73 code = 22854) CALC BUN/CREAT (test code = 15 RATIO [...] eGFR AMER. (test code 93 ML/MIN/1.73 = 25938) eGFR NON- AMER. (test 80 ML/MIN/1.73 code = 95342) CALC BUN/CREAT (test code = 15 RATIO [...] code = 2219) 43 U/L COMPREHENSIVE METABOLIC [id number] 00:00:00 Test Item Value Reference Range Interpretation Comments GLUCOSE (test code = 221) 109 MG/DL BUN (test code = 2208) 13 MG/DL CREATININE (test code = 2214) 0.66 MG/DL eGFR AMER. (test code 110 ML/MIN/1.73 = 84585) eGFR NON- AMER. (test 95 ML/MIN/1.73 code = 73980) CALC BUN/CREAT (test code = 20 RATIO 223) SODIUM (test code = 2231) 142 MEQ/L [...] code = 2219) 27 U/L COMPREHENSIVE METABOLIC [id number] 00:00:00 Test Item Value Reference Range Interpretation Comments GLUCOSE (test code = 2217) 109 MG/DL BUN (test code = 2208) 13 MG/DL CREATININE (test code = 2214) 0.66 MG/DL eGFR AMER. (test code 110 ML/MIN/1.73 = 44765) eGFR NON- AMER. (test 95 ML/MIN/1.73 code = 95607) CALC BUN/CREAT (test code = 20 RATIO [...] code = 2219) 27 U/L COMPREHENSIVE METABOLIC [id number] 00:00:00 Test Item Value Reference Range Interpretation Comments GLUCOSE (test code = 2217) 109 MG/DL BUN (test code = 2208) 13 MG/DL CREATININE (test code = 2214) 0.66 MG/DL eGFR AMER. (test code 110 ML/MIN/1.73 = 93625) eGFR NON- AMER. (test 95 ML/MIN/1.73 code = 47209) CALC BUN/CREAT (test code = 20 RATIO [...] code = 2219) 27 U/L COMPREHENSIVE METABOLIC [id number] 00:00:00 Test Item Value Reference Range Interpretation Comments GLUCOSE (test code = 2217) 109 MG/DL BUN (test code = 2208) 13 MG/DL CREATININE (test code = 2214) 0.66 MG/DL eGFR AMER. (test code 110 ML/MIN/1.73 = 37410) eGFR NON- AMER. (test 95 ML/MIN/1.73 code = 26591) CALC BUN/CREAT (test code = 20 RATIO [...] CALC GLOBULIN (test code = 2.8 G/DL 0) CALC A/G RATIO (test code = 1.6 RATIO 2234) BILIRUBIN, TOTAL (test code = 0.6 MG/DL 2206) ALKALINE PHOSPHATASE (test 70 U/L code = 2204) AST (test code = 2218) 24 U/L ALT (test code = 2219) 27 U/L COMPREHENSIVE METABOLIC [id number] 00:00:00 Test Item Value Reference Range Interpretation Comments GLUCOSE (test code = 2217) 109 MG/DL BUN (test code = 2208) 13 MG/DL CREATININE (test code = 2214) 0.66 MG/DL eGFR AMER. (test code 110 ML/MIN/1.73 = 96721) eGFR NON- AMER. (test 95 ML/MIN/1.73 code = 72762) CALC BUN/CREAT (test code = 20 RATIO [...] code = 2219) 27 U/L COMPREHENSIVE METABOLIC [id number] 00:00:00 Test Item Value Reference Range Interpretation Comments GLUCOSE (test code = 2217) 109 MG/DL BUN (test code = 2208) 13 MG/DL CREATININE (test code = 2214) 0.66 MG/DL eGFR AMER. (test code 110 ML/MIN/1.73 = 97530) eGFR NON- AMER. (test 95 ML/MIN/1.73 code = 28105) CALC BUN/CREAT (test code = 20 RATIO [...] BILIRUBIN, TOTAL (test code = 0.6 MG/DL 7) ALKALINE PHOSPHATASE (test 70 U/L code = 2204) AST (test code = 2218) 24 U/L ALT (test code = 2219) 27 U/L COMPREHENSIVE METABOLIC [id number] 00:00:00 Test Item Value Reference Range Interpretation Comments GLUCOSE (test code = 2217) 109 MG/DL BUN (test code = 2208) 13 MG/DL CREATININE (test code = 2214) 0.66 MG/DL eGFR AMER. (test code 110 ML/MIN/1.73 = 14136) eGFR NON- AMER. (test 95 ML/MIN/1.73 code = 63143) CALC BUN/CREAT (test code = 20 RATIO [...] code = 2219) 27 U/L COMPREHENSIVE METABOLIC [id number] 00:00:00 Test Item Value Reference Range Interpretation Comments GLUCOSE (test code = 2217) 109 MG/DL BUN (test code = 2208) 13 MG/DL CREATININE (test code = 2214) 0.66 MG/DL eGFR AMER. (test code 110 ML/MIN/1.73 = 53058) eGFR NON- AMER. (test 95 ML/MIN/1.73 code = 55827) CALC BUN/CREAT (test code = 20 RATIO [...]
[2022-04-18 18:25] LABS: Absolute Lymphocytes (CBC) 0.4 K/uL (0.7-4.9); Hematocrit 39.5 % (36.0-45.0); Lymphocytes % 3.3 % (15.3-44.8); MCV 92.8 fL (80-100); MPV 7.7 fL (7.6-11.3); RBC Red Blood Cell Count 4.26 M/uL (3.86-4.86)
[2022-04-18 18:44] LABS: Potassium 3.7 mmol/L (3.5-5.1)
[2022-04-18] MEDS ORDERED: FUROSEMIDE 40 MG/4 ML VIAL ONE (19:03)
[2022-04-18] MEDS ORDERED: PIPERACIL/TAZO 3.375 GM VIAL IV ONE ×2 (19:04→19:36)
[2022-04-18] MEDS ORDERED: NA CHLORIDE 0.9% 0 ML ONE (19:04)
[2022-04-18 19:19] LABS: Blood Morphology Comment NOT SEEN (NOT SEEN); Platelet Estimate ADEQ; White Blood Cell Scan OK (OK)
[2022-04-18 19:20] LABS: Basophilic Stippling 1+
[2022-04-18] MEDS ORDERED: FUROSEMIDE 20 MG/ 2ML VIAL ONE (19:35)
[2022-04-18] MEDS ORDERED: Meropenem 1000 MG/VIAL IV ONE (19:35)
[2022-04-18] MEDS ORDERED: NA CHLORIDE 0.9% 200 ML ONE (19:36)
[2022-04-18] MEDS ORDERED: INSULIN -REGULAR HUMAN 50 UNIT/0.5 ML ML ONE (20:01)
--- NOTE | 2022-04-18 20:08 | P.HP ---
Certification for Inpatient Patient admitted to: Observation With expected LOS: <2 Midnights Patient will require the following post-hospital care: None Practitioner: I am a practitioner with admitting privileges, knowledge of patient current condition, hospital course, and medical plan of care. Services: Services provided to patient in accordance with Admission requirements found in Title 42 Section 412.3 of the Code of Federal Regulations Patient History Date of Service: 04/18/22 Reason for admission: COPD Exacerbation History of Present Illness: Patient is a 66 year old female with past medical history of COPD on home O2 (2.5LNC), tobacco abuse, IDDM2, HTN, and HLD who presented to the emergency department via EMS with complaints of shortness of breath, wheezing, and hypoxia. Patient was in the emergency department earlier today with COPD exacerbation but refused admission. Her wheezing and shortness of breath have worsened since. She was noted to be tachypneic, tachycardic, wheezing, and mildly hypoxic. Chest x-ray was clear of any acute infiltrates. Chest CTA also negative for any consolidation, pulmonary congestion, or pleural effusions. Her labs are significant for WBC 11.6 with left shift, glucose 399, lactate 3.2, BNP 1752. COVID/flu negative. She had moderate improvement with breathing treatments, but still remained tachypneic, tachycardic, and short of breath on 4L NC. Patient is agreeable to admission. Allergies No Known Allergies Allergy (Verified 04/20/21 07:15) Home medications list reviewed: Yes Home Medications: Albuterol Sulfate [Proventil Hfa] 1 puff IH BID PRN 04/20/21 Aspirin [Aspirin EC] 81 mg PO DAILY 04/20/21 Atorvastatin Calcium [Lipitor] 80 mg PO DAILY 04/20/21 Buspirone HCl 15 mg PO DAILY 04/20/21 Clopidogrel Bisulfate [Plavix*] 75 mg PO DAILY 04/20/21 Fluticasone [Flovent Hfa 110*] 1 spray IH BID 04/20/21 Fluticasone/Umeclidin/Vilanter [Trelegy Ellipta 100-62.5-25] 1 each IH DAILY 04/20/21 Guaifenesin/Dextromethorphan [Mucus Relief Dm Cough Tablet] 1 each PO BID 04/20/21 Ipratropium/Albuterol Sulfate [Iprat-Albut 0.5-3(2.5) mg/3 ml] 3 ml IH Q6HP PRN 04/20/21 Lamotrigine [Lamictal] 100 mg PO BID 04/20/21 Linagliptin [Tradjenta] 5 mg PO DAILY 04/20/21 Metoprolol Tartrate 25 mg PO BID 04/20/21 Prednisone [Sterapred Ds] 10 mg PO DAILY 04/20/21 Roflumilast [Daliresp] 500 mcg PO DAILY 04/20/21 Trazodone HCl 100 mg PO DAILY 04/20/21 Budesonide [Pulmicort Flexhaler] 90 mcg IH DAILYPRN PRN 11/09/21 Buspirone HCl [Buspar] 30 mg PO BEDTIME 11/09/21 Fluoxetine HCl [Prozac] 20 mg PO DAILY 11/09/21 Insulin Glargine,Hum.rec.anlog [Lantus] 10 unit SQ BID 11/09/21 predniSONE [Deltasone*] 10 mg PO DAILY 60 Days #60 tab 11/10/21 predniSONE [Prednisone] 20 mg PO SEECOM 7 Days #11 tab 11/10/21 - Past Medical/Surgical History Diabetic: Yes -: COPD -: HTN -: Diabetes mellitus type 2 -: CAD -: Depression -: bipolar -: anxiety -: -: Stents Psychosocial/ Personal History: Patient is retired, lives with her daughter - Family History Father Notes: Patient is adopted - Social History Smoking Status: Current every day smoker Alcohol use: No CD- Drugs: No Caffeine use: Yes Place of Residence: Home Review of Systems Respiratory: Cough, Shortness of Breath, SOB with Excertion, Wheezing Physical Examination - Vital Signs Temperature: 99.1 F Blood Pressure: 153/95 Pulse: 123 Respirations: 20 Pulse Ox (%): 92 (4L NC) - Physical Exam General: Alert, In no apparent distress HEENT: Atraumatic, EOMI, Sclerae nonicteric Neck: Supple, 2+ carotid pulse no bruit Respiratory: Crackles/rales, Inspiratory wheezes Cardiovascular: Regular rate/rhythm, Normal S1 S2 Gastrointestinal: Normal bowel sounds, No tenderness Musculoskeletal: No tenderness Integumentary: No rashes Neurological: Normal speech, Normal affect - Studies Laboratory Data (last 24 hrs) 04/18/22 18:12: Sodium 136, Potassium 3.7, BUN 17, Creatinine 0.93, Glucose 399 H 04/18/22 18:12: WBC 11.60 H, Hgb 12.9, Hct 39.5, Plt Count 225 Assessment and Plan - Problems (Diagnosis) (1) COPD exacerbation Current Visit: Yes Status: Acute (2) Anxiety Current Visit: Yes Status: Chronic (3) HTN (hypertension) Current Visit: Yes Status: Chronic Qualifiers: Hypertension type: primary hypertension Qualified Code(s): I10 - Essential (primary) hypertension (4) T2DM (type 2 diabetes mellitus) Current Visit: Yes Status: Chronic Qualifiers: Diabetes mellitus nursing home insulin use: without termite exterminator use Diabetes mellitus complication status: with hyperglycemia Qualified Code(s): E11.65 - Type 2 diabetes mellitus with hyperglycemia (5) Tobacco abuse Current Visit: Yes Status: Chronic (6) Coronary artery disease Current Visit: Yes Status: Chronic Qualifiers: Coronary Disease-Associated Artery/Lesion type: [place] artery [place] vs. transplanted heart: [place] heart Associated angina: without angina Qualified Code(s): I25.10 - Atherosclerotic heart disease of [place] coronary artery without angina pectoris - Plan Acute COPD exacerbation solumedrol, nebs ordered Wean oxygen as tolerated Patient is on chronic 2.5L nasal cannula at home Gets short of breath easily at baseline with ambulation Pulmonology consult IDDM 2 Sliding scale insulin, aggressive Patient has received a lot of steroids throughout the day confirm home insulin dose and resume Severe sepsis? no source identified but with tachycardia, tachypnea, lactate 3.2 patient received a lot of albuterol which could be contributing to the elevated lactate. repeat pending received meropenem and zosyn in ED due to reported history of klebsiella Blood cultures obtained Tobacco Abuse Nicotine patch ordered, patient counseled on smoking cessation Confirm home medications and continue antihypertensives and antidepressant VTE: Lovenox Code: Full Discharge Plan: Home Plan to discharge in: 24 Hours - Advance Directives Does patient have a Living Will: Yes Does patient have a Durable POA for Healthcare: Yes - Code Status/Comfort Care Code Status Assessed: Yes Code Status: Full Code Physician Review: Patient Assessed, Agree with Above Assessment and Plan Critical Care: No Time Spent Managing Pts Care (In Minutes): 50
--- NOTE | 2022-04-18 20:23 | RAD REPORT ---
EXAM DESCRIPTION: CT - Chest For Pe Angio - 04/18/2022 8:13 pm CLINICAL HISTORY: COPD COMPARISON: Chest For Pe Angio dated 12/06/2020 TECHNIQUE: Dynamically enhanced axial 3 mm thick images of the chest were obtained during administra tion of <100> mL Isovue 370 IV contrast. Coronal and oblique reconstruction images were generated and reviewed. Exam utilizes a protocol for optimal evaluation of pulmonary arterial tree. Maximum intensity projections 3D imaging was utilized All CT scans are performed using dose optimization technique as appropriate and may include automated exposure control or mA/KV adjustment according to patient size. FINDINGS: Chest Wall: No suspicious thyroid nodules or pathologic lymphadenopathy. Lungs: No acute abnormality. Emphysema. Pleura: No significant effusions or pneumothorax. Mediastinum/holly: No pathologic lymphadenopathy. Pulmonary arteries/Aorta: No filling defect identified. No aortic aneurysm. Heart: No significant pericardial effusion. Normal heart size. Multi-vessel coronary artery disease. Upper abdomen: Too small to characterize and/or benign appearing renal lesions are noted. Left adrena l nodule is unchanged and likely benign. Bones: No acute abnormality. IMPRESSION: Negative for pulmonary embolism. No acute findings are present within the chest.
[2022-04-18] MEDS ORDERED: ALBUTEROL 2.5 MG/3 ML NEB SOL ONE (20:44)
[2022-04-18] MEDS ORDERED: IPRATROPIUM BROM 0.5MG/2.5ML ONE (20:44)
[2022-04-18] MEDS ORDERED: NA CHLORIDE 0.9% 500 ML IV ONE (21:06)
[2022-04-18] MEDS ORDERED: ONDANSETRON 4 MG/2 ML VIAL IV PRN (21:06)
[2022-04-18] MEDS ORDERED: METOPROLOL TARTRATE 5 MG/5 ML INJ IV ONE (21:06)
[2022-04-18] MEDS: INSULIN -REGULAR HUMAN 50 UNIT/0.5 ML ML SQ SCH (21:06)
[2022-04-18] MEDS ORDERED: NA CHLORIDE 0.9% 1,000 ML IV ONE (21:15)
[2022-04-18 22:17] VITALS: BMI 21.8
[2022-04-18] MEDS: NICOTINE 21 MG/PAT TD SCH (22:19)
[2022-04-18] MEDS: ACETAMINOPHEN 500 MG TAB PO PRN (22:21)
--- NOTE | 2022-04-19 04:06 | P.INFCA ---
Sepsis Focused Assessment - Focused Assessment Complete? Sepsis Focused Assessment Completed?: Yes - Sepsis Screen Result Severe Sepsis: Positive Septic Shock: Negative - Evaluation Current stage of sepsis: Severe sepsis - Vital Signs Reviewed: Yes Temperature: 97.8 F Heart rate: 107 Blood Pressure: 140/69 Respiratory Rate: 17 O2 Sat by Pulse Oximetry: 95 - Examination Comments: sepsis reassessment complete, delay in lab obtaining repeat lactate
[2022-04-19 04:11] LABS: Absolute Lymphocytes (CBC) 0.9 K/uL (0.7-4.9); Hematocrit 36.5 % (36.0-45.0); Lymphocytes % 6.3 % (15.3-44.8); MPV 7.7 fL (7.6-11.3); RBC Red Blood Cell Count 3.97 M/uL (3.86-4.86)
[2022-04-19 04:37] LABS: Magnesium 2.1 mg/dL (1.6-2.4); Phosphorus 2.8 mg/dL (2.5-4.9); Potassium 3.3 mmol/L (3.5-5.1); Thyroid Stimulating Hormone 0.29 uIU/mL (0.358-3.740)
[2022-04-19] MEDS: INSULIN -REGULAR HUMAN 50 UNIT/0.5 ML ML SQ SCH ×3 (08:20→16:22)
[2022-04-19] MEDS: NICOTINE 21 MG/PAT TD SCH (08:22)
[2022-04-19] MEDS ORDERED: ENOXAPARIN 40 MG/0.4 ML SQ SCH (09:00)
[2022-04-19] MEDS ORDERED: POTASSIUM CL SA 10 MEQ TAB PO ONE (09:00)
[2022-04-19] MEDS: IPRATROPIUM BROM 0.5MG/2.5ML NEB PRN ×2 (10:59→17:03)
[2022-04-19] MEDS: ALBUTEROL 2.5 MG/3 ML NEB SOL NEB PRN ×2 (10:59→17:03)
[2022-04-19] MEDS ORDERED: AZITHROMYCIN 250 MG TAB PO ONE (15:30)
[2022-04-19] MEDS ORDERED: CEFTRIAXONE 1,000 MG in NA CHLORIDE 0.9% 50 ML IVPB ONE (15:30)
[2022-04-19 16:45] VITALS: BP 152/71; TEMP 97.4
[2022-04-19] MEDS ORDERED: clonazePAM 0.5 MG TAB PO ONE (17:38)
[2022-04-19] MEDS: ACETAMINOPHEN 500 MG TAB PO PRN (17:49)
[2022-04-19 18:09] VITALS: O2SAT 95
--- NOTE | 2022-04-20 13:07 | EKG ---
Test Date: 2022-04-18 Test Time: 16:07:26 Victims Advocate Clerk/Specialist: LARRY MEASUREMENT RESULTS: Intervals: Rate: 125 WV: 136 QRSD: 80 QT: 326 QTc: 470 [place]: P: 89 WV: 136 QRS: 78 T: 90 INTERPRETIVE STATEMENTS: Sinus tachycardia Biatrial enlargement RSR' or QR pattern in V1 suggests right ventricular conduction delay Abnormal ECG Compared to ECG 04/18/2022 03:25:26 RSR' in V1 or V2 now present Sinus rhythm no longer present Electronically Signed On 04-20-22 13:04:03 CDT by Ghanshyam Knox
== END 2022-04-19 21:55 | disposition home or self-care (01) ==
LOC: ER 15:57 → ERHOLD 19:57 → 2ND 21:19
PROVIDERS: ADMIT Hospitalist; ATTEND Hospitalist
DX: J44.1 Chronic obstructive pulmonary disease with (acute) exacerbation (principal); E11.65 Type 2 diabetes mellitus with hyperglycemia; I10 Essential (primary) hypertension; I25.10 Atherosclerotic heart disease of native coronary artery without angina pectoris; E78.5 Hyperlipidemia, unspecified; F17.210 Nicotine dependence, cigarettes, uncomplicated; F41.9 Anxiety disorder, unspecified; Z79.4 Long term (current) use of insulin
CPT/HCPCS: 87040 ×2; 85025 ×2; 80048 ×2; 36415; 83735; 84100; 84132; 80061; 82947 ×4; 83605 ×3; 84443; 83880; 71275; 94640 ×2; 94760 ×3; 99285; Q9967; J1815 ×4; J1940 ×2; J2543; J7613 ×3; J7644 ×3; J1650; J2185; J7040; J7030; 93005

== ENCOUNTER 2022-07-02 20:09 | Emergency (ER) | payer OTHER ==
--- OUTSIDE RECORDS SUMMARY | 2022-07-02 20:27 | XMS REPORT | Continuity of Care Document ---
:[address] [facility] t Address [address] [place] [address] Care Team Providers Name Role Phone Asked, No Pcp Primary Care Physician Unavailable Rogelio Oconnor Attending Clinician Zina DALY, Colette De León Attending Clinician Demetri Flynn MD Attending Clinician Doctor Unassigned, [place] Attending Clinician Unavailable Sarah Barkley Attending Clinician Minna Mike MD Attending Clinician Don DALY, Troy Thibodeaux Attending Clinician Chiqui BOB, David Alva Attending Clinician [phone] MINNA MIKE Attending Clinician Unavailable Soila Villar DO Attending Clinician SOILA VILLAR Attending Clinician Unavailable DEMETRI FLYNN Admitting Clinician Unavailable Chiqui BOB, David Alva Admitting Clinician [phone] SOILA VILLAR Admitting Clinician Unavailable Payers [...] breath[place] [facility] Peripheral Problem Active 2021-12-08 [facility] [place] 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 Shay (disorder) disease (disorder) Active Problem 12/08/2021 [facility] No known No known Disease Unive rs active active ity of problems problems [facility] Right Right Problem Active 2021-12-08 Memor ia [...] Univers DRAMINE INGREDI 6-18 ity of 00:00: [address] Branch Diphenhy Propensi Active Anxiety 2020-0 Unive rs dramine ty to 6-18 ity of adverse 00:00: [place] reaction 00 Medical s Branch NO KNOWN Drug Active Univers ALLERGIE Class ity of S [facility] Social History Social Habit Start Date Stop Date Quantity Comments Source History of tobacco Cigarette Smoker [facility] Exposure to Not sure University of SARS-CoV-2 (event) [facility] Gender identity [facility] Sexual orientation [facility] History of Social 2021-07-16 2021-07-[address] function 00:00:00 00:00:00 Hospital Tobacco use and 2021-07-15 2021-07-15 Smokeless [facility] exposure 00:00:00 00:00:00 tobacco non-user Hospital Alcohol intake 2021-07-15 2021-07-15 Ex-drinker [facility] 00:00:00 00:00:00 (finding) Hospital Cigarettes smoked 2021-07-15 2021-07-15 Methodi current (pack per 00:00:00 00:00:00 Hospita l day) - Reported Cigarette 2019-12-28 2019-12-28 University of pack-years 00:00:00 00:00:00 [place] [facility] [place] History SDOH 2019-12-28 2019-12-28 1 University o f Alcohol Frequency 00:00:00 00:00:00 [place] [facility] History SDAR 2019-12-28 2019-12-28 99 University o f Alcohol Std Drinks 00:00:00 00:00:00 [facility] History SDAR 2019-12-28 2019-12-28 1 University o f Alcohol Binge 00:00:00 00:00:00 [place] [facility] Sex [birth year] [facility] 00:00:00 00:00:00 Hospital Smoking Status Start Date Stop Date Source Smokes tobacco daily 2021-07-15 00:00:00 [facility] Unknown if ever smoked Universit y of [facility] Medications Ordered Filled Start Stop Current Ordering Indication Dosage Frequency Signature Comments Components Source Medication Medication Date Date Medication? Clinician (SIG) Name Name TAKE 2021-02 No 100 TABLET 0-30 TWICE 00:00: DAILY. 00 prednisone 2021-02 No 10 mg 0-29 tablet 00:00: 00 TAKE 2021-02 No 10 TABLET BY 0-29 MOUTH TWICE 00:00: DAILY 00 Dose 2022-1 No Unknown 0-11 00:00: 00 Dose 2-1 No Unknown 0-11 00:00: 00 Dose 2-1 No Unknown 0-11 00:00: 00 ipratropium 2-0 No 0.5 9-29 mg-albutero 00:00: [...] 20 mg 9-28 capsule 00:00: 00 fluoxetine 2-0 No 20 mg 9-28 capsule 00:00: 00 fluoxetine 2-0 No 20 mg 9-28 capsule 00:00: 00 TAKE 1 2-0 No TABLET AT 9-26 BEDTIME. 00:00: 00 TAKE 1 2-0 No TABLET AT 9-26 BEDTIME. 00:00: 00 TAKE 1 2-0 No 100 TABLET AT 9-26 BEDTIME. 00:00: 00 TAKE 1 2-0 No TABLET AT 9-26 BEDTIME. 00:00: 00 Dose 2-0 No Unknown 9-14 00:00: 00 Dose 2-0 No Unknown 9-14 00:00: 00 Dose 2-0 No Unknown 9-14 00:00: 00 Dose 2-0 No Unknown 9-14 00:00: 00 Dose 2-0 No Unknown - 00:00: 00 quetiapine 2-0 No 25 mg 9-13 tablet 00:00: 00 prednisone 2-0 No 20 mg 9-13 tablet 00:00: 00 Dose 2-0 No Unknown 9 00:00: 00 Dose 2022-0 No Unknown 9-13 [...] subcutaneou s pen Dose 2-0 No Unknown 8-16 00:00: 00 Lantus 2022-0 No Solostar 8-16 U-100 00:00: Insulin 100 00 unit/mL (3 mL) subcutaneou s pen Dose 2-0 No Unknown 8-16 00:00: 00 Lantus 2022-0 [...] 8- 00:00: 00 Dose 2022-0 No Unknown 8 00:00: 00 &lt 2022-0 No 7- 00:00: [...] No 7- 00:00: 00 &lt 2022-0 No 7-19 [...] Unknown 7-06 00:00: 00 &lt 2022-0 No 6 00:00: 00 Dose 2022-0 No Unknown 08-06 00:00: 00 &lt 2022-0 No 6 00:00: 00 Dose 2022-0 No Unknown 08-06 00:00: 00 &lt 2022-0 No 08-06 00:00: 00 Dose 2022-0 No Unknown 08-06 00:00: 00 &lt 2022-0 No 6 00:00: 00 Dose 2022-0 No Unknown 08-06 [...] No 6-21 00:00: 00 &lt 2022-0 No 6- 00:00: 00 &lt 2022-0 No 6- 00:00: 00 &lt 2022-0 No 6-21 00:00: [...] Zoloft 50 2022-0 No 1mg mg tablet 6-21 00:00: 00 [...] Zoloft 50 2022-0 No 1mg mg tablet 6-21 00:00: 00 [...] 25 6-14 mg tablet 00:00: 00 &lt 2-0 No 6-14 00:00: 00 ipratropium 2021-0 Yes 3mL Q.25D Take 3 [...] blister with device powder for inhalation albuterol 0 Yes 2{puff} Q6H Inhale 2 M ethodi [...] inhaler hours as needed for wheezing. ipratropium 2-0 Yes 3mL Q.25D Take 3 mL Methodi -albuteroL 6-[address] (DUO-NEB) 13:57: nebulizati Ho spita 0.5-2.5 05 on 4 l mg/3 mL (four) nebulizer times a day as needed for wheezing. fluticasone 2-0 Yes 1{puff} Q.5D Inhale 1 Methodi propionate [...] blister with device powder for inhalation albuterol 0 Yes 2{puff} Q6H Inhale 2 M ethodi [...] blister with device powder for inhalation albuterol 0 Yes 2{puff} Q6H Inhale 2 M ethodi (PROAIR 6-[address] HFA) 90 13:57: every 6 Hospita mcg/actuati 05 (six) l on inhaler hours as needed for wheezing. Lantus 0 No 10(3 Solostar 6-09 mL) U-100 00:00: Insulin 100 00 unit/mL (3 mL) subcutaneou s pen &lt 2021-0 No - 00:00: 00 &lt 2021-0 No - 00:00: 00 Lantus 2021-0 No 10(3 Solostar 6-09 mL) U-100 00:00: Insulin 100 00 unit/mL (3 mL) subcutaneou s pen &lt 2021-0 No -09 00:00: 00 &lt 2022-0 No 6-09 00:00: [...] 6-03 00:00: 00 Dose 2022-0 No Unknown 6- 00:00: 00 &lt 2022-0 No 6-03 00:00: [...] 2-0 No Unknown 5-31 00:00: 00 albuterol 2-0 No 3/3 mL sulfate 2.5 5-31 (0.083 mg/3 mL 00:00: %) (0.083 %) 00 solution for nebulizatio n ipratropium 2-0 No 3mg 0.5 5-31 base)/3 mg-albutero 00:00: mL l 3 mg (2.5 00 mg base)/3 mL nebulizatio n soln buspirone 2022-0 No mg 15 mg 5-26 [...] mcg/actuati 00:00: on aerosol 00 inhaler Trelegy 2022-0 No 1mcg Ellipta 100 5-02 mcg-62.5 00:00: mcg-25 mcg 00 powder for inhalation Dose 2021-0 No Unknown 5-02 00:00: 00 Dose 2-0 No Unknown 5-02 00:00: 00 Dose 2-0 No Unknown 5-02 00:00: 00 Dose 2-0 No Unknown 5-02 00:00: 00 Dose 2-0 No Unknown 5-02 00:00: 00 ProAir HFA 2021-0 No 2mcg/ac 90 5-02 tuation mcg/actuati 00:00: on aerosol 00 inhaler Trelegy 2021-0 No 1mcg Ellipta 100 5-02 mcg-62.5 00:00: mcg-25 mcg 00 powder for inhalation Dose 2021-0 No Unknown 5-02 00:00: 00 Dose 2-0 No Unknown 5-02 00:00: 00 Dose 2-0 No Unknown 5-02 00:00: 00 Dose 2021-0 No Unknown 5-02 00:00: 00 Dose 2021-0 No Unknown 5-02 00:00: 00 ProAir HFA 2021-0 No 2mcg/ac 90 5-02 tuation mcg/actuati 00:00: on aerosol 00 inhaler Trelegy 2021-0 No 1mcg Ellipta 100 5-02 mcg-62.5 00:00: mcg-25 mcg 00 powder for inhalation Dose 2021-0 No Unknown 5-02 00:00: 00 Dose 2-0 No Unknown 5-02 00:00: 00 Dose 2-0 No Unknown 5-02 00:00: 00 Dose 2-0 No Unknown 5-02 00:00: 00 Dose 2-0 No Unknown 5-02 00:00: 00 ProAir HFA 2-0 No 2mcg/ac 90 5-02 tuation mcg/actuati 00:00: on aerosol 00 inhaler Trelegy 2021-0 No 1mcg Ellipta 100 5-02 mcg-62.5 00:00: mcg-25 mcg 00 powder for inhalation Dose 2021-0 No Unknown 5-02 00:00: 00 Dose 2-0 No Unknown 5-02 00:00: 00 Dose 2-0 No Unknown 5-02 00:00: 00 Dose 2022-0 No Unknown 5-02 00:00: 00 Dose 2022-0 No Unknown 5-02 00:00: 00 Zoloft 50 2022-0 No 1mg [...] mg 4-28 tablet 00:00: 00 Zoloft 50 2-0 No 1mg mg tablet 4- 00:00: 00 Lamictal 2022-0 No 1mg 100 mg 4-28 tablet 00:00: 00 buspirone 2022-0 No 1mg 15 mg 4-28 tablet 00:00: 00 Zoloft 50 2-0 No 1mg mg tablet 4- 00:00: 00 [...] 2022-0 No Unknown 3-19 00:00: 00 clopidogrel 2022-0 No 1mg 75 mg 3-17 tablet 00:00: [...] mg base)/3 mL nebulizatio n soln clopidogrel 2022-0 No 1mg 75 mg 3-17 tablet 00:00: [...] 300 mg 3-14 capsule 00:00: 00 metformin 2022-0 No 1mg 1,000 [...] 75 mg 1-05 tablet 00:00: 00 Dose 2021-1 No Unknown 1-24 00:00: 00 Dose 2021-1 No Unknown 1-24 00:00: 00 Dose 1-1 No Unknown 1-24 00:00: 00 Dose 2021-1 No Unknown 1-24 00:00: 00 Dose 2021-1 No Unknown 1-17 00:00: 00 Dose 2021-1 No Unknown 1-17 00:00: 00 Dose 1-1 No Unknown 1-17 00:00: 00 Dose 2021-1 No Unknown 1-17 00:00: 00 Lamictal 1-1 No 1mg 100 mg 1-11 tablet 00:00: 00 Dose 1-1 No Unknown 1-11 00:00: 00 trazodone 1-1 No 15mg 100 mg 1-11 tablet 00:00: 00 buspirone 2021-1 No 1mg 15 mg 1-11 tablet 00:00: 00 Dose 1-1 No Unknown 1-11 00:00: 00 Lamictal 1-1 No 1mg 100 mg 1-11 tablet 00:00: 00 Dose 1-1 No Unknown 1-11 00:00: 00 trazodone 2021-1 [...] 2020- No Unknown 1-11 00:00: 00 trazodone 2020-02 No 15mg 100 mg 1-11 tablet 00:00: [...] 100 mg 0-08 tablet 00:00: 00 trazodone 2021-1 No 15mg 100 mg 0-08 tablet 00:00: 00 buspirone 2021-1 No 1mg 15 mg 0-08 tablet 00:00: 00 Prozac 20 2021-1 No 1mg mg capsule 0-08 00:00: 00 Dose 2021-0 No Unknown 9-20 00:00: 00 Dose 2021-0 No Unknown 9- 00:00: 00 Dose 2021-0 No Unknown 9- 00:00: 00 Dose 2021-0 No Unknown 9 00:00: 00 Dose 2021-0 No Unknown 10-28 00:00: 00 Dose 1-0 No Unknown 10-28 00:00: 00 Dose 1-0 No Unknown 9 00:00: 00 Dose 1-0 No Unknown 9 00:00: 00 Lamictal 2021-0 [...] 100 mg 8- tablet 00:00: 00 buspirone 2021-0 No 1mg 15 mg 8-02 tablet 00:00: 00 Prozac 20 1-0 No 1mg mg capsule 09-09 00:00: 00 Lamictal 1-0 No 1mg 100 mg 8- tablet 00:00: 00 trazodone 1-0 No 15mg 100 mg 8- tablet 00:00: 00 buspirone 1-0 No 1mg 15 mg 8- tablet 00:00: 00 Prozac 20 1-0 No 1mg mg capsule 09-09 00:00: 00 Dose 2021-0 No Unknown 7- 00:00: 00 Dose 1-0 No Unknown 7- 00:00: 00 Dose 1-0 No Unknown 7- 00:00: 00 Dose 1-0 No Unknown 7-27 00:00: 00 Flovent HFA 1-0 No 1mcg/ac [...] mcg/actuati 00:00: on aerosol 00 inhaler Dose 2021-0 No Unknown 7-08 00:00: 00 Dose 2021-0 [...] mcg-25 mcg 00 powder for inhalation Lamictal 1-0 No 1mg 100 mg 5-25 tablet 00:00: [...] 1-0 No Unknown 4-07 00:00: 00 Anoro 2021-0 No 1mcg/ac Ellipta 4-07 tuation 62.5 mcg-25 00:00: mcg/actuati 00 on powder for inhalation Dose 1-0 No Unknown 4-07 00:00: 00 Dose 2021-0 No Unknown 4-07 00:00: 00 Dose 2021-0 No Unknown 4-07 00:00: 00 Dose 2020-0 No Unknown 4-07 00:00: 00 Dose 2020-0 No Unknown 4-07 00:00: 00 Dose 2020-0 No Unknown 4-07 00:00: 00 Dose 2020-0 No Unknown 4-07 00:00: 00 Anoro 2020-0 No 1mcg/ac Ellipta 4-07 tuation 62.5 mcg-25 00:00: mcg/actuati 00 on powder for inhalation Dose 2020-0 No Unknown 4-07 00:00: 00 Dose 2020-0 No Unknown 4-07 00:00: 00 Dose 2020-0 No Unknown 4-07 00:00: 00 Dose 2020-0 No Unknown 4-07 00:00: 00 Dose 2020-0 No Unknown 4-07 00:00: 00 Dose 2020-0 No Unknown 4-07 00:00: 00 Dose 2020-0 No Unknown 4-07 00:00: 00 Anoro 2020-0 No 1mcg/ac Ellipta 4-07 tuation 62.5 mcg-25 00:00: mcg/actuati 00 on powder for inhalation Dose 2020-0 No Unknown 4-07 00:00: 00 Dose 2020-0 No Unknown 4-07 00:00: 00 Dose 2020-0 No Unknown 4-07 00:00: 00 Dose 2020-0 No Unknown 4-07 00:00: 00 Dose 2020-0 No Unknown 4-07 00:00: 00 Dose 2020-0 No Unknown 4-07 00:00: 00 Dose 2020-0 No Unknown 4-07 00:00: 00 Anoro 2020-0 No 1mcg/ac Ellipta 4-07 tuation 62.5 mcg-25 00:00: mcg/actuati 00 on powder for inhalation Dose 2020-0 No Unknown 4-07 00:00: 00 Dose 2020-0 No Unknown 4-07 00:00: 00 Dose 2020-0 No Unknown 4-07 00:00: 00 Dose 2020-0 No Unknown 4-07 00:00: 00 Dose 2020-0 No Unknown 4-07 00:00: 00 buspirone 2020-0 No 1mg 15 mg 3-30 tablet 00:00: [...] mcg/actuati 00 on powder for inhalation prednisone 2019-1 No mg 5 mg tablet 1-24 00:00: [...] by ity of tablet 20:14: mouth 2 [place] [address] ([facility]) Medical times [place] daily with meals. traZODone 2019-02 Yes 150mg Take 150 Uni vers 100 mg 1-21 mg by ity of tablet 20:14: mouth at [place] [address] bedtime. Medical Branch busPIRone 2019-02 Yes 7.5mg Take 7.5 Uni vers 7.5 mg 1-21 mg by ity of tablet 20:14: mouth 2 [place] [address] ([facility]) Medical times Branch daily. FLUoxetine 2019-02 Yes 20mg Take 20 mg U nivers 20 mg 1-21 by mouth ity of capsule 20:14: daily. [place] [address] Medical Branch lamoTRIgine 2019-02 Yes 100mg Take 100 U nivers 100 mg 1-21 mg by ity of tablet 20:14: mouth 2 [place] [address] ([facility]) Medical times [place] daily. fluticasone 2019-02 Yes 1{puff} Inhale 1 Univers propionate 1-21 Puff 2 ity of 44 20:14: (two) [facility]/actuati times Medical on inhaler daily. Branch albuterol 2019-02 Yes 2{puff} Inhale 2 U nivers (PROVENTIL 1-21 Puffs ity of HFA) 90 20:14: every 6 [place] mcg/actuati (six) Medical on inhaler hours as Branc h needed for Wheezing or Shortness of Breath. atorvastati 2019-02 Yes 80mg Take 80 mg Univers n (LIPITOR) 1-21 by mouth ity of 80 mg 20:14: at [facility] 09 bedtime. Medical Branch mupirocin 2 2019-02 Yes Apply to Un destiny % ointment 1-21 area(s) 2 ity of 20:14: (two) [place] times Medical daily. Branch metoprolol 2019-02 Yes [...] by ity of tablet 20:14: mouth at [place] [address] bedtime. Medical Branch busPIRone 2019-02 Yes 7.5mg [...] by ity of tablet 20:14: mouth 2 [place] (two) Medical times Branch daily. fluticasone 2019-02 Yes 1{puff} Inhale 1 Univers propionate 1-21 Puff 2 ity of 44 20:14: (two) [place] mcg/actuati 09 times Medical on inhaler daily. [...] by ity of tablet 20:14: mouth at [place] bedtime. Medical Branch busPIRone 2019-02 Yes 7.5mg [...] Until Discontinu ed, Routine clopidogreL 2019-02 Yes [id number] 75mg Take 1 Univers 75 mg 1-21 tablet by ity of tablet 00:00: mouth [place] 00 daily. Medical Branch aspirin 81 2019-02 Yes [id number] 81mg Take 1 Univers mg chewable 1-21 tablet by ity of tablet 00:00: mouth [place] 00 daily. Medical Branch predniSONE 2019-02 Yes [id number] 40mg Take 2 U nivers 20 mg 1-21 tablets by ity of tablet 00:00: mouth [place] 00 daily. Medical Branch clopidogreL 2019-02 Yes [id number] 75mg Take 1 Univers 75 mg 1-21 tablet by ity of tablet 00:00: mouth [place] 00 daily. Medical Branch aspirin 81 2019-02 Yes [id number] 81mg Take 1 Univers mg chewable 1-21 tablet by ity of tablet 00:00: mouth [place] 00 daily. Medical Branch predniSONE 2019-02 Yes [id number] 40mg Take 2 U nivers 20 mg 1-21 tablets by ity of tablet 00:00: mouth [place] 00 daily. Medical Branch aspirin 81 2019-02 Yes [id number] 81mg Take 1 Univers mg chewable 1-21 tablet by ity of tablet 00:00: mouth [place] 00 daily. Medical Branch clopidogreL 2019-02 2020- No 75mg Take 75 mg Univers 75 mg -20 12-28 by mouth ity of tablet 22:51: 00:00 daily. [place] 35 :00 Medical Branch clopidogreL 2019-02 2020- No Oral, Univ ers (PLAVIX) -12-28 TITRATE - ity o f tablet 21:25: 21:25 FOR [place] 13 :13 PROCEDURE Medical USE, 1 Branch dose, Starting Wed12/29/19 at 1525, Until Wed12/29/19 at 1525, Routine ticagrelor 2019-02- No Oral, Unive rs (BRILINTA) 02-27 TITRATE - ity of tablet 20:57: 20:57 FOR [place] 39 :39 PROCEDURE Medical USE, 1 Branch [...] ity of (XYLOCAINE) 20:37: 20:37 TITRATE - [place] injection 00 :00 FOR Medical PROCEDURE Branch USE, 1 dose, Starting Wed12/29/19 at 1437, Until Wed12/29/19 at 1437, Routine FENTanyl PF 2019-02- No Slow IV Un destiny (SUBLIMAZE 02-27 Push, ity of (PF)) 20:33: 20:33 TITRATE - [place] injection 00 :00 FOR Medical PROCEDURE Branch [...] 00 First dose Medical (NOVOLOG) + on [facility] Branch Fsbg 12/28/19 Testing at 2100, Until Discontinu ed, Routine lamoTRIgine 2019-02 Yes 100mg 100 mg, Un destiny (LAMICTAL) 1-20 Oral, BID, ity of tablet 100 02:00: First dose [place] mg 00 on [facility] 12/28/19 Branch at 2000, Until Discontinu ed, Routine predniSONE 2019-02 Yes [id number] 40mg Take 2 U nivers 20 mg 1-20 tablets by ity of tablet 00:00: mouth [place] 00 daily. Medical Branch clopidogreL 2019-02 Yes [id number] 75mg Take 1 Univers 75 mg 1-20 tablet by ity of tablet 00:00: mouth [place] 00 daily. Medical Branch predniSONE 2019-02 2020- No [id number] 40mg Take 2 Univers 20 mg 1-20 11-20 tablets by ity of tablet 00:00: 00:00 mouth [place] 00 :00 daily. Medical Branch predniSONE 2019-02 2020- No [id number] 40mg Take 2 Univers 20 mg 1-20 11-19 tablets by ity of tablet 00:00: 00:00 mouth [place] 00 :00 daily for Medical 4 days. Branch atorvastati 2019-02 2020- No 40mg 40 mg, Uni vers n (LIPITOR) -27 12-20 Oral, QPM, i ty of tablet 40 23:00: 02:01 First dose [place] mg 00 :46 on [facility] 12/28/19 Branch at 1700, Until Discontinu ed, Routine metoprolol 2019-02 2020- No 25mg Take 25 mg Univers tartrate 25 02-26-19 by mouth 2 i ty of mg tablet 21:56: 00:00 (two) [place] 56 :00 times Medical daily. Branch sulfur 2019-02 2020- No 5mL 5 mL, Univers hexafluorid 02-26 Intravenou i ty of e microsphr 18:45: 17:20 s, ONCE, 1 [place] (LUMASON) 00 :00 dose, [facility] Medic al injection 5 12/28/19 Bran ch mL at 1245, Routine
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 : JOANNEIsidroDEJAN Saline 2019-02 2020- No 6mL 6 mL, Univers Bubble 02-26 Injection, ity of Study 17:33: 22:27 SEE-INSTRU [place] 16 :16 CTIONS, 2 Medical doses, Branch Starting [facility] 12/28/19 at 1133, Until Wed12/29/19 at 1627, Routine Saline 2019-02 Yes 6mL 6 mL, Univers Bubble 02-26 Injection, ity of Study 17:33: SEE-INSTRU [place] 14 CTIONS, 2 Medical doses, Branch Starting [facility] 12/28/19 at 1133, Until Discontinu ed, Routine clopidogreL 2019-02 Yes 75mg 75 mg, Univ ers (PLAVIX) 02-26 Oral, ity of tablet 75 15:00: DAILY, [place] mg 00 First dose Medical on [facility] Branch 12/28/19 at 0900, Until Discontinu ed, Routine
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 : TROY MONAE aspirin 2019-02 Yes 81mg 81 mg, Univers chewable 02-26 Oral, ity of tablet 81 15:00: DAILY, [place] mg 00 First dose Medical on [facility] Branch 12/28/19 at 0900, Until Discontinu ed, Routine predniSONE 2019-02 2020- No 40mg 40 mg, Univ ers (DELTASONE) 02-26 Oral, ity of tablet 40 15:00: 14:59 DAILY, 5 [place] as mg 00 :00 doses, Medical First dose Branch on [facility] 12/28/19 at 0900, Last dose on Wed01/01/20 at 0900, Routine aspirin 2019-02 2020- No 324mg 324 mg, Unive rs chewable 02-26 Oral, ity of tablet 324 15:00: 08:41 DAILY, [place] mg 00 :12 First dose Medical on [facility] Branch 12/28/19 at 0900, Until Discontinu ed, Routine metoprolol 2020-1 Yes 12.5mg 12.5 mg, U nivers tartrate [...] Rang e, Dosing and Testing: &nbs p;FOR [facility], AND [facility] ONLY &nbs p; - aPTT < 35: [...] INITIAL BOLUS OR INITIAL INFUSION RATE.
heparin 2020-1 2020- No 60U/kg 3,534 Univer s 1000 1-19 11-19 Units (60 ity of unit/mL 12:00: 12:33 Units/kg [place] injection 00 :00 ?58.9 kg), Medi piedad Soln 3,534 IV Push, Branc h Units ONCE, 1 dose, [place] 12/28/19 at 0600, Routine albuterol 2019-02 Yes 2.5mg 2.5 mg, Univ ers (PROVENTIL) 02-26 Inhalation it y of 2.5 mg /3 10:00: , Q4H, [place] mL (0.083 00 First dose Medi piedad %) on [facility] Branch nebulizer 12/28/19 solution at 0400, 2.5 mg Until Discontinu ed, Routine ipratropium 2019-02 Yes .5mg 0.5 mg, Uni vers (ATROVENT) 02-26 Inhalation ity of 0.02 % 10:00: , Q4H, [place] nebulizer 00 First dose Medi piedad solution [...] injection 06 Starting Medica l 25 mL [facility] Branch 12/28/19 at 0237, Until Discontinu ed, [...] of 350 05:00: 05:00 s, ONCE, 1 [place] BULK-100 00 :00 dose, Wed Medica l mL) 12/27/19 Branch injection at 2300, 100 mL Routine methylPREDN 2019-02- No 40mg 40 mg, IV Univers ISolone sod 02-26 Piggyback, i ty of succ 02:45: 01:47 ONCE, 1 [place] (SOLU-MEDRO 00 :00 dose, Wed Med ical L (PF)) 12/27/19 Branch injection at 2045, 40 mg STAT metoprolol 2019-02 2020- No [id number] 12.5mg Take 0.5 Univers tartrate 25 02-26 tablets by i ty of mg tablet 00:00: 00:00 mouth 2 [place] 00 :00 (two) Medical times Branch daily. albuterol-i 2019-02 2020- No [id number] 1{puff} Inhale 1 Univers pratropium 02-26 Puff 4 ity of 20-100 00:00: 00:00 (four) [place] mcg/actuati 00 :00 times Medical on inhaler daily. Branch metoprolol 2019-02 2020- No [id number] 12.5mg Take 0.5 Univers tartrate 25 02-26 tablets by i ty of mg tablet 00:00: 00:00 mouth 2 [place] 00 :00 (two) Medical times Branch daily. metoprolol 2019-02 2020- No [id number] 12.5mg Take 0.5 Univers tartrate 25 02-26 tablets by i ty of mg tablet 00:00: 00:00 mouth 2 [place] 00 :00 (two) Medical times Branch daily. Flovent HFA 2019-1 No 2mcg/ac 44 1-18 [...] 500 mg 1-18 tablet 00:00: 00 metoprolol 2019- No 1mg tartrate 25 1-18 mg tablet 00:00: 00 metoprolol 2019- No 1mg tartrate 25 1-18 mg tablet 00:00: 00 atorvastati 2019- No 1mg n 80 mg 1-18 tablet 00:00: 00 Lamictal 2019- No 1mg 100 [...] 1 Nabil as mg 00 :00 dose, [facility] 07/27/19 at Branch 1730, Routine buspirone [...] prednisone 2020-0 No 1mg 5 mg tablet -16 00:00: 00 ipratropium 2020-0 No 3mg 0.5 [...] 75 mg 2-19 tablet 00:00: 00 metoprolol 2019- No 1mg tartrate 25 2-19 mg tablet 00:00: 00 clopidogrel 2019- No 1mg 75 mg 2-19 tablet 00:00: 00 metoprolol 2019- No 1mg tartrate 25 2-19 mg tablet 00:00: 00 buspirone 2019- No 1mg 7.5 mg 2-17 tablet 00:00: [...] 100 mg 0-01 tablet 00:00: 00 buspirone 2019- No 1mg 7.5 mg 0-01 tablet 00:00: [...] 100 mg 0-01 tablet 00:00: 00 Lamictal 2018- No 1mg 100 mg 0-01 tablet 00:00: 00 buspirone 2018- No 1mg 7.5 mg 0-01 tablet 00:00: 00 trazodone 2018- No 1mg 100 mg 0-01 tablet 00:00: 00 buspirone 2018-1 No 1mg 7.5 mg 0-01 tablet 00:00: 00 trazodone 2018- No 15mg 100 mg 0-01 tablet 00:00: 00 Prozac 2018- No 1mg mg capsule 0-01 00:00: 00 trazodone 2018- No 1mg 100 mg 0-01 tablet 00:00: 00 trazodone 2018-1 No 15mg 100 mg 0-01 tablet 00:00: 00 Prozac 10 2018- No 1mg mg capsule 0-01 00:00: 00 aspirin 81 2019-0 No 1mg mg 8-13 tablet,gena 00:00: yed release 00 metformin 2019-0 No 1mg ER 500 mg 8-13 tablet,exte 00:00: nded 00 release 24 hr metoprolol 2018-0 No 1mg tartrate 25 8-13 mg tablet [...] buspirone 5 2019-0 No 1mg mg tablet 6 00:00: 00 Lamictal 2019-0 No 1mg 100 mg 6-11 tablet 00:00: 00 trazodone 2019-0 No 1mg 100 mg 6-11 tablet 00:00: 00 Prozac 10 2019-0 No 1mg mg capsule 6-11 00:00: 00 triamcinolo 2019-0 No 1% ne [...] Prozac 10 2019-0 No 1mg mg capsule 409 00:00: 00 Lamictal 2019-0 No 1mg 100 mg 4-09 tablet 00:00: 00 buspirone 5 2019-0 No 1mg mg tablet 409 00:00: 00 trazodone 2019-0 No 1mg 100 mg 4-09 tablet 00:00: 00 Prozac 10 2019-0 No 1mg mg capsule 409 00:00: 00 Lamictal 2019-0 No 1mg 100 [...] mg 1-27 tablet 00:00: 00 aspirin 81 2018- No 1mg mg 1-27 tablet,gena 00:00: yed release 00 metoprolol 2017-1 No 1mg tartrate 25 1-27 mg tablet 00:00: 00 fluticasone 2018-1 No 2mcg/ac 50 1-27 tuation mcg/actuati 00:00: on nasal 00 spray,suspe nsion loratadine 2018- No 1mg 10 mg 1-27 tablet 00:00: 00 aspirin 81 2018- No 1mg mg 1-27 tablet,gena 00:00: yed release 00 metoprolol 2018-1 No 1mg tartrate 25 1-27 mg tablet 00:00: 00 fluticasone 2018- No 2mcg/ac 50 1-27 tuation mcg/actuati 00:00: on nasal 00 spray,suspe nsion loratadine 2017-02 No 1mg 10 mg 1-27 tablet 00:00: 00 aspirin 81 2017-02 No 1mg mg 1-27 tablet,gena 00:00: yed release 00 metoprolol 2017-02 No 1mg tartrate 25 1-27 mg tablet 00:00: 00 fluticasone 2017-02 No 2mcg/ac 50 1-27 tuation mcg/actuati 00:00: [...] 00:00: mcg/dose 00 powder for inhalation Proventil 0 No 1mcg/ac HFA 90 8-21 tuation mcg/actuati 00:00: on aerosol 00 inhaler Proventil 0 No 1mcg/ac HFA 90 8-21 tuation mcg/actuati [...] No known No [facility] Vital Signs Vital Name Observation Time Observation Value Comments Source Systolic blood 2019-12-30 135 mm[Hg] [facility] pressure 17:24:00 [facility] Diastolic blood 2019-12-30 72 mm[Hg] [facility] o f pressure 17:24:00 [facility] Heart rate 2019-12-30 78 /min [facility] 17:24:00 [facility] Body temperature 2019-12-30 35.61 [facility] 17:24:00 [facility] Respiratory rate 2019-12-30 18 /min University 17:24:00 [facility] Oxygen saturation 2019-12-30 91 /min [facility] in Arterial blood 17:24:00 [facility] by Pulse oximetry [place] Body weight 2019-12-30 57.924 kg pt's actual wt [facility] 10:03:00 on regular [facility] scale Branch BMI 2019-12-30 20.61 kg/m2 [facility] 10:03:00 [facility] Body height 2019-12-29 167.6 cm [facility] 20:18:00 [facility] Systolic blood 2019-12-30 135 mm[Hg] University of pressure 17:24:00 [facility] Diastolic blood 2019-12-30 72 mm[Hg] [facility] pressure 17:24:00 [facility] Heart rate 2019-12-30 78 /min [facility] of 17:24:00 [facility] Body temperature 2019-12-30 35.61 [facility] of 17:24:00 [facility] Respiratory rate 2019-12-30 18 /min [facility] of 17:24:00 [facility] Oxygen saturation 2019-12-30 91 /min [facility] in Arterial blood 17:24:00 [facility] Pulse [facility]xim[facility] Body weight 2019-12-30 57.924 kg pt's actual wt [facility] 10:03:00 on regular [facility] BMI 2019-12-30 20.61 kg/m2 [facility] of 10:03:00 [facility] Body height 2019-12-29 167.6 cm [facility] of 20:18:00 [facility] Systolic blood 2019-07-27 120 mm[Hg] [facility] pressure 21:35:00 [facility] Diastolic blood 2019-07-27 79 mm[Hg] [facility] pressure 21:35:00 [facility] Heart rate 2019-07-27 93 /min [facility] of 21:35:00 [facility] Respiratory rate 2019-07-27 12 /min [facility] of 21:35:00 [facility] Oxygen saturation 2019-07-27 95 /min [facility] of in Arterial blood 21:35:00 [facility] Pulse oximetry [facility] Body temperature 2019-07-27 37.5 [facility] of 21:15:00 [facility] Body height 2019-07-27 167.6 cm [facility] of 21:15:00 [facility] Body weight 2019-07-27 55.792 kg [facility] of 21:15:00 [facility] BMI 2019-07-27 19.85 kg/m2 [facility] of 21:15:00 [facility] Systolic blood 2019-07-27 120 mm[Hg] [facility] pressure 21:35:00 [facility] Diastolic blood 2019-07-27 79 mm[Hg] [facility] pressure 21:35:00 [facility] Heart rate 2019-07-27 93 /min [facility] of 21:35:00 [facility] Respiratory rate 2019-07-27 12 /min [facility] of 21:35:00 [facility] Oxygen saturation 2019-07-27 95 /min [facility] in Arterial blood 21:35:00 [facility] Pulse oximetry [facility] Body temperature 2019-07-27 37.5 [facility] of 21:15:00 [facility] Body height 2019-07-27 167.6 cm University 21:15:00 [facility] Body weight 2019-07-27 55.792 kg 21:15:00 [facility] BMI 2019-07-27 19.85 kg/m2 University 21:15:00 [facility] BP Systolic 2021-12-05 137 mm[Hg] 13:31:00 BP [...] 2021-07-17 15:08:00 Heart rate 2021-07-16 93 /min [facility] 17:12:00 [facility] Systolic blood 2021-07-16 156 mm[Hg] [facility] pressure 16:50:46 Hospital Diastolic blood 2021-07-16 83 mm[Hg] [facility] pressure 16:50:46 Hospital Body temperature 2021-07-16 36.72 Annemarie [facility] 16:50:46 Hospital Respiratory rate 2021-07-16 20 /min [facility] 16:50:46 Hospital Oxygen saturation 2021-07-16 100 /min [facility] in Arterial blood 16:50:46 Hospital by Pulse [...] Clinician Source Performed POC GLUCOSE 2021-07-16 16:04:00 [facility] POC GLUCOSE 2021-07-16 13:06:00 [facility] HEMOGLOBIN A1C 2021-07-16 10:38:00 Dem[facility]ri [facility] POC GLUCOSE 2021-07-16 02:40:00 Dem[facility] POC GLUCOSE 2021-07-15 21:28:00 [facility] POC GLUCOSE 2021-07-15 18:04:00 Demetri [facility] LACTIC ACID LEVEL, 2021-07-15 14:19:00 Zina [facility] SEPSIS - NOW AND REPEAT 2X EVERY 3 HOURS POC GLUCOSE 2021-07-15 14:05:00 Demetri [facility] LACTIC ACID LEVEL, 2021-07-15 11:47:00 Zina [facility] SEPSIS - NOW AND REPEAT 2X EVERY 3 HOURS ECG 12-LEAD 2021-07-15 09:34:19 Zina [facility] XR CHEST 1 VW PORTABLE 2021-07-15 08:37:27 Colette Izaguirre [facility] ZZCOVID-19 ANTI-SPIKE 2021-07-15 08:35:00 Colette Izaguirre [facility] IGG ANTIBODY TITER ZZCOVID-19 SEROLOGY 2021-07-15 08:35:[address] [facility] PATIENT SURVEILLANCE LACTIC ACID LEVEL, 2021-07-15 08:35:00 Zina [facility] SEPSIS - NOW AND REPEAT 2X EVERY 3 HOURS CBC WITH PLATELET AND 2021-07-15 08:35:00 Colette Izaguirre [facility] DIFFERENTIAL COMPREHENSIVE METABOLIC 2021-07-15 08:35:00 [facility] T 2021-07-15 08:35:00 [facility] ESTIMATED GFR 2021-07-15 08:35:00 [facility] EXTERNAL PROVIDER 2020-01-17 06:01:00 Doctor Unassigned, No [facility] RECORDS Name Medical Branch POCT GLUCOSE (AUTOMATED) 2019-12-30 15:25:00 Troy Monae [facility] MAGNESIUM 2019-12-30 10:10[facility]00 [facility] 2019-12-30 10:10[facility]00 [facility] K, CL, CO2, Medical Branch GLUCOSE, BUN, CREATININE, CA) CBC WITH DIFF 2019-12-30 10:10[facility]00 [facility]) 2019-12-30 01:50:00 Troy Monae [facility] POCT GLUCOSE (AUTOMATED) 2019-12-29 23:32:00 Troy Monae [facility] HB ECG ROUTINE & RHYTHM 2019-12-29 14:11:36 Mariya [facility] STRIP Medical Branch POCT GLUCOSE (AUTOMATED) 2019-12-29 14:00:00 Troy Monae [facility] MAGNESIUM 2019-12-29 10:58:00 Mariya [facility] BASIC METABOLIC PANEL 2019-12-29 10:58:00 Efrain Meraz [facility] (NA, K, CL, CO2, Medical Branch GLUCOSE, BUN, CREATININE, CA) ACTIVATED PARTIAL 2019-12-29 10:58:00 Mariya [facility] Branch EXTERNAL PROVIDER 2019-12-29 06:01:00 Doctor Unassigned, No [facility] RECORDS Name Medical Branch POCT GLUCOSE (AUTOMATED) 2019-12-29 04:16:00 Troy Monae [facility] ACTIVATED PARTIAL 2019-12-29 00:06:00 Mariya [facility] TROPONIN I 2019-12-28 19:46:00 Jesus Paz [facility] LIPID PANEL 2019-12-28 19:46:00 Mariya [facility] ([id number])(TOTAL Medical Branch CHOLESTEROL, TRIGLYCERIDES, HDL) ECHO ROUTINE W/DOPPLER 2019-12-28 16:44:30 Mariya [facility] ROUTINE & RHYTHM 2019-12-28 13:42:07 Mariya [facility] PROTHROMBIN TIME / INR 2019-12-28 12:24:00 Mariya [facility] ACTIVATED PARTIAL 2019-12-28 12:24:00 Mariya [facility] TROPONIN I 2019-12-28 10:08:00 Mariya [facility] CT CHEST PULMONARY 2019-12-28 04:44:55 Minna Mike [facility] ANGIOGRAM Medical Branch XR CHEST 1 VW 2019-12-28 02:07:34 Minna Mike [facility] COVID-19 (ID NOW RAPID 2019-12-28 01:50:00 Minna Mike [facility] TESTING) Medical Branch HB ECG ROUTINE & RHYTHM 2019-12-28 01:49:31 Minna Mike [facility] TROPONIN I 2019-12-28 01:49:00 Minna Mike [facility] THYROID STIMULATING 2019-12-28 01:49:00 Efrain Meraz [facility] HORMONE [facility] BASIC METABOLIC PANEL 2019-12-28 01:49:00 Minna Mike [facility] (NA, K, CL, CO2, Medical Branch GLUCOSE, BUN, CREATININE, CA) COMP. METABOLIC PANEL 2019-12-28 01:49:00 Minna Mike [facility] ([id number]) Medical Branch CBC WITH DIFF 2019-12-28 01:49:00 Minna Mike [facility] GLYCOSYLATED HEMOGLOBIN 2019-12-28 01:49:00 Mariya [facility] (A1C) Medical Branch N-TERMINAL PRO-BNP 2019-12-28 01:49:00 Efrain [facility] XR CHEST 1 VW 2019-07-27 22:14:30 [facility] COVID-19 (ID NOW RAPID 2019-07-27 21:43:00 Soila Villar Un [facility] TESTING) Medical Branch TROPONIN I 2019-07-27 21:38:00 Soila [facility] HEPATIC FUNCTION PANEL 2019-07-27 21:38:00 [id number] (ALB,T.PRO,BILI [facility] T,BU/BC,ALT,AST,ALK PHOS) BASIC METABOLIC PANEL 2019-07-27 21:38:00 Soila Villar [facility] (NA, K, CL, CO2, Medical Branch GLUCOSE, BUN, CREATININE, CA) CBC WITH DIFFERENTIAL 2019-07-27 21:38:00 Soila Villar [facility] PROTHROMBIN TIME / INR 2019-07-27 21:38:00 [facility]NP 2019-07-27 21:38:00 Soila Villar [facility] EKG-12 LEAD 2019-07-27 21:21:22 Soila [facility] NOTICE OF PRIVACY 2019-07-27 20:58:21 Doctor Unassigned, No [facility] PRACTICES Name [facility] Plan of Care Planned Activity Planned Date Details Comments Source Future Scheduled 2022-05-27 COVID-19 VACCINE (#1) [facility] Test 11:13:43 [code = COVID-19 VACCINE (#1)] Future Scheduled 2022-05-27 65+ PNEUMOCOCCAL [facility] Test 11:13:43 VACCINE (1 - PCV) [code = 65+ PNEUMOCOCCAL VACCINE (1 - PCV)] Future Scheduled 2022-05-27 Hepatitis C screening [facility] Test 11:13:43 (procedure) [code = [id number]] Future Scheduled 2022-05-27 BREAST CANCER [facility] Test 11:13:43 SCREENING [code = BREAST CANCER SCREENING] Future Scheduled 2022-05-27 COLONOSCOPY SCREENING Me [facility] Test 11:13:43 [code = COLONOSCOPY SCREENING] Future Scheduled 2022-05-27 SHINGLES VACCINES (1 Met [facility] Test 11:13:43 of 2) [code = SHINGLES VACCINES (1 of 2)] Future Scheduled 2022-05-27 INFLUENZA VACCINE [facility] Test 11:13:43 [code = INFLUENZA VACCINE] Future Scheduled 2022-05-27 COVID-19 VACCINE (#1) [facility] Test 11:13:43 [code = COVID-19 VACCINE (#1)] Future Scheduled 2022-05-27 65+ [facility]AL [facility] 11:13:43 VACCINE (1 - PCV) [code = 65+ PNEUMOCOCCAL VACCINE (1 - PCV)] Future Scheduled 2022-05-27 Hepatitis C screening [facility] Test 11:13:43 (procedure) [code = [id number]] Future Scheduled 2022-05-27 BREAST CANCER [facility] Test 11:13:43 SCREENING [code = BREAST CANCER SCREENING] Future Scheduled 2022-05-27 COLONOSCOPY SCREENING [facility] Test 11:13:43 [code = COLONOSCOPY SCREENING] Future Scheduled 2022-05-27 SHINGLES VACCINES (1 Met [facility] Test 11:13:43 of 2) [code = SHINGLES VACCINES (1 of 2)] Future Scheduled 2022-05-27 INFLUENZA VACCINE Method [facility] Test 11:13:43 [code = INFLUENZA VACCINE] Future Scheduled 2022-01-20 COVID-19 VACCINE (#1) [facility] Test 11:08:40 [code = COVID-19 VACCINE (#1)] Future Scheduled 2022-01-20 65+ [facility]OCCAL [facility] Test 11:08:40 VACCINE (1 - PCV) [code = 65+ PNEUMOCOCCAL VACCINE (1 - PCV)] Future Scheduled 2022-01-20 Hepatitis C screening [facility] Test 11:08:40 (procedure) [code = [id number]] Future Scheduled 2022-01-20 [facility]08[facility]40 SCREENING [code = BREAST CANCER SCREENING] Future Scheduled 2022-01-20 COLONOSCOPY SCREENING [facility] Test 11:08:40 [code = COLONOSCOPY SCREENING] Future Scheduled 2022-01-20 SHINGLES VACCINES (1 Met [facility] Test 11:08:40 of 2) [code = SHINGLES VACCINES (1 of 2)] Future Scheduled 2022-01-20 INFLUENZA VACCINE [facility] Test 11:08:40 [code = INFLUENZA VACCINE] Future Scheduled 2022-01-20 COVID-19 VACCINE (#1) [facility] Test 11:08:40 [code = COVID-19 VACCINE (#1)] Future Scheduled 2022-01-20 65+ [facility]:08:40 VACCINE (1 - PCV) [code = 65+ PNEUMOCOCCAL VACCINE (1 - PCV)] Future Scheduled 2022-01-20 Hepatitis C screening [facility] Test 11:08:40 (procedure) [code = [id number]] Future Scheduled 2022-01-20 BREAST CANCER [facility] Test 11:08:40 SCREENING [code = BREAST CANCER SCREENING] Future Scheduled 2022-01-20 COLONOSCOPY SCREENING [facility] Test 11:08:40 [code = COLONOSCOPY SCREENING] Future Scheduled 2022-01-20 SHINGLES VACCINES (1 Met [facility] Test 11:08:40 of 2) [code = SHINGLES VACCINES (1 of 2)] Future Scheduled 2022-01-20 INFLUENZA VACCINE [facility] Test 11:08:40 [code = INFLUENZA VACCINE] Future Scheduled 2022-01-20 COVID-19 VACCINE (#1) [facility] Test 11:08:40 [code = COVID-19 VACCINE (#1)] Future Scheduled 2022-01-20 65+ [facility] VACCINE (1 - PCV) [code = 65+ PNEUMOCOCCAL VACCINE (1 - PCV)] Future Scheduled 2022-01-20 Hepatitis C screening [facility] Test 11:08:40 (procedure) [code = [id number]] Future Scheduled 2022-01-20 BREAST CANCER [facility] Test 11:08:40 SCREENING [code = BREAST CANCER SCREENING] Future Scheduled 2022-01-20 COLONOSCOPY SCREENING [facility] Test 11:08:40 [code = COLONOSCOPY SCREENING] Future Scheduled 2022-01-20 SHINGLES VACCINES (1 Met [facility] Test 11:08:40 of 2) [code = SHINGLES VACCINES (1 of 2)] Future Scheduled 2022-01-20 INFLUENZA VACCINE Method [facility] Test 11:08:40 [code = INFLUENZA VACCINE] Future Scheduled 2021-12-09 HEPATITIS B VACCINES Met [facility] Test 11:50:42 (1 of 3 - 3-dose series) [code = HEPATITIS B VACCINES (1 of 3 - 3-dose series)] Future Scheduled 2021-12-09 COVID-19 VACCINE (#1) [facility] Test 11:50:42 [code = COVID-19 VACCINE (#1)] Future Scheduled 2021-12-09 65+ PNEUMOCOCCAL [facility] Test 11:50:42 VACCINE (1 - PCV) [code = 65+ PNEUMOCOCCAL VACCINE (1 - PCV)] Future Scheduled 2021-12-09 Hepatitis C screening [facility] Test 11:50:42 (procedure) [code = [id number]] Future Scheduled 2021-12-09 Screening for [facility] Test 11:50:42 malignant neoplasm of cervix (procedure) [code = 594956783] Future Scheduled 2021-12-09 BREAST CANCER [facility] Test 11:50:42 SCREENING [code = BREAST CANCER SCREENING] Future Scheduled 2021-12-09 COLONOSCOPY SCREENING [facility] Test 11:50:42 [code = COLONOSCOPY SCREENING] Future Scheduled 2021-12-09 SHINGLES VACCINES (1 Met [facility] Test 11:50:42 of 2) [code = SHINGLES VACCINES (1 of 2)] Future Scheduled 2021-12-09 INFLUENZA VACCINE Method [facility] Test 11:50:42 [code = INFLUENZA VACCINE] Future Scheduled 2021-10-11 HEPATITIS B VACCINES Met [facility] Test 10:23:54 (1 of 3 - 3-dose series) [code = HEPATITIS B VACCINES (1 of 3 - 3-dose series)] Future Scheduled 2021-10-11 COVID-19 VACCINE (#1) [facility] Test 10:23:54 [code = COVID-19 VACCINE (#1)] Future Scheduled 2021-10-11 65+ PNEUMOCOCCAL [facility] Test 10:23:54 VACCINE (1 - PCV) [code = 65+ PNEUMOCOCCAL VACCINE (1 - PCV)] Future Scheduled 2021-10-11 Hepatitis C screening [facility] Test 10:23:54 (procedure) [code = 245275827] Future Scheduled 2021-10-11 Screening for [facility] Test 10:23:54 malignant neoplasm of cervix (procedure) [code = 803194738] Future Scheduled 2021-10-11 BREAST CANCER [facility] Test 10:23:54 SCREENING [code = BREAST CANCER SCREENING] Future Scheduled 2021-10-11 COLONOSCOPY SCREENING [facility] Test 10:23:54 [code = COLONOSCOPY SCREENING] Future Scheduled 2021-10-11 SHINGLES VACCINES (1 Met [facility] Test 10:23:54 of 2) [code = SHINGLES VACCINES (1 of 2)] Future Scheduled 2021-10-11 INFLUENZA VACCINE Method [facility] Test 10:23:54 [code = INFLUENZA VACCINE] Future Scheduled 2021-10-11 HEPATITIS B VACCINES Met [facility] Test 10:23:54 (1 of 3 - 3-dose series) [code = HEPATITIS B VACCINES (1 of 3 - 3-dose series)] Future Scheduled 2021-10-11 COVID-19 VACCINE (#1) [facility] Test 10:23:54 [code = COVID-19 VACCINE (#1)] Future Scheduled 2021-10-11 65+ [facility] 10:23:54 VACCINE (1 - PCV) [code = 65+ PNEUMOCOCCAL VACCINE (1 - PCV)] Future Scheduled 2021-10-11 Hepatitis C screening [facility] Test 10:23:54 (procedure) [code = 591680639] Future Scheduled 2021-10-11 Screening for [facility] Test 10:23:54 malignant neoplasm of cervix (procedure) [code = 218134310] Future Scheduled 2021-10-11 BREAST CANCER [facility] Test 10:23:54 SCREENING [code = BREAST CANCER SCREENING] Future Scheduled 2021-10-11 COLONOSCOPY SCREENING [facility] Test 10:23:54 [code = COLONOSCOPY SCREENING] Future Scheduled 2021-10-11 SHINGLES VACCINES (1 Met [facility] Test 10:23:54 of 2) [code = SHINGLES VACCINES (1 of 2)] Future Scheduled 2021-10-11 INFLUENZA VACCINE Method [facility] Test 10:23:54 [code = INFLUENZA VACCINE] Goal Plan of Care Note [code = 34809-3] Goal Plan of Care Note [code = 28672-8] Goal Plan of Care Note [code = 73023-2] Goal Plan of Care Note [code = 61001-2] Goal Plan of Care Note [code = 94505-7] Goal Plan of Care Note [code = 20770-1] Goal Plan of Care Note [code = 52463-5] Goal Plan of Care Note [code = 76421-3] Goal Plan of Care Note [code = 37580-6] Goal Plan of Care Note [code = 34433-1] Goal Plan of Care Note [code = 29554-8] Goal Plan of Care Note [code = 72529-8] Goal Plan of Care Note [code = 25586-8] Goal Plan of Care Note [code = 38065-2] Goal Plan of Care Note [code = 26937-4] Goal Plan of Care Note [code = 41187-1] Goal Plan of Care Note [code = 71673-8] Goal Plan of Care Note [code = 27948-0] Goal Plan of Care Note [code = 59611-9] Goal Plan of Care Note [code = 27695-3] Goal Plan of Care Note [code = 01621-1] Goal Plan of Care Note [code = 28622-6] Goal Plan of Care Note [code = 69996-8] Goal Plan of Care Note [code = 63324-2] Goal Plan of Care Note [code = 78811-1] Goal Plan of Care Note [code = 35079-4] Goal Plan of Care Note [code = 79451-2] Goal Plan of Care Note [code = 22358-2] Goal Plan of Care Note [code = 67461-2] Goal Plan of Care Note [code = 08000-9] Goal Plan of Care Note [code = 91922-4] Goal Plan of Care Note [code = 68390-9] Goal Plan of Care Note [code = 01656-7] Goal Plan of Care Note [code = 32665-1] Goal Plan of Care Note [code = 96305-4] Goal Plan of Care Note [code = 04752-0] Goal Plan of Care Note [code = 67234-8] Goal Plan of Care Note [code = 24630-9] Goal Plan of Care Note [code = 83110-0] Goal Plan of Care Note [code = 55006-8] Goal Plan of Care Note [code = 86210-5] Goal Plan of Care Note [code = 34887-2] Goal Plan of Care Note [code = 10660-2] Goal Plan of Care Note [code = 46720-5] Goal Plan of Care Note [code = 75270-1] Goal Plan of Care Note [code = 16467-0] Goal Plan of Care Note [code = 39016-3] Goal Plan of Care Note [code = 58325-3] Goal Plan of Care Note [code = 48437-8] Goal Plan of Care Note [code = 21945-4] Goal Plan of Care Note [code = 54316-0] Goal Plan of Care Note [code = 20972-5] Goal Plan of Care Note [code = 83050-1] Goal Plan of Care Note [code = 09623-5] Goal Plan of Care Note [code = 72827-9] Goal Plan of Care Note [code = 09427-2] Goal Plan of Care Note [code = 97561-4] Goal Plan of Care Note [code = 69820-3] Goal Plan of Care Note [code = 59967-5] Goal Plan of Care Note [code = 09108-0] Goal Plan of Care Note [code = 60328-8] Goal Plan of Care Note [code = 05305-1] Goal Plan of Care Note [code = 03620-8] Goal Plan of Care Note [code = 79060-6] Goal Plan of Care Note [code = 73822-0] Goal Plan of Care Note [code = 70715-7] Goal Plan of Care Note [code = 12190-9] Goal Plan of Care Note [code = 56415-0] Goal Plan of Care Note [code = 16551-4] Goal Plan of Care Note [code = 88037-3] Goal Plan of Care Note [code = 69649-1] Goal Plan of Care Note [code = 25597-5] Goal Plan of Care Note [code = 06088-0] Goal Plan of Care Note [code = 76183-8] Goal Plan of Care Note [code = 79401-2] Goal Plan of Care Note [code = 27872-0] Goal Plan of Care Note [code = 47641-0] Goal Plan of Care Note [code = 87550-3] Goal Plan of Care Note [code = 74497-8] Goal Plan of Care Note [code = 78124-2] Goal Plan of Care Note [code = 30437-0] Goal Plan of Care Note [code = 34782-1] Goal Plan of Care Note [code = 03794-1] Goal Plan of Care Note [code = 66396-8] Goal Plan of Care Note [code = 64256-4] Goal Plan of Care Note [code = 45547-7] Goal Plan of Care Note [code = 40209-5] Goal Plan of Care Note [code = 46320-2] Goal Plan of Care Note [code = 95535-0] Goal Plan of Care Note [code = 75056-2] Goal Plan of Care Note [code = 77963-1] Goal Plan of Care Note [code = 19004-2] Goal Plan of Care Note [code = 74759-0] Goal Plan of Care Note [code = 05906-5] Goal Plan of Care Note [code = 22929-4] Goal Plan of Care Note [code = 33726-2] Goal Plan of Care Note [code = 64187-9] Goal Plan of Care Note [code = 34348-6] Goal Plan of Care Note [code = 31213-5] Goal Plan of Care Note [code = 13057-5] Goal Plan of Care Note [code = 53531-7] Goal Plan of Care Note [code = 94807-1] Goal Plan of Care Note [code = 29893-4] Goal Plan of Care Note [code = 57120-0] Goal Plan of Care Note [code = 61165-0] Goal Plan of Care Note [code = 96274-6] Goal Plan of Care Note [code = 09589-9] Goal Plan of Care Note [code = 91380-8] Goal Plan of Care Note [code = 02076-9] Goal Plan of Care Note [code = 87680-2] Goal Plan of Care Note [code = 80439-3] Goal Plan of Care Note [code = 90031-0] Goal Plan of Care Note [code = 85436-3] Goal Plan of Care Note [code = 40123-9] Goal Plan of Care Note [code = 98117-5] Goal Plan of Care Note [code = 82987-6] Goal Plan of Care Note [code = 50036-0] Goal Plan of Care Note [code = 68158-1] Goal Plan of Care Note [code = 67485-4] Goal Plan of Care Note [code = 71077-5] Goal Plan of Care Note [code = 21183-8] Goal Plan of Care Note [code = 59946-8] Goal Plan of Care Note [code = 98528-5] Goal Plan of Care Note [code = 46222-3] Goal Plan of Care Note [code = 30781-4] Goal Plan of Care Note [code = 98250-3] Goal Plan of Care Note [code = 54427-0] Goal Plan of Care Note [code = 60331-6] Goal Plan of Care Note [code = 07885-6] Goal Plan of Care Note [code = 13648-5] Goal Plan of Care Note [code = 36644-9] Goal Plan of Care Note [code = 92241-6] Goal Plan of Care Note [code = 45567-7] Goal Plan of Care Note [code = 65959-2] Goal Plan of Care Note [code = 18281-0] Goal Plan of Care Note [code = 86764-7] Goal Plan of Care Note [code = 46222-4] Goal Plan of Care Note [code = 42984-9] Goal Plan of Care Note [code = 37063-5] Goal Plan of Care Note [code = 25007-1] Goal Plan of Care Note [code = 52221-4] Goal Plan of Care Note [code = 35910-0] Goal Plan of Care Note [code = 38274-2] Goal Plan of Care Note [code = 88550-0] Goal Plan of Care Note [code = 13873-6] Goal Plan of Care Note [code = 76356-5] Goal Plan of Care Note [code = 58064-3] Goal Plan of Care Note [code = 95297-9] Goal Plan of Care Note [code = 38547-2] Goal Plan of Care Note [code = 82346-1] Goal Plan of Care Note [code = 11854-9] Goal Plan of Care Note [code = 42540-7] Goal Plan of Care Note [code = 48481-5] Goal Plan of Care Note [code = 89114-6] Goal Plan of Care Note [code = 90503-6] Goal Plan of Care Note [code = 14081-8] Encounters Start End Encounter Admission Attending Care Care Encounter Source Date/Time Date/Time Type Type Clinicians Facility Department ID 2022-05-27 2022-05-27 Outpatient SFA SFA [id number] 023 Yasir 11:13:39 11:13:39 0419 F Yusef 2022-04-30 2022-04-30 Outpatient SFA SFA 56220-5 023 Yasir 09:49:15 09:49:15 0323 F Yusef 2022-04-23 2022-04-23 Outpatient SFA SFA 44634-6 023 Yasir 09:58:52 09:58:52 0316 F Yusef 2021-12-11 2021-12-11 Outpatient SFA SFA 15920-3 022 Yasir 09:25:26 09:25:26 1103 F Yusef 2021-12-05 2021-12-06 Outpatient nullFlavo MNA [id number] Memoria 13:15:00 04:59:59 r Neurology 01 natasha Yazoorussel Quachann 2021-12-05 2021-12-06 Outpatient nullFlavo MNA 82436 [id number] Memoria 13:15:00 04:59:59 r Neurology 01 natasha Yazoorussel Quachann 2021-12-05 2021-12-05 [id number] 08:15:00 23:59:59 Rogelio Varghese Arreguin 2021-12-05 2021-12-05 Outpatient MHIE MHIE [id number] Memoria 08:15:00 08:15:00 01 natasha Day 2021-12-05 2021-12-05 Outpatient zb0nff68- [id number] ed 3fep23-7 00:00:00 00:00:00 Visit 5700-8887 059-4058-8 -7h93-5q2 r09-3y08z8 [id number] 279201 4060-10-25 2021-12-02 Ambulatory nullFlavo MNA 36398 35891 Memoria 13:15:00 13:15:00 Pre-Reg r Neurology 00 l Jose Quachann 2021-12-02 2021-12-02 Ambulatory nullFlavo MNA 62819 49017 Memoria 13:15:00 13:15:00 Pre-Reg r Neurology 00 l Yazoorussel Quachann 2021-12-02 2021-12-02 Outpatient ASHER HANSEN [id number] Memoria 08:15:00 08:15:00 00 l Shay 2021-12-02 2021-12-02 Outpatient ROGERS Oconnor [id number] 08:15:00 08:15:00 Rogelioramo Arreguin 2021-11-06 2021-11-06 Outpatient 7996afbf- [id number] 96afbf-7 00:00:00 00:00:00 Visit 78ef-41c6 8ef-41c6-8 -8750-b17 750-b175d4 4x51d12k0 9c05e3 2021-09-09 2021-09-09 Outpatient 8r2t7lto- [id number] 2c 2n0ggc-l 00:00:00 00:00:00 Visit ff63-90s3 f40-03h6-0 -8625-285 625-121261 7716e1n9j 2e6a5e 2021-08-15 2021-08-15 Outpatient 54w5i005- [id number] 32 j9u616-2 00:00:00 00:00:00 Visit 1578-4e21 578-4e21-b -t50k-9g6 11c-9m9293 7174dedcc 4dedcc 2021-07-15 2021-07-16 [facility] AnastasiiaColette [facility] 1.2.840.1 [id number] Methodi 01:59:00 13:57:00 Encounter Demetri Flynn 28440.1.[address] 3.430.2.7 Hospit a .3.829154 l .8 2021-07-15 2021-07-16 [facility] Anastasiia [facility] 1.2.840.1 1047 [id number] Methodi 01:59:00 13:57:00 Encounter Farzadgt Mavisnieves [address]3263.1.[address] 3.430.2.7 Hospit a .3.812081 l .8 2021-07-15 2021-07-15 Travel 1.2.840.1 1.2.994.912 9482 [id number] Methodi 00:00:00 00:00:[address] 3.430.2.7 0.2.7.3.698 Ho spita .3.687266 084.8 l .8 2021-07-15 2021-07-15 Travel 1.2.840.1 1.2.982.554 8257 629775 Methodi 00:00:00 00:00:[address] 3.430.2.7 0.2.7.3.698 Ho spita .3.207781 084.8 l .8 2020-01-17 2020-01-17 Orders Doctor NICHOLE 1.2.840.114 [id number] 00:00:00 00:00:00 Only Unassigned, ASHLEY 350.1.13.10 [facility] 4.2.7.2.686 [id number] 009 2020-01-17 2020-01-17 Orders Doctor DIONISIO 1.2.840.114 [id number] [facility] 00:00:00 00:00:00 Only Unassigned, ASHLEY 350.1.13.10 ity of [facility] 4.2.7.2.686 Nabil as [id number] [facility] [address] 2020-01-01 2020-01-01 Transition Ree Barkley 1.2.840.114 [id number] [id number] 00:00:00 00:00:00 of Care Sarah Carvalho 350.1.13.10 [place] 4.2.7.2.686 [id number] [facility] 2020-01-01 2020-01-01 Transition Ree Barkley 1.2.840.114 797 06726 [facility] 00:00:00 00:00:00 of Care Sarah Carvalho 350.1.13.10 ity of [place] [id number] [facility] [address] 2019-12-27 2019-12-30 [facility] GinnanadeennancyMinna 1.2.840. 114 [id number] 18:54:00 14:13:00 Troy Barreto [place] 350.1.13.10 [facility] 4.2.7.2.686 [id number] [facility] 2019-12-27 2019-12-30 Hospital Minna Mike 1.2.840. 114 [id number] [facility] 18:54:00 14:13:00 Encounter Troy Monae 350.1.13.10 ity of [facility] 4.2.7.2.[address] [place] [id number] 2019-12-27 2019-12-27 Emergency [facility] [id number] [facility] 18:54:00 [facility]:54:[facility] 2019-07-27 2019-07-27 Emergency [facility] 1.2.840.114 [id number] 16:26:45 18:20:00 Soila Espinosa 350.1.13.10 [place] 4.2.7.2.686 [place] [id number] [facility] 2019-07-27 2019-07-27 Emergency [facility] 1.2.840.114 76 [id number] [facility] 16:26:45 18:20:00 Soila Espinosa 350.1.13.10 ity [facility] 4.2.7.2.686 [facility] [id number] 2019-07-27 2019-07-27 Emergency X [facility] ERT [id number] [facility] 16:26:45 18:20:00 [facility] Results Test Description Test Time Test Comments Results Result Comments Source LACTIC ACID, PLASMA 2022-06-04 08:17:31 Test Item Value Reference Range Interpretation Comme nts LACTIC ACID, TEST NOT PERFORMED 4.5-19.8 Unable to perform testing, improper PLASMA (test MG/DL specimen receiv ed.Charges adjusted as code = 2056) applicable. [facility] has important pathology staff changes effective 04/08/2022. New pathology staff will provide uninter rupted, excellent patient care and clinic al consultation. See URL: [email or web address]. UNLESS OTHERWISE INDIC ATED, ALL TESTING PERFORMED AT [facility], I [place]. [address] [place] [address] CHRISTAL GONSALVES DIRECTOR: Noelle ALVARES SIMI NUMBER [id number] CAP ACCREDITATION N O. [id number] LACTIC ACID, [id number] 11:58:30 Test Item Value Reference Range Interpretation Comments LACTIC ACID, 24.2 MG/DL 4.5-19.8 H [facility] has im portant PLASMA (test code pathology staff changes = 2056) effective 04/08. New pathology s taff will provide uninter rupted, excellent patie nt care and clinical consultation. S ee URL: [email or web address]. UNLESS O THERWISE INDICATED, ALL TESTING PERFORMED AT [facility] PATHOLOGY [facility], [facility]. [address] [place] [address] CHRISTAL GONSALVES DIRECTOR: Noelle MANCILLA SIMI NUMBER [id number] CAP ACCREDITATION N O. [id number] COMPREHENSIVE METABOLIC [id number] 06:16:32 Test Item Value Reference Range Interpretation Comments GLUCOSE (test code = 323 MG/DL 70-99 H 2216) BUN (test code = 11 MG/DL 8-23 2207) CREATININE (test 0.71 MG/DL 0.60-1.30 code = 2214) eGFR (2020 CKD-EPI) 94 ML/MIN/1.73 >60 (test code = 18931) CALC BUN/CREAT (test 15 RATIO 6-28 code = 2235) SODIUM (test code = 143 MEQ/L 173-194 3000) POTASSIUM (test code 3.5 MEQ/L 3.5-5.4 = 2228) CHLORIDE (test code 100 MEQ/L 95-107 = 2215) CARBON DIOXIDE (test 28 MEQ/L 19-31 code = 2206) CALCIUM (test code = 9.2 MG/DL 8.5-10.5 2208) PROTEIN, TOTAL (test 6.5 G/DL 6.1-8.3 code = 2229) ALBUMIN (test code = 4.3 G/DL 3.5-5.2 2200) CALC GLOBULIN (test 2.2 G/DL 1.9-3.7 code = 2240) CALC A/G RATIO (test 2.0 RATIO 1.0-2.6 code = 2234) BILIRUBIN, TOTAL 0.2 MG/DL See_Comment [Automated message] (test code = 2207) The syste m which generated this result transmit shikha reference range : <=1.2. The refe rence range was not u sed to interpret th is result as normal/abnormal . ALKALINE PHOSPHATASE 72 U/L 40-142 (test code = 2203) AST (test code = 31 U/L 9-40 2217) ALT (test code = 37 U/L 5-40 2218) LACTIC ACID, [id number] 13:51:21 Test Item Value Reference Range Interpretation Comments LACTIC ACID, PLASMA (test code = 19.8 MG/DL 4.5-19.8 2056) TSH REFLEX TO FREE [id number] 05:35:06 Test Item Value Reference Range Interpretation Comments TSH REFLEX TO 1.810 UIU/ML 0.400-4.100 [facility] has i mportant FREE T4 (test pathology staf f changes code = 2834) effective 04/08. New patholo gy staff will provide uninterrupted, excellent patient care an d clinical consul tation. See URL: [email or web address]. UNLESS OTHERWISE INDICATED, ALL TESTING [facility] [address] [place] [address] 4 LABORATORY DIRE CTOR: FLACA JOHNSON M.D. [place] NUMBER [id number] [place] [id number] HEMOGLOBIN [id number] 04:53:38 Test Item Value Reference Range Interpretation Comments HEMOGLOBIN A1c (test 9.5 % 4.2-5.6 H [employer] [facility] code = 03461) ASSOCIATION IDELINES FOR HGB A1C: PREDIABETES/INC REASED [...] ATE TESTING OR LABORATORY C ONSULTATION. LIPID [id number] 03:59:11 Test Item Value Reference Range Interpretation Comments CHOLESTEROL (test 152 MG/DL <200 code = 2210) TRIGLYCERIDES (test 148 MG/DL <150 code = 2232) HDL CHOLESTEROL (test 65 MG/DL >39 code = 2220) CALC LDL CHOL (test 64 MG/DL <100 NOTE: C ALCULATED LDL code = 2237) IS BASED ON LAZARO-CHARLTON METHOD WHICHINCLUDES ADJUSTABLE TRIGLYCERIDE:VL DL CHOLESTEROL RAT IO.THIS FACTOR VARIES B Y MEASURED TRIGLY CERIDE AND NON-HDLCHOL ESTEROL CONCENTRATIONS WITH INCREASED CALCU LATED LDL SEENIN HIGH ER TRIGLYCERIDE OR LOWER NON-HDL SPECIME NS. FOR MOREINFORMATION , SEE CLIENT ANNOUNCE MENT AT [email or web address] [email or web address] RATIO LDL/HDL 0.98 RATIO <3.22 (test code = 2238) COMPREHENSIVE METABOLIC [id number] 03:59:11 Test Item Value Reference Range Interpretation Comments GLUCOSE (test code = 275 MG/DL 70-99 H 2216) BUN (test code = 17 MG/DL 8-23 2207) CREATININE (test 0.68 MG/DL 0.60-1.30 code = 2214) eGFR (2020 CKD-EPI) 96 ML/MIN/1.73 >60 (test code = 05943) CALC BUN/CREAT (test 25 RATIO 6-28 code = 2235) SODIUM (test code = 139 MEQ/L 663-612 5648) POTASSIUM (test code 3.9 MEQ/L 3.5-5.4 = 2227) CHLORIDE (test code 98 MEQ/L 95-107 = 221) CARBON DIOXIDE (test 28 MEQ/L 19-31 code = 2206) CALCIUM (test code = 9.5 MG/DL 8.5-10.5 2208) PROTEIN, TOTAL (test 6.1 G/DL 6.1-8.3 code = 2229) ALBUMIN (test code = 3.9 G/DL 3.5-5.2 2200) CALC GLOBULIN (test 2.2 G/DL 1.9-3.7 code = 2240) CALC A/G RATIO (test 1.8 RATIO 1.0-2.6 code = 2234) BILIRUBIN, TOTAL 0.4 MG/DL See_Comment [Automated message] (test code = 2207) The syste m which generated this result transmit shikha reference range : <=1.2. The refe rence range was not u sed to interpret th is result as normal/abnormal . ALKALINE PHOSPHATASE 59 U/L 40-142 (test code = 2204) AST (test code = 26 U/L 9-40 2217) ALT (test code = 38 U/L 5-40 2218) [id number] 03:56:08 Test Item Value Reference Range Interpretation Comments MAGNESIUM (test code = 2226) 1.9 MG/DL 1.6-2.6 LACTIC ACID, [id number] 11:30:59 Test Item Value Reference Range Interpretation Comments LACTIC ACID, PLASMA (test code = 12.0 MG/DL 4.5-19.8 2056) [id number] 03:42:38 Test Item Value Reference Range Interpretation Comments MAGNESIUM (test code = 2226) 1.9 MG/DL 1.6-2.6 COMPREHENSIVE METABOLIC [id number] 03:42:00 Test Item Value Reference Range Interpretation Comments GLUCOSE (test code = 193 MG/DL 70-99 H 2216) BUN (test code = 14 MG/DL 8-23 2207) CREATININE (test 0.68 MG/DL 0.60-1.30 code = 2214) eGFR (2020 CKD-EPI) 97 ML/MIN/1.73 >60 (test code = 26551) CALC BUN/CREAT (test 21 RATIO 6-28 code = 223) SODIUM (test code = 140 MEQ/L 385-399 6207) POTASSIUM (test code 4.4 MEQ/L 3.5-5.4 = [...] code = 25 U/L 5-40 2218) IRON, [id number] 03:42:00 Test Item Value Reference Range Interpretation Comments IRON, SERUM (test 21 UG/DL 37-145 L UNLESS OT HERWISE code = 2222) INDICATED, ALL TESTING PERFORMED [facility] [employer]. [address] [place] [address] DIRECTOR: TITA PARIKH M.D. CLIA NUMBER [id number] [facility] ACCREDITATION N O. [id number] HEMOGLOBIN [id number] 03:08:42 Test Item Value Reference Range Interpretation Comments HEMOGLOBIN A1c (test 8.0 % 4.2-5.6 H [employer] code = 00859) ASSOCIATION IDELINES FOR HGB A1C: PREDIABETES/INC REASED [...] LABORATORY C ONSULTATION. CBC W/AUTO DIFF WITH [id number] 01:59:57 Test Item Value Reference Range Interpretation [...] RBCS 0.00 K/UL 0.00-0.11 (test code = 80670) COMPREHENSIVE METABOLIC PANEL [ADDED]2021-09-16 00:00:00 Test Item Value Reference Range Interpretation Comments GLUCOSE (test code = 2217) 193 MG/DL BUN (test code = 2208) 14 MG/DL CREATININE (test code = 2214) 0.68 MG/DL eGFR (2020 CKD-EPI) (test code 97 ML/MIN/1.73 = 76194) CALC BUN/CREAT (test code = 21 RATIO [...] (2020 CKD-EPI) (test code 97 ML/MIN/1.73 = 80357) CALC BUN/CREAT (test code = 21 RATIO [...] Interpretation Comments HEMOGLOBIN A1c (test code = 82091) 8.0 % HEMOGLOBIN A1c [ADDED]2021-09-16 00:00:00 Test Item Value Reference Range Interpretation Comments HEMOGLOBIN A1c (test code = 53560) 8.0 % HEMOGLOBIN A1c [ADDED]2021-09-16 00:00:00 Test Item Value Reference Range Interpretation Comments HEMOGLOBIN A1c (test code = 35344) 8.0 % CBC W/AUTO DIFF WITH PLATELETS [...] NUCLEATED RBCS (test code = 0.00 K/UL 15702) CBC W/AUTO DIFF WITH PLATELETS [ADDED]2021-09-16 00:00:00 [...] NUCLEATED RBCS (test code = 0.00 K/UL 88303) CBC W/AUTO DIFF WITH PLATELETS [ADDED]2021-09-16 00:00:00 [...] NUCLEATED RBCS (test code = 0.00 K/UL 08961) IRON, SERUM [ADDED]2021-09-16 00:00:00 Test Item Value [...] (2020 CKD-EPI) (test code 97 ML/MIN/1.73 = 63550) CALC BUN/CREAT (test code = 21 RATIO [...] (2020 CKD-EPI) (test code 97 ML/MIN/1.73 = 55966) CALC BUN/CREAT (test code = 21 RATIO [...] Interpretation Comments HEMOGLOBIN A1c (test code = 00663) 8.0 % HEMOGLOBIN A1c [ADDED]2021-09-16 00:00:00 Test Item Value Reference Range Interpretation Comments HEMOGLOBIN A1c (test code = 07771) 8.0 % HEMOGLOBIN A1c [ADDED]2021-09-16 00:00:00 Test Item Value Reference Range Interpretation Comments HEMOGLOBIN A1c (test code = 76462) 8.0 % CBC W/AUTO DIFF WITH PLATELETS [...] NUCLEATED RBCS (test code = 0.00 K/UL 58985) CBC W/AUTO DIFF WITH PLATELETS [ADDED]2021-09-16 00:00:00 [...] NUCLEATED RBCS (test code = 0.00 K/UL 09329) CBC W/AUTO DIFF WITH PLATELETS [ADDED]2021-09-16 00:00:00 [...] NUCLEATED RBCS (test code = 0.00 K/UL 05421) IRON, SERUM [ADDED]2021-09-16 00:00:00 Test Item Value [...] (2020 CKD-EPI) (test code 97 ML/MIN/1.73 = 19274) CALC BUN/CREAT (test code = 21 RATIO [...] (2020 CKD-EPI) (test code 97 ML/MIN/1.73 = 80202) CALC BUN/CREAT (test code = 21 RATIO [...] Interpretation Comments HEMOGLOBIN A1c (test code = 91759) 8.0 % HEMOGLOBIN A1c [ADDED]2021-09-16 00:00:00 Test Item Value Reference Range Interpretation Comments HEMOGLOBIN A1c (test code = 80329) 8.0 % HEMOGLOBIN A1c [ADDED]2021-09-16 00:00:00 Test Item Value Reference Range Interpretation Comments HEMOGLOBIN A1c (test code = 24137) 8.0 % CBC W/AUTO DIFF WITH PLATELETS [...] NUCLEATED RBCS (test code = 0.00 K/UL 21263) CBC W/AUTO DIFF WITH PLATELETS [ADDED]2021-09-16 00:00:00 [...] NUCLEATED RBCS (test code = 0.00 K/UL 86913) CBC W/AUTO DIFF WITH PLATELETS [ADDED]2021-09-16 00:00:00 [...] NUCLEATED RBCS (test code = 0.00 K/UL 20820) IRON, SERUM [ADDED]2021-09-16 00:00:00 Test Item Value [...] (2020 CKD-EPI) (test code 97 ML/MIN/1.73 = 62876) CALC BUN/CREAT (test code = 21 RATIO [...] (2020 CKD-EPI) (test code 97 ML/MIN/1.73 = 90993) CALC BUN/CREAT (test code = 21 RATIO [...] Interpretation Comments HEMOGLOBIN A1c (test code = 58448) 8.0 % HEMOGLOBIN A1c [ADDED]2021-09-16 00:00:00 Test Item Value Reference Range Interpretation Comments HEMOGLOBIN A1c (test code = 92576) 8.0 % HEMOGLOBIN A1c [ADDED]2021-09-16 00:00:00 Test Item Value Reference Range Interpretation Comments HEMOGLOBIN A1c (test code = 53171) 8.0 % CBC W/AUTO DIFF WITH PLATELETS [...] NUCLEATED RBCS (test code = 0.00 K/UL 59134) CBC W/AUTO DIFF WITH PLATELETS [ADDED]2021-09-16 00:00:00 [...] NUCLEATED RBCS (test code = 0.00 K/UL 75962) CBC W/AUTO DIFF WITH PLATELETS [ADDED]2021-09-16 00:00:00 [...] NUCLEATED RBCS (test code = 0.00 K/UL 70553) IRON, SERUM [ADDED]2021-09-16 00:00:00 Test Item Value [...] code = 12.0 MG/DL 2056) LACTIC ACID, [id number] 14:02:14 Test Item Value Reference Range Interpretation [...] code = 15.2 MG/DL 2056) COMPREHENSIVE METABOLIC [id number] 04:08:01 Test Item Value Reference Range Interpretation Comments GLUCOSE (test code = 104 MG/DL 70-99 H 2216) BUN (test code = 17 MG/DL 8-23 2207) CREATININE (test 0.73 MG/DL 0.60-1.30 code = 221) eGFR (2020 CKD-EPI) 91 >60 (test code = 63930) ML/MIN/1.73 CALC BUN/CREAT (test 23 RATIO 6-28 code = 2235) SODIUM (test code = 141 MEQ/L 985-557 5962) POTASSIUM (test code 4.7 MEQ/L 3.5-5.4 = [...] = 25 U/L 5-40 UNLESS OTH ERWISE 2219) INDICATED, ALL TESTING PERFORM [facility], I [place]. [address] [place] [address] LABOR ATORY DIRECTOR: Noelle VALLADARES NUMBER [id number] CAP ACCREDITATION N O. [id number] COMPREHENSIVE METABOLIC PANEL [ADDED]2021-08-19 00:00:00 Test Item Value Reference Range Interpretation Comments GLUCOSE (test code = 2217) 104 MG/DL BUN (test code = 2208) 17 MG/DL CREATININE (test code = 2214) 0.73 MG/DL eGFR (2020 CKD-EPI) (test code 91 ML/MIN/1.73 = 90586) CALC BUN/CREAT (test code = 23 RATIO [...] (2020 CKD-EPI) (test code 91 ML/MIN/1.73 = 10130) CALC BUN/CREAT (test code = 23 RATIO [...] (2020 CKD-EPI) (test code 91 ML/MIN/1.73 = 02110) CALC BUN/CREAT (test code = 23 RATIO [...] (2020 CKD-EPI) (test code 91 ML/MIN/1.73 = 70107) CALC BUN/CREAT (test code = 23 RATIO [...] (2020 CKD-EPI) (test code 91 ML/MIN/1.73 = 20453) CALC BUN/CREAT (test code = 23 RATIO 2235) SODIUM (test code = 2231) 141 MEQ/L POTASSIUM (test code = 2228) 4.7 MEQ/L CHLORIDE (test code = 2215) 100 MEQ/L CARBON DIOXIDE (test code = 29 MEQ/L 2206) CALCIUM (test code = 2209) 9.9 MG/DL PROTEIN, TOTAL (test code = 6.5 G/DL 2229) ALBUMIN (test code = 2201) [...] (2020 CKD-EPI) (test code 91 ML/MIN/1.73 = 21183) CALC BUN/CREAT (test code = 23 RATIO [...] (2020 CKD-EPI) (test code 91 ML/MIN/1.73 = 07016) CALC BUN/CREAT (test code = 23 RATIO [...] (2020 CKD-EPI) (test code 91 ML/MIN/1.73 = 16221) CALC BUN/CREAT (test code = 23 RATIO [...] RATIO 4) BILIRUBIN, TOTAL (test code = 0.2 MG/DL 2206) ALKALINE PHOSPHATASE (test 65 U/L code = 2204) AST (test code = 2218) 26 U/L ALT (test code = 2219) 25 U/L POC [id number] 16:05:00 Test Item Value Reference Range Interpretation Comments POC glucose (test code 354 mg/dL 65-99 HH Opera tor Name: Celeste = 10761-8) NwachukwuDevice ID: [id number] Lab Interpretation Abnormal (test code = 16522-7) [facility] [id number] 16:05:00 Test Item Value Reference Range Interpretation Comments POC glucose (test code 354 mg/dL 65-99 HH Opera tor Name: Celeste = 50726-0) NwachukwuDevice ID: [id number] Lab Interpretation Abnormal (test code = 13470-8) [facility] [id number] 16:05:00 Test Item Value Reference Range Interpretation Comments POC glucose (test code 354 mg/dL 65-99 HH Opera tor Name: Celeste = 75725-1) NwachukwuDevice ID: [id number] Lab Interpretation Abnormal (test code = 04711-5) [facility]2022-06-08 16:05:00 Test Item Value Reference Range Interpretation Comments POC glucose (test code 354 mg/dL 65-99 HH Opera tor Name: Celeste = 71990-8) NwachukwuDevice ID: [id number] Lab Interpretation Abnormal (test code = 77407-2) [facility]2022-06-08 16:05:00 Test Item Value Reference Range Interpretation Comments POC glucose (test code 354 mg/dL 65-99 HH Opera tor Name: Celeste = 69082-0) NwachukwuDevice ID: [id number] Lab Interpretation Abnormal (test code = 08570-8) [facility]2022-06-08 16:05:00 Test Item Value Reference Range Interpretation Comments POC glucose (test code 354 mg/dL 65-99 HH Opera tor Name: Celeste = 84001-1) NwachukwuDevice ID: [id number] Lab Interpretation Abnormal (test code = 05942-9) [facility]2022-06-08 16:05:00 Test Item Value Reference Range Interpretation Comments POC glucose (test code 354 mg/dL 65-99 HH Opera tor Name: Celeste = 56729-4) NwachukwuDevice ID: [id number] Lab Interpretation Abnormal (test code = 95351-0) [facility]2022-06-08 16:05:00 Test Item Value Reference Range Interpretation Comments POC glucose (test code 354 mg/dL 65-99 HH Opera tor Name: Celeste = 10682-1) NwachukwuDevice ID: [id number] Lab Interpretation Abnormal (test code = 66910-5) [place] [address] [id number] 01:04:59 Test Item Value Reference Range Interpretation Comments Ventricular rate (test 79 code = 253) Atrial rate (test code = 79 255) VA interval (test code = 132 266) QRSD [...] Sosa MD ([id number]) on 07/15/2021 8:04:[address]2022-06-08 01:04:59 Test Item Value Reference Range Interpretation Comments Ventricular rate (test code = 253) Atrial rate (test code = 255) VA interval (test code = 266) QRSD interval (test code = 260) QT interval (test code = 264) QTC interval (test code = 265) P axis 1 (test code = 267) QRS axis 1 (test code = 268) T wave axis (test code = 270) EKG impression (test Normal sinus code = 273) rhythm-Normal ECG-No previous ECGs available-[facility] Signed By Andrey Sosa MD ([id number]) on 07/15/2021 8:04:[address] PM [address]2022-06-08 01:04:59 Test Item Value Reference Range Interpretation Comments Ventricular rate (test code = 253) Atrial rate (test code = 255) VA interval (test code = 266) QRSD interval (test code = 260) QT interval (test code = 264) QTC interval (test code = 265) P axis 1 (test code = 267) QRS axis 1 (test code = 268) T wave axis (test code = 270) EKG impression (test Normal sinus code = 273) rhythm-Normal ECG-No previous ECGs available-Electronica y Signed By Andrey Sosa MD ([id number]) on 07/15/2021 8:04:[address]2022-06-08 01:04:59 Test Item Value Reference Range Interpretation Comments Ventricular rate (test 79 code = 253) Atrial rate (test code = 79 255) VA interval (test code = 132 266) QRSD [...] Sosa MD ([id number]) on 07/15/2021 8:04:56 PM [address]2022-06-08 01:04:59 Test Item Value Reference Range Interpretation Comments Ventricular rate (test 79 code = 253) Atrial rate (test code = 79 255) VA interval (test code = 132 266) QRSD [...] Sosa MD ([id number]) on 07/15/2021 8:04:56 PM [address]2022-06-08 01:04:59 Test Item Value Reference Range Interpretation Comments Ventricular rate (test 79 code = 253) Atrial rate (test code = 79 255) VA interval (test code = 132 266) QRSD [...] Sosa MD ([id number]) on 07/15/2021 8:04:56 PM [address]2022-06-08 01:04:59 Test Item Value Reference Range Interpretation Comments Ventricular rate (test 79 code = 253) Atrial rate (test code = 79 255) VA interval (test code = 132 266) QRSD [...] Sosa MD ([id number]) on 07/15/2021 8:04:56 [facility] [id number] 01:04:59 Test Item Value Reference Range Interpretation Comments Ventricular rate (test code = 253) Atrial rate (test code = 255) VA interval (test code = 266) QRSD interval [...] Sosa MD ([id number]) on 07/15/2021 8:04:56 PM [facility] [id number] 14:02:59 Test Item Value Reference Range Interpretation Comments LACTIC ACID, 26.7 MG/DL 4.5-19.8 H UNLESS OTHERWI SE PLASMA (test code INDICATED, ALL TESTING = 2056) PERFORMED [facility] NICAL PATHOLOGY LABOR FOR[facility] [address] [place], [place] [id number] [place] [address] DIRECTOR: TITA PARIKH M.D. CLIA NUMBER [id number] [facility] ACCREDITATION N O. [id number] LACTIC ACID, [id number] 00:00:00 Test Item Value Reference Range Interpretation Comments LACTIC ACID, PLASMA (test code = 26.7 MG/DL 2056) LACTIC ACID, [id number] 00:00:00 Test Item Value Reference Range Interpretation Comments LACTIC ACID, PLASMA (test code = 26.7 MG/DL 2056) LACTIC ACID, [id number] 00:00:00 Test Item Value Reference Range Interpretation Comments LACTIC ACID, PLASMA (test code = 26.7 MG/DL 2056) LACTIC ACID, [id number] 00:00:00 Test Item Value Reference Range Interpretation Comments LACTIC ACID, PLASMA (test code = 26.7 MG/DL 2056) LACTIC ACID, [id number] 00:00:00 Test Item Value Reference Range Interpretation Comments LACTIC ACID, PLASMA (test code = 26.7 MG/DL 2056) LACTIC ACID, [id number] 00:00:00 Test Item Value Reference Range Interpretation Comments LACTIC ACID, PLASMA (test code = 26.7 MG/DL 2056) LACTIC ACID, [id number] 00:00:00 Test Item Value Reference Range Interpretation Comments LACTIC ACID, PLASMA (test code = 26.7 MG/DL 2056) LACTIC ACID, [id number] 00:00:00 Test Item Value Reference Range Interpretation Comments LACTIC ACID, PLASMA (test code = 26.7 MG/DL 2056) LACTIC ACID, [id number] 10:45:50 Test Item Value Reference Range Interpretation Comments LACTIC ACID, 27.1 MG/DL 4.5-19.8 H UNLESS OTHERWI SE PLASMA (test code INDICATED, ALL TESTING = 2056) PERFORMED [facility] [employer]. [address] [place] [id number] [place] [address] DIRECTOR: TITA PARIKH M.D. CLIA NUMBER [id number] CAP ACCREDITATION N O. [id number] HEMOGLOBIN [id number] 05:02:08 Test Item Value Reference Range Interpretation Comments HEMOGLOBIN A1c (test 8.3 % 4.2-5.6 H AMERIC AN DIABETES code = 04840) ASSOCIATION IDELINES FOR HGB A1C: PREDIABETES/INC REASED [...] TESTING OR LABORATORY C ONSULTATION. COMPREHENSIVE METABOLIC [id number] 03:45:06 Test Item Value Reference Range Interpretation Comments GLUCOSE (test code = 397 MG/DL 70-99 H 2216) BUN (test code = 21 MG/DL 09-30) CREATININE (test 0.75 MG/DL 0.60-1.30 code = 2214) eGFR (2020 CKD-EPI) 88 ML/MIN/1.73 >60 (test code = 64768) CALC BUN/CREAT (test 28 RATIO 6-28 code = 2235) SODIUM (test code = 140 MEQ/L 259-794 8522) POTASSIUM (test code 4.2 MEQ/L 3.5-5.4 = 2228) CHLORIDE (test code 95 MEQ/L 95-107 = 2215) CARBON DIOXIDE (test 32 MEQ/L 19-31 H code = 2206) CALCIUM (test code = 10.0 MG/DL 8.5-10.5 220) PROTEIN, TOTAL (test 6.7 G/DL 6.1-8.3 code = 2229) ALBUMIN (test code = 4.4 G/DL 3.5-5.2 220) CALC GLOBULIN (test 2.3 G/DL 1.9-3.7 code [...] code = 25 U/L 5-40 2218) LIPID [id number] 03:45:06 Test Item Value Reference Range Interpretation [...] MOREINFORMATION , SEE CLIENT ANNOUNCE MENT AT [email or web address] [email or web address] RATIO LDL/HDL 0.93 RATIO <3.22 (test code = 2238) LIPID [id number] 00:00:00 Test Item Value Reference Range Interpretation Comments CHOLESTEROL (test code = 2210) 134 MG/DL TRIGLYCERIDES (test code = 2232) 81 MG/DL HDL CHOLESTEROL (test code = 2220) 61 MG/DL CALC LDL CHOL (test code = 2237) 57 MG/DL RISK RATIO LDL/HDL (test code = 0.93 RATIO 2238) LIPID [id number] 00:00:00 Test Item Value Reference Range Interpretation Comments CHOLESTEROL (test code = 2210) 134 MG/DL TRIGLYCERIDES (test code = 2232) 81 MG/DL HDL CHOLESTEROL (test code = 2220) 61 MG/DL CALC LDL CHOL (test code = 2237) 57 MG/DL RISK RATIO LDL/HDL (test code = 0.93 RATIO 2238) HEMOGLOBIN [id number] 00:00:00 Test Item Value Reference Range Interpretation Comments HEMOGLOBIN A1c (test code = 80159) 8.3 % HEMOGLOBIN [id number] 00:00:00 Test Item Value Reference Range Interpretation Comments HEMOGLOBIN A1c (test code = 51019) 8.3 % HEMOGLOBIN [id number] 00:00:00 Test Item Value Reference Range Interpretation Comments HEMOGLOBIN A1c (test code = 14667) 8.3 % LACTIC ACID, PLASMA [ADDED]2021-07-09 00:00:00 Test Item Value Reference Range Interpretation Comments LACTIC ACID, PLASMA (test code = 27.1 MG/DL 2056) LACTIC ACID, PLASMA [ADDED]2021-07-09 00:00:00 Test Item Value Reference Range Interpretation Comments LACTIC ACID, PLASMA (test code = 27.1 MG/DL 2056) COMPREHENSIVE METABOLIC [id number] 00:00:00 Test Item Value Reference Range Interpretation Comments GLUCOSE (test code = 2217) 397 MG/DL BUN (test code = 2208) 21 MG/DL CREATININE (test code = 2214) 0.75 MG/DL eGFR (2020 CKD-EPI) (test code 88 ML/MIN/1.73 = 73358) CALC BUN/CREAT (test code = 28 RATIO [...] code = 2219) 25 U/L COMPREHENSIVE METABOLIC [id number] 00:00:00 Test Item Value Reference Range Interpretation Comments GLUCOSE (test code = 2217) 397 MG/DL BUN (test code = 2208) 21 MG/DL CREATININE (test code = 2214) 0.75 MG/DL eGFR (2020 CKD-EPI) (test code 88 ML/MIN/1.73 = 15805) CALC BUN/CREAT (test code = 28 RATIO [...] (test code = 2219) 25 U/L LIPID [id number] 00:00:00 Test Item Value Reference Range Interpretation Comments CHOLESTEROL (test code = 2210) 134 MG/DL TRIGLYCERIDES (test code = 2232) 81 MG/DL HDL CHOLESTEROL (test code = 2220) 61 MG/DL CALC LDL CHOL (test code = 2237) 57 MG/DL RISK RATIO LDL/HDL (test code = 0.93 RATIO 2238) LIPID [id number] 00:00:00 Test Item Value Reference Range Interpretation Comments CHOLESTEROL (test code = 2210) 134 MG/DL TRIGLYCERIDES (test code = 2232) 81 MG/DL HDL CHOLESTEROL (test code = 2220) 61 MG/DL CALC LDL CHOL (test code = 2237) 57 MG/DL RISK RATIO LDL/HDL (test code = 0.93 RATIO 2238) HEMOGLOBIN [id number] 00:00:00 Test Item Value Reference Range Interpretation Comments HEMOGLOBIN A1c (test code = 16117) 8.3 % HEMOGLOBIN [id number] 00:00:00 Test Item Value Reference Range Interpretation Comments HEMOGLOBIN A1c (test code = 48518) 8.3 % HEMOGLOBIN [id number] 00:00:00 Test Item Value Reference Range Interpretation Comments HEMOGLOBIN A1c (test code = 94080) 8.3 % LACTIC ACID, PLASMA [ADDED]2021-07-09 00:00:00 Test Item Value Reference Range Interpretation Comments LACTIC ACID, PLASMA (test code = 27.1 MG/DL 2056) LACTIC ACID, PLASMA [ADDED]2021-07-09 00:00:00 Test Item Value Reference Range Interpretation Comments LACTIC ACID, PLASMA (test code = 27.1 MG/DL 2056) COMPREHENSIVE METABOLIC [id number] 00:00:00 Test Item Value Reference Range Interpretation Comments GLUCOSE (test code = 2217) 397 MG/DL BUN (test code = 2208) 21 MG/DL CREATININE (test code = 2214) 0.75 MG/DL eGFR (2020 CKD-EPI) (test code 88 ML/MIN/1.73 = 84491) CALC BUN/CREAT (test code = 28 RATIO 2234) SODIUM (test code = 2231) 140 MEQ/L POTASSIUM (test code = 2228) 4.2 MEQ/L CHLORIDE (test code = 2215) 95 MEQ/L CARBON DIOXIDE (test code = 32 MEQ/L 2205) CALCIUM (test code = 2209) 10.0 MG/DL PROTEIN, TOTAL (test code = 6.7 G/DL 2228) ALBUMIN (test code = 220) 4.4 G/DL CALC GLOBULIN (test code = 2.3 G/DL 2239) CALC A/G RATIO (test code = 1.9 RATIO 2233) BILIRUBIN, TOTAL (test code = 0.3 MG/DL 2206) ALKALINE PHOSPHATASE (test 73 U/L code = 2204) AST (test code = 2218) 19 U/L ALT (test code = 2219) 25 U/L COMPREHENSIVE METABOLIC [id number] 00:00:00 Test Item Value Reference Range Interpretation Comments GLUCOSE (test code = 2217) 397 MG/DL BUN (test code = 2208) 21 MG/DL CREATININE (test code = 2214) 0.75 MG/DL eGFR (2020 CKD-EPI) (test code 88 ML/MIN/1.73 = 48050) CALC BUN/CREAT (test code = 28 RATIO [...] (test code = 2219) 25 U/L LIPID [id number] 00:00:00 Test Item Value Reference Range Interpretation Comments CHOLESTEROL (test code = 2210) 134 MG/DL TRIGLYCERIDES (test code = 2232) 81 MG/DL HDL CHOLESTEROL (test code = 2220) 61 MG/DL CALC LDL CHOL (test code = 2237) 57 MG/DL RISK RATIO LDL/HDL (test code = 0.93 RATIO 2238) LIPID [id number] 00:00:00 Test Item Value Reference Range Interpretation Comments CHOLESTEROL (test code = 2210) 134 MG/DL TRIGLYCERIDES (test code = 2232) 81 MG/DL HDL CHOLESTEROL (test code = 2220) 61 MG/DL CALC LDL CHOL (test code = 2237) 57 MG/DL RISK RATIO LDL/HDL (test code = 0.93 RATIO 2238) HEMOGLOBIN [id number] 00:00:00 Test Item Value Reference Range Interpretation Comments HEMOGLOBIN A1c (test code = 90805) 8.3 % HEMOGLOBIN [id number] 00:00:00 Test Item Value Reference Range Interpretation Comments HEMOGLOBIN A1c (test code = 17306) 8.3 % HEMOGLOBIN [id number] 00:00:00 Test Item Value Reference Range Interpretation Comments HEMOGLOBIN A1c (test code = 14224) 8.3 % LACTIC ACID, PLASMA [ADDED]2021-07-09 00:00:00 Test Item Value Reference Range Interpretation Comments LACTIC ACID, PLASMA (test code = 27.1 MG/DL 2056) LACTIC ACID, PLASMA [ADDED]2021-07-09 00:00:00 Test Item Value Reference Range Interpretation Comments LACTIC ACID, PLASMA (test code = 27.1 MG/DL 2056) COMPREHENSIVE METABOLIC [id number] 00:00:00 Test Item Value Reference Range Interpretation Comments GLUCOSE (test code = 2217) 397 MG/DL BUN (test code = 2208) 21 MG/DL CREATININE (test code = 2214) 0.75 MG/DL eGFR (2020 CKD-EPI) (test code 88 ML/MIN/1.73 = 17100) CALC BUN/CREAT (test code = 28 RATIO [...] code = 2219) 25 U/L COMPREHENSIVE METABOLIC [id number] 00:00:00 Test Item Value Reference Range Interpretation Comments GLUCOSE (test code = 2217) 397 MG/DL BUN (test code = 2208) 21 MG/DL CREATININE (test code = 2214) 0.75 MG/DL eGFR (2020 CKD-EPI) (test code 88 ML/MIN/1.73 = 88960) CALC BUN/CREAT (test code = 28 RATIO [...] CALC GLOBULIN (test code = 2.3 G/DL 224) CALC A/G RATIO (test code = 1.9 RATIO 2234) BILIRUBIN, TOTAL (test code = 0.3 MG/DL 2206) ALKALINE PHOSPHATASE (test 73 U/L code = 2204) AST (test code = 2218) 19 U/L ALT (test code = 2219) 25 U/L LIPID [id number] 00:00:00 Test Item Value Reference Range Interpretation Comments CHOLESTEROL (test code = 2210) 134 MG/DL TRIGLYCERIDES (test code = 2232) 81 MG/DL HDL CHOLESTEROL (test code = 2220) 61 MG/DL CALC LDL CHOL (test code = 2237) 57 MG/DL RISK RATIO LDL/HDL (test code = 0.93 RATIO 2238) LIPID [id number] 00:00:00 Test Item Value Reference Range Interpretation Comments CHOLESTEROL (test code = 2210) 134 MG/DL TRIGLYCERIDES (test code = 2232) 81 MG/DL HDL CHOLESTEROL (test code = 2220) 61 MG/DL CALC LDL CHOL (test code = 2237) 57 MG/DL RISK RATIO LDL/HDL (test code = 0.93 RATIO 2238) HEMOGLOBIN [id number] 00:00:00 Test Item Value Reference Range Interpretation Comments HEMOGLOBIN A1c (test code = 98054) 8.3 % HEMOGLOBIN [id number] 00:00:00 Test Item Value Reference Range Interpretation Comments HEMOGLOBIN A1c (test code = 17412) 8.3 % HEMOGLOBIN [id number] 00:00:00 Test Item Value Reference Range Interpretation Comments HEMOGLOBIN A1c (test code = 72823) 8.3 % LACTIC ACID, PLASMA [ADDED]2021-07-09 00:00:00 Test Item Value Reference Range Interpretation Comments LACTIC ACID, PLASMA (test code = 27.1 MG/DL 2056) LACTIC ACID, PLASMA [ADDED]2021-07-09 00:00:00 Test Item Value Reference Range Interpretation Comments LACTIC ACID, PLASMA (test code = 27.1 MG/DL 2056) COMPREHENSIVE METABOLIC [id number] 00:00:00 Test Item Value Reference Range Interpretation Comments GLUCOSE (test code = 2217) 397 MG/DL BUN (test code = 2208) 21 MG/DL CREATININE (test code = 2214) 0.75 MG/DL eGFR (2020 CKD-EPI) (test code 88 ML/MIN/1.73 = 81783) CALC BUN/CREAT (test code = 28 RATIO [...] 0) CALC A/G RATIO (test code = 1.9 RATIO 4) BILIRUBIN, TOTAL (test code = 0.3 MG/DL 2206) ALKALINE PHOSPHATASE (test 73 U/L code = 2204) AST (test code = 2218) 19 U/L ALT (test code = 2219) 25 U/L COMPREHENSIVE METABOLIC [id number] 00:00:00 Test Item Value Reference Range Interpretation Comments GLUCOSE (test code = 2217) 397 MG/DL BUN (test code = 2208) 21 MG/DL CREATININE (test code = 2214) 0.75 MG/DL eGFR (2020 CKD-EPI) (test code 88 ML/MIN/1.73 = 85687) CALC BUN/CREAT (test code = 28 RATIO [...] ALT (test code = 2219) 25 U/L LACTIC ACID, [id number] 15:11:52 Test Item Value Reference Range Interpretation Comments LACTIC ACID, 11.7 MG/DL 4.5-19.8 UNLESS OTHERWI SE PLASMA (test code INDICATED, ALL TESTING = 2056) PERFORMED [facility] [address] [place] [id number] [place], [place] [address]A [facility] DIRECTOR: TITA PARIKH M.D. CLIA NUMBER [id number] CAP ACCREDITATION N O. [id number] LACTIC ACID, PLASMA [ADDED]2021-05-29 00:00:00 Test Item [...] (test code = 11.7 MG/DL 2056) HEMOGLOBIN [id number] 03:44:50 Test Item Value Reference Range Interpretation Comments HEMOGLOBIN A1c (test 7.5 % 4.2-5.6 H AMERIC AN DIABETES code = 78445) ASSOCIATION IDELIN[employer] FOR HGB A1C: PREDIABETES/INC REASED [...] TESTING OR LABORATORY C ONSULTATION. COMPREHENSIVE METABOLIC [id number] 03:25:55 Test Item Value Reference Range Interpretation Comments GLUCOSE (test code = 159 MG/DL 70-99 H 2216) BUN (test code = 17 MG/DL 8-23 2207) CREATININE (test 0.56 MG/DL 0.60-1.30 L code = 2214) eGFR (2020 CKD-EPI) 101 >60 (test code = 26149) ML/MIN/1.73 CALC BUN/CREAT (test 30 RATIO 6-28 H code = 2235) SODIUM (test code = 141 MEQ/L 259-429 9633) POTASSIUM (test code 4.4 MEQ/L 3.5-5.4 = [...] ALT (test code = 21 U/L 5-40 221) COMPREHENSIVE METABOLIC PANEL [ADDED]2021-05-28 00:00:00 Test Item Value Reference Range Interpretation Comments GLUCOSE (test code = 2217) 159 MG/DL BUN (test code = 2208) 17 MG/DL CREATININE (test code = 2214) 0.56 MG/DL eGFR (2020 CKD-EPI) (test 101 ML/MIN/1.73 code = 44046) CALC BUN/CREAT (test code = 30 RATIO [...] (2020 CKD-EPI) (test 101 ML/MIN/1.73 code = 78066) CALC BUN/CREAT (test code = 30 RATIO 2235) SODIUM (test code = 2231) 141 MEQ/L POTASSIUM (test code = 2228) 4.4 MEQ/L CHLORIDE (test code = 2215) 101 MEQ/L CARBON DIOXIDE (test code = 25 MEQ/L 2205) CALCIUM (test code = 220) 9.7 MG/DL PROTEIN, TOTAL (test code = [...] Interpretation Comments HEMOGLOBIN A1c (test code = 67322) 7.5 % HEMOGLOBIN A1c [ADDED]2021-05-28 00:00:00 Test Item Value Reference Range Interpretation Comments HEMOGLOBIN A1c (test code = 15656) 7.5 % HEMOGLOBIN A1c [ADDED]2021-05-28 00:00:00 Test Item Value Reference Range Interpretation Comments HEMOGLOBIN A1c (test code = 02730) 7.5 % COMPREHENSIVE METABOLIC PANEL [ADDED]2021-05-28 00:00:00 Test Item Value Reference Range Interpretation Comments GLUCOSE (test code = 2217) 159 MG/DL BUN (test code = 2208) 17 MG/DL CREATININE (test code = 2214) 0.56 MG/DL eGFR (2020 CKD-EPI) (test 101 ML/MIN/1.73 code = 36057) CALC BUN/CREAT (test code = 30 RATIO 2235) SODIUM (test code = 2231) 141 MEQ/L POTASSIUM (test code = 2228) 4.4 MEQ/L CHLORIDE (test code = 2215) 101 MEQ/L CARBON DIOXIDE (test code = 25 MEQ/L 2205) CALCIUM (test code = 220) 9.7 MG/DL PROTEIN, TOTAL (test code = [...] (2020 CKD-EPI) (test 101 ML/MIN/1.73 code = 48434) CALC BUN/CREAT (test code = 30 RATIO [...] Interpretation Comments HEMOGLOBIN A1c (test code = 84505) 7.5 % HEMOGLOBIN A1c [ADDED]2021-05-28 00:00:00 Test Item Value Reference Range Interpretation Comments HEMOGLOBIN A1c (test code = 49011) 7.5 % HEMOGLOBIN A1c [ADDED]2021-05-28 00:00:00 Test Item Value Reference Range Interpretation Comments HEMOGLOBIN A1c (test code = 48860) 7.5 % COMPREHENSIVE METABOLIC PANEL [ADDED]2021-05-28 00:00:00 Test Item Value Reference Range Interpretation Comments GLUCOSE (test code = 2217) 159 MG/DL BUN (test code = 2208) 17 MG/DL CREATININE (test code = 2214) 0.56 MG/DL eGFR (2020 CKD-EPI) (test 101 ML/MIN/1.73 code = 39466) CALC BUN/CREAT (test code = 30 RATIO [...] (2020 CKD-EPI) (test 101 ML/MIN/1.73 code = 85469) CALC BUN/CREAT (test code = 30 RATIO [...] Interpretation Comments HEMOGLOBIN A1c (test code = 01541) 7.5 % HEMOGLOBIN A1c [ADDED]2021-05-28 00:00:00 Test Item Value Reference Range Interpretation Comments HEMOGLOBIN A1c (test code = 09552) 7.5 % HEMOGLOBIN A1c [ADDED]2021-05-28 00:00:00 Test Item Value Reference Range Interpretation Comments HEMOGLOBIN A1c (test code = 16303) 7.5 % COMPREHENSIVE METABOLIC PANEL [ADDED]2021-05-28 00:00:00 Test Item Value Reference Range Interpretation Comments GLUCOSE (test code = 2217) 159 MG/DL BUN (test code = 2208) 17 MG/DL CREATININE (test code = 2214) 0.56 MG/DL eGFR (2020 CKD-EPI) (test 101 ML/MIN/1.73 code = 15289) CALC BUN/CREAT (test code = 30 RATIO [...] (2020 CKD-EPI) (test 101 ML/MIN/1.73 code = 28255) CALC BUN/CREAT (test code = 30 RATIO [...] Interpretation Comments HEMOGLOBIN A1c (test code = 20873) 7.5 % HEMOGLOBIN A1c [ADDED]2021-05-28 00:00:00 Test Item Value Reference Range Interpretation Comments HEMOGLOBIN A1c (test code = 68099) 7.5 % HEMOGLOBIN A1c [ADDED]2021-05-28 00:00:00 Test Item Value Reference Range Interpretation Comments HEMOGLOBIN A1c (test code = 52471) 7.5 % LACTIC ACID, [id number] 15:10:19 Test Item Value Reference Range Interpretation Comments LACTIC ACID, 34.5 MG/DL 4.5-19.8 H UNLESS OTHERWI SE PLASMA (test code INDICATED, ALL TESTING = 2056) PERFORMED [facility]. [address] [place] [id number] [place] [address] DIRECTOR: Noelle VALLADARES NUMBER [id number] CAP ACCREDITATION N O. [id number] LACTIC ACID, PLASMA [ADDED]2021-05-16 00:00:00 Test Item [...] code = 34.5 MG/DL 2056) LACTIC ACID, [id number] 13:30:20 Test Item Value Reference Range Interpretation Comments LACTIC ACID, 18.5 MG/DL 4.5-19.8 UNLESS OTHERWI SE PLASMA (test code INDICATED, ALL TESTING = 2056) [facility]MED [facility] [address] [place] [id number] [place] [address] DIRECTOR: TITA PARIKH M.D. CLIA NUMBER [id number] CAP ACCREDITATION N O. [id number] LACTIC ACID, [id number] 00:00:00 Test Item Value Reference Range Interpretation Comments LACTIC ACID, PLASMA (test code = 18.5 MG/DL 2056) LACTIC ACID, [id number] 00:00:00 Test Item Value Reference Range Interpretation Comments LACTIC ACID, PLASMA (test code = 18.5 MG/DL 2056) LACTIC ACID, [id number] 00:00:00 Test Item Value Reference Range Interpretation Comments LACTIC ACID, PLASMA (test code = 18.5 MG/DL 2056) LACTIC ACID, [id number] 00:00:00 Test Item Value Reference Range Interpretation Comments LACTIC ACID, PLASMA (test code = 18.5 MG/DL 2056) LACTIC ACID, [id number] 00:00:00 Test Item Value Reference Range Interpretation Comments LACTIC ACID, PLASMA (test code = 18.5 MG/DL 2056) LACTIC ACID, [id number] 00:00:00 Test Item Value Reference Range Interpretation Comments LACTIC ACID, PLASMA (test code = 18.5 MG/DL 2056) LACTIC ACID, [id number] 00:00:00 Test Item Value Reference Range Interpretation Comments LACTIC ACID, PLASMA (test code = 18.5 MG/DL 2056) LACTIC ACID, [id number] 00:00:00 Test Item Value Reference Range Interpretation Comments LACTIC ACID, PLASMA (test code = 18.5 MG/DL 2056) TSH, THIRD [id number] 06:41:17 Test Item Value Reference Range Interpretation Comments TSH, THIRD GENERATION (test code 1.300 UIU/ML 0.400-4.100 = 2821) LIPID [id number] 04:18:20 Test Item Value Reference Range Interpretation [...] , SEE CLIENT ANNOUNCE MENT AT [email or web address] RISK RATIO LDL/HDL 0.85 RATIO <3.22 (test code = 2238) COMPREHENSIVE METABOLIC [id number] 04:18:20 Test Item Value Reference Range Interpretation Comments GLUCOSE (test code = 93 MG/DL 70-99 2216) BUN (test code = 15 MG/DL 09-30) CREATININE (test 0.72 MG/DL 0.60-1.30 code = 2214) eGFR (2020 CKD-EPI) 93 ML/MIN/1.73 >60 (test code = 82390) CALC BUN/CREAT (test 21 RATIO 6-28 code = 2235) SODIUM (test code = 143 MEQ/L 267-930 6221) POTASSIUM (test code 3.8 MEQ/L 3.5-5.4 = 222) CHLORIDE (test code 98 MEQ/L 95-107 = [...] code = 36 U/L 5-40 2218) HEMOGLOBIN [id number] 03:31:34 Test Item Value Reference Range Interpretation Comments HEMOGLOBIN A1c (test 7.8 % 4.2-5.6 H AMERIC AN DIABETES code = 11718) ASSOCIATION IDELINES FOR HGB A1C: PREDIABETES/INC REASED [...] ATE TESTING OR LABORATORY C ONSULTATION. LIPID [id number] 00:00:00 Test Item Value Reference Range Interpretation Comments CHOLESTEROL (test code = 2210) 125 MG/DL TRIGLYCERIDES (test code = 2232) 167 MG/DL HDL CHOLESTEROL (test code = 2220) 54 MG/DL CALC LDL CHOL (test code = 2237) 46 MG/DL RISK RATIO LDL/HDL (test code = 0.85 RATIO 8) HEMOGLOBIN [id number] 00:00:00 Test Item Value Reference Range Interpretation Comments HEMOGLOBIN A1c (test code = 48336) 7.8 % HEMOGLOBIN [id number] 00:00:00 Test Item Value Reference Range Interpretation Comments HEMOGLOBIN A1c (test code = 06353) 7.8 % HEMOGLOBIN [id number] 00:00:00 Test Item Value Reference Range Interpretation Comments HEMOGLOBIN A1c (test code = 75220) 7.8 % COMPREHENSIVE METABOLIC [id number] 00:00:00 Test Item Value Reference Range Interpretation Comments GLUCOSE (test code = 2217) 93 MG/DL BUN (test code = 2208) 15 MG/DL CREATININE (test code = 2214) 0.72 MG/DL eGFR (2020 CKD-EPI) (test code 93 ML/MIN/1.73 = 49268) CALC BUN/CREAT (test code = 21 RATIO 5) SODIUM (test code = 2231) 143 MEQ/L [...] code = 2219) 36 U/L COMPREHENSIVE METABOLIC [id number] 00:00:00 Test Item Value Reference Range Interpretation Comments GLUCOSE (test code = 2217) 93 MG/DL BUN (test code = 2208) 15 MG/DL CREATININE (test code = 2214) 0.72 MG/DL eGFR (2020 CKD-EPI) (test code 93 ML/MIN/1.73 = 44966) CALC BUN/CREAT (test code = 21 RATIO [...] ALT (test code = 2219) 36 U/L [id number] 00:00:00 Test Item Value Reference Range Interpretation Comments TSH, THIRD GENERATION (test code 1.300 UIU/ML = 2821) [id number] 00:00:00 Test Item Value Reference Range Interpretation Comments TSH, THIRD GENERATION (test code 1.300 UIU/ML = 2821) [id number] 00:00:00 Test Item Value Reference Range Interpretation Comments TSH, THIRD GENERATION (test code 1.300 UIU/ML = 2821) LIPID [id number] 00:00:00 Test Item Value Reference Range Interpretation Comments CHOLESTEROL (test code = 2210) 125 MG/DL TRIGLYCERIDES (test code = 2232) 167 MG/DL HDL CHOLESTEROL (test code = 2220) 54 MG/DL CALC LDL CHOL (test code = 2237) 46 MG/DL RISK RATIO LDL/HDL (test code = 0.85 RATIO 2238) LIPID [id number] 00:00:00 Test Item Value Reference Range Interpretation Comments CHOLESTEROL (test code = 2210) 125 MG/DL TRIGLYCERIDES (test code = 2232) 167 MG/DL HDL CHOLESTEROL (test code = 2220) 54 MG/DL CALC LDL CHOL (test code = 2237) 46 MG/DL RISK RATIO LDL/HDL (test code = 0.85 RATIO 2238) HEMOGLOBIN [id number] 00:00:00 Test Item Value Reference Range Interpretation Comments HEMOGLOBIN A1c (test code = 70617) 7.8 % HEMOGLOBIN [id number] 00:00:00 Test Item Value Reference Range Interpretation Comments HEMOGLOBIN A1c (test code = 89050) 7.8 % HEMOGLOBIN [id number] 00:00:00 Test Item Value Reference Range Interpretation Comments HEMOGLOBIN A1c (test code = 09546) 7.8 % COMPREHENSIVE METABOLIC [id number] 00:00:00 Test Item Value Reference Range Interpretation Comments GLUCOSE (test code = 2217) 93 MG/DL BUN (test code = 2208) 15 MG/DL CREATININE (test code = 2214) 0.72 MG/DL eGFR (2020 CKD-EPI) (test code 93 ML/MIN/1.73 = 95754) CALC BUN/CREAT (test code = 21 RATIO [...] code = 2219) 36 U/L COMPREHENSIVE METABOLIC [id number] 00:00:00 Test Item Value Reference Range Interpretation Comments GLUCOSE (test code = 2217) 93 MG/DL BUN (test code = 2208) 15 MG/DL CREATININE (test code = 2214) 0.72 MG/DL eGFR (2020 CKD-EPI) (test code 93 ML/MIN/1.73 = 51414) CALC BUN/CREAT (test code = 21 RATIO [...] ALT (test code = 2219) 36 U/L [id number] 00:00:00 Test Item Value Reference Range Interpretation Comments TSH, THIRD GENERATION (test code 1.300 UIU/ML = 2821) [id number] 00:00:00 Test Item Value Reference Range Interpretation Comments TSH, THIRD GENERATION (test code 1.300 UIU/ML = 2821) [id number] 00:00:00 Test Item Value Reference Range Interpretation Comments TSH, THIRD GENERATION (test code 1.300 UIU/ML = 2821) LIPID [id number] 00:00:00 Test Item Value Reference Range Interpretation Comments CHOLESTEROL (test code = 2210) 125 MG/DL TRIGLYCERIDES (test code = 2232) 167 MG/DL HDL CHOLESTEROL (test code = 2220) 54 MG/DL CALC LDL CHOL (test code = 2237) 46 MG/DL RISK RATIO LDL/HDL (test code = 0.85 RATIO 2238) LIPID [id number] 00:00:00 Test Item Value Reference Range Interpretation Comments CHOLESTEROL (test code = 2210) 125 MG/DL TRIGLYCERIDES (test code = 2232) 167 MG/DL HDL CHOLESTEROL (test code = 2220) 54 MG/DL CALC LDL CHOL (test code = 2237) 46 MG/DL RISK RATIO LDL/HDL (test code = 0.85 RATIO 2238) HEMOGLOBIN [id number] 00:00:00 Test Item Value Reference Range Interpretation Comments HEMOGLOBIN A1c (test code = 79175) 7.8 % HEMOGLOBIN [id number] 00:00:00 Test Item Value Reference Range Interpretation Comments HEMOGLOBIN A1c (test code = 78381) 7.8 % HEMOGLOBIN [id number] 00:00:00 Test Item Value Reference Range Interpretation Comments HEMOGLOBIN A1c (test code = 98093) 7.8 % COMPREHENSIVE METABOLIC [id number] 00:00:00 Test Item Value Reference Range Interpretation Comments GLUCOSE (test code = 2217) 93 MG/DL BUN (test code = 2208) 15 MG/DL CREATININE (test code = 2214) 0.72 MG/DL eGFR (2020 CKD-EPI) (test code 93 ML/MIN/1.73 = 75268) CALC BUN/CREAT (test code = 21 RATIO [...] code = 2219) 36 U/L COMPREHENSIVE METABOLIC [id number] 00:00:00 Test Item Value Reference Range Interpretation Comments GLUCOSE (test code = 2217) 93 MG/DL BUN (test code = 2208) 15 MG/DL CREATININE (test code = 2214) 0.72 MG/DL eGFR (2020 CKD-EPI) (test code 93 ML/MIN/1.73 = 13487) CALC BUN/CREAT (test code = 21 RATIO [...] ALT (test code = 2219) 36 U/L [id number] 00:00:00 Test Item Value Reference Range Interpretation Comments TSH, THIRD GENERATION (test code 1.300 UIU/ML = 2821) [id number] 00:00:00 Test Item Value Reference Range Interpretation Comments TSH, THIRD GENERATION (test code 1.300 UIU/ML = 2821) [id number] 00:00:00 Test Item Value Reference Range Interpretation Comments TSH, THIRD GENERATION (test code 1.300 UIU/ML = 2821) LIPID [id number] 00:00:00 Test Item Value Reference Range Interpretation Comments CHOLESTEROL (test code = 2210) 125 MG/DL TRIGLYCERIDES (test code = 2232) 167 MG/DL HDL CHOLESTEROL (test code = 2220) 54 MG/DL CALC LDL CHOL (test code = 2237) 46 MG/DL RISK RATIO LDL/HDL (test code = 0.85 RATIO 2238) LIPID [id number] 00:00:00 Test Item Value Reference Range Interpretation Comments CHOLESTEROL (test code = 2210) 125 MG/DL TRIGLYCERIDES (test code = 2232) 167 MG/DL HDL CHOLESTEROL (test code = 2220) 54 MG/DL CALC LDL CHOL (test code = 2237) 46 MG/DL RISK RATIO LDL/HDL (test code = 0.85 RATIO 2238) HEMOGLOBIN [id number] 00:00:00 Test Item Value Reference Range Interpretation Comments HEMOGLOBIN A1c (test code = 43419) 7.8 % HEMOGLOBIN [id number] 00:00:00 Test Item Value Reference Range Interpretation Comments HEMOGLOBIN A1c (test code = 90948) 7.8 % HEMOGLOBIN [id number] 00:00:00 Test Item Value Reference Range Interpretation Comments HEMOGLOBIN A1c (test code = 31707) 7.8 % COMPREHENSIVE METABOLIC [id number] 00:00:00 Test Item Value Reference Range Interpretation Comments GLUCOSE (test code = 2217) 93 MG/DL BUN (test code = 2208) 15 MG/DL CREATININE (test code = 2214) 0.72 MG/DL eGFR (2020 CKD-EPI) (test code 93 ML/MIN/1.73 = 63898) CALC BUN/CREAT (test code = 21 RATIO [...] code = 2219) 36 U/L COMPREHENSIVE METABOLIC [id number] 00:00:00 Test Item Value Reference Range Interpretation Comments GLUCOSE (test code = 2217) 93 MG/DL BUN (test code = 2208) 15 MG/DL CREATININE (test code = 2214) 0.72 MG/DL eGFR (2020 CKD-EPI) (test code 93 ML/MIN/1.73 = 10693) CALC BUN/CREAT (test code = 21 RATIO [...] ALT (test code = 2219) 36 U/L [id number] 00:00:00 Test Item Value Reference Range Interpretation Comments TSH, THIRD GENERATION (test code 1.300 UIU/ML = 2821) [id number] 00:00:00 Test Item Value Reference Range Interpretation Comments TSH, THIRD GENERATION (test code 1.300 UIU/ML = 2821) [id number] 00:00:00 Test Item Value Reference Range Interpretation Comments TSH, THIRD GENERATION (test code 1.300 UIU/ML = 2821) LIPID [id number] 00:00:00 Test Item Value Reference Range Interpretation Comments CHOLESTEROL (test code = 2210) 125 MG/DL TRIGLYCERIDES (test code = 2232) 167 MG/DL HDL CHOLESTEROL (test code = 2220) 54 MG/DL CALC LDL CHOL (test code = 2237) 46 MG/DL RISK RATIO LDL/HDL (test code = 0.85 RATIO 2238) MICROALBUMIN/CREATININE, RANDOM AND [id number] 00:00:00 Test Item Value Reference Range Interpretation Comments CREATININE, URINE, CONC. (test 128.0 MG/DL code = 2072) ALBUMIN, URINE, RANDOM (test code 2.2 MG/DL = 23328) CALC ALBUMIN/CREAT, RND (test 17 MG/G code = 31801) MICROALBUMIN/CREATININE, RANDOM AND [id number] 00:00:00 Test Item Value Reference Range Interpretation Comments CREATININE, URINE, CONC. (test 128.0 MG/DL code = 2072) ALBUMIN, URINE, RANDOM (test code 2.2 MG/DL = 93374) CALC ALBUMIN/CREAT, RND (test 17 MG/G code = 68226) HEMOGLOBIN [id number] 00:00:00 Test Item Value Reference Range Interpretation Comments HEMOGLOBIN A1c (test code = 70297) 10.9 % HEMOGLOBIN [id number] 00:00:00 Test Item Value Reference Range Interpretation Comments HEMOGLOBIN A1c (test code = 87443) 10.9 % HEMOGLOBIN [id number] 00:00:00 Test Item Value Reference Range Interpretation Comments HEMOGLOBIN A1c (test code = 07874) 10.9 % MICROALBUMIN/CREATININE, RANDOM AND [id number] 00:00:00 Test Item Value Reference Range Interpretation Comments CREATININE, URINE, CONC. (test 128.0 MG/DL code = 2072) ALBUMIN, URINE, RANDOM (test code 2.2 MG/DL = 08668) CALC ALBUMIN/CREAT, RND (test 17 MG/G code = 34857) MICROALBUMIN/CREATININE, RANDOM AND [id number] 00:00:00 Test Item Value Reference Range Interpretation Comments CREATININE, URINE, CONC. (test 128.0 MG/DL code = 2072) ALBUMIN, URINE, RANDOM (test code 2.2 MG/DL = 33365) CALC ALBUMIN/CREAT, RND (test 17 MG/G code = 34731) HEMOGLOBIN [id number] 00:00:00 Test Item Value Reference Range Interpretation Comments HEMOGLOBIN A1c (test code = 81245) 10.9 % HEMOGLOBIN [id number] 00:00:00 Test Item Value Reference Range Interpretation Comments HEMOGLOBIN A1c (test code = 16230) 10.9 % HEMOGLOBIN [id number] 00:00:00 Test Item Value Reference Range Interpretation Comments HEMOGLOBIN A1c (test code = 43334) 10.9 % MICROALBUMIN/CREATININE, RANDOM AND [id number] 00:00:00 Test Item Value Reference Range Interpretation Comments CREATININE, URINE, CONC. (test 128.0 MG/DL code = 2072) ALBUMIN, URINE, RANDOM (test code 2.2 MG/DL = 91738) CALC ALBUMIN/CREAT, RND (test 17 MG/G code = 66935) MICROALBUMIN/CREATININE, RANDOM AND [id number] 00:00:00 Test Item Value Reference Range Interpretation Comments CREATININE, URINE, CONC. (test 128.0 MG/DL code = 2072) ALBUMIN, URINE, RANDOM (test code 2.2 MG/DL = 19207) CALC ALBUMIN/CREAT, RND (test 17 MG/G code = 18963) HEMOGLOBIN [id number] 00:00:00 Test Item Value Reference Range Interpretation Comments HEMOGLOBIN A1c (test code = 39534) 10.9 % HEMOGLOBIN [id number] 00:00:00 Test Item Value Reference Range Interpretation Comments HEMOGLOBIN A1c (test code = 88754) 10.9 % HEMOGLOBIN [id number] 00:00:00 Test Item Value Reference Range Interpretation Comments HEMOGLOBIN A1c (test code = 91910) 10.9 % MICROALBUMIN/CREATININE, RANDOM AND [id number] 00:00:00 Test Item Value Reference Range Interpretation Comments CREATININE, URINE, CONC. (test 128.0 MG/DL code = 2072) ALBUMIN, URINE, RANDOM (test code 2.2 MG/DL = 29443) CALC ALBUMIN/CREAT, RND (test 17 MG/G code = 88152) MICROALBUMIN/CREATININE, RANDOM AND [id number] 00:00:00 Test Item Value Reference Range Interpretation Comments CREATININE, URINE, CONC. (test 128.0 MG/DL code = 2072) ALBUMIN, URINE, RANDOM (test code 2.2 MG/DL = 73359) CALC ALBUMIN/CREAT, RND (test 17 MG/G code = 45905) HEMOGLOBIN [id number] 00:00:00 Test Item Value Reference Range Interpretation Comments HEMOGLOBIN A1c (test code = 02394) 10.9 % HEMOGLOBIN [id number] 00:00:00 Test Item Value Reference Range Interpretation Comments HEMOGLOBIN A1c (test code = 30190) 10.9 % HEMOGLOBIN [id number] 00:00:00 Test Item Value Reference Range Interpretation Comments HEMOGLOBIN A1c (test code = 34631) 10.9 % HEMOGLOBIN [id number] 00:00:00 Test Item Value Reference Range Interpretation Comments HEMOGLOBIN A1c (test code = 00762) 10.9 % HEMOGLOBIN [id number] 00:00:00 Test Item Value Reference Range Interpretation Comments HEMOGLOBIN A1c (test code = 75641) 10.9 % HEMOGLOBIN [id number] 00:00:00 Test Item Value Reference Range Interpretation Comments HEMOGLOBIN A1c (test code = 62075) 10.9 % HEMOGLOBIN [id number] 00:00:00 Test Item Value Reference Range Interpretation Comments HEMOGLOBIN A1c (test code = 71992) 10.9 % HEMOGLOBIN [id number] 00:00:00 Test Item Value Reference Range Interpretation Comments HEMOGLOBIN A1c (test code = 73027) 10.9 % HEMOGLOBIN [id number] 00:00:00 Test Item Value Reference Range Interpretation Comments HEMOGLOBIN A1c (test code = 92283) 10.9 % HEMOGLOBIN [id number] 00:00:00 Test Item Value Reference Range Interpretation Comments HEMOGLOBIN A1c (test code = 37085) 10.9 % HEMOGLOBIN [id number] 00:00:00 Test Item Value Reference Range Interpretation Comments HEMOGLOBIN A1c (test code = 87017) 10.9 % HEMOGLOBIN [id number] 00:00:00 Test Item Value Reference Range Interpretation Comments HEMOGLOBIN A1c (test code = 73202) 10.9 % HEMOGLOBIN [id number] 00:00:00 Test Item Value Reference Range Interpretation Comments HEMOGLOBIN A1c (test code = 38207) 10.9 % HEMOGLOBIN [id number] 00:00:00 Test Item Value Reference Range Interpretation Comments HEMOGLOBIN A1c (test code = 60347) 10.9 % HEMOGLOBIN [id number] 00:00:00 Test Item Value Reference Range Interpretation Comments HEMOGLOBIN A1c (test code = 71701) 10.9 % CBC W/AUTO [id number] 00:00:00 Test Item Value Reference Range Interpretation [...] code = 1015) 218 K/UL CBC W/AUTO [id number] 00:00:00 Test Item Value Reference Range Interpretation [...] (test code = 1015) 218 K/UL HEMOGLOBIN [id number] 00:00:00 Test Item Value Reference Range Interpretation Comments HEMOGLOBIN A1c (test code = 20204) 5.9 % HEMOGLOBIN [id number] 00:00:00 Test Item Value Reference Range Interpretation Comments HEMOGLOBIN A1c (test code = 69434) 5.9 % HEMOGLOBIN [id number] 00:00:00 Test Item Value Reference Range Interpretation Comments HEMOGLOBIN A1c (test code = 33439) 5.9 % LIPID [id number] 00:00:00 Test Item Value Reference Range Interpretation Comments CHOLESTEROL (test code = 2210) 131 MG/DL TRIGLYCERIDES (test code = 2232) 190 MG/DL HDL CHOLESTEROL (test code = 2220) 42 MG/DL CALC LDL CHOL (test code = 2237) 63 MG/DL RISK RATIO LDL/HDL (test code = 1.50 RATIO 2238) LIPID [id number] 00:00:00 Test Item Value Reference Range Interpretation Comments CHOLESTEROL (test code = 2210) 131 MG/DL TRIGLYCERIDES (test code = 2232) 190 MG/DL HDL CHOLESTEROL (test code = 2220) 42 MG/DL CALC LDL CHOL (test code = 2237) 63 MG/DL RISK RATIO LDL/HDL (test code = 1.50 RATIO 2238) COMPREHENSIVE METABOLIC [id number] 00:00:00 Test Item Value Reference Range Interpretation Comments GLUCOSE (test code = 2217) 105 MG/DL BUN (test code = 2208) 17 MG/DL CREATININE (test code = 2214) 0.68 MG/DL eGFR AMER. (test code 107 ML/MIN/1.73 = 50897) eGFR NON- AMER. (test 92 ML/MIN/1.73 code = 17417) CALC BUN/CREAT (test code = 25 RATIO [...] code = 2219) 20 U/L COMPREHENSIVE METABOLIC [id number] 00:00:00 Test Item Value Reference Range Interpretation Comments GLUCOSE (test code = 2217) 105 MG/DL BUN (test code = 2208) 17 MG/DL CREATININE (test code = 2214) 0.68 MG/DL eGFR AMER. (test code 107 ML/MIN/1.73 = 82413) eGFR NON- AMER. (test 92 ML/MIN/1.73 code = 61948) CALC BUN/CREAT (test code = 25 RATIO [...] ALT (test code = 2219) 20 U/L [id number] 00:00:00 Test Item Value Reference Range Interpretation Comments TSH, THIRD GENERATION (test code 2.260 UIU/ML = 2821) [id number] 00:00:00 Test Item Value Reference Range Interpretation Comments TSH, THIRD GENERATION (test code 2.260 UIU/ML = 2821) [id number] 00:00:00 Test Item Value Reference Range Interpretation Comments TSH, THIRD GENERATION (test code 2.260 UIU/ML = 2821) CBC W/AUTO [id number] 00:00:00 Test Item Value Reference Range Interpretation [...] code = 1015) 218 K/UL CBC W/AUTO [id number] 00:00:00 Test Item Value Reference Range Interpretation [...] code = 1015) 218 K/UL CBC W/AUTO [id number] 00:00:00 Test Item Value Reference Range Interpretation [...] (test code = 1015) 218 K/UL HEMOGLOBIN [id number] 00:00:00 Test Item Value Reference Range Interpretation Comments HEMOGLOBIN A1c (test code = 31479) 5.9 % HEMOGLOBIN [id number] 00:00:00 Test Item Value Reference Range Interpretation Comments HEMOGLOBIN A1c (test code = 20209) 5.9 % HEMOGLOBIN [id number] 00:00:00 Test Item Value Reference Range Interpretation Comments HEMOGLOBIN A1c (test code = 37267) 5.9 % LIPID [id number] 00:00:00 Test Item Value Reference Range Interpretation Comments CHOLESTEROL (test code = 2210) 131 MG/DL TRIGLYCERIDES (test code = 2232) 190 MG/DL HDL CHOLESTEROL (test code = 2220) 42 MG/DL CALC LDL CHOL (test code = 2237) 63 MG/DL RISK RATIO LDL/HDL (test code = 1.50 RATIO 2238) LIPID [id number] 00:00:00 Test Item Value Reference Range Interpretation Comments CHOLESTEROL (test code = 2210) 131 MG/DL TRIGLYCERIDES (test code = 2232) 190 MG/DL HDL CHOLESTEROL (test code = 2220) 42 MG/DL CALC LDL CHOL (test code = 2237) 63 MG/DL RISK RATIO LDL/HDL (test code = 1.50 RATIO 2238) COMPREHENSIVE METABOLIC [id number] 00:00:00 Test Item Value Reference Range Interpretation Comments GLUCOSE (test code = 2217) 105 MG/DL BUN (test code = 2208) 17 MG/DL CREATININE (test code = 2214) 0.68 MG/DL eGFR AMER. (test code 107 ML/MIN/1.73 = 41133) eGFR NON- AMER. (test 92 ML/MIN/1.73 code = 36063) CALC BUN/CREAT (test code = 25 RATIO 2235) SODIUM (test code = 2231) 140 MEQ/L POTASSIUM (test code = 2228) 4.5 MEQ/L CHLORIDE (test code = 2215) 103 MEQ/L CARBON DIOXIDE (test code = 28 MEQ/L 2206) CALCIUM (test code = 2209) 9.3 MG/DL PROTEIN, TOTAL (test code = 6.6 G/DL 2229) ALBUMIN (test code = 2201) 4.6 G/DL CALC GLOBULIN (test code = 2.0 G/DL 2240) CALC A/G RATIO (test code = 2.3 RATIO 2234) BILIRUBIN, TOTAL (test code = 0.3 MG/DL 2206) ALKALINE PHOSPHATASE (test 62 U/L code = 2204) AST (test code = 2218) 23 U/L ALT (test code = 2219) 20 U/L COMPREHENSIVE METABOLIC [id number] 00:00:00 Test Item Value Reference Range Interpretation Comments GLUCOSE (test code = 2217) 105 MG/DL BUN (test code = 2208) 17 MG/DL CREATININE (test code = 2214) 0.68 MG/DL eGFR AMER. (test code 107 ML/MIN/1.73 = 55736) eGFR NON- AMER. (test 92 ML/MIN/1.73 code = 71546) CALC BUN/CREAT (test code = 25 RATIO 2235) SODIUM (test code = 2231) 140 MEQ/L POTASSIUM (test code = 2228) 4.5 MEQ/L CHLORIDE (test code = 2215) 103 MEQ/L CARBON DIOXIDE (test code = 28 MEQ/L 2205) CALCIUM (test code = 2209) 9.3 MG/DL PROTEIN, TOTAL (test code = 6.6 G/DL 2229) ALBUMIN (test code = 2201) 4.6 G/DL CALC GLOBULIN (test code = 2.0 G/DL 2240) CALC A/G RATIO (test code = 2.3 RATIO 2234) BILIRUBIN, TOTAL (test code = 0.3 MG/DL 220) ALKALINE PHOSPHATASE (test 62 U/L code = 2204) AST (test code = 2218) 23 U/L ALT (test code = 2219) 20 U/L [id number] 00:00:00 Test Item Value Reference Range Interpretation Comments TSH, THIRD GENERATION (test code 2.260 UIU/ML = 2821) [id number] 00:00:00 Test Item Value Reference Range Interpretation Comments TSH, THIRD GENERATION (test code 2.260 UIU/ML = 2821) [id number] 00:00:00 Test Item Value Reference Range Interpretation Comments TSH, THIRD GENERATION (test code 2.260 UIU/ML = 2821) CBC W/AUTO [id number] 00:00:00 Test Item Value Reference Range Interpretation [...] code = 1015) 218 K/UL CBC W/AUTO [id number] 00:00:00 Test Item Value Reference Range Interpretation [...] code = 1015) 218 K/UL CBC W/AUTO [id number] 00:00:00 Test Item Value Reference Range Interpretation [...] (test code = 1015) 218 K/UL HEMOGLOBIN [id number] 00:00:00 Test Item Value Reference Range Interpretation Comments HEMOGLOBIN A1c (test code = 20609) 5.9 % HEMOGLOBIN [id number] 00:00:00 Test Item Value Reference Range Interpretation Comments HEMOGLOBIN A1c (test code = 46696) 5.9 % HEMOGLOBIN [id number] 00:00:00 Test Item Value Reference Range Interpretation Comments HEMOGLOBIN A1c (test code = 11988) 5.9 % LIPID [id number] 00:00:00 Test Item Value Reference Range Interpretation Comments CHOLESTEROL (test code = 2210) 131 MG/DL TRIGLYCERIDES (test code = 2232) 190 MG/DL HDL CHOLESTEROL (test code = 2220) 42 MG/DL CALC LDL CHOL (test code = 2237) 63 MG/DL RISK RATIO LDL/HDL (test code = 1.50 RATIO 2238) LIPID [id number] 00:00:00 Test Item Value Reference Range Interpretation Comments CHOLESTEROL (test code = 2210) 131 MG/DL TRIGLYCERIDES (test code = 2232) 190 MG/DL HDL CHOLESTEROL (test code = 2220) 42 MG/DL CALC LDL CHOL (test code = 2237) 63 MG/DL RISK RATIO LDL/HDL (test code = 1.50 RATIO 2238) COMPREHENSIVE METABOLIC [id number] 00:00:00 Test Item Value Reference Range Interpretation Comments GLUCOSE (test code = 2217) 105 MG/DL BUN (test code = 2208) 17 MG/DL CREATININE (test code = 2214) 0.68 MG/DL eGFR AMER. (test code 107 ML/MIN/1.73 = 48632) eGFR NON- AMER. (test 92 ML/MIN/1.73 code = 30500) CALC BUN/CREAT (test code = 25 RATIO [...] code = 2219) 20 U/L COMPREHENSIVE METABOLIC [id number] 00:00:00 Test Item Value Reference Range Interpretation Comments GLUCOSE (test code = 2217) 105 MG/DL BUN (test code = 2208) 17 MG/DL CREATININE (test code = 2214) 0.68 MG/DL eGFR AMER. (test code 107 ML/MIN/1.73 = 44659) eGFR NON- AMER. (test 92 ML/MIN/1.73 code = 71144) CALC BUN/CREAT (test code = 25 RATIO [...] ALT (test code = 2219) 20 U/L [id number] 00:00:00 Test Item Value Reference Range Interpretation Comments TSH, THIRD GENERATION (test code 2.260 UIU/ML = 2821) [id number] 00:00:00 Test Item Value Reference Range Interpretation Comments TSH, THIRD GENERATION (test code 2.260 UIU/ML = 2821) [id number] 00:00:00 Test Item Value Reference Range Interpretation Comments TSH, THIRD GENERATION (test code 2.260 UIU/ML = 2821) CBC W/AUTO [id number] 00:00:00 Test Item Value Reference Range Interpretation [...] code = 1015) 218 K/UL CBC W/AUTO [id number] 00:00:00 Test Item Value Reference Range Interpretation [...] code = 1015) 218 K/UL CBC W/AUTO [id number] 00:00:00 Test Item Value Reference Range Interpretation [...] (test code = 1015) 218 K/UL HEMOGLOBIN [id number] 00:00:00 Test Item Value Reference Range Interpretation Comments HEMOGLOBIN A1c (test code = 85159) 5.9 % HEMOGLOBIN [id number] 00:00:00 Test Item Value Reference Range Interpretation Comments HEMOGLOBIN A1c (test code = 99106) 5.9 % HEMOGLOBIN [id number] 00:00:00 Test Item Value Reference Range Interpretation Comments HEMOGLOBIN A1c (test code = 84090) 5.9 % LIPID [id number] 00:00:00 Test Item Value Reference Range Interpretation Comments CHOLESTEROL (test code = 2210) 131 MG/DL TRIGLYCERIDES (test code = 2232) 190 MG/DL HDL CHOLESTEROL (test code = 2220) 42 MG/DL CALC LDL CHOL (test code = 2237) 63 MG/DL RISK RATIO LDL/HDL (test code = 1.50 RATIO 2238) LIPID [id number] 00:00:00 Test Item Value Reference Range Interpretation Comments CHOLESTEROL (test code = 2210) 131 MG/DL TRIGLYCERIDES (test code = 2232) 190 MG/DL HDL CHOLESTEROL (test code = 2220) 42 MG/DL CALC LDL CHOL (test code = 2237) 63 MG/DL RISK RATIO LDL/HDL (test code = 1.50 RATIO 2238) COMPREHENSIVE METABOLIC [id number] 00:00:00 Test Item Value Reference Range Interpretation Comments GLUCOSE (test code = 2217) 105 MG/DL BUN (test code = 2208) 17 MG/DL CREATININE (test code = 2214) 0.68 MG/DL eGFR AMER. (test code 107 ML/MIN/1.73 = 77263) eGFR NON- AMER. (test 92 ML/MIN/1.73 code = 75350) CALC BUN/CREAT (test code = 25 RATIO [...] code = 2219) 20 U/L COMPREHENSIVE METABOLIC [id number] 00:00:00 Test Item Value Reference Range Interpretation Comments GLUCOSE (test code = 2217) 105 MG/DL BUN (test code = 2208) 17 MG/DL CREATININE (test code = 2214) 0.68 MG/DL eGFR AMER. (test code 107 ML/MIN/1.73 = 72516) eGFR NON- AMER. (test 92 ML/MIN/1.73 code = 98561) CALC BUN/CREAT (test code = 25 RATIO 2235) SODIUM (test code = 2231) 140 MEQ/L POTASSIUM (test code = 2228) 4.5 MEQ/L CHLORIDE (test code = 2215) 103 MEQ/L CARBON DIOXIDE (test code = 28 MEQ/L 2206) CALCIUM (test code = 2209) 9.3 MG/DL PROTEIN, TOTAL (test code = 6.6 G/DL 2229) ALBUMIN (test code = 2201) 4.6 G/DL CALC GLOBULIN (test code = 2.0 G/DL 2240) CALC A/G RATIO (test code = 2.3 RATIO 2234) BILIRUBIN, TOTAL (test code = 0.3 MG/DL 2207) ALKALINE PHOSPHATASE (test 62 U/L code = 2204) AST (test code = 2218) 23 U/L ALT (test code = 2219) 20 U/L [id number] 00:00:00 Test Item Value Reference Range Interpretation Comments TSH, THIRD GENERATION (test code 2.260 UIU/ML = 2821) [id number] 00:00:00 Test Item Value Reference Range Interpretation Comments TSH, THIRD GENERATION (test code 2.260 UIU/ML = 2821) [id number] 00:00:00 Test Item Value Reference Range Interpretation Comments TSH, THIRD GENERATION (test code 2.260 UIU/ML = 2821) CBC W/AUTO [id number] 00:00:00 Test Item Value Reference Range Interpretation [...] COUNT (test code = 1015) 218 K/UL POCT GLUCOSE (AUTOMATED)2019-12-30 15:33:00 Test Item Value Reference Range Interpretation Comments POCT GLU (test code = 204 mg/dL 70-110 H Notifi ed Provider [id number]) Lab Interpretation (test Abnormal code = 07203-6) [facility] METABOLIC PANEL (NA, K, CL, CO2, GLUCOSE, BUN, CREATININE, CA)2019-12-30 10:50:00 Test Item Value Reference Range Interpretation Comments NA (test code = 137 mmol/L 135-145 [id number]) K (test code = 4.1 mmol/L 3.5-5 9130117835) CL (test code = 103 mmol/L 98-108 2922834369) CO2 TOTAL (test code = 29 mmol/L 23-31 4800048549) AGAP (test code = 2-16 6854921089) BUN (test code = 21 mg/dL 7-23 6949367073) GLUCOSE (test code = 97 mg/dL 70-110 4529491505) CREATININE (test code 0.67 mg/dL 0.5-1.04 = 5146060842) CALCIUM (test code = 9.0 mg/dL 8.6-10.6 1763824086) eGFR Calculation mL/min/1.73m2 (Non-) (test code = 4344203423) eGFR Calculation mL/min/1.73m2 () (test code = 4674274277) JOSHUA (test code = JOSHUA) Association of [...] or urine or abnormalities in imaging tests). [facility] 10:[facility]:00 Test Item Value Reference Range Interpretation Comments MAGNESIUM (test code = 8169434511) 2.2 mg/dL 1.7-2.4 Lab Interpretation (test code = Normal 15167-0) [facility] WITH [id number] 10:26:00 Test Item Value Reference Range Interpretation Comments WBC (test code = See_Comment [Automated 9890-2) message] The sy stem which generated this [...] RDW-SD (test code = 44.0 fL 39-49.9 79026-3) RDW-CV (test code = 12.6 % 12-15.5 788-0) PLT (test code = See_Comment [Automated 777-3) message] The sy stem which generated this result transmitted reference range : 166 - 358 10*3/ ?L. The reference r ramona was not used to interpret this result as normal/abnormal . MPV (test code = 9.7 fL 9.5-12.9 67057-8) NRBC/100 WBC (test See_Comment [Automat ed code = [id number]) message] The system which generated this result transmitted reference range : 0.0 - 10.0 /100 WBCs. The refer ence range was not u sed to interpret th is result as normal/abnormal . NRBC x10^3 (test code <0.01 See_Comment [Auto mated = [id number]) message] The s ystem which generated this result transmitted reference range : 10*3/?L. The reference range was not used to interpret this result as normal/abnormal . GRAN MAT (NEUT) % 57.7 % (test code = 770-8) IMM GRAN % (test code 0.20 % = 4440669397) LYMPH % (test code = 31.8 % 736-9) MONO % (test code = 8.1 % 5905-5) EOS % (test code = 1.9 % 713-8) BASO % (test code = 0.3 % 706-2) GRAN MAT x10^3(ANC) 5.12 10*3/uL 1.88-7.09 (test code = [id number]) IMM GRAN x10^3 (test <0.03 0-0.06 code = 9840570240) LYMPH x10^3 (test code 2.82 10*3/uL 1.32-3.29 = 731-0) MONO x10^3 (test code 0.72 10*3/uL 0.33-0.92 = 742-7) EOS x10^3 (test code = 0.17 10*3/uL 0.03-0.39 711-2) BASO x10^3 (test code 0.03 10*3/uL 0.01-0.07 = 704-7) Lab Interpretation Abnormal (test code = 91401-8) [facility] GLUCOSE (AUTOMATED)2019-12-30 01:52:00 Test Item Value Reference Range Interpretation Comments POCT GLU (test code = 9911466936) 199 mg/dL 70-110 H Lab Interpretation (test code = Abnormal 13915-4) [facility] GLUCOSE (AUTOMATED)2019-12-29 23:34:00 Test Item Value Reference Range Interpretation Comments POCT GLU (test code = 1581479745) 120 mg/dL 70-110 H Lab Interpretation (test code = Abnormal 13501-6) [facility]2019-12-29 14:02:00 Test Item Value Reference Range Interpretation Comments POCT GLU (test code = 5616310356) 99 mg/dL 70-110 Lab Interpretation (test code = Normal 68844-6) [facility] Metabolic Panel (NA, K, CL, CO2, GLUCOSE, BUN, CREATININE, CA)2019-12-29 11:40:00 Test Item Value Reference Range Interpretation Comments NA (test code = 139 mmol/L 135-145 4523474953) K (test code = 4.2 mmol/L 3.5-5 Slight 8610059197) hemolysis CL (test code = 104 mmol/L 98-108 6853489444) CO2 TOTAL (test code 30 mmol/L 23-31 = 8069708712) AGAP (test code = 2-16 8882406910) BUN (test code = 18 mg/dL 7-23 Slight 5718645448) hemolysis GLUCOSE (test code = 116 mg/dL 70-110 H 0363541133) CREATININE (test code 0.61 mg/dL 0.5-1.04 = 7580937046) CALCIUM (test code = 8.9 mg/dL 8.6-10.6 8867148274) eGFR Calculation mL/min/1.73m2 (Non-) (test code = 6602978074) eGFR Calculation mL/min/1.73m2 () (test code = 8548615583) JOSHUA (test code = JOSHUA) Association of [...] tests). Lab Interpretation Abnormal (test code = 34754-6) [facility]entonMagnesium [id number] 11:40:00 Test Item Value Reference Range Interpretation Comments MAGNESIUM (test code = 4996566843) 2.2 mg/dL 1.7-2.4 Lab Interpretation (test code = Normal 85713-2) [facility] DentonaPTT (for use with Heparin Drip)2019-12-29 11:21:00 Test Item Value Reference Range Interpretation Comments APTT Patient (test code See_Comment HH [Au tomated message] = 3173-2) The system [employer] generated this result transmitted ref erence range: 26 - 36 Seconds. The reference range was not used to int erpret this result as normal/abnormal . Lab Interpretation (test Abnormal code = 91732-1) [facility] (AUTOMATED)2019-12-29 04:19:00 Test Item Value Reference Range Interpretation Comments POCT GLU (test code = 8783807451) 115 mg/dL 70-110 H Lab Interpretation (test code = Abnormal 76338-3) [facility] DentonLipid Panel (Total Cholesterol, Triglycerides, HDL) - [id number] 03:03:00 Test Item Value Reference Range Interpretation Comments CHOL (test code = 164 mg/dL 120-200 1165258075) HDL (test code = 61 mg/dL >50 8212244576) HDLC RATIO (test code = See_Comment [Au tomated message] 0080429384) The system [employer] generated this result transmit shikha reference range : <=4.5. The refe rence range was not u sed to interpret th is result as normal/abnormal . TRIG (test code = 63 mg/dL 30-170 0224248269) LDL CHOL (test code = 90 mg/dL See_Comment [Auto mated message] 65083-1) The system [employer] generated this result transmit shikha reference range : <=160. The refe rence range was not u sed to interpret th is result as normal/abnormal . VLDL (test code = 13 mg/dL 5-60 8935689765) Lab Interpretation (test Normal code = 13499-3) [facility]onaPTT (for use with Heparin Drip)2019-12-29 00:36:00 Test Item Value Reference Range Interpretation Comments APTT Patient (test code See_Comment H [Au tomated message] = 3173-2) The system [employer] generated this result transmitted ref erence range: 26 - 36 Seconds. The reference range was not used to int erpret this result as normal/abnormal . Lab Interpretation (test Abnormal code = 70198-6) [facility] DentonTROPONIN [id number] 21:42:00 Test Item Value Reference Range Interpretation Comments TROPONIN I (test 0.081 ng/mL See_Comment H [Automated code = 5364823697) message] The system which generated this result [...] ? Lab Interpretation Abnormal (test code = 06156-0) [facility] DentonProthrombin Time (PT) / [id number] 12:39:00 Test Item Value Reference Range Interpretation Comments PROTIME PATIENT (test See_Comment [Auto mated message] code = 5964-2) The system [employer] ich generated this result transmitted ref erence range: 10.1 - 1 2.6 Seconds. The re ference range was not u sed to interpret this result as normal/abnor mal. INR (test code = 6301-6) Nor mal INR <1.1; Warfarin Therap eutic range 2.0 to 3. 0 or 2.5 to 3.5, dep ending upon the indica tions. Lab Interpretation (test Normal code = 72995-5) [facility] DentonaPTT2020-11-19 12:39:00 Test Item Value Reference Range Interpretation Comments APTT Patient (test code = See_Comment [ Automated message] 3173-2) The system [employer] h generated this result transmitted ref erence range: 26 - 36 Seconds. The re ference range was not u sed to interpret this result as normal/abnor mal. Lab Interpretation (test Normal code = 84597-3) [facility] DentonTroponin [id number] 11:11:00 Test Item Value Reference Range Interpretation Comments TROPONIN I (test 0.148 ng/mL See_Comment H [Automated code = 5574492269) message] The system which generated this result [...] ? Lab Interpretation Abnormal (test code = 84492-3) [facility] DentonGlycosylated Hemoglobin (A1C)2019-12-28 10:57:00 Test Item Value Reference Range Interpretation Comments HGB A1C (test code = 5.8 % 4-6 4548-4) JOSHUA (test code = JOSHUA) %A1C (NGSP) Interpretation (ADA)4.8-5.6 ? ? Normal or (Non-Diabetic Range)5.7-6.4 ? ? Increased Risk (Pre-Diabetic)>6.5 ?Diabetes Indicated Lab Interpretation Normal (test code = 87591-1) [facility] DentonThyroid Stimulating Hormone (TSH)2019-12-28 10:22:00 Test Item Value Reference Range Interpretation Comments TSH (test code = See_Comment Biotin has been 4240822266) reported to cau se a negative bias, interpret resul ts relative to pat ient's use of biotin. [Automated mess age] The system [employer] generated this result transmitted ref erence range: 0.45 - 4 .70 mIU/L. The refe rence range was not u sed to interpret this result as normal/abnor mal. Lab Interpretation (test Normal code = 37368-2) [facility] DentonN-Terminal [id number] 10:22:00 Test Item Value Reference Range Interpretation Comments NT-proBNP (test code 636 pg/mL See_Comment H [Autom ated = 8735615146) message] The system which generated this result transmitted reference range : <=125. The reference range was not used to interpret this result as normal/abnormal . JOSHUA (test code = JOSHUA) Biotin has been reported to cause a negative bias, interpret results relative to patient's use of biotin. Lab Interpretation Abnormal (test code = 09600-9) [facility] DentonCT CHEST PULMONARY [id number] 05:35:31 No acute pulmonary embolism through the [...] this study and agree with theabove report. [facility] DentonXR CHEST 1 [id number] 03:07:42 No acute cardiopulmonary abnormality. Preliminary Report [...] this study and agree with theabove report.[facility]DAK[facility] [id number] 02:26:00 Test Item Value Reference Range Interpretation Comments TROPONIN I (test 0.048 ng/mL See_Comment H [Automated code = 0485223715) message] The system which generated this result [...] ? Lab Interpretation Abnormal (test code = 06416-2) [facility]entonCOVID-19 (ID NOW RAPID TESTING)2019-12-28 02:22:00 Test Item Value Reference Range Interpretation Comments SARS-CoV-2 Rapid ID NOW Not Detected Not Detected (test code = 68119-7) JOSHUA (test code = JOSHUA) ID NOW COVID-19 Assay is an isothermal nucleic acid amplification test intended for the qualitative detection of nucleic acid from SARS-CoV-2 viral RNA in nasopharyngeal ([employer]) specimens. It is used under Emergency Use [...] indicated. Lab Interpretation Normal (test code = 76872-8) [facility] DentonCOM. METABOLIC PANEL (17049)2019-12-28 02:16:00 Test Item Value Reference Range Interpretation Comments NA (test code = 137 mmol/L 135-145 0775653960) K (test code = 3.8 mmol/L 3.5-5 7298302775) CL (test code = 101 mmol/L 98-108 0254672552) CO2 TOTAL (test code = 31 mmol/L 23-31 2868962033) AGAP (test code = 2-16 6341556665) BUN (test code = 18 mg/dL 7-23 6722156503) GLUCOSE (test code = 145 mg/dL 70-110 H 2228993722) CREATININE (test code = 0.55 mg/dL 0.5-1.04 0547638291) TOTAL BILI (test code = 0.4 mg/dL 0.1-1.3 1215820292) CALCIUM (test code = 8.8 mg/dL 8.6-10.6 1089826786) T PROTEIN (test code = 6.7 g/dL 6.3-8.2 8723661840) ALBUMIN (test code = 4.1 g/dL 3.5-5 1686695305) ALK PHOS (test code = 72 U/L 34-122 7281563741) ALTv (test code = 40 U/L 5-35 H 1742-6) AST(SGOT) (test code = 46 U/L 13-40 H 3954760325) eGFR Calculation mL/min/1.73m2 (Non-) (test code = 8829205019) eGFR Calculation mL/min/1.73m2 () (test code = 1459472983) JOSHUA (test code = JOSHUA) Association of [...] tests). Lab Interpretation Abnormal (test code = 59309-7) [facility]entonBASAINT [facility] (NA, K, CL, CO2, GLUCOSE, BUN, CREATININE, CA)2019-12-28 02:16:00 Test Item Value Reference Range Interpretation Comments NA (test code = 137 mmol/L 135-145 4299339789) K (test code = 3.8 mmol/L 3.5-5 6624238498) CL (test code = 101 mmol/L 98-108 0962725631) CO2 TOTAL (test code = 31 mmol/L 23-31 3131766797) AGAP (test code = 2-16 0114229403) BUN (test code = 18 mg/dL 7-23 4966436686) GLUCOSE (test code = 145 mg/dL 70-110 H 6539856549) CREATININE (test code = 0.55 mg/dL 0.5-1.04 2981279637) CALCIUM (test code = 8.8 mg/dL 8.6-10.6 3462848663) eGFR Calculation mL/min/1.73m2 (Non-) (test code = 9621163438) eGFR Calculation mL/min/1.73m2 () (test code = 1630502310) JOSHUA (test code = JOSHUA) Association of [...] tests). Lab Interpretation Abnormal (test code = 96557-1) [facility] WITH [id number] 02:01:00 Test Item Value Reference Range Interpretation Comments WBC (test code = See_Comment [Automated 3190-2) message] The sy stem which generated this [...] RDW-SD (test code = 42.5 fL 39-49.9 88355-5) RDW-CV (test code = 12.2 % 12-15.5 788-0) PLT (test code = See_Comment [Automated 777-3) message] The sy stem which generated this result transmitted reference range : 166 - 358 10*3/ ?L. The reference r ramona was not used to interpret this result as normal/abnormal . MPV (test code = 9.7 fL 9.5-12.9 77868-8) NRBC/100 WBC (test See_Comment [Automat ed code = 2912641727) message] The system which generated this result transmitted reference range : 0.0 - 10.0 /100 WBCs. The refer ence range was not u sed to interpret th is result as normal/abnormal . NRBC x10^3 (test code <0.01 See_Comment [Auto mated = 7075856786) message] The s ystem which generated this result transmitted reference range : 10*3/?L. The reference range was not used to interpret this result as normal/abnormal . GRAN MAT (NEUT) % 52.2 % (test code = 770-8) IMM GRAN % (test code 0.30 % = 8330666850) LYMPH % (test code = 36.0 % 736-9) MONO % (test code = 7.3 % 5905-5) EOS % (test code = 3.7 % 713-8) BASO % (test code = 0.5 % 706-2) GRAN MAT x10^3(ANC) 3.36 10*3/uL 1.88-7.09 (test code = 0684533448) IMM GRAN x10^3 (test <0.03 0-0.06 code = 4671672282) LYMPH x10^3 (test code 2.32 10*3/uL 1.32-3.29 = 731-0) MONO x10^3 (test code 0.47 10*3/uL 0.33-0.92 = 742-7) EOS x10^3 (test code = 0.24 10*3/uL 0.03-0.39 711-2) BASO x10^3 (test code 0.03 10*3/uL 0.01-0.07 = 704-7) Lab Interpretation Abnormal (test code = 68025-4) [facility]entonCOMPREHENSIVE METABOLIC [id number] 00:00:00 Test Item Value Reference Range Interpretation Comments GLUCOSE (test code = 2217) 110 MG/DL BUN (test code = 2208) 17 MG/DL CREATININE (test code = 2214) 0.63 MG/DL eGFR AMER. (test code 111 ML/MIN/1.73 = 48844) eGFR NON- AMER. (test 95 ML/MIN/1.73 code = 04980) CALC BUN/CREAT (test code = 27 RATIO [...] code = 2219) 26 U/L COMPREHENSIVE METABOLIC [id number] 00:00:00 Test Item Value Reference Range Interpretation Comments GLUCOSE (test code = 2217) 110 MG/DL BUN (test code = 2208) 17 MG/DL CREATININE (test code = 2214) 0.63 MG/DL eGFR AMER. (test code 111 ML/MIN/1.73 = 68103) eGFR NON- AMER. (test 95 ML/MIN/1.73 code = 87004) CALC BUN/CREAT (test code = 27 RATIO [...] code = 2219) 26 U/L COMPREHENSIVE METABOLIC [id number] 00:00:00 Test Item Value Reference Range Interpretation Comments GLUCOSE (test code = 2217) 110 MG/DL BUN (test code = 2208) 17 MG/DL CREATININE (test code = 2214) 0.63 MG/DL eGFR AMER. (test code 111 ML/MIN/1.73 = 91371) eGFR NON- AMER. (test 95 ML/MIN/1.73 code = 66224) CALC BUN/CREAT (test code = 27 RATIO [...] code = 2219) 26 U/L COMPREHENSIVE METABOLIC [id number] 00:00:00 Test Item Value Reference Range Interpretation Comments GLUCOSE (test code = 2217) 110 MG/DL BUN (test code = 2208) 17 MG/DL CREATININE (test code = 2214) 0.63 MG/DL eGFR AMER. (test code 111 ML/MIN/1.73 = 97118) eGFR NON- AMER. (test 95 ML/MIN/1.73 code = 17798) CALC BUN/CREAT (test code = 27 RATIO [...] code = 2219) 26 U/L COMPREHENSIVE METABOLIC [id number] 00:00:00 Test Item Value Reference Range Interpretation Comments GLUCOSE (test code = 2217) 110 MG/DL BUN (test code = 2208) 17 MG/DL CREATININE (test code = 2214) 0.63 MG/DL eGFR AMER. (test code 111 ML/MIN/1.73 = 37715) eGFR NON- AMER. (test 95 ML/MIN/1.73 code = 11589) CALC BUN/CREAT (test code = 27 RATIO [...] code = 2219) 26 U/L COMPREHENSIVE METABOLIC [id number] 00:00:00 Test Item Value Reference Range Interpretation Comments GLUCOSE (test code = 2217) 110 MG/DL BUN (test code = 2208) 17 MG/DL CREATININE (test code = 2214) 0.63 MG/DL eGFR AMER. (test code 111 ML/MIN/1.73 = 75882) eGFR NON- AMER. (test 95 ML/MIN/1.73 code = 09786) CALC BUN/CREAT (test code = 27 RATIO [...] code = 2219) 26 U/L COMPREHENSIVE METABOLIC [id number] 00:00:00 Test Item Value Reference Range Interpretation Comments GLUCOSE (test code = 2217) 110 MG/DL BUN (test code = 2208) 17 MG/DL CREATININE (test code = 2214) 0.63 MG/DL eGFR AMER. (test code 111 ML/MIN/1.73 = 24043) eGFR NON- AMER. (test 95 ML/MIN/1.73 code = 63518) CALC BUN/CREAT (test code = 27 RATIO [...] code = 2219) 26 U/L COMPREHENSIVE METABOLIC [id number] 00:00:00 Test Item Value Reference Range Interpretation Comments GLUCOSE (test code = 2217) 110 MG/DL BUN (test code = 2208) 17 MG/DL CREATININE (test code = 2214) 0.63 MG/DL eGFR AMER. (test code 111 ML/MIN/1.73 = 73873) eGFR NON- AMER. (test 95 ML/MIN/1.73 code = 81685) CALC BUN/CREAT (test code = 27 RATIO [...] code = 2219) 26 U/L COMPREHENSIVE METABOLIC [id number] 00:00:00 Test Item Value Reference Range Interpretation Comments GLUCOSE (test code = 2217) 78 MG/DL BUN (test code = 2208) 13 MG/DL CREATININE (test code = 2214) 0.57 MG/DL eGFR AMER. (test code 114 ML/MIN/1.73 = 10550) eGFR NON- AMER. (test 99 ML/MIN/1.73 code = 53751) CALC BUN/CREAT (test code = 23 RATIO [...] code = 2219) 27 U/L COMPREHENSIVE METABOLIC [id number] 00:00:00 Test Item Value Reference Range Interpretation Comments GLUCOSE (test code = 2217) 78 MG/DL BUN (test code = 2208) 13 MG/DL CREATININE (test code = 2214) 0.57 MG/DL eGFR AMER. (test code 114 ML/MIN/1.73 = 97050) eGFR NON- AMER. (test 99 ML/MIN/1.73 code = 24832) CALC BUN/CREAT (test code = 23 RATIO 2235) SODIUM (test code = 2231) 139 MEQ/L POTASSIUM (test code = 2228) 4.2 MEQ/L CHLORIDE (test code = 2215) 100 MEQ/L CARBON DIOXIDE (test code = 24 MEQ/L 2206) CALCIUM (test code = 2209) 9.7 MG/DL PROTEIN, TOTAL (test code = 7.1 G/DL 222) ALBUMIN (test code = 2201) 4.7 G/DL CALC GLOBULIN (test code = 2.4 G/DL 2240) CALC A/G RATIO (test code = 2.0 RATIO 2234) BILIRUBIN, TOTAL (test code = 0.4 MG/DL 220) ALKALINE PHOSPHATASE (test 51 U/L code = 2204) AST (test code = 2218) 30 U/L ALT (test code = 2219) 27 U/L CBC W/AUTO [id number] 00:00:00 Test Item Value Reference Range Interpretation [...] code = 1015) 268 K/UL CBC W/AUTO [id number] 00:00:00 Test Item Value Reference Range Interpretation [...] code = 1015) 268 K/UL CBC W/AUTO [id number] 00:00:00 Test Item Value Reference Range Interpretation [...] code = 1015) 268 K/UL COMPREHENSIVE METABOLIC [id number] 00:00:00 Test Item Value Reference Range Interpretation Comments GLUCOSE (test code = 2217) 78 MG/DL BUN (test code = 2208) 13 MG/DL CREATININE (test code = 2214) 0.57 MG/DL eGFR AMER. (test code 114 ML/MIN/1.73 = 25459) eGFR NON- AMER. (test 99 ML/MIN/1.73 code = 52294) CALC BUN/CREAT (test code = 23 RATIO [...] code = 2219) 27 U/L COMPREHENSIVE METABOLIC [id number] 00:00:00 Test Item Value Reference Range Interpretation Comments GLUCOSE (test code = 2217) 78 MG/DL BUN (test code = 2208) 13 MG/DL CREATININE (test code = 2214) 0.57 MG/DL eGFR AMER. (test code 114 ML/MIN/1.73 = 48523) eGFR NON- AMER. (test 99 ML/MIN/1.73 code = 37414) CALC BUN/CREAT (test code = 23 RATIO [...] code = 2219) 27 U/L CBC W/AUTO [id number] 00:00:00 Test Item Value Reference Range Interpretation [...] code = 1015) 268 K/UL CBC W/AUTO [id number] 00:00:00 Test Item Value Reference Range Interpretation [...] code = 1015) 268 K/UL CBC W/AUTO [id number] 00:00:00 Test Item Value Reference Range Interpretation [...] code = 1015) 268 K/UL COMPREHENSIVE METABOLIC [id number] 00:00:00 Test Item Value Reference Range Interpretation Comments GLUCOSE (test code = 2217) 78 MG/DL BUN (test code = 2208) 13 MG/DL CREATININE (test code = 2214) 0.57 MG/DL eGFR AMER. (test code 114 ML/MIN/1.73 = 02145) eGFR NON- AMER. (test 99 ML/MIN/1.73 code = 08111) CALC BUN/CREAT (test code = 23 RATIO [...] code = 2219) 27 U/L COMPREHENSIVE METABOLIC [id number] 00:00:00 Test Item Value Reference Range Interpretation Comments GLUCOSE (test code = 2217) 78 MG/DL BUN (test code = 2208) 13 MG/DL CREATININE (test code = 2214) 0.57 MG/DL eGFR AMER. (test code 114 ML/MIN/1.73 = 90591) eGFR NON- AMER. (test 99 ML/MIN/1.73 code = 78173) CALC BUN/CREAT (test code = 23 RATIO [...] A/G RATIO (test code = 2.0 RATIO 223) BILIRUBIN, TOTAL (test code = 0.4 MG/DL 2206) ALKALINE PHOSPHATASE (test 51 U/L code = 2204) AST (test code = 2218) 30 U/L ALT (test code = 2219) 27 U/L CBC W/AUTO [id number] 00:00:00 Test Item Value Reference Range Interpretation [...] code = 1015) 268 K/UL CBC W/AUTO [id number] 00:00:00 Test Item Value Reference Range Interpretation [...] code = 1015) 268 K/UL CBC W/AUTO [id number] 00:00:00 Test Item Value Reference Range Interpretation [...] code = 1015) 268 K/UL COMPREHENSIVE METABOLIC [id number] 00:00:00 Test Item Value Reference Range Interpretation Comments GLUCOSE (test code = 2217) 78 MG/DL BUN (test code = 2208) 13 MG/DL CREATININE (test code = 2214) 0.57 MG/DL eGFR AMER. (test code 114 ML/MIN/1.73 = 43838) eGFR NON- AMER. (test 99 ML/MIN/1.73 code = 71827) CALC BUN/CREAT (test code = 23 RATIO [...] code = 2219) 27 U/L COMPREHENSIVE METABOLIC [id number] 00:00:00 Test Item Value Reference Range Interpretation Comments GLUCOSE (test code = 2217) 78 MG/DL BUN (test code = 2208) 13 MG/DL CREATININE (test code = 2214) 0.57 MG/DL eGFR AMER. (test code 114 ML/MIN/1.73 = 82268) eGFR NON- AMER. (test 99 ML/MIN/1.73 code = 50474) CALC BUN/CREAT (test code = 23 RATIO [...] code = 2219) 27 U/L CBC W/AUTO [id number] 00:00:00 Test Item Value Reference Range Interpretation [...] code = 1015) 268 K/UL CBC W/AUTO [id number] 00:00:00 Test Item Value Reference Range Interpretation [...] code = 1015) 268 K/UL CBC W/AUTO [id number] 00:00:00 Test Item Value Reference Range Interpretation [...] code = 1015) 268 K/UL Chest 1 [id number] 22:39:59 No acute cardiopulmonary abnormality. Emphysematous changes. [...] study and agree with the abovereport.[facility] DentonAlvaradooscar [id number] 22:28:00 Test Item Value Reference Range Interpretation Comments TROPONIN I (test <0.012 See_Comment [Automated code = 3340196652) message] The system which generated this result [...] ? Lab Interpretation Normal (test code = 87776-7) [facility] DentonN-TERMINAL [id number] 22:24:00 Test Item Value Reference Range Interpretation Comments NT-proBNP (test code 675 pg/mL See_Comment H [Autom ated = 7328626027) message] The system which generated this result transmitted reference range : <=125. The reference range was not used to interpret this result as normal/abnormal . JOSHUA (test code = JOSHUA) Biotin has been reported to cause a negative bias, interpret results relative to patient's use of biotin. Lab Interpretation Abnormal (test code = 25448-5) [facility] DentonProthrombin Time (PT) / [id number] 22:20:00 Test Item Value Reference Range Interpretation [...] tions. Lab Interpretation (test Normal code = 48673-5) [facility] DentonBasi Metabolic Panel (NA, K, CL, CO2, GLUCOSE, BUN, CREATININE, CA)2019-07-27 22:17:00 Test Item Value Reference Range Interpretation Comments NA (test code = 138 mmol/L 135-145 9590055198) K (test code = 4.4 mmol/L 3.5-5 8075246176) CL (test code = 101 mmol/L 98-108 9350294235) CO2 TOTAL (test code = 28 mmol/L 23-31 0928071997) AGAP (test code = 2-16 9154654875) BUN (test code = 16 mg/dL 7-23 4462189834) GLUCOSE (test code = 88 mg/dL 70-110 5171630225) CREATININE (test code 0.55 mg/dL 0.5-1.04 = 6565964702) CALCIUM (test code = 10.1 mg/dL 8.6-10.6 5680409157) eGFR Calculation mL/min/1.73m2 (Non-) (test code = 9053481299) eGFR Calculation mL/min/1.73m2 () (test code = 3450972124) JOSHUA (test code = JOSHUA) Association of [...] or urine or abnormalities in imaging tests). [facility] DentonHepatic Function Panel (ALB, T.PRO, BILI T, BU/BC, ALT, AST, ALK PHOS)2019-07-27 22:17:00 Test Item Value Reference Range Interpretation Comments TOTAL BILI (test code = 5608988153) 0.7 mg/dL 0.1-1.1 BILI UNCON (test code = 3694339339) 0.8 mg/dL 0.1-1.1 BILI CONJ (test code = 1141004778) 0.0 mg/dL 0-0.3 T PROTEIN (test code = 3574489058) 7.7 g/dL 6.3-8.2 ALBUMIN (test code = 7965043049) 4.8 g/dL 3.5-5 ALK PHOS (test code = 6322101465) 49 U/L 34-122 ALTv (test code = 1742-6) 35 U/L 5-35 AST(SGOT) (test code = 4262363488) 42 U/L 13-40 H Lab Interpretation (test code = Abnormal 30597-5) [facility]entonCOVID-19 (ID NOW RAPID TESTING)2019-07-27 22:16:00 Test Item Value Reference Range Interpretation Comments SARS-CoV-2 Rapid ID NOW Not Detected Not Detected (test code = 88759-3) JOSHUA (test code = JOSHUA) ID NOW COVID-19 Assay is an isothermal nucleic acid amplification test intended for the qualitative detection of nucleic acid from SARS-CoV-2 viral RNA in nasopharyngeal ([employer]) specimens. It is used under Emergency Use [...] indicated. Lab Interpretation Normal (test code = 72076-7) [facility] WITH [id number] 21:58:00 Test Item Value Reference Range Interpretation Comments WBC (test code = See_Comment [Automated 0026-2) message] The sy stem which generated this result transmitted reference range : 4.30 - 11.10 10*3/?L. The reference range was not used to interpret this result as normal/abnormal . RBC (test code = See_Comment [Automated 309-3) message] The sy stem which generated this [...] RDW-SD (test code = 41.4 fL 39-49.9 10829-3) RDW-CV (test code = 12.2 % 12-15.5 788-0) PLT (test code = See_Comment [Automated 777-3) message] The sy stem which generated this result transmitted reference range : 166 - 358 10*3/ ?L. The reference r ramona was not used to interpret this result as normal/abnormal . MPV (test code = 9.7 fL 9.5-12.9 58613-2) NRBC/100 WBC (test See_Comment [Automat ed code = 5585522520) message] The system which generated this result transmitted reference range : 0.0 - 10.0 /100 WBCs. The refer ence range was not u sed to interpret th is result as normal/abnormal . NRBC x10^3 (test code <0.01 See_Comment [Auto mated = 0368437155) message] The s ystem which generated this result transmitted reference range : 10*3/?L. The reference range was not used to interpret this result as normal/abnormal . GRAN MAT (NEUT) % 72.2 % (test code = 770-8) IMM GRAN % (test code 0.40 % = [id number]) LYMPH % (test code = 19.5 % 736-9) MONO % (test code = 5.2 % 5905-5) EOS % (test code = 2.1 % 713-8) BASO % (test code = 0.6 % 706-2) GRAN MAT x10^3(ANC) 7.15 10*3/uL 1.88-7.09 H (test code = [id number]) IMM GRAN x10^3 (test 0.04 10*3/uL 0-0.06 code = 1018668251) LYMPH x10^3 (test code 1.93 10*3/uL 1.32-3.29 = 731-0) MONO x10^3 (test code 0.52 10*3/uL 0.33-0.92 = 742-7) EOS x10^3 (test code = 0.21 10*3/uL 0.03-0.39 711-2) BASO x10^3 (test code 0.06 10*3/uL 0.01-0.07 = 704-7) Lab Interpretation Abnormal (test code = 55281-3) [facility] [id number] 00:00:00 Test Item Value Reference Range Interpretation Comments GLUCOSE (test code = 2217) 113 MG/DL BUN (test code = 2208) 8 MG/DL CREATININE (test code = 2214) 0.64 MG/DL eGFR AMER. (test code 110 ML/MIN/1.73 = 79510) eGFR NON- AMER. (test 95 ML/MIN/1.73 code = 19140) CALC BUN/CREAT (test code = 13 RATIO 2235) SODIUM (test code = 2231) 139 MEQ/L POTASSIUM (test code = 2228) 4.3 MEQ/L CHLORIDE (test code = 2215) 97 MEQ/L CARBON DIOXIDE (test code = 26 MEQ/L 6) CALCIUM (test code = 2209) 9.8 MG/DL PROTEIN, TOTAL (test code = 7.2 G/DL 2229) ALBUMIN (test code = 2201) 5.1 G/DL CALC GLOBULIN (test code = 2.1 G/DL 2240) CALC A/G RATIO (test code = 2.4 RATIO 2234) BILIRUBIN, TOTAL (test code = 0.4 MG/DL 2206) ALKALINE PHOSPHATASE (test 56 U/L code = 2204) AST (test code = 2218) 27 U/L ALT (test code = 2219) 28 U/L COMPREHENSIVE METABOLIC [id number] 00:00:00 Test Item Value Reference Range Interpretation Comments GLUCOSE (test code = 2217) 113 MG/DL BUN (test code = 2208) 8 MG/DL CREATININE (test code = 2214) 0.64 MG/DL eGFR AMER. (test code 110 ML/MIN/1.73 = 19982) eGFR NON- AMER. (test 95 ML/MIN/1.73 code = 89749) CALC BUN/CREAT (test code = 13 RATIO [...] code = 2219) 28 U/L COMPREHENSIVE METABOLIC [id number] 00:00:00 Test Item Value Reference Range Interpretation Comments GLUCOSE (test code = 2217) 113 MG/DL BUN (test code = 2208) 8 MG/DL CREATININE (test code = 2214) 0.64 MG/DL eGFR AMER. (test code 110 ML/MIN/1.73 = 23004) eGFR NON- AMER. (test 95 ML/MIN/1.73 code = 46552) CALC BUN/CREAT (test code = 13 RATIO [...] code = 2219) 28 U/L COMPREHENSIVE METABOLIC [id number] 00:00:00 Test Item Value Reference Range Interpretation Comments GLUCOSE (test code = 2217) 113 MG/DL BUN (test code = 2208) 8 MG/DL CREATININE (test code = 2214) 0.64 MG/DL eGFR AMER. (test code 110 ML/MIN/1.73 = 53667) eGFR NON- AMER. (test 95 ML/MIN/1.73 code = 18766) CALC BUN/CREAT (test code = 13 RATIO [...] code = 2219) 28 U/L COMPREHENSIVE METABOLIC [id number] 00:00:00 Test Item Value Reference Range Interpretation Comments GLUCOSE (test code = 2217) 113 MG/DL BUN (test code = 2208) 8 MG/DL CREATININE (test code = 2214) 0.64 MG/DL eGFR AMER. (test code 110 ML/MIN/1.73 = 70549) eGFR NON- AMER. (test 95 ML/MIN/1.73 code = 58853) CALC BUN/CREAT (test code = 13 RATIO 2235) SODIUM (test code = 2231) 139 MEQ/L POTASSIUM (test code = 2228) 4.3 MEQ/L CHLORIDE (test code = 2215) 97 MEQ/L CARBON DIOXIDE (test code = 26 MEQ/L 220) CALCIUM (test code = 2209) 9.8 MG/DL PROTEIN, TOTAL (test code = 7.2 G/DL 2229) ALBUMIN (test code = 2201) 5.1 G/DL CALC GLOBULIN (test code = 2.1 G/DL 2240) CALC A/G RATIO (test code = 2.4 RATIO 2234) BILIRUBIN, TOTAL (test code = 0.4 MG/DL 220) ALKALINE PHOSPHATASE (test 56 U/L code = 2204) AST (test code = 2218) 27 U/L ALT (test code = 2219) 28 U/L COMPREHENSIVE METABOLIC [id number] 00:00:00 Test Item Value Reference Range Interpretation Comments GLUCOSE (test code = 2217) 113 MG/DL BUN (test code = 2208) 8 MG/DL CREATININE (test code = 2214) 0.64 MG/DL eGFR AMER. (test code 110 ML/MIN/1.73 = 38240) eGFR NON- AMER. (test 95 ML/MIN/1.73 code = 70112) CALC BUN/CREAT (test code = 13 RATIO 2235) SODIUM (test code = 2231) 139 MEQ/L POTASSIUM (test code = 2228) 4.3 MEQ/L CHLORIDE (test code = 2215) 97 MEQ/L CARBON DIOXIDE (test code = 26 MEQ/L 2206) CALCIUM (test code = 2209) 9.8 MG/DL PROTEIN, TOTAL (test code = 7.2 G/DL 2229) ALBUMIN (test code = 2201) 5.1 G/DL CALC GLOBULIN (test code = 2.1 G/DL 2240) CALC A/G RATIO (test code = 2.4 RATIO 2234) BILIRUBIN, TOTAL (test code = 0.4 MG/DL 2207) ALKALINE PHOSPHATASE (test 56 U/L code = 2204) AST (test code = 2218) 27 U/L ALT (test code = 2219) 28 U/L COMPREHENSIVE METABOLIC [id number] 00:00:00 Test Item Value Reference Range Interpretation Comments GLUCOSE (test code = 2217) 113 MG/DL BUN (test code = 2208) 8 MG/DL CREATININE (test code = 2214) 0.64 MG/DL eGFR AMER. (test code 110 ML/MIN/1.73 = 95385) eGFR NON- AMER. (test 95 ML/MIN/1.73 code = 35732) CALC BUN/CREAT (test code = 13 RATIO [...] code = 2219) 28 U/L COMPREHENSIVE METABOLIC [id number] 00:00:00 Test Item Value Reference Range Interpretation Comments GLUCOSE (test code = 2217) 113 MG/DL BUN (test code = 2208) 8 MG/DL CREATININE (test code = 2214) 0.64 MG/DL eGFR AMER. (test code 110 ML/MIN/1.73 = 06381) eGFR NON- AMER. (test 95 ML/MIN/1.73 code = 80370) CALC BUN/CREAT (test code = 13 RATIO [...] ALT (test code = 2219) 28 U/L LIPID [id number] 00:00:00 Test Item Value Reference Range Interpretation Comments CHOLESTEROL (test code = 2210) 138 MG/DL TRIGLYCERIDES (test code = 2232) 158 MG/DL HDL CHOLESTEROL (test code = 2220) 43 MG/DL CALC LDL CHOL (test code = 2237) 63 MG/DL RISK RATIO LDL/HDL (test code = 1.47 RATIO 2238) LIPID [id number] 00:00:00 Test Item Value Reference Range Interpretation Comments CHOLESTEROL (test code = 2210) 138 MG/DL TRIGLYCERIDES (test code = 2232) 158 MG/DL HDL CHOLESTEROL (test code = 2220) 43 MG/DL CALC LDL CHOL (test code = 2237) 63 MG/DL RISK RATIO LDL/HDL (test code = 1.47 RATIO 2238) COMPREHENSIVE METABOLIC [id number] 00:00:00 Test Item Value Reference Range Interpretation Comments GLUCOSE (test code = 2217) 103 MG/DL BUN (test code = 2208) 13 MG/DL CREATININE (test code = 2214) 0.83 MG/DL eGFR AMER. (test code 88 ML/MIN/1.73 = 28515) eGFR NON- AMER. (test 76 ML/MIN/1.73 code = 44609) CALC BUN/CREAT (test code = 16 RATIO [...] code = 2219) 20 U/L COMPREHENSIVE METABOLIC [id number] 00:00:00 Test Item Value Reference Range Interpretation Comments GLUCOSE (test code = 2217) 103 MG/DL BUN (test code = 2208) 13 MG/DL CREATININE (test code = 2214) 0.83 MG/DL eGFR AMER. (test code 88 ML/MIN/1.73 = 39395) eGFR NON- AMER. (test 76 ML/MIN/1.73 code = 96279) CALC BUN/CREAT (test code = 16 RATIO [...] (test code = 2219) 20 U/L HEMOGLOBIN [id number] 00:00:00 Test Item Value Reference Range Interpretation Comments HEMOGLOBIN A1c (test code = 11962) 5.9 % HEMOGLOBIN [id number] 00:00:00 Test Item Value Reference Range Interpretation Comments HEMOGLOBIN A1c (test code = 35293) 5.9 % HEMOGLOBIN [id number] 00:00:00 Test Item Value Reference Range Interpretation Comments HEMOGLOBIN A1c (test code = 11215) 5.9 % LIPID [id number] 00:00:00 Test Item Value Reference Range Interpretation Comments CHOLESTEROL (test code = 2210) 138 MG/DL TRIGLYCERIDES (test code = 2232) 158 MG/DL HDL CHOLESTEROL (test code = 2220) 43 MG/DL CALC LDL CHOL (test code = 2237) 63 MG/DL RISK RATIO LDL/HDL (test code = 1.47 RATIO 2238) LIPID [id number] 00:00:00 Test Item Value Reference Range Interpretation Comments CHOLESTEROL (test code = 2210) 138 MG/DL TRIGLYCERIDES (test code = 2232) 158 MG/DL HDL CHOLESTEROL (test code = 2220) 43 MG/DL CALC LDL CHOL (test code = 2237) 63 MG/DL RISK RATIO LDL/HDL (test code = 1.47 RATIO 2238) COMPREHENSIVE METABOLIC [id number] 00:00:00 Test Item Value Reference Range Interpretation Comments GLUCOSE (test code = 2217) 103 MG/DL BUN (test code = 2208) 13 MG/DL CREATININE (test code = 2214) 0.83 MG/DL eGFR AMER. (test code 88 ML/MIN/1.73 = 67923) eGFR NON- AMER. (test 76 ML/MIN/1.73 code = 20344) CALC BUN/CREAT (test code = 16 RATIO [...] code = 2219) 20 U/L COMPREHENSIVE METABOLIC [id number] 00:00:00 Test Item Value Reference Range Interpretation Comments GLUCOSE (test code = 2217) 103 MG/DL BUN (test code = 2208) 13 MG/DL CREATININE (test code = 2214) 0.83 MG/DL eGFR AMER. (test code 88 ML/MIN/1.73 = 17282) eGFR NON- AMER. (test 76 ML/MIN/1.73 code = 04786) CALC BUN/CREAT (test code = 16 RATIO [...] (test code = 2219) 20 U/L HEMOGLOBIN [id number] 00:00:00 Test Item Value Reference Range Interpretation Comments HEMOGLOBIN A1c (test code = 65174) 5.9 % HEMOGLOBIN [id number] 00:00:00 Test Item Value Reference Range Interpretation Comments HEMOGLOBIN A1c (test code = 36728) 5.9 % HEMOGLOBIN [id number] 00:00:00 Test Item Value Reference Range Interpretation Comments HEMOGLOBIN A1c (test code = 54877) 5.9 % LIPID [id number] 00:00:00 Test Item Value Reference Range Interpretation Comments CHOLESTEROL (test code = 2210) 138 MG/DL TRIGLYCERIDES (test code = 2232) 158 MG/DL HDL CHOLESTEROL (test code = 2220) 43 MG/DL CALC LDL CHOL (test code = 2237) 63 MG/DL RISK RATIO LDL/HDL (test code = 1.47 RATIO 2238) LIPID [id number] 00:00:00 Test Item Value Reference Range Interpretation Comments CHOLESTEROL (test code = 2210) 138 MG/DL TRIGLYCERIDES (test code = 2232) 158 MG/DL HDL CHOLESTEROL (test code = 2220) 43 MG/DL CALC LDL CHOL (test code = 2237) 63 MG/DL RISK RATIO LDL/HDL (test code = 1.47 RATIO 2238) COMPREHENSIVE METABOLIC [id number] 00:00:00 Test Item Value Reference Range Interpretation Comments GLUCOSE (test code = 2217) 103 MG/DL BUN (test code = 2208) 13 MG/DL CREATININE (test code = 2214) 0.83 MG/DL eGFR AMER. (test code 88 ML/MIN/1.73 = 06724) eGFR NON- AMER. (test 76 ML/MIN/1.73 code = 46736) CALC BUN/CREAT (test code = 16 RATIO [...] code = 2219) 20 U/L COMPREHENSIVE METABOLIC [id number] 00:00:00 Test Item Value Reference Range Interpretation Comments GLUCOSE (test code = 2217) 103 MG/DL BUN (test code = 2208) 13 MG/DL CREATININE (test code = 2214) 0.83 MG/DL eGFR AMER. (test code 88 ML/MIN/1.73 = 71710) eGFR NON- AMER. (test 76 ML/MIN/1.73 code = 62507) CALC BUN/CREAT (test code = 16 RATIO [...] (test code = 2219) 20 U/L HEMOGLOBIN [id number] 00:00:00 Test Item Value Reference Range Interpretation Comments HEMOGLOBIN A1c (test code = 87342) 5.9 % HEMOGLOBIN [id number] 00:00:00 Test Item Value Reference Range Interpretation Comments HEMOGLOBIN A1c (test code = 67068) 5.9 % HEMOGLOBIN [id number] 00:00:00 Test Item Value Reference Range Interpretation Comments HEMOGLOBIN A1c (test code = 63855) 5.9 % LIPID [id number] 00:00:00 Test Item Value Reference Range Interpretation Comments CHOLESTEROL (test code = 2210) 138 MG/DL TRIGLYCERIDES (test code = 2232) 158 MG/DL HDL CHOLESTEROL (test code = 2220) 43 MG/DL CALC LDL CHOL (test code = 2237) 63 MG/DL RISK RATIO LDL/HDL (test code = 1.47 RATIO 2238) LIPID [id number] 00:00:00 Test Item Value Reference Range Interpretation Comments CHOLESTEROL (test code = 2210) 138 MG/DL TRIGLYCERIDES (test code = 2232) 158 MG/DL HDL CHOLESTEROL (test code = 2220) 43 MG/DL CALC LDL CHOL (test code = 2237) 63 MG/DL RISK RATIO LDL/HDL (test code = 1.47 RATIO 2238) COMPREHENSIVE METABOLIC [id number] 00:00:00 Test Item Value Reference Range Interpretation Comments GLUCOSE (test code = 2217) 103 MG/DL BUN (test code = 2208) 13 MG/DL CREATININE (test code = 2214) 0.83 MG/DL eGFR AMER. (test code 88 ML/MIN/1.73 = 29272) eGFR NON- AMER. (test 76 ML/MIN/1.73 code = 55530) CALC BUN/CREAT (test code = 16 RATIO [...] code = 2219) 20 U/L COMPREHENSIVE METABOLIC [id number] 00:00:00 Test Item Value Reference Range Interpretation Comments GLUCOSE (test code = 2217) 103 MG/DL BUN (test code = 2208) 13 MG/DL CREATININE (test code = 2214) 0.83 MG/DL eGFR AMER. (test code 88 ML/MIN/1.73 = 46546) eGFR NON- AMER. (test 76 ML/MIN/1.73 code = 08122) CALC BUN/CREAT (test code = 16 RATIO [...] (test code = 2219) 20 U/L HEMOGLOBIN [id number] 00:00:00 Test Item Value Reference Range Interpretation Comments HEMOGLOBIN A1c (test code = 90880) 5.9 % HEMOGLOBIN [id number] 00:00:00 Test Item Value Reference Range Interpretation Comments HEMOGLOBIN A1c (test code = 49797) 5.9 % HEMOGLOBIN [id number] 00:00:00 Test Item Value Reference Range Interpretation Comments HEMOGLOBIN A1c (test code = 60525) 5.9 % HEMOGLOBIN [id number] 00:00:00 Test Item Value Reference Range Interpretation Comments HEMOGLOBIN A1c (test code = 51981) 6.2 % HEMOGLOBIN [id number] 00:00:00 Test Item Value Reference Range Interpretation Comments HEMOGLOBIN A1c (test code = 32544) 6.2 % HEMOGLOBIN [id number] 00:00:00 Test Item Value Reference Range Interpretation Comments HEMOGLOBIN A1c (test code = 69607) 6.2 % HEMOGLOBIN [id number] 00:00:00 Test Item Value Reference Range Interpretation Comments HEMOGLOBIN A1c (test code = 29801) 6.2 % HEMOGLOBIN [id number] 00:00:00 Test Item Value Reference Range Interpretation Comments HEMOGLOBIN A1c (test code = 58634) 6.2 % HEMOGLOBIN [id number] 00:00:00 Test Item Value Reference Range Interpretation Comments HEMOGLOBIN A1c (test code = 80903) 6.2 % HEMOGLOBIN [id number] 00:00:00 Test Item Value Reference Range Interpretation Comments HEMOGLOBIN A1c (test code = 42863) 6.2 % HEMOGLOBIN [id number] 00:00:00 Test Item Value Reference Range Interpretation Comments HEMOGLOBIN A1c (test code = 97191) 6.2 % HEMOGLOBIN [id number] 00:00:00 Test Item Value Reference Range Interpretation Comments HEMOGLOBIN A1c (test code = 37029) 6.2 % HEMOGLOBIN [id number] 00:00:00 Test Item Value Reference Range Interpretation Comments HEMOGLOBIN A1c (test code = 71579) 6.2 % HEMOGLOBIN [id number] 00:00:00 Test Item Value Reference Range Interpretation Comments HEMOGLOBIN A1c (test code = 62793) 6.2 % HEMOGLOBIN [id number] 00:00:00 Test Item Value Reference Range Interpretation Comments HEMOGLOBIN A1c (test code = 56843) 6.2 % [id number] 00:00:00 Test Item Value Reference Range Interpretation Comments POTASSIUM (test code = 2228) 4.9 MEQ/L [id number] 00:00:00 Test Item Value Reference Range Interpretation Comments POTASSIUM (test code = 2228) 4.9 MEQ/L [id number] 00:00:00 Test Item Value Reference Range Interpretation Comments POTASSIUM (test code = 2228) 4.9 MEQ/L [id number] 00:00:00 Test Item Value Reference Range Interpretation Comments POTASSIUM (test code = 2228) 4.9 MEQ/L [id number] 00:00:00 Test Item Value Reference Range Interpretation Comments POTASSIUM (test code = 2228) 4.9 MEQ/L [id number] 00:00:00 Test Item Value Reference Range Interpretation Comments POTASSIUM (test code = 2228) 4.9 MEQ/L [id number] 00:00:00 Test Item Value Reference Range Interpretation Comments POTASSIUM (test code = 2228) 4.9 MEQ/L [id number] 00:00:00 Test Item Value Reference Range Interpretation Comments POTASSIUM (test code = 2228) 4.9 MEQ/L HEMOGLOBIN [id number] 00:00:00 Test Item Value Reference Range Interpretation Comments HEMOGLOBIN A1c (test code = 99140) 6.8 % COMPREHENSIVE METABOLIC [id number] 00:00:00 Test Item Value Reference Range Interpretation Comments GLUCOSE (test code = 2217) 108 MG/DL BUN (test code = 2208) 13 MG/DL CREATININE (test code = 2214) 0.75 MG/DL eGFR AMER. (test code 99 ML/MIN/1.73 = 83003) eGFR NON- AMER. (test 85 ML/MIN/1.73 code = 49029) CALC BUN/CREAT (test code = 17 RATIO [...] code = 2219) 22 U/L COMPREHENSIVE METABOLIC [id number] 00:00:00 Test Item Value Reference Range Interpretation Comments GLUCOSE (test code = 2217) 108 MG/DL BUN (test code = 2208) 13 MG/DL CREATININE (test code = 2214) 0.75 MG/DL eGFR AMER. (test code 99 ML/MIN/1.73 = 27029) eGFR NON- AMER. (test 85 ML/MIN/1.73 code = 52864) CALC BUN/CREAT (test code = 17 RATIO [...] (test code = 2219) 22 U/L HEMOGLOBIN [id number] 00:00:00 Test Item Value Reference Range Interpretation Comments HEMOGLOBIN A1c (test code = 93335) 6.8 % HEMOGLOBIN [id number] 00:00:00 Test Item Value Reference Range Interpretation Comments HEMOGLOBIN A1c (test code = 21066) 6.8 % HEMOGLOBIN [id number] 00:00:00 Test Item Value Reference Range Interpretation Comments HEMOGLOBIN A1c (test code = 20179) 6.8 % COMPREHENSIVE METABOLIC [id number] 00:00:00 Test Item Value Reference Range Interpretation Comments GLUCOSE (test code = 2217) 108 MG/DL BUN (test code = 2208) 13 MG/DL CREATININE (test code = 2214) 0.75 MG/DL eGFR AMER. (test code 99 ML/MIN/1.73 = 30716) eGFR NON- AMER. (test 85 ML/MIN/1.73 code = 01548) CALC BUN/CREAT (test code = 17 RATIO [...] code = 2219) 22 U/L COMPREHENSIVE METABOLIC [id number] 00:00:00 Test Item Value Reference Range Interpretation Comments GLUCOSE (test code = 2217) 108 MG/DL BUN (test code = 2208) 13 MG/DL CREATININE (test code = 2214) 0.75 MG/DL eGFR AMER. (test code 99 ML/MIN/1.73 = 72687) eGFR NON- AMER. (test 85 ML/MIN/1.73 code = 14389) CALC BUN/CREAT (test code = 17 RATIO [...] BILIRUBIN, TOTAL (test code = 0.5 MG/DL 7) ALKALINE PHOSPHATASE (test 74 U/L code = 2204) AST (test code = 2218) 33 U/L ALT (test code = 2219) 22 U/L HEMOGLOBIN [id number] 00:00:00 Test Item Value Reference Range Interpretation Comments HEMOGLOBIN A1c (test code = 21152) 6.8 % HEMOGLOBIN [id number] 00:00:00 Test Item Value Reference Range Interpretation Comments HEMOGLOBIN A1c (test code = 49680) 6.8 % HEMOGLOBIN [id number] 00:00:00 Test Item Value Reference Range Interpretation Comments HEMOGLOBIN A1c (test code = 48734) 6.8 % COMPREHENSIVE METABOLIC [id number] 00:00:00 Test Item Value Reference Range Interpretation Comments GLUCOSE (test code = 2217) 108 MG/DL BUN (test code = 2208) 13 MG/DL CREATININE (test code = 2214) 0.75 MG/DL eGFR AMER. (test code 99 ML/MIN/1.73 = 19051) eGFR NON- AMER. (test 85 ML/MIN/1.73 code = 27098) CALC BUN/CREAT (test code = 17 RATIO [...] code = 2219) 22 U/L COMPREHENSIVE METABOLIC [id number] 00:00:00 Test Item Value Reference Range Interpretation Comments GLUCOSE (test code = 2217) 108 MG/DL BUN (test code = 2208) 13 MG/DL CREATININE (test code = 2214) 0.75 MG/DL eGFR AMER. (test code 99 ML/MIN/1.73 = 80572) eGFR NON- AMER. (test 85 ML/MIN/1.73 code = 90629) CALC BUN/CREAT (test code = 17 RATIO [...] (test code = 2219) 22 U/L HEMOGLOBIN [id number] 00:00:00 Test Item Value Reference Range Interpretation Comments HEMOGLOBIN A1c (test code = 53791) 6.8 % HEMOGLOBIN [id number] 00:00:00 Test Item Value Reference Range Interpretation Comments HEMOGLOBIN A1c (test code = 56038) 6.8 % HEMOGLOBIN [id number] 00:00:00 Test Item Value Reference Range Interpretation Comments HEMOGLOBIN A1c (test code = 36443) 6.8 % COMPREHENSIVE METABOLIC [id number] 00:00:00 Test Item Value Reference Range Interpretation Comments GLUCOSE (test code = 2217) 108 MG/DL BUN (test code = 2208) 13 MG/DL CREATININE (test code = 2214) 0.75 MG/DL eGFR AMER. (test code 99 ML/MIN/1.73 = 69905) eGFR NON- AMER. (test 85 ML/MIN/1.73 code = 68188) CALC BUN/CREAT (test code = 17 RATIO [...] code = 2219) 22 U/L COMPREHENSIVE METABOLIC [id number] 00:00:00 Test Item Value Reference Range Interpretation Comments GLUCOSE (test code = 2217) 108 MG/DL BUN (test code = 2208) 13 MG/DL CREATININE (test code = 2214) 0.75 MG/DL eGFR AMER. (test code 99 ML/MIN/1.73 = 78137) eGFR NON- AMER. (test 85 ML/MIN/1.73 code = 44755) CALC BUN/CREAT (test code = 17 RATIO [...] (test code = 2219) 22 U/L HEMOGLOBIN [id number] 00:00:00 Test Item Value Reference Range Interpretation Comments HEMOGLOBIN A1c (test code = 10482) 6.8 % HEMOGLOBIN [id number] 00:00:00 Test Item Value Reference Range Interpretation Comments HEMOGLOBIN A1c (test code = 47068) 6.8 % HEMOGLOBIN A1c [ADDED]2018-01-05 00:00:00 Test Item Value Reference Range Interpretation Comments HEMOGLOBIN A1c (test code = 64330) 7.3 % HEMOGLOBIN A1c [ADDED]2018-01-05 00:00:00 Test Item Value Reference Range Interpretation Comments HEMOGLOBIN A1c (test code = 20021) 7.3 % LIPID PANEL [ADDED]2018-01-05 00:00:00 Test [...] eGFR AMER. (test code 93 ML/MIN/1.73 = 74492) eGFR NON- AMER. (test 80 ML/MIN/1.73 code = 82402) CALC BUN/CREAT (test code = 15 RATIO [...] eGFR AMER. (test code 93 ML/MIN/1.73 = 19440) eGFR NON- AMER. (test 80 ML/MIN/1.73 code = 02562) CALC BUN/CREAT (test code = 15 RATIO [...] A/G RATIO (test code = 1.7 RATIO 2233) BILIRUBIN, TOTAL (test code = 0.4 MG/DL 2206) ALKALINE PHOSPHATASE (test 79 U/L code = 2204) AST (test code = 2218) 36 U/L ALT (test code = 2219) 43 U/L HEMOGLOBIN A1c [ADDED]2018-01-05 00:00:00 Test Item Value Reference Range Interpretation Comments HEMOGLOBIN A1c (test code = 51620) 7.3 % HEMOGLOBIN A1c [ADDED]2018-01-05 00:00:00 Test Item Value Reference Range Interpretation Comments HEMOGLOBIN A1c (test code = 36482) 7.3 % HEMOGLOBIN A1c [ADDED]2018-01-05 00:00:00 Test Item Value Reference Range Interpretation Comments HEMOGLOBIN A1c (test code = 14388) 7.3 % LIPID PANEL [ADDED]2018-01-05 00:00:00 Test [...] eGFR AMER. (test code 93 ML/MIN/1.73 = 79073) eGFR NON- AMER. (test 80 ML/MIN/1.73 code = 31160) CALC BUN/CREAT (test code = 15 RATIO [...] eGFR AMER. (test code 93 ML/MIN/1.73 = 04824) eGFR NON- AMER. (test 80 ML/MIN/1.73 code = 58124) CALC BUN/CREAT (test code = 15 RATIO [...] Interpretation Comments HEMOGLOBIN A1c (test code = 46346) 7.3 % HEMOGLOBIN A1c [ADDED]2018-01-05 00:00:00 Test Item Value Reference Range Interpretation Comments HEMOGLOBIN A1c (test code = 74329) 7.3 % HEMOGLOBIN A1c [ADDED]2018-01-05 00:00:00 Test Item Value Reference Range Interpretation Comments HEMOGLOBIN A1c (test code = 86362) 7.3 % LIPID PANEL [ADDED]2018-01-05 00:00:00 Test [...] eGFR AMER. (test code 93 ML/MIN/1.73 = 13158) eGFR NON- AMER. (test 80 ML/MIN/1.73 code = 36095) CALC BUN/CREAT (test code = 15 RATIO [...] eGFR AMER. (test code 93 ML/MIN/1.73 = 71854) eGFR NON- AMER. (test 80 ML/MIN/1.73 code = 38330) CALC BUN/CREAT (test code = 15 RATIO [...] Interpretation Comments HEMOGLOBIN A1c (test code = 16206) 7.3 % HEMOGLOBIN A1c [ADDED]2018-01-05 00:00:00 Test Item Value Reference Range Interpretation Comments HEMOGLOBIN A1c (test code = 62465) 7.3 % HEMOGLOBIN A1c [ADDED]2018-01-05 00:00:00 Test Item Value Reference Range Interpretation Comments HEMOGLOBIN A1c (test code = 36551) 7.3 % LIPID PANEL [ADDED]2018-01-05 00:00:00 Test [...] eGFR AMER. (test code 93 ML/MIN/1.73 = 12075) eGFR NON- AMER. (test 80 ML/MIN/1.73 code = 50676) CALC BUN/CREAT (test code = 15 RATIO [...] eGFR AMER. (test code 93 ML/MIN/1.73 = 65188) eGFR NON- AMER. (test 80 ML/MIN/1.73 code = 08644) CALC BUN/CREAT (test code = 15 RATIO [...] Interpretation Comments HEMOGLOBIN A1c (test code = 62849) 7.3 % COMPREHENSIVE METABOLIC [id number] 00:00:00 Test Item Value Reference Range Interpretation Comments GLUCOSE (test code = 2217) 109 MG/DL BUN (test code = 2208) 13 MG/DL CREATININE (test code = 2214) 0.66 MG/DL eGFR AMER. (test code 110 ML/MIN/1.73 = 07527) eGFR NON- AMER. (test 95 ML/MIN/1.73 code = 13000) CALC BUN/CREAT (test code = 20 RATIO [...] code = 2219) 27 U/L COMPREHENSIVE METABOLIC [id number] 00:00:00 Test Item Value Reference Range Interpretation Comments GLUCOSE (test code = 2217) 109 MG/DL BUN (test code = 2208) 13 MG/DL CREATININE (test code = 2214) 0.66 MG/DL eGFR AMER. (test code 110 ML/MIN/1.73 = 69755) eGFR NON- AMER. (test 95 ML/MIN/1.73 code = 96788) CALC BUN/CREAT (test code = 20 RATIO [...] code = 2219) 27 U/L COMPREHENSIVE METABOLIC [id number] 00:00:00 Test Item Value Reference Range Interpretation Comments GLUCOSE (test code = 2217) 109 MG/DL BUN (test code = 2208) 13 MG/DL CREATININE (test code = 2214) 0.66 MG/DL eGFR AMER. (test code 110 ML/MIN/1.73 = 43776) eGFR NON- AMER. (test 95 ML/MIN/1.73 code = 02103) CALC BUN/CREAT (test code = 20 RATIO [...] code = 2219) 27 U/L COMPREHENSIVE METABOLIC [id number] 00:00:00 Test Item Value Reference Range Interpretation Comments GLUCOSE (test code = 2217) 109 MG/DL BUN (test code = 2208) 13 MG/DL CREATININE (test code = 2214) 0.66 MG/DL eGFR AMER. (test code 110 ML/MIN/1.73 = 73410) eGFR NON- AMER. (test 95 ML/MIN/1.73 code = 91593) CALC BUN/CREAT (test code = 20 RATIO [...] code = 2219) 27 U/L COMPREHENSIVE METABOLIC [id number] 00:00:00 Test Item Value Reference Range Interpretation Comments GLUCOSE (test code = 2217) 109 MG/DL BUN (test code = 2208) 13 MG/DL CREATININE (test code = 2214) 0.66 MG/DL eGFR AMER. (test code 110 ML/MIN/1.73 = 29405) eGFR NON- AMER. (test 95 ML/MIN/1.73 code = 97839) CALC BUN/CREAT (test code = 20 RATIO [...] code = 2219) 27 U/L COMPREHENSIVE METABOLIC [id number] 00:00:00 Test Item Value Reference Range Interpretation Comments GLUCOSE (test code = 2217) 109 MG/DL BUN (test code = 2208) 13 MG/DL CREATININE (test code = 2214) 0.66 MG/DL eGFR AMER. (test code 110 ML/MIN/1.73 = 04246) eGFR NON- AMER. (test 95 ML/MIN/1.73 code = 11267) CALC BUN/CREAT (test code = 20 RATIO 2235) SODIUM (test code = 2231) 142 MEQ/L POTASSIUM (test code = 2228) 4.7 MEQ/L CHLORIDE (test code = 2215) 102 MEQ/L CARBON DIOXIDE (test code = 24 MEQ/L 220) CALCIUM (test code = 2209) 9.7 MG/DL PROTEIN, TOTAL (test code = 7.2 G/DL 2229) ALBUMIN (test code = 2201) 4.4 G/DL CALC GLOBULIN (test code = 2.8 G/DL 2240) CALC A/G RATIO (test code = 1.6 RATIO 2234) BILIRUBIN, TOTAL (test code = 0.6 MG/DL 220) ALKALINE PHOSPHATASE (test 70 U/L code = 2204) AST (test code = 2218) 24 U/L ALT (test code = 2219) 27 U/L COMPREHENSIVE METABOLIC [id number] 00:00:00 Test Item Value Reference Range Interpretation Comments GLUCOSE (test code = 2217) 109 MG/DL BUN (test code = 2208) 13 MG/DL CREATININE (test code = 2214) 0.66 MG/DL eGFR AMER. (test code 110 ML/MIN/1.73 = 00469) eGFR NON- AMER. (test 95 ML/MIN/1.73 code = 80489) CALC BUN/CREAT (test code = 20 RATIO [...] code = 2219) 27 U/L COMPREHENSIVE METABOLIC [id number] 00:00:00 Test Item Value Reference Range Interpretation Comments GLUCOSE (test code = 2217) 109 MG/DL BUN (test code = 2208) 13 MG/DL CREATININE (test code = 2214) 0.66 MG/DL eGFR AMER. (test code 110 ML/MIN/1.73 = 61880) eGFR NON- AMER. (test 95 ML/MIN/1.73 code = 12381) CALC BUN/CREAT (test code = 20 RATIO 2234) SODIUM (test code = 2231) 142 MEQ/L POTASSIUM (test code = 2228) 4.7 MEQ/L CHLORIDE (test code = 2215) 102 MEQ/L CARBON DIOXIDE (test code = 24 MEQ/L 2205) CALCIUM (test code = 220) 9.7 MG/DL PROTEIN, TOTAL (test code = 7.2 G/DL 2228) ALBUMIN (test code = 220) 4.4 G/DL CALC GLOBULIN (test code = 2.8 G/DL 2239) CALC A/G RATIO (test code = 1.6 RATIO 2233) BILIRUBIN, TOTAL (test code = 0.6 MG/DL 2206) ALKALINE PHOSPHATASE (test 70 U/L code = 2203) AST (test code = 2218) 24 U/L ALT (test code = 2219) 27 U/L
[2022-07-02] MEDS ORDERED: ALPRAZOLAM 0.25 MG TABLET ONE (20:40)
[2022-07-02] MEDS ORDERED: AZITHROMYCIN 250 MG TAB ONE (20:40)
[2022-07-02] MEDS ORDERED: ALBUTEROL 2.5 MG/3 ML NEB SOL ONE (20:40)
[2022-07-02] MEDS ORDERED: IPRATROPIUM BROM 0.5MG/2.5ML ONE (20:41)
[2022-07-02 20:49] LABS: Absolute Lymphocytes (CBC) 2.1 K/uL (0.7-4.9); Hematocrit 40.8 % (36.0-45.0); Lymphocytes % 25.1 % (15.3-44.8); MCV 93.4 fL (80-100); MPV 7.9 fL (7.6-11.3); RBC Red Blood Cell Count 4.37 M/uL (3.86-4.86)
--- NOTE | 2022-07-02 20:53 | RAD REPORT ---
EXAM DESCRIPTION: [facility] Single View07/02/2022 8:39 pm CLINICAL HISTORY: Chest pain COMPARISON: April 2022 FINDINGS: Lungs are moderately hyperaerated The lungs appear clear of acute infiltrate. The heart is normal size IMPRESSION: COPD without visualization of an acute abnormality
[2022-07-02 21:26] LABS: Potassium 3.4 mEq/L (3.5-5.1); Troponin High Sensitivity 11.1 pg/mL (<58.9)
--- NOTE | 2022-07-02 23:19 | EDPHYS ---
Physician Documentation [facility] Name: Dalia Reyes Age: 66 yrs Sex: Female : 1955 Arrival Date: 07/02/2022 Time: 20:09 Bed 17 Private MD: ED Physician Elier Chisholm HPI: 07/02 20:17 This 66 yrs old Female presents to ER via Unassigned with complaints of sob. bs3 20:17 The patient has shortness of breath with light activity. 66-year-old female history of bs3 CAD status post stent history of COPD on home O2 presents with difficulty breathing she notes that she developed shortness of breath with light exertion earlier today she denies fevers or chills she notes an unchanged cough denies any chest pain per EMS she had significant wheezing on arrival and hypoxia to 90 on her home O2 they give her DuoNebs and 125 methylprednisolone and brought her in she does note slight anxiety and review of systems no leg swelling no abdominal pain or anything else bothering her. Historical: - Allergies: 20:23 Benadryl; pf1 20:23 Valium; pf1 - Home Meds: 20:23 Albuterol Inhl [Active]; aspirin 81 mg Oral chew 1 tab once daily [Active]; pf1 - PMHx: 20:23 Chronic obstructive lung disease; diabetes mellitus; Emphysema; Hypercholesterolemia; pf1 Hypertensive disorder; - PSHx: 20:23 section; Heart Stents; pf1 ROS: 20:17 Constitutional: Negative for fever, chills bs3 20:17 All other systems are negative. Exam: 20:17 Constitutional: This is a well developed, well nourished patient who is awake, alert, bs3 and in no acute distress. Head/Face: Normocephalic, atraumatic. Eyes: Pupils equal round and reactive to light, extra-ocular motions intact. Lids and lashes normal. ENT: mmm, no posterior phyarngeal erythema Neck: Trachea midline, no thyromegaly, no neck stiffness Chest/axilla: no abdominalities. Cardiovascular: Regular rate and rhythm with a normal S1 and S2. symmetric pulses in upper extremities Respiratory: prolonged exp phase, wheezing on right > left Abdomen/GI: Soft, non-tender, no rebound or guarding Skin: Warm, dry with normal turgor. Normal color with no rashes, no lesions, and no evidence of cellulitis. MS/ Extremity: Pulses equal, no cyanosis. Neurovascular intact. Full, normal range of motion. Neuro: Awake and alert, GCS 15, oriented to person, place, time, and situation. Cranial nerves II-XII grossly intact. Motor strength 5/5 in all extremities. Sensory grossly intact. Psych: Awake, alert, with orientation to person, place and time. Behavior, mood, and affect are within normal limits. 23:15 ECG was reviewed by the Attending Physician. sp4 Vital Signs: 20:19 BP 160 / 68; Pulse 103; Resp 20; Temp 98.5; Pulse Ox 96% on R/A; Weight 61.23 kg; pf1 Height 5 ft. 6 in. ; Pain 0/10; 21:28 BP 140 / 83; Pulse 119; Resp 23; Pulse Ox 92% on R/A; ll3 22:35 BP 143 / 72; Pulse 121; Resp 20; Pulse Ox 90% on R/A; ll3 23:30 BP 149 / 65; Pulse 110; Resp 20; Pulse Ox 94% on R/A; Pain 0/10; pf1 20:19 Body Mass Index 21.79 (61.23 kg, 167.64 cm) pf1 20:19 Pain Scale: Adult pf1 23:30 Pain Scale: Adult pf1 MDM: 20:14 Patient medically screened. bs3 20:17 Differential diagnosis: Anemia Anxiety Reaction asthma, CHF exacerbation, Chronic bs3 Obstructive Pulmonary Disease. Data reviewed: vital signs, nurses notes. ED course: Patient with likely COPD exacerbation given the wheezing her feeling better after breathing treatment while she feels better after steroids that likely have not worked she has no signs of a PE will rule out pneumonia will get EKG we will rule out fluid overload with chest x-ray signed out pending reassessment and labs patient's desire is to try to go home today. 23:15 ED course: Patient felt improved after nebulized medication and Xanax p.o. we will sp4 provide Xanax p.o. as needed for anxiety. Patient would like to go home at this time will advise albuterol treatments every 4 hours and to continue home oxygen and also continuation of all home medications.. 07/02 20:16 Order name: CBC with Diff; Complete Time: 23:12 bs3 07/02 20:16 Order name: BMP; Complete Time: 23:12 bs3 07/02 20:16 Order name: Troponin High Sensitivity; Complete Time: 23:12 bs3 07/02 20:16 Order name: XRAY Chest (1 view); Complete Time: 23:12 bs3 07/02 20:16 Order name: EKG - Nurse/Tech; Complete Time: 20:29 bs3 EC:15 Rate is 94 beats/min. Rhythm is regular. QRS [place] is Normal. OR interval is normal. QRS sp4 interval is normal. QT interval is normal. T waves are Normal. No ST changes noted. Clinical impression: Normal ECG. Interpreted by me. Administered Medications: 20:39 Drug: ALPRAZolam PO Tablet 0.25 mg Route: PO; ll3 21:30 Follow up: Response: No adverse reaction; Marked relief of symptoms pf1 20:39 Drug: DuoNeb Nebulize (3:1) (2.5 mg - 0.5 mg) 3 ml Route: Nebulizer; ll3 21:30 Follow up: Response: No adverse reaction; Marked relief of symptoms pf1 20:39 Drug: AZITHromycin PO 500 mg Route: PO; ll3 21:30 Follow up: Response: No adverse reaction; Marked relief of symptoms pf1 Disposition Summary: 07/02/22 23:18 Discharge Ordered Location: Home sp4 Problem: chronic sp4 Symptoms: have improved sp4 Condition: Stable sp4 Diagnosis - COPD/ Chronic obstructive pulmonary disease with (acute) exacerbation sp4 - Acute anxiety, anxiety disorder, anxiety attack sp4 Followup: sp4 - With: Private Physician - When: 5 - 6 days - Reason: Recheck today's complaints Discharge Instructions: - Discharge Summary Sheet sp4 - Living With COPD sp4 Prescriptions: - Xanax 0.5 mg Oral Tablet - take 1 tablet by ORAL route every 12 hours As needed PRN anxiety; 20 tablet; sp4 Refills: 0, Product Selection Permitted Signatures: Dispatcher [employer] Minesh Dey RN RN ll3 Jaden Velasquez MD MD bs3 Michelle Ng RN RN pf1 Elier Chisholm MD MD sp4
--- NOTE | 2022-07-02 23:19 | ER ---
Nurse's Notes [facility] Name: Dalia Reyes Age: 66 yrs Sex: Female : 1955 Arrival Date: 07/02/2022 Time: 20:09 Bed 17 Private MD: Diagnosis: COPD/ Chronic obstructive pulmonary disease with (acute) exacerbation;Acute anxiety, anxiety disorder, anxiety attack Presentation: 07/02 20:19 Chief complaint: Patient states: C/O SOB x 4 days with chronic non-productive cough. LJ pf1 EMS stated gave patient A\T\A tx and 125mg Solumedrol RN CVOR. Ebola Screen: Patient denies exposure to infectious person. Patient denies travel to an Ebola-affected area in the 21 days before illness onset. Initial Sepsis Screen: Does the patient meet any 2 criteria? No. Patient's initial sepsis screen is negative. Does the patient have a suspected source of infection? No. Patient's initial sepsis screen is negative. Risk Assessment: Do you want to hurt yourself or someone else? Patient reports no desire to harm self or others. Onset of symptoms was June 28, 2022. 20:19 Method Of Arrival: EMS: [facility] pf1 20:19 Acuity: CONSTANTINO 3 pf1 Historical: - Allergies: 20:23 Benadryl; pf1 20:23 Valium; pf1 - Home Meds: 20:23 Albuterol Inhl [Active]; aspirin 81 mg Oral chew 1 tab once daily [Active]; pf1 - PMHx: 20:23 Chronic obstructive lung disease; diabetes mellitus; Emphysema; Hypercholesterolemia; pf1 Hypertensive disorder; - PSHx: 20:23 section; Heart Stents; pf1 Screenin:20 [facility] ED Fall Risk Assessment (Adult) History of falling in the last 3 months, pf1 including since admission No falls in past 3 months (0 pts) Confusion or Disorientation No (0 pts) Intoxicated or Sedated No (0 pts) Impaired Gait No (0 pts) Mobility Assist Device Used No (0 pt) Altered Elimination No (0 pt) Score/Fall Risk Level 0 - 2 = Low Risk Oriented to surroundings, Maintained a safe environment, Educated pt \T\ family on fall prevention, incl call for assistance when getting out of bed, Assessed \T\ reinforced patient's understanding of fall precautions, Provided non-skid footwear, Hourly rounding (assess needs \T\ fall precautionary measures) done, Used ambulatory aids as needed (educated on \T\ assisted with), Used gait belt as appropriate. 20:20 Abuse screen: Denies threats or abuse. Nutritional screening: No deficits noted. pf1 Tuberculosis screening: No symptoms or risk factors identified. Assessment: 20:30 General: Appears uncomfortable, Behavior is calm, cooperative. Pain: Denies pain. ll3 Neuro: Level of Consciousness is awake, alert, obeys commands, Oriented to person, place, time, situation. Respiratory: Reports shortness of breath since 3-4 days Respiratory effort is even, unlabored, Respiratory pattern is regular, symmetrical. Derm: Skin is pink, warm \T\ dry. Vital Signs: 20:19 BP 160 / 68; Pulse 103; Resp 20; Temp 98.5; Pulse Ox 96% on R/A; Weight 61.23 kg; pf1 Height 5 ft. 6 in. ; Pain 0/10; 21:28 BP 140 / 83; Pulse 119; Resp 23; Pulse Ox 92% on R/A; ll3 22:35 BP 143 / 72; Pulse 121; Resp 20; Pulse Ox 90% on R/A; ll3 23:30 BP 149 / 65; Pulse 110; Resp 20; Pulse Ox 94% on R/A; Pain 0/10; pf1 20:19 Body Mass Index 21.79 (61.23 kg, 167.64 cm) pf1 20:19 Pain Scale: Adult pf1 23:30 Pain Scale: Adult pf1 ED Course: 20:14 Patient arrived in ED. ds4 20:14 Jaden Velasquez MD is Attending Physician. bs3 20:20 Maintain EMS IV. Dressing intact. Good blood return noted. Site clean \T\ dry. Gauge \T\ pf 1 site: 20 gauge to LAC. 20:20 Patient has correct armband on for positive identification. Placed in gown. Bed in low pf1 position. Call light in reach. Side rails up X2. 20:23 Triage completed. pf1 20:41 XRAY Chest (1 view) In Process Unspecified. EDMS 23:12 Attending Physician role handed off by Jaden Velasquez MD sp4 23:12 Elier Chisholm MD is Attending Physician. sp4 23:42 No provider procedures requiring assistance completed. IV discontinued, intact, pf1 bleeding controlled, No redness/swelling at site. Pressure dressing applied. Administered Medications: 20:39 Drug: ALPRAZolam PO Tablet 0.25 mg Route: PO; ll3 21:30 Follow up: Response: No adverse reaction; Marked relief of symptoms pf1 20:39 Drug: DuoNeb Nebulize (3:1) (2.5 mg - 0.5 mg) 3 ml Route: Nebulizer; 3 21:30 Follow up: Response: No adverse reaction; Marked relief of symptoms pf1 20:39 Drug: AZITHromycin PO 500 mg Route: PO; ll3 21:30 Follow up: Response: No adverse reaction; Marked relief of symptoms pf1 Outcome: 23:18 Discharge ordered by . sp4 23:50 Patient left the ED. pf1 Signatures: Dispatcher [employer] EDMS Pk Matias ds4 Minesh Sanchez RN RN ll3 Jaden Velasquez MD MD bs3 Michelle Ng RN RN pf1 Elier Chisholm MD MD sp4 Corrections: (The following items were deleted from the chart) 23:44 23:42 Inserted saline lock: pf1 pf1 23:50 20:20 Maintain EMS IV. Dressing intact. Good blood return noted. Site clean \T\ dry. pf1 Gauge \T\ site: 20 gauge to LAC. pf1
[2022-07-02 23:56] VITALS: TEMP 98.5
[2022-07-03 00:24] VITALS: BP 149/65; O2SAT 94
== END 2022-07-02 23:50 | disposition home or self-care (01) ==
LOC: ER 20:09
DX: J44.1 Chronic obstructive pulmonary disease with (acute) exacerbation (principal); F41.0 Panic disorder [episodic paroxysmal anxiety]; F41.9 Anxiety disorder, unspecified; E11.9 Type 2 diabetes mellitus without complications; I10 Essential (primary) hypertension; Z79.82 Long term (current) use of aspirin; Z95.818 Presence of other cardiac implants and grafts; Z88.5 Allergy status to narcotic agent; Z88.8 Allergy status to other drugs, medicaments and biological substances
CPT/HCPCS: 85025; 80048; 36415; 84484; 71045; 94640; 99284; J7613; J7644

== ENCOUNTER 2022-08-03 18:17 | Emergency (ER) | payer OTHER ==
--- OUTSIDE RECORDS SUMMARY | 2022-08-03 18:35 | XMS REPORT | Continuity of Care Document ---
:[address] [facility] t Address [address] [place] [address] [address] [place] [address] Care Team Providers Name Role Phone Asked, No Pcp Primary Care Physician Unavailable Rogelio Oconnor Attending Clinician Zina DALY, Colette De León Attending Clinician Demetri Flynn MD Attending Clinician Doctor Unassigned, [place] Attending Clinician Unavailable Sarah Barkley Attending Clinician Minna Mike MD Attending Clinician Lexy Ochoa MD Attending Clinician Cihqui BOB, David Alva Attending Clinician [phone] MINNA MIKE Attending Clinician Unavailable Soila Villar DO Attending Clinician SOILA VILLAR Attending Clinician Unavailable DEMETRI FLYNN Admitting Clinician Unavailable Chiqui BOB, David Alva Admitting Clinician [phone] SOILA VILLAR Admitting Clinician Unavailable Payers [...] rs active active ity of problems problems [facility] Peripheral Periphera Problem Active 2021-12-08 Memoria nerve l nerve 03:46:04 l disease disease [place] (disorder) (disorder) Active Problem 12/08/2021 [facility] [...] Univers DRAMINE INGREDI 6-18 ity of 00:00: [place] [address] Medical Branch Diphenhy Propensi Active Anxiety 2020-0 Unive rs dramine ty to 6-18 ity of adverse 00:00: [place] reaction 00 Medical s Branch NO KNOWN Drug Active Univers ALLERGIE Class ity of S [facility] Social History Social Habit Start Date Stop Date Quantity Comments Source Gender identity [facility] Sexual [facility] History of tobacco Cigarette Smoker [facility] Exposure to Not sure University SARS-CoV-2 (event) [facility] History of Social 2021-07-16 2021-07-[address] function 00:00:00 00:00:00 Hospital Cigarettes smoked 2021-07-15 2021-07-[address] current (pack per 00:00:00 00:00:00 Hospita l day) - Reported Alcohol intake 2021-07-15 2021-07-15 Ex-drinker [facility] 00:[facility]:00 (finding) Hospital Tobacco use and 2021-07-15 2021-07-15 Smokeless [facility] exposure 00:00:00 00:00:00 tobacco non-user Hospital Cigarette 2019-12-28 2019-12-28 University of pack-years 00:00:00 00:00:00 [facility] History SDOH 2019-12-28 2019-12-28 1 University o f Alcohol Frequency 00:00:00 00:00:00 [place] [facility] History SDOH 2019-12-28 2019-12-28 99 University o f Alcohol Std Drinks 00:00:00 00:00:00 [facility] History SDOH 2019-12-28 2019-12-28 1 University o f Alcohol Binge 00:00:00 00:00:00 [place] [facility] Sex Assigned [birth year] [facility] 00:[facility]00 [facility] Smoking Status Start Date Stop Date Source Smokes tobacco daily 2021-07-15 00:00:00 [facility] Unknown if ever smoked Universit y of [facility] Medications Ordered Filled Start Stop Current Ordering [...] 9-14 00:00: 00 Dose 2-0 No Unknown 914 00:00: 00 Dose 2-0 No Unknown - [...] HOURS 00 NEEDED Dose 2022-0 No Unknown 8 00:00: 00 Lantus 2022-0 No Solostar 8-16 [...] &lt 2022-0 No 7- 00:00: 00 Dose 2-0 No Unknown 7- 00:00: 00 buspirone 2022-0 [...] Zoloft 50 2022-0 No 1mg mg tablet 6- 00:00: 00 buspirone 2022-0 No mg 15 [...] 00 &lt 2-0 No 6-14 00:00: 00 busPIRone 2021-0 Yes 15mg Q.5D Take 15 [...] Q.5D Take 25 mg M ethodi succinate -[address] XL 13:57: (two) Hospita (TOPROL-XL) 05 times a l 25 mg 24 hr day. tablet linaGLIPtin 0 Yes 5mg QD Take 5 mg M ethodi (TRADJENTA) [address] 5 mg tablet 13:57: [...] 3mL Q.25D Take 3 mL Methodi -albuteroL -[address] (DUO-NEB) 13:57: nebulizati Ho spita [...] daily with Hospita 05 breakfast. l atorvastati 2-0 Yes 80mg QD Take 80 mg Methodi [...] 13:57: mouth. Hospita tablet 05 l clopidogreL 2022-0 Yes 75mg Take 75 mg Methodi (PLAVIX) [...] daily with Hospita 05 breakfast. l atorvastati 2-0 Yes 80mg QD Take 80 mg Methodi n (LIPITOR) 6-[address] 80 MG 13:57: nightly. Hospita tablet 05 l fluticasone 2-0 Yes Inhale 1 Me thodi -umeclidin- 6-09 [...] tablet 05 (two) l times a day. Lantus 2021-0 No 10(3 Solostar 6-09 mL) U-100 00:00: Insulin 100 00 unit/mL (3 mL) subcutaneou s pen &lt 2-0 No 6-09 00:00: 00 &lt 2022-0 No 6-09 00:00: 00 Lantus 2-0 No 10(3 Solostar 6-09 mL) U-100 00:00: Insulin 100 00 unit/mL (3 mL) subcutaneou s pen &lt 2-0 No 6-09 00:00: 00 &lt 2022-0 No 6-09 00:00: 00 Lantus 2022-0 No 10(3 Solostar 6-09 mL) U-100 00:00: Insulin 100 00 unit/mL (3 mL) subcutaneou s pen &lt 2-0 No 6-09 00:00: 00 &lt 2022-0 No 6-09 00:00: 00 Lantus 2022-0 No 10(3 Solostar 6-09 mL) U-100 00:00: Insulin 100 00 unit/mL (3 mL) subcutaneou s pen &lt 2-0 No 6-09 00:00: 00 &lt 2022-0 No 6-09 00:00: 00 &lt 2022-0 No 6-06 00:00: 00 &lt 2022-0 No 6-06 00:00: 00 &lt 2022-0 No 6-06 00:00: 00 &lt 2022-0 No 6-06 00:00: 00 &lt 2022-0 No 6-06 00:00: 00 &lt 2022-0 No 6-06 00:00: 00 &lt 2022-0 No 6- 00:00: [...] 2022-0 No 6-03 00:00: 00 ProAir HFA 2-0 No 2mcg/ac 90 5-31 tuation mcg/actuati 00:00: on aerosol 00 inhaler Trelegy 2-0 No 1mcg Ellipta 100 5-31 mcg-62.5 00:00: mcg-25 mcg 00 powder for inhalation clopidogrel 2-0 No 1mg 75 mg 5-31 tablet 00:00: [...] inhaler Trelegy 2-0 No 1mcg Ellipta 100 5-31 mcg-62.5 00:00: [...] inhaler Trelegy 2-0 No 1mcg Ellipta 100 5-31 mcg-62.5 00:00: mcg-25 mcg 00 powder for inhalation clopidogrel 2-0 No 1mg 75 mg 5-31 tablet 00:00: 00 Mucinex DM 2-0 No 1mg 60 mg-1,200 5-31 mg 00:00: [...] 100 mg 5-24 tablet 00:00: 00 buspirone 2-0 No 1mg 15 mg 5-24 tablet 00:00: 00 Zoloft 50 2-0 No 1mg mg tablet 5-24 00:00: 00 Lamictal 2022-0 No 1mg 100 mg 5-24 tablet 00:00: 00 buspirone 2022-0 No 1mg 15 mg 5-24 tablet 00:00: 00 Zoloft 50 2-0 No 1mg mg tablet 5-24 00:00: 00 Lamictal 2-0 No 1mg 100 mg 5-24 tablet 00:00: [...] 2021-1 No Unknown 1-24 00:00: 00 Dose 2020- No Unknown 1-24 00:00: 00 Dose 2020- No Unknown 1-24 00:00: 00 Dose 2020- No Unknown 1-17 00:00: 00 Dose 2020- No Unknown 1-17 00:00: 00 Dose 2020- No Unknown 1-17 00:00: 00 Dose 2020- No Unknown 1-17 00:00: 00 Lamictal 2020-02 No 1mg 100 mg 1-11 tablet 00:00: 00 Dose 2020- No Unknown 1-11 00:00: 00 trazodone 2020-02 No 15mg 100 mg 1-11 tablet 00:00: 00 buspirone 2020-02 No 1mg 15 mg 1-11 tablet 00:00: 00 Dose 2020-02 No Unknown 1-11 00:00: 00 Lamictal 2020-02 No 1mg 100 mg 1-11 tablet 00:00: 00 Dose 2020-02 No Unknown 1-11 00:00: 00 trazodone 2020-02 No 15mg 100 mg 1-11 tablet 00:00: 00 buspirone 2020-02 No 1mg 15 mg 1-11 tablet 00:00: 00 Dose 2020-02 No Unknown 1-11 00:00: 00 Lamictal 2020-02 No 1mg 100 mg 1-11 tablet 00:00: 00 Dose 2020-02 No Unknown 1-11 00:00: 00 trazodone 2020-02 No 15mg 100 mg 1-11 tablet 00:00: 00 buspirone 2020-02 No 1mg 15 mg 1-11 tablet 00:00: 00 Dose 2020- No Unknown 1-11 00:00: 00 Lamictal 2020-02 No 1mg 100 mg 1-11 tablet 00:00: [...] mg 0-08 tablet 00:00: 00 Prozac 20 2020-1 No 1mg mg capsule 0-08 00:00: 00 Lamictal 1-1 No 1mg 100 mg 0-08 tablet 00:00: 00 trazodone 2020-1 No 15mg 100 mg 0-08 tablet 00:00: 00 buspirone 1-1 No 1mg 15 mg 0-08 tablet 00:00: 00 Prozac 20 2020-1 No 1mg mg capsule 0-08 00:00: 00 Lamictal 1-1 No 1mg 100 mg 0-08 tablet 00:00: 00 trazodone 1-1 No 15mg 100 mg 0-08 tablet 00:00: 00 buspirone 1-1 No 1mg 15 mg 0-08 tablet 00:00: 00 Prozac 20 2020-1 No 1mg mg capsule 0-08 00:00: 00 Lamictal 1-1 No 1mg 100 mg 0-08 tablet 00:00: 00 trazodone 2020-1 No 15mg 100 mg 0-08 tablet 00:00: 00 buspirone 1-1 No 1mg 15 mg 0-08 tablet 00:00: 00 Prozac 20 2020-1 No 1mg mg capsule 0-08 00:00: 00 Dose 1-0 No Unknown 9-20 00:00: 00 Dose 2021-0 No Unknown 9-20 00:00: 00 Dose 2021-0 No Unknown 9-20 00:00: 00 Dose 2021-0 No Unknown 9-20 00:00: 00 Dose 2021-0 No Unknown 9-20 00:00: 00 Dose 2021-0 No Unknown 9-20 00:00: 00 Dose 2021-0 No Unknown 9-20 00:00: 00 Dose 2021-0 No Unknown 9-20 00:00: 00 Lamictal 1-0 No 1mg 100 [...] 100 mg 9-13 tablet 00:00: 00 buspirone 1-0 No 1mg 15 mg 9-13 tablet 00:00: 00 Prozac 20 1-0 No 1mg mg capsule 9-13 00:00: 00 Lamictal 1-0 No 1mg 100 mg 9-13 tablet 00:00: 00 trazodone 1-0 No 15mg 100 mg 9-13 tablet 00:00: 00 buspirone 1-0 No 1mg 15 mg 9-13 tablet 00:00: 00 Prozac 20 1-0 No 1mg mg capsule 9-13 00:00: 00 Lamictal 1-0 No 1mg 100 mg 8-30 tablet 00:00: 00 trazodone 1-0 No 15mg 100 mg 8-30 tablet 00:00: 00 buspirone 2021-0 No 1mg 15 mg 8-30 tablet 00:00: 00 Prozac 20 1-0 No 1mg mg capsule 8-30 00:00: 00 Lamictal 1-0 No 1mg 100 [...] Prozac 20 2021-0 No 1mg mg capsule 8 00:00: 00 [...] No 1mg mg capsule 8 00:00: 00 Dose 2021-0 No Unknown 7- 00:00: 00 Dose 2021-0 No Unknown 7- 00:00: 00 Dose 2021-0 No Unknown 7-27 00:00: 00 Dose 2021-0 No Unknown 7-27 00:00: 00 Flovent HFA 1-0 No 1mcg/ac 110 7-08 tuation mcg/actuati 00:00: on aerosol 00 inhaler Dose 1-0 No Unknown 08-15 00:00: 00 Dose 1-0 No Unknown 08-15 00:00: 00 metoprolol 1-0 No 1mg tartrate 25 7-08 mg tablet 00:00: 00 atorvastati 1-0 No 1mg n 80 mg 7-08 tablet 00:00: 00 Dose 1-0 No Unknown 08-15 00:00: 00 Flovent HFA 1-0 No 1mcg/ac 110 7-08 tuation mcg/actuati 00:00: on aerosol 00 inhaler Dose 1-0 No Unknown 08-15 00:00: 00 Dose 1-0 No Unknown 08-15 00:00: 00 metoprolol 1-0 No 1mg tartrate 25 7-08 mg tablet 00:00: 00 atorvastati 1-0 No 1mg n 80 mg 7-08 tablet 00:00: 00 Dose 1-0 No Unknown 08-15 00:00: 00 Flovent HFA 1-0 No 1mcg/ac 110 7-08 tuation mcg/actuati 00:00: on aerosol 00 inhaler Dose 1-0 No Unknown 08-15 00:00: 00 Dose 1-0 No Unknown 08-15 00:00: 00 metoprolol 2021-0 No 1mg tartrate 25 7-08 mg tablet 00:00: 00 atorvastati 1-0 No 1mg n 80 mg 7-08 tablet 00:00: 00 Dose 1-0 No Unknown 08-15 00:00: 00 Flovent HFA 1-0 No 1mcg/ac 110 7-08 tuation mcg/actuati 00:00: on aerosol 00 inhaler Dose 1-0 No Unknown 08-15 00:00: 00 Dose 1-0 No Unknown 08-15 00:00: 00 metoprolol 2021-0 No 1mg tartrate 25 7-08 mg tablet 00:00: 00 atorvastati 1-0 No 1mg n 80 mg 7-08 tablet 00:00: 00 Dose 1-0 No Unknown 7- 00:00: 00 Lamictal 2021-0 No 1mg 100 [...] 75 mg 1-20 tablet 00:00: 00 loratadine 1-0 No 1mg 10 mg 1-20 tablet 00:00: 00 metformin 1-0 No 1mg 500 mg 1-20 tablet 00:00: 00 atorvastati 2020-0 No 1mg n 80 mg 1-20 tablet 00:00: 00 metoprolol 2020-0 No 1mg tartrate 25 1-06 mg tablet 00:00: 00 metoprolol 2020-0 No 1mg tartrate 25 1-06 mg tablet 00:00: 00 metoprolol 1-0 No 1mg tartrate 25 1-06 mg tablet 00:00: 00 metoprolol 2020-0 No 1mg tartrate 25 1-06 mg tablet 00:00: 00 Anoro 2019- No 1mcg/ac Ellipta 1-24 tuation 62.5 mcg-25 00:00: mcg/actuati 00 on powder for inhalation prednisone 2019-02 No mg 5 mg tablet 1-24 00:00: 00 Anoro 2019- No 1mcg/ac Ellipta 1-24 tuation 62.5 mcg-25 00:00: mcg/actuati 00 on powder for inhalation prednisone 2019- No mg 5 mg tablet 1-24 00:00: 00 prednisone 2019- No 1mg 20 mg 1-24 tablet 00:00: 00 prednisone 2019-1 No 1mg 20 mg 1-24 tablet 00:00: 00 Anoro 2019-1 No 1mcg/ac Ellipta 1-24 tuation 62.5 mcg-25 00:00: mcg/actuati 00 on powder for inhalation prednisone 2019- No mg 5 mg tablet 1-24 00:00: 00 prednisone 2019-1 No 1mg 20 mg 1-24 tablet 00:00: 00 Anoro 2019- No 1mcg/ac Ellipta 1-24 tuation 62.5 mcg-25 00:00: mcg/actuati 00 on powder for inhalation prednisone 2019-02 No mg 5 mg tablet 1-24 00:00: 00 prednisone 2019-1 No 1mg 20 mg 1-24 tablet 00:00: 00 metFORMIN 2019- Yes 500mg Take 500 Uni vers 500 mg 1-21 mg by ity of tablet 20:14: mouth 2 [place] 09 (two) Medical times Branch daily with meals. traZODone 2019-02 Yes 150mg Take 150 Uni vers 100 mg 1-21 mg by ity of tablet 20:14: mouth at [place] [address] bedtime. Medical Branch busPIRone 2019-02 Yes 7.5mg [...] Puff 2 ity of 44 20:14: (two) [place] mcg/actuati 09 times Medical on inhaler daily. Branch albuterol 2019-02 Yes 2{puff} Inhale 2 U nivers (PROVENTIL 1-21 Puffs ity of HFA) 90 20:14: every 6 [place] mcg/actuati (six) Medical on inhaler hours as Branc h needed for Wheezing or Shortness of Breath. atorvastati 2019-02 Yes 80mg Take 80 mg Univers n (LIPITOR) 1-21 by mouth ity of 80 mg 20:14: at [place] [address] bedtime. Medical Branch mupirocin 2 2019-02 Yes Apply to Un destiny % ointment 1-21 area(s) 2 ity of 20:14: (two) [place] [address] times Medical daily. Branch metoprolol 2019-02 Yes 12.5mg Take 12.5 Univers tartrate 25 1-21 mg by ity of mg tablet 20:14: mouth 2 (two) Medical times Branch daily. metFORMIN 2019-02 Yes 500mg Take 500 Uni vers 500 mg 1-21 mg by ity of tablet 20:14: mouth 2 (two) Medical times [place] daily with meals. traZODone 2019-02 Yes 150mg Take 150 Uni vers 100 mg 1-21 mg by ity of tablet 20:14: mouth at [place] [address] bedtime. Medical Branch busPIRone 2019-02 Yes 7.5mg [...] Puff 2 ity of 44 20:14: (two) [place] mcg/actuati 09 times Medical on inhaler daily. Branch albuterol 2019-02 Yes 2{puff} Inhale 2 U nivers (PROVENTIL 1-21 Puffs ity of HFA) 90 20:14: every 6 [place] mcg/actuati (six) Medical on inhaler hours as Branc h needed for Wheezing or Shortness of Breath. atorvastati 2019-02 Yes 80mg Take 80 mg Univers n (LIPITOR) 1-21 by mouth ity of 80 mg 20:14: at [place] [address] bedtime. Medical Branch mupirocin 2 2019-02 Yes Apply to Un destiny % ointment 1-21 area(s) 2 ity of 20:14: (two) [place] times Medical daily. Branch metoprolol 2019-02 Yes [...] by ity of tablet 20:14: mouth at [place] [address] bedtime. Medical Branch busPIRone 2019-02 Yes 7.5mg [...] Puff 2 ity of 44 20:14: (two) [place] mcg/actuati 09 times Medical on inhaler daily. Branch albuterol 2019-02 Yes 2{puff} Inhale 2 U nivers (PROVENTIL 1-21 Puffs ity of HFA) 90 20:14: every 6 [place] mcg/actuati (six) Medical on inhaler hours as Branc h needed for Wheezing or Shortness of Breath. atorvastati 2019-02 Yes 80mg Take 80 mg Univers n (LIPITOR) 1-21 by mouth ity of 80 mg 20:14: at [facility] 09 bedtime. Medical Branch mupirocin 2 2019-02 Yes Apply to Un destiny % ointment 1-21 area(s) 2 ity of 20:14: (two) [place] times Medical daily. Branch metoprolol 2019-02 Yes [...] Until Discontinu ed, Routine clopidogreL 2019-02 Yes [id number] 75mg Take 1 Univers 75 mg 1-21 tablet by ity of tablet 00:00: mouth [place] 00 daily. Medical Branch aspirin 81 2019-02 Yes [id number] 81mg Take 1 Univers mg chewable 1-21 tablet by ity of tablet 00:00: mouth [place] 00 daily. Medical Branch predniSONE 2019- Yes [id number] 40mg Take 2 U nivers 20 mg 1-21 tablets by ity of tablet 00:00: mouth [place] 00 daily. Medical Branch clopidogreL 2019-02 Yes [id number] 75mg Take 1 Univers 75 mg 1-21 tablet by ity of tablet 00:00: mouth [place] 00 daily. Medical Branch aspirin 81 2019-02 Yes [id number] 81mg Take 1 Univers mg chewable 1-21 tablet by ity of tablet 00:00: mouth [place] 00 daily. Medical Branch predniSONE 2019-02 Yes [id number] 40mg Take 2 U nivers 20 mg 1-21 tablets by ity of tablet 00:00: mouth [place] 00 daily. Medical Branch aspirin 81 2019-02 Yes [id number] 81mg Take 1 Univers mg chewable 1-21 tablet by ity of tablet 00:00: mouth [place] 00 daily. Medical Branch clopidogreL 2019-02- No 75mg Take 75 mg Univers 75 mg 02-27 by mouth ity of tablet 22:51: 00:00 daily. [place] 35 :00 Medical Branch clopidogreL 2019-02- No Oral, Univ ers (PLAVIX) 02-27 TITRATE - ity o f tablet 21:25: 21:25 FOR [place] 13 :13 PROCEDURE Medical USE, 1 Branch dose, Starting Wed12/29/19 at 1525, Until Wed12/29/19 at 1525, Routine ticagrelor 2019-02- No Oral, Unive rs (BRILINTA) 02-27 TITRATE - ity of tablet 20:57: 20:57 FOR [place] 39 :39 PROCEDURE Medical USE, 1 Branch [...] 2020- No Slow IV Un destiny (SUBLIMAZE 02-27 [...] Until Discontinu ed, Routine predniSONE 2019- Yes [id number] 40mg Take 2 U nivers 20 mg 1-20 tablets by ity of tablet 00:00: mouth [place] 00 daily. Medical Branch clopidogreL 2019-02 Yes [id number] 75mg Take 1 Univers 75 mg 1-20 tablet by ity of tablet 00:00: mouth [place] 00 daily. Medical Branch predniSONE 2019-02- No [id number] 40mg Take 2 Univers 20 mg 02-27 tablets by ity of tablet 00:00: 00:00 mouth [place] 00 :00 daily. Medical Branch predniSONE 2019-02- No [id number] 40mg Take 2 Univers 20 mg -12-27 tablets by ity of tablet 00:00: 00:00 [...] 12/28/19 Bran ch mL at 1245, Routine
membership director approving Restricted medication : FLOYDJUSTINEMARGARTIADEJAN Saline 2019-02- No 6mL 6 mL, Univers [...] [place] mg 00 First dose Medical on [facility] Branch 12/28/19 at 0900, Until Discontinu ed, Routine
membership director approving Restricted medication : DONMOSTKURTISCorwin CHRISTINA WARD aspirin 2019-02 Yes 81mg 81 mg, Univers [...] e, Dosing and Testing: &nbs p;FOR [facility] ONLY &nbs p; - [...] ity of 0.02 % 10:00: , Q4H, [place] nebulizer 00 First dose Medi piedad solution [...] 02-26 Oral, ity of (TYLENOL) 08:36: Q6HPRN, [place] tablet 650 38 Starting Medic al mg [place] Branch 12/28/19 at 0236, Until Discontinu ed, Routine, Pain (scale 1-3) nicotine 2019-02 Yes 1{patch 1 Patch, Un destiny (NICODERM) 02-26 } Topical, ity o f 21 mg/24 hr 06:15: Administer [place] patch 1 00 over 24 Medical Patch Hours, Branch Q24H, First dose on [place] 12/28/19 at 0015, Until Discontinu ed, Routine iohexol 2019-02 2020- No 100mL 100 mL, Unive rs (OMNIPAQUE 02-26 Intravenou it y of 350 05:00: 05:00 s, ONCE, 1 [place] BULK-100 00 :00 dose, Wed Medica l mL) 12/27/19 Branch injection at 2300, 100 mL Routine methylPREDN 2019-02 2020- No 40mg 40 mg, IV Univers ISolone sod 02-26 Piggyback, i ty of succ 02:45: 01:47 ONCE, 1 [place] (SOLU-MEDRO 00 :00 dose, Wed Med ical L (PF)) 12/27/19 Branch injection at 2045, 40 mg STAT metoprolol 2019-02 2020- No [id number] 12.5mg Take 0.5 Univers tartrate 25 -19 -19 tablets by i ty of mg tablet 00:00: 00:00 mouth 2 [place] :[place] (two) Medical times Branch daily. albuterol-i 2019-02- No [id number] 1{puff} Inhale 1 Univers pratropium -19 11-19 Puff 4 ity of 20-100 00:00: 00:00 (four) [place] mcg/actuati 00 :00 times Medical on inhaler daily. Branch metoprolol 2019-02- No [id number] 12.5mg Take 0.5 Univers tartrate 25 -27 12-19 tablets by i ty of mg tablet 00:00: 00:00 mouth 2 [place] 00 :00 (two) Medical times Branch daily. metoprolol 2019-02- No [id number] 12.5mg Take 0.5 Univers tartrate 25 -27 12-19 tablets by i ty of mg tablet [...] 7.5 mg 1-16 tablet 00:00: 00 trazodone 2020-1 No 15mg 100 mg 1-16 tablet 00:00: [...] 20 mg 0-20 tablet 00:00: 00 prednisone 2020-1 No mg 5 mg tablet 0-20 00:00: [...] 1 Nabil as mg 00 :00 dose, [facility] 07/27/19 at Branch 1730, Routine buspirone [...] 00:00: 00 ipratropium 2020-0 No 3mg 0.5 -16 base)/3 mg-albutero 00:00: mL l 3 mg (2.5 00 mg base)/3 mL nebulizatio n soln prednisone 2020-0 No 1mg 5 mg tablet 16 00:00: 00 ipratropium 2020-0 No 3mg 0.5 -16 base)/3 mg-albutero 00:00: mL l 3 mg (2.5 00 mg base)/3 mL nebulizatio n soln prednisone 2020-0 No 1mg 5 mg tablet 16 00:00: 00 ipratropium 2020-0 No 3mg 0.5 -16 base)/3 mg-albutero 00:00: mL l 3 mg (2.5 00 mg base)/3 mL nebulizatio n soln buspirone 2020-0 No 1mg 7.5 mg 1-06 tablet 00:00: 00 Lamictal 2020-0 No 1mg 100 mg 1-06 tablet 00:00: 00 trazodone 2020-0 No 15mg 100 mg 1-06 tablet 00:00: 00 Prozac 10 2020-0 No 1mg mg capsule 106 00:00: 00 buspirone 2020-0 No 1mg 7.5 [...] 7.5 mg 1-06 tablet 00:00: 00 Lamictal 2019-0 No 1mg 100 mg 1-06 tablet 00:00: 00 trazodone 2019-0 No 15mg 100 mg 1-06 tablet 00:00: [...] 7.5 mg 2-17 tablet 00:00: 00 Lamictal 2018-1 No 1mg 100 mg 2-17 tablet 00:00: [...] 1mg mg capsule 2-17 00:00: 00 buspirone 2018-1 No 1mg 7.5 mg 2-17 tablet 00:00: [...] 1mg mg capsule 2-17 00:00: 00 azithromyci 2019- No mg n 250 mg 2-05 tablet [...] Prozac 10 2019-0 No 1mg mg capsule 7- 00:00: 00 Lamictal 2019-0 No 1mg 100 mg 7-09 tablet 00:00: 00 buspirone 2019-0 No 1mg 7.5 mg 7-09 tablet 00:00: 00 trazodone 2019-0 No 1mg 100 mg 7-09 tablet 00:00: 00 Prozac 10 2019-0 No 1mg mg capsule 7- 00:00: 00 buspirone 5 2019-0 No 1mg [...] 00:00: mcg/dose 00 powder for inhalation Spiriva 2017-1 No 1mcg/ac Respimat 1-05 tuation 2.5 00:00: [...] No known No Univers medications ity of [facility] Vital Signs Vital Name Observation Time Observation Value Comments Source Systolic blood 2019-12-30 135 mm[Hg] University [facility] 17:24:00 [facility] Diastolic blood 2019-12-30 72 mm[Hg] University o f pressure 17:24:00 [facility] Heart rate 2019-12-30 78 /min University of 17:24:00 [facility] Body temperature 2019-12-30 35.61 Annemarie University of 17:24:00 [facility] Branch Respiratory rate 2019-12-30 18 /min University of 17:24:00 [facility] Oxygen saturation 2019-12-30 91 /min University of in Arterial blood 17:24:00 [facility] piedad by Pulse oximetry Branch Body weight 2019-12-30 57.924 kg pt's actual wt University of 10:03:00 on regular [place] Medical scale Branch BMI 2019-12-30 20.61 kg/m2 University of 10:03:00 [facility] Body height 2019-12-29 167.6 cm University of 20:18:00 [facility] Systolic blood 2019-12-30 135 mm[Hg] University of pressure 17:24:00 [facility] Diastolic blood 2019-12-30 72 mm[Hg] University o f pressure 17:24:00 [facility] Heart rate 2019-12-30 78 /min University of 17:24:00 [facility] Body temperature 2019-12-30 35.61 Annemarie University of 17:24:00 [facility] Respiratory rate 2019-12-30 18 /min University of 17:24:00 [facility] Oxygen saturation 2019-12-30 91 /min University of in Arterial blood 17:24:00 [facility] by Pulse oximetry Branch Body weight 2019-12-30 57.924 kg pt's actual wt University of 10:03:00 on regular [place] Medical scale Branch BMI 2019-12-30 20.61 kg/m2 University of 10:03:00 [facility] Body height 2019-12-29 167.6 cm University of 20:18:00 [facility] Systolic blood 2019-07-27 120 mm[Hg] University of pressure 21:35:00 [facility] Branch Diastolic blood 2019-07-27 79 mm[Hg] University o f pressure 21:35:00 [facility] Branch Heart rate 2019-07-27 93 /min University of 21:35:00 [facility] Respiratory rate 2019-07-27 12 /min University of 21:35:00 [facility] Oxygen saturation 2019-07-27 95 /min University of in Arterial blood 21:35:00 [place] Medi piedad by Pulse oximetry Branch Body temperature 2019-07-27 37.5 Annemarie University of 21:15:00 [facility] Body height 2019-07-27 167.6 cm University of 21:15:00 [facility] Body weight 2019-07-27 55.792 kg University of 21:15:00 [facility] BMI 2019-07-27 19.85 kg/m2 University of 21:15:00 [facility] Systolic blood 2019-07-27 120 mm[Hg] University of pressure 21:35:00 [facility] Diastolic blood 2019-07-27 79 mm[Hg] University o f pressure 21:35:00 [facility] Heart rate 2019-07-27 93 /min University of 21:35:00 [facility] Respiratory rate 2019-07-27 12 /min University of 21:35:00 [facility] Oxygen saturation 2019-07-27 95 /min [facility] in Arterial blood 21:35:00 [facility] by Pulse oximetry Branch Body temperature 2019-07-27 37.5 Annemarie University of 21:15:00 [facility] Body height 2019-07-27 167.6 cm University of 21:15:00 [facility] Body weight 2019-07-27 55.792 kg University of 21:15:00 [facility] BMI 2019-07-27 19.85 kg/m2 University of 21:15:00 [facility] BP Systolic 2021-12-05 137 mm[Hg] 13:31:00 BP [...] 2021-07-17 15:08:00 Heart rate 2021-07-16 93 /min [facility] 17:12:00 [facility] Systolic blood 2021-07-16 156 mm[Hg] [facility] pressure 16:50:46 Hospital Diastolic blood 2021-07-16 83 mm[Hg] [facility] pressure 16:50:46 Hospital Body temperature 2021-07-16 36.72 Annemarie [facility] 16:50:46 Hospital Respiratory rate 2021-07-16 20 /min [facility] 16:50:46 Hospital Oxygen saturation 2021-07-16 100 /min [facility] in Arterial blood 16:50:46 Hospital by Pulse [...] LACTIC ACID LEVEL, 2021-07-15 14:19:00 Colette Izaguirre [facility] SEPSIS - NOW AND REPEAT 2X EVERY 3 HOURS POC GLUCOSE 2021-07-15 14:05:00 Demetri Flynn [facility] LACTIC ACID LEVEL, 2021-07-15 11:47:00 [facility] REPEAT 2X EVERY 3 HOURS ECG 12-LEAD 2021-07-15 09:34:19 Zina [facility] XR CHEST 1 VW PORTABLE 2021-07-15 08:37:27 Zina [facility] ZZCOVID-19 ANTI-SPIKE 2021-07-15 08:35:00 [facility] IGG ANTIBODY TITER ZZCOVID-19 SEROLOGY 2021-07-15 08:35:00 abran [facility] PATIENT SURVEILLANCE LACTIC ACID LEVEL, 2021-07-15 08:35:00 [facility] SEPSIS - NOW AND REPEAT 2X EVERY 3 HOURS CBC WITH PLATELET AND 2021-07-15 08:35:00 [facility] DIFFERENTIAL COMPREHENSIVE METABOLIC 2021-07-15 08:35:00 [facility] PANEL TROPONIN T 2021-07-15 08:35:00 [facility] ESTIMATED GFR 2021-07-15 08:35:00 [facility] EXTERNAL PROVIDER 2020-01-17 06:01:00 Doctor Unassigned, No [facility] RECORDS Name Medical Branch POCT GLUCOSE (AUTOMATED) 2019-12-30 15:25:00 [facility] 2019-12-30 10:10:00 Octavio [facility] BASIC METABOLIC PANEL 2019-12-30 10:10:00 Octavio Larios [facility] (NA, K, CL, CO2, Medical Branch GLUCOSE, BUN, CREATININE, CA) CBC WITH DIFF 2019-12-30 10:10:00 Harriet [facility] POCT GLUCOSE (AUTOMATED) 2019-12-30 01:50:00 [facility] PO[facility]SE (AUTOMATED) 2019-12-29 23:32:[address] [facility]OUT[facility] & RHYTHM 2019-12-29 14:11:36 Mariya [facility] POCT GLUCOSE (AUTOMATED) 2019-12-29 14:00:00 Lexy [facility]cho[facility] MAGNESIUM 2019-12-29 10:58:00 Mariya [facility] BASIC METABOLIC PANEL 2019-12-29 10:58:00 Mariya [facility] (NA, K, CL, CO2, Medical Branch GLUCOSE, BUN, CREATININE, CA) ACTIVATED PARTIAL 2019-12-29 10:58:00 Mariya [facility] EXTERNAL PROVIDER 2019-12-29 06:01:00 Doctor Unassigned, [facility] RECORDS Name [facility] POCT GLUCOSE (AUTOMATED) 2019-12-29 04:16:00 Lexy Ochoa [facility] ACTIVATED PARTIAL 2019-12-29 00:06:00 Mariya [facility] TROPONIN I 2019-12-28 19:46:[address] [facility] LIPID PANEL 2019-12-28 19:46:00 Mariya [facility] ([id number])(TOTAL [facility] CHOLESTEROL, TRIGLYCERIDES, HDL) ECHO ROUTINE W/DOPPLER 2019-12-28 16:44:30 Efrain Meraz [facility] HB ECG ROUTINE & RHYTHM 2019-12-28 13:42:07 Mariya [facility] PROTHROMBIN TIME / INR 2019-12-28 12:24:00 Mariya [facility] ACTIVATED PARTIAL 2019-12-28 12:24:00 Mariya [facility] TROPONIN I 2019-12-28 10:08:[address] [facility] [address] CHEST PULMONARY 2019-12-28 04:44:55 Minna Mike [facility] ANGIOGRAM Medical Branch XR CHEST 1 VW 2019-12-28 02:07:34 Minna Mike [facility] COVID-19 (ID NOW RAPID 2019-12-28 01:50:00 Minna Mike [facility] TESTING) Medical Branch HB ECG ROUTINE & RHYTHM 2019-12-28 01:49:31 Minna Mike [facility] TROPONIN I 2019-12-28 01:49:00 Minna Mike [facility] THYROID STIMULATING 2019-12-28 01:49:00 Mariya [facility] HORMONE Medical Branch BASIC METABOLIC PANEL 2019-12-28 01:49:00 Minna Mike [facility] (NA, K, CL, CO2, Medical Branch GLUCOSE, BUN, CREATININE, CA) COMP. METABOLIC PANEL 2019-12-28 01:49:00 Minna Mike [facility] ([id number]) Medical Branch CBC WITH DIFF 2019-12-28 01:49:00 Minna Mike [facility] GLYCOSYLATED HEMOGLOBIN 2019-12-28 01:49:00 Mariya [facility] (A1C) [facility] [place] N-TERMINAL PRO-BNP 2019-12-28 01:49:00 Mariya [facility] XR CHEST 1 VW 2019-07-27 22:14:30 Soila Villar [facility] COVID-19 (ID NOW RAPID 2019-07-27 21:43:00 Soila Villar [facility] TESTING) Medical Branch TROPONIN I 2019-07-27 21:38:00 Soila Villar [facility] HEPATIC FUNCTION PANEL 2019-07-27 21:38:00 [id number] (ALB,T.PRO,BILI Medical Branch T,BU/BC,ALT,AST,ALK PHOS) BASIC METABOLIC PANEL 2019-07-27 21:38:00 Soila Villar [facility] (NA, K, CL, CO2, Medical Branch GLUCOSE, BUN, CREATININE, CA) CBC WITH DIFFERENTIAL 2019-07-27 21:38:[address] [facility] PROTHROMBIN TIME / INR 2019-07-27 21:38:00 [facility] N-TERMINAL PRO-BNP 2019-07-27 21:38:00 [facility] 2019-07-27 21:21:22 Soila Villar [facility] NOTICE OF PRIVACY 2019-07-27 20:58:21 Doctor Unassigned, No [facility] PRACTICES Name [facility] Plan of Care Planned Activity Planned Date Details Comments Source Future Scheduled 2022-07-27 Screening for [facility] Test 18:12:02 malignant neoplasm of colon (procedure) [code = 573323452] Future Scheduled 2022-07-27 Screening for [facility] Test 18:12:02 malignant neoplasm of colon (procedure) [code = 882698205] Future Scheduled 2022-07-27 Screening for [facility] Test 18:12:02 malignant neoplasm of colon (procedure) [code = 435645293] Future Scheduled 2022-07-27 COVID-19 VACCINE (#1) [facility] Test 18:12:02 [code = COVID-19 VACCINE (#1)] Future Scheduled 2022-07-27 65+ [facility]CCAL [facility]:12:02 VACCINE (1 - PCV) [code = 65+ PNEUMOCOCCAL VACCINE (1 - PCV)] Future Scheduled 2022-07-27 Hepatitis C screening [facility] Test 18:12:02 (procedure) [code = 515897849] Future Scheduled 2022-07-27 BREAST CANCER [facility] Test 18:12:02 SCREENING [code = BREAST CANCER SCREENING] Future Scheduled 2022-07-27 [facility] Test 18:12:02 malignant neoplasm of colon (procedure) [code = 171896358] Future Scheduled 2022-07-27 [facility] Test 18:12:02 malignant neoplasm of colon (procedure) [code = 501358379] Future Scheduled 2022-07-27 SHINGLES [facility]INES ([facility] 18:12:02 of 2) [code = SHINGLES VACCINES (1 of 2)] Future Scheduled 2022-07-27 INFLUENZA VACCINE [facility] 18:12:02 [code = INFLUENZA VACCINE] Future Scheduled 2022-05-27 COVID-19 VACCINE (#1) [facility] Test 11:13:43 [code = COVID-19 VACCINE (#1)] Future Scheduled 2022-05-27 65+ [facility]OCCAL [facility] 11:13:43 VACCINE (1 - PCV) [code = 65+ PNEUMOCOCCAL VACCINE (1 - PCV)] Future Scheduled 2022-05-27 Hepatitis C screening [facility] Test 11:13:43 (procedure) [code = 315012098] Future Scheduled 2022-05-27 BREAST CANCER [facility] Test 11:13:43 SCREENING [code = BREAST CANCER SCREENING] Future Scheduled 2022-05-27 COLONOSCOPY SCREENING [facility] Test 11:13:43 [code = COLONOSCOPY SCREENING] Future Scheduled 2022-05-27 SHINGLES VACCINES (1 Met [facility] Test 11:13:43 of 2) [code = SHINGLES VACCINES (1 of 2)] Future Scheduled 2022-05-27 INFLUENZA VACCINE [facility] Test 11:13:43 [code = INFLUENZA VACCINE] Future Scheduled 2022-05-27 COVID-19 VACCINE (#1) [facility] Test 11:13:43 [code = COVID-19 VACCINE (#1)] Future Scheduled 2022-05-27 65+ [facility]OCOCCAL [facility] Test 11:13:43 VACCINE (1 - PCV) [code = 65+ PNEUMOCOCCAL VACCINE (1 - PCV)] Future Scheduled 2022-05-27 Hepatitis C screening [facility] Test 11:13:43 (procedure) [code = 164885385] Future Scheduled 2022-05-27 BREAST CANCER [facility] Test 11:13:43 SCREENING [code = BREAST CANCER SCREENING] Future Scheduled 2022-05-27 COLONOSCOPY SCREENING [facility] Test 11:13:43 [code = COLONOSCOPY SCREENING] Future Scheduled 2022-05-27 SHINGLES VACCINES (1 [facility] Test 11:13:43 of 2) [code = SHINGLES VACCINES (1 of 2)] Future Scheduled 2022-05-27 INFLUENZA VACCINE [facility] Test 11:13:43 [code = INFLUENZA VACCINE] Future Scheduled 2022-01-20 COVID-19 VACCINE (#1) [facility] Test 11:08:40 [code = COVID-19 VACCINE (#1)] Future Scheduled 2022-01-20 65+ [facility]OCOCCAL [facility] Test 11:08:40 VACCINE (1 - PCV) [code = 65+ PNEUMOCOCCAL VACCINE (1 - PCV)] Future Scheduled 2022-01-20 Hepatitis C screening [facility] Test 11:08:40 (procedure) [code = 015068459] Future Scheduled 2022-01-20 BREAST CANCER [facility] Test 11:08:40 SCREENING [code = BREAST CANCER SCREENING] Future Scheduled 2022-01-20 COLONOSCOPY SCREENING [facility] Test 11:08:40 [code = COLONOSCOPY SCREENING] Future Scheduled 2022-01-20 SHINGLES VACCINES (1 [facility] Test 11:08:40 of 2) [code = SHINGLES VACCINES (1 of 2)] Future Scheduled 2022-01-20 INFLUENZA VACCINE [facility] Test 11:08:40 [code = INFLUENZA VACCINE] Future Scheduled 2022-01-20 COVID-19 VACCINE (#1) [facility] Test 11:08:40 [code = COVID-19 VACCINE (#1)] Future Scheduled 2022-01-20 65+ [facility]OCOCCAL [facility] Test 11:08:40 VACCINE (1 - PCV) [code = 65+ PNEUMOCOCCAL VACCINE (1 - PCV)] Future Scheduled 2022-01-20 Hepatitis C screening [facility] Test 11:08:40 (procedure) [code = 296283294] Future Scheduled 2022-01-20 BREAST CANCER [facility] Test 11:08:40 SCREENING [code = BREAST CANCER SCREENING] Future Scheduled 2022-01-20 COLONOSCOPY SCREENING [facility] Test 11:08:40 [code = COLONOSCOPY SCREENING] Future Scheduled 2022-01-20 SHINGLES VACCINES (1 [facility] Test 11:08:40 of 2) [code = SHINGLES VACCINES (1 of 2)] Future Scheduled 2022-01-20 INFLUENZA VACCINE [facility] Test 11:08:40 [code = INFLUENZA VACCINE] Future Scheduled 2022-01-20 COVID-19 VACCINE (#1) [facility] Test 11:08:40 [code = COVID-19 VACCINE (#1)] Future Scheduled 2022-01-20 65+ [facility]OCOCCAL [facility] Test 11:08:40 VACCINE (1 - PCV) [code = 65+ PNEUMOCOCCAL VACCINE (1 - PCV)] Future Scheduled 2022-01-20 Hepatitis C screening [facility] Test 11:08:40 (procedure) [code = 274339863] Future Scheduled 2022-01-20 BREAST CANCER [facility] Test 11:08:40 SCREENING [code = BREAST CANCER SCREENING] Future Scheduled 2022-01-20 COLONOSCOPY SCREENING [facility] Test 11:08:40 [code = COLONOSCOPY SCREENING] Future Scheduled 2022-01-20 SHINGLES VACCINES (1 Met [facility] Test 11:08:40 of 2) [code = SHINGLES VACCINES (1 of 2)] Future Scheduled 2022-01-20 INFLUENZA VACCINE [facility] Test 11:08:40 [code = INFLUENZA VACCINE] Future Scheduled 2021-12-09 HEPATITIS B VACCINES Met [facility] Test 11:50:42 (1 of 3 - 3-dose series) [code = HEPATITIS B VACCINES (1 of 3 - 3-dose series)] Future Scheduled 2021-12-09 COVID-19 VACCINE (#1) [facility] Test 11:50:42 [code = COVID-19 VACCINE (#1)] Future Scheduled 2021-12-09 65+ [facility]CCAL [facility]:42 VACCINE (1 - PCV) [code = 65+ PNEUMOCOCCAL VACCINE (1 - PCV)] Future Scheduled 2021-12-09 Hepatitis C screening [facility] Test 11:50:42 (procedure) [code = 545726768] Future Scheduled 2021-12-09 Screening for [facility] Test 11:50:42 malignant neoplasm of cervix (procedure) [code = 882113326] Future Scheduled 2021-12-09 BREAST CANCER [facility] Test 11:50:42 SCREENING [code = BREAST CANCER SCREENING] Future Scheduled 2021-12-09 COLONOSCOPY SCREENING [facility] Test 11:50:42 [code = COLONOSCOPY SCREENING] Future Scheduled 2021-12-09 SHINGLES VACCINES (1 Met [facility] Test 11:50:42 of 2) [code = SHINGLES VACCINES (1 of 2)] Future Scheduled 2021-12-09 INFLUENZA VACCINE [facility] Test 11:50:42 [code = INFLUENZA VACCINE] Future Scheduled 2021-10-11 HEPATITIS B VACCINES [facility] Test 10:23:54 (1 of 3 - 3-dose series) [code = HEPATITIS B VACCINES (1 of 3 - 3-dose series)] Future Scheduled 2021-10-11 COVID-19 VACCINE (#1) [facility] Test 10:23:54 [code = COVID-19 VACCINE (#1)] Future Scheduled 2021-10-11 65+ [facility]CCAL [facility] 10:23:54 VACCINE (1 - PCV) [code = 65+ PNEUMOCOCCAL VACCINE (1 - PCV)] Future Scheduled 2021-10-11 Hepatitis C screening [facility] Test 10:23:54 (procedure) [code = 916359605] Future Scheduled 2021-10-11 Screening for [facility] Test 10:23:54 malignant neoplasm of cervix (procedure) [code = 549815205] Future Scheduled 2021-10-11 BREAST CANCER [facility] Test 10:23:54 SCREENING [code = BREAST CANCER SCREENING] Future Scheduled 2021-10-11 COLONOSCOPY SCREENING [facility] Test 10:23:54 [code = COLONOSCOPY SCREENING] Future Scheduled 2021-10-11 SHINGLES VACCINES (1 Met [facility] Test 10:23:54 of 2) [code = SHINGLES VACCINES (1 of 2)] Future Scheduled 2021-10-11 INFLUENZA VACCINE [facility] Test 10:23:54 [code = INFLUENZA VACCINE] Future Scheduled 2021-10-11 HEPATITIS B VACCINES [facility] Test 10:23:54 (1 of 3 - 3-dose series) [code = HEPATITIS B VACCINES (1 of 3 - 3-dose series)] Future Scheduled 2021-10-11 COVID-19 VACCINE (#1) [facility] Test 10:23:54 [code = COVID-19 VACCINE (#1)] Future Scheduled 2021-10-11 65+ [facility]CCAL [facility] 10:23:54 VACCINE (1 - PCV) [code = 65+ PNEUMOCOCCAL VACCINE (1 - PCV)] Future Scheduled 2021-10-11 Hepatitis C screening [facility] Test 10:23:54 (procedure) [code = 140638526] Future Scheduled 2021-10-11 Screening for [facility] Test 10:23:54 malignant neoplasm of cervix (procedure) [code = 741745291] Future Scheduled 2021-10-11 BREAST CANCER [facility] Test 10:23:54 SCREENING [code = BREAST CANCER SCREENING] Future Scheduled 2021-10-11 COLONOSCOPY SCREENING [facility] Test 10:23:54 [code = COLONOSCOPY SCREENING] Future Scheduled 2021-10-11 SHINGLES VACCINES ([facility] Test 10:23:54 of 2) [code = SHINGLES VACCINES (1 of 2)] Future Scheduled 2021-10-11 INFLUENZA VACCINE [facility] Test 10:23:54 [code = INFLUENZA VACCINE] Goal Plan of Care Note [code = 56603-7] Goal Plan of Care Note [code = 78461-2] Goal Plan of Care Note [code = 60744-4] Goal Plan of Care Note [code = 84624-7] Goal Plan of Care Note [code = 85776-5] Goal Plan of Care Note [code = 69293-7] Goal Plan of Care Note [code = 03177-9] Goal Plan of Care Note [code = 47949-3] Goal Plan of Care Note [code = 26614-2] Goal Plan of Care Note [code = 56264-8] Goal Plan of Care Note [code = 85591-5] Goal Plan of Care Note [code = 64526-0] Goal Plan of Care Note [code = 36842-4] Goal Plan of Care Note [code = 71087-3] Goal Plan of Care Note [code = 55683-8] Goal Plan of Care Note [code = 08877-5] Goal Plan of Care Note [code = 09058-6] Goal Plan of Care Note [code = 07657-1] Goal Plan of Care Note [code = 41751-0] Goal Plan of Care Note [code = 35145-9] Goal Plan of Care Note [code = 90453-6] Goal Plan of Care Note [code = 04091-3] Goal Plan of Care Note [code = 75458-6] Goal Plan of Care Note [code = 20807-7] Goal Plan of Care Note [code = 49570-5] Goal Plan of Care Note [code = 57833-9] Goal Plan of Care Note [code = 17310-5] Goal Plan of Care Note [code = 28511-6] Goal Plan of Care Note [code = 12356-3] Goal Plan of Care Note [code = 41987-5] Goal Plan of Care Note [code = 04619-5] Goal Plan of Care Note [code = 01406-5] Goal Plan of Care Note [code = 55169-2] Goal Plan of Care Note [code = 69441-3] Goal Plan of Care Note [code = 39207-8] Goal Plan of Care Note [code = 91887-9] Goal Plan of Care Note [code = 81611-3] Goal Plan of Care Note [code = 42785-4] Goal Plan of Care Note [code = 75692-4] Goal Plan of Care Note [code = 30143-1] Goal Plan of Care Note [code = 58939-4] Goal Plan of Care Note [code = 09725-1] Goal Plan of Care Note [code = 07958-2] Goal Plan of Care Note [code = 59549-1] Goal Plan of Care Note [code = 89893-5] Goal Plan of Care Note [code = 03768-7] Goal Plan of Care Note [code = 93824-9] Goal Plan of Care Note [code = 38828-4] Goal Plan of Care Note [code = 92050-2] Goal Plan of Care Note [code = 53704-9] Goal Plan of Care Note [code = 63639-3] Goal Plan of Care Note [code = 54575-9] Goal Plan of Care Note [code = 23223-0] Goal Plan of Care Note [code = 80098-6] Goal Plan of Care Note [code = 06255-3] Goal Plan of Care Note [code = 04194-3] Goal Plan of Care Note [code = 84891-4] Goal Plan of Care Note [code = 82628-2] Goal Plan of Care Note [code = 79784-2] Goal Plan of Care Note [code = 09694-9] Goal Plan of Care Note [code = 44940-5] Goal Plan of Care Note [code = 46653-6] Goal Plan of Care Note [code = 27996-7] Goal Plan of Care Note [code = 58268-1] Goal Plan of Care Note [code = 87223-6] Goal Plan of Care Note [code = 38951-5] Goal Plan of Care Note [code = 98794-9] Goal Plan of Care Note [code = 37631-5] Goal Plan of Care Note [code = 93779-5] Goal Plan of Care Note [code = 71118-7] Goal Plan of Care Note [code = 27276-7] Goal Plan of Care Note [code = 95767-8] Goal Plan of Care Note [code = 63520-0] Goal Plan of Care Note [code = 95393-2] Goal Plan of Care Note [code = 34645-5] Goal Plan of Care Note [code = 22486-4] Goal Plan of Care Note [code = 79737-7] Goal Plan of Care Note [code = 42833-7] Goal Plan of Care Note [code = 53084-0] Goal Plan of Care Note [code = 55420-4] Goal Plan of Care Note [code = 37100-3] Goal Plan of Care Note [code = 62327-6] Goal Plan of Care Note [code = 45713-9] Goal Plan of Care Note [code = 73647-7] Goal Plan of Care Note [code = 52932-3] Goal Plan of Care Note [code = 03954-4] Goal Plan of Care Note [code = 17845-0] Goal Plan of Care Note [code = 38041-9] Goal Plan of Care Note [code = 02492-8] Goal Plan of Care Note [code = 77214-3] Goal Plan of Care Note [code = 63309-1] Goal Plan of Care Note [code = 10728-3] Goal Plan of Care Note [code = 16963-6] Goal Plan of Care Note [code = 26403-8] Goal Plan of Care Note [code = 04488-3] Goal Plan of Care Note [code = 46634-7] Goal Plan of Care Note [code = 74657-0] Goal Plan of Care Note [code = 83833-5] Goal Plan of Care Note [code = 59189-1] Goal Plan of Care Note [code = 70418-4] Goal Plan of Care Note [code = 18369-8] Goal Plan of Care Note [code = 67020-6] Goal Plan of Care Note [code = 40801-5] Goal Plan of Care Note [code = 93825-3] Goal Plan of Care Note [code = 66552-7] Goal Plan of Care Note [code = 62120-4] Goal Plan of Care Note [code = 52145-6] Goal Plan of Care Note [code = 15268-0] Goal Plan of Care Note [code = 91022-2] Goal Plan of Care Note [code = 58787-1] Goal Plan of Care Note [code = 99513-1] Goal Plan of Care Note [code = 65453-4] Goal Plan of Care Note [code = 83350-7] Goal Plan of Care Note [code = 48889-8] Goal Plan of Care Note [code = 70484-0] Goal Plan of Care Note [code = 53622-1] Goal Plan of Care Note [code = 53651-2] Goal Plan of Care Note [code = 61550-1] Goal Plan of Care Note [code = 84442-1] Goal Plan of Care Note [code = 49829-8] Goal Plan of Care Note [code = 08715-7] Goal Plan of Care Note [code = 26083-9] Goal Plan of Care Note [code = 70283-6] Goal Plan of Care Note [code = 78667-4] Goal Plan of Care Note [code = 14631-8] Goal Plan of Care Note [code = 07606-3] Goal Plan of Care Note [code = 50519-8] Goal Plan of Care Note [code = 53126-8] Goal Plan of Care Note [code = 23864-3] Goal Plan of Care Note [code = 76011-8] Goal Plan of Care Note [code = 42320-3] Goal Plan of Care Note [code = 56310-5] Goal Plan of Care Note [code = 71957-7] Goal Plan of Care Note [code = 60747-4] Goal Plan of Care Note [code = 36969-3] Goal Plan of Care Note [code = 17720-0] Goal Plan of Care Note [code = 47681-5] Goal Plan of Care Note [code = 52384-7] Goal Plan of Care Note [code = 39258-0] Goal Plan of Care Note [code = 21863-3] Goal Plan of Care Note [code = 49758-5] Goal Plan of Care Note [code = 03403-8] Goal Plan of Care Note [code = 22830-3] Goal Plan of Care Note [code = 91788-8] Goal Plan of Care Note [code = 51106-5] Goal Plan of Care Note [code = 32155-9] Goal Plan of Care Note [code = 08438-2] Goal Plan of Care Note [code = 13491-3] Goal Plan of Care Note [code = 62679-4] Goal Plan of Care Note [code = 37817-8] Goal Plan of Care Note [code = 69460-6] Goal Plan of Care Note [code = 80127-0] Goal Plan of Care Note [code = 70553-5] Goal Plan of Care Note [code = 90068-0] Goal Plan of Care Note [code = 99180-5] Goal Plan of Care Note [code = 55655-4] Encounters Start End Encounter Admission Attending Care Care Encounter Source Date/Time Date/Time Type Type Clinicians Facility Department ID 2022-05-27 2022-05-27 Outpatient SFA SFA [id number] Yasir 11:13:39 11:13:39 0419 F Yusef 2022-04-30 2022-04-30 Outpatient SFA SFA [id number] Yasir 09:49:15 09:49:15 0323 F Yusef 2022-04-23 2022-04-23 Outpatient SFA SFA [id number] Yasir 09:58:52 09:58:52 0316 F Yusef 2021-12-11 2021-12-11 Outpatient SFA SFA [id number] Yasir 09:25:26 09:25:26 1103 F Yusef 2021-12-05 2021-12-06 Outpatient nullFlavo MNA [id number] Memoria 13:15:00 04:59:59 r Neurology 01 natasha [place] Quachann 2021-12-05 2021-12-06 Outpatient nullFlavo MNA [id number] Memoria 13:15:00 04:59:59 r Neurology 01 natasha Day 2021-12-05 2021-12-05 Outpatient Anastasia MISCHER MISCHER [id number] 08:15:00 23:59:59 Rogelio Varghese Rodríguez 2021-12-05 2021-12-05 Outpatient MHIE IE [id number] Memoria 08:15:00 08:15:00 Varghese kaur Shay 2021-12-05 2021-12-05 Outpatient [id number] 0mps24-6 00:00:00 00:00:00 Visit 3230-9415 059-4058-8 -1q85-6v2 [id number] 6029-10-25 2021-12-02 Ambulatory nullFlavo MNA [id number] Memoria 13:15:00 13:15:00 Pre-Reg r Neurology 00 l Jose Day 2021-12-02 2021-12-02 Ambulatory nullFlavo MNA [id number] [facility] 13:15:00 13:15:00 Pre-Reg r Neurology 00 l Jose Quachann 2021-12-02 2021-12-02 Outpatient [facility] [id number] Memoria 08:15:00 08:15:00 00 l [place] 2021-12-02 2021-12-02 [facility] [id number] 08:15:00 08:15:00 Rogelio 00 Rodríguez 2021-11-06 2021-11-06 Outpatient [id number] [id number] 00:00:00 00:00:00 Visit 78ef-41c6 8ef-41c6-8 -8750-b17 750-b175d4 [id number] 9c05e3 2021-09-09 2021-09-09 Outpatient [id number]- [id number] 2i5igp-t 00:00:00 00:00:00 Visit dd71-07k7 a85-60p8-1 -8625-285 [id number] 1262u2x2h 2e6a5e 2021-08-15 2021-08-15 Outpatient [id number] 00:00:00 00:00:00 Visit 1578-4e21 578-4e21-b -r02w-8e2 [id number] 7174dedcc 4dedcc 2021-07-15 2021-07-16 [facility] Zina Colette Karlee 1.2.840.1 [id number] Methodi 01:59:00 13:57:00 Encounter Demetri Flynn 22293.1.[address] 3.430.2.7 Hospit a .3.166705 l .8 2021-07-15 2021-07-15 Travel 1.2.840.1 1.2.272.817 2000 [id number] Methodi 00:00:00 00:00:[address] 3.430.2.7 0.2.7.3.698 [facility] .3.968924 084.8 l .8 2020-01-17 2020-01-17 Orders Doctor DIONISIO 1.2.840.114 [id number] 00:00:00 00:00:00 Only Unassigned, ASHLEY 350.1.13.10 [facility] 4.2.7.2.686 [id number] [id number] 2020-01-17 2020-01-17 Orders Doctor DIONISIO 1.2.840.114 [id number] Univers 00:00:00 00:00:00 Only Unassigned, ASHLEY 350.1.13.10 ity of [place] [facility] 4.2.7.2.686 Nabil as [id number] [facility] 009 Branch 2020-01-01 2020-01-01 Transition Ree Barkley 1.2.840.114 [id number] 00:00:00 00:00:00 of Care Sarah Carvalho 350.1.13.10 [place] 4.2.7.2.686 [id number] [facility] 2020-01-01 2020-01-01 Transition Ree Barkley 1.2.840.114 [id number] Univers 00:00:00 00:00:00 of Care Sarah Carvalho 350.1.13.10 ity of [place] 4[place]2.7.2.686 [place] [id number] [facility] 403 Branch 2019-12-27 2019-12-30 [facility] 1.[facility].840. 114 [id number] 18:54:00 14:13:00 Encounter Lexy Ochoay 350.1.13.10 Hospital 4.2.7.2.686 [id number] 090 2019-12-27 2019-12-30 [facility] 1.2.840. 114 [id number] [facility] 18:54:00 14:13:00 Encounter Don Kassiecorwin Christina Torres 350.1.13.[address] [facility] 4.2.7.2.68 6 [place] [id number] [place] [id number] [place] 2019-12-27 2019-12-27 Emergency [facility] [id number] Univers 18:54:00 18:54:00 MINNA [facility] 2019-07-27 2019-07-27 Emergency [facility] 1.2.840.114 [id number] 16:26:45 18:20:00 Soilara Emily Espinosa 350.1.13.10 [place] 4.2.7.2.686 [place] [id number] [facility] 2019-07-27 2019-07-27 Emergency [facility] 1.2.840.114 [id number] Univers 16:26:45 18:20:00 Soila Espinosa 350.1.13.10 ity [facility] 4.2.7.2.686 [facility] [id number] [address] 2019-07-27 2019-07-27 Emergency X [facility] ERT [id number] Univers 16:26:45 18:20:00 [facility] Results Test Description Test Time Test Comments Results Result Comments Source LACTIC ACID, PLASMA 2022-06-04 08:17:31 Test Item Value Reference Range Interpretation Comme nts LACTIC ACID, TEST NOT PERFORMED 4.5-19.8 Unable to perform testing, improper PLASMA (test MG/DL specimen receiv ed.Charges adjusted as code = 2056) applicable. [facility] has important pathology staff changes effective 04/08/2022. New pathology staff will provide uninter rupted, excellent patient care and clinic al consultation. See URL: [email or web address]. UNLESS OTHERWISE INDIC ATED, ALL TESTING PERFORMED AT [facility], [facility]. [address] [place] [address] CHRISTAL GONSALVES DIRECTOR: Noelle ALVARSE SIMI NUMBER [id number] CAP ACCREDITATION N O. [id number] LACTIC ACID, [id number] 11:58:30 Test Item Value Reference Range Interpretation Comments LACTIC ACID, 24.2 MG/DL 4.5-19.8 H [facility] has im portant PLASMA (test code pathology staff changes = 2056) effective 04/08. New pathology s taff will provide uninter rupted, excellent patie nt care and clinical consultation. S ee URL: [email or web address]. UNLESS OTHERWISE INDICATED, ALL TESTING PERFORMED AT INICAL PATHOLOGY [employer]. [address] [place] [address] TRACY JUANITO DIRECTOR: FIONA MEADE M.D. [place] NUMBER [id number] CAP ACCREDITATION N O. [id number] COMPREHENSIVE METABOLIC [id number] 06:16:32 Test Item Value Reference Range Interpretation Comments GLUCOSE (test code = 323 MG/DL 70-99 H 2216) BUN (test code = 11 MG/DL 8-23 2207) CREATININE (test 0.71 MG/DL 0.60-1.30 code = 2214) eGFR (2020 CKD-EPI) 94 ML/MIN/1.73 >60 (test code = 37160) CALC BUN/CREAT (test 15 RATIO 6-28 code = 2235) SODIUM (test code = 143 MEQ/L 313-170 5011) POTASSIUM (test code 3.5 MEQ/L 3.5-5.4 = 222) CHLORIDE (test code 100 MEQ/L 95-107 = [...] PHOSPHATASE 72 U/L 40-142 (test code = 2204) AST (test code = 31 U/L 2217) ALT (test code = 37 U/L 40 2218) LACTIC ACID, [id number] 13:51:21 Test Item Value Reference Range Interpretation Comments LACTIC ACID, PLASMA (test code = 19.8 MG/DL 4.5-19.8 2056) TSH REFLEX TO FREE [id number] 05:35:06 Test Item Value Reference Range Interpretation Comments TSH REFLEX TO 1.810 UIU/ML 0.400-4.100 [facility] has i mportant FREE T4 (test pathology staf f changes code = 2834) effective 04/08. New patholo gy staff will provide uninterrupted, excellent patient care an d clinical consul tation. See URL: [email or web address]. UNLESS OTHERWISE INDICATED, ALL TESTING PERFORMED AT [facility] [employer] [address] [place] [address] 4 LABORATORY DIRE CTOR: FLACA JOHNSON M.D. [place] NUMBER [id number] [facility] [id number] HEMOGLOBIN [id number] 04:53:38 Test Item Value Reference Range Interpretation Comments HEMOGLOBIN A1c (test 9.5 % 4.2-5.6 H AMERIC AN DIABETES code = 92613) ASSOCIATION IDELINES FOR HGB A1C: PREDIABETES/INC REASED [...] ATE TESTING OR LABORATORY C ONSULTATION. LIPID [id number] 03:59:11 Test Item Value Reference Range Interpretation [...] MOREINFORMATION , SEE CLIENT ANNOUNCE MENT AT [email or web address] RATIO LDL/HDL 0.98 RATIO <3.22 (test code = 2238) COMPREHENSIVE METABOLIC [id number] 03:59:11 Test Item Value Reference Range Interpretation Comments GLUCOSE (test code = 275 MG/DL 70-99 H 2216) BUN (test code = 17 MG/DL 8-23 2207) CREATININE (test 0.68 MG/DL 0.60-1.30 code = 2214) eGFR (2020 CKD-EPI) 96 ML/MIN/1.73 >60 (test code = 14397) CALC BUN/CREAT (test 25 RATIO 6-28 code = 2235) SODIUM (test code = 139 MEQ/L 595-126 7167) POTASSIUM (test code 3.9 MEQ/L 3.5-5.4 = 2227) CHLORIDE (test code 98 MEQ/L 95-107 = 2214) CARBON DIOXIDE (test 28 MEQ/L 19-31 code = 2206) CALCIUM (test code = 9.5 MG/DL 8.5-10.5 2208) PROTEIN, TOTAL (test 6.1 G/DL 6.1-8.3 code = 222) ALBUMIN (test code = 3.9 G/DL 3.5-5.2 [...] 2204) AST (test code = 26 U/L -40 2217) ALT (test code = 38 U/L 5-40 2218) [id number] 03:56:08 Test Item Value Reference Range Interpretation Comments MAGNESIUM (test code = 2226) 1.9 MG/DL 1.6-2.6 LACTIC ACID, [id number] 11:30:59 Test Item Value Reference Range Interpretation Comments LACTIC ACID, PLASMA (test code = 12.0 MG/DL 4.5-19.8 2056) [id number] 03:42:38 Test Item Value Reference Range Interpretation Comments MAGNESIUM (test code = 2226) 1.9 MG/DL 1.6-2.6 COMPREHENSIVE METABOLIC [id number] 03:42:00 Test Item Value Reference Range Interpretation Comments GLUCOSE (test code = 193 MG/DL 70-99 H 2216) BUN (test code = 14 MG/DL 8-23 2207) CREATININE (test 0.68 MG/DL 0.60-1.30 code = 2214) eGFR (2020 CKD-EPI) 97 ML/MIN/1.73 >60 (test code = 18689) CALC BUN/CREAT (test 21 RATIO 6-28 code = 2235) SODIUM (test code = 140 MEQ/L 969-959 2661) POTASSIUM (test code 4.4 MEQ/L 3.5-5.4 = 2227) CHLORIDE (test code 102 MEQ/L 95-107 = 2214) CARBON DIOXIDE (test 27 MEQ/L 19-31 code = 2206) CALCIUM (test code = 9.0 MG/DL 8.5-10.5 2208) PROTEIN, TOTAL (test 5.9 G/DL 6.1-8.3 L code = 2229) ALBUMIN (test code = 3.8 G/DL 3.5-5.2 [...] code = 25 U/L 5-40 2218) IRON, [id number] 03:42:00 Test Item Value Reference Range Interpretation Comments IRON, SERUM (test 21 UG/DL 37-145 L UNLESS OT HERWISE code = 2222) INDICATED, ALL TESTING PERFORMED ATCLI NICAL PATHOLOGY [employer]. [address] [place] [id number] [place] [address] DIRECTOR: TITA PARIKH M.D. CLIA NUMBER [id number] CAP ACCREDITATION N O. [id number] HEMOGLOBIN [id number] 03:08:42 Test Item Value Reference Range Interpretation Comments HEMOGLOBIN A1c (test 8.0 % 4.2-5.6 H AMERIC AN DIABETES code = 14929) ASSOCIATION IDELINES FOR HGB A1C: PREDIABETES/INC REASED [...] LABORATORY C ONSULTATION. CBC W/AUTO DIFF WITH [id number] 01:59:57 Test Item Value Reference Range Interpretation [...] RBCS 0.00 K/UL 0.00-0.11 (test code = 60400) COMPREHENSIVE METABOLIC PANEL [ADDED]2021-09-16 00:00:00 Test Item Value Reference Range Interpretation Comments GLUCOSE (test code = 2217) 193 MG/DL BUN (test code = 2208) 14 MG/DL CREATININE (test code = 2214) 0.68 MG/DL eGFR (2020 CKD-EPI) (test code 97 ML/MIN/1.73 = 37510) CALC BUN/CREAT (test code = 21 RATIO [...] (2020 CKD-EPI) (test code 97 ML/MIN/1.73 = 25627) CALC BUN/CREAT (test code = 21 RATIO [...] Interpretation Comments HEMOGLOBIN A1c (test code = 51091) 8.0 % HEMOGLOBIN A1c [ADDED]2021-09-16 00:00:00 Test Item Value Reference Range Interpretation Comments HEMOGLOBIN A1c (test code = 65591) 8.0 % HEMOGLOBIN A1c [ADDED]2021-09-16 00:00:00 Test Item Value Reference Range Interpretation Comments HEMOGLOBIN A1c (test code = 84399) 8.0 % CBC W/AUTO DIFF WITH PLATELETS [...] NUCLEATED RBCS (test code = 0.00 K/UL 19893) CBC W/AUTO DIFF WITH PLATELETS [ADDED]2021-09-16 00:00:00 [...] NUCLEATED RBCS (test code = 0.00 K/UL 74350) CBC W/AUTO DIFF WITH PLATELETS [ADDED]2021-09-16 00:00:00 [...] NUCLEATED RBCS (test code = 0.00 K/UL 63988) IRON, SERUM [ADDED]2021-09-16 00:00:00 Test Item Value [...] (2020 CKD-EPI) (test code 97 ML/MIN/1.73 = 03397) CALC BUN/CREAT (test code = 21 RATIO [...] (2020 CKD-EPI) (test code 97 ML/MIN/1.73 = 78450) CALC BUN/CREAT (test code = 21 RATIO [...] Interpretation Comments HEMOGLOBIN A1c (test code = 01752) 8.0 % HEMOGLOBIN A1c [ADDED]2021-09-16 00:00:00 Test Item Value Reference Range Interpretation Comments HEMOGLOBIN A1c (test code = 70738) 8.0 % HEMOGLOBIN A1c [ADDED]2021-09-16 00:00:00 Test Item Value Reference Range Interpretation Comments HEMOGLOBIN A1c (test code = 42417) 8.0 % CBC W/AUTO DIFF WITH PLATELETS [...] NUCLEATED RBCS (test code = 0.00 K/UL 22255) CBC W/AUTO DIFF WITH PLATELETS [ADDED]2021-09-16 00:00:00 [...] NUCLEATED RBCS (test code = 0.00 K/UL 43999) CBC W/AUTO DIFF WITH PLATELETS [ADDED]2021-09-16 00:00:00 [...] NUCLEATED RBCS (test code = 0.00 K/UL 96561) IRON, SERUM [ADDED]2021-09-16 00:00:00 Test Item Value [...] (2020 CKD-EPI) (test code 97 ML/MIN/1.73 = 49583) CALC BUN/CREAT (test code = 21 RATIO [...] (2020 CKD-EPI) (test code 97 ML/MIN/1.73 = 96604) CALC BUN/CREAT (test code = 21 RATIO [...] Interpretation Comments HEMOGLOBIN A1c (test code = 29067) 8.0 % HEMOGLOBIN A1c [ADDED]2021-09-16 00:00:00 Test Item Value Reference Range Interpretation Comments HEMOGLOBIN A1c (test code = 67850) 8.0 % HEMOGLOBIN A1c [ADDED]2021-09-16 00:00:00 Test Item Value Reference Range Interpretation Comments HEMOGLOBIN A1c (test code = 85451) 8.0 % CBC W/AUTO DIFF WITH PLATELETS [...] NUCLEATED RBCS (test code = 0.00 K/UL 99513) CBC W/AUTO DIFF WITH PLATELETS [ADDED]2021-09-16 00:00:00 [...] NUCLEATED RBCS (test code = 0.00 K/UL 79895) CBC W/AUTO DIFF WITH PLATELETS [ADDED]2021-09-16 00:00:00 [...] NUCLEATED RBCS (test code = 0.00 K/UL 07351) IRON, SERUM [ADDED]2021-09-16 00:00:00 Test Item Value [...] (2020 CKD-EPI) (test code 97 ML/MIN/1.73 = 45410) CALC BUN/CREAT (test code = 21 RATIO [...] (2020 CKD-EPI) (test code 97 ML/MIN/1.73 = 16482) CALC BUN/CREAT (test code = 21 RATIO 2235) SODIUM (test code = 2231) 140 MEQ/L POTASSIUM (test code = 2228) 4.4 MEQ/L CHLORIDE (test code = 2215) 102 MEQ/L CARBON DIOXIDE (test code = 27 MEQ/L 2205) CALCIUM (test code = 2209) 9.0 MG/DL PROTEIN, TOTAL (test code = 5.9 G/DL 2228) ALBUMIN (test code = 220) 3.8 G/DL CALC GLOBULIN (test code = [...] Interpretation Comments HEMOGLOBIN A1c (test code = 82945) 8.0 % HEMOGLOBIN A1c [ADDED]2021-09-16 00:00:00 Test Item Value Reference Range Interpretation Comments HEMOGLOBIN A1c (test code = 89494) 8.0 % HEMOGLOBIN A1c [ADDED]2021-09-16 00:00:00 Test Item Value Reference Range Interpretation Comments HEMOGLOBIN A1c (test code = 35951) 8.0 % CBC W/AUTO DIFF WITH PLATELETS [...] NUCLEATED RBCS (test code = 0.00 K/UL 34850) CBC W/AUTO DIFF WITH PLATELETS [ADDED]2021-09-16 00:00:00 [...] NUCLEATED RBCS (test code = 0.00 K/UL 01673) CBC W/AUTO DIFF WITH PLATELETS [ADDED]2021-09-16 00:00:00 [...] NUCLEATED RBCS (test code = 0.00 K/UL 29978) IRON, SERUM [ADDED]2021-09-16 00:00:00 Test Item Value [...] code = 12.0 MG/DL 2056) LACTIC ACID, [id number] 14:02:14 Test Item Value Reference Range Interpretation [...] code = 15.2 MG/DL 2056) COMPREHENSIVE METABOLIC [id number] 04:08:01 Test Item Value Reference Range Interpretation Comments GLUCOSE (test code = 104 MG/DL 70-99 H 2216) BUN (test code = 17 MG/DL 8-23 2207) CREATININE (test 0.73 MG/DL 0.60-1.30 code = 2214) eGFR (2020 CKD-EPI) 91 >60 (test code = 39610) ML/MIN/1.73 CALC BUN/CREAT (test 23 RATIO 6-28 code = 2235) SODIUM (test code = 141 MEQ/L 116-155 0821) POTASSIUM (test code 4.7 MEQ/L 3.5-5.4 = [...] [Automated message] (test code = 2207) The [employer] which generated this result transmitted ref erence [...] ATCLINICAL PATH OLOGY LABORATORIES, [place]. [address] [facility] [place] [address] [facility] DIRECTOR: TITA PARIKH M.D. CLIA NUMBER [id number] CAP ACCREDITATION N O. [id number] COMPREHENSIVE METABOLIC PANEL [ADDED]2021-08-19 00:00:00 Test Item Value Reference Range Interpretation Comments GLUCOSE (test code = 2217) 104 MG/DL BUN (test code = 2208) 17 MG/DL CREATININE (test code = 2214) 0.73 MG/DL eGFR (2020 CKD-EPI) (test code 91 ML/MIN/1.73 = 97697) CALC BUN/CREAT (test code = 23 RATIO [...] (2020 CKD-EPI) (test code 91 ML/MIN/1.73 = 24107) CALC BUN/CREAT (test code = 23 RATIO [...] (2020 CKD-EPI) (test code 91 ML/MIN/1.73 = 86742) CALC BUN/CREAT (test code = 23 RATIO [...] (2020 CKD-EPI) (test code 91 ML/MIN/1.73 = 75368) CALC BUN/CREAT (test code = 23 RATIO [...] (2020 CKD-EPI) (test code 91 ML/MIN/1.73 = 81302) CALC BUN/CREAT (test code = 23 RATIO [...] (2020 CKD-EPI) (test code 91 ML/MIN/1.73 = 78584) CALC BUN/CREAT (test code = 23 RATIO [...] (2020 CKD-EPI) (test code 91 ML/MIN/1.73 = 91503) CALC BUN/CREAT (test code = 23 RATIO 2235) SODIUM (test code = 2231) 141 MEQ/L POTASSIUM (test code = 2228) 4.7 MEQ/L CHLORIDE (test code = 2215) 100 MEQ/L CARBON DIOXIDE (test code = 29 MEQ/L 6) CALCIUM (test code = 2209) 9.9 MG/DL [...] (2020 CKD-EPI) (test code 91 ML/MIN/1.73 = 53828) CALC BUN/CREAT (test code = 23 RATIO [...] RATIO 2233) BILIRUBIN, TOTAL (test code = 0.2 MG/DL 2206) ALKALINE PHOSPHATASE (test 65 U/L code = 2204) AST (test code = 2218) 26 U/L ALT (test code = 2219) 25 U/L POC [id number] 16:05:00 Test Item Value Reference Range Interpretation Comments POC glucose (test code 354 mg/dL 65-99 HH Opera tor Name: Celeste = 24319-7) [employer]wachukwuDevice ID: [id number] Lab Interpretation Abnormal (test code = 45819-9) [facility] [id number] 16:05:00 Test Item Value Reference Range Interpretation Comments POC glucose (test code 354 mg/dL 65-99 HH Opera tor Name: Celeste = 16355-6) [employer]ukwuDevice ID: [id number] Lab Interpretation Abnormal (test code = 36543-8) [facility] [id number] 16:05:00 Test Item Value Reference Range Interpretation Comments POC glucose (test code 354 mg/dL 65-99 HH Opera tor Name: Celeste = 29825-2) [employer]wuDevice ID: [id number] Lab Interpretation Abnormal (test code = 33931-5) [facility] [id number] 16:05:00 Test Item Value Reference Range Interpretation Comments POC glucose (test code 354 mg/dL 65-99 HH Opera tor Name: Celeste = 04375-3) [employer]wuDevice ID: [id number] Lab Interpretation Abnormal (test code = 67954-8) [facility] [id number] 16:05:00 Test Item Value Reference Range Interpretation Comments POC glucose (test code 354 mg/dL 65-99 HH Opera tor Name: Celeste = 33110-0) [employer]wu[employer] ID: [id number] Lab Interpretation Abnormal (test code = 73207-0) [facility] [id number] 16:05:00 Test Item Value Reference Range Interpretation Comments POC glucose (test code 354 mg/dL 65-99 HH Opera tor Name: Celeste = 00689-2) [employer]wu[employer] ID: [id number] Lab Interpretation Abnormal (test code = 07862-9) [facility] [id number] 16:05:00 Test Item Value Reference Range Interpretation Comments POC glucose (test code 354 mg/dL 65-99 Opera tor Name: Celeste = 03441-4) NwachukwuDevice ID: [id number] Lab Interpretation Abnormal (test code = 80700-4) [facility]2022-06-08 16:05:00 Test Item Value Reference Range Interpretation Comments POC glucose (test code 354 mg/dL 65-99 Opera tor Name: Celeste = 95429-2) NwachukwuDevice ID: [id number] Lab Interpretation Abnormal (test code = 97744-1) [facility] 12 [id number] 01:04:59 Test Item Value Reference Range Interpretation Comments Ventricular rate (test code = 253) Atrial rate (test code = 255) ID interval (test code = 266) QRSD interval (test code = 260) QT interval (test code = 264) QTC interval (test code = 265) P axis 1 (test code = 267) QRS axis 1 (test code = 268) T wave axis (test code = 270) EKG impression (test Normal sinus code = 273) rhythm-Normal ECG-No previous ECGs available-Electronica lly Signed By Andrey Sosa MD ([id number]) on 07/15/2021 8:04:56 PM [address]2022-06-08 01:04:59 Test Item Value Reference Range Interpretation Comments Ventricular rate (test code = 253) Atrial rate (test code = 255) ID interval (test code = 266) QRSD interval [...] Sosa MD ([id number]) on 07/15/2021 8:04:56 PM [address]2022-06-08 01:04:59 Test Item Value Reference Range Interpretation Comments Ventricular rate (test 79 code = 253) Atrial rate (test code = 79 255) ID interval (test code = 132 266) QRSD [...] Sosa MD ([id number]) on 07/15/2021 8:04:56 PM [address]2022-06-08 01:04:59 Test Item Value Reference Range Interpretation Comments Ventricular rate (test 79 code = 253) Atrial rate (test code = 79 255) ID interval (test code = 132 266) QRSD [...] Sosa MD ([id number]) on 07/15/2021 8:04:56 PM [address]2022-06-08 01:04:59 Test Item Value Reference Range Interpretation Comments Ventricular rate (test 79 code = 253) Atrial rate (test code = 79 255) ID interval (test code = 132 266) QRSD [...] Sosa MD ([id number]) on 07/15/2021 8:04:56 PM [place] [address] [id number] 01:04:59 Test Item Value Reference Range Interpretation Comments Ventricular rate (test 79 code = 253) Atrial rate (test code = 79 255) ID interval (test code = 132 266) QRSD [...] Sosa MD ([id number]) on 07/15/2021 8:04:56 PM [address]2022-06-08 01:04:59 Test Item Value Reference Range Interpretation Comments Ventricular rate (test 79 code = 253) Atrial rate (test code = 79 255) ID interval (test code = 132 266) QRSD [...] Sosa MD ([id number]) on 07/15/2021 8:04:56 PM [place] [address] [id number] 01:04:59 Test Item Value Reference Range Interpretation Comments Ventricular rate (test code = 253) Atrial rate (test code = 255) ID interval (test code = 266) QRSD interval (test code = 260) QT interval (test code = 264) QTC interval (test code = 265) P axis 1 (test code = 267) QRS axis 1 (test code = 268) T wave axis (test code = 270) EKG impression (test Normal sinus code = 273) rhythm-Normal ECG-No previous ECGs available-Electronica lly Signed By Andrey Sosa MD ([id number]) on 07/15/2021 8:04:56 PM [facility], [id number] 14:02:59 Test Item Value Reference Range Interpretation Comments LACTIC ACID, 26.7 MG/DL 4.5-19.8 H UNLESS OTHERW ISE PLASMA (test code INDICATED, ALL TESTING = 2056) PERFORMED ATCLI NICAL PATHOLOGY [facility]. [address] [place] [id number] [place] [address] DIRECTOR: TITA PARIKH M.D. IA NUMBER [id number] CAP ACCREDITATION N O. [id number] LACTIC ACID, [id number] 00:00:00 Test Item Value Reference Range Interpretation Comments LACTIC ACID, PLASMA (test code = 26.7 MG/DL 2056) LACTIC ACID, [id number] 00:00:00 Test Item Value Reference Range Interpretation Comments LACTIC ACID, PLASMA (test code = 26.7 MG/DL 2056) LACTIC ACID, [id number] 00:00:00 Test Item Value Reference Range Interpretation Comments LACTIC ACID, PLASMA (test code = 26.7 MG/DL 2056) LACTIC ACID, [id number] 00:00:00 Test Item Value Reference Range Interpretation Comments LACTIC ACID, PLASMA (test code = 26.7 MG/DL 2056) LACTIC ACID, [id number] 00:00:00 Test Item Value Reference Range Interpretation Comments LACTIC ACID, PLASMA (test code = 26.7 MG/DL 2056) LACTIC ACID, [id number] 00:00:00 Test Item Value Reference Range Interpretation Comments LACTIC ACID, PLASMA (test code = 26.7 MG/DL 2056) LACTIC ACID, [id number] 00:00:00 Test Item Value Reference Range Interpretation Comments LACTIC ACID, PLASMA (test code = 26.7 MG/DL 2056) LACTIC ACID, [id number] 00:00:00 Test Item Value Reference Range Interpretation Comments LACTIC ACID, PLASMA (test code = 26.7 MG/DL 2056) LACTIC ACID, [id number] 10:45:50 Test Item Value Reference Range Interpretation Comments LACTIC ACID, 27.1 MG/DL 4.5-19.8 H UNLESS OTHERWI SE PLASMA (test code INDICATED, ALL TESTING = 2056) PERFORMED ATCLI NICAL PATHOLOGY [facility]. [address] [place] [id number] [place] [address] DIRECTOR: TITA PARIKH M.D. CLIA NUMBER [id number] CAP ACCREDITATION N O. [id number] HEMOGLOBIN [id number] 05:02:08 Test Item Value Reference Range Interpretation Comments HEMOGLOBIN A1c (test 8.3 % 4.2-5.6 H AMERIC AN DIABETES code = 88924) ASSOCIATION IDELINES FOR HGB A1C: PREDIABETES/INC REASED [...] TESTING OR LABORATORY C ONSULTATION. COMPREHENSIVE METABOLIC [id number] 03:45:06 Test Item Value Reference Range Interpretation Comments GLUCOSE (test code = 397 MG/DL 70-99 H 2216) BUN (test code = 21 MG/DL 8-2207) CREATININE (test 0.75 MG/DL 0.60-1.30 code = 2214) eGFR (2020 CKD-EPI) 88 ML/MIN/1.73 >60 (test code = 35326) CALC BUN/CREAT (test 28 RATIO 6-28 code = 2235) SODIUM (test code = 140 MEQ/L 057-025 2834) POTASSIUM (test code 4.2 MEQ/L 3.5-5.4 = [...] code = 25 U/L 5-40 2218) LIPID [id number] 03:45:06 Test Item Value Reference Range Interpretation [...] MOREINFORMATION , SEE CLIENT ANNOUNCE MENT AT [email or web address] LDL/HDL 0.93 RATIO <3.22 (test code = 2238) LIPID [id number] 00:00:00 Test Item Value Reference Range Interpretation Comments CHOLESTEROL (test code = 2210) 134 MG/DL TRIGLYCERIDES (test code = 2232) 81 MG/DL HDL CHOLESTEROL (test code = 2220) 61 MG/DL CALC LDL CHOL (test code = 2237) 57 MG/DL RISK RATIO LDL/HDL (test code = 0.93 RATIO 2238) HEMOGLOBIN [id number] 00:00:00 Test Item Value Reference Range Interpretation Comments HEMOGLOBIN A1c (test code = 55185) 8.3 % HEMOGLOBIN [id number] 00:00:00 Test Item Value Reference Range Interpretation Comments HEMOGLOBIN A1c (test code = 72699) 8.3 % HEMOGLOBIN [id number] 00:00:00 Test Item Value Reference Range Interpretation Comments HEMOGLOBIN A1c (test code = 85349) 8.3 % LACTIC ACID, PLASMA [ADDED]2021-07-09 00:00:00 Test Item Value Reference Range Interpretation Comments LACTIC ACID, PLASMA (test code = 27.1 MG/DL 2056) LACTIC ACID, PLASMA [ADDED]2021-07-09 00:00:00 Test Item Value Reference Range Interpretation Comments LACTIC ACID, PLASMA (test code = 27.1 MG/DL 2056) COMPREHENSIVE METABOLIC [id number] 00:00:00 Test Item Value Reference Range Interpretation Comments GLUCOSE (test code = 2217) 397 MG/DL BUN (test code = 2208) 21 MG/DL CREATININE (test code = 2214) 0.75 MG/DL eGFR (2020 CKD-EPI) (test code 88 ML/MIN/1.73 = 45908) CALC BUN/CREAT (test code = 28 RATIO [...] code = 2219) 25 U/L COMPREHENSIVE METABOLIC [id number] 00:00:00 Test Item Value Reference Range Interpretation Comments GLUCOSE (test code = 2217) 397 MG/DL BUN (test code = 2208) 21 MG/DL CREATININE (test code = 2214) 0.75 MG/DL eGFR (2020 CKD-EPI) (test code 88 ML/MIN/1.73 = 51316) CALC BUN/CREAT (test code = 28 RATIO [...] (test code = 2219) 25 U/L LIPID [id number] 00:00:00 Test Item Value Reference Range Interpretation Comments CHOLESTEROL (test code = 2210) 134 MG/DL TRIGLYCERIDES (test code = 2232) 81 MG/DL HDL CHOLESTEROL (test code = 2220) 61 MG/DL CALC LDL CHOL (test code = 2237) 57 MG/DL RISK RATIO LDL/HDL (test code = 0.93 RATIO 2238) LIPID [id number] 00:00:00 Test Item Value Reference Range Interpretation Comments CHOLESTEROL (test code = 2210) 134 MG/DL TRIGLYCERIDES (test code = 2232) 81 MG/DL HDL CHOLESTEROL (test code = 2220) 61 MG/DL CALC LDL CHOL (test code = 2237) 57 MG/DL RISK RATIO LDL/HDL (test code = 0.93 RATIO 2238) HEMOGLOBIN [id number] 00:00:00 Test Item Value Reference Range Interpretation Comments HEMOGLOBIN A1c (test code = 09303) 8.3 % HEMOGLOBIN [id number] 00:00:00 Test Item Value Reference Range Interpretation Comments HEMOGLOBIN A1c (test code = 98442) 8.3 % HEMOGLOBIN [id number] 00:00:00 Test Item Value Reference Range Interpretation Comments HEMOGLOBIN A1c (test code = 18827) 8.3 % LACTIC ACID, PLASMA [ADDED]2021-07-09 00:00:00 Test Item Value Reference Range Interpretation Comments LACTIC ACID, PLASMA (test code = 27.1 MG/DL 2056) LACTIC ACID, PLASMA [ADDED]2021-07-09 00:00:00 Test Item Value Reference Range Interpretation Comments LACTIC ACID, PLASMA (test code = 27.1 MG/DL 2056) COMPREHENSIVE METABOLIC [id number] 00:00:00 Test Item Value Reference Range Interpretation Comments GLUCOSE (test code = 2217) 397 MG/DL BUN (test code = 2208) 21 MG/DL CREATININE (test code = 2214) 0.75 MG/DL eGFR (2020 CKD-EPI) (test code 88 ML/MIN/1.73 = 65373) CALC BUN/CREAT (test code = 28 RATIO [...] code = 2219) 25 U/L COMPREHENSIVE METABOLIC [id number] 00:00:00 Test Item Value Reference Range Interpretation Comments GLUCOSE (test code = 2217) 397 MG/DL BUN (test code = 2208) 21 MG/DL CREATININE (test code = 2214) 0.75 MG/DL eGFR (2020 CKD-EPI) (test code 88 ML/MIN/1.73 = 10304) CALC BUN/CREAT (test code = 28 RATIO [...] (test code = 2219) 25 U/L LIPID [id number] 00:00:00 Test Item Value Reference Range Interpretation Comments CHOLESTEROL (test code = 2210) 134 MG/DL TRIGLYCERIDES (test code = 2232) 81 MG/DL HDL CHOLESTEROL (test code = 2220) 61 MG/DL CALC LDL CHOL (test code = 2237) 57 MG/DL RISK RATIO LDL/HDL (test code = 0.93 RATIO 2238) LIPID [id number] 00:00:00 Test Item Value Reference Range Interpretation Comments CHOLESTEROL (test code = 2210) 134 MG/DL TRIGLYCERIDES (test code = 2232) 81 MG/DL HDL CHOLESTEROL (test code = 2220) 61 MG/DL CALC LDL CHOL (test code = 2237) 57 MG/DL RISK RATIO LDL/HDL (test code = 0.93 RATIO 2238) HEMOGLOBIN [id number] 00:00:00 Test Item Value Reference Range Interpretation Comments HEMOGLOBIN A1c (test code = 83888) 8.3 % HEMOGLOBIN [id number] 00:00:00 Test Item Value Reference Range Interpretation Comments HEMOGLOBIN A1c (test code = 87770) 8.3 % HEMOGLOBIN [id number] 00:00:00 Test Item Value Reference Range Interpretation Comments HEMOGLOBIN A1c (test code = 61012) 8.3 % LACTIC ACID, PLASMA [ADDED]2021-07-09 00:00:00 Test Item Value Reference Range Interpretation Comments LACTIC ACID, PLASMA (test code = 27.1 MG/DL 2056) LACTIC ACID, PLASMA [ADDED]2021-07-09 00:00:00 Test Item Value Reference Range Interpretation Comments LACTIC ACID, PLASMA (test code = 27.1 MG/DL 2056) COMPREHENSIVE METABOLIC [id number] 00:00:00 Test Item Value Reference Range Interpretation Comments GLUCOSE (test code = 2217) 397 MG/DL BUN (test code = 2208) 21 MG/DL CREATININE (test code = 2214) 0.75 MG/DL eGFR (2020 CKD-EPI) (test code 88 ML/MIN/1.73 = 50265) CALC BUN/CREAT (test code = 28 RATIO [...] code = 2219) 25 U/L COMPREHENSIVE METABOLIC [id number] 00:00:00 Test Item Value Reference Range Interpretation Comments GLUCOSE (test code = 2217) 397 MG/DL BUN (test code = 2208) 21 MG/DL CREATININE (test code = 2214) 0.75 MG/DL eGFR (2020 CKD-EPI) (test code 88 ML/MIN/1.73 = 19987) CALC BUN/CREAT (test code = 28 RATIO [...] (test code = 2219) 25 U/L LIPID [id number] 00:00:00 Test Item Value Reference Range Interpretation Comments CHOLESTEROL (test code = 2210) 134 MG/DL TRIGLYCERIDES (test code = 2232) 81 MG/DL HDL CHOLESTEROL (test code = 2220) 61 MG/DL CALC LDL CHOL (test code = 2237) 57 MG/DL RISK RATIO LDL/HDL (test code = 0.93 RATIO 2238) LIPID [id number] 00:00:00 Test Item Value Reference Range Interpretation Comments CHOLESTEROL (test code = 2210) 134 MG/DL TRIGLYCERIDES (test code = 2232) 81 MG/DL HDL CHOLESTEROL (test code = 2220) 61 MG/DL CALC LDL CHOL (test code = 2237) 57 MG/DL RISK RATIO LDL/HDL (test code = 0.93 RATIO 2238) HEMOGLOBIN [id number] 00:00:00 Test Item Value Reference Range Interpretation Comments HEMOGLOBIN A1c (test code = 56620) 8.3 % HEMOGLOBIN [id number] 00:00:00 Test Item Value Reference Range Interpretation Comments HEMOGLOBIN A1c (test code = 60951) 8.3 % HEMOGLOBIN [id number] 00:00:00 Test Item Value Reference Range Interpretation Comments HEMOGLOBIN A1c (test code = 72029) 8.3 % LACTIC ACID, PLASMA [ADDED]2021-07-09 00:00:00 Test Item Value Reference Range Interpretation Comments LACTIC ACID, PLASMA (test code = 27.1 MG/DL 2056) LACTIC ACID, PLASMA [ADDED]2021-07-09 00:00:00 Test Item Value Reference Range Interpretation Comments LACTIC ACID, PLASMA (test code = 27.1 MG/DL 2056) COMPREHENSIVE METABOLIC [id number] 00:00:00 Test Item Value Reference Range Interpretation Comments GLUCOSE (test code = 2217) 397 MG/DL BUN (test code = 2208) 21 MG/DL CREATININE (test code = 2214) 0.75 MG/DL eGFR (2020 CKD-EPI) (test code 88 ML/MIN/1.73 = 24468) CALC BUN/CREAT (test code = 28 RATIO [...] code = 2219) 25 U/L COMPREHENSIVE METABOLIC [id number] 00:00:00 Test Item Value Reference Range Interpretation Comments GLUCOSE (test code = 2217) 397 MG/DL BUN (test code = 2208) 21 MG/DL CREATININE (test code = 2214) 0.75 MG/DL eGFR (2020 CKD-EPI) (test code 88 ML/MIN/1.73 = 46071) CALC BUN/CREAT (test code = 28 RATIO [...] (test code = 2219) 25 U/L LIPID [id number] 00:00:00 Test Item Value Reference Range Interpretation Comments CHOLESTEROL (test code = 2210) 134 MG/DL TRIGLYCERIDES (test code = 2232) 81 MG/DL HDL CHOLESTEROL (test code = 2220) 61 MG/DL CALC LDL CHOL (test code = 2237) 57 MG/DL RISK RATIO LDL/HDL (test code = 0.93 RATIO 8) LACTIC ACID, [id number] 15:11:52 Test Item Value Reference Range Interpretation Comments LACTIC ACID, 11.7 MG/DL 4.5-19.8 UNLESS OTHERWI SE PLASMA (test code INDICATED, ALL TESTING = 2056) PERFORMED ATCLI NICAL PATHOLOGY [facility] [address] [place] [id number] [place] [address] DIRECTOR: TITA PARIKH M.D. CLIA NUMBER [id number] CAP ACCREDITATION N O. [id number] LACTIC ACID, PLASMA [ADDED]2021-05-29 00:00:00 Test Item [...] (test code = 11.7 MG/DL 2056) HEMOGLOBIN [id number] 03:44:50 Test Item Value Reference Range Interpretation Comments HEMOGLOBIN A1c (test 7.5 % 4.2-5.6 H [employer] AN DIABETES code = 97665) ASSOCIATION IDELINES FOR HGB A1C: PREDIABETES/INC REASED [...] TESTING OR LABORATORY C ONSULTATION. COMPREHENSIVE METABOLIC [id number] 03:25:55 Test Item Value Reference Range Interpretation Comments GLUCOSE (test code = 159 MG/DL 70-99 H 2216) BUN (test code = 17 MG/DL 8-23 2207) CREATININE (test 0.56 MG/DL 0.60-1.30 L code = 2214) eGFR (2020 CKD-EPI) 101 >60 (test code = 84059) ML/MIN/1.73 CALC BUN/CREAT (test 30 RATIO 6-28 H code = 2235) SODIUM (test code = 141 MEQ/L 846-155 8106) POTASSIUM (test code 4.4 MEQ/L 3.5-5.4 = [...] (test code = 21 U/L 5-40 2218) HEMOGLOBIN A1c [ADDED]2021-05-28 00:00:00 Test Item Value Reference Range Interpretation Comments HEMOGLOBIN A1c (test code = 98897) 7.5 % HEMOGLOBIN A1c [ADDED]2021-05-28 00:00:00 Test Item Value Reference Range Interpretation Comments HEMOGLOBIN A1c (test code = 34675) 7.5 % HEMOGLOBIN A1c [ADDED]2021-05-28 00:00:00 Test Item Value Reference Range Interpretation Comments HEMOGLOBIN A1c (test code = 88684) 7.5 % COMPREHENSIVE METABOLIC PANEL [ADDED]2021-05-28 00:00:00 Test Item Value Reference Range Interpretation Comments GLUCOSE (test code = 2217) 159 MG/DL BUN (test code = 2208) 17 MG/DL CREATININE (test code = 2214) 0.56 MG/DL eGFR (2020 CKD-EPI) (test 101 ML/MIN/1.73 code = 91389) CALC BUN/CREAT (test code = 30 RATIO [...] (2020 CKD-EPI) (test 101 ML/MIN/1.73 code = 38424) CALC BUN/CREAT (test code = 30 RATIO [...] Interpretation Comments HEMOGLOBIN A1c (test code = 53756) 7.5 % HEMOGLOBIN A1c [ADDED]2021-05-28 00:00:00 Test Item Value Reference Range Interpretation Comments HEMOGLOBIN A1c (test code = 18419) 7.5 % HEMOGLOBIN A1c [ADDED]2021-05-28 00:00:00 Test Item Value Reference Range Interpretation Comments HEMOGLOBIN A1c (test code = 01017) 7.5 % COMPREHENSIVE METABOLIC PANEL [ADDED]2021-05-28 00:00:00 Test Item Value Reference Range Interpretation Comments GLUCOSE (test code = 2217) 159 MG/DL BUN (test code = 2208) 17 MG/DL CREATININE (test code = 2214) 0.56 MG/DL eGFR (2020 CKD-EPI) (test 101 ML/MIN/1.73 code = 94235) CALC BUN/CREAT (test code = 30 RATIO [...] (2020 CKD-EPI) (test 101 ML/MIN/1.73 code = 01206) CALC BUN/CREAT (test code = 30 RATIO 2235) SODIUM (test code = 2231) 141 MEQ/L POTASSIUM (test code = 2228) 4.4 MEQ/L CHLORIDE (test code = 2215) 101 MEQ/L CARBON DIOXIDE (test code = 25 MEQ/L 6) CALCIUM (test code = 2209) [...] Interpretation Comments HEMOGLOBIN A1c (test code = 70982) 7.5 % HEMOGLOBIN A1c [ADDED]2021-05-28 00:00:00 Test Item Value Reference Range Interpretation Comments HEMOGLOBIN A1c (test code = 24564) 7.5 % HEMOGLOBIN A1c [ADDED]2021-05-28 00:00:00 Test Item Value Reference Range Interpretation Comments HEMOGLOBIN A1c (test code = 77140) 7.5 % COMPREHENSIVE METABOLIC PANEL [ADDED]2021-05-28 00:00:00 Test Item Value Reference Range Interpretation Comments GLUCOSE (test code = 2217) 159 MG/DL BUN (test code = 2208) 17 MG/DL CREATININE (test code = 2214) 0.56 MG/DL eGFR (2020 CKD-EPI) (test 101 ML/MIN/1.73 code = 19467) CALC BUN/CREAT (test code = 30 RATIO [...] (2020 CKD-EPI) (test 101 ML/MIN/1.73 code = 78417) CALC BUN/CREAT (test code = 30 RATIO [...] Interpretation Comments HEMOGLOBIN A1c (test code = 18383) 7.5 % HEMOGLOBIN A1c [ADDED]2021-05-28 00:00:00 Test Item Value Reference Range Interpretation Comments HEMOGLOBIN A1c (test code = 35891) 7.5 % HEMOGLOBIN A1c [ADDED]2021-05-28 00:00:00 Test Item Value Reference Range Interpretation Comments HEMOGLOBIN A1c (test code = 88569) 7.5 % COMPREHENSIVE METABOLIC PANEL [ADDED]2021-05-28 00:00:00 Test Item Value Reference Range Interpretation Comments GLUCOSE (test code = 2217) 159 MG/DL BUN (test code = 2208) 17 MG/DL CREATININE (test code = 2214) 0.56 MG/DL eGFR (2020 CKD-EPI) (test 101 ML/MIN/1.73 code = 30181) CALC BUN/CREAT (test code = 30 RATIO 2235) SODIUM (test code = 2231) 141 MEQ/L POTASSIUM (test code = 2228) 4.4 MEQ/L CHLORIDE (test code = 2215) 101 MEQ/L CARBON DIOXIDE (test code = 25 MEQ/L 6) CALCIUM (test code = 2209) [...] (2020 CKD-EPI) (test 101 ML/MIN/1.73 code = 90247) CALC BUN/CREAT (test code = 30 RATIO [...] ALT (test code = 2219) 21 U/L LACTIC ACID, [id number] 15:10:19 Test Item Value Reference Range Interpretation Comments LACTIC ACID, 34.5 MG/DL 4.5-19.8 H UNLESS OTHERWI SE PLASMA (test code INDICATED, ALL TESTING = 2056) PERFORMED ATCLI NICAL PATHOLOGY LABOR [employer] [address] [place] [id number] LABOR ATORY DIRECTOR: TITA PARIKH M.D. CLIA NUMBER [id number] CAP ACCREDITATION N O. [id number] LACTIC ACID, PLASMA [ADDED]2021-05-16 00:00:00 Test Item [...] code = 34.5 MG/DL 2056) LACTIC ACID, [id number] 13:30:20 Test Item Value Reference Range Interpretation Comments LACTIC ACID, 18.5 MG/DL 4.5-19.8 UNLESS OTHERWI SE PLASMA (test code INDICATED, ALL TESTING = 2056) PERFORMED [facility]CL[facility] NICAL PATHOLOGY [facility] [address] [place] [phone] [place] [address] DIRECTOR: TITA PARIKH M.D. CLIA NUMBER [id number] CAP ACCREDITATION N O. [id number] LACTIC ACID, [id number] 00:00:00 Test Item Value Reference Range Interpretation Comments LACTIC ACID, PLASMA (test code = 18.5 MG/DL 2056) LACTIC ACID, [id number] 00:00:00 Test Item Value Reference Range Interpretation Comments LACTIC ACID, PLASMA (test code = 18.5 MG/DL 2056) LACTIC ACID, [id number] 00:00:00 Test Item Value Reference Range Interpretation Comments LACTIC ACID, PLASMA (test code = 18.5 MG/DL 2056) LACTIC ACID, [id number] 00:00:00 Test Item Value Reference Range Interpretation Comments LACTIC ACID, PLASMA (test code = 18.5 MG/DL 2056) LACTIC ACID, [id number] 00:00:00 Test Item Value Reference Range Interpretation Comments LACTIC ACID, PLASMA (test code = 18.5 MG/DL 2056) LACTIC ACID, [id number] 00:00:00 Test Item Value Reference Range Interpretation Comments LACTIC ACID, PLASMA (test code = 18.5 MG/DL 2056) LACTIC ACID, [id number] 00:00:00 Test Item Value Reference Range Interpretation Comments LACTIC ACID, PLASMA (test code = 18.5 MG/DL 2056) LACTIC ACID, [id number] 00:00:00 Test Item Value Reference Range Interpretation Comments LACTIC ACID, PLASMA (test code = 18.5 MG/DL 2056) TSH, THIRD [id number] 06:41:17 Test Item Value Reference Range Interpretation Comments TSH, THIRD GENERATION (test code 1.300 UIU/ML 0.400-4.100 = 282) LIPID [id number] 04:18:20 Test Item Value Reference Range Interpretation [...] MOREINFORMATION , SEE CLIENT ANNOUNCE MENT AT [email or web address] RISK RATIO LDL/HDL 0.85 RATIO <3.22 (test code = 2238) COMPREHENSIVE METABOLIC [id number] 04:18:20 Test Item Value Reference Range Interpretation Comments GLUCOSE (test code = 93 MG/DL 70-99 2216) BUN (test code = 15 MG/DL 8-2207) CREATININE (test 0.72 MG/DL 0.60-1.30 code = 2214) eGFR (2020 CKD-EPI) 93 ML/MIN/1.73 >60 (test code = 12618) CALC BUN/CREAT (test 21 RATIO 6-28 code = 2235) SODIUM (test code = 143 MEQ/L 794-675 5295) POTASSIUM (test code 3.8 MEQ/L 3.5-5.4 = [...] code = 36 U/L 5-40 2218) HEMOGLOBIN [id number] 03:31:34 Test Item Value Reference Range Interpretation Comments HEMOGLOBIN A1c (test 7.8 % 4.2-5.6 H AMERIC AN DIABETES code = 26104) ASSOCIATION IDELINES FOR HGB A1C: PREDIABETES/INC REASED [...] ALTERN ATE TESTING OR LABORATORY C ONSULTATION. HEMOGLOBIN [id number] 00:00:00 Test Item Value Reference Range Interpretation Comments HEMOGLOBIN A1c (test code = 49224) 7.8 % HEMOGLOBIN [id number] 00:00:00 Test Item Value Reference Range Interpretation Comments HEMOGLOBIN A1c (test code = 40403) 7.8 % HEMOGLOBIN [id number] 00:00:00 Test Item Value Reference Range Interpretation Comments HEMOGLOBIN A1c (test code = 06822) 7.8 % COMPREHENSIVE METABOLIC [id number] 00:00:00 Test Item Value Reference Range Interpretation Comments GLUCOSE (test code = 2217) 93 MG/DL BUN (test code = 2208) 15 MG/DL CREATININE (test code = 2214) 0.72 MG/DL eGFR (2020 CKD-EPI) (test code 93 ML/MIN/1.73 = 42634) CALC BUN/CREAT (test code = 21 RATIO [...] code = 2219) 36 U/L COMPREHENSIVE METABOLIC [id number] 00:00:00 Test Item Value Reference Range Interpretation Comments GLUCOSE (test code = 2217) 93 MG/DL BUN (test code = 2208) 15 MG/DL CREATININE (test code = 2214) 0.72 MG/DL eGFR (2020 CKD-EPI) (test code 93 ML/MIN/1.73 = 68724) CALC BUN/CREAT (test code = 21 RATIO [...] ALT (test code = 2219) 36 U/L [id number] 00:00:00 Test Item Value Reference Range Interpretation Comments TSH, THIRD GENERATION (test code 1.300 UIU/ML = 2821) [id number] 00:00:00 Test Item Value Reference Range Interpretation Comments TSH, THIRD GENERATION (test code 1.300 UIU/ML = 2821) [id number] 00:00:00 Test Item Value Reference Range Interpretation Comments TSH, THIRD GENERATION (test code 1.300 UIU/ML = 2821) LIPID [id number] 00:00:00 Test Item Value Reference Range Interpretation Comments CHOLESTEROL (test code = 2210) 125 MG/DL TRIGLYCERIDES (test code = 2232) 167 MG/DL HDL CHOLESTEROL (test code = 2220) 54 MG/DL CALC LDL CHOL (test code = 2237) 46 MG/DL RISK RATIO LDL/HDL (test code = 0.85 RATIO 2238) LIPID [id number] 00:00:00 Test Item Value Reference Range Interpretation Comments CHOLESTEROL (test code = 2210) 125 MG/DL TRIGLYCERIDES (test code = 2232) 167 MG/DL HDL CHOLESTEROL (test code = 2220) 54 MG/DL CALC LDL CHOL (test code = 2237) 46 MG/DL RISK RATIO LDL/HDL (test code = 0.85 RATIO 2238) HEMOGLOBIN [id number] 00:00:00 Test Item Value Reference Range Interpretation Comments HEMOGLOBIN A1c (test code = 48160) 7.8 % HEMOGLOBIN [id number] 00:00:00 Test Item Value Reference Range Interpretation Comments HEMOGLOBIN A1c (test code = 30447) 7.8 % HEMOGLOBIN [id number] 00:00:00 Test Item Value Reference Range Interpretation Comments HEMOGLOBIN A1c (test code = 57279) 7.8 % COMPREHENSIVE METABOLIC [id number] 00:00:00 Test Item Value Reference Range Interpretation Comments GLUCOSE (test code = 2217) 93 MG/DL BUN (test code = 2208) 15 MG/DL CREATININE (test code = 2214) 0.72 MG/DL eGFR (2020 CKD-EPI) (test code 93 ML/MIN/1.73 = 98085) CALC BUN/CREAT (test code = 21 RATIO [...] code = 2219) 36 U/L COMPREHENSIVE METABOLIC [id number] 00:00:00 Test Item Value Reference Range Interpretation Comments GLUCOSE (test code = 2217) 93 MG/DL BUN (test code = 2208) 15 MG/DL CREATININE (test code = 2214) 0.72 MG/DL eGFR (2020 CKD-EPI) (test code 93 ML/MIN/1.73 = 39027) CALC BUN/CREAT (test code = 21 RATIO 2235) SODIUM (test code = 2231) 143 MEQ/L POTASSIUM (test code = 2228) 3.8 MEQ/L CHLORIDE (test code = 2215) 98 MEQ/L CARBON DIOXIDE (test code = 29 MEQ/L 6) CALCIUM (test code = 2209) [...] ALT (test code = 2219) 36 U/L [id number] 00:00:00 Test Item Value Reference Range Interpretation Comments TSH, THIRD GENERATION (test code 1.300 UIU/ML = 2821) [id number] 00:00:00 Test Item Value Reference Range Interpretation Comments TSH, THIRD GENERATION (test code 1.300 UIU/ML = 2821) [id number] 00:00:00 Test Item Value Reference Range Interpretation Comments TSH, THIRD GENERATION (test code 1.300 UIU/ML = 2821) LIPID [id number] 00:00:00 Test Item Value Reference Range Interpretation Comments CHOLESTEROL (test code = 2210) 125 MG/DL TRIGLYCERIDES (test code = 2232) 167 MG/DL HDL CHOLESTEROL (test code = 2220) 54 MG/DL CALC LDL CHOL (test code = 2237) 46 MG/DL RISK RATIO LDL/HDL (test code = 0.85 RATIO 2238) LIPID [id number] 00:00:00 Test Item Value Reference Range Interpretation Comments CHOLESTEROL (test code = 2210) 125 MG/DL TRIGLYCERIDES (test code = 2232) 167 MG/DL HDL CHOLESTEROL (test code = 2220) 54 MG/DL CALC LDL CHOL (test code = 2237) 46 MG/DL RISK RATIO LDL/HDL (test code = 0.85 RATIO 2238) HEMOGLOBIN [id number] 00:00:00 Test Item Value Reference Range Interpretation Comments HEMOGLOBIN A1c (test code = 84789) 7.8 % HEMOGLOBIN [id number] 00:00:00 Test Item Value Reference Range Interpretation Comments HEMOGLOBIN A1c (test code = 17038) 7.8 % HEMOGLOBIN [id number] 00:00:00 Test Item Value Reference Range Interpretation Comments HEMOGLOBIN A1c (test code = 42659) 7.8 % COMPREHENSIVE METABOLIC [id number] 00:00:00 Test Item Value Reference Range Interpretation Comments GLUCOSE (test code = 2217) 93 MG/DL BUN (test code = 2208) 15 MG/DL CREATININE (test code = 2214) 0.72 MG/DL eGFR (2020 CKD-EPI) (test code 93 ML/MIN/1.73 = 55626) CALC BUN/CREAT (test code = 21 RATIO [...] code = 2219) 36 U/L COMPREHENSIVE METABOLIC [id number] 00:00:00 Test Item Value Reference Range Interpretation Comments GLUCOSE (test code = 2217) 93 MG/DL BUN (test code = 2208) 15 MG/DL CREATININE (test code = 2214) 0.72 MG/DL eGFR (2020 CKD-EPI) (test code 93 ML/MIN/1.73 = 69239) CALC BUN/CREAT (test code = 21 RATIO [...] ALT (test code = 2219) 36 U/L [id number] 00:00:00 Test Item Value Reference Range Interpretation Comments TSH, THIRD GENERATION (test code 1.300 UIU/ML = 2821) [id number] 00:00:00 Test Item Value Reference Range Interpretation Comments TSH, THIRD GENERATION (test code 1.300 UIU/ML = 2821) [id number] 00:00:00 Test Item Value Reference Range Interpretation Comments TSH, THIRD GENERATION (test code 1.300 UIU/ML = 2821) LIPID [id number] 00:00:00 Test Item Value Reference Range Interpretation Comments CHOLESTEROL (test code = 2210) 125 MG/DL TRIGLYCERIDES (test code = 2232) 167 MG/DL HDL CHOLESTEROL (test code = 2220) 54 MG/DL CALC LDL CHOL (test code = 2237) 46 MG/DL RISK RATIO LDL/HDL (test code = 0.85 RATIO 2238) LIPID [id number] 00:00:00 Test Item Value Reference Range Interpretation Comments CHOLESTEROL (test code = 2210) 125 MG/DL TRIGLYCERIDES (test code = 2232) 167 MG/DL HDL CHOLESTEROL (test code = 2220) 54 MG/DL CALC LDL CHOL (test code = 2237) 46 MG/DL RISK RATIO LDL/HDL (test code = 0.85 RATIO 2238) HEMOGLOBIN [id number] 00:00:00 Test Item Value Reference Range Interpretation Comments HEMOGLOBIN A1c (test code = 00405) 7.8 % HEMOGLOBIN [id number] 00:00:00 Test Item Value Reference Range Interpretation Comments HEMOGLOBIN A1c (test code = 85510) 7.8 % HEMOGLOBIN [id number] 00:00:00 Test Item Value Reference Range Interpretation Comments HEMOGLOBIN A1c (test code = 17921) 7.8 % COMPREHENSIVE METABOLIC [id number] 00:00:00 Test Item Value Reference Range Interpretation Comments GLUCOSE (test code = 2217) 93 MG/DL BUN (test code = 2208) 15 MG/DL CREATININE (test code = 2214) 0.72 MG/DL eGFR (2020 CKD-EPI) (test code 93 ML/MIN/1.73 = 09576) CALC BUN/CREAT (test code = 21 RATIO [...] code = 2219) 36 U/L COMPREHENSIVE METABOLIC [id number] 00:00:00 Test Item Value Reference Range Interpretation Comments GLUCOSE (test code = 2217) 93 MG/DL BUN (test code = 2208) 15 MG/DL CREATININE (test code = 2214) 0.72 MG/DL eGFR (2020 CKD-EPI) (test code 93 ML/MIN/1.73 = 44531) CALC BUN/CREAT (test code = 21 RATIO [...] ALT (test code = 2219) 36 U/L [id number] 00:00:00 Test Item Value Reference Range Interpretation Comments TSH, THIRD GENERATION (test code 1.300 UIU/ML = 2821) [id number] 00:00:00 Test Item Value Reference Range Interpretation Comments TSH, THIRD GENERATION (test code 1.300 UIU/ML = 2821) [id number] 00:00:00 Test Item Value Reference Range Interpretation Comments TSH, THIRD GENERATION (test code 1.300 UIU/ML = 2821) LIPID [id number] 00:00:00 Test Item Value Reference Range Interpretation Comments CHOLESTEROL (test code = 2210) 125 MG/DL TRIGLYCERIDES (test code = 2232) 167 MG/DL HDL CHOLESTEROL (test code = 2220) 54 MG/DL CALC LDL CHOL (test code = 2237) 46 MG/DL RISK RATIO LDL/HDL (test code = 0.85 RATIO 2238) LIPID [id number] 00:00:00 Test Item Value Reference Range Interpretation Comments CHOLESTEROL (test code = 2210) 125 MG/DL TRIGLYCERIDES (test code = 2232) 167 MG/DL HDL CHOLESTEROL (test code = 2220) 54 MG/DL CALC LDL CHOL (test code = 2237) 46 MG/DL RISK RATIO LDL/HDL (test code = 0.85 RATIO 2238) HEMOGLOBIN [id number] 00:00:00 Test Item Value Reference Range Interpretation Comments HEMOGLOBIN A1c (test code = 79497) 10.9 % HEMOGLOBIN [id number] 00:00:00 Test Item Value Reference Range Interpretation Comments HEMOGLOBIN A1c (test code = 73873) 10.9 % MICROALBUMIN/CREATININE, RANDOM AND [id number] 00:00:00 Test Item Value Reference Range Interpretation Comments CREATININE, URINE, CONC. (test 128.0 MG/DL code = 2072) ALBUMIN, URINE, RANDOM (test code 2.2 MG/DL = 66371) CALC ALBUMIN/CREAT, RND (test 17 MG/G code = 83336) MICROALBUMIN/CREATININE, RANDOM AND [id number] 00:00:00 Test Item Value Reference Range Interpretation Comments CREATININE, URINE, CONC. (test 128.0 MG/DL code = 2072) ALBUMIN, URINE, RANDOM (test code 2.2 MG/DL = 53118) CALC ALBUMIN/CREAT, RND (test 17 MG/G code = 44160) HEMOGLOBIN [id number] 00:00:00 Test Item Value Reference Range Interpretation Comments HEMOGLOBIN A1c (test code = 30366) 10.9 % HEMOGLOBIN [id number] 00:00:00 Test Item Value Reference Range Interpretation Comments HEMOGLOBIN A1c (test code = 16572) 10.9 % HEMOGLOBIN [id number] 00:00:00 Test Item Value Reference Range Interpretation Comments HEMOGLOBIN A1c (test code = 28697) 10.9 % MICROALBUMIN/CREATININE, RANDOM AND [id number] 00:00:00 Test Item Value Reference Range Interpretation Comments CREATININE, URINE, CONC. (test 128.0 MG/DL code = 2072) ALBUMIN, URINE, RANDOM (test code 2.2 MG/DL = 38030) CALC ALBUMIN/CREAT, RND (test 17 MG/G code = 54958) MICROALBUMIN/CREATININE, RANDOM AND [id number] 00:00:00 Test Item Value Reference Range Interpretation Comments CREATININE, URINE, CONC. (test 128.0 MG/DL code = 2072) ALBUMIN, URINE, RANDOM (test code 2.2 MG/DL = 17564) CALC ALBUMIN/CREAT, RND (test 17 MG/G code = 54154) HEMOGLOBIN [id number] 00:00:00 Test Item Value Reference Range Interpretation Comments HEMOGLOBIN A1c (test code = 13202) 10.9 % HEMOGLOBIN [id number] 00:00:00 Test Item Value Reference Range Interpretation Comments HEMOGLOBIN A1c (test code = 43403) 10.9 % HEMOGLOBIN [id number] 00:00:00 Test Item Value Reference Range Interpretation Comments HEMOGLOBIN A1c (test code = 00069) 10.9 % MICROALBUMIN/CREATININE, RANDOM AND [id number] 00:00:00 Test Item Value Reference Range Interpretation Comments CREATININE, URINE, CONC. (test 128.0 MG/DL code = 2072) ALBUMIN, URINE, RANDOM (test code 2.2 MG/DL = 41113) CALC ALBUMIN/CREAT, RND (test 17 MG/G code = 72770) MICROALBUMIN/CREATININE, RANDOM AND [id number] 00:00:00 Test Item Value Reference Range Interpretation Comments CREATININE, URINE, CONC. (test 128.0 MG/DL code = 2072) ALBUMIN, URINE, RANDOM (test code 2.2 MG/DL = 20390) CALC ALBUMIN/CREAT, RND (test 17 MG/G code = 12724) HEMOGLOBIN [id number] 00:00:00 Test Item Value Reference Range Interpretation Comments HEMOGLOBIN A1c (test code = 97795) 10.9 % HEMOGLOBIN [id number] 00:00:00 Test Item Value Reference Range Interpretation Comments HEMOGLOBIN A1c (test code = 25223) 10.9 % HEMOGLOBIN [id number] 00:00:00 Test Item Value Reference Range Interpretation Comments HEMOGLOBIN A1c (test code = 42248) 10.9 % MICROALBUMIN/CREATININE, RANDOM AND [id number] 00:00:00 Test Item Value Reference Range Interpretation Comments CREATININE, URINE, CONC. (test 128.0 MG/DL code = 2072) ALBUMIN, URINE, RANDOM (test code 2.2 MG/DL = 10898) CALC ALBUMIN/CREAT, RND (test 17 MG/G code = 17878) MICROALBUMIN/CREATININE, RANDOM AND [id number] 00:00:00 Test Item Value Reference Range Interpretation Comments CREATININE, URINE, CONC. (test 128.0 MG/DL code = 2072) ALBUMIN, URINE, RANDOM (test code 2.2 MG/DL = 70029) CALC ALBUMIN/CREAT, RND (test 17 MG/G code = 27400) HEMOGLOBIN [id number] 00:00:00 Test Item Value Reference Range Interpretation Comments HEMOGLOBIN A1c (test code = 82932) 10.9 % HEMOGLOBIN [id number] 00:00:00 Test Item Value Reference Range Interpretation Comments HEMOGLOBIN A1c (test code = 72699) 10.9 % HEMOGLOBIN [id number] 00:00:00 Test Item Value Reference Range Interpretation Comments HEMOGLOBIN A1c (test code = 72264) 10.9 % HEMOGLOBIN [id number] 00:00:00 Test Item Value Reference Range Interpretation Comments HEMOGLOBIN A1c (test code = 50075) 10.9 % HEMOGLOBIN [id number] 00:00:00 Test Item Value Reference Range Interpretation Comments HEMOGLOBIN A1c (test code = 00527) 10.9 % HEMOGLOBIN [id number] 00:00:00 Test Item Value Reference Range Interpretation Comments HEMOGLOBIN A1c (test code = 59517) 10.9 % HEMOGLOBIN [id number] 00:00:00 Test Item Value Reference Range Interpretation Comments HEMOGLOBIN A1c (test code = 29909) 10.9 % HEMOGLOBIN [id number] 00:00:00 Test Item Value Reference Range Interpretation Comments HEMOGLOBIN A1c (test code = 97432) 10.9 % HEMOGLOBIN [id number] 00:00:00 Test Item Value Reference Range Interpretation Comments HEMOGLOBIN A1c (test code = 62574) 10.9 % HEMOGLOBIN [id number] 00:00:00 Test Item Value Reference Range Interpretation Comments HEMOGLOBIN A1c (test code = 28777) 10.9 % HEMOGLOBIN [id number] 00:00:00 Test Item Value Reference Range Interpretation Comments HEMOGLOBIN A1c (test code = 93535) 10.9 % HEMOGLOBIN [id number] 00:00:00 Test Item Value Reference Range Interpretation Comments HEMOGLOBIN A1c (test code = 03036) 10.9 % HEMOGLOBIN [id number] 00:00:00 Test Item Value Reference Range Interpretation Comments HEMOGLOBIN A1c (test code = 62074) 10.9 % HEMOGLOBIN [id number] 00:00:00 Test Item Value Reference Range Interpretation Comments HEMOGLOBIN A1c (test code = 18663) 5.9 % HEMOGLOBIN [id number] 00:00:00 Test Item Value Reference Range Interpretation Comments HEMOGLOBIN A1c (test code = 35447) 5.9 % HEMOGLOBIN [id number] 00:00:00 Test Item Value Reference Range Interpretation Comments HEMOGLOBIN A1c (test code = 87113) 5.9 % LIPID [id number] 00:00:00 Test Item Value Reference Range Interpretation Comments CHOLESTEROL (test code = 2210) 131 MG/DL TRIGLYCERIDES (test code = 2232) 190 MG/DL HDL CHOLESTEROL (test code = 2220) 42 MG/DL CALC LDL CHOL (test code = 2237) 63 MG/DL RISK RATIO LDL/HDL (test code = 1.50 RATIO 2238) LIPID [id number] 00:00:00 Test Item Value Reference Range Interpretation Comments CHOLESTEROL (test code = 2210) 131 MG/DL TRIGLYCERIDES (test code = 2232) 190 MG/DL HDL CHOLESTEROL (test code = 2220) 42 MG/DL CALC LDL CHOL (test code = 2237) 63 MG/DL RISK RATIO LDL/HDL (test code = 1.50 RATIO 2238) COMPREHENSIVE METABOLIC [id number] 00:00:00 Test Item Value Reference Range Interpretation Comments GLUCOSE (test code = 2217) 105 MG/DL BUN (test code = 2208) 17 MG/DL CREATININE (test code = 2214) 0.68 MG/DL eGFR AMER. (test code 107 ML/MIN/1.73 = 29407) eGFR NON- AMER. (test 92 ML/MIN/1.73 code = 03132) CALC BUN/CREAT (test code = 25 RATIO [...] code = 2219) 20 U/L COMPREHENSIVE METABOLIC [id number] 00:00:00 Test Item Value Reference Range Interpretation Comments GLUCOSE (test code = 2217) 105 MG/DL BUN (test code = 2208) 17 MG/DL CREATININE (test code = 2214) 0.68 MG/DL eGFR AMER. (test code 107 ML/MIN/1.73 = 22554) eGFR NON- AMER. (test 92 ML/MIN/1.73 code = 06515) CALC BUN/CREAT (test code = 25 RATIO [...] ALT (test code = 2219) 20 U/L [id number] 00:00:00 Test Item Value Reference Range Interpretation Comments TSH, THIRD GENERATION (test code 2.260 UIU/ML = 2821) [id number] 00:00:00 Test Item Value Reference Range Interpretation Comments TSH, THIRD GENERATION (test code 2.260 UIU/ML = 2821) [id number] 00:00:00 Test Item Value Reference Range Interpretation Comments TSH, THIRD GENERATION (test code 2.260 UIU/ML = 2821) CBC W/AUTO [id number] 00:00:00 Test Item Value Reference Range Interpretation [...] code = 1015) 218 K/UL CBC W/AUTO [id number] 00:00:00 Test Item Value Reference Range Interpretation [...] code = 1015) 218 K/UL CBC W/AUTO [id number] 00:00:00 Test Item Value Reference Range Interpretation [...] (test code = 1015) 218 K/UL HEMOGLOBIN [id number] 00:00:00 Test Item Value Reference Range Interpretation Comments HEMOGLOBIN A1c (test code = 02953) 5.9 % HEMOGLOBIN [id number] 00:00:00 Test Item Value Reference Range Interpretation Comments HEMOGLOBIN A1c (test code = 71321) 5.9 % HEMOGLOBIN [id number] 00:00:00 Test Item Value Reference Range Interpretation Comments HEMOGLOBIN A1c (test code = 33841) 5.9 % LIPID [id number] 00:00:00 Test Item Value Reference Range Interpretation Comments CHOLESTEROL (test code = 2210) 131 MG/DL TRIGLYCERIDES (test code = 2232) 190 MG/DL HDL CHOLESTEROL (test code = 2220) 42 MG/DL CALC LDL CHOL (test code = 2237) 63 MG/DL RISK RATIO LDL/HDL (test code = 1.50 RATIO 2238) LIPID [id number] 00:00:00 Test Item Value Reference Range Interpretation Comments CHOLESTEROL (test code = 2210) 131 MG/DL TRIGLYCERIDES (test code = 2232) 190 MG/DL HDL CHOLESTEROL (test code = 2220) 42 MG/DL CALC LDL CHOL (test code = 2237) 63 MG/DL RISK RATIO LDL/HDL (test code = 1.50 RATIO 2238) COMPREHENSIVE METABOLIC [id number] 00:00:00 Test Item Value Reference Range Interpretation Comments GLUCOSE (test code = 2217) 105 MG/DL BUN (test code = 2208) 17 MG/DL CREATININE (test code = 2214) 0.68 MG/DL eGFR AMER. (test code 107 ML/MIN/1.73 = 15968) eGFR NON- AMER. (test 92 ML/MIN/1.73 code = 17803) CALC BUN/CREAT (test code = 25 RATIO [...] code = 2219) 20 U/L COMPREHENSIVE METABOLIC [id number] 00:00:00 Test Item Value Reference Range Interpretation Comments GLUCOSE (test code = 2217) 105 MG/DL BUN (test code = 2208) 17 MG/DL CREATININE (test code = 2214) 0.68 MG/DL eGFR AMER. (test code 107 ML/MIN/1.73 = 48510) eGFR NON- AMER. (test 92 ML/MIN/1.73 code = 19475) CALC BUN/CREAT (test code = 25 RATIO [...] ALT (test code = 2219) 20 U/L [id number] 00:00:00 Test Item Value Reference Range Interpretation Comments TSH, THIRD GENERATION (test code 2.260 UIU/ML = 2821) [id number] 00:00:00 Test Item Value Reference Range Interpretation Comments TSH, THIRD GENERATION (test code 2.260 UIU/ML = 2821) [id number] 00:00:00 Test Item Value Reference Range Interpretation Comments TSH, THIRD GENERATION (test code 2.260 UIU/ML = 2821) CBC W/AUTO [id number] 00:00:00 Test Item Value Reference Range Interpretation [...] code = 1015) 218 K/UL CBC W/AUTO [id number] 00:00:00 Test Item Value Reference Range Interpretation [...] code = 1015) 218 K/UL CBC W/AUTO [id number] 00:00:00 Test Item Value Reference Range Interpretation [...] (test code = 1015) 218 K/UL HEMOGLOBIN [id number] 00:00:00 Test Item Value Reference Range Interpretation Comments HEMOGLOBIN A1c (test code = 74527) 5.9 % HEMOGLOBIN [id number] 00:00:00 Test Item Value Reference Range Interpretation Comments HEMOGLOBIN A1c (test code = 51673) 5.9 % HEMOGLOBIN [id number] 00:00:00 Test Item Value Reference Range Interpretation Comments HEMOGLOBIN A1c (test code = 87597) 5.9 % LIPID [id number] 00:00:00 Test Item Value Reference Range Interpretation Comments CHOLESTEROL (test code = 2210) 131 MG/DL TRIGLYCERIDES (test code = 2232) 190 MG/DL HDL CHOLESTEROL (test code = 2220) 42 MG/DL CALC LDL CHOL (test code = 2237) 63 MG/DL RISK RATIO LDL/HDL (test code = 1.50 RATIO 2238) LIPID [id number] 00:00:00 Test Item Value Reference Range Interpretation Comments CHOLESTEROL (test code = 2210) 131 MG/DL TRIGLYCERIDES (test code = 2232) 190 MG/DL HDL CHOLESTEROL (test code = 2220) 42 MG/DL CALC LDL CHOL (test code = 2237) 63 MG/DL RISK RATIO LDL/HDL (test code = 1.50 RATIO 2238) COMPREHENSIVE METABOLIC [id number] 00:00:00 Test Item Value Reference Range Interpretation Comments GLUCOSE (test code = 2217) 105 MG/DL BUN (test code = 2208) 17 MG/DL CREATININE (test code = 2214) 0.68 MG/DL eGFR AMER. (test code 107 ML/MIN/1.73 = 59000) eGFR NON- AMER. (test 92 ML/MIN/1.73 code = 38434) CALC BUN/CREAT (test code = 25 RATIO [...] code = 2219) 20 U/L COMPREHENSIVE METABOLIC [id number] 00:00:00 Test Item Value Reference Range Interpretation Comments GLUCOSE (test code = 2217) 105 MG/DL BUN (test code = 2208) 17 MG/DL CREATININE (test code = 2214) 0.68 MG/DL eGFR AMER. (test code 107 ML/MIN/1.73 = 16034) eGFR NON- AMER. (test 92 ML/MIN/1.73 code = 31206) CALC BUN/CREAT (test code = 25 RATIO [...] ALT (test code = 2219) 20 U/L [id number] 00:00:00 Test Item Value Reference Range Interpretation Comments TSH, THIRD GENERATION (test code 2.260 UIU/ML = 2821) [id number] 00:00:00 Test Item Value Reference Range Interpretation Comments TSH, THIRD GENERATION (test code 2.260 UIU/ML = 2821) [id number] 00:00:00 Test Item Value Reference Range Interpretation Comments TSH, THIRD GENERATION (test code 2.260 UIU/ML = 2821) CBC W/AUTO [id number] 00:00:00 Test Item Value Reference Range Interpretation [...] code = 1015) 218 K/UL CBC W/AUTO [id number] 00:00:00 Test Item Value Reference Range Interpretation [...] code = 1015) 218 K/UL CBC W/AUTO [id number] 00:00:00 Test Item Value Reference Range Interpretation [...] (test code = 1015) 218 K/UL HEMOGLOBIN [id number] 00:00:00 Test Item Value Reference Range Interpretation Comments HEMOGLOBIN A1c (test code = 30214) 5.9 % HEMOGLOBIN [id number] 00:00:00 Test Item Value Reference Range Interpretation Comments HEMOGLOBIN A1c (test code = 88443) 5.9 % HEMOGLOBIN [id number] 00:00:00 Test Item Value Reference Range Interpretation Comments HEMOGLOBIN A1c (test code = 52669) 5.9 % LIPID [id number] 00:00:00 Test Item Value Reference Range Interpretation Comments CHOLESTEROL (test code = 2210) 131 MG/DL TRIGLYCERIDES (test code = 2232) 190 MG/DL HDL CHOLESTEROL (test code = 2220) 42 MG/DL CALC LDL CHOL (test code = 2237) 63 MG/DL RISK RATIO LDL/HDL (test code = 1.50 RATIO 2238) LIPID [id number] 00:00:00 Test Item Value Reference Range Interpretation Comments CHOLESTEROL (test code = 2210) 131 MG/DL TRIGLYCERIDES (test code = 2232) 190 MG/DL HDL CHOLESTEROL (test code = 2220) 42 MG/DL CALC LDL CHOL (test code = 2237) 63 MG/DL RISK RATIO LDL/HDL (test code = 1.50 RATIO 2238) COMPREHENSIVE METABOLIC [id number] 00:00:00 Test Item Value Reference Range Interpretation Comments GLUCOSE (test code = 2217) 105 MG/DL BUN (test code = 2208) 17 MG/DL CREATININE (test code = 2214) 0.68 MG/DL eGFR AMER. (test code 107 ML/MIN/1.73 = 45345) eGFR NON- AMER. (test 92 ML/MIN/1.73 code = 88187) CALC BUN/CREAT (test code = 25 RATIO [...] code = 2219) 20 U/L COMPREHENSIVE METABOLIC [id number] 00:00:00 Test Item Value Reference Range Interpretation Comments GLUCOSE (test code = 2217) 105 MG/DL BUN (test code = 2208) 17 MG/DL CREATININE (test code = 2214) 0.68 MG/DL eGFR AMER. (test code 107 ML/MIN/1.73 = 73653) eGFR NON- AMER. (test 92 ML/MIN/1.73 code = 84678) CALC BUN/CREAT (test code = 25 RATIO [...] ALT (test code = 2219) 20 U/L [id number] 00:00:00 Test Item Value Reference Range Interpretation Comments TSH, THIRD GENERATION (test code 2.260 UIU/ML = 2821) [id number] 00:00:00 Test Item Value Reference Range Interpretation Comments TSH, THIRD GENERATION (test code 2.260 UIU/ML = 2821) [id number] 00:00:00 Test Item Value Reference Range Interpretation Comments TSH, THIRD GENERATION (test code 2.260 UIU/ML = 2821) CBC W/AUTO [id number] 00:00:00 Test Item Value Reference Range Interpretation [...] code = 1015) 218 K/UL CBC W/AUTO [id number] 00:00:00 Test Item Value Reference Range Interpretation [...] code = 1015) 218 K/UL CBC W/AUTO [id number] 00:00:00 Test Item Value Reference Range Interpretation [...] 204 mg/dL 70-110 H Notifi ed Provider [id number]) Lab Interpretation (test Abnormal code = 31251-3) [facility] METABOLIC PANEL (NA, K, CL, CO2, GLUCOSE, BUN, CREATININE, CA)2019-12-30 10:50:00 Test Item Value Reference Range Interpretation Comments NA (test code = 137 mmol/L 135-145 7030329848) K (test code = 4.1 mmol/L 3.5-5 9664602922) CL (test code = 103 mmol/L 98-108 7112946448) CO2 TOTAL (test code = 29 mmol/L 23-31 1487587709) AGAP (test code = 2-16 4363927470) BUN (test code = 21 mg/dL 7-23 9418962501) GLUCOSE (test code = 97 mg/dL 70-110 1276292838) CREATININE (test code 0.67 mg/dL 0.5-1.04 = 7187112099) CALCIUM (test code = 9.0 mg/dL 8.6-10.6 9795050934) eGFR Calculation mL/min/1.73m2 (Non-) (test code = 4109364061) eGFR Calculation mL/min/1.73m2 () (test code = 1543296058) JOSHUA (test code = JOSHUA) Association of [...] or urine or abnormalities in imaging tests). [id number] Test Item Value Reference Range Interpretation Comments MAGNESIUM (test code = 0311983487) 2.2 mg/dL 1.7-2.4 Lab Interpretation (test code = Normal 11386-4) [facility] WITH [id number] 10:26:00 Test Item Value Reference Range Interpretation Comments WBC (test code = See_Comment [Automated 5690-2) message] The sy stem which generated this [...] RDW-SD (test code = 44.0 fL 39-49.9 48952-5) RDW-CV (test code = 12.6 % 12-15.5 788-0) PLT (test code = See_Comment [Automated 777-3) message] The sy stem which generated this result transmitted reference range : 166 - 358 10*3/ ?L. The reference r ramona was not used to interpret this result as normal/abnormal . MPV (test code = 9.7 fL 9.5-12.9 86612-2) NRBC/100 WBC (test See_Comment [Automat ed code = 5263193454) message] The system which generated this result transmitted reference range : 0.0 - 10.0 /100 WBCs. The refer ence range was not u sed to interpret th is result as normal/abnormal . NRBC x10^3 (test code <0.01 See_Comment [Auto mated = 2288193834) message] The s ystem which generated this result transmitted reference range : 10*3/?L. The reference range was not used to interpret this result as normal/abnormal . GRAN MAT (NEUT) % 57.7 % (test code = 770-8) IMM GRAN % (test code 0.20 % = 7355151441) LYMPH % (test code = 31.8 % 736-9) MONO % (test code = 8.1 % 5905-5) EOS % (test code = 1.9 % 713-8) BASO % (test code = 0.3 % 706-2) GRAN MAT x10^3(ANC) 5.12 10*3/uL 1.88-7.09 (test code = 3996533377) IMM GRAN x10^3 (test <0.03 0-0.06 code = 2481262374) LYMPH x10^3 (test code 2.82 10*3/uL 1.32-3.29 = 731-0) MONO x10^3 (test code 0.72 10*3/uL 0.33-0.92 = 742-7) EOS x10^3 (test code = 0.17 10*3/uL 0.03-0.39 711-2) BASO x10^3 (test code 0.03 10*3/uL 0.01-0.07 = 704-7) Lab Interpretation Abnormal (test code = 58814-4) [facility] GLUCOSE (AUTOMATED)2019-12-30 01:52:00 Test Item Value Reference Range Interpretation Comments POCT GLU (test code = 1074365862) 199 mg/dL 70-110 H Lab Interpretation (test code = Abnormal 32668-9) [facility] GLUCOSE (AUTOMATED)2019-12-29 23:34:00 Test Item Value Reference Range Interpretation Comments POCT GLU (test code = 0226434465) 120 mg/dL 70-110 H Lab Interpretation (test code = Abnormal 06169-4) [facility] GLUCOSE (AUTOMATED)2019-12-29 14:02:00 Test Item Value Reference Range Interpretation Comments POCT GLU (test code = 1263557547) 99 mg/dL 70-110 Lab Interpretation (test code = Normal 09528-9) [facility] (NA, K, CL, CO2, GLUCOSE, BUN, CREATININE, CA)2019-12-29 11:40:00 Test Item Value Reference Range Interpretation Comments NA (test code = 139 mmol/L 135-145 7443485266) K (test code = 4.2 mmol/L 3.5-5 Slight 6734421794) hemolysis CL (test code = 104 mmol/L 98-108 2924918264) CO2 TOTAL (test code 30 mmol/L 23-31 = 5652696693) AGAP (test code = 2-16 4206242151) BUN (test code = 18 mg/dL 7-23 Slight 6919036221) hemolysis GLUCOSE (test code = 116 mg/dL 70-110 H 5645194066) CREATININE (test code 0.61 mg/dL 0.5-1.04 = 0062162284) CALCIUM (test code = 8.9 mg/dL 8.6-10.6 3101004567) eGFR Calculation mL/min/1.73m2 (Non-) (test code = 8522169417) eGFR Calculation mL/min/1.73m2 () (test code = 9459881623) JOSHUA (test code = JOSHUA) Association of [...] tests). Lab Interpretation Abnormal (test code = 66718-3) [facility] FallsMagn[facility] [id number] 11:40:00 Test Item Value Reference Range Interpretation Comments MAGNESIUM (test code = 2633706874) 2.2 mg/dL 1.7-2.4 Lab Interpretation (test code = Normal 88317-1) [facility]saPTT (for use with Heparin Drip)2019-12-29 11:21:00 Test Item Value Reference Range Interpretation Comments APTT Patient (test code See_Comment HH [Au tomated message] = 3173-2) The system [employer] generated this result transmitted ref erence range: 26 - 36 Seconds. The reference range was not used to int erpret this result as normal/abnormal . Lab Interpretation (test Abnormal code = 91498-6) [facility] GLUCOSE (AUTOMATED)2019-12-29 04:19:00 Test Item Value Reference Range Interpretation Comments POCT GLU (test code = 0034034087) 115 mg/dL 70-110 H Lab Interpretation (test code = Abnormal 45911-8) [facility] FallsLipid Panel (Total Cholesterol, Triglycerides, HDL) - [id number] 03:03:00 Test Item Value Reference Range Interpretation Comments CHOL (test code = 164 mg/dL 120-200 9804790503) HDL (test code = 61 mg/dL >50 9410722902) HDLC RATIO (test code = See_Comment [Au tomated message] 7614323484) The system [employer] generated this result transmit shikha reference range : <=4.5. The refe rence range was not u sed to interpret th is result as normal/abnormal . TRIG (test code = 63 mg/dL 30-170 5403106499) LDL CHOL (test code = 90 mg/dL See_Comment [Auto mated message] 78604-8) The system [employer] generated this result transmit shikha reference range : <=160. The refe rence range was not u sed to interpret th is result as normal/abnormal . VLDL (test code = 13 mg/dL 5-60 8632414992) Lab Interpretation (test Normal code = 90325-8) [facility] FallsaPTT (for use with Heparin Drip)2019-12-29 00:36:00 Test Item Value Reference Range Interpretation Comments APTT Patient (test code See_Comment H [Au tomated message] = 3173-2) The system [employer] generated this result transmitted ref erence range: 26 - 36 Seconds. The reference range was not used to int erpret this result as normal/abnormal . Lab Interpretation (test Abnormal code = 41061-3) [facility] FallsTROPONIN [id number] 21:42:00 Test Item Value Reference Range Interpretation Comments TROPONIN I (test 0.081 ng/mL See_Comment H [Automated code = 7482788356) message] The system which generated this result [...] ? Lab Interpretation Abnormal (test code = 19489-6) [facility] FallsProthrombin Time (PT) / [id number] 12:39:00 Test Item Value Reference Range Interpretation Comments PROTIME PATIENT (test See_Comment [Auto mated message] code = 5964-2) The system [employer] generated this result transmitted ref erence range: 10.1 - 1 2.6 Seconds. The re ference range was not u sed to interpret this result as normal/abnor mal. INR (test code = 6301-6) Nor mal INR <1.1; Warfarin Therap eutic range 2.0 to 3. 0 or 2.5 to 3.5, dep ending upon the indica tions. Lab Interpretation (test Normal code = 62935-6) [facility] FallsaPTT2020-11-19 12:39:00 Test Item Value Reference Range Interpretation Comments APTT Patient (test code = See_Comment [ Automated message] 3173-2) The system [employer] generated this result transmitted ref erence range: 26 - 36 Seconds. The re ference range was not u sed to interpret this result as normal/abnor mal. Lab Interpretation (test Normal code = 92284-9) [facility] FallsTroponin [id number] 11:11:00 Test Item Value Reference Range Interpretation Comments TROPONIN I (test 0.148 ng/mL See_Comment H [Automated code = 1314958833) message] The system which generated this result [...] ? Lab Interpretation Abnormal (test code = 68501-1) [facility] FallsGlycosylated Hemoglobin (A1C)2019-12-28 10:57:00 Test Item Value Reference Range Interpretation Comments HGB A1C (test code = 5.8 % 4-6 4548-4) JOSHUA (test code = JOSHUA) %A1C (NGSP) Interpretation (ADA)4.8-5.6 ? ? Normal or (Non-Diabetic Range)5.7-6.4 ? ? Increased Risk (Pre-Diabetic)>6.5 ?Diabetes Indicated Lab Interpretation Normal (test code = 07420-0) [facility] FallsThyroid Stimulating Hormone (TSH)2019-12-28 10:22:00 Test Item Value Reference Range Interpretation Comments TSH (test code = See_Comment Biotin has been 9771165955) reported to cau se a negative bias, interpret resul ts relative to pat ient's use of biotin. [Automated mess age] The system [employer] generated this result transmitted ref erence range: 0.45 - 4 .70 mIU/L. The refe rence range was not u sed to interpret this result as normal/abnor mal. Lab Interpretation (test Normal code = 81271-7) [facility] FallsN-Terminal Enn-[id number] 10:22:00 Test Item Value Reference Range Interpretation Comments NT-proBNP (test code 636 pg/mL See_Comment H [Autom ated = 4229530568) message] The system which generated this result transmitted reference range : <=125. The reference range was not used to interpret this result as normal/abnormal . JOSHUA (test code = JOSHUA) Biotin has been reported to cause a negative bias, interpret results relative to patient's use of biotin. Lab Interpretation Abnormal (test code = 34815-4) [facility] FallsCT CHEST PULMONARY [id number] 05:35:31 No acute pulmonary embolism through the [...] and agree with theabove report. [facility] FallsXR CHEST 1 [id number] 03:07:42 No acute cardiopulmonary abnormality. Preliminary Report [...] reviewed this study and agree with theabove report.[facility] FallsTRROPER HOSPITALNAVIN [id number] 02:26:00 Test Item Value Reference Range Interpretation Comments TROPONIN I (test 0.048 ng/mL See_Comment H [Automated code = 5376364178) message] The system which generated this result [...] ? Lab Interpretation Abnormal (test code = 21595-9) [facility] FallsCOVID- (ID NOW RAPID TESTING)2019-12-28 02:22:00 Test Item Value Reference Range Interpretation Comments SARS-CoV-2 Rapid ID NOW Not Detected Not Detected (test code = 50051-1) JOSHUA (test code = JOSHUA) ID NOW COVID-19 Assay is an isothermal nucleic acid amplification test intended for the qualitative detection of nucleic acid from SARS-CoV-2 viral RNA in nasopharyngeal (GROUP CIO) specimens. It is used under Emergency Use [...] indicated. Lab Interpretation Normal (test code = 32709-8) [facility]. METABOLIC PANEL (11859)2019-12-28 02:16:00 Test Item Value Reference Range Interpretation Comments NA (test code = 137 mmol/L 135-145 5471267361) K (test code = 3.8 mmol/L 3.5-5 5789628014) CL (test code = 101 mmol/L 98-108 6356307211) CO2 TOTAL (test code = 31 mmol/L 23-31 2524517558) AGAP (test code = 2-16 4230718048) BUN (test code = 18 mg/dL 7-23 4057033031) GLUCOSE (test code = 145 mg/dL 70-110 H 3940941860) CREATININE (test code = 0.55 mg/dL 0.5-1.04 7674710505) TOTAL BILI (test code = 0.4 mg/dL 0.1-1.1 5626793048) CALCIUM (test code = 8.8 mg/dL 8.6-10.6 3438926176) T PROTEIN (test code = 6.7 g/dL 6.3-8.2 0353112556) ALBUMIN (test code = 4.1 g/dL 3.5-5 2534157605) ALK PHOS (test code = 72 U/L 34-122 5347802192) ALTv (test code = 40 U/L 5-35 H 1742-6) AST(SGOT) (test code = 46 U/L 13-40 H 3832850297) eGFR Calculation mL/min/1.73m2 (Non-) (test code = 9950274423) eGFR Calculation mL/min/1.73m2 () (test code = 7967398555) JOSHUA (test code = JOSHUA) Association of [...] tests). Lab Interpretation Abnormal (test code = 25022-8) [facility] (NA, K, CL, CO2, GLUCOSE, BUN, CREATININE, CA)2019-12-28 02:16:00 Test Item Value Reference Range Interpretation Comments NA (test code = 137 mmol/L 135-145 5231558702) K (test code = 3.8 mmol/L 3.5-5 5912295516) CL (test code = 101 mmol/L 98-108 3029269666) CO2 TOTAL (test code = 31 mmol/L 23-31 7134476528) AGAP (test code = 2-16 6925761060) BUN (test code = 18 mg/dL 7-23 7025935492) GLUCOSE (test code = 145 mg/dL 70-110 H 0925844567) CREATININE (test code = 0.55 mg/dL 0.5-1.04 9092218203) CALCIUM (test code = 8.8 mg/dL 8.6-10.6 6545608165) eGFR Calculation mL/min/1.73m2 (Non-) (test code = 0185168261) eGFR Calculation mL/min/1.73m2 () (test code = 9529181053) JOSHUA (test code = JOSHUA) Association of [...] tests). Lab Interpretation Abnormal (test code = 69315-4) [facility] WITH [id number] 02:01:00 Test Item Value Reference Range Interpretation [...] RDW-SD (test code = 42.5 fL 39-49.9 89057-4) RDW-CV (test code = 12.2 % 12-15.5 788-0) PLT (test code = See_Comment [Automated 777-3) message] The sy stem which generated this result transmitted reference range : 166 - 358 10*3/ ?L. The reference r ramona was not used to interpret this result as normal/abnormal . MPV (test code = 9.7 fL 9.5-12.9 80945-0) NRBC/100 WBC (test See_Comment [Automat ed code = 3984162262) message] The system which generated this result transmitted reference range : 0.0 - 10.0 /100 WBCs. The refer ence range was not u sed to interpret th is result as normal/abnormal . NRBC x10^3 (test code <0.01 See_Comment [Auto mated = 4151498595) message] The s ystem which generated this result transmitted reference range : 10*3/?L. The reference range was not used to interpret this result as normal/abnormal . GRAN MAT (NEUT) % 52.2 % (test code = 770-8) IMM GRAN % (test code 0.30 % = 5770109831) LYMPH % (test code = 36.0 % 736-9) MONO % (test code = 7.3 % 5905-5) EOS % (test code = 3.7 % 713-8) BASO % (test code = 0.5 % 706-2) GRAN MAT x10^3(ANC) 3.36 10*3/uL 1.88-7.09 (test code = 3134969279) IMM GRAN x10^3 (test <0.03 0-0.06 code = 5176992637) LYMPH x10^3 (test code 2.32 10*3/uL 1.32-3.29 = 731-0) MONO x10^3 (test code 0.47 10*3/uL 0.33-0.92 = 742-7) EOS x10^3 (test code = 0.24 10*3/uL 0.03-0.39 711-2) BASO x10^3 (test code 0.03 10*3/uL 0.01-0.07 = 704-7) Lab Interpretation Abnormal (test code = 38751-4) [facility] FallsCOMPREHENS[facility] METABOLIC [id number] 00:00:00 Test Item Value Reference Range Interpretation Comments GLUCOSE (test code = 2217) 110 MG/DL BUN (test code = 2208) 17 MG/DL CREATININE (test code = 2214) 0.63 MG/DL eGFR AMER. (test code 111 ML/MIN/1.73 = 77426) eGFR NON- AMER. (test 95 ML/MIN/1.73 code = 76876) CALC BUN/CREAT (test code = 27 RATIO [...] code = 2219) 26 U/L COMPREHENSIVE METABOLIC [id number] 00:00:00 Test Item Value Reference Range Interpretation Comments GLUCOSE (test code = 2217) 110 MG/DL BUN (test code = 2208) 17 MG/DL CREATININE (test code = 2214) 0.63 MG/DL eGFR AMER. (test code 111 ML/MIN/1.73 = 63586) eGFR NON- AMER. (test 95 ML/MIN/1.73 code = 84489) CALC BUN/CREAT (test code = 27 RATIO [...] code = 2219) 26 U/L COMPREHENSIVE METABOLIC [id number] 00:00:00 Test Item Value Reference Range Interpretation Comments GLUCOSE (test code = 2217) 110 MG/DL BUN (test code = 2208) 17 MG/DL CREATININE (test code = 2214) 0.63 MG/DL eGFR AMER. (test code 111 ML/MIN/1.73 = 02565) eGFR NON- AMER. (test 95 ML/MIN/1.73 code = 15241) CALC BUN/CREAT (test code = 27 RATIO [...] code = 2219) 26 U/L COMPREHENSIVE METABOLIC [id number] 00:00:00 Test Item Value Reference Range Interpretation Comments GLUCOSE (test code = 2217) 110 MG/DL BUN (test code = 2208) 17 MG/DL CREATININE (test code = 2214) 0.63 MG/DL eGFR AMER. (test code 111 ML/MIN/1.73 = 99326) eGFR NON- AMER. (test 95 ML/MIN/1.73 code = 19486) CALC BUN/CREAT (test code = 27 RATIO [...] code = 2219) 26 U/L COMPREHENSIVE METABOLIC [id number] 00:00:00 Test Item Value Reference Range Interpretation Comments GLUCOSE (test code = 2217) 110 MG/DL BUN (test code = 2208) 17 MG/DL CREATININE (test code = 2214) 0.63 MG/DL eGFR AMER. (test code 111 ML/MIN/1.73 = 12577) eGFR NON- AMER. (test 95 ML/MIN/1.73 code = 43542) CALC BUN/CREAT (test code = 27 RATIO [...] code = 2219) 26 U/L COMPREHENSIVE METABOLIC [id number] 00:00:00 Test Item Value Reference Range Interpretation Comments GLUCOSE (test code = 2217) 110 MG/DL BUN (test code = 2208) 17 MG/DL CREATININE (test code = 2214) 0.63 MG/DL eGFR AMER. (test code 111 ML/MIN/1.73 = 78926) eGFR NON- AMER. (test 95 ML/MIN/1.73 code = 68577) CALC BUN/CREAT (test code = 27 RATIO [...] = 0.3 MG/DL 2207) ALKALINE PHOSPHATASE (test 49 U/L code = 2204) AST (test code = 2218) 27 U/L ALT (test code = 2219) 26 U/L COMPREHENSIVE METABOLIC [id number] 00:00:00 Test Item Value Reference Range Interpretation Comments GLUCOSE (test code = 2217) 110 MG/DL BUN (test code = 2208) 17 MG/DL CREATININE (test code = 2214) 0.63 MG/DL eGFR AMER. (test code 111 ML/MIN/1.73 = 93233) eGFR NON- AMER. (test 95 ML/MIN/1.73 code = 52374) CALC BUN/CREAT (test code = 27 RATIO [...] code = 2219) 26 U/L COMPREHENSIVE METABOLIC [id number] 00:00:00 Test Item Value Reference Range Interpretation Comments GLUCOSE (test code = 2217) 110 MG/DL BUN (test code = 2208) 17 MG/DL CREATININE (test code = 2214) 0.63 MG/DL eGFR AMER. (test code 111 ML/MIN/1.73 = 79194) eGFR NON- AMER. (test 95 ML/MIN/1.73 code = 99400) CALC BUN/CREAT (test code = 27 RATIO [...] ALT (test code = 2219) 26 U/L CBC W/AUTO [id number] 00:00:00 Test Item Value Reference Range Interpretation [...] code = 1015) 268 K/UL COMPREHENSIVE METABOLIC [id number] 00:00:00 Test Item Value Reference Range Interpretation Comments GLUCOSE (test code = 2217) 78 MG/DL BUN (test code = 2208) 13 MG/DL CREATININE (test code = 2214) 0.57 MG/DL eGFR AMER. (test code 114 ML/MIN/1.73 = 59730) eGFR NON- AMER. (test 99 ML/MIN/1.73 code = 51603) CALC BUN/CREAT (test code = 23 RATIO [...] code = 2219) 27 U/L COMPREHENSIVE METABOLIC [id number] 00:00:00 Test Item Value Reference Range Interpretation Comments GLUCOSE (test code = 2217) 78 MG/DL BUN (test code = 2208) 13 MG/DL CREATININE (test code = 2214) 0.57 MG/DL eGFR AMER. (test code 114 ML/MIN/1.73 = 36510) eGFR NON- AMER. (test 99 ML/MIN/1.73 code = 46284) CALC BUN/CREAT (test code = 23 RATIO [...] code = 2219) 27 U/L CBC W/AUTO [id number] 00:00:00 Test Item Value Reference Range Interpretation [...] code = 1015) 268 K/UL CBC W/AUTO [id number] 00:00:00 Test Item Value Reference Range Interpretation [...] code = 1015) 268 K/UL CBC W/AUTO [id number] 00:00:00 Test Item Value Reference Range Interpretation [...] code = 1015) 268 K/UL COMPREHENSIVE METABOLIC [id number] 00:00:00 Test Item Value Reference Range Interpretation Comments GLUCOSE (test code = 2217) 78 MG/DL BUN (test code = 2208) 13 MG/DL CREATININE (test code = 2214) 0.57 MG/DL eGFR AMER. (test code 114 ML/MIN/1.73 = 69862) eGFR NON- AMER. (test 99 ML/MIN/1.73 code = 73544) CALC BUN/CREAT (test code = 23 RATIO [...] code = 2219) 27 U/L COMPREHENSIVE METABOLIC [id number] 00:00:00 Test Item Value Reference Range Interpretation Comments GLUCOSE (test code = 2217) 78 MG/DL BUN (test code = 2208) 13 MG/DL CREATININE (test code = 2214) 0.57 MG/DL eGFR AMER. (test code 114 ML/MIN/1.73 = 02042) eGFR NON- AMER. (test 99 ML/MIN/1.73 code = 19387) CALC BUN/CREAT (test code = 23 RATIO [...] code = 2219) 27 U/L CBC W/AUTO [id number] 00:00:00 Test Item Value Reference Range Interpretation [...] code = 1015) 268 K/UL CBC W/AUTO [id number] 00:00:00 Test Item Value Reference Range Interpretation [...] code = 1015) 268 K/UL CBC W/AUTO [id number] 00:00:00 Test Item Value Reference Range Interpretation [...] code = 1015) 268 K/UL COMPREHENSIVE METABOLIC [id number] 00:00:00 Test Item Value Reference Range Interpretation Comments GLUCOSE (test code = 2217) 78 MG/DL BUN (test code = 2208) 13 MG/DL CREATININE (test code = 2214) 0.57 MG/DL eGFR AMER. (test code 114 ML/MIN/1.73 = 78958) eGFR NON- AMER. (test 99 ML/MIN/1.73 code = 39438) CALC BUN/CREAT (test code = 23 RATIO [...] code = 2219) 27 U/L COMPREHENSIVE METABOLIC [id number] 00:00:00 Test Item Value Reference Range Interpretation Comments GLUCOSE (test code = 2217) 78 MG/DL BUN (test code = 2208) 13 MG/DL CREATININE (test code = 2214) 0.57 MG/DL eGFR AMER. (test code 114 ML/MIN/1.73 = 28929) eGFR NON- AMER. (test 99 ML/MIN/1.73 code = 28904) CALC BUN/CREAT (test code = 23 RATIO [...] code = 2219) 27 U/L CBC W/AUTO [id number] 00:00:00 Test Item Value Reference Range Interpretation [...] code = 1015) 268 K/UL CBC W/AUTO [id number] 00:00:00 Test Item Value Reference Range Interpretation [...] code = 1015) 268 K/UL CBC W/AUTO [id number] 00:00:00 Test Item Value Reference Range Interpretation [...] code = 1015) 268 K/UL COMPREHENSIVE METABOLIC [id number] 00:00:00 Test Item Value Reference Range Interpretation Comments GLUCOSE (test code = 2217) 78 MG/DL BUN (test code = 2208) 13 MG/DL CREATININE (test code = 2214) 0.57 MG/DL eGFR AMER. (test code 114 ML/MIN/1.73 = 74537) eGFR NON- AMER. (test 99 ML/MIN/1.73 code = 66814) CALC BUN/CREAT (test code = 23 RATIO [...] code = 2219) 27 U/L COMPREHENSIVE METABOLIC [id number] 00:00:00 Test Item Value Reference Range Interpretation Comments GLUCOSE (test code = 2217) 78 MG/DL BUN (test code = 2208) 13 MG/DL CREATININE (test code = 2214) 0.57 MG/DL eGFR AMER. (test code 114 ML/MIN/1.73 = 21067) eGFR NON- AMER. (test 99 ML/MIN/1.73 code = 34461) CALC BUN/CREAT (test code = 23 RATIO [...] code = 2219) 27 U/L CBC W/AUTO [id number] 00:00:00 Test Item Value Reference Range Interpretation [...] code = 1015) 268 K/UL CBC W/AUTO [id number] 00:00:00 Test Item Value Reference Range Interpretation [...] code = 1015) 268 K/UL Chest 1 [id number] 22:39:59 No acute cardiopulmonary abnormality. Emphysematous changes. [...] abovereport.[facility] FallsTroponin [id number] 22:28:00 Test Item Value Reference Range Interpretation Comments TROPONIN I (test <0.012 See_Comment [Automated code = 3940551056) message] The system which generated this result [...] ? Lab Interpretation Normal (test code = 03247-8) [facility] FallsN-TERMINAL [id number] 22:24:00 Test Item Value Reference Range Interpretation Comments NT-proBNP (test code 675 pg/mL See_Comment H [Autom ated = 1268774527) message] The system which generated this result transmitted reference range : <=125. The reference range was not used to interpret this result as normal/abnormal . JOSHUA (test code = JOSHUA) Biotin has been reported to cause a negative bias, interpret results relative to patient's use of biotin. Lab Interpretation Abnormal (test code = 62880-1) [facility] FallsProthrombin Time (PT) / [id number] 22:20:00 Test Item Value Reference Range Interpretation [...] tions. Lab Interpretation (test Normal code = 72054-8) [facility] (NA, K, CL, CO2, GLUCOSE, BUN, CREATININE, CA)2019-07-27 22:17:00 Test Item Value Reference Range Interpretation Comments NA (test code = 138 mmol/L 135-145 8206397825) K (test code = 4.4 mmol/L 3.5-5 4724366276) CL (test code = 101 mmol/L 98-108 6224553992) CO2 TOTAL (test code = 28 mmol/L 23-31 0703270784) AGAP (test code = 2-16 4262103931) BUN (test code = 16 mg/dL 7-23 0076201223) GLUCOSE (test code = 88 mg/dL 70-110 7207856732) CREATININE (test code 0.55 mg/dL 0.5-1.04 = 3682346813) CALCIUM (test code = 10.1 mg/dL 8.6-10.6 2339391204) eGFR Calculation mL/min/1.73m2 (Non-) (test code = 8890287240) eGFR Calculation mL/min/1.73m2 () (test code = 9975655873) JOSHUA (test code = JOSHUA) Association of [...] or abnormalities in imaging tests). [facility] FallsHepatic Function Panel (ALB, T.PRO, BILI T, BU/BC, ALT, AST, ALK PHOS)2019-07-27 22:17:00 Test Item Value Reference Range Interpretation Comments TOTAL BILI (test code = 9078760576) 0.7 mg/dL 0.1-1.1 BILI UNCON (test code = 9712375975) 0.8 mg/dL 0.1-1.1 BILI CONJ (test code = 5621073499) 0.0 mg/dL 0-0.3 T PROTEIN (test code = 6569527488) 7.7 g/dL 6.3-8.2 ALBUMIN (test code = 8437638736) 4.8 g/dL 3.5-5 ALK PHOS (test code = 5322084355) 49 U/L 34-122 ALTv (test code = 1742-6) 35 U/L 5-35 AST(SGOT) (test code = 9922488627) 42 U/L 13-40 H Lab Interpretation (test code = Abnormal 03776-5) [facility] FallsCOVID-19 (ID NOW RAPID TESTING)2019-07-27 22:16:00 Test Item Value Reference Range Interpretation Comments SARS-CoV-2 Rapid ID NOW Not Detected Not Detected (test code = 99548-0) JOSHUA (test code = JOSHUA) ID NOW COVID-19 Assay is an isothermal nucleic acid amplification test intended for the qualitative detection of nucleic acid from SARS-CoV-2 viral RNA in nasopharyngeal (GROUP CIO) specimens. It is used under Emergency Use [...] indicated. Lab Interpretation Normal (test code = 69949-8) [facility] WITH [id number] 21:58:00 Test Item Value Reference Range Interpretation Comments WBC (test code = See_Comment [Automated 7705-2) message] The sy stem which generated this result transmitted reference range : 4.30 - 11.10 10*3/?L. The reference range was not used to interpret this result as normal/abnormal . RBC (test code = See_Comment [Automated 420-8) message] The sy stem which generated this [...] RDW-SD (test code = 41.4 fL 39-49.9 74486-3) RDW-CV (test code = 12.2 % 12-15.5 788-0) PLT (test code = See_Comment [Automated 777-3) message] The sy stem which generated this result transmitted reference range : 166 - 358 10*3/ ?L. The reference r ramona was not used to interpret this result as normal/abnormal . MPV (test code = 9.7 fL 9.5-12.9 61838-4) NRBC/100 WBC (test See_Comment [Automat ed code = 7815932719) message] The system which generated this result transmitted reference range : 0.0 - 10.0 /100 WBCs. The refer ence range was not u sed to interpret th is result as normal/abnormal . NRBC x10^3 (test code <0.01 See_Comment [Auto mated = 3038370190) message] The s ystem which generated this result transmitted reference range : 10*3/?L. The reference range was not used to interpret this result as normal/abnormal . GRAN MAT (NEUT) % 72.2 % (test code = 770-8) IMM GRAN % (test code 0.40 % = 5525226375) LYMPH % (test code = 19.5 % 736-9) MONO % (test code = 5.2 % 5905-5) EOS % (test code = 2.1 % 713-8) BASO % (test code = 0.6 % 706-2) GRAN MAT x10^3(ANC) 7.15 10*3/uL 1.88-7.09 H (test code = 7498555632) IMM GRAN x10^3 (test 0.04 10*3/uL 0-0.06 code = 5144272748) LYMPH x10^3 (test code 1.93 10*3/uL 1.32-3.29 = 731-0) MONO x10^3 (test code 0.52 10*3/uL 0.33-0.92 = 742-7) EOS x10^3 (test code = 0.21 10*3/uL 0.03-0.39 711-2) BASO x10^3 (test code 0.06 10*3/uL 0.01-0.07 = 704-7) Lab Interpretation Abnormal (test code = 01253-2) [facility] FallsCOMPREHENSIVE METABOLIC [id number] 00:00:00 Test Item Value Reference Range Interpretation Comments GLUCOSE (test code = 2217) 113 MG/DL BUN (test code = 2208) 8 MG/DL CREATININE (test code = 2214) 0.64 MG/DL eGFR AMER. (test code 110 ML/MIN/1.73 = 73406) eGFR NON- AMER. (test 95 ML/MIN/1.73 code = 86845) CALC BUN/CREAT (test code = 13 RATIO [...] code = 2219) 28 U/L COMPREHENSIVE METABOLIC [id number] 00:00:00 Test Item Value Reference Range Interpretation Comments GLUCOSE (test code = 2217) 113 MG/DL BUN (test code = 2208) 8 MG/DL CREATININE (test code = 2214) 0.64 MG/DL eGFR AMER. (test code 110 ML/MIN/1.73 = 59360) eGFR NON- AMER. (test 95 ML/MIN/1.73 code = 31334) CALC BUN/CREAT (test code = 13 RATIO [...] code = 2219) 28 U/L COMPREHENSIVE METABOLIC [id number] 00:00:00 Test Item Value Reference Range Interpretation Comments GLUCOSE (test code = 2217) 113 MG/DL BUN (test code = 2208) 8 MG/DL CREATININE (test code = 2214) 0.64 MG/DL eGFR AMER. (test code 110 ML/MIN/1.73 = 83263) eGFR NON- AMER. (test 95 ML/MIN/1.73 code = 47099) CALC BUN/CREAT (test code = 13 RATIO [...] code = 2219) 28 U/L COMPREHENSIVE METABOLIC [id number] 00:00:00 Test Item Value Reference Range Interpretation Comments GLUCOSE (test code = 2217) 113 MG/DL BUN (test code = 2208) 8 MG/DL CREATININE (test code = 2214) 0.64 MG/DL eGFR AMER. (test code 110 ML/MIN/1.73 = 25785) eGFR NON- AMER. (test 95 ML/MIN/1.73 code = 17804) CALC BUN/CREAT (test code = 13 RATIO [...] code = 2219) 28 U/L COMPREHENSIVE METABOLIC [id number] 00:00:00 Test Item Value Reference Range Interpretation Comments GLUCOSE (test code = 2217) 113 MG/DL BUN (test code = 2208) 8 MG/DL CREATININE (test code = 2214) 0.64 MG/DL eGFR AMER. (test code 110 ML/MIN/1.73 = 06803) eGFR NON- AMER. (test 95 ML/MIN/1.73 code = 42833) CALC BUN/CREAT (test code = 13 RATIO [...] code = 2219) 28 U/L COMPREHENSIVE METABOLIC [id number] 00:00:00 Test Item Value Reference Range Interpretation Comments GLUCOSE (test code = 2217) 113 MG/DL BUN (test code = 2208) 8 MG/DL CREATININE (test code = 2214) 0.64 MG/DL eGFR AMER. (test code 110 ML/MIN/1.73 = 72412) eGFR NON- AMER. (test 95 ML/MIN/1.73 code = 48993) CALC BUN/CREAT (test code = 13 RATIO [...] code = 2219) 28 U/L COMPREHENSIVE METABOLIC [id number] 00:00:00 Test Item Value Reference Range Interpretation Comments GLUCOSE (test code = 2217) 113 MG/DL BUN (test code = 2208) 8 MG/DL CREATININE (test code = 2214) 0.64 MG/DL eGFR AMER. (test code 110 ML/MIN/1.73 = 44822) eGFR NON- AMER. (test 95 ML/MIN/1.73 code = 57563) CALC BUN/CREAT (test code = 13 RATIO [...] code = 2219) 28 U/L COMPREHENSIVE METABOLIC [id number] 00:00:00 Test Item Value Reference Range Interpretation Comments GLUCOSE (test code = 2217) 113 MG/DL BUN (test code = 2208) 8 MG/DL CREATININE (test code = 2214) 0.64 MG/DL eGFR AMER. (test code 110 ML/MIN/1.73 = 52338) eGFR NON- AMER. (test 95 ML/MIN/1.73 code = 10635) CALC BUN/CREAT (test code = 13 RATIO [...] (test code = 2219) 28 U/L LIPID [id number] 00:00:00 Test Item Value Reference Range Interpretation Comments CHOLESTEROL (test code = 2210) 138 MG/DL TRIGLYCERIDES (test code = 2232) 158 MG/DL HDL CHOLESTEROL (test code = 2220) 43 MG/DL CALC LDL CHOL (test code = 2237) 63 MG/DL RISK RATIO LDL/HDL (test code = 1.47 RATIO 2238) COMPREHENSIVE METABOLIC [id number] 00:00:00 Test Item Value Reference Range Interpretation Comments GLUCOSE (test code = 2217) 103 MG/DL BUN (test code = 2208) 13 MG/DL CREATININE (test code = 2214) 0.83 MG/DL eGFR AMER. (test code 88 ML/MIN/1.73 = 22861) eGFR NON- AMER. (test 76 ML/MIN/1.73 code = 04001) CALC BUN/CREAT (test code = 16 RATIO [...] code = 2219) 20 U/L COMPREHENSIVE METABOLIC [id number] 00:00:00 Test Item Value Reference Range Interpretation Comments GLUCOSE (test code = 2217) 103 MG/DL BUN (test code = 2208) 13 MG/DL CREATININE (test code = 2214) 0.83 MG/DL eGFR AMER. (test code 88 ML/MIN/1.73 = 16119) eGFR NON- AMER. (test 76 ML/MIN/1.73 code = 49082) CALC BUN/CREAT (test code = 16 RATIO [...] (test code = 2219) 20 U/L HEMOGLOBIN [id number] 00:00:00 Test Item Value Reference Range Interpretation Comments HEMOGLOBIN A1c (test code = 37205) 5.9 % HEMOGLOBIN [id number] 00:00:00 Test Item Value Reference Range Interpretation Comments HEMOGLOBIN A1c (test code = 58151) 5.9 % HEMOGLOBIN [id number] 00:00:00 Test Item Value Reference Range Interpretation Comments HEMOGLOBIN A1c (test code = 65731) 5.9 % LIPID [id number] 00:00:00 Test Item Value Reference Range Interpretation Comments CHOLESTEROL (test code = 2210) 138 MG/DL TRIGLYCERIDES (test code = 2232) 158 MG/DL HDL CHOLESTEROL (test code = 2220) 43 MG/DL CALC LDL CHOL (test code = 2237) 63 MG/DL RISK RATIO LDL/HDL (test code = 1.47 RATIO 2238) LIPID [id number] 00:00:00 Test Item Value Reference Range Interpretation Comments CHOLESTEROL (test code = 2210) 138 MG/DL TRIGLYCERIDES (test code = 2232) 158 MG/DL HDL CHOLESTEROL (test code = 2220) 43 MG/DL CALC LDL CHOL (test code = 2237) 63 MG/DL RISK RATIO LDL/HDL (test code = 1.47 RATIO 2238) COMPREHENSIVE METABOLIC [id number] 00:00:00 Test Item Value Reference Range Interpretation Comments GLUCOSE (test code = 2217) 103 MG/DL BUN (test code = 2208) 13 MG/DL CREATININE (test code = 2214) 0.83 MG/DL eGFR AMER. (test code 88 ML/MIN/1.73 = 74614) eGFR NON- AMER. (test 76 ML/MIN/1.73 code = 74368) CALC BUN/CREAT (test code = 16 RATIO [...] code = 2219) 20 U/L COMPREHENSIVE METABOLIC [id number] 00:00:00 Test Item Value Reference Range Interpretation Comments GLUCOSE (test code = 2217) 103 MG/DL BUN (test code = 2208) 13 MG/DL CREATININE (test code = 2214) 0.83 MG/DL eGFR AMER. (test code 88 ML/MIN/1.73 = 41906) eGFR NON- AMER. (test 76 ML/MIN/1.73 code = 17448) CALC BUN/CREAT (test code = 16 RATIO [...] (test code = 2219) 20 U/L HEMOGLOBIN [id number] 00:00:00 Test Item Value Reference Range Interpretation Comments HEMOGLOBIN A1c (test code = 30931) 5.9 % HEMOGLOBIN [id number] 00:00:00 Test Item Value Reference Range Interpretation Comments HEMOGLOBIN A1c (test code = 34193) 5.9 % HEMOGLOBIN [id number] 00:00:00 Test Item Value Reference Range Interpretation Comments HEMOGLOBIN A1c (test code = 74665) 5.9 % LIPID [id number] 00:00:00 Test Item Value Reference Range Interpretation Comments CHOLESTEROL (test code = 2210) 138 MG/DL TRIGLYCERIDES (test code = 2232) 158 MG/DL HDL CHOLESTEROL (test code = 2220) 43 MG/DL CALC LDL CHOL (test code = 2237) 63 MG/DL RISK RATIO LDL/HDL (test code = 1.47 RATIO 2238) LIPID [id number] 00:00:00 Test Item Value Reference Range Interpretation Comments CHOLESTEROL (test code = 2210) 138 MG/DL TRIGLYCERIDES (test code = 2232) 158 MG/DL HDL CHOLESTEROL (test code = 2220) 43 MG/DL CALC LDL CHOL (test code = 2237) 63 MG/DL RISK RATIO LDL/HDL (test code = 1.47 RATIO 2238) COMPREHENSIVE METABOLIC [id number] 00:00:00 Test Item Value Reference Range Interpretation Comments GLUCOSE (test code = 2217) 103 MG/DL BUN (test code = 2208) 13 MG/DL CREATININE (test code = 2214) 0.83 MG/DL eGFR AMER. (test code 88 ML/MIN/1.73 = 16237) eGFR NON- AMER. (test 76 ML/MIN/1.73 code = 82985) CALC BUN/CREAT (test code = 16 RATIO 2235) SODIUM (test code = 2231) 141 MEQ/L POTASSIUM (test code = 2228) 4.7 MEQ/L CHLORIDE (test code = 2215) 98 MEQ/L CARBON DIOXIDE (test code = 26 MEQ/L 2205) CALCIUM (test code = 2209) 9.9 MG/DL PROTEIN, TOTAL (test code = 7.1 G/DL 2228) ALBUMIN (test code = 220) 4.8 G/DL CALC GLOBULIN (test code = 2.3 G/DL 2239) CALC A/G RATIO (test code = 2.1 RATIO 2234) BILIRUBIN, TOTAL (test code = 0.4 MG/DL 2206) ALKALINE PHOSPHATASE (test 59 U/L code = 2204) AST (test code = 2218) 26 U/L ALT (test code = 2219) 20 U/L COMPREHENSIVE METABOLIC [id number] 00:00:00 Test Item Value Reference Range Interpretation Comments GLUCOSE (test code = 2217) 103 MG/DL BUN (test code = 2208) 13 MG/DL CREATININE (test code = 2214) 0.83 MG/DL eGFR AMER. (test code 88 ML/MIN/1.73 = 79373) eGFR NON- AMER. (test 76 ML/MIN/1.73 code = 64989) CALC BUN/CREAT (test code = 16 RATIO [...] (test code = 2219) 20 U/L HEMOGLOBIN [id number] 00:00:00 Test Item Value Reference Range Interpretation Comments HEMOGLOBIN A1c (test code = 54851) 5.9 % HEMOGLOBIN [id number] 00:00:00 Test Item Value Reference Range Interpretation Comments HEMOGLOBIN A1c (test code = 01938) 5.9 % HEMOGLOBIN [id number] 00:00:00 Test Item Value Reference Range Interpretation Comments HEMOGLOBIN A1c (test code = 19791) 5.9 % LIPID [id number] 00:00:00 Test Item Value Reference Range Interpretation Comments CHOLESTEROL (test code = 2210) 138 MG/DL TRIGLYCERIDES (test code = 2232) 158 MG/DL HDL CHOLESTEROL (test code = 2220) 43 MG/DL CALC LDL CHOL (test code = 2237) 63 MG/DL RISK RATIO LDL/HDL (test code = 1.47 RATIO 2238) LIPID [id number] 00:00:00 Test Item Value Reference Range Interpretation Comments CHOLESTEROL (test code = 2210) 138 MG/DL TRIGLYCERIDES (test code = 2232) 158 MG/DL HDL CHOLESTEROL (test code = 2220) 43 MG/DL CALC LDL CHOL (test code = 2237) 63 MG/DL RISK RATIO LDL/HDL (test code = 1.47 RATIO 2238) COMPREHENSIVE METABOLIC [id number] 00:00:00 Test Item Value Reference Range Interpretation Comments GLUCOSE (test code = 2217) 103 MG/DL BUN (test code = 2208) 13 MG/DL CREATININE (test code = 2214) 0.83 MG/DL eGFR AMER. (test code 88 ML/MIN/1.73 = 59905) eGFR NON- AMER. (test 76 ML/MIN/1.73 code = 79396) CALC BUN/CREAT (test code = 16 RATIO 2235) SODIUM (test code = 2231) 141 MEQ/L POTASSIUM (test code = 2228) 4.7 MEQ/L CHLORIDE (test code = 2215) 98 MEQ/L CARBON DIOXIDE (test code = 26 MEQ/L 6) CALCIUM (test code = 2209) 9.9 MG/DL [...] code = 2219) 20 U/L COMPREHENSIVE METABOLIC [id number] 00:00:00 Test Item Value Reference Range Interpretation Comments GLUCOSE (test code = 2217) 103 MG/DL BUN (test code = 2208) 13 MG/DL CREATININE (test code = 2214) 0.83 MG/DL eGFR AMER. (test code 88 ML/MIN/1.73 = 87033) eGFR NON- AMER. (test 76 ML/MIN/1.73 code = 62417) CALC BUN/CREAT (test code = 16 RATIO [...] (test code = 2219) 20 U/L HEMOGLOBIN [id number] 00:00:00 Test Item Value Reference Range Interpretation Comments HEMOGLOBIN A1c (test code = 78213) 5.9 % HEMOGLOBIN [id number] 00:00:00 Test Item Value Reference Range Interpretation Comments HEMOGLOBIN A1c (test code = 25197) 5.9 % HEMOGLOBIN [id number] 00:00:00 Test Item Value Reference Range Interpretation Comments HEMOGLOBIN A1c (test code = 02602) 5.9 % LIPID [id number] 00:00:00 Test Item Value Reference Range Interpretation Comments CHOLESTEROL (test code = 2210) 138 MG/DL TRIGLYCERIDES (test code = 2232) 158 MG/DL HDL CHOLESTEROL (test code = 2220) 43 MG/DL CALC LDL CHOL (test code = 2237) 63 MG/DL RISK RATIO LDL/HDL (test code = 1.47 RATIO 8) HEMOGLOBIN [id number] 00:00:00 Test Item Value Reference Range Interpretation Comments HEMOGLOBIN A1c (test code = 52979) 6.2 % HEMOGLOBIN [id number] 00:00:00 Test Item Value Reference Range Interpretation Comments HEMOGLOBIN A1c (test code = 50685) 6.2 % HEMOGLOBIN [id number] 00:00:00 Test Item Value Reference Range Interpretation Comments HEMOGLOBIN A1c (test code = 72662) 6.2 % HEMOGLOBIN [id number] 00:00:00 Test Item Value Reference Range Interpretation Comments HEMOGLOBIN A1c (test code = 94479) 6.2 % HEMOGLOBIN [id number] 00:00:00 Test Item Value Reference Range Interpretation Comments HEMOGLOBIN A1c (test code = 16822) 6.2 % HEMOGLOBIN [id number] 00:00:00 Test Item Value Reference Range Interpretation Comments HEMOGLOBIN A1c (test code = 73831) 6.2 % HEMOGLOBIN [id number] 00:00:00 Test Item Value Reference Range Interpretation Comments HEMOGLOBIN A1c (test code = 11992) 6.2 % HEMOGLOBIN [id number] 00:00:00 Test Item Value Reference Range Interpretation Comments HEMOGLOBIN A1c (test code = 88944) 6.2 % HEMOGLOBIN [id number] 00:00:00 Test Item Value Reference Range Interpretation Comments HEMOGLOBIN A1c (test code = 85089) 6.2 % HEMOGLOBIN [id number] 00:00:00 Test Item Value Reference Range Interpretation Comments HEMOGLOBIN A1c (test code = 32995) 6.2 % HEMOGLOBIN [id number] 00:00:00 Test Item Value Reference Range Interpretation Comments HEMOGLOBIN A1c (test code = 85751) 6.2 % HEMOGLOBIN [id number] 00:00:00 Test Item Value Reference Range Interpretation Comments HEMOGLOBIN A1c (test code = 99458) 6.2 % [id number] 00:00:00 Test Item Value Reference Range Interpretation Comments POTASSIUM (test code = 2228) 4.9 MEQ/L [id number] 00:00:00 Test Item Value Reference Range Interpretation Comments POTASSIUM (test code = 2228) 4.9 MEQ/L [id number] 00:00:00 Test Item Value Reference Range Interpretation Comments POTASSIUM (test code = 2228) 4.9 MEQ/L [id number] 00:00:00 Test Item Value Reference Range Interpretation Comments POTASSIUM (test code = 2228) 4.9 MEQ/L [id number] 00:00:00 Test Item Value Reference Range Interpretation Comments POTASSIUM (test code = 2228) 4.9 MEQ/L [id number] 00:00:00 Test Item Value Reference Range Interpretation Comments POTASSIUM (test code = 2228) 4.9 MEQ/L [id number] 00:00:00 Test Item Value Reference Range Interpretation Comments POTASSIUM (test code = 2228) 4.9 MEQ/L [id number] 00:00:00 Test Item Value Reference Range Interpretation Comments POTASSIUM (test code = 2228) 4.9 MEQ/L COMPREHENSIVE METABOLIC [id number] 00:00:00 Test Item Value Reference Range Interpretation Comments GLUCOSE (test code = 2217) 108 MG/DL BUN (test code = 2208) 13 MG/DL CREATININE (test code = 2214) 0.75 MG/DL eGFR AMER. (test code 99 ML/MIN/1.73 = 71913) eGFR NON- AMER. (test 85 ML/MIN/1.73 code = 72961) CALC BUN/CREAT (test code = 17 RATIO [...] (test code = 2219) 22 U/L HEMOGLOBIN [id number] 00:00:00 Test Item Value Reference Range Interpretation Comments HEMOGLOBIN A1c (test code = 91704) 6.8 % HEMOGLOBIN [id number] 00:00:00 Test Item Value Reference Range Interpretation Comments HEMOGLOBIN A1c (test code = 03029) 6.8 % HEMOGLOBIN [id number] 00:00:00 Test Item Value Reference Range Interpretation Comments HEMOGLOBIN A1c (test code = 00866) 6.8 % COMPREHENSIVE METABOLIC [id number] 00:00:00 Test Item Value Reference Range Interpretation Comments GLUCOSE (test code = 2217) 108 MG/DL BUN (test code = 2208) 13 MG/DL CREATININE (test code = 2214) 0.75 MG/DL eGFR AMER. (test code 99 ML/MIN/1.73 = 08796) eGFR NON- AMER. (test 85 ML/MIN/1.73 code = 92573) CALC BUN/CREAT (test code = 17 RATIO [...] code = 2219) 22 U/L COMPREHENSIVE METABOLIC [id number] 00:00:00 Test Item Value Reference Range Interpretation Comments GLUCOSE (test code = 2217) 108 MG/DL BUN (test code = 2208) 13 MG/DL CREATININE (test code = 2214) 0.75 MG/DL eGFR AMER. (test code 99 ML/MIN/1.73 = 33448) eGFR NON- AMER. (test 85 ML/MIN/1.73 code = 59197) CALC BUN/CREAT (test code = 17 RATIO [...] (test code = 2219) 22 U/L HEMOGLOBIN [id number] 00:00:00 Test Item Value Reference Range Interpretation Comments HEMOGLOBIN A1c (test code = 19382) 6.8 % HEMOGLOBIN [id number] 00:00:00 Test Item Value Reference Range Interpretation Comments HEMOGLOBIN A1c (test code = 46616) 6.8 % HEMOGLOBIN [id number] 00:00:00 Test Item Value Reference Range Interpretation Comments HEMOGLOBIN A1c (test code = 42793) 6.8 % COMPREHENSIVE METABOLIC [id number] 00:00:00 Test Item Value Reference Range Interpretation Comments GLUCOSE (test code = 2217) 108 MG/DL BUN (test code = 2208) 13 MG/DL CREATININE (test code = 2214) 0.75 MG/DL eGFR AMER. (test code 99 ML/MIN/1.73 = 58712) eGFR NON- AMER. (test 85 ML/MIN/1.73 code = 44102) CALC BUN/CREAT (test code = 17 RATIO [...] code = 2219) 22 U/L COMPREHENSIVE METABOLIC [id number] 00:00:00 Test Item Value Reference Range Interpretation Comments GLUCOSE (test code = 2217) 108 MG/DL BUN (test code = 2208) 13 MG/DL CREATININE (test code = 2214) 0.75 MG/DL eGFR AMER. (test code 99 ML/MIN/1.73 = 50733) eGFR NON- AMER. (test 85 ML/MIN/1.73 code = 86392) CALC BUN/CREAT (test code = 17 RATIO [...] (test code = 2219) 22 U/L HEMOGLOBIN [id number] 00:00:00 Test Item Value Reference Range Interpretation Comments HEMOGLOBIN A1c (test code = 55149) 6.8 % HEMOGLOBIN [id number] 00:00:00 Test Item Value Reference Range Interpretation Comments HEMOGLOBIN A1c (test code = 96376) 6.8 % HEMOGLOBIN [id number] 00:00:00 Test Item Value Reference Range Interpretation Comments HEMOGLOBIN A1c (test code = 37522) 6.8 % COMPREHENSIVE METABOLIC [id number] 00:00:00 Test Item Value Reference Range Interpretation Comments GLUCOSE (test code = 2217) 108 MG/DL BUN (test code = 2208) 13 MG/DL CREATININE (test code = 2214) 0.75 MG/DL eGFR AMER. (test code 99 ML/MIN/1.73 = 35071) eGFR NON- AMER. (test 85 ML/MIN/1.73 code = 87813) CALC BUN/CREAT (test code = 17 RATIO [...] code = 2219) 22 U/L COMPREHENSIVE METABOLIC [id number] 00:00:00 Test Item Value Reference Range Interpretation Comments GLUCOSE (test code = 2217) 108 MG/DL BUN (test code = 2208) 13 MG/DL CREATININE (test code = 2214) 0.75 MG/DL eGFR AMER. (test code 99 ML/MIN/1.73 = 11321) eGFR NON- AMER. (test 85 ML/MIN/1.73 code = 38714) CALC BUN/CREAT (test code = 17 RATIO [...] (test code = 2219) 22 U/L HEMOGLOBIN [id number] 00:00:00 Test Item Value Reference Range Interpretation Comments HEMOGLOBIN A1c (test code = 88294) 6.8 % HEMOGLOBIN [id number] 00:00:00 Test Item Value Reference Range Interpretation Comments HEMOGLOBIN A1c (test code = 23978) 6.8 % HEMOGLOBIN [id number] 00:00:00 Test Item Value Reference Range Interpretation Comments HEMOGLOBIN A1c (test code = 88357) 6.8 % COMPREHENSIVE METABOLIC [id number] 00:00:00 Test Item Value Reference Range Interpretation Comments GLUCOSE (test code = 2217) 108 MG/DL BUN (test code = 2208) 13 MG/DL CREATININE (test code = 2214) 0.75 MG/DL eGFR AMER. (test code 99 ML/MIN/1.73 = 20328) eGFR NON- AMER. (test 85 ML/MIN/1.73 code = 54850) CALC BUN/CREAT (test code = 17 RATIO [...] ALT (test code = 2219) 22 U/L LIPID PANEL [ADDED]2018-01-05 00:00:00 Test Item Value [...] eGFR AMER. (test code 93 ML/MIN/1.73 = 66878) eGFR NON- AMER. (test 80 ML/MIN/1.73 code = 41938) CALC BUN/CREAT (test code = 15 RATIO [...] eGFR AMER. (test code 93 ML/MIN/1.73 = 73422) eGFR NON- AMER. (test 80 ML/MIN/1.73 code = 42331) CALC BUN/CREAT (test code = 15 RATIO [...] Interpretation Comments HEMOGLOBIN A1c (test code = 82983) 7.3 % HEMOGLOBIN A1c [ADDED]2018-01-05 00:00:00 Test Item Value Reference Range Interpretation Comments HEMOGLOBIN A1c (test code = 12989) 7.3 % HEMOGLOBIN A1c [ADDED]2018-01-05 00:00:00 Test Item Value Reference Range Interpretation Comments HEMOGLOBIN A1c (test code = 28957) 7.3 % LIPID PANEL [ADDED]2018-01-05 00:00:00 Test [...] eGFR AMER. (test code 93 ML/MIN/1.73 = 98744) eGFR NON- AMER. (test 80 ML/MIN/1.73 code = 62104) CALC BUN/CREAT (test code = 15 RATIO 2235) SODIUM (test code = 2231) 139 MEQ/L POTASSIUM (test code = 2228) 5.3 MEQ/L CHLORIDE (test code = 2215) 102 MEQ/L CARBON DIOXIDE (test code = 23 MEQ/L 2206) CALCIUM (test code = 2209) 9.6 MG/DL PROTEIN, TOTAL (test code = 7.3 G/DL 2229) ALBUMIN (test code = 2201) [...] eGFR AMER. (test code 93 ML/MIN/1.73 = 53714) eGFR NON- AMER. (test 80 ML/MIN/1.73 code = 62425) CALC BUN/CREAT (test code = 15 RATIO 2235) SODIUM (test code = 2231) 139 MEQ/L POTASSIUM (test code = 2228) 5.3 MEQ/L CHLORIDE (test code = 2215) 102 MEQ/L CARBON DIOXIDE (test code = 23 MEQ/L 2205) CALCIUM (test code = 2209) 9.6 MG/DL PROTEIN, TOTAL (test code = 7.3 G/DL 2229) ALBUMIN (test code = 2201) [...] Interpretation Comments HEMOGLOBIN A1c (test code = 83054) 7.3 % HEMOGLOBIN A1c [ADDED]2018-01-05 00:00:00 Test Item Value Reference Range Interpretation Comments HEMOGLOBIN A1c (test code = 71721) 7.3 % HEMOGLOBIN A1c [ADDED]2018-01-05 00:00:00 Test Item Value Reference Range Interpretation Comments HEMOGLOBIN A1c (test code = 98657) 7.3 % LIPID PANEL [ADDED]2018-01-05 00:00:00 Test [...] eGFR AMER. (test code 93 ML/MIN/1.73 = 27902) eGFR NON- AMER. (test 80 ML/MIN/1.73 code = 32953) CALC BUN/CREAT (test code = 15 RATIO [...] eGFR AMER. (test code 93 ML/MIN/1.73 = 48037) eGFR NON- AMER. (test 80 ML/MIN/1.73 code = 35395) CALC BUN/CREAT (test code = 15 RATIO [...] Interpretation Comments HEMOGLOBIN A1c (test code = 61449) 7.3 % HEMOGLOBIN A1c [ADDED]2018-01-05 00:00:00 Test Item Value Reference Range Interpretation Comments HEMOGLOBIN A1c (test code = 53117) 7.3 % HEMOGLOBIN A1c [ADDED]2018-01-05 00:00:00 Test Item Value Reference Range Interpretation Comments HEMOGLOBIN A1c (test code = 08330) 7.3 % LIPID PANEL [ADDED]2018-01-05 00:00:00 Test [...] eGFR AMER. (test code 93 ML/MIN/1.73 = 20200) eGFR NON- AMER. (test 80 ML/MIN/1.73 code = 01780) CALC BUN/CREAT (test code = 15 RATIO 2235) SODIUM (test code = 2231) 139 MEQ/L POTASSIUM (test code = 2228) 5.3 MEQ/L CHLORIDE (test code = 2215) 102 MEQ/L CARBON DIOXIDE (test code = 23 MEQ/L 2206) CALCIUM (test code = 2209) 9.6 MG/DL PROTEIN, TOTAL (test code = 7.3 G/DL 2229) ALBUMIN (test code = 2201) [...] eGFR AMER. (test code 93 ML/MIN/1.73 = 02812) eGFR NON- AMER. (test 80 ML/MIN/1.73 code = 91973) CALC BUN/CREAT (test code = 15 RATIO 2235) SODIUM (test code = 2231) 139 MEQ/L POTASSIUM (test code = 2228) 5.3 MEQ/L CHLORIDE (test code = 2215) 102 MEQ/L CARBON DIOXIDE (test code = 23 MEQ/L 2205) CALCIUM (test code = 2209) 9.6 MG/DL PROTEIN, TOTAL (test code = 7.3 G/DL 2228) ALBUMIN (test code = 220) [...] Interpretation Comments HEMOGLOBIN A1c (test code = 65713) 7.3 % HEMOGLOBIN A1c [ADDED]2018-01-05 00:00:00 Test Item Value Reference Range Interpretation Comments HEMOGLOBIN A1c (test code = 23218) 7.3 % HEMOGLOBIN A1c [ADDED]2018-01-05 00:00:00 Test Item Value Reference Range Interpretation Comments HEMOGLOBIN A1c (test code = 49422) 7.3 % COMPREHENSIVE METABOLIC [id number] 00:00:00 Test Item Value Reference Range Interpretation Comments GLUCOSE (test code = 2217) 109 MG/DL BUN (test code = 8) 13 MG/DL CREATININE (test code = 2214) 0.66 MG/DL eGFR AMER. (test code 110 ML/MIN/1.73 = 00415) eGFR NON- AMER. (test 95 ML/MIN/1.73 code = 68803) CALC BUN/CREAT (test code = 20 RATIO [...] code = 2219) 27 U/L COMPREHENSIVE METABOLIC [id number] 00:00:00 Test Item Value Reference Range Interpretation Comments GLUCOSE (test code = 2217) 109 MG/DL BUN (test code = 2208) 13 MG/DL CREATININE (test code = 2214) 0.66 MG/DL eGFR AMER. (test code 110 ML/MIN/1.73 = 11411) eGFR NON- AMER. (test 95 ML/MIN/1.73 code = 60237) CALC BUN/CREAT (test code = 20 RATIO [...] code = 2219) 27 U/L COMPREHENSIVE METABOLIC [id number] 00:00:00 Test Item Value Reference Range Interpretation Comments GLUCOSE (test code = 2217) 109 MG/DL BUN (test code = 2208) 13 MG/DL CREATININE (test code = 2214) 0.66 MG/DL eGFR AMER. (test code 110 ML/MIN/1.73 = 66537) eGFR NON- AMER. (test 95 ML/MIN/1.73 code = 61415) CALC BUN/CREAT (test code = 20 RATIO [...] code = 2219) 27 U/L COMPREHENSIVE METABOLIC [id number] 00:00:00 Test Item Value Reference Range Interpretation Comments GLUCOSE (test code = 2217) 109 MG/DL BUN (test code = 2208) 13 MG/DL CREATININE (test code = 2214) 0.66 MG/DL eGFR AMER. (test code 110 ML/MIN/1.73 = 45352) eGFR NON- AMER. (test 95 ML/MIN/1.73 code = 50469) CALC BUN/CREAT (test code = 20 RATIO [...] code = 2219) 27 U/L COMPREHENSIVE METABOLIC [id number] 00:00:00 Test Item Value Reference Range Interpretation Comments GLUCOSE (test code = 2217) 109 MG/DL BUN (test code = 2208) 13 MG/DL CREATININE (test code = 2214) 0.66 MG/DL eGFR AMER. (test code 110 ML/MIN/1.73 = 45117) eGFR NON- AMER. (test 95 ML/MIN/1.73 code = 53901) CALC BUN/CREAT (test code = 20 RATIO [...] code = 2219) 27 U/L COMPREHENSIVE METABOLIC [id number] 00:00:00 Test Item Value Reference Range Interpretation Comments GLUCOSE (test code = 2217) 109 MG/DL BUN (test code = 2208) 13 MG/DL CREATININE (test code = 2214) 0.66 MG/DL eGFR AMER. (test code 110 ML/MIN/1.73 = 93725) eGFR NON- AMER. (test 95 ML/MIN/1.73 code = 39132) CALC BUN/CREAT (test code = 20 RATIO [...] code = 2219) 27 U/L COMPREHENSIVE METABOLIC [id number] 00:00:00 Test Item Value Reference Range Interpretation Comments GLUCOSE (test code = 2217) 109 MG/DL BUN (test code = 2208) 13 MG/DL CREATININE (test code = 2214) 0.66 MG/DL eGFR AMER. (test code 110 ML/MIN/1.73 = 15738) eGFR NON- AMER. (test 95 ML/MIN/1.73 code = 55430) CALC BUN/CREAT (test code = 20 RATIO [...] code = 2219) 27 U/L COMPREHENSIVE METABOLIC [id number] 00:00:00 Test Item Value Reference Range Interpretation Comments GLUCOSE (test code = 2217) 109 MG/DL BUN (test code = 2208) 13 MG/DL CREATININE (test code = 2214) 0.66 MG/DL eGFR AMER. (test code 110 ML/MIN/1.73 = 71471) eGFR NON- AMER. (test 95 ML/MIN/1.73 code = 35700) CALC BUN/CREAT (test code = 20 RATIO 2235) SODIUM (test code = 2231) 142 MEQ/L POTASSIUM (test code = 2228) 4.7 MEQ/L CHLORIDE (test code = 2215) 102 MEQ/L CARBON DIOXIDE (test code = 24 MEQ/L 2206) CALCIUM (test code = 220) 9.7 MG/DL [...]
[2022-08-03 19:15] LABS: Absolute Lymphocytes (CBC) 0.7 K/uL (0.7-4.9); Hematocrit 44.3 % (36.0-45.0); Lymphocytes % 7.4 % (15.3-44.8); MCV 93.6 fL (80-100); MPV 7.9 fL (7.6-11.3); RBC Red Blood Cell Count 4.74 M/uL (3.86-4.86)
[2022-08-03 19:27] LABS: Specific Gravity 1.018 (1.005-1.030); Urine Bacteria <20 /HPF (<20); Urine Bilirubin NEGATIVE (Negative); Urine Blood 1+ (Negative); Urine Clarity Clear (Clear); Urine Color Colorless (Yellow); Urine Glucose 4+ (Over) (Negative); Urine Mucus Slight /HPF (None Seen); Urine Protein 3+ (Negative); Urine RBC 21-50 /HPF (None Seen); Urine Urobilinogen Normal (Normal)
[2022-08-03 19:28] LABS: Protime INR 0.95
[2022-08-03 19:30] LABS: SARS-CoV-2 Antigen Rapid Res Negative (Negative)
[2022-08-03 19:36] LABS: Albumin 3.7 g/dL (3.4-5.0); Bilirubin Total 0.3 mg/dL (0.2-1.0); Potassium 4.4 mEq/L (3.5-5.1); Protein, Total 7.4 g/dL (6.4-8.2); Troponin High Sensitivity 18.3 pg/mL (<58.9)
--- NOTE | 2022-08-03 19:43 | RAD REPORT ---
EXAM DESCRIPTION: [facility] Single View08/03/2022 7:34 pm CLINICAL HISTORY: Shortness breath COMPARISON: June 2022 FINDINGS: The lungs are moderately hyperaerated. The lungs appear clear of acute infiltrate. The hea rt is normal size IMPRESSION: No acute abnormalities displayed
--- NOTE | 2022-08-03 20:25 | ER ---
Nurse's Notes [facility] Name: Dalia Reyes Age: 66 yrs Sex: Female : 1955 Arrival Date: 08/03/2022 Time: 18:17 Bed 7 Private MD: Diagnosis: COPD/ Chronic obstructive pulmonary disease with (acute) exacerbation Presentation: 08/03 18:27 Chief complaint: EMS states: called out for respiratory distress. Pt reportedly self ss administered albuterol x 2 and Atrovent x 1. EMS reports that patient appeared to be in distress initially, but significantly improved shortly after their arrival. HX of COPD. Coronavirus screen:. Ebola Screen: Patient denies exposure to infectious person. Patient denies travel to an Ebola-affected area in the 21 days before illness onset. Initial Sepsis Screen: Does the patient meet any 2 criteria? No. Patient's initial sepsis screen is negative. Does the patient have a suspected source of infection? No. Patient's initial sepsis screen is negative. Risk Assessment: Do you want to hurt yourself or someone else? Patient reports no desire to harm self or others. Onset of symptoms was August 03, 2022. 18:27 Method Of Arrival: EMS: [facility] ss 18:27 Acuity: CONSTANTINO 2 ss Triage Assessment: 18:40 General: Appears in no apparent distress. Behavior is calm, cooperative, Denies fever, ph feeling ill. Pain: Denies pain. Neuro: Level of Consciousness is awake, alert, obeys commands, Oriented to person, place, time, situation. Cardiovascular: Capillary refill < 3 seconds in bilateral fingers Patient's skin is warm and dry. Respiratory: Reports shortness of breath at rest Onset: The symptoms/episode began/occurred gradually, the patient has moderate shortness of breath. GI: No signs and/or symptoms were reported involving the gastrointestinal system. Derm: Skin is pink, warm \T\ dry. Musculoskeletal: Circulation, motion, and sensation intact. Range of motion: intact in all extremities. Historical: - Allergies: 18:31 Benadryl; ss 18:31 Lorazepam; ss 18:31 Valium; ss - PMHx: 18:31 Chronic obstructive lung disease; diabetes mellitus; Emphysema; Hypercholesterolemia; ss Hypertensive disorder; - PSHx: 18:31 section; Heart Stents; ss - Immunization history:: Adult Immunizations unknown. - Family history:: not pertinent. - Hospitalizations: : No recent hospitalization is reported. Screenin:33 [facility] ED Fall Risk Assessment (Adult) History of falling in the last 3 months, ph including since admission No falls in past 3 months (0 pts) Confusion or Disorientation No (0 pts) Intoxicated or Sedated No (0 pts) Impaired Gait Yes (1 pt) Mobility Assist Device Used No (0 pt) Altered Elimination No (0 pt) Score/Fall Risk Level 0 - 2 = Low Risk Oriented to surroundings, Maintained a safe environment, Hourly rounding (assess needs \T\ fall precautionary measures) done. Abuse screen: Denies threats or abuse. Denies injuries from another. Nutritional screening: No deficits noted. Tuberculosis screening: No symptoms or risk factors identified. Assessment: 19:00 Reassessment: see triage note. jb4 20:17 Reassessment: Patient appears in no apparent distress at this time. Patient and/or jb4 family updated on plan of care and expected duration. Pain level reassessed. Patient is alert, oriented x 3, equal unlabored respirations, skin warm/dry/pink. 21:45 Reassessment: Patient appears in no apparent distress at this time. Patient is alert, kl oriented x 3, equal unlabored respirations, skin warm/dry/pink. Patient denies pain at this time. Patient states feeling better. Patient states symptoms have improved. Cardiovascular: Rhythm is regular. 22:01 Reassessment: Patient appears in no apparent distress at this time. Patient and/or jb4 family updated on plan of care and expected duration. Pain level reassessed. Patient is alert, oriented x 3, equal unlabored respirations, skin warm/dry/pink. Vital Signs: 18:27 BP 157 / 93; Pulse 121; Resp 22; Temp 98.4(O); Pulse Ox 96% on 2.5 lpm NC; Weight 61.69 ss kg; Height 5 ft. 6 in. ; Pain 0/10; 19:12 BP 144 / 96; Pulse 106; Resp 20; Pulse Ox 95% on 2.5 lpm NC; ph 21:44 BP 148 / 90; Pulse 89; Resp 24; Pulse Ox 99% on 2 lpm NC; kl 18:27 Body Mass Index 21.95 (61.69 kg, 167.64 cm) ss 18:27 Pain Scale: Adult ss ED Course: 18:26 Patient arrived in ED. rn 18:26 Kal Diehl MD is Attending Physician. rn 18:31 Triage completed. ss 18:32 Lea Choi, SIDDHARTH is Primary Nurse. 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 18:33 Patient has correct armband on for positive identification. Bed in low position. Call ph light in reach. Side rails up X 1. Client placed on continuous cardiac and pulse oximetry monitoring. NIBP monitoring applied. Door closed. Noise minimized. 19:05 Initial lab(s) drawn, by me, sent to lab. First set of blood cultures drawn by me, ph Urine collected: clean catch specimen, clear. 19:09 Urinalysis w/ reflexes Sent. ph 19:09 Ptt, Activated Sent. ph 19:09 Protime (+inr) Sent. ph 19:09 Lactate w/ 2H reflex if indic. Sent. ph 19:09 CMP Sent. ph 19:09 CBC with Diff Sent. ph 19:10 Inserted saline lock: 20 gauge in left antecubital area, using aseptic technique. Blood ph collected. 19:36 Chest Single View XRAY In Process Unspecified. EDMS 21:45 No provider procedures requiring assistance completed. IV discontinued, intact, kl bleeding controlled, No redness/swelling at site. Pressure dressing applied. Administered Medications: 20:43 Drug: Magnesium Sulfate IVPB 1 grams Route: IVPB; Infused Over: 1 hrs; Site: left jb4 antecubital; 21:44 Follow up: IV Status: Completed infusion; IV Intake: 100ml kl 20:43 Drug: Levalbuterol Inhalation 1.25 mg Route: Inhalation; jb4 21:44 Drug: MethylPrednisoLONE IVP 125 mg Route: IVP; Site: left antecubital; kl 21:45 Follow up: Response: No adverse reaction kl Medication: 18:33 VIS not applicable for this client. ph Intake: 21:44 IV: 100ml; Total: 100ml. kl Outcome: 20:24 Discharge ordered by . rn 22:01 Discharged to home via wheelchair, with family. jb4 22:01 Condition: stable 22:01 Discharge instructions given to patient, Instructed on discharge instructions, follow up and referral plans. medication usage, Demonstrated understanding of instructions, follow-up care, medications, Prescriptions given X 1. 22:01 Patient left the ED. jb4 Signatures: Dispatcher [employer] Mitali Shultz, RN Kal Jama MD MD rn Blanchard, Shelby, RN RN ss Hall, Patricia, RN RN ph Bryson, James, RN RN jb4 Corrections: (The following items were deleted from the chart) 19:09 19:08 SARS-COV-2 Antigen Rapid+I.LAB.BRZ drawn and sent. MONCHO
--- NOTE | 2022-08-03 20:25 | EDPHYS ---
Physician Documentation [facility] Name: Dalia Reyes Age: 66 yrs Sex: Female : 1955 Arrival Date: 08/03/2022 Time: 18:17 Bed 7 Private MD: ED Physician Kal Diehl HPI: 08/03 18:30 This 66 yrs old Female presents to ER via Unassigned with complaints of sob. rn 18:30 The patient has shortness of breath at rest. Onset: The symptoms/episode began/occurred rn this morning. The patient's shortness of breath is aggravated by coughing, is alleviated by nebulizer treatment. Associated signs and symptoms: Pertinent positives: productive cough, Pertinent negatives: fever, hemoptysis. Severity of symptoms: At their worst the symptoms were moderate in the emergency department the symptoms are unchanged. The patient has experienced similar episodes in the past. The patient has not recently seen a physician. Pt reports woke up with sob this AM, improved with nebulizer, EMS reports found hunched over and mottled, tachycardic to 150s, no fever. No trauma. . Historical: - Allergies: 18:31 Benadryl; ss 18:31 Lorazepam; ss 18:31 Valium; ss - PMHx: 18:31 Chronic obstructive lung disease; diabetes mellitus; Emphysema; Hypercholesterolemia; ss Hypertensive disorder; - PSHx: 18:31 section; Heart Stents; ss - Immunization history:: Adult Immunizations unknown. - Family history:: not pertinent. - Hospitalizations: : No recent hospitalization is reported. ROS: 18:30 Constitutional: Negative for fever, chills, and weight loss, Cardiovascular: Negative rn for chest pain, palpitations, and edema, Respiratory: + cough and sob Abdomen/GI: Negative for abdominal pain, nausea, vomiting, diarrhea, and constipation, MS/Extremity: Negative for injury and deformity, Skin: Negative for injury, rash, and discoloration, Neuro: Negative for headache, numbness, tingling, and seizure. Exam: 18:30 Constitutional: This is a well developed, well nourished patient who is awake, alert, rn mild tachypnea Head/Face: Normocephalic, atraumatic. Cardiovascular: tachycardic, regular Respiratory: + mild tachypnea with wheezing bilaterally, no retractions Abdomen/GI: soft, non-tender Skin: Warm, dry MS/ Extremity: Pulses equal, no cyanosis. Neuro: Awake and alert, GCS 15 Vital Signs: 18:27 BP 157 / 93; Pulse 121; Resp 22; Temp 98.4(O); Pulse Ox 96% on 2.5 lpm NC; Weight 61.69 ss kg; Height 5 ft. 6 in. ; Pain 0/10; 19:12 BP 144 / 96; Pulse 106; Resp 20; Pulse Ox 95% on 2.5 lpm NC; ph 21:44 BP 148 / 90; Pulse 89; Resp 24; Pulse Ox 99% on 2 lpm NC; kl 18:27 Body Mass Index 21.95 (61.69 kg, 167.64 cm) ss 18:27 Pain Scale: Adult ss MDM: 18:26 Patient medically screened. rn 20:23 Differential diagnosis: Anemia Anxiety Reaction Bronchitis CHF exacerbation, Myocardial rn Infarction pneumonia, Pneumothorax. 20:23 Data reviewed: vital signs, nurses notes, lab test result(s), EKG, radiologic studies, rn plain films, and as a result, I will admit patient. Consideration of Admission/Observation Escalation of care including admission/observation considered. Counseling: I had a detailed discussion with the patient and/or guardian regarding: the historical points, exam findings, and any diagnostic results supporting the discharge/admit diagnosis, lab results. Response to treatment: the patient's symptoms have markedly improved after treatment, and as a result, I will admit patient. Refusal of service: The patient/guardian displays adequate decision making capability and despite a detailed discussion of alternatives, benefits, risks, and consequences refuses: Admission to the hospital for further work-up and treatment. ED course: Pt insists on going home, daughter here, cannot convince her to stay, will dc home per her wishes and with prednisone, has nebs at home. Daughter is power of insurance defense attorney and states if returns in extremis, is DNR, but does not have DNR paperwork. . 08/03 18: Order name: Blood Culture Adult (2) rn 08/03 18: Order name: CBC with Diff; Complete Time: 19:50 rn 08/03 18: Order name: CMP; Complete Time: 19:50 rn 08/03 18: Order name: Lactate w/ 2H reflex if indic.; Complete Time: 20:05 rn 08/03 18:27 Order name: Protime (+inr); Complete Time: 19:50 rn 08/03 18:27 Order name: Ptt, Activated; Complete Time: 19:50 rn 08/03 18:27 Order name: Urinalysis w/ reflexes; Complete Time: 19:50 rn 08/03 18:27 Order name: Flu; Complete Time: 19:50 rn 08/03 18:27 Order name: SARS RAPID; Complete Time: 19:50 rn 08/03 18:27 Order name: BNP; Complete Time: 19:50 rn 08/03 18:27 Order name: Troponin High Sensitivity; Complete Time: 19:50 rn 08/03 18:27 Order name: Chest Single View XRAY; Complete Time: 19:50 rn 08/03 18:27 Order name: EKG; Complete Time: 18:28 rn 08/03 18:27 Order name: Accucheck; Complete Time: 19:09 rn 08/03 18:27 Order name: Cardiac monitoring; Complete Time: 19:09 rn 08/03 18:27 Order name: EKG - Nurse/Tech; Complete Time: 19:12 rn 08/03 18:27 Order name: IV Saline Lock - Large Bore; Complete Time: 19:09 rn 08/03 18:27 Order name: Labs collected and sent; Complete Time: 19:09 rn 08/03 18:27 Order name: O2 Per Protocol; Complete Time: 18:34 rn 08/03 18:27 Order name: O2 Sat Monitoring; Complete Time: 18:33 rn 08/03 18:27 Order name: Vital Signs; Complete Time: 18:33 rn Administered Medications: 20:43 Drug: Magnesium Sulfate IVPB 1 grams Route: IVPB; Infused Over: 1 hrs; Site: left 4 antecubital; 21:44 Follow up: IV Status: Completed infusion; IV Intake: 100ml kl 20:43 Drug: Levalbuterol Inhalation 1.25 mg Route: Inhalation; [facility] 21:44 Drug: MethylPrednisoLONE IVP 125 mg Route: IVP; Site: left antecubital; kl 21:45 Follow up: Response: No adverse reaction kl Disposition Summary: 08/03/22 20:24 Discharge Ordered Location: Home rn Problem: an acute exacerbation rn Symptoms: have improved rn Condition: Stable rn Diagnosis - COPD/ Chronic obstructive pulmonary disease with (acute) exacerbation rn Followup: rn - With: Private Physician - When: As needed - Reason: Recheck today's complaints, Re-evaluation by your physician Discharge Instructions: - Discharge Summary Sheet rn - Chronic Obstructive Pulmonary Disease Exacerbation rn Forms: - Medication Reconciliation Form rn - Thank You Letter rn - Antibiotic patternmaker metal - Prescription Opioid Use rn - [email or web address] rn Prescriptions: - Prednisone 20 mg Oral Tablet - take 3 tablets by ORAL route once daily for 5 days; 15 tablet; Refills: 0, rn Product Selection Permitted Signatures: Dispatcher [employer] EDMS Mitali Johnson RN RN Kal Burger MD MD rn Blanchard, Shelby, RN RN ss Hall, Patricia, RN RN ph Bryson, James, RN RN jb4 Corrections: (The following items were deleted from the chart) 19:09 18:28 SARS-COV-2 Antigen Rapid+I.LAB.BRZ ordered. EDMS EDMS 20:48 20:06 Chest For PE Angio+CT.RAD.BRZ ordered. EDMS EDMS
[2022-08-03] MEDS ORDERED: MAGNESIUM SULFATE 1 gm IVPB 1 GM/100 ML BAG IV ONE (20:43)
[2022-08-03] MEDS ORDERED: LEVALBUTEROL 1.25 MG/3 ML NEB ONE (20:43)
[2022-08-03] MEDS ORDERED: METHYLPREDNISOLONE 125 MG INJ ONE (21:16)
[2022-08-03 22:35] VITALS: TEMP 98.4
[2022-08-03 22:42] VITALS: BP 148/90; O2SAT 99
--- NOTE | 2022-08-04 20:38 | EKG ---
Test Date: 2022-08-03 Test Time: 19:10:37 Family Independence Case Manager: ROGERIO MEASUREMENT RESULTS: Intervals: Rate: 101 ME: 146 QRSD: 82 QT: 360 QTc: 466 Emerson: P: 86 ME: 146 QRS: 79 T: 82 INTERPRETIVE STATEMENTS: Sinus tachycardia Right atrial enlargement Borderline ECG Compared to ECG 07/02/2022 20:25:25 Sinus rhythm no longer present Electronically Signed On 08-04-22 20:33:05 CDT by Ramses Palmer
== END 2022-08-03 22:01 | disposition home or self-care (01) ==
LOC: ER 18:17
DX: J44.1 Chronic obstructive pulmonary disease with (acute) exacerbation (principal); I10 Essential (primary) hypertension; Z20.822 Contact with and (suspected) exposure to COVID-19; Z88.5 Allergy status to narcotic agent; Z88.8 Allergy status to other drugs, medicaments and biological substances
CPT/HCPCS: 87040; 85025; 81001; 36415; 85610; 83605; 85730; 84484; 80053; 83880; 87804 ×2; 71045; 87811; J3475; J7614; J2930; 93005

== ENCOUNTER 2022-08-03 22:54 | Observation (INO) | payer OTHER ==
--- OUTSIDE RECORDS SUMMARY | 2022-08-03 23:12 | XMS REPORT | Continuity of Care Document ---
:1955 Author Organization [facility] t Address [address] [place] [address] [address] [place] [address] Care Team Providers Name Role Phone Asked, No Pcp Primary Care Physician Unavailable Zina DALY, Colette De León Attending Clinician Hyun Flynn MD Attending Clinician Doctor Unassigned, [place] Attending Clinician Unavailable Sarah Barkley Attending Clinician Minna Mike MD Attending Clinician Lexy Monae MD Attending Clinician David Echeverria Attending Clinician [phone] MINNA MIKE Attending Clinician Unavailable Soila Villar DO Attending Clinician SOILA VILLAR Attending Clinician Unavailable HYUN FLYNN Admitting Clinician Unavailable David Echeverria Admitting Clinician [phone] SOILA VILLAR Admitting Clinician Unavailable Payers [...] rs active active ity of problems problems [facility] Allergies, Adverse Reactions, Alerts Allergy Allergy [...] Active Univers ALLERGIE Class ity of [facility] Social History Social Habit Start Date Stop Date Quantity Comments Source Gender [facility] History of tobacco Cigarette Smoker [facility] Exposure to Not sure University of SARS-CoV-2 (event) [facility] History of Social 2021-07-16 2021-07-[address] function 00:00:00 00:00:00 Hospital Cigarettes smoked 2021-07-15 2021-07-15 [facility] current (pack per 00:00:00 00:00:00 Hospita l day) - Reported Alcohol intake 2021-07-15 2021-07-15 Ex-drinker [facility] 00:00:00 00:00:00 (finding) Hospital Tobacco use and 2021-07-15 2021-07-15 Smokeless [facility] exposure 00:00:00 00:00:00 tobacco non-user Hospital Cigarette 2019-12-28 2019-12-28 University of pack-years 00:00:00 00:00:00 [facility] History SDOH 2019-12-28 2019-12-28 1 University o f Alcohol Frequency 00:00:00 00:00:00 [facility] History SDID 2019-12-28 2019-12-28 99 University o f Alcohol Std Drinks 00:00:00 00:00:00 [facility] History [facility] 2019-12-28 2019-12-28 1 University o f Alcohol Binge 00:00:00 00:00:00 [facility] al Branch Sex Ass[birth year] At [birth year] [facility] 00:00:00 00:00:00 Hospital Smoking Status Start Date Stop Date Source Smokes tobacco daily 2021-07-15 00:00:00 [facility] Unknown if ever smoked [facility] Medications Ordered Filled Start Stop Current Ordering [...] 2021-02 No Unknown 0-11 00:00: 00 ipratropium 2021-0 [...] subcutaneou s pen Dose 2-0 No Unknown 8 00:00: 00 Lantus 2022-0 No Solostar 8-16 U-100 00:00: Insulin 100 00 unit/mL (3 mL) subcutaneou s pen Dose 2-0 No Unknown 8 00:00: 00 Lantus 2022-0 [...] No 8- 00:00: 00 &lt 2022-0 No 8-02 [...] 7- 00:00: 00 Dose 2022-0 No Unknown 7-19 [...] Zoloft 50 2022-0 No 1mg mg tablet 7-19 00:00: 00 buspirone 2022-0 No mg [...] Unknown 6- 00:00: 00 &lt 2022-0 No 6 00:00: 00 Dose 2022-0 No Unknown 6 00:00: 00 &lt 2022-0 No 6 [...] 2022-0 No 6-21 00:00: 00 Zoloft 50 2021-0 No 1mg mg tablet 6-21 00:00: 00 buspirone 2-0 No mg 15 [...] 00 &lt 2022-0 No 6-14 00:00: 00 roflumilast 2021-0 Yes 500ug QD Take 500 [...] daily. Hospita enteric 05 l coated tablet Lantus 0 No 10(3 Solostar 6-09 mL) U-100 00:00: Insulin 100 00 unit/mL (3 mL) subcutaneou s pen &lt 2021-0 No 6- 00:00: 00 &lt 2021-0 No 6- 00:00: 00 Lantus 2021-0 No [...] 90 5-31 tuation mcg/actuati 00:00: on aerosol inhaler Trelegy 2021-0 No 1mcg Ellipta 100 [...] 1mg mg tablet 4-28 00:00: 00 Lamictal 2-0 No 1mg 100 mg 4-28 tablet 00:00: 00 buspirone 2-0 No 1mg 15 mg 4-28 tablet 00:00: 00 Zoloft 50 2-0 No 1mg mg tablet 4-28 00:00: 00 Lamictal 2-0 No 1mg 100 mg 4-28 tablet 00:00: [...] Zoloft 50 2-0 No 1mg mg tablet 3- 00:00: 00 Lamictal 2022-0 No 1mg 100 [...] 2020-1 No Unknown 1-11 00:00: 00 Lamictal 2020-02 No 1mg 100 mg 1-11 tablet 00:00: 00 Dose 2020- No Unknown 1-11 00:00: 00 trazodone 2020-02 No 15mg 100 mg 1-11 tablet 00:00: 00 buspirone 2020-02 No 1mg 15 mg 1-11 tablet 00:00: 00 Dose 2020-02 No Unknown 1-11 00:00: 00 Tradjenta 5 [...] 0-08 00:00: 00 Dose 2020-0 No Unknown 9-20 00:00: 00 Dose 2020-0 No Unknown 9- 00:00: 00 Dose 2020-0 No Unknown 9- 00:00: 00 Dose 2020-0 No Unknown 9- 00:00: 00 Dose 2021-0 No Unknown 9-20 00:00: 00 Dose 2021-0 No Unknown 9-20 00:00: 00 Dose 2021-0 No Unknown 20 00:00: 00 Dose 2021-0 No Unknown 9-20 00:00: 00 Lamictal 2021-0 No 1mg 100 mg 9-13 tablet 00:00: 00 trazodone 2021-0 No 15mg 100 mg 9-13 tablet 00:00: 00 buspirone 2021-0 No 1mg 15 mg 9-13 tablet 00:00: 00 Prozac 20 2021-0 No 1mg mg capsule 9- 00:00: 00 [...] Prozac 20 2021-0 No 1mg mg capsule 8-30 00:00: 00 [...] 00 Lamictal 2021-0 No 1mg 100 mg 8- tablet 00:00: [...] No Unknown 7 00:00: 00 Flovent HFA 1-0 No 1mcg/ac [...] 7- 00:00: 00 Dose 1-0 No Unknown 7-08 [...] 1-0 No Unknown 4-07 00:00: 00 buspirone 2021-0 [...] mg 5 mg tablet 124 00:00: 00 prednisone 2020-1 No 1mg 20 mg 1-24 tablet 00:00: 00 prednisone 2020-1 No 1mg 20 mg 1-24 tablet 00:00: 00 Anoro 2020-1 No 1mcg/ac Ellipta 1-24 tuation 62.5 mcg-25 00:00: mcg/actuati 00 on powder for inhalation prednisone 2020-1 No mg 5 mg tablet 124 00:00: 00 prednisone 2020-1 No 1mg 20 [...] by ity of tablet 20:14: mouth at [place] [address] bedtime. Medical Branch busPIRone 2019-02 Yes 7.5mg [...] 2 [place] (two) Medical times Branch daily. fluticasone 2019-02 [...] mouth ity of 80 mg 20:14: at [place] [address] bedtime. Medical Branch mupirocin 2 2019-02 Yes Apply to Un destiny % ointment 1-21 area(s) 2 ity of 20:14: (two) [place] [address] times Medical daily. Branch metoprolol 2020-1 Yes 12.5mg Take 12.5 Univers tartrate 25 [...] mouth ity of 80 mg 20:14: at [facility] bedtime. Medical Branch mupirocin 2 2019-02 Yes Apply to Un destiny % ointment 1-21 area(s) 2 ity of 20:14: (two) [place] [address] times Medical daily. Branch metoprolol 2019-02 Yes [...] 2 [place] (two) Medical times Branch daily. fluticasone 2019-02 Yes 1{puff} Inhale 1 Univers propionate 1-21 Puff 2 ity of 44 20:14: (two) [place] mcg/actuati times Medical on inhaler daily. Branch albuterol 2019-02 Yes 2{puff} Inhale 2 U nivers (PROVENTIL 1-21 Puffs ity of HFA) 90 20:14: every 6 [place] mcg/actuati (six) Medical on inhaler hours as Branc h needed for Wheezing or Shortness of Breath. atorvastati 2019-02 Yes 80mg Take 80 mg Univers n (LIPITOR) 1-21 by mouth ity of 80 mg 20:14: at [place] [address] bedtime. Medical Branch mupirocin 2 2019-02 Yes Apply to Un destiny % ointment 1-21 area(s) 2 ity of 20:14: (two) [place] [address] times Medical daily. Branch metoprolol 2019-02 Yes 12.5mg Take 12.5 Univers tartrate 25 1-21 mg by ity of mg tablet 20:14: mouth 2 [place] (two) Medical times Branch daily. atorvastati 2019-02 Yes 80mg 80 mg, Univ ers n (LIPITOR) 1-21 Oral, QHS, it y of tablet 80 03:00: First dose [place] mg 00 (after Medical last Branch modificati on) on Wed12/29/19 at 2100, Until Discontinu ed, Routine clopidogreL 2019-02 Yes [id number] 75mg Take 1 Univers 75 mg 1-21 tablet by ity of tablet 00:00: mouth [place] 00 daily. Medical Branch aspirin 81 2019-02 Yes [id number] 81mg Take 1 Univers mg chewable 1-21 tablet by ity of tablet 00:00: mouth [place] 00 daily. Medical Branch predniSONE 2019- Yes [id number] 40mg Take 2 U nivers 20 mg 1-21 tablets by ity of tablet 00:00: mouth [place] 00 daily. Medical Branch clopidogreL 2019-02 Yes [id number] 75mg Take 1 Univers 75 mg 1-21 tablet by ity of tablet 00:00: mouth [place] 00 daily. Medical Branch aspirin 81 2019-02 Yes [id number] 81mg Take 1 Univers mg chewable 1-21 tablet by ity of tablet 00:00: mouth [place] 00 daily. Medical Branch predniSONE 2019-02 Yes [id number] 40mg Take 2 U nivers 20 mg 1-21 tablets by ity of tablet 00:00: mouth [place] 00 daily. Medical Branch aspirin 81 2019-02 Yes [id number] 81mg Take 1 Univers mg chewable 1-21 tablet by ity of tablet 00:00: mouth [place] 00 daily. Medical Branch clopidogreL 2019-02 2020- No 75mg Take 75 mg Univers 75 mg 1-20 20 by mouth ity of tablet 22:51: 00:00 daily. [place] 35 :00 Medical Branch clopidogreL 2019-02 2020- No Oral, Univ ers (PLAVIX) 02-27 TITRATE [...] First dose [place] mg 00 on [facility] Medical 12/28/19 Branch at 2000, Until Discontinu ed, Routine predniSONE 2019-02 Yes [id number] 40mg Take 2 U nivers 20 mg 1-20 tablets by ity of tablet 00:00: mouth [place] 00 daily. Medical Branch clopidogreL 2019-02 Yes [id number] 75mg Take 1 Univers 75 mg 1-20 tablet by ity of tablet 00:00: mouth [place] 00 daily. Medical Branch predniSONE 2019-02 2020- No [id number] 40mg Take 2 Univers 20 mg 1-20 11-20 tablets by ity of tablet 00:00: 00:00 mouth [place] 00 :00 daily. Medical Branch predniSONE 2019-02 2020- No [id number] 40mg Take 2 Univers 20 mg -20 -19 tablets by ity of tablet 00:00: 00:00 mouth [place] 00 :00 daily for Medical 4 days. Branch atorvastati 2019-02- No 40mg 40 mg, Uni vers n (LIPITOR) 02-26 Oral, QPM, i ty of tablet 40 23:00: 02:01 First dose [place] mg 00 :46 on [facility] 12/28/19 Branch at 1700, Until Discontinu [...] Bran ch mL at 1245, Routine
membership manager approving Restricted medication : DEJAN GONSALEZ Saline 2019-02 2020- No 6mL 6 mL, Univers Bubble 02-26 Injection, ity of Study 17:33: 22:27 SEE-INSTRU [place] 16 :16 CTIONS, 2 Medical doses, Branch Starting [facility] 12/28/19 at 1133, Until 12/29/19 at 1627, Routine Saline 2019-02 Yes 6mL 6 mL, Univers Bubble 02-26 Injection, ity of Study 17:33: SEE-INSTRU [place] 14 CTIONS, 2 Medical doses, Branch Starting [place] 12/28/19 at 1133, Until Discontinu ed, Routine clopidogreL 2019-02 Yes 75mg 75 mg, Univ ers (PLAVIX) 02-26 Oral, ity of tablet 75 15:00: DAILY, [place] mg 00 First dose Medical on [place] Branch 12/28/19 at 0900, Until Discontinu ed, Routine
membership manager approving Restricted medication : LEXY MONAE aspirin [...] [place] 12/28/19 at 0900, Last dose on Wed01/01/20 at 0900, Routine aspirin 2019-02- No 324mg [...] 0800, Until Discontinu ed, Routine heparin 2019-02 2020- No 12U/kg/ 12 Univer s 25,000 02-26 [...] Rang e, Dosing and Testing: &nbs p;FOR [facility], [facility], AND [facility] ONLY &nbs p; - aPTT < [...] of 350 05:00: 05:00 s, ONCE, 1 [place] BULK-100 00 :00 dose, Wed Medica l mL) 12/27/19 Branch injection at 2300, 100 mL Routine methylPREDN 2019-02- No 40mg 40 mg, IV Univers ISolone sod 02-26 Piggyback, i ty of succ 02:45: 01:47 ONCE, 1 [place] (SOLU-MEDRO 00 :00 dose, Wed Med ical L (PF)) 12/27/19 Branch injection at 2045, 40 mg STAT metoprolol 2019-02 2020- No [id number] 12.5mg Take 0.5 Univers tartrate 25 02-26 tablets by i ty of mg tablet 00:00: 00:00 mouth [place] :[place] (two) Medical times Branch daily. albuterol-i 2019-02 2020- No [id number] 1{puff} Inhale 1 Univers pratropium 02-26 Puff 4 ity of 20-100 00:00: 00:00 (four) [place] mcg/actuati 00 :00 times Medical on inhaler daily. Branch metoprolol 2019-02- No [id number] 12.5mg Take 0.5 Univers tartrate 25 02-26 tablets by i ty of mg tablet 00:00: 00:00 mouth [place] 00 :[place] (two) Medical times Branch daily. metoprolol 2019-02 2020- No [id number] 12.5mg Take 0.5 Univers tartrate 25 02-26 tablets by i ty of mg tablet 00:00: 00:00 mouth [place] 00 :[place] (two) Medical times Branch daily. Flovent HFA 2019-02 No 2mcg/ac 44 1-18 tuation mcg/actuati 00:00: on aerosol 00 inhaler mupirocin 2 2019- No 1% % topical -18 ointment 00:00: 00 clopidogrel 2019- No 1mg [...] 1 [place] as mg 00 :00 dose, [facility] 07/27/19 at Branch 1730, Routine buspirone [...] prednisone 2020-0 No 1mg 5 mg tablet 116 00:00: 00 ipratropium 2020-0 No 3mg 0.5 [...] 7.5 mg 2-17 tablet 00:00: 00 Lamictal 2018-02 No 1mg 100 mg 2-17 tablet 00:00: 00 trazodone 2018-02 No 15mg 100 mg 2-17 tablet 00:00: 00 Prozac 2018-02 No 1mg mg capsule 2-17 00:00: 00 azithromyci 2018- No mg n 250 mg 2-05 tablet 00:00: 00 azithromyci 2018-02 No mg n 250 mg 2-05 tablet 00:00: 00 azithromyci 2018- No mg n 250 mg 2-05 tablet 00:00: 00 azithromyci 2018- No mg n 250 mg 2-05 tablet 00:00: 00 Lamictal 2018-02 No 1mg 100 mg 0-01 tablet 00:00: 00 buspirone 2018- No 1mg 7.5 mg 0-01 tablet 00:00: 00 trazodone 2018- No 1mg 100 mg 0-01 tablet 00:00: 00 trazodone 2018- No 15mg 100 mg 0-01 tablet 00:00: 00 Prozac 2018-02 No 1mg mg capsule 0-01 00:00: 00 Lamictal 2018-02 No 1mg 100 mg 0-01 tablet 00:00: [...] No 1mg mg capsule 6 00:00: 00 buspirone 5 2019-0 No 1mg mg tablet 6 00:00: 00 Lamictal 2019-0 No 1mg 100 mg 6-11 tablet 00:00: 00 trazodone 2019-0 No 1mg 100 mg 6-11 tablet 00:00: 00 Prozac 10 2019-0 No 1mg mg capsule 6 00:00: 00 buspirone 5 2019-0 No 1mg [...] 1mg mg 5-16 tablet,gena 00:00: yed release metformin 2019-0 No 1mg ER 500 mg [...] 25 1-27 mg tablet 00:00: 00 Spiriva 2017- No 1mcg/ac Respimat 1-05 tuation [...] %) 00 solution for nebulizatio n albuterol 2017-0 No 23/3 mL sulfate 2.5 8-21 (0.083 [...] No known No Univers medications ity of [facility] Vital Signs Vital Name Observation Time Observation Value Comments Source Systolic blood 2019-12-30 135 mm[Hg] University of pressure 17:24:00 [facility] Diastolic blood 2019-12-30 72 mm[Hg] University o f pressure 17:24:00 [facility] Heart rate 2019-12-30 78 /min University of 17:24:00 [facility] Body temperature 2019-12-30 35.61 Annemarie University of 17:24:00 [facility] Respiratory rate 2019-12-30 18 /min University of 17:24:00 [facility] Oxygen saturation 2019-12-30 91 /min University of in Arterial blood 17:24:00 [facility] by Pulse oximetry [place] Body weight 2019-12-30 57.924 kg pt's actual wt University of 10:03:00 on regular [facility] scale [place] BMI 2019-12-30 20.61 kg/m2 University of 10:03:00 [facility] Body height 2019-12-29 167.6 cm University of 20:18:00 [facility] Systolic blood 2019-12-30 135 mm[Hg] University of pressure 17:24:00 [facility] Diastolic blood 2019-12-30 72 mm[Hg] University o f pressure 17:24:00 [facility] Heart rate 2019-12-30 78 /min University of 17:24: [facility] Body temperature 2019-12-30 35.61 Annemarie University of 17:24:00 [facility] Respiratory rate 2019-12-30 18 /min University of 17:24:00 [facility] Oxygen saturation 2019-12-30 91 /min University of in Arterial blood 17:24:00 [facility] by Pulse oximetry [place] Body weight 2019-12-30 57.924 kg pt's actual wt University of 10:03:00 on regular [facility] scale [place] BMI 2019-12-30 20.61 kg/m2 University of 10:03:00 [facility] Body height 2019-12-29 167.6 cm University of 20:18:00 [facility] Systolic blood 2019-07-27 120 mm[Hg] University of pressure 21:35:00 [facility] Branch Diastolic blood 2019-07-27 79 mm[Hg] University o f pressure 21:35:00 [facility] Heart rate 2019-07-27 93 /min University of 21:35:00 [facility] Respiratory rate 2019-07-27 12 /min University of 21:35:00 [facility] Oxygen saturation 2019-07-27 95 /min University of in Arterial blood 21:35:00 [place] [facility] by Pulse oximetry Branch Body temperature 2019-07-27 37.5 Annemarie University of :15:00 [facility] Body height 2019-07-27 167.6 cm University of :15:00 [facility] Body weight 2019-07-27 55.792 kg University of 21:15:00 [facility] BMI 2019-07-27 19.85 kg/m2 University of 21:15:00 [facility] Systolic blood 2019-07-27 120 mm[Hg] University of pressure 21:35:00 [facility] Diastolic blood 2019-07-27 79 mm[Hg] University o f pressure 21:35:00 [facility] Heart rate 2019-07-27 93 /min University of 21:35:00 [facility] Respiratory rate 2019-07-27 12 /min University of 21:35:00 [facility] Oxygen saturation 2019-07-27 95 /min University of in Arterial blood 21:35:00 [place] Medi piedad by Pulse oximetry Branch Body temperature 2019-07-27 37.5 Annemarie University of :15:00 [facility] Body height 2019-07-27 167.6 cm University of 21:15:00 [facility] Body weight 2019-07-27 55.792 kg University of :15:00 [facility] BMI 2019-07-27 19.85 kg/m2 University of 21:15:00 [facility] BP Systolic 2021-12-05 137 mm[Hg] 13:31:00 [...] 2021-07-17 15:08:00 Heart rate 2021-07-16 93 /min [facility] 17:12:00 Hospital Systolic blood 2021-07-16 156 mm[Hg] [facility] pressure 16:50:46 Hospital Diastolic blood 2021-07-16 83 mm[Hg] [facility] pressure 16:50:46 Hospital Body temperature 2021-07-16 36.72 Annemarie [facility] 16:50:46 Hospital Respiratory rate 2021-07-16 20 /min [facility] 16:50:46 Hospital Oxygen saturation 2021-07-16 100 /min [facility] in Arterial blood 16:50:46 Hospital by Pulse [...] Performed POC GLUCOSE 2021-07-16 16:04:00 Hyun Flynn spital POC GLUCOSE 2021-07-16 13:06:00 Hyun Flynn spital HEMOGLOBIN A1C 2021-07-16 10:38:00 Hyun Flynn spital POC GLUCOSE 2021-07-16 02:40:00 Hyun Flynn spital POC GLUCOSE 2021-07-15 21:28:00 Hyun Flynn Ho spital POC GLUCOSE 2021-07-15 18:04:00 Hyun Flynn spital LACTIC ACID LEVEL, 2021-07-15 14:19:00 Zina [facility] SEPSIS - NOW AND REPEAT 2X EVERY 3 HOURS POC GLUCOSE 2021-07-15 14:05:00 Hyun Flynn spital LACTIC ACID LEVEL, 2021-07-15 11:47:00 Zina [facility] SEPSIS - NOW AND REPEAT 2X EVERY 3 HOURS ECG 12-LEAD 2021-07-15 09:34:19 Zina [facility] XR CHEST 1 VW PORTABLE 2021-07-15 08:37:27 [facility]15 08:35:00 Zina [facility] IGG ANTIBODY TITER ZCOVID-19 SEROLOGY 2021-07-15 08:35:00 Zina [facility] PATIENT SURVEILLANCE LACTIC ACID LEVEL, 2021-07-15 08:35:00 Zina [facility] SEPSIS - NOW AND REPEAT 2X EVERY 3 HOURS CBC WITH PLATELET AND 2021-07-15 08:35:00 Zina [facility] DIFFERENTIAL COMPREHENSIVE METABOLIC 2021-07-15 08:35:00 Anastasiia [facility] PANEL TROPONIN T 2021-07-15 08:35:00 abran [facility] ESTIMATED GFR 2021-07-15 08:35:00 [facility] EXTERNAL PROVIDER 2020-01-17 06:01:00 Doctor Unassigned, No Univ ersity [facility] RECORDS Name Medical Branch POCT GLUCOSE (AUTOMATED) 2019-12-30 15:25:00 Lexy Monae iversity [facility] [place] [facility] Meghan Thibodeaux Medical Bran ch MAGNESIUM 2019-12-30 10:10:00 Octavio Larios o madonna [place] [facility] BASIC METABOLIC PANEL 2019-12-30 10:10:00 Octavio Larios [facility] (NA, K, CL, CO2, Medical Branch GLUCOSE, BUN, CREATININE, CA) CBC WITH DIFF 2019-12-30 10:10:00 Harriet [facility] POCT GLUCOSE (AUTOMATED) 2019-12-30 01:50:00 Lexy Monae Un iversity of [facility] POCT GLUCOSE (AUTOMATED) 2019-12-29 23:32:00 Lexy Monae Un iversity of [facility] HB ECG ROUTINE & RHYTHM 2019-12-29 14:11:36 Mariya [facility] POCT GLUCOSE (AUTOMATED) 2019-12-29 14:00:00 Lexy Monae Un iversity of [facility] MAGNESIUM 2019-12-29 10:58:00 Mariya [facility] BASIC METABOLIC PANEL 2019-12-29 10:58:00 Mariya [facility] (NA, K, CL, CO2, Medical Branch GLUCOSE, BUN, CREATININE, CA) ACTIVATED PARTIAL 2019-12-29 10:58:00 Mariya [facility] EXTERNAL PROVIDER 2019-12-29 06:01:00 Doctor Unassigned, Isela [facility] RECORDS Name Medical Branch POCT GLUCOSE (AUTOMATED) 2019-12-29 04:16:00 Lexy Monae Un iversity of [facility] ACTIVATED PARTIAL 2019-12-29 00:06:00 Mariya [facility] TROPONIN I 2019-12-28 19:46:00 Jesus Paz [facility] LIPID PANEL 2019-12-28 19:46:00 Mariya [facility] ([id number])(TOTAL Medical Branch CHOLESTEROL, TRIGLYCERIDES, HDL) ECHO ROUTINE W/DOPPLER 2019-12-28 16:44:30 Efrain Meraz [facility] COLOR [facility] HB ECG ROUTINE & RHYTHM 2019-12-28 13:42:07 Mariya [facility] PROTHROMBIN TIME / INR 2019-12-28 12:24:00 Efrain Meraz [facility] ACTIVATED PARTIAL 2019-12-28 12:24:00 Mariya [facility] THRMPLAS CATHY [facility] Branch TROPONIN I 2019-12-28 10:08:00 Mariya [facility] CT CHEST PULMONARY 2019-12-28 04:44:55 Minna Mike [facility] ANGIOGRAM Medical Branch XR CHEST 1 VW 2019-12-28 02:07:34 Minna Mike [facility] COVID-19 (ID NOW RAPID 2019-12-28 01:50:00 Minna Mike [facility] TESTING) Medical Branch HB ECG ROUTINE & RHYTHM 2019-12-28 01:49:31 Minna Mike [facility] STRIP [facility] TROPONIN I 2019-12-28 01:49:00 Minna Mike [facility] THYROID STIMULATING 2019-12-28 01:49:00 Efrain Meraz [facility] HORMONE [facility] Branch BASIC METABOLIC PANEL 2019-12-28 01:49:00 Minna Mike [facility] (NA, K, CL, CO2, Medical Branch GLUCOSE, BUN, CREATININE, CA) COMP. METABOLIC PANEL 2019-12-28 01:49:00 Minna Mike [facility] ([id number]) Medical Branch CBC WITH DIFF 2019-12-28 01:49:00 Minna Mike [facility] GLYCOSYLATED HEMOGLOBIN 2019-12-28 01:49:00 Mariya [facility] (A1C) Medical Branch N-TERMINAL PRO-BNP 2019-12-28 01:49:00 Efrain Meraz [facility] XR CHEST 1 VW 2019-07-27 22:14:30 Soila Villar [facility] COVID-19 (ID NOW RAPID 2019-07-27 21:43:00 Soila Villar [facility] TESTING) Medical Branch TROPONIN I 2019-07-27 21:38:00 Soila Villar [facility] HEPATIC FUNCTION PANEL 2019-07-27 21:38:00 Soila Villar [facility] ([id number]) (ALB,T.PRO,BILI [facility] Branch T,BU/BC,ALT,AST,ALK PHOS) BASIC METABOLIC PANEL 2019-07-27 21:38:00 Soila Villar [facility] (NA, K, CL, CO2, Medical Branch GLUCOSE, BUN, CREATININE, CA) CBC WITH DIFFERENTIAL 2019-07-27 21:38:00 Soila Villar [facility] PROTHROMBIN TIME / INR 2019-07-27 21:38:00 Soila Villar [facility] N-TERMINAL PRO-BNP 2019-07-27 21:38:00 Soila Villar [facility] EKG-12 LEAD 2019-07-27 21:21:22 Soila Villar [facility] NOTICE OF PRIVACY 2019-07-27 20:58:21 Doctor Unassigned, No [facility] PRACTICES Name [facility] Plan of Care Planned Activity Planned Date Details Comments Source Future Scheduled 2022-07-27 Screening for [facility] Test 18:12:02 malignant neoplasm of colon (procedure) [code = 028666765] Future Scheduled 2022-07-27 Screening for [facility] Test 18:12:02 malignant neoplasm of colon (procedure) [code = 832541135] Future Scheduled 2022-07-27 Screening for [facility] Test 18:12:02 malignant neoplasm of colon (procedure) [code = [id number]] Future Scheduled 2022-07-27 COVID-19 VACCINE (#1) [facility] Test 18:12:02 [code = COVID-19 VACCINE (#1)] Future Scheduled 2022-07-27 65+ PNEUMOCOCCAL [facility] Test 18:12:02 VACCINE (1 - PCV) [code = 65+ PNEUMOCOCCAL VACCINE (1 - PCV)] Future Scheduled 2022-07-27 Hepatitis C screening [facility] Test 18:12:02 (procedure) [code = 536789974] Future Scheduled 2022-07-27 BREAST CANCER [facility] Test 18:12:02 SCREENING [code = BREAST CANCER SCREENING] Future Scheduled 2022-07-27 Screening for [facility] Test 18:12:02 malignant neoplasm of colon (procedure) [code = 412279160] Future Scheduled 2022-07-27 Screening for [facility] Test 18:12:02 malignant neoplasm of colon (procedure) [code = 025292404] Future Scheduled 2022-07-27 SHINGLES VACCINES (1 Met [facility] Test 18:12:02 of 2) [code = SHINGLES VACCINES (1 of 2)] Future Scheduled 2022-07-27 INFLUENZA VACCINE [facility] Test 18:12:02 [code = INFLUENZA VACCINE] Future Scheduled 2022-07-27 Screening for [facility] Test 18:12:02 malignant neoplasm of colon (procedure) [code = 245560334] Future Scheduled 2022-07-27 Screening for [facility] Test 18:12:02 malignant neoplasm of colon (procedure) [code = 085239896] Future Scheduled 2022-07-27 Screening for [facility] Test 18:12:02 malignant neoplasm of colon (procedure) [code = 110488818] Future Scheduled 2022-07-27 COVID-19 VACCINE (#1) [facility] Test 18:12:02 [code = COVID-19 VACCINE (#1)] Future Scheduled 2022-07-27 65+ [facility]OCCAL [facility] 18:12:02 VACCINE (1 - PCV) [code = 65+ PNEUMOCOCCAL VACCINE (1 - PCV)] Future Scheduled 2022-07-27 Hepatitis C screening [facility] Test 18:12:02 (procedure) [code = 053693662] Future Scheduled 2022-07-27 BREAST CANCER [facility] Test 18:12:02 SCREENING [code = BREAST CANCER SCREENING] Future Scheduled 2022-07-27 Screening for [facility] Test 18:12:02 malignant neoplasm of colon (procedure) [code = 453113781] Future Scheduled 2022-07-27 Screening for [facility] Test 18:12:02 malignant neoplasm of colon (procedure) [code = 581848044] Future Scheduled 2022-07-27 SHINGLES VACCINES (1 [facility] Test 18:12:02 of 2) [code = SHINGLES VACCINES (1 of 2)] Future Scheduled 2022-07-27 INFLUENZA VACCINE [facility] Test 18:12:02 [code = INFLUENZA VACCINE] Future Scheduled 2022-05-27 COVID-19 VACCINE (#1) [facility] Test 11:13:43 [code = COVID-19 VACCINE (#1)] Future Scheduled 2022-05-27 65+ P[facility]UMOCOCCAL [facility] Test 11:13:43 VACCINE (1 - PCV) [code = 65+ PNEUMOCOCCAL VACCINE (1 - PCV)] Future Scheduled 2022-05-27 Hepatitis C screening [facility] Test 11:13:43 (procedure) [code = 091119326] Future Scheduled 2022-05-27 BREAST CANCER [facility] Test 11:13:43 SCREENING [code = BREAST CANCER SCREENING] Future Scheduled 2022-05-27 COLONOSCOPY SCREENING [facility] Test 11:13:43 [code = COLONOSCOPY SCREENING] Future Scheduled 2022-05-27 SHINGLES VACCINES (1 [facility] Test 11:13:43 of 2) [code = SHINGLES VACCINES (1 of 2)] Future Scheduled 2022-05-27 INFLUENZA VACCINE [facility] Test 11:13:43 [code = INFLUENZA VACCINE] Future Scheduled 2022-05-27 COVID-19 VACCINE (#1) [facility] Test 11:13:43 [code = COVID-19 VACCINE (#1)] Future Scheduled 2022-05-27 65+ P[facility]UMOCOCCAL [facility] Test 11:13:43 VACCINE (1 - PCV) [code = 65+ PNEUMOCOCCAL VACCINE (1 - PCV)] Future Scheduled 2022-05-27 Hepatitis C screening [facility] Test 11:13:43 (procedure) [code = 549425123] Future Scheduled 2022-05-27 BREAST CANCER [facility] Test 11:13:43 SCREENING [code = BREAST CANCER SCREENING] Future Scheduled 2022-05-27 COLONOSCOPY SCREENING [facility] Test 11:13:43 [code = COLONOSCOPY SCREENING] Future Scheduled 2022-05-27 SHINGLES VACCINES (1 [facility] Test 11:13:43 of 2) [code = SHINGLES VACCINES (1 of 2)] Future Scheduled 2022-05-27 INFLUENZA VACCINE [facility] Test 11:13:43 [code = INFLUENZA VACCINE] Future Scheduled 2022-01-20 COVID-19 VACCINE (#1) [facility] Test 11:08:40 [code = COVID-19 VACCINE (#1)] Future Scheduled 2022-01-20 65+ P[facility]UMOCOCCAL [facility] Test 11:08:40 VACCINE (1 - PCV) [code = 65+ PNEUMOCOCCAL VACCINE (1 - PCV)] Future Scheduled 2022-01-20 Hepatitis C screening [facility] Test 11:08:40 (procedure) [code = 006016963] Future Scheduled 2022-01-20 BREAST CANCER [facility] Test 11:08:40 SCREENING [code = BREAST CANCER SCREENING] Future Scheduled 2022-01-20 COLONOSCOPY SCREENING [facility] Test 11:08:40 [code = COLONOSCOPY SCREENING] Future Scheduled 2022-01-20 SHINGLES VACCINES (1 [facility] Test 11:08:40 of 2) [code = SHINGLES VACCINES (1 of 2)] Future Scheduled 2022-01-20 INFLUENZA VACCINE [facility] Test 11:08:40 [code = INFLUENZA VACCINE] Future Scheduled 2022-01-20 COVID-19 VACCINE (#1) [facility] Test 11:08:40 [code = COVID-19 VACCINE (#1)] Future Scheduled 2022-01-20 65+ P[facility]UMOCOCCAL [facility] Test 11:08:40 VACCINE (1 - PCV) [code = 65+ PNEUMOCOCCAL VACCINE (1 - PCV)] Future Scheduled 2022-01-20 Hepatitis C screening [facility] Test 11:08:40 (procedure) [code = 207194030] Future Scheduled 2022-01-20 BREAST CANCER [facility] Test 11:08:40 SCREENING [code = BREAST CANCER SCREENING] Future Scheduled 2022-01-20 COLONOSCOPY SCREENING [facility] Test 11:08:40 [code = COLONOSCOPY SCREENING] Future Scheduled 2022-01-20 SHINGLES VACCINES (1 [facility] Test 11:08:40 of 2) [code = SHINGLES VACCINES (1 of 2)] Future Scheduled 2022-01-20 INFLUENZA VACCINE [facility] Test 11:08:40 [code = INFLUENZA VACCINE] Future Scheduled 2022-01-20 COVID-19 VACCINE (#1) [facility] Test 11:08:40 [code = COVID-19 VACCINE (#1)] Future Scheduled 2022-01-20 65+ P[facility]UMOCOCCAL [facility] Test 11:08:40 VACCINE (1 - PCV) [code = 65+ PNEUMOCOCCAL VACCINE (1 - PCV)] Future Scheduled 2022-01-20 [facility] 11:08:40 (procedure) [code = 778130154] Future Scheduled 2022-01-20 BREAST CANCER [facility] Test 11:08:40 SCREENING [code = BREAST CANCER SCREENING] Future Scheduled 2022-01-20 COLONOSCOPY SCREENING [facility] Test 11:08:40 [code = COLONOSCOPY SCREENING] Future Scheduled 2022-01-20 SHINGLES VACCINES (1 [facility] Test 11:08:40 of 2) [code = SHINGLES VACCINES (1 of 2)] Future Scheduled 2022-01-20 INFLUENZA VACCINE [facility] Test 11:08:40 [code = INFLUENZA VACCINE] Future Scheduled 2021-12-09 HEPATITIS B VACCINES [facility] Test 11:50:42 (1 of 3 - 3-dose series) [code = HEPATITIS B VACCINES (1 of 3 - 3-dose series)] Future Scheduled 2021-12-09 COVID-19 VACCINE (#1) [facility] Test 11:50:42 [code = COVID-19 VACCINE (#1)] Future Scheduled 2021-12-09 65+ [facility]CCAL [facility] Test 11:50:42 VACCINE (1 - PCV) [code = 65+ PNEUMOCOCCAL VACCINE (1 - PCV)] Future Scheduled 2021-12-09 Hepatitis C screening [facility] Test 11:50:42 (procedure) [code = 393312824] Future Scheduled 2021-12-09 Screening for [facility] Test 11:50:42 malignant neoplasm of cervix (procedure) [code = 922956705] Future Scheduled 2021-12-09 BREAST CANCER [facility] Test 11:50:42 SCREENING [code = BREAST CANCER SCREENING] Future Scheduled 2021-12-09 COLONOSCOPY SCREENING [facility] Test 11:50:42 [code = COLONOSCOPY SCREENING] Future Scheduled 2021-12-09 SHINGLES VACCINES (1 [facility] Test 11:50:42 of 2) [code = SHINGLES VACCINES (1 of 2)] Future Scheduled 2021-12-09 INFLUENZA VACCINE [facility] Test 11:50:42 [code = INFLUENZA VACCINE] Future Scheduled 2021-10-11 HEPATITIS B VACCINES [facility] Test 10:23:54 (1 of 3 - 3-dose series) [code = HEPATITIS B VACCINES (1 of 3 - 3-dose series)] Future Scheduled 2021-10-11 COVID-19 VACCINE (#1) [facility] Test 10:23:54 [code = COVID-19 VACCINE (#1)] Future Scheduled 2021-10-11 65+ PNEUMOCOCCAL [facility] Test 10:23:54 VACCINE (1 - PCV) [code = 65+ PNEUMOCOCCAL VACCINE (1 - PCV)] Future Scheduled 2021-10-11 Hepatitis C screening [facility] Test 10:23:54 (procedure) [code = 950503146] Future Scheduled 2021-10-11 Screening for [facility] Test 10:23:54 malignant neoplasm of cervix (procedure) [code = 211340665] Future Scheduled 2021-10-11 BREAST CANCER [facility] Test 10:23:54 SCREENING [code = BREAST CANCER SCREENING] Future Scheduled 2021-10-11 COLONOSCOPY SCREENING [facility] Test 10:23:54 [code = COLONOSCOPY SCREENING] Future Scheduled 2021-10-11 SHINGLES VACCINES (1 [facility] Test 10:23:54 of 2) [code = SHINGLES VACCINES (1 of 2)] Future Scheduled 2021-10-11 INFLUENZA VACCINE [facility] Test 10:23:54 [code = INFLUENZA VACCINE] Future Scheduled 2021-10-11 HEPATITIS B VACCINES [facility] Test 10:23:54 (1 of 3 - 3-dose series) [code = HEPATITIS B VACCINES (1 of 3 - 3-dose series)] Future Scheduled 2021-10-11 COVID-19 VACCINE (#1) [facility] Test 10:23:54 [code = COVID-19 VACCINE (#1)] Future Scheduled 2021-10-11 65+ PNEUMOCOCCAL [facility] Test 10:23:54 VACCINE (1 - PCV) [code = 65+ PNEUMOCOCCAL VACCINE (1 - PCV)] Future Scheduled 2021-10-11 Hepatitis C screening [facility] Test 10:23:54 (procedure) [code = 081226305] Future Scheduled 2021-10-11 Screening for [facility] Test 10:23:54 malignant neoplasm of cervix (procedure) [code = 898582906] Future Scheduled 2021-10-11 BREAST CANCER [facility] Test 10:23:54 SCREENING [code = BREAST CANCER SCREENING] Future Scheduled 2021-10-11 [facility] Test 10:23:54 [code = COLONOSCOPY SCREENING] Future Scheduled 2021-10-11 SHINGLES VACCINES (1 [facility] Test 10:23:54 of 2) [code = SHINGLES VACCINES (1 of 2)] Future Scheduled 2021-10-11 INFLUENZA VACCINE [facility] Test 10:23:54 [code = INFLUENZA VACCINE] Goal Plan of Care Note [code = 09949-9] Goal Plan of Care Note [code = 26450-1] Goal Plan of Care Note [code = 81036-5] Goal Plan of Care Note [code = 88662-2] Goal Plan of Care Note [code = 79722-3] Goal Plan of Care Note [code = 51808-7] Goal Plan of Care Note [code = 14803-9] Goal Plan of Care Note [code = 01683-1] Goal Plan of Care Note [code = 04215-2] Goal Plan of Care Note [code = 93580-3] Goal Plan of Care Note [code = 85704-5] Goal Plan of Care Note [code = 02940-0] Goal Plan of Care Note [code = 43398-4] Goal Plan of Care Note [code = 72206-4] Goal Plan of Care Note [code = 25927-3] Goal Plan of Care Note [code = 13644-9] Goal Plan of Care Note [code = 41524-8] Goal Plan of Care Note [code = 85725-0] Goal Plan of Care Note [code = 46286-9] Goal Plan of Care Note [code = 41117-5] Goal Plan of Care Note [code = 80980-6] Goal Plan of Care Note [code = 33213-2] Goal Plan of Care Note [code = 32696-4] Goal Plan of Care Note [code = 52479-5] Goal Plan of Care Note [code = 11144-1] Goal Plan of Care Note [code = 14451-5] Goal Plan of Care Note [code = 57091-7] Goal Plan of Care Note [code = 23032-9] Goal Plan of Care Note [code = 43902-7] Goal Plan of Care Note [code = 74566-8] Goal Plan of Care Note [code = 86081-4] Goal Plan of Care Note [code = 73358-6] Goal Plan of Care Note [code = 22021-0] Goal Plan of Care Note [code = 31078-5] Goal Plan of Care Note [code = 85708-9] Goal Plan of Care Note [code = 10063-3] Goal Plan of Care Note [code = 73788-3] Goal Plan of Care Note [code = 55630-7] Goal Plan of Care Note [code = 98828-6] Goal Plan of Care Note [code = 81935-9] Goal Plan of Care Note [code = 76066-9] Goal Plan of Care Note [code = 08752-0] Goal Plan of Care Note [code = 57731-5] Goal Plan of Care Note [code = 12536-7] Goal Plan of Care Note [code = 21582-6] Goal Plan of Care Note [code = 45817-9] Goal Plan of Care Note [code = 87893-6] Goal Plan of Care Note [code = 73548-3] Goal Plan of Care Note [code = 28098-0] Goal Plan of Care Note [code = 43522-4] Goal Plan of Care Note [code = 50146-5] Goal Plan of Care Note [code = 79313-5] Goal Plan of Care Note [code = 39042-1] Goal Plan of Care Note [code = 58595-8] Goal Plan of Care Note [code = 87775-3] Goal Plan of Care Note [code = 49598-2] Goal Plan of Care Note [code = 59298-2] Goal Plan of Care Note [code = 01091-9] Goal Plan of Care Note [code = 24086-9] Goal Plan of Care Note [code = 98803-8] Goal Plan of Care Note [code = 61027-2] Goal Plan of Care Note [code = 00625-1] Goal Plan of Care Note [code = 30659-7] Goal Plan of Care Note [code = 69542-7] Goal Plan of Care Note [code = 96681-9] Goal Plan of Care Note [code = 50169-5] Goal Plan of Care Note [code = 82768-3] Goal Plan of Care Note [code = 43828-3] Goal Plan of Care Note [code = 41583-7] Goal Plan of Care Note [code = 21107-8] Goal Plan of Care Note [code = 75764-6] Goal Plan of Care Note [code = 06826-6] Goal Plan of Care Note [code = 04069-6] Goal Plan of Care Note [code = 38863-3] Goal Plan of Care Note [code = 55427-9] Goal Plan of Care Note [code = 19404-1] Goal Plan of Care Note [code = 28617-6] Goal Plan of Care Note [code = 34251-3] Goal Plan of Care Note [code = 59667-5] Goal Plan of Care Note [code = 37848-2] Goal Plan of Care Note [code = 18593-7] Goal Plan of Care Note [code = 14286-2] Goal Plan of Care Note [code = 72713-1] Goal Plan of Care Note [code = 25851-1] Goal Plan of Care Note [code = 54257-6] Goal Plan of Care Note [code = 41236-7] Goal Plan of Care Note [code = 97314-4] Goal Plan of Care Note [code = 55038-8] Goal Plan of Care Note [code = 43303-3] Goal Plan of Care Note [code = 65494-2] Goal Plan of Care Note [code = 83468-6] Goal Plan of Care Note [code = 62249-2] Goal Plan of Care Note [code = 30092-2] Goal Plan of Care Note [code = 30000-2] Goal Plan of Care Note [code = 65739-1] Goal Plan of Care Note [code = 12244-6] Goal Plan of Care Note [code = 92127-1] Goal Plan of Care Note [code = 92539-9] Goal Plan of Care Note [code = 99741-1] Goal Plan of Care Note [code = 95526-7] Goal Plan of Care Note [code = 17921-3] Goal Plan of Care Note [code = 78010-1] Goal Plan of Care Note [code = 09146-6] Goal Plan of Care Note [code = 80643-0] Goal Plan of Care Note [code = 33023-2] Goal Plan of Care Note [code = 82567-9] Goal Plan of Care Note [code = 29812-0] Goal Plan of Care Note [code = 49262-8] Goal Plan of Care Note [code = 98554-7] Goal Plan of Care Note [code = 84932-5] Goal Plan of Care Note [code = 76254-6] Goal Plan of Care Note [code = 10342-1] Goal Plan of Care Note [code = 25601-4] Goal Plan of Care Note [code = 67396-1] Goal Plan of Care Note [code = 80936-5] Goal Plan of Care Note [code = 49290-3] Goal Plan of Care Note [code = 80237-5] Goal Plan of Care Note [code = 75104-2] Goal Plan of Care Note [code = 12993-3] Goal Plan of Care Note [code = 71997-4] Goal Plan of Care Note [code = 00100-4] Goal Plan of Care Note [code = 20187-4] Goal Plan of Care Note [code = 86567-1] Goal Plan of Care Note [code = 62671-2] Goal Plan of Care Note [code = 85182-4] Goal Plan of Care Note [code = 07180-0] Goal Plan of Care Note [code = 67237-9] Goal Plan of Care Note [code = 19050-6] Goal Plan of Care Note [code = 96372-5] Goal Plan of Care Note [code = 20544-5] Goal Plan of Care Note [code = 88951-2] Goal Plan of Care Note [code = 85685-5] Goal Plan of Care Note [code = 65231-5] Goal Plan of Care Note [code = 67258-8] Goal Plan of Care Note [code = 18399-5] Goal Plan of Care Note [code = 19725-3] Goal Plan of Care Note [code = 24491-6] Goal Plan of Care Note [code = 72728-0] Goal Plan of Care Note [code = 73223-9] Goal Plan of Care Note [code = 23737-9] Goal Plan of Care Note [code = 49987-3] Goal Plan of Care Note [code = 11126-3] Goal Plan of Care Note [code = 23654-4] Goal Plan of Care Note [code = 48269-3] Goal Plan of Care Note [code = 47887-9] Goal Plan of Care Note [code = 32744-0] Goal Plan of Care Note [code = 17789-4] Goal Plan of Care Note [code = 21443-4] Goal Plan of Care Note [code = 06982-6] Goal Plan of Care Note [code = 48360-2] Goal Plan of Care Note [code = 13439-0] Goal Plan of Care Note [code = 09558-8] Goal Plan of Care Note [code = 52860-0] Goal Plan of Care Note [code = 81905-1] Goal Plan of Care Note [code = 18454-4] Goal Plan of Care Note [code = 12686-7] Encounters Start End Encounter Admission Attending Care Care Encounter Source Date/Time Date/Time Type Type Clinicians Facility Department ID 2022-05-27 2022-05-27 Outpatient SFA SFA [id number] 023 Yasir 11:13:39 11:13:39 0419 [facility] 2022-04-30 2022-04-30 Outpatient SFA SFA 70061-5 023 Yasir 09:49:15 09:49:15 0323 F Yusef 2022-04-23 2022-04-23 Outpatient SFA SFA [id number] 023 Yasir 09:58:52 09:58:52 0316 F Yusef 2021-12-11 2021-12-11 Outpatient SFA SFA 68705-3 022 Yasir 09:25:26 09:25:26 1103 [place] 2021-12-05 2021-12-05 Outpatient oc9jwk50- [id number] ed 7upr80-5 00:00:00 00:00:00 Visit 9964-2649 059-4058-8 -9a58-2m5 a64-7n19o6 [id number] 384259 2374-09-29 2021-11-06 Outpatient 7996afbf- [id number] 79 96afbf-7 00:00:00 00:00:00 Visit 78ef-41c6 8ef-41c6-8 -8750-b17 750-b175d4 6e45w33q0 9c05e3 2021-09-09 2021-09-09 Outpatient 1d7d5vms- [id number] 2c 2e7jbw-g 00:00:00 00:00:00 Visit wz10-32j9 a54-06g0-1 -8625-285 625-641957 5167w3k2y 2e6a5e 2021-08-15 2021-08-15 Outpatient 44c9h103- [id number] 32 f3q675-3 00:00:00 00:00:00 Visit 1578-4e21 578-4e21-b -g65v-6x3 11c-2l0876 7174dedcc 4dedcc 2021-07-15 2021-07-16 [facility] Colette Izaguirre 1.2.840.1 1047 [id number] Methodi 01:59:00 13:57:00 Encounter Hyun Flynn [address]7791.1.[address] 3.430.2.7 Hospit a .3.702846 l .8 2021-07-15 2021-07-15 Travel 1.2.840.1 1.2.010.514 [id number] Methodi 00:00:00 00:00:[address] 3.430.2.7 0.2.7.3.698 [facility] .3.337785 084.8 l .8 2020-01-17 2020-01-17 Orders Doctor DIONISIO 1.2.840.114 [id number] 00:00:00 00:00:00 Only Unassigned, ASHLEY 350.1.13.10 [place] [facility] 4.2.7.2.686 [id number] 009 2020-01-17 2020-01-17 Orders Doctor DIONISIO 1.2.840.114 [id number] [facility] 00:00:00 00:00:00 Only Unassigned, ASHLEY 350.1.13.10 ity of [place] [facility] 4.2.7.2.686 Nabil as [id number] [facility] [address] 2020-01-01 2020-01-01 Transition Ree Barkley 1.2.840.114 797 64169 00:00:00 00:00:00 of Care Sarah Carvalho 350.1.13.10 [place] 4.2.7.2.686 [id number] 403 2020-01-01 2020-01-01 Transition Ree Barkley 1.2.840.114 797 [id number] [facility] 00:00:00 00:00:00 of Care Sarah Carvalho 350.1.13.10 ity of [place] 4.2.7.2.686 [facility] [id number] [facility] [address] 2019-12-27 2019-12-30 [facility] GinnancMinna cruz 1.2.840. 114 [id number] 18:54:00 14:13:00 Encounter Lexy Monae Ashley 350.1.13.10 [facility] 4.2.7.2.686 [id number] 090 2019-12-27 2019-12-30 [facility] GinnancMinna cruz 1.2.840. 114 [id number] [facility] 18:54:00 14:13:00 Encounter Lexy Monae 350.1.13.10 [facility] 4.2.7.2.68 6 [place] [id number] [facility] 090 [place] 2019-12-27 2019-12-27 Emergency X [facility] ERT [id number] Univers 18:54:00 18:54:00 [facility] 2019-07-27 2019-07-27 Emergency [facility] 1.2.840.114 76 [id number] 16:26:45 18:20:00 Soila Espinosa 350.1.13.10 [place] 4.2.7.2.686 [place] [id number] [facility] 2019-07-27 2019-07-27 Emergency [facility] 1.2.840.114 [id number] Univers 16:26:45 18:20:00 Soila Espinosa 350.1.13.10 ity of [place] 4.2.7.2.686 [facility] [id number] [address] 2019-07-27 2019-07-27 Emergency X [facility] ERT [id number] Univers 16:26:45 [facility]:20:[facility] Test Description Test Time Test Comments Results Result Comments Source LACTIC ACID, PLASMA 2022-06-04 08:17:31 Test Item Value Reference Range Interpretation Comme nts LACTIC ACID, TEST NOT PERFORMED 4.5-19.8 Unable to perform testing, improper PLASMA (test MG/DL specimen receiv ed.Charges adjusted as code = 2056) applicable. [facility] has important pathology staff changes effective 04/08/2022. New pathology staff will provide uninter rupted, excellent patient care and clinic al consultation. See URL: [email or web address]. UNLESS OTHERWISE INDIC ATED, [facility] [place]. [address] [place] [address] [employer] GONSALVES DIRECTOR: Noelle ALVARESIA NUMBER [id number] CAP ACCREDITATI ON NO. LACTIC ACID, [id number] 11:58:30 Test Item Value Reference Range Interpretation Comments LACTIC ACID, 24.2 MG/DL 4.5-19.8 H [facility] has im portant PLASMA (test code pathology staff changes = 2056) effective 04/08. New pathology s taff will provide uninter rupted, excellent patie nt care and clinical consultation. S ee URL: [email or web address]. UNLESS O THERWISE INDICATED, ALL [facility]ING [facility] [employer], [facility]. [address] [place] [address] CH[employer]ST[employer] GONSALVES DIRECTOR: FIONA MEADE M.D. C SIMI NUMBER [id number] CAP ACCREDITATION N O. COMPREHENSIVE METABOLIC [id number] 06:16:32 Test Item Value Reference Range Interpretation Comments GLUCOSE (test code = 323 MG/DL 70-99 H 2216) BUN (test code = 11 MG/DL 8-2207) CREATININE (test 0.71 MG/DL 0.60-1.30 code = 2214) eGFR (2020 CKD-EPI) 94 ML/MIN/1.73 >60 (test code = 04362) CALC BUN/CREAT (test 15 RATIO 6-28 code = 2235) SODIUM (test code = 143 MEQ/L 005-274 3429) POTASSIUM (test code 3.5 MEQ/L 3.5-5.4 = 2228) CHLORIDE (test code 100 MEQ/L 95-107 = 2215) CARBON DIOXIDE (test 28 MEQ/L 19-31 code = 2206) CALCIUM (test code = 9.2 MG/DL 8.5-10.5 2208) PROTEIN, TOTAL (test 6.5 G/DL 6.1-8.3 code = 222) ALBUMIN (test code = 4.3 G/DL 3.5-5.2 [...] PHOSPHATASE 72 U/L 40-142 (test code = 220) AST (test code = 31 U/L 9-40 2217) ALT (test code = 37 U/L 5-40 2218) LACTIC ACID, [id number] 13:51:21 Test Item Value Reference Range Interpretation Comments LACTIC ACID, PLASMA (test code = 19.8 MG/DL 4.5-19.8 2056) TSH REFLEX TO FREE [id number] 05:35:06 Test Item Value Reference Range Interpretation Comments TSH REFLEX TO 1.810 UIU/ML 0.400-4.100 [facility] has i mportant FREE T4 (test pathology staf f changes code = 2834) effective 04/08. New patholo gy staff will provide uninterrupted, excellent patient care an d clinical consul tation. See URL: [email or web address]. UNLESS OTHERWISE INDICATED, ALL TESTING [facility]FOR[facility] [employer] [address] [facility] [place], [place] [address] LABORATORY DIRE CTOR: FLACA JOHNSON M.D. [place] NUMBER [id number] [place] [id number] HEMOGLOBIN [id number] 04:53:38 Test Item Value Reference Range Interpretation Comments HEMOGLOBIN A1c (test 9.5 % 4.2-5.6 H [employer] AN DIABETES code = 85765) ASSOCIATION IDELINES FOR HGB A1C: PREDIABETES/INC REASED [...] ATE TESTING OR LABORATORY C ONSULTATION. LIPID [id number] 03:59:11 Test Item Value Reference Range Interpretation [...] MOREINFORMATION , SEE CLIENT ANNOUNCE MENT AT [email or web address] RATIO LDL/HDL 0.98 RATIO <3.22 (test code = 2238) COMPREHENSIVE METABOLIC [id number] 03:59:11 Test Item Value Reference Range Interpretation Comments GLUCOSE (test code = 275 MG/DL 70-99 H 2216) BUN (test code = 17 MG/DL 8-23 2207) CREATININE (test 0.68 MG/DL 0.60-1.30 code = 2214) eGFR (2020 CKD-EPI) 96 ML/MIN/1.73 >60 (test code = 34308) CALC BUN/CREAT (test 25 RATIO 6-28 code = 2235) SODIUM (test code = 139 MEQ/L 155-050 7140) POTASSIUM (test code 3.9 MEQ/L 3.5-5.4 = 2227) CHLORIDE (test code 98 MEQ/L 95-107 = 2214) CARBON DIOXIDE (test 28 MEQ/L 19-31 code = 220) CALCIUM (test code = 9.5 MG/DL 8.5-10.5 2208) PROTEIN, TOTAL (test 6.1 G/DL 6.1-8.3 code = 222) ALBUMIN (test code = 3.9 G/DL 3.5-5.2 2200) CALC GLOBULIN (test 2.2 G/DL 1.9-3.7 code = 224) CALC A/G RATIO (test 1.8 RATIO 1.0-2.6 code = 2234) BILIRUBIN, TOTAL 0.4 MG/DL See_Comment [Automated message] (test code = 2206) The syste m which generated this result transmit shikha reference range : <=1.2. The refe rence range was not u sed to interpret th is result as normal/abnormal . ALKALINE PHOSPHATASE 59 U/L 40-142 (test code = 2203) AST (test code = 26 U/L 9-40 2217) ALT (test code = 38 U/L 5-40 2218) [id number] 03:56:08 Test Item Value Reference Range Interpretation Comments MAGNESIUM (test code = 2226) 1.9 MG/DL 1.6-2.6 LACTIC ACID, [id number] 11:30:59 Test Item Value Reference Range Interpretation Comments LACTIC ACID, PLASMA (test code = 12.0 MG/DL 4.5-19.8 2056) [id number] 03:42:38 Test Item Value Reference Range Interpretation Comments MAGNESIUM (test code = 2226) 1.9 MG/DL 1.6-2.6 COMPREHENSIVE METABOLIC [id number] 03:42:00 Test Item Value Reference Range Interpretation Comments GLUCOSE (test code = 193 MG/DL 70-99 H 2216) BUN (test code = 14 MG/DL 8-23 2207) CREATININE (test 0.68 MG/DL 0.60-1.30 code = 221) eGFR (2020 CKD-EPI) 97 ML/MIN/1.73 >60 (test code = 03926) CALC BUN/CREAT (test 21 RATIO 6-28 code = 2235) SODIUM (test code = 140 MEQ/L 658-138 3718) POTASSIUM (test code 4.4 MEQ/L 3.5-5.4 = [...] code = 25 U/L 5-40 2218) IRON, [id number] 03:42:00 Test Item Value Reference Range Interpretation Comments IRON, SERUM (test 21 UG/DL 37-145 L UNLESS OT HERWISE code = 2222) INDICATED, ALL TESTING PERFORMED [facility] NICAL PATHOLOGY [facility] [address] [place] [address] DIRECTOR: TITA PARIKH M.D. CLIA NUMBER [id number] CAP ACCREDITATION N O. [id number] HEMOGLOBIN [id number] 03:08:42 Test Item Value Reference Range Interpretation Comments HEMOGLOBIN A1c (test 8.0 % 4.2-5.6 H [employer]IC AN DIABETES code = 81120) ASSOCIATION IDELINES FOR HGB A1C: PREDIABETES/INC REASED [...] LABORATORY C ONSULTATION. CBC W/AUTO DIFF WITH [id number] 01:59:57 Test Item Value Reference Range Interpretation [...] RBCS 0.00 K/UL 0.00-0.11 (test code = 77448) COMPREHENSIVE METABOLIC PANEL [ADDED]2021-09-16 00:00:00 Test Item Value Reference Range Interpretation Comments GLUCOSE (test code = 2217) 193 MG/DL BUN (test code = 2208) 14 MG/DL CREATININE (test code = 2214) 0.68 MG/DL eGFR (2020 CKD-EPI) (test code 97 ML/MIN/1.73 = 64269) CALC BUN/CREAT (test code = 21 RATIO [...] (2020 CKD-EPI) (test code 97 ML/MIN/1.73 = 79813) CALC BUN/CREAT (test code = 21 RATIO [...] BILIRUBIN, TOTAL (test code = <0.2 MG/DL 2207) ALKALINE PHOSPHATASE (test 61 U/L code = [...] Interpretation Comments HEMOGLOBIN A1c (test code = 32409) 8.0 % HEMOGLOBIN A1c [ADDED]2021-09-16 00:00:00 Test Item Value Reference Range Interpretation Comments HEMOGLOBIN A1c (test code = 76290) 8.0 % HEMOGLOBIN A1c [ADDED]2021-09-16 00:00:00 Test Item Value Reference Range Interpretation Comments HEMOGLOBIN A1c (test code = 89190) 8.0 % CBC W/AUTO DIFF WITH PLATELETS [...] NUCLEATED RBCS (test code = 0.00 K/UL 65273) CBC W/AUTO DIFF WITH PLATELETS [ADDED]2021-09-16 00:00:00 [...] NUCLEATED RBCS (test code = 0.00 K/UL 32877) CBC W/AUTO DIFF WITH PLATELETS [ADDED]2021-09-16 00:00:00 [...] NUCLEATED RBCS (test code = 0.00 K/UL 91404) IRON, SERUM [ADDED]2021-09-16 00:00:00 Test Item Value [...] (2020 CKD-EPI) (test code 97 ML/MIN/1.73 = 01269) CALC BUN/CREAT (test code = 21 RATIO [...] (2020 CKD-EPI) (test code 97 ML/MIN/1.73 = 37237) CALC BUN/CREAT (test code = 21 RATIO [...] Interpretation Comments HEMOGLOBIN A1c (test code = 20077) 8.0 % HEMOGLOBIN A1c [ADDED]2021-09-16 00:00:00 Test Item Value Reference Range Interpretation Comments HEMOGLOBIN A1c (test code = 77902) 8.0 % HEMOGLOBIN A1c [ADDED]2021-09-16 00:00:00 Test Item Value Reference Range Interpretation Comments HEMOGLOBIN A1c (test code = 24022) 8.0 % CBC W/AUTO DIFF WITH PLATELETS [...] NUCLEATED RBCS (test code = 0.00 K/UL 53683) CBC W/AUTO DIFF WITH PLATELETS [ADDED]2021-09-16 00:00:00 [...] NUCLEATED RBCS (test code = 0.00 K/UL 26571) CBC W/AUTO DIFF WITH PLATELETS [ADDED]2021-09-16 00:00:00 [...] NUCLEATED RBCS (test code = 0.00 K/UL 38188) IRON, SERUM [ADDED]2021-09-16 00:00:00 Test Item Value [...] (2020 CKD-EPI) (test code 97 ML/MIN/1.73 = 34310) CALC BUN/CREAT (test code = 21 RATIO 2235) SODIUM (test code = 2231) 140 MEQ/L POTASSIUM (test code = 2228) 4.4 MEQ/L CHLORIDE (test code = 2215) 102 MEQ/L CARBON DIOXIDE (test code = 27 MEQ/L 2206) CALCIUM (test code = 2209) 9.0 MG/DL PROTEIN, TOTAL (test code = 5.9 G/DL 222) ALBUMIN (test code = 2201) 3.8 G/DL [...] (2020 CKD-EPI) (test code 97 ML/MIN/1.73 = 13473) CALC BUN/CREAT (test code = 21 RATIO [...] Interpretation Comments HEMOGLOBIN A1c (test code = 82226) 8.0 % HEMOGLOBIN A1c [ADDED]2021-09-16 00:00:00 Test Item Value Reference Range Interpretation Comments HEMOGLOBIN A1c (test code = 24011) 8.0 % HEMOGLOBIN A1c [ADDED]2021-09-16 00:00:00 Test Item Value Reference Range Interpretation Comments HEMOGLOBIN A1c (test code = 58363) 8.0 % CBC W/AUTO DIFF WITH PLATELETS [...] NUCLEATED RBCS (test code = 0.00 K/UL 47519) CBC W/AUTO DIFF WITH PLATELETS [ADDED]2021-09-16 00:00:00 [...] NUCLEATED RBCS (test code = 0.00 K/UL 15784) CBC W/AUTO DIFF WITH PLATELETS [ADDED]2021-09-16 00:00:00 [...] NUCLEATED RBCS (test code = 0.00 K/UL 85338) IRON, SERUM [ADDED]2021-09-16 00:00:00 Test Item Value [...] (2020 CKD-EPI) (test code 97 ML/MIN/1.73 = 40297) CALC BUN/CREAT (test code = 21 RATIO [...] (2020 CKD-EPI) (test code 97 ML/MIN/1.73 = 84841) CALC BUN/CREAT (test code = 21 RATIO [...] Interpretation Comments HEMOGLOBIN A1c (test code = 15746) 8.0 % HEMOGLOBIN A1c [ADDED]2021-09-16 00:00:00 Test Item Value Reference Range Interpretation Comments HEMOGLOBIN A1c (test code = 26743) 8.0 % HEMOGLOBIN A1c [ADDED]2021-09-16 00:00:00 Test Item Value Reference Range Interpretation Comments HEMOGLOBIN A1c (test code = 46369) 8.0 % CBC W/AUTO DIFF WITH PLATELETS [...] NUCLEATED RBCS (test code = 0.00 K/UL 12265) CBC W/AUTO DIFF WITH PLATELETS [ADDED]2021-09-16 00:00:00 [...] NUCLEATED RBCS (test code = 0.00 K/UL 52120) CBC W/AUTO DIFF WITH PLATELETS [ADDED]2021-09-16 00:00:00 [...] NUCLEATED RBCS (test code = 0.00 K/UL 70710) IRON, SERUM [ADDED]2021-09-16 00:00:00 Test Item Value [...] code = 12.0 MG/DL 2056) LACTIC ACID, [id number] 14:02:14 Test Item Value Reference Range Interpretation [...] code = 15.2 MG/DL 2056) COMPREHENSIVE METABOLIC [id number] 04:08:01 Test Item Value Reference Range Interpretation Comments GLUCOSE (test code = 104 MG/DL 70-99 H 2216) BUN (test code = 17 MG/DL 09-30) CREATININE (test 0.73 MG/DL 0.60-1.30 code = 2214) eGFR (2020 CKD-EPI) 91 >60 (test code = 02224) ML/MIN/1.73 CALC BUN/CREAT (test 23 RATIO 6-28 code = 2235) SODIUM (test code = 141 MEQ/L 631-637 8899) POTASSIUM (test code 4.7 MEQ/L 3.5-5.4 = [...] [facility] [place] [address] [place] [address] [facility] DIRECTOR: TITA PARIKH M.D. CLIA NUMBER [id number] CAP ACCREDITATION N O. [id number] COMPREHENSIVE METABOLIC PANEL [ADDED]2021-08-19 00:00:00 Test Item Value Reference Range Interpretation Comments GLUCOSE (test code = 7) 104 MG/DL BUN (test code = 2208) 17 MG/DL CREATININE (test code = 2214) 0.73 MG/DL eGFR (2020 CKD-EPI) (test code 91 ML/MIN/1.73 = 70484) CALC BUN/CREAT (test code = 23 RATIO [...] ALKALINE PHOSPHATASE (test 65 U/L code = 220) AST (test code = 2218) 26 U/L ALT (test code = 2219) 25 U/L COMPREHENSIVE METABOLIC PANEL [ADDED]2021-08-19 00:00:00 Test Item Value Reference Range Interpretation Comments GLUCOSE (test code = 2217) 104 MG/DL BUN (test code = 2208) 17 MG/DL CREATININE (test code = 2214) 0.73 MG/DL eGFR (2020 CKD-EPI) (test code 91 ML/MIN/1.73 = 40850) CALC BUN/CREAT (test code = 23 RATIO [...] (2020 CKD-EPI) (test code 91 ML/MIN/1.73 = 63345) CALC BUN/CREAT (test code = 23 RATIO [...] (2020 CKD-EPI) (test code 91 ML/MIN/1.73 = 70252) CALC BUN/CREAT (test code = 23 RATIO [...] (2020 CKD-EPI) (test code 91 ML/MIN/1.73 = 40266) CALC BUN/CREAT (test code = 23 RATIO [...] (2020 CKD-EPI) (test code 91 ML/MIN/1.73 = 72302) CALC BUN/CREAT (test code = 23 RATIO [...] (2020 CKD-EPI) (test code 91 ML/MIN/1.73 = 12163) CALC BUN/CREAT (test code = 23 RATIO [...] Range Interpretation Comments GLUCOSE (test code = 7) 104 MG/DL BUN (test code = 2208) 17 MG/DL CREATININE (test code = 2214) 0.73 MG/DL eGFR (2020 CKD-EPI) (test code 91 ML/MIN/1.73 = 90716) CALC BUN/CREAT (test code = 23 RATIO [...] (test code = 2219) 25 U/L POC [id number] 16:05:00 Test Item Value Reference Range Interpretation Comments POC glucose (test code 354 mg/dL 65-99 [facility] Name: Celeste = [id number]) NwachukwuDevicbruce ID: [id number] Lab Interpretation Abnormal (test code = 61431-4) [facility] [id number] 16:05:00 Test Item Value Reference Range Interpretation Comments POC glucose (test code 354 mg/dL 65-99 [facility] Name: Celeste = [id number]) NwachukwuDevice ID: [id number] Lab Interpretation Abnormal (test code = 50977-7) [facility] [id number] 16:05:00 Test Item Value Reference Range Interpretation Comments POC glucose (test code 354 mg/dL 65-99 [facility] Name: Celeste = [id number]) NwachukwuDekenyone ID: [id number] Lab Interpretation Abnormal (test code = 50837-7) [facility] [id number] 16:05:00 Test Item Value Reference Range Interpretation Comments POC glucose (test code 354 mg/dL 65-99 [facility] Name: Celeste = [id number]) NwachukwuDevice ID: [id number] Lab Interpretation Abnormal (test code = 09971-4) [facility]2022-06-08 16:05:00 Test Item Value Reference Range Interpretation Comments POC glucose (test code 354 mg/dL 65-99 [facility] Name: Celeste = [id number]) NwachukwuDevice ID: [id number] Lab Interpretation Abnormal (test code = 25171-1) [facility] [id number] 16:05:00 Test Item Value Reference Range Interpretation Comments POC glucose (test code 354 mg/dL 65-99 [facility] Name: Celeste = [id number]) NwachukwuDevice ID: [id number] Lab Interpretation Abnormal (test code = 57557-5) [facility] [id number] 16:05:00 Test Item Value Reference Range Interpretation Comments POC glucose (test code 354 mg/dL 65-99 [facility] Name: Celeste = [id number]) NwachukwuDevice ID: [id number] Lab Interpretation Abnormal (test code = 39343-0) [facility] [id number] 16:05:00 Test Item Value Reference Range Interpretation Comments POC glucose (test code 354 mg/dL 65-99 [facility] Name: Celeste = [id number]) NwachukwuDekenyone ID: [id number] Lab Interpretation Abnormal (test code = 58550-5) [address]2022-06-08 01:04:59 Test Item Value Reference Range Interpretation Comments Ventricular rate (test code = 253) Atrial rate (test code = 255) ME interval (test code = 266) QRSD interval [...] Sosa MD ([id number]) on 07/15/2021 8:04:[address] PM [address]2022-06-08 01:04:59 Test Item Value Reference Range Interpretation Comments Ventricular rate (test code = 253) Atrial rate (test code = 255) ME interval (test code = 266) QRSD interval [...] Sosa MD ([id number]) on 07/15/2021 8:04:56 PM [address]2022-06-08 01:04:59 Test Item Value Reference Range Interpretation Comments Ventricular rate (test 79 code = 253) Atrial rate (test code = 79 255) ME interval (test code = 132 266) QRSD [...] Sosa MD ([id number]) on 07/15/2021 8:04:56 PM [address]2022-06-08 01:04:59 Test Item Value Reference Range Interpretation Comments Ventricular rate (test 79 code = 253) Atrial rate (test code = 79 255) ME interval (test code = 132 266) QRSD [...] Sosa MD ([id number]) on 07/15/2021 8:04:56 PM [address]2022-06-08 01:04:59 Test Item Value Reference Range Interpretation Comments Ventricular rate (test 79 code = 253) Atrial rate (test code = 79 255) ME interval (test code = 132 266) QRSD [...] Sosa MD ([id number]) on 07/15/2021 8:04:56 PM [address]2022-06-08 01:04:59 Test Item Value Reference Range Interpretation Comments Ventricular rate (test 79 code = 253) Atrial rate (test code = 79 255) ME interval (test code = 132 266) QRSD [...] Sosa MD ([id number]) on 07/15/2021 8:04:56 PM [address]2022-06-08 01:04:59 Test Item Value Reference Range Interpretation Comments Ventricular rate (test 79 code = 253) Atrial rate (test code = 79 255) ME interval (test code = 132 266) QRSD [...] Sosa MD ([id number]) on 07/15/2021 8:04:56 PM [facility] 12 [id number] 01:04:59 Test Item Value Reference Range Interpretation Comments Ventricular rate (test code = 253) Atrial rate (test code = 255) ME interval (test code = 266) QRSD interval [...] Sosa MD ([id number]) on 07/15/2021 8:04:56 [facility] [id number] 14:02:59 Test Item Value Reference Range Interpretation Comments LACTIC ACID, 26.7 MG/DL 4.5-19.8 H UNLESS OTHERWI SE PLASMA (test code INDICATED, ALL TESTING = 2056) [facility] [address] [place] [id number] [place] [address] DIRECTOR: TITA PARIKH M.D. CLIA NUMBER [id number] CAP ACCREDITATION N O. [id number] LACTIC ACID, [id number] 00:00:00 Test Item Value Reference Range Interpretation Comments LACTIC ACID, PLASMA (test code = 26.7 MG/DL 2056) LACTIC ACID, [id number] 00:00:00 Test Item Value Reference Range Interpretation Comments LACTIC ACID, PLASMA (test code = 26.7 MG/DL 2056) LACTIC ACID, [id number] 00:00:00 Test Item Value Reference Range Interpretation Comments LACTIC ACID, PLASMA (test code = 26.7 MG/DL 2056) LACTIC ACID, [id number] 00:00:00 Test Item Value Reference Range Interpretation Comments LACTIC ACID, PLASMA (test code = 26.7 MG/DL 2056) LACTIC ACID, [id number] 00:00:00 Test Item Value Reference Range Interpretation Comments LACTIC ACID, PLASMA (test code = 26.7 MG/DL 2056) LACTIC ACID, [id number] 00:00:00 Test Item Value Reference Range Interpretation Comments LACTIC ACID, PLASMA (test code = 26.7 MG/DL 2056) LACTIC ACID, [id number] 00:00:00 Test Item Value Reference Range Interpretation Comments LACTIC ACID, PLASMA (test code = 26.7 MG/DL 2056) LACTIC ACID, [id number] 00:00:00 Test Item Value Reference Range Interpretation Comments LACTIC ACID, PLASMA (test code = 26.7 MG/DL 2056) LACTIC ACID, [id number] 10:45:50 Test Item Value Reference Range Interpretation Comments LACTIC ACID, 27.1 MG/DL 4.5-19.8 H UNLESS OTHERWI SE PLASMA (test code INDICATED, ALL TESTING = 2056) PERFORMED [facility] LABOR [employer] [address] [place] [address] LABOR ATORY DIRECTOR: TITA PARIKH M.D. CLIA NUMBER [id number] CAP ACCREDITATION N O. [id number] HEMOGLOBIN [id number] 05:02:08 Test Item Value Reference Range Interpretation Comments HEMOGLOBIN A1c (test 8.3 % 4.2-5.6 H [employer] CAN DIABETES code = 12453) ASSOCIATION IDELINES FOR HGB A1C: PREDIABETES/INC REASED [...] TESTING OR LABORATORY C ONSULTATION. COMPREHENSIVE METABOLIC [id number] 03:45:06 Test Item Value Reference Range Interpretation Comments GLUCOSE (test code = 397 MG/DL 70-99 H 2216) BUN (test code = 21 MG/DL 8-23 2207) CREATININE (test 0.75 MG/DL 0.60-1.30 code = 221) eGFR (2020 CKD-EPI) 88 ML/MIN/1.73 >60 (test code = 88940) CALC BUN/CREAT (test 28 RATIO 6-28 code = 223) SODIUM (test code = 140 MEQ/L 740-597 1283) POTASSIUM (test code 4.2 MEQ/L 3.5-5.4 = 2227) CHLORIDE (test code 95 MEQ/L 95-107 = 2214) CARBON DIOXIDE (test 32 MEQ/L 19-31 H code = 2205) CALCIUM (test code = 10.0 MG/DL 8.5-10.5 2208) PROTEIN, TOTAL (test 6.7 G/DL 6.1-8.3 code = 2228) ALBUMIN (test code = 4.4 G/DL 3.5-5.2 2200) CALC GLOBULIN (test 2.3 G/DL 1.9-3.7 code = 224) CALC A/G RATIO (test 1.9 RATIO 1.0-2.6 code = 223) BILIRUBIN, TOTAL 0.3 MG/DL See_Comment [Automated message] [...] code = 25 U/L 5-40 2218) LIPID [id number] 03:45:06 Test Item Value Reference Range Interpretation [...] MOREINFORMATION , SEE CLIENT ANNOUNCE MENT AT [email or web address] RISK RATIO LDL/HDL 0.93 RATIO <3.22 (test code = 2238) LIPID [id number] 00:00:00 Test Item Value Reference Range Interpretation Comments CHOLESTEROL (test code = 2210) 134 MG/DL TRIGLYCERIDES (test code = 2232) 81 MG/DL HDL CHOLESTEROL (test code = 2220) 61 MG/DL CALC LDL CHOL (test code = 2237) 57 MG/DL RISK RATIO LDL/HDL (test code = 0.93 RATIO 2238) LIPID [id number] 00:00:00 Test Item Value Reference Range Interpretation Comments CHOLESTEROL (test code = 2210) 134 MG/DL TRIGLYCERIDES (test code = 2232) 81 MG/DL HDL CHOLESTEROL (test code = 2220) 61 MG/DL CALC LDL CHOL (test code = 2237) 57 MG/DL RISK RATIO LDL/HDL (test code = 0.93 RATIO 2238) HEMOGLOBIN [id number] 00:00:00 Test Item Value Reference Range Interpretation Comments HEMOGLOBIN A1c (test code = 26420) 8.3 % HEMOGLOBIN [id number] 00:00:00 Test Item Value Reference Range Interpretation Comments HEMOGLOBIN A1c (test code = 18400) 8.3 % HEMOGLOBIN [id number] 00:00:00 Test Item Value Reference Range Interpretation Comments HEMOGLOBIN A1c (test code = 47861) 8.3 % LACTIC ACID, PLASMA [ADDED]2021-07-09 00:00:00 Test Item Value Reference Range Interpretation Comments LACTIC ACID, PLASMA (test code = 27.1 MG/DL 2056) LACTIC ACID, PLASMA [ADDED]2021-07-09 00:00:00 Test Item Value Reference Range Interpretation Comments LACTIC ACID, PLASMA (test code = 27.1 MG/DL 2056) COMPREHENSIVE METABOLIC [id number] 00:00:00 Test Item Value Reference Range Interpretation Comments GLUCOSE (test code = 2217) 397 MG/DL BUN (test code = 2208) 21 MG/DL CREATININE (test code = 2214) 0.75 MG/DL eGFR (2020 CKD-EPI) (test code 88 ML/MIN/1.73 = 34476) CALC BUN/CREAT (test code = 28 RATIO [...] code = 2219) 25 U/L COMPREHENSIVE METABOLIC [id number] 00:00:00 Test Item Value Reference Range Interpretation Comments GLUCOSE (test code = 2217) 397 MG/DL BUN (test code = 2208) 21 MG/DL CREATININE (test code = 2214) 0.75 MG/DL eGFR (2020 CKD-EPI) (test code 88 ML/MIN/1.73 = 30808) CALC BUN/CREAT (test code = 28 RATIO [...] (test code = 2219) 25 U/L LIPID [id number] 00:00:00 Test Item Value Reference Range Interpretation Comments CHOLESTEROL (test code = 2210) 134 MG/DL TRIGLYCERIDES (test code = 2232) 81 MG/DL HDL CHOLESTEROL (test code = 2220) 61 MG/DL CALC LDL CHOL (test code = 2237) 57 MG/DL RISK RATIO LDL/HDL (test code = 0.93 RATIO 2238) LIPID [id number] 00:00:00 Test Item Value Reference Range Interpretation Comments CHOLESTEROL (test code = 2210) 134 MG/DL TRIGLYCERIDES (test code = 2232) 81 MG/DL HDL CHOLESTEROL (test code = 2220) 61 MG/DL CALC LDL CHOL (test code = 2237) 57 MG/DL RISK RATIO LDL/HDL (test code = 0.93 RATIO 2238) HEMOGLOBIN [id number] 00:00:00 Test Item Value Reference Range Interpretation Comments HEMOGLOBIN A1c (test code = 33385) 8.3 % HEMOGLOBIN [id number] 00:00:00 Test Item Value Reference Range Interpretation Comments HEMOGLOBIN A1c (test code = 85347) 8.3 % HEMOGLOBIN [id number] 00:00:00 Test Item Value Reference Range Interpretation Comments HEMOGLOBIN A1c (test code = 09691) 8.3 % LACTIC ACID, PLASMA [ADDED]2021-07-09 00:00:00 Test Item Value Reference Range Interpretation Comments LACTIC ACID, PLASMA (test code = 27.1 MG/DL 2056) LACTIC ACID, PLASMA [ADDED]2021-07-09 00:00:00 Test Item Value Reference Range Interpretation Comments LACTIC ACID, PLASMA (test code = 27.1 MG/DL 2056) COMPREHENSIVE METABOLIC [id number] 00:00:00 Test Item Value Reference Range Interpretation Comments GLUCOSE (test code = 2217) 397 MG/DL BUN (test code = 2208) 21 MG/DL CREATININE (test code = 2214) 0.75 MG/DL eGFR (2020 CKD-EPI) (test code 88 ML/MIN/1.73 = 74358) CALC BUN/CREAT (test code = 28 RATIO [...] code = 2219) 25 U/L COMPREHENSIVE METABOLIC [id number] 00:00:00 Test Item Value Reference Range Interpretation Comments GLUCOSE (test code = 2217) 397 MG/DL BUN (test code = 2208) 21 MG/DL CREATININE (test code = 2214) 0.75 MG/DL eGFR (2020 CKD-EPI) (test code 88 ML/MIN/1.73 = 27649) CALC BUN/CREAT (test code = 28 RATIO [...] (test code = 2219) 25 U/L LIPID [id number] 00:00:00 Test Item Value Reference Range Interpretation Comments CHOLESTEROL (test code = 2210) 134 MG/DL TRIGLYCERIDES (test code = 2232) 81 MG/DL HDL CHOLESTEROL (test code = 2220) 61 MG/DL CALC LDL CHOL (test code = 2237) 57 MG/DL RISK RATIO LDL/HDL (test code = 0.93 RATIO 2238) LIPID [id number] 00:00:00 Test Item Value Reference Range Interpretation Comments CHOLESTEROL (test code = 2210) 134 MG/DL TRIGLYCERIDES (test code = 2232) 81 MG/DL HDL CHOLESTEROL (test code = 2220) 61 MG/DL CALC LDL CHOL (test code = 2237) 57 MG/DL RISK RATIO LDL/HDL (test code = 0.93 RATIO 8) HEMOGLOBIN [id number] 00:00:00 Test Item Value Reference Range Interpretation Comments HEMOGLOBIN A1c (test code = 99490) 8.3 % HEMOGLOBIN [id number] 00:00:00 Test Item Value Reference Range Interpretation Comments HEMOGLOBIN A1c (test code = 42952) 8.3 % HEMOGLOBIN [id number] 00:00:00 Test Item Value Reference Range Interpretation Comments HEMOGLOBIN A1c (test code = 42271) 8.3 % LACTIC ACID, PLASMA [ADDED]2021-07-09 00:00:00 Test Item Value Reference Range Interpretation Comments LACTIC ACID, PLASMA (test code = 27.1 MG/DL 2056) LACTIC ACID, PLASMA [ADDED]2021-07-09 00:00:00 Test Item Value Reference Range Interpretation Comments LACTIC ACID, PLASMA (test code = 27.1 MG/DL 2056) COMPREHENSIVE METABOLIC [id number] 00:00:00 Test Item Value Reference Range Interpretation Comments GLUCOSE (test code = 2217) 397 MG/DL BUN (test code = 2208) 21 MG/DL CREATININE (test code = 2214) 0.75 MG/DL eGFR (2020 CKD-EPI) (test code 88 ML/MIN/1.73 = 73109) CALC BUN/CREAT (test code = 28 RATIO [...] code = 2219) 25 U/L COMPREHENSIVE METABOLIC [id number] 00:00:00 Test Item Value Reference Range Interpretation Comments GLUCOSE (test code = 2217) 397 MG/DL BUN (test code = 2208) 21 MG/DL CREATININE (test code = 2214) 0.75 MG/DL eGFR (2020 CKD-EPI) (test code 88 ML/MIN/1.73 = 82998) CALC BUN/CREAT (test code = 28 RATIO [...] (test code = 2219) 25 U/L LIPID [id number] 00:00:00 Test Item Value Reference Range Interpretation Comments CHOLESTEROL (test code = 2210) 134 MG/DL TRIGLYCERIDES (test code = 2232) 81 MG/DL HDL CHOLESTEROL (test code = 2220) 61 MG/DL CALC LDL CHOL (test code = 2237) 57 MG/DL RISK RATIO LDL/HDL (test code = 0.93 RATIO 2238) LIPID [id number] 00:00:00 Test Item Value Reference Range Interpretation Comments CHOLESTEROL (test code = 2210) 134 MG/DL TRIGLYCERIDES (test code = 2232) 81 MG/DL HDL CHOLESTEROL (test code = 2220) 61 MG/DL CALC LDL CHOL (test code = 2237) 57 MG/DL RISK RATIO LDL/HDL (test code = 0.93 RATIO 2238) HEMOGLOBIN [id number] 00:00:00 Test Item Value Reference Range Interpretation Comments HEMOGLOBIN A1c (test code = 57286) 8.3 % HEMOGLOBIN [id number] 00:00:00 Test Item Value Reference Range Interpretation Comments HEMOGLOBIN A1c (test code = 51944) 8.3 % HEMOGLOBIN [id number] 00:00:00 Test Item Value Reference Range Interpretation Comments HEMOGLOBIN A1c (test code = 54325) 8.3 % LACTIC ACID, PLASMA [ADDED]2021-07-09 00:00:00 Test Item Value Reference Range Interpretation Comments LACTIC ACID, PLASMA (test code = 27.1 MG/DL 2056) LACTIC ACID, PLASMA [ADDED]2021-07-09 00:00:00 Test Item Value Reference Range Interpretation Comments LACTIC ACID, PLASMA (test code = 27.1 MG/DL 2056) COMPREHENSIVE METABOLIC [id number] 00:00:00 Test Item Value Reference Range Interpretation Comments GLUCOSE (test code = 2217) 397 MG/DL BUN (test code = 2208) 21 MG/DL CREATININE (test code = 2214) 0.75 MG/DL eGFR (2020 CKD-EPI) (test code 88 ML/MIN/1.73 = 18515) CALC BUN/CREAT (test code = 28 RATIO [...] code = 2219) 25 U/L COMPREHENSIVE METABOLIC [id number] 00:00:00 Test Item Value Reference Range Interpretation Comments GLUCOSE (test code = 2217) 397 MG/DL BUN (test code = 2208) 21 MG/DL CREATININE (test code = 2214) 0.75 MG/DL eGFR (2020 CKD-EPI) (test code 88 ML/MIN/1.73 = 58794) CALC BUN/CREAT (test code = 28 RATIO 5) SODIUM (test code = 2231) 140 MEQ/L [...] ALKALINE PHOSPHATASE (test 73 U/L code = 220) AST (test code = 2218) 19 U/L ALT (test code = 2219) 25 U/L LACTIC ACID, [id number] 15:11:52 Test Item Value Reference Range Interpretation Comments LACTIC ACID, 11.7 MG/DL 4.5-19.8 UNLESS OTHERWI SE PLASMA (test code INDICATED, ALL TESTING = 2056) [facility] [address] [place] [id number] [place] [address] DIRECTOR: TITA PARIKH M.D. CLIA NUMBER [id number] CAP ACCREDITATION N O. [id number] LACTIC ACID, PLASMA [ADDED]2021-05-29 00:00:00 Test Item [...] (test code = 11.7 MG/DL 2056) HEMOGLOBIN [id number] 03:44:50 Test Item Value Reference Range Interpretation Comments HEMOGLOBIN A1c (test 7.5 % 4.2-5.6 H AMERIC AN DIABETES code = 02132) ASSOCIATION IDELINES FOR HGB A1C: PREDIABETES/INC REASED [...] TESTING OR LABORATORY C ONSULTATION. COMPREHENSIVE METABOLIC [id number] 03:25:55 Test Item Value Reference Range Interpretation Comments GLUCOSE (test code = 159 MG/DL 70-99 H 2216) BUN (test code = 17 MG/DL 8-23 2207) CREATININE (test 0.56 MG/DL 0.60-1.30 L code = 2214) eGFR (2020 CKD-EPI) 101 >60 (test code = 17652) ML/MIN/1.73 CALC BUN/CREAT (test 30 RATIO 6-28 H code = 2235) SODIUM (test code = 141 MEQ/L [phone]) POTASSIUM (test code 4.4 MEQ/L 3.5-5.4 = [...] (2020 CKD-EPI) (test 101 ML/MIN/1.73 code = 38987) CALC BUN/CREAT (test code = 30 RATIO [...] (2020 CKD-EPI) (test 101 ML/MIN/1.73 code = 75468) CALC BUN/CREAT (test code = 30 RATIO [...] Interpretation Comments HEMOGLOBIN A1c (test code = 11136) 7.5 % HEMOGLOBIN A1c [ADDED]2021-05-28 00:00:00 Test Item Value Reference Range Interpretation Comments HEMOGLOBIN A1c (test code = 62744) 7.5 % HEMOGLOBIN A1c [ADDED]2021-05-28 00:00:00 Test Item Value Reference Range Interpretation Comments HEMOGLOBIN A1c (test code = 78919) 7.5 % COMPREHENSIVE METABOLIC PANEL [ADDED]2021-05-28 00:00:00 Test Item Value Reference Range Interpretation Comments GLUCOSE (test code = 2217) 159 MG/DL BUN (test code = 2208) 17 MG/DL CREATININE (test code = 2214) 0.56 MG/DL eGFR (2020 CKD-EPI) (test 101 ML/MIN/1.73 code = 01947) CALC BUN/CREAT (test code = 30 RATIO [...] (2020 CKD-EPI) (test 101 ML/MIN/1.73 code = 47104) CALC BUN/CREAT (test code = 30 RATIO [...] Interpretation Comments HEMOGLOBIN A1c (test code = 28390) 7.5 % HEMOGLOBIN A1c [ADDED]2021-05-28 00:00:00 Test Item Value Reference Range Interpretation Comments HEMOGLOBIN A1c (test code = 87630) 7.5 % HEMOGLOBIN A1c [ADDED]2021-05-28 00:00:00 Test Item Value Reference Range Interpretation Comments HEMOGLOBIN A1c (test code = 90840) 7.5 % COMPREHENSIVE METABOLIC PANEL [ADDED]2021-05-28 00:00:00 Test Item Value Reference Range Interpretation Comments GLUCOSE (test code = 2217) 159 MG/DL BUN (test code = 2208) 17 MG/DL CREATININE (test code = 2214) 0.56 MG/DL eGFR (2020 CKD-EPI) (test 101 ML/MIN/1.73 code = 48406) CALC BUN/CREAT (test code = 30 RATIO [...] (2020 CKD-EPI) (test 101 ML/MIN/1.73 code = 08065) CALC BUN/CREAT (test code = 30 RATIO [...] Interpretation Comments HEMOGLOBIN A1c (test code = 94030) 7.5 % HEMOGLOBIN A1c [ADDED]2021-05-28 00:00:00 Test Item Value Reference Range Interpretation Comments HEMOGLOBIN A1c (test code = 97591) 7.5 % HEMOGLOBIN A1c [ADDED]2021-05-28 00:00:00 Test Item Value Reference Range Interpretation Comments HEMOGLOBIN A1c (test code = 35354) 7.5 % COMPREHENSIVE METABOLIC PANEL [ADDED]2021-05-28 00:00:00 Test Item Value Reference Range Interpretation Comments GLUCOSE (test code = 2217) 159 MG/DL BUN (test code = 2208) 17 MG/DL CREATININE (test code = 2214) 0.56 MG/DL eGFR (2020 CKD-EPI) (test 101 ML/MIN/1.73 code = 67509) CALC BUN/CREAT (test code = 30 RATIO [...] (2020 CKD-EPI) (test 101 ML/MIN/1.73 code = 81389) CALC BUN/CREAT (test code = 30 RATIO 5) SODIUM (test code = 2231) 141 MEQ/L [...] Interpretation Comments HEMOGLOBIN A1c (test code = 53937) 7.5 % HEMOGLOBIN A1c [ADDED]2021-05-28 00:00:00 Test Item Value Reference Range Interpretation Comments HEMOGLOBIN A1c (test code = 35787) 7.5 % HEMOGLOBIN A1c [ADDED]2021-05-28 00:00:00 Test Item Value Reference Range Interpretation Comments HEMOGLOBIN A1c (test code = 79410) 7.5 % LACTIC ACID, [id number] 15:10:19 Test Item Value Reference Range Interpretation Comments LACTIC ACID, 34.5 MG/DL 4.5-19.8 H UNLESS OTHERWI SE PLASMA (test code INDICATED, ALL TESTING = 2056) PERFORMED [facility] [address] [place] [address] [facility] DIRECTOR: TITA PARIKH M.D. CLIA NUMBER [id number] CAP ACCREDITATION N O. [id number] LACTIC ACID, PLASMA [ADDED]2021-05-16 00:00:00 Test Item [...] code = 34.5 MG/DL 2056) LACTIC ACID, [id number] 13:30:20 Test Item Value Reference Range Interpretation Comments LACTIC ACID, 18.5 MG/DL 4.5-19.8 UNLESS OTHERW ISE PLASMA (test code INDICATED, ALL TESTING = 2056) PERFORMED [facility] [address] [facility] [place] [address] [facility] DIRECTOR: Noelle VALLADARESIA NUMBER [id number] CAP ACCREDITATION N O. [id number] LACTIC ACID, [id number] 00:00:00 Test Item Value Reference Range Interpretation Comments LACTIC ACID, PLASMA (test code = 18.5 MG/DL 2056) LACTIC ACID, [id number] 00:00:00 Test Item Value Reference Range Interpretation Comments LACTIC ACID, PLASMA (test code = 18.5 MG/DL 2056) LACTIC ACID, [id number] 00:00:00 Test Item Value Reference Range Interpretation Comments LACTIC ACID, PLASMA (test code = 18.5 MG/DL 2056) LACTIC ACID, [id number] 00:00:00 Test Item Value Reference Range Interpretation Comments LACTIC ACID, PLASMA (test code = 18.5 MG/DL 2056) LACTIC ACID, [id number] 00:00:00 Test Item Value Reference Range Interpretation Comments LACTIC ACID, PLASMA (test code = 18.5 MG/DL 2056) LACTIC ACID, [id number] 00:00:00 Test Item Value Reference Range Interpretation Comments LACTIC ACID, PLASMA (test code = 18.5 MG/DL 2056) LACTIC ACID, [id number] 00:00:00 Test Item Value Reference Range Interpretation Comments LACTIC ACID, PLASMA (test code = 18.5 MG/DL 2056) LACTIC ACID, [id number] 00:00:00 Test Item Value Reference Range Interpretation Comments LACTIC ACID, PLASMA (test code = 18.5 MG/DL 2056) TSH, THIRD [id number] 06:41:17 Test Item Value Reference Range Interpretation Comments TSH, THIRD GENERATION (test code 1.300 UIU/ML 0.400-4.100 = 2821) LIPID [id number] 04:18:20 Test Item Value Reference Range Interpretation [...] , SEE CLIENT ANNOUNCE MENT AT [email or web address] RISK RATIO LDL/HDL 0.85 RATIO <3.22 (test code = 2238) COMPREHENSIVE METABOLIC [id number] 04:18:20 Test Item Value Reference Range Interpretation Comments GLUCOSE (test code = 93 MG/DL 70-99 2216) BUN (test code = 15 MG/DL 8-23 2207) CREATININE (test 0.72 MG/DL 0.60-1.30 code = 221) eGFR (2020 CKD-EPI) 93 ML/MIN/1.73 >60 (test code = 76767) CALC BUN/CREAT (test 21 RATIO 6-28 code = 2235) SODIUM (test code = 143 MEQ/L 962-185 2464) POTASSIUM (test code 3.8 MEQ/L 3.5-5.4 = 2227) CHLORIDE (test code 98 MEQ/L 95-107 = 2214) CARBON DIOXIDE (test 29 MEQ/L 19-31 code = 2205) CALCIUM (test code = 9.8 MG/DL 8.5-10.5 2208) PROTEIN, TOTAL (test 6.6 G/DL 6.1-8.3 code = 2228) ALBUMIN (test code = 4.2 G/DL 3.5-5.2 2200) CALC GLOBULIN (test 2.4 G/DL 1.9-3.7 code = 2239) CALC A/G RATIO (test 1.8 RATIO 1.0-2.6 code = 223) BILIRUBIN, TOTAL 0.3 MG/DL See_Comment [Automated message] [...] code = 36 U/L 5-40 2218) HEMOGLOBIN [id number] 03:31:34 Test Item Value Reference Range Interpretation Comments HEMOGLOBIN A1c (test 7.8 % 4.2-5.6 H AMERIC AN DIABETES code = 54322) ASSOCIATION IDELINES FOR HGB A1C: PREDIABETES/INC REASED [...] ATE TESTING OR LABORATORY C ONSULTATION. HEMOGLOBIN [id number] 00:00:00 Test Item Value Reference Range Interpretation Comments HEMOGLOBIN A1c (test code = 42896) 7.8 % HEMOGLOBIN [id number] 00:00:00 Test Item Value Reference Range Interpretation Comments HEMOGLOBIN A1c (test code = 25145) 7.8 % HEMOGLOBIN [id number] 00:00:00 Test Item Value Reference Range Interpretation Comments HEMOGLOBIN A1c (test code = 62280) 7.8 % COMPREHENSIVE METABOLIC [id number] 00:00:00 Test Item Value Reference Range Interpretation Comments GLUCOSE (test code = 2217) 93 MG/DL BUN (test code = 2208) 15 MG/DL CREATININE (test code = 2214) 0.72 MG/DL eGFR (2020 CKD-EPI) (test code 93 ML/MIN/1.73 = 35962) CALC BUN/CREAT (test code = 21 RATIO [...] code = 2219) 36 U/L COMPREHENSIVE METABOLIC [id number] 00:00:00 Test Item Value Reference Range Interpretation Comments GLUCOSE (test code = 2217) 93 MG/DL BUN (test code = 2208) 15 MG/DL CREATININE (test code = 2214) 0.72 MG/DL eGFR (2020 CKD-EPI) (test code 93 ML/MIN/1.73 = 23655) CALC BUN/CREAT (test code = 21 RATIO [...] ALT (test code = 2219) 36 U/L [id number] 00:00:00 Test Item Value Reference Range Interpretation Comments TSH, THIRD GENERATION (test code 1.300 UIU/ML = 2821) [id number] 00:00:00 Test Item Value Reference Range Interpretation Comments TSH, THIRD GENERATION (test code 1.300 UIU/ML = 2821) [id number] 00:00:00 Test Item Value Reference Range Interpretation Comments TSH, THIRD GENERATION (test code 1.300 UIU/ML = 2821) LIPID [id number] 00:00:00 Test Item Value Reference Range Interpretation Comments CHOLESTEROL (test code = 2210) 125 MG/DL TRIGLYCERIDES (test code = 2232) 167 MG/DL HDL CHOLESTEROL (test code = 2220) 54 MG/DL CALC LDL CHOL (test code = 2237) 46 MG/DL RISK RATIO LDL/HDL (test code = 0.85 RATIO 2238) LIPID [id number] 00:00:00 Test Item Value Reference Range Interpretation Comments CHOLESTEROL (test code = 2210) 125 MG/DL TRIGLYCERIDES (test code = 2232) 167 MG/DL HDL CHOLESTEROL (test code = 2220) 54 MG/DL CALC LDL CHOL (test code = 2237) 46 MG/DL RISK RATIO LDL/HDL (test code = 0.85 RATIO 2238) HEMOGLOBIN [id number] 00:00:00 Test Item Value Reference Range Interpretation Comments HEMOGLOBIN A1c (test code = 42178) 7.8 % HEMOGLOBIN [id number] 00:00:00 Test Item Value Reference Range Interpretation Comments HEMOGLOBIN A1c (test code = 91811) 7.8 % HEMOGLOBIN [id number] 00:00:00 Test Item Value Reference Range Interpretation Comments HEMOGLOBIN A1c (test code = 46159) 7.8 % COMPREHENSIVE METABOLIC [id number] 00:00:00 Test Item Value Reference Range Interpretation Comments GLUCOSE (test code = 2217) 93 MG/DL BUN (test code = 2208) 15 MG/DL CREATININE (test code = 2214) 0.72 MG/DL eGFR (2020 CKD-EPI) (test code 93 ML/MIN/1.73 = 31963) CALC BUN/CREAT (test code = 21 RATIO [...] code = 2219) 36 U/L COMPREHENSIVE METABOLIC [id number] 00:00:00 Test Item Value Reference Range Interpretation Comments GLUCOSE (test code = 2217) 93 MG/DL BUN (test code = 2208) 15 MG/DL CREATININE (test code = 2214) 0.72 MG/DL eGFR (2020 CKD-EPI) (test code 93 ML/MIN/1.73 = 93652) CALC BUN/CREAT (test code = 21 RATIO [...] ALT (test code = 2219) 36 U/L [id number] 00:00:00 Test Item Value Reference Range Interpretation Comments TSH, THIRD GENERATION (test code 1.300 UIU/ML = 2821) [id number] 00:00:00 Test Item Value Reference Range Interpretation Comments TSH, THIRD GENERATION (test code 1.300 UIU/ML = 2821) [id number] 00:00:00 Test Item Value Reference Range Interpretation Comments TSH, THIRD GENERATION (test code 1.300 UIU/ML = 2821) LIPID [id number] 00:00:00 Test Item Value Reference Range Interpretation Comments CHOLESTEROL (test code = 2210) 125 MG/DL TRIGLYCERIDES (test code = 2232) 167 MG/DL HDL CHOLESTEROL (test code = 2220) 54 MG/DL CALC LDL CHOL (test code = 2237) 46 MG/DL RISK RATIO LDL/HDL (test code = 0.85 RATIO 2238) LIPID [id number] 00:00:00 Test Item Value Reference Range Interpretation Comments CHOLESTEROL (test code = 2210) 125 MG/DL TRIGLYCERIDES (test code = 2232) 167 MG/DL HDL CHOLESTEROL (test code = 2220) 54 MG/DL CALC LDL CHOL (test code = 2237) 46 MG/DL RISK RATIO LDL/HDL (test code = 0.85 RATIO 2238) HEMOGLOBIN [id number] 00:00:00 Test Item Value Reference Range Interpretation Comments HEMOGLOBIN A1c (test code = 53717) 7.8 % HEMOGLOBIN [id number] 00:00:00 Test Item Value Reference Range Interpretation Comments HEMOGLOBIN A1c (test code = 39952) 7.8 % HEMOGLOBIN [id number] 00:00:00 Test Item Value Reference Range Interpretation Comments HEMOGLOBIN A1c (test code = 07827) 7.8 % COMPREHENSIVE METABOLIC [id number] 00:00:00 Test Item Value Reference Range Interpretation Comments GLUCOSE (test code = 2217) 93 MG/DL BUN (test code = 2208) 15 MG/DL CREATININE (test code = 2214) 0.72 MG/DL eGFR (2020 CKD-EPI) (test code 93 ML/MIN/1.73 = 30541) CALC BUN/CREAT (test code = 21 RATIO [...] code = 2219) 36 U/L COMPREHENSIVE METABOLIC [id number] 00:00:00 Test Item Value Reference Range Interpretation Comments GLUCOSE (test code = 2217) 93 MG/DL BUN (test code = 2208) 15 MG/DL CREATININE (test code = 2214) 0.72 MG/DL eGFR (2020 CKD-EPI) (test code 93 ML/MIN/1.73 = 74807) CALC BUN/CREAT (test code = 21 RATIO [...] ALT (test code = 2219) 36 U/L [id number] 00:00:00 Test Item Value Reference Range Interpretation Comments TSH, THIRD GENERATION (test code 1.300 UIU/ML = 2821) [id number] 00:00:00 Test Item Value Reference Range Interpretation Comments TSH, THIRD GENERATION (test code 1.300 UIU/ML = 2821) [id number] 00:00:00 Test Item Value Reference Range Interpretation Comments TSH, THIRD GENERATION (test code 1.300 UIU/ML = 2821) LIPID [id number] 00:00:00 Test Item Value Reference Range Interpretation Comments CHOLESTEROL (test code = 2210) 125 MG/DL TRIGLYCERIDES (test code = 2232) 167 MG/DL HDL CHOLESTEROL (test code = 2220) 54 MG/DL CALC LDL CHOL (test code = 2237) 46 MG/DL RISK RATIO LDL/HDL (test code = 0.85 RATIO 2238) LIPID [id number] 00:00:00 Test Item Value Reference Range Interpretation Comments CHOLESTEROL (test code = 2210) 125 MG/DL TRIGLYCERIDES (test code = 2232) 167 MG/DL HDL CHOLESTEROL (test code = 2220) 54 MG/DL CALC LDL CHOL (test code = 2237) 46 MG/DL RISK RATIO LDL/HDL (test code = 0.85 RATIO 2238) HEMOGLOBIN [id number] 00:00:00 Test Item Value Reference Range Interpretation Comments HEMOGLOBIN A1c (test code = 80415) 7.8 % HEMOGLOBIN [id number] 00:00:00 Test Item Value Reference Range Interpretation Comments HEMOGLOBIN A1c (test code = 27708) 7.8 % HEMOGLOBIN [id number] 00:00:00 Test Item Value Reference Range Interpretation Comments HEMOGLOBIN A1c (test code = 46810) 7.8 % COMPREHENSIVE METABOLIC [id number] 00:00:00 Test Item Value Reference Range Interpretation Comments GLUCOSE (test code = 2217) 93 MG/DL BUN (test code = 2208) 15 MG/DL CREATININE (test code = 2214) 0.72 MG/DL eGFR (2020 CKD-EPI) (test code 93 ML/MIN/1.73 = 79764) CALC BUN/CREAT (test code = 21 RATIO [...] code = 2219) 36 U/L COMPREHENSIVE METABOLIC [id number] 00:00:00 Test Item Value Reference Range Interpretation Comments GLUCOSE (test code = 2217) 93 MG/DL BUN (test code = 2208) 15 MG/DL CREATININE (test code = 2214) 0.72 MG/DL eGFR (2020 CKD-EPI) (test code 93 ML/MIN/1.73 = 53375) CALC BUN/CREAT (test code = 21 RATIO [...] ALT (test code = 2219) 36 U/L [id number] 00:00:00 Test Item Value Reference Range Interpretation Comments TSH, THIRD GENERATION (test code 1.300 UIU/ML = 2821) [id number] 00:00:00 Test Item Value Reference Range Interpretation Comments TSH, THIRD GENERATION (test code 1.300 UIU/ML = 2821) [id number] 00:00:00 Test Item Value Reference Range Interpretation Comments TSH, THIRD GENERATION (test code 1.300 UIU/ML = 2821) LIPID [id number] 00:00:00 Test Item Value Reference Range Interpretation Comments CHOLESTEROL (test code = 2210) 125 MG/DL TRIGLYCERIDES (test code = 2232) 167 MG/DL HDL CHOLESTEROL (test code = 2220) 54 MG/DL CALC LDL CHOL (test code = 2237) 46 MG/DL RISK RATIO LDL/HDL (test code = 0.85 RATIO 2238) LIPID [id number] 00:00:00 Test Item Value Reference Range Interpretation Comments CHOLESTEROL (test code = 2210) 125 MG/DL TRIGLYCERIDES (test code = 2232) 167 MG/DL HDL CHOLESTEROL (test code = 2220) 54 MG/DL CALC LDL CHOL (test code = 2237) 46 MG/DL RISK RATIO LDL/HDL (test code = 0.85 RATIO 2238) MICROALBUMIN/CREATININE, RANDOM AND [id number] 00:00:00 Test Item Value Reference Range Interpretation Comments CREATININE, URINE, CONC. (test 128.0 MG/DL code = 2072) ALBUMIN, URINE, RANDOM (test code 2.2 MG/DL = 25101) CALC ALBUMIN/CREAT, RND (test 17 MG/G code = 57479) HEMOGLOBIN [id number] 00:00:00 Test Item Value Reference Range Interpretation Comments HEMOGLOBIN A1c (test code = 48012) 10.9 % HEMOGLOBIN [id number] 00:00:00 Test Item Value Reference Range Interpretation Comments HEMOGLOBIN A1c (test code = 72169) 10.9 % HEMOGLOBIN [id number] 00:00:00 Test Item Value Reference Range Interpretation Comments HEMOGLOBIN A1c (test code = 50221) 10.9 % MICROALBUMIN/CREATININE, RANDOM AND [id number] 00:00:00 Test Item Value Reference Range Interpretation Comments CREATININE, URINE, CONC. (test 128.0 MG/DL code = 2072) ALBUMIN, URINE, RANDOM (test code 2.2 MG/DL = 04490) CALC ALBUMIN/CREAT, RND (test 17 MG/G code = 21115) MICROALBUMIN/CREATININE, RANDOM AND [id number] 00:00:00 Test Item Value Reference Range Interpretation Comments CREATININE, URINE, CONC. (test 128.0 MG/DL code = 2072) ALBUMIN, URINE, RANDOM (test code 2.2 MG/DL = 73578) CALC ALBUMIN/CREAT, RND (test 17 MG/G code = 52098) HEMOGLOBIN [id number] 00:00:00 Test Item Value Reference Range Interpretation Comments HEMOGLOBIN A1c (test code = 32004) 10.9 % HEMOGLOBIN [id number] 00:00:00 Test Item Value Reference Range Interpretation Comments HEMOGLOBIN A1c (test code = 81893) 10.9 % HEMOGLOBIN [id number] 00:00:00 Test Item Value Reference Range Interpretation Comments HEMOGLOBIN A1c (test code = 84728) 10.9 % MICROALBUMIN/CREATININE, RANDOM AND [id number] 00:00:00 Test Item Value Reference Range Interpretation Comments CREATININE, URINE, CONC. (test 128.0 MG/DL code = 2072) ALBUMIN, URINE, RANDOM (test code 2.2 MG/DL = 64672) CALC ALBUMIN/CREAT, RND (test 17 MG/G code = 85111) MICROALBUMIN/CREATININE, RANDOM AND [id number] 00:00:00 Test Item Value Reference Range Interpretation Comments CREATININE, URINE, CONC. (test 128.0 MG/DL code = 2072) ALBUMIN, URINE, RANDOM (test code 2.2 MG/DL = 59898) CALC ALBUMIN/CREAT, RND (test 17 MG/G code = 35881) HEMOGLOBIN [id number] 00:00:00 Test Item Value Reference Range Interpretation Comments HEMOGLOBIN A1c (test code = 60177) 10.9 % HEMOGLOBIN [id number] 00:00:00 Test Item Value Reference Range Interpretation Comments HEMOGLOBIN A1c (test code = 28205) 10.9 % HEMOGLOBIN [id number] 00:00:00 Test Item Value Reference Range Interpretation Comments HEMOGLOBIN A1c (test code = 82482) 10.9 % MICROALBUMIN/CREATININE, RANDOM AND [id number] 00:00:00 Test Item Value Reference Range Interpretation Comments CREATININE, URINE, CONC. (test 128.0 MG/DL code = 2072) ALBUMIN, URINE, RANDOM (test code 2.2 MG/DL = 88657) CALC ALBUMIN/CREAT, RND (test 17 MG/G code = 65932) MICROALBUMIN/CREATININE, RANDOM AND [id number] 00:00:00 Test Item Value Reference Range Interpretation Comments CREATININE, URINE, CONC. (test 128.0 MG/DL code = 2072) ALBUMIN, URINE, RANDOM (test code 2.2 MG/DL = 43484) CALC ALBUMIN/CREAT, RND (test 17 MG/G code = 95121) HEMOGLOBIN [id number] 00:00:00 Test Item Value Reference Range Interpretation Comments HEMOGLOBIN A1c (test code = 66815) 10.9 % HEMOGLOBIN [id number] 00:00:00 Test Item Value Reference Range Interpretation Comments HEMOGLOBIN A1c (test code = 98050) 10.9 % HEMOGLOBIN [id number] 00:00:00 Test Item Value Reference Range Interpretation Comments HEMOGLOBIN A1c (test code = 60530) 10.9 % MICROALBUMIN/CREATININE, RANDOM AND [id number] 00:00:00 Test Item Value Reference Range Interpretation Comments CREATININE, URINE, CONC. (test 128.0 MG/DL code = 2072) ALBUMIN, URINE, RANDOM (test code 2.2 MG/DL = 51842) CALC ALBUMIN/CREAT, RND (test 17 MG/G code = 17810) HEMOGLOBIN [id number] 00:00:00 Test Item Value Reference Range Interpretation Comments HEMOGLOBIN A1c (test code = 18792) 10.9 % HEMOGLOBIN [id number] 00:00:00 Test Item Value Reference Range Interpretation Comments HEMOGLOBIN A1c (test code = 57212) 10.9 % HEMOGLOBIN [id number] 00:00:00 Test Item Value Reference Range Interpretation Comments HEMOGLOBIN A1c (test code = 54796) 10.9 % HEMOGLOBIN [id number] 00:00:00 Test Item Value Reference Range Interpretation Comments HEMOGLOBIN A1c (test code = 02436) 10.9 % HEMOGLOBIN [id number] 00:00:00 Test Item Value Reference Range Interpretation Comments HEMOGLOBIN A1c (test code = 62961) 10.9 % HEMOGLOBIN [id number] 00:00:00 Test Item Value Reference Range Interpretation Comments HEMOGLOBIN A1c (test code = 12783) 10.9 % HEMOGLOBIN [id number] 00:00:00 Test Item Value Reference Range Interpretation Comments HEMOGLOBIN A1c (test code = 78407) 10.9 % HEMOGLOBIN [id number] 00:00:00 Test Item Value Reference Range Interpretation Comments HEMOGLOBIN A1c (test code = 57145) 10.9 % HEMOGLOBIN [id number] 00:00:00 Test Item Value Reference Range Interpretation Comments HEMOGLOBIN A1c (test code = 29760) 10.9 % HEMOGLOBIN [id number] 00:00:00 Test Item Value Reference Range Interpretation Comments HEMOGLOBIN A1c (test code = 49294) 10.9 % HEMOGLOBIN [id number] 00:00:00 Test Item Value Reference Range Interpretation Comments HEMOGLOBIN A1c (test code = 54519) 10.9 % HEMOGLOBIN [id number] 00:00:00 Test Item Value Reference Range Interpretation Comments HEMOGLOBIN A1c (test code = 34638) 10.9 % CBC W/AUTO [id number] 00:00:00 Test Item Value Reference Range Interpretation [...] code = 1015) 218 K/UL CBC W/AUTO [id number] 00:00:00 Test Item Value Reference Range Interpretation [...] (test code = 1015) 218 K/UL HEMOGLOBIN [id number] 00:00:00 Test Item Value Reference Range Interpretation Comments HEMOGLOBIN A1c (test code = 79765) 5.9 % HEMOGLOBIN [id number] 00:00:00 Test Item Value Reference Range Interpretation Comments HEMOGLOBIN A1c (test code = 54910) 5.9 % HEMOGLOBIN [id number] 00:00:00 Test Item Value Reference Range Interpretation Comments HEMOGLOBIN A1c (test code = 28885) 5.9 % LIPID [id number] 00:00:00 Test Item Value Reference Range Interpretation Comments CHOLESTEROL (test code = 2210) 131 MG/DL TRIGLYCERIDES (test code = 2232) 190 MG/DL HDL CHOLESTEROL (test code = 2220) 42 MG/DL CALC LDL CHOL (test code = 2237) 63 MG/DL RISK RATIO LDL/HDL (test code = 1.50 RATIO 2238) LIPID [id number] 00:00:00 Test Item Value Reference Range Interpretation Comments CHOLESTEROL (test code = 2210) 131 MG/DL TRIGLYCERIDES (test code = 2232) 190 MG/DL HDL CHOLESTEROL (test code = 2220) 42 MG/DL CALC LDL CHOL (test code = 2237) 63 MG/DL RISK RATIO LDL/HDL (test code = 1.50 RATIO 2238) COMPREHENSIVE METABOLIC [id number] 00:00:00 Test Item Value Reference Range Interpretation Comments GLUCOSE (test code = 2217) 105 MG/DL BUN (test code = 2208) 17 MG/DL CREATININE (test code = 2214) 0.68 MG/DL eGFR AMER. (test code 107 ML/MIN/1.73 = 30929) eGFR NON- AMER. (test 92 ML/MIN/1.73 code = 21553) CALC BUN/CREAT (test code = 25 RATIO [...] code = 2219) 20 U/L COMPREHENSIVE METABOLIC [id number] 00:00:00 Test Item Value Reference Range Interpretation Comments GLUCOSE (test code = 2217) 105 MG/DL BUN (test code = 2208) 17 MG/DL CREATININE (test code = 2214) 0.68 MG/DL eGFR AMER. (test code 107 ML/MIN/1.73 = 87615) eGFR NON- AMER. (test 92 ML/MIN/1.73 code = 69846) CALC BUN/CREAT (test code = 25 RATIO [...] ALT (test code = 2219) 20 U/L [id number] 00:00:00 Test Item Value Reference Range Interpretation Comments TSH, THIRD GENERATION (test code 2.260 UIU/ML = 2821) [id number] 00:00:00 Test Item Value Reference Range Interpretation Comments TSH, THIRD GENERATION (test code 2.260 UIU/ML = 2821) [id number] 00:00:00 Test Item Value Reference Range Interpretation Comments TSH, THIRD GENERATION (test code 2.260 UIU/ML = 2821) CBC W/AUTO [id number] 00:00:00 Test Item Value Reference Range Interpretation [...] code = 1015) 218 K/UL CBC W/AUTO [id number] 00:00:00 Test Item Value Reference Range Interpretation [...] code = 1015) 218 K/UL CBC W/AUTO [id number] 00:00:00 Test Item Value Reference Range Interpretation [...] (test code = 1015) 218 K/UL HEMOGLOBIN [id number] 00:00:00 Test Item Value Reference Range Interpretation Comments HEMOGLOBIN A1c (test code = 34762) 5.9 % HEMOGLOBIN [id number] 00:00:00 Test Item Value Reference Range Interpretation Comments HEMOGLOBIN A1c (test code = 85477) 5.9 % HEMOGLOBIN [id number] 00:00:00 Test Item Value Reference Range Interpretation Comments HEMOGLOBIN A1c (test code = 86479) 5.9 % LIPID [id number] 00:00:00 Test Item Value Reference Range Interpretation Comments CHOLESTEROL (test code = 2210) 131 MG/DL TRIGLYCERIDES (test code = 2232) 190 MG/DL HDL CHOLESTEROL (test code = 2220) 42 MG/DL CALC LDL CHOL (test code = 2237) 63 MG/DL RISK RATIO LDL/HDL (test code = 1.50 RATIO 2238) LIPID [id number] 00:00:00 Test Item Value Reference Range Interpretation Comments CHOLESTEROL (test code = 2210) 131 MG/DL TRIGLYCERIDES (test code = 2232) 190 MG/DL HDL CHOLESTEROL (test code = 2220) 42 MG/DL CALC LDL CHOL (test code = 2237) 63 MG/DL RISK RATIO LDL/HDL (test code = 1.50 RATIO 2238) COMPREHENSIVE METABOLIC [id number] 00:00:00 Test Item Value Reference Range Interpretation Comments GLUCOSE (test code = 2217) 105 MG/DL BUN (test code = 2208) 17 MG/DL CREATININE (test code = 2214) 0.68 MG/DL eGFR AMER. (test code 107 ML/MIN/1.73 = 16057) eGFR NON- AMER. (test 92 ML/MIN/1.73 code = 93161) CALC BUN/CREAT (test code = 25 RATIO [...] CALC GLOBULIN (test code = 2.0 G/DL 224) CALC A/G RATIO (test code = 2.3 RATIO 2234) BILIRUBIN, TOTAL (test code = 0.3 MG/DL 2206) ALKALINE PHOSPHATASE (test 62 U/L code = 2204) AST (test code = 2218) 23 U/L ALT (test code = 2219) 20 U/L COMPREHENSIVE METABOLIC [id number] 00:00:00 Test Item Value Reference Range Interpretation Comments GLUCOSE (test code = 2217) 105 MG/DL BUN (test code = 2208) 17 MG/DL CREATININE (test code = 2214) 0.68 MG/DL eGFR AMER. (test code 107 ML/MIN/1.73 = 85673) eGFR NON- AMER. (test 92 ML/MIN/1.73 code = 40633) CALC BUN/CREAT (test code = 25 RATIO [...] ALT (test code = 2219) 20 U/L [id number] 00:00:00 Test Item Value Reference Range Interpretation Comments TSH, THIRD GENERATION (test code 2.260 UIU/ML = 2821) [id number] 00:00:00 Test Item Value Reference Range Interpretation Comments TSH, THIRD GENERATION (test code 2.260 UIU/ML = 2821) [id number] 00:00:00 Test Item Value Reference Range Interpretation Comments TSH, THIRD GENERATION (test code 2.260 UIU/ML = 2821) CBC W/AUTO [id number] 00:00:00 Test Item Value Reference Range Interpretation [...] code = 1015) 218 K/UL CBC W/AUTO [id number] 00:00:00 Test Item Value Reference Range Interpretation [...] code = 1015) 218 K/UL CBC W/AUTO [id number] 00:00:00 Test Item Value Reference Range Interpretation [...] (test code = 1015) 218 K/UL HEMOGLOBIN [id number] 00:00:00 Test Item Value Reference Range Interpretation Comments HEMOGLOBIN A1c (test code = 35003) 5.9 % HEMOGLOBIN [id number] 00:00:00 Test Item Value Reference Range Interpretation Comments HEMOGLOBIN A1c (test code = 99398) 5.9 % HEMOGLOBIN [id number] 00:00:00 Test Item Value Reference Range Interpretation Comments HEMOGLOBIN A1c (test code = 95498) 5.9 % LIPID [id number] 00:00:00 Test Item Value Reference Range Interpretation Comments CHOLESTEROL (test code = 2210) 131 MG/DL TRIGLYCERIDES (test code = 2232) 190 MG/DL HDL CHOLESTEROL (test code = 2220) 42 MG/DL CALC LDL CHOL (test code = 2237) 63 MG/DL RISK RATIO LDL/HDL (test code = 1.50 RATIO 2238) LIPID [id number] 00:00:00 Test Item Value Reference Range Interpretation Comments CHOLESTEROL (test code = 2210) 131 MG/DL TRIGLYCERIDES (test code = 2232) 190 MG/DL HDL CHOLESTEROL (test code = 2220) 42 MG/DL CALC LDL CHOL (test code = 2237) 63 MG/DL RISK RATIO LDL/HDL (test code = 1.50 RATIO 2238) COMPREHENSIVE METABOLIC [id number] 00:00:00 Test Item Value Reference Range Interpretation Comments GLUCOSE (test code = 2217) 105 MG/DL BUN (test code = 2208) 17 MG/DL CREATININE (test code = 2214) 0.68 MG/DL eGFR AMER. (test code 107 ML/MIN/1.73 = 10764) eGFR NON- AMER. (test 92 ML/MIN/1.73 code = 76409) CALC BUN/CREAT (test code = 25 RATIO [...] code = 2219) 20 U/L COMPREHENSIVE METABOLIC [id number] 00:00:00 Test Item Value Reference Range Interpretation Comments GLUCOSE (test code = 2217) 105 MG/DL BUN (test code = 2208) 17 MG/DL CREATININE (test code = 2214) 0.68 MG/DL eGFR AMER. (test code 107 ML/MIN/1.73 = 94466) eGFR NON- AMER. (test 92 ML/MIN/1.73 code = 55674) CALC BUN/CREAT (test code = 25 RATIO [...] ALT (test code = 2219) 20 U/L [id number] 00:00:00 Test Item Value Reference Range Interpretation Comments TSH, THIRD GENERATION (test code 2.260 UIU/ML = 2821) [id number] 00:00:00 Test Item Value Reference Range Interpretation Comments TSH, THIRD GENERATION (test code 2.260 UIU/ML = 2821) [id number] 00:00:00 Test Item Value Reference Range Interpretation Comments TSH, THIRD GENERATION (test code 2.260 UIU/ML = 2821) CBC W/AUTO [id number] 00:00:00 Test Item Value Reference Range Interpretation [...] code = 1015) 218 K/UL CBC W/AUTO [id number] 00:00:00 Test Item Value Reference Range Interpretation [...] code = 1015) 218 K/UL CBC W/AUTO [id number] 00:00:00 Test Item Value Reference Range Interpretation [...] (test code = 1015) 218 K/UL HEMOGLOBIN [id number] 00:00:00 Test Item Value Reference Range Interpretation Comments HEMOGLOBIN A1c (test code = 31185) 5.9 % HEMOGLOBIN [id number] 00:00:00 Test Item Value Reference Range Interpretation Comments HEMOGLOBIN A1c (test code = 03567) 5.9 % HEMOGLOBIN [id number] 00:00:00 Test Item Value Reference Range Interpretation Comments HEMOGLOBIN A1c (test code = 27935) 5.9 % LIPID [id number] 00:00:00 Test Item Value Reference Range Interpretation Comments CHOLESTEROL (test code = 2210) 131 MG/DL TRIGLYCERIDES (test code = 2232) 190 MG/DL HDL CHOLESTEROL (test code = 2220) 42 MG/DL CALC LDL CHOL (test code = 2237) 63 MG/DL RISK RATIO LDL/HDL (test code = 1.50 RATIO 2238) LIPID [id number] 00:00:00 Test Item Value Reference Range Interpretation Comments CHOLESTEROL (test code = 2210) 131 MG/DL TRIGLYCERIDES (test code = 2232) 190 MG/DL HDL CHOLESTEROL (test code = 2220) 42 MG/DL CALC LDL CHOL (test code = 2237) 63 MG/DL RISK RATIO LDL/HDL (test code = 1.50 RATIO 2238) COMPREHENSIVE METABOLIC [id number] 00:00:00 Test Item Value Reference Range Interpretation Comments GLUCOSE (test code = 2217) 105 MG/DL BUN (test code = 2208) 17 MG/DL CREATININE (test code = 2214) 0.68 MG/DL eGFR AMER. (test code 107 ML/MIN/1.73 = 08106) eGFR NON- AMER. (test 92 ML/MIN/1.73 code = 47669) CALC BUN/CREAT (test code = 25 RATIO [...] code = 2219) 20 U/L COMPREHENSIVE METABOLIC [id number] 00:00:00 Test Item Value Reference Range Interpretation Comments GLUCOSE (test code = 2217) 105 MG/DL BUN (test code = 2208) 17 MG/DL CREATININE (test code = 2214) 0.68 MG/DL eGFR AMER. (test code 107 ML/MIN/1.73 = 05501) eGFR NON- AMER. (test 92 ML/MIN/1.73 code = 08977) CALC BUN/CREAT (test code = 25 RATIO 2234) SODIUM (test code = 2231) [...] ALT (test code = 2219) 20 U/L [id number] 00:00:00 Test Item Value Reference Range Interpretation Comments TSH, THIRD GENERATION (test code 2.260 UIU/ML = 2821) [id number] 00:00:00 Test Item Value Reference Range Interpretation Comments TSH, THIRD GENERATION (test code 2.260 UIU/ML = 2821) [id number] 00:00:00 Test Item Value Reference Range Interpretation Comments TSH, THIRD GENERATION (test code 2.260 UIU/ML = 2821) CBC W/AUTO [id number] 00:00:00 Test Item Value Reference Range Interpretation [...] 204 mg/dL 70-110 H Notifi ed Provider [id number]) Lab Interpretation (test Abnormal code = 16441-8) [facility] METABOLIC PANEL (NA, K, CL, CO2, GLUCOSE, BUN, CREATININE, CA)2019-12-30 10:50:00 Test Item Value Reference Range Interpretation Comments NA (test code = 137 mmol/L 135-145 9247603820) K (test code = 4.1 mmol/L 3.5-5 5130600861) CL (test code = 103 mmol/L 98-108 6685392130) CO2 TOTAL (test code = 29 mmol/L 23-31 0337387377) AGAP (test code = 2-16 1582509667) BUN (test code = 21 mg/dL 7-23 0042333885) GLUCOSE (test code = 97 mg/dL 70-110 2518027946) CREATININE (test code 0.67 mg/dL 0.5-1.04 = 4512633624) CALCIUM (test code = 9.0 mg/dL 8.6-10.6 0694476837) eGFR Calculation mL/min/1.73m2 (Non-) (test code = 8057815714) eGFR Calculation mL/min/1.73m2 () (test code = 4476824137) JOSHUA (test code = JOSHUA) Association of [...] or urine or abnormalities in imaging tests). [id number] 10:50:00 Test Item Value Reference Range Interpretation Comments MAGNESIUM (test code = 8137045191) 2.2 mg/dL 1.7-2.4 Lab Interpretation (test code = Normal 00560-2) [facility] WITH [id number] 10:26:00 Test Item Value Reference Range Interpretation Comments WBC (test code = See_Comment [Automated 0290-2) message] The sy stem which generated this result transmitted reference range : 4.30 - 11.10 10*3/?L. The reference range was not used to interpret this result as normal/abnormal . RBC (test code = See_Comment [Automated 607-8) message] The sy stem which generated this [...] RDW-SD (test code = 44.0 fL 39-49.9 26984-2) RDW-CV (test code = 12.6 % 12-15.5 788-0) PLT (test code = See_Comment [Automated 777-3) message] The sy stem which generated this result transmitted reference range : 166 - 358 10*3/ ?L. The reference r ramona was not used to interpret this result as normal/abnormal . MPV (test code = 9.7 fL 9.5-12.9 40686-7) NRBC/100 WBC (test See_Comment [Automat ed code = 7236630624) message] The system which generated this result transmitted reference range : 0.0 - 10.0 /100 WBCs. The refer ence range was not u sed to interpret th is result as normal/abnormal . NRBC x10^3 (test code <0.01 See_Comment [Auto mated = 6947705499) message] The s ystem which generated this result transmitted reference range : 10*3/?L. The reference range was not used to interpret this result as normal/abnormal . GRAN MAT (NEUT) % 57.7 % (test code = 770-8) IMM GRAN % (test code 0.20 % = 2671454729) LYMPH % (test code = 31.8 % 736-9) MONO % (test code = 8.1 % 5905-5) EOS % (test code = 1.9 % 713-8) BASO % (test code = 0.3 % 706-2) GRAN MAT x10^3(ANC) 5.12 10*3/uL 1.88-7.09 (test code = 9467441843) IMM GRAN x10^3 (test <0.03 0-0.06 code = 5458348017) LYMPH x10^3 (test code 2.82 10*3/uL 1.32-3.29 = 731-0) MONO x10^3 (test code 0.72 10*3/uL 0.33-0.92 = 742-7) EOS x10^3 (test code = 0.17 10*3/uL 0.03-0.39 711-2) BASO x10^3 (test code 0.03 10*3/uL 0.01-0.07 = 704-7) Lab Interpretation Abnormal (test code = 50022-0) [facility] GLUCOSE (AUTOMATED)2019-12-30 01:52:00 Test Item Value Reference Range Interpretation Comments POCT GLU (test code = 6466886951) 199 mg/dL 70-110 H Lab Interpretation (test code = Abnormal 08533-4) [facility] GLUCOSE (AUTOMATED)2019-12-29 23:34:00 Test Item Value Reference Range Interpretation Comments POCT GLU (test code = 8994236669) 120 mg/dL 70-110 H Lab Interpretation (test code = Abnormal 68239-1) [facility] GLUCOSE (AUTOMATED)2019-12-29 14:02:00 Test Item Value Reference Range Interpretation Comments POCT GLU (test code = 2934722462) 99 mg/dL 70-110 Lab Interpretation (test code = Normal 65937-2) [facility] Metabolic Panel (NA, K, CL, CO2, GLUCOSE, BUN, CREATININE, CA)2019-12-29 11:40:00 Test Item Value Reference Range Interpretation Comments NA (test code = 139 mmol/L 135-145 1642647254) K (test code = 4.2 mmol/L 3.5-5 Slight 2644752581) hemolysis CL (test code = 104 mmol/L 98-108 6154709268) CO2 TOTAL (test code 30 mmol/L 23-31 = 3864207861) AGAP (test code = 2-16 6683960521) BUN (test code = 18 mg/dL 7-23 Slight 5636340247) hemolysis GLUCOSE (test code = 116 mg/dL 70-110 H 3673992488) CREATININE (test code 0.61 mg/dL 0.5-1.04 = 8937043595) CALCIUM (test code = 8.9 mg/dL 8.6-10.6 5167915096) eGFR Calculation mL/min/1.73m2 (Non-) (test code = 6285773992) eGFR Calculation mL/min/1.73m2 () (test code = 3491794584) JOSHUA (test code = JOSHUA) Association of [...] tests). Lab Interpretation Abnormal (test code = 77851-3) [facility] HospitalMagnesium [id number] 11:40:00 Test Item Value Reference Range Interpretation Comments MAGNESIUM (test code = 9221254096) 2.2 mg/dL 1.7-2.4 Lab Interpretation (test code = Normal 77982-4) [facility] HospitalaPTT (for use with Heparin Drip)2019-12-29 11:21:00 Test Item Value Reference Range Interpretation Comments APTT Patient (test code See_Comment HH [Au tomated message] = 3173-2) The system [employer] generated this result transmitted ref erence range: 26 - 36 Seconds. The reference range was not used to int erpret this result as normal/abnormal . Lab Interpretation (test Abnormal code = 74295-5) [facility] GLU[facility]SE (AUTOMATED)2019-12-29 04:19:00 Test Item Value Reference Range Interpretation Comments POCT GLU (test code = 8524825373) 115 mg/dL 70-110 H Lab Interpretation (test code = Abnormal 97232-6) [facility] HospitalLipid Panel (Total Cholesterol, Triglycerides, HDL) - [id number] 03:03:00 Test Item Value Reference Range Interpretation Comments CHOL (test code = 164 mg/dL 120-200 5761827321) HDL (test code = 61 mg/dL >50 0687515320) HDLC RATIO (test code = See_Comment [Au tomated message] 3614668475) The system [employer] generated this result transmit shikha reference range : <=4.5. The refe rence range was not u sed to interpret th is result as normal/abnormal . TRIG (test code = 63 mg/dL 30-170 4296127034) LDL CHOL (test code = 90 mg/dL See_Comment [Auto mated message] 95060-3) The system [employer] generated this result transmit shikha reference range : <=160. The refe rence range was not u sed to interpret th is result as normal/abnormal . VLDL (test code = 13 mg/dL 5-60 3150208885) Lab Interpretation (test Normal code = 02443-0) [facility] (for use with Heparin Drip)2019-12-29 00:36:00 Test Item Value Reference Range Interpretation Comments APTT Patient (test code See_Comment H [Au tomated message] = 3173-2) The system [employer] generated this result transmitted ref erence range: 26 - 36 Seconds. The reference range was not used to int erpret this result as normal/abnormal . Lab Interpretation (test Abnormal code = 33808-6) [facility] HospitalTROPONIN [id number] 21:42:00 Test Item Value Reference Range Interpretation Comments TROPONIN I (test 0.081 ng/mL See_Comment H [Automated code = 4893176643) message] The system which generated this result [...] ? Lab Interpretation Abnormal (test code = 19464-3) [facility] HospitalProthrombin Time (PT) / [id number] 12:39:00 Test Item Value Reference Range Interpretation Comments PROTIME PATIENT (test See_Comment [Auto mated message] code = 5964-2) The system [employer] generated this result transmitted ref erence range: 10.1 - 1 2.6 Seconds. The re ference range was not u sed to interpret this result as normal/abnor mal. INR (test code = 6301-6) Nor mal INR <1.1; Warfarin Therap eutic range 2.0 to 3. 0 or 2.5 to 3.5, dep ending upon the indica tions. Lab Interpretation (test Normal code = 04412-8) [facility] HospitalaPTT2020-11-19 12:39:00 Test Item Value Reference Range Interpretation Comments APTT Patient (test code = See_Comment [ Automated message] 3173-2) The system [employer] h generated this result transmitted ref erence range: 26 - 36 Seconds. The re ference range was not u sed to interpret this result as normal/abnor mal. Lab Interpretation (test Normal code = 33796-0) [facility] HospitalTroponin [id number] 11:11:00 Test Item Value Reference Range Interpretation Comments TROPONIN I (test 0.148 ng/mL See_Comment H [Automated code = 3090739608) message] The system which generated this result [...] ? Lab Interpretation Abnormal (test code = 75453-5) [facility] HospitalGlycosylated Hemoglobin (A1C)2019-12-28 10:57:00 Test Item Value Reference Range Interpretation Comments HGB A1C (test code = 5.8 % 4-6 4548-4) JOSHUA (test code = JOSHUA) %A1C (NGSP) Interpretation (ADA)4.8-5.6 ? ? Normal or (Non-Diabetic Range)5.7-6.4 ? ? Increased Risk (Pre-Diabetic)>6.5 ?Diabetes Indicated Lab Interpretation Normal (test code = 69489-4) [facility] HospitalThyroid Stimulating Hormone (TSH)2019-12-28 10:22:00 Test Item Value Reference Range Interpretation Comments TSH (test code = See_Comment Biotin has been 0883751147) reported to cau se a negative bias, interpret resul ts relative to pat ieconrad's use of biotin. [Automated mess age] The system [employer] generated this result transmitted ref erence range: 0.45 - 4 .70 mIU/L. The refe rence range was not u sed to interpret this result as normal/abnor mal. Lab Interpretation (test Normal code = 32019-0) [facility] HospitalN-Terminal [id number] 10:22:00 Test Item Value Reference Range Interpretation Comments NT-proBNP (test code 636 pg/mL See_Comment H [Autom ated = 8755062876) message] The system which generated this result transmitted reference range : <=125. The reference range was not used to interpret this result as normal/abnormal . JOSHUA (test code = JOSHUA) Biotin has been reported to cause a negative bias, interpret results relative to patient's use of biotin. Lab Interpretation Abnormal (test code = 67319-5) [facility] HospitalCT CHEST PULMONARY [id number] 05:35:31 No acute pulmonary embolism through the [...] this study and agree with theabove report. [facility] HospitalXR CHEST 1 [id number] 03:07:42 No acute cardiopulmonary abnormality. Preliminary Report [...] reviewed this study and agree with theabove report.[facility] HospitalTROPONIN [id number] 02:26:00 Test Item Value Reference Range Interpretation Comments TROPONIN I (test 0.048 ng/mL See_Comment H [Automated code = 1107131448) message] The system which generated this result [...] ? Lab Interpretation Abnormal (test code = 11773-1) [facility] HospitalCOVID-19 (ID NOW RAPID TESTING)2019-12-28 02:22:00 Test Item Value Reference Range Interpretation Comments SARS-CoV-2 Rapid ID NOW Not Detected Not Detected (test code = 30389-5) JOSHUA (test code = JOSHUA) ID NOW COVID-19 Assay is an isothermal nucleic acid amplification test intended for the qualitative detection of nucleic acid from SARS-CoV-2 viral RNA in nasopharyngeal (ELECT[employer]NALYST) specimens. It is used under Emergency Use [...] indicated. Lab Interpretation Normal (test code = 04638-0) [facility] HospitalCOMP. METABOLIC PANEL (17114)2019-12-28 02:16:00 Test Item Value Reference Range Interpretation Comments NA (test code = 137 mmol/L 135-145 9455873181) K (test code = 3.8 mmol/L 3.5-5 1115973610) CL (test code = 101 mmol/L 98-108 7379536404) CO2 TOTAL (test code = 31 mmol/L 23-31 1697287921) AGAP (test code = 2-16 7476376707) BUN (test code = 18 mg/dL 7-23 3076118529) GLUCOSE (test code = 145 mg/dL 70-110 H 2507959375) CREATININE (test code = 0.55 mg/dL 0.5-1.04 8242747879) TOTAL BILI (test code = 0.4 mg/dL 0.1-1.1 8762323452) CALCIUM (test code = 8.8 mg/dL 8.6-10.6 2482567711) T PROTEIN (test code = 6.7 g/dL 6.3-8.2 8086895564) ALBUMIN (test code = 4.1 g/dL 3.5-5 7595937450) ALK PHOS (test code = 72 U/L 34-122 7275124888) ALTv (test code = 40 U/L 5-35 H 1742-6) AST(SGOT) (test code = 46 U/L 13-40 H 5024629614) eGFR Calculation mL/min/1.73m2 (Non-) (test code = 1479886282) eGFR Calculation mL/min/1.73m2 () (test code = 4417692597) JOSHUA (test code = JOSHUA) Association of [...] tests). Lab Interpretation Abnormal (test code = 26879-3) [facility] METABOLIC PANEL (NA, K, CL, CO2, GLUCOSE, BUN, CREATININE, CA)2019-12-28 02:16:00 Test Item Value Reference Range Interpretation Comments NA (test code = 137 mmol/L 135-145 9000692320) K (test code = 3.8 mmol/L 3.5-5 1284547748) CL (test code = 101 mmol/L 98-108 1810801759) CO2 TOTAL (test code = 31 mmol/L 23-31 2482735364) AGAP (test code = 2-16 5076892395) BUN (test code = 18 mg/dL 7-23 0492672460) GLUCOSE (test code = 145 mg/dL 70-110 H 6403451108) CREATININE (test code = 0.55 mg/dL 0.5-1.04 5960951706) CALCIUM (test code = 8.8 mg/dL 8.6-10.6 1244173923) eGFR Calculation mL/min/1.73m2 (Non-) (test code = 1492029396) eGFR Calculation mL/min/1.73m2 () (test code = 7573356978) JOSHUA (test code = JOSHUA) Association of [...] tests). Lab Interpretation Abnormal (test code = 14732-3) [facility] WITH [id number] 02:01:00 Test Item Value Reference Range Interpretation Comments WBC (test code = See_Comment [Automated 6097-2) message] The sy stem which generated this result transmitted reference range : 4.30 - 11.10 10*3/?L. The reference range was not used to interpret this result as normal/abnormal . RBC (test code = See_Comment [Automated 394-8) message] The sy stem which generated this [...] RDW-SD (test code = 42.5 fL 39-49.9 17996-9) RDW-CV (test code = 12.2 % 12-15.5 788-0) PLT (test code = See_Comment [Automated 287-3) message] The sy stem which generated this result transmitted reference range : 166 - 358 10*3/ ?L. The reference r ramona was not used to interpret this result as normal/abnormal . MPV (test code = 9.7 fL 9.5-12.9 40885-4) NRBC/100 WBC (test See_Comment [Automat ed code = 5459120668) message] The system which generated this result transmitted reference range : 0.0 - 10.0 /100 WBCs. The refer ence range was not u sed to interpret th is result as normal/abnormal . NRBC x10^3 (test code <0.01 See_Comment [Auto mated = 6003570039) message] The s ystem which generated this result transmitted reference range : 10*3/?L. The reference range was not used to interpret this result as normal/abnormal . GRAN MAT (NEUT) % 52.2 % (test code = 770-8) IMM GRAN % (test code 0.30 % = 3109562200) LYMPH % (test code = 36.0 % 736-9) MONO % (test code = 7.3 % 5905-5) EOS % (test code = 3.7 % 713-8) BASO % (test code = 0.5 % 706-2) GRAN MAT x10^3(ANC) 3.36 10*3/uL 1.88-7.09 (test code = 0052244363) IMM GRAN x10^3 (test <0.03 0-0.06 code = 0311796209) LYMPH x10^3 (test code 2.32 10*3/uL 1.32-3.29 = 731-0) MONO x10^3 (test code 0.47 10*3/uL 0.33-0.92 = 742-7) EOS x10^3 (test code = 0.24 10*3/uL 0.03-0.39 711-2) BASO x10^3 (test code 0.03 10*3/uL 0.01-0.07 = 704-7) Lab Interpretation Abnormal (test code = 22328-9) [facility] HospitalCOMPRE[facility]ENSIVE METABOLIC [id number] 00:00:00 Test Item Value Reference Range Interpretation Comments GLUCOSE (test code = 2217) 110 MG/DL BUN (test code = 2208) 17 MG/DL CREATININE (test code = 2214) 0.63 MG/DL eGFR AMER. (test code 111 ML/MIN/1.73 = 70157) eGFR NON- AMER. (test 95 ML/MIN/1.73 code = 51927) CALC BUN/CREAT (test code = 27 RATIO [...] code = 2219) 26 U/L COMPREHENSIVE METABOLIC [id number] 00:00:00 Test Item Value Reference Range Interpretation Comments GLUCOSE (test code = 2217) 110 MG/DL BUN (test code = 2208) 17 MG/DL CREATININE (test code = 2214) 0.63 MG/DL eGFR AMER. (test code 111 ML/MIN/1.73 = 60256) eGFR NON- AMER. (test 95 ML/MIN/1.73 code = 93519) CALC BUN/CREAT (test code = 27 RATIO [...] code = 2219) 26 U/L COMPREHENSIVE METABOLIC [id number] 00:00:00 Test Item Value Reference Range Interpretation Comments GLUCOSE (test code = 2217) 110 MG/DL BUN (test code = 2208) 17 MG/DL CREATININE (test code = 2214) 0.63 MG/DL eGFR AMER. (test code 111 ML/MIN/1.73 = 84213) eGFR NON- AMER. (test 95 ML/MIN/1.73 code = 30041) CALC BUN/CREAT (test code = 27 RATIO [...] code = 2219) 26 U/L COMPREHENSIVE METABOLIC [id number] 00:00:00 Test Item Value Reference Range Interpretation Comments GLUCOSE (test code = 2217) 110 MG/DL BUN (test code = 2208) 17 MG/DL CREATININE (test code = 2214) 0.63 MG/DL eGFR AMER. (test code 111 ML/MIN/1.73 = 39037) eGFR NON- AMER. (test 95 ML/MIN/1.73 code = 13021) CALC BUN/CREAT (test code = 27 RATIO [...] code = 2219) 26 U/L COMPREHENSIVE METABOLIC [id number] 00:00:00 Test Item Value Reference Range Interpretation Comments GLUCOSE (test code = 2217) 110 MG/DL BUN (test code = 2208) 17 MG/DL CREATININE (test code = 2214) 0.63 MG/DL eGFR AMER. (test code 111 ML/MIN/1.73 = 47056) eGFR NON- AMER. (test 95 ML/MIN/1.73 code = 75428) CALC BUN/CREAT (test code = 27 RATIO [...] code = 2219) 26 U/L COMPREHENSIVE METABOLIC [id number] 00:00:00 Test Item Value Reference Range Interpretation Comments GLUCOSE (test code = 2217) 110 MG/DL BUN (test code = 2208) 17 MG/DL CREATININE (test code = 2214) 0.63 MG/DL eGFR AMER. (test code 111 ML/MIN/1.73 = 74871) eGFR NON- AMER. (test 95 ML/MIN/1.73 code = 74111) CALC BUN/CREAT (test code = 27 RATIO [...] code = 2219) 26 U/L COMPREHENSIVE METABOLIC [id number] 00:00:00 Test Item Value Reference Range Interpretation Comments GLUCOSE (test code = 2217) 110 MG/DL BUN (test code = 2208) 17 MG/DL CREATININE (test code = 2214) 0.63 MG/DL eGFR AMER. (test code 111 ML/MIN/1.73 = 68714) eGFR NON- AMER. (test 95 ML/MIN/1.73 code = 35313) CALC BUN/CREAT (test code = 27 RATIO [...] code = 2219) 26 U/L COMPREHENSIVE METABOLIC [id number] 00:00:00 Test Item Value Reference Range Interpretation Comments GLUCOSE (test code = 2217) 110 MG/DL BUN (test code = 2208) 17 MG/DL CREATININE (test code = 2214) 0.63 MG/DL eGFR AMER. (test code 111 ML/MIN/1.73 = 81274) eGFR NON- AMER. (test 95 ML/MIN/1.73 code = 65680) CALC BUN/CREAT (test code = 27 RATIO [...] code = 2219) 26 U/L COMPREHENSIVE METABOLIC [id number] 00:00:00 Test Item Value Reference Range Interpretation Comments GLUCOSE (test code = 2217) 78 MG/DL BUN (test code = 2208) 13 MG/DL CREATININE (test code = 2214) 0.57 MG/DL eGFR AMER. (test code 114 ML/MIN/1.73 = 82486) eGFR NON- AMER. (test 99 ML/MIN/1.73 code = 46892) CALC BUN/CREAT (test code = 23 RATIO [...] code = 2219) 27 U/L COMPREHENSIVE METABOLIC [id number] 00:00:00 Test Item Value Reference Range Interpretation Comments GLUCOSE (test code = 2217) 78 MG/DL BUN (test code = 2208) 13 MG/DL CREATININE (test code = 2214) 0.57 MG/DL eGFR AMER. (test code 114 ML/MIN/1.73 = 26375) eGFR NON- AMER. (test 99 ML/MIN/1.73 code = 07427) CALC BUN/CREAT (test code = 23 RATIO [...] code = 2219) 27 U/L CBC W/AUTO [id number] 00:00:00 Test Item Value Reference Range Interpretation [...] code = 1015) 268 K/UL CBC W/AUTO [id number] 00:00:00 Test Item Value Reference Range Interpretation [...] code = 1015) 268 K/UL CBC W/AUTO [id number] 00:00:00 Test Item Value Reference Range Interpretation [...] code = 1015) 268 K/UL COMPREHENSIVE METABOLIC [id number] 00:00:00 Test Item Value Reference Range Interpretation Comments GLUCOSE (test code = 2217) 78 MG/DL BUN (test code = 2208) 13 MG/DL CREATININE (test code = 2214) 0.57 MG/DL eGFR AMER. (test code 114 ML/MIN/1.73 = 61989) eGFR NON- AMER. (test 99 ML/MIN/1.73 code = 07643) CALC BUN/CREAT (test code = 23 RATIO [...] code = 2219) 27 U/L COMPREHENSIVE METABOLIC [id number] 00:00:00 Test Item Value Reference Range Interpretation Comments GLUCOSE (test code = 2217) 78 MG/DL BUN (test code = 2208) 13 MG/DL CREATININE (test code = 2214) 0.57 MG/DL eGFR AMER. (test code 114 ML/MIN/1.73 = 42220) eGFR NON- AMER. (test 99 ML/MIN/1.73 code = 63533) CALC BUN/CREAT (test code = 23 RATIO [...] code = 2219) 27 U/L CBC W/AUTO [id number] 00:00:00 Test Item Value Reference Range Interpretation [...] code = 1015) 268 K/UL CBC W/AUTO [id number] 00:00:00 Test Item Value Reference Range Interpretation [...] code = 1015) 268 K/UL CBC W/AUTO [id number] 00:00:00 Test Item Value Reference Range Interpretation [...] code = 1015) 268 K/UL COMPREHENSIVE METABOLIC [id number] 00:00:00 Test Item Value Reference Range Interpretation Comments GLUCOSE (test code = 2217) 78 MG/DL BUN (test code = 2208) 13 MG/DL CREATININE (test code = 2214) 0.57 MG/DL eGFR AMER. (test code 114 ML/MIN/1.73 = 73879) eGFR NON- AMER. (test 99 ML/MIN/1.73 code = 66244) CALC BUN/CREAT (test code = 23 RATIO [...] code = 2219) 27 U/L COMPREHENSIVE METABOLIC [id number] 00:00:00 Test Item Value Reference Range Interpretation Comments GLUCOSE (test code = 2217) 78 MG/DL BUN (test code = 2208) 13 MG/DL CREATININE (test code = 2214) 0.57 MG/DL eGFR AMER. (test code 114 ML/MIN/1.73 = 63742) eGFR NON- AMER. (test 99 ML/MIN/1.73 code = 62752) CALC BUN/CREAT (test code = 23 RATIO [...] code = 2219) 27 U/L CBC W/AUTO [id number] 00:00:00 Test Item Value Reference Range Interpretation [...] code = 1015) 268 K/UL CBC W/AUTO [id number] 00:00:00 Test Item Value Reference Range Interpretation [...] code = 1015) 268 K/UL CBC W/AUTO [id number] 00:00:00 Test Item Value Reference Range Interpretation [...] code = 1015) 268 K/UL COMPREHENSIVE METABOLIC [id number] 00:00:00 Test Item Value Reference Range Interpretation Comments GLUCOSE (test code = 2217) 78 MG/DL BUN (test code = 2208) 13 MG/DL CREATININE (test code = 2214) 0.57 MG/DL eGFR AMER. (test code 114 ML/MIN/1.73 = 89894) eGFR NON- AMER. (test 99 ML/MIN/1.73 code = 41813) CALC BUN/CREAT (test code = 23 RATIO [...] code = 2219) 27 U/L COMPREHENSIVE METABOLIC [id number] 00:00:00 Test Item Value Reference Range Interpretation Comments GLUCOSE (test code = 2217) 78 MG/DL BUN (test code = 2208) 13 MG/DL CREATININE (test code = 2214) 0.57 MG/DL eGFR AMER. (test code 114 ML/MIN/1.73 = 99703) eGFR NON- AMER. (test 99 ML/MIN/1.73 code = 89369) CALC BUN/CREAT (test code = 23 RATIO [...] code = 2219) 27 U/L CBC W/AUTO [id number] 00:00:00 Test Item Value Reference Range Interpretation [...] code = 1015) 268 K/UL CBC W/AUTO [id number] 00:00:00 Test Item Value Reference Range Interpretation [...] code = 1015) 268 K/UL CBC W/AUTO [id number] 00:00:00 Test Item Value Reference Range Interpretation [...] code = 1015) 268 K/UL Chest 1 [id number] 22:39:59 No acute cardiopulmonary abnormality. Emphysematous changes. [...] reviewed this study and agree with the abovereport.[facility] [id number] 22:28:00 Test Item Value Reference Range Interpretation Comments TROPONIN I (test <0.012 See_Comment [Automated code = 3443010856) message] The system which generated this result [...] ? Lab Interpretation Normal (test code = 22784-6) [facility] [id number] 22:24:00 Test Item Value Reference Range Interpretation Comments NT-proBNP (test code 675 pg/mL See_Comment H [Autom ated = 6745548666) message] The system which generated this result transmitted reference range : <=125. The reference range was not used to interpret this result as normal/abnormal . JOSHUA (test code = JOSHUA) Biotin has been reported to cause a negative bias, interpret results relative to patient's use of biotin. Lab Interpretation Abnormal (test code = 59720-0) [facility] HospitalProthrombin Time (PT) / [id number] 22:20:00 Test Item Value Reference Range Interpretation [...] tions. Lab Interpretation (test Normal code = 44730-8) [facility] (NA, K, CL, CO2, GLUCOSE, BUN, CREATININE, CA)2019-07-27 22:17:00 Test Item Value Reference Range Interpretation Comments NA (test code = 138 mmol/L 135-145 8134060270) K (test code = 4.4 mmol/L 3.5-5 0594613859) CL (test code = 101 mmol/L 98-108 8122801476) CO2 TOTAL (test code = 28 mmol/L 23-31 2190658061) AGAP (test code = 2-16 8967066340) BUN (test code = 16 mg/dL 7-23 8725238391) GLUCOSE (test code = 88 mg/dL 70-110 4606902031) CREATININE (test code 0.55 mg/dL 0.5-1.04 = 0321993957) CALCIUM (test code = 10.1 mg/dL 8.6-10.6 5180126255) eGFR Calculation mL/min/1.73m2 (Non-) (test code = 3188682502) eGFR Calculation mL/min/1.73m2 () (test code = 6873645799) JOSHUA (test code = JOSHUA) Association of [...] or urine or abnormalities in imaging tests). [facility] HospitalHep[facility] Function Panel (ALB, T.PRO, BILI T, BU/BC, ALT, AST, ALK PHOS)2019-07-27 22:17:00 Test Item Value Reference Range Interpretation Comments TOTAL BILI (test code = 0216377666) 0.7 mg/dL 0.1-1.1 BILI UNCON (test code = 8367542894) 0.8 mg/dL 0.1-1.1 BILI CONJ (test code = 5388984674) 0.0 mg/dL 0-0.3 T PROTEIN (test code = 5081207974) 7.7 g/dL 6.3-8.2 ALBUMIN (test code = 1202688880) 4.8 g/dL 3.5-5 ALK PHOS (test code = 9073513218) 49 U/L 34-122 ALTv (test code = 1742-6) 35 U/L 5-35 AST(SGOT) (test code = 2811041957) 42 U/L 13-40 H Lab Interpretation (test code = Abnormal 85853-2) [facility] HospitalCOVID-[facility] (ID NOW RAPID TESTING)2019-07-27 22:16:00 Test Item Value Reference Range Interpretation Comments SARS-CoV-2 Rapid ID NOW Not Detected Not Detected (test code = 12469-6) JOSHUA (test code = JOSHUA) ID NOW COVID-19 Assay is an isothermal nucleic acid amplification test intended for the qualitative detection of nucleic acid from SARS-CoV-2 viral RNA in nasopharyngeal ([employer]) specimens. It is used under Emergency Use [...] indicated. Lab Interpretation Normal (test code = 50300-0) [facility] WITH [id number] 21:58:00 Test Item Value Reference Range Interpretation [...] RDW-SD (test code = 41.4 fL 39-49.9 46080-6) RDW-CV (test code = 12.2 % 12-15.5 788-0) PLT (test code = See_Comment [Automated 777-3) message] The sy stem which generated this result transmitted reference range : 166 - 358 10*3/ ?L. The reference r ramona was not used to interpret this result as normal/abnormal . MPV (test code = 9.7 fL 9.5-12.9 32850-6) NRBC/100 WBC (test See_Comment [Automat ed code = 8973702624) message] The system which generated this result transmitted reference range : 0.0 - 10.0 /100 WBCs. The refer ence range was not u sed to interpret th is result as normal/abnormal . NRBC x10^3 (test code <0.01 See_Comment [Auto mated = 2385616265) message] The s ystem which generated this result transmitted reference range : 10*3/?L. The reference range was not used to interpret this result as normal/abnormal . GRAN MAT (NEUT) % 72.2 % (test code = 770-8) IMM GRAN % (test code 0.40 % = 8526716406) LYMPH % (test code = 19.5 % 736-9) MONO % (test code = 5.2 % 5905-5) EOS % (test code = 2.1 % 713-8) BASO % (test code = 0.6 % 706-2) GRAN MAT x10^3(ANC) 7.15 10*3/uL 1.88-7.09 H (test code = 7046654926) IMM GRAN x10^3 (test 0.04 10*3/uL 0-0.06 code = 9823578022) LYMPH x10^3 (test code 1.93 10*3/uL 1.32-3.29 = 731-0) MONO x10^3 (test code 0.52 10*3/uL 0.33-0.92 = 742-7) EOS x10^3 (test code = 0.21 10*3/uL 0.03-0.39 711-2) BASO x10^3 (test code 0.06 10*3/uL 0.01-0.07 = 704-7) Lab Interpretation Abnormal (test code = 92471-3) [facility] HospitalCOMPRE[facility]ENS[facility] [id number] 00:00:00 Test Item Value Reference Range Interpretation Comments GLUCOSE (test code = 2217) 113 MG/DL BUN (test code = 2208) 8 MG/DL CREATININE (test code = 2214) 0.64 MG/DL eGFR AMER. (test code 110 ML/MIN/1.73 = 34451) eGFR NON- AMER. (test 95 ML/MIN/1.73 code = 97401) CALC BUN/CREAT (test code = 13 RATIO [...] code = 2219) 28 U/L COMPREHENSIVE METABOLIC [id number] 00:00:00 Test Item Value Reference Range Interpretation Comments GLUCOSE (test code = 2217) 113 MG/DL BUN (test code = 2208) 8 MG/DL CREATININE (test code = 2214) 0.64 MG/DL eGFR AMER. (test code 110 ML/MIN/1.73 = 52478) eGFR NON- AMER. (test 95 ML/MIN/1.73 code = 47649) CALC BUN/CREAT (test code = 13 RATIO [...] code = 2219) 28 U/L COMPREHENSIVE METABOLIC [id number] 00:00:00 Test Item Value Reference Range Interpretation Comments GLUCOSE (test code = 2217) 113 MG/DL BUN (test code = 2208) 8 MG/DL CREATININE (test code = 2214) 0.64 MG/DL eGFR AMER. (test code 110 ML/MIN/1.73 = 79136) eGFR NON- AMER. (test 95 ML/MIN/1.73 code = 83727) CALC BUN/CREAT (test code = 13 RATIO [...] code = 2219) 28 U/L COMPREHENSIVE METABOLIC [id number] 00:00:00 Test Item Value Reference Range Interpretation Comments GLUCOSE (test code = 2217) 113 MG/DL BUN (test code = 2208) 8 MG/DL CREATININE (test code = 2214) 0.64 MG/DL eGFR AMER. (test code 110 ML/MIN/1.73 = 03207) eGFR NON- AMER. (test 95 ML/MIN/1.73 code = 49824) CALC BUN/CREAT (test code = 13 RATIO [...] code = 2219) 28 U/L COMPREHENSIVE METABOLIC [id number] 00:00:00 Test Item Value Reference Range Interpretation Comments GLUCOSE (test code = 2217) 113 MG/DL BUN (test code = 2208) 8 MG/DL CREATININE (test code = 2214) 0.64 MG/DL eGFR AMER. (test code 110 ML/MIN/1.73 = 34766) eGFR NON- AMER. (test 95 ML/MIN/1.73 code = 50794) CALC BUN/CREAT (test code = 13 RATIO [...] ALKALINE PHOSPHATASE (test 56 U/L code = 2203) AST (test code = 2218) 27 U/L ALT (test code = 2219) 28 U/L COMPREHENSIVE METABOLIC [id number] 00:00:00 Test Item Value Reference Range Interpretation Comments GLUCOSE (test code = 2217) 113 MG/DL BUN (test code = 2208) 8 MG/DL CREATININE (test code = 2214) 0.64 MG/DL eGFR AMER. (test code 110 ML/MIN/1.73 = 62487) eGFR NON- AMER. (test 95 ML/MIN/1.73 code = 00986) CALC BUN/CREAT (test code = 13 RATIO [...] code = 2219) 28 U/L COMPREHENSIVE METABOLIC [id number] 00:00:00 Test Item Value Reference Range Interpretation Comments GLUCOSE (test code = 2217) 113 MG/DL BUN (test code = 2208) 8 MG/DL CREATININE (test code = 2214) 0.64 MG/DL eGFR AMER. (test code 110 ML/MIN/1.73 = 92197) eGFR NON- AMER. (test 95 ML/MIN/1.73 code = 96213) CALC BUN/CREAT (test code = 13 RATIO [...] code = 2219) 28 U/L COMPREHENSIVE METABOLIC [id number] 00:00:00 Test Item Value Reference Range Interpretation Comments GLUCOSE (test code = 2217) 113 MG/DL BUN (test code = 2208) 8 MG/DL CREATININE (test code = 2214) 0.64 MG/DL eGFR AMER. (test code 110 ML/MIN/1.73 = 05784) eGFR NON- AMER. (test 95 ML/MIN/1.73 code = 06337) CALC BUN/CREAT (test code = 13 RATIO [...] (test code = 2219) 28 U/L LIPID [id number] 00:00:00 Test Item Value Reference Range Interpretation Comments CHOLESTEROL (test code = 2210) 138 MG/DL TRIGLYCERIDES (test code = 2232) 158 MG/DL HDL CHOLESTEROL (test code = 2220) 43 MG/DL CALC LDL CHOL (test code = 2237) 63 MG/DL RISK RATIO LDL/HDL (test code = 1.47 RATIO 2238) LIPID [id number] 00:00:00 Test Item Value Reference Range Interpretation Comments CHOLESTEROL (test code = 2210) 138 MG/DL TRIGLYCERIDES (test code = 2232) 158 MG/DL HDL CHOLESTEROL (test code = 2220) 43 MG/DL CALC LDL CHOL (test code = 2237) 63 MG/DL RISK RATIO LDL/HDL (test code = 1.47 RATIO 2238) COMPREHENSIVE METABOLIC [id number] 00:00:00 Test Item Value Reference Range Interpretation Comments GLUCOSE (test code = 2217) 103 MG/DL BUN (test code = 2208) 13 MG/DL CREATININE (test code = 2214) 0.83 MG/DL eGFR AMER. (test code 88 ML/MIN/1.73 = 92159) eGFR NON- AMER. (test 76 ML/MIN/1.73 code = 80214) CALC BUN/CREAT (test code = 16 RATIO 2235) SODIUM (test code = 2231) 141 MEQ/L POTASSIUM (test code = 2228) 4.7 MEQ/L CHLORIDE (test code = 2215) 98 MEQ/L CARBON DIOXIDE (test code = 26 MEQ/L 2205) CALCIUM (test code = 220) 9.9 MG/DL PROTEIN, TOTAL (test code = [...] code = 2219) 20 U/L COMPREHENSIVE METABOLIC [id number] 00:00:00 Test Item Value Reference Range Interpretation Comments GLUCOSE (test code = 2217) 103 MG/DL BUN (test code = 2208) 13 MG/DL CREATININE (test code = 2214) 0.83 MG/DL eGFR AMER. (test code 88 ML/MIN/1.73 = 37613) eGFR NON- AMER. (test 76 ML/MIN/1.73 code = 97227) CALC BUN/CREAT (test code = 16 RATIO [...] (test code = 2219) 20 U/L HEMOGLOBIN [id number] 00:00:00 Test Item Value Reference Range Interpretation Comments HEMOGLOBIN A1c (test code = 90979) 5.9 % HEMOGLOBIN [id number] 00:00:00 Test Item Value Reference Range Interpretation Comments HEMOGLOBIN A1c (test code = 12511) 5.9 % HEMOGLOBIN [id number] 00:00:00 Test Item Value Reference Range Interpretation Comments HEMOGLOBIN A1c (test code = 41365) 5.9 % LIPID [id number] 00:00:00 Test Item Value Reference Range Interpretation Comments CHOLESTEROL (test code = 2210) 138 MG/DL TRIGLYCERIDES (test code = 2232) 158 MG/DL HDL CHOLESTEROL (test code = 2220) 43 MG/DL CALC LDL CHOL (test code = 2237) 63 MG/DL RISK RATIO LDL/HDL (test code = 1.47 RATIO 2238) LIPID [id number] 00:00:00 Test Item Value Reference Range Interpretation Comments CHOLESTEROL (test code = 2210) 138 MG/DL TRIGLYCERIDES (test code = 2232) 158 MG/DL HDL CHOLESTEROL (test code = 2220) 43 MG/DL CALC LDL CHOL (test code = 2237) 63 MG/DL RISK RATIO LDL/HDL (test code = 1.47 RATIO 2238) COMPREHENSIVE METABOLIC [id number] 00:00:00 Test Item Value Reference Range Interpretation Comments GLUCOSE (test code = 2217) 103 MG/DL BUN (test code = 2208) 13 MG/DL CREATININE (test code = 2214) 0.83 MG/DL eGFR AMER. (test code 88 ML/MIN/1.73 = 02557) eGFR NON- AMER. (test 76 ML/MIN/1.73 code = 59181) CALC BUN/CREAT (test code = 16 RATIO [...] code = 2219) 20 U/L COMPREHENSIVE METABOLIC [id number] 00:00:00 Test Item Value Reference Range Interpretation Comments GLUCOSE (test code = 2217) 103 MG/DL BUN (test code = 2208) 13 MG/DL CREATININE (test code = 2214) 0.83 MG/DL eGFR AMER. (test code 88 ML/MIN/1.73 = 18613) eGFR NON- AMER. (test 76 ML/MIN/1.73 code = 94799) CALC BUN/CREAT (test code = 16 RATIO [...] (test code = 2219) 20 U/L HEMOGLOBIN [id number] 00:00:00 Test Item Value Reference Range Interpretation Comments HEMOGLOBIN A1c (test code = 10696) 5.9 % HEMOGLOBIN [id number] 00:00:00 Test Item Value Reference Range Interpretation Comments HEMOGLOBIN A1c (test code = 20020) 5.9 % HEMOGLOBIN [id number] 00:00:00 Test Item Value Reference Range Interpretation Comments HEMOGLOBIN A1c (test code = 96680) 5.9 % LIPID [id number] 00:00:00 Test Item Value Reference Range Interpretation Comments CHOLESTEROL (test code = 2210) 138 MG/DL TRIGLYCERIDES (test code = 2232) 158 MG/DL HDL CHOLESTEROL (test code = 2220) 43 MG/DL CALC LDL CHOL (test code = 2237) 63 MG/DL RISK RATIO LDL/HDL (test code = 1.47 RATIO 2238) LIPID [id number] 00:00:00 Test Item Value Reference Range Interpretation Comments CHOLESTEROL (test code = 2210) 138 MG/DL TRIGLYCERIDES (test code = 2232) 158 MG/DL HDL CHOLESTEROL (test code = 2220) 43 MG/DL CALC LDL CHOL (test code = 2237) 63 MG/DL RISK RATIO LDL/HDL (test code = 1.47 RATIO 2238) COMPREHENSIVE METABOLIC [id number] 00:00:00 Test Item Value Reference Range Interpretation Comments GLUCOSE (test code = 2217) 103 MG/DL BUN (test code = 2208) 13 MG/DL CREATININE (test code = 2214) 0.83 MG/DL eGFR AMER. (test code 88 ML/MIN/1.73 = 06301) eGFR NON- AMER. (test 76 ML/MIN/1.73 code = 30495) CALC BUN/CREAT (test code = 16 RATIO [...] code = 2219) 20 U/L COMPREHENSIVE METABOLIC [id number] 00:00:00 Test Item Value Reference Range Interpretation Comments GLUCOSE (test code = 2217) 103 MG/DL BUN (test code = 2208) 13 MG/DL CREATININE (test code = 2214) 0.83 MG/DL eGFR AMER. (test code 88 ML/MIN/1.73 = 96850) eGFR NON- AMER. (test 76 ML/MIN/1.73 code = 33273) CALC BUN/CREAT (test code = 16 RATIO [...] (test code = 2219) 20 U/L HEMOGLOBIN [id number] 00:00:00 Test Item Value Reference Range Interpretation Comments HEMOGLOBIN A1c (test code = 18968) 5.9 % HEMOGLOBIN [id number] 00:00:00 Test Item Value Reference Range Interpretation Comments HEMOGLOBIN A1c (test code = 31994) 5.9 % HEMOGLOBIN [id number] 00:00:00 Test Item Value Reference Range Interpretation Comments HEMOGLOBIN A1c (test code = 35035) 5.9 % LIPID [id number] 00:00:00 Test Item Value Reference Range Interpretation Comments CHOLESTEROL (test code = 2210) 138 MG/DL TRIGLYCERIDES (test code = 2232) 158 MG/DL HDL CHOLESTEROL (test code = 2220) 43 MG/DL CALC LDL CHOL (test code = 2237) 63 MG/DL RISK RATIO LDL/HDL (test code = 1.47 RATIO 2238) LIPID [id number] 00:00:00 Test Item Value Reference Range Interpretation Comments CHOLESTEROL (test code = 2210) 138 MG/DL TRIGLYCERIDES (test code = 2232) 158 MG/DL HDL CHOLESTEROL (test code = 2220) 43 MG/DL CALC LDL CHOL (test code = 2237) 63 MG/DL RISK RATIO LDL/HDL (test code = 1.47 RATIO 2238) COMPREHENSIVE METABOLIC [id number] 00:00:00 Test Item Value Reference Range Interpretation Comments GLUCOSE (test code = 2217) 103 MG/DL BUN (test code = 2208) 13 MG/DL CREATININE (test code = 2214) 0.83 MG/DL eGFR AMER. (test code 88 ML/MIN/1.73 = 27407) eGFR NON- AMER. (test 76 ML/MIN/1.73 code = 29975) CALC BUN/CREAT (test code = 16 RATIO [...] code = 2219) 20 U/L COMPREHENSIVE METABOLIC [id number] 00:00:00 Test Item Value Reference Range Interpretation Comments GLUCOSE (test code = 2217) 103 MG/DL BUN (test code = 2208) 13 MG/DL CREATININE (test code = 2214) 0.83 MG/DL eGFR AMER. (test code 88 ML/MIN/1.73 = 93381) eGFR NON- AMER. (test 76 ML/MIN/1.73 code = 07571) CALC BUN/CREAT (test code = 16 RATIO [...] (test code = 2219) 20 U/L HEMOGLOBIN [id number] 00:00:00 Test Item Value Reference Range Interpretation Comments HEMOGLOBIN A1c (test code = 05922) 5.9 % HEMOGLOBIN [id number] 00:00:00 Test Item Value Reference Range Interpretation Comments HEMOGLOBIN A1c (test code = 73501) 5.9 % HEMOGLOBIN [id number] 00:00:00 Test Item Value Reference Range Interpretation Comments HEMOGLOBIN A1c (test code = 72281) 5.9 % HEMOGLOBIN [id number] 00:00:00 Test Item Value Reference Range Interpretation Comments HEMOGLOBIN A1c (test code = 44651) 6.2 % HEMOGLOBIN [id number] 00:00:00 Test Item Value Reference Range Interpretation Comments HEMOGLOBIN A1c (test code = 03844) 6.2 % HEMOGLOBIN [id number] 00:00:00 Test Item Value Reference Range Interpretation Comments HEMOGLOBIN A1c (test code = 71921) 6.2 % HEMOGLOBIN [id number] 00:00:00 Test Item Value Reference Range Interpretation Comments HEMOGLOBIN A1c (test code = 07072) 6.2 % HEMOGLOBIN [id number] 00:00:00 Test Item Value Reference Range Interpretation Comments HEMOGLOBIN A1c (test code = 93906) 6.2 % HEMOGLOBIN [id number] 00:00:00 Test Item Value Reference Range Interpretation Comments HEMOGLOBIN A1c (test code = 19393) 6.2 % HEMOGLOBIN [id number] 00:00:00 Test Item Value Reference Range Interpretation Comments HEMOGLOBIN A1c (test code = 86845) 6.2 % HEMOGLOBIN [id number] 00:00:00 Test Item Value Reference Range Interpretation Comments HEMOGLOBIN A1c (test code = 94302) 6.2 % HEMOGLOBIN [id number] 00:00:00 Test Item Value Reference Range Interpretation Comments HEMOGLOBIN A1c (test code = 36332) 6.2 % HEMOGLOBIN [id number] 00:00:00 Test Item Value Reference Range Interpretation Comments HEMOGLOBIN A1c (test code = 67196) 6.2 % HEMOGLOBIN [id number] 00:00:00 Test Item Value Reference Range Interpretation Comments HEMOGLOBIN A1c (test code = 34434) 6.2 % HEMOGLOBIN [id number] 00:00:00 Test Item Value Reference Range Interpretation Comments HEMOGLOBIN A1c (test code = 76252) 6.2 % [id number] 00:00:00 Test Item Value Reference Range Interpretation Comments POTASSIUM (test code = 2228) 4.9 MEQ/L [id number] 00:00:00 Test Item Value Reference Range Interpretation Comments POTASSIUM (test code = 2228) 4.9 MEQ/L [id number] 00:00:00 Test Item Value Reference Range Interpretation Comments POTASSIUM (test code = 2228) 4.9 MEQ/L [id number] 00:00:00 Test Item Value Reference Range Interpretation Comments POTASSIUM (test code = 2228) 4.9 MEQ/L [id number] 00:00:00 Test Item Value Reference Range Interpretation Comments POTASSIUM (test code = 2228) 4.9 MEQ/L [id number] 00:00:00 Test Item Value Reference Range Interpretation Comments POTASSIUM (test code = 2228) 4.9 MEQ/L [id number] 00:00:00 Test Item Value Reference Range Interpretation Comments POTASSIUM (test code = 2228) 4.9 MEQ/L [id number] 00:00:00 Test Item Value Reference Range Interpretation Comments POTASSIUM (test code = 2228) 4.9 MEQ/L HEMOGLOBIN [id number] 00:00:00 Test Item Value Reference Range Interpretation Comments HEMOGLOBIN A1c (test code = 93901) 6.8 % COMPREHENSIVE METABOLIC [id number] 00:00:00 Test Item Value Reference Range Interpretation Comments GLUCOSE (test code = 2217) 108 MG/DL BUN (test code = 2208) 13 MG/DL CREATININE (test code = 2214) 0.75 MG/DL eGFR AMER. (test code 99 ML/MIN/1.73 = 04490) eGFR NON- AMER. (test 85 ML/MIN/1.73 code = 93690) CALC BUN/CREAT (test code = 17 RATIO 2234) SODIUM (test code = 2231) [...] code = 2219) 22 U/L COMPREHENSIVE METABOLIC [id number] 00:00:00 Test Item Value Reference Range Interpretation Comments GLUCOSE (test code = 2217) 108 MG/DL BUN (test code = 2208) 13 MG/DL CREATININE (test code = 2214) 0.75 MG/DL eGFR AMER. (test code 99 ML/MIN/1.73 = 57312) eGFR NON- AMER. (test 85 ML/MIN/1.73 code = 27646) CALC BUN/CREAT (test code = 17 RATIO [...] RATIO 4) BILIRUBIN, TOTAL (test code = 0.5 MG/DL 2206) ALKALINE PHOSPHATASE (test 74 U/L code = 2204) AST (test code = 2218) 33 U/L ALT (test code = 2219) 22 U/L HEMOGLOBIN [id number] 00:00:00 Test Item Value Reference Range Interpretation Comments HEMOGLOBIN A1c (test code = 39604) 6.8 % HEMOGLOBIN [id number] 00:00:00 Test Item Value Reference Range Interpretation Comments HEMOGLOBIN A1c (test code = 31104) 6.8 % HEMOGLOBIN [id number] 00:00:00 Test Item Value Reference Range Interpretation Comments HEMOGLOBIN A1c (test code = 01668) 6.8 % COMPREHENSIVE METABOLIC [id number] 00:00:00 Test Item Value Reference Range Interpretation Comments GLUCOSE (test code = 2217) 108 MG/DL BUN (test code = 2208) 13 MG/DL CREATININE (test code = 2214) 0.75 MG/DL eGFR AMER. (test code 99 ML/MIN/1.73 = 13513) eGFR NON- AMER. (test 85 ML/MIN/1.73 code = 36160) CALC BUN/CREAT (test code = 17 RATIO [...] ALKALINE PHOSPHATASE (test 74 U/L code = 220) AST (test code = 2218) 33 U/L ALT (test code = 2219) 22 U/L COMPREHENSIVE METABOLIC [id number] 00:00:00 Test Item Value Reference Range Interpretation Comments GLUCOSE (test code = 2217) 108 MG/DL BUN (test code = 2208) 13 MG/DL CREATININE (test code = 2214) 0.75 MG/DL eGFR AMER. (test code 99 ML/MIN/1.73 = 00699) eGFR NON- AMER. (test 85 ML/MIN/1.73 code = 90895) CALC BUN/CREAT (test code = 17 RATIO [...] (test code = 2219) 22 U/L HEMOGLOBIN [id number] 00:00:00 Test Item Value Reference Range Interpretation Comments HEMOGLOBIN A1c (test code = 14956) 6.8 % HEMOGLOBIN [id number] 00:00:00 Test Item Value Reference Range Interpretation Comments HEMOGLOBIN A1c (test code = 60487) 6.8 % HEMOGLOBIN [id number] 00:00:00 Test Item Value Reference Range Interpretation Comments HEMOGLOBIN A1c (test code = 75216) 6.8 % COMPREHENSIVE METABOLIC [id number] 00:00:00 Test Item Value Reference Range Interpretation Comments GLUCOSE (test code = 2217) 108 MG/DL BUN (test code = 2208) 13 MG/DL CREATININE (test code = 2214) 0.75 MG/DL eGFR AMER. (test code 99 ML/MIN/1.73 = 06814) eGFR NON- AMER. (test 85 ML/MIN/1.73 code = 63851) CALC BUN/CREAT (test code = 17 RATIO [...] RATIO 4) BILIRUBIN, TOTAL (test code = 0.5 MG/DL 2206) ALKALINE PHOSPHATASE (test 74 U/L code = 2204) AST (test code = 2218) 33 U/L ALT (test code = 2219) 22 U/L COMPREHENSIVE METABOLIC [id number] 00:00:00 Test Item Value Reference Range Interpretation Comments GLUCOSE (test code = 2217) 108 MG/DL BUN (test code = 2208) 13 MG/DL CREATININE (test code = 2214) 0.75 MG/DL eGFR AMER. (test code 99 ML/MIN/1.73 = 62400) eGFR NON- AMER. (test 85 ML/MIN/1.73 code = 39577) CALC BUN/CREAT (test code = 17 RATIO [...] (test code = 2219) 22 U/L HEMOGLOBIN [id number] 00:00:00 Test Item Value Reference Range Interpretation Comments HEMOGLOBIN A1c (test code = 21174) 6.8 % HEMOGLOBIN [id number] 00:00:00 Test Item Value Reference Range Interpretation Comments HEMOGLOBIN A1c (test code = 35732) 6.8 % HEMOGLOBIN [id number] 00:00:00 Test Item Value Reference Range Interpretation Comments HEMOGLOBIN A1c (test code = 30505) 6.8 % COMPREHENSIVE METABOLIC [id number] 00:00:00 Test Item Value Reference Range Interpretation Comments GLUCOSE (test code = 2217) 108 MG/DL BUN (test code = 2208) 13 MG/DL CREATININE (test code = 2214) 0.75 MG/DL eGFR AMER. (test code 99 ML/MIN/1.73 = 63559) eGFR NON- AMER. (test 85 ML/MIN/1.73 code = 50786) CALC BUN/CREAT (test code = 17 RATIO [...] code = 2219) 22 U/L COMPREHENSIVE METABOLIC [id number] 00:00:00 Test Item Value Reference Range Interpretation Comments GLUCOSE (test code = 2217) 108 MG/DL BUN (test code = 2208) 13 MG/DL CREATININE (test code = 2214) 0.75 MG/DL eGFR AMER. (test code 99 ML/MIN/1.73 = 03175) eGFR NON- AMER. (test 85 ML/MIN/1.73 code = 31002) CALC BUN/CREAT (test code = 17 RATIO [...] (test code = 2219) 22 U/L HEMOGLOBIN [id number] 00:00:00 Test Item Value Reference Range Interpretation Comments HEMOGLOBIN A1c (test code = 79932) 6.8 % HEMOGLOBIN [id number] 00:00:00 Test Item Value Reference Range Interpretation Comments HEMOGLOBIN A1c (test code = 80656) 6.8 % HEMOGLOBIN A1c [ADDED]2018-01-05 00:00:00 Test Item Value Reference Range Interpretation Comments HEMOGLOBIN A1c (test code = 01842) 7.3 % LIPID PANEL [ADDED]2018-01-05 00:00:00 Test [...] eGFR AMER. (test code 93 ML/MIN/1.73 = 28739) eGFR NON- AMER. (test 80 ML/MIN/1.73 code = 20989) CALC BUN/CREAT (test code = 15 RATIO [...] eGFR AMER. (test code 93 ML/MIN/1.73 = 15604) eGFR NON- AMER. (test 80 ML/MIN/1.73 code = 50762) CALC BUN/CREAT (test code = 15 RATIO [...] Interpretation Comments HEMOGLOBIN A1c (test code = 96654) 7.3 % HEMOGLOBIN A1c [ADDED]2018-01-05 00:00:00 Test Item Value Reference Range Interpretation Comments HEMOGLOBIN A1c (test code = 24342) 7.3 % HEMOGLOBIN A1c [ADDED]2018-01-05 00:00:00 Test Item Value Reference Range Interpretation Comments HEMOGLOBIN A1c (test code = 86803) 7.3 % LIPID PANEL [ADDED]2018-01-05 00:00:00 Test [...] eGFR AMER. (test code 93 ML/MIN/1.73 = 98377) eGFR NON- AMER. (test 80 ML/MIN/1.73 code = 96843) CALC BUN/CREAT (test code = 15 RATIO [...] eGFR AMER. (test code 93 ML/MIN/1.73 = 90110) eGFR NON- AMER. (test 80 ML/MIN/1.73 code = 93511) CALC BUN/CREAT (test code = 15 RATIO [...] Interpretation Comments HEMOGLOBIN A1c (test code = 83149) 7.3 % HEMOGLOBIN A1c [ADDED]2018-01-05 00:00:00 Test Item Value Reference Range Interpretation Comments HEMOGLOBIN A1c (test code = 39724) 7.3 % HEMOGLOBIN A1c [ADDED]2018-01-05 00:00:00 Test Item Value Reference Range Interpretation Comments HEMOGLOBIN A1c (test code = 02536) 7.3 % LIPID PANEL [ADDED]2018-01-05 00:00:00 Test [...] eGFR AMER. (test code 93 ML/MIN/1.73 = 30172) eGFR NON- AMER. (test 80 ML/MIN/1.73 code = 49673) CALC BUN/CREAT (test code = 15 RATIO [...] eGFR AMER. (test code 93 ML/MIN/1.73 = 35286) eGFR NON- AMER. (test 80 ML/MIN/1.73 code = 15138) CALC BUN/CREAT (test code = 15 RATIO [...] Interpretation Comments HEMOGLOBIN A1c (test code = 25353) 7.3 % HEMOGLOBIN A1c [ADDED]2018-01-05 00:00:00 Test Item Value Reference Range Interpretation Comments HEMOGLOBIN A1c (test code = 15105) 7.3 % HEMOGLOBIN A1c [ADDED]2018-01-05 00:00:00 Test Item Value Reference Range Interpretation Comments HEMOGLOBIN A1c (test code = 91702) 7.3 % LIPID PANEL [ADDED]2018-01-05 00:00:00 Test [...] eGFR AMER. (test code 93 ML/MIN/1.73 = 77421) eGFR NON- AMER. (test 80 ML/MIN/1.73 code = 87442) CALC BUN/CREAT (test code = 15 RATIO [...] eGFR AMER. (test code 93 ML/MIN/1.73 = 29527) eGFR NON- AMER. (test 80 ML/MIN/1.73 code = 79488) CALC BUN/CREAT (test code = 15 RATIO [...] Interpretation Comments HEMOGLOBIN A1c (test code = 05840) 7.3 % HEMOGLOBIN A1c [ADDED]2018-01-05 00:00:00 Test Item Value Reference Range Interpretation Comments HEMOGLOBIN A1c (test code = 87843) 7.3 % COMPREHENSIVE METABOLIC [id number] 00:00:00 Test Item Value Reference Range Interpretation Comments GLUCOSE (test code = 2217) 109 MG/DL BUN (test code = 2208) 13 MG/DL CREATININE (test code = 2214) 0.66 MG/DL eGFR AMER. (test code 110 ML/MIN/1.73 = 90317) eGFR NON- AMER. (test 95 ML/MIN/1.73 code = 78074) CALC BUN/CREAT (test code = 20 RATIO [...] code = 2219) 27 U/L COMPREHENSIVE METABOLIC [id number] 00:00:00 Test Item Value Reference Range Interpretation Comments GLUCOSE (test code = 2217) 109 MG/DL BUN (test code = 2208) 13 MG/DL CREATININE (test code = 2214) 0.66 MG/DL eGFR AMER. (test code 110 ML/MIN/1.73 = 00719) eGFR NON- AMER. (test 95 ML/MIN/1.73 code = 74457) CALC BUN/CREAT (test code = 20 RATIO [...] code = 2219) 27 U/L COMPREHENSIVE METABOLIC [id number] 00:00:00 Test Item Value Reference Range Interpretation Comments GLUCOSE (test code = 2217) 109 MG/DL BUN (test code = 2208) 13 MG/DL CREATININE (test code = 2214) 0.66 MG/DL eGFR AMER. (test code 110 ML/MIN/1.73 = 67757) eGFR NON- AMER. (test 95 ML/MIN/1.73 code = 82742) CALC BUN/CREAT (test code = 20 RATIO [...] code = 2219) 27 U/L COMPREHENSIVE METABOLIC [id number] 00:00:00 Test Item Value Reference Range Interpretation Comments GLUCOSE (test code = 2217) 109 MG/DL BUN (test code = 2208) 13 MG/DL CREATININE (test code = 2214) 0.66 MG/DL eGFR AMER. (test code 110 ML/MIN/1.73 = 53867) eGFR NON- AMER. (test 95 ML/MIN/1.73 code = 64466) CALC BUN/CREAT (test code = 20 RATIO [...] code = 2219) 27 U/L COMPREHENSIVE METABOLIC [id number] 00:00:00 Test Item Value Reference Range Interpretation Comments GLUCOSE (test code = 2217) 109 MG/DL BUN (test code = 2208) 13 MG/DL CREATININE (test code = 2214) 0.66 MG/DL eGFR AMER. (test code 110 ML/MIN/1.73 = 68109) eGFR NON- AMER. (test 95 ML/MIN/1.73 code = 67522) CALC BUN/CREAT (test code = 20 RATIO [...] code = 2219) 27 U/L COMPREHENSIVE METABOLIC [id number] 00:00:00 Test Item Value Reference Range Interpretation Comments GLUCOSE (test code = 2217) 109 MG/DL BUN (test code = 2208) 13 MG/DL CREATININE (test code = 2214) 0.66 MG/DL eGFR AMER. (test code 110 ML/MIN/1.73 = 17071) eGFR NON- AMER. (test 95 ML/MIN/1.73 code = 72677) CALC BUN/CREAT (test code = 20 RATIO [...] code = 2219) 27 U/L COMPREHENSIVE METABOLIC [id number] 00:00:00 Test Item Value Reference Range Interpretation Comments GLUCOSE (test code = 2217) 109 MG/DL BUN (test code = 2208) 13 MG/DL CREATININE (test code = 2214) 0.66 MG/DL eGFR AMER. (test code 110 ML/MIN/1.73 = 65989) eGFR NON- AMER. (test 95 ML/MIN/1.73 code = 05167) CALC BUN/CREAT (test code = 20 RATIO [...] code = 2219) 27 U/L COMPREHENSIVE METABOLIC [id number] 00:00:00 Test Item Value Reference Range Interpretation Comments GLUCOSE (test code = 2217) 109 MG/DL BUN (test code = 2208) 13 MG/DL CREATININE (test code = 2214) 0.66 MG/DL eGFR AMER. (test code 110 ML/MIN/1.73 = 48509) eGFR NON- AMER. (test 95 ML/MIN/1.73 code = 34747) CALC BUN/CREAT (test code = 20 RATIO [...] CALC GLOBULIN (test code = 2.8 G/DL 224) CALC A/G RATIO (test code = 1.6 RATIO 2234) BILIRUBIN, TOTAL (test code = 0.6 MG/DL 2206) ALKALINE PHOSPHATASE (test 70 U/L code = 2204) AST (test code = 2218) 24 U/L ALT (test code = 2219) 27 U/L
--- NOTE | 2022-08-03 23:47 | EDPHYS ---
Physician Documentation [facility] Name: Dalia Reyes Age: 66 yrs Sex: Female : 1955 Arrival Date: 08/03/2022 Time: 22:54 Bed 2 Private MD: FERNANDEZ Physician Iván Mendez HPI: 08/03 23:40 This 66 yrs old Female presents to ER via EMS with complaints of copd italo exacerbation. 23:40 The patient has shortness of breath at rest, with light activity. Onset: The italo symptoms/episode began/occurred 3 day(s) ago. Duration: The symptoms are continuous, and are steadily getting worse. The patient's shortness of breath is aggravated by coughing, supine position, walking, is alleviated by nebulizer treatment, rest, sitting up, application of supplemental oxygen. The patient or guardian reports cough, difficulty breathing. Modifying factors: The symptoms are alleviated by changing position, remaining still, the symptoms are aggravated by activity, hot environment, lying flat, talking. Severity of symptoms: At their worst the symptoms were moderate in the emergency department the symptoms are unchanged. The patient has experienced similar episodes in the past, multiple times. Historical: - Allergies: 23:05 Benadryl; jb4 23:05 Lorazepam; jb4 23:05 Valium; jb4 - PMHx: 23:05 Chronic obstructive lung disease; diabetes mellitus; Emphysema; Hypercholesterolemia; jb4 Hypertensive disorder; - PSHx: 23:05 section; Heart Stents; jb4 - Immunization history:: Adult Immunizations up to date. - Family history:: not pertinent. - Social history:: Smoking status: Patient denies any tobacco usage or history of. ROS: 23:40 Constitutional: Negative for fever, chills, and weight loss, Eyes: Negative for injury, italo pain, redness, and discharge, ENT: Negative for injury, pain, and discharge, Neck: Negative for injury, pain, and swelling, Cardiovascular: Negative for chest pain, palpitations, and edema, Abdomen/GI: Negative for abdominal pain, nausea, vomiting, diarrhea, and constipation, Back: Negative for injury and pain, : Negative for injury, bleeding, discharge, and swelling, MS/Extremity: Negative for injury and deformity, Skin: Negative for injury, rash, and discoloration, Neuro: Negative for headache, weakness, numbness, tingling, and seizure, Psych: Negative for depression, anxiety, suicide ideation, homicidal ideation, and hallucinations, Allergy/Immunology: Negative for hives, rash, and allergies, Endocrine: Negative for neck swelling, polydipsia, polyuria, polyphagia, and marked weight changes, Hematologic/Lymphatic: Negative for swollen nodes, abnormal bleeding, and unusual bruising. 23:40 Respiratory: Positive for cough, dyspnea on exertion, shortness of breath, wheezing, expiratory. Exam: 23:40 Constitutional: This is a well developed, well nourished patient who is awake, alert, italo and in no acute distress. Head/Face: Normocephalic, atraumatic. Eyes: Pupils equal round and reactive to light, extra-ocular motions intact. Lids and lashes normal. Conjunctiva and sclera are non-icteric and not injected. Cornea within normal limits. Periorbital areas with no swelling, redness, or edema. ENT: Nares patent. No nasal discharge, no septal abnormalities noted. Tympanic membranes are normal and external auditory canals are clear. Oropharynx with no redness, swelling, or masses, exudates, or evidence of obstruction, uvula midline. Mucous membranes moist. Neck: Trachea midline, no thyromegaly or masses palpated, and no cervical lymphadenopathy. Supple, full range of motion without nuchal rigidity, or vertebral point tenderness. No Meningismus. Chest/axilla: Normal chest wall appearance and motion. Nontender with no deformity. No lesions are appreciated. Cardiovascular: Regular rate and rhythm with a normal S1 and S2. No gallops, murmurs, or rubs. Normal PMI, no JVD. No pulse deficits. Abdomen/GI: Soft, non-tender, with normal bowel sounds. No distension or tympany. No guarding or rebound. No evidence of tenderness throughout. Back: No spinal tenderness. No costovertebral tenderness. Full range of motion. Female : Normal external genitalia. Skin: Warm, dry with normal turgor. Normal color with no rashes, no lesions, and no evidence of cellulitis. MS/ Extremity: Pulses equal, no cyanosis. Neurovascular intact. Full, normal range of motion. Neuro: Awake and alert, GCS 15, oriented to person, place, time, and situation. Cranial nerves II-XII grossly intact. Motor strength 5/5 in all extremities. Sensory grossly intact. Cerebellar exam normal. Normal gait. Psych: Awake, alert, with orientation to person, place and time. Behavior, mood, and affect are within normal limits. 23:40 ECG was reviewed by the Attending Physician. 23:40 Respiratory: the patient does not display signs of respiratory distress, Respirations: labored breathing, is not present, Breath sounds: decreased breath sounds, that are moderate, are located in both bases, are heard in the left posterior lower lobe, right posterior middle lobe and right posterior lower lobe, Respiratory rate: 22 Vital Signs: 23:03 BP 125 / 68; Pulse 97; Resp 20; Temp 98.2(O); Pulse Ox 97% on 3 lpm NC; jb4 08/04 01:01 BP 131 / 67; Pulse 107; Resp 20; Pulse Ox 99% on R/A; jb4 MDM: 08/03 23:05 Patient medically screened. [facility] 23:43 Differential diagnosis: Anemia Anxiety Reaction Bronchitis CHF exacerbation, Chronic italo Obstructive Pulmonary Disease obstructed airway, bronchitis, flu, URI. Antibiotic administration: Levaquin given. Immunization status: Pneumococcal vaccine: within last 5 years. Influenza vaccine: Data reviewed: vital signs, nurses notes, EMS record, lab test result(s), EKG, radiologic studies, plain films. Consideration of Admission/Observation Patient was admitted/placed on observation. Escalation of care including admission/observation considered. I considered the following discharge prescriptions or medication management in the emergency department Medications were administered in the Emergency Department. See MAR. Test considered but Not performed: CT: no ct chest. Care significantly affected by the following chronic conditions: Diabetes, Chronic Obstructive Pulmonary Disease. Care significantly affected by the following Social Determinants of Health: Poor access to transportation. Counseling: I had a detailed discussion with the patient and/or guardian regarding: the historical points, exam findings, and any diagnostic results supporting the discharge/admit diagnosis, lab results, radiology results, the need for further work-up and treatment in the hospital. 08/03 23:05 Order name: Basic Metabolic Panel; Complete Time: 01:16 [facility] 08/03 23:05 Order name: CBC with Diff [facility] 08/03 23:05 Order name: LFT's; Complete Time: 01:16 [facility] 08/03 23:05 Order name: Magnesium; Complete Time: 01:16 [facility] 08/03 23:05 Order name: Troponin HS; Complete Time: 01:16 [facility] 08/04 00:49 Order name: Manual Differential EDMS 08/03 23:05 Order name: XRAY Chest (1 view) [facility] 08/03 23:05 Order name: EKG; Complete Time: 23:06 [facility] 08/03 23:05 Order name: Cardiac monitoring; Complete Time: 23:57 [facility] 08/03 23:05 Order name: EKG - Nurse/Tech; Complete Time: 23:57 [facility] 08/03 23:05 Order name: IV Saline Lock; Complete Time: 23:57 [facility] 08/03 23:05 Order name: Labs collected and sent; Complete Time: 23:57 [facility] 08/03 23:05 Order name: O2 Per Protocol; Complete Time: :57 [facility] 08/03 23:05 Order name: O2 Sat Monitoring; Complete Time: :57 [facility] EC:40 Rate is 91 beats/min. Rhythm is regular. QRS [place] is Normal. IN interval is normal. QRS italo interval is normal. QT interval is normal. No Q waves. T waves are Normal. No ST changes noted. Clinical impression: NSR w/ Non-specific ST/T Changes and No evidence of ischemia. Interpreted by me. Reviewed by me. Administered Medications: 08/04 00:06 Not Given (Other Intervention Used): Decadron - Dexamethasone IVP 10 mg IVP once jb4 00:06 Not Given (Other Intervention Used): Levalbuterol Inhalation 3.75 mg Inhalation once jb4 00:06 Not Given (Other Intervention Used): Ipratropium Inhalation Aerosol 0.5 mg Inhalation jb4 once 00:27 Drug: levofloxacin IVPB 500 mg Volume: 100 ml; Route: IVPB; Infused Over: 60 mins; jb4 Site: left antecubital; 00:28 Not Given (Other Intervention Used): NS 0.9% IV 1000 ml IV at 125 ml/hr continuous jb4 00:28 Drug: Famotidine IVP 20 mg Route: IVP; Site: left antecubital; jb4 Disposition Summary: 08/03/22 23:46 Hospitalization Ordered Hospitalization Status: Inpatient Admission italo Provider: Rogelio Goel cha Location: Telemetry/MedSurg (Inpatient) italo Condition: Fair italo Problem: new italo Symptoms: have improved italo Bed/Room Type: Standard italo Room Assignment: 214(08/04/22 00:44) cg Diagnosis - COPD/ Chronic obstructive pulmonary disease with (acute) exacerbation italo - Dyspnea italo - Type 1 diabetes mellitus with hyperglycemia italo - Abnormal levels of other serum enzymes - elevated troponin italo Forms: - Medication Reconciliation Form italo - SBAR form italo Signatures: Dispatcher [employer] EDIván Macedo MD MD cha Garcia, Cindy, RN RN Nasir Duffy RN RN jb4 Corrections: (The following items were deleted from the chart) 00:00 08/03 23:06 PROBNP+C.LAB.BRZ ordered. EDMS EDMS 08/04 00:00 08/03 23:06 PROTIME (+INR)+COAG.LAB.BRZ ordered. EDDE EDMS 08/04 00:00 08/03 23:06 Urinalysis+U.LAB.BRZ ordered. EDMS EDMS 08/04 00:21 00:16 Blood Culture ordered. EDDE EDMS 00:44 08/03 23:46 italo cg
--- NOTE | 2022-08-03 23:47 | ER ---
Nurse's Notes [facility] Name: Dalia Reyes Age: 66 yrs Sex: Female : 1955 Arrival Date: 08/03/2022 Time: 22:54 Bed 2 Private MD: Diagnosis: COPD/ Chronic obstructive pulmonary disease with (acute) exacerbation;Dyspnea;Type 1 diabetes mellitus with hyperglycemia;Abnormal levels of other serum enzymes-elevated troponin Presentation: 08/03 23:03 Chief complaint: EMS states: Pt was discharged from here, got home and experienced a jb4 worsening of her COPD exacerbation. Coronavirus screen: At this time, the client does not indicate any symptoms associated with coronavirus-19. Ebola Screen: No symptoms or risks identified at this time. Initial Sepsis Screen: Does the patient meet any 2 criteria? HR > 90 bpm. Yes Does the patient have a suspected source of infection? No. Patient's initial sepsis screen is negative. Risk Assessment: Do you want to hurt yourself or someone else? Patient reports no desire to harm self or others. Onset of symptoms was August 03, 2022. Transition of care: patient was not received from another setting of care. 23:03 Method Of Arrival: EMS: [facility] jb4 23:03 Acuity: CONSTANTINO 3 jb4 Historical: - Allergies: 23:05 Benadryl; jb4 23:05 Lorazepam; jb4 23:05 Valium; jb4 - PMHx: 23:05 Chronic obstructive lung disease; diabetes mellitus; Emphysema; Hypercholesterolemia; jb4 Hypertensive disorder; - PSHx: 23:05 section; Heart Stents; jb4 - Immunization history:: Adult Immunizations up to date. - Family history:: not pertinent. - Social history:: Smoking status: Patient denies any tobacco usage or history of. Screenin/27 01:04 [facility] ED Fall Risk Assessment (Adult) History of falling in the last 3 months, jb4 including since admission No falls in past 3 months (0 pts) Confusion or Disorientation No (0 pts) Score/Fall Risk Level 0 - 2 = Low Risk Oriented to surroundings, Maintained a safe environment. Abuse screen: Denies threats or abuse. Nutritional screening: No deficits noted. Tuberculosis screening: No symptoms or risk factors identified. Assessment: 08/03 23:10 General: Appears in no apparent distress. comfortable, Behavior is calm, cooperative, jb4 appropriate for age. Pain: Denies pain. Neuro: Level of Consciousness is awake, alert, obeys commands, Oriented to person, place, time, situation. Cardiovascular: Patient's skin is warm and dry. Respiratory: Airway is patent Respiratory effort is even, unlabored, Respiratory pattern is regular, symmetrical. GI: No signs and/or symptoms were reported involving the gastrointestinal system. : No signs and/or symptoms were reported regarding the genitourinary system. EENT: No signs and/or symptoms were reported regarding the EENT system. Derm: Skin is intact, Skin is pink, warm \T\ dry. Musculoskeletal: Circulation, motion, and sensation intact. Range of motion: intact in all extremities. 08/04 00:00 Reassessment: Patient appears in no apparent distress at this time. Patient and/or jb4 family updated on plan of care and expected duration. Pain level reassessed. Patient is alert, oriented x 3, equal unlabored respirations, skin warm/dry/pink. Pt denies needing any breathing treatments at this time. 01:01 Reassessment: Patient appears in no apparent distress at this time. Patient and/or jb4 family updated on plan of care and expected duration. Pain level reassessed. Patient is alert, oriented x 3, equal unlabored respirations, skin warm/dry/pink. Vital Signs: 08/03 23:03 BP 125 / 68; Pulse 97; Resp 20; Temp 98.2(O); Pulse Ox 97% on 3 lpm NC; jb4 08/04 01:01 BP 131 / 67; Pulse 107; Resp 20; Pulse Ox 99% on R/A; jb4 ED Course: 08/03 22:56 Patient arrived in ED. sb4 23:04 Iván Mendez MD is Attending Physician. italo 23:05 Triage completed. jb4 23:05 Arm band placed on right wrist. jb4 23:45 Rogelio Goel MD is Hospitalizing Provider. italo 23:49 Basic Metabolic Panel Sent. kl 23:49 CBC with Diff Sent. kl 23:49 LFT's Sent. kl 23:49 Magnesium Sent. kl 23:49 Troponin HS Sent. kl 23:50 Inserted saline lock: 22 gauge in left antecubital area, using aseptic technique. kl ,using aseptic technique. diffusic Blood collected. 08/04 00:03 XRAY Chest (1 view) In Process Unspecified. EDID 00: Nasir Peres, RN is Primary Nurse. jb4 01:04 Patient has correct armband on for positive identification. Bed in low position. Call jb4 light in reach. Side rails up X 1. Client placed on continuous cardiac and pulse oximetry monitoring. NIBP monitoring applied. vehicle monitor technician on. 01:04 No provider procedures requiring assistance completed. Patient admitted, IV remains in jb4 place. Administered Medications: 00:06 Not Given (Other Intervention Used): Decadron - Dexamethasone IVP 10 mg IVP once jb4 00:06 Not Given (Other Intervention Used): Levalbuterol Inhalation 3.75 mg Inhalation once jb4 00:06 Not Given (Other Intervention Used): Ipratropium Inhalation Aerosol 0.5 mg Inhalation jb4 once 00:27 Drug: levofloxacin IVPB 500 mg Volume: 100 ml; Route: IVPB; Infused Over: 60 mins; jb4 Site: left antecubital; 00:28 Not Given (Other Intervention Used): NS 0.9% IV 1000 ml IV at 125 ml/hr continuous jb4 00:28 Drug: Famotidine IVP 20 mg Route: IVP; Site: left antecubital; jb4 Outcome: 08/03 23:46 Decision to Hospitalize by Provider. [facility] 08/04 01:24 Admitted to Med/surg accompanied by tech, via wheelchair, room 214, with oxygen, with jb4 chart, Report called to SIDDHARTH Khan Condition: stable Discharge instructions given to patient, Instructed on discharge instructions, follow up and referral plans. Demonstrated understanding of instructions, follow-up care. 01:28 Patient left the ED. jb4 Signatures: Dispatcher [employer] Mitali Shultz RN RN kl Anderson, Corey, MD MD cha Bryson, James, RN RN jb4 Sumi Stokes PA-C PAClaritza sb4 Corrections: (The following items were deleted from the chart) 00:00 08/03 23:49 PROBNP+C.LAB.BRZ drawn and sent. [facility] 08/04 00:00 08/03 23:49 PROTIME (+INR)+COAG.LAB.BRZ drawn and sent. [facility] 08/04 00:00 08/03 23:52 Urinalysis+U.LAB.MILEY drawn and sent. [facility]
[2022-08-04] MEDS ORDERED: Levofloxacin500mg IV 500 MG/100 ML BAG IV ONE (00:19)
[2022-08-04] MEDS ORDERED: FAMOTIDINE 20 MG/2 ML VIAL IV ONE (00:19)
[2022-08-04 00:26] LABS: Absolute Lymphocytes (CBC) 0.6 K/uL (0.7-4.9); Hematocrit 41.3 % (36.0-45.0); Lymphocytes % 5.8 % (15.3-44.8); MCV 93.6 fL (80-100); RBC Red Blood Cell Count 4.41 M/uL (3.86-4.86)
--- NOTE | 2022-08-04 00:26 | P.HP ---
Certification for Inpatient Patient admitted to: Inpatient With expected LOS: <2 Midnights Patient will require the following post-hospital care: None Practitioner: I am a practitioner with admitting privileges, knowledge of patient current condition, hospital course, and medical plan of care. Services: Services provided to patient in accordance with Admission requirements found in Title 42 Section 412.3 of the Code of Federal Regulations Patient History Date of Service: 08/04/22 Reason for admission: COPD Exacerbation History of Present Illness: Ms. Reyes is a 66 year old female with past medical history of COPD on home O2 (2.5LNC), tobacco abuse, IDDM2, HTN, and HLD who presented to the emergency department via EMS with complaints of shortness of breath, wheezing, and hypoxia. Patient was in the emergency department just a few hours prior with COPD exacerbation after being found on the ground mottled and very tachycardic but refused admission. Her wheezing and shortness of breath have worsened since, states she could not locate her home nebs or home oxygen and called EMS. Chest xray negative. Troponin is elevated at 92. EKG without STEMI criteria. Lactate within normal limits. COVID flu negative. Given levaquin in the ED. Patient is now agreeable to admission. Allergies diazepam [From Valium] Adverse Reaction (Verified 08/04/22 01:38) "makes me stupid, too strong for me" diphenhydramine [From Benadryl] Adverse Reaction (Verified 08/04/22 01:38) "turns my nerve inside out" lorazepam Adverse Reaction (Verified 08/04/22 01:38) stomach issue Home medications list reviewed: Yes Home Medications: Albuterol Sulfate [Proventil Hfa] 1 puff IH BID PRN 04/20/21 Aspirin [Aspirin EC] 81 mg PO DAILY 04/20/21 Atorvastatin Calcium [Lipitor] 80 mg PO DAILY 04/20/21 Buspirone HCl 15 mg PO BID 04/20/21 Clopidogrel Bisulfate [Plavix*] 75 mg PO DAILY 04/20/21 Fluticasone/Umeclidin/Vilanter [Trelegy Ellipta 100-62.5-25] 1 each IH DAILY 04/20/21 Guaifenesin/Dextromethorphan [Mucus Relief Dm Cough Tablet] 1 each PO BID 04/20/21 Ipratropium/Albuterol Sulfate [Iprat-Albut 0.5-3(2.5) mg/3 ml] 3 ml IH Q6HP PRN 04/20/21 Lamotrigine [Lamictal] 100 mg PO BID 04/20/21 Linagliptin [Tradjenta] 5 mg PO DAILY 04/20/21 Metoprolol Tartrate 25 mg PO BID 04/20/21 Roflumilast [Daliresp] 500 mcg PO DAILY 04/20/21 Trazodone HCl 100 mg PO DAILY 04/20/21 Fluoxetine HCl [Prozac] 20 mg PO DAILY 11/09/21 predniSONE [Deltasone*] 10 mg PO DAILY 60 Days #60 tab 11/10/21 Iron 18 mg PO DAILY 04/18/22 Multivitamin [Multiple Vitamins] 1 each PO DAILY 04/18/22 predniSONE [Deltasone*] 10 mg PO DAILY #80 tab 04/19/22 - Past Medical/Surgical History Diabetic: Yes -: COPD -: HTN -: Diabetes mellitus type 2 -: CAD -: Depression -: bipolar -: anxiety -: neuropathy -: -: Stents Psychosocial/ Personal History: Patient is retired, lives with her daughter - Family History Father History Unknown: Yes Notes: Patient is adopted - Social History Smoking Status: Current every day smoker Alcohol use: No CD- Drugs: No Caffeine use: Yes Place of Residence: Home Review of Systems Respiratory: Shortness of Breath Physical Examination - Vital Signs Temperature: 98.2 F Blood Pressure: 125/68 Pulse: 97 Respirations: 20 Pulse Ox (%): 97 (3L NC) - Physical Exam General: Alert, In no apparent distress HEENT: Atraumatic, EOMI, Sclerae nonicteric Neck: Supple, 2+ carotid pulse no bruit Respiratory: Expiratory wheezes Cardiovascular: Regular rate/rhythm, Normal S1 S2 Gastrointestinal: Normal bowel sounds, No tenderness Musculoskeletal: No tenderness Integumentary: No rashes Neurological: Normal speech, Normal affect - Studies Laboratory Data (last 24 hrs) 08/03/22 23:05: PT Cancelled, INR Cancelled Assessment and Plan - Problems (Diagnosis) (1) COPD exacerbation Status: Acute (2) Anxiety Current Visit: Yes Status: Chronic (3) Coronary artery disease Current Visit: Yes Status: Chronic Qualifiers: Coronary Disease-Associated Artery/Lesion type: [place] artery [place] vs. transplanted heart: [place] heart Associated angina: without angina Qualified Code(s): I25.10 - Atherosclerotic heart disease of [place] coronary artery without angina pectoris (4) HTN (hypertension) Current Visit: Yes Status: Chronic Qualifiers: Hypertension type: primary hypertension Qualified Code(s): I10 - Essential (primary) hypertension (5) T2DM (type 2 diabetes mellitus) Current Visit: Yes Status: Chronic Qualifiers: Diabetes mellitus fpc insulin use: without exterminator use Diabetes mellitus complication status: with hyperglycemia Qualified Code(s): E11.65 - Type 2 diabetes mellitus with hyperglycemia (6) Tobacco abuse Current Visit: Yes Status: Chronic (7) Elevated troponin Current Visit: Yes Status: Acute - Plan Acute COPD exacerbation Scheduled solumedrol and nebs Titrate and wean oxygen as tolerated. Currently requiring 4L, on 2.5 at home. Pulmonology consult. Incentive spirometry Type 2 Diabetes with hyperglycemia, Insulin Dependent Sliding scale insulin, moderate Patient has received a lot of steroids throughout the day confirm home insulin dose and resume Check lipid panel and A1c Elevated Troponin Initial is 92. Trend. She denies chest pain. Monitor on telemetry Likely noncardiac in nature, was at home without her O2 for a few hours Daily aspirin and atorvastatin Tobacco Abuse Nicotine patch ordered, patient counseled on smoking cessation Hypertension / Hyperlipidemia / CAD Reconcile and continue home medications VTE Prophylaxis: Lovenox Code: DNR (however, we do not have the paperwork at this time) Discharge Plan: Home Plan to discharge in: 48 Hours - Advance Directives Does patient have a Living Will: No Does patient have a Durable POA for Healthcare: No - Code Status/Comfort Care Code Status Assessed: Yes Code Status: Do Not Attempt Resuscitat Physician Review: Patient Assessed, Agree with Above Assessment and Plan Critical Care: No Time Spent Managing Pts Care (In Minutes): 50
[2022-08-04] MEDS ORDERED: ONDANSETRON 4 MG/2 ML VIAL IV PRN (00:58)
[2022-08-04] MEDS ORDERED: ACETAMINOPHEN 500 MG TAB PO PRN (00:58)
[2022-08-04 00:59] LABS: ALT/SGPT 37 U/L (13-56); Albumin 3.5 g/dL (3.4-5.0); Alkaline Phosphatase 71 U/L (45-117); BUN Blood Urea Nitrogen 18 mg/dL (7-18); Bicarbonate 31 mEq/L (21-32); Bilirubin Total 0.4 mg/dL (0.2-1.0); Glomerular Filtration Rate 73 ml/min (=/>90); Glucose Level 381 mg/dL (74-106); Protein, Total 7.1 g/dL (6.4-8.2); Sodium Level 135 mEq/L (136-145)
[2022-08-04 01:07] LABS: AST/SGOT 35 U/L (15-37); Bilirubin Direct < 0.1 mg/dL (0-0.2); Bilirubin Indirect, Calculated ND mg/dL (0.2-0.8); Magnesium 2.5 mg/dL (1.6-2.4)
[2022-08-04 01:08] LABS: Troponin High Sensitivity 92.2 pg/mL (<58.9)
[2022-08-04 01:22] LABS: Blood Morphology Comment NOT SEEN (NOT SEEN); Platelet Estimate ADEQ
[2022-08-04 01:34] VITALS: BMI 21.8
[2022-08-04] MEDS: METHYLPREDNISOLONE 40 MG INJ IV SCH ×2 (02:02→07:47)
[2022-08-04] MEDS: IPRATROPIUM BROM 0.5MG/2.5ML NEB SCH ×3 (02:25→14:42)
[2022-08-04] MEDS: ALBUTEROL 2.5 MG/3 ML NEB SOL NEB SCH ×3 (02:25→14:42)
--- NOTE | 2022-08-04 07:31 | RAD REPORT ---
EXAM DESCRIPTION: RAD - Chest Single View - 08/04/2022 12:01 am CLINICAL HISTORY: COUGH Chest pain. COMPARISON: Chest Single View dated 08/03/2022; Chest Single View dated 07/02/2022; Chest Single View dated 04/18/2022; Chest Single View dated 11/09/2021 FINDINGS: Portable technique limits examination quality. The lungs are moderately emphysematous but grossly clear. The heart is normal in size. No displaced f ractures. IMPRESSION: Moderate COPD.
[2022-08-04 08:27] VITALS: TEMP 97.6
[2022-08-04] MEDS: INSULIN -REGULAR HUMAN 50 UNIT/0.5 ML ML SQ SCH ×3 (08:49→16:13)
[2022-08-04] MEDS ORDERED: CARIPRAZINE HCL 1.5 MG PO SCH (09:00)
[2022-08-04] MEDS ORDERED: HOME MED 1 EA UNK (Fluticasone/Umeclidin/Vilanter [Trelegy Ellipta 100-62.5-25] Blst.W.Dev IH SCH (09:00)
[2022-08-04] MEDS ORDERED: ASPIRIN 81 MG CHEWABLE TABLET PO SCH (09:00)
[2022-08-04] MEDS ORDERED: METOPROLOL TAR 25 MG TAB PO SCH (09:00)
[2022-08-04] MEDS ORDERED: POTASSIUM GLUCONATE 99 MG PO SCH (09:00)
[2022-08-04] MEDS ORDERED: GUAIFENESIN 1200 MG PO SCH (09:00)
[2022-08-04] MEDS ORDERED: CLOPIDOGREL 75 MG TABLET PO SCH (09:00)
[2022-08-04] MEDS ORDERED: BUSPIRONE HCL 15 MG TABLET PO SCH (09:00)
[2022-08-04] MEDS ORDERED: GUAIFENESIN 600 MG SA TAB PO SCH (09:00)
[2022-08-04] MEDS ORDERED: INSULIN GLARGINE 100 UNIT/ML SQ SCH (09:00)
[2022-08-04] MEDS ORDERED: HOME MED 1 EA UNK (Linagliptin [Tradjenta] 5 MG Tablet) PO SCH (09:00)
[2022-08-04] MEDS ORDERED: ENOXAPARIN 40 MG/0.4 ML SQ SCH (09:00)
[2022-08-04] MEDS ORDERED: lamoTRIgine 100 MG TAB PO SCH (09:00)
[2022-08-04] MEDS ORDERED: HOME MED 1 EA UNK (Levocetirizine Dihydrochloride [Allergy Relief] 5 MG Tablet) PO SCH (09:00)
[2022-08-04] MEDS ORDERED: ROFLUMILAST 500 MCG TABLET PO SCH (09:00)
[2022-08-04] MEDS ORDERED: FLUOXETINE 20 MG CAP PO SCH (09:00)
--- NOTE | 2022-08-04 12:39 | P.CNS ---
Date of Consult: 08/04/22 Reason for Consult: COPD exacerbation Chief Complaint: COPD Exacerbation History of Present Illness: Kidney 66 years of age well-known to me heavy smoker admitted with worsening dyspnea chest congestion for the past 2 weeks pliant with trilogy also uses Breztri and nebulizers clear cough Allergies diazepam [From Valium] Adverse Reaction (Verified 08/04/22 01:38) "makes me stupid, too strong for me" diphenhydramine [From Benadryl] Adverse Reaction (Verified 08/04/22 01:38) "turns my nerve inside out" lorazepam Adverse Reaction (Verified 08/04/22 01:38) stomach issue Home Medications: Albuterol Inhaler [Ventolin Inhaler*] 1 puff IH Q4HP PRN 08/04/22 Albuterol Neb [Proventil 0.083% Neb Soln] 1 amp NEB Q4HP PRN 08/04/22 Aspirin Chewable [Aspirin Chewable*] 81 mg PO DAILY 08/04/22 Atorvastatin Calcium [Lipitor] 80 mg PO BEDTIME 08/04/22 Buspirone HCl [Buspar] 15 mg PO BID 08/04/22 Cariprazine HCl [Vraylar] 1.5 mg PO DAILY 08/04/22 Clopidogrel Bisulfate [Plavix*] 75 mg PO DAILY 08/04/22 Fluoxetine HCl [Prozac] 20 mg PO DAILY 08/04/22 Fluticasone/Umeclidin/Vilanter [Trelegy Ellipta 100-62.5-25] 1 puff IH DAILY 08/04/22 Guaifenesin [Mucinex] 1,200 mg PO BID 08/04/22 Insulin Aspart [Novolog Flexpen] See Protocol SQ ACHS 08/04/22 Insulin Glargine,Hum.rec.anlog [Lantus] 10 unit SQ BID 08/04/22 Ipratropium/Albuterol Sulfate [Iprat-Albut 0.5-3(2.5) mg/3 ml] 1 amp NEB Q4HP PRN 08/04/22 Lamotrigine [Lamictal] 100 mg PO BID 08/04/22 Levocetirizine Dihydrochloride [Allergy Relief] 5 mg PO DAILY 08/04/22 Linagliptin [Tradjenta] 5 mg PO DAILY 08/04/22 Metoprolol Tartrate [Lopressor*] 25 mg PO BID 08/04/22 Potassium Citrate [Potassium] 99 mg PO DAILY 08/04/22 Roflumilast [Daliresp*] 500 mcg PO DAILY 08/04/22 Trazodone HCl [Desyrel] 100 mg PO BEDTIME 08/04/22 predniSONE [Prednisone*] 10 mg PO DAILY 08/04/22 - Past Medical/Surgical History Diabetic: Yes -: COPD -: HTN -: Diabetes mellitus type 2 -: CAD -: Depression -: bipolar -: anxiety -: neuropathy -: -: Stents Psychosocial/ Personal History: Patient is retired, lives with her daughter - Family History Father History Unknown: Yes Notes: Patient is adopted - Social History Smoking Status: Current every day smoker Alcohol use: No CD- Drugs: No Caffeine use: Yes Place of Residence: Home Review of Systems General: Weakness Respiratory: Cough, Shortness of Breath Physical Examination Temp Pulse Resp BP Pulse Ox 97.6 F 102 H 16 115/72 96 08/04/22 08:00 08/04/22 08:52 08/04/22 08:00 08/04/22 08:52 08/04/22 08:00 General: Alert, Oriented x3 Respiratory: Expiratory wheezes Cardiovascular: Regular rate/rhythm, Normal S1 S2 Gastrointestinal: Normal bowel sounds, Soft and benign Laboratory Data (last 24 hrs) 08/03/22 23:45: WBC 9.80, Hgb 13.7, Hct 41.3, Plt Count 244 08/03/22 23:45: Sodium 135 L, Potassium 4.0, BUN 18, Creatinine 0.87, Glucose 381 H, Magnesium 2.5 H, Total Bilirubin 0.4, AST 35, ALT 37, Alkaline Phosphatase 71 08/03/22 23:05: PT Cancelled, INR Cancelled - Problems (1) COPD exacerbation Current Visit: Yes Status: Acute Plan: Patient is 66 years of age admitted with COPD exacerbation still continues to smoke heavily and elevation of troponins most likely demand ischemia denies any chest pain chest x-ray shows COPD changes vital signs are all stable condition satisfactory changed to p.o. prednisone levofloxacin discharge a.m.
[2022-08-04] MEDS ORDERED: levoFLOXacin 750 MG TAB PO SCH (12:44)
--- NOTE | 2022-08-04 15:58 | P.PN ---
Date of Service: 08/04/22 Patient seen and examined. She states she feels much better. She states her shortness of breath has significantly improved. She is on 3 L of oxygen by nasal cannula. Patient uses 2.5 L at baseline. Pulmonary input appreciated. Continue bronchodilators, oral prednisone. Manage blood sugar with insulin sliding scale and Lantus insulin. Possible discharge in a.m.
[2022-08-04 16:26] VITALS: O2SAT 95
[2022-08-04 16:46] VITALS: BP 146/65
--- NOTE | 2022-08-04 17:14 | P.DS ---
Admission Date: 08/04/22 Discharge Date: 08/04/22 Disposition: ROUTINE DISCHARGE Discharge Condition: FAIR Reason for Admission: COPD Exacerbation - Problems (1) COPD exacerbation Status: Acute (2) Diabetes mellitus type 2 in nonobese Status: Acute (3) HTN (hypertension) Status: Chronic Qualifiers: Hypertension type: primary hypertension Qualified Code(s): I10 - Essential (primary) hypertension Brief History of Present Illness: Ms. Reyes is a 66 year old female with past medical history of COPD on home O2 (2.5LNC), tobacco abuse, IDDM2, HTN, and HLD who presented to the emergency department via EMS with complaints of shortness of breath, wheezing, and hypoxia. Patient was in the emergency department just a few hours prior with COPD exacerbation after being found on the ground mottled and very tachycardic but refused admission. Her wheezing and shortness of breath worsened, states she could not locate her home nebs or home oxygen and called EMS. Chest xray negative. Troponin elevated at 92. EKG without STEMI criteria. Lactate within normal limits. COVID flu negative. Patient given Levaquin and admitted for further management. Hospital Course: Patient admitted to the medical floor and treated for COPD exacerbation with IV steroids, bronchodilators and antibiotic. She was seen and evaluated by pulmonary Dr. Licona. IV steroid was transitioned to oral prednisone. Her blood sugar was initially severely elevated but that improved with her home dose Lantus insulin and insulin corrective scale. Her oxygen requirement has improved to baseline. Patient stated she has improved to baseline and requested to go home. She is prescribed a prednisone taper and oral antibiotics and discharged according to her request. Her troponin was mildly elevated but trended down with monitoring. No ACS. Vital Signs/Physical Exam: Temp Pulse Resp BP Pulse Ox 97.6 F 96 H 16 146/65 H 95 08/04/22 16:00 08/04/22 16:00 08/04/22 16:00 08/04/22 16:00 08/04/22 16:00 General: Alert, In no apparent distress, Oriented x3 HEENT: Mucous membr. moist/pink, Sclerae nonicteric Neck: JVD not distended Respiratory: Diminished, Other (No crackles) Cardiovascular: No edema, Regular rate/rhythm, Normal S1 S2 Gastrointestinal: Normal bowel sounds, Soft and benign, Non-distended, No tenderness Musculoskeletal: No swelling Integumentary: No rashes, No cyanosis Neurological: Normal strength at 5/5 x4 extr Laboratory Data at Discharge: WBC 9.80 thou/uL (4.3-10.9) 08/03/22 23:45 Hgb 13.7 g/dL (12.0-15.0) 08/03/22 23:45 Hct 41.3 % (36.0-45.0) 08/03/22 23:45 Plt Count 244 thou/uL (152-406) 08/03/22 23:45 PT Cancelled 08/03/22 23:05 INR Cancelled 08/03/22 23:05 Sodium 135 mEq/L (136-145) L 08/03/22 23:45 Potassium 4.0 mEq/L (3.5-5.1) 08/03/22 23:45 BUN 18 mg/dL (7-18) 08/03/22 23:45 Creatinine 0.87 mg/dL (0.55-1.02) 08/03/22 23:45 Glucose 381 mg/dL (74-106) H 08/03/22 23:45 Magnesium 2.5 mg/dL (1.6-2.4) H 08/03/22 23:45 Total Bilirubin 0.4 mg/dL (0.2-1.0) 08/03/22 23:45 AST 35 U/L (15-37) 08/03/22 23:45 ALT 37 U/L (13-56) 08/03/22 23:45 Alkaline Phosphatase 71 U/L (45-117) 08/03/22 23:45 Home Medications: Albuterol Inhaler [Ventolin Inhaler*] 1 puff IH Q4HP PRN 08/04/22 Albuterol Neb [Proventil 0.083% Neb Soln] 1 amp NEB Q4HP PRN 08/04/22 Aspirin Chewable [Aspirin Chewable*] 81 mg PO DAILY 08/04/22 Atorvastatin Calcium [Lipitor] 80 mg PO BEDTIME 08/04/22 Buspirone HCl [Buspar] 15 mg PO BID 08/04/22 Cariprazine HCl [Vraylar] 1.5 mg PO DAILY 08/04/22 Clopidogrel Bisulfate [Plavix*] 75 mg PO DAILY 08/04/22 Fluoxetine HCl [Prozac] 20 mg PO DAILY 08/04/22 Fluticasone/Umeclidin/Vilanter [Trelegy Ellipta 100-62.5-25] 1 puff IH DAILY 08/04/22 Guaifenesin [Mucinex] 1,200 mg PO BID 08/04/22 Insulin Aspart [Novolog Flexpen] See Protocol SQ ACHS 08/04/22 Insulin Glargine,Hum.rec.anlog [Lantus] 10 unit SQ BID 08/04/22 Ipratropium/Albuterol Sulfate [Iprat-Albut 0.5-3(2.5) mg/3 ml] 1 amp NEB Q4HP PRN 08/04/22 Lamotrigine [Lamictal] 100 mg PO BID 08/04/22 Levocetirizine Dihydrochloride [Allergy Relief] 5 mg PO DAILY 08/04/22 Linagliptin [Tradjenta] 5 mg PO DAILY 08/04/22 Metoprolol Tartrate [Lopressor*] 25 mg PO BID 08/04/22 Potassium Citrate [Potassium] 99 mg PO DAILY 08/04/22 Roflumilast [Daliresp*] 500 mcg PO DAILY 08/04/22 Trazodone HCl [Desyrel] 100 mg PO BEDTIME 08/04/22 levoFLOXacin [Levaquin*] 750 mg PO DAILY #5 tab 08/04/22 predniSONE [Deltasone*] 40 mg PO DAILY #30 tab 08/04/22 predniSONE [Prednisone*] 10 mg PO DAILY 08/04/22 New Medications: predniSONE [Deltasone*] 40 mg PO DAILY #30 tab levoFLOXacin [Levaquin*] 750 mg PO DAILY #5 tab Diet: AHA Activity: Ad darby Followup: Alonso Licona MD [ACTIVE - CAN ADMIT] - (Within 2 weeks) Time spent managing pt's care (in minutes): 33
--- NOTE | 2022-08-04 20:37 | EKG ---
Test Date: 2022-08-03 Test Time: 23:25:14 Human Resources Communications Manager: JOSEFINA MEASUREMENT RESULTS: Intervals: Rate: 91 CO: 142 QRSD: 82 QT: 378 QTc: 464 Onia: P: 87 CO: 142 QRS: 82 T: 84 INTERPRETIVE STATEMENTS: Normal sinus rhythm Right atrial enlargement Borderline ECG Compared to ECG 08/03/2022 19:10:37 Sinus tachycardia no longer present Electronically Signed On 08-04-22 20:32:56 CDT by Ramses Palmer
[2022-08-04] MEDS ORDERED: TRAZODONE 50 MG TABLET PO SCH (21:00)
[2022-08-04] MEDS ORDERED: ATORVASTATIN 80 MG TAB PO SCH (21:00)
[2022-08-04] MEDS ORDERED: predniSONE 20 MG TAB PO SCH (21:00)
== END 2022-08-04 17:35 | disposition home or self-care (01) ==
LOC: ER 22:54 → ERHOLD 08-04 00:20 → INTOOBSV 08-04 00:20 → 2ND 08-04 01:08
PROVIDERS: ADMIT Internal Medicine; ATTEND Internal Medicine
DX: J44.1 Chronic obstructive pulmonary disease with (acute) exacerbation (principal); E11.8 Type 2 diabetes mellitus with unspecified complications; I10 Essential (primary) hypertension; E78.5 Hyperlipidemia, unspecified; F17.210 Nicotine dependence, cigarettes, uncomplicated; F41.9 Anxiety disorder, unspecified; I25.10 Atherosclerotic heart disease of native coronary artery without angina pectoris; E11.65 Type 2 diabetes mellitus with hyperglycemia; R77.8 Other specified abnormalities of plasma proteins; Z88.8 Allergy status to other drugs, medicaments and biological substances; Z99.81 Dependence on supplemental oxygen; Z79.4 Long term (current) use of insulin
CPT/HCPCS: 93005; 85025; 80048; 36415; 83735; 82947 ×3; 80076; 84484 ×2; 71045; 94010; 94640; 94760 ×2; 96375; 96374; 99285; J1815 ×3; J7613 ×3; J7644 ×3; J1650; J2920 ×2

== ENCOUNTER 2022-11-19 18:04 | Observation (INO) | payer OTHER ==
--- OUTSIDE RECORDS SUMMARY | 2022-11-19 18:21 | XMS REPORT | Continuity of Care Document ---
:1955 Author Organization [facility] t Address [address] [place] [address]. [address] [place] [address] Care Team Providers Name Role Phone Yasir Lyon [facility] Primary Care P hysician Doctor Unassigned, [place] Attending Clinician Unavailable Rogelio Oconnor Attending Clinician Zina DALY, Colette De León Attending Clinician Hyun Flynn MD Attending Clinician Sarah Barkley Attending Clinician Minna Mike MD Attending Clinician Lexy Monae MD Attending Clinician David Echeverria Attending Clinician [phone] MINNA MIKE Attending Clinician Unavailable Soila Villar DO Attending Clinician SOILA VILLAR Attending Clinician Unavailable HYUN FLYNN Admitting Clinician Unavailable David Echeverria Admitting Clinician [phone] AUREA, SOILA J Admitting Clinician Unavailable Payers Payer Name Policy [...] active ity of problems problems [facility] Peripheral Periphera Problem Active 2021-12-08 Memoria nerve l nerve 03:46:04 l disease disease [place] (disorder) (disorder) Active Problem 12/08/2021 [facility] [...] 00 Medical Branch Diphenhy Propensi Active Anxiety 2019- Unive rs dramine ty to 618 ity of adverse 00:00: [place] reaction 00 Medical s Branch NO KNOWN Drug Active Univers ALLERGIE Class ity of S [facility] Social History Social Habit Start Date Stop Date Quantity Comments Source Sexual orientation [facility] Exposure to Not sure University SARS-CoV-2 (event) [facility] Gender identity [facility] History of tobacco Cigarette Smoker [facility] use [facility] History of Social 2021-07-16 2021-07-[address] function 00:00:00 00:00:00 Hospital Cigarettes smoked 2021-07-15 2021-07-[address] current (pack per 00:00:00 00:00:00 Hospita l day) - Reported Alcohol intake 2021-07-15 2021-07-15 Ex-drinker [facility] 00:00:00 00:00:00 (finding) Hospital Tobacco use and 2021-07-15 2021-07-15 Smokeless [facility] exposure 00:00:00 00:00:00 tobacco non-user Hospital Cigarette 2019-12-28 2019-12-28 University of pack-years 00:00:00 00:00:00 [place] [facility] History SDSD 2019-12-28 2019-12-28 1 University o f Alcohol Frequency 00:00:00 00:00:00 [facility] edical Branch History SDSD 2019-12-28 2019-12-28 99 University o f Alcohol Std Drinks 00:00:00 00:00:00 [place] [facility] History [facility] 2019-12-28 2019-12-28 1 University o f Alcohol Binge 00:00:00 00:00:00 [place] [facility] Sex [birth year] [facility] 00:00:00 00:00:00 Hospital Smoking Status Start Date Stop Date Source Smokes tobacco daily 2021-07-15 00:00:00 [facility] Unknown if ever smoked [facility] [place] [facility] Medications Ordered Filled Start Stop Current Ordering Indication Dosage Frequency Signature Comments Components Source Medication Medication Date Date Medication? Clinician (SIG) Name Name TAKE 2021-02 No 100 TABLET 0-30 TWICE 00:00: DAILY. 00 prednisone 2021-02 No 10 mg 0-29 tablet 00:00: 00 TAKE 2-1 No 10 TABLET BY 0-29 MOUTH TWICE 00:00: DAILY 00 Dose 2021-1 No Unknown 0-11 00:00: 00 Dose 2-1 No Unknown 0-11 00:00: 00 Dose 2021-1 No Unknown 0-11 00:00: 00 ipratropium 2-0 [...] mg 9-28 capsule 00:00: 00 TAKE 1 2021-0 No TABLET AT 9-26 BEDTIME. 00:00: 00 TAKE 1 2021-0 No TABLET AT 9-26 BEDTIME. 00:00: 00 TAKE 1 2021-0 No 100 TABLET AT 9-26 BEDTIME. 00:00: 00 TAKE 1 2-0 No TABLET AT 9-26 BEDTIME. 00:00: 00 Dose 2-0 No Unknown 914 00:00: 00 Dose 2-0 No Unknown 9 00:00: 00 Dose 2-0 No Unknown 914 00:00: 00 Dose 2-0 No Unknown 10-22 00:00: 00 Dose 2-0 No Unknown 9- 00:00: 00 quetiapine 2-0 No 25 mg [...] HOURS 00 NEEDED Dose 2022-0 No Unknown 8-16 00:00: 00 [...] 8-05 00:00: 00 Dose 2022-0 No Unknown 8- [...] No 7- 00:00: 00 &lt 2022-0 No 7-29 00:00: 00 &lt 2022-0 No 7- 00:00: [...] No 7-06 00:00: 00 &lt 2022-0 No 7- 00:00: 00 Dose 2022-0 No Unknown 7 00:00: 00 &lt 2022-0 No 6 00:00: [...] 25 6-14 mg tablet 00:00: 00 &lt 2021-0 No 6-14 00:00: 00 metoprolol 2021-0 No 1mg tartrate 25 6-14 mg tablet 00:00: 00 &lt 2021-0 No 6-14 00:00: 00 predniSONE 2021-0 Yes 10mg QD Take 10 [...] mg tablet 13:57: Hospita 05 l metoprolol 202-0 Yes 25mg Q.5D Take 25 mg M [...] a l mcg/actuati day. on inhaler aspirin 2-0 Yes 81mg QD Take 81 [...] mg tablet 13:57: Hospita 05 l metoprolol 2022-0 Yes 25mg Q.5D Take 25 mg M [...] QD Take 80 mg Methodi n (LIPITOR) 6- by mouth st 80 MG 13:57: nightly. [...] 3mL Q.25D Take 3 mL Methodi -albuteroL 07-[address] (DUO-NEB) 13:57: nebulizati Ho spita [...] 13:57: mouth. Hospita tablet 05 l clopidogreL 0 Yes 75mg Take 75 mg Methodi (PLAVIX) [...] blister with device powder for inhalation albuterol 2022-0 Yes 2{puff} Q6H Inhale 2 M ethodi [...] 13:57: daily with Hospita 05 breakfast. l predniSONE 2-0 Yes 10mg QD Take 10 mg M ethodi (DELTASONE) 6-[address] 10 mg 13:57: daily. Hospita tablet 05 l atorvastati 2021-0 Yes 80mg QD Take [...] tablet 13:57: daily. Hospit a 05 l lamoTRIgine 2-0 Yes 100mg Q.5D [...] 13:57: daily. Hospit a 05 l Lantus No 10(3 Solostar 6-09 mL) U-100 00:00: Insulin 100 00 unit/mL (3 mL) subcutaneou s pen &lt 2021-0 No 6- 00:00: 00 &lt 2021-0 No 6- 00:00: 00 Lantus 2022-0 No 10(3 Solostar [...] No 6-03 00:00: 00 &lt 2022-0 No 6- 00:00: 00 &lt 2022-0 No 6- 00:00: 00 &lt 2022-0 No 6- 00:00: 00 Dose 2022-0 No Unknown 6- 00:00: 00 &lt 2022-0 No 6- 00:00: 00 &lt 2022-0 No 6- 00:00: 00 &lt 2022-0 No 6-03 00:00: 00 &lt 2022-0 No 6- 00:00: 00 &lt 2022-0 No 6-03 00:00: 00 &lt 2022-0 No 6- 00:00: 00 Dose 2022-0 No Unknown 6- 00:00: 00 &lt 2022-0 No 6- 00:00: 00 &lt 2022-0 No 6-03 [...] Zoloft 50 2022-0 No 1mg mg tablet 3- 00:00: 00 [...] 2022-0 No Unknown 3-21 00:00: 00 Dose 2-0 [...] 2022-0 No Unknown 3-17 00:00: 00 metoprolol 2-0 No 1mg tartrate 25 3-17 mg tablet 00:00: 00 atorvastati 2022-0 No 1mg n 80 mg 3-17 tablet 00:00: 00 esomeprazol 2-0 No 1mg e magnesium 3-17 40 mg 00:00: capsule,del 00 ayed release ipratropium 2-0 No 3mg 0.5 3-17 base)/3 mg-albutero 00:00: mL l 3 mg (2.5 00 mg base)/3 mL nebulizatio n soln Dose 2022-0 No Unknown 3-14 00:00: 00 [...] 15 mg 1-11 tablet 00:00: 00 Dose 2021-1 No Unknown 1-11 00:00: 00 Lamictal 2020-1 [...] 2020- No Unknown 1-11 00:00: 00 trazodone 2020-1 No 15mg 100 mg 1-11 tablet 00:00: 00 buspirone 2020- No 1mg 15 mg 1-11 tablet 00:00: 00 Dose 2020-1 No Unknown 1-11 00:00: 00 Tradjenta 5 2020- No 1mg mg tablet 0-21 00:00: 00 metoprolol 2020-1 No 1mg tartrate 25 0-21 mg tablet 00:00: 00 atorvastati 2020- No 1mg n 80 mg 0-21 tablet 00:00: 00 Tradjenta 5 2020- No 1mg mg tablet 0-21 00:00: 00 Tradjenta 5 2020- No 1mg mg tablet 0-21 00:00: 00 metoprolol 2020-1 No 1mg tartrate 25 0-21 mg tablet 00:00: 00 atorvastati 2020-1 No 1mg n 80 mg 0-21 tablet 00:00: 00 metoprolol 2020-1 No 1mg tartrate 25 0-21 mg tablet 00:00: 00 atorvastati 2020- No 1mg n 80 mg 0-21 tablet [...] mg 0-08 tablet 00:00: 00 Prozac 20 1-1 No 1mg mg capsule 0-08 00:00: 00 Lamictal 1-1 No 1mg 100 mg 0-08 tablet 00:00: 00 trazodone 2021-1 No 15mg 100 mg 0-08 tablet 00:00: 00 buspirone 1-1 No 1mg 15 mg 0-08 tablet 00:00: 00 Prozac 20 1-1 No 1mg mg capsule 0-08 00:00: 00 Dose 2021-0 No Unknown 9-20 00:00: 00 Dose 1-0 No Unknown 9- 00:00: 00 Dose 1-0 No Unknown 9 00:00: 00 Dose 1-0 No Unknown 9 00:00: 00 Dose 1-0 No Unknown 10-28 00:00: 00 Dose 1-0 No Unknown 9 00:00: 00 Dose 1-0 No Unknown 9 00:00: 00 Dose 2021-0 No Unknown 9 00:00: 00 Lamictal 1-0 No 1mg 100 [...] 100 mg 8- tablet 00:00: 00 trazodone 2021-0 No 15mg 100 mg 8- tablet 00:00: 00 buspirone 2021-0 No 1mg 15 mg 8-02 tablet 00:00: 00 Prozac 20 1-0 No 1mg mg capsule 09-09 00:00: 00 Lamictal 2021-0 No 1mg 100 mg 8- tablet 00:00: 00 trazodone 2021-0 No 15mg 100 mg 8- tablet 00:00: 00 buspirone 2021-0 No 1mg 15 mg 8- tablet 00:00: [...] 7 00:00: 00 Dose 1-0 No Unknown 7 00:00: 00 Dose 1-0 No Unknown 7 00:00: 00 Dose 1-0 No Unknown 7 [...] 1-0 No Unknown 7-08 00:00: 00 Lamictal 2021-0 [...] 1-0 No Unknown 4-07 00:00: 00 Dose 2020-0 [...] 1-0 No Unknown 4-07 00:00: 00 Anoro 2020-0 [...] 5 mg tablet 1-24 00:00: 00 Anoro 2019-02 No 1mcg/ac Ellipta [...] prednisone 2019-02 No mg 5 mg tablet 124 00:00: 00 prednisone 2019-02 No 1mg 20 mg 1-24 tablet 00:00: 00 Anoro 2019-02 No 1mcg/ac Ellipta 1-24 tuation 62.5 mcg-25 00:00: mcg/actuati 00 on powder for inhalation prednisone 2019-02 No mg 5 mg tablet 124 00:00: 00 prednisone 2019-02 No 1mg 20 mg 1-24 tablet 00:00: 00 metFORMIN 2019-02 Yes 500mg Take 500 Uni vers 500 mg 1-21 mg by ity of tablet 20:14: mouth 2 [place] [address] ([facility]) Medical times [place] daily with meals. traZODone 2019-02 Yes 150mg Take 150 Uni vers 100 mg 1-21 mg by ity of tablet 20:14: mouth at [place] [address] bedtime. Medical Branch busPIRone 2019-02 Yes 7.5mg Take 7.5 Uni vers 7.5 mg 1-21 mg by ity of tablet 20:14: mouth 2 [place] [address] ([facility]) Medical times Branch daily. FLUoxetine 2019-02 Yes 20mg Take 20 mg U nivers 20 mg 1-21 by mouth ity of capsule 20:14: daily. [place] [address] Medical Branch lamoTRIgine 2019-02 Yes 100mg Take 100 U nivers 100 mg 1-21 mg by ity of tablet 20:14: mouth 2 [place] [address] ([facility]) Medical times Branch daily. fluticasone 2019-02 Yes 1{puff} Inhale 1 Univers propionate 1-21 Puff 2 ity of 44 20:14: (two) [place] mcg/actuati 09 times Medical on inhaler daily. Branch albuterol 2019-02 Yes 2{puff} Inhale 2 U nivers (PROVENTIL 1-21 Puffs ity of HFA) 90 20:14: every 6 [place] mcg/actuati (six) Medical on inhaler hours as Branc h needed for Wheezing or Shortness of Breath. atorvastati 2019-02 Yes 80mg Take 80 mg Univers n (LIPITOR) 1-21 by mouth ity of 80 mg 20:14: at [facility] bedtime. Medical Branch mupirocin 2 2019-02 Yes Apply to Un destiny % ointment 1-21 area(s) 2 ity of 20:14: (two) [place] times Medical daily. Branch metoprolol 2019-02 Yes [...] by ity of tablet 20:14: mouth at [place] bedtime. Medical Branch busPIRone 2019-02 Yes 7.5mg [...] Puff 2 ity of 44 20:14: (two) [place] mcg/actuati 09 times Medical on inhaler daily. Branch albuterol 2019-02 Yes 2{puff} Inhale 2 U nivers (PROVENTIL 1-21 Puffs ity of HFA) 90 20:14: every 6 [place] mcg/actuati (six) Medical on inhaler hours as Branc h needed for Wheezing or Shortness of Breath. atorvastati 2019-02 Yes 80mg Take 80 mg Univers n (LIPITOR) 1-21 by mouth ity of 80 mg 20:14: at [facility] 09 bedtime. Medical Branch mupirocin 2 2019-02 Yes Apply to Un destiny % ointment 1-21 area(s) 2 ity of 20:14: (two) [place] times Medical daily. Branch metoprolol 2019-02 Yes [...] by ity of tablet 20:14: mouth at [place] [address] bedtime. Medical Branch busPIRone 2019-02 Yes 7.5mg [...] by ity of tablet 20:14: mouth 2 [place] (two) Medical times Branch daily. fluticasone 2019-02 Yes 1{puff} Inhale 1 Univers propionate 1-21 Puff 2 ity of 44 20:14: (two) [place] mcg/actuati 09 times Medical on inhaler daily. [...] mg 1-21 mg by ity of tablet 14:14: mouth 2 (two) Medical times Branch daily with meals. traZODone 2019-02 Yes 150mg Take 150 Uni vers 100 mg 1-21 mg by ity of tablet 14:14: mouth at [place] bedtime. Medical Branch busPIRone 2019-02 Yes 7.5mg Take 7.5 Uni vers 7.5 mg 1-21 mg by ity of tablet 14:14: mouth 2 (two) Medical times Branch daily. FLUoxetine 2019-02 Yes 20mg Take 20 mg U nivers 20 mg 1-21 by mouth ity of capsule 14:14: daily. Medical Branch lamoTRIgine 2019-02 Yes 100mg Take 100 U nivers 100 mg 1-21 mg by ity of tablet 14:14: mouth 2 (two) Medical times Branch daily. fluticasone 2019-02 Yes 1{puff} Inhale 1 Univers propionate 1-21 Puff 2 ity of 44 14:14: (two) [place] mcg/actuati 09 times Medical on inhaler daily. Branch albuterol 2019-02 Yes 2{puff} Inhale 2 U nivers (PROVENTIL 1-21 Puffs ity of HFA) 90 14:14: every 6 [place] mcg/actuati (six) Medical on inhaler hours as Branc h needed for Wheezing or Shortness of Breath. atorvastati 2019-02 Yes 80mg Take 80 mg Univers n (LIPITOR) 1-21 by mouth ity of 80 mg 14:14: at [place] tablet 09 bedtime. Medical Branch mupirocin 2 2019-02 Yes Apply to Un destiny % ointment 1-21 area(s) 2 ity of 14:14: (two) [place] 09 times Medical daily. Branch metoprolol 2019-02 Yes 12.5mg Take 12.5 Univers tartrate 25 1-21 mg by ity of mg tablet 14:14: mouth 2 [place] 09 (two) Medical times Branch daily. atorvastati 2019-02 Yes 80mg 80 mg, Univ ers n (LIPITOR) 1-21 Oral, QHS, it y of tablet 80 03:00: First dose [place] mg 00 (after Medical last Branch modificati on) on Wed12/29/19 at 2100, Until Discontinu ed, Routine clopidogreL 2019-02 Yes [id number] 75mg Take 1 Univers 75 mg 1-21 tablet by ity of tablet 00:00: mouth [place] 00 daily. Medical Branch aspirin 81 2019-02 Yes [id number] 81mg Take 1 Univers mg chewable 1-21 tablet by ity of tablet 00:00: mouth [place] 00 daily. Medical Branch predniSONE 2019-02 Yes [id number] 40mg Take 2 U nivers 20 mg 1-21 tablets by ity of tablet 00:00: mouth [place] 00 daily. Medical Branch clopidogreL 2019-02 Yes [id number] 75mg Take 1 Univers 75 mg 1-21 tablet by ity of tablet 00:00: mouth [place] 00 daily. Medical Branch aspirin 81 2019-02 Yes [id number] 81mg Take 1 Univers mg chewable 1-21 tablet by ity of tablet 00:00: mouth [place] 00 daily. Medical Branch predniSONE 2019-02 Yes [id number] 40mg Take 2 U nivers 20 mg 1-21 tablets by ity of tablet 00:00: mouth [place] 00 daily. Medical Branch clopidogreL 2019-02 Yes [id number] 75mg Take 1 Univers 75 mg 1-21 tablet by ity of tablet 00:00: mouth [place] 00 daily. Medical Branch aspirin 81 2019-02 Yes [id number] 81mg Take 1 Univers mg chewable 1-21 tablet by ity of tablet 00:00: mouth [place] 00 daily. Medical Branch predniSONE 2019-02 Yes [id number] 40mg Take 2 U nivers 20 mg 1-21 tablets by ity of tablet 00:00: mouth [place] 00 daily. Medical Branch aspirin 81 2019-02 Yes [id number] 81mg Take 1 Univers mg chewable 1-21 tablet by ity of tablet 00:00: mouth [place] 00 daily. Medical Branch clopidogreL 2019-02- No 75mg Take 75 mg Univers 75 mg 02-27 by mouth ity of tablet 22:51: 00:00 daily. [place] 35 :00 Medical Branch clopidogreL 2019-02- No Oral, Univ ers (PLAVIX) 02-27 TITRATE - ity o f tablet 21:25: 21:25 FOR [place] 13 :13 PROCEDURE Medical USE, 1 Branch dose, Starting Wed12/29/19 at 1525, Until Wed12/29/19 at 1525, Routine ticagrelor 2019-02- No Oral, Unive rs (BRILINTA) 02-27 TITRATE - ity of tablet 20:57: 20:57 FOR [place] 39 :39 PROCEDURE Medical USE, 1 Branch [...] 2020- No IV Push, Uni vers (VERSED) -12-28 TITRATE - ity o f injection 20:33: [...] 00 First dose Medical (NOVOLOG) + on [place] Branch [facility] 12/28/19 Testing at 2100, Until Discontinu ed, Routine lamoTRIgine 2019-02 Yes 100mg 100 mg, Un destiny (LAMICTAL) 1-20 Oral, BID, ity of tablet 100 02:00: First dose [place] mg 00 on [place] Medical 12/28/19 Branch at 2000, Until Discontinu ed, Routine predniSONE 2019-02 Yes [id number] 40mg Take 2 U nivers 20 mg 1-20 tablets by ity of tablet 00:00: mouth [place] 00 daily. Medical Branch clopidogreL 2019-02 Yes [id number] 75mg Take 1 Univers 75 mg 1-20 tablet by ity of tablet 00:00: mouth [place] 00 daily. Medical Branch predniSONE 2019-02 2020- No [id number] 40mg Take 2 Univers 20 mg 1-20 11-20 tablets by ity of tablet 00:00: 00:00 mouth [place] 00 :00 daily. Medical Branch predniSONE 2019-02 2020- No [id number] 40mg Take 2 Univers 20 mg 1-20 11-19 tablets by ity of tablet 00:00: 00:00 mouth [place] 00 :00 daily for Medical 4 days. Branch atorvastati 2019-02 2020- No 40mg 40 mg, Uni vers n (LIPITOR) 02-26 Oral, QPM, i ty of tablet 40 23:00: 02:01 First dose [place] mg 00 :46 on [facility] Medical 12/28/19 Branch at 1700, Until [...] ONCE, 1 [place] (LUMASON) 00 :00 dose, [facility] Medic al injection 5 12/28/19 Bran ch mL at 1245, Routine
outreach team member approving Restricted medication : DEJAN GONSALEZ Saline 2019-02- No 6mL 6 mL, Univers Bubble 02-26 Injection, ity of Study 17:33: 22:27 SEE-INSTRU [place] 16 :16 CTIONS, 2 Medical doses, Branch Starting [facility] 12/28/19 at 1133, Until Wed12/29/19 at 1627, Routine Saline 2019-02 Yes 6mL 6 mL, Univers Bubble 02-26 Injection, ity of Study 17:33: SEE-INSTRU [place] 14 CTIONS, 2 Medical doses, Branch Starting [facility] 12/28/19 at 1133, Until Discontinu ed, Routine clopidogreL 2019-02 Yes 75mg 75 mg, Univ ers (PLAVIX) 02-26 Oral, ity of tablet 75 15:00: DAILY, [place] mg 00 First dose Medical on [facility] Branch 12/28/19 at 0900, Until Discontinu ed, Routine
outreach team member approving Restricted medication : LEXY MONAE aspirin 2019-02 Yes 81mg 81 mg, Univers chewable 02-26 Oral, ity of tablet 81 15:00: DAILY, [place] mg 00 First dose Medical on [facility] Branch 12/28/19 at 0900, Until Discontinu ed, Routine predniSONE 2019-02- No 40mg 40 mg, Univ ers (DELTASONE) 02-26 Oral, ity of tablet 40 15:00: 14:59 DAILY, 5 [place] mg 00 :00 doses, Medical First dose Branch on [place] 12/28/19 at 0900, Last dose on 01/01/20 at 0900, Routine aspirin 2019-02 324mg 324 mg, Unive rs chewable 02-26 [...] 00 First dose Medi piedad %) on [facility] Branch nebulizer 12/28/19 solution at 0400, 2.5 mg Until Discontinu ed, Routine ipratropium 2019-02 Yes .5mg 0.5 mg, Uni vers (ATROVENT) 02-26 Inhalation ity of 0.02 % 10:00: , Q4H, [employer] nebulizer 00 First dose Medi piedad solution on [facility] Branch 0.5 mg 12/28/19 at 0400, [...] IV ity of (D50W) 08:37: Push, PRN, [place] injection 06 Starting Medica l 25 mL [place] Branch 12/28/19 at 0237, Until Discontinu ed, ELOY, Blood Glucose < or = 70 mg/dL and patient is unable to swallow or has mental status changes. acetaminoph 2019-02 Yes 650mg 650 mg, Un destiny en 02-26 Oral, ity of (TYLENOL) 08:36: Q6HPRN, [place] tablet 650 38 Starting Medic al mg [facility] Branch 12/28/19 at 0236, Until Discontinu ed, Routine, Pain (scale 1-3) nicotine 2019-02 Yes 1{patch 1 Patch, Un destiny (NICODERM) 02-26 } Topical, ity o f 21 mg/24 hr 06:15: Administer [place] patch 1 00 over 24 Medical Patch Hours, Branch Q24H, First dose on [place] 12/28/19 at 0015, Until Discontinu ed, Routine iohexol 2019-02 2020- No 100mL 100 mL, Unive rs (OMNIPAQUE 02-26 Intravenou it y of 350 05:00: 05:00 s, ONCE, 1 [place] BULK-100 00 :00 dose, Wed Medica l mL) 12/27/19 Branch injection at 2300, 100 mL Routine methylPREDN 2019-02 2020- No 40mg 40 mg, IV Univers ISolone sod 02-26 Piggyback, i ty of succ 02:45: 01:47 ONCE, 1 [place] (SOLU-MEDRO 00 :00 dose, Wed Med ical L (PF)) 12/27/19 Branch injection at 2045, 40 mg STAT metoprolol 2019-02 2020- No [id number] 12.5mg Take 0.5 Univers tartrate 25 02-26 tablets by i ty of mg tablet 00:00: 00:00 mouth 2 [place] 00 :00 (two) Medical times Branch daily. albuterol-i 2019-02 2020- No [id number] 1{puff} Inhale 1 Univers pratropium 02-26 Puff 4 ity of 20-100 00:00: 00:00 (four) [place] mcg/actuati 00 :00 times Medical on inhaler daily. Branch metoprolol 2019-02- No [id number] 12.5mg Take 0.5 Univers tartrate 25 1-19 11-19 tablets by i ty of mg tablet 00:00: 00:00 mouth 2 [place] 00 :00 (two) Medical times Branch daily. metoprolol 2019-02- No [id number] 12.5mg Take 0.5 Univers tartrate 25 1-19 11-19 tablets by i ty of mg tablet [...] mg 1-18 tablet 00:00: 00 Flovent HFA 2019- No 2mcg/ac 44 1-18 tuation mcg/actuati 00:00: [...] mg 1-18 tablet 00:00: 00 Flovent HFA 2019- No 2mcg/ac 44 1-18 tuation mcg/actuati 00:00: [...] 80 mg 1-18 tablet 00:00: 00 Lamictal 2019-02 No 1mg 100 mg 1-16 tablet 00:00: [...] mg base)/3 mL nebulizatio n soln ipratropium 2019-0 No 3mg 0.5 8-19 base)/3 mg-albutero 00:00: [...] 1 [place] mg 00 :00 dose, [facility] 07/27/19 at Branch 1730, Routine [...] 100 mg 0-01 tablet 00:00: 00 buspirone 2018-02 No 1mg 7.5 mg 0-01 tablet 00:00: 00 trazodone 2018-02 No 1mg 100 mg 0-01 tablet [...] buspirone 5 2019-0 No 1mg mg tablet 09 00:00: 00 trazodone 2019-0 No 1mg 100 mg 4-09 tablet 00:00: 00 Prozac 10 2019-0 No 1mg mg capsule 05-17 00:00: 00 Lamictal 2019-0 No 1mg 100 mg 4-09 tablet 00:00: 00 buspirone 5 2019-0 No 1mg mg tablet 05-17 00:00: 00 trazodone 2019-0 No 1mg 100 mg 4-09 tablet 00:00: 00 Prozac 10 2019-0 No 1mg mg capsule 05-17 00:00: 00 Lamictal 2019-0 No 1mg 100 mg 4-09 tablet 00:00: 00 buspirone 5 2019-0 No 1mg mg tablet 4 00:00: 00 trazodone 2019-0 No 1mg 100 mg 4-09 tablet 00:00: 00 Prozac 10 2019-0 No 1mg mg capsule 4- 00:00: 00 Lamictal 2019-0 No 1mg 100 [...] mg 1-27 tablet 00:00: 00 aspirin 81 2018-1 No 1mg mg 1-27 tablet,gena 00:00: yed [...] mcg/actuati 00 on solution for inhalation Advair 2018-1 No 1mcg/do Diskus 250 1-05 se mcg-50 [...] No Univers medications ity of [facility] Vital Signs Vital Name Observation Time Observation Value Comments Source Systolic blood 2019-12-30 135 mm[Hg] University pressure 17:24:00 [facility] Diastolic blood 2019-12-30 72 mm[Hg] [place] o f pressure 17:24:00 [facility] Heart rate 2019-12-30 78 /min [facility] 17:24:00 [facility] Body temperature 2019-12-30 35.61 Annemarie [facility] 17:24:00 [facility] Respiratory rate 2019-12-30 18 /min [facility] 17:24:00 [facility] Oxygen saturation 2019-12-30 91 /min [facility] in Arterial blood 17:24:00 [facility] by Pulse oximetry [place] Body weight 2019-12-30 57.924 kg pt's actual wt University of 10:03:00 on regular [place] Medical scale Branch BMI 2019-12-30 20.61 kg/m2 University of 10:03:00 [place] [facility] [place] Body height 2019-12-29 167.6 cm University of 20:18:00 [facility] Systolic blood 2019-12-30 135 mm[Hg] University of pressure 17:24:00 [facility] Diastolic blood 2019-12-30 72 mm[Hg] University o f pressure 17:24:00 [facility] Heart rate 2019-12-30 78 /min University of 17:24:00 [facility] Body temperature 2019-12-30 35.61 Annemarie University of 17:24:00 [facility] Respiratory rate 2019-12-30 18 /min University of 17:24:00 [facility] Oxygen saturation 2019-12-30 91 /min University of in Arterial blood 17:24:00 [facility] piedad by Pulse oximetry Branch Body weight 2019-12-30 57.924 kg pt's actual wt University of 10:03:00 on regular [place] Medical scale Branch BMI 2019-12-30 20.61 kg/m2 University of 10:03:00 [facility] Body height 2019-12-29 167.6 cm University of 20:18:00 [facility] Systolic blood 2019-07-27 120 mm[Hg] University of pressure 21:35:00 [facility] Diastolic blood 2019-07-27 79 mm[Hg] University o f pressure 21:35:00 [facility] Heart rate 2019-07-27 93 /min University of :35:00 [facility] Respiratory rate 2019-07-27 12 /min University of :35:00 [facility] Oxygen saturation 2019-07-27 95 /min University of in Arterial blood 21:35:00 [place] Medi piedad by Pulse oximetry Branch Body temperature 2019-07-27 37.5 Annemarie University of 21:15:00 [place] [facility] Body height 2019-07-27 167.6 cm University of 21:15:00 [facility] Body weight 2019-07-27 55.792 kg University of 21:15:00 [facility] BMI 2019-07-27 19.85 kg/m2 University of 21:15:00 [facility] Systolic blood 2019-07-27 120 mm[Hg] University of pressure 21:35:00 [place] [facility] Diastolic blood 2019-07-27 79 mm[Hg] [place] o f pressure 21:35:00 [facility] Heart rate 2019-07-27 93 /min University 21:35:00 [facility] Respiratory rate 2019-07-27 12 /min University of 21:35:00 [facility] Oxygen saturation 2019-07-27 95 /min [facility] Arterial blood 21:35:00 [facility] by Pulse oximetry [place] Body temperature 2019-07-27 37.5 Annemarie [facility] 21:15:00 [facility] Body height 2019-07-27 167.6 cm [facility] 21:15:00 [facility] Body weight 2019-07-27 55.792 kg [facility] 21:15:00 [facility] BMI 2019-07-27 19.85 kg/m2 [facility] 21:15:00 [facility] BP Systolic 2021-12-05 137 mm[Hg] 13:31:00 [...] 2021-07-17 15:08:00 Heart rate 2021-07-16 93 /min [facility] 17:12:00 Hospital Systolic blood 2021-07-16 156 mm[Hg] [facility] pressure 16:50:46 Hospital Diastolic blood 2021-07-16 83 mm[Hg] [facility] pressure 16:50:46 Hospital Body temperature 2021-07-16 36.72 [facility] 16:50:46 Hospital Respiratory rate 2021-07-16 20 /min [facility] 16:50:46 Hospital Oxygen saturation 2021-07-16 100 /min [facility] in Arterial blood 16:50:46 Hospital by Pulse [...] Date / Time Performing Clinician Source Performed REFERRAL- 2022-11-19 05:01:00 Doctor Unassigned, Isela Barger [facility] REQUEST/RESPONSE Name Medical Branch POC GLUCOSE 2021-07-16 16:04:00 [facility]un [facility] POC GLUCOSE 2021-07-16 13:06:00 [facility] HEMOGLOBIN A1C 2021-07-16 10:38:00 Hyun [facility] POC GLUCOSE 2021-07-16 02:40:00 [facility]un [facility] POC GLUCOSE 2021-07-15 21:28:00 [facility] POC GLUCOSE 2021-07-15 18:04:00 Hyun [facility] LACTIC ACID LEVEL, 2021-07-15 14:19:00 Colette Izaguirre [facility] SEPSIS - NOW AND REPEAT 2X EVERY 3 HOURS POC GLUCOSE 2021-07-15 14:05:00 Hyun [facility] LACTIC ACID LEVEL, 2021-07-15 11:47:00 [facility] - NOW AND REPEAT 2X EVERY 3 HOURS ECG 12-LEAD 2021-07-15 09:34:19 [facility] VW PORTABLE 2021-07-15 08:37:27 Colette [facility] ZZCOVID-19 ANTI-SPIKE 2021-07-15 08:35:00 Sozi, [facility] IGG ANTIBODY TITER ZZCOVID-19 SEROLOGY 2021-07-15 08:35:00 Zina [facility] PATIENT SURVEILLANCE LACTIC ACID LEVEL, 2021-07-15 08:35:00 Zina [facility] SEPSIS - NOW AND REPEAT 2X EVERY 3 HOURS CBC WITH PLATELET AND 2021-07-15 08:35:00 Zina [facility] DIFFERENTIAL COMPREHENSIVE METABOLIC 2021-07-15 08:35:00 [facility] PANEL TROPONIN T 2021-07-15 08:35:00 [facility] ESTIMATED GFR 2021-07-15 08:35:00 [facility] EXTERNAL PROVIDER 2020-01-17 06:01:00 Doctor Unassigned, [facility] RECORDS Name Medical Branch POCT GLUCOSE (AUTOMATED) 2019-12-30 15:25:00 Lexy Monae Un iversity [facility] MAGNESIUM 2019-12-30 10:10:00 [facility] BASIC METABOLIC PANEL 2019-12-30 10:10:00 [facility] (NA, K, CL, CO2, Medical Branch GLUCOSE, BUN, CREATININE, CA) CBC WITH DIFF 2019-12-30 10:10:00 [facility] POCT GLUCOSE (AUTOMATED) 2019-12-30 01:50:00 Lexy Monae [facility] POCT GLUCOSE (AUTOMATED) 2019-12-29 23:32:00 Lexy Monae [facility] HB ECG ROUTINE & RHYTHM 2019-12-29 14:11:36 Mariya [facility] POCT GLUCOSE (AUTOMATED) 2019-12-29 14:00:00 Lexy Monae Un iversity [facility] MAGNESIUM 2019-12-29 10:58:[address] [facility] BASIC METABOLIC PANEL 2019-12-29 10:58:00 Efrain Meraz [facility] (NA, K, CL, CO2, Medical Branch GLUCOSE, BUN, CREATININE, CA) ACTIVATED PARTIAL 2019-12-29 10:58:00 Mariya [facility] EXTERNAL PROVIDER 2019-12-29 06:01:00 Doctor Unassigned, No [facility] RECORDS Name Medical Branch POCT GLUCOSE (AUTOMATED) 2019-12-29 04:16:00 Lexy Monae [facility] Meghan Epperson [facility] Medical Bran ch ACTIVATED PARTIAL 2019-12-29 00:06:00 Mariya [facility] TROPONIN I 2019-12-28 19:46:00 Jesus Paz [facility] LIPID PANEL 2019-12-28 19:46:00 Mariya [facility] ([id number])(TOTAL [facility] CHOLESTEROL, TRIGLYCERIDES, HDL) ECHO ROUTINE W/DOPPLER 2019-12-28 16:44:30 Efrain Meraz [facility] HB ECG ROUTINE & RHYTHM 2019-12-28 13:42:07 Mariya [facility] PROTHROMBIN TIME / INR 2019-12-28 12:24:00 Mariya [facility] ACTIVATED PARTIAL 2019-12-28 12:24:00 Mariya [facility] TROPONIN I 2019-12-28 10:08:[address] [facility] CT CHEST PULMONARY 2019-12-28 04:44:55 Minna Mike [facility] ANGIOGRAM Medical Branch XR CHEST 1 VW 2019-12-28 02:07:34 Minna Mike [facility] COVID-19 (ID NOW RAPID 2019-12-28 01:50:00 Minna Mike [facility] TESTING) Medical Branch HB ECG ROUTINE & RHYTHM 2019-12-28 01:49:31 Minna Mike [facility] TROPONIN I 2019-12-28 01:49:00 Minna Mike [facility] THYROID STIMULATING 2019-12-28 01:49:00 Efrain Meraz [facility] HORMONE Medical Branch BASIC METABOLIC PANEL 2019-12-28 01:49:00 Minna Mike [facility] (NA, K, CL, CO2, Medical Branch GLUCOSE, BUN, CREATININE, CA) COMP. METABOLIC PANEL 2019-12-28 01:49:00 Minna Mike [facility] ([id number]) Medical Branch CBC WITH DIFF 2019-12-28 01:49:00 Minna Mike [facility] GLYCOSYLATED HEMOGLOBIN 2019-12-28 01:49:00 [facility] N-TERMINAL PRO-BNP 2019-12-28 01:49:00 Mariya [facility] XR CHEST 1 VW 2019-07-27 22:14:30 Soila Vill[facility] COVID-19 (ID NOW RAPID 2019-07-27 21:43:00 Soila Villar [facility] TESTING) Medical Branch TROPONIN I 2019-07-27 21:38:00 Soila Villar [facility] HEPATIC FUNCTION PANEL 2019-07-27 21:38:00 Soila Villar [facility] ([id number]) (ALB,T.PRO,BILI Medical Branch T,BU/BC,ALT,AST,ALK PHOS) BASIC METABOLIC PANEL 2019-07-27 21:38:00 Soila Villar [facility] (NA, K, CL, CO2, Medical Branch GLUCOSE, BUN, CREATININE, CA) CBC WITH DIFFERENTIAL 2019-07-27 21:38:00 Soila Villar [facility] PROTHROMBIN TIME / INR 2019-07-27 21:38:00 [facility] N-[facility]MIN[facility] PRO-BNP 2019-07-27 21:38:00 Soila Villar [facility] EKG-12 LEAD 2019-07-27 21:21:22 Soila Villar [facility] NOTICE OF PRIVACY 2019-07-27 20:58:21 Doctor Unassigned, No [facility] PRACTICES Name Medical Branch Plan of Care Planned Activity Planned Date Details Comments Source Future Scheduled 2022-11-19 Screening for [facility] Test 18:07:29 malignant neoplasm of colon (procedure) [code = 857537904] Future Scheduled 2022-11-19 Screening for [facility] Test 18:07:29 malignant neoplasm of colon (procedure) [code = 343970223] Future Scheduled 2022-11-19 Screening for [facility] Test 18:07:29 malignant neoplasm of colon (procedure) [code = 470081811] Future Scheduled 2022-11-19 COVID-19 [facility]ACC[facility] (#[facility] Test 18:07:29 [code = COVID-19 VACCINE (#1)] Future Scheduled 2022-11-19 65+ PNEUMOCOCCAL [facility] Test 18:07:29 VACCINE (1 - PCV) [code = 65+ PNEUMOCOCCAL VACCINE (1 - PCV)] Future Scheduled 2022-11-19 [facility] screening [facility] Test 18:07:29 (procedure) [code = 607702917] Future Scheduled 2022-11-19 BREAST CANCER [facility] Test 18:07:29 SCREENING [code = BREAST CANCER SCREENING] Future Scheduled 2022-11-19 Screening for [facility] Test 18:07:29 malignant neoplasm of colon (procedure) [code = 319443816] Future Scheduled 2022-11-19 Screening for [facility] Test 18:07:29 malignant neoplasm of colon (procedure) [code = 318800966] Future Scheduled 2022-11-19 SHINGLES VACCINES ([address] [facility] Test 18:07:29 of 2) [code = SHINGLES VACCINES (1 of 2)] Future Scheduled 2022-11-19 RSV VACCINES > [address] [facility] Test 18:07:29 (1 - 1-dose 60+ series) [code = RSV VACCINES > 60 YR (1 - 1-dose 60+ series)] Future Scheduled 2022-11-19 INFLUENZA VACCINE (#1) [facility] Test 18:07:29 [code = INFLUENZA VACCINE (#1)] Future Scheduled 2022-11-19 Screening for [facility] Test 11:05:11 malignant neoplasm of colon (procedure) [code = 875509166] Future Scheduled 2022-11-19 Screening for [facility] Test 11:05:11 malignant neoplasm of colon (procedure) [code = 807145400] Future Scheduled 2022-11-19 Screening for [facility] Test 11:05:11 malignant neoplasm of colon (procedure) [code = 898308355] Future Scheduled 2022-11-19 COVID-19 VACCINE (#1) [facility] Test 11:05:11 [code = COVID-19 VACCINE (#1)] Future Scheduled 2022-11-19 65+ PNEUMOCOCCAL [facility] Test 11:05:11 VACCINE (1 - PCV) [code = 65+ PNEUMOCOCCAL VACCINE (1 - PCV)] Future Scheduled 2022-11-19 Hep[facility] screening [facility] Test 11:05:11 (procedure) [code = 549732486] Future Scheduled 2022-11-19 BREAST CANCER [facility] Test 11:05:11 SCREENING [code = BREAST CANCER SCREENING] Future Scheduled 2022-11-19 Screening for [facility] Test 11:05:11 malignant neoplasm of colon (procedure) [code = 249101131] Future Scheduled 2022-11-19 Screening for [facility] Test 11:05:11 malignant neoplasm of colon (procedure) [code = 106364839] Future Scheduled 2022-11-19 SHINGLES VACCINES (1 Met [facility] Test 11:05:11 of 2) [code = SHINGLES VACCINES (1 of 2)] Future Scheduled 2022-11-19 INFLUENZA VACCINE (#1) [facility] Test 11:05:11 [code = INFLUENZA VACCINE (#1)] Future Scheduled 2022-11-19 Screening for [facility] Test 11:05:11 malignant neoplasm of colon (procedure) [code = 083594504] Future Scheduled 2022-11-19 Screening for [facility] Test 11:05:11 malignant neoplasm of colon (procedure) [code = 196227121] Future Scheduled 2022-11-19 Screening for [facility] Test 11:05:11 malignant neoplasm of colon (procedure) [code = 190714714] Future Scheduled 2022-11-19 COVID-19 VACCINE (#1) [facility] Test 11:05:11 [code = COVID-19 VACCINE (#1)] Future Scheduled 2022-11-19 65+ PNEUMOCOCCAL [facility] Test 11:05:11 VACCINE (1 - PCV) [code = 65+ PNEUMOCOCCAL VACCINE (1 - PCV)] Future Scheduled 2022-11-19 [facility] screening [facility] Test 11:05:11 (procedure) [code = 872556987] Future Scheduled 2022-11-19 BREAST CANCER [facility] Test 11:05:11 SCREENING [code = BREAST CANCER SCREENING] Future Scheduled 2022-11-19 Screening for [facility] Test 11:05:11 malignant neoplasm of colon (procedure) [code = 348305960] Future Scheduled 2022-11-19 [facility] Test 11:05:11 malignant neoplasm of colon (procedure) [code = 434164388] Future Scheduled 2022-11-19 SHINGLES VACCINES (1 [facility] Test 11:05:11 of 2) [code = SHINGLES VACCINES (1 of 2)] Future Scheduled 2022-11-19 INFLUENZA VACCINE (#1) [facility] Test 11:05:11 [code = INFLUENZA VACCINE (#1)] Future Scheduled 2022-11-19 Screening for [facility] Test 11:05:11 malignant neoplasm of colon (procedure) [code = 981534088] Future Scheduled 2022-11-19 Screening for [facility] Test 11:05:11 malignant neoplasm of colon (procedure) [code = 773873503] Future Scheduled 2022-11-19 Screening for [facility] Test 11:05:11 malignant neoplasm of colon (procedure) [code = 393399171] Future Scheduled 2022-11-19 COVID-19 VACCINE (#1) [facility] Test 11:05:11 [code = COVID-19 VACCINE (#1)] Future Scheduled 2022-11-19 65+ PNEUMOCOCCAL [facility] Test 11:05:11 VACCINE (1 - PCV) [code = 65+ PNEUMOCOCCAL VACCINE (1 - PCV)] Future Scheduled 2022-11-19 [facility] Test 11:05:11 (procedure) [code = 047088176] Future Scheduled 2022-11-19 BREAST CANCER [facility] Test 11:05:11 SCREENING [code = BREAST CANCER SCREENING] Future Scheduled 2022-11-19 Screening for [facility] Test 11:05:11 malignant neoplasm of colon (procedure) [code = 202993690] Future Scheduled 2022-11-19 Screening for [facility] Test 11:05:11 malignant neoplasm of colon (procedure) [code = 847120437] Future Scheduled 2022-11-19 SHINGLES VACCINES (1 [facility] Test 11:05:11 of 2) [code = SHINGLES VACCINES (1 of 2)] Future Scheduled 2022-11-19 INFLUENZA VACCINE (#1) [facility] Test 11:05:11 [code = INFLUENZA VACCINE (#1)] Future Scheduled 2022-11-06 [facility] Test 11:26:32 malignant neoplasm of colon (procedure) [code = 409900435] Future Scheduled 2022-11-06 Screening for [facility] Test 11:26:32 malignant neoplasm of colon (procedure) [code = 982347225] Future Scheduled 2022-11-06 Screening for [facility] Test 11:26:32 malignant neoplasm of colon (procedure) [code = 296147421] Future Scheduled 2022-11-06 COVID-19 VACCINE (#1) [facility] 11:26:32 [code = COVID-19 VACCINE (#1)] Future Scheduled 2022-11-06 65+ PNEUMOCOCCAL [facility] Test 11:26:32 VACCINE (1 - PCV) [code = 65+ PNEUMOCOCCAL VACCINE (1 - PCV)] Future Scheduled 2022-11-06 [facility] Test 11:26:32 (procedure) [code = 547388143] Future Scheduled 2022-11-06 BREAST CANCER [facility] Test 11:26:32 SCREENING [code = BREAST CANCER SCREENING] Future Scheduled 2022-11-06 Screening for [facility] Test 11:26:32 malignant neoplasm of colon (procedure) [code = 615056197] Future Scheduled 2022-11-06 Screening for [facility] Test 11:26:32 malignant neoplasm of colon (procedure) [code = 176729892] Future Scheduled 2022-11-06 SHINGLES VACCINES (1 [facility] Test 11:26:32 of 2) [code = SHINGLES VACCINES (1 of 2)] Future Scheduled 2022-11-06 INFLUENZA VACCINE (#1) [facility] Test 11:26:32 [code = INFLUENZA VACCINE (#1)] Future Scheduled 2022-09-14 Screening for [facility] Test 11:51:38 malignant neoplasm of colon (procedure) [code = 312461999] Future Scheduled 2022-09-14 Screening for [facility] Test 11:51:38 malignant neoplasm of colon (procedure) [code = 371853182] Future Scheduled 2022-09-14 [facility] Test 11:51:38 malignant neoplasm of colon (procedure) [code = 215866079] Future Scheduled 2022-09-14 COVID-19 VACCINE (#1) [facility] Test 11:51:38 [code = COVID-19 VACCINE (#1)] Future Scheduled 2022-09-14 65+ PNEUMOCOCCAL [facility] Test 11:51:38 VACCINE (1 - PCV) [code = 65+ PNEUMOCOCCAL VACCINE (1 - PCV)] Future Scheduled 2022-09-14 Hep[facility] C screening [facility] Test 11:51:38 (procedure) [code = 199849482] Future Scheduled 2022-09-14 BREAST CANCER [facility] Test 11:51:38 SCREENING [code = BREAST CANCER SCREENING] Future Scheduled 2022-09-14 Screening for [facility] Test 11:51:38 malignant neoplasm of colon (procedure) [code = 206335926] Future Scheduled 2022-09-14 Screening for [facility] Test 11:51:38 malignant neoplasm of colon (procedure) [code = 449375797] Future Scheduled 2022-09-14 SHINGLES VACCINES (1 [facility] Test 11:51:38 of 2) [code = SHINGLES VACCINES (1 of 2)] Future Scheduled 2022-09-14 ZZZ INFLUENZA VACCINE [facility] Test 11:51:38 [code = ZZZ INFLUENZA VACCINE] Future Scheduled 2022-08-30 Screening for [facility] Test 14:29:34 malignant neoplasm of colon (procedure) [code = 603278788] Future Scheduled 2022-08-30 [facility] Test 14:29:34 malignant neoplasm of colon (procedure) [code = 252679709] Future Scheduled 2022-08-30 Screening for [facility] Test 14:29:34 malignant neoplasm of colon (procedure) [code = 665624043] Future Scheduled 2022-08-30 COVID-19 VACCINE (#1) [facility] Test 14:29:34 [code = COVID-19 VACCINE (#1)] Future Scheduled 2022-08-30 65+ PNEUMOCOCCAL [facility] Test 14:29:34 VACCINE (1 - PCV) [code = 65+ PNEUMOCOCCAL VACCINE (1 - PCV)] Future Scheduled 2022-08-30 [facility] C screening [facility] Test 14:29:34 (procedure) [code = 730123091] Future Scheduled 2022-08-30 BREAST CANCER [facility] Test 14:29:34 SCREENING [code = BREAST CANCER SCREENING] Future Scheduled 2022-08-30 [facility] Test 14:29:34 malignant neoplasm of colon (procedure) [code = 133740603] Future Scheduled 2022-08-30 [facility] Test 14:29:34 malignant neoplasm of colon (procedure) [code = 568012380] Future Scheduled 2022-08-30 SHINGLES VACCINES (1 Met [facility] Test 14:29:34 of 2) [code = SHINGLES VACCINES (1 of 2)] Future Scheduled 2022-08-30 INFLUENZA VACCINE [facility] Test 14:29:34 [code = INFLUENZA VACCINE] Future Scheduled 2022-08-30 Screening for [facility] Test 14:29:34 malignant neoplasm of colon (procedure) [code = 544799665] Future Scheduled 2022-08-30 Screening for [facility] Test 14:29:34 malignant neoplasm of colon (procedure) [code = 201778875] Future Scheduled 2022-08-30 Screening for [facility] Test 14:29:34 malignant neoplasm of colon (procedure) [code = 334026106] Future Scheduled 2022-08-30 COVID-19 VACCINE (#1) [facility] Test 14:29:34 [code = COVID-19 VACCINE (#1)] Future Scheduled 2022-08-30 65+ PNEUMOCOCCAL [facility] Test 14:29:34 VACCINE (1 - PCV) [code = 65+ PNEUMOCOCCAL VACCINE (1 - PCV)] Future Scheduled 2022-08-30 [facility] Test 14:29:34 (procedure) [code = 952830508] Future Scheduled 2022-08-30 BREAST CANCER [facility] Test 14:29:34 SCREENING [code = BREAST CANCER SCREENING] Future Scheduled 2022-08-30 Screening for [facility] Test 14:29:34 malignant neoplasm of colon (procedure) [code = 150656037] Future Scheduled 2022-08-30 [facility] Test 14:29:34 malignant neoplasm of colon (procedure) [code = 551201568] Future Scheduled 2022-08-30 SHINGLES VACCINES ([facility] 14:29:34 of 2) [code = SHINGLES VACCINES (1 of 2)] Future Scheduled 2022-08-30 [facility]INE [facility] 14:29:34 [code = INFLUENZA VACCINE] Future Scheduled 2022-07-27 [facility] Test 18:12:02 malignant neoplasm of colon (procedure) [code = 618620227] Future Scheduled 2022-07-27 [facility] Test 18:12:02 malignant neoplasm of colon (procedure) [code = 195115642] Future Scheduled 2022-07-27 [facility] Test 18:12:02 malignant neoplasm of colon (procedure) [code = 701783862] Future Scheduled 2022-07-27 COVID-19 VACCINE (#1) [facility] Test 18:12:02 [code = COVID-19 VACCINE (#1)] Future Scheduled 2022-07-27 65+ [facility] 18:12:02 VACCINE (1 - PCV) [code = 65+ PNEUMOCOCCAL VACCINE (1 - PCV)] Future Scheduled 2022-07-27 [facility] Test 18:12:02 (procedure) [code = 552308244] Future Scheduled 2022-07-27 BREAST CANCER [facility] Test 18:12:02 SCREENING [code = BREAST CANCER SCREENING] Future Scheduled 2022-07-27 [facility] Test 18:12:02 malignant neoplasm of colon (procedure) [code = 055898778] Future Scheduled 2022-07-27 [facility] Test 18:12:02 malignant neoplasm of colon (procedure) [code = 607591129] Future Scheduled 2022-07-27 SHINGLES VACCINES (1 [facility] 18:12:02 of 2) [code = SHINGLES VACCINES (1 of 2)] Future Scheduled 2022-07-27 [facility]ZA [facility]ACCINE [facility] 18:12:02 [code = INFLUENZA VACCINE] Future Scheduled 2022-07-27 [facility] Test 18:12:02 malignant neoplasm of colon (procedure) [code = 963204045] Future Scheduled 2022-07-27 [facility] Test 18:12:02 malignant neoplasm of colon (procedure) [code = 473912833] Future Scheduled 2022-07-27 [facility] Test 18:12:02 malignant neoplasm of colon (procedure) [code = 806239580] Future Scheduled 2022-07-27 COVID-19 VACCINE (#1) [facility] Test 18:12:02 [code = COVID-19 VACCINE (#1)] Future Scheduled 2022-07-27 65+ [facility]AL [facility] 18:12:02 VACCINE (1 - PCV) [code = 65+ PNEUMOCOCCAL VACCINE (1 - PCV)] Future Scheduled 2022-07-27 [facility] Test 18:12:02 (procedure) [code = 469891904] Future Scheduled 2022-07-27 BREAST CANCER [facility] Test 18:12:02 SCREENING [code = BREAST CANCER SCREENING] Future Scheduled 2022-07-27 [facility] Test 18:12:02 malignant neoplasm of colon (procedure) [code = 234289726] Future Scheduled 2022-07-27 [facility] Test 18:12:02 malignant neoplasm of colon (procedure) [code = 604565436] Future Scheduled 2022-07-27 SHINGLES VACCINES (1 [facility] 18:12:02 of 2) [code = SHINGLES VACCINES (1 of 2)] Future Scheduled 2022-07-27 INFLUENZA VACCINE [facility] Test 18:12:02 [code = INFLUENZA VACCINE] Future Scheduled 2022-07-27 [facility] Test 18:12:02 malignant neoplasm of colon (procedure) [code = 093854799] Future Scheduled 2022-07-27 [facility] Test 18:12:02 malignant neoplasm of colon (procedure) [code = 155261938] Future Scheduled 2022-07-27 [facility] Test 18:12:02 malignant neoplasm of colon (procedure) [code = 551513692] Future Scheduled 2022-07-27 COVID-19 VACCINE (#1) [facility] Test 18:12:02 [code = COVID-19 VACCINE (#1)] Future Scheduled 2022-07-27 65+ [facility]AL [facility] 18:12:02 VACCINE (1 - PCV) [code = 65+ PNEUMOCOCCAL VACCINE (1 - PCV)] Future Scheduled 2022-07-27 Hepatitis C screening [facility] Test 18:12:02 (procedure) [code = 643823053] Future Scheduled 2022-07-27 BREAST CANCER [facility] Test 18:12:02 SCREENING [code = BREAST CANCER SCREENING] Future Scheduled 2022-07-27 [facility] Test 18:12:02 malignant neoplasm of colon (procedure) [code = 967609427] Future Scheduled 2022-07-27 [facility] Test 18:12:02 malignant neoplasm of colon (procedure) [code = 823158000] Future Scheduled 2022-07-27 SHINGLES VACCINES ([address] [facility] Test 18:12:02 of 2) [code = SHINGLES VACCINES (1 of 2)] Future Scheduled 2022-07-27 INFLUENZA VACCINE [facility] Test 18:12:02 [code = INFLUENZA VACCINE] Future Scheduled 2022-05-27 COVID-19 VACCINE (#1) [facility] Test 11:13:43 [code = COVID-19 VACCINE (#1)] Future Scheduled 2022-05-27 65+ [facility] 11:13:43 VACCINE (1 - PCV) [code = 65+ PNEUMOCOCCAL VACCINE (1 - PCV)] Future Scheduled 2022-05-27 Hepatitis C screening [facility] Test 11:13:43 (procedure) [code = 520273926] Future Scheduled 2022-05-27 BREAST [facility]CER [facility] Test 11:13:43 SCREENING [code = BREAST CANCER SCREENING] Future Scheduled 2022-05-27 COLONOSCOPY SCREENING [facility] Test 11:13:43 [code = COLONOSCOPY SCREENING] Future Scheduled 2022-05-27 SHINGLES VACCINES (1 Met [facility] Test 11:13:43 of 2) [code = SHINGLES VACCINES (1 of 2)] Future Scheduled 2022-05-27 INFLUENZA VACCINE [facility] Test 11:13:43 [code = INFLUENZA VACCINE] Future Scheduled 2022-05-27 COVID-19 VACCINE (#1) [facility] Test 11:13:43 [code = COVID-19 VACCINE (#1)] Future Scheduled 2022-05-27 65+ PNEUMOCOCCAL [facility] Test 11:13:43 VACCINE (1 - PCV) [code = 65+ PNEUMOCOCCAL VACCINE (1 - PCV)] Future Scheduled 2022-05-27 Hepatitis C screening [facility] Test 11:13:43 (procedure) [code = 460220606] Future Scheduled 2022-05-27 BREAST [facility]ER [facility] Test 11:13:43 SCREENING [code = BREAST CANCER SCREENING] Future Scheduled 2022-05-27 COLONOSCOPY SCREENING [facility] Test 11:13:43 [code = COLONOSCOPY SCREENING] Future Scheduled 2022-05-27 SHINGLES VACCINES (1 Met [facility] Test 11:13:43 of 2) [code = SHINGLES VACCINES (1 of 2)] Future Scheduled 2022-05-27 INFLUENZA VACCINE [facility] Test 11:13:43 [code = INFLUENZA VACCINE] Future Scheduled 2022-01-20 COVID-19 VACCINE (#1) [facility] Test 11:08:40 [code = COVID-19 VACCINE (#1)] Future Scheduled 2022-01-20 65+ P[facility]UMOCOCCAL [facility] Test 11:08:40 VACCINE (1 - PCV) [code = 65+ PNEUMOCOCCAL VACCINE (1 - PCV)] Future Scheduled 2022-01-20 Hepatitis C screening [facility] Test 11:08:40 (procedure) [code = [id number]] Future Scheduled 2022-01-20 [facility] Test 11:08:40 SCREENING [code = BREAST CANCER SCREENING] Future Scheduled 2022-01-20 COLONOSCOPY SCREENING [facility] Test 11:08:40 [code = COLONOSCOPY SCREENING] Future Scheduled 2022-01-20 SHINGLES VACCINES (1 [facility] Test 11:08:40 of 2) [code = SHINGLES VACCINES (1 of 2)] Future Scheduled 2022-01-20 [facility] 11:08:40 [code = INFLUENZA VACCINE] Future Scheduled 2022-01-20 COVID-19 VACCINE (#1) [facility] Test 11:08:40 [code = COVID-19 VACCINE (#1)] Future Scheduled 2022-01-20 65+ P[facility]UMOCOCCAL [facility] Test 11:08:40 VACCINE (1 - PCV) [code = 65+ PNEUMOCOCCAL VACCINE (1 - PCV)] Future Scheduled 2022-01-20 Hepatitis C screening [facility] Test 11:08:40 (procedure) [code = [id number]] Future Scheduled 2022-01-20 BRE[facility] Test 11:08:40 SCREENING [code = BREAST CANCER SCREENING] Future Scheduled 2022-01-20 COLONOSCOPY SCREENING [facility] Test 11:08:40 [code = COLONOSCOPY SCREENING] Future Scheduled 2022-01-20 SHINGLES VACCINES (1 [facility] Test 11:08:40 of 2) [code = SHINGLES VACCINES (1 of 2)] Future Scheduled 2022-01-20 [facility]ZA VACCINE [facility] 11:08:40 [code = INFLUENZA VACCINE] Future Scheduled 2022-01-20 COVID-19 VACCINE (#1) [facility] Test 11:08:40 [code = COVID-19 VACCINE (#1)] Future Scheduled 2022-01-20 65+ P[facility]UMOCOCCAL [facility] Test 11:08:40 VACCINE (1 - PCV) [code = 65+ PNEUMOCOCCAL VACCINE (1 - PCV)] Future Scheduled 2022-01-20 Hepatitis C screening [facility] Test 11:08:40 (procedure) [code = [id number]] Future Scheduled 2022-01-20 [facility] Test 11:08:40 SCREENING [code = BREAST CANCER SCREENING] Future Scheduled 2022-01-20 COLONOSCOPY SCREENING [facility] Test 11:08:40 [code = COLONOSCOPY SCREENING] Future Scheduled 2022-01-20 SHINGLES VACCINES (1 [facility] Test 11:08:40 of 2) [code = SHINGLES VACCINES (1 of 2)] Future Scheduled 2022-01-20 [facility] 11:08:40 [code = INFLUENZA VACCINE] Future Scheduled 2021-12-09 HEPATITIS B VACCINES [facility] Test 11:50:42 (1 of 3 - 3-dose series) [code = HEPATITIS B VACCINES (1 of 3 - 3-dose series)] Future Scheduled 2021-12-09 COVID-19 VACCINE (#1) [facility] Test 11:50:42 [code = COVID-19 VACCINE (#1)] Future Scheduled 2021-12-09 65+ [facility]OCOCCAL [facility] Test 11:50:42 VACCINE (1 - PCV) [code = 65+ PNEUMOCOCCAL VACCINE (1 - PCV)] Future Scheduled 2021-12-09 [facility] screening [facility] Test 11:50:42 (procedure) [code = 376890620] Future Scheduled 2021-12-09 Screening for [facility] Test 11:50:42 malignant neoplasm of cervix (procedure) [code = 143859777] Future Scheduled 2021-12-09 BREAST CANCER [facility] Test 11:50:42 SCREENING [code = BREAST CANCER SCREENING] Future Scheduled 2021-12-09 COLONOSCOPY SCREENING [facility] Test 11:50:42 [code = COLONOSCOPY SCREENING] Future Scheduled 2021-12-09 SHINGLES VACCINES ([address] [facility] Test 11:50:42 of 2) [code = SHINGLES VACCINES (1 of 2)] Future Scheduled 2021-12-09 INFLUENZA VACCINE Method [facility] Test 11:50:42 [code = INFLUENZA VACCINE] Future Scheduled 2021-10-11 HEPATITIS B VACCINES Met [facility] Test 10:23:54 (1 of 3 - 3-dose series) [code = HEPATITIS B VACCINES (1 of 3 - 3-dose series)] Future Scheduled 2021-10-11 COVID-19 VACCINE (#1) [facility] Test 10:23:54 [code = COVID-19 VACCINE (#1)] Future Scheduled 2021-10-11 65+ PNEUMOCOCCAL [facility] Test 10:23:54 VACCINE (1 - PCV) [code = 65+ PNEUMOCOCCAL VACCINE (1 - PCV)] Future Scheduled 2021-10-11 Hepatitis C screening [facility] Test 10:23:54 (procedure) [code = 862502019] Future Scheduled 2021-10-11 Screening for [facility] Test 10:23:54 malignant neoplasm of cervix (procedure) [code = 890783359] Future Scheduled 2021-10-11 BREAST CANCER [facility] Test 10:23:54 SCREENING [code = BREAST CANCER SCREENING] Future Scheduled 2021-10-11 COLONOSCOPY SCRE[facility]ING [facility] Test 10:23:54 [code = COLONOSCOPY SCREENING] Future Scheduled 2021-10-11 SHINGLES VACCINES ([address] [facility] Test 10:23:54 of 2) [code = SHINGLES VACCINES (1 of 2)] Future Scheduled 2021-10-11 INFLUENZA VACCINE Method [facility] Test 10:23:54 [code = INFLUENZA VACCINE] Future Scheduled 2021-10-11 HEPATITIS B VACCINES Met [facility] Test 10:23:54 (1 of 3 - 3-dose series) [code = HEPATITIS B VACCINES (1 of 3 - 3-dose series)] Future Scheduled 2021-10-11 COVID-19 VACCINE (#1) [facility] Test 10:23:54 [code = COVID-19 VACCINE (#1)] Future Scheduled 2021-10-11 65+ PNEUMOCOCCAL [facility] Test 10:23:54 VACCINE (1 - PCV) [code = 65+ PNEUMOCOCCAL VACCINE (1 - PCV)] Future Scheduled 2021-10-11 [facility] C screening [facility] Test 10:23:54 (procedure) [code = 485315463] Future Scheduled 2021-10-11 Screening for [facility] Test 10:23:54 malignant neoplasm of cervix (procedure) [code = 966914962] Future Scheduled 2021-10-11 BREAST CANCER [facility] Test 10:23:54 SCREENING [code = BREAST CANCER SCREENING] Future Scheduled 2021-10-11 COLONOSCOPY SCREENING [facility] Test 10:23:54 [code = COLONOSCOPY SCREENING] Future Scheduled 2021-10-11 SHINGLES VACCINES ([address] [facility] Test 10:23:54 of 2) [code = SHINGLES VACCINES (1 of 2)] Future Scheduled 2021-10-11 INFLUENZA VACCINE [facility] Test 10:23:54 [code = INFLUENZA VACCINE] Goal Plan of Care Note [code = 73327-5] Goal Plan of Care Note [code = 24018-1] Goal Plan of Care Note [code = 77816-4] Goal Plan of Care Note [code = 36070-4] Goal Plan of Care Note [code = 82822-2] Goal Plan of Care Note [code = 55690-3] Goal Plan of Care Note [code = 27498-1] Goal Plan of Care Note [code = 49147-2] Goal Plan of Care Note [code = 07493-3] Goal Plan of Care Note [code = 69018-0] Goal Plan of Care Note [code = 82708-3] Goal Plan of Care Note [code = 54138-7] Goal Plan of Care Note [code = 05022-9] Goal Plan of Care Note [code = 00934-0] Goal Plan of Care Note [code = 49602-8] Goal Plan of Care Note [code = 28655-2] Goal Plan of Care Note [code = 77862-5] Goal Plan of Care Note [code = 33809-9] Goal Plan of Care Note [code = 87694-9] Goal Plan of Care Note [code = 61086-5] Goal Plan of Care Note [code = 02823-3] Goal Plan of Care Note [code = 28166-3] Goal Plan of Care Note [code = 15237-9] Goal Plan of Care Note [code = 69882-5] Goal Plan of Care Note [code = 61656-4] Goal Plan of Care Note [code = 77771-9] Goal Plan of Care Note [code = 40032-0] Goal Plan of Care Note [code = 05419-1] Goal Plan of Care Note [code = 31476-5] Goal Plan of Care Note [code = 47683-0] Goal Plan of Care Note [code = 80308-0] Goal Plan of Care Note [code = 57447-3] Goal Plan of Care Note [code = 55922-3] Goal Plan of Care Note [code = 95547-7] Goal Plan of Care Note [code = 93144-4] Goal Plan of Care Note [code = 18711-5] Goal Plan of Care Note [code = 89598-2] Goal Plan of Care Note [code = 01417-2] Goal Plan of Care Note [code = 80188-1] Goal Plan of Care Note [code = 92632-7] Goal Plan of Care Note [code = 61613-0] Goal Plan of Care Note [code = 69768-4] Goal Plan of Care Note [code = 25731-5] Goal Plan of Care Note [code = 23187-1] Goal Plan of Care Note [code = 48876-5] Goal Plan of Care Note [code = 71595-7] Goal Plan of Care Note [code = 65097-8] Goal Plan of Care Note [code = 73714-6] Goal Plan of Care Note [code = 92582-7] Goal Plan of Care Note [code = 97076-8] Goal Plan of Care Note [code = 96219-7] Goal Plan of Care Note [code = 75318-6] Goal Plan of Care Note [code = 51665-6] Goal Plan of Care Note [code = 81569-6] Goal Plan of Care Note [code = 75380-7] Goal Plan of Care Note [code = 80852-8] Goal Plan of Care Note [code = 06798-7] Goal Plan of Care Note [code = 23012-0] Goal Plan of Care Note [code = 55464-2] Goal Plan of Care Note [code = 84781-9] Goal Plan of Care Note [code = 64831-9] Goal Plan of Care Note [code = 04528-9] Goal Plan of Care Note [code = 91939-4] Goal Plan of Care Note [code = 51465-9] Goal Plan of Care Note [code = 37491-3] Goal Plan of Care Note [code = 94972-0] Goal Plan of Care Note [code = 51046-9] Goal Plan of Care Note [code = 03776-3] Goal Plan of Care Note [code = 65629-3] Goal Plan of Care Note [code = 15288-0] Goal Plan of Care Note [code = 03769-5] Goal Plan of Care Note [code = 35553-0] Goal Plan of Care Note [code = 24445-1] Goal Plan of Care Note [code = 53516-8] Goal Plan of Care Note [code = 30196-7] Goal Plan of Care Note [code = 96186-0] Goal Plan of Care Note [code = 58544-5] Goal Plan of Care Note [code = 28813-0] Goal Plan of Care Note [code = 83974-3] Goal Plan of Care Note [code = 92216-5] Goal Plan of Care Note [code = 38442-9] Goal Plan of Care Note [code = 49443-2] Goal Plan of Care Note [code = 16990-5] Goal Plan of Care Note [code = 30350-1] Goal Plan of Care Note [code = 55109-1] Goal Plan of Care Note [code = 42807-3] Goal Plan of Care Note [code = 59445-8] Goal Plan of Care Note [code = 31752-0] Goal Plan of Care Note [code = 78879-0] Goal Plan of Care Note [code = 25767-9] Goal Plan of Care Note [code = 36791-3] Goal Plan of Care Note [code = 93952-5] Goal Plan of Care Note [code = 37656-3] Goal Plan of Care Note [code = 79945-0] Goal Plan of Care Note [code = 60487-7] Goal Plan of Care Note [code = 95582-7] Goal Plan of Care Note [code = 74459-4] Goal Plan of Care Note [code = 01338-8] Goal Plan of Care Note [code = 45746-3] Goal Plan of Care Note [code = 72447-8] Goal Plan of Care Note [code = 43349-4] Goal Plan of Care Note [code = 82787-5] Goal Plan of Care Note [code = 27863-0] Goal Plan of Care Note [code = 30842-8] Goal Plan of Care Note [code = 19675-8] Goal Plan of Care Note [code = 52767-5] Goal Plan of Care Note [code = 98753-7] Goal Plan of Care Note [code = 33809-4] Goal Plan of Care Note [code = 67323-0] Goal Plan of Care Note [code = 54115-3] Goal Plan of Care Note [code = 27156-6] Goal Plan of Care Note [code = 95082-9] Goal Plan of Care Note [code = 88453-0] Goal Plan of Care Note [code = 04394-8] Goal Plan of Care Note [code = 57556-5] Goal Plan of Care Note [code = 53980-4] Goal Plan of Care Note [code = 00264-3] Goal Plan of Care Note [code = 10878-8] Goal Plan of Care Note [code = 15450-1] Goal Plan of Care Note [code = 95078-2] Goal Plan of Care Note [code = 78493-5] Goal Plan of Care Note [code = 33629-1] Goal Plan of Care Note [code = 17936-2] Goal Plan of Care Note [code = 67949-4] Goal Plan of Care Note [code = 40768-5] Goal Plan of Care Note [code = 92502-3] Goal Plan of Care Note [code = 28896-7] Goal Plan of Care Note [code = 62414-1] Goal Plan of Care Note [code = 40293-6] Goal Plan of Care Note [code = 61718-3] Goal Plan of Care Note [code = 85063-1] Goal Plan of Care Note [code = 70203-2] Goal Plan of Care Note [code = 03786-4] Goal Plan of Care Note [code = 41101-2] Goal Plan of Care Note [code = 45318-8] Goal Plan of Care Note [code = 14886-4] Goal Plan of Care Note [code = 00077-6] Goal Plan of Care Note [code = 76292-5] Goal Plan of Care Note [code = 21031-3] Goal Plan of Care Note [code = 51519-2] Goal Plan of Care Note [code = 31270-2] Goal Plan of Care Note [code = 86365-9] Goal Plan of Care Note [code = 80861-0] Goal Plan of Care Note [code = 68449-4] Goal Plan of Care Note [code = 37807-7] Goal Plan of Care Note [code = 36945-6] Goal Plan of Care Note [code = 09846-7] Goal Plan of Care Note [code = 91345-6] Goal Plan of Care Note [code = 73136-8] Goal Plan of Care Note [code = 94068-2] Goal Plan of Care Note [code = 76264-4] Goal Plan of Care Note [code = 39235-6] Goal Plan of Care Note [code = 42619-3] Goal Plan of Care Note [code = 42104-1] Goal Plan of Care Note [code = 78151-9] Goal Plan of Care Note [code = 91595-8] Encounters Start End Encounter Admission Attending Care Care Encounter Source Date/Time Date/Time Type Type Clinicians Facility Department ID 2022-11-19 2022-11-19 Outpatient [facility] [id number] 023 Yasir 11:05:07 11:05:07 1012 F Yusef 2022-11-19 2022-11-19 Orders Doctor DIONISIO 1.2.840.114 [id number] Univers 00:00:00 00:00:00 Only Unassigned, ASHLEY 350.1.13.10 ity of [place] [facility] 4.2.7.2.686 Nabil as [id number] [facility] piedad [address] 2022-11-06 2022-11-06 Outpatient SFA SFA 69829-0 023 Yasir 11:26:24 11:26:24 0929 [facility] 2022-10-05 2022-10-05 Outpatient SFA SFA 53980-9 023 Yasir 14:49:43 14:49:43 0828 [facility] 2022-09-27 2022-09-27 Outpatient SFA SFA 72044-6 023 Yasir 13:53:09 13:53:09 0820 [facility] 2022-09-08 2022-09-08 Outpatient SFA SFA 45471-3 023 Yasir 08:07:38 08:07:38 0801 [facility] 2022-08-30 2022-08-30 Outpatient SFA SFA 62998-6 023 Yasir 14:29:30 14:29:30 0723 F [facility] 2022-08-13 2022-08-13 Outpatient SFA SFA 51784-0 023 Yasir 08:03:06 08:03:06 0706 [facility] 2022-05-27 2022-05-27 Outpatient SFA SFA 86714-9 023 Yasir 11:13:39 11:13:39 0419 [facility] 2022-04-30 2022-04-30 Outpatient SFA SFA 28467-5 023 Yasir 09:49:15 09:49:15 0323 [facility] 2022-04-23 2022-04-23 Outpatient SFA SFA 27047-1 023 Yasir 09:58:52 09:58:52 0316 [facility] 2021-12-11 2021-12-11 Outpatient SFA SFA 88747-1 022 Yasir 09:25:26 09:25:26 1103 [facility] 2021-12-05 2021-12-06 Outpatient nullFlavo MNA [id number] [facility]oria 13:15:00 04:59:59 r Neurology 01 l [place] 2021-12-05 2021-12-06 Outpatient nullFlavo MNA 78840 45026 Memoria 13:15:00 04:59:59 r Neurology 01 l [place] 2021-12-05 2021-12-[address] [facility] 623 [id number] 08:15:00 23:59:59 Rogelio 01 Rodríguez 2021-12-05 2021-12-05 Outpatient MHIE MHIE [id number] Memoria 08:15:00 08:15:00 01 natasha Day 2021-12-05 2021-12-05 Outpatient ru6cfa16- [id number] ed 2rlg46-2 00:00:00 00:00:00 Visit 5258-8247 059-4058-8 -7w06-4i7 r51-6w17g0 [id number] 8744-10-25 2021-12-02 Ambulatory nullFlavo MNA [id number] [facility]oria 13:15:00 13:15:00 Pre-Reg r Neurology 00 l Jose Day 2021-12-02 2021-12-02 Ambulatory nullFlavo MNA [id number] [facility] 13:15:00 13:15:00 Pre-Reg r Neurology 00 l Jose Day 2021-12-02 2021-12-02 Outpatient MHIE MHIE [id number] Memoria 08:15:00 08:15:00 00 natasha Day 2021-12-02 2021-12-02 [id number] 08:15:00 08:15:00 Rogelio Rodríguez 2021-11-06 2021-11-06 Outpatient [id number]- [id number] 79 96afbf-7 00:00:00 00:00:00 Visit 78ef-41c6 8ef-41c6-8 -8750-b17 750-b175d4 9t99l08t8 9c05e3 2021-09-09 2021-09-09 Outpatient 9h1f8gok- [id number] 2c 0x1fae-z 00:00:00 00:00:00 Visit ug41-17b8 c38-43z0-9 -8625-285 625-312410 6175e3m6g 2e6a5e 2021-08-15 2021-08-15 Outpatient 43h2t972- [id number] 32 k3t296-1 00:00:00 00:00:00 Visit 1578-4e21 578-4e21-b -r63p-2u8 [facility]-1h5043 7174dedcc 4dedcc 2021-07-15 2021-07-16 [facility] Colette Izaguirre 1.2.840.1 1047 [id number] [facility] 01:59:00 13:57:00 Encounter Hyun Flynn 85791.1.[address] 3.430.2.7 Hospit a .3.869590 l .8 2021-07-15 2021-07-15 Travel 1.2.840.1 1.2.176.870 [id number] [id number] [facility] 00:00:00 00:00:[address] 3.430.2.7 0.2.7.3.698 Ho spita .3.649970 084.8 l .8 2020-01-17 2020-01-17 Orders Doctor NICHOLE 1.2.840.114 [id number] 00:00:00 00:00:00 Only Unassigned, ASHLEY 350.1.13.10 [place] [facility] 4.2.7.2.686 [id number] 009 2020-01-17 2020-01-17 Orders Doctor NICHOLE 1.2.840.114 [id number] Univers 00:00:00 00:00:00 Only Unassigned, ASHLEY 350.1.13.10 ity of [place] [facility] 4.2.7.2.686 Nabil as [id number] [facility] [address] 2020-01-01 2020-01-01 Transition Ree Barkley 1.2.840.114 [id number] [id number] 00:00:00 00:00:00 of Care Sarah Carvalho 350.1.13.10 [place] 4.2.7.2.686 [id number] 403 2020-01-01 2020-01-01 Transition Ree Barkley 1.2.840.114 [id number] [id number] [facility] 00:00:00 00:00:00 of Care Sarah Carvalho 350.1.13.10 [place] of [place] [id number] [facility] [address] 2019-12-27 2019-12-30 [facility] Minna Mike 1.2.840. 114 [id number] 18:54:00 14:13:00 Encounter Lexy Monae 350.1.13.10 [facility] 4.2.7.2.686 [id number] [facility] 2019-12-27 2019-12-30 [facility] Minna Mike 1.2.840. 114 [id number] [facility] 18:54:00 14:13:00 Encounter Lexy Monae 350.1.13.10 ity of [facility] 4.2.7.2.68 6 [place] [id number] [address] 2019-12-27 2019-12-27 Emergency [facility] [id number] Univers 18:54:00 18:54:00 [facility] 2019-07-27 2019-07-27 [facility] 1.2.840.114 [id number] 16:26:45 18:20:00 Soila Espinosa 350.1.13.10 [place] 4.2.7.2.686 [place] [id number] [facility] 2019-07-27 2019-07-27 [facility] 1.2.840.114 [id number] Univers 16:26:45 18:20:00 Soila Espinosa 350.1.13.10 ity [facility] 4.2.7.2.686 [facility] [id number] [address] 2019-07-27 2019-07-27 Emergency X [facility] ERT [id number] Univers 16:26:45 18:20:00 [facility] Results Test Description Test Time Test Comments Results Result Comments Source LACTIC ACID, PLASMA 2022-06-04 08:17:31 Test Item Value Reference Range Interpretation Comme nts LACTIC ACID, TEST NOT PERFORMED 4.5-19.8 Unable to perform testing, improper PLASMA (test MG/DL specimen receiv ed.Charges adjusted as code = 2056) applicable. [facility] has important pathology staff changes effective 04/08/2022. New pathology staff will provide uninter rupted, excellent patient care and clinic al consultation. See URL: [email or web address] Media /pathology-team. UNLESS OTHERWISE INDIC ATED, ALL TESTING PERFORMED AT [facility], I [place]. [address] [place] [id number] [place] [address] DIRECTOR: Noelle ALVARES SIMI NUMBER [id number] CAP ACCREDITATION N O. [id number] LACTIC ACID, [id number] 11:58:30 Test Item Value Reference Range Interpretation Comments LACTIC ACID, 24.2 MG/DL 4.5-19.8 H [facility] has i mportant PLASMA (test code pathology staff changes = 2056) effective 04/08. New pathology s taff will provide uninter rupted, excellent patie nt care and clinical consultation. S ee URL: [email or web address] Media /pathology -team. UNLESS O THERWISE INDICATED, ALL TESTING PERFORMED AT [facility] [employer], [facility]. [address] [place] [address] [facility] DIRECTOR: Noelle MANCILLA SIMI NUMBER [id number] CAP ACCREDITATION N O. [id number] COMPREHENSIVE METABOLIC [id number] 06:16:32 Test Item Value Reference Range Interpretation Comments GLUCOSE (test code = 323 MG/DL 70-99 H 2216) BUN (test code = 11 MG/DL 8-23 2207) CREATININE (test 0.71 MG/DL 0.60-1.30 code = 2214) eGFR (2020 CKD-EPI) 94 ML/MIN/1.73 >60 (test code = 01420) CALC BUN/CREAT (test 15 RATIO 6-28 code = 2235) SODIUM (test code = 143 MEQ/L 637-785 3289) POTASSIUM (test code 3.5 MEQ/L 3.5-5.4 = [...] = 37 U/L 5-40 2218) LACTIC ACID, [id number] 13:51:21 Test Item Value Reference Range Interpretation Comments LACTIC ACID, PLASMA (test code = 19.8 MG/DL 4.5-19.8 2056) TSH REFLEX TO FREE [id number] 05:35:06 Test Item Value Reference Range Interpretation Comments TSH REFLEX TO 1.810 UIU/ML 0.400-4.100 [facility] has i mportant FREE T4 (test pathology staf f changes code = 2834) effective 04/08. New patholo gy staff will provide uninterrupted, excellent patient care an d clinical consul tation. See URL: [email or web address] Media /patholog y-team. UNLESS OTHERWISE INDICATED, ALL TESTING PERFORMED AT [facility] [address] [place] [address] 4 LABORATORY DIRE CTOR: FLACA JOHNSON M.D. [place] NUMBER [id number] [place] [id number] HEMOGLOBIN [id number] 04:53:38 Test Item Value Reference Range Interpretation Comments HEMOGLOBIN A1c (test 9.5 % 4.2-5.6 H [employer]ES code = 09953) ASSOCIATION IDELIN[employer] FOR HGB A1C: PREDIABETES/INC REASED [...] ATE TESTING OR LABORATORY C ONSULTATION. LIPID [id number] 03:59:11 Test Item Value Reference Range Interpretation [...] MOREINFORMATION , SEE CLIENT ANNOUNCE MENT AT [email or web address] Media /CalcLDL-C RISK RATIO LDL/HDL 0.98 RATIO <3.22 (test code = 2238) COMPREHENSIVE METABOLIC [id number] 03:59:11 Test Item Value Reference Range Interpretation Comments GLUCOSE (test code = 275 MG/DL 70-99 H 2216) BUN (test code = 17 MG/DL 8-23 2207) CREATININE (test 0.68 MG/DL 0.60-1.30 code = 2214) eGFR (2020 CKD-EPI) 96 ML/MIN/1.73 >60 (test code = 04830) CALC BUN/CREAT (test 25 RATIO 6-28 code = 2235) SODIUM (test code = 139 MEQ/L 583-850 9895) POTASSIUM (test code 3.9 MEQ/L 3.5-5.4 = 222) CHLORIDE (test code [...] (test code = 38 U/L 5-40 2218) [id number] 03:56:08 Test Item Value Reference Range Interpretation Comments MAGNESIUM (test code = 2226) 1.9 MG/DL 1.6-2.6 LACTIC ACID, [id number] 11:30:59 Test Item Value Reference Range Interpretation Comments LACTIC ACID, PLASMA (test code = 12.0 MG/DL 4.5-19.8 2056) [id number] 03:42:38 Test Item Value Reference Range Interpretation Comments MAGNESIUM (test code = 2226) 1.9 MG/DL 1.6-2.6 COMPREHENSIVE METABOLIC [id number] 03:42:00 Test Item Value Reference Range Interpretation Comments GLUCOSE (test code = 193 MG/DL 70-99 H 2216) BUN (test code = 14 MG/DL 8-23 2207) CREATININE (test 0.68 MG/DL 0.60-1.30 code = 2214) eGFR (2020 CKD-EPI) 97 ML/MIN/1.73 >60 (test code = 85020) CALC BUN/CREAT (test 21 RATIO 6-28 code = 2235) SODIUM (test code = 140 MEQ/L 427-384 4316) POTASSIUM (test code 4.4 MEQ/L 3.5-5.4 = [...] code = 25 U/L 5-40 2218) IRON, [id number] 03:42:00 Test Item Value Reference Range Interpretation Comments IRON, SERUM (test 21 UG/DL 37-145 L UNLESS OT HERWISE code = 2222) INDICATED, ALL TESTING PERFORMED [facility] PATH[facility] [employer]. [address] [place] [address] DIRECTOR: TITA PARIKH M.D. CLIA NUMBER [id number] CAP ACCREDITATION N O. [id number] HEMOGLOBIN [id number] 03:08:42 Test Item Value Reference Range Interpretation Comments HEMOGLOBIN A1c (test 8.0 % 4.2-5.6 H AMERI CAN DIABETES code = 84758) ASSOCIATION IDELINES FOR HGB A1C: PREDIABETES/INC REASED [...] LABORATORY C ONSULTATION. CBC W/AUTO DIFF WITH [id number] 01:59:57 Test Item Value Reference Range Interpretation [...] RBCS 0.00 K/UL 0.00-0.11 (test code = 42412) LACTIC ACID, PLASMA [ADDED]2021-09-16 00:00:00 Test Item [...] (2020 CKD-EPI) (test code 97 ML/MIN/1.73 = 83739) CALC BUN/CREAT (test code = 21 RATIO [...] (2020 CKD-EPI) (test code 97 ML/MIN/1.73 = 96793) CALC BUN/CREAT (test code = 21 RATIO [...] BILIRUBIN, TOTAL (test code = <0.2 MG/DL 7) ALKALINE PHOSPHATASE (test 61 U/L code = [...] Interpretation Comments HEMOGLOBIN A1c (test code = 88156) 8.0 % HEMOGLOBIN A1c [ADDED]2021-09-16 00:00:00 Test Item Value Reference Range Interpretation Comments HEMOGLOBIN A1c (test code = 28145) 8.0 % HEMOGLOBIN A1c [ADDED]2021-09-16 00:00:00 Test Item Value Reference Range Interpretation Comments HEMOGLOBIN A1c (test code = 00953) 8.0 % CBC W/AUTO DIFF WITH PLATELETS [...] NUCLEATED RBCS (test code = 0.00 K/UL 52747) CBC W/AUTO DIFF WITH PLATELETS [ADDED]2021-09-16 00:00:00 [...] NUCLEATED RBCS (test code = 0.00 K/UL 63027) CBC W/AUTO DIFF WITH PLATELETS [ADDED]2021-09-16 00:00:00 [...] NUCLEATED RBCS (test code = 0.00 K/UL 36292) IRON, SERUM [ADDED]2021-09-16 00:00:00 Test Item Value [...] (2020 CKD-EPI) (test code 97 ML/MIN/1.73 = 43384) CALC BUN/CREAT (test code = 21 RATIO [...] (2020 CKD-EPI) (test code 97 ML/MIN/1.73 = 71827) CALC BUN/CREAT (test code = 21 RATIO [...] Interpretation Comments HEMOGLOBIN A1c (test code = 33084) 8.0 % HEMOGLOBIN A1c [ADDED]2021-09-16 00:00:00 Test Item Value Reference Range Interpretation Comments HEMOGLOBIN A1c (test code = 73968) 8.0 % HEMOGLOBIN A1c [ADDED]2021-09-16 00:00:00 Test Item Value Reference Range Interpretation Comments HEMOGLOBIN A1c (test code = 79104) 8.0 % CBC W/AUTO DIFF WITH PLATELETS [...] NUCLEATED RBCS (test code = 0.00 K/UL 61516) CBC W/AUTO DIFF WITH PLATELETS [ADDED]2021-09-16 00:00:00 [...] NUCLEATED RBCS (test code = 0.00 K/UL 35899) CBC W/AUTO DIFF WITH PLATELETS [ADDED]2021-09-16 00:00:00 [...] NUCLEATED RBCS (test code = 0.00 K/UL 10917) IRON, SERUM [ADDED]2021-09-16 00:00:00 Test Item Value [...] (2020 CKD-EPI) (test code 97 ML/MIN/1.73 = 41838) CALC BUN/CREAT (test code = 21 RATIO [...] (2020 CKD-EPI) (test code 97 ML/MIN/1.73 = 24321) CALC BUN/CREAT (test code = 21 RATIO [...] Interpretation Comments HEMOGLOBIN A1c (test code = 30303) 8.0 % HEMOGLOBIN A1c [ADDED]2021-09-16 00:00:00 Test Item Value Reference Range Interpretation Comments HEMOGLOBIN A1c (test code = 74269) 8.0 % HEMOGLOBIN A1c [ADDED]2021-09-16 00:00:00 Test Item Value Reference Range Interpretation Comments HEMOGLOBIN A1c (test code = 79511) 8.0 % CBC W/AUTO DIFF WITH PLATELETS [...] NUCLEATED RBCS (test code = 0.00 K/UL 42980) CBC W/AUTO DIFF WITH PLATELETS [ADDED]2021-09-16 00:00:00 [...] NUCLEATED RBCS (test code = 0.00 K/UL 71254) CBC W/AUTO DIFF WITH PLATELETS [ADDED]2021-09-16 00:00:00 [...] NUCLEATED RBCS (test code = 0.00 K/UL 87600) IRON, SERUM [ADDED]2021-09-16 00:00:00 Test Item Value [...] (2020 CKD-EPI) (test code 97 ML/MIN/1.73 = 22601) CALC BUN/CREAT (test code = 21 RATIO [...] (2020 CKD-EPI) (test code 97 ML/MIN/1.73 = 26492) CALC BUN/CREAT (test code = 21 RATIO [...] Interpretation Comments HEMOGLOBIN A1c (test code = 09467) 8.0 % HEMOGLOBIN A1c [ADDED]2021-09-16 00:00:00 Test Item Value Reference Range Interpretation Comments HEMOGLOBIN A1c (test code = 21365) 8.0 % HEMOGLOBIN A1c [ADDED]2021-09-16 00:00:00 Test Item Value Reference Range Interpretation Comments HEMOGLOBIN A1c (test code = 48106) 8.0 % CBC W/AUTO DIFF WITH PLATELETS [...] NUCLEATED RBCS (test code = 0.00 K/UL 51280) CBC W/AUTO DIFF WITH PLATELETS [ADDED]2021-09-16 00:00:00 [...] NUCLEATED RBCS (test code = 0.00 K/UL 22250) CBC W/AUTO DIFF WITH PLATELETS [ADDED]2021-09-16 00:00:00 [...] NUCLEATED RBCS (test code = 0.00 K/UL 13462) IRON, SERUM [ADDED]2021-09-16 00:00:00 Test Item Value Reference Range Interpretation Comments IRON, SERUM (test code = 2222) 21 UG/DL IRON, SERUM [ADDED]2021-09-16 00:00:00 Test Item Value Reference Range Interpretation Comments IRON, SERUM (test code = 2222) 21 UG/DL LACTIC ACID, [id number] 14:02:14 Test Item Value Reference Range Interpretation [...] code = 15.2 MG/DL 2056) COMPREHENSIVE METABOLIC [id number] 04:08:01 Test Item Value Reference Range Interpretation Comments GLUCOSE (test code = 104 MG/DL 70-99 H 2216) BUN (test code = 17 MG/DL 8-23 2207) CREATININE (test 0.73 MG/DL 0.60-1.30 code = 2214) eGFR (2020 CKD-EPI) 91 >60 (test code = 88021) ML/MIN/1.73 CALC BUN/CREAT (test 23 RATIO 6-28 code = 2235) SODIUM (test code = 141 MEQ/L 323-428 0469) POTASSIUM (test code 4.7 MEQ/L 3.5-5.4 = [...] [facility] [address] [place] [address] [facility] DIRECTOR: TITA PARIKH M.D. IA NUMBER [id number] CAP ACCREDITATION N O. [id number] COMPREHENSIVE METABOLIC PANEL [ADDED]2021-08-19 00:00:00 Test Item Value Reference Range Interpretation Comments GLUCOSE (test code = 2217) 104 MG/DL BUN (test code = 2208) 17 MG/DL CREATININE (test code = 2214) 0.73 MG/DL eGFR (2020 CKD-EPI) (test code 91 ML/MIN/1.73 = 74160) CALC BUN/CREAT (test code = 23 RATIO [...] (2020 CKD-EPI) (test code 91 ML/MIN/1.73 = 20105) CALC BUN/CREAT (test code = 23 RATIO [...] (2020 CKD-EPI) (test code 91 ML/MIN/1.73 = 73310) CALC BUN/CREAT (test code = 23 RATIO [...] (2020 CKD-EPI) (test code 91 ML/MIN/1.73 = 34636) CALC BUN/CREAT (test code = 23 RATIO [...] 224) CALC A/G RATIO (test code = 2.1 [...] (2020 CKD-EPI) (test code 91 ML/MIN/1.73 = 50561) CALC BUN/CREAT (test code = 23 RATIO [...] (2020 CKD-EPI) (test code 91 ML/MIN/1.73 = 05093) CALC BUN/CREAT (test code = 23 RATIO [...] RATIO 223) BILIRUBIN, TOTAL (test code = 0.2 MG/DL [...] (2020 CKD-EPI) (test code 91 ML/MIN/1.73 = 05677) CALC BUN/CREAT (test code = 23 RATIO [...] (2020 CKD-EPI) (test code 91 ML/MIN/1.73 = 03662) CALC BUN/CREAT (test code = 23 RATIO [...] (test code = 2219) 25 U/L POC [id number] 16:05:00 Test Item Value Reference Range Interpretation Comments POC glucose (test code 354 mg/dL 65-99 Opera [facility] Name: Celeste = [id number]) NwachukwuDevice ID: [id number] Lab Interpretation Abnormal (test code = 23700-3) [facility] [id number] 16:05:00 Test Item Value Reference Range Interpretation Comments POC glucose (test code 354 mg/dL 65-99 HH [facility] Name: Celeste = [id number]) NwachukwuDevice ID: [id number] Lab Interpretation Abnormal (test code = 52303-8) [facility]2022-06-08 16:05:00 Test Item Value Reference Range Interpretation Comments POC glucose (test code 354 mg/dL 65-99 HH [facility] Name: Celeste = [id number]) BillyukwuDekenyone ID: [id number] Lab Interpretation Abnormal (test code = 06052-7) [facility]2022-06-08 16:05:00 Test Item Value Reference Range Interpretation Comments POC glucose (test code 354 mg/dL 65-99 HH [facility] Name: Celeste = [id number]) NwjohnukwuDekenyone ID: [id number] Lab Interpretation Abnormal (test code = 15270-8) [facility]2022-06-08 16:05:00 Test Item Value Reference Range Interpretation Comments POC glucose (test code 354 mg/dL 65-99 HH [facility] Name: Celeste = 10086-4) NwjohnukhemaluDekenyone ID: [id number] Lab Interpretation Abnormal (test code = 11226-8) [facility]2022-06-08 16:05:00 Test Item Value Reference Range Interpretation Comments POC glucose (test code 354 mg/dL 65-99 HH [facility] Name: Celeste = [id number]) BillyukwuDekenyone ID: [id number] Lab Interpretation Abnormal (test code = 11197-5) [facility]2022-06-08 16:05:00 Test Item Value Reference Range Interpretation Comments POC glucose (test code 354 mg/dL 65-99 [facility] Name: Celeste = [id number]) BillyukwuDekenyone ID: [id number] Lab Interpretation Abnormal (test code = 68772-2) [facility]2022-06-08 16:05:00 Test Item Value Reference Range Interpretation Comments POC glucose (test code 354 mg/dL 65-99 [facility] Name: Celeste = [id number]) NwachukwuDekenyone ID: [id number] Lab Interpretation Abnormal (test code = 22112-9) [address]2022-06-08 01:04:59 Test Item Value Reference Range [...] Sosa MD ([id number]) on 07/15/2021 8:04:[address]2022-06-08 01:04:59 Test Item Value Reference Range [...] Sosa MD ([id number]) on 07/15/2021 8:04:[address]2022-06-08 01:04:59 Test Item Value Reference Range [...] Sosa MD ([id number]) on 07/15/2021 8:04:[address] PM [address]2022-06-08 01:04:59 Test Item Value Reference Range [...] Sosa MD ([id number]) on 07/15/2021 8:04:56 PM [place] [address] [id number] 01:04:59 Test Item Value Reference Range Interpretation [...] Sosa MD ([id number]) on 07/15/2021 8:04:56 PM [place] [address] [id number] 01:04:59 Test Item Value Reference Range Interpretation [...] Sosa MD ([id number]) on 07/15/2021 8:04:[address]2022-06-08 01:04:59 Test Item Value Reference Range [...] Sosa MD ([id number]) on 07/15/2021 8:04:56 [facility] [id number] 01:04:59 Test Item Value Reference Range Interpretation [...] Sosa MD ([id number]) on 07/15/2021 8:04:56 PM [facility] [id number] 14:02:59 Test Item Value Reference Range Interpretation Comments LACTIC ACID, 26.7 MG/DL 4.5-19.8 H UNLESS OTHERWI SE PLASMA (test code INDICATED, ALL TESTING = 2056) [facility] [address] [place] [phone] [place] [address] DIRECTOR: TITA PARIKH M.D. CLIA NUMBER [id number] CAP ACCREDITATION N O. [id number] LACTIC ACID, [id number] 00:00:00 Test Item Value Reference Range Interpretation Comments LACTIC ACID, PLASMA (test code = 26.7 MG/DL 2056) LACTIC ACID, [id number] 00:00:00 Test Item Value Reference Range Interpretation Comments LACTIC ACID, PLASMA (test code = 26.7 MG/DL 2056) LACTIC ACID, [id number] 00:00:00 Test Item Value Reference Range Interpretation Comments LACTIC ACID, PLASMA (test code = 26.7 MG/DL 2056) LACTIC ACID, [id number] 00:00:00 Test Item Value Reference Range Interpretation Comments LACTIC ACID, PLASMA (test code = 26.7 MG/DL 2056) LACTIC ACID, [id number] 00:00:00 Test Item Value Reference Range Interpretation Comments LACTIC ACID, PLASMA (test code = 26.7 MG/DL 2056) LACTIC ACID, [id number] 00:00:00 Test Item Value Reference Range Interpretation Comments LACTIC ACID, PLASMA (test code = 26.7 MG/DL 2056) LACTIC ACID, [id number] 00:00:00 Test Item Value Reference Range Interpretation Comments LACTIC ACID, PLASMA (test code = 26.7 MG/DL 2056) LACTIC ACID, [id number] 00:00:00 Test Item Value Reference Range Interpretation Comments LACTIC ACID, PLASMA (test code = 26.7 MG/DL 2056) LACTIC ACID, [id number] 10:45:50 Test Item Value Reference Range Interpretation Comments LACTIC ACID, 27.1 MG/DL 4.5-19.8 H UNLESS OTHERWI SE PLASMA (test code INDICATED, ALL TESTING = 2056) PERFORMED [facility]. [address] [phone] [place] [address] DIRECTOR: TITA PARIKH M.D. CLIA NUMBER [id number] CAP ACCREDITATION N O. [id number] HEMOGLOBIN [id number] 05:02:08 Test Item Value Reference Range Interpretation Comments HEMOGLOBIN A1c (test 8.3 % 4.2-5.6 H AMERIC AN DIABETES code = 51003) ASSOCIATION IDELINES FOR HGB A1C: PREDIABETES/INC REASED [...] TESTING OR LABORATORY C ONSULTATION. COMPREHENSIVE METABOLIC [id number] 03:45:06 Test Item Value Reference Range Interpretation Comments GLUCOSE (test code = 397 MG/DL 70-99 H 2216) BUN (test code = 21 MG/DL 09-30) CREATININE (test 0.75 MG/DL 0.60-1.30 code = 2214) eGFR (2020 CKD-EPI) 88 ML/MIN/1.73 >60 (test code = 10104) CALC BUN/CREAT (test 28 RATIO 6-28 code = 2235) SODIUM (test code = 140 MEQ/L 388-220 2393) POTASSIUM (test code 4.2 MEQ/L 3.5-5.4 = [...] code = 25 U/L 5-40 2218) LIPID [id number] 03:45:06 Test Item Value Reference Range Interpretation [...] <3.22 (test code = 2238) COMPREHENSIVE METABOLIC [id number] 00:00:00 Test Item Value Reference Range Interpretation Comments GLUCOSE (test code = 2217) 397 MG/DL BUN (test code = 2208) 21 MG/DL CREATININE (test code = 2214) 0.75 MG/DL eGFR (2020 CKD-EPI) (test code 88 ML/MIN/1.73 = 98455) CALC BUN/CREAT (test code = 28 RATIO [...] code = 2219) 25 U/L COMPREHENSIVE METABOLIC [id number] 00:00:00 Test Item Value Reference Range Interpretation Comments GLUCOSE (test code = 2217) 397 MG/DL BUN (test code = 2208) 21 MG/DL CREATININE (test code = 2214) 0.75 MG/DL eGFR (2020 CKD-EPI) (test code 88 ML/MIN/1.73 = 36696) CALC BUN/CREAT (test code = 28 RATIO [...] (test code = 2219) 25 U/L LIPID [id number] 00:00:00 Test Item Value Reference Range Interpretation Comments CHOLESTEROL (test code = 2210) 134 MG/DL TRIGLYCERIDES (test code = 2232) 81 MG/DL HDL CHOLESTEROL (test code = 2220) 61 MG/DL CALC LDL CHOL (test code = 2237) 57 MG/DL RISK RATIO LDL/HDL (test code = 0.93 RATIO 2238) LIPID [id number] 00:00:00 Test Item Value Reference Range Interpretation Comments CHOLESTEROL (test code = 2210) 134 MG/DL TRIGLYCERIDES (test code = 2232) 81 MG/DL HDL CHOLESTEROL (test code = 2220) 61 MG/DL CALC LDL CHOL (test code = 2237) 57 MG/DL RISK RATIO LDL/HDL (test code = 0.93 RATIO 2238) HEMOGLOBIN [id number] 00:00:00 Test Item Value Reference Range Interpretation Comments HEMOGLOBIN A1c (test code = 25856) 8.3 % HEMOGLOBIN [id number] 00:00:00 Test Item Value Reference Range Interpretation Comments HEMOGLOBIN A1c (test code = 64522) 8.3 % HEMOGLOBIN [id number] 00:00:00 Test Item Value Reference Range Interpretation Comments HEMOGLOBIN A1c (test code = 70598) 8.3 % LACTIC ACID, PLASMA [ADDED]2021-07-09 00:00:00 Test Item Value Reference Range Interpretation Comments LACTIC ACID, PLASMA (test code = 27.1 MG/DL 2056) LACTIC ACID, PLASMA [ADDED]2021-07-09 00:00:00 Test Item Value Reference Range Interpretation Comments LACTIC ACID, PLASMA (test code = 27.1 MG/DL 2056) COMPREHENSIVE METABOLIC [id number] 00:00:00 Test Item Value Reference Range Interpretation Comments GLUCOSE (test code = 2217) 397 MG/DL BUN (test code = 2208) 21 MG/DL CREATININE (test code = 2214) 0.75 MG/DL eGFR (2020 CKD-EPI) (test code 88 ML/MIN/1.73 = 80821) CALC BUN/CREAT (test code = 28 RATIO [...] code = 2219) 25 U/L COMPREHENSIVE METABOLIC [id number] 00:00:00 Test Item Value Reference Range Interpretation Comments GLUCOSE (test code = 2217) 397 MG/DL BUN (test code = 2208) 21 MG/DL CREATININE (test code = 2214) 0.75 MG/DL eGFR (2020 CKD-EPI) (test code 88 ML/MIN/1.73 = 31792) CALC BUN/CREAT (test code = 28 RATIO [...] (test code = 2219) 25 U/L LIPID [id number] 00:00:00 Test Item Value Reference Range Interpretation Comments CHOLESTEROL (test code = 2210) 134 MG/DL TRIGLYCERIDES (test code = 2232) 81 MG/DL HDL CHOLESTEROL (test code = 2220) 61 MG/DL CALC LDL CHOL (test code = 2237) 57 MG/DL RISK RATIO LDL/HDL (test code = 0.93 RATIO 2238) LIPID [id number] 00:00:00 Test Item Value Reference Range Interpretation Comments CHOLESTEROL (test code = 2210) 134 MG/DL TRIGLYCERIDES (test code = 2232) 81 MG/DL HDL CHOLESTEROL (test code = 2220) 61 MG/DL CALC LDL CHOL (test code = 2237) 57 MG/DL RISK RATIO LDL/HDL (test code = 0.93 RATIO 2238) HEMOGLOBIN [id number] 00:00:00 Test Item Value Reference Range Interpretation Comments HEMOGLOBIN A1c (test code = 14617) 8.3 % HEMOGLOBIN [id number] 00:00:00 Test Item Value Reference Range Interpretation Comments HEMOGLOBIN A1c (test code = 63095) 8.3 % HEMOGLOBIN [id number] 00:00:00 Test Item Value Reference Range Interpretation Comments HEMOGLOBIN A1c (test code = 35390) 8.3 % LACTIC ACID, PLASMA [ADDED]2021-07-09 00:00:00 Test Item Value Reference Range Interpretation Comments LACTIC ACID, PLASMA (test code = 27.1 MG/DL 2056) LACTIC ACID, PLASMA [ADDED]2021-07-09 00:00:00 Test Item Value Reference Range Interpretation Comments LACTIC ACID, PLASMA (test code = 27.1 MG/DL 2056) COMPREHENSIVE METABOLIC [id number] 00:00:00 Test Item Value Reference Range Interpretation Comments GLUCOSE (test code = 2217) 397 MG/DL BUN (test code = 2208) 21 MG/DL CREATININE (test code = 2214) 0.75 MG/DL eGFR (2020 CKD-EPI) (test code 88 ML/MIN/1.73 = 95897) CALC BUN/CREAT (test code = 28 RATIO [...] code = 2219) 25 U/L COMPREHENSIVE METABOLIC [id number] 00:00:00 Test Item Value Reference Range Interpretation Comments GLUCOSE (test code = 2217) 397 MG/DL BUN (test code = 2208) 21 MG/DL CREATININE (test code = 2214) 0.75 MG/DL eGFR (2020 CKD-EPI) (test code 88 ML/MIN/1.73 = 61296) CALC BUN/CREAT (test code = 28 RATIO [...] (test code = 2219) 25 U/L LIPID [id number] 00:00:00 Test Item Value Reference Range Interpretation Comments CHOLESTEROL (test code = 2210) 134 MG/DL TRIGLYCERIDES (test code = 2232) 81 MG/DL HDL CHOLESTEROL (test code = 2220) 61 MG/DL CALC LDL CHOL (test code = 2237) 57 MG/DL RISK RATIO LDL/HDL (test code = 0.93 RATIO 2238) LIPID [id number] 00:00:00 Test Item Value Reference Range Interpretation Comments CHOLESTEROL (test code = 2210) 134 MG/DL TRIGLYCERIDES (test code = 2232) 81 MG/DL HDL CHOLESTEROL (test code = 2220) 61 MG/DL CALC LDL CHOL (test code = 2237) 57 MG/DL RISK RATIO LDL/HDL (test code = 0.93 RATIO 2238) HEMOGLOBIN [id number] 00:00:00 Test Item Value Reference Range Interpretation Comments HEMOGLOBIN A1c (test code = 80784) 8.3 % HEMOGLOBIN [id number] 00:00:00 Test Item Value Reference Range Interpretation Comments HEMOGLOBIN A1c (test code = 96041) 8.3 % HEMOGLOBIN [id number] 00:00:00 Test Item Value Reference Range Interpretation Comments HEMOGLOBIN A1c (test code = 77801) 8.3 % LACTIC ACID, PLASMA [ADDED]2021-07-09 00:00:00 Test Item Value Reference Range Interpretation Comments LACTIC ACID, PLASMA (test code = 27.1 MG/DL 2056) LACTIC ACID, PLASMA [ADDED]2021-07-09 00:00:00 Test Item Value Reference Range Interpretation Comments LACTIC ACID, PLASMA (test code = 27.1 MG/DL 2056) COMPREHENSIVE METABOLIC [id number] 00:00:00 Test Item Value Reference Range Interpretation Comments GLUCOSE (test code = 2217) 397 MG/DL BUN (test code = 2208) 21 MG/DL CREATININE (test code = 2214) 0.75 MG/DL eGFR (2020 CKD-EPI) (test code 88 ML/MIN/1.73 = 47587) CALC BUN/CREAT (test code = 28 RATIO [...] code = 2219) 25 U/L COMPREHENSIVE METABOLIC [id number] 00:00:00 Test Item Value Reference Range Interpretation Comments GLUCOSE (test code = 2217) 397 MG/DL BUN (test code = 2208) 21 MG/DL CREATININE (test code = 2214) 0.75 MG/DL eGFR (2020 CKD-EPI) (test code 88 ML/MIN/1.73 = 01933) CALC BUN/CREAT (test code = 28 RATIO [...] (test code = 2219) 25 U/L LIPID [id number] 00:00:00 Test Item Value Reference Range Interpretation Comments CHOLESTEROL (test code = 2210) 134 MG/DL TRIGLYCERIDES (test code = 2232) 81 MG/DL HDL CHOLESTEROL (test code = 2220) 61 MG/DL CALC LDL CHOL (test code = 2237) 57 MG/DL RISK RATIO LDL/HDL (test code = 0.93 RATIO 2238) LIPID [id number] 00:00:00 Test Item Value Reference Range Interpretation Comments CHOLESTEROL (test code = 2210) 134 MG/DL TRIGLYCERIDES (test code = 2232) 81 MG/DL HDL CHOLESTEROL (test code = 2220) 61 MG/DL CALC LDL CHOL (test code = 2237) 57 MG/DL RISK RATIO LDL/HDL (test code = 0.93 RATIO 2238) HEMOGLOBIN [id number] 00:00:00 Test Item Value Reference Range Interpretation Comments HEMOGLOBIN A1c (test code = 11203) 8.3 % HEMOGLOBIN [id number] 00:00:00 Test Item Value Reference Range Interpretation Comments HEMOGLOBIN A1c (test code = 98294) 8.3 % HEMOGLOBIN [id number] 00:00:00 Test Item Value Reference Range Interpretation Comments HEMOGLOBIN A1c (test code = 16841) 8.3 % LACTIC ACID, PLASMA [ADDED]2021-07-09 00:00:00 Test Item Value Reference Range Interpretation Comments LACTIC ACID, PLASMA (test code = 27.1 MG/DL 2056) LACTIC ACID, PLASMA [ADDED]2021-07-09 00:00:00 Test Item Value Reference Range Interpretation Comments LACTIC ACID, PLASMA (test code = 27.1 MG/DL 2056) LACTIC ACID, [id number] 15:11:52 Test Item Value Reference Range Interpretation Comments LACTIC ACID, 11.7 MG/DL 4.5-19.8 UNLESS OTHERWI SE PLASMA (test code INDICATED, ALL TESTING = 2056) [facility]. [address] [place] [phone] [place] [address] DIRECTOR: TITA PARIKH M.D. CLIA NUMBER [id number] CAP ACCREDITATION N O. [id number] LACTIC ACID, PLASMA [ADDED]2021-05-29 00:00:00 Test Item [...] (test code = 11.7 MG/DL 2056) HEMOGLOBIN [id number] 03:44:50 Test Item Value Reference Range Interpretation Comments HEMOGLOBIN A1c (test 7.5 % 4.2-5.6 H AMERIC AN DIABETES code = 84255) ASSOCIATION IDELINES FOR HGB A1C: PREDIABETES/INC REASED [...] TESTING OR LABORATORY C ONSULTATION. COMPREHENSIVE METABOLIC [id number] 03:25:55 Test Item Value Reference Range Interpretation Comments GLUCOSE (test code = 159 MG/DL 70-99 H 2216) BUN (test code = 17 MG/DL 8-23 2207) CREATININE (test 0.56 MG/DL 0.60-1.30 L code = 2214) eGFR (2020 CKD-EPI) 101 >60 (test code = 96858) ML/MIN/1.73 CALC BUN/CREAT (test 30 RATIO 6-28 H code = 2235) SODIUM (test code = 141 MEQ/L 977-696 1808) POTASSIUM (test code 4.4 MEQ/L 3.5-5.4 = 2227) CHLORIDE (test code 101 MEQ/L 95-107 = 221) CARBON DIOXIDE (test 25 MEQ/L 19-31 code [...] (2020 CKD-EPI) (test 101 ML/MIN/1.73 code = 96251) CALC BUN/CREAT (test code = 30 RATIO [...] (2020 CKD-EPI) (test 101 ML/MIN/1.73 code = 35876) CALC BUN/CREAT (test code = 30 RATIO [...] Interpretation Comments HEMOGLOBIN A1c (test code = 65212) 7.5 % HEMOGLOBIN A1c [ADDED]2021-05-28 00:00:00 Test Item Value Reference Range Interpretation Comments HEMOGLOBIN A1c (test code = 34078) 7.5 % HEMOGLOBIN A1c [ADDED]2021-05-28 00:00:00 Test Item Value Reference Range Interpretation Comments HEMOGLOBIN A1c (test code = 72073) 7.5 % COMPREHENSIVE METABOLIC PANEL [ADDED]2021-05-28 00:00:00 Test Item Value Reference Range Interpretation Comments GLUCOSE (test code = 2217) 159 MG/DL BUN (test code = 2208) 17 MG/DL CREATININE (test code = 2214) 0.56 MG/DL eGFR (2020 CKD-EPI) (test 101 ML/MIN/1.73 code = 30569) CALC BUN/CREAT (test code = 30 RATIO [...] (2020 CKD-EPI) (test 101 ML/MIN/1.73 code = 36893) CALC BUN/CREAT (test code = 30 RATIO [...] Interpretation Comments HEMOGLOBIN A1c (test code = 72533) 7.5 % HEMOGLOBIN A1c [ADDED]2021-05-28 00:00:00 Test Item Value Reference Range Interpretation Comments HEMOGLOBIN A1c (test code = 58553) 7.5 % HEMOGLOBIN A1c [ADDED]2021-05-28 00:00:00 Test Item Value Reference Range Interpretation Comments HEMOGLOBIN A1c (test code = 19597) 7.5 % COMPREHENSIVE METABOLIC PANEL [ADDED]2021-05-28 00:00:00 Test Item Value Reference Range Interpretation Comments GLUCOSE (test code = 2217) 159 MG/DL BUN (test code = 2208) 17 MG/DL CREATININE (test code = 2214) 0.56 MG/DL eGFR (2020 CKD-EPI) (test 101 ML/MIN/1.73 code = 52040) CALC BUN/CREAT (test code = 30 RATIO [...] (2020 CKD-EPI) (test 101 ML/MIN/1.73 code = 55968) CALC BUN/CREAT (test code = 30 RATIO [...] Interpretation Comments HEMOGLOBIN A1c (test code = 32851) 7.5 % HEMOGLOBIN A1c [ADDED]2021-05-28 00:00:00 Test Item Value Reference Range Interpretation Comments HEMOGLOBIN A1c (test code = 72435) 7.5 % HEMOGLOBIN A1c [ADDED]2021-05-28 00:00:00 Test Item Value Reference Range Interpretation Comments HEMOGLOBIN A1c (test code = 11522) 7.5 % COMPREHENSIVE METABOLIC PANEL [ADDED]2021-05-28 00:00:00 Test Item Value Reference Range Interpretation Comments GLUCOSE (test code = 2217) 159 MG/DL BUN (test code = 2208) 17 MG/DL CREATININE (test code = 2214) 0.56 MG/DL eGFR (2020 CKD-EPI) (test 101 ML/MIN/1.73 code = 86173) CALC BUN/CREAT (test code = 30 RATIO [...] (2020 CKD-EPI) (test 101 ML/MIN/1.73 code = 03341) CALC BUN/CREAT (test code = 30 RATIO [...] Interpretation Comments HEMOGLOBIN A1c (test code = 97049) 7.5 % HEMOGLOBIN A1c [ADDED]2021-05-28 00:00:00 Test Item Value Reference Range Interpretation Comments HEMOGLOBIN A1c (test code = 35359) 7.5 % HEMOGLOBIN A1c [ADDED]2021-05-28 00:00:00 Test Item Value Reference Range Interpretation Comments HEMOGLOBIN A1c (test code = 49650) 7.5 % LACTIC ACID, [id number] 15:10:19 Test Item Value Reference Range Interpretation Comments LACTIC ACID, 34.5 MG/DL 4.5-19.8 H UNLESS OTHERWI SE PLASMA (test code INDICATED, ALL TESTING = 2056) PERFORMED ATCLI NICAL PATHOLOGY [facility] [address] [facility] [place] [address] [facility] DIRECTOR: Noelle VALLADARES NUMBER [id number] CAP ACCREDITATION N O. [id number] LACTIC ACID, PLASMA [ADDED]2021-05-16 00:00:00 Test Item [...] code = 34.5 MG/DL 2056) LACTIC ACID, [id number] 13:30:20 Test Item Value Reference Range Interpretation Comments LACTIC ACID, 18.5 MG/DL 4.5-19.8 UNLESS OTHERWI SE PLASMA (test code INDICATED, ALL TESTING = 2056) PERFORMED [facility]. [address] [place] [id number] [place] [address] DIRECTOR: TITA PARIKH M.D. CLIA NUMBER [id number] CAP ACCREDITATION N O. [id number] LACTIC ACID, [id number] 00:00:00 Test Item Value Reference Range Interpretation Comments LACTIC ACID, PLASMA (test code = 18.5 MG/DL 2056) LACTIC ACID, [id number] 00:00:00 Test Item Value Reference Range Interpretation Comments LACTIC ACID, PLASMA (test code = 18.5 MG/DL 2056) LACTIC ACID, [id number] 00:00:00 Test Item Value Reference Range Interpretation Comments LACTIC ACID, PLASMA (test code = 18.5 MG/DL 2056) LACTIC ACID, [id number] 00:00:00 Test Item Value Reference Range Interpretation Comments LACTIC ACID, PLASMA (test code = 18.5 MG/DL 2056) LACTIC ACID, [id number] 00:00:00 Test Item Value Reference Range Interpretation Comments LACTIC ACID, PLASMA (test code = 18.5 MG/DL 2056) LACTIC ACID, [id number] 00:00:00 Test Item Value Reference Range Interpretation Comments LACTIC ACID, PLASMA (test code = 18.5 MG/DL 2056) LACTIC ACID, [id number] 00:00:00 Test Item Value Reference Range Interpretation Comments LACTIC ACID, PLASMA (test code = 18.5 MG/DL 2056) LACTIC ACID, [id number] 00:00:00 Test Item Value Reference Range Interpretation Comments LACTIC ACID, PLASMA (test code = 18.5 MG/DL 2056) TSH, THIRD [id number] 06:41:17 Test Item Value Reference Range Interpretation Comments TSH, THIRD GENERATION (test code 1.300 UIU/ML 0.400-4.100 = 2821) LIPID [id number] 04:18:20 Test Item Value Reference Range Interpretation [...] MOREINFORMATION , SEE CLIENT ANNOUNCE MENT AT [email or web address] RISK RATIO LDL/HDL 0.85 RATIO <3.22 (test code = 2238) COMPREHENSIVE METABOLIC [id number] 04:18:20 Test Item Value Reference Range Interpretation Comments GLUCOSE (test code = 93 MG/DL 70-99 2216) BUN (test code = 15 MG/DL 09-30) CREATININE (test 0.72 MG/DL 0.60-1.30 code = 221) eGFR (2020 CKD-EPI) 93 ML/MIN/1.73 >60 (test code = 60624) CALC BUN/CREAT (test 21 RATIO 6-28 code = 223) SODIUM (test code = 143 MEQ/L [phone]) POTASSIUM (test code 3.8 MEQ/L 3.5-5.4 = [...] code = 36 U/L 5-40 2218) HEMOGLOBIN [id number] 03:31:34 Test Item Value Reference Range Interpretation Comments HEMOGLOBIN A1c (test 7.8 % 4.2-5.6 H AMERIC AN DIABETES code = 60794) ASSOCIATION IDELIN[employer] FOR HGB A1C: PREDIABETES/INC REASED [...] ATE TESTING OR LABORATORY C ONSULTATION. HEMOGLOBIN [id number] 00:00:00 Test Item Value Reference Range Interpretation Comments HEMOGLOBIN A1c (test code = 38680) 7.8 % HEMOGLOBIN [id number] 00:00:00 Test Item Value Reference Range Interpretation Comments HEMOGLOBIN A1c (test code = 62966) 7.8 % HEMOGLOBIN [id number] 00:00:00 Test Item Value Reference Range Interpretation Comments HEMOGLOBIN A1c (test code = 39734) 7.8 % COMPREHENSIVE METABOLIC [id number] 00:00:00 Test Item Value Reference Range Interpretation Comments GLUCOSE (test code = 2217) 93 MG/DL BUN (test code = 2208) 15 MG/DL CREATININE (test code = 2214) 0.72 MG/DL eGFR (2020 CKD-EPI) (test code 93 ML/MIN/1.73 = 46281) CALC BUN/CREAT (test code = 21 RATIO [...] code = 2219) 36 U/L COMPREHENSIVE METABOLIC [id number] 00:00:00 Test Item Value Reference Range Interpretation Comments GLUCOSE (test code = 2217) 93 MG/DL BUN (test code = 2208) 15 MG/DL CREATININE (test code = 2214) 0.72 MG/DL eGFR (2020 CKD-EPI) (test code 93 ML/MIN/1.73 = 48998) CALC BUN/CREAT (test code = 21 RATIO [...] ALT (test code = 2219) 36 U/L [id number] 00:00:00 Test Item Value Reference Range Interpretation Comments TSH, THIRD GENERATION (test code 1.300 UIU/ML = 2821) [id number] 00:00:00 Test Item Value Reference Range Interpretation Comments TSH, THIRD GENERATION (test code 1.300 UIU/ML = 2821) [id number] 00:00:00 Test Item Value Reference Range Interpretation Comments TSH, THIRD GENERATION (test code 1.300 UIU/ML = 2821) LIPID [id number] 00:00:00 Test Item Value Reference Range Interpretation Comments CHOLESTEROL (test code = 2210) 125 MG/DL TRIGLYCERIDES (test code = 2232) 167 MG/DL HDL CHOLESTEROL (test code = 2220) 54 MG/DL CALC LDL CHOL (test code = 2237) 46 MG/DL RISK RATIO LDL/HDL (test code = 0.85 RATIO 2238) LIPID [id number] 00:00:00 Test Item Value Reference Range Interpretation Comments CHOLESTEROL (test code = 2210) 125 MG/DL TRIGLYCERIDES (test code = 2232) 167 MG/DL HDL CHOLESTEROL (test code = 2220) 54 MG/DL CALC LDL CHOL (test code = 2237) 46 MG/DL RISK RATIO LDL/HDL (test code = 0.85 RATIO 2238) HEMOGLOBIN [id number] 00:00:00 Test Item Value Reference Range Interpretation Comments HEMOGLOBIN A1c (test code = 91756) 7.8 % HEMOGLOBIN [id number] 00:00:00 Test Item Value Reference Range Interpretation Comments HEMOGLOBIN A1c (test code = 31024) 7.8 % HEMOGLOBIN [id number] 00:00:00 Test Item Value Reference Range Interpretation Comments HEMOGLOBIN A1c (test code = 62949) 7.8 % COMPREHENSIVE METABOLIC [id number] 00:00:00 Test Item Value Reference Range Interpretation Comments GLUCOSE (test code = 2217) 93 MG/DL BUN (test code = 2208) 15 MG/DL CREATININE (test code = 2214) 0.72 MG/DL eGFR (2020 CKD-EPI) (test code 93 ML/MIN/1.73 = 52486) CALC BUN/CREAT (test code = 21 RATIO [...] code = 2219) 36 U/L COMPREHENSIVE METABOLIC [id number] 00:00:00 Test Item Value Reference Range Interpretation Comments GLUCOSE (test code = 2217) 93 MG/DL BUN (test code = 2208) 15 MG/DL CREATININE (test code = 2214) 0.72 MG/DL eGFR (2020 CKD-EPI) (test code 93 ML/MIN/1.73 = 09616) CALC BUN/CREAT (test code = 21 RATIO [...] ALT (test code = 2219) 36 U/L [id number] 00:00:00 Test Item Value Reference Range Interpretation Comments TSH, THIRD GENERATION (test code 1.300 UIU/ML = 2821) [id number] 00:00:00 Test Item Value Reference Range Interpretation Comments TSH, THIRD GENERATION (test code 1.300 UIU/ML = 2821) [id number] 00:00:00 Test Item Value Reference Range Interpretation Comments TSH, THIRD GENERATION (test code 1.300 UIU/ML = 2821) LIPID [id number] 00:00:00 Test Item Value Reference Range Interpretation Comments CHOLESTEROL (test code = 2210) 125 MG/DL TRIGLYCERIDES (test code = 2232) 167 MG/DL HDL CHOLESTEROL (test code = 2220) 54 MG/DL CALC LDL CHOL (test code = 2237) 46 MG/DL RISK RATIO LDL/HDL (test code = 0.85 RATIO 2238) LIPID [id number] 00:00:00 Test Item Value Reference Range Interpretation Comments CHOLESTEROL (test code = 2210) 125 MG/DL TRIGLYCERIDES (test code = 2232) 167 MG/DL HDL CHOLESTEROL (test code = 2220) 54 MG/DL CALC LDL CHOL (test code = 2237) 46 MG/DL RISK RATIO LDL/HDL (test code = 0.85 RATIO 2238) HEMOGLOBIN [id number] 00:00:00 Test Item Value Reference Range Interpretation Comments HEMOGLOBIN A1c (test code = 38242) 7.8 % HEMOGLOBIN [id number] 00:00:00 Test Item Value Reference Range Interpretation Comments HEMOGLOBIN A1c (test code = 73943) 7.8 % HEMOGLOBIN [id number] 00:00:00 Test Item Value Reference Range Interpretation Comments HEMOGLOBIN A1c (test code = 07501) 7.8 % COMPREHENSIVE METABOLIC [id number] 00:00:00 Test Item Value Reference Range Interpretation Comments GLUCOSE (test code = 2217) 93 MG/DL BUN (test code = 2208) 15 MG/DL CREATININE (test code = 2214) 0.72 MG/DL eGFR (2020 CKD-EPI) (test code 93 ML/MIN/1.73 = 83504) CALC BUN/CREAT (test code = 21 RATIO [...] code = 2219) 36 U/L COMPREHENSIVE METABOLIC [id number] 00:00:00 Test Item Value Reference Range Interpretation Comments GLUCOSE (test code = 2217) 93 MG/DL BUN (test code = 2208) 15 MG/DL CREATININE (test code = 2214) 0.72 MG/DL eGFR (2020 CKD-EPI) (test code 93 ML/MIN/1.73 = 47367) CALC BUN/CREAT (test code = 21 RATIO [...] ALT (test code = 2219) 36 U/L [id number] 00:00:00 Test Item Value Reference Range Interpretation Comments TSH, THIRD GENERATION (test code 1.300 UIU/ML = 2821) [id number] 00:00:00 Test Item Value Reference Range Interpretation Comments TSH, THIRD GENERATION (test code 1.300 UIU/ML = 2821) [id number] 00:00:00 Test Item Value Reference Range Interpretation Comments TSH, THIRD GENERATION (test code 1.300 UIU/ML = 2821) LIPID [id number] 00:00:00 Test Item Value Reference Range Interpretation Comments CHOLESTEROL (test code = 2210) 125 MG/DL TRIGLYCERIDES (test code = 2232) 167 MG/DL HDL CHOLESTEROL (test code = 2220) 54 MG/DL CALC LDL CHOL (test code = 2237) 46 MG/DL RISK RATIO LDL/HDL (test code = 0.85 RATIO 2238) LIPID [id number] 00:00:00 Test Item Value Reference Range Interpretation Comments CHOLESTEROL (test code = 2210) 125 MG/DL TRIGLYCERIDES (test code = 2232) 167 MG/DL HDL CHOLESTEROL (test code = 2220) 54 MG/DL CALC LDL CHOL (test code = 2237) 46 MG/DL RISK RATIO LDL/HDL (test code = 0.85 RATIO 2238) HEMOGLOBIN [id number] 00:00:00 Test Item Value Reference Range Interpretation Comments HEMOGLOBIN A1c (test code = 57375) 7.8 % HEMOGLOBIN [id number] 00:00:00 Test Item Value Reference Range Interpretation Comments HEMOGLOBIN A1c (test code = 83651) 7.8 % HEMOGLOBIN [id number] 00:00:00 Test Item Value Reference Range Interpretation Comments HEMOGLOBIN A1c (test code = 03916) 7.8 % COMPREHENSIVE METABOLIC [id number] 00:00:00 Test Item Value Reference Range Interpretation Comments GLUCOSE (test code = 2217) 93 MG/DL BUN (test code = 2208) 15 MG/DL CREATININE (test code = 2214) 0.72 MG/DL eGFR (2020 CKD-EPI) (test code 93 ML/MIN/1.73 = 29430) CALC BUN/CREAT (test code = 21 RATIO [...] code = 2219) 36 U/L COMPREHENSIVE METABOLIC [id number] 00:00:00 Test Item Value Reference Range Interpretation Comments GLUCOSE (test code = 2217) 93 MG/DL BUN (test code = 2208) 15 MG/DL CREATININE (test code = 2214) 0.72 MG/DL eGFR (2020 CKD-EPI) (test code 93 ML/MIN/1.73 = 91945) CALC BUN/CREAT (test code = 21 RATIO [...] ALT (test code = 2219) 36 U/L [id number] 00:00:00 Test Item Value Reference Range Interpretation Comments TSH, THIRD GENERATION (test code 1.300 UIU/ML = 2821) [id number] 00:00:00 Test Item Value Reference Range Interpretation Comments TSH, THIRD GENERATION (test code 1.300 UIU/ML = 2821) [id number] 00:00:00 Test Item Value Reference Range Interpretation Comments TSH, THIRD GENERATION (test code 1.300 UIU/ML = 2821) LIPID [id number] 00:00:00 Test Item Value Reference Range Interpretation Comments CHOLESTEROL (test code = 2210) 125 MG/DL TRIGLYCERIDES (test code = 2232) 167 MG/DL HDL CHOLESTEROL (test code = 2220) 54 MG/DL CALC LDL CHOL (test code = 2237) 46 MG/DL RISK RATIO LDL/HDL (test code = 0.85 RATIO 2238) LIPID [id number] 00:00:00 Test Item Value Reference Range Interpretation Comments CHOLESTEROL (test code = 2210) 125 MG/DL TRIGLYCERIDES (test code = 2232) 167 MG/DL HDL CHOLESTEROL (test code = 2220) 54 MG/DL CALC LDL CHOL (test code = 2237) 46 MG/DL RISK RATIO LDL/HDL (test code = 0.85 RATIO 2238) MICROALBUMIN/CREATININE, RANDOM AND [id number] 00:00:00 Test Item Value Reference Range Interpretation Comments CREATININE, URINE, CONC. (test 128.0 MG/DL code = 2072) ALBUMIN, URINE, RANDOM (test code 2.2 MG/DL = 77750) CALC ALBUMIN/CREAT, RND (test 17 MG/G code = 21349) MICROALBUMIN/CREATININE, RANDOM AND [id number] 00:00:00 Test Item Value Reference Range Interpretation Comments CREATININE, URINE, CONC. (test 128.0 MG/DL code = 2072) ALBUMIN, URINE, RANDOM (test code 2.2 MG/DL = 73912) CALC ALBUMIN/CREAT, RND (test 17 MG/G code = 72482) HEMOGLOBIN [id number] 00:00:00 Test Item Value Reference Range Interpretation Comments HEMOGLOBIN A1c (test code = 38571) 10.9 % HEMOGLOBIN [id number] 00:00:00 Test Item Value Reference Range Interpretation Comments HEMOGLOBIN A1c (test code = 08873) 10.9 % HEMOGLOBIN [id number] 00:00:00 Test Item Value Reference Range Interpretation Comments HEMOGLOBIN A1c (test code = 92096) 10.9 % MICROALBUMIN/CREATININE, RANDOM AND [id number] 00:00:00 Test Item Value Reference Range Interpretation Comments CREATININE, URINE, CONC. (test 128.0 MG/DL code = 2072) ALBUMIN, URINE, RANDOM (test code 2.2 MG/DL = 60377) CALC ALBUMIN/CREAT, RND (test 17 MG/G code = 54547) MICROALBUMIN/CREATININE, RANDOM AND [id number] 00:00:00 Test Item Value Reference Range Interpretation Comments CREATININE, URINE, CONC. (test 128.0 MG/DL code = 2072) ALBUMIN, URINE, RANDOM (test code 2.2 MG/DL = 40621) CALC ALBUMIN/CREAT, RND (test 17 MG/G code = 23334) HEMOGLOBIN [id number] 00:00:00 Test Item Value Reference Range Interpretation Comments HEMOGLOBIN A1c (test code = 49588) 10.9 % HEMOGLOBIN [id number] 00:00:00 Test Item Value Reference Range Interpretation Comments HEMOGLOBIN A1c (test code = 83407) 10.9 % HEMOGLOBIN [id number] 00:00:00 Test Item Value Reference Range Interpretation Comments HEMOGLOBIN A1c (test code = 22512) 10.9 % MICROALBUMIN/CREATININE, RANDOM AND [id number] 00:00:00 Test Item Value Reference Range Interpretation Comments CREATININE, URINE, CONC. (test 128.0 MG/DL code = 2072) ALBUMIN, URINE, RANDOM (test code 2.2 MG/DL = 21873) CALC ALBUMIN/CREAT, RND (test 17 MG/G code = 64234) MICROALBUMIN/CREATININE, RANDOM AND [id number] 00:00:00 Test Item Value Reference Range Interpretation Comments CREATININE, URINE, CONC. (test 128.0 MG/DL code = 2072) ALBUMIN, URINE, RANDOM (test code 2.2 MG/DL = 12642) CALC ALBUMIN/CREAT, RND (test 17 MG/G code = 39065) HEMOGLOBIN [id number] 00:00:00 Test Item Value Reference Range Interpretation Comments HEMOGLOBIN A1c (test code = 35132) 10.9 % HEMOGLOBIN [id number] 00:00:00 Test Item Value Reference Range Interpretation Comments HEMOGLOBIN A1c (test code = 88559) 10.9 % HEMOGLOBIN [id number] 00:00:00 Test Item Value Reference Range Interpretation Comments HEMOGLOBIN A1c (test code = 54916) 10.9 % MICROALBUMIN/CREATININE, RANDOM AND [id number] 00:00:00 Test Item Value Reference Range Interpretation Comments CREATININE, URINE, CONC. (test 128.0 MG/DL code = 2072) ALBUMIN, URINE, RANDOM (test code 2.2 MG/DL = 75488) CALC ALBUMIN/CREAT, RND (test 17 MG/G code = 00441) MICROALBUMIN/CREATININE, RANDOM AND [id number] 00:00:00 Test Item Value Reference Range Interpretation Comments CREATININE, URINE, CONC. (test 128.0 MG/DL code = 2072) ALBUMIN, URINE, RANDOM (test code 2.2 MG/DL = 12042) CALC ALBUMIN/CREAT, RND (test 17 MG/G code = 41446) HEMOGLOBIN [id number] 00:00:00 Test Item Value Reference Range Interpretation Comments HEMOGLOBIN A1c (test code = 98665) 10.9 % HEMOGLOBIN [id number] 00:00:00 Test Item Value Reference Range Interpretation Comments HEMOGLOBIN A1c (test code = 39660) 10.9 % HEMOGLOBIN [id number] 00:00:00 Test Item Value Reference Range Interpretation Comments HEMOGLOBIN A1c (test code = 77822) 10.9 % HEMOGLOBIN [id number] 00:00:00 Test Item Value Reference Range Interpretation Comments HEMOGLOBIN A1c (test code = 93591) 10.9 % HEMOGLOBIN [id number] 00:00:00 Test Item Value Reference Range Interpretation Comments HEMOGLOBIN A1c (test code = 95887) 10.9 % HEMOGLOBIN [id number] 00:00:00 Test Item Value Reference Range Interpretation Comments HEMOGLOBIN A1c (test code = 94984) 10.9 % HEMOGLOBIN [id number] 00:00:00 Test Item Value Reference Range Interpretation Comments HEMOGLOBIN A1c (test code = 58105) 10.9 % HEMOGLOBIN [id number] 00:00:00 Test Item Value Reference Range Interpretation Comments HEMOGLOBIN A1c (test code = 60732) 10.9 % HEMOGLOBIN [id number] 00:00:00 Test Item Value Reference Range Interpretation Comments HEMOGLOBIN A1c (test code = 36284) 10.9 % HEMOGLOBIN [id number] 00:00:00 Test Item Value Reference Range Interpretation Comments HEMOGLOBIN A1c (test code = 55442) 10.9 % HEMOGLOBIN [id number] 00:00:00 Test Item Value Reference Range Interpretation Comments HEMOGLOBIN A1c (test code = 80766) 10.9 % HEMOGLOBIN [id number] 00:00:00 Test Item Value Reference Range Interpretation Comments HEMOGLOBIN A1c (test code = 53757) 10.9 % HEMOGLOBIN [id number] 00:00:00 Test Item Value Reference Range Interpretation Comments HEMOGLOBIN A1c (test code = 60797) 10.9 % HEMOGLOBIN [id number] 00:00:00 Test Item Value Reference Range Interpretation Comments HEMOGLOBIN A1c (test code = 66696) 10.9 % HEMOGLOBIN [id number] 00:00:00 Test Item Value Reference Range Interpretation Comments HEMOGLOBIN A1c (test code = 30767) 10.9 % CBC W/AUTO [id number] 00:00:00 Test Item Value Reference Range Interpretation [...] code = 1015) 218 K/UL CBC W/AUTO [id number] 00:00:00 Test Item Value Reference Range Interpretation [...] code = 1015) 218 K/UL CBC W/AUTO [id number] 00:00:00 Test Item Value Reference Range Interpretation [...] (test code = 1015) 218 K/UL HEMOGLOBIN [id number] 00:00:00 Test Item Value Reference Range Interpretation Comments HEMOGLOBIN A1c (test code = 98657) 5.9 % HEMOGLOBIN [id number] 00:00:00 Test Item Value Reference Range Interpretation Comments HEMOGLOBIN A1c (test code = 26617) 5.9 % HEMOGLOBIN [id number] 00:00:00 Test Item Value Reference Range Interpretation Comments HEMOGLOBIN A1c (test code = 70261) 5.9 % LIPID [id number] 00:00:00 Test Item Value Reference Range Interpretation Comments CHOLESTEROL (test code = 2210) 131 MG/DL TRIGLYCERIDES (test code = 2232) 190 MG/DL HDL CHOLESTEROL (test code = 2220) 42 MG/DL CALC LDL CHOL (test code = 2237) 63 MG/DL RISK RATIO LDL/HDL (test code = 1.50 RATIO 8) LIPID [id number] 00:00:00 Test Item Value Reference Range Interpretation Comments CHOLESTEROL (test code = 2210) 131 MG/DL TRIGLYCERIDES (test code = 2232) 190 MG/DL HDL CHOLESTEROL (test code = 2220) 42 MG/DL CALC LDL CHOL (test code = 2237) 63 MG/DL RISK RATIO LDL/HDL (test code = 1.50 RATIO 2238) COMPREHENSIVE METABOLIC [id number] 00:00:00 Test Item Value Reference Range Interpretation Comments GLUCOSE (test code = 2217) 105 MG/DL BUN (test code = 2208) 17 MG/DL CREATININE (test code = 2214) 0.68 MG/DL eGFR AMER. (test code 107 ML/MIN/1.73 = 79681) eGFR NON- AMER. (test 92 ML/MIN/1.73 code = 15349) CALC BUN/CREAT (test code = 25 RATIO [...] code = 2219) 20 U/L COMPREHENSIVE METABOLIC [id number] 00:00:00 Test Item Value Reference Range Interpretation Comments GLUCOSE (test code = 2217) 105 MG/DL BUN (test code = 2208) 17 MG/DL CREATININE (test code = 2214) 0.68 MG/DL eGFR AMER. (test code 107 ML/MIN/1.73 = 81564) eGFR NON- AMER. (test 92 ML/MIN/1.73 code = 60154) CALC BUN/CREAT (test code = 25 RATIO [...] ALT (test code = 2219) 20 U/L [id number] 00:00:00 Test Item Value Reference Range Interpretation Comments TSH, THIRD GENERATION (test code 2.260 UIU/ML = 2821) [id number] 00:00:00 Test Item Value Reference Range Interpretation Comments TSH, THIRD GENERATION (test code 2.260 UIU/ML = 2821) [id number] 00:00:00 Test Item Value Reference Range Interpretation Comments TSH, THIRD GENERATION (test code 2.260 UIU/ML = 2821) CBC W/AUTO [id number] 00:00:00 Test Item Value Reference Range Interpretation [...] code = 1015) 218 K/UL CBC W/AUTO [id number] 00:00:00 Test Item Value Reference Range Interpretation [...] code = 1015) 218 K/UL CBC W/AUTO [id number] 00:00:00 Test Item Value Reference Range Interpretation [...] (test code = 1015) 218 K/UL HEMOGLOBIN [id number] 00:00:00 Test Item Value Reference Range Interpretation Comments HEMOGLOBIN A1c (test code = 21007) 5.9 % HEMOGLOBIN [id number] 00:00:00 Test Item Value Reference Range Interpretation Comments HEMOGLOBIN A1c (test code = 10979) 5.9 % HEMOGLOBIN [id number] 00:00:00 Test Item Value Reference Range Interpretation Comments HEMOGLOBIN A1c (test code = 62717) 5.9 % LIPID [id number] 00:00:00 Test Item Value Reference Range Interpretation Comments CHOLESTEROL (test code = 2210) 131 MG/DL TRIGLYCERIDES (test code = 2232) 190 MG/DL HDL CHOLESTEROL (test code = 2220) 42 MG/DL CALC LDL CHOL (test code = 2237) 63 MG/DL RISK RATIO LDL/HDL (test code = 1.50 RATIO 2238) LIPID [id number] 00:00:00 Test Item Value Reference Range Interpretation Comments CHOLESTEROL (test code = 2210) 131 MG/DL TRIGLYCERIDES (test code = 2232) 190 MG/DL HDL CHOLESTEROL (test code = 2220) 42 MG/DL CALC LDL CHOL (test code = 2237) 63 MG/DL RISK RATIO LDL/HDL (test code = 1.50 RATIO 2238) COMPREHENSIVE METABOLIC [id number] 00:00:00 Test Item Value Reference Range Interpretation Comments GLUCOSE (test code = 2217) 105 MG/DL BUN (test code = 2208) 17 MG/DL CREATININE (test code = 2214) 0.68 MG/DL eGFR AMER. (test code 107 ML/MIN/1.73 = 71010) eGFR NON- AMER. (test 92 ML/MIN/1.73 code = 25450) CALC BUN/CREAT (test code = 25 RATIO 2235) SODIUM (test code = 2231) 140 MEQ/L POTASSIUM (test code = 2228) 4.5 MEQ/L CHLORIDE (test code = 2215) 103 MEQ/L CARBON DIOXIDE (test code = 28 MEQ/L 6) CALCIUM (test code = 2209) 9.3 MG/DL [...] code = 2219) 20 U/L COMPREHENSIVE METABOLIC [id number] 00:00:00 Test Item Value Reference Range Interpretation Comments GLUCOSE (test code = 2217) 105 MG/DL BUN (test code = 2208) 17 MG/DL CREATININE (test code = 2214) 0.68 MG/DL eGFR AMER. (test code 107 ML/MIN/1.73 = 33289) eGFR NON- AMER. (test 92 ML/MIN/1.73 code = 81426) CALC BUN/CREAT (test code = 25 RATIO 5) SODIUM (test code = 2231) [...] ALT (test code = 2219) 20 U/L [id number] 00:00:00 Test Item Value Reference Range Interpretation Comments TSH, THIRD GENERATION (test code 2.260 UIU/ML = 2821) [id number] 00:00:00 Test Item Value Reference Range Interpretation Comments TSH, THIRD GENERATION (test code 2.260 UIU/ML = 2821) [id number] 00:00:00 Test Item Value Reference Range Interpretation Comments TSH, THIRD GENERATION (test code 2.260 UIU/ML = 2821) CBC W/AUTO [id number] 00:00:00 Test Item Value Reference Range Interpretation [...] code = 1015) 218 K/UL CBC W/AUTO [id number] 00:00:00 Test Item Value Reference Range Interpretation [...] code = 1015) 218 K/UL CBC W/AUTO [id number] 00:00:00 Test Item Value Reference Range Interpretation [...] (test code = 1015) 218 K/UL HEMOGLOBIN [id number] 00:00:00 Test Item Value Reference Range Interpretation Comments HEMOGLOBIN A1c (test code = 70695) 5.9 % HEMOGLOBIN [id number] 00:00:00 Test Item Value Reference Range Interpretation Comments HEMOGLOBIN A1c (test code = 33313) 5.9 % HEMOGLOBIN [id number] 00:00:00 Test Item Value Reference Range Interpretation Comments HEMOGLOBIN A1c (test code = 39101) 5.9 % LIPID [id number] 00:00:00 Test Item Value Reference Range Interpretation Comments CHOLESTEROL (test code = 2210) 131 MG/DL TRIGLYCERIDES (test code = 2232) 190 MG/DL HDL CHOLESTEROL (test code = 2220) 42 MG/DL CALC LDL CHOL (test code = 2237) 63 MG/DL RISK RATIO LDL/HDL (test code = 1.50 RATIO 2238) LIPID [id number] 00:00:00 Test Item Value Reference Range Interpretation Comments CHOLESTEROL (test code = 2210) 131 MG/DL TRIGLYCERIDES (test code = 2232) 190 MG/DL HDL CHOLESTEROL (test code = 2220) 42 MG/DL CALC LDL CHOL (test code = 2237) 63 MG/DL RISK RATIO LDL/HDL (test code = 1.50 RATIO 2238) COMPREHENSIVE METABOLIC [id number] 00:00:00 Test Item Value Reference Range Interpretation Comments GLUCOSE (test code = 2217) 105 MG/DL BUN (test code = 2208) 17 MG/DL CREATININE (test code = 2214) 0.68 MG/DL eGFR AMER. (test code 107 ML/MIN/1.73 = 24110) eGFR NON- AMER. (test 92 ML/MIN/1.73 code = 83498) CALC BUN/CREAT (test code = 25 RATIO [...] code = 2219) 20 U/L COMPREHENSIVE METABOLIC [id number] 00:00:00 Test Item Value Reference Range Interpretation Comments GLUCOSE (test code = 2217) 105 MG/DL BUN (test code = 2208) 17 MG/DL CREATININE (test code = 2214) 0.68 MG/DL eGFR AMER. (test code 107 ML/MIN/1.73 = 21387) eGFR NON- AMER. (test 92 ML/MIN/1.73 code = 75033) CALC BUN/CREAT (test code = 25 RATIO [...] ALT (test code = 2219) 20 U/L [id number] 00:00:00 Test Item Value Reference Range Interpretation Comments TSH, THIRD GENERATION (test code 2.260 UIU/ML = 2821) [id number] 00:00:00 Test Item Value Reference Range Interpretation Comments TSH, THIRD GENERATION (test code 2.260 UIU/ML = 2821) [id number] 00:00:00 Test Item Value Reference Range Interpretation Comments TSH, THIRD GENERATION (test code 2.260 UIU/ML = 2821) CBC W/AUTO [id number] 00:00:00 Test Item Value Reference Range Interpretation [...] code = 1015) 218 K/UL CBC W/AUTO [id number] 00:00:00 Test Item Value Reference Range Interpretation [...] code = 1015) 218 K/UL CBC W/AUTO [id number] 00:00:00 Test Item Value Reference Range Interpretation [...] (test code = 1015) 218 K/UL HEMOGLOBIN [id number] 00:00:00 Test Item Value Reference Range Interpretation Comments HEMOGLOBIN A1c (test code = 48686) 5.9 % HEMOGLOBIN [id number] 00:00:00 Test Item Value Reference Range Interpretation Comments HEMOGLOBIN A1c (test code = 06013) 5.9 % HEMOGLOBIN [id number] 00:00:00 Test Item Value Reference Range Interpretation Comments HEMOGLOBIN A1c (test code = 43284) 5.9 % LIPID [id number] 00:00:00 Test Item Value Reference Range Interpretation Comments CHOLESTEROL (test code = 2210) 131 MG/DL TRIGLYCERIDES (test code = 2232) 190 MG/DL HDL CHOLESTEROL (test code = 2220) 42 MG/DL CALC LDL CHOL (test code = 2237) 63 MG/DL RISK RATIO LDL/HDL (test code = 1.50 RATIO 2238) LIPID [id number] 00:00:00 Test Item Value Reference Range Interpretation Comments CHOLESTEROL (test code = 2210) 131 MG/DL TRIGLYCERIDES (test code = 2232) 190 MG/DL HDL CHOLESTEROL (test code = 2220) 42 MG/DL CALC LDL CHOL (test code = 2237) 63 MG/DL RISK RATIO LDL/HDL (test code = 1.50 RATIO 2238) COMPREHENSIVE METABOLIC [id number] 00:00:00 Test Item Value Reference Range Interpretation Comments GLUCOSE (test code = 2217) 105 MG/DL BUN (test code = 2208) 17 MG/DL CREATININE (test code = 2214) 0.68 MG/DL eGFR AMER. (test code 107 ML/MIN/1.73 = 75620) eGFR NON- AMER. (test 92 ML/MIN/1.73 code = 07640) CALC BUN/CREAT (test code = 25 RATIO [...] code = 2219) 20 U/L COMPREHENSIVE METABOLIC [id number] 00:00:00 Test Item Value Reference Range Interpretation Comments GLUCOSE (test code = 2217) 105 MG/DL BUN (test code = 2208) 17 MG/DL CREATININE (test code = 2214) 0.68 MG/DL eGFR AMER. (test code 107 ML/MIN/1.73 = 51286) eGFR NON- AMER. (test 92 ML/MIN/1.73 code = 84119) CALC BUN/CREAT (test code = 25 RATIO [...] ALT (test code = 2219) 20 U/L [id number] 00:00:00 Test Item Value Reference Range Interpretation Comments TSH, THIRD GENERATION (test code 2.260 UIU/ML = 2821) [id number] 00:00:00 Test Item Value Reference Range Interpretation Comments TSH, THIRD GENERATION (test code 2.260 UIU/ML = 2821) [id number] 00:00:00 Test Item Value Reference Range Interpretation Comments TSH, THIRD GENERATION (test code 2.260 UIU/ML = 2821) POCT GLUCOSE (AUTOMATED)2019-12-30 15:33:00 Test Item Value Reference Range Interpretation Comments POCT GLU (test code = 204 mg/dL 70-110 H Notifi ed Provider [id number]) Lab Interpretation (test Abnormal code = 03077-7) [facility] METABOLIC PANEL (NA, K, CL, CO2, GLUCOSE, BUN, CREATININE, CA)2019-12-30 10:50:00 Test Item Value Reference Range Interpretation Comments NA (test code = 137 mmol/L 135-145 7318809799) K (test code = 4.1 mmol/L 3.5-5 5372810335) CL (test code = 103 mmol/L 98-108 9377352239) CO2 TOTAL (test code = 29 mmol/L 23-31 5743616691) AGAP (test code = 2-16 6503693568) BUN (test code = 21 mg/dL 7-23 6872315551) GLUCOSE (test code = 97 mg/dL 70-110 0959636608) CREATININE (test code 0.67 mg/dL 0.5-1.04 = 9961692083) CALCIUM (test code = 9.0 mg/dL 8.6-10.6 2007564549) eGFR Calculation mL/min/1.73m2 (Non-) (test code = 6718066644) eGFR Calculation mL/min/1.73m2 () (test code = 9876867101) JOSHUA (test code = JOSHUA) Association of [...] or urine or abnormalities in imaging tests). [facility] Test Item Value Reference Range Interpretation Comments MAGNESIUM (test code = 1645194823) 2.2 mg/dL 1.7-2.4 Lab Interpretation (test code = Normal 24342-2) [facility] WITH [id number] 10:26:00 Test Item Value Reference Range Interpretation Comments WBC (test code = See_Comment [Automated 4590-2) message] The sy stem which generated this result transmitted reference range : 4.30 - 11.10 10*3/?L. The reference range was not used to interpret this result as normal/abnormal . RBC (test code = See_Comment [Automated 209-8) message] The sy stem which generated this [...] RDW-SD (test code = 44.0 fL 39-49.9 22469-7) RDW-CV (test code = 12.6 % 12-15.5 788-0) PLT (test code = See_Comment [Automated 777-3) message] The sy stem which generated this result transmitted reference range : 166 - 358 10*3/ ?L. The reference r ramona was not used to interpret this result as normal/abnormal . MPV (test code = 9.7 fL 9.5-12.9 35262-4) NRBC/100 WBC (test See_Comment [Automat ed code = 5274763169) message] The system which generated this result transmitted reference range : 0.0 - 10.0 /100 WBCs. The refer ence range was not u sed to interpret th is result as normal/abnormal . NRBC x10^3 (test code <0.01 See_Comment [Auto mated = 2701714684) message] The s ystem which generated this result transmitted reference range : 10*3/?L. The reference range was not used to interpret this result as normal/abnormal . GRAN MAT (NEUT) % 57.7 % (test code = 770-8) IMM GRAN % (test code 0.20 % = 0000673936) LYMPH % (test code = 31.8 % 736-9) MONO % (test code = 8.1 % 5905-5) EOS % (test code = 1.9 % 713-8) BASO % (test code = 0.3 % 706-2) GRAN MAT x10^3(ANC) 5.12 10*3/uL 1.88-7.09 (test code = 0334866573) IMM GRAN x10^3 (test <0.03 0-0.06 code = 8230770964) LYMPH x10^3 (test code 2.82 10*3/uL 1.32-3.29 = 731-0) MONO x10^3 (test code 0.72 10*3/uL 0.33-0.92 = 742-7) EOS x10^3 (test code = 0.17 10*3/uL 0.03-0.39 711-2) BASO x10^3 (test code 0.03 10*3/uL 0.01-0.07 = 704-7) Lab Interpretation Abnormal (test code = 90744-2) [facility] 01:52:00 Test Item Value Reference Range Interpretation Comments POCT GLU (test code = 2152868353) 199 mg/dL 70-110 H Lab Interpretation (test code = Abnormal 54184-4) [facility] GLUCOSE (AUTOMATED)2019-12-29 23:34:00 Test Item Value Reference Range Interpretation Comments POCT GLU (test code = 3523130310) 120 mg/dL 70-110 H Lab Interpretation (test code = Abnormal 51847-5) [facility] GLUCOSE (AUTOMATED)2019-12-29 14:02:00 Test Item Value Reference Range Interpretation Comments POCT GLU (test code = 1045326265) 99 mg/dL 70-110 Lab Interpretation (test code = Normal 07195-0) [facility] Metabolic Panel (NA, K, CL, CO2, GLUCOSE, BUN, CREATININE, CA)2019-12-29 11:40:00 Test Item Value Reference Range Interpretation Comments NA (test code = 139 mmol/L 135-145 3073943437) K (test code = 4.2 mmol/L 3.5-5 Slight 8430047064) hemolysis CL (test code = 104 mmol/L 98-108 2822378646) CO2 TOTAL (test code 30 mmol/L 23-31 = 5623754861) AGAP (test code = 2-16 0741620975) BUN (test code = 18 mg/dL 7-23 Slight 8344796363) hemolysis GLUCOSE (test code = 116 mg/dL 70-110 H 3042234032) CREATININE (test code 0.61 mg/dL 0.5-1.04 = 8767658694) CALCIUM (test code = 8.9 mg/dL 8.6-10.6 8577627104) eGFR Calculation mL/min/1.73m2 (Non-) (test code = 4914739893) eGFR Calculation mL/min/1.73m2 () (test code = 2952616618) JOSHUA (test code = JOSHUA) Association of [...] tests). Lab Interpretation Abnormal (test code = 09667-6) [facility] CenterMagnesium [id number] 11:40:00 Test Item Value Reference Range Interpretation Comments MAGNESIUM (test code = 3536425403) 2.2 mg/dL 1.7-2.4 Lab Interpretation (test code = Normal 92997-6) [facility]eraP[facility]for use with Heparin Drip)2019-12-29 11:21:00 Test Item Value Reference Range Interpretation Comments APTT Patient (test code See_Comment HH [Au tomated message] = 3173-2) The system [employer] generated this result transmitted ref erence range: 26 - 36 Seconds. The reference range was not used to int erpret this result as normal/abnormal . Lab Interpretation (test Abnormal code = 20996-2) [facility]2019-12-29 04:19:00 Test Item Value Reference Range Interpretation Comments POCT GLU (test code = 8520862055) 115 mg/dL 70-110 H Lab Interpretation (test code = Abnormal 19906-4) [facility] CenterLipid [facility] (Total Cholesterol, Triglycerides, HDL) - [id number] 03:03:00 Test Item Value Reference Range Interpretation Comments CHOL (test code = 164 mg/dL 120-200 3083009264) HDL (test code = 61 mg/dL >50 4438399385) HDLC RATIO (test code = See_Comment [Au tomated message] 6829780727) The system [employer] generated this result transmit shikha reference range : <=4.5. The refe rence range was not u sed to interpret th is result as normal/abnormal . TRIG (test code = 63 mg/dL 30-170 6359145766) LDL CHOL (test code = 90 mg/dL See_Comment [Auto mated message] 15086-5) The system [employer] generated this result transmit shikha reference range : <=160. The refe rence range was not u sed to interpret th is result as normal/abnormal . VLDL (test code = 13 mg/dL 5-60 4954316430) Lab Interpretation (test Normal code = 11606-5) [facility] Drip[facility]2019-12-29 00:36:00 Test Item Value Reference Range Interpretation Comments APTT Patient (test code See_Comment H [Au tomated message] = 3173-2) The system [employer] generated this result transmitted ref erence range: 26 - 36 Seconds. The reference range was not used to int erpret this result as normal/abnormal . Lab Interpretation (test Abnormal code = 19800-9) [facility] CenterTROPONIN [id number] 21:42:00 Test Item Value Reference Range Interpretation Comments TROPONIN I (test 0.081 ng/mL See_Comment H [Automated code = 4482812017) message] The system which generated this result [...] ? Lab Interpretation Abnormal (test code = 46944-0) [facility] CenterProthrombin Time (PT) / [id number] 12:39:00 Test Item Value Reference Range Interpretation Comments PROTIME PATIENT (test See_Comment [Auto mated message] code = 5964-2) The system Cardiac Systemz ich generated this result transmitted ref erence range: 10.1 - 1 2.6 Seconds. The re ference range was not u sed to interpret this result as normal/abnor mal. INR (test code = 6301-6) Nor mal INR <1.1; Warfarin Therap eutic range 2.0 to 3. 0 or 2.5 to 3.5, dep ending upon the indica tions. Lab Interpretation (test Normal code = 69204-2) [facility]eraPTT2020-[facility] 12:39:00 Test Item Value Reference Range Interpretation Comments APTT Patient (test code = See_Comment [ Automated message] 3173-2) The system Akella h generated this result transmitted ref erence range: 26 - 36 Seconds. The re ference range was not u sed to interpret this result as normal/abnor mal. Lab Interpretation (test Normal code = 04520-9) [facility] CenterTroponin [id number] 11:11:00 Test Item Value Reference Range Interpretation Comments TROPONIN I (test 0.148 ng/mL See_Comment H [Automated code = 4940957692) message] The system which generated this result [...] ? Lab Interpretation Abnormal (test code = 46409-5) [facility] CenterGlycosylated Hemoglobin (A1C)2019-12-28 10:57:00 Test Item Value Reference Range Interpretation Comments HGB A1C (test code = 5.8 % 4-6 4548-4) JOSHUA (test code = JOSHUA) %A1C (NGSP) Interpretation (ADA)4.8-5.6 ? ? Normal or (Non-Diabetic Range)5.7-6.4 ? ? Increased Risk (Pre-Diabetic)>6.5 ?Diabetes Indicated Lab Interpretation Normal (test code = 97381-4) [facility] CenterThyroid Stimulating Hormone (TSH)2019-12-28 10:22:00 Test Item Value Reference Range Interpretation Comments TSH (test code = See_Comment Biotin has been 0088243516) reported to cau se a negative bias, interpret resul ts relative to pat iainconrad's use of biotin. [Automated mess age] The system Cardiac [employer] generated this result transmitted ref erence range: 0.45 - 4 .70 mIU/L. The refe rence range was not u sed to interpret this result as normal/abnor mal. Lab Interpretation (test Normal code = 57899-2) [facility] CenterN-Terminal [id number] 10:22:00 Test Item Value Reference Range Interpretation Comments NT-proBNP (test code 636 pg/mL See_Comment H [Autom ated = 1306560216) message] The system which generated this result transmitted reference range : <=125. The reference range was not used to interpret this result as normal/abnormal . JOSHUA (test code = JOSHUA) Biotin has been reported to cause a negative bias, interpret results relative to patient's use of biotin. Lab Interpretation Abnormal (test code = 27650-9) [facility] CenterCT CHEST PULMONARY [id number] 05:35:31 No acute pulmonary embolism through the segmental level. Moderate emphysematous changes. Technically indeterminate 1.5 cm left adrenal nodule. Recommend multiphasicCT or MRI adrenal protocol to further characterize. Preliminary Report Dictated by Resident: Dillon Saunders ?MD Dayday., have reviewed this study and agree with [...] this study and agree with theabove report. [facility] CenterXR CHEST 1 [id number] 03:07:42 No acute cardiopulmonary abnormality. Preliminary Report Dictated by Resident: Parr MosDillon Huerta MD., have reviewed this study and agree [...] reviewed this study and agree with theabove report.[facility] [id number] 02:26:00 Test Item Value Reference Range Interpretation Comments TROPONIN I (test 0.048 ng/mL See_Comment H [Automated code = 2751686794) message] The system which generated this result [...] ? Lab Interpretation Abnormal (test code = 05947-1) [facility] CenterCOVID[facility]19 (ID NOW RAPID TESTING)2019-12-28 02:22:00 Test Item Value Reference Range Interpretation Comments SARS-CoV-2 Rapid ID NOW Not Detected Not Detected (test code = 33269-9) JOSHUA (test code = JOSHUA) ID NOW COVID-19 Assay is an isothermal nucleic acid amplification test intended for the qualitative detection of nucleic acid from SARS-CoV-2 viral RNA in nasopharyngeal (COMMUNICATIONS LEAD) specimens. It is used under Emergency Use [...] indicated. Lab Interpretation Normal (test code = 53150-0) [facility]. METABOLIC PANEL (53141)2019-12-28 02:16:00 Test Item Value Reference Range Interpretation Comments NA (test code = 137 mmol/L 135-145 5621431133) K (test code = 3.8 mmol/L 3.5-5 0828647114) CL (test code = 101 mmol/L 98-108 4110542935) CO2 TOTAL (test code = 31 mmol/L 23-31 8593100550) AGAP (test code = 2-16 7106562778) BUN (test code = 18 mg/dL 7-23 1476266655) GLUCOSE (test code = 145 mg/dL 70-110 H 0315003022) CREATININE (test code = 0.55 mg/dL 0.5-1.04 7565239237) TOTAL BILI (test code = 0.4 mg/dL 0.1-1.7 9288264810) CALCIUM (test code = 8.8 mg/dL 8.6-10.6 0050555319) T PROTEIN (test code = 6.7 g/dL 6.3-8.2 9379965521) ALBUMIN (test code = 4.1 g/dL 3.5-5 0620824958) ALK PHOS (test code = 72 U/L 34-122 3364527079) ALTv (test code = 40 U/L 5-35 H 1742-6) AST(SGOT) (test code = 46 U/L 13-40 H 3284849116) eGFR Calculation mL/min/1.73m2 (Non-) (test code = 0972164907) eGFR Calculation mL/min/1.73m2 () (test code = 3326700774) JOSHUA (test code = JOSHUA) Association of [...] tests). Lab Interpretation Abnormal (test code = 98081-1) [facility] METABOLIC PANEL (NA, K, CL, CO2, GLUCOSE, BUN, CREATININE, CA)2019-12-28 02:16:00 Test Item Value Reference Range Interpretation Comments NA (test code = 137 mmol/L 135-145 5291708361) K (test code = 3.8 mmol/L 3.5-5 2580545984) CL (test code = 101 mmol/L 98-108 2602214125) CO2 TOTAL (test code = 31 mmol/L 23-31 1743963705) AGAP (test code = 2-16 9839146741) BUN (test code = 18 mg/dL 7-23 9715295738) GLUCOSE (test code = 145 mg/dL 70-110 H 3939607127) CREATININE (test code = 0.55 mg/dL 0.5-1.04 3930802373) CALCIUM (test code = 8.8 mg/dL 8.6-10.6 2388044483) eGFR Calculation mL/min/1.73m2 (Non-) (test code = 4169897034) eGFR Calculation mL/min/1.73m2 () (test code = 2549795346) JOSHUA (test code = JOSHUA) Association of [...] tests). Lab Interpretation Abnormal (test code = 55859-6) [facility] WITH [id number] 02:01:00 Test Item Value Reference Range Interpretation Comments WBC (test code = See_Comment [Automated 6490-2) message] The sy stem which generated this result transmitted reference range : 4.30 - 11.10 10*3/?L. The reference range was not used to interpret this result as normal/abnormal . RBC (test code = See_Comment [Automated 849-8) message] The sy stem which generated this [...] RDW-SD (test code = 42.5 fL 39-49.9 18796-9) RDW-CV (test code = 12.2 % 12-15.5 788-0) PLT (test code = See_Comment [Automated 777-3) message] The sy stem which generated this result transmitted reference range : 166 - 358 10*3/ ?L. The reference r ramona was not used to interpret this result as normal/abnormal . MPV (test code = 9.7 fL 9.5-12.9 46248-3) NRBC/100 WBC (test See_Comment [Automat ed code = 8805612015) message] The system which generated this result transmitted reference range : 0.0 - 10.0 /100 WBCs. The refer ence range was not u sed to interpret th is result as normal/abnormal . NRBC x10^3 (test code <0.01 See_Comment [Auto mated = 5667158616) message] The s ystem which generated this result transmitted reference range : 10*3/?L. The reference range was not used to interpret this result as normal/abnormal . GRAN MAT (NEUT) % 52.2 % (test code = 770-8) IMM GRAN % (test code 0.30 % = 3365489311) LYMPH % (test code = 36.0 % 736-9) MONO % (test code = 7.3 % 5905-5) EOS % (test code = 3.7 % 713-8) BASO % (test code = 0.5 % 706-2) GRAN MAT x10^3(ANC) 3.36 10*3/uL 1.88-7.09 (test code = 5701966139) IMM GRAN x10^3 (test <0.03 0-0.06 code = 1462179033) LYMPH x10^3 (test code 2.32 10*3/uL 1.32-3.29 = 731-0) MONO x10^3 (test code 0.47 10*3/uL 0.33-0.92 = 742-7) EOS x10^3 (test code = 0.24 10*3/uL 0.03-0.39 711-2) BASO x10^3 (test code 0.03 10*3/uL 0.01-0.07 = 704-7) Lab Interpretation Abnormal (test code = 82195-7) [facility] [id number] 00:00:00 Test Item Value Reference Range Interpretation Comments GLUCOSE (test code = 2217) 110 MG/DL BUN (test code = 2208) 17 MG/DL CREATININE (test code = 2214) 0.63 MG/DL eGFR AMER. (test code 111 ML/MIN/1.73 = 20535) eGFR NON- AMER. (test 95 ML/MIN/1.73 code = 50271) CALC BUN/CREAT (test code = 27 RATIO [...] code = 2219) 26 U/L COMPREHENSIVE METABOLIC [id number] 00:00:00 Test Item Value Reference Range Interpretation Comments GLUCOSE (test code = 2217) 110 MG/DL BUN (test code = 2208) 17 MG/DL CREATININE (test code = 2214) 0.63 MG/DL eGFR AMER. (test code 111 ML/MIN/1.73 = 44623) eGFR NON- AMER. (test 95 ML/MIN/1.73 code = 60071) CALC BUN/CREAT (test code = 27 RATIO [...] code = 2219) 26 U/L COMPREHENSIVE METABOLIC [id number] 00:00:00 Test Item Value Reference Range Interpretation Comments GLUCOSE (test code = 2217) 110 MG/DL BUN (test code = 2208) 17 MG/DL CREATININE (test code = 2214) 0.63 MG/DL eGFR AMER. (test code 111 ML/MIN/1.73 = 40991) eGFR NON- AMER. (test 95 ML/MIN/1.73 code = 17965) CALC BUN/CREAT (test code = 27 RATIO [...] code = 2219) 26 U/L COMPREHENSIVE METABOLIC [id number] 00:00:00 Test Item Value Reference Range Interpretation Comments GLUCOSE (test code = 2217) 110 MG/DL BUN (test code = 2208) 17 MG/DL CREATININE (test code = 2214) 0.63 MG/DL eGFR AMER. (test code 111 ML/MIN/1.73 = 73000) eGFR NON- AMER. (test 95 ML/MIN/1.73 code = 22474) CALC BUN/CREAT (test code = 27 RATIO [...] code = 2219) 26 U/L COMPREHENSIVE METABOLIC [id number] 00:00:00 Test Item Value Reference Range Interpretation Comments GLUCOSE (test code = 2217) 110 MG/DL BUN (test code = 2208) 17 MG/DL CREATININE (test code = 2214) 0.63 MG/DL eGFR AMER. (test code 111 ML/MIN/1.73 = 73586) eGFR NON- AMER. (test 95 ML/MIN/1.73 code = 21922) CALC BUN/CREAT (test code = 27 RATIO [...] code = 2219) 26 U/L COMPREHENSIVE METABOLIC [id number] 00:00:00 Test Item Value Reference Range Interpretation Comments GLUCOSE (test code = 2217) 110 MG/DL BUN (test code = 2208) 17 MG/DL CREATININE (test code = 2214) 0.63 MG/DL eGFR AMER. (test code 111 ML/MIN/1.73 = 13854) eGFR NON- AMER. (test 95 ML/MIN/1.73 code = 73533) CALC BUN/CREAT (test code = 27 RATIO [...] code = 2219) 26 U/L COMPREHENSIVE METABOLIC [id number] 00:00:00 Test Item Value Reference Range Interpretation Comments GLUCOSE (test code = 2217) 110 MG/DL BUN (test code = 2208) 17 MG/DL CREATININE (test code = 2214) 0.63 MG/DL eGFR AMER. (test code 111 ML/MIN/1.73 = 95325) eGFR NON- AMER. (test 95 ML/MIN/1.73 code = 20967) CALC BUN/CREAT (test code = 27 RATIO [...] code = 2219) 26 U/L COMPREHENSIVE METABOLIC [id number] 00:00:00 Test Item Value Reference Range Interpretation Comments GLUCOSE (test code = 2217) 110 MG/DL BUN (test code = 2208) 17 MG/DL CREATININE (test code = 2214) 0.63 MG/DL eGFR AMER. (test code 111 ML/MIN/1.73 = 18384) eGFR NON- AMER. (test 95 ML/MIN/1.73 code = 94784) CALC BUN/CREAT (test code = 27 RATIO [...] code = 2219) 26 U/L COMPREHENSIVE METABOLIC [id number] 00:00:00 Test Item Value Reference Range Interpretation Comments GLUCOSE (test code = 2217) 78 MG/DL BUN (test code = 2208) 13 MG/DL CREATININE (test code = 2214) 0.57 MG/DL eGFR AMER. (test code 114 ML/MIN/1.73 = 36575) eGFR NON- AMER. (test 99 ML/MIN/1.73 code = 65715) CALC BUN/CREAT (test code = 23 RATIO [...] code = 2219) 27 U/L COMPREHENSIVE METABOLIC [id number] 00:00:00 Test Item Value Reference Range Interpretation Comments GLUCOSE (test code = 2217) 78 MG/DL BUN (test code = 2208) 13 MG/DL CREATININE (test code = 2214) 0.57 MG/DL eGFR AMER. (test code 114 ML/MIN/1.73 = 59397) eGFR NON- AMER. (test 99 ML/MIN/1.73 code = 27494) CALC BUN/CREAT (test code = 23 RATIO [...] code = 2219) 27 U/L CBC W/AUTO [id number] 00:00:00 Test Item Value Reference Range Interpretation [...] code = 1015) 268 K/UL CBC W/AUTO [id number] 00:00:00 Test Item Value Reference Range Interpretation [...] code = 1015) 268 K/UL CBC W/AUTO [id number] 00:00:00 Test Item Value Reference Range Interpretation [...] code = 1015) 268 K/UL COMPREHENSIVE METABOLIC [id number] 00:00:00 Test Item Value Reference Range Interpretation Comments GLUCOSE (test code = 2217) 78 MG/DL BUN (test code = 2208) 13 MG/DL CREATININE (test code = 2214) 0.57 MG/DL eGFR AMER. (test code 114 ML/MIN/1.73 = 96733) eGFR NON- AMER. (test 99 ML/MIN/1.73 code = 16340) CALC BUN/CREAT (test code = 23 RATIO [...] code = 2219) 27 U/L COMPREHENSIVE METABOLIC [id number] 00:00:00 Test Item Value Reference Range Interpretation Comments GLUCOSE (test code = 2217) 78 MG/DL BUN (test code = 2208) 13 MG/DL CREATININE (test code = 2214) 0.57 MG/DL eGFR AMER. (test code 114 ML/MIN/1.73 = 14632) eGFR NON- AMER. (test 99 ML/MIN/1.73 code = 64299) CALC BUN/CREAT (test code = 23 RATIO [...] code = 2219) 27 U/L CBC W/AUTO [id number] 00:00:00 Test Item Value Reference Range Interpretation [...] code = 1015) 268 K/UL CBC W/AUTO [id number] 00:00:00 Test Item Value Reference Range Interpretation [...] code = 1015) 268 K/UL CBC W/AUTO [id number] 00:00:00 Test Item Value Reference Range Interpretation [...] code = 1015) 268 K/UL COMPREHENSIVE METABOLIC [id number] 00:00:00 Test Item Value Reference Range Interpretation Comments GLUCOSE (test code = 2217) 78 MG/DL BUN (test code = 2208) 13 MG/DL CREATININE (test code = 2214) 0.57 MG/DL eGFR AMER. (test code 114 ML/MIN/1.73 = 05404) eGFR NON- AMER. (test 99 ML/MIN/1.73 code = 67769) CALC BUN/CREAT (test code = 23 RATIO [...] code = 2219) 27 U/L COMPREHENSIVE METABOLIC [id number] 00:00:00 Test Item Value Reference Range Interpretation Comments GLUCOSE (test code = 2217) 78 MG/DL BUN (test code = 2208) 13 MG/DL CREATININE (test code = 2214) 0.57 MG/DL eGFR AMER. (test code 114 ML/MIN/1.73 = 83246) eGFR NON- AMER. (test 99 ML/MIN/1.73 code = 57241) CALC BUN/CREAT (test code = 23 RATIO [...] code = 2219) 27 U/L CBC W/AUTO [id number] 00:00:00 Test Item Value Reference Range Interpretation [...] code = 1015) 268 K/UL CBC W/AUTO [id number] 00:00:00 Test Item Value Reference Range Interpretation [...] code = 1015) 268 K/UL CBC W/AUTO [id number] 00:00:00 Test Item Value Reference Range Interpretation [...] code = 1015) 268 K/UL COMPREHENSIVE METABOLIC [id number] 00:00:00 Test Item Value Reference Range Interpretation Comments GLUCOSE (test code = 2217) 78 MG/DL BUN (test code = 2208) 13 MG/DL CREATININE (test code = 2214) 0.57 MG/DL eGFR AMER. (test code 114 ML/MIN/1.73 = 41378) eGFR NON- AMER. (test 99 ML/MIN/1.73 code = 45201) CALC BUN/CREAT (test code = 23 RATIO [...] code = 2219) 27 U/L COMPREHENSIVE METABOLIC [id number] 00:00:00 Test Item Value Reference Range Interpretation Comments GLUCOSE (test code = 2217) 78 MG/DL BUN (test code = 2208) 13 MG/DL CREATININE (test code = 2214) 0.57 MG/DL eGFR AMER. (test code 114 ML/MIN/1.73 = 78896) eGFR NON- AMER. (test 99 ML/MIN/1.73 code = 17009) CALC BUN/CREAT (test code = 23 RATIO [...] code = 2219) 27 U/L CBC W/AUTO [id number] 00:00:00 Test Item Value Reference Range Interpretation [...] code = 1015) 268 K/UL CBC W/AUTO [id number] 00:00:00 Test Item Value Reference Range Interpretation [...] code = 1015) 268 K/UL CBC W/AUTO [id number] 00:00:00 Test Item Value Reference Range Interpretation [...] code = 1015) 268 K/UL Chest 1 [id number] 22:39:59 No acute cardiopulmonary abnormality. Emphysematous changes. [...] reviewed this study and agree with the abovereport.[facility]nin [id number] 22:28:00 Test Item Value Reference Range Interpretation Comments TROPONIN I (test <0.012 See_Comment [Automated code = 8479614368) message] The system which generated this result [...] ? Lab Interpretation Normal (test code = 73708-3) [id number] 22:24:00 Test Item Value Reference Range Interpretation Comments NT-proBNP (test code 675 pg/mL See_Comment H [Autom ated = 3638990819) message] The system which generated this result transmitted reference range : <=125. The reference range was not used to interpret this result as normal/abnormal . JOSHUA (test code = JOSHUA) Biotin has been reported to cause a negative bias, interpret results relative to patient's use of biotin. Lab Interpretation Abnormal (test code = 06667-0) [facility] CenterProth[facility] (PT[facility] / [id number] 22:20:00 Test Item Value Reference Range Interpretation [...] tions. Lab Interpretation (test Normal code = 49071-9) [facility] (NA, K, CL, CO2, GLUCOSE, BUN, CREATININE, CA)2019-07-27 22:17:00 Test Item Value Reference Range Interpretation Comments NA (test code = 138 mmol/L 135-145 6648095530) K (test code = 4.4 mmol/L 3.5-5 1149420642) CL (test code = 101 mmol/L 98-108 8418689502) CO2 TOTAL (test code = 28 mmol/L 23-31 1753600802) AGAP (test code = 2-16 9280187126) BUN (test code = 16 mg/dL 7-23 2710851868) GLUCOSE (test code = 88 mg/dL 70-110 6249430339) CREATININE (test code 0.55 mg/dL 0.5-1.04 = 1616679215) CALCIUM (test code = 10.1 mg/dL 8.6-10.6 0745640093) eGFR Calculation mL/min/1.73m2 (Non-) (test code = 2898965300) eGFR Calculation mL/min/1.73m2 () (test code = 5358890873) JOSHUA (test code = JOSHUA) Association of [...] or urine or abnormalities in imaging tests). [facility] (ALB, T.PRO, BILI T, BU/BC, ALT, AST, ALK PHOS)2019-07-27 22:17:00 Test Item Value Reference Range Interpretation Comments TOTAL BILI (test code = 7009030152) 0.7 mg/dL 0.1-1.1 BILI UNCON (test code = 3367091524) 0.8 mg/dL 0.1-1.1 BILI CONJ (test code = 6181267086) 0.0 mg/dL 0-0.3 T PROTEIN (test code = 7625985905) 7.7 g/dL 6.3-8.2 ALBUMIN (test code = 0006703085) 4.8 g/dL 3.5-5 ALK PHOS (test code = 3313036894) 49 U/L 34-122 ALTv (test code = 1742-6) 35 U/L 5-35 AST(SGOT) (test code = 8939011165) 42 U/L 13-40 H Lab Interpretation (test code = Abnormal 24542-5) [facility] CenterCOVID[facility] (ID NOW RAPID TESTING)2019-07-27 22:16:00 Test Item Value Reference Range Interpretation Comments SARS-CoV-2 Rapid ID NOW Not Detected Not Detected (test code = 03778-1) JOSHUA (test code = JOSHUA) ID NOW COVID-19 Assay is an isothermal nucleic acid amplification test intended for the qualitative detection of nucleic acid from SARS-CoV-2 viral RNA in nasopharyngeal (COMMUNICATIONS LEAD) specimens. It is used under Emergency Use [...] indicated. Lab Interpretation Normal (test code = 84211-1) [facility] WITH [id number] 21:58:00 Test Item Value Reference Range Interpretation Comments WBC (test code = See_Comment [Automated 1378-2) message] The sy stem which generated this result transmitted reference range : 4.30 - 11.10 10*3/?L. The reference range was not used to interpret this result as normal/abnormal . RBC (test code = See_Comment [Automated 192-8) message] The sy stem which generated this [...] RDW-SD (test code = 41.4 fL 39-49.9 81492-3) RDW-CV (test code = 12.2 % 12-15.5 788-0) PLT (test code = See_Comment [Automated 777-3) message] The sy stem which generated this result transmitted reference range : 166 - 358 10*3/ ?L. The reference r ramona was not used to interpret this result as normal/abnormal . MPV (test code = 9.7 fL 9.5-12.9 98963-9) NRBC/100 WBC (test See_Comment [Automat ed code = 5132016258) message] The system which generated this result transmitted reference range : 0.0 - 10.0 /100 WBCs. The refer ence range was not u sed to interpret th is result as normal/abnormal . NRBC x10^3 (test code <0.01 See_Comment [Auto mated = 3976338527) message] The s ystem which generated this result transmitted reference range : 10*3/?L. The reference range was not used to interpret this result as normal/abnormal . GRAN MAT (NEUT) % 72.2 % (test code = 770-8) IMM GRAN % (test code 0.40 % = 7466007476) LYMPH % (test code = 19.5 % 736-9) MONO % (test code = 5.2 % 5905-5) EOS % (test code = 2.1 % 713-8) BASO % (test code = 0.6 % 706-2) GRAN MAT x10^3(ANC) 7.15 10*3/uL 1.88-7.09 H (test code = 5423898705) IMM GRAN x10^3 (test 0.04 10*3/uL 0-0.06 code = 4461902763) LYMPH x10^3 (test code 1.93 10*3/uL 1.32-3.29 = 731-0) MONO x10^3 (test code 0.52 10*3/uL 0.33-0.92 = 742-7) EOS x10^3 (test code = 0.21 10*3/uL 0.03-0.39 711-2) BASO x10^3 (test code 0.06 10*3/uL 0.01-0.07 = 704-7) Lab Interpretation Abnormal (test code = 02114-7) [facility] CenterCOMPRE[facility] [id number] 00:00:00 Test Item Value Reference Range Interpretation Comments GLUCOSE (test code = 2217) 113 MG/DL BUN (test code = 2208) 8 MG/DL CREATININE (test code = 2214) 0.64 MG/DL eGFR AMER. (test code 110 ML/MIN/1.73 = 53560) eGFR NON- AMER. (test 95 ML/MIN/1.73 code = 54829) CALC BUN/CREAT (test code = 13 RATIO [...] code = 2219) 28 U/L COMPREHENSIVE METABOLIC [id number] 00:00:00 Test Item Value Reference Range Interpretation Comments GLUCOSE (test code = 2217) 113 MG/DL BUN (test code = 2208) 8 MG/DL CREATININE (test code = 2214) 0.64 MG/DL eGFR AMER. (test code 110 ML/MIN/1.73 = 00575) eGFR NON- AMER. (test 95 ML/MIN/1.73 code = 79643) CALC BUN/CREAT (test code = 13 RATIO [...] code = 2219) 28 U/L COMPREHENSIVE METABOLIC [id number] 00:00:00 Test Item Value Reference Range Interpretation Comments GLUCOSE (test code = 2217) 113 MG/DL BUN (test code = 2208) 8 MG/DL CREATININE (test code = 2214) 0.64 MG/DL eGFR AMER. (test code 110 ML/MIN/1.73 = 25028) eGFR NON- AMER. (test 95 ML/MIN/1.73 code = 30276) CALC BUN/CREAT (test code = 13 RATIO [...] code = 2219) 28 U/L COMPREHENSIVE METABOLIC [id number] 00:00:00 Test Item Value Reference Range Interpretation Comments GLUCOSE (test code = 2217) 113 MG/DL BUN (test code = 2208) 8 MG/DL CREATININE (test code = 2214) 0.64 MG/DL eGFR AMER. (test code 110 ML/MIN/1.73 = 72760) eGFR NON- AMER. (test 95 ML/MIN/1.73 code = 91757) CALC BUN/CREAT (test code = 13 RATIO [...] code = 2219) 28 U/L COMPREHENSIVE METABOLIC [id number] 00:00:00 Test Item Value Reference Range Interpretation Comments GLUCOSE (test code = 2217) 113 MG/DL BUN (test code = 2208) 8 MG/DL CREATININE (test code = 2214) 0.64 MG/DL eGFR AMER. (test code 110 ML/MIN/1.73 = 55385) eGFR NON- AMER. (test 95 ML/MIN/1.73 code = 18245) CALC BUN/CREAT (test code = 13 RATIO [...] code = 2219) 28 U/L COMPREHENSIVE METABOLIC [id number] 00:00:00 Test Item Value Reference Range Interpretation Comments GLUCOSE (test code = 2217) 113 MG/DL BUN (test code = 2208) 8 MG/DL CREATININE (test code = 2214) 0.64 MG/DL eGFR AMER. (test code 110 ML/MIN/1.73 = 82214) eGFR NON- AMER. (test 95 ML/MIN/1.73 code = 07131) CALC BUN/CREAT (test code = 13 RATIO [...] code = 2219) 28 U/L COMPREHENSIVE METABOLIC [id number] 00:00:00 Test Item Value Reference Range Interpretation Comments GLUCOSE (test code = 2217) 113 MG/DL BUN (test code = 2208) 8 MG/DL CREATININE (test code = 2214) 0.64 MG/DL eGFR AMER. (test code 110 ML/MIN/1.73 = 12497) eGFR NON- AMER. (test 95 ML/MIN/1.73 code = 11245) CALC BUN/CREAT (test code = 13 RATIO [...] code = 2219) 28 U/L COMPREHENSIVE METABOLIC [id number] 00:00:00 Test Item Value Reference Range Interpretation Comments GLUCOSE (test code = 2217) 113 MG/DL BUN (test code = 2208) 8 MG/DL CREATININE (test code = 2214) 0.64 MG/DL eGFR AMER. (test code 110 ML/MIN/1.73 = 28694) eGFR NON- AMER. (test 95 ML/MIN/1.73 code = 50259) CALC BUN/CREAT (test code = 13 RATIO 223) SODIUM (test code = 2231) 139 MEQ/L [...] (test code = 2219) 28 U/L HEMOGLOBIN [id number] 00:00:00 Test Item Value Reference Range Interpretation Comments HEMOGLOBIN A1c (test code = 29317) 5.9 % HEMOGLOBIN [id number] 00:00:00 Test Item Value Reference Range Interpretation Comments HEMOGLOBIN A1c (test code = 18147) 5.9 % LIPID [id number] 00:00:00 Test Item Value Reference Range Interpretation Comments CHOLESTEROL (test code = 2210) 138 MG/DL TRIGLYCERIDES (test code = 2232) 158 MG/DL HDL CHOLESTEROL (test code = 2220) 43 MG/DL CALC LDL CHOL (test code = 2237) 63 MG/DL RISK RATIO LDL/HDL (test code = 1.47 RATIO 2238) LIPID [id number] 00:00:00 Test Item Value Reference Range Interpretation Comments CHOLESTEROL (test code = 2210) 138 MG/DL TRIGLYCERIDES (test code = 2232) 158 MG/DL HDL CHOLESTEROL (test code = 2220) 43 MG/DL CALC LDL CHOL (test code = 2237) 63 MG/DL RISK RATIO LDL/HDL (test code = 1.47 RATIO 2238) COMPREHENSIVE METABOLIC [id number] 00:00:00 Test Item Value Reference Range Interpretation Comments GLUCOSE (test code = 2217) 103 MG/DL BUN (test code = 2208) 13 MG/DL CREATININE (test code = 2214) 0.83 MG/DL eGFR AMER. (test code 88 ML/MIN/1.73 = 70093) eGFR NON- AMER. (test 76 ML/MIN/1.73 code = 23508) CALC BUN/CREAT (test code = 16 RATIO [...] code = 2219) 20 U/L COMPREHENSIVE METABOLIC [id number] 00:00:00 Test Item Value Reference Range Interpretation Comments GLUCOSE (test code = 2217) 103 MG/DL BUN (test code = 2208) 13 MG/DL CREATININE (test code = 2214) 0.83 MG/DL eGFR AMER. (test code 88 ML/MIN/1.73 = 69697) eGFR NON- AMER. (test 76 ML/MIN/1.73 code = 42776) CALC BUN/CREAT (test code = 16 RATIO [...] (test code = 2219) 20 U/L HEMOGLOBIN [id number] 00:00:00 Test Item Value Reference Range Interpretation Comments HEMOGLOBIN A1c (test code = 45282) 5.9 % HEMOGLOBIN [id number] 00:00:00 Test Item Value Reference Range Interpretation Comments HEMOGLOBIN A1c (test code = 39749) 5.9 % HEMOGLOBIN [id number] 00:00:00 Test Item Value Reference Range Interpretation Comments HEMOGLOBIN A1c (test code = 61226) 5.9 % LIPID [id number] 00:00:00 Test Item Value Reference Range Interpretation Comments CHOLESTEROL (test code = 2210) 138 MG/DL TRIGLYCERIDES (test code = 2232) 158 MG/DL HDL CHOLESTEROL (test code = 2220) 43 MG/DL CALC LDL CHOL (test code = 2237) 63 MG/DL RISK RATIO LDL/HDL (test code = 1.47 RATIO 2238) LIPID [id number] 00:00:00 Test Item Value Reference Range Interpretation Comments CHOLESTEROL (test code = 2210) 138 MG/DL TRIGLYCERIDES (test code = 2232) 158 MG/DL HDL CHOLESTEROL (test code = 2220) 43 MG/DL CALC LDL CHOL (test code = 2237) 63 MG/DL RISK RATIO LDL/HDL (test code = 1.47 RATIO 2238) COMPREHENSIVE METABOLIC [id number] 00:00:00 Test Item Value Reference Range Interpretation Comments GLUCOSE (test code = 2217) 103 MG/DL BUN (test code = 2208) 13 MG/DL CREATININE (test code = 2214) 0.83 MG/DL eGFR AMER. (test code 88 ML/MIN/1.73 = 84084) eGFR NON- AMER. (test 76 ML/MIN/1.73 code = 18771) CALC BUN/CREAT (test code = 16 RATIO [...] code = 2219) 20 U/L COMPREHENSIVE METABOLIC [id number] 00:00:00 Test Item Value Reference Range Interpretation Comments GLUCOSE (test code = 2217) 103 MG/DL BUN (test code = 2208) 13 MG/DL CREATININE (test code = 2214) 0.83 MG/DL eGFR AMER. (test code 88 ML/MIN/1.73 = 18518) eGFR NON- AMER. (test 76 ML/MIN/1.73 code = 31303) CALC BUN/CREAT (test code = 16 RATIO 5) SODIUM (test code = 2231) [...] (test code = 2219) 20 U/L HEMOGLOBIN [id number] 00:00:00 Test Item Value Reference Range Interpretation Comments HEMOGLOBIN A1c (test code = 70443) 5.9 % HEMOGLOBIN [id number] 00:00:00 Test Item Value Reference Range Interpretation Comments HEMOGLOBIN A1c (test code = 94745) 5.9 % HEMOGLOBIN [id number] 00:00:00 Test Item Value Reference Range Interpretation Comments HEMOGLOBIN A1c (test code = 26647) 5.9 % LIPID [id number] 00:00:00 Test Item Value Reference Range Interpretation Comments CHOLESTEROL (test code = 2210) 138 MG/DL TRIGLYCERIDES (test code = 2232) 158 MG/DL HDL CHOLESTEROL (test code = 2220) 43 MG/DL CALC LDL CHOL (test code = 2237) 63 MG/DL RISK RATIO LDL/HDL (test code = 1.47 RATIO 2238) LIPID [id number] 00:00:00 Test Item Value Reference Range Interpretation Comments CHOLESTEROL (test code = 2210) 138 MG/DL TRIGLYCERIDES (test code = 2232) 158 MG/DL HDL CHOLESTEROL (test code = 2220) 43 MG/DL CALC LDL CHOL (test code = 2237) 63 MG/DL RISK RATIO LDL/HDL (test code = 1.47 RATIO 2238) COMPREHENSIVE METABOLIC [id number] 00:00:00 Test Item Value Reference Range Interpretation Comments GLUCOSE (test code = 2217) 103 MG/DL BUN (test code = 2208) 13 MG/DL CREATININE (test code = 2214) 0.83 MG/DL eGFR AMER. (test code 88 ML/MIN/1.73 = 36723) eGFR NON- AMER. (test 76 ML/MIN/1.73 code = 46751) CALC BUN/CREAT (test code = 16 RATIO [...] code = 2219) 20 U/L COMPREHENSIVE METABOLIC [id number] 00:00:00 Test Item Value Reference Range Interpretation Comments GLUCOSE (test code = 2217) 103 MG/DL BUN (test code = 2208) 13 MG/DL CREATININE (test code = 2214) 0.83 MG/DL eGFR AMER. (test code 88 ML/MIN/1.73 = 05233) eGFR NON- AMER. (test 76 ML/MIN/1.73 code = 60806) CALC BUN/CREAT (test code = 16 RATIO [...] (test code = 2219) 20 U/L HEMOGLOBIN [id number] 00:00:00 Test Item Value Reference Range Interpretation Comments HEMOGLOBIN A1c (test code = 37207) 5.9 % HEMOGLOBIN [id number] 00:00:00 Test Item Value Reference Range Interpretation Comments HEMOGLOBIN A1c (test code = 28725) 5.9 % HEMOGLOBIN [id number] 00:00:00 Test Item Value Reference Range Interpretation Comments HEMOGLOBIN A1c (test code = 38099) 5.9 % LIPID [id number] 00:00:00 Test Item Value Reference Range Interpretation Comments CHOLESTEROL (test code = 2210) 138 MG/DL TRIGLYCERIDES (test code = 2232) 158 MG/DL HDL CHOLESTEROL (test code = 2220) 43 MG/DL CALC LDL CHOL (test code = 2237) 63 MG/DL RISK RATIO LDL/HDL (test code = 1.47 RATIO 2238) LIPID [id number] 00:00:00 Test Item Value Reference Range Interpretation Comments CHOLESTEROL (test code = 2210) 138 MG/DL TRIGLYCERIDES (test code = 2232) 158 MG/DL HDL CHOLESTEROL (test code = 2220) 43 MG/DL CALC LDL CHOL (test code = 2237) 63 MG/DL RISK RATIO LDL/HDL (test code = 1.47 RATIO 2238) COMPREHENSIVE METABOLIC [id number] 00:00:00 Test Item Value Reference Range Interpretation Comments GLUCOSE (test code = 2217) 103 MG/DL BUN (test code = 2208) 13 MG/DL CREATININE (test code = 2214) 0.83 MG/DL eGFR AMER. (test code 88 ML/MIN/1.73 = 77875) eGFR NON- AMER. (test 76 ML/MIN/1.73 code = 60526) CALC BUN/CREAT (test code = 16 RATIO 2235) SODIUM (test code = 2231) 141 MEQ/L POTASSIUM (test code = 2228) 4.7 MEQ/L CHLORIDE (test code = 2215) 98 MEQ/L CARBON DIOXIDE (test code = 26 MEQ/L 220) CALCIUM (test code = 2209) 9.9 MG/DL PROTEIN, TOTAL (test code = 7.1 G/DL 222) ALBUMIN (test code = 2201) 4.8 G/DL CALC GLOBULIN (test code = 2.3 G/DL 2240) CALC A/G RATIO (test code = 2.1 RATIO 2234) BILIRUBIN, TOTAL (test code = 0.4 MG/DL 2206) ALKALINE PHOSPHATASE (test 59 U/L code = 2204) AST (test code = 2218) 26 U/L ALT (test code = 2219) 20 U/L COMPREHENSIVE METABOLIC [id number] 00:00:00 Test Item Value Reference Range Interpretation Comments GLUCOSE (test code = 2217) 103 MG/DL BUN (test code = 2208) 13 MG/DL CREATININE (test code = 2214) 0.83 MG/DL eGFR AMER. (test code 88 ML/MIN/1.73 = 90705) eGFR NON- AMER. (test 76 ML/MIN/1.73 code = 20881) CALC BUN/CREAT (test code = 16 RATIO [...] (test code = 2219) 20 U/L HEMOGLOBIN [id number] 00:00:00 Test Item Value Reference Range Interpretation Comments HEMOGLOBIN A1c (test code = 42970) 5.9 % HEMOGLOBIN [id number] 00:00:00 Test Item Value Reference Range Interpretation Comments HEMOGLOBIN A1c (test code = 25918) 6.2 % HEMOGLOBIN [id number] 00:00:00 Test Item Value Reference Range Interpretation Comments HEMOGLOBIN A1c (test code = 54126) 6.2 % HEMOGLOBIN [id number] 00:00:00 Test Item Value Reference Range Interpretation Comments HEMOGLOBIN A1c (test code = 97514) 6.2 % HEMOGLOBIN [id number] 00:00:00 Test Item Value Reference Range Interpretation Comments HEMOGLOBIN A1c (test code = 43019) 6.2 % HEMOGLOBIN [id number] 00:00:00 Test Item Value Reference Range Interpretation Comments HEMOGLOBIN A1c (test code = 25576) 6.2 % HEMOGLOBIN [id number] 00:00:00 Test Item Value Reference Range Interpretation Comments HEMOGLOBIN A1c (test code = 45301) 6.2 % HEMOGLOBIN [id number] 00:00:00 Test Item Value Reference Range Interpretation Comments HEMOGLOBIN A1c (test code = 65091) 6.2 % HEMOGLOBIN [id number] 00:00:00 Test Item Value Reference Range Interpretation Comments HEMOGLOBIN A1c (test code = 70562) 6.2 % HEMOGLOBIN [id number] 00:00:00 Test Item Value Reference Range Interpretation Comments HEMOGLOBIN A1c (test code = 74697) 6.2 % HEMOGLOBIN [id number] 00:00:00 Test Item Value Reference Range Interpretation Comments HEMOGLOBIN A1c (test code = 62893) 6.2 % HEMOGLOBIN [id number] 00:00:00 Test Item Value Reference Range Interpretation Comments HEMOGLOBIN A1c (test code = 65516) 6.2 % HEMOGLOBIN [id number] 00:00:00 Test Item Value Reference Range Interpretation Comments HEMOGLOBIN A1c (test code = 23045) 6.2 % [id number] 00:00:00 Test Item Value Reference Range Interpretation Comments POTASSIUM (test code = 2228) 4.9 MEQ/L [id number] 00:00:00 Test Item Value Reference Range Interpretation Comments POTASSIUM (test code = 2228) 4.9 MEQ/L [id number] 00:00:00 Test Item Value Reference Range Interpretation Comments POTASSIUM (test code = 2228) 4.9 MEQ/L [id number] 00:00:00 Test Item Value Reference Range Interpretation Comments POTASSIUM (test code = 2228) 4.9 MEQ/L [id number] 00:00:00 Test Item Value Reference Range Interpretation Comments POTASSIUM (test code = 2228) 4.9 MEQ/L [id number] 00:00:00 Test Item Value Reference Range Interpretation Comments POTASSIUM (test code = 2228) 4.9 MEQ/L [id number] 00:00:00 Test Item Value Reference Range Interpretation Comments POTASSIUM (test code = 2228) 4.9 MEQ/L [id number] 00:00:00 Test Item Value Reference Range Interpretation Comments POTASSIUM (test code = 2228) 4.9 MEQ/L HEMOGLOBIN [id number] 00:00:00 Test Item Value Reference Range Interpretation Comments HEMOGLOBIN A1c (test code = 02637) 6.8 % HEMOGLOBIN [id number] 00:00:00 Test Item Value Reference Range Interpretation Comments HEMOGLOBIN A1c (test code = 13053) 6.8 % HEMOGLOBIN [id number] 00:00:00 Test Item Value Reference Range Interpretation Comments HEMOGLOBIN A1c (test code = 35535) 6.8 % COMPREHENSIVE METABOLIC [id number] 00:00:00 Test Item Value Reference Range Interpretation Comments GLUCOSE (test code = 2217) 108 MG/DL BUN (test code = 2208) 13 MG/DL CREATININE (test code = 2214) 0.75 MG/DL eGFR AMER. (test code 99 ML/MIN/1.73 = 72955) eGFR NON- AMER. (test 85 ML/MIN/1.73 code = 78614) CALC BUN/CREAT (test code = 17 RATIO [...] code = 2219) 22 U/L COMPREHENSIVE METABOLIC [id number] 00:00:00 Test Item Value Reference Range Interpretation Comments GLUCOSE (test code = 2217) 108 MG/DL BUN (test code = 2208) 13 MG/DL CREATININE (test code = 2214) 0.75 MG/DL eGFR AMER. (test code 99 ML/MIN/1.73 = 74653) eGFR NON- AMER. (test 85 ML/MIN/1.73 code = 25643) CALC BUN/CREAT (test code = 17 RATIO [...] (test code = 2219) 22 U/L HEMOGLOBIN [id number] 00:00:00 Test Item Value Reference Range Interpretation Comments HEMOGLOBIN A1c (test code = 57003) 6.8 % HEMOGLOBIN [id number] 00:00:00 Test Item Value Reference Range Interpretation Comments HEMOGLOBIN A1c (test code = 26738) 6.8 % HEMOGLOBIN [id number] 00:00:00 Test Item Value Reference Range Interpretation Comments HEMOGLOBIN A1c (test code = 58167) 6.8 % COMPREHENSIVE METABOLIC [id number] 00:00:00 Test Item Value Reference Range Interpretation Comments GLUCOSE (test code = 2217) 108 MG/DL BUN (test code = 2208) 13 MG/DL CREATININE (test code = 2214) 0.75 MG/DL eGFR AMER. (test code 99 ML/MIN/1.73 = 28004) eGFR NON- AMER. (test 85 ML/MIN/1.73 code = 54726) CALC BUN/CREAT (test code = 17 RATIO [...] code = 2219) 22 U/L COMPREHENSIVE METABOLIC [id number] 00:00:00 Test Item Value Reference Range Interpretation Comments GLUCOSE (test code = 2217) 108 MG/DL BUN (test code = 2208) 13 MG/DL CREATININE (test code = 2214) 0.75 MG/DL eGFR AMER. (test code 99 ML/MIN/1.73 = 99936) eGFR NON- AMER. (test 85 ML/MIN/1.73 code = 52969) CALC BUN/CREAT (test code = 17 RATIO [...] (test code = 2219) 22 U/L HEMOGLOBIN [id number] 00:00:00 Test Item Value Reference Range Interpretation Comments HEMOGLOBIN A1c (test code = 00180) 6.8 % HEMOGLOBIN [id number] 00:00:00 Test Item Value Reference Range Interpretation Comments HEMOGLOBIN A1c (test code = 71844) 6.8 % HEMOGLOBIN [id number] 00:00:00 Test Item Value Reference Range Interpretation Comments HEMOGLOBIN A1c (test code = 23956) 6.8 % COMPREHENSIVE METABOLIC [id number] 00:00:00 Test Item Value Reference Range Interpretation Comments GLUCOSE (test code = 2217) 108 MG/DL BUN (test code = 2208) 13 MG/DL CREATININE (test code = 2214) 0.75 MG/DL eGFR AMER. (test code 99 ML/MIN/1.73 = 94312) eGFR NON- AMER. (test 85 ML/MIN/1.73 code = 29251) CALC BUN/CREAT (test code = 17 RATIO [...] code = 2219) 22 U/L COMPREHENSIVE METABOLIC [id number] 00:00:00 Test Item Value Reference Range Interpretation Comments GLUCOSE (test code = 2217) 108 MG/DL BUN (test code = 2208) 13 MG/DL CREATININE (test code = 2214) 0.75 MG/DL eGFR AMER. (test code 99 ML/MIN/1.73 = 99433) eGFR NON- AMER. (test 85 ML/MIN/1.73 code = 87907) CALC BUN/CREAT (test code = 17 RATIO [...] (test code = 2219) 22 U/L HEMOGLOBIN [id number] 00:00:00 Test Item Value Reference Range Interpretation Comments HEMOGLOBIN A1c (test code = 97420) 6.8 % HEMOGLOBIN [id number] 00:00:00 Test Item Value Reference Range Interpretation Comments HEMOGLOBIN A1c (test code = 25125) 6.8 % HEMOGLOBIN [id number] 00:00:00 Test Item Value Reference Range Interpretation Comments HEMOGLOBIN A1c (test code = 73373) 6.8 % COMPREHENSIVE METABOLIC [id number] 00:00:00 Test Item Value Reference Range Interpretation Comments GLUCOSE (test code = 2217) 108 MG/DL BUN (test code = 2208) 13 MG/DL CREATININE (test code = 2214) 0.75 MG/DL eGFR AMER. (test code 99 ML/MIN/1.73 = 71907) eGFR NON- AMER. (test 85 ML/MIN/1.73 code = 18573) CALC BUN/CREAT (test code = 17 RATIO [...] code = 2219) 22 U/L COMPREHENSIVE METABOLIC [id number] 00:00:00 Test Item Value Reference Range Interpretation Comments GLUCOSE (test code = 2217) 108 MG/DL BUN (test code = 2208) 13 MG/DL CREATININE (test code = 2214) 0.75 MG/DL eGFR AMER. (test code 99 ML/MIN/1.73 = 88280) eGFR NON- AMER. (test 85 ML/MIN/1.73 code = 57698) CALC BUN/CREAT (test code = 17 RATIO [...] Interpretation Comments HEMOGLOBIN A1c (test code = 17743) 7.3 % LIPID PANEL [ADDED]2018-01-05 00:00:00 Test [...] eGFR AMER. (test code 93 ML/MIN/1.73 = 33907) eGFR NON- AMER. (test 80 ML/MIN/1.73 code = 38296) CALC BUN/CREAT (test code = 15 RATIO [...] = 0.4 MG/DL 220) ALKALINE PHOSPHATASE (test 79 U/L code = 2204) AST (test code = 2218) 36 U/L ALT (test code = 2219) 43 U/L COMPREHENSIVE METABOLIC PANEL [ADDED]2018-01-05 00:00:00 Test Item Value Reference Range Interpretation Comments GLUCOSE (test code = 2217) 133 MG/DL BUN (test code = 2208) 12 MG/DL CREATININE (test code = 2214) 0.79 MG/DL eGFR AMER. (test code 93 ML/MIN/1.73 = 59751) eGFR NON- AMER. (test 80 ML/MIN/1.73 code = 70898) CALC BUN/CREAT (test code = 15 RATIO [...] Interpretation Comments HEMOGLOBIN A1c (test code = 83975) 7.3 % HEMOGLOBIN A1c [ADDED]2018-01-05 00:00:00 Test Item Value Reference Range Interpretation Comments HEMOGLOBIN A1c (test code = 61707) 7.3 % HEMOGLOBIN A1c [ADDED]2018-01-05 00:00:00 Test Item Value Reference Range Interpretation Comments HEMOGLOBIN A1c (test code = 84191) 7.3 % LIPID PANEL [ADDED]2018-01-05 00:00:00 Test [...] eGFR AMER. (test code 93 ML/MIN/1.73 = 88917) eGFR NON- AMER. (test 80 ML/MIN/1.73 code = 25616) CALC BUN/CREAT (test code = 15 RATIO [...] eGFR AMER. (test code 93 ML/MIN/1.73 = 14576) eGFR NON- AMER. (test 80 ML/MIN/1.73 code = 45412) CALC BUN/CREAT (test code = 15 RATIO [...] Interpretation Comments HEMOGLOBIN A1c (test code = 37699) 7.3 % HEMOGLOBIN A1c [ADDED]2018-01-05 00:00:00 Test Item Value Reference Range Interpretation Comments HEMOGLOBIN A1c (test code = 83394) 7.3 % HEMOGLOBIN A1c [ADDED]2018-01-05 00:00:00 Test Item Value Reference Range Interpretation Comments HEMOGLOBIN A1c (test code = 89080) 7.3 % LIPID PANEL [ADDED]2018-01-05 00:00:00 Test [...] eGFR AMER. (test code 93 ML/MIN/1.73 = 81699) eGFR NON- AMER. (test 80 ML/MIN/1.73 code = 76459) CALC BUN/CREAT (test code = 15 RATIO [...] eGFR AMER. (test code 93 ML/MIN/1.73 = 14884) eGFR NON- AMER. (test 80 ML/MIN/1.73 code = 14416) CALC BUN/CREAT (test code = 15 RATIO [...] Interpretation Comments HEMOGLOBIN A1c (test code = 50404) 7.3 % HEMOGLOBIN A1c [ADDED]2018-01-05 00:00:00 Test Item Value Reference Range Interpretation Comments HEMOGLOBIN A1c (test code = 98090) 7.3 % HEMOGLOBIN A1c [ADDED]2018-01-05 00:00:00 Test Item Value Reference Range Interpretation Comments HEMOGLOBIN A1c (test code = 97218) 7.3 % LIPID PANEL [ADDED]2018-01-05 00:00:00 Test [...] eGFR AMER. (test code 93 ML/MIN/1.73 = 05144) eGFR NON- AMER. (test 80 ML/MIN/1.73 code = 96926) CALC BUN/CREAT (test code = 15 RATIO [...] CALC GLOBULIN (test code = 2.7 G/DL 0) CALC A/G RATIO (test code = 1.7 [...] eGFR AMER. (test code 93 ML/MIN/1.73 = 51382) eGFR NON- AMER. (test 80 ML/MIN/1.73 code = 82803) CALC BUN/CREAT (test code = 15 RATIO [...] Interpretation Comments HEMOGLOBIN A1c (test code = 57143) 7.3 % HEMOGLOBIN A1c [ADDED]2018-01-05 00:00:00 Test Item Value Reference Range Interpretation Comments HEMOGLOBIN A1c (test code = 87934) 7.3 % COMPREHENSIVE METABOLIC [id number] 00:00:00 Test Item Value Reference Range Interpretation Comments GLUCOSE (test code = 2217) 109 MG/DL BUN (test code = 2208) 13 MG/DL CREATININE (test code = 2214) 0.66 MG/DL eGFR AMER. (test code 110 ML/MIN/1.73 = 22414) eGFR NON- AMER. (test 95 ML/MIN/1.73 code = 60597) CALC BUN/CREAT (test code = 20 RATIO [...] code = 2219) 27 U/L COMPREHENSIVE METABOLIC [id number] 00:00:00 Test Item Value Reference Range Interpretation Comments GLUCOSE (test code = 2217) 109 MG/DL BUN (test code = 2208) 13 MG/DL CREATININE (test code = 2214) 0.66 MG/DL eGFR AMER. (test code 110 ML/MIN/1.73 = 90382) eGFR NON- AMER. (test 95 ML/MIN/1.73 code = 07310) CALC BUN/CREAT (test code = 20 RATIO [...] code = 2219) 27 U/L COMPREHENSIVE METABOLIC [id number] 00:00:00 Test Item Value Reference Range Interpretation Comments GLUCOSE (test code = 2217) 109 MG/DL BUN (test code = 2208) 13 MG/DL CREATININE (test code = 2214) 0.66 MG/DL eGFR AMER. (test code 110 ML/MIN/1.73 = 99753) eGFR NON- AMER. (test 95 ML/MIN/1.73 code = 42576) CALC BUN/CREAT (test code = 20 RATIO [...] code = 2219) 27 U/L COMPREHENSIVE METABOLIC [id number] 00:00:00 Test Item Value Reference Range Interpretation Comments GLUCOSE (test code = 2217) 109 MG/DL BUN (test code = 2208) 13 MG/DL CREATININE (test code = 2214) 0.66 MG/DL eGFR AMER. (test code 110 ML/MIN/1.73 = 25473) eGFR NON- AMER. (test 95 ML/MIN/1.73 code = 80954) CALC BUN/CREAT (test code = 20 RATIO [...] code = 2219) 27 U/L COMPREHENSIVE METABOLIC [id number] 00:00:00 Test Item Value Reference Range Interpretation Comments GLUCOSE (test code = 2217) 109 MG/DL BUN (test code = 2208) 13 MG/DL CREATININE (test code = 2214) 0.66 MG/DL eGFR AMER. (test code 110 ML/MIN/1.73 = 98654) eGFR NON- AMER. (test 95 ML/MIN/1.73 code = 26184) CALC BUN/CREAT (test code = 20 RATIO [...] code = 2219) 27 U/L COMPREHENSIVE METABOLIC [id number] 00:00:00 Test Item Value Reference Range Interpretation Comments GLUCOSE (test code = 2217) 109 MG/DL BUN (test code = 2208) 13 MG/DL CREATININE (test code = 2214) 0.66 MG/DL eGFR AMER. (test code 110 ML/MIN/1.73 = 20438) eGFR NON- AMER. (test 95 ML/MIN/1.73 code = 55946) CALC BUN/CREAT (test code = 20 RATIO [...] code = 2219) 27 U/L COMPREHENSIVE METABOLIC [id number] 00:00:00 Test Item Value Reference Range Interpretation Comments GLUCOSE (test code = 2217) 109 MG/DL BUN (test code = 2208) 13 MG/DL CREATININE (test code = 2214) 0.66 MG/DL eGFR AMER. (test code 110 ML/MIN/1.73 = 62353) eGFR NON- AMER. (test 95 ML/MIN/1.73 code = 42591) CALC BUN/CREAT (test code = 20 RATIO [...] code = 2219) 27 U/L COMPREHENSIVE METABOLIC [id number] 00:00:00 Test Item Value Reference Range Interpretation Comments GLUCOSE (test code = 2217) 109 MG/DL BUN (test code = 2208) 13 MG/DL CREATININE (test code = 2214) 0.66 MG/DL eGFR AMER. (test code 110 ML/MIN/1.73 = 81400) eGFR NON- AMER. (test 95 ML/MIN/1.73 code = 57540) CALC BUN/CREAT (test code = 20 RATIO [...]
[2022-11-19 18:31] LABS: Absolute Lymphocytes (CBC) 3.6 K/uL (0.7-4.9); Hematocrit 41.7 % (36.0-45.0); Lymphocytes % 33.1 % (15.3-44.8); MCV 93.1 fL (80-100); MPV 7.7 fL (7.6-11.3); Platelets 288 thou/uL (152-406); RBC Red Blood Cell Count 4.48 M/uL (3.86-4.86)
[2022-11-19] MEDS ORDERED: MAGNESIUM SULFATE 1 gm IVPB 1 GM/100 ML BAG IV ONE (18:34)
[2022-11-19] MEDS ORDERED: FAMOTIDINE 20 MG/2 ML VIAL IV ONE (18:34)
[2022-11-19] MEDS ORDERED: METHYLPREDNISOLONE 125 MG INJ ONE (18:34)
[2022-11-19] MEDS ORDERED: NA CHLORIDE 0.9% 1,000 ML ONE (18:34)
[2022-11-19] MEDS ORDERED: LEVALBUTEROL 1.25 MG/3 ML NEB ONE ×2 (18:34→18:59)
--- NOTE | 2022-11-19 18:43 | RAD REPORT ---
EXAM DESCRIPTION: RAD - Chest Single View - 11/19/2022 6:36 pm CLINICAL HISTORY: COUGH Chest pain. COMPARISON: Chest Single View dated 11/19/2022; Chest Single View dated 08/03/2022; Chest Single View dated 08/03/2022; Chest Single View dated 07/02/2022 FINDINGS: Portable technique limits examination quality. The lungs are emphysematous but grossly clear. The heart is normal in size. No displaced fractures. IMPRESSION: Moderate COPD.
[2022-11-19 18:44] LABS: Protime INR 0.99
[2022-11-19 18:45] LABS: ALT/SGPT 44 U/L (13-56); AST/SGOT 38 U/L (15-37); Albumin 3.7 g/dL (3.4-5.0); Alkaline Phosphatase 82 U/L (45-117); BUN Blood Urea Nitrogen 9 mg/dL (7-18); Bicarbonate 24 mEq/L (21-32); Bilirubin Total 0.3 mg/dL (0.2-1.0); Glomerular Filtration Rate 63 ml/min (=/>90); Glucose Level 227 mg/dL (74-106); Magnesium 2.1 mg/dL (1.6-2.4); NT PRO-BNP 693 pg/mL (<125); Potassium 3.9 mEq/L (3.5-5.1); Protein, Total 7.9 g/dL (6.4-8.2); Sodium Level 139 mEq/L (136-145)
[2022-11-19 18:46] LABS: Bilirubin Direct < 0.1 mg/dL (0-0.2)
[2022-11-19 18:47] LABS: Bilirubin Indirect, Calculated ND mg/dL (0.2-0.8)
--- NOTE | 2022-11-19 19:06 | ER ---
Nurse's Notes [facility] Name: Dalia Reyes Age: 66 yrs Sex: Female : 1955 Arrival Date: 11/19/2022 Time: 18:04 Bed 2 Private MD: Diagnosis: COPD/ Chronic obstructive pulmonary disease with (acute) exacerbation;Dyspnea;Type 2 diabetes mellitus with hyperglycemia Presentation: 11/19 18:07 Chief complaint: Patient states: Pt discharged from ER. Found yelling in lobby ld1 bathroom, weak and unable to get onto toilet. Found sitting on ground in ER bathroom begging for oxygen. Brought to ER room 2, placed on non re breather SpO2 98%. Coronavirus screen: At this time, the client does not indicate any symptoms associated with coronavirus-19. Ebola Screen: No symptoms or risks identified at this time. Initial Sepsis Screen: Does the patient meet any 2 criteria? No. Patient's initial sepsis screen is negative. Does the patient have a suspected source of infection? No. Patient's initial sepsis screen is negative. Risk Assessment: Do you want to hurt yourself or someone else? Patient reports no desire to harm self or others. Onset of symptoms was November 19, 2022. 18:07 Method Of Arrival: Wheelchair ld1 18:07 Acuity: CONSTANTINO 2 ld1 Triage Assessment: 18:11 General: Appears distressed, uncomfortable, Behavior is anxious, inappropriate for age. ld1 Pain: Denies pain. EENT: No signs and/or symptoms were reported regarding the EENT system. Neuro: Level of Consciousness is awake, alert, obeys commands, Oriented to person, place, time, situation. Cardiovascular: Capillary refill < 3 seconds Patient's skin is warm and dry. Rhythm is sinus tachycardia. Respiratory: Reports shortness of breath at rest on exertion Airway is patent Respiratory effort is even, labored, Onset: The symptoms/episode began/occurred just prior to arrival, the patient has moderate shortness of breath. GI: Abdomen is flat, non-distended. : No signs and/or symptoms were reported regarding the genitourinary system. Derm: No signs and/or symptoms reported regarding the dermatologic system. Musculoskeletal: No signs and/or symptoms reported regarding the musculoskeletal system. Historical: - Allergies: 18:11 Benadryl; ld1 18:11 Valium; ld1 18:11 Lorazepam; ld1 - PMHx: 18:11 Chronic obstructive lung disease; diabetes mellitus; Emphysema; Hypercholesterolemia; ld1 Hypertensive disorder; - PSHx: 18:11 section; Heart Stents; ld1 - Immunization history:: Adult Immunizations up to date. - Social history:: Smoking status: Patient reports the use of cigarette tobacco products, smokes one pack cigarettes per day. Patient/guardian denies using alcohol. Screenin:42 [facility] ED Fall Risk Assessment (Adult) Score/Fall Risk Level 0 - 2 = Low Risk. Abuse iw screen: Denies threats or abuse. Denies injuries from another. Nutritional screening: No deficits noted. Tuberculosis screening: No symptoms or risk factors identified. Assessment: 18:41 Reassessment: pt breathing is more relaxed, unable to tolerate Bipap, placed on neb iw treatment by RT. 19:48 General: Appears comfortable, Behavior is cooperative. Pain: Denies pain. Neuro: Level ha1 of Consciousness is awake, alert, obeys commands, Oriented to person, place, time, situation. Cardiovascular: Reports shortness of breath, Heart tones S1 S2 present Patient's skin is warm and dry. Respiratory: Reports shortness of breath at rest Airway is patent Respiratory effort is even, unlabored, Respiratory pattern is regular, symmetrical, Breath sounds with wheezes bilaterally. Derm: Skin is fragile, Skin is normal. Musculoskeletal: Circulation, motion, and sensation intact. 20:50 Reassessment: report given to SIDDHARTH Summers. ha1 Vital Signs: 18:07 BP 203 / 146; Pulse 122; Resp 26; Temp 98.2(TE); Pulse Ox 99% on 15 lpm Non-rebreather ld1 mask; 18:41 BP 146 / 87; Pulse 108; Resp 24; Pulse Ox 100% on 4 lpm NC; iw 20:00 BP 125 / 74; Pulse 114; Resp 20 S; Pulse Ox 98% on 4 lpm NC; ha1 ED Course: 18:07 Patient arrived in ED. iw 18:07 Iván Mendez MD is Attending Physician. italo 18:09 Arm band placed on Patient placed in an exam room, on a stretcher. ll1 18:10 Initial lab(s) drawn, by me, sent to lab. Inserted saline lock: 20 gauge in right iw forearm, using aseptic technique. Blood collected. 18:11 Triage completed. ld1 18:28 Phoebe Hong RN is Primary Nurse. iw 18:38 XRAY Chest (1 view) In Process Unspecified. EDMS 19:00 Patient has correct armband on for positive identification. Placed in gown. Bed in low ha1 position. Call light in reach. Side rails up X 1. 19:05 Ger Diehl MD is Hospitalizing Provider. italo 19:05 Alonso Licona MD is Hospitalizing Provider. italo 21:09 No provider procedures requiring assistance completed. Patient admitted, IV remains in ha1 place. 21:10 Provided Education on: need for admit . ha1 Administered Medications: 18:29 Drug: NS 0.9% IV 1000 ml IV at 125 ml/hr continuous Route: IV; Rate: 125 ml/hr; Site: iw right forearm; 18:29 Drug: Magnesium Sulfate IVPB 1 grams IVPB once over 1 hrs Route: IVPB; Infused Over: 1 iw hrs; Site: right forearm; 18:29 Drug: MethylPrednisoLONE IVP 62.5 mg IVP once Route: IVP; Site: right forearm; iw 18:30 Drug: Famotidine IVP 20 mg IVP once; dilute with 10 mL 0.9% NaCl; give over 2 minutes iw Route: IVP; Site: right forearm; 19:00 Drug: Levalbuterol Inhalation 1.25 mg Inhalation once Route: Inhalation; iw 19:00 Drug: Levalbuterol Inhalation 1.25 mg Inhalation once Route: Inhalation; iw 19:00 Drug: Levalbuterol Inhalation 1.25 mg Inhalation once Route: Inhalation; iw 19:00 Drug: Ipratropium Inhalation Aerosol 0.5 mg Inhalation once Route: Inhalation; iw 19:47 Drug: Rocephin IV 1 grams IV at per protocol once; Given slow IV push per pharmacy ha1 instructions Route: IV; Rate: per protocol; Site: right forearm; 19:47 Drug: Zithromax IVPB 500 mg IVPB once over 1 hrs; mix in 250 mL NS Route: IVPB; Infused ha1 Over: 1 hrs; Site: right forearm; Medication: 20:50 VIS not applicable for this client. ha1 Outcome: 19:06 Decision to Hospitalize by Provider. italo 21:09 Admitted to Tele accompanied by tech, via stretcher, room 406, with oxygen, with chart, ha1 21: Condition: stable 21: Discharge instructions given to patient, Instructed on the need for admit, Demonstrated understanding of instructions, 21:10 Patient left the ED. ha1 Signatures: Dispatcher [employer] EDIván Macedo MD MD cha Williams, Irene, RN RN iw Lewis, Lynsay, RN RN 1 Elizabeth Jacobs RN RN 1 Asiya Campo RN RN 1
--- NOTE | 2022-11-19 19:07 | EDPHYS ---
Physician Documentation [facility] Name: Dalia Reyes Age: 66 yrs Sex: Female : 1955 Arrival Date: 11/19/2022 Time: 18:04 Bed 2 Private MD: FERNANDEZ Physician Iván Mendez HPI: 11/19 19:00 This 66 yrs old Female presents to ER via Wheelchair with complaints of italo Shortness Of Breath. 19:00 The patient has shortness of breath at rest, with light activity. Onset: The italo symptoms/episode began/occurred 3 day(s) ago. Duration: The symptoms are continuous. The patient's shortness of breath is aggravated by coughing, talking, walking, is alleviated by elevating head, rest, sitting up, application of supplemental oxygen. Associated signs and symptoms: Pertinent positives: non-productive cough, dizziness. Severity of symptoms: At their worst the symptoms were moderate severe in the emergency department the symptoms have improved mildly. The patient has experienced similar episodes in the past, multiple times. Historical: - Allergies: 18:11 Benadryl; ld1 18:11 Valium; ld1 18:11 Lorazepam; ld1 - PMHx: 18:11 Chronic obstructive lung disease; diabetes mellitus; Emphysema; Hypercholesterolemia; ld1 Hypertensive disorder; - PSHx: 18:11 section; Heart Stents; ld1 - Immunization history:: Adult Immunizations up to date. - Social history:: Smoking status: Patient reports the use of cigarette tobacco products, smokes one pack cigarettes per day. Patient/guardian denies using alcohol. ROS: 19:01 Constitutional: Negative for fever, chills, and weight loss, Eyes: Negative for injury, italo pain, redness, and discharge, ENT: Negative for injury, pain, and discharge, Neck: Negative for injury, pain, and swelling, Abdomen/GI: Negative for abdominal pain, nausea, vomiting, diarrhea, and constipation, Back: Negative for injury and pain, : Negative for injury, bleeding, discharge, and swelling, MS/Extremity: Negative for injury and deformity, Skin: Negative for injury, rash, and discoloration, Neuro: Negative for headache, weakness, numbness, tingling, and seizure, Psych: Negative for depression, anxiety, suicide ideation, homicidal ideation, and hallucinations, Allergy/Immunology: Negative for hives, rash, and allergies, Endocrine: Negative for neck swelling, polydipsia, polyuria, polyphagia, and marked weight changes, Hematologic/Lymphatic: Negative for swollen nodes, abnormal bleeding, and unusual bruising, 19:01 Cardiovascular: Positive for palpitations, 19:01 Respiratory: Positive for cough, shortness of breath, wheezing, inspiratory, expiratory, Exam: 19:01 Constitutional: This is a well developed, well nourished patient who is awake, alert, italo and in no acute distress. Head/Face: Normocephalic, atraumatic. Eyes: Pupils equal round and reactive to light, extra-ocular motions intact. Lids and lashes normal. Conjunctiva and sclera are non-icteric and not injected. Cornea within normal limits. Periorbital areas with no swelling, redness, or edema. ENT: Nares patent. No nasal discharge, no septal abnormalities noted. Tympanic membranes are normal and external auditory canals are clear. Oropharynx with no redness, swelling, or masses, exudates, or evidence of obstruction, uvula midline. Mucous membranes moist. Neck: Trachea midline, no thyromegaly or masses palpated, and no cervical lymphadenopathy. Supple, full range of motion without nuchal rigidity, or vertebral point tenderness. No Meningismus. Chest/axilla: Normal chest wall appearance and motion. Nontender with no deformity. No lesions are appreciated. Abdomen/GI: Soft, non-tender, with normal bowel sounds. No distension or tympany. No guarding or rebound. No evidence of tenderness throughout. Back: No spinal tenderness. No costovertebral tenderness. Full range of motion. Female : Normal external genitalia. Skin: Warm, dry with normal turgor. Normal color with no rashes, no lesions, and no evidence of cellulitis. MS/ Extremity: Pulses equal, no cyanosis. Neurovascular intact. Full, normal range of motion. Neuro: Awake and alert, GCS 15, oriented to person, place, time, and situation. Cranial nerves II-XII grossly intact. Motor strength 5/5 in all extremities. Sensory grossly intact. Cerebellar exam normal. Normal gait. Psych: Awake, alert, with orientation to person, place and time. Behavior, mood, and affect are within normal limits. 19:01 Cardiovascular: Rate: tachycardic, actual rate is 108 bpm, Rhythm: regular, Pulses: Pulses are 4+ in bilateral radial, brachial, femoral, popliteal, posterior tibial and and dorsalis pedis arteries.. Heart sounds: normal, normal S1and S2, no S3 or S4, no murmur, no rub, no gallop, Edema: is not appreciated, JVD: is not appreciated, 19:01 Musculoskeletal/extremity: DVT Exam: No signs of deep vein thrombosis. no pain, no swelling, no tenderness, negative Homans' sign noted on exam, no appreciated bluish discoloration, no erythema, no increased warmth, 19:07 ECG was reviewed by the Attending Physician. [facility] Vital Signs: 18:07 BP 203 / 146; Pulse 122; Resp 26; Temp 98.2(TE); Pulse Ox 99% on 15 lpm Non-rebreather ld1 mask; 18:41 BP 146 / 87; Pulse 108; Resp 24; Pulse Ox 100% on 4 lpm NC; iw 20:00 BP 125 / 74; Pulse 114; Resp 20 S; Pulse Ox 98% on 4 lpm NC; ha1 MDM: 18:07 Patient medically screened. italo 19:02 Differential diagnosis: Anemia Anxiety Reaction Bronchitis CHF exacerbation, Chronic italo Obstructive Pulmonary Disease exercise-induced asthma, reactive airway, CHF, anaphylaxis, URI, Myocardial Infarction pneumonia, Pneumothorax pulmonary edema, Pulmonary Embolism reactive airway disease, Sepsis Unstable Angina. Antibiotic administration: Rocephin and Zithromax given. Differential Diagnosis: Obstructed Airway Bronchitis Influenza Upper Respiratory Infection Sinusitis. Immunization status: Pneumococcal vaccine: within last 5 years. Influenza vaccine: within last 5 years. Data reviewed: vital signs, nurses notes, lab test result(s), EKG, radiologic studies, plain films. Consideration of Admission/Observation Patient was admitted/placed on observation. Escalation of care including admission/observation considered. I considered the following discharge prescriptions or medication management in the emergency department Medications were administered in the Emergency Department. See MAR. Independent interpretation of the following test(s) in the Emergency Department EKG: See my EKG interpretation above. Test considered but Not performed: MRI: no mri chest. Care significantly affected by the following chronic conditions: Diabetes, Hypertension, Chronic Obstructive Pulmonary Disease. Counseling: I had a detailed discussion with the patient and/or guardian regarding the historical points, exam findings, and any diagnostic results supporting the discharge/admit diagnosis, the presence of at least one elevated blood pressure reading (>120/80) during this emergency department visit, lab results, radiology results, the need for further work-up and treatment in the hospital. 11/19 18:08 Order name: Basic Metabolic Panel; Complete Time: 19:04 [facility] 11/19 18:08 Order name: CBC with Diff; Complete Time: 19:04 [facility] 11/19 18:08 Order name: LFT's; Complete Time: 19:04 [facility] 11/19 18:08 Order name: Magnesium; Complete Time: 19:04 [facility] 11/19 18:08 Order name: NT PRO-BNP; Complete Time: 19:04 [facility] 11/19 18:08 Order name: PT-INR; Complete Time: 19:04 [facility] 11/19 18:08 Order name: Troponin HS; Complete Time: 19:04 [facility] 11/19 18:08 Order name: XRAY Chest (1 view); Complete Time: 19:04 [facility] 11/19 18:08 Order name: EKG; Complete Time: 18:09 [facility] 11/19 18:08 Order name: Cardiac monitoring; Complete Time: 18:30 [facility] 11/19 18:08 Order name: EKG - Nurse/Tech; Complete Time: 18:30 [facility] 11/19 18:08 Order name: IV Saline Lock; Complete Time: 18:30 [facility] 11/19 18:08 Order name: Labs collected and sent; Complete Time: 18:30 [facility] 11/19 18:08 Order name: O2 Per Protocol; Complete Time: 18:30 [facility] 11/19 18:08 Order name: O2 Sat Monitoring; Complete Time: 18:30 [facility] EC: Rate is 133 beats/min. Rhythm is regular. QRS [place] is Normal. IA interval is normal. [facility] QRS interval is normal. QT interval is normal. No Q waves. T waves are Normal. No ST changes noted. Clinical impression: Sinus tachycardia and No evidence of ischemia. Interpreted by me. Reviewed by me. Administered Medications: 18:29 Drug: NS 0.9% IV 1000 ml IV at 125 ml/hr continuous Route: IV; Rate: 125 ml/hr; Site: iw right forearm; 18:29 Drug: Magnesium Sulfate IVPB 1 grams IVPB once over 1 hrs Route: IVPB; Infused Over: 1 iw hrs; Site: right forearm; 18:29 Drug: MethylPrednisoLONE IVP 62.5 mg IVP once Route: IVP; Site: right forearm; iw 18:30 Drug: Famotidine IVP 20 mg IVP once; dilute with 10 mL 0.9% NaCl; give over 2 minutes iw Route: IVP; Site: right forearm; 19:00 Drug: Levalbuterol Inhalation 1.25 mg Inhalation once Route: Inhalation; iw 19:00 Drug: Levalbuterol Inhalation 1.25 mg Inhalation once Route: Inhalation; iw 19:00 Drug: Levalbuterol Inhalation 1.25 mg Inhalation once Route: Inhalation; iw 19:00 Drug: Ipratropium Inhalation Aerosol 0.5 mg Inhalation once Route: Inhalation; iw 19:47 Drug: Rocephin IV 1 grams IV at per protocol once; Given slow IV push per pharmacy ha1 instructions Route: IV; Rate: per protocol; Site: right forearm; 19:47 Drug: Zithromax IVPB 500 mg IVPB once over 1 hrs; mix in 250 mL NS Route: IVPB; Infused ha1 Over: 1 hrs; Site: right forearm; Disposition Summary: 11/19/22 19:06 Hospitalization Ordered Notes: Hospitalization Status: Inpatient Admission italo Provider: Alonso Licona cha Location: Telemetry/MedSurg (Inpatient) italo Condition: Fair italo Problem: new italo Symptoms: have improved italo Bed/Room Type: Standard italo Room Assignment: 406(11/19/22 20:26) cg Diagnosis - COPD/ Chronic obstructive pulmonary disease with (acute) exacerbation italo - Dyspnea italo - Type 2 diabetes mellitus with hyperglycemia italo Forms: - Medication Reconciliation Form italo - SBAR form italo - Leadership Thank You Letter italo Signatures: Dispatcher [employer] Iván Morales MD MD cha Williams, Irene, RN RN iw Garcia, Cindy, RN RN cg Elizabeth Jacobs RN RN ld1 Asiya Campo RN RN ha1 Corrections: (The following items were deleted from the chart) 19:06 italo cg
[2022-11-19] MEDS ORDERED: CEFTRIAXONE 1000 MG/VIAL ONE (19:25)
[2022-11-19] MEDS ORDERED: AZITHROMYCIN 500 MG INJ IVPB ONE (19:25)
[2022-11-19] MEDS ORDERED: NA CHLORIDE 0.9% 250 ML ONE (19:25)
--- NOTE | 2022-11-19 20:29 | P.HP ---
Certification for Inpatient Patient admitted to: Observation With expected LOS: <2 Midnights Patient will require the following post-hospital care: None Practitioner: I am a practitioner with admitting privileges, knowledge of patient current condition, hospital course, and medical plan of care. Services: Services provided to patient in accordance with Admission requirements found in Title 42 Section 412.3 of the Code of Federal Regulations Patient History Date of Service: 11/19/22 Reason for admission: COPD exacerbation History of Present Illness: 66-year-old female with history of COPD on chronic home O2/chronic steroids, diabetes mellitus type 2, emphysema, hyperlipidemia, hypertension presents emergency department with chief complaint of worsening dyspnea over the course the last few days as well as elevated heart rate. She was evaluated in the emergency department offered admission and initially chose to be discharged home, while in the lobby in the restroom she became severely short of breath and decided to stay in the hospital. She was evaluated in the emergency department her labs were significant for glucose 227 BNP 693 chest x-ray shows moderate COPD. Patient improved after multiple nebulizer treatments, IV steroids, IV magnesium. She will be admitted for further evaluation and management of her COPD exacerbation. Allergies diazepam [From Valium] Adverse Reaction (Verified 08/04/22 01:38) "makes me stupid, too strong for me" diphenhydramine [From Benadryl] Adverse Reaction (Verified 08/04/22 01:38) "turns my nerve inside out" lorazepam Adverse Reaction (Verified 08/04/22 01:38) stomach issue Home Medications: Albuterol Inhaler [Ventolin Inhaler*] 1 puff IH Q4HP PRN 08/04/22 Albuterol Neb [Proventil 0.083% Neb Soln] 1 amp NEB Q4HP PRN 08/04/22 Aspirin Chewable [Aspirin Chewable*] 81 mg PO DAILY 08/04/22 Atorvastatin Calcium [Lipitor] 80 mg PO BEDTIME 08/04/22 Buspirone HCl [Buspar] 15 mg PO BID 08/04/22 Cariprazine HCl [Vraylar] 1.5 mg PO DAILY 08/04/22 Clopidogrel Bisulfate [Plavix*] 75 mg PO DAILY 08/04/22 Fluoxetine HCl [Prozac] 20 mg PO DAILY 08/04/22 Fluticasone/Umeclidin/Vilanter [Trelegy Ellipta 100-62.5-25] 1 puff IH DAILY 08/04/22 Guaifenesin [Mucinex] 1,200 mg PO BID 08/04/22 Insulin Aspart [Novolog Flexpen] See Protocol SQ ACHS 08/04/22 Insulin Glargine,Hum.rec.anlog [Lantus] 10 unit SQ BID 08/04/22 Ipratropium/Albuterol Sulfate [Iprat-Albut 0.5-3(2.5) mg/3 ml] 1 amp NEB Q4HP PRN 08/04/22 Lamotrigine [Lamictal] 100 mg PO BID 08/04/22 Levocetirizine Dihydrochloride [Allergy Relief] 5 mg PO DAILY 08/04/22 Linagliptin [Tradjenta] 5 mg PO DAILY 08/04/22 Metoprolol Tartrate [Lopressor*] 25 mg PO BID 08/04/22 Potassium Citrate [Potassium] 99 mg PO DAILY 08/04/22 Roflumilast [Daliresp*] 500 mcg PO DAILY 08/04/22 Trazodone HCl [Desyrel] 100 mg PO BEDTIME 08/04/22 levoFLOXacin [Levaquin*] 750 mg PO DAILY #5 tab 08/04/22 predniSONE [Deltasone*] 40 mg PO DAILY #30 tab 08/04/22 predniSONE [Prednisone*] 10 mg PO DAILY 08/04/22 - Past Medical/Surgical History Diabetic: Yes -: COPD -: HTN -: Diabetes mellitus type 2 -: CAD -: Depression -: bipolar -: anxiety -: neuropathy -: -: Stents Psychosocial/ Personal History: Patient is retired, lives with her daughter - Family History Father Notes: Patient is adopted - Social History Alcohol use: No CD- Drugs: No Caffeine use: Yes Review of Systems 10-point ROS is otherwise unremarkable Respiratory: Shortness of Breath Physical Examination - Physical Exam General: Alert, In no apparent distress, Oriented x3 HEENT: Atraumatic, PERRLA, Mucous membr. moist/pink, EOMI, Sclerae nonicteric Neck: Supple, 2+ carotid pulse no bruit, No LAD, Without JVD or thyroid abnormality Respiratory: Diminished, Expiratory wheezes Cardiovascular: Regular rate/rhythm, Normal S1 S2 Gastrointestinal: Normal bowel sounds, No tenderness Musculoskeletal: No tenderness Integumentary: No rashes Neurological: Normal speech, Normal strength at 5/5 x4 extr, Normal tone, Normal affect - Studies Laboratory Data (last 24 hrs) 11/19/22 11/19/22 11/19/22 18:12 18:12 18:12 WBC 10.80 Hgb 14.0 Hct 41.7 Plt Count 288 D PT 10.9 INR 0.99 Sodium 139 Potassium 3.9 BUN 9 Creatinine 0.99 Glucose 227 H Magnesium 2.1 Total Bilirubin 0.3 AST 38 H ALT 44 Alkaline Phosphatase 82 Assessment and Plan - Plan Assessment: COPD exacerbationon home O2/chronic steroids Diabetes mellitus type 2 with hyperglycemia Hypertension Hyperlipidemia Plan: COPD exacerbationon home O2/chronic steroids Continue as needed nebulizer treatments, p.o. steroids, ICS. Pulmonology to see patient. Continue home medications/home oxygen. Diabetes mellitus type 2 with hyperglycemia ACHS Accu-Chek, sliding scale insulin. Hypertension Hyperlipidemia Continue home medications. DVT PPX: Lovenox Code status: Full Discharge Plan: Home Plan to discharge in: 24 Hours - Advance Directives Does patient have a Living Will: No Does patient have a Durable POA for Healthcare: No - Code Status/Comfort Care Code Status Assessed: Yes (Full code) Critical Care: No Time Spent Managing Pts Care (In Minutes): 55
[2022-11-19 21:17] VITALS: BMI 22.1
[2022-11-19] MEDS ORDERED: IPRATROPIUM BROM 0.5MG/2.5ML NEB PRN (21:18)
[2022-11-19] MEDS ORDERED: ONDANSETRON 4 MG/2 ML VIAL IV PRN (21:18)
[2022-11-19] MEDS ORDERED: ACETAMINOPHEN 500 MG TAB PO PRN (21:18)
[2022-11-19] MEDS ORDERED: BENZONATATE 100 MG CAP PO PRN (21:18)
[2022-11-19] MEDS ORDERED: ALBUTEROL 2.5 MG/3 ML NEB SOL NEB PRN (21:18)
[2022-11-19] MEDS: NA CHLORIDE 0.9% 1,000 ML IV SCH (21:32)
[2022-11-19] MEDS: predniSONE 20 MG TAB PO SCH (21:33)
[2022-11-19] MEDS: INSULIN REGULAR (HUMAN) 100 UNIT/ML SQ SCH (21:33)
[2022-11-19] MEDS: DULERA 200/5 (MOMETASONE/FORMOTEROL) INHALER IH SCH (22:00)
[2022-11-20 06:19] LABS: Absolute Lymphocytes (CBC) 0.6 K/uL (0.7-4.9); Hematocrit 35.5 % (36.0-45.0); Lymphocytes % 7.6 % (15.3-44.8); MCV 91.7 fL (80-100); MPV 7.9 fL (7.6-11.3); Platelets 210 thou/uL (152-406); RBC Red Blood Cell Count 3.87 M/uL (3.86-4.86)
[2022-11-20] MEDS ORDERED: HYDRALAZINE HCL 20 MG/ML VIAL IV PRN (06:29)
[2022-11-20 06:30] LABS: Potassium 3.9 mEq/L (3.5-5.1)
[2022-11-20] MEDS: NA CHLORIDE 0.9% 1,000 ML IV SCH ×2 (06:36→22:05)
[2022-11-20] MEDS: ALPRAZOLAM 0.25 MG TABLET PO PRN ×2 (06:42→22:04)
[2022-11-20] MEDS ORDERED: HYDRALAZINE HCL 20 MG/ML VIAL ONE (06:51)
[2022-11-20 07:05] LABS: Specific Gravity 1.012 (1.005-1.030); Urine Bilirubin NEGATIVE (Negative); Urine Blood Negative (Negative); Urine Clarity Clear (Clear); Urine Color Colorless (Yellow); Urine Glucose 4+ (Over) (Negative); Urine Protein NEGATIVE (Negative); Urine Urobilinogen Normal (Normal)
[2022-11-20 07:26] LABS: Blood Morphology Comment NOT SEEN (NOT SEEN); Platelet Estimate ADEQ; White Blood Cell Scan OK (OK)
[2022-11-20] MEDS: ENOXAPARIN 40 MG/0.4 ML SQ SCH (07:49)
[2022-11-20] MEDS: predniSONE 20 MG TAB PO SCH ×2 (07:49→16:26)
[2022-11-20] MEDS: DULERA 200/5 (MOMETASONE/FORMOTEROL) INHALER IH SCH (07:50)
[2022-11-20] MEDS ORDERED: INFLUENZA VACCINE (for 6+ mo) 0.5 ML DOSE IMVAC ONE (08:00)
[2022-11-20] MEDS ORDERED: PNEUMOCOCCAL VACCINE 0.5 ML IMVAC ONE (08:00)
[2022-11-20] MEDS: INSULIN REGULAR (HUMAN) 100 UNIT/ML SQ SCH ×4 (08:51→22:02)
--- NOTE | 2022-11-20 12:19 | P.PN ---
Subjective Date of Service: 11/20/22 Chief Complaint: COPD exacerbation Patient is 66 years of age with a history of terminal COPD continues to smoke admitted with tachycardia denies any cough phlegm no fever chills Review of Systems General: Weakness Respiratory: Shortness of Breath Physical Examination - Vital Signs Temperature: 97.8 F Blood Pressure: 126/71 Pulse: 114 Respirations: 16 Pulse Ox (%): 92 - Physical Exam General: Alert, Moderate distress Respiratory: Clear to auscultation bilaterally, Diminished, Expiratory wheezes Cardiovascular: No edema, Regular rate/rhythm, Normal S1 S2 Gastrointestinal: Normal bowel sounds, Soft and benign - Studies Laboratory Data (last 24 hrs) 11/19/22 11/19/22 11/19/22 18:12 18:12 18:12 WBC 10.80 Hgb 14.0 Hct 41.7 Plt Count 288 D PT 10.9 INR 0.99 Sodium 139 Potassium 3.9 BUN 9 Creatinine 0.99 Glucose 227 H Magnesium 2.1 Total Bilirubin 0.3 AST 38 H ALT 44 Alkaline Phosphatase 82 Assessment And Plan - Current Problems (Diagnosis) (1) COPD exacerbation Current Visit: No Status: Acute Plan: Patient is 66 years of age with a history of severe COPD frequent exacerbations admitted again with rapid heart rate worsening shortness of breath x-ray shows COPD changes Labs show sinus tachycardia chemistries and labs all reviewed no significant findings will monitor patient on telemetry resume her home medications including her beta-fani patient is on maximal bronchodilator therapy with Trelegy Daliresp and nebulizer Discharge Plan: Home Plan to discharge in: 24 Hours
[2022-11-20] MEDS ORDERED: predniSONE 20 MG TAB PO SCH (12:23)
[2022-11-20] MEDS: METOPROLOL TAR 25 MG TAB PO SCH ×2 (12:26→22:04)
[2022-11-20] MEDS: IPRATROPIUM BROM 0.5MG/2.5ML NEB SCH ×2 (13:00→19:10)
--- NOTE | 2022-11-20 13:52 | EKG ---
Test Date: 2022-11-19 Test Time: 18:26:03 Tailor Helper: JOANN MEASUREMENT RESULTS: Intervals: Rate: 133 NM: 142 QRSD: 76 QT: 296 QTc: 440 [place]: P: 84 NM: 142 QRS: 17 T: 79 INTERPRETIVE STATEMENTS: Sinus tachycardia Otherwise normal ECG Compared to ECG 11/19/2022 12:38:45 Sinus rhythm no longer present Myocardial infarct finding no longer present Electronically Signed On 11-20-22 13:50:17 CDT by Ghanshyam Knox
--- NOTE | 2022-11-20 13:54 | EKG ---
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
[2022-11-20] MEDS ORDERED: ALBUTEROL 2.5 MG/3 ML NEB SOL NEB PRN (15:00)
[2022-11-20] MEDS ORDERED: ATORVASTATIN 40 MG TAB PO SCH (21:00)
[2022-11-20] MEDS ORDERED: TRAZODONE 50 MG TABLET PO SCH (21:00)
[2022-11-20] MEDS: INSULIN GLARGINE 100 UNIT/ML SQ SCH (22:03)
[2022-11-20] MEDS: BUSPIRONE HCL 15 MG TABLET PO SCH (22:04)
[2022-11-20] MEDS: lamoTRIgine 100 MG TAB PO SCH (22:05)
[2022-11-21] MEDS: IPRATROPIUM BROM 0.5MG/2.5ML NEB SCH ×2 (01:20→08:28)
[2022-11-21 02:31] VITALS: O2SAT 99
[2022-11-21 04:39] LABS: Absolute Lymphocytes (CBC) 1.8 K/uL (0.7-4.9); Hematocrit 37.9 % (36.0-45.0); Lymphocytes % 15.7 % (15.3-44.8); MCV 91.9 fL (80-100); Platelets 241 thou/uL (152-406); RBC Red Blood Cell Count 4.13 M/uL (3.86-4.86)
[2022-11-21] MEDS: INSULIN REGULAR (HUMAN) 100 UNIT/ML SQ SCH (07:22)
[2022-11-21] MEDS: ALPRAZOLAM 0.25 MG TABLET PO PRN (07:40)
[2022-11-21] MEDS: predniSONE 20 MG TAB PO SCH (07:40)
[2022-11-21 08:09] VITALS: BP 135/62; TEMP 97.3
[2022-11-21] MEDS ORDERED: ROFLUMILAST 500 MCG TABLET PO SCH (09:00)
[2022-11-21] MEDS ORDERED: HOME MED 1 EA UNK (Linagliptin [Tradjenta] 5 MG Tablet) PO SCH ×2 (09:00)
[2022-11-21] MEDS ORDERED: FLUOXETINE 20 MG CAP PO SCH (09:00)
[2022-11-21] MEDS ORDERED: HOME MED 1 EA UNK (Fluticasone/Umeclidin/Vilanter [Trelegy Ellipta 100-62.5-25] Blst.W.Dev IH SCH (09:00)
[2022-11-21] MEDS ORDERED: CLOPIDOGREL 75 MG TABLET PO SCH (09:00)
[2022-11-21] MEDS: BUSPIRONE HCL 15 MG TABLET PO SCH (09:12)
[2022-11-21] MEDS: METOPROLOL TAR 25 MG TAB PO SCH (09:12)
[2022-11-21] MEDS: ENOXAPARIN 40 MG/0.4 ML SQ SCH (09:12)
[2022-11-21] MEDS: lamoTRIgine 100 MG TAB PO SCH (09:12)
[2022-11-21] MEDS: INSULIN GLARGINE 100 UNIT/ML SQ SCH (09:14)
--- NOTE | 2022-11-22 10:54 | P.DS ---
Admission Date: 11/19/22 Discharge Date: 11/22/22 Disposition: ROUTINE DISCHARGE Discharge Condition: FAIR Reason for Admission: COPD exacerbation - Problems (1) COPD exacerbation Status: Acute Brief History of Present Illness: COPD exacerbation Hospital Course: Patient is 66 years of age with a history of severe COPD frequent exacerbations was admitted with another exacerbation complaint of rapid heart rate apparently she did not take her metoprolol patient was admitted treated with bronchodilators conservative therapy and did well at the time of discharge was doing well alert oriented chest diminished air entry cardiovascular stoma sounds normal with no evidence of A-fib she was advised to take her metoprolol patient is compliant with her bronchodilators follow-up with me in 2 weeks Vital Signs/Physical Exam: Temp Pulse Resp BP Pulse Ox 97.3 F 75 18 135/62 99 11/21/22 08:00 11/21/22 08:00 11/21/22 08:00 11/21/22 08:00 11/21/22 08:00 Laboratory Data at Discharge: WBC 11.80 thou/uL (4.3-10.9) H 11/21/22 03:49 Hgb 13.2 g/dL (12.0-15.0) 11/21/22 03:49 Hct 37.9 % (36.0-45.0) 11/21/22 03:49 Plt Count 241 thou/uL (152-406) 11/21/22 03:49 PT 10.9 SECONDS (9.5-12.5) 11/19/22 18:12 INR 0.99 11/19/22 18:12 Sodium 143 mEq/L (136-145) 11/21/22 03:49 Potassium 4.0 mEq/L (3.5-5.1) 11/21/22 03:49 BUN 16 mg/dL (7-18) 11/21/22 03:49 Creatinine 0.66 mg/dL (0.55-1.02) 11/21/22 03:49 Glucose 52 mg/dL (74-106) L* 11/21/22 03:49 Magnesium 2.1 mg/dL (1.6-2.4) 11/19/22 18:12 Total Bilirubin 0.3 mg/dL (0.2-1.0) 11/19/22 18:12 AST 38 U/L (15-37) H 11/19/22 18:12 ALT 44 U/L (13-56) 11/19/22 18:12 Alkaline Phosphatase 82 U/L (45-117) 11/19/22 18:12 Home Medications: Albuterol Inhaler [Ventolin Inhaler*] 2 puff IH Q4HP PRN 08/04/22 Albuterol Neb [Proventil 0.083% Neb Soln] 1 amp NEB Q4HP PRN 08/04/22 Buspirone HCl [Buspar] 2 tab PO BID 08/04/22 Clopidogrel Bisulfate [Plavix*] 75 mg PO DAILY 08/04/22 Fluoxetine HCl [Prozac] 20 mg PO DAILY 08/04/22 Fluticasone/Umeclidin/Vilanter [Trelegy Ellipta 100-62.5-25] 1 puff IH DAILY 08/04/22 Guaifenesin [Mucinex] 1,200 mg PO BID 08/04/22 Insulin Glargine,Hum.rec.anlog [Lantus] 10 unit SQ BID 08/04/22 Ipratropium/Albuterol Sulfate [Iprat-Albut 0.5-3(2.5) mg/3 ml] 1 amp NEB Q4HP PRN 08/04/22 Lamotrigine [Lamictal] 100 mg PO BID 08/04/22 Linagliptin [Tradjenta] 5 mg PO DAILY 08/04/22 Metoprolol Tartrate [Lopressor*] 25 mg PO BID 08/04/22 Potassium Citrate [Potassium] 99 mg PO DAILY 08/04/22 Roflumilast [Daliresp*] 500 mcg PO DAILY 08/04/22 Trazodone HCl [Desyrel] 100 mg PO BEDTIME 08/04/22 predniSONE [Prednisone*] 10 mg PO DAILY 08/04/22 Atorvastatin Calcium 1 tab PO BEDTIME 11/20/22 Insulin Aspart [Novolog Flexpen] See Protocol SQ BID 11/20/22 Physician Discharge Instructions: PROBLEM: COPD exacerbation GOAL: Clear understanding of disease process INSTRUCTIONS: Diet: Heart healthy Activity: as tolerated DME DME: Date Ordered: Name of Company: [employer] Services Needed: Name of Company: Date or Referral: IMMUNIZATION Influenza Vaccine Indicated: No Influenza Vaccine Given: No Date Given: Pneumonia Vaccine Indicated: No Pneumonia Vaccine Given: No Date Given: No new home meds Followup: Alonso Licona MD [ACTIVE - CAN ADMIT] - NONE,NONE [Primary Care Provider] -
== END 2022-11-21 11:16 | disposition home or self-care (01) ==
LOC: ER 18:04 → ERHOLD 20:20 → 4TH 20:37
PROVIDERS: ADMIT Internal Medicine Sleep Medicine; ATTEND Internal Medicine Sleep Medicine
DX: J44.1 Chronic obstructive pulmonary disease with (acute) exacerbation (principal); R00.0 Tachycardia, unspecified; E11.65 Type 2 diabetes mellitus with hyperglycemia; I10 Essential (primary) hypertension; E78.5 Hyperlipidemia, unspecified; F17.210 Nicotine dependence, cigarettes, uncomplicated; Z79.899 Other long term (current) drug therapy; Z99.81 Dependence on supplemental oxygen; Z79.51 Long term (current) use of inhaled steroids
CPT/HCPCS: 93005 ×2; 85025 ×3; 80048 ×3; 36415 ×2; 83735; 85610; 82947 ×6; 80076; 81003; 84484; 83880; 71045; 96375; 96374; 99285; J1815 ×5; J7512 ×5; J3475; J3535; J0360; J7614 ×2; J7613; J7644 ×5; J1650 ×2; J2930; J7050; J7030 ×4; J0696; G0378 ×4

== ENCOUNTER → 2023-02-27 | Emergency (ER) | payer OTHER ==
[~2023-02-27] MED LIST: ALBUTEROL 2.5 MG/3 ML NEB SOL ONE; INSULIN REGULAR (HUMAN) 100 UNIT/ML ONE; IPRATROPIUM BROM 0.5MG/2.5ML ONE; Levofloxacin500mg IV 500 MG/100 ML BAG IV ONE; NA CHLORIDE 0.9% 250 ML ONE
[2023-02-27 01:32] LABS: Protime INR 0.97
[2023-02-27 02:10] LABS: Absolute Lymphocytes (CBC) 0.6 K/uL (0.7-4.9); Lymphocytes % 7.1 % (15.3-44.8); MCV 93.1 fL (80-100); MPV 8.2 fL (7.6-11.3); Platelets 227 thou/uL (152-406); RBC Red Blood Cell Count 4.29 M/uL (3.86-4.86)
[2023-02-27 02:27] LABS: Potassium 3.9 mEq/L (3.5-5.1); Troponin High Sensitivity 11.6 pg/mL (<58.9)
--- NOTE | 2023-02-27 02:47 | ER ---
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 [facility] stated gave patient A\T\A tx and Solu-Medrol 125 mg IVP and patient gave herself 1 albuterol tx. 00:26 Coronavirus screen: Vaccine status: Patient reports being unvaccinated. Client denies pf1 travel out of the [place] in the last 14 days. Client presents with at least one sign or symptom that may indicate coronavirus-19. Ebola Screen: Patient negative for fever greater than or equal to 101.5 degrees Fahrenheit, and additional compatible Ebola Virus Disease symptoms. Initial Sepsis Screen: Does the patient meet any 2 criteria? HR > 90 bpm. No. Patient's initial sepsis screen is negative. Does the patient have a suspected source of infection? No. Patient's initial sepsis screen is negative. Risk Assessment: Do you want to hurt yourself or someone else? Patient reports no desire to harm self or others. 00:26 Method Of Arrival: EMS: [facility] pf1 00:26 Acuity: CONSTANTINO 3 pf1 Historical: - Allergies: 02:10 Benadryl; pf1 02:10 Lorazepam; pf1 02:10 Valium; pf1 - PMHx: 02:10 Chronic obstructive lung disease; diabetes mellitus; Emphysema; Hypercholesterolemia; pf1 Hypertensive disorder; 02:10 O2 dependent 2L-4L PRN; pf1 03:13 CHF; pf1 - PSHx: 02:10 section; Heart Stents; pf1 - Immunization history:: Adult Immunizations not up to date, Client reports having NOT received the Covid vaccine. Last tetanus immunization: > 10 years ago Flu vaccine is not up to date. - Social history:: Smoking status: Patient reports the use of cigarette tobacco products, smokes one pack cigarettes per day. Patient/guardian denies using street drugs. Screenin:26 [facility] ED Fall Risk Assessment (Adult) History of falling in the last 3 months, pf1 including since admission No falls in past 3 months (0 pts) Confusion or Disorientation No (0 pts) Intoxicated or Sedated No (0 pts) Impaired Gait Yes (1 pt) Mobility Assist Device Used Yes (1 pt) Altered Elimination No (0 pt) Score/Fall Risk Level 0 - 2 = Low Risk Oriented to surroundings, Maintained a safe environment, Educated pt \T\ family on fall prevention, incl call for assistance when getting out of bed, Assessed \T\ reinforced patient's understanding of fall precautions, Provided non-skid footwear, Hourly rounding (assess needs \T\ fall precautionary measures) done, Used ambulatory aids as needed (educated on \T\ assisted with), Used gait belt as appropriate. 00:26 Abuse screen: Denies threats or abuse. Nutritional screening: No deficits noted. pf1 Tuberculosis screening: No symptoms or risk factors identified. Assessment: 00:30 General: Appears in no apparent distress. comfortable, well groomed, well developed, pf1 Behavior is. 00:30 Pain: Denies pain. Neuro: No deficits noted. Level of Consciousness is awake, alert, pf1 obeys commands, Oriented to person, place, time, situation. Cardiovascular: Reports shortness of breath, Capillary refill < 3 seconds Patient's skin is warm and dry. Respiratory: Reports shortness of breath at rest on exertion Airway is patent Respiratory effort is even, unlabored, Respiratory pattern is regular, agonal Breath sounds with wheezes bilaterally. GI: No deficits noted. No signs and/or symptoms were reported involving the gastrointestinal system. : No deficits noted. No signs and/or symptoms were reported regarding the genitourinary system. EENT: No deficits noted. No signs and/or symptoms were reported regarding the EENT system. Derm: No deficits noted. No signs and/or symptoms reported regarding the dermatologic system. 01:30 Reassessment: Patient appears in no apparent distress at this time. Patient and/or pf1 family updated on plan of care and expected duration. Pain level reassessed. Patient is alert, oriented x 3, equal unlabored respirations, skin warm/dry/pink. Patient states symptoms have improved. 02:30 Reassessment: Patient appears in no apparent distress at this time. Patient and/or pf1 family updated on plan of care and expected duration. Pain level reassessed. Patient is alert, oriented x 3, equal unlabored respirations, skin warm/dry/pink. Patient states feeling better. Patient states symptoms have improved. 03:30 Reassessment: Patient appears in no apparent distress at this time. Patient and/or pf1 family updated on plan of care and expected duration. Pain level reassessed. Patient is alert, oriented x 3, equal unlabored respirations, skin warm/dry/pink. Patient states feeling better. Patient states symptoms have improved. Vital Signs: 00:26 BP 148 / 84; Pulse 94; Resp 19; Temp 98.4; Pulse Ox 96% on 3 lpm NC; Weight 68.04 kg; pf1 Height 5 ft. 6 in. ; Pain 0/10; 01:30 BP 133 / 70; Pulse 93; Resp 22; Pulse Ox 96% on 3 lpm NC; Pain 0/10; pf1 02:00 BP 153 / 88; Pulse 94; Resp 20; Pulse Ox 95% on 3 lpm NC; Pain 0/10; pf1 02:30 BP 152 / 70; Pulse 94; Resp 22; Pulse Ox 100% on 3 lpm NC; pf1 03:15 BP 159 / 77; Pulse 92; Resp 17; Pulse Ox 100% on 3 lpm NC; Pain 0/10; pf1 00:26 Body Mass Index 24.21 (68.04 kg, 167.64 cm) pf1 00:26 Pain Scale: Adult pf1 01:30 Pain Scale: Adult pf1 02:00 Pain Scale: Adult pf1 03:15 Pain Scale: Adult pf1 ED Course: 00:26 Patient arrived in ED. lg3 00:26 No provider procedures requiring assistance completed. Maintain EMS IV. Dressing pf1 intact. Good blood return noted. Site clean \T\ dry. Gauge \T\ site: 20 gauge to LForearm. 00:26 Patient has correct armband on for positive identification. Placed in gown. Bed in low pf1 position. Call light in reach. Side rails up X2. 00:26 Arm band placed on left wrist. pf1 00:30 Isaac Herman MD is Attending Physician. sp3 00:54 Basic Metabolic Panel Sent. pf1 00:54 CBC with Diff Sent. pf1 00:54 Magnesium Sent. pf1 00:54 NT PRO-BNP Sent. pf1 00:54 PT-INR Sent. pf1 00:54 Troponin HS Sent. pf1 00:58 XRAY Chest (1 view) In Process Unspecified. EDMS 01:07 Lactate w/ 2H reflex if indic. Sent. pf1 01:41 Triage completed. pf1 01:55 Inserted saline lock: 22 gauge in right antecubital area, using aseptic technique. pf1 Blood collected. 03:10 IV discontinued, intact, bleeding controlled, No redness/swelling at site. Pressure pf1 dressing applied, left forearm 20 gauge removed. 03:30 IV discontinued, intact, bleeding controlled, No redness/swelling at site. Pressure pf1 dressing applied, 22 gauge IV removed from RAC. 03:31 Provided Education on: follow up and prescription. pf1 Administered Medications: 01:20 Drug: DuoNeb Nebulize (3:1) (2.5 mg - 0.5 mg) 3 ml Nebulizer once Route: Nebulizer; pf1 02:05 Follow up: Response: No adverse reaction; Marked relief of symptoms pf1 01:35 Drug: levofloxacin IVPB 500 mg 100 ml IVPB once over 60 mins Volume: 100 ml; Route: pf1 IVPB; Infused Over: 60 mins; Site: left forearm; 02:06 Follow up: Response: No adverse reaction pf1 02:35 Follow up: IV Status: Completed infusion pf1 03:00 Drug: NS 0.9% IV 250 ml IV at bolus once Route: IV; Rate: bolus; Site: right pf1 antecubital; 03:15 Follow up: Response: No adverse reaction; Marked relief of symptoms pf1 03:30 Follow up: Response: No adverse reaction; Marked relief of symptoms; IV Status: pf1 Completed infusion; IV Intake: 250ml 03:00 Drug: Insulin Regular Human IVP 10 units IVP once {Co-Signature: [email or web address] (Lilli Coello RN).} pf1 Route: IVP; Site: right antecubital; 03:30 Follow up: Response: No adverse reaction pf1 Medication: 03:32 VIS not applicable for this client. pf1 Intake: 03:30 IV: 250ml; Total: 250ml. pf1 Outcome: 02:47 Discharge ordered by . sp3 03:31 Discharged to home via wheelchair, pf1 03:31 Condition: improved 03:31 Discharge instructions given to patient, Instructed on discharge instructions, follow up and referral plans. Demonstrated understanding of instructions, follow-up care, medications, Prescriptions given X 1, 03:32 Patient left the ED. pf1 Signatures: Dispatcher [employer] EDCherrie Bronson RN RN lg3 Isaac Herman MD MD sp3 Michelle Ng RN RN pf1 Lilli Coello RN jw7 Corrections: (The following items were deleted from the chart) 02:11 02:10 PMHx: [place] (Hypertensive disorder); pf1 pf1 02:30 01:30 BP 133 / 70; Pulse 93bpm; Resp 22bpm; Pulse Ox 96% RA; Pain 0/10, Adult; pf1 pf1
--- NOTE | 2023-02-27 02:47 | EDPHYS ---
Physician Documentation [facility] Name: Dalia Reyes Age: 67 yrs Sex: Female : 1955 Arrival Date: 02/27/2023 Time: 00:17 Bed 17 Private MD: ED Physician Isaac Herman HPI: 02/27 00:39 This 67 yrs old Female presents to ER via Unassigned with complaints of shortness of sp3 breath copd. 00:39 67-year-old female with a history of COPD, tobacco abuse, CHF presents to the ED with sp3 chief complaint shortness of breath and COPD exacerbation. Patient activated EMS secondary to symptoms who arrived to find patient giving herself nebulizer treatment sitting up with tachypnea and mild respiratory difficulty. Patient was loaded in the ambulance and given albuterol and Atrovent along with Solu-Medrol 125 mg IV and upon arrival to the ED patient is much improved. Patient is now asking to be discharged as she states all of her symptoms are resolved. She denies any chest pain, ongoing shortness of breath, pain anywhere else, fever, cough, or any other symptoms. Remainder of ROS is negative.. Historical: - Allergies: 02:10 Benadryl; pf1 02:10 Lorazepam; pf1 02:10 Valium; pf1 - PMHx: 02:10 Chronic obstructive lung disease; diabetes mellitus; Emphysema; Hypercholesterolemia; pf1 Hypertensive disorder; 02:10 O2 dependent 2L-4L PRN; pf1 03:13 CHF; pf1 - PSHx: 02:10 section; Heart Stents; pf1 - Immunization history:: Adult Immunizations not up to date, Client reports having NOT received the Covid vaccine. Last tetanus immunization: > 10 years ago Flu vaccine is not up to date. - Social history:: Smoking status: Patient reports the use of cigarette tobacco products, smokes one pack cigarettes per day. Patient/guardian denies using street drugs. ROS: 00:41 Constitutional: Negative for fever, chills, and weight loss, Eyes: Negative for injury, sp3 pain, redness, and discharge, ENT: Negative for injury, pain, and discharge, Neck: Negative for injury, pain, and swelling, Cardiovascular: Negative for chest pain, palpitations, and edema, Abdomen/GI: Negative for abdominal pain, nausea, vomiting, diarrhea, and constipation, Back: Negative for injury and pain, MS/Extremity: Negative for injury and deformity, Skin: Negative for injury, rash, and discoloration, Neuro: Negative for headache, weakness, numbness, tingling, and seizure, Psych: Negative for depression, anxiety, suicide ideation, homicidal ideation, and hallucinations, Allergy/Immunology: Negative for hives, rash, and allergies, Endocrine: Negative for neck swelling, polydipsia, polyuria, polyphagia, and marked weight changes, 00:41 All other systems are negative, Exam: 00:42 Constitutional: This is a well developed, well nourished patient who is awake, alert, sp3 and in no acute distress. Head/Face: Normocephalic, atraumatic. Eyes: Pupils equal round and reactive to light, extra-ocular motions intact. Lids and lashes normal. Conjunctiva and sclera are non-icteric and not injected. Cornea within normal limits. Periorbital areas with no swelling, redness, or edema. ENT: Nares patent. No nasal discharge, no septal abnormalities noted. External auditory canals are clear. Oropharynx with no redness, swelling, or masses, exudates, or evidence of obstruction, uvula midline. Mucous membranes moist. Neck: Trachea midline, no thyromegaly or masses palpated, and no cervical lymphadenopathy. Supple, full range of motion without nuchal rigidity, or vertebral point tenderness. No Meningismus. Chest/axilla: Normal chest wall appearance and motion. Nontender with no deformity. No lesions are appreciated. Cardiovascular: Regular rate and rhythm with a normal S1 and S2. No gallops, murmurs, or rubs. Normal PMI, no JVD. No pulse deficits. Abdomen/GI: Soft, non-tender, with normal bowel sounds. No distension or tympany. No guarding or rebound. No evidence of tenderness throughout. Back: No spinal tenderness. No costovertebral tenderness. Full range of motion. Skin: Warm, dry with normal turgor. Normal color with no rashes, no lesions, and no evidence of cellulitis. MS/ Extremity: Pulses equal, no cyanosis. Neurovascular intact. Full, normal range of motion. Neuro: Awake and alert, GCS 15, oriented to person, place, time, and situation. Cranial nerves II-XII grossly intact. Motor strength 5/5 in all extremities. Sensory grossly intact. Cerebellar exam normal. Normal gait. Psych: Awake, alert, with orientation to person, place and time. Behavior, mood, and affect are within normal limits. 00:42 Respiratory: Mild ongoing wheezing noted. Patient is speaking in full sentences in no acute distress with 97% room air pulse oxygenation on her baseline 2 L., Vital Signs: 00:26 BP 148 / 84; Pulse 94; Resp 19; Temp 98.4; Pulse Ox 96% on 3 lpm NC; Weight 68.04 kg; pf1 Height 5 ft. 6 in. ; Pain 0/10; 01:30 BP 133 / 70; Pulse 93; Resp 22; Pulse Ox 96% on 3 lpm NC; Pain 0/10; pf1 02:00 BP 153 / 88; Pulse 94; Resp 20; Pulse Ox 95% on 3 lpm NC; Pain 0/10; pf1 02:30 BP 152 / 70; Pulse 94; Resp 22; Pulse Ox 100% on 3 lpm NC; pf1 03:15 BP 159 / 77; Pulse 92; Resp 17; Pulse Ox 100% on 3 lpm NC; Pain 0/10; pf1 00:26 Body Mass Index 24.21 (68.04 kg, 167.64 cm) pf1 00:26 Pain Scale: Adult pf1 01:30 Pain Scale: Adult pf1 02:00 Pain Scale: Adult pf1 03:15 Pain Scale: Adult pf1 MDM: 00:30 Patient medically screened. sp3 00:42 Data reviewed: vital signs, nurses notes, EMS record, old medical records, lab test sp3 result(s), EKG, radiologic studies. ED course: 67-year-old female with now resolving COPD exacerbation. Will obtain chest x-ray, EKG and laboratory values to ensure there is no other process going on. Differential diagnosis other than a COPD exacerbation includes CHF exacerbation, ACS, other pulmonary infectious process. I am not highly suspicious for sepsis, shock, PE, electrolyte abnormality, or any other critical process. If workup is negative and patient continues to feel improved, we will safely discharge her home. We will add 1 additional nebulizer while she is waiting for the remainder of her workup.. 02:45 ED course: Patient with mildly elevated lactate and high glucose. We will administer a sp3 small amount of IV fluids and insulin 10 units IV. Patient feels dramatically better and states she is ready to go home. After above intervention we will safely discharge her.. 02/27 00:32 Order name: Basic Metabolic Panel; Complete Time: 02:44 3 02/27 00:32 Order name: CBC with Diff 3 02/27 00:32 Order name: Magnesium; Complete Time: 02:44 3 02/27 00:32 Order name: NT PRO-BNP; Complete Time: 02:44 3 02/27 00:32 Order name: PT-INR; Complete Time: 01:59 3 02/27 00:32 Order name: Troponin HS; Complete Time: 02:44 3 02/27 00:32 Order name: Lactate w/ 2H reflex if indic.; Complete Time: 01:59 3 02/27 02:15 Order name: Manual Differential EDMS 02/27 03:07 Order name: Glucose, Ancillary Testing EDMS 02/27 00:32 Order name: XRAY Chest (1 view) 3 02/27 00:32 Order name: EKG; Complete Time: 00:33 3 02/27 00:32 Order name: Cardiac monitoring; Complete Time: 00:54 02/27 00:32 Order name: EKG - Nurse/Tech; Complete Time: 01:36 02/27 00:32 Order name: IV Saline Lock; Complete Time: 00:54 02/27 00:32 Order name: Labs collected and sent; Complete Time: 00:54 3 02/27 00:32 Order name: O2 Per Protocol; Complete Time: 00:54 02/27 00:32 Order name: O2 Sat Monitoring; Complete Time: 00:54 02/27 01:43 Order name: Labs - recollect needed; Complete Time: 01:52 pf1 Administered Medications: 01:20 Drug: DuoNeb Nebulize (3:1) (2.5 mg - 0.5 mg) 3 ml Nebulizer once Route: Nebulizer; pf1 02:05 Follow up: Response: No adverse reaction; Marked relief of symptoms pf1 01:35 Drug: levofloxacin IVPB 500 mg 100 ml IVPB once over 60 mins Volume: 100 ml; Route: pf1 IVPB; Infused Over: 60 mins; Site: left forearm; 02:06 Follow up: Response: No adverse reaction pf1 02:35 Follow up: IV Status: Completed infusion pf1 03:00 Drug: NS 0.9% IV 250 ml IV at bolus once Route: IV; Rate: bolus; Site: right pf1 antecubital; 03:15 Follow up: Response: No adverse reaction; Marked relief of symptoms pf1 03:30 Follow up: Response: No adverse reaction; Marked relief of symptoms; IV Status: pf1 Completed infusion; IV Intake: 250ml 03:00 Drug: Insulin Regular Human IVP 10 units IVP once {Co-Signature: [email or web address] (Lilli Coello RN).} pf1 Route: IVP; Site: right antecubital; 03:30 Follow up: Response: No adverse reaction pf1 Disposition Summary: 02/27/23 02:47 Discharge Ordered Notes: Location: Home sp3 Condition: Stable sp3 Diagnosis - COPD exacerbation, mild dehydration, hyperglycemia sp3 Followup: sp3 - With: Private Physician - When: Upon discharge from the Emergency Department - Reason: Continuance of care Discharge Instructions: - Discharge Summary Sheet sp3 - Hyperglycemia sp3 - COPD and Physical Activity sp3 Forms: - Medication Reconciliation Form sp3 - Thank You Letter sp3 - Antibiotic Education sp3 - Prescription Opioid Use sp3 - Patient Portal Instructions sp3 - Leadership Thank You Letter sp3 Prescriptions: - Prednisone 20 mg Oral Tablet - take 2 tablets ORAL route once daily for 5 days; 10 tablet; Refills: 0, Product sp3 Selection Permitted Signatures: Dispatcher [employer] Isaac Rodriguez MD MD sp3 Michelle Ng RN RN pf1 Lilli Coello RN jw7 Corrections: (The following items were deleted from the chart) 01:45 01:36 Miscellaneous Lab Test+[id number].LAB.BRZ ordered. EDMS EDMS 02:11 02:10 PMHx: [place] (Hypertensive disorder); pf1 pf1
[2023-02-27 04:53] LABS: Blood Morphology Comment NOT SEEN (NOT SEEN); Platelet Estimate ADEQ
[2023-02-27 09:04] VITALS: TEMP 98.4
[2023-02-27 09:20] VITALS: BP 159/77; O2SAT 100
--- NOTE | 2023-02-28 19:03 | RAD REPORT ---
EXAM DESCRIPTION: RAD - Chest Single View - 02/27/2023 12:56 am CLINICAL HISTORY: COPD TECHNIQUE: AP chest COMPARISON: None available for comparison FINDINGS: CHEST: Heart: The cardiomediastinal silhouette is within normal limits. Lungs: No focal consolidation. Mild interstitial prominence, likely chronic. Mediastinum: Unremarkable Pleura: No appreciable effusion. No pneumothorax. Bones: Intact IMPRESSION: Mild interstitial prominence, likely chronic. No focal consolidation. Electronically signed by: Selvin Eckert MD 02/27/2023 01:05 AM INFUSION NURSE Due to temporary technical issues with the PACS/Fluency reporting system, reports are being signed by the in house radiologists without review as a courtesy to insure prompt reporting. The interpreting radiologist is fully responsible for the content of the report.
--- NOTE | 2023-03-01 16:59 | EKG ---
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
== END ==
LOC: ER 00:17
DX: J44.1 Chronic obstructive pulmonary disease with (acute) exacerbation (principal); E86.0 Dehydration; R73.9 Hyperglycemia, unspecified; R06.02 Shortness of breath; R06.2 Wheezing; Z88.8 Allergy status to other drugs, medicaments and biological substances; E11.9 Type 2 diabetes mellitus without complications; J43.9 Emphysema, unspecified; I10 Essential (primary) hypertension; I50.9 Heart failure, unspecified; Z72.0 Tobacco use
CPT/HCPCS: 93005; 85025; 80048; 36415; 83735; 85610; 82947; 83605; 84484; 83880; 71045; 94640; 99285; J1815; J7613; J7644; J7050

== ENCOUNTER 2023-05-20 18:36 | Emergency (ER) | payer OTHER ==
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
[2023-05-20 22:13] VITALS: BP 128/71; O2SAT 94
--- NOTE | 2023-05-21 13:37 | EKG ---
Test Date: 2023-05-20 Test Time: 18:29:35 Sliding Joint Maker: ROSARIO MEASUREMENT RESULTS: Intervals: Rate: 110 TN: 148 QRSD: 76 QT: 352 QTc: 476 [place]: P: 82 TN: 148 QRS: 74 T: 77 INTERPRETIVE STATEMENTS: Sinus tachycardia Biatrial enlargement Abnormal ECG Compared to ECG 02/27/2023 01:23:16 Sinus rhythm no longer present Electronically Signed On 05-21-23 13:36:15 CDT by Ghanshyam Knox
== END 2023-05-20 19:33 | disposition left against medical advice (07) ==
LOC: ER 18:36
DX: J44.1 Chronic obstructive pulmonary disease with (acute) exacerbation (principal); Z99.81 Dependence on supplemental oxygen; I10 Essential (primary) hypertension; E11.9 Type 2 diabetes mellitus without complications; I50.9 Heart failure, unspecified; F17.210 Nicotine dependence, cigarettes, uncomplicated; Z88.5 Allergy status to narcotic agent; Z88.8 Allergy status to other drugs, medicaments and biological substances
CPT/HCPCS: 82947; 93005; 99284

== ENCOUNTER 2023-08-17 03:25 | Emergency (ER) | payer OTHER ==
[2023-08-17] MEDS ORDERED: ALBUTEROL 2.5 MG/3 ML NEB SOL ONE ×2 (03:33→04:35)
[2023-08-17] MEDS ORDERED: IPRATROPIUM BROM 0.5MG/2.5ML ONE ×2 (03:33→04:35)
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
[2023-08-17 05:02] VITALS: BP 128/69; TEMP 97.6; O2SAT 96
== END 2023-08-17 04:41 | disposition home or self-care (01) ==
LOC: ER 03:25
DX: J44.1 Chronic obstructive pulmonary disease with (acute) exacerbation (principal); E11.9 Type 2 diabetes mellitus without complications; E78.00 Pure hypercholesterolemia, unspecified; I10 Essential (primary) hypertension; I50.9 Heart failure, unspecified; Z99.81 Dependence on supplemental oxygen; X37.0XXA Hurricane, initial encounter
CPT/HCPCS: 94640; 99283; J7613 ×2; J7644 ×2

== ENCOUNTER 2023-10-04 18:45 | Emergency (ER) | payer OTHER ==
--- NOTE | 2023-10-04 19:49 | RAD REPORT ---
EXAM DESCRIPTION: Luda Single View10/04/2023 7:33 pm CLINICAL HISTORY: Cough COMPARISON: 2022 FINDINGS: The lungs are moderately to markedly hyperaerated consistent with COPD. The lungs appear clear of acute infiltrate. The heart is normal size IMPRESSION: No acute abnormalities displayed
[2023-10-04 20:01] LABS: Absolute Lymphocytes (CBC) 0.6 K/uL (0.7-4.9); Absolute Monocytes 0.2 K/uL (0.1-1.3); Absolute Neutrophil 5.3 K/uL (1.8-8.0); Basophils % 0.5 % (0-1.3); Eosinophils % 0.5 % (0-4.4); Hematocrit 40.6 % (36.0-45.0); Hemoglobin 13.5 g/dL (12.0-15.0); Lymphocytes % 10.1 % (15.3-44.8); MCH 30.9 pg (27.0-35.0); MCHC 33.4 g/dL (32.0-36.0); MCV 92.7 fL (80-100); MPV 7.9 fL (7.6-11.3); Monocytes % 3.9 % (3.3-12.3); Nucleated Red Blood Cells % 0.1 % (0-0); Platelets 228 thou/uL (152-406); RBC Red Blood Cell Count 4.37 M/uL (3.86-4.86); Red Cell Distribution Width 12.6 % (12.1-15.2)
[2023-10-04] MEDS ORDERED: METHYLPREDNISOLONE 125 MG INJ ONE (20:02)
[2023-10-04] MEDS ORDERED: MAGNESIUM SULFATE 1 gm IVPB 1 GM/100 ML BAG IV ONE (20:02)
[2023-10-04 20:30] LABS: Albumin 3.3 g/dL (3.4-5.0); Albumin/Globulin Ratio 0.8 (1.1-1.8); Anion Gap 6.8 mEq/L (5.0-15.0); Bilirubin Total 0.4 mg/dL (0.2-1.0); Globulin 3.9 g/dL (2.3-3.5); Potassium 4.8 mEq/L (3.5-5.1); Protein, Total 7.2 g/dL (6.4-8.2)
[2023-10-04 20:40] LABS: PT Prothrombin Time 11.2 SECONDS (9.4-12.5); PTT, Activated Partial Thromb 32.7 SECONDS (24.3-36.9)
[2023-10-04 21:59] LABS: SARS-CoV-2 Antigen CONTROL BLUE LINE VIS/BG OK; SARS-CoV-2 Antigen Rapid Res Negative (Negative)
--- NOTE | 2023-10-04 22:12 | ER ---
Nurse's Notes [facility] Name: Dalia Reyes Age: 67 yrs Sex: Female : 1955 Arrival Date: 10/04/2023 Time: 18:45 Bed 16 Private MD: Diagnosis: COPD/ Chronic obstructive pulmonary disease with (acute) exacerbation Presentation: 10/03 18:55 Chief complaint: EMS states: Called 911 for difficulty breathing that started a few ph days ago and has gotten progressively worse, hx of COPD and CHF, was 95% on home oxygen, audible wheezes, neb treatment given x 1, 20G to R wrist. Coronavirus screen: Vaccine status: Patient reports receiving the 2nd dose of the covid vaccine. Ebola Screen: No symptoms or risks identified at this time. Initial Sepsis Screen: Does the patient meet any 2 criteria? No. Patient's initial sepsis screen is negative. Does the patient have a suspected source of infection? No. Patient's initial sepsis screen is negative. Risk Assessment: Do you want to hurt yourself or someone else? Patient reports no desire to harm self or others. Onset of symptoms was October 04, 2023. 18:55 Method Of Arrival: EMS: [facility] ph 18:55 Acuity: CONSTANTINO 3 ph Triage Assessment: 18:58 General: Appears in no apparent distress. Behavior is calm, cooperative. Pain: ph Complains of pain in chest. Neuro: Level of Consciousness is awake, alert, obeys commands, Oriented to person, place, time, situation. Cardiovascular: Reports chest pain, shortness of breath. Respiratory: Reports shortness of breath at rest cough that is Onset: The symptoms/episode began/occurred gradually. Derm: Skin is pink, warm \T\ dry. Historical: - Allergies: 18:57 Benadryl; ph 18:57 Lorazepam; ph 18:57 Valium; ph - PMHx: 18:57 CHF; Chronic obstructive lung disease; diabetes mellitus; Emphysema; ph Hypercholesterolemia; Hypertensive disorder; O2 dependent 2L-4L PRN; - PSHx: 18:57 section; Heart Stents; ph - Immunization history:: Adult Immunizations unknown. - Infectious Disease History:: Denies. - Social history:: Smoking status: Patient reports the use of cigarette tobacco products, 5 cigarettes per day. Screenin:59 [facility] ED Fall Risk Assessment (Adult) History of falling in the last 3 months, ph including since admission No falls in past 3 months (0 pts) Confusion or Disorientation No (0 pts) Intoxicated or Sedated No (0 pts) Impaired Gait No (0 pts) Mobility Assist Device Used No (0 pt) Altered Elimination No (0 pt) Score/Fall Risk Level 0 - 2 = Low Risk Oriented to surroundings, Maintained a safe environment, Hourly rounding (assess needs \T\ fall precautionary measures) done. Abuse screen: Denies threats or abuse. Denies injuries from another. Nutritional screening: No deficits noted. Tuberculosis screening: No symptoms or risk factors identified. Assessment: 19:00 Reassessment: Patient appears in no apparent distress at this time. Patient and/or jb4 family updated on plan of care and expected duration. Pain level reassessed. Patient is alert, oriented x 3, equal unlabored respirations, skin warm/dry/pink. 20:00 Reassessment: Patient appears in no apparent distress at this time. Patient and/or jb4 family updated on plan of care and expected duration. Pain level reassessed. Patient is alert, oriented x 3, equal unlabored respirations, skin warm/dry/pink. 21:17 Reassessment: Patient appears in no apparent distress at this time. Patient and/or jb4 family updated on plan of care and expected duration. Pain level reassessed. Patient is alert, oriented x 3, equal unlabored respirations, skin warm/dry/pink. 22:15 Reassessment: Patient appears in no apparent distress at this time. Patient and/or jb4 family updated on plan of care and expected duration. Pain level reassessed. Patient is alert, oriented x 3, equal unlabored respirations, skin warm/dry/pink. 23:00 Reassessment: Patient appears in no apparent distress at this time. Patient and/or jb4 family updated on plan of care and expected duration. Pain level reassessed. Patient is alert, oriented x 3, equal unlabored respirations, skin warm/dry/pink. D/c pending ride home. Vital Signs: 18:55 BP 133 / 111; Pulse 78; Resp 18; Temp 97.5; Pulse Ox 99% on Nebulizer Mask; Weight ph 61.23 kg; Height 5 ft. 6 in. ; 21:00 BP 139 / 73; Pulse 81; Resp 16; Pulse Ox 97% on 2 lpm NC; jb4 18:55 Body Mass Index 21.79 (61.23 kg, 167.64 cm) ph ED Course: 18:54 Patient arrived in ED. ph 18:55 [facility] Esquivel [facility]NP-C [facility]. kb 18:55 Isaac Herman MD is Attending Physician. kb 18:57 Triage completed. ph 18:59 Arm band placed on Patient placed in an exam room, on a stretcher, on oxygen, on pulse ph oximetry. 18:59 Patient has correct armband on for positive identification. Bed in low position. Call ph light in reach. Side rails up X2. Pulse ox on. NIBP on. Door closed. Noise minimized. 19:22 EKG done, by ED staff, reviewed by Haily CHINCHILLA. oe 19:34 Chest Single View XRAY In Process Unspecified. EDMS 19:55 Ptt, Activated Sent. jb4 19:55 Protime (+inr) Sent. jb4 19:55 Lactate w/ 2H reflex if indic. Sent. jb4 19:55 CMP Sent. jb4 19:55 CBC with Diff Sent. jb4 19:55 Blood Culture Adult (2) Sent. jb4 19:55 Flu Sent. jb4 19:55 SARS-COV-2 Antigen Rapid Sent. jb4 23:00 Provided Education on: discharge instructions.. jb4 23:00 No provider procedures requiring assistance completed. IV discontinued, intact, jb4 bleeding controlled, No redness/swelling at site. Pressure dressing applied. Administered Medications: 20:12 Drug: MethylPrednisoLONE IVP 125 mg IVP once Route: IVP; Site: left wrist; jb4 22:45 Follow up: Response: No adverse reaction; Marked relief of symptoms jb4 20:12 Drug: Magnesium Sulfate IVPB 1 grams IVPB once over 1 hrs Route: IVPB; Infused Over: 1 jb4 hrs; Site: left wrist; 21:15 Follow up: Response: No adverse reaction; Marked relief of symptoms; IV Status: jb4 Completed infusion; IV Intake: 100ml 22:44 Drug: Albuterol Inhalation 2.5 mg Inhalation once Route: Inhalation; jb4 22:44 Drug: AZITHromycin PO 500 mg PO once Route: PO; jb4 Medication: 18:59 VIS not applicable for this client. ph Intake: 21:15 IV: 100ml; Total: 100ml. jb4 Outcome: 22:12 Discharge ordered by MD. dubon 23:13 Discharged to home via wheelchair, with family, jb4 23:13 Condition: stable 23:13 Discharge instructions given to patient, Instructed on discharge instructions, follow up and referral plans. medication usage, Demonstrated understanding of instructions, follow-up care, medications, Prescriptions given X 2, 23:14 Patient left the ED. jb4 Signatures: Dispatcher [employer] EDMS Haily Esquivel, PERFORMANCE IMPROVEMENT MANAGER-C PERFORMANCE IMPROVEMENT MANAGER-Lea Fraga, RN RN Nasir Peres, RN RN jb4 Xavier Arora Corrections: (The following items were deleted from the chart) 21:19 21:00 BP 139 / 73; Pulse 81bpm; Resp 16bpm; Pulse Ox 97% RA; jb4 jb4
--- NOTE | 2023-10-04 22:13 | EDPHYS ---
Physician Documentation [facility] Name: Dalia Reyes Age: 67 yrs Sex: Female : 1955 Arrival Date: 10/04/2023 Time: 18:45 Bed 16 Private MD: ED Physician Isaac Herman HPI: 10/03 22:51 This 67 yrs old Female presents to ER via EMS with complaints of Breathing Difficulty. kb 22:51 Patient is a 67-year-old female with a history of COPD who presents for cough, kb congestion and shortness of breath that started about 3 days ago. States she normally is on 3 L of O2 at all times but has been using 4 L due to increased shortness of breath. Reports her family member recently had bronchitis and was coughing around her. Denies fever.. Historical: - Allergies: 18:57 Benadryl; ph 18:57 Lorazepam; ph 18:57 Valium; ph - PMHx: 18:57 CHF; Chronic obstructive lung disease; diabetes mellitus; Emphysema; ph Hypercholesterolemia; Hypertensive disorder; O2 dependent 2L-4L PRN; - PSHx: 18:57 section; Heart Stents; ph - Immunization history:: Adult Immunizations unknown. - Infectious Disease History:: Denies. - Social history:: Smoking status: Patient reports the use of cigarette tobacco products, 5 cigarettes per day. ROS: 19:23 Constitutional: As per HPI kb Exam: 19:22 Constitutional: This is a well developed, well nourished patient who is awake, alert, kb and in no acute distress. Head/Face: Normocephalic, atraumatic. ENT: Moist Mucous membranes Cardiovascular: Regular rate Abdomen/GI: Soft, non-tender. No distention Skin: Warm, dry with normal turgor. Normal color. MS/ Extremity: Pulses equal, no cyanosis. Neurovascular intact. Full, normal range of motion. Neuro: Awake and alert, GCS 15, oriented to person, place, time, and situation. Moves all extremities. Normal gait. 19:22 Respiratory: mild respiratory distress is noted, Respirations: labored breathing, that is mild, Breath sounds: wheezing: expiratory that is moderate, is heard diffusely, 19:22 ECG was reviewed by the Attending Physician. kb Vital Signs: 18:55 BP 133 / 111; Pulse 78; Resp 18; Temp 97.5; Pulse Ox 99% on Nebulizer Mask; Weight ph 61.23 kg; Height 5 ft. 6 in. ; 21:00 BP 139 / 73; Pulse 81; Resp 16; Pulse Ox 97% on 2 lpm NC; jb4 18:55 Body Mass Index 21.79 (61.23 kg, 167.64 cm) ph MDM: 18:55 Patient medically screened. kb 19:23 Data reviewed: vital signs, nurses notes. kb 22:10 Differential diagnosis: Chronic Obstructive Pulmonary Disease pneumonia, pulmonary kb edema. 22:49 Consideration of Admission/Observation Escalation of care including kb admission/observation considered. Admission considered for COPD exacerbation but patient states she prefers to go home. States she is feeling better. Oxygen saturation 97% on 3 L which is her normal home O2. Patient has neb machine at home to do neb treatments. States she will return if needed.. 22:51 Historians other than the Patient: EMS: [facility]. Counseling: I had a detailed kb discussion with the patient and/or guardian regarding the historical points, exam findings, and any diagnostic results supporting the discharge/admit diagnosis, lab results, radiology results, the need for outpatient follow up, a family practitioner, to return to the emergency department if symptoms worsen or persist or if there are any questions or concerns that arise at home. 10/03 19:00 Order name: Blood Culture Adult (2) kb 10/03 19:00 Order name: CBC with Diff; Complete Time: 20:04 kb 10/03 19:00 Order name: CMP; Complete Time: 20:32 kb 10/03 19:00 Order name: Lactate w/ 2H reflex if indic.; Complete Time: 20:32 kb 10/03 19:00 Order name: Protime (+inr); Complete Time: 20:43 kb 10/03 19:00 Order name: Ptt, Activated; Complete Time: 20:43 kb 10/03 19:00 Order name: Flu; Complete Time: 20:29 kb 10/03 19:00 Order name: SARS-COV-2 Antigen Rapid; Complete Time: 21:59 kb 10/03 19:00 Order name: Chest Single View XRAY; Complete Time: 19:50 kb 10/03 19:00 Order name: EKG; Complete Time: 19:01 kb 10/03 19:00 Order name: Accucheck; Complete Time: 20:52 kb 10/03 19:00 Order name: Cardiac monitoring; Complete Time: 19:33 kb 10/03 19:00 Order name: EKG - Nurse/Tech; Complete Time: 19:33 kb 10/03 19:00 Order name: IV Saline Lock - Large Bore; Complete Time: 19:55 kb 10/03 19:00 Order name: Labs collected and sent; Complete Time: 19:55 kb 10/03 19:00 Order name: O2 Per Protocol; Complete Time: 19:55 kb 10/03 19:00 Order name: O2 Sat Monitoring; Complete Time: 19:55 kb 10/03 19:00 Order name: Vital Signs; Complete Time: 19:55 kb EC:22 Rate is 83 beats/min. Rhythm is regular. QRS [place] is Normal. [place] interval is normal at kb 138 msec. QRS interval is normal at 78 msec. QT interval is normal at 455 msec. Administered Medications: 20:12 Drug: MethylPrednisoLONE IVP 125 mg IVP once Route: IVP; Site: left wrist; jb4 22:45 Follow up: Response: No adverse reaction; Marked relief of symptoms jb4 20:12 Drug: Magnesium Sulfate IVPB 1 grams IVPB once over 1 hrs Route: IVPB; Infused Over: 1 jb4 hrs; Site: left wrist; 21:15 Follow up: Response: No adverse reaction; Marked relief of symptoms; IV Status: jb4 Completed infusion; IV Intake: 100ml 22:44 Drug: Albuterol Inhalation 2.5 mg Inhalation once Route: Inhalation; jb4 22:44 Drug: AZITHromycin PO 500 mg PO once Route: PO; jb4 Disposition Summary: 10/04/23 22:12 Discharge Ordered Notes: Location: Home kb Condition: Stable kb Diagnosis - COPD/ Chronic obstructive pulmonary disease with (acute) exacerbation kb Followup: kb - With: Emergency Department - When: As needed - Reason: Worsening of condition Followup: kb - With: Private Physician - When: 2 - 3 days - Reason: Recheck today's complaints, Continuance of care, Re-evaluation by your physician Discharge Instructions: - Discharge Summary Sheet kb - Chronic Obstructive Pulmonary Disease Exacerbation kb Forms: - Medication Reconciliation Form kb - Antibiotic Education kb - Prescription Opioid Use kb - Patient Portal Instructions kb - Leadership Thank You Letter kb Prescriptions: - Prednisone 20 mg Oral Tablet - take 1 tablet ORAL route once daily for 5 days; 5 tablet; Refills: 0, Product kb Selection Permitted - Zithromax 500 mg Oral Tablet - take 1 tablet ORAL route once daily for 5 days; 5 tablet; Refills: 0, Product kb Selection Permitted Signatures: Dispatcher [employer] EDHaily Arellano FNP-C FNP-Ckb Hall, Patricia, RN RN Nasir Peres RN RN jb4 Corrections: (The following items were deleted from the chart) 19:01 19:01 Influenza Screen (A \T\ B)+BA.LAB.BRZ ordered. EDMS EDMS 19:01 19:01 SARS-COV-2 Antigen Rapid+I.LAB.BRZ ordered. EDMS EDMS
[2023-10-04] MEDS ORDERED: AZITHROMYCIN 250 MG TAB ONE (22:40)
[2023-10-04] MEDS ORDERED: ALBUTEROL 2.5 MG/3 ML NEB SOL ONE (22:40)
[2023-10-05 00:16] VITALS: TEMP 97.5
[2023-10-05 00:18] VITALS: BP 139/73; O2SAT 97
--- NOTE | 2023-10-05 12:40 | EKG ---
Test Date: 2023-10-04 Test Time: 19:17:45 Crisis Nurse: KERRY MEASUREMENT RESULTS: Intervals: Rate: 83 NE: 138 QRSD: 78 QT: 388 QTc: 455 [place]: P: 89 NE: 138 QRS: 71 T: 85 INTERPRETIVE STATEMENTS: Normal sinus rhythm Right atrial enlargement Borderline ECG Compared to ECG 05/20/2023 18:29:35 Sinus tachycardia no longer present Electronically Signed On 10-05-23 12:38:17 CDT by Foster Wilhelm
== END 2023-10-04 23:14 | disposition home or self-care (01) ==
LOC: ER 18:45
DX: J44.1 Chronic obstructive pulmonary disease with (acute) exacerbation (principal); I50.9 Heart failure, unspecified; I10 Essential (primary) hypertension; Z99.81 Dependence on supplemental oxygen; F17.210 Nicotine dependence, cigarettes, uncomplicated; Z11.52 Encounter for screening for COVID-19; Z95.818 Presence of other cardiac implants and grafts
CPT/HCPCS: 96365; 93005; 87040 ×2; 85025; 36415; 85610; 83605; 85730; 80053; 87804 ×2; 71045; 96375; 99285; 87811; J3475; J7613; J2919

== ENCOUNTER 2024-04-18 20:39 | Emergency (ER) | payer OTHER ==
[2024-04-18] MEDS ORDERED: IPRATROPIUM BROM 0.5MG/2.5ML ONE (21:03)
[2024-04-18] MEDS ORDERED: ALBUTEROL 2.5 MG/3 ML NEB SOL ONE (21:03)
--- NOTE | 2024-04-18 21:17 | RAD REPORT ---
EXAMINATION: ONE VIEW CHEST XR CLINICAL INDICATION: CONGESTION TECHNIQUE: Frontal chest projection is submitted. Examination is limited by patient positioning and t echnique. COMPARISON: 10/04/2023 FINDINGS: Significant emphysema is present. Blunting of both costophrenic angles likely related to pleural thic kening. The heart is upper limit of normal in size. No displaced fractures identified. IMPRESSION: COPD without an acute process suspected.
[2024-04-18 21:29] LABS: Absolute Basophils 0.1 K/uL (0-0.5); Absolute Eosinophils 0.1 K/uL (0-0.5); Absolute Lymphocytes (CBC) 1.6 K/uL (0.7-4.9); Absolute Monocytes 0.7 K/uL (0.1-1.3); Absolute Neutrophil 5.2 K/uL (1.8-8.0); Basophils % 1.1 % (0-1.3); Eosinophils % 1.3 % (0-4.4); Hematocrit 42.1 % (36.0-45.0); Hemoglobin 13.9 g/dL (12.0-15.0); Lymphocytes % 21.1 % (15.3-44.8); MCH 30.8 pg (27.0-35.0); MCV 93.5 fL (80-100); MPV 7.6 fL (7.6-11.3); Neutrophils % 67.5 % (41.7-73.7); Nucleated Red Blood Cells % 0.1 % (0-0); Platelets 238 thou/uL (152-406); Red Cell Distribution Width 13.4 % (12.1-15.2)
[2024-04-18 21:38] LABS: PT Prothrombin Time 10.6 SECONDS (10-13.0); Protime INR 0.93
[2024-04-18 21:47] LABS: ALT/SGPT 37 U/L (13-56); AST/SGOT 31 U/L (15-37); Albumin 3.1 g/dL (3.4-5.0); Alkaline Phosphatase 67 U/L (45-117); Anion Gap 4.9 mEq/L (5.0-15.0); BUN Blood Urea Nitrogen 21 mg/dL (7-18); Bicarbonate 34 mEq/L (21-32); Bilirubin Total 0.2 mg/dL (0.2-1.0); Creatine Phosphokinase 118 U/L (26-192); Globulin 3.2 g/dL (2.3-3.5); Glomerular Filtration Rate 70 ml/min (=/>90); Glucose Level 235 mg/dL (74-106); Lipase 60 U/L (13-75); Magnesium 2.1 mg/dL (1.6-2.4); NT PRO-BNP 630 pg/mL (<125); Potassium 3.9 mEq/L (3.5-5.1); Protein, Total 6.3 g/dL (6.4-8.2); Sodium Level 139 mEq/L (136-145)
[2024-04-18 21:48] LABS: Bilirubin Direct < 0.2 mg/dL (0-0.2)
[2024-04-18 22:23] LABS: Arterial Blood Carboxyhemoglob 3.1 % (0-1.5); Blood Gas Oxyhemoglobin 89.3 % (94-97); Blood O2 Saturation 93.1 % (92-98.5)
[2024-04-18 22:24] LABS: Blood Gas THB 13.8 g/dl (12-18)
--- NOTE | 2024-04-19 02:24 | ER ---
Nurse's Notes [facility] Name: Dalia Reyes Age: 68 yrs Sex: Female : 1955 Arrival Date: 04/18/2024 Time: 20:39 Bed 8 Private MD: Diagnosis: COPD/ Chronic obstructive pulmonary disease with (acute) exacerbation;Cough Presentation: 04/18 20:42 Chief complaint: Patient states: difficulty breathing x1.5 hours. Coronavirus screen: al5 difficulty breathing. Ebola Screen: No symptoms or risks identified at this time. Initial Sepsis Screen: Does the patient meet any 2 criteria? HR > 90 bpm. No. Patient's initial sepsis screen is negative. Does the patient have a suspected source of infection? No. Patient's initial sepsis screen is negative. Risk Assessment: Do you want to hurt yourself or someone else? Patient reports no desire to harm self or others. Onset of symptoms was April 18, 2024. 20:42 Method Of Arrival: EMS: [facility] al5 20:42 Acuity: CONSTANTINO 3 al5 20:46 Care prior to arrival: Medication(s) given: Albuterol Neb x 1, patient did A\T\A al5 treatment at home prior to ems arrival Atrovent Neb x 1, 125 solu-medrol IV initiated. 20 GA, in the left forearm, Glucose check: 214 Oxygen administered. via a non-rebreather mask. Triage Assessment: 20:45 General: Appears in no apparent distress. comfortable, Behavior is calm, cooperative. al5 Pain: Denies pain. EENT: No signs and/or symptoms were reported regarding the EENT system. Neuro: Level of Consciousness is awake, alert, obeys commands, Oriented to person, place, time, situation. Cardiovascular: Capillary refill < 3 seconds Patient's skin is warm and dry. Respiratory: Reports difficulty breathing initally, feels better now Airway is patent Respiratory effort is even, unlabored, Respiratory pattern is regular, symmetrical, Onset: The symptoms/episode began/occurred today, the patient has mild shortness of breath. GI: No signs and/or symptoms were reported involving the gastrointestinal system. : No signs and/or symptoms were reported regarding the genitourinary system. Derm: Skin is intact, Skin is pink, warm \T\ dry. normal. Musculoskeletal: No signs and/or symptoms reported regarding the musculoskeletal system. Historical: - Allergies: 20:44 Benadryl; al5 20:44 Lorazepam; al5 20:44 Valium; al5 - PMHx: 20:44 CHF; Chronic obstructive lung disease; diabetes mellitus; Emphysema; al5 Hypercholesterolemia; Hypertensive disorder; O2 dependent 2L-4L PRN; - PSHx: 20:44 section; Heart Stents; al5 - Immunization history:: Adult Immunizations not up to date. - Infectious Disease History:: Denies. - Social history:: Smoking status: Patient reports the use of cigarette tobacco products, smokes one pack cigarettes per day. - Family history:: not pertinent. Screenin:[address] [facility] ED Fall Risk Assessment (Adult) History of falling in the last 3 months, al5 including since admission No falls in past 3 months (0 pts) Confusion or Disorientation No (0 pts) Intoxicated or Sedated No (0 pts) Impaired Gait Yes (1 pt) Mobility Assist Device Used No (0 pt) Altered Elimination No (0 pt) Score/Fall Risk Level 0 - 2 = Low Risk Oriented to surroundings, Maintained a safe environment, Hourly rounding (assess needs \T\ fall precautionary measures) done. Abuse screen: Denies threats or abuse. Denies injuries from another. Nutritional screening: No deficits noted. Tuberculosis screening: No symptoms or risk factors identified. Assessment: 20:47 Reassessment: see triage assessment. Cardiovascular: Rhythm is sinus tachycardia. al5 Respiratory: Airway is patent Respiratory effort is even, unlabored, Respiratory pattern is regular, symmetrical. Respiratory: Breath sounds with wheezes bilaterally. 21:50 Reassessment: Patient appears in no apparent distress at this time. No changes from al5 previously documented assessment. Patient and/or family updated on plan of care and expected duration. Pain level reassessed. Patient is alert, oriented x 3, equal unlabored respirations, skin warm/dry/pink. 23:13 Reassessment: Patient appears in no apparent distress at this time. No changes from al5 previously documented assessment. Patient and/or family updated on plan of care and expected duration. Pain level reassessed. Patient is alert, oriented x 3, equal unlabored respirations, skin warm/dry/pink. /12 00:34 Reassessment: Patient appears in no apparent distress at this time. No changes from al5 previously documented assessment. Patient and/or family updated on plan of care and expected duration. Pain level reassessed. Patient is alert, oriented x 3, equal unlabored respirations, skin warm/dry/pink. Patient states feeling better. Patient states symptoms have improved. 01:59 Reassessment: Patient appears in no apparent distress at this time. No changes from al5 previously documented assessment. Patient and/or family updated on plan of care and expected duration. Pain level reassessed. Patient is alert, oriented x 3, equal unlabored respirations, skin warm/dry/pink. Vital Signs: 04/18 20:42 BP 113 / 77; Pulse 106; Resp 19; Temp 98; Pulse Ox 100% on 15 lpm Non-rebreather mask; al5 Weight 61.23 kg; Height 5 ft. 6 in. ; Pain 0/10; 21:30 BP 94 / 57; Pulse 112; Resp 19; Pulse Ox 94% ; dd2 22:00 BP 99 / 59; Pulse 106; Resp 18; Pulse Ox 93% ; dd2 22:30 BP 96 / 71; Pulse 99; Resp 19; Pulse Ox 94% ; dd2 04/19 00:49 BP 110 / 69; Pulse 94; Resp 18; Pulse Ox 95% on 4 lpm NC; dd2 02:01 BP 109 / 72; Pulse 95; Resp 17; Pulse Ox 96% on 4 lpm NC; dd2 04/18 20:42 Body Mass Index 21.79 (61.23 kg, 167.64 cm) al5 04/18 20:42 Pain Scale: Adult al5 [place] Coma Score: 22:01 Eye Response: spontaneous(4). Motor Response: obeys commands(6). Verbal Response: sp4 oriented(5). Total: 15. ED Course: 04/18 20:42 Patient arrived in ED. al5 20:44 Triage completed. al5 20:47 Arm band placed on left wrist. Patient placed in the treatment room, in view of staff al5 members, on oxygen, on pulse oximetry. 20:49 Patient has correct armband on for positive identification. Bed in low position. Call al5 light in reach. Side rails up X2. Provided Education on: plan of care. 20:50 No provider procedures requiring assistance completed. Maintain EMS IV. Dressing al5 intact. Good blood return noted. Site clean \T\ dry. Gauge \T\ site: 20G L forearm. Flushed with 10 mL NS. 20:54 Elier Chisholm MD is Attending Physician. sp4 20:59 Gracy Do, RN is Primary Nurse. al5 21:11 XRAY CXR (1 view) In Process Unspecified. EDMS 04/19 02:45 IV discontinued, intact, bleeding controlled, No redness/swelling at site. Pressure al5 dressing applied. Administered Medications: 04/18 21:06 Drug: Ipratropium Inhalation Aerosol 0.5 mg Inhalation once Route: Inhalation; al5 04/19 00:50 Follow up: Response: No adverse reaction; Wheezing diminished al5 04/18 21:07 Drug: Albuterol Inhalation 2.5 mg Inhalation once Route: Inhalation; al5 04/19 00:50 Follow up: Response: No adverse reaction; Wheezing diminished al5 Medication: 04/18 20:49 VIS not applicable for this client. al5 Outcome: 04/19 02:24 Discharge ordered by . sp4 02:45 Discharged to home ambulatory, with family, al5 02:45 Condition: good 02:45 Discharge instructions given to patient, Instructed on discharge instructions, follow up and referral plans. medication usage, Demonstrated understanding of instructions, follow-up care, medications, Prescriptions given X 4, 02:46 Patient left the ED. al5 Signatures: Dispatcher [employer] EDVT Elier Chisholm MD MD sp4 Gracy Do RN RN al5 ANTOINE YANCEY RN RN dd2 Corrections: (The following items were deleted from the chart) 00:46 00:34 Reassessment: Patient appears in no apparent distress at this time. No changes al5 from previously documented assessment. Patient and/or family updated on plan of care and expected duration. Pain level reassessed. Patient is alert, oriented x 3, equal unlabored respirations, skin warm/dry/pink. al5
--- NOTE | 2024-04-19 02:24 | EDPHYS ---
Physician Documentation [facility] Name: Dalia Reyes Age: 68 yrs Sex: Female : 1955 Arrival Date: 04/18/2024 Time: 20:39 Bed 8 Private MD: ED Physician Elier Chisholm HPI: 04/18 20:54 This 68 yrs old Female presents to ER via EMS with complaints of Breathing sp4 Difficulty. 04/19 22:01 68-year-old female presents with complaints of shortness of breath. History of COPD. sp4 Complaint of wheezing. Historical: - Allergies: 04/18 20:44 Benadryl; al5 20:44 Lorazepam; al5 20:44 Valium; al5 - PMHx: 20:44 CHF; Chronic obstructive lung disease; diabetes mellitus; Emphysema; al5 Hypercholesterolemia; Hypertensive disorder; O2 dependent 2L-4L PRN; - PSHx: 20:44 section; Heart Stents; al5 - Immunization history:: Adult Immunizations not up to date. - Infectious Disease History:: Denies. - Social history:: Smoking status: Patient reports the use of cigarette tobacco products, smokes one pack cigarettes per day. - Family history:: not pertinent. ROS: 04/19 22:01 Constitutional: Negative for fever, chills, and weight loss, positive dyspnea and sp4 wheezing. All other systems are negative, Exam: 22:01 Constitutional: Chronically ill-appearing female, stigmata of COPD, oxygen dependent, sp4 multiple subcutaneous hemorrhages presumably from chronic anticoagulation. Head/Face: Normocephalic, atraumatic. Eyes: Pupils equal round and reactive to light, extra-ocular motions intact. Lids and lashes normal. Conjunctiva and sclera are not injected. Cornea within normal limits. Periorbital areas with no swelling, redness, or edema. ENT: Nares patent. No nasal discharge, no septal abnormalities noted. Tympanic membranes are normal and external auditory canals are clear. Oropharynx with no redness, swelling, or masses, exudates, or evidence of obstruction, uvula midline. Mucous membranes moist. Neck: Trachea midline, no thyromegaly or masses palpated, and no cervical lymphadenopathy. Supple, full range of motion without nuchal rigidity, or vertebral point tenderness. Chest/axilla: Normal chest wall appearance and motion. Nontender with no deformity. No lesions are appreciated. Cardiovascular: Regular rate and rhythm with a normal S1 and S2. No gallops, murmurs, or rubs. Normal PMI, no JVD. No pulse deficits. Respiratory: Lungs have equal breath sounds bilaterally, bilateral expiratory wheezes that are moderate in all lung mcclellan. Abdomen/GI: Soft, with normal bowel sounds. No distension or tympany. No guarding or rebound. No evidence of tenderness throughout. Back: No spinal tenderness. No costovertebral tenderness. Skin: Warm, dry with normal turgor. Normal color with no rashes, no lesions, and no evidence of cellulitis. MS/ Extremity: Pulses equal, no cyanosis. Neurovascular intact. Full, normal range of motion. Neuro: Awake and alert, GCS 15, oriented to person, place, time, and situation. Cranial nerves II-XII grossly intact. Motor strength 5/5 in all extremities. Sensory grossly intact. Psych: Awake, alert, with orientation to person, place and time. Behavior, mood, and affect are within normal limits 22:01 ECG was reviewed by the Attending Physician. EKG 2044 sinus tachycardia rate 104 otherwise normal Vital Signs: 04/18 20:42 BP 113 / 77; Pulse 106; Resp 19; Temp 98; Pulse Ox 100% on 15 lpm Non-rebreather mask; al5 Weight 61.23 kg; Height 5 ft. 6 in. ; Pain 0/10; 21:30 BP 94 / 57; Pulse 112; Resp 19; Pulse Ox 94% ; dd2 22:00 BP 99 / 59; Pulse 106; Resp 18; Pulse Ox 93% ; dd2 22:30 BP 96 / 71; Pulse 99; Resp 19; Pulse Ox 94% ; dd2 04/19 00:49 BP 110 / 69; Pulse 94; Resp 18; Pulse Ox 95% on 4 lpm NC; dd2 02:01 BP 109 / 72; Pulse 95; Resp 17; Pulse Ox 96% on 4 lpm NC; dd2 04/18 20:42 Body Mass Index 21.79 (61.23 kg, 167.64 cm) al5 04/18 20:42 Pain Scale: Adult al5 [place] Coma Score: 22:01 Eye Response: spontaneous(4). Motor Response: obeys commands(6). Verbal Response: sp4 oriented(5). Total: 15. MDM: 04/18 20:44 Differential diagnosis: Anemia Anxiety Reaction asthma, Bronchitis CHF exacerbation, sp4 Chronic Obstructive Pulmonary Disease pneumonia. Data reviewed: vital signs, nurses notes, EMS record, lab test result(s), EKG, radiologic studies, plain films. Consideration of Admission/Observation Escalation of care including admission/observation considered. ED course: Patient has improved after management - Patient stable for discharge home. 20:55 Medical Screening Exam initiated 4 04/19 02:18 ED course: EXAMINATION: ONE VIEW CHEST XR CLINICAL INDICATION: CONGESTION TECHNIQUE: sp4 Frontal chest projection is submitted. Examination is limited by patient positioning and technique. COMPARISON: 10/04/2023 FINDINGS: Significant emphysema is present. Blunting of both costophrenic angles likely related to pleural thickening. The heart is upper limit of normal in size. No displaced fractures identified. IMPRESSION: COPD without an acute process suspected.. 04/18 20:55 Order name: BMP; Complete Time: 02:16 04/18 20:55 Order name: Blood Culture Adult (2) 4 04/18 20:55 Order name: CBC with Diff; Complete Time: 02:16 4 04/18 20:55 Order name: CPK; Complete Time: 02:16 4 04/18 20:55 Order name: Hepatic Function; Complete Time: 02:16 04/18 20:55 Order name: Lipase; Complete Time: 02:16 4 04/18 20:55 Order name: Magnesium; Complete Time: 02:16 4 04/18 20:55 Order name: NT PRO-BNP; Complete Time: 02:16 4 04/18 20:55 Order name: PT-INR; Complete Time: 02:16 04/18 20:55 Order name: Ptt, Activated; Complete Time: 02:16 4 04/18 20:55 Order name: Troponin HS; Complete Time: 02:16 4 04/18 20:59 Order name: Lactate w/ 2H reflex if indic.; Complete Time: 02:16 al5 04/18 21:39 Order name: ABG; Complete Time: 02:16 4 04/18 20:55 Order name: XRAY CXR (1 view); Complete Time: 02:16 04/18 20:55 Order name: EKG; Complete Time: 20:55 sp4 04/18 20:55 Order name: Cardiac monitoring; Complete Time: 21: sp4 04/18 20:55 Order name: EKG - Nurse/Tech; Complete Time: 21: sp4 04/18 20:55 Order name: IV Saline Lock; Complete Time: 21: sp4 04/18 20:55 Order name: Labs collected and sent; Complete Time: : sp4 04/18 20:55 Order name: O2 Per Protocol; Complete Time: 21: sp4 04/18 20:55 Order name: O2 Sat Monitoring; Complete Time: : sp4 EC/11 20:44 Rate is 104 beats/min. Rhythm is regular, Sinus tachycardia. QRS [place] is Normal. [place] sp4 interval is normal. QRS interval is normal. QT interval is normal. No Q waves. T waves are Normal. No ST changes noted. Clinical impression: No evidence of ischemia. Interpreted by me. Reviewed by me. Administered Medications: 21:06 Drug: Ipratropium Inhalation Aerosol 0.5 mg Inhalation once Route: Inhalation; al5 04/19 00:50 Follow up: Response: No adverse reaction; Wheezing diminished al5 04/18 21:07 Drug: Albuterol Inhalation 2.5 mg Inhalation once Route: Inhalation; al5 04/19 00:50 Follow up: Response: No adverse reaction; Wheezing diminished al5 Disposition Summary: 04/19/24 02:24 Discharge Ordered Notes: Location: Home sp4 Problem: new sp4 Symptoms: have improved sp4 Condition: Stable sp4 Diagnosis - COPD/ Chronic obstructive pulmonary disease with (acute) exacerbation sp4 - Cough sp4 Followup: sp4 - With: Private Physician - When: 7 - 10 days - Reason: Recheck today's complaints Discharge Instructions: - Discharge Summary Sheet sp4 - Chronic Obstructive Pulmonary Disease Exacerbation sp4 Forms: - Patient Portal Instructions sp4 Prescriptions: - dextromethorphan-guaifenesin 20-400 mg Oral tablet - take 1 tablet ORAL route every 6 hours PRN cough; 60 tablet; Refills: 0, sp4 Product Selection Permitted - Albuterol Sulfate 2.5 mg /3 mL (0.083 %) Inhalation Solution for Nebulization - inhale 1 unit NEBULIZATION route every 4 hours As needed PRN cough; 50 unit; sp4 Refills: 0, Product Selection Permitted - Zithromax Z-Jhoan 250 mg Oral Tablet - take 1 tablet ORAL route as directed for 5 days Day 1 - take two (2) tablets sp4 one time. Day 2, 3, 4 , 5 take one (1) tablet once daily.; 6 tablet; Refills: 0, Product Selection Permitted - Prednisone 20 mg Oral Tablet - take 2 tablets ORAL route once daily for 5 days; 10 tablet; Refills: 0, Product sp4 Selection Permitted Signatures: Dispatcher [employer] Elier Orosco MD MD sp4 Gracy Do RN RN al5
[2024-04-19 02:52] VITALS: TEMP 98
[2024-04-19 02:57] VITALS: BP 109/72; O2SAT 96
--- NOTE | 2024-04-21 14:50 | EKG ---
Test Date: 2024-04-18 Test Time: 20:44:30 Sports Lawyer: RAHEEM MEASUREMENT RESULTS: Intervals: Rate: 103 SC: 140 QRSD: 84 QT: 360 QTc: 471 [place]: P: SC: 140 QRS: 125 T: 148 INTERPRETIVE STATEMENTS: Sinus tachycardia Nonspecific T wave abnormality Abnormal ECG Compared to ECG 10/04/2023 19:17:45 T-wave abnormality now present Sinus rhythm no longer present Atrial abnormality no longer present Electronically Signed On 04-21-24 14:43:18 CDT by Foster Wilhelm
== END 2024-04-19 02:46 | disposition home or self-care (01) ==
LOC: ER 20:39
DX: J44.1 Chronic obstructive pulmonary disease with (acute) exacerbation (principal); I50.9 Heart failure, unspecified; F17.210 Nicotine dependence, cigarettes, uncomplicated; Z99.81 Dependence on supplemental oxygen; Z95.818 Presence of other cardiac implants and grafts
CPT/HCPCS: 93005; 87040 ×2; 85025; 80048; 36415; 83735; 82550; 85610; 80076; 83605; 85730; 84484; 83690; 83880; 71045; 82805; 36600; J7613; J7644; 99285

== ENCOUNTER 2024-04-25 05:54 | Inpatient (IN) | payer OTHER ==
[2024-04-25] MEDS ORDERED: CEFTRIAXONE 1000 MG/VIAL ONE (06:08)
[2024-04-25] MEDS ORDERED: AZITHROMYCIN 500 MG INJ IVPB ONE (06:09)
[2024-04-25] MEDS ORDERED: NA CHLORIDE 0.9% 250 ML ONE (06:09)
[2024-04-25 07:14] LABS: Absolute Lymphocytes (CBC) 0.2 K/uL (0.7-4.9); Absolute Monocytes 0.5 K/uL (0.1-1.3); Absolute Neutrophil 8.5 K/uL (1.8-8.0); Basophils % 0.1 % (0-1.3); Eosinophils % 0.1 % (0-4.4); Hematocrit 41.7 % (36.0-45.0); Hemoglobin 14.3 g/dL (12.0-15.0); Lymphocytes % 2.6 % (15.3-44.8); MCH 31.6 pg (27.0-35.0); MCHC 34.2 g/dL (32.0-36.0); MCV 92.2 fL (80-100); MPV 7.9 fL (7.6-11.3); Monocytes % 5.1 % (3.3-12.3); Neutrophils % 92.1 % (41.7-73.7); Platelets 186 thou/uL (152-406); RBC Red Blood Cell Count 4.52 M/uL (3.86-4.86); Red Cell Distribution Width 13.4 % (12.1-15.2)
[2024-04-25 07:25] LABS: PT Prothrombin Time 12.1 SECONDS (10-13.0); Protime INR 1.06
--- NOTE | 2024-04-25 07:30 | RAD REPORT ---
Procedure: Chest Single View HISTORY: Cough COMPARISON: April 18, 2024 FINDINGS: The lungs appear clear of acute infiltrate. Lungs are moderately hyperaerated. No significant pleural effusion noted. The heart is normal size. IMPRESSION: COPD without visualization of an acute abnormality
[2024-04-25] MEDS ORDERED: IPRATROPIUM BROM 0.5MG/2.5ML ONE ×2 (07:31→13:25)
[2024-04-25] MEDS ORDERED: ALBUTEROL 2.5 MG/3 ML NEB SOL ONE ×2 (07:31→13:25)
[2024-04-25 07:37] LABS: Albumin 3.3 g/dL (3.4-5.0); Albumin/Globulin Ratio 0.9 (1.1-1.8); Anion Gap 7.7 mEq/L (5.0-15.0); Bilirubin Total 0.3 mg/dL (0.2-1.0); Globulin 3.7 g/dL (2.3-3.5); Potassium 3.7 mEq/L (3.5-5.1)
--- NOTE | 2024-04-25 07:40 | EDPHYS ---
Physician Documentation [facility] Name: Miles Reyes Age: 68 yrs Sex: Female : 1955 Arrival Date: 04/25/2024 Time: 05:54 Bed 4 Private MD: ED Physician Gelacio Leung HPI: 04/25 06:35 This 68 yrs old Female presents to ER via EMS with complaints of sob, copd. ec2 06:35 Patient with history of COPD arrives today for progressive shortness of breath. Patient ec2 reports that she has been using her inhalers at home with minimal improvement in symptoms. EMS reports needed given the patient Solu-Medrol as well as DuoNeb with some improvement in her respiratory status.. Historical: - Allergies: 06:29 Benadryl; vc1 06:29 Lorazepam; vc1 06:29 Valium; vc1 - Home Meds: 06:29 Unable to obtain [Active]; vc1 - PMHx: 06:29 CHF; Chronic obstructive lung disease; diabetes mellitus; Emphysema; vc1 Hypercholesterolemia; Hypertensive disorder; O2 dependent 2L-4L PRN; - PSHx: 06:29 section; Heart Stents; vc1 - Immunization history:: Adult Immunizations up to date. - Infectious Disease History:: Denies. - Social history:: Smoking status: Patient/guardian denies using tobacco. ROS: 06:35 Constitutional: as per hpi ec2 Exam: 06:35 Constitutional: GEN: NAD Head: atraumatic Eyes: EOMI Ears: External ears are ec2 normal. CV: Tachycardia LUNGS: Tachypnea, scattered wheezes ABD: non-distended SKIN: no evidence of rashes MSK: no evidence of trauma Vital Signs: 06:00 BP 132 / 53; Pulse 113; Resp 20; Temp 97.6; Pulse Ox 93% on 2 lpm NC; Weight 63.5 kg; vc1 Height 5 ft. 3 in. ; Pain 0/10; 06:58 BP 129 / 51; Pulse 111; ec2 07:40 BP 99 / 61; Pulse 104; Resp 24 S; Pulse Ox 100% on Nebulizer Mask; iw 08:50 BP 98 / 53; Pulse 115; Resp 23; Pulse Ox 96% on 3 lpm NC; ld1 11:30 BP 111 / 64; Pulse 109; cm10 11:41 BP 90 / 57; Pulse 105; Resp 22; Pulse Ox 92% on 3 lpm NC; cm10 12:00 BP 107 / 88; Pulse 109; Resp 22; Pulse Ox 90% on 3 lpm NC; cm10 06:00 Body Mass Index 24.80 (63.50 kg, 160.02 cm) vc1 06:00 Pain Scale: Adult vc1 MDM: 06:01 Medical Screening Exam initiated ec2 06:36 Data reviewed: vital signs, nurses notes. ED course: Patient arrives today for ec2 shortness of breath. Examination yields tachycardic and slightly tachypneic individual with scattered wheezes. Will obtain a septic workup, empirically treat w/ abx and reassess. . 06:37 ED course: EKG obtained, independently reviewed and interpreted by me, shows sinus ec2 tachycardia, rate 113, no acute ST segment elevations, intervals are nonactionable.. 07:34 ED course: CBC is reassuring. Lactic acid within normal ranges. Chest x-ray shows COPD ec2 without acute process.. 07:38 ED course: Labs are non-actionable. will admit for sepsis, copd exacerbation, discussed ec2 w/ hospitalist. 04/25 06:02 Order name: Blood Culture Adult (2) ec2 04/25 06:02 Order name: CBC with Diff ec2 04/25 06:02 Order name: CMP; Complete Time: 07:38 ec2 04/25 06:02 Order name: Lactate w/ 2H reflex if indic.; Complete Time: 07:12 ec2 04/25 06:02 Order name: Protime (+inr); Complete Time: 07:33 ec2 04/25 06:02 Order name: Ptt, Activated; Complete Time: 07:33 ec2 04/25 06:28 Order name: Glucose, Ancillary Testing; Complete Time: 07:12 EDMS 04/25 08:32 Order name: Magnesium EDMS 04/25 08:32 Order name: Urinalysis w/ reflexes EDMS 04/25 08:32 Order name: Basic Metabolic Panel EDMS 04/25 08:32 Order name: Basic Metabolic Panel EDMS 04/25 08:32 Order name: CBC with Automated Diff EDMS 04/25 08:32 Order name: CBC with Automated Diff EDMS 04/25 08:32 Order name: Phosphorus EDMS 03/18 08:32 Order name: Phosphorus EDMS 04/25 08:39 Order name: CBC Smear Scan EDMS 04/25 11:37 Order name: Glucose, Ancillary Testing EDMS 04/25 15:01 Order name: Glucose, Ancillary Testing EDMS 04/25 06:02 Order name: Chest Single View XRAY; Complete Time: 07:33 ec2 04/25 06:02 Order name: Accucheck; Complete Time: 06:20 ec2 04/25 06:02 Order name: Cardiac monitoring; Complete Time: 06:13 ec2 04/25 06:02 Order name: EKG - Nurse/Tech; Complete Time: 06:13 ec2 04/25 06:02 Order name: IV Saline Lock - Large Bore; Complete Time: 06:34 ec2 04/25 06:02 Order name: Labs collected and sent; Complete Time: 06:34 ec2 04/25 06:02 Order name: O2 Per Protocol; Complete Time: 06:13 ec2 04/25 06:02 Order name: O2 Sat Monitoring; Complete Time: 06:13 ec2 04/25 06:02 Order name: Vital Signs; Complete Time: 06:34 ec2 Administered Medications: 06:25 Drug: Rocephin IV 1 grams IV at calculated rate once; Given slow IV push per pharmacy vc1 instructions Route: IV; Rate: calculated rate; Site: left forearm; 07:00 Follow up: IV Status: Completed infusion iw 06:34 Drug: AZITHromycin IVPB 500 mg IVPB once over 1 hrs; (mix in 250 mL NS) Route: IVPB; vc1 Infused Over: 1 hrs; Site: left forearm; 07:35 Follow up: IV Status: Completed infusion iw 07:38 Drug: DuoNeb Nebulize (3:1) (2.5 mg - 0.5 mg) 3 ml Nebulizer once Route: Nebulizer; iw 09:55 Follow up: Response: No adverse reaction; Marked relief of symptoms iw Disposition Summary: 04/25/24 07:39 Hospitalization Ordered Notes: Hospitalization Status: Inpatient Admission ec2 Provider: Brian Riley ec2 Condition: Stable ec2 Problem: an acute exacerbation ec2 Symptoms: have improved ec2 Bed/Room Type: Standard ec2 Location: Telemetry/MedSurg (Inpatient)(03/18/25 14:19) bd Room Assignment: 214(04/25/24 14:19) bd Diagnosis - COPD/ Chronic obstructive pulmonary disease with (acute) exacerbation ec2 - Sepsis, unspecified organism ec2 Forms: - Medication Reconciliation Form ec2 - SBAR form ec2 - Leadership Thank You Letter ec2 Critical care time excluding procedures: 07:37 Critical care time: Bedside Care: 30 minutes, Consultation: 5 minutes. Total time: 35 ec2 minutes Signatures: Dispatcher [employer] EDMS Sherie Harrington Irene, RN RN iw Rama Tesfaye RN RN vc1 Viktoriya Cornell RN RN kb3 Gelacio Leung MD MD ec2 Corrections: (The following items were deleted from the chart) 06:02 06:02 BLOOD CULTURE*+BA.LAB.BRZ ordered. EDMS EDMS 06:02 06:02 CBC+H.LAB.BRZ ordered. EDMS EDMS 06:02 06:02 COMPREHENSIVE METABOLIC PANEL+C.LAB.BRZ ordered. EDMS EDMS 06:02 06:02 LACTATE+C.LAB.BRZ ordered. EDMS EDMS 06:02 06:02 PROTIME (+INR)+COAG.LAB.BRZ ordered. EDMS EDMS 06:02 06:02 PTT, ACTIVATED+COAG.LAB.BRZ ordered. EDMS EDMS 06:02 06:02 Chest Single View+RAD.RAD.BRZ ordered. EDMS EDMS 10:46 07:39 Telemetry/MedSurg (Inpatient) ec2 kb3 10:46 07:39 ec2 kb3 14:19 10:46 BR ER HOLD kb3 bd 14:19 10:46 ERHOLD- kb3 bd
--- NOTE | 2024-04-25 07:40 | ER ---
Nurse's Notes [facility] Name: Miles Reyes Age: 68 yrs Sex: Female : 1955 Arrival Date: 04/25/2024 Time: 05:54 Bed 4 Private MD: Diagnosis: COPD/ Chronic obstructive pulmonary disease with (acute) exacerbation;Sepsis, unspecified organism Presentation: 04/25 06:00 Chief complaint: EMS states: pt is having an episode of COPD exacerbation that began vc1 earlier tonight. 06:00 Coronavirus screen: At this time, the client does not indicate any symptoms associated vc1 with coronavirus-19. Ebola Screen: Patient negative for fever greater than or equal to 101.5 degrees Fahrenheit, and additional compatible Ebola Virus Disease symptoms Patient denies exposure to infectious person. Patient denies travel to an Ebola-affected area in the 21 days before illness onset. No symptoms or risks identified at this time. Initial Sepsis Screen: Does the patient meet any 2 criteria? RR > 20 per min. HR > 90 bpm. Yes Does the patient have a suspected source of infection? No. Patient's initial sepsis screen is negative. Risk Assessment: Do you want to hurt yourself or someone else? Patient reports no desire to harm self or others. Onset of symptoms was April 25, 2024 at 00:00. 06:00 Method Of Arrival: EMS: [facility] vc1 06:00 Acuity: CONSTANTINO 3 vc1 06:00 Care prior to arrival: Medication(s) given: duo neb treatments, albuterol treatment, vc1 Solu-Medrol 125 mg and NS 1000 IV initiated. 22 GA, in the left forearm, Med neb given. Oxygen administered. via nasal cannula. Triage Assessment: 06:00 General: Appears in no apparent distress. comfortable, Behavior is calm, cooperative, vc1 appropriate for age. 06:00 Pain: Denies pain. EENT: No deficits noted. No signs and/or symptoms were reported vc1 regarding the EENT system. Neuro: No deficits noted. Level of Consciousness is awake, alert, obeys commands, Oriented to person, place, time, situation, Appropriate for age. Cardiovascular: Reports shortness of breath, Denies chest pain, Capillary refill is > 3 seconds in bilateral fingers Patient's skin is warm and dry. Respiratory: Airway is patent Trachea midline Respiratory effort is even, labored, Respiratory pattern is regular, symmetrical, Breath sounds with wheezes bilaterally. GI: No signs and/or symptoms were reported involving the gastrointestinal system. : No signs and/or symptoms were reported regarding the genitourinary system. Derm: No signs and/or symptoms reported regarding the dermatologic system. Musculoskeletal: No signs and/or symptoms reported regarding the musculoskeletal system. Historical: - Allergies: 06:29 Benadryl; vc1 06:29 Lorazepam; vc1 06:29 Valium; vc1 - Home Meds: :29 Unable to obtain [Active]; vc1 - PMHx: :29 CHF; Chronic obstructive lung disease; diabetes mellitus; Emphysema; vc1 Hypercholesterolemia; Hypertensive disorder; O2 dependent 2L-4L PRN; - PSHx: :29 section; Heart Stents; vc1 - Immunization history:: Adult Immunizations up to date. - Infectious Disease History:: Denies. - Social history:: Smoking status: Patient/guardian denies using tobacco. Screenin:40 [facility] ED Fall Risk Assessment (Adult) History of falling in the last 3 months, iw including since admission No falls in past 3 months (0 pts) Confusion or Disorientation No (0 pts) Intoxicated or Sedated No (0 pts) Impaired Gait No (0 pts) Mobility Assist Device Used No (0 pt) Altered Elimination No (0 pt) Score/Fall Risk Level 0 - 2 = Low Risk Oriented to surroundings, Maintained a safe environment. Abuse screen: Denies threats or abuse. Denies injuries from another. Nutritional screening: No deficits noted. Tuberculosis screening: No symptoms or risk factors identified. Assessment: 06:32 Reassessment: see triage assessment. vc1 07:39 General: Appears in no apparent distress. Behavior is cooperative. Pain: Complains of iw pain in back. Neuro: Level of Consciousness is awake, alert, obeys commands, Oriented to person, place, time, situation, Moves all extremities. Cardiovascular: Patient's skin is warm and dry. Respiratory: Reports shortness of breath at rest on exertion Respiratory effort is even, labored. GI: Abdomen is non-distended. Derm: Skin is intact, is fragile. Musculoskeletal: Range of motion: intact in all extremities. 09:00 Reassessment: pt requesting something to eat, two sandwiches given. iw 09:54 Reassessment: Patient appears in no apparent distress at this time. Patient and/or iw family updated on plan of care and expected duration. Pain level reassessed. warm blankets given. Vital Signs: 06:00 BP 132 / 53; Pulse 113; Resp 20; Temp 97.6; Pulse Ox 93% on 2 lpm NC; Weight 63.5 kg; vc1 Height 5 ft. 3 in. ; Pain 0/10; 06:58 BP 129 / 51; Pulse 111; ec2 07:40 BP 99 / 61; Pulse 104; Resp 24 S; Pulse Ox 100% on Nebulizer Mask; iw 08:50 BP 98 / 53; Pulse 115; Resp 23; Pulse Ox 96% on 3 lpm NC; ld1 11:30 BP 111 / 64; Pulse 109; cm10 11:41 BP 90 / 57; Pulse 105; Resp 22; Pulse Ox 92% on 3 lpm NC; cm10 12:00 BP 107 / 88; Pulse 109; Resp 22; Pulse Ox 90% on 3 lpm NC; cm10 06:00 Body Mass Index 24.80 (63.50 kg, 160.02 cm) vc1 06:00 Pain Scale: Adult vc1 ED Course: 05:57 Patient arrived in ED. ec2 06:00 Arm band placed on left wrist. vc1 06:01 Gelacio Leung MD is Attending Physician. ec2 06:01 Maintain EMS IV. Dressing intact. Site clean \T\ dry. Gauge \T\ site: 22g. Flushed with 10 vc 1 mL NS. 06:01 No provider procedures requiring assistance completed. Initial lab(s) drawn, by me, vc1 sent to lab. First set of blood cultures drawn by me, Second set of blood cultures drawn. 06:14 Rama Tesfaye RN is Primary Nurse. vc1 06:20 Second set of blood cultures drawn by me. vc1 06:21 EKG done, by ED staff. vk 06:29 Triage completed. vc1 06:36 Chest Single View XRAY In Process Unspecified. EDMS 07:39 Brian Riley MD is Hospitalizing Provider. ec2 07:41 Primary Nurse role handed off by Rama Tesfaye, SIDDHARTH iw 07:41 Phoebe Hong RN is Primary Nurse. iw 07:41 Patient has correct armband on for positive identification. Provided Education on: neb iw . Client placed on continuous cardiac and pulse oximetry monitoring. NIBP monitoring applied. laboratory monitor on. 12:10 Patient admitted, IV remains in place. cm10 Administered Medications: 06:25 Drug: Rocephin IV 1 grams IV at calculated rate once; Given slow IV push per pharmacy vc1 instructions Route: IV; Rate: calculated rate; Site: left forearm; 07:00 Follow up: IV Status: Completed infusion iw 06:34 Drug: AZITHromycin IVPB 500 mg IVPB once over 1 hrs; (mix in 250 mL NS) Route: IVPB; vc1 Infused Over: 1 hrs; Site: left forearm; 07:35 Follow up: IV Status: Completed infusion iw 07:38 Drug: DuoNeb Nebulize (3:1) (2.5 mg - 0.5 mg) 3 ml Nebulizer once Route: Nebulizer; iw 09:55 Follow up: Response: No adverse reaction; Marked relief of symptoms iw Medication: 12:10 VIS not applicable for this client. cm10 Outcome: 07:39 Decision to Hospitalize by Provider. ec2 12:10 Admitted to ER Hold. Please see [facility] for further documentation. cm10 12:10 Condition: stable 12:10 Instructed on the need for admit, 15:13 Patient left the ED. ld1 Signatures: Dispatcher [employer] Phoebe Ivory RN RN iw Elizabeth Jacobs RN RN ld1 Rama Tesfaye RN RN 1 Shelli Saavedra RN RN cm10 Gelacio Lueng MD MD ec2 Evelin Emerson
[2024-04-25] MEDS ORDERED: ACETAMINOPHEN 325 MG TABLET PO PRN (08:27)
[2024-04-25] MEDS ORDERED: ONDANSETRON 4 MG/2 ML VIAL IV PRN (08:30)
[2024-04-25] MEDS ORDERED: GLUCAGON 1 MG/VIAL IM PRN ×2 (08:34→21:46)
[2024-04-25] MEDS ORDERED: D10W 125 ML IV PRN (08:34)
--- NOTE | 2024-04-25 08:35 | P.HP ---
Certification for Inpatient Patient admitted to: Inpatient With expected LOS: >2 Midnights Patient will require the following post-hospital care: None Practitioner: I am a practitioner with admitting privileges, knowledge of patient current condition, hospital course, and medical plan of care. Services: Services provided to patient in accordance with Admission requirements found in Title 42 Section 412.3 of the Code of Federal Regulations Patient History Date of Service: 04/25/24 Reason for admission: SOB History of Present Illness: Patient is a 68-year-old female with a past medical history significant for COPD, CHF, hypertension, chronic respiratory failure, nicotine dependence who presents with complaint of shortness of breath that has been ongoing for a while but became worse in the last couple of days. Patient reported associated signs and symptoms of cough, chest tightness and dizziness. Patient denies any other signs and symptoms. Symptoms are aggravated or relieved by nothing. Patient decided to present to the hospital due to worsening symptoms Allergies diazepam [From Valium] Adverse Reaction (Verified 08/04/22 01:38) "makes me stupid, too strong for me" diphenhydramine [From Benadryl] Adverse Reaction (Verified 08/04/22 01:38) "turns my nerve inside out" lorazepam Adverse Reaction (Verified 08/04/22 01:38) stomach issue Home Medications: Albuterol Inhaler [Ventolin Inhaler*] 2 puff IH Q4HP PRN 08/04/22 Albuterol Neb [Proventil 0.083% Neb Soln] 1 amp NEB Q4HP PRN 08/04/22 Buspirone HCl [Buspar] 2 tab PO BID 08/04/22 Clopidogrel Bisulfate [Plavix*] 75 mg PO DAILY 08/04/22 Fluoxetine HCl [Prozac] 20 mg PO DAILY 08/04/22 Fluticasone/Umeclidin/Vilanter [Trelegy Ellipta 100-62.5-25] 1 puff IH DAILY 08/04/22 Guaifenesin [Mucinex] 1,200 mg PO BID 08/04/22 Insulin Glargine,Hum.rec.anlog [Lantus] 10 unit SQ BID 08/04/22 Ipratropium/Albuterol Sulfate [Iprat-Albut 0.5-3(2.5) mg/3 ml] 1 amp NEB Q4HP PRN 08/04/22 Lamotrigine [Lamictal] 100 mg PO BID 08/04/22 Linagliptin [Tradjenta] 5 mg PO DAILY 08/04/22 Metoprolol Tartrate [Lopressor*] 25 mg PO BID 08/04/22 Potassium Citrate [Potassium] 99 mg PO DAILY 08/04/22 Roflumilast [Daliresp*] 500 mcg PO DAILY 08/04/22 Trazodone HCl [Desyrel] 100 mg PO BEDTIME 08/04/22 predniSONE [Prednisone*] 10 mg PO DAILY 08/04/22 Atorvastatin Calcium 1 tab PO BEDTIME 11/20/22 Insulin Aspart [Novolog Flexpen] See Protocol SQ BID 11/20/22 - Past Medical/Surgical History Diabetic: Yes -: COPD -: HTN -: Diabetes mellitus type 2 -: CAD -: Depression -: bipolar -: anxiety -: neuropathy -: -: Stents Psychosocial/ Personal History: Patient is retired, lives with her daughter - Family History Father Notes: Patient is adopted Mother Notes: patient is adopted - Social History Smoking Status: Current every day smoker Counseled patient to stop smoking for: less than 10 minutes Smoking therapy provided: Yes Patient receptive to therapy: Yes Alcohol use: No CD- Drugs: No Caffeine use: Yes Place of Residence: Home Review of Systems General: Unremarkable Eyes: Unremarkable ENT: Unremarkable Respiratory: Cough, Shortness of Breath, Other (Chest tightness) Cardiovascular: Unremarkable Gastrointestinal: Unremarkable Genitourinary: Unremarkable Musculoskeletal: Unremarkable Integumentary: Unremarkable Neurological: Other (Dizziness) Lymphatics: Unremarkable Physical Examination - Physical Exam General: Alert, In no apparent distress, Oriented x3 HEENT: Atraumatic, PERRLA, Mucous membr. moist/pink, EOMI, Sclerae nonicteric Neck: Supple, 2+ carotid pulse no bruit, No LAD, Without JVD or thyroid abnormality Respiratory: Normal air movement Cardiovascular: No edema, Regular rate/rhythm, Normal S1 S2 Capillary refill: <2 Seconds Gastrointestinal: Normal bowel sounds, No tenderness Musculoskeletal: No clubbing, No swelling, No tenderness Integumentary: No rashes Neurological: Normal gait, Normal speech, Normal tone, Normal affect Lymphatics: No axilla or inguinal lymphadenopathy - Studies Laboratory Data (last 24 hrs) 04/25/24 04/25/2404/25/25 07:02 07:02 07:02 WBC 9.20 Hgb 14.3 Hct 41.7 Plt Count 186 PT 12.1 INR 1.06 APTT 29.0 Sodium 137 Potassium 3.7 BUN 16 Creatinine 0.82 Glucose 77 Total Bilirubin 0.3 AST 28 ALT 30 Alkaline Phosphatase 62 Assessment and Plan - Plan Acute on chronic respiratory failure with hypoxia. Acute on chronic COPD exacerbation. --Continue neb treatment with Atrovent\\albuterol --Continue steroids --Titrate O2 therapy to achieve O2 sat of greater than 92%. Chronic diastolic CHF. --Stable. --Continue home medications --Daily weight and strict I/O. Hypertension --Stable. --Continue home medications Nicotine dependence --Patient counseled on tobacco cessation --Placed on nicotine patch. DM2 with hyperglycemia --BS monitoring with sliding scale insulin and Lantus. Bipolar disorder\\anxiety disorder\\Hyperlipidemia --Continue home medications History of CAD --Continue Plavix and statin DVT prophylaxis with Lovenox subQ Discharge Plan: Home Plan to discharge in: Greater than 2 days - Advance Directives Does patient have a Living Will: No Does patient have a Durable POA for Healthcare: No - Code Status/Comfort Care Code Status Assessed: Yes Physician Review: Patient Assessed, Agree with Above Assessment and Plan Critical Care: No
[2024-04-25 08:39] LABS: Blood Morphology Comment NOT SEEN (NOT SEEN); Platelet Estimate ADEQ; White Blood Cell Scan OK (OK)
[2024-04-25] MEDS: INSULIN REGULAR (HUMAN) 100 UNIT/ML SQ SCH (11:30)
[2024-04-25] MEDS ORDERED: METHYLPREDNISOLONE 40 MG INJ ONE (11:32)
[2024-04-25] MEDS ORDERED: INSULIN REGULAR (HUMAN) 100 UNIT/ML ONE (11:33)
[2024-04-25] MEDS ORDERED: ENOXAPARIN 40 MG/0.4 ML SQ ONE (11:34)
[2024-04-25] MEDS: METHYLPREDNISOLONE 40 MG INJ IV SCH (11:50)
[2024-04-25] MEDS: ENOXAPARIN 40 MG/0.4 ML SQ SCH (12:05)
[2024-04-25] MEDS: IPRATROPIUM BROM 0.5MG/2.5ML NEB SCH (13:30)
[2024-04-25] MEDS: ALBUTEROL 2.5 MG/3 ML NEB SOL NEB SCH (13:30)
[2024-04-25] MEDS ORDERED: D50W 25 GM/50 ML SYRINGE IV PRN (21:46)
[2024-04-25] MEDS: INSULIN GLARGINE 100 UNIT/ML SQ ONE (22:13)
[2024-04-25] MEDS: INSULIN GLARGINE 100 UNIT/ML SQ SCH (22:25)
[2024-04-25] MEDS ORDERED: INSULIN GLARGINE 100 UNITS/ML SQ SCH (22:30)
[2024-04-25] MEDS: HYDROCODONE/APAP 5/325 MG TAB PO PRN (22:32)
[2024-04-26 05:35] LABS: Absolute Lymphocytes (CBC) 0.3 K/uL (0.7-4.9); Absolute Monocytes 0.5 K/uL (0.1-1.3); Absolute Neutrophil 8.7 K/uL (1.8-8.0); Basophils % 0.2 % (0-1.3); Hematocrit 38.6 % (36.0-45.0); Hemoglobin 12.9 g/dL (12.0-15.0); Lymphocytes % 2.8 % (15.3-44.8); MCH 31.1 pg (27.0-35.0); MCHC 33.5 g/dL (32.0-36.0); MPV 7.7 fL (7.6-11.3); Monocytes % 5.2 % (3.3-12.3); Nucleated Red Blood Cells % 0.1 % (0-0); Platelets 198 thou/uL (152-406); RBC Red Blood Cell Count 4.15 M/uL (3.86-4.86); Red Cell Distribution Width 13.3 % (12.1-15.2)
[2024-04-26 05:42] LABS: Neutrophils % 91.8 % (41.7-73.7)
[2024-04-26 05:47] LABS: Anion Gap 7.7 mEq/L (5.0-15.0); Magnesium 2.3 mg/dL (1.6-2.4); Phosphorus 3.2 mg/dL (2.5-4.9); Potassium 4.7 mEq/L (3.5-5.1)
[2024-04-26] MEDS: INSULIN REGULAR (HUMAN) 100 UNIT/ML SQ SCH (08:12)
[2024-04-26] MEDS: NICOTINE 21 MG/PAT TD SCH (08:14)
[2024-04-26] MEDS: GUAIFENESIN 600 MG SA TAB PO SCH (09:17)
[2024-04-26 09:31] LABS: Specific Gravity > 1.030 (1.005-1.030); Sqamous Epithelial <5 /HPF (None Seen); Urine Bacteria None Seen /HPF (<20); Urine Bilirubin NEGATIVE (Negative); Urine Blood Negative (Negative); Urine Clarity Clear (Clear); Urine Color Yellow (Yellow); Urine Culture Reflex Order NOT NEEDED; Urine Glucose 4+ (Over) (Negative); Urine Ketones TRACE (Negative); Urine Microscopic Reflex YN ORDER UMIC; Urine Mucus Slight /HPF (None Seen); Urine Nitrite NEGATIVE (Negative); Urine Protein TRACE (Negative); Urine RBC None Seen /HPF (None Seen); Urine Urobilinogen Normal (Normal); Urine WBC <5 /HPF (<5)
[2024-04-26] MEDS: CLOPIDOGREL 75 MG TABLET PO SCH (09:50)
[2024-04-26] MEDS: ROFLUMILAST 500 MCG TABLET PO SCH (09:51)
[2024-04-26] MEDS: lamoTRIgine 100 MG TAB PO SCH (09:51)
[2024-04-26] MEDS: MUCINEX DM 12HR.SR TAB PO SCH (11:26)
[2024-04-26] MEDS: FLUOXETINE 20 MG CAP PO SCH (11:26)
[2024-04-26] MEDS: HOME MED 1 EA UNK (Linagliptin [Tradjenta] 5 MG) PO SCH (11:26)
--- NOTE | 2024-04-26 12:32 | EKG ---
Test Date: 2024-04-25 Test Time: 06:04:26 Workers Compensation Claims Specialist: RYAN MEASUREMENT RESULTS: Intervals: Rate: 113 AR: 126 QRSD: 82 QT: 344 QTc: 471 [place]: P: 76 AR: 126 QRS: 63 T: 73 INTERPRETIVE STATEMENTS: Sinus tachycardia Biatrial enlargement Nonspecific ST abnormality Abnormal ECG Compared to ECG 04/18/2024 20:44:30 Atrial abnormality now present ST (T wave) deviation now present T-wave abnormality no longer present Electronically Signed On 04-26-24 12:26:25 CDT by Foster Wilhelm
[2024-04-26] MEDS: INSULIN GLARGINE 100 UNIT/ML SQ ONE (12:34)
--- NOTE | 2024-04-26 14:55 | P.PN ---
Subjective Date of Service: 04/26/24 Chief Complaint: SOB Patient complaining of tremors. She basically reports no changes in her shortness of breath. No recorded fever. She reports anxiety. Physical Examination - Vital Signs Temperature: 97.9 F Blood Pressure: 134/60 Pulse: 117 Respirations: 20 Pulse Ox (%): 93 Assessment And Plan - Plan Physical examination General: Alert and oriented x3, NAD, HEENT: Conjunctiva not pale, anicteric sclera Neck: Supple, no elevated JVD Heart: Heart sounds 1 and 2 normal, regular rhythm, normal rate, no pedal edema Lungs: Diminished breath sounds bilaterally, mild scattered wheezes, no crackles. Abdomen: Soft, nondistended, nontender, normal bowel sounds. Extremities: No tenderness, no deformity Skin: Normal skin turgor, no rash, no nodules or ulcers. Neuro: No focal motor deficit. Normal speech. Psychiatry: Normal mood, no agitation. Diagnosis Acute on chronic respiratory failure with hypoxia Acute COPD exacerbation Continue scheduled nebs IV steroid Titrate oxygen. Resume Roflumilast Wean oxygen as tolerated. Smoking cessation advised Pulmonary consult. Chronic diastolic heart failure Patient appears compensated for CHF. Monitor intake and output. DM type II with hyperglycemia Superimposed steroid-induced hyperglycemia. Insulin sliding scale, Premeal insulin Titrate long-acting insulin. Anxiety disorder Bipolar disorder Resume home medications. History of coronary artery disease Continue Plavix and Statin. DVT prophylaxis: Lovenox SQ Advance Directive: Full code.
[2024-04-26] MEDS: INSULIN LISPRO 100 UNIT/1 ML SQ SCH (16:23)
[2024-04-26] MEDS: TRAZODONE 50 MG TABLET PO SCH (20:25)
[2024-04-26] MEDS: ATORVASTATIN 40 MG TAB PO SCH (20:26)
[2024-04-26] MEDS ORDERED: METOPROLOL TAR 25 MG TAB PO SCH (21:00)
[2024-04-27 04:33] LABS: Absolute Lymphocytes (CBC) 0.2 K/uL (0.7-4.9); Absolute Monocytes 0.5 K/uL (0.1-1.3); Absolute Neutrophil 10.6 K/uL (1.8-8.0); Basophils % 0.2 % (0-1.3); Hematocrit 35.9 % (36.0-45.0); Lymphocytes % 1.6 % (15.3-44.8); MCH 30.7 pg (27.0-35.0); MCHC 33.3 g/dL (32.0-36.0); MPV 7.9 fL (7.6-11.3); Monocytes % 4.6 % (3.3-12.3); Platelets 185 thou/uL (152-406); Red Cell Distribution Width 13.4 % (12.1-15.2)
[2024-04-27 04:35] LABS: Neutrophils % 93.6 % (41.7-73.7)
[2024-04-27 05:13] LABS: Anion Gap 8.9 mEq/L (5.0-15.0); Potassium 4.9 mEq/L (3.5-5.1)
[2024-04-27] MEDS ORDERED: HOME MED 1 EA UNK (Linagliptin [Tradjenta] 5 MG Tablet) PO SCH (09:00)
[2024-04-27] MEDS ORDERED: FLUOXETINE 20 MG CAP PO SCH (09:16)
--- NOTE | 2024-04-27 12:34 | P.CNS ---
Date of Consult: 04/27/24 Reason for Consult: COPD exacerbation Chief Complaint: SOB History of Present Illness: Pt i s68 yrs of age active smoker. AW increasing dyspnea for a week . Cough No fever or chills Compliant Allergies diazepam [From Valium] Adverse Reaction (Verified 08/04/22 01:38) "makes me stupid, too strong for me" diphenhydramine [From Benadryl] Adverse Reaction (Verified 08/04/22 01:38) "turns my nerve inside out" lorazepam Adverse Reaction (Verified 08/04/22 01:38) stomach issue Home Medications: Albuterol Inhaler [Ventolin Inhaler*] 2 puff IH Q4HP PRN 08/04/22 Albuterol Neb [Proventil 0.083% Neb Soln] 1 amp NEB Q4HP PRN 08/04/22 Clopidogrel Bisulfate [Plavix*] 75 mg PO DAILY 08/04/22 Fluoxetine HCl [Prozac] 20 mg PO DAILY 08/04/22 Guaifenesin [Mucinex] 1,200 mg PO BID 08/04/22 Insulin Glargine,Hum.rec.anlog [Lantus] 10 unit SQ BID 08/04/22 Ipratropium/Albuterol Sulfate [Iprat-Albut 0.5-3(2.5) mg/3 ml] 1 amp NEB Q4HP PRN 08/04/22 Lamotrigine [Lamictal] 100 mg PO BID 08/04/22 Linagliptin [Tradjenta] 5 mg PO DAILY 08/04/22 Metoprolol Tartrate [Lopressor*] 25 mg PO BID 08/04/22 Potassium Citrate [Potassium] 99 mg PO DAILY 08/04/22 Roflumilast [Daliresp*] 500 mcg PO DAILY 08/04/22 Trazodone HCl [Desyrel] 100 mg PO BEDTIME 08/04/22 predniSONE [Prednisone*] 10 mg PO DAILY 08/04/22 Atorvastatin Calcium 1 tab PO BEDTIME 11/20/22 Insulin Aspart [Novolog Flexpen] See Protocol SQ BID 11/20/22 Cariprazine HCl [Vraylar] 3 mg PO DAILY 04/26/24 - Past Medical/Surgical History Diabetic: Yes -: COPD -: HTN -: Diabetes mellitus type 2 -: CAD -: Depression -: bipolar -: anxiety -: neuropathy -: -: Stents Psychosocial/ Personal History: Patient is retired, lives with her daughter - Family History Father Notes: Patient is adopted Mother Notes: patient is adopted - Social History Smoking Status: Current every day smoker Alcohol use: No CD- Drugs: No Caffeine use: No Place of Residence: Home Review of Systems 10-point ROS is otherwise unremarkable General: Weakness Respiratory: Cough, Shortness of Breath Physical Examination Temp Pulse Resp BP Pulse Ox 97.7 F 119 H 16 120/56 L 97 04/27/24 11:24 04/27/24 11:24 04/27/24 11:24 04/27/24 11:24 04/27/24 11:24 General: Alert, Oriented x3, Moderate distress Respiratory: Clear to auscultation bilaterally, Diminished, Expiratory wheezes Cardiovascular: No edema, Regular rate/rhythm Gastrointestinal: Normal bowel sounds, Soft and benign - Problems (1) COPD exacerbation Current Visit: No Status: Acute Plan: Age 68 terminal COPD AW exacerbation. Will fax Treelgy to pharmacy. Add Zihromax and Augmentin. Reduce pred 20 BID BS very high. Labs reviewed CXRY COPD. Active smoker. VS O2 stable. Was denied NIV Compliant with meds at home
[2024-04-27] MEDS: AZITHROMYCIN 250 MG TAB PO SCH (12:54)
[2024-04-27] MEDS: AMOX/K CLAV 500 MG TAB PO SCH (12:54)
--- NOTE | 2024-04-27 15:30 | P.PN ---
Subjective Date of Service: 04/27/24 Chief Complaint: SOB Patient reports improvement in her shortness of breath and tremors. No issues overnight. Physical Examination - Vital Signs Temperature: 97.7 F Blood Pressure: 120/56 Pulse: 119 Respirations: 16 Pulse Ox (%): 97 Assessment And Plan - Plan Physical examination General: Alert and oriented x3, NAD, HEENT: Oxygen by nasal cannula Neck: Supple, no elevated JVD Heart: Heart sounds 1 and 2 normal, regular rhythm, normal rate, no pedal edema Lungs: Diminished breath sounds bilaterally, mild scattered wheezes, no crackles. Abdomen: Soft, nondistended, nontender, normal bowel sounds. Extremities: No tenderness, no deformity Skin: Normal skin turgor, no rash, no nodules or ulcers. Neuro: No focal motor deficit. Normal speech. Psychiatry: Normal mood, no agitation. Diagnosis Acute on chronic respiratory failure with hypoxia Acute COPD exacerbation Continue scheduled nebs IV steroid Titrate oxygen. Resume Roflumilast Wean oxygen as tolerated. Smoking cessation advised Pulmonary consult. Chronic diastolic heart failure Patient appears compensated for CHF. Monitor intake and output. DM type II with hyperglycemia Superimposed steroid-induced hyperglycemia. Insulin sliding scale, Premeal insulin Titrate long-acting insulin. Anxiety disorder Bipolar disorder Resume home medications. History of coronary artery disease Continue Plavix and Statin. 04/27 Respiratory status is clinically improving. Pulmonary consulted, patient seen by Dr. Licona. IV Solu-Medrol transition to oral prednisone. Titrate Lantus for steroid-induced hyperglycemia. Increase activity as tolerated Patient is on her baseline oxygen. Continue other medications for anxiety, bipolar disorder and coronary to disease. DVT prophylaxis: Lovenox SQ Advance Directive: Full code.
[2024-04-27] MEDS: INSULIN LISPRO 100 UNIT/1 ML SQ SCH (17:12)
[2024-04-27] MEDS: INSULIN GLARGINE 100 UNIT/ML SQ SCH (20:43)
[2024-04-27] MEDS: predniSONE 20 MG TAB PO SCH (20:45)
[2024-04-28 04:44] LABS: Absolute Lymphocytes (CBC) 0.4 K/uL (0.7-4.9); Absolute Monocytes 0.6 K/uL (0.1-1.3); Absolute Neutrophil 7.7 K/uL (1.8-8.0); Basophils % 0.2 % (0-1.3); Eosinophils % 0.1 % (0-4.4); Hematocrit 37.7 % (36.0-45.0); Hemoglobin 12.8 g/dL (12.0-15.0); Lymphocytes % 4.1 % (15.3-44.8); MCH 31.1 pg (27.0-35.0); MCHC 33.9 g/dL (32.0-36.0); MCV 91.5 fL (80-100); MPV 7.8 fL (7.6-11.3); Monocytes % 7.2 % (3.3-12.3); Neutrophils % 88.4 % (41.7-73.7); Nucleated Red Blood Cells % 0.2 % (0-0); Platelets 207 thou/uL (152-406); RBC Red Blood Cell Count 4.12 M/uL (3.86-4.86); Red Cell Distribution Width 13.7 % (12.1-15.2)
[2024-04-28 04:54] LABS: Anion Gap 3.5 mEq/L (5.0-15.0); Potassium 4.5 mEq/L (3.5-5.1)
[2024-04-28 08:43] VITALS: BP 150/65; TEMP 98
--- NOTE | 2024-04-28 09:07 | P.DS ---
Admission Date: 04/25/24 Discharge Date: 04/28/24 Disposition: ROUTINE DISCHARGE Discharge Condition: FAIR Reason for Admission: SOB Brief History of Present Illness: Patient is a 68-year-old female with a past medical history significant for COPD, CHF, hypertension, chronic respiratory failure, nicotine dependence who presents with complaint of shortness of breath of 2 days duration, associated with cough, chest tightness and dizziness. Patient was evaluated in the ED, chest x-ray demonstrated evidence of COPD without any acute infiltrate. Patient was hospitalized for further management of COPD exacerbation. Hospital Course: Patient admitted to the medical floor and the following medical problems addressed: Acute on chronic respiratory failure with hypoxia Acute COPD exacerbation Patient treated with scheduled nebulizers, IV steroids Also resumed her home dose Roflumilast She was maintained on her baseline 3 L oxygen by nasal cannula Pulmonary Dr. Licona evaluated her and assisted with management. Smoking cessation advised Patient respiratory status improved to baseline, vitals are stable. Patient is discharged with a tapering dose of prednisone. Dr. Licona prescribed her [facility] Chronic diastolic heart failure Patient appeared compensated for CHF. DM type II with hyperglycemia Superimposed steroid-induced hyperglycemia. Blood sugar management insulin sliding scale, Premeal insulin and long-acting insulin. Home insulin regimen resumed on discharge. Anxiety disorder Bipolar disorder Resumed home medications. History of coronary artery disease Continued Plavix and Statin. Vital Signs/Physical Exam: Temp Pulse Resp BP Pulse Ox 98.0 F 111 H 20 150/65 H 98 04/28/24 08:00 04/28/24 08:00 04/28/24 08:00 04/28/24 08:00 04/28/24 08:00 General: Alert, In no apparent distress, Oriented x3 HEENT: Mucous membr. moist/pink Neck: JVD not distended Respiratory: Diminished (Bilateral.), Other (No rhonchi.) Cardiovascular: Regular rate/rhythm, Normal S1 S2 Gastrointestinal: Normal bowel sounds, Soft and benign, Non-distended Musculoskeletal: No swelling Integumentary: No cyanosis Neurological: Normal strength at 5/5 x4 extr Laboratory Data at Discharge: WBC 8.70 thou/uL (4.3-10.9) 04/28/24 04:12 Hgb 12.8 g/dL (12.0-15.0) 04/28/24 04:12 Hct 37.7 % (36.0-45.0) 04/28/24 04:12 Plt Count 207 thou/uL (152-406) 04/28/24 04:12 PT 12.1 SECONDS (10-13.0) 04/25/24 07:02 INR 1.06 04/25/24 07:02 APTT 29.0 SECONDS (27.2-37.4) 04/25/24 07:02 Sodium 140 mEq/L (136-145) 04/28/24 04:12 Potassium 4.5 mEq/L (3.5-5.1) 04/28/24 04:12 BUN 20 mg/dL (7-18) H 04/28/24 04:12 Creatinine 0.67 mg/dL (0.55-1.02) 04/28/24 04:12 Glucose 105 mg/dL (74-106) 04/28/24 04:12 Phosphorus 3.2 mg/dL (2.5-4.9) 04/26/24 04:56 Magnesium Cancelled 04/26/24 05:00 Total Bilirubin 0.3 mg/dL (0.2-1.0) 04/25/24 07:02 AST 28 U/L (15-37) 04/25/24 07:02 ALT 30 U/L (13-56) 04/25/24 07:02 Alkaline Phosphatase 62 U/L (45-117) 04/25/24 07:02 Home Medications: Albuterol Inhaler [Ventolin Inhaler*] 2 puff IH Q4HP PRN 08/04/22 Albuterol Neb [Proventil 0.083% Neb Soln] 1 amp NEB Q4HP PRN 08/04/22 Clopidogrel Bisulfate [Plavix*] 75 mg PO DAILY 08/04/22 Fluoxetine HCl [Prozac] 20 mg PO DAILY 08/04/22 Guaifenesin [Mucinex] 1,200 mg PO BID 08/04/22 Insulin Glargine,Hum.rec.anlog [Lantus] 10 unit SQ BID 08/04/22 Ipratropium/Albuterol Sulfate [Iprat-Albut 0.5-3(2.5) mg/3 ml] 1 amp NEB Q4HP PRN 08/04/22 Lamotrigine [Lamictal] 100 mg PO BID 08/04/22 Linagliptin [Tradjenta] 5 mg PO DAILY 08/04/22 Metoprolol Tartrate [Lopressor*] 25 mg PO BID 08/04/22 Roflumilast [Daliresp*] 500 mcg PO DAILY 08/04/22 Trazodone HCl [Desyrel] 100 mg PO BEDTIME 08/04/22 predniSONE [Prednisone*] 10 mg PO DAILY 08/04/22 Atorvastatin Calcium 1 tab PO BEDTIME 11/20/22 Insulin Aspart [Novolog Flexpen] See Protocol SQ BID 11/20/22 Cariprazine HCl [Vraylar] 3 mg PO DAILY 04/26/24 Amox/Clavulanate [Augmentin 500-125 mg Tab*] 500 mg PO BID #12 tab 04/28/24 Azithromycin Tab [Zithromax*] 250 mg PO DAILY #5 tab 04/28/24 Fluticasone/Umeclidin/Vilanter [Trelegy Ellipta 100-62.5-25] 1 each IH DAILY 30 Days #30 aero 04/28/24 predniSONE [Deltasone*] 10 mg PO DAILY #14 tab 04/28/24 New Medications: Amox/Clavulanate [Augmentin 500-125 mg Tab*] 500 mg PO BID #12 tab predniSONE [Deltasone*] 10 mg PO DAILY #14 tab Fluticasone/Umeclidin/Vilanter [Trelegy Ellipta 100-62.5-25] 1 each IH DAILY 30 Days #30 aero Azithromycin Tab [Zithromax*] 250 mg PO DAILY #5 tab Diet: ADA Activity: Fall precautions Followup: Alonso Licona MD [ACTIVE - CAN ADMIT] - 1-2 Weeks Tino López MD [Primary Care Provider] - 1-2 Weeks Time spent managing pt's care (in minutes): 36
[2024-04-28 10:03] VITALS: O2SAT 90
[2024-04-28 10:18] VITALS: BMI 24.5
== END 2024-04-28 10:45 | disposition home or self-care (01) | DRG 871 ==
LOC: ER 05:54 → ERHOLD 08:24 → 2ND 14:44
PROVIDERS: ADMIT Hospitalist; ATTEND Internal Medicine
DX: A41.9 Sepsis, unspecified organism (principal); J96.21 Acute and chronic respiratory failure with hypoxia; J44.1 Chronic obstructive pulmonary disease with (acute) exacerbation; I50.32 Chronic diastolic (congestive) heart failure; I11.0 Hypertensive heart disease with heart failure; F41.9 Anxiety disorder, unspecified; F31.9 Bipolar disorder, unspecified; E11.40 Type 2 diabetes mellitus with diabetic neuropathy, unspecified; E11.65 Type 2 diabetes mellitus with hyperglycemia; E78.00 Pure hypercholesterolemia, unspecified; I25.10 Atherosclerotic heart disease of native coronary artery without angina pectoris; F17.200 Nicotine dependence, unspecified, uncomplicated; Z71.6 Tobacco abuse counseling; Z79.4 Long term (current) use of insulin; Z95.5 Presence of coronary angioplasty implant and graft; Z88.8 Allergy status to other drugs, medicaments and biological substances; Z99.81 Dependence on supplemental oxygen; Z79.02 Long term (current) use of antithrombotics/antiplatelets; Z79.899 Other long term (current) drug therapy
CPT/HCPCS: 36415; 71045; 80048; 80053; 81001; 82947; 83605; 83735; 84100; 85025; 85610; 85730; 87040; 93005; 94640; 94760; 96365; 99285; J0696; J1650; J1815; J2919; J7050; J7512; J7613; J7644

== ENCOUNTER 2024-05-13 13:15 | Emergency (ER) | payer OTHER ==
--- NOTE | 2024-05-13 13:54 | RAD REPORT ---
EXAMINATION: ONE VIEW CHEST XR CLINICAL INDICATION: COPD TECHNIQUE: Frontal chest projection is submitted. Examination is limited by patient positioning and t echnique. COMPARISON: 04/25/2024 FINDINGS: The lungs are diffusely emphysematous but grossly clear. Blunting of the costophrenic angles likely p leural thickening. The heart is normal in size. No displaced fractures identified. Aortic atherosclerosis. IMPRESSION: COPD without an acute process suspected.
[2024-05-13] MEDS ORDERED: IPRATROPIUM BROM 0.5MG/2.5ML ONE (13:57)
[2024-05-13] MEDS ORDERED: ALBUTEROL 2.5 MG/3 ML NEB SOL ONE (13:57)
[2024-05-13 14:08] LABS: Absolute Lymphocytes (CBC) 0.7 K/uL (0.7-4.9); Absolute Monocytes 0.4 K/uL (0.1-1.3); Absolute Neutrophil 6.8 K/uL (1.8-8.0); Basophils % 0.4 % (0-1.3); Eosinophils % 0.4 % (0-4.4); Hematocrit 37.3 % (36.0-45.0); Hemoglobin 12.6 g/dL (12.0-15.0); Lymphocytes % 8.4 % (15.3-44.8); MCH 31.2 pg (27.0-35.0); MCHC 33.7 g/dL (32.0-36.0); MCV 92.8 fL (80-100); MPV 7.6 fL (7.6-11.3); Monocytes % 4.5 % (3.3-12.3); Neutrophils % 86.3 % (41.7-73.7); Nucleated Red Blood Cells % 0.1 % (0-0); Platelets 230 thou/uL (152-406); RBC Red Blood Cell Count 4.02 M/uL (3.86-4.86); Red Cell Distribution Width 13.2 % (12.1-15.2)
[2024-05-13 14:20] LABS: PT Prothrombin Time 11.2 SECONDS (10-13.0); Protime INR 0.98
[2024-05-13 14:27] LABS: ALT/SGPT 23 U/L (13-56); AST/SGOT 16 U/L (15-37); Albumin 2.8 g/dL (3.4-5.0); Albumin/Globulin Ratio 0.9 (1.1-1.8); Alkaline Phosphatase 67 U/L (45-117); Anion Gap 5.3 mEq/L (5.0-15.0); BUN Blood Urea Nitrogen 20 mg/dL (7-18); Bicarbonate 35 mEq/L (21-32); Bilirubin Total 0.3 mg/dL (0.2-1.0); Globulin 3.1 g/dL (2.3-3.5); Glomerular Filtration Rate 84 ml/min (=/>90); Glucose Level 327 mg/dL (74-106); Magnesium 2.1 mg/dL (1.6-2.4); NT PRO-BNP 753 pg/mL (<125); Potassium 4.3 mEq/L (3.5-5.1); Protein, Total 5.9 g/dL (6.4-8.2); Sodium Level 138 mEq/L (136-145)
[2024-05-13 14:30] LABS: Blood Morphology Comment NOT SEEN (NOT SEEN); Platelet Estimate ADEQ; White Blood Cell Scan OK (OK)
[2024-05-13 14:31] LABS: Bilirubin Direct < 0.2 mg/dL (0-0.2); Bilirubin Indirect, Calculated 0.1 mg/dL (0.2-0.8)
--- NOTE | 2024-05-13 14:54 | EDPHYS ---
Physician Documentation [facility] Name: Miles Reyes Age: 68 yrs Sex: Female : 1955 Arrival Date: 05/13/2024 Time: 13:15 Bed 3 Private MD: ED Physician Isaac Herman HPI: 05/13 13:47 This 68 yrs old Female presents to ER via EMS with complaints of Breathing Difficulty. sp3 13:47 68-year-old female with history of COPD, diabetes, CHF, hyperlipidemia presents via EMS sp3 for chief complaint COPD exacerbation with initial pulse oxygenation in the low 80s. Patient received nebulizer treatment and steroids en route and now is much improved. Currently on nasal cannula. She denies any headache, fever, known sick contacts, travel history, chest pain, abdominal pain, nausea, vomit, diarrhea, syncope, near syncope, rash, or any other signs or symptoms on ROS at this time.. Historical: - Allergies: 13:33 Benadryl; hb 13:33 Lorazepam; hb 13:33 Valium; hb - PMHx: 13:33 CHF; Chronic obstructive lung disease; diabetes mellitus; Emphysema; hb Hypercholesterolemia; Hypertensive disorder; O2 dependent 2L-4L PRN; - PSHx: 13:33 Heart Stents; section; hb - Immunization history:: Adult Immunizations up to date. - Infectious Disease History:: CDIFF, . - Social history:: Smoking status: Patient reports the use of cigarette tobacco products. ROS: 13:48 Constitutional: Negative for fever, chills, and weight loss, Eyes: Negative for injury, sp3 pain, redness, and discharge, ENT: Negative for injury, pain, and discharge, Neck: Negative for injury, pain, and swelling, Cardiovascular: Negative for chest pain, palpitations, and edema, Abdomen/GI: Negative for abdominal pain, nausea, vomiting, diarrhea, and constipation, Back: Negative for injury and pain, MS/Extremity: Negative for injury and deformity, Skin: Negative for injury, rash, and discoloration, Neuro: Negative for headache, weakness, numbness, tingling, and seizure, Psych: Negative for depression, anxiety, suicide ideation, homicidal ideation, and hallucinations, Allergy/Immunology: Negative for hives, rash, and allergies, Endocrine: Negative for neck swelling, polydipsia, polyuria, polyphagia, and marked weight changes, Hematologic/Lymphatic: Negative for swollen nodes, abnormal bleeding, and unusual bruising, 13:48 All other systems are negative, Exam: 13:48 Constitutional: This is a well developed, well nourished patient who is awake, alert, sp3 and in no acute distress. Head/Face: Normocephalic, atraumatic. Eyes: Pupils equal round and reactive to light, extra-ocular motions intact. Lids and lashes normal. Conjunctiva and sclera are non-icteric and not injected. Cornea within normal limits. Periorbital areas with no swelling, redness, or edema. ENT: Nares patent. No nasal discharge, no septal abnormalities noted. External auditory canals are clear. Oropharynx with no redness, swelling, or masses, exudates, or evidence of obstruction, uvula midline. Mucous membranes moist. Neck: Trachea midline, no thyromegaly or masses palpated, and no cervical lymphadenopathy. Supple, full range of motion without nuchal rigidity, or vertebral point tenderness. No Meningismus. Chest/axilla: Normal chest wall appearance and motion. Nontender with no deformity. No lesions are appreciated. Cardiovascular: Regular rate and rhythm with a normal S1 and S2. No gallops, murmurs, or rubs. Normal PMI, no JVD. No pulse deficits. Abdomen/GI: Soft, non-tender, with normal bowel sounds. No distension or tympany. No guarding or rebound. No evidence of tenderness throughout. Back: No spinal tenderness. No costovertebral tenderness. Full range of motion. Skin: Warm, dry with normal turgor. Normal color with no rashes, no lesions, and no evidence of cellulitis. MS/ Extremity: Pulses equal, no cyanosis. Neurovascular intact. Full, normal range of motion. Neuro: Awake and alert, GCS 15, oriented to person, place, time, and situation. Cranial nerves II-XII grossly intact. Motor strength 5/5 in all extremities. Sensory grossly intact. Cerebellar exam normal. Normal gait. Psych: Awake, alert, with orientation to person, place and time. Behavior, mood, and affect are within normal limits. 13:48 Respiratory: Scattered wheezes bilaterally. Patient in no respiratory difficulty. Pulse oxygenation 96% on 2 L and patient resting comfortably now., 14:23 ECG was reviewed by the Attending Physician. EKG demonstrates normal sinus rhythm at 86 sp3 bpm with normal intervals, normal QRS, normal axis, nonspecific diffuse ST/T changes without evidence of acute ischemia. Vital Signs: 13:28 BP 116 / 74; Pulse 84; Resp 25; Temp 98.1; Pulse Ox 95% on 3 lpm NC; Pain 3/10; hb 14:07 BP 104 / 62; Pulse 84; Resp 23; Pulse Ox 99% on Nebulizer Mask; hb 15:00 BP 110 / 68; Pulse 92; Resp 22; Pulse Ox 95% 3 lpm ; hb 16:00 BP 106 / 64; Pulse 88; Resp 23; Pulse Ox 96% 3 lpm ; hb 13:28 Pain Scale: Adult hb MDM: 13:29 Medical Screening Exam initiated sp3 13:48 Data reviewed: vital signs, nurses notes, old medical records, lab test result(s), EKG, sp3 radiologic studies. ED course: 68-year-old female with difficulty breathing. Differential diagnosis includes COPD exacerbation, CHF exacerbation, pneumonia, bronchitis, viral illness. I am not highly suspicious of acute coronary syndrome, sepsis, shock or any other critical pathology. Will add 1 more nebulizer and reevaluate after full workup which includes EKG, chest x-ray and general labs. Patient already has received Solu-Medrol and nebulizers en route. If workup negative and patient continues to be improved, we will safely discharge patient home.. 14:53 ED course: Patient much improved. Will discharge her on prednisone and Zithromax.. sp3 05/13 13:30 Order name: Basic Metabolic Panel; Complete Time: 14:32 sp3 05/13 13:30 Order name: CBC with Diff; Complete Time: 14:32 sp3 05/13 13:30 Order name: LFT's; Complete Time: 14:32 sp3 05/13 13:30 Order name: Magnesium; Complete Time: 14:32 sp3 05/13 13:30 Order name: NT PRO-BNP; Complete Time: 14:32 sp3 05/13 13:30 Order name: PT-INR; Complete Time: 14:32 sp3 05/13 13:30 Order name: Troponin HS; Complete Time: 14:32 sp3 05/13 14:11 Order name: CBC Smear Scan; Complete Time: 14:32 EDMS 05/13 13:30 Order name: XRAY Chest (1 view); Complete Time: 13:58 sp3 05/13 13:30 Order name: Cardiac monitoring; Complete Time: 14:05 sp3 05/13 13:30 Order name: EKG - Nurse/Tech; Complete Time: 14:05 sp3 05/13 13:30 Order name: IV Saline Lock; Complete Time: 14:05 sp3 05/13 13:30 Order name: Labs collected and sent; Complete Time: 14:05 sp3 05/13 13:30 Order name: O2 Per Protocol; Complete Time: 14:05 sp3 05/13 13:30 Order name: O2 Sat Monitoring; Complete Time: 14:05 sp3 Administered Medications: 14:05 Drug: DuoNeb Nebulize (3:1) (2.5 mg - 0.5 mg) 3 ml Nebulizer once Route: Nebulizer; hb 15:00 Follow up: Response: No adverse reaction hb Disposition Summary: 05/13/24 14:54 Discharge Ordered Notes: Location: Home sp3 Condition: Stable sp3 Diagnosis - COPD exacerbation, dyspnea, hypoxia resolved sp3 Followup: sp3 - With: Private Physician - When: Upon discharge from the Emergency Department - Reason: Continuance of care Discharge Instructions: - Discharge Summary Sheet sp3 - Living With COPD sp3 Forms: - Medication Reconciliation Form sp3 - Antibiotic Education sp3 - Prescription Opioid Use sp3 - Patient Portal Instructions sp3 - Leadership Thank You Letter sp3 Prescriptions: - Zithromax Z-Jhoan 250 mg Oral Tablet - take 1 tablet ORAL route as directed for 5 days Day 1 - take two (2) tablets sp3 one time. Day 2, 3, 4 , 5 take one (1) tablet once daily.; 6 tablet; Refills: 0, Product Selection Permitted - Prednisone 20 mg Oral Tablet - take 2 tablets ORAL route once daily for 5 days; 10 tablet; Refills: 0, Product sp3 Selection Permitted Signatures: [facility] Angelica Gatica, SIDDHARTH RN Isaac Colmenares MD MD sp3 Corrections: (The following items were deleted from the chart) 13:30 13:30 BASIC METABOLIC PANEL+C.LAB.BRZ ordered. EDMS EDMS 13:30 13:30 CBC+H.LAB.BRZ ordered. EDMS EDMS 13:30 13:30 HEPATIC FUNCTION+C.LAB.BRZ ordered. EDMS EDMS 13:30 13:30 MAGNESIUM+C.LAB.BRZ ordered. EDMS EDMS 13:30 13:30 PROBNP+C.LAB.BRZ ordered. EDMS EDMS 13: 13:30 PROTIME (+INR)+COAG.LAB.BRZ ordered. EDMS EDMS 13: 13:30 Troponin High Sensitivity+C.LAB.BRZ ordered. EDMS EDMS 13: 13:30 Chest Single View+RAD.RAD.BRZ ordered. EDMS EDMS
--- NOTE | 2024-05-13 14:54 | ER ---
Nurse's Notes [facility] Name: Miles Reyes Age: 68 yrs Sex: Female : 1955 Arrival Date: 05/13/2024 Time: 13:15 Bed 3 Private MD: Diagnosis: COPD exacerbation, dyspnea, hypoxia resolved Presentation: 05/13 13:28 Chief complaint: EMS states: Home health called for SOB and SpO2 85% on 5LNC. Pt hb reports she is not more SOB than normal. DuoNeb, NS 400 ml, and SoluMedrol 135 mg IVP to 20g RFA. Coronavirus screen: At this time, the client does not indicate any symptoms associated with coronavirus-19. Ebola Screen: No symptoms or risks identified at this time. Initial Sepsis Screen: Does the patient meet any 2 criteria? No. Patient's initial sepsis screen is negative. Does the patient have a suspected source of infection? No. Patient's initial sepsis screen is negative. Risk Assessment: Do you want to hurt yourself or someone else? Patient reports no desire to harm self or others. Onset of symptoms was May 13, 2024. 13:28 Method Of Arrival: EMS: [facility] 13:28 Acuity: CONSTANTINO 2 hb Triage Assessment: 13:28 General: Appears mildly distressed. Behavior is calm, cooperative. Pain: Pain currently hb is 3 out of 10 on a pain scale. EENT: No signs and/or symptoms were reported regarding the EENT system. Neuro: Level of Consciousness is awake, alert, obeys commands, Oriented to person, place, time, situation. Cardiovascular: Patient's skin is warm and dry. Respiratory: Respiratory effort is labored, Respiratory pattern is tachypnea. GI: No signs and/or symptoms were reported involving the gastrointestinal system. : No signs and/or symptoms were reported regarding the genitourinary system. Derm: Skin is pink, warm \T\ dry. Musculoskeletal: Reports chronic neck pain. Historical: - Allergies: 13:33 Benadryl; hb 13:33 Lorazepam; hb 13:33 Valium; hb - PMHx: 13:33 CHF; Chronic obstructive lung disease; diabetes mellitus; Emphysema; hb Hypercholesterolemia; Hypertensive disorder; O2 dependent 2L-4L PRN; - PSHx: 13:33 Heart Stents; section; hb - Immunization history:: Adult Immunizations up to date. - Infectious Disease History:: CDIFF, . - Social history:: Smoking status: Patient reports the use of cigarette tobacco products. Screenin:[address] [facility] ED Fall Risk Assessment (Adult) History of falling in the last 3 months, hb including since admission No falls in past 3 months (0 pts) Confusion or Disorientation No (0 pts) Intoxicated or Sedated No (0 pts) Impaired Gait No (0 pts) Mobility Assist Device Used No (0 pt) Altered Elimination No (0 pt) Score/Fall Risk Level 0 - 2 = Low Risk Oriented to surroundings, Maintained a safe environment, Educated pt \T\ family on fall prevention, incl call for assistance when getting out of bed. Abuse screen: Denies threats or abuse. Denies injuries from another. Nutritional screening: No deficits noted. Tuberculosis screening: No symptoms or risk factors identified. Assessment: 13:36 General: See triage assessment . hb 14:06 Reassessment: No changes from previously documented assessment. Patient and/or family hb updated on plan of care and expected duration. Pain level reassessed. Vital Signs: 13:28 BP 116 / 74; Pulse 84; Resp 25; Temp 98.1; Pulse Ox 95% on 3 lpm NC; Pain 3/10; hb 14:07 BP 104 / 62; Pulse 84; Resp 23; Pulse Ox 99% on Nebulizer Mask; hb 15:00 BP 110 / 68; Pulse 92; Resp 22; Pulse Ox 95% 3 lpm ; hb 16:00 BP 106 / 64; Pulse 88; Resp 23; Pulse Ox 96% 3 lpm ; hb 13:28 Pain Scale: Adult hb ED Course: 13:19 Patient arrived in ED. ph 13:24 Isaac Herman MD is Attending Physician. sp3 13:33 Triage completed. hb 13:33 Arm band placed on. hb 13:36 Patient has correct armband on for positive identification. Bed in low position. Call hb light in reach. Provided Education on: POC, result times. Client placed on continuous cardiac and pulse oximetry monitoring. NIBP monitoring applied. etiquette coach on. Pulse ox on. NIBP on. 13:36 Maintain EMS IV. Dressing intact. Good blood return noted. Site clean \T\ dry. Gauge \T\ hb site: 20g RFA. Flushed with 10 mL NS. 13:46 XRAY Chest (1 view) In Process Unspecified. EDMS 14:02 EKG done, by ED staff, reviewed by Isaac Herman MD. hb 14:05 Angelica Gatica, RN is Primary Nurse. hb 14:05 Basic Metabolic Panel Sent. hb 14:05 CBC with Diff Sent. hb 14:05 LFT's Sent. hb 14:05 Magnesium Sent. hb 14:05 NT PRO-BNP Sent. hb 14:05 PT-INR Sent. hb 14:05 Troponin HS Sent. hb 14:05 Initial lab(s) drawn, by wi, sent to lab. hb Administered Medications: 14:05 Drug: DuoNeb Nebulize (3:1) (2.5 mg - 0.5 mg) 3 ml Nebulizer once Route: Nebulizer; hb 15:00 Follow up: Response: No adverse reaction hb Medication: 13:36 VIS not applicable for this client. hb Outcome: 14:54 Discharge ordered by . sp3 16:41 Patient left the ED. hb Signatures: Dispatcher [employer] EDND Lea Choi, RN RN Angelica Gatica, RN RN Isaac Herman MD MD sp3
[2024-05-13 17:12] VITALS: TEMP 98.1
[2024-05-13 17:16] VITALS: BP 106/64; O2SAT 96
--- NOTE | 2024-05-15 11:32 | EKG ---
Test Date: 2024-05-13 Test Time: 14:00:51 [employer]: HB MEASUREMENT RESULTS: Intervals: Rate: 86 OK: 128 QRSD: 86 QT: 390 QTc: 466 [place]: P: 81 OK: 128 QRS: 73 T: 83 INTERPRETIVE STATEMENTS: Normal sinus rhythm Right atrial enlargement Borderline ECG Compared to ECG 04/25/2024 06:04:26 Sinus tachycardia no longer present ST (T wave) deviation no longer present Electronically Signed On 05-15-24 11:29:18 CDT by Foster Wilhelm
== END 2024-05-13 16:41 | disposition home or self-care (01) ==
LOC: ER 13:15
DX: J44.1 Chronic obstructive pulmonary disease with (acute) exacerbation (principal); I50.9 Heart failure, unspecified; I10 Essential (primary) hypertension; F17.210 Nicotine dependence, cigarettes, uncomplicated; Z95.818 Presence of other cardiac implants and grafts; Z99.81 Dependence on supplemental oxygen
CPT/HCPCS: 93005; 85025; 80048; 36415; 83735; 85610; 80076; 84484; 83880; 71045; 99285; J7613; J7644

== ENCOUNTER 2024-09-09 10:05 | Inpatient (IN) | payer OTHER ==
--- NOTE | 2024-09-09 10:19 | EDPHYS ---
Physician Documentation [facility] Name: Miles Reyes Age: 68 yrs Sex: Female : 1955 Arrival Date: 09/09/2024 Time: 10:04 Bed 19 Private MD: FERNNADEZ Physician Iván Mendez HPI: 09/09 11:27 This 68 yrs old Female presents to ER via EMS with complaints of Breathing Difficulty. sb4 11:27 Patient reports shortness of breath at rest. States she started feeling badly last sb4 night, called EMS and was transported here. Was worked up and given meds and felt better so was discharged home. Started feeling poorly again this morning, did 2 breathing treatments and took a 20 mg prednisone, was still feeling badly and called EMS again. EMS administered a third breathing treatment as well as 125 mg of IV Solu-Medrol. Patient still tachypneic with significant wheezing upon arrival although states that she feels improvement. Historical: - Allergies: 10:19 Benadryl; dd2 10:19 Lorazepam; dd2 10:19 Valium; dd2 - PMHx: 10:19 CHF; Chronic obstructive lung disease; diabetes mellitus; Emphysema; dd2 Hypercholesterolemia; Hypertensive disorder; O2 dependent 2L-4L PRN; - PSHx: 10:19 section; Heart Stents; dd2 - Immunization history:: Adult Immunizations up to date. - Infectious Disease History:: Denies. - Social history:: Smoking status: Patient reports the use of cigarette tobacco products, smokes one-half pack cigarettes per day, Reported history of juuling and/or vaping. ROS: 11:27 Constitutional: Negative for fever, chills, and weight loss, sb4 11:27 Respiratory: Positive for cough, dyspnea on exertion, shortness of breath, wheezing, 11:27 All other systems are negative, Exam: 11:27 Head/Face: Normocephalic, atraumatic. Eyes: Extra-ocular motions intact. Periorbital sb4 areas with no swelling, redness, or edema. Skin: Warm, dry with normal turgor. Normal color with no rashes, no lesions, and no evidence of cellulitis. 11:27 Constitutional: The patient appears alert, awake, anxious, in obvious distress, moderately distressed, 11:27 Cardiovascular: Rate: tachycardic, Rhythm: regular, 11:27 Respiratory: moderate respiratory distress is noted, Respirations: labored breathing, shallow respirations, tachypnea, Breath sounds: wheezing: that is severe, is heard diffusely, Vital Signs: 10:15 BP 126 / 80; Pulse 114; Resp 23; Temp 98.6; Pulse Ox 97% on 4 lpm NC; Weight 59.42 kg; dd2 10:45 BP 126 / 64; Pulse 115; Resp 23; Pulse Ox 98% on 5 lpm NC; dd2 11:30 BP 118 / 80; Pulse 114; Resp 22; Pulse Ox 99% on 4 lpm NC; dd2 12:01 BP 135 / 74; Pulse 115; Resp 22; Pulse Ox 98% on 4 lpm NC; dd2 13:00 BP 152 / 93; Pulse 114; Resp 20; Pulse Ox 100% on 6 lpm NC; rg5 14:05 BP 138 / 84; Pulse 114; Resp 20; Pulse Ox 97% on 4 lpm NC; rg5 16:00 BP 131 / 104; Pulse 106; Resp 19; Pulse Ox 98% on 4 lpm NC; rg5 17:16 BP 129 / 73; Pulse 108; Resp 19; Pulse Ox 97% on 4 lpm NC; rg5 19:40 BP 131 / 79; Pulse 95; Resp 18; Pulse Ox 96% on 4 lpm NC; Pain 0/10; rg5 19:40 Pain Scale: Adult rg5 [place] Coma Score: 10:23 Eye Response: spontaneous(4). Motor Response: obeys commands(6). Verbal Response: dd2 oriented(5). Total: 15. MDM: 10:06 Medical Screening Exam initiated sb4 11:22 Post IV fluid administration reassessment for Sepsis: Client prescribed 30 mL/kg IVF. sb4 11:27 Differential diagnosis: Anemia Anxiety Reaction asthma, Bronchitis CHF exacerbation, sb4 Chronic Obstructive Pulmonary Disease. Antibiotic administration: Zosyn. Data interpreted: Pulse oximetry: on 4L(s) per nasal canula, is 97 %. Interpretation: acceptable. Data reviewed: vital signs, nurses notes, EMS record, lab test result(s), EKG, radiologic studies, and as a result, I will admit patient. Consideration of Admission/Observation Patient was admitted/placed on observation. Management of patient was discussed with the following: Hospitalist: Dr. Zarco, agrees to admit. Care significantly affected by the following chronic conditions: Diabetes, Hypertension, Congestive Heart Failure, Chronic Obstructive Pulmonary Disease. Counseling: I had a detailed discussion with the patient and/or guardian regarding the historical points, exam findings, and any diagnostic results supporting the discharge/admit diagnosis, lab results, radiology results, the need for further work-up and treatment in the hospital. Response to treatment: the patient's symptoms have mildly improved after treatment. 12:31 Post IV fluid administration reassessment for Sepsis: Sepsis focused reassessment [facility] complete. 09/09 10:17 Order name: BNP; Complete Time: 11:32 [facility] 09/09 10:17 Order name: Blood Culture Adult (2) [facility] 09/09 10:17 Order name: CBC with Diff; Complete Time: 13:13 [facility] 09/09 10:17 Order name: CMP; Complete Time: 11:32 [facility] 09/09 10:17 Order name: Lactate w/ 2H reflex if indic.; Complete Time: 11:21 [facility] 09/09 10:17 Order name: Protime (+inr); Complete Time: 11:32 [facility] 09/09 10:17 Order name: Ptt, Activated; Complete Time: 11:32 [facility] 09/09 10:17 Order name: Troponin HS; Complete Time: 11:32 [facility] 09/09 10:32 Order name: Lipid Profile [facility] 09/09 10:32 Order name: Lipid Profile [facility] 09/09 11:01 Order name: ABG; Complete Time: 11:57 [facility] 09/09 11:04 Order name: Lab Add On [facility] 09/09 11:28 Order name: D-Dimer; Complete Time: 11:32 [facility] 09/09 11:29 Order name: Lipid Profile; Complete Time: 11:32 [facility] 09/09 13:13 Order name: CBC Smear Scan; Complete Time: 13:13 [facility] 09/09 13:17 Order name: Ghost Lactate-NO COLLECT Timer; Complete Time: 13:17 [facility] 09/09 14:31 Order name: Lactate Sepsis 2 HR Follow-up; Complete Time: 14:31 [facility] 09/09 11:37 Order name: RAD; Complete Time: 11:37 [facility] 09/09 10:17 Order name: Accucheck; Complete Time: 12:01 sb4 09/09 10:17 Order name: Cardiac monitoring; Complete Time: 11:00 sb4 09/09 10:17 Order name: EKG - Nurse/Tech; Complete Time: 11:00 sb4 09/09 10:17 Order name: IV Saline Lock - Large Bore; Complete Time: 10: sb4 09/09 10:17 Order name: Labs collected and sent; Complete Time: 11:00 sb4 09/09 10:17 Order name: O2 Per Protocol; Complete Time: : sb4 09/09 10:17 Order name: O2 Sat Monitoring; Complete Time: : sb4 09/09 10:17 Order name: Vital Signs; Complete Time: : sb4 EC:58 Rate is 120 beats/min. Rhythm is regular, Sinus tachycardia with PACs. KS interval is sb4 normal at 140 msec. QRS interval is normal at 82 msec. QT interval is normal at 336 msec. No Q waves. T waves are Normal. No ST changes noted. Clinical impression: No evidence of ischemia. Interpreted by me. Reviewed by me. Administered Medications: 11:52 Drug: Piperacillin-Tazobactam IVPB 3.375 grams IVPB once over 60 mins; (mix in NS 100 dd2 mL) Route: IVPB; Infused Over: 60 mins; Site: right wrist; 13:00 Follow up: IV Status: Completed infusion; IV Intake: 100ml rg5 11:52 Drug: NS 0.9% IV (30 ml/kg) 30 ml/kg IV at bolus once; Sepsis Protocol; to be given as dd2 a bolus over 90 minutes Route: IV; Rate: bolus; Site: right wrist; 17:30 Follow up: IV Status: Completed infusion; IV Intake: 2000ml rg5 13:00 Drug: morphine IVP or IV 2 mg IVP once over 4 mins Route: IVP; Infused Over: 4 mins; rg5 Site: right antecubital; 14:14 Follow up: Response: No adverse reaction rg5 Disposition: 11:30 Critical Care:. sb4 Disposition Summary: 09/09/24 10:19 Hospitalization Ordered Notes: Hospitalization Status: Inpatient Admission sb4 [facility]) sb4 Condition: Fair sb4 Problem: an acute exacerbation sb4 Symptoms: have improved sb4 Bed/Room Type: Standard sb4 Provider: Brian Riley(09/09/24 11:03) eb Room Assignment: 203(09/09/24 18:50) rv1 Diagnosis - COPD/ Chronic obstructive pulmonary disease with (acute) exacerbation sb4 - Tobacco abuse sb4 - Acute and chronic respiratory failure with hypoxia sb4 Forms: - Medication Reconciliation Form sb4 - SBAR form sb4 - Leadership Thank You Letter sb4 Critical care time excluding procedures: 11:30 Critical care time: Bedside Care: 15 minutes, Consultation: 20 minutes. Total time: 35 sb4 minutes Addendum: 09/14/2024 15:52 Co-signature as Attending Physician, Iván Mendez MD I agree with the assessment and c alston plan of care. Signatures: Dispatcher [employer] EDMS Iván Mendez MD MD cha Blanchard, Shelby, RN RN ss Maribell Winters Sophia PA-C PA-C sb4 Vianney Loera rv1 Jcoe Hill RN RN rg5 ANTOINE YANCEY RN RN dd2 Corrections: (The following items were deleted from the chart) 09/09 10:17 10:17 PROBNP+C.LAB.BRZ ordered. EDMS EDMS 10:17 10:17 BLOOD CULTURE*+BA.LAB.BRZ ordered. EDMS EDMS 10:17 10:17 CBC+H.LAB.BRZ ordered. EDMS EDMS 10:17 10:17 COMPREHENSIVE METABOLIC PANEL+C.LAB.BRZ ordered. EDMS EDMS 10:17 10:17 LACTATE+C.LAB.BRZ ordered. EDMS EDMS 10:17 10:17 PROTIME (+INR)+COAG.LAB.BRZ ordered. EDMS EDMS 10:17 10:17 PTT, ACTIVATED+COAG.LAB.BRZ ordered. EDMS EDMS 10:17 10:17 Troponin High Sensitivity+C.LAB.BRZ ordered. EDMS EDMS 10:17 10:17 Chest Single View+RAD.RAD.BRZ ordered. EDMS EDMS 11:03 10:19 Brian Riley sb4 eb 11:03 10:19 sb4 eb 11:05 11:03 218 eb ss 18:50 11:05 ss rv1
[2024-09-09] MEDS: METHYLPREDNISOLONE 125 MG INJ IV STA (10:51)
[2024-09-09 10:56] LABS: Absolute Lymphocytes (CBC) 0.3 K/uL (0.7-4.9); Hematocrit 40.0 % (36.0-45.0); Hemoglobin 13.0 g/dL (12.0-15.0); MCH 29.6 pg (27.0-35.0); MCHC 32.5 g/dL (32.0-36.0); MCV 91.0 fL (80-100); MPV 8.0 fL (7.6-11.3); Nucleated RBC Absolute Count 0.0 (0-0); Nucleated Red Blood Cells % 0.1 % (0-0); RBC Red Blood Cell Count 4.39 M/uL (3.86-4.86); White Blood Count 12.10 thou/uL (4.3-10.9)
[2024-09-09 11:01] LABS: PT Prothrombin Time 12.3 SECONDS (10-13.0); PTT, Activated Partial Thromb 32.7 SECONDS (27.2-37.4); Protime INR 1.09
[2024-09-09] MEDS: IPRATROPIUM BROM 0.5MG/2.5ML NEB STA (11:04)
[2024-09-09] MEDS: ALBUTEROL 2.5 MG/3 ML NEB SOL NEB STA (11:05)
[2024-09-09 11:09] LABS: ALT/SGPT 30.0 U/L (13-56); AST/SGOT 25.0 U/L (15-37); Albumin 3.6 g/dL (3.4-5.0); Albumin/Globulin Ratio 1.1 (1.1-1.8); Alkaline Phosphatase 78.0 U/L (45-117); Anion Gap 9.0 mEq/L (5.0-15.0); BUN Blood Urea Nitrogen 17.0 mg/dL (7-18); Globulin 3.3 g/dL (2.3-3.5); Glucose Level 355.0 mg/dL (74-106); NT PRO-BNP 910.0 pg/mL (<125); Potassium 4.0 mEq/L (3.5-5.1); Troponin High Sensitivity 12.4 pg/mL (<58.9)
[2024-09-09 11:28] LABS: D-Dimer 0.408 FEUug/mL (0-0.500)
[2024-09-09 11:29] LABS: HDL Cholesterol 78.0 mg/dL (40-60); LDL Cholesterol, Calculated 44.0 mg/dL (<130); LDL Cholesterol,Calc NonReport 44.0
[2024-09-09] MEDS ORDERED: NA CHLORIDE 0.9% 2,000 ML ONE (11:30)
[2024-09-09] MEDS ORDERED: NA CHLORIDE 0.9% 100 ML ONE (11:30)
[2024-09-09] MEDS ORDERED: PIPERACIL/TAZO 3.375 GM VIAL IV ONE (11:31)
--- NOTE | 2024-09-09 11:36 | RAD REPORT ---
EXAMINATION: ONE VIEW CHEST XR CLINICAL INDICATION: DYSPNEA TECHNIQUE: Frontal chest projection is submitted. Examination is limited by patient positioning and t echnique. COMPARISON: 09/08/2024 FINDINGS: The lungs are diffusely emphysematous but grossly clear. The heart is normal in size. No displaced fr actures identified. Coronary calcification. IMPRESSION: COPD without an acute process suspected.
[2024-09-09 11:38] LABS: Blood O2 Saturation 95.7 % (92.0-98.5)
[2024-09-09] MEDS ORDERED: MORPHINE 2 MG/ML SYR ONE ×2 (12:35→15:30)
[2024-09-09] MEDS: ALBUTEROL 2.5 MG/3 ML NEB SOL NEB SCH (13:00)
[2024-09-09] MEDS: IPRATROPIUM BROM 0.5MG/2.5ML NEB SCH (13:00)
[2024-09-09 13:13] LABS: Blood Morphology Comment NOT SEEN (NOT SEEN); White Blood Cell Scan OK (OK)
[2024-09-09] MEDS ORDERED: NA CHLORIDE 0.9% 1,000 ML ONE (15:31)
[2024-09-09] MEDS ORDERED: HYDROCORTISONE SUC 100 MG INJ ONE (15:31)
[2024-09-09] MEDS ORDERED: Levofloxacin 750mg IV 750 MG/150 ML BAG IV ONE (15:31)
[2024-09-09] MEDS: Levofloxacin 750mg IV 750 MG/150 ML BAG IV SCH (15:45)
[2024-09-09] MEDS: NA CHLORIDE 0.9% 1,000 ML IV SCH (15:47)
[2024-09-09] MEDS: METHYLPREDNISOLONE 40 MG INJ IV SCH (15:49)
[2024-09-09] MEDS: MORPHINE 2 MG/ML SYR IV STA (15:50)
[2024-09-09] MEDS ORDERED: IPRATROPIUM BROM 0.5MG/2.5ML ONE (16:29)
[2024-09-09] MEDS ORDERED: Magnesium Sulfate 2gm IVPB 2 G/50 ML BAG IV ONE (16:29)
[2024-09-09] MEDS ORDERED: ALBUTEROL 2.5 MG/3 ML NEB SOL ONE (16:29)
[2024-09-09] MEDS: Magnesium Sulfate 2gm IVPB 2 G/50 ML BAG IV STA (17:00)
--- NOTE | 2024-09-09 18:30 | P.HP ---
Certification for Inpatient Patient admitted to: Inpatient With expected LOS: >2 Midnights Patient will require the following post-hospital care: None Practitioner: I am a practitioner with admitting privileges, knowledge of patient current condition, hospital course, and medical plan of care. Services: Services provided to patient in accordance with Admission requirements found in Title 42 Section 412.3 of the Code of Federal Regulations Patient History Date of Service: 09/09/24 Reason for admission: Acute COPD exacerbation History of Present Illness: Patient is a 68-year-old female who comes to the hospital with respiratory difficulties. Patient has been short of breath for the last 48 hours. Her clinical symptoms have gotten progressively worse. Patient came to the ER and was started on nebs, steroids, antibiotics. Patient also on O2 per protocol. Patient will be admitted to the hospital for acute COPD exacerbation and will continue with nebs, steroids, and antibiotics and reassess in AM. Will consult pulmonary as well. Patient will be admitted for inpatient hospitalization. Allergies diazepam [From Valium] Adverse Reaction (Verified 08/04/22 01:38) "makes me stupid, too strong for me" diphenhydramine [From Benadryl] Adverse Reaction (Verified 08/04/22 01:38) "turns my nerve inside out" lorazepam Adverse Reaction (Verified 08/04/22 01:38) stomach issue Home Medications: Albuterol Inhaler [Ventolin Inhaler*] 2 puff IH Q4HP PRN 08/04/22 Albuterol Neb [Proventil 0.083% Neb Soln] 1 amp NEB Q4HP PRN 08/04/22 Clopidogrel Bisulfate [Plavix*] 75 mg PO DAILY 08/04/22 Fluoxetine HCl [Prozac] 20 mg PO DAILY 08/04/22 Guaifenesin [Mucinex] 1,200 mg PO BID 08/04/22 Insulin Glargine,Hum.rec.anlog [Lantus] 10 unit SQ BID 08/04/22 Ipratropium/Albuterol Sulfate [Iprat-Albut 0.5-3(2.5) mg/3 ml] 1 amp NEB Q4HP PRN 08/04/22 Lamotrigine [Lamictal] 100 mg PO BID 08/04/22 Linagliptin [Tradjenta] 5 mg PO DAILY 08/04/22 Metoprolol Tartrate [Lopressor*] 25 mg PO BID 08/04/22 Roflumilast [Daliresp*] 500 mcg PO DAILY 08/04/22 Trazodone HCl [Desyrel] 100 mg PO BEDTIME 08/04/22 predniSONE [Prednisone*] 10 mg PO DAILY 08/04/22 Atorvastatin Calcium 1 tab PO BEDTIME 11/20/22 Insulin Aspart [Novolog Flexpen] See Protocol SQ BID 11/20/22 Cariprazine HCl [Vraylar] 3 mg PO DAILY 04/26/24 Amox/Clavulanate [Augmentin 500-125 mg Tab*] 500 mg PO BID #12 tab 04/28/24 Azithromycin Tab [Zithromax*] 250 mg PO DAILY #5 tab 04/28/24 predniSONE [Deltasone*] 10 mg PO DAILY #14 tab 04/28/24 Fluticasone Propion/Salmeterol [Wixela 250-50 Inhub] 1 inh IH DAILY 05/05/24 Tiotropium Br/Olodaterol HCl [Stiolto Respimat Inhaler (60)] 1 inh IH DAILY 05/05/24 Hydroxyzine HCl [Atarax] 20 mg PO BIDP PRN 09/10/24 Arformoterol Tartrate [Brovana] 15 mcg NEB BIDRESP #60 vial.neb 09/13/24 Cefdinir [Cefdinir*] 300 mg PO BID #14 cap 09/13/24 clonazePAM [Klonopin] 0.5 mg PO BIDP PRN #60 tab 09/13/24 predniSONE [Deltasone*] 10 mg PO DAILY #30 tab 09/13/24 - Past Medical/Surgical History Diabetic: Yes -: COPD -: HTN -: Diabetes mellitus type 2 -: CAD -: Depression -: bipolar -: anxiety -: neuropathy -: -: Stents Psychosocial/ Personal History: Patient is retired, lives with her daughter - Family History Father Notes: Patient is adopted Mother Notes: patient is adopted - Social History Smoking Status: Former smoker Alcohol use: No CD- Drugs: No Caffeine use: No Review of Systems 10-point ROS is otherwise unremarkable Physical Examination - Vital Signs Temperature: 98 F Blood Pressure: 150/80 Pulse: 80 Respirations: 18 Pulse Ox (%): 95 - Physical Exam General: Alert, In no apparent distress, Oriented x3 HEENT: Atraumatic, PERRLA, Mucous membr. moist/pink, EOMI, Sclerae nonicteric Neck: Supple, 2+ carotid pulse no bruit, No LAD, Without JVD or thyroid abnormality Respiratory: Diminished, Expiratory wheezes Cardiovascular: Regular rate/rhythm, Normal S1 S2, No murmurs Gastrointestinal: Normal bowel sounds, Soft and benign, Non-distended, No tenderness Musculoskeletal: No clubbing, No swelling, No tenderness Integumentary: No rashes Neurological: Normal gait, Normal speech, Normal strength at 5/5 x4 extr, Normal tone, Sensation intact, Cranial nerves 3-12 intact, Normal affect Lymphatics: No axilla or inguinal lymphadenopathy Assessment & Plan - Problems (Diagnosis) (1) COPD exacerbation Status: Acute (2) Diabetes mellitus type 2 in nonobese Status: Acute (3) Anxiety Status: Chronic (4) Coronary artery disease Status: Chronic Qualifiers: Coronary Disease-Associated Artery/Lesion type: [place] artery [place] vs. transplanted heart: [place] heart Associated angina: without angina Qualified Code(s): I25.10 - Atherosclerotic heart disease of [place] coronary artery without angina pectoris (5) HTN (hypertension) Status: Chronic Qualifiers: Hypertension type: primary hypertension Qualified Code(s): I10 - Essential (primary) hypertension (6) Tobacco abuse Status: Chronic - Plan -nebs, steroids, and antibiotics -O2 per protocol. -peak flow measurements -outpatient spirometry or pulmonary function testing -repeat chest x-ray -pulmonary consultation Discharge Plan: Home Plan to discharge in: Greater than 2 days - Advance Directives Does patient have a Living Will: No Does patient have a Durable POA for Healthcare: Yes - Code Status/Comfort Care Code Status Assessed: Yes Code Status: Full Code Critical Care: No Time Spent Managing PTS Care (In Minutes): 45
--- NOTE | 2024-09-09 20:56 | ER ---
Nurse's Notes [facility] Name: Miles Reyes Age: 68 yrs Sex: Female : 1955 Arrival Date: 09/09/2024 Time: 10:04 Bed 19 Private MD: Diagnosis: COPD/ Chronic obstructive pulmonary disease with (acute) exacerbation;Tobacco abuse;Acute and chronic respiratory failure with hypoxia Presentation: 09/09 10:15 Chief complaint: EMS states: TONED OUT FOR DIFFICULTY BREATHING. EMS REPORTS DAUGHTER dd2 STATED PT WAS D/C FROM HOSPITAL YESTERDAY AND CONTINUES TO HAVE TROUBLE BREATHING AFTER TAKING THE BREATHING TREATMENTS AND STEROIDS, PT IS ALSO ON 3.5 LMP NC O2 AT HOME. Coronavirus screen: At this time, the client does not indicate any symptoms associated with coronavirus-19. Ebola Screen: No symptoms or risks identified at this time. Initial Sepsis Screen: Does the patient meet any 2 criteria? RR > 20 per min. HR > 90 bpm. Does the patient have a suspected source of infection? No. Patient's initial sepsis screen is negative. Risk Assessment: Do you want to hurt yourself or someone else? Patient reports no desire to harm self or others. Onset of symptoms is unknown. 10:15 Method Of Arrival: EMS: [facility] dd2 10:15 Acuity: CONSTANTINO 3 dd2 10:19 Care prior to arrival: Medication(s) given: Albuterol Neb x 2, Atrovent Neb Normal dd2 saline infusion, 100ML SOLU-MEDROL 125 MG, PREDNISONE 20 MG IV initiated. 22 GA, in the right antecubital area, Glucose check: 287 Med neb given. Oxygen administered. via nasal cannula. Triage Assessment: 10:19 General: Appears in no apparent distress. uncomfortable, Behavior is calm, cooperative, dd2 appropriate for age. Pain: Denies pain. EENT: No deficits noted. Neuro: No deficits noted. Level of Consciousness is awake, alert, obeys commands, Oriented to person, place, time, situation, Appropriate for age. Cardiovascular: Denies chest pain, Patient's skin is warm and dry. Respiratory: Reports shortness of breath at rest on exertion cough that is non-productive, Airway is patent Respiratory effort is labored, Respiratory pattern is symmetrical, tachypnea Breath sounds are coarse bilaterally. Breath sounds with wheezes bilaterally. Onset: The symptoms/episode began/occurred at an unknown time. the patient has moderate shortness of breath. GI: No deficits noted. No signs and/or symptoms were reported involving the gastrointestinal system. : No deficits noted. No signs and/or symptoms were reported regarding the genitourinary system. Derm: No deficits noted. No signs and/or symptoms reported regarding the dermatologic system. Musculoskeletal: No deficits noted. No signs and/or symptoms reported regarding the musculoskeletal system. Historical: - Allergies: 10:19 Benadryl; dd2 10:19 Lorazepam; dd2 10:19 Valium; dd2 - PMHx: 10:19 CHF; Chronic obstructive lung disease; diabetes mellitus; Emphysema; dd2 Hypercholesterolemia; Hypertensive disorder; O2 dependent 2L-4L PRN; - PSHx: 10:19 section; Heart Stents; dd2 - Immunization history:: Adult Immunizations up to date. - Infectious Disease History:: Denies. - Social history:: Smoking status: Patient reports the use of cigarette tobacco products, smokes one-half pack cigarettes per day, Reported history of juuling and/or vaping. Screenin:23 [facility] ED Fall Risk Assessment (Adult) History of falling in the last 3 months, dd2 including since admission No falls in past 3 months (0 pts) Confusion or Disorientation No (0 pts) Intoxicated or Sedated No (0 pts) Impaired Gait No (0 pts) Mobility Assist Device Used Yes (1 pt) Altered Elimination No (0 pt) Score/Fall Risk Level 0 - 2 = Low Risk Oriented to surroundings, Maintained a safe environment, Educated pt \T\ family on fall prevention, incl call for assistance when getting out of bed, Assessed \T\ reinforced patient's understanding of fall precautions, Hourly rounding (assess needs \T\ fall precautionary measures) done. Abuse screen: Denies threats or abuse. Denies injuries from another. Nutritional screening: No deficits noted. Tuberculosis screening: No symptoms or risk factors identified. Assessment: 10:23 Reassessment: SEE TRIAGE ASSESSMENT FOR FULL ASSESSMENT. dd2 12:00 General: Appears uncomfortable, Behavior is calm, cooperative, appropriate for age. rg5 12:00 Pain: Denies pain. Neuro: Level of Consciousness is awake, alert, obeys commands, rg5 Oriented to person, place, time, situation. Cardiovascular: Patient's skin is warm and dry. Rhythm is sinus tachycardia. Respiratory: Airway is patent Trachea midline Respiratory effort is labored, Respiratory pattern is symmetrical, Breath sounds are coarse. GI: Abdomen is round non-distended, Abd is soft and non tender. : No signs and/or symptoms were reported regarding the genitourinary system. EENT: No signs and/or symptoms were reported regarding the EENT system. Derm: Skin is fragile, Skin is dry, Skin is dusky, Skin temperature is warm. Musculoskeletal: Circulation, motion, and sensation intact. Range of motion: intact in all extremities. 13:00 Reassessment: No changes from previously documented assessment. Patient and/or family rg5 updated on plan of care and expected duration. Pain level reassessed. Patient is alert, oriented x 3, equal unlabored respirations, skin warm/dry/pink. 14:07 Reassessment: No changes from previously documented assessment. Patient and/or family rg5 updated on plan of care and expected duration. Pain level reassessed. Patient is alert, oriented x 3, equal unlabored respirations, skin warm/dry/pink. 15:20 Reassessment: No changes from previously documented assessment. Patient and/or family rg5 updated on plan of care and expected duration. Pain level reassessed. Patient is alert, oriented x 3, equal unlabored respirations, skin warm/dry/pink. 16:25 Reassessment: Patient and/or family updated on plan of care and expected duration. Pain rg5 level reassessed. Patient is alert, oriented x 3, equal unlabored respirations, skin warm/dry/pink. 17:19 Reassessment: No changes from previously documented assessment. Patient and/or family rg5 updated on plan of care and expected duration. Pain level reassessed. Patient is alert, oriented x 3, equal unlabored respirations, skin warm/dry/pink. Vital Signs: 10:15 BP 126 / 80; Pulse 114; Resp 23; Temp 98.6; Pulse Ox 97% on 4 lpm NC; Weight 59.42 kg; dd2 10:45 BP 126 / 64; Pulse 115; Resp 23; Pulse Ox 98% on 5 lpm NC; dd2 11:30 BP 118 / 80; Pulse 114; Resp 22; Pulse Ox 99% on 4 lpm NC; dd2 12:01 BP 135 / 74; Pulse 115; Resp 22; Pulse Ox 98% on 4 lpm NC; dd2 13:00 BP 152 / 93; Pulse 114; Resp 20; Pulse Ox 100% on 6 lpm NC; rg5 14:05 BP 138 / 84; Pulse 114; Resp 20; Pulse Ox 97% on 4 lpm NC; rg5 16:00 BP 131 / 104; Pulse 106; Resp 19; Pulse Ox 98% on 4 lpm NC; rg5 17:16 BP 129 / 73; Pulse 108; Resp 19; Pulse Ox 97% on 4 lpm NC; rg5 19:40 BP 131 / 79; Pulse 95; Resp 18; Pulse Ox 96% on 4 lpm NC; Pain 0/10; rg5 19:40 Pain Scale: Adult rg5 Jose Manuel Coma Score: 10:23 Eye Response: spontaneous(4). Motor Response: obeys commands(6). Verbal Response: dd2 oriented(5). Total: 15. ED Course: 10:04 Patient arrived in ED. eb 10:06 Sumi Stokes PA-C is PHCP. sb4 10:06 Iván Mendez MD is Attending Physician. sb4 10:19 Triage completed. dd2 10:19 Arm band placed on right wrist. dd2 10:23 Patient has correct armband on for positive identification. Bed in low position. Call dd2 light in reach. Side rails up X 1. Client placed on continuous cardiac and pulse oximetry monitoring. NIBP monitoring applied. Door closed. Noise minimized. Pillow given. 10:23 No provider procedures requiring assistance completed. Maintain EMS IV. Dressing dd2 intact. Good blood return noted. Site clean \T\ dry. Gauge \T\ site: 22 G RAC. Flushed with 10 mL NS. Oxygen administration via nasal cannula \T\ 4L/min. 11:03 Brian Riley MD is Hospitalizing Provider. eb 12:28 Joce Hill RN is Primary Nurse. rg5 13:49 Inserted saline lock: 20 gauge in left hand, using aseptic technique. Flushed with 10 ls5 mL NS. 15:20 Provided Education on: needs for admit. rg5 15:20 Patient admitted, IV remains in place. intact, No redness/swelling at site. rg5 Administered Medications: 11:52 Drug: Piperacillin-Tazobactam IVPB 3.375 grams IVPB once over 60 mins; (mix in NS 100 dd2 mL) Route: IVPB; Infused Over: 60 mins; Site: right wrist; 13:00 Follow up: IV Status: Completed infusion; IV Intake: 100ml rg5 11:52 Drug: NS 0.9% IV (30 ml/kg) 30 ml/kg IV at bolus once; Sepsis Protocol; to be given as dd2 a bolus over 90 minutes Route: IV; Rate: bolus; Site: right wrist; 17:30 Follow up: IV Status: Completed infusion; IV Intake: 2000ml rg5 13:00 Drug: morphine IVP or IV 2 mg IVP once over 4 mins Route: IVP; Infused Over: 4 mins; rg5 Site: right antecubital; 14:14 Follow up: Response: No adverse reaction rg5 Medication: 10:23 VIS not applicable for this client. dd2 Intake: 13:00 IV: 100ml; Total: 100ml. rg5 17:30 IV: 2000ml; Total: 2100ml. rg5 Outcome: 10:19 Decision to Hospitalize by Provider. sb4 20:55 Patient left the ED. rg5 Signatures: Maribell Winters Sophia, PA-C PA-C sb4 Pranav Alberts ls5 Joce Hill RN RN rg5 ANTOINE YANCEY RN RN dd2
[2024-09-09] MEDS: METOPROLOL TAR 25 MG TAB PO SCH (21:18)
[2024-09-09] MEDS: lamoTRIgine 100 MG TAB PO SCH (21:18)
[2024-09-09] MEDS: ATORVASTATIN 40 MG TAB PO SCH (21:18)
[2024-09-09] MEDS: ACETAMINOPHEN 500 MG TAB PO PRN (21:23)
[2024-09-09] MEDS: INSULIN GLARGINE 100 UNIT/ML SQ SCH (22:00)
[2024-09-09] MEDS: TRAZODONE 50 MG TABLET PO SCH (23:21)
[2024-09-10] MEDS: ONDANSETRON 4 MG/2 ML VIAL IV PRN (04:16)
[2024-09-10] MEDS: HYDRALAZINE HCL 20 MG/ML VIAL IV PRN (04:16)
[2024-09-10] MEDS ORDERED: METOPROLOL TAR 25 MG TAB PO SCH (06:00)
[2024-09-10 06:57] LABS: HDL Cholesterol 82.0 mg/dL (40-60); LDL Cholesterol, Calculated 45.0 mg/dL (<130); LDL Cholesterol,Calc NonReport 45.0
[2024-09-10] MEDS: FUROSEMIDE 20 MG/ 2ML VIAL IV SCH (09:06)
[2024-09-10] MEDS: FLUOXETINE 20 MG CAP PO SCH (09:07)
[2024-09-10] MEDS: CLOPIDOGREL 75 MG TABLET PO SCH (09:07)
[2024-09-10] MEDS: ENOXAPARIN 40 MG/0.4 ML SQ SCH (12:00)
[2024-09-10] MEDS: INSULIN REGULAR (HUMAN) 100 UNIT/ML SQ SCH (20:37)
[2024-09-10] MEDS: MUCINEX DM 12HR.SR TAB PO PRN (21:03)
[2024-09-11 05:53] LABS: Anion Gap 4.2 mEq/L (5.0-15.0); BUN Blood Urea Nitrogen 22.0 mg/dL (7-18); Magnesium 2.3 mg/dL (1.6-2.4); Potassium 4.2 mEq/L (3.5-5.1)
[2024-09-11 05:58] LABS: Glucose Level 39.0 mg/dL (74-106)
--- NOTE | 2024-09-11 12:34 | ECHO ---
HEIGHT: 5 ft 6 in WEIGHT: 132 lb 3.2 oz DATE OF STUDY: 09/11/[address]: Brian Riley MD 2-DIMENSIONAL: YES M.MODE: YES DOPPLER: YES COLOR FLOW: YES TDS: YES PORTABLE: YES DEFINITY: NO BUBBLE STUDY: NO DIAGNOSIS: CONGESTIVE HEART FAILURE CARDIAC HISTORY: CATHERIZATION:YES SURGERY: NO PROSTHETIC VALVE: NO PACEMAKER: NO MEASUREMENTS (cm) DIASTOLIC (NORMALS) SYSTOLIC (NORMALS) IVSd 1.1 (0.6-1.2) LA Diam 2.7 (1.9-4.0) LVEF 50-55% LVIDd 4.2 (3.5-5.7) LVIDs 3.4 (2.0-3.5) %FS 19% LVPWd 1.1 (0.6-1.2) Ao Diam 2.5 (2.0-3.7) 2 DIMENSIONAL ASSESSMENT: RIGHT ATRIUM: NORMAL LEFT ATRIUM: NORMAL RIGHT VENTRICLE: NORMAL LEFT VENTRICLE: NORMAL TRICUSPID VALVE: MILD TRICUSPID REGURGITATION MITRAL VALVE: NORMAL PULMONIC VALVE: NORMAL AORTIC VALVE: NORMAL PERICARDIAL EFFUSION: NONE AORTIC ROOT: NORMAL LEFT VENTRICULAR WALL MOTION: NORMAL. DOPPLER/COLOR FLOW: NORMAL. COMMENTS: 1. NORMAL LEFT VENTRICULAR SYSTOLIC FUNCTION. LEFT VENTRICULAR EJECTION FRACTION 50-55%. NORMAL WALL MOTION. 2. NORMAL DIASTOLIC FUNCTION. 3. MILDLY ELEVATED FILLING PRESSURE. RIGHT ATRIAL PRESSURE 5-10 mmHg. TECHNOLOGIST: JAYDA VILLAR
--- NOTE | 2024-09-11 12:49 | P.CNS ---
Date of Consult: 09/11/24 Reason for Consult: COPD exacerbation Chief Complaint: COPD exacerbation History of Present Illness: Patient is 68 years of age she has terminal COPD got worse over the past 2 weeks compliant with her Trelegy has some cough congestion daughter at the bedside is very debilitated unable to walk could just put a few feet Allergies diazepam [From Valium] Adverse Reaction (Verified 08/04/22 01:38) "makes me stupid, too strong for me" diphenhydramine [From Benadryl] Adverse Reaction (Verified 08/04/22 01:38) "turns my nerve inside out" lorazepam Adverse Reaction (Verified 08/04/22 01:38) stomach issue Home Medications: Albuterol Inhaler [Ventolin Inhaler*] 2 puff IH Q4HP PRN 08/04/22 Albuterol Neb [Proventil 0.083% Neb Soln] 1 amp NEB Q4HP PRN 08/04/22 Clopidogrel Bisulfate [Plavix*] 75 mg PO DAILY 08/04/22 Fluoxetine HCl [Prozac] 20 mg PO DAILY 08/04/22 Guaifenesin [Mucinex] 1,200 mg PO BID 08/04/22 Insulin Glargine,Hum.rec.anlog [Lantus] 10 unit SQ BID 08/04/22 Ipratropium/Albuterol Sulfate [Iprat-Albut 0.5-3(2.5) mg/3 ml] 1 amp NEB Q4HP PRN 08/04/22 Lamotrigine [Lamictal] 100 mg PO BID 08/04/22 Linagliptin [Tradjenta] 5 mg PO DAILY 08/04/22 Metoprolol Tartrate [Lopressor*] 25 mg PO BID 08/04/22 Roflumilast [Daliresp*] 500 mcg PO DAILY 08/04/22 Trazodone HCl [Desyrel] 100 mg PO BEDTIME 08/04/22 predniSONE [Prednisone*] 10 mg PO DAILY 08/04/22 Atorvastatin Calcium 1 tab PO BEDTIME 11/20/22 Insulin Aspart [Novolog Flexpen] See Protocol SQ BID 11/20/22 Cariprazine HCl [Vraylar] 3 mg PO DAILY 04/26/24 Amox/Clavulanate [Augmentin 500-125 mg Tab*] 500 mg PO BID #12 tab 04/28/24 Azithromycin Tab [Zithromax*] 250 mg PO DAILY #5 tab 04/28/24 predniSONE [Deltasone*] 10 mg PO DAILY #14 tab 04/28/24 Fluticasone Propion/Salmeterol [Wixela 250-50 Inhub] 1 inh IH DAILY 05/05/24 Tiotropium Br/Olodaterol HCl [Stiolto Respimat Inhaler (60)] 1 inh IH DAILY 05/05/24 Hydroxyzine HCl [Atarax] 20 mg PO BIDP PRN 09/10/24 - Past Medical/Surgical History Diabetic: Yes -: COPD -: HTN -: Diabetes mellitus type 2 -: CAD -: Depression -: bipolar -: anxiety -: neuropathy -: -: Stents Psychosocial/ Personal History: Patient is retired, lives with her daughter - Family History Father Notes: Patient is adopted Mother Notes: patient is adopted - Social History Smoking Status: Current every day smoker Alcohol use: No CD- Drugs: No Caffeine use: No Review of Systems General: Weakness Respiratory: Cough, Shortness of Breath Physical Examination Temp Pulse Resp BP Pulse Ox 97.8 F 100 H 18 121/63 91 09/11/24 12:00 09/11/24 12:00 09/11/24 12:00 09/11/24 12:00 09/11/24 12:00 General: Alert, Oriented x3 Respiratory: Diminished, Expiratory wheezes Cardiovascular: Regular rate/rhythm - Problems (1) COPD exacerbation Current Visit: No Status: Acute Plan: Patient is 68 years of age admitted with COPD exacerbation she has terminal COPD which is becoming progressively weaker will need outpatient physical therapy nursing home social worker consult for portable home oxygen concentrator consider spironolactone if needed as needed patient is compliant with her Trelegy reduce her dose of steroids patient has significant anxiety does not qualify for NIV pCO2 is normal has been denied in the past
[2024-09-11] MEDS: BUSPIRONE HCL 5 MG TABLET PO ONE (14:31)
[2024-09-11] MEDS: ARFORMOTEROL TARTRATE 15 MCG/2 ML VIAL.NEB NEB SCH (19:10)
[2024-09-11] MEDS: METHYLPREDNISOLONE 40 MG INJ IV SCH (21:02)
[2024-09-12 04:18] VITALS: BMI 21.2
[2024-09-12] MEDS: hydrOXYzine HCL 25 MG TAB PO PRN (21:00)
[2024-09-13 14:44] VITALS: O2SAT 95
[2024-09-20 04:54] VITALS: BP 150/80; TEMP 98
== END 2024-09-13 16:30 | disposition home or self-care (01) | DRG 189 ==
LOC: ER 10:05 → ERHOLD 10:24 → 2ND 19:42
PROVIDERS: ADMIT Hospitalist; ATTEND Hospitalist
PROC: 4A033R1 Measurement of Arterial Saturation, Peripheral, Percutaneous Approach (ICD-10-PCS; principal; 2024-09-09)
DX: J96.21 Acute and chronic respiratory failure with hypoxia (principal); J44.1 Chronic obstructive pulmonary disease with (acute) exacerbation; E87.21 Acute metabolic acidosis; I10 Essential (primary) hypertension; E78.00 Pure hypercholesterolemia, unspecified; E11.40 Type 2 diabetes mellitus with diabetic neuropathy, unspecified; I25.10 Atherosclerotic heart disease of native coronary artery without angina pectoris; F17.210 Nicotine dependence, cigarettes, uncomplicated; Z79.4 Long term (current) use of insulin; Z95.5 Presence of coronary angioplasty implant and graft; Z88.8 Allergy status to other drugs, medicaments and biological substances; Z79.52 Long term (current) use of systemic steroids; Z79.02 Long term (current) use of antithrombotics/antiplatelets; Z79.899 Other long term (current) drug therapy
CPT/HCPCS: 36415; 36600; 71045; 80048; 80053; 80061; 80076; 82805; 82947; 83605; 83735; 83880; 84100; 84484; 85025; 85379; 85610; 85730; 87040; 93005; 93306; 94640; 94760; 96365; 96366; 96368; 96375; 97116; 97161; 97530; 99285; J0360; J1650; J1720; J1815; J1938; J2270; J2405; J2543; J2919; J3475; J7030; J7605; J7613; J7644

== ENCOUNTER 2024-10-06 19:00 | Inpatient (IN) | payer OTHER ==
--- NOTE | 2024-10-06 19:59 | RAD REPORT ---
EXAM: Chest Single View HISTORY: 68 years Female CHEST PAIN COMPARISON: 09/09/2024 FINDINGS: LUNGS/PLEURA: The lungs are clear. No pleural effusions or pneumothorax. No pulmonary edema. Emphysem a. CARDIAC/MEDIASTINUM: The cardiac silhouette is within normal limits. UPPER ABDOMEN: No significant abnormality. BONES: No acute abnormality. LINES/TUBES/OTHER: N/A IMPRESSION: Emphysema without superimposed acute process.
[2024-10-06 20:08] LABS: D-Dimer 0.572 FEUug/mL (0-0.500); PT Prothrombin Time 10.8 SECONDS (10-13.0); PTT, Activated Partial Thromb 25.5 SECONDS (27.2-37.4); Protime INR 0.95
[2024-10-06 20:10] LABS: ALT/SGPT 29 U/L (13-56); AST/SGOT 18 U/L (15-37); Albumin 3.2 g/dL (3.4-5.0); Albumin/Globulin Ratio 1.0 (1.1-1.8); Alkaline Phosphatase 65 U/L (45-117); Anion Gap 9.1 mEq/L (5.0-15.0); BUN Blood Urea Nitrogen 20 mg/dL (7-18); Globulin 3.2 g/dL (2.3-3.5); Glucose Level 290 mg/dL (74-106); Lipase 73 U/L (13-75); Magnesium 2.1 mg/dL (1.6-2.4); NT PRO-BNP 1031 pg/mL (<125); Potassium 4.1 mEq/L (3.5-5.1); Troponin High Sensitivity 9.6 pg/mL (<58.9)
[2024-10-06] MEDS ORDERED: CEFEPIME 2 GM VIAL ONE (20:10)
[2024-10-06] MEDS ORDERED: IPRATROPIUM BROM 0.5MG/2.5ML ONE ×2 (20:10→23:55)
[2024-10-06 20:11] LABS: Bilirubin Indirect, Calculated 0.0 mg/dL (0.2-0.8)
[2024-10-06] MEDS ORDERED: VANCOMYCIN 1 GM/VIAL ONE (20:11)
[2024-10-06] MEDS ORDERED: NA CHLORIDE 0.9% 250 ML ONE (20:11)
[2024-10-06] MEDS ORDERED: GUAIFENESIN/DM 5 ML UCUP ONE (20:11)
[2024-10-06] MEDS ORDERED: NA CHLORIDE 0.9% 100 ML ONE (20:11)
[2024-10-06 20:24] LABS: Arterial Blood Carboxyhemoglob 4.3 % (0.0-1.5); Blood Gas Oxyhemoglobin 90.3 % (94.0-97.0); Blood O2 Saturation 94.6 % (92.0-98.5)
[2024-10-06 20:25] LABS: Blood Gas Inspired Oxygen 100.0 %
--- NOTE | 2024-10-06 20:29 | RAD REPORT ---
EXAMINATION: Head Brain Wo Cont CLINICAL INDICATION: Female, 68 years old.CONFUSED TECHNIQUE: Axial CT images from the skull base to the vertex without intravenous contrast. Coronal an d sagittal reformatted images were created from the data set. One or more of the following dose reduction techniques were used: Automated exposure control, adjustment of the mA and/or kV according to patient size, and/or iterative reconstruction. Unless otherwise specified, incidental findings do not require dedicated imaging follow-up. [id number]. COMPARISON: No prior exams FINDINGS: INTRACRANIAL: No acute intracranial hemorrhage. No acute large vascular territory infarct. No hydroce phalus. No mass effect or midline shift. Mild chronic small vessel ischemic changes. VASCULATURE: No visualized abnormalities in the arteries or dural venous sinuses. SCALP/SKULL: No calvarial fracture identified. No acute soft tissue abnormality. SINUSES: The visualized paranasal sinuses are mostly clear. No significant mastoid fluid. IMPRESSION: No acute intracranial abnormality.
--- NOTE | 2024-10-06 21:21 | RAD REPORT ---
EXAMINATION: CTA CHEST PE CLINICAL INDICATION: Female, 68 years old. DYSPNEA TECHNIQUE: This examination was performed according to an angiographic protocol with 3D post-processi ng. This involves 3D reconstructions, MIPs, volume rendered images and/or shaded surface rendering. One or more of the following dose reduction techniques were used: Automated exposure control, adjustm ent of the mA and/or kV according to patient size, and/or iterative reconstruction. Unless otherwise specified, incidental findings do not require dedicated imaging follow-up. [id number]. COMPARISON: 04/18/2022 FINDINGS: LOWER NECK: Visualized thyroid gland and soft tissues are normal. MEDIASTINUM AND LYMPH NODES: No mediastinal mass or fluid collection. Normal size mediastinal, hilar, and axillary lymph nodes. THORACIC AORTA: No thoracic aortic aneurysm. Atherosclerotic changes are present. PULMONARY ARTERIES: Enlarged main pulmonary arteries could indicate pulmonary artery hypertension. No pulmonary emboli identified. HEART: Normal heart size. No coronary calcifications.Small pericardial effusion. LUNGS AND AIRWAYS: Emphysema. No acute airspace disease. No suspicious pulmonary nodules. Scattered 4 mm and smaller pulmonary nodules noted which are of doubtful significance and do not require follow-up. PLEURA: No pleural effusions. No pneumothorax. OSSEOUS STRUCTURES AND CHEST WALL: No fracture or suspicious osseous lesions. UPPER ABDOMEN: No acute abnormalities. Benign appearing renal lesions, likely cysts. Unchanged benign left adrenal nodule. IMPRESSION: Negative for pulmonary embolism. No other acute process identified in the chest.
[2024-10-06] MEDS ORDERED: ACETAMINOPHEN 500 MG TAB ONE (21:25)
[2024-10-06] MEDS ORDERED: CYCLOBENZAPRINE 10 MG TAB ONE (21:25)
--- NOTE | 2024-10-06 22:11 | ER ---
Nurse's Notes [facility] Name: Miles Reyes Age: 68 yrs Sex: Female : 1955 Arrival Date: 10/06/2024 Time: 19:00 Bed 20 Private MD: Diagnosis: Acute COPD exacerbation,;COPD/ Chronic obstructive pulmonary disease with (acute) exacerbation Presentation: 10/06 19:42 Chief complaint: Patient states: Pt to ED via EMS c/o of respiratory distress due to mf3 possible COPD exacerbation. Pt on 3.5L at home at baseline. EMS found pt with O2 sat at 73%. Upon arrival pt is at 95% at 3.5L. Pt a/o 4. Coronavirus screen: Client denies travel out of the [place] in the last 14 days. shortness of breath. Ebola Screen: No symptoms or risks identified at this time. Initial Sepsis Screen: Does the patient meet any 2 criteria? RR > 20 per min. HR > 90 bpm. Yes Does the patient have a suspected source of infection? No. Patient's initial sepsis screen is negative. Risk Assessment: Do you want to hurt yourself or someone else? Patient reports no desire to harm self or others. Onset of symptoms was October 06, 2024. 19:42 Method Of Arrival: EMS: [place] [id number] 19:42 Acuity: CONSTANTINO 3 mf3 Triage Assessment: 19:46 General: Appears distressed, uncomfortable, Behavior is calm, cooperative, appropriate mf3 for age. Pain: Complains of pain in scalp Pain currently is 5 out of 10 on a pain scale. Neuro: Level of Consciousness is awake, alert, obeys commands, Oriented to person, place, time, situation, Appropriate for age Cardiovascular: Capillary refill Rhythm is sinus tachycardia. Respiratory: Reports shortness of breath at rest labored breathing since Labored breathing that started today. Onset: The symptoms/episode began/occurred today, the patient has moderate shortness of breath. GI: No signs and/or symptoms were reported involving the gastrointestinal system. : No signs and/or symptoms were reported regarding the genitourinary system. Derm: Skin is fragile, is thin, Skin is normal. Musculoskeletal: No signs and/or symptoms reported regarding the musculoskeletal system. Historical: - Allergies: 19:46 Benadryl; mf3 19:46 Lorazepam; mf3 19:46 Valium; mf3 - PMHx: 19:46 CHF; Chronic obstructive lung disease; Emphysema; diabetes mellitus; Hypertensive mf3 disorder; Hypercholesterolemia; O2 dependent 2L-4L PRN; - PSHx: 19:46 section; Heart Stents; mf3 - Immunization history:: Adult Immunizations up to date. - Infectious Disease History:: Denies. - Social history:: Smoking status: Patient reports the use of cigarette tobacco products, smokes one-half pack cigarettes per day. - Family history:: not pertinent. Screenin:49 [facility] ED Fall Risk Assessment (Adult) History of falling in the last 3 months, mf3 including since admission No falls in past 3 months (0 pts) Confusion or Disorientation No (0 pts) Intoxicated or Sedated No (0 pts) Impaired Gait Yes (1 pt) Mobility Assist Device Used Yes (1 pt) Altered Elimination No (0 pt) Score/Fall Risk Level 0 - 2 = Low Risk Oriented to surroundings, Maintained a safe environment, Hourly rounding (assess needs \T\ fall precautionary measures) done, Used ambulatory aids as needed (educated on \T\ assisted with). Abuse screen: Denies threats or abuse. Denies injuries from another. Nutritional screening: No deficits noted. Tuberculosis screening: No symptoms or risk factors identified. Never had TB. Assessment: 19:49 General: Appears distressed, uncomfortable, Behavior is calm, cooperative, appropriate mf3 for age. Neuro: Level of Consciousness is awake, alert, obeys commands, Oriented to person, place, time, situation, Appropriate for age. Cardiovascular: Capillary refill < 3 seconds Rhythm is sinus tachycardia. Respiratory: Airway is patent Respiratory effort is labored, Breath sounds are coarse bilaterally. Vital Signs: 19:42 BP 125 / 80; Pulse 99; Resp 21; Temp 97.9; Pulse Ox 96% on 3 lpm NC; Weight 60.33 kg; mf3 Height 5 ft. 6 in. ; Pain 4/10; 20:33 BP 137 / 74; Pulse 94; Resp 14; Pulse Ox 100% on 3 lpm NC; mf3 21:30 BP 147 / 72; Pulse 93; Resp 21; Temp 97.5; Pulse Ox 99% on 3 lpm NC; mf3 22:30 BP 134 / 63; Pulse 87; Resp 25; Pulse Ox 97% on R/A; mf3 23:12 BP 136 / 70; Pulse 98; Resp 22; Pulse Ox 98% on 2 lpm NC; Pain 0/10; tb4 19:42 Body Mass Index 21.47 (60.33 kg, 167.64 cm) mf3 19:42 Pain Scale: Adult mf3 23:12 Pain Scale: Adult tb4 Vitals: 19:49 Cardiac Rhythm Assessment Sinus tach. mf3 [place] Coma Score: 19:49 Eye Response: spontaneous(4). Motor Response: obeys commands(6). Verbal Response: mf3 oriented(5). Total: 15. 22:14 Eye Response: spontaneous(4). Motor Response: obeys commands(6). Verbal Response: sp4 oriented(5). Total: 15. ED Course: 19:18 Patient arrived in ED. [id number] 19:19 Elier Chisholm MD is Attending Physician. sp4 19:23 Umu Zuniga, RN is Primary Nurse. mf3 19:36 EKG done, by ED staff, reviewed by Elier Chisholm MD. oe 19:45 Initial lab(s) drawn, by ED staff, sent to lab. First set of blood cultures drawn by ED ts3 staff, Second set of blood cultures drawn by ED staff. 19:46 Triage completed. mf3 19:46 Arm band placed on left wrist. mf3 19:49 Inserted saline lock: 20 gauge in right hand, using aseptic technique. Blood collected. mf3 Flushed with 10 mL NS. 19:49 Patient has correct armband on for positive identification. Bed in low position. Call 3 light in reach. Side rails up X2. Provided Education on: Pt educated on POC . 19:54 Troponin HS Sent. mf3 19:54 Ptt, Activated Sent. mf3 19:54 PT-INR Sent. mf3 19:54 NT PRO-BNP Sent. mf3 19:54 Magnesium Sent. mf3 19:54 Lipase Sent. mf3 19:54 Hepatic Function Sent. mf3 19:54 D-Dimer Sent. mf3 19:54 CPK Sent. mf3 19:54 CBC with Diff Sent. mf3 19:54 Blood Culture Adult (2) Sent. mf3 19:54 BMP Sent. mf3 19:56 XRAY CXR (1 view) In Process Unspecified. EDMS 20:17 CT Head Brain wo Cont In Process Unspecified. EDMS 21:06 CT Chest For PE Angio In Process Unspecified. EDMS 22:10 Ger Diehl MD is Hospitalizing Provider. sp4 10/07 00:23 No provider procedures requiring assistance completed. Patient admitted, IV remains in ha1 place. Administered Medications: 10/06 20:30 Drug: vancoMYCIN IVPB 1 grams IVPB once over 2 hrs Route: IVPB; Infused Over: 2 hrs; mf3 Site: right hand; 22:15 Follow up: Response: No adverse reaction; IV Status: Completed infusion; IV Intake: mf3 250ml 20:31 Drug: Ipratropium Inhalation Aerosol 0.5 mg Inhalation once; Every 20 min for a total mf3 of 3 treatments x3 Route: Inhalation; 20:31 Drug: Dextromethorphan-Guaifenesin PO Liquid 10 mg-100 mg/5 mL 10 ml PO once Route: PO; mf3 21:44 Follow up: Response: No adverse reaction mf3 20:32 Drug: Cefepime IVPB 2 grams IVPB at 200 ml/hr once over 30 mins; (mix in NS 100 mL) mf3 Route: IVPB; Rate: 200 ml/hr; Infused Over: 30 mins; Site: right hand; 21:43 Follow up: IV Status: Completed infusion; IV Intake: 100ml mf3 21:30 Drug: Cyclobenzaprine PO 10 mg PO once Route: PO; mf3 21:43 Follow up: Response: No adverse reaction mf3 21:30 Drug: Acetaminophen PO 1000 mg PO once Route: PO; mf3 21:43 Follow up: Response: No adverse reaction mf3 10/07 00:05 Drug: Ipratropium Inhalation Aerosol 0.5 mg Inhalation once Route: Inhalation; ha1 00:24 Follow up: Response: No adverse reaction tb4 00:05 Drug: Albuterol Inhalation 2.5 mg Inhalation once Route: Inhalation; ha1 00:24 Follow up: Response: No adverse reaction tb4 Medication: 10/06 19:49 VIS not applicable for this client. mf3 Intake: 21:43 IV: 100ml; Total: 100ml. mf3 22:15 IV: 250ml; Total: 350ml. mf3 Outcome: 22:11 Decision to Hospitalize by Provider. sp4 10/07 00:23 Admitted to Med/surg accompanied by tech, via wheelchair, room 213, with chart, ha1 Condition: stable Instructed on the need for admit, Demonstrated understanding of instructions, 00:26 Patient left the ED. tb4 Signatures: Dispatcher [employer] EDMS Xavier Arora Jennifer jj6 Asiya Campo, RN RN ha1 Elier Chisholm MD MD sp4 Odalys Stokes RN RN tb4 Diann Dash 3 Umu Zuniga RN RN mf3
--- NOTE | 2024-10-06 22:11 | EDPHYS ---
Physician Documentation [facility] Name: Miles Reyes Age: 68 yrs Sex: Female : 1955 Arrival Date: 10/06/2024 Time: 19:00 Bed 20 Private MD: ED Physician Elier Chisholm HPI: 10/06 19:19 This 68 yrs old Female presents to ER via Unassigned with complaints of sp4 Shortness Of Breath. 22:11 68-year-old female with terminal COPD on home oxygen 3 L [id number] presents with sp4 EMS for worsening dyspnea. EMS circulation assistant states patient's daughter reported some degree of confusion as well. Last admission here for COPD exacerbation 09/11/2024. Patient denied fever or purulent sputum. Patient's medications include albuterol inhaler 2 puffs every 4 hours, nebulized albuterol every 4 hours as needed, clopidogrel 75 mg daily, duloxetine 20 mg daily, guaifenesin 1200 mg twice daily, insulin glargine 10 units subcu twice daily, ipratropium nebulized every 4 hours as needed, Lamictal 100 mg p.o. twice daily, linagliptin 5 mg daily, metoprolol 25 mg p.o. twice daily, Roflumilast 500 mcg p.o. daily, trazodone 100 mg p.o. bedtime, prednisone 10 mg p.o. daily, atorvastatin before bedtime, aspart insulin twice daily, cariprazine 3 mg p.o. daily, prednisone 10 mg p.o. daily, fluticasone salmeterol inhaled daily, tiotropium olodaterol inhaled daily, hydroxyzine 20 mg p.o. twice daily. 22:14 Past medical history positive for COPD, hypertension, diabetes mellitus type 2, CAD, sp4 depression, bipolar disorder, anxiety, neuropathy, , and cardiac stents.. Historical: - Allergies: 19:46 Benadryl; mf3 19:46 Lorazepam; mf3 19:46 Valium; mf3 - PMHx: 19:46 CHF; Chronic obstructive lung disease; Emphysema; diabetes mellitus; Hypertensive mf3 disorder; Hypercholesterolemia; O2 dependent 2L-4L PRN; - PSHx: 19:46 section; Heart Stents; mf3 - Immunization history:: Adult Immunizations up to date. - Infectious Disease History:: Denies. - Social history:: Smoking status: Patient reports the use of cigarette tobacco products, smokes one-half pack cigarettes per day. - Family history:: not pertinent. ROS: 22:14 Constitutional: Negative for fever, chills, and weight loss, positive for dyspnea sp4 positive for cough positive for wheezing 22:14 All other systems are negative, Exam: 20:01 ECG was reviewed by the Attending Physician. EKG at 1929 sinus tachycardia rate 101 sp4 right atrial enlargement. 22:14 Constitutional: This is a well developed, well nourished patient who is awake, alert, sp4 and in no acute distress. Head/Face: Normocephalic, atraumatic. Eyes: Pupils equal round and reactive to light, extra-ocular motions intact. Lids and lashes normal. Conjunctiva and sclera are not injected. Cornea within normal limits. Periorbital areas with no swelling, redness, or edema. ENT: Nares patent. No nasal discharge, no septal abnormalities noted. Tympanic membranes are normal and external auditory canals are clear. Oropharynx with no redness, swelling, or masses, exudates, or evidence of obstruction, uvula midline. Mucous membranes moist. Neck: Trachea midline, no thyromegaly or masses palpated, and no cervical lymphadenopathy. Supple, full range of motion without nuchal rigidity, or vertebral point tenderness. Chest/axilla: Normal chest wall appearance and motion. Nontender with no deformity. No lesions are appreciated. Cardiovascular: Regular rate and rhythm with a normal S1 and S2. No gallops, murmurs, or rubs. No pulse deficits. Respiratory: Lungs have equal breath sounds bilaterally, clear to auscultation and percussion. No rales, rhonchi or wheezes noted. No increased work of breathing, no retractions or nasal flaring. Abdomen/GI: Soft, with normal bowel sounds. No distension or tympany. No guarding or rebound. No evidence of tenderness throughout. Back: No spinal tenderness. No costovertebral tenderness. Skin: Warm, dry with normal turgor. Normal color with no rashes, no lesions, and no evidence of cellulitis. MS/ Extremity: Pulses equal, no cyanosis. Neurovascular intact. Full, normal range of motion. Neuro: Awake and alert, GCS 15, oriented to person, place, time, and situation. Cranial nerves II-XII grossly intact. Motor strength 5/5 in all extremities. Sensory grossly intact. Psych: Awake, alert, with orientation to person, place and time. Behavior, mood, and affect are within normal limits Vital Signs: 19:42 BP 125 / 80; Pulse 99; Resp 21; Temp 97.9; Pulse Ox 96% on 3 lpm NC; Weight 60.33 kg; mf3 Height 5 ft. 6 in. ; Pain 4/10; 20:33 BP 137 / 74; Pulse 94; Resp 14; Pulse Ox 100% on 3 lpm NC; mf3 21:30 BP 147 / 72; Pulse 93; Resp 21; Temp 97.5; Pulse Ox 99% on 3 lpm NC; mf3 22:30 BP 134 / 63; Pulse 87; Resp 25; Pulse Ox 97% on R/A; mf3 23:12 BP 136 / 70; Pulse 98; Resp 22; Pulse Ox 98% on 2 lpm NC; Pain 0/10; tb4 19:42 Body Mass Index 21.47 (60.33 kg, 167.64 cm) mf3 19:42 Pain Scale: Adult mf3 23:12 Pain Scale: Adult tb4 [place] Coma Score: 19:49 Eye Response: spontaneous(4). Motor Response: obeys commands(6). Verbal Response: mf3 oriented(5). Total: 15. 22:14 Eye Response: spontaneous(4). Motor Response: obeys commands(6). Verbal Response: sp4 oriented(5). Total: 15. MDM: 22:03 ED course: COMPARISON: 04/18/2022 FINDINGS: LOWER NECK: Visualized thyroid gland and sp4 soft tissues are normal. MEDIASTINUM AND LYMPH NODES: No mediastinal mass or fluid collection. Normal size mediastinal, hilar, and axillary lymph nodes. THORACIC AORTA: No thoracic aortic aneurysm. Atherosclerotic changes are present. PULMONARY ARTERIES: Enlarged main pulmonary arteries could indicate pulmonary artery hypertension. No pulmonary emboli identified. HEART: Normal heart size. No coronary calcifications.Small pericardial effusion. LUNGS AND AIRWAYS: Emphysema. No acute airspace disease. No suspicious pulmonary nodules. Scattered 4 mm and smaller pulmonary nodules noted which are of doubtful significance and do not require follow-up. PLEURA: No pleural effusions. No pneumothorax. OSSEOUS STRUCTURES AND CHEST WALL: No fracture or suspicious osseous lesions. UPPER ABDOMEN: No acute abnormalities. Benign appearing renal lesions, likely cysts. Unchanged benign left adrenal nodule. IMPRESSION: Negative for pulmonary embolism. No other acute process identified in the chest. . 22:09 ED course: COMPARISON: No prior exams FINDINGS: INTRACRANIAL: No acute intracranial sp4 hemorrhage. No acute large vascular territory infarct. No hydrocephalus. No mass effect or midline shift. Mild chronic small vessel ischemic changes. VASCULATURE: No visualized abnormalities in the arteries or dural venous sinuses. SCALP/SKULL: No calvarial fracture identified. No acute soft tissue abnormality. SINUSES: The visualized paranasal sinuses are mostly clear. No significant mastoid fluid. IMPRESSION: No acute intracranial abnormality. . 22:10 ED course: HISTORY: 68 years Female CHEST PAIN COMPARISON: 09/09/2024 FINDINGS: sp4 LUNGS/PLEURA: The lungs are clear. No pleural effusions or pneumothorax. No pulmonary edema. Emphysema. CARDIAC/MEDIASTINUM: The cardiac silhouette is within normal limits. UPPER ABDOMEN: No significant abnormality. BONES: No acute abnormality. LINES/TUBES/OTHER: N/A IMPRESSION: Emphysema without superimposed acute process. . 22:11 Medical Screening Exam initiated sp4 22:15 Differential diagnosis: Anemia Anxiety Reaction asthma, Bronchitis CHF exacerbation, sp4 Chronic Obstructive Pulmonary Disease reactive airway disease, Sepsis Unstable Angina. Data reviewed: vital signs, nurses notes, EMS record, old medical records, lab test result(s), EKG, radiologic studies, CT scan, plain films. Consideration of Admission/Observation Patient was admitted/placed on observation. Escalation of care including admission/observation considered. Management of patient was discussed with the following: Hospitalist: Admit team . 10/06 19:20 Order name: BMP; Complete Time: 20:33 [facility] 10/06 19:20 Order name: Blood Culture Adult (2) 4 10/06 19:20 Order name: CBC with Diff sp4 10/06 19:20 Order name: CPK; Complete Time: 20:33 4 10/06 19:20 Order name: D-Dimer; Complete Time: 20:33 [facility] 10/06 19:20 Order name: Hepatic Function; Complete Time: 20:33 sp4 10/06 19:20 Order name: Lipase; Complete Time: 20:33 sp4 10/06 19:20 Order name: Magnesium; Complete Time: 20:33 sp4 10/06 19:20 Order name: NT PRO-BNP; Complete Time: 20:33 sp4 10/06 19:20 Order name: PT-INR; Complete Time: 20:33 sp4 10/06 19:20 Order name: Ptt, Activated; Complete Time: 20:33 sp4 10/06 19:20 Order name: Troponin HS; Complete Time: 20:33 sp4 10/06 19:20 Order name: ABG; Complete Time: 20:33 sp4 10/06 19:21 Order name: UA W/ Microscopic sp4 10/06 19:27 Order name: Lactate w/ 2H reflex if indic.; Complete Time: 20:33 sp4 10/06 20:15 Order name: Ghost Lactate-NO COLLECT Timer; Complete Time: 22:33 EDMS 10/06 22:58 Order name: CBC with Automated Diff EDMS 10/06 22:58 Order name: CBC with Automated Diff EDMS 10/06 22:58 Order name: CBC with Automated Diff EDMS 10/06 22:58 Order name: CBC with Automated Diff EDMS 10/06 22:58 Order name: Comprehensive Metabolic Panel EDMS 10/06 22:58 Order name: Comprehensive Metabolic Panel EDMS 10/06 22:58 Order name: Comprehensive Metabolic Panel EDMS 10/06 22:58 Order name: Comprehensive Metabolic Panel EDMS 10/06 22:58 Order name: Magnesium EDMS 10/06 22:58 Order name: Magnesium EDMS 10/06 22:58 Order name: Magnesium EDMS 10/06 22:58 Order name: Magnesium EDMS 10/06 23:10 Order name: Lactate Sepsis 2 HR Follow-up EDMS 10/06 19:20 Order name: XRAY CXR (1 view); Complete Time: 20:33 sp4 10/06 19:28 Order name: CT Head Brain wo Cont; Complete Time: 20:33 sp4 10/06 20:34 Order name: CT Chest For PE Angio; Complete Time: 21:54 sp4 10/06 19:20 Order name: Call RT; Complete Time: 20:31 sp4 10/06 19:20 Order name: Cardiac monitoring; Complete Time: 19:38 sp4 10/06 19:20 Order name: EKG - Nurse/Tech; Complete Time: 19:38 sp4 10/06 19:20 Order name: IV Saline Lock; Complete Time: 19:45 sp4 10/06 19:20 Order name: Labs collected and sent; Complete Time: 19:45 sp4 10/06 19:20 Order name: O2 Per Protocol; Complete Time: :45 sp4 10/06 19:20 Order name: O2 Sat Monitoring; Complete Time: :45 sp4 EC: Rate is 101 beats/min. Rhythm is regular, Normal Sinus Rhythm. QRS [place] is Normal. [place] sp4 interval is normal. QRS interval is normal. QT interval is normal. No Q waves. T waves are Normal. No ST changes noted. Clinical impression: No evidence of ischemia. Interpreted by me. Reviewed by me. Administered Medications: 20:30 Drug: vancoMYCIN IVPB 1 grams IVPB once over 2 hrs Route: IVPB; Infused Over: 2 hrs; 3 Site: right hand; 22:15 Follow up: Response: No adverse reaction; IV Status: Completed infusion; IV Intake: mf3 250ml 20:31 Drug: Ipratropium Inhalation Aerosol 0.5 mg Inhalation once; Every 20 min for a total mf3 of 3 treatments x3 Route: Inhalation; 20:31 Drug: Dextromethorphan-Guaifenesin PO Liquid 10 mg-100 mg/5 mL 10 ml PO once Route: PO; mf3 21:44 Follow up: Response: No adverse reaction 3 20:32 Drug: Cefepime IVPB 2 grams IVPB at 200 ml/hr once over 30 mins; (mix in NS 100 mL) mf3 Route: IVPB; Rate: 200 ml/hr; Infused Over: 30 mins; Site: right hand; 21:43 Follow up: IV Status: Completed infusion; IV Intake: 100ml mf3 21:30 Drug: Cyclobenzaprine PO 10 mg PO once Route: PO; mf3 21:43 Follow up: Response: No adverse reaction 3 21:30 Drug: Acetaminophen PO 1000 mg PO once Route: PO; mf3 21:43 Follow up: Response: No adverse reaction 3 10/07 00:05 Drug: Ipratropium Inhalation Aerosol 0.5 mg Inhalation once Route: Inhalation; ha1 00:24 Follow up: Response: No adverse reaction tb4 00:05 Drug: Albuterol Inhalation 2.5 mg Inhalation once Route: Inhalation; ha1 00:24 Follow up: Response: No adverse reaction tb4 Disposition: 10/06 22:16 Chart complete. sp4 Disposition Summary: 10/06/24 22:11 Hospitalization Ordered Notes: Hospitalization Status: Inpatient Admission sp4 Provider: Ger Diehl4 Location: Telemetry/MedSurg (Inpatient) sp4 Condition: Stable sp4 Problem: new sp4 Symptoms: have improved sp4 Bed/Room Type: Standard sp4 Room Assignment: 213(10/06/24 22:53) vk Diagnosis - Acute COPD exacerbation, sp4 - COPD/ Chronic obstructive pulmonary disease with (acute) exacerbation sp4 Forms: - Medication Reconciliation Form sp4 - SBAR form sp4 - Leadership Thank You Letter sp4 Signatures: Dispatcher [employer] EDMS Asiya Campo RN RN ha1 Elier Chisholm MD MD sp4 Evelin Emerson Mimi, RN RN 3 Odalys Stokes RN tb4 Corrections: (The following items were deleted from the chart) 19:21 19:21 BASIC METABOLIC PANEL+C.LAB.BRZ ordered. EDMS EDMS 19:21 19:21 BLOOD CULTURE*+BA.LAB.BRZ ordered. EDMS EDMS 19:21 19:21 CBC+H.LAB.BRZ ordered. EDMS EDMS 19:21 19:21 CREATINE PHOSPHOKINASE+C.LAB.BRZ ordered. EDMS EDMS 19:21 19:21 D-DIMER+COAG.LAB.BRZ ordered. EDMS EDMS 19:21 19:21 HEPATIC FUNCTION+C.LAB.BRZ ordered. EDMS EDMS 19:21 19:21 LIPASE+C.LAB.BRZ ordered. EDMS EDMS 19:21 19:21 MAGNESIUM+C.LAB.BRZ ordered. EDMS EDMS 19:21 19:21 PROBNP+C.LAB.BRZ ordered. EDMS EDMS 19:21 19:21 PROTIME (+INR)+COAG.LAB.BRZ ordered. EDMS EDMS 19:21 19:21 PTT, ACTIVATED+COAG.LAB.BRZ ordered. EDMS EDMS 19:21 19:21 Troponin High Sensitivity+C.LAB.BRZ ordered. EDMS EDMS 19: 19:21 Chest Single View+RAD.RAD.BRZ ordered. EDMS EDMS 19: 19:21 Arterial Blood Gas+RC.LAB.BRZ ordered. EDMS EDMS 19:28 19:28 Head Brain Wo Cont+CT.RAD.BRZ ordered. EDMS EDMS 20:34 20:34 Chest For PE Angio+CT.RAD.BRZ ordered. EDMS EDMS 22:19 19:27 [place] ordered. sp4 cp4 22:53 22:11 sp4 vk
[2024-10-06 22:34] LABS: Absolute Lymphocytes (CBC) 0.4 K/uL (0.7-4.9); Hematocrit 37.8 % (36.0-45.0); Hemoglobin 12.4 g/dL (12.0-15.0); MCH 29.7 pg (27.0-35.0); MCHC 32.9 g/dL (32.0-36.0); MCV 90.5 fL (80-100); MPV 7.8 fL (7.6-11.3); Nucleated RBC Absolute Count 0.0 (0-0); Nucleated Red Blood Cells % 0.0 % (0-0); RBC Red Blood Cell Count 4.18 M/uL (3.86-4.86); White Blood Count 10.40 thou/uL (4.3-10.9)
[2024-10-06] MEDS ORDERED: ACETAMINOPHEN 325 MG TABLET PO PRN (22:53)
--- NOTE | 2024-10-06 23:02 | P.HP ---
Certification for Inpatient Patient admitted to: Inpatient With expected LOS: >2 Midnights Patient will require the following post-hospital care: None Practitioner: I am a practitioner with admitting privileges, knowledge of patient current condition, hospital course, and medical plan of care. Services: Services provided to patient in accordance with Admission requirements found in Title 42 Section 412.3 of the Code of Federal Regulations Patient History Date of Service: 10/06/24 Reason for admission: Acute on chronic COPD exacerbation. History of Present Illness: Patient is a [id number] female with past medical history of type 2 diabetes mellitus, COPD, essential hypertension, hypercholesteremia, CAD, myocardial infarction with stents placement x 2, brought to the ER by EMS complaining of severe shortness of breath with associated expiratory, and expiratory wheezing with no chest pain. Patient states she usually occasionally have shortness of breath, states when she uses her oxygen and nebulizer treatment she usually feels better, states her shortness of breath today progressively worsening despite the use of her oxygen and nebulizer treatment still with no relief, prompting her to call EMS and was then brought to the ER. According to EMS, state patient initial O2 saturation at home was 72%. During admission assessment, patient was awake, alert and oriented x 3, able to communicate in full sentences, and states she feels much better compared to when she arrived in the ER. Patient currently on 3.5 L, O2 saturation in the 96-97%, patient bilateral lungs still with expiratory and inspiratory, poor aeration, with some rhonchi bilateral. Patient in no acute distress at this time. Patient denies of any headaches, chest pain, productive cough, nausea or vomiting, abdominal pain, or urinary symptoms, chills or fever. Allergies diazepam [From Valium] Adverse Reaction (Verified 08/04/22 01:38) "makes me stupid, too strong for me" diphenhydramine [From Benadryl] Adverse Reaction (Verified 08/04/22 01:38) "turns my nerve inside out" lorazepam Adverse Reaction (Verified 08/04/22 01:38) stomach issue Home Medications: Albuterol Inhaler [Ventolin Inhaler*] 2 puff IH Q4HP PRN 08/04/22 Albuterol Neb [Proventil 0.083% Neb Soln] 1 amp NEB Q4HP PRN 08/04/22 Clopidogrel Bisulfate [Plavix*] 75 mg PO DAILY 08/04/22 Fluoxetine HCl [Prozac] 20 mg PO DAILY 08/04/22 Guaifenesin [Mucinex] 1,200 mg PO BID 08/04/22 Insulin Glargine,Hum.rec.anlog [Lantus] 10 unit SQ BID 08/04/22 Ipratropium/Albuterol Sulfate [Iprat-Albut 0.5-3(2.5) mg/3 ml] 1 amp NEB Q4HP PRN 08/04/22 Lamotrigine [Lamictal] 100 mg PO BID 08/04/22 Linagliptin [Tradjenta] 5 mg PO DAILY 08/04/22 Metoprolol Tartrate [Lopressor*] 25 mg PO BID 08/04/22 Roflumilast [Daliresp*] 500 mcg PO DAILY 08/04/22 Trazodone HCl [Desyrel] 100 mg PO BEDTIME 08/04/22 predniSONE [Prednisone*] 10 mg PO DAILY 08/04/22 Atorvastatin Calcium 1 tab PO BEDTIME 11/20/22 Insulin Aspart [Novolog Flexpen] See Protocol SQ BID 11/20/22 Cariprazine HCl [Vraylar] 3 mg PO DAILY 04/26/24 Amox/Clavulanate [Augmentin 500-125 mg Tab*] 500 mg PO BID #12 tab 04/28/24 Azithromycin Tab [Zithromax*] 250 mg PO DAILY #5 tab 04/28/24 predniSONE [Deltasone*] 10 mg PO DAILY #14 tab 04/28/24 Fluticasone Propion/Salmeterol [Wixela 250-50 Inhub] 1 inh IH DAILY 05/05/24 Tiotropium Br/Olodaterol HCl [Stiolto Respimat Inhaler (60)] 1 inh IH DAILY 05/05/24 Hydroxyzine HCl [Atarax] 20 mg PO BIDP PRN 09/10/24 Arformoterol Tartrate [Brovana] 15 mcg NEB BIDRESP #60 vial.neb 09/13/24 Cefdinir [Cefdinir*] 300 mg PO BID #14 cap 09/13/24 clonazePAM [Klonopin] 0.5 mg PO BIDP PRN #60 tab 08/06/25 predniSONE [Deltasone*] 10 mg PO DAILY #30 tab 09/13/24 - Past Medical/Surgical History Diabetic: Yes -: COPD -: HTN -: Diabetes mellitus type 2 -: CAD -: Depression -: bipolar -: anxiety -: neuropathy -: -: Coronary stents x 2 Psychosocial/ Personal History: Patient is retired, lives with her daughter - Family History Family History: Reviewed- Non-Contributory (Patient states she was adopted) - Family History Father Notes: Patient is adopted Mother Notes: patient is adopted - Social History Smoking Status: Current every day smoker Smoking therapy provided: Yes Patient receptive to therapy: No Alcohol use: No CD- Drugs: No Caffeine use: No Place of Residence: Home Review of Systems 10-point ROS is otherwise unremarkable Respiratory: Shortness of Breath, SOB with Excertion Physical Examination - Physical Exam General: Alert, Oriented x3, Cooperative HEENT: Atraumatic, Normocephalic, PERRLA, Mucous membr. moist/pink Neck: Supple, 2+ carotid pulse no bruit, No LAD, Without JVD or thyroid abnormality Respiratory: Diminished (Bilateral), Crackles/rales, Expiratory wheezes Cardiovascular: No edema, Normal pulses, Regular rate/rhythm, Normal S1 S2, No gallops Capillary refill: <2 Seconds Gastrointestinal: Normal bowel sounds, Soft and benign, Non-distended, W/out hepatomegaly, No ascites Musculoskeletal: No clubbing, No swelling, No contractures, No erythema, No tenderness, No warmth Integumentary: Other (Multiple bruises on both arms) Neurological: Normal speech, Normal strength at 5/5 x4 extr, Normal tone, Sensation intact, Normal reflexes 2+, Normal affect Lymphatics: No axilla or inguinal lymphadenopathy - Studies Laboratory Data (last 24 hrs) 10/06/24 10/06/24 10/06/24 22:19 19:30 19:30 WBC 10.40 Hgb 12.4 Hct 37.8 Plt Count 253 PT 10.8 INR 0.95 APTT 25.5 L Sodium 139 Potassium 4.1 BUN 20 H Creatinine 0.95 Glucose 290 H Magnesium 2.1 Total Bilirubin 0.2 AST 18 ALT 29 Alkaline Phosphatase 65 Lipase 73 Female Exam - Breasts Breasts: Normal configuration Assessment and Plan - Plan Patient is a 68-year-old female admitted to inpatient with diagnosis of acute on chronic COPD exacerbation. Patient currently on 3.5 L of oxygen her home baseline use. Patient in no acute distress at this time. (1)Acute on chronic COPD exacerbation. -Brovana 1 5 mcg nebulizer twice daily. -DuoNeb every 6 hours as needed. -Prednisone 20 mg p.o. daily. -Levaquin 500 mg p.o. daily. Prophylactic due to COPD exacerbation. -Consult soft metals engraver hand Dr. Licona. (2)Chronic type 2 diabetes mellitus. -Order A1c in AM. -ACHS, with moderate sliding scale coverage. (3)Chronic essential hypertension, and hypercholesterolemia. -Patient home medications to be resumed after reconciliation is completed. (4)Explained the entire treatment plan to the patient, and daughter present at the bedside, solicit questions answered and voiced understanding. Patient has opted to be DO NOT INTUBATE in the presence of her daughter during admission. Discharge Plan: Home Plan to discharge in: 72 Hours - Advance Directives Does patient have a Living Will: No Does patient have a Durable POA for Healthcare: No - Code Status/Comfort Care Code Status Assessed: Yes Code Status: Full Code Critical Care: No Time Spent Managing Pts Care (In Minutes): 55
[2024-10-06] MEDS ORDERED: ALBUTEROL 2.5 MG/3 ML NEB SOL ONE (23:55)
[2024-10-07] MEDS: NA CHLORIDE 0.9% 500 ML IV ONE (00:57)
[2024-10-07] MEDS: PIPER TAZO 3.375 GM in NA CHLORIDE 0.9% 100 ML IV ONE (00:58)
[2024-10-07 01:15] LABS: Arterial Blood Carboxyhemoglob 3.0 % (0.0-1.5); Blood Gas Inspired Oxygen 32.0 %; Blood Gas Oxyhemoglobin 92.8 % (94.0-97.0); Blood O2 Saturation 96.1 % (92.0-98.5)
[2024-10-07 01:17] LABS: Blood Morphology Comment NOT SEEN (NOT SEEN); White Blood Cell Scan OK (OK)
[2024-10-07 01:54] LABS: Sqamous Epithelial None Seen /HPF (None Seen); Urine Micro Reflex YN NO BILL MICROSCOPIC
[2024-10-07] MEDS: IPRATROPIUM BROM 0.5MG/2.5ML NEB PRN (03:40)
[2024-10-07] MEDS: ALBUTEROL 2.5 MG/3 ML NEB SOL NEB PRN (03:40)
[2024-10-07] MEDS: METHYLPREDNISOLONE 125 MG INJ IV ONE (04:42)
[2024-10-07] MEDS: BUDESONIDE 0.5 MG/2 ML NEB NEB ONE (04:45)
[2024-10-07 06:37] LABS: Absolute Lymphocytes (CBC) 0.5 K/uL (0.7-4.9); Hematocrit 37.9 % (36.0-45.0); Hemoglobin 12.8 g/dL (12.0-15.0); MCH 30.7 pg (27.0-35.0); MCHC 33.8 g/dL (32.0-36.0); MCV 90.9 fL (80-100); MPV 7.8 fL (7.6-11.3); Nucleated RBC Absolute Count 0.0 (0-0); Nucleated Red Blood Cells % 0.0 % (0-0); RBC Red Blood Cell Count 4.17 M/uL (3.86-4.86); White Blood Count 9.70 thou/uL (4.3-10.9)
[2024-10-07 06:44] LABS: ALT/SGPT 24.0 U/L (13-56); AST/SGOT 18.0 U/L (15-37); Albumin 3.3 g/dL (3.4-5.0); Albumin/Globulin Ratio 1.0 (1.1-1.8); Alkaline Phosphatase 63.0 U/L (45-117); Anion Gap 8.7 mEq/L (5.0-15.0); BUN Blood Urea Nitrogen 20.0 mg/dL (7-18); Globulin 3.2 g/dL (2.3-3.5); Glucose Level 379.0 mg/dL (74-106); Magnesium 2.2 mg/dL (1.6-2.4); Potassium 4.7 mEq/L (3.5-5.1)
[2024-10-07] MEDS: INSULIN REGULAR (HUMAN) 100 UNIT/ML SQ SCH (07:30)
[2024-10-07] MEDS: ARFORMOTEROL TARTRATE 15 MCG/2 ML VIAL.NEB NEB SCH (07:59)
[2024-10-07] MEDS: levoFLOXacin 500 MG TAB PO SCH (09:58)
[2024-10-07] MEDS: ENOXAPARIN 40 MG/0.4 ML SQ SCH (09:58)
[2024-10-07] MEDS: predniSONE 20 MG TAB PO SCH (09:58)
[2024-10-07] MEDS ORDERED: clonazePAM 0.5 MG TAB PO PRN (11:19)
[2024-10-07] MEDS: INSULIN GLARGINE 100 UNIT/ML SQ SCH (11:26)
--- NOTE | 2024-10-07 11:30 | P.PN ---
Subjective Date of Service: 10/07/24 Chief Complaint: Acute on chronic COPD exacerbation. Patient is 68 years of age has terminal COPD multiple frequent exacerbations admitted with worsening dyspnea Review of Systems General: Weakness Respiratory: Shortness of Breath Physical Examination - Vital Signs Temperature: 98.0 F Blood Pressure: 161/77 Pulse: 98 Respirations: 12 Pulse Ox (%): 98 - Physical Exam General: Alert, Oriented x3 Respiratory: Clear to auscultation bilaterally, Diminished Cardiovascular: Regular rate/rhythm, Normal S1 S2 Gastrointestinal: Normal bowel sounds, Soft and benign - Studies Laboratory Data (last 24 hrs) 10/06/24 10/06/24 10/06/24 22:19 19:30 19:30 WBC 10.40 Hgb 12.4 Hct 37.8 Plt Count 253 PT 10.8 INR 0.95 APTT 25.5 L Sodium 139 Potassium 4.1 BUN 20 H Creatinine 0.95 Glucose 290 H Magnesium 2.1 Total Bilirubin 0.2 AST 18 ALT 29 Alkaline Phosphatase 65 Lipase 73 Assessment And Plan - Current Problems (Diagnosis) (1) COPD exacerbation Current Visit: No Status: Acute Plan: Patient is 68 years of age with a history of terminal COPD frequent exacerbations admitted with worsening dyspnea no evidence of DVT PE or pneumonia labs reviewed lactic acid is mildly elevated patient is not hypercarbic does not qualify for an IV labs and data reviewed continue with present medications add Augmentin possible discharge a.m.
[2024-10-07] MEDS: IPRATROPIUM BROM 0.5MG/2.5ML NEB SCH (13:38)
[2024-10-07] MEDS ORDERED: ARFORMOTEROL TARTRATE 15 MCG/2 ML VIAL.NEB NEB SCH (19:00)
[2024-10-07] MEDS: GUAIFENESIN 600 MG SA TAB PO SCH (20:14)
[2024-10-07] MEDS: AMOX/K CLAV 500 MG TAB PO SCH (20:14)
[2024-10-07] MEDS: lamoTRIgine 100 MG TAB PO SCH (20:15)
[2024-10-07] MEDS: METOPROLOL TAR 25 MG TAB PO SCH (20:15)
[2024-10-07] MEDS: ATORVASTATIN 40 MG TAB PO SCH (20:15)
[2024-10-07] MEDS: TRAZODONE 50 MG TABLET PO SCH (20:15)
[2024-10-08 02:27] VITALS: BMI 21.4
[2024-10-08 06:56] LABS: Absolute Lymphocytes (CBC) 2.2 K/uL (0.7-4.9); Hematocrit 40.8 % (36.0-45.0); Hemoglobin 13.9 g/dL (12.0-15.0); MCH 30.3 pg (27.0-35.0); MCHC 34.0 g/dL (32.0-36.0); MCV 89.1 fL (80-100); MPV 7.4 fL (7.6-11.3); Nucleated RBC Absolute Count 0.0 (0-0); Nucleated Red Blood Cells % 0.1 % (0-0); RBC Red Blood Cell Count 4.58 M/uL (3.86-4.86); White Blood Count 9.30 thou/uL (4.3-10.9)
[2024-10-08 07:16] LABS: ALT/SGPT 32.0 U/L (13-56); AST/SGOT 22.0 U/L (15-37); Albumin 3.4 g/dL (3.4-5.0); Albumin/Globulin Ratio 1.1 (1.1-1.8); Alkaline Phosphatase 55.0 U/L (45-117); Anion Gap 4.7 mEq/L (5.0-15.0); BUN Blood Urea Nitrogen 17.0 mg/dL (7-18); Globulin 3.1 g/dL (2.3-3.5); Glucose Level 105.0 mg/dL (74-106); Magnesium 2.2 mg/dL (1.6-2.4); Potassium 3.7 mEq/L (3.5-5.1)
[2024-10-08 08:40] VITALS: BP 140/72; TEMP 98.2
--- NOTE | 2024-10-08 09:38 | P.DS ---
Admission Date: 10/06/24 Discharge Date: 10/08/24 Disposition: ROUTINE DISCHARGE Discharge Condition: FAIR Reason for Admission: Acute on chronic COPD exacerbation. - Problems (1) COPD exacerbation Current Visit: No Status: Acute Brief History of Present Illness: Patient is 68 years of age with a history of terminal COPD admitted with an exacerbation Hospital Course: Patient was admitted to the hospital and did well during the course of her stay no complications vital signs are all stable labs chemistries all reviewed pa ashleynt was not hypercapnic does not qualify for noninvasive ventilator CT pulmonary angiogram was also negative no evidence of pneumonia at the time of discharge patient alert oriented responsive cooperative chest clear vital signs stable was wanted to go home Augmentin and azithromycin was faxed to the pharmacy otherwise to resume all her home medications Vital Signs/Physical Exam: Temp Pulse Resp BP Pulse Ox 98.2 F 87 16 140/72 97 10/08/24 08:00 10/08/24 08:00 10/08/24 08:00 10/08/24 08:00 10/08/24 08:00 Laboratory Data at Discharge: WBC 9.30 thou/uL (4.3-10.9) 10/08/24 06:11 Hgb 13.9 g/dL (12.0-15.0) D 10/08/24 06:11 Hct 40.8 % (36.0-45.0) 10/08/24 06:11 Plt Count 308 thou/uL (152-406) 10/08/24 06:11 PT 10.8 SECONDS (10-13.0) 10/06/24 19:30 INR 0.95 10/06/24 19:30 APTT 25.5 SECONDS (27.2-37.4) L 10/06/24 19:30 Sodium 141 mEq/L (136-145) 10/08/24 06:11 Potassium 3.7 mEq/L (3.5-5.1) D 10/08/24 06:11 BUN 17 mg/dL (7-18) 10/08/24 06:11 Creatinine 0.90 mg/dL (0.55-1.02) 10/08/24 06:11 Glucose 105 mg/dL (74-106) 10/08/24 06:11 Magnesium 2.2 mg/dL (1.6-2.4) 10/08/24 06:11 Total Bilirubin 0.5 mg/dL (0.2-1.0) 10/08/24 06:11 AST 22 U/L (15-37) 10/08/24 06:11 ALT 32 U/L (13-56) 10/08/24 06:11 Alkaline Phosphatase 55 U/L (45-117) 10/08/24 06:11 Lipase 73 U/L (13-75) 10/06/24 19:30 Home Medications: Albuterol Inhaler [Ventolin Inhaler*] 2 puff IH Q4HP PRN 08/04/22 Albuterol Neb [Proventil 0.083% Neb Soln] 1 amp NEB Q4HP PRN 08/04/22 Clopidogrel Bisulfate [Plavix*] 75 mg PO DAILY 08/04/22 Fluoxetine HCl [Prozac] 20 mg PO DAILY 08/04/22 Guaifenesin [Mucinex] 1,200 mg PO BID 08/04/22 Insulin Glargine,Hum.rec.anlog [Lantus] 10 unit SQ BID 08/04/22 Ipratropium/Albuterol Sulfate [Iprat-Albut 0.5-3(2.5) mg/3 ml] 1 amp NEB Q4HP PRN 08/04/22 Lamotrigine [Lamictal] 100 mg PO BID 08/04/22 Linagliptin [Tradjenta] 5 mg PO DAILY 08/04/22 Metoprolol Tartrate [Lopressor*] 25 mg PO BID 08/04/22 Roflumilast [Daliresp*] 500 mcg PO DAILY 08/04/22 Trazodone HCl [Desyrel] 100 mg PO BEDTIME 08/04/22 predniSONE [Prednisone*] 10 mg PO DAILY 08/04/22 Atorvastatin Calcium 1 tab PO BEDTIME 11/20/22 Insulin Aspart [Novolog Flexpen] See Protocol SQ BID 11/20/22 Cariprazine HCl [Vraylar] 3 mg PO DAILY 04/26/24 predniSONE [Deltasone*] 10 mg PO DAILY #14 tab 04/28/24 Hydroxyzine HCl [Atarax] 20 mg PO BIDP PRN 09/10/24 clonazePAM [Klonopin] 0.5 mg PO BIDP PRN #60 tab 09/13/24 predniSONE [Deltasone*] 10 mg PO DAILY #30 tab 09/13/24 Amox/Clavulanate [Augmentin 500-125 mg Tab*] 500 mg PO BID #12 tab 10/08/24 Azithromycin 250 mg PO DAILY 30 Days #15 tab 10/08/24 New Medications: Amox/Clavulanate [Augmentin 500-125 mg Tab*] 500 mg PO BID #12 tab Azithromycin 250 mg PO DAILY 30 Days #15 tab Physician Discharge Instructions: Prescription for azithromycin and another antibiotic Augmentin sent patient to resume her trilogy at home no other change in her meds follow-up with me in 2 weeks Diet: Regular Activity: Ad darby Followup: Alonso Licona MD [ACTIVE - CAN ADMIT] - Tino López MD [Primary Care Provider] -
[2024-10-08] MEDS: ROFLUMILAST 500 MCG TABLET PO SCH (09:41)
[2024-10-08] MEDS: FLUOXETINE 20 MG CAP PO SCH (09:41)
[2024-10-08] MEDS: AZITHROMYCIN 250 MG TAB PO SCH (09:42)
[2024-10-08] MEDS: CLOPIDOGREL 75 MG TABLET PO SCH (09:42)
[2024-10-08] MEDS: INSULIN GLARGINE 100 UNIT/ML SQ SCH (09:42)
[2024-10-08 11:47] VITALS: O2SAT 97
== END 2024-10-08 11:35 | disposition home or self-care (01) | DRG 192 ==
LOC: ER 19:00 → 2ND 22:45
PROVIDERS: ADMIT Internal Medicine Sleep Medicine; ATTEND Internal Medicine Sleep Medicine
PROC: 4A033R1 Measurement of Arterial Saturation, Peripheral, Percutaneous Approach (ICD-10-PCS; principal; 2024-10-06)
DX: J44.1 Chronic obstructive pulmonary disease with (acute) exacerbation (principal); F31.9 Bipolar disorder, unspecified; I10 Essential (primary) hypertension; E78.00 Pure hypercholesterolemia, unspecified; E11.40 Type 2 diabetes mellitus with diabetic neuropathy, unspecified; I25.10 Atherosclerotic heart disease of native coronary artery without angina pectoris; F17.200 Nicotine dependence, unspecified, uncomplicated; I25.2 Old myocardial infarction; Z79.4 Long term (current) use of insulin; Z95.5 Presence of coronary angioplasty implant and graft; Z88.8 Allergy status to other drugs, medicaments and biological substances; Z99.81 Dependence on supplemental oxygen; Z79.52 Long term (current) use of systemic steroids; Z79.02 Long term (current) use of antithrombotics/antiplatelets; Z79.899 Other long term (current) drug therapy
CPT/HCPCS: 36415; 36600; 70450; 71045; 71275; 80048; 80053; 80076; 81001; 82550; 82805; 82947; 83605; 83690; 83735; 83880; 84484; 85025; 85379; 85610; 85730; 87040; 93005; 94010; 94640; 94760; 96365; 99285; G0238; J0692; J1650; J1815; J2543; J2919; J3370; J7040; J7050; J7512; J7605; J7613; J7626; J7644; Q9967

== ENCOUNTER 2024-11-13 18:04 | Inpatient (IN) | payer OTHER ==
[2024-11-13] MEDS ORDERED: Magnesium Sulfate 2gm IVPB 2 G/50 ML BAG IV ONE (18:26)
[2024-11-13 18:49] LABS: Absolute Lymphocytes (CBC) 1.7 K/uL (0.7-4.9); Hematocrit 37.8 % (36.0-45.0); Hemoglobin 12.6 g/dL (12.0-15.0); MCH 29.8 pg (27.0-35.0); MCHC 33.3 g/dL (32.0-36.0); MCV 89.7 fL (80-100); MPV 7.4 fL (7.6-11.3); Nucleated RBC Absolute Count 0.0 (0-0); Nucleated Red Blood Cells % 0.1 % (0-0); RBC Red Blood Cell Count 4.21 M/uL (3.86-4.86); White Blood Count 8.00 thou/uL (4.3-10.9)
[2024-11-13 18:59] LABS: PT Prothrombin Time 10.3 SECONDS (10-13.0); PTT, Activated Partial Thromb 24.7 SECONDS (27.2-37.4); Protime INR 0.91
--- NOTE | 2024-11-13 19:05 | RAD REPORT ---
EXAM: Chest Single View HISTORY: 68 years Female DYSPNEA COMPARISON: 10/06/2024 FINDINGS: LUNGS/PLEURA: Emphysema with hyperexpanded lungs and chronically blunted costophrenic angles CARDIAC/MEDIASTINUM: The cardiac silhouette is within normal limits. UPPER ABDOMEN: No significant abnormality. BONES: No acute abnormality. LINES/TUBES/OTHER: N/A IMPRESSION: Emphysema without superimposed acute process.
[2024-11-13 19:08] LABS: ALT/SGPT 28.0 U/L (13-56); AST/SGOT 21.0 U/L (15-37); Albumin 3.3 g/dL (3.4-5.0); Albumin/Globulin Ratio 1.1 (1.1-1.8); Alkaline Phosphatase 61.0 U/L (45-117); Anion Gap 6.8 mEq/L (5.0-15.0); BUN Blood Urea Nitrogen 19.0 mg/dL (7-18); Globulin 3.0 g/dL (2.3-3.5); Glucose Level 248.0 mg/dL (74-106); NT PRO-BNP 527.0 pg/mL (<125); Potassium 3.8 mEq/L (3.5-5.1); Troponin High Sensitivity 9.9 pg/mL (<58.9)
[2024-11-13] MEDS ORDERED: ALBUTEROL 2.5 MG/3 ML NEB SOL ONE (19:19)
[2024-11-13] MEDS ORDERED: Levofloxacin 750mg IV 750 MG/150 ML BAG IV ONE (19:19)
[2024-11-13] MEDS ORDERED: IPRATROPIUM BROM 0.5MG/2.5ML ONE (19:19)
--- NOTE | 2024-11-13 19:44 | EDPHYS ---
Physician Documentation [facility] Name: Miles Reyes Age: 68 yrs Sex: Female : 1955 Arrival Date: 11/13/2024 Time: 18:04 Bed 7 Private MD: ED Physician Iasac Herman HPI: 11/13 18:11 This 68 yrs old Female presents to ER via Unassigned with complaints of Shortness Of sb4 Breath. 18:11 Patient presents with 3 days of shortness of breath. States that it feels similar to sb4 her prior COPD exacerbations. She is on home oxygen. Denies any fever or chills. Denies any chest pain, nausea, vomiting, diarrhea. Historical: - Allergies: 18:05 Benadryl; jp5 18:05 Lorazepam; jp5 18:05 Valium; jp5 - PMHx: 18:05 CHF; Chronic obstructive lung disease; diabetes mellitus; Emphysema; jp5 Hypercholesterolemia; Hypertensive disorder; O2 dependent 2L-4L PRN; - PSHx: 18:05 section; Heart Stents; jp5 - Immunization history:: Adult Immunizations up to date. - Infectious Disease History:: Denies. - Social history:: Smoking status: Patient reports the use of cigarette tobacco products. ROS: 18:11 Constitutional: Negative for fever, chills, and weight loss, sb4 18:11 Respiratory: Positive for shortness of breath, wheezing, 18:11 All other systems are negative, Exam: 18:11 Head/Face: Normocephalic, atraumatic. Eyes: Extra-ocular motions intact. Periorbital sb4 areas with no swelling, redness, or edema. ENT: Mucous membranes moist. Cardiovascular: Regular rate and rhythm with a normal S1 and S2. Abdomen/GI: Soft, non-tender, no distension. Skin: Warm, dry with normal turgor. Normal color with no rashes, no lesions, and no evidence of cellulitis. 18:11 Constitutional: The patient appears in no acute distress, alert, awake, 18:11 Respiratory: mild respiratory distress is noted, Respirations: labored breathing, Breath sounds: wheezing: expiratory is scattered, Vital Signs: 18:05 BP 158 / 75; Pulse 111; Resp 22; Temp 98(O); Pulse Ox 92% on R/A; jp5 19:59 BP 128 / 67; Pulse 112; Resp 22; Pulse Ox 98% on 3 lpm NC; kd3 22:33 BP 140 / 69; Pulse 118; Resp 22; Pulse Ox 97% on 3 lpm NC; zm 11/14 00:08 BP 125 / 59; Pulse 102; Resp 20; Pulse Ox 98% on 3 lpm NC; kd3 Leedey Coma Score: 11/13 22:33 Eye Response: spontaneous(4). Motor Response: obeys commands(6). Verbal Response: zm oriented(5). Total: 15. MDM: 18:05 Medical Screening Exam initiated sb4 18:14 Differential diagnosis: asthma, Bronchitis CHF exacerbation, Chronic Obstructive sb4 Pulmonary Disease pneumonia, pulmonary edema, reactive airway disease. 19:42 Antibiotic administration: Levaquin given. Data interpreted: Pulse oximetry: on 3L(s) sb4 per nasal canula, is 98 %. Data reviewed: vital signs, nurses notes, EMS record, lab test result(s), EKG, radiologic studies, and as a result, I will admit patient. Counseling: I had a detailed discussion with the patient and/or guardian regarding the historical points, exam findings, and any diagnostic results supporting the discharge/admit diagnosis, the presence of at least one elevated blood pressure reading (>120/80) during this emergency department visit, lab results, radiology results, the need for further work-up and treatment in the hospital. 11/13 18:10 Order name: BNP; Complete Time: 19:09 sb4 11/13 18:10 Order name: Blood Culture Adult (2) sb4 11/13 18:10 Order name: CBC with Diff; Complete Time: 18:50 sb4 11/13 18:10 Order name: CMP; Complete Time: 19:09 sb4 11/13 18:10 Order name: Lactate w/ 2H reflex if indic.; Complete Time: 19:18 sb4 11/13 18:10 Order name: Protime (+inr); Complete Time: 19:01 sb4 11/13 18:10 Order name: Ptt, Activated; Complete Time: 19:01 sb4 11/13 18:10 Order name: Troponin HS; Complete Time: 19:09 sb4 11/13 23:14 Order name: CBC with Automated Diff EDMS 11/13 23:14 Order name: CBC with Automated Diff EDMS 11/13 23:14 Order name: Comprehensive Metabolic Panel EDMS 11/13 23:14 Order name: Comprehensive Metabolic Panel EDMS 11/13 18:10 Order name: Chest Single View XRAY; Complete Time: 19:06 sb4 11/13 18:10 Order name: Accucheck; Complete Time: 18:40 sb4 11/13 18:10 Order name: Cardiac monitoring; Complete Time: 18:25 sb4 11/13 18:10 Order name: EKG - Nurse/Tech; Complete Time: 18:53 sb4 11/13 18:10 Order name: IV Saline Lock - Large Bore; Complete Time: 18:25 sb4 11/13 18:10 Order name: Labs collected and sent; Complete Time: 18:40 sb4 11/13 18:10 Order name: O2 Per Protocol; Complete Time: 18:25 sb4 11/13 18:10 Order name: O2 Sat Monitoring; Complete Time: 18:25 sb4 11/13 18:10 Order name: Vital Signs; Complete Time: 18:25 sb4 EC:03 Rate is 100 beats/min. Rhythm is regular, Normal Sinus Rhythm. HI interval is normal at sb4 144 msec. QRS interval is normal at 88 msec. QT interval is normal at 366 msec. No Q waves. T waves are Normal. No ST changes noted. Clinical impression: Normal ECG. Interpreted by me. Reviewed by me. Administered Medications: 18:28 Drug: Magnesium Sulfate IVPB 2 grams IVPB once over 30 mins Route: IVPB; Infused Over: jp5 30 mins; Site: left hand; 11/14 00:09 Follow up: IV Status: Completed infusion kd3 11/13 19:33 Drug: DuoNeb Nebulize (3:1) (2.5 mg - 0.5 mg) 3 ml Nebulizer once Route: Nebulizer; kd 20:00 Follow up: Response: No adverse reaction kd3 11/14 00:09 Follow up: Response: No adverse reaction kd3 11/13 19:33 Drug: levofloxacin IVPB 750 mg 150 ml IVPB once over 90 mins Volume: 150 ml; Route: kd3 IVPB; Infused Over: 90 mins; Site: left forearm; 11/14 00:09 Follow up: IV Status: Completed infusion kd3 11/13 20:18 Drug: Acetaminophen PO 650 mg PO once Route: PO; zaria 11/14 00:09 Follow up: Response: No adverse reaction kd3 Disposition Summary: 11/13/24 19:43 Hospitalization Ordered Notes: Hospitalization Status: Inpatient Admission sb4 Provider: Orlin Porras4 Location: Telemetry/MedSurg (Inpatient) sb4 Condition: Fair sb4 Problem: an acute exacerbation sb4 Symptoms: are unchanged sb4 Bed/Room Type: Standard sb4 Room Assignment: 205(11/14/24 00:15) [facility] Diagnosis - COPD/ Chronic obstructive pulmonary disease with (acute) exacerbation sb4 Forms: - Medication Reconciliation Form sb4 - SBAR form sb4 - Leadership Thank You Letter sb4 Signatures: Dispatcher [employer] Louise Colbert, RN RN Elva Ferrer RN SIDDHARTH kd3 Lisa Saavedra RN Sumi Amaya PAEdwardoC PA-C sb4 Amy Lemon [facility] Cynthia Birch RN RN jp5 Corrections: (The following items were deleted from the chart) 11/13 18:11 18:11 PROBNP+C.LAB.BRZ ordered. EDMS EDMS 18:11 18:11 BLOOD CULTURE*+BA.LAB.BRZ ordered. EDMS EDMS 18:11 18:11 CBC+H.LAB.BRZ ordered. EDMS EDMS 18:11 18:11 COMPREHENSIVE METABOLIC PANEL+C.LAB.BRZ ordered. EDMS EDMS 18:11 18:11 LACTATE+C.LAB.BRZ ordered. EDMS EDMS 18:11 18:11 PROTIME (+INR)+COAG.LAB.BRZ ordered. EDMS EDMS 18:11 18:11 PTT, ACTIVATED+COAG.LAB.BRZ ordered. EDMS EDMS 18:11 18:11 Troponin High Sensitivity+C.LAB.BRZ ordered. EDMS EDMS 18:11 18:11 Chest Single View+RAD.RAD.BRZ ordered. EDMS EDMS 23:34 19:43 sb4 cg 11/14 00:15 11/13 23:34 223 cg [facility]
--- NOTE | 2024-11-13 19:44 | ER ---
Nurse's Notes [facility] Name: Miles Reyes Age: 68 yrs Sex: Female : 1955 Arrival Date: 11/13/2024 Time: 18:04 Bed 7 Private MD: Diagnosis: COPD/ Chronic obstructive pulmonary disease with (acute) exacerbation Presentation: 11/13 18:05 Chief complaint: EMS states: from home, due to worsening SOB for the past couple of jp5 days. Pt has COPD and is on 3.5 L of home oxygen. EMS gave A\T\A tx and 125 mg Solu-Medrol. Coronavirus screen: At this time, the client does not indicate any symptoms associated with coronavirus-19. Ebola Screen: No symptoms or risks identified at this time. Initial Sepsis Screen: Does the patient meet any 2 criteria? RR > 20 per min. HR > 90 bpm. Does the patient have a suspected source of infection? No. Patient's initial sepsis screen is negative. Risk Assessment: Do you want to hurt yourself or someone else? Patient reports no desire to harm self or others. 18:05 Method Of Arrival: EMS: [facility] jp5 18:05 Acuity: CONSTANTINO 3 jp5 22:35 Onset of symptoms is unknown. zm Triage Assessment: 18:05 General: Appears distressed, uncomfortable, unkempt, Behavior is calm, cooperative. jp5 Pain: Denies pain. Respiratory: Reports shortness of breath at rest on exertion Airway is patent Trachea midline Respiratory effort is labored, Respiratory pattern is tachypnea Onset: The symptoms/episode began/occurred the patient has mild shortness of breath. Historical: - Allergies: 18:05 Benadryl; jp5 18:05 Lorazepam; jp5 18:05 Valium; jp5 - PMHx: 18:05 CHF; Chronic obstructive lung disease; diabetes mellitus; Emphysema; jp5 Hypercholesterolemia; Hypertensive disorder; O2 dependent 2L-4L PRN; - PSHx: 18:05 section; Heart Stents; jp5 - Immunization history:: Adult Immunizations up to date. - Infectious Disease History:: Denies. - Social history:: Smoking status: Patient reports the use of cigarette tobacco products. Screenin:05 [facility] ED Fall Risk Assessment (Adult) History of falling in the last 3 months, jp5 including since admission No falls in past 3 months (0 pts) Confusion or Disorientation No (0 pts) Intoxicated or Sedated No (0 pts) Impaired Gait Yes (1 pt) Mobility Assist Device Used Yes (1 pt) Altered Elimination No (0 pt) Score/Fall Risk Level 0 - 2 = Low Risk Oriented to surroundings, Maintained a safe environment, Educated pt \T\ family on fall prevention, incl call for assistance when getting out of bed, Assessed \T\ reinforced patient's understanding of fall precautions, Provided non-skid footwear, Hourly rounding (assess needs \T\ fall precautionary measures) done, Used ambulatory aids as needed (educated on \T\ assisted with), Used gait belt as appropriate. Abuse screen: Denies threats or abuse. Denies injuries from another. Nutritional screening: No deficits noted. Tuberculosis screening: No symptoms or risk factors identified. Assessment: 18:21 Cardiovascular: Rhythm is sinus tachycardia. Respiratory: Airway is patent Trachea jp5 midline Respiratory effort is labored, Breath sounds with wheezes bilaterally. 19:38 General: Appears in no apparent distress. comfortable, Behavior is calm, cooperative. zm Pain: Complains of pain in base of the skull Pain currently is 5 out of 10 on a pain scale. Neuro: No deficits noted. Level of Consciousness is awake, alert, obeys commands, Oriented to person, place, time, situation. Cardiovascular: Denies chest pain, Heart tones S1 S2 present Capillary refill < 3 seconds in bilateral fingers Patient's skin is warm and dry. Rhythm is sinus tachycardia. Respiratory: Airway is patent Trachea midline Respiratory effort is even, unlabored, Respiratory pattern is regular, symmetrical, Breath sounds with wheezes bilaterally. in right upper lobe, left upper lobe, left lower lobe and right lower lobe. 20:10 Reassessment: Patient and/or family updated on plan of care and expected duration. Pain ha1 level reassessed. 21:30 Reassessment: Patient appears in no apparent distress at this time. No changes from zm previously documented assessment. Patient and/or family updated on plan of care and expected duration. Pain level reassessed. Patient is alert, oriented x 3, equal unlabored respirations, skin warm/dry/pink. 22:31 Reassessment: Patient appears in no apparent distress at this time. No changes from zm previously documented assessment. Patient and/or family updated on plan of care and expected duration. Pain level reassessed. Patient is alert, oriented x 3, equal unlabored respirations, skin warm/dry/pink. Vital Signs: 18:05 BP 158 / 75; Pulse 111; Resp 22; Temp 98(O); Pulse Ox 92% on R/A; jp5 19:59 BP 128 / 67; Pulse 112; Resp 22; Pulse Ox 98% on 3 lpm NC; kd3 22:33 BP 140 / 69; Pulse 118; Resp 22; Pulse Ox 97% on 3 lpm NC; zm 10 00:08 BP 125 / 59; Pulse 102; Resp 20; Pulse Ox 98% on 3 lpm NC; kd3 Geneva Coma Score: 11/13 22:33 Eye Response: spontaneous(4). Motor Response: obeys commands(6). Verbal Response: zm oriented(5). Total: 15. ED Course: 18:05 Patient arrived in ED. jp5 18:05 [facility] Stokes [facility]. sb4 18:05 Isaac Herman MD is Attending Physician. sb4 18:05 Arm band placed on right wrist. jp5 18:05 Patient has correct armband on for positive identification. Placed in gown. Bed in low jp5 position. Call light in reach. Side rails up X 1. Provided Education on: call light use. site monitor on. Pulse ox on. NIBP on. 18:05 Maintain EMS IV. Dressing intact. Good blood return noted. Site clean \T\ dry. Gauge \T\ jason 5 site: 20g L hand. Flushed with 10 mL NS. 18:08 Madi Rai, RN is Primary Nurse. bp 18:17 Triage completed. jp5 18:20 No provider procedures requiring assistance completed. jp5 18:25 First set of blood cultures drawn by me. jp5 18:29 Chest Single View XRAY In Process Unspecified. EDMS 18:36 Second set of blood cultures drawn by me. jp5 18:40 BNP Sent. jp5 18:40 Blood Culture Adult (2) Sent. jp5 18:40 Protime (+inr) Sent. jp5 18:40 Ptt, Activated Sent. jp5 18:40 Troponin HS Sent. jp5 18:50 EKG done, by ED staff, reviewed by Sumi Stokes PA-C. jp5 19:42 Orlin Porras MD is Hospitalizing Provider. sb4 11/14 00:51 Patient admitted, IV remains in place. ha1 Administered Medications: 11/13 18:28 Drug: Magnesium Sulfate IVPB 2 grams IVPB once over 30 mins Route: IVPB; Infused Over: jp5 30 mins; Site: left hand; 11/14 00:09 Follow up: IV Status: Completed infusion kd3 11/13 19:33 Drug: DuoNeb Nebulize (3:1) (2.5 mg - 0.5 mg) 3 ml Nebulizer once Route: Nebulizer; kd3 20:00 Follow up: Response: No adverse reaction kd3 11/14 00:09 Follow up: Response: No adverse reaction kd3 11/13 19:33 Drug: levofloxacin IVPB 750 mg 150 ml IVPB once over 90 mins Volume: 150 ml; Route: kd3 IVPB; Infused Over: 90 mins; Site: left forearm; 11/14 00:09 Follow up: IV Status: Completed infusion kd3 11/13 20:18 Drug: Acetaminophen PO 650 mg PO once Route: PO; zm 11/14 00:09 Follow up: Response: No adverse reaction kd3 Medication: 11/13 18:20 VIS not applicable for this client. jp5 Outcome: 19:43 Decision to Hospitalize by Provider. sb4 11/14 00:51 Admitted to Med/surg accompanied by nurse, via stretcher, room 205, with chart, ha1 Condition: stable Instructed on the need for admit, Demonstrated understanding of instructions, 00:52 Patient left the ED. ha1 Signatures: Dispatcher [employer] EDMS Madi Rai, RN Elva Alexander RN RN kd3 Lisa Saavedra RN RN zm Ayala, Heidy, RN RN ha1 Sumi Stokes PA-C PA-C sb4 Cynthia Birch RN RN jp5 Corrections: (The following items were deleted from the chart) 11/13 18:19 18:05 Chief complaint: EMS states: from home, due to worsening SOB for the past couple jp5 of days. Pt has COPD and is on 3.5 L of home oxygen. jp5
[2024-11-13] MEDS ORDERED: ACETAMINOPHEN 325 MG TABLET ONE (20:12)
[2024-11-13] MEDS ORDERED: ONDANSETRON 4 MG/2 ML VIAL IV PRN (23:09)
[2024-11-13] MEDS ORDERED: ALBUTEROL 2.5 MG/3 ML NEB SOL NEB PRN (23:09)
--- NOTE | 2024-11-13 23:09 | P.HP ---
Certification for Inpatient Patient admitted to: Inpatient With expected LOS: >2 Midnights Practitioner: I am a practitioner with admitting privileges, knowledge of patient current condition, hospital course, and medical plan of care. Services: Services provided to patient in accordance with Admission requirements found in Title 42 Section 412.3 of the Code of Federal Regulations Patient History Date of Service: 11/14/24 Reason for admission: SOB History of Present Illness: 68 yrs old Female with past medical history of COPD, chronic hypoxic respiratory failure on 2 to 4 L nasal cannula emphysema, hypertension, hyperlipidemia, diabetes, and CAD status post stents brought to ER with worsening of shortness of breath. Started 3 days ago and has been progressively getting worse. And was brought to ER. Denies any fever or chills. No chest pain. Denies any nausea vomiting or diarrhea. The patient was assessed in the ER and was admitted for further management of COPD exacerbation. Allergies diazepam [From Valium] Adverse Reaction (Verified 08/04/22 01:38) "makes me stupid, too strong for me" diphenhydramine [From Benadryl] Adverse Reaction (Verified 08/04/22 01:38) "turns my nerve inside out" lorazepam Adverse Reaction (Verified 08/04/22 01:38) stomach issue Home medications list reviewed: Yes Home Medications: Albuterol Inhaler [Ventolin Inhaler*] 2 puff IH Q4HP PRN 08/04/22 Albuterol Neb [Proventil 0.083% Neb Soln] 1 amp NEB Q4HP PRN 08/04/22 Clopidogrel Bisulfate [Plavix*] 75 mg PO DAILY 08/04/22 Fluoxetine HCl [Prozac] 20 mg PO DAILY 08/04/22 Guaifenesin [Mucinex] 1,200 mg PO BID 08/04/22 Insulin Glargine,Hum.rec.anlog [Lantus] 23 unit SQ BID 08/04/22 Ipratropium/Albuterol Sulfate [Iprat-Albut 0.5-3(2.5) mg/3 ml] 1 amp NEB Q4HP PRN 08/04/22 Lamotrigine [Lamictal] 100 mg PO BID 08/04/22 Linagliptin [Tradjenta] 5 mg PO DAILY 08/04/22 Roflumilast [Daliresp*] 500 mcg PO DAILY 08/04/22 Trazodone HCl [Desyrel] 100 mg PO BEDTIME 08/04/22 predniSONE [Prednisone*] 10 mg PO DAILY 08/04/22 Atorvastatin Calcium 1 tab PO BEDTIME 11/20/22 Insulin Aspart [Novolog Flexpen] See Protocol SQ BID 11/20/22 Cariprazine HCl [Vraylar] 3 mg PO DAILY 04/26/24 Hydroxyzine HCl [Atarax] 20 mg PO BIDP PRN 09/10/24 clonazePAM [Klonopin] 0.5 mg PO BIDP PRN #60 tab 09/13/24 Azithromycin 250 mg PO DAILY 30 Days #15 tab 10/08/24 Doxycycline Hyclate 100 mg PO BID 11/14/24 Empagliflozin [Jardiance] 10 mg PO DAILY 11/14/24 Metoprolol Succinate [Toprol Xl] 25 mg PO DAILY 11/14/24 - Past Medical/Surgical History Diabetic: Yes Past Medical History: Reviewed- Non-Contributory -: COPD -: HTN -: Diabetes mellitus type 2 -: CAD -: Depression -: bipolar -: anxiety -: neuropathy Past Surgical History: Reviewed- Non-Contributory -: -: Coronary stents x 2 Psychosocial/ Personal History: Patient is retired, lives with her daughter - Family History Father Notes: Patient is adopted Mother Notes: patient is adopted - Social History Smoking Status: Former smoker Alcohol use: No CD- Drugs: No Caffeine use: Yes Review of Systems 10-point ROS is otherwise unremarkable Physical Examination - Vital Signs Temperature: 98.2 F Blood Pressure: 158/75 Pulse: 110 Respirations: 22 Pulse Ox (%): 94 - Physical Exam General: Alert, Oriented x3, Moderate distress HEENT: Atraumatic, Normocephalic Neck: Supple Respiratory: Diminished, Crackles/rales, Expiratory wheezes Cardiovascular: Normal pulses, Regular rate/rhythm Capillary refill: <2 Seconds Gastrointestinal: Soft and benign, W/out hepatosplenomegaly Musculoskeletal: No clubbing, No swelling Integumentary: No rashes Neurological: Other (Alert awake nonfocal) Lymphatics: No axilla or inguinal lymphadenopathy - Studies Laboratory Data (last 24 hrs) 11/13/24 11/13/24 11/13/24 18:38 18:38 18:38 WBC 8.00 Hgb 12.6 Hct 37.8 Plt Count 264 PT 10.3 INR 0.91 APTT 24.7 L Sodium 138 Potassium 3.8 BUN 19 H Creatinine 0.77 Glucose 248 H Total Bilirubin 0.3 AST 21 ALT 28 Alkaline Phosphatase 61 Assessment and Plan - Plan COPD exacerbation Monitor closely on telemetry Started on bronchodilators Oxygen supplementation Steroids added Chest x-ray findings noted Pulmonology consult if not better in the a.m. Acute on chronic hypoxic respiratory failure Oxygen supplementation Will try to wean down oxygen requirement Monitor closely on telemetry Hypertension Antihypertensives titrated Continue home medications and titrate as needed Hyperlipidemia Continue statin Diabetes Insulin sliding scale Accu-Chek before every meal and at bedtime CAD status post stents Continue home medications and titrate as needed Patient denies any chest pain Anxiety Continue home medications GI/DVT prophylaxis Advanced directive full code Discharge Plan: Home Plan to discharge in: 48 Hours - Advance Directives Does patient have a Living Will: Yes Does patient have a Durable POA for Healthcare: Yes - Code Status/Comfort Care Code Status: Full Code Time Spent Managing Pts Care (In Minutes): 48
[2024-11-13] MEDS: METHYLPREDNISOLONE 125 MG INJ IV SCH (23:13)
[2024-11-14] MEDS ORDERED: IPRATROPIUM BROM 0.5MG/2.5ML ONE (00:03)
[2024-11-14] MEDS ORDERED: ALBUTEROL 2.5 MG/3 ML NEB SOL ONE (00:03)
[2024-11-14] MEDS: ALBUTEROL 2.5 MG/3 ML NEB SOL NEB SCH (00:05)
[2024-11-14] MEDS: IPRATROPIUM BROM 0.5MG/2.5ML NEB SCH (00:05)
[2024-11-14 01:11] VITALS: BMI 21.7
[2024-11-14] MEDS: LORazepam 2 MG/ML VIAL IV ONE (03:43)
[2024-11-14] MEDS: clonazePAM 0.5 MG TAB ONE (03:46)
[2024-11-14] MEDS: clonazePAM 0.5 MG TAB PO ONE (03:48)
[2024-11-14] MEDS: LEVALBUTEROL 1.25 MG/3 ML NEB NEB ONE (03:53)
[2024-11-14] MEDS: LEVALBUTEROL 1.25 MG/3 ML NEB ONE (03:56)
[2024-11-14] MEDS: IPRATROPIUM BROM 0.5MG/2.5ML ONE (04:02)
[2024-11-14] MEDS: IPRATROPIUM BROM 0.5MG/2.5ML NEB STA (04:05)
[2024-11-14] MEDS: METOPROLOL TAR 25 MG TAB PO ONE (04:16)
--- NOTE | 2024-11-14 06:13 | P.PN ---
Subjective Date of Service: 11/14/24 Chief Complaint: SOB Subjective: No new changes Review of Systems 10-point ROS is otherwise unremarkable Physical Examination - Vital Signs Temperature: 98.6 F Blood Pressure: 152/64 Pulse: 131 Respirations: 17 Pulse Ox (%): 96 - Physical Exam General: Alert, In no apparent distress, Oriented x3 HEENT: Atraumatic, Normocephalic Neck: Supple Respiratory: Diminished, Crackles/rales, Expiratory wheezes Cardiovascular: Regular rate/rhythm, Normal S1 S2 Capillary refill: <2 Seconds Gastrointestinal: Soft and benign, W/out hepatosplenomegaly Musculoskeletal: No clubbing, No swelling Integumentary: No rashes Neurological: Normal gait, Normal speech, Normal strength at 5/5 x4 extr, Normal tone, Cranial nerves 3-12 intact Lymphatics: No axilla or inguinal lymphadenopathy - Studies Laboratory Data (last 24 hrs) 11/13/24 11/13/24 11/13/24 18:38 18:38 18:38 WBC 8.00 Hgb 12.6 Hct 37.8 Plt Count 264 PT 10.3 INR 0.91 APTT 24.7 L Sodium 138 Potassium 3.8 BUN 19 H Creatinine 0.77 Glucose 248 H Total Bilirubin 0.3 AST 21 ALT 28 Alkaline Phosphatase 61 Assessment And Plan - Plan COPD exacerbation Monitor closely on telemetry Started on bronchodilators Oxygen supplementation Steroids added Chest x-ray findings noted Pulmonology consult if not better in the a.m. Acute on chronic hypoxic respiratory failure Oxygen supplementation Will try to wean down oxygen requirement Monitor closely on telemetry Hypertension Antihypertensives titrated Continue home medications and titrate as needed Hyperlipidemia Continue statin Diabetes Insulin sliding scale Accu-Chek before every meal and at bedtime CAD status post stents Continue home medications and titrate as needed Patient denies any chest pain Anxiety Continue home medications GI/DVT prophylaxis Advanced directive full code Discharge Plan: Home Plan to discharge in: 48 Hours - Code Status/Comfort Care Code Status: Full Code Time Spent Managing PTS Care (In Minutes): 48
[2024-11-14 06:31] LABS: Absolute Lymphocytes (CBC) 0.3 K/uL (0.7-4.9); Hematocrit 37.8 % (36.0-45.0); Hemoglobin 12.5 g/dL (12.0-15.0); MCH 29.6 pg (27.0-35.0); MCHC 33.1 g/dL (32.0-36.0); MCV 89.4 fL (80-100); MPV 7.8 fL (7.6-11.3); Nucleated RBC Absolute Count 0.0 (0-0); Nucleated Red Blood Cells % 0.0 % (0-0); RBC Red Blood Cell Count 4.23 M/uL (3.86-4.86); White Blood Count 10.10 thou/uL (4.3-10.9)
[2024-11-14 06:49] LABS: ALT/SGPT 29.0 U/L (13-56); AST/SGOT 17.0 U/L (15-37); Albumin 3.3 g/dL (3.4-5.0); Albumin/Globulin Ratio 1.0 (1.1-1.8); Alkaline Phosphatase 57.0 U/L (45-117); Anion Gap 5.4 mEq/L (5.0-15.0); BUN Blood Urea Nitrogen 21.0 mg/dL (7-18); Globulin 3.3 g/dL (2.3-3.5); Glucose Level 291.0 mg/dL (74-106); Potassium 4.4 mEq/L (3.5-5.1)
[2024-11-14 08:53] LABS: Blood Morphology Comment NOT SEEN (NOT SEEN); White Blood Cell Scan OK (OK)
[2024-11-14] MEDS: ENOXAPARIN 40 MG/0.4 ML SQ SCH (09:30)
[2024-11-14] MEDS ORDERED: clonazePAM 0.5 MG TAB PO PRN (12:35)
--- NOTE | 2024-11-14 12:35 | P.CNS ---
Date of Consult: 11/14/24 Reason for Consult: COPD exacerbation Chief Complaint: SOB History of Present Illness: Patient is 68 years of age well-known to me terminal COPD recurrent exacerbation very debilitated apparently she became anxious more short of breath ended up here in the hospital apart from being a little tachycardic no other change compliant with her medication Allergies diazepam [From Valium] Adverse Reaction (Verified 08/04/22 01:38) "makes me stupid, too strong for me" diphenhydramine [From Benadryl] Adverse Reaction (Verified 08/04/22 01:38) "turns my nerve inside out" lorazepam Adverse Reaction (Verified 08/04/22 01:38) stomach issue Home Medications: Albuterol Inhaler [Ventolin Inhaler*] 2 puff IH Q4HP PRN 08/04/22 Albuterol Neb [Proventil 0.083% Neb Soln] 1 amp NEB Q4HP PRN 08/04/22 Clopidogrel Bisulfate [Plavix*] 75 mg PO DAILY 08/04/22 Fluoxetine HCl [Prozac] 20 mg PO DAILY 08/04/22 Guaifenesin [Mucinex] 1,200 mg PO BID 08/04/22 Insulin Glargine,Hum.rec.anlog [Lantus] 23 unit SQ BID 08/04/22 Ipratropium/Albuterol Sulfate [Iprat-Albut 0.5-3(2.5) mg/3 ml] 1 amp NEB Q4HP PRN 08/04/22 Lamotrigine [Lamictal] 100 mg PO BID 08/04/22 Linagliptin [Tradjenta] 5 mg PO DAILY 08/04/22 Roflumilast [Daliresp*] 500 mcg PO DAILY 08/04/22 Trazodone HCl [Desyrel] 100 mg PO BEDTIME 08/04/22 predniSONE [Prednisone*] 10 mg PO DAILY 08/04/22 Atorvastatin Calcium 1 tab PO BEDTIME 11/20/22 Insulin Aspart [Novolog Flexpen] See Protocol SQ BID 11/20/22 Cariprazine HCl [Vraylar] 3 mg PO DAILY 04/26/24 Hydroxyzine HCl [Atarax] 20 mg PO BIDP PRN 09/10/24 clonazePAM [Klonopin] 0.5 mg PO BIDP PRN #60 tab 09/13/24 Azithromycin 250 mg PO DAILY 30 Days #15 tab 10/08/24 Doxycycline Hyclate 100 mg PO BID 11/14/24 Empagliflozin [Jardiance] 10 mg PO DAILY 11/14/24 Metoprolol Succinate [Toprol Xl] 25 mg PO DAILY 11/14/24 - Past Medical/Surgical History Diabetic: Yes -: COPD -: HTN -: Diabetes mellitus type 2 -: CAD -: Depression -: bipolar -: anxiety -: neuropathy -: restless leg syndrome -: -: Coronary stents x 2 Psychosocial/ Personal History: Patient is retired, lives with her daughter - Family History Father Notes: Patient is adopted Mother Notes: patient is adopted - Social History Smoking Status: Current every day smoker Alcohol use: No CD- Drugs: No Caffeine use: Yes Place of Residence: Home Review of Systems 10-point ROS is otherwise unremarkable General: Weakness Respiratory: Shortness of Breath Physical Examination Temp Pulse Resp BP Pulse Ox 97.6 F 86 16 149/78 H 95 11/14/24 08:00 11/14/24 08:00 11/14/24 08:00 11/14/24 08:00 11/14/24 08:00 General: Alert, Oriented x3 HEENT: Atraumatic Neck: Supple Respiratory: Clear to auscultation bilaterally, Diminished Cardiovascular: No edema, Normal pulses, Regular rate/rhythm Laboratory Data (last 24 hrs) 11/13/24 11/13/24 11/13/24 18:38 18:38 18:38 WBC 8.00 Hgb 12.6 Hct 37.8 Plt Count 264 PT 10.3 INR 0.91 APTT 24.7 L Sodium 138 Potassium 3.8 BUN 19 H Creatinine 0.77 Glucose 248 H Total Bilirubin 0.3 AST 21 ALT 28 Alkaline Phosphatase 61 - Problems (1) COPD exacerbation Current Visit: No Status: Acute Plan: Patient is 68 years of age admitted with COPD exacerbation complaining of anxiety spells compliant with hydroxyzine and antidepressants also uses all her inhalers resume beta-blockers chest x-ray shows COPD changes labs unremarkable vital signs oxygenation stable stable for discharge
[2024-11-14] MEDS: METOPROLOL XL 25 MG TAB PO SCH (13:47)
[2024-11-14] MEDS ORDERED: hydrOXYzine HCL 25 MG TAB PO PRN (16:25)
[2024-11-14] MEDS: TRAZODONE 50 MG TABLET PO SCH (20:45)
[2024-11-14] MEDS: ACETAMINOPHEN 325 MG TABLET PO PRN (20:46)
[2024-11-14] MEDS: ATORVASTATIN 40 MG TAB PO SCH (20:46)
[2024-11-14] MEDS: INSULIN GLARGINE 100 UNIT/ML SQ SCH (20:46)
[2024-11-14] MEDS: lamoTRIgine 100 MG TAB PO SCH (20:46)
[2024-11-14] MEDS: predniSONE 10 MG TAB PO SCH (20:46)
[2024-11-15 05:14] VITALS: TEMP 97.9
[2024-11-15] MEDS: LINAGLIPTIN 5 MG PO SCH (09:00)
[2024-11-15] MEDS: CARIPRAZINE HCL 3 MG PO SCH (09:00)
[2024-11-15 09:24] VITALS: O2SAT 97
[2024-11-15] MEDS: FLUOXETINE 20 MG CAP PO SCH (10:20)
[2024-11-15] MEDS: CLOPIDOGREL 75 MG TABLET PO SCH (10:20)
[2024-11-15] MEDS: ROFLUMILAST 500 MCG TABLET PO SCH (10:20)
[2024-11-15] MEDS: EMPAGLIFLOZIN 10 MG TABLET PO SCH (10:21)
[2024-11-15 12:14] VITALS: BP 171/84
[2024-11-15] MEDS ORDERED: AZITHROMYCIN 250 MG TAB PO SCH (17:00)
== END 2024-11-15 13:11 | disposition home or self-care (01) | DRG 189 ==
LOC: ER 18:04 → ERHOLD 23:09 → 2ND 11-14 00:06
PROVIDERS: ADMIT Family Medicine; ATTEND Hospitalist
DX: J96.21 Acute and chronic respiratory failure with hypoxia (principal); J44.1 Chronic obstructive pulmonary disease with (acute) exacerbation; F41.9 Anxiety disorder, unspecified; G25.81 Restless legs syndrome; E78.00 Pure hypercholesterolemia, unspecified; E11.40 Type 2 diabetes mellitus with diabetic neuropathy, unspecified; I10 Essential (primary) hypertension; I25.10 Atherosclerotic heart disease of native coronary artery without angina pectoris; F17.210 Nicotine dependence, cigarettes, uncomplicated; Z95.5 Presence of coronary angioplasty implant and graft; Z88.8 Allergy status to other drugs, medicaments and biological substances; Z99.81 Dependence on supplemental oxygen; Z79.02 Long term (current) use of antithrombotics/antiplatelets; Z79.4 Long term (current) use of insulin; Z79.52 Long term (current) use of systemic steroids; Z79.899 Other long term (current) drug therapy
CPT/HCPCS: 36415; 71045; 80053; 82947; 83605; 83880; 84484; 85025; 85610; 85730; 87040; 93005; 94640; 94760; 99285; J1650; J2919; J3475; J7512; J7613; J7614; J7644